=== PATIENT | female | born 1935 | race Hispanic/Latino ===

== ENCOUNTER 2016-06-17 15:19 | Inpatient (IN) | payer OTHER ==
[2016-06-17 18:38] VITALS: BMI 26.5
[2016-06-17] MEDS ORDERED: Pneumococcal 23-Valent Vaccine IM ONE (18:38)
[2016-06-17] MEDS ORDERED: Influenza Vaccine 45 MCG/0.5 ml IM ONE (18:38)
[2016-06-17] MEDS: Insulin Reg-LOW-Coverage SC SCH ×2 (18:56→21:42)
[2016-06-17] MEDS: Budesonide 0.5 mg/2 ml Inhal Susp UD IH SCH (19:58)
[2016-06-17] MEDS: Arformoterol 15 mcg/2 ml Inh Sol IH SCH (19:58)
[2016-06-17] MEDS ORDERED: Linezolid 600 mg in D5W 300 ml 300 ML IVPB SCH (22:00)
[2016-06-18] MEDS: Levothyroxine 50 MCG TAB PO SCH (05:24)
[2016-06-18] MEDS: Linezolid 600 mg in D5W 300 ml 300 ML IVPB SCH ×2 (05:25→17:44)
[2016-06-18] MEDS: Budesonide 0.5 mg/2 ml Inhal Susp UD IH SCH (07:16)
[2016-06-18] MEDS: Arformoterol 15 mcg/2 ml Inh Sol IH SCH ×2 (07:16→20:32)
[2016-06-18] MEDS: Insulin Reg-LOW-Coverage SC SCH ×4 (07:20→22:37)
[2016-06-18] MEDS ORDERED: Albuterol-Ipratrop 3 mg / 0.5 (3 ml) UD IH PRN (07:29)
[2016-06-18] MEDS: POLYETHYLENE GLYCOL 3350 17 GM/Dose PACKET PO SCH (10:27)
--- NOTE | 2016-06-18 10:57 | CP.PCM.CON ---
History of Present Illness - History of Present Illness History of Present Illness: 81 year old female with PMH of HTN, DM, CAD with chronic CHF, ESRD on HD initially came in to [facility] with cough and SOB and is being treated for probable healthcare-associated pneumonia. She has improved on antibiotics and is now transferred to [facility] for continued medical therapy and physical rehabilitation. Infectious diseases consult is requested to continue her antibiotic therapy. Currently she is feeling somewhat better with less cough and less shortness of breath. She has no fevers, no headache or dizziness , no blurring of vision, no chest pain, no dysuria, no hematuria, no diarrhea, no abdominal pain. Review of Systems - Review of Systems All systems: reviewed and no additional remarkable complaints except (as per HPI ) Past Patient History - Infectious Disease Hx of Infectious Diseases: None - Tetanus Immunizations Tetanus Immunization: Unknown - Past Social History Smoking Status: Never Smoked - CARDIAC Hx Cardiac Disorders: Yes Hx Congestive Heart Failure: Yes Hx Hypercholesterolemia: Yes Hx Hypertension: Yes - PULMONARY Hx Chronic Obstructive Pulmonary Disease (COPD): Yes - NEUROLOGICAL Hx Neurological Disorder: Yes Hx Dizziness: Yes Other/Comment: numbness tingling left leg and left foot - HEENT Hx HEENT Problems: Yes Hx Cataracts: Yes (b/l sx) - RENAL Hx Renal Failure: Yes - ENDOCRINE/METABOLIC Hx Diabetes Mellitus Type 2: Yes Hx Hypothyroidism: Yes - HEMATOLOGICAL/ONCOLOGICAL Hx Blood Disorders: Yes Hx Anemia: Yes - INTEGUMENTARY Hx Dermatological Problems: Yes Other/Comment: age spots to face chest arms legs - MUSCULOSKELETAL/RHEUMATOLOGICAL Hx Falls: Yes (past) - GASTROINTESTINAL Hx Gastrointestinal Disorders: Yes (DIVERTICULOSIS,DIVERTICULITIS,CONSTIPATION, RECTAL BLEED,HEMORRHOIDS) - GENITOURINARY/GYNECOLOGICAL Hx Genitourinary Disorders: Yes (ESRD ON HD,UTI,OLIGURIA) Hx Reproductive Disorders: No - PSYCHIATRIC Hx Substance Use: No - SURGICAL HISTORY Hx Cardiac Catheterization: Yes Hx Coronary Stent: Yes (left carotid) Hx Joint Replacement: Yes (left hip replacement) Other/Comment: left arm av shunt - ANESTHESIA Hx Anesthesia Reactions: No Hx Malignant Hyperthermia: No Meds Allergies/Adverse Reactions: Allergies Allergy/AdvReac Type Severity Reaction Status Date / Time ceftriaxone Allergy ITCHING Verified 06/17/16 16:59 - Medications Medications: Current Medications Acetaminophen (Tylenol 325mg Tab) 650 mg PO Q6H PRN PRN Reason: Pain, moderate (4-7) Amlodipine Besylate (Norvasc) 5 mg PO 0800 [facility] Arformoterol Tartrate (Brovana) 15 mcg IH [id number] [facility] Last Admin: 06/17/16 19:58 Dose: 15 mcg Aspirin (Aspirin Chewable) 81 mg PO 0800 [facility] Atorvastatin Calcium (Lipitor) 20 mg PO DIN [facility] Last Admin: 06/17/16 18:56 Dose: Not Given Budesonide (Pulmicort Respules) 0.5 mg IH [id number] [facility] Last Admin: 06/17/16 19:58 Dose: 0.5 mg Calcium Acetate (Phoslo) 1,334 mg PO TID [facility] Last Admin: 06/17/16 18:56 Dose: Not Given Carvedilol (Coreg) 25 mg PO 0800,1800 [facility] Last Admin: 06/17/16 18:55 Dose: Not Given Fenofibrate (Tricor) 145 mg PO DAILY [facility] Gabapentin (Neurontin) 100 mg PO HS [facility] PRN Reason: Protocol Last Admin: 06/17/16 21:43 Dose: 100 mg Aztreonam 500 mg/ Sodium (Chloride) 100 mls @ 100 mls/hr IVPB Q8 [facility] PRN Reason: Protocol Stop: 06/20/16 22:01 Last Admin: 06/18/16 05:23 Dose: 100 mls/hr Linezolid (Zyvox 600mg/300ml D5w) 300 mls @ 200 mls/hr IVPB 0600,1800 [facility] PRN Reason: Protocol Stop: 06/21/16 06:01 Last Admin: 06/18/16 05:25 Dose: 200 mls/hr Insulin Human Regular (Humulin R Low) 0 units SC ACHS [facility] PRN Reason: Protocol Last Admin: 06/17/16 21:42 Dose: Not Given Isosorbide Mononitrate (Imdur) 30 mg PO 0600 [facility] Last Admin: 06/18/16 05:24 Dose: 30 mg Levothyroxine Sodium (Synthroid) 50 mcg PO 0600 [facility] Last Admin: 06/18/16 05:24 Dose: 50 mcg Ondansetron HCl (Zofran Inj) 4 mg IVP Q6H PRN PRN Reason: Nausea/Vomiting Polyethylene Glycol (Miralax) 17 gm PO DAILY [facility] Prednisone (Prednisone Tab) 20 mg PO 0800 [facility] Physical Exam - Constitutional Appears: Non-toxic, No Acute Distress - Head Exam Head Exam: NORMAL INSPECTION - ENT Exam ENT Exam: Mucous Membranes Moist - Neck Exam Neck exam: Negative for: Lymphadenopathy, Meningismus - Respiratory Exam Respiratory Exam: Decreased Breath Sounds (with some crackles at the bases) - Cardiovascular Exam Cardiovascular Exam: +S1, +S2 - GI/Abdominal Exam GI & Abdominal Exam: Soft. absent: Tenderness Results - Vital Signs Recent Vital Signs: Last Vital Signs Temp 97.8 F 06/18/16 06:00 Pulse 52 L 06/18/16 06:00 Resp 18 06/18/16 06:00 BP 157/58 H 06/18/16 06:00 Pulse Ox 99 06/18/16 06:00 - Labs Labs: Laboratory Results - last 24 hr 06/18/16 05:14 POC Glucose (mg/dL) 103 Assessment & Plan - Assessment and Plan (Free Text) Plan: Assessment Consider healthcare-associated pneumonia (right upper lobe, bilateral lower lobes), improving clinically HTN DM CAD with chronic CHF ESRD on HD Plan continue Zyvox and Azactam (day 5); blood cx are negative - will target up to 7 days of therapy and will start considering d/c of antibiotics in the next 24-48 hours as long as she continues to be clinically stable and improve will continue to monitor platelet count which has not changed significantly Will continue to follow clinically
[2016-06-18] MEDS: Albuterol-Ipratrop 3 mg / 0.5 (3 ml) UD IH SCH ×3 (13:19→20:32)
[2016-06-18] MEDS: Oxycodone/Acetaminophen 2.5/325 mg Tab PO PRN (16:05)
--- NOTE | 2016-06-18 16:41 | HP ---
HISTORY OF PRESENT ILLNESS: This is an 81-year-old female admitted to [facility] with a history of shortness of breath and chest discomfort. She was treated for volume overload and bilater al pleural effusions and probable hospital community-acquired pneumonia. The patient has been transf erred to the transitional care unit where she will continue her antibiotic therapy and receive occupa tional and physical therapy. PAST MEDICAL HISTORY: Carotid disease, arteriosclerotic heart disease, ischemic heart disease, hyper lipidemia, peripheral neuropathy, diabetes mellitus insulin-dependent, constipation, diverticulosis, diverticulitis, hypothyroid disease, COPD. SOCIAL HISTORY: Nonsmoker, nondrinker, nondrug user. ALLERGIES: CEFTRIAXONE. CURRENT MEDICATIONS: Consist of Ecotrin 81 mg daily, Azactam q.8, Brovana 15 mcg q.12, Coreg 25 mg b .i.d., albuterol treatments q.6 hours and q.2 p.r.n., insulin sliding scale, Imdur 30 mg daily, Lipit or 20 mg at dinnertime, MiraLax 17 grams daily, Neurontin 100 mg at bedtime, Norvasc 5 mg daily, Phos Lo 1334 mg with meals, prednisone 20 mg daily, Protonix IV q.12, Synthroid 50 mcg daily, Tricor 145 m g daily, Tylenol 325 two tabs q.6 for moderate pain, Zofran p.r.n. q.6 and Zyvox b.i.d. PHYSICAL EXAMINATION: NEUROLOGIC: The patient is alert and oriented x 3. NECK: Supple. LUNGS: Show some diminished breath sounds at the right base. HEART: Has an S1, S2 rhythm. ABDOMEN: Soft, scaphoid with positive bowel sounds. EXTREMITIES: No evidence of edema. LABORATORY DATA: Her morning blood sugar was 103. Will initiate chest PT for the consolidation at the base of the patient's lungs with continuation of her respiratory therapy. She will continue to be followed by renal, GI, cardiology, pulmonary and in fectious disease. She is being dialyzed on a daily basis, as the patient finds at times that there i s a decrease in her blood pressure when she goes on to dialysis and they not able to fully dialyze th e patient. Continue current level of supportive care. Shavonne Ascencio MD cc: [id number] TT: 06/18/2016 16:41:06 dn
[2016-06-19] MEDS: Albuterol-Ipratrop 3 mg / 0.5 (3 ml) UD IH SCH ×2 (02:05→07:16)
[2016-06-19] MEDS: Linezolid 600 mg in D5W 300 ml 300 ML IVPB SCH ×2 (05:06→19:16)
[2016-06-19] MEDS: Levothyroxine 50 MCG TAB PO SCH (05:07)
[2016-06-19] MEDS: Pantoprazole 20 mg EC Tab PO SCH (05:39)
[2016-06-19] MEDS: Insulin Reg-LOW-Coverage SC SCH ×4 (06:44→22:17)
[2016-06-19] MEDS: Arformoterol 15 mcg/2 ml Inh Sol IH SCH ×2 (07:16→20:36)
[2016-06-19] MEDS ORDERED: Pantoprazole 20 mg EC Tab PO SCH (07:30)
--- NOTE | 2016-06-19 08:52 | CP.PCM.PN ---
Subjective - Date & Time of Evaluation Date of Evaluation: 06/19/16 Time of Evaluation: 08:00 - Subjective Subjective: Stable in TCU, eating breakfast. Still feels weak with int. SOB. V/S noted. PE: Lungs: rhonchi, decreased BS bases Cor.: S1S2 Abd.: soft Ext.: no edema Neuro.: alert Objective - Vital Signs/Intake and Output Vital Signs (last 24 hours): Temp Pulse Resp BP Pulse Ox 98 F 53 L 20 140/51 L 99 06/18/16 15:54 06/19/16 08:05 06/18/16 15:54 06/19/16 08:05 06/18/16 12:03 - Medications Medications: Current Medications Acetaminophen (Tylenol 325mg Tab) 650 mg PO Q6H PRN PRN Reason: Pain, moderate (4-7) Last Admin: 06/18/16 14:40 Dose: 650 mg Albuterol/Ipratropium (Duoneb 3 Mg/0.5 Mg (3 Ml) Ud) 3 ml IH [id number] [facility] Last Admin: 06/19/16 07:16 Dose: 3 ml Albuterol/Ipratropium (Duoneb 3 Mg/0.5 Mg (3 Ml) Ud) 3 ml IH Q2H PRN PRN Reason: Shortness of Breath Last Admin: 06/18/16 16:05 Dose: 3 ml Amlodipine Besylate (Norvasc) 5 mg PO 0800 [facility] Last Admin: 06/19/16 08:05 Dose: Not Given Arformoterol Tartrate (Brovana) 15 mcg IH [id number] [facility] Last Admin: 06/19/16 07:16 Dose: 15 mcg Aspirin (Aspirin Chewable) 81 mg PO 0800 [facility] Last Admin: 06/19/16 08:03 Dose: 81 mg Atorvastatin Calcium (Lipitor) 20 mg PO DIN [facility] Last Admin: 06/18/16 16:09 Dose: 20 mg Calcium Acetate (Phoslo) 1,334 mg PO WM [facility] Last Admin: 06/19/16 08:06 Dose: 1,334 mg Carvedilol (Coreg) 25 mg PO 0800,1800 [facility] Last Admin: 06/19/16 08:04 Dose: Not Given Fenofibrate (Tricor) 145 mg PO DAILY [facility] Last Admin: 06/18/16 10:25 Dose: 145 mg Gabapentin (Neurontin) 100 mg PO HS [facility] PRN Reason: Protocol Last Admin: 06/18/16 21:30 Dose: 100 mg Aztreonam 500 mg/ Sodium (Chloride) 100 mls @ 100 mls/hr IVPB Q8 [facility] PRN Reason: Protocol Stop: 06/20/16 22:01 Last Admin: 06/19/16 05:06 Dose: 100 mls/hr Linezolid (Zyvox 600mg/300ml D5w) 300 mls @ 200 mls/hr IVPB 0600,1800 [facility] PRN Reason: Protocol Stop: 06/21/16 06:01 Last Admin: 06/19/16 05:06 Dose: 200 mls/hr Insulin Human Regular (Humulin R Low) 0 units SC ACHS [facility] PRN Reason: Protocol Last Admin: 06/19/16 06:44 Dose: 2 units Isosorbide Mononitrate (Imdur) 30 mg PO 0600 [facility] Last Admin: 06/19/16 05:07 Dose: 30 mg Levothyroxine Sodium (Synthroid) 50 mcg PO 0600 [facility] Last Admin: 06/19/16 05:07 Dose: 50 mcg Oxycodone/Acetaminophen (Percocet 2.5/325 Mg Tab) 1 tab PO Q6H PRN PRN Reason: Pain, severe (8-10) Last Admin: 06/18/16 16:05 Dose: 1 tab Pantoprazole Sodium (Protonix Ec Tab) 20 mg PO 0630 [facility] Last Admin: 06/19/16 05:39 Dose: 20 mg Polyethylene Glycol (Miralax) 17 gm PO DAILY [facility] Last Admin: 06/18/16 10:27 Dose: Not Given Prednisone (Prednisone Tab) 20 mg PO 0800 [facility] Last Admin: 06/19/16 08:06 Dose: 20 mg Assessment and Plan - Assessment and Plan (Free Text) Plan: Assessment: Dyspnea Pleural Effusions CKD/HD: currently daily HD/UF CAD CP/+ trops Moderate MR HBP Diabetes H/O GIB/angiodysplasias/diverticulitis Anemia PN Hypothyroidism Plan: As per renal: daily HD/UF > neg. balance As per Dr. Ascencio, Pulm., ID, GI. Monitor: labs, BSs, I/O, CBC, etc. Will follow.
[2016-06-19] MEDS: POLYETHYLENE GLYCOL 3350 17 GM/Dose PACKET PO SCH (09:37)
--- NOTE | 2016-06-19 11:00 | PN ---
DATE: 06/19/2016 The patient is doing well on transitional care unit without any significant change. She does have intermittent shortness of breath and wheezing. She is taking her inhaled bronchodilators. She is presumed to have a community- acquired pneumonia and is being evaluated now by infectious disease specialist. PAST HISTORY: Has been reviewed. She has a history of ischemic heart disease, diabetes mellitus, diverticular disease, and COPD. PHYSICAL EXAMINATION: GENERAL: She is resting comfortably, in no acute respiratory distress. LUNGS: Show diminished breath sounds throughout, but no wheezing is appreciated. HEART: Regular rhythm. S1, S2 without murmur, gallop, or rub. ABDOMEN: Soft. Bowel sounds normoactive without mass, guarding, rebound, or organomegaly. : No urinary issues SKIN: No rashes. Dry, intact EXTREMITIES: Reveal no clubbing, cyanosis, or edema. There is negative Homans ' sign. CLINICAL IMPRESSION: 1. Chronic obstructive pulmonary disease. 2. Possible pneumonitis. 3. Intermittent bronchospasm. PLAN: Will await further recommendations by infectious disease and decide regarding antibiotics. Will continue bronchodilators as ordered. We will make appropriate adjustments as necessary. Thank you for allowing me to participate in the care of this patient. We will follow closely with you. Jamie Malone MD cc: [phone] TT: 06/19/2016 11:00:04 Confirmation # [id number] Dictation # [id number] jn MELANIE
--- NOTE | 2016-06-19 16:20 | CP.PCM.PN ---
Subjective - Date & Time of Evaluation Date of Evaluation: 06/19/16 Time of Evaluation: 07:50 - Subjective Subjective: Comfortable in bed, not in distress, much improved cough and not short of breath at rest. Objective - Vital Signs/Intake and Output Vital Signs (last 24 hours): Temp Pulse Resp BP Pulse Ox 98 F 53 L 20 140/51 L 99 06/18/16 15:54 06/19/16 08:05 06/18/16 15:54 06/19/16 08:05 06/18/16 12:03 - Medications Medications: Current Medications Acetaminophen (Tylenol 325mg Tab) 650 mg PO Q6H PRN PRN Reason: Pain, moderate (4-7) Last Admin: 06/18/16 14:40 Dose: 650 mg Albuterol/Ipratropium (Duoneb 3 Mg/0.5 Mg (3 Ml) Ud) 3 ml IH [id number] [facility] Last Admin: 06/19/16 07:16 Dose: 3 ml Albuterol/Ipratropium (Duoneb 3 Mg/0.5 Mg (3 Ml) Ud) 3 ml IH Q2H PRN PRN Reason: Shortness of Breath Last Admin: 06/18/16 16:05 Dose: 3 ml Amlodipine Besylate (Norvasc) 5 mg PO 0800 [facility] Last Admin: 06/19/16 08:05 Dose: Not Given Arformoterol Tartrate (Brovana) 15 mcg IH [id number] [facility] Last Admin: 06/19/16 07:16 Dose: 15 mcg Aspirin (Aspirin Chewable) 81 mg PO 0800 [facility] Last Admin: 06/19/16 08:03 Dose: 81 mg Atorvastatin Calcium (Lipitor) 20 mg PO DIN [facility] Last Admin: 06/18/16 16:09 Dose: 20 mg Calcium Acetate (Phoslo) 1,334 mg PO WM [facility] Last Admin: 06/19/16 08:06 Dose: 1,334 mg Carvedilol (Coreg) 25 mg PO 0800,1800 [facility] Last Admin: 06/19/16 08:04 Dose: Not Given Fenofibrate (Tricor) 145 mg PO DAILY [facility] Last Admin: 06/18/16 10:25 Dose: 145 mg Gabapentin (Neurontin) 100 mg PO HS [facility] PRN Reason: Protocol Last Admin: 06/18/16 21:30 Dose: 100 mg Aztreonam 500 mg/ Sodium (Chloride) 100 mls @ 100 mls/hr IVPB Q8 [facility] PRN Reason: Protocol Stop: 06/20/16 22:01 Last Admin: 06/19/16 05:06 Dose: 100 mls/hr Linezolid (Zyvox 600mg/300ml D5w) 300 mls @ 200 mls/hr IVPB 0600,1800 [facility] PRN Reason: Protocol Stop: 06/21/16 06:01 Last Admin: 06/19/16 05:06 Dose: 200 mls/hr Insulin Human Regular (Humulin R Low) 0 units SC ACHS [facility] PRN Reason: Protocol Last Admin: 06/19/16 06:44 Dose: 2 units Isosorbide Mononitrate (Imdur) 30 mg PO 0600 [facility] Last Admin: 06/19/16 05:07 Dose: 30 mg Levothyroxine Sodium (Synthroid) 50 mcg PO 0600 [facility] Last Admin: 06/19/16 05:07 Dose: 50 mcg Oxycodone/Acetaminophen (Percocet 2.5/325 Mg Tab) 1 tab PO Q6H PRN PRN Reason: Pain, severe (8-10) Last Admin: 06/18/16 16:05 Dose: 1 tab Pantoprazole Sodium (Protonix Ec Tab) 20 mg PO 0630 [facility] Last Admin: 06/19/16 05:39 Dose: 20 mg Polyethylene Glycol (Miralax) 17 gm PO DAILY [facility] Last Admin: 06/18/16 10:27 Dose: Not Given Prednisone (Prednisone Tab) 20 mg PO 0800 [facility] Last Admin: 06/19/16 08:06 Dose: 20 mg - Constitutional Appears: Non-toxic, No Acute Distress - Head Exam Head Exam: NORMAL INSPECTION - Neck Exam Neck Exam: absent: Meningismus - Respiratory Exam Respiratory Exam: Decreased Breath Sounds - Cardiovascular Exam Cardiovascular Exam: +S1, +S2 - GI/Abdominal Exam GI & Abdominal Exam: Soft. absent: Tenderness Assessment and Plan - Assessment and Plan (Free Text) Plan: Assessment Consider healthcare-associated pneumonia (right upper lobe, bilateral lower lobes), improving clinically HTN DM CAD with chronic CHF ESRD on HD Plan continue Zyvox and Azactam (day 6); blood cx are negative - will target up to 7 days of therapy and will start considering d/c of antibiotics in the next 24 hours as long as she continues to be clinically stable and improve Will continue to follow clinically
--- NOTE | 2016-06-19 17:42 | PN ---
DATE: 06/19/2016 Seen and examined at the bedside earlier today. The grandson was there. The patient denies nausea, vomiting. Mostly complaining about her breathing, but she is not in any respiratory distress. She i s eating lunch. Reported to have bowel movement yesterday. No complaints of rectal bleeding. VITAL SIGNS: Temperature 97.4, blood pressure 130/43, pulse 53, respirations 18, 98% on nasal cannul a. No new labs are noted for today except for POC glucose at 215. PHYSICAL EXAMINATION: HEENT: Sclera is anicteric. NECK: Supple. CARDIAC: S1, S2. LUNG SOUNDS: With decreased breath sounds. Positive rhonchi. ABDOMEN: Soft, not distended, minimal tenderness to left quadrant. No rebound or guarding. EXTREMITIES: No edema. ASSESSMENT: Pleural effusion, chronic kidney disease on hemodialysis, coronary artery disease, anemi a, history of gastrointestinal bleed, angiodysplasia, diverticulitis, chronic constipation. PLAN: Continue MiraLax daily. The patient is on IV antibiotics Azactam. She is on aspirin, on Prot nick 20 daily, linezolid IV antibiotics and prednisone. Continue renal diet as tolerated. As per ca rdiology, pulmonology, renal and ID. Seen and examined with Dr. Theodore. Starr STEPHENSON cc: [phone] TT: 06/19/2016 17:41:53 Confirmation # [id number] Dictation # [id number] en
--- NOTE | 2016-06-19 19:03 | CON ---
DATE: 06/19/2016 REASON FOR CONSULTATION: Bilateral pleural effusions. HISTORY OF PRESENTING ILLNESS: An 81-year-old lady who was initially seen on the medical side when s he came in with shortness of breath, dyspnea on exertion. She was thought to have pneumonia and CHF. She was being treated with IV antibiotics and increased ultrafiltration on dialysis. She had a CT scan of her chest done on 06/17/2016, which showed bilateral large pleural effusions. Also showing bi lateral lower lobe consolidations. At this time, patient is complaining of shortness of breath. She is complaining of orthopnea. She is complaining of dyspnea on exertion. She denies any fever, chills. She complains of cough. PAST MEDICAL AND SURGICAL HISTORY: NIDDM, hypertension, coronary artery disease, congestive heart fa ilure, ESRD, recurrent pneumonia, COPD, anemia. FAMILY HISTORY: Noncontributory. SOCIAL HISTORY: No smoking, no alcohol use, no IV drug abuse. ALLERGIES: CEFTRIAXONE. CURRENT MEDICATIONS: Aztreonam 500 q. 8, Brovana, Coreg 25 b.i.d., insulin, Imdur, Lipitor 20, Neuro ntin 100, amlodipine 5, PhosLo 2 tabs 3 times a day with meals, prednisone 20, Protonix 20, Pulmicort , Synthroid, Tricor, Tylenol, Zyvox. REVIEW OF SYSTEMS: All systems are reviewed, pertinent positives are mentioned in the history of pre senting illness, rest unremarkable. PHYSICAL EXAMINATION: GENERAL: Elderly lady, sitting in chair, in mild respiratory distress. VITAL SIGNS: Blood pressure 130/43, heart rate 53, respiratory rate 18, temperature 97.4. HEENT: Normocephalic, atraumatic, positive pallor. NECK: Supple, no JVD. LUNGS: Bilateral equal air entry, bilateral crackles at bases. CARDIAC: S1, S2, regular rate and rhythm, no murmur, no rub. ABDOMEN: Obese, distended, soft, nontender, bowel sounds present. EXTREMITIES: No lower extremity edema. LABORATORY DATA: No new labs available. CT scan of the chest showing bilateral large pleural effusions and bilateral lower lobe consolidation s. ASSESSMENT: 1. Bilateral large pleural effusions. 2. ? Bilateral lower lobe pneumonia. 3. Congestive heart failure/volume overload. 4. Non-insulin dependent diabetes mellitus. 5. Hypertension. 6. Coronary artery disease. 7. End-stage renal disease. PLAN: 1. Daily dialysis/ultrafiltration. 2. Antibiotics as per infectious disease recommendations. 3. Repeat CT chest in 1 week. 4. Continue current antihypertensives. 5. Physical therapy. Barbi Linares MD cc: [phone] TT: 06/19/2016 19:02:48 Confirmation # [id number] Dictation # [id number] en
[2016-06-19] MEDS: Budesonide 0.25 mg/2 ml Inhal Susp UD IH SCH (20:36)
--- NOTE | 2016-06-19 22:57 | PN ---
DATE: 06/19/2016 An 81-year-old female sitting in a chair this morning on transitional care unit. She seems to be a l ittle bit more comfortable. States that her breathing is a little bit better today. She has had osorio lysis and feels that dialysis has been helping her. PHYSICAL EXAMINATION: VITAL SIGNS: Her temp is 97.4, her pulse is 53, her blood pressure is 130/43, oxygen sat is 98% on 2 liters of nasal oxygen. NECK: Supple. LUNGS: Show rhonchi with diminished breath sounds at the bases. HEART: Has an S1, S2 rhythm. ABDOMEN: Soft with positive bowel sounds. EXTREMITIES: Show no evidence of edema. NEUROLOGIC: She is alert and oriented x 3. Her blood sugar was 215. She is being followed by infectious disease and being treated for probable community-acquired pneumonia, bronchitis. She is being followed by pulmonary as well. Renal is foll owing the patient and has recommended daily dialysis at this time while in the hospital, and she is a lso being followed by GI with a history of hemorrhoids, diverticulosis, reflux. CURRENT MEDICATIONS: Consist of Ecotrin 81 mg daily, Azactam q. 8 hours, Brovana 15 mcg p.o. q. 12, Coreg 25 mg b.i.d. She is on a sliding insulin scale, Imdur 30 mg daily, Lipitor 20 mg at dinnertim e, MiraLax 17 grams daily, Neurontin 100 mg at bedtime, Norvasc 5 mg daily, Percocet p.r.n. q. 6 remigio rs p.r.n. She is also on PhosLo with meals, prednisone 20 mg daily, Protonix 20 mg daily, budesonide twice a day, Synthroid 50 mcg daily, Tricor daily and Zyvox IV, Tylenol p.r.n. for moderate pain. ASSESSMENT AND PLAN: We will continue to monitor the patient closely. She is being followed by reynaldo castellanos, GI, cardiology and infectious disease. We will initiate the patient's insulin therapy and closely monitor her blood sugars. The CT of the chest report is noted. She has a past medical history of c hronic kidney disease, ischemic heart disease, carotid disease, peripheral neuropathy, hyperlipidemia , insulin-dependent diabetes, chronic obstructive pulmonary disease, pneumonia, congestive heart fail ure, chronic kidney disease. Shavonne Ascencio MD cc: [id number] TT: 06/19/2016 22:56:54 Confirmation # [id number] Dictation # [id number] hn
[2016-06-20] MEDS: Linezolid 600 mg in D5W 300 ml 300 ML IVPB SCH ×2 (05:19→19:17)
[2016-06-20] MEDS: Levothyroxine 50 MCG TAB PO SCH (05:20)
[2016-06-20] MEDS: Pantoprazole 20 mg EC Tab PO SCH (05:32)
[2016-06-20 06:57] LABS: ADD MANUAL DIFF? NO
[2016-06-20 07:11] LABS: CALCIUM 7.4 mg/dL (8.4-10.5); POTASSIUM 4.1 mmol/L (3.6-5.0)
[2016-06-20 07:18] LABS: EOS # 0.1 (0.0-0.7); EOS % 0.7 % (1.5-5.0); GRAN # 5.23 (1.4-6.5); GRAN % 73.4 % (50.0-68.0); HEMATOCRIT 29.6 % (36.0-48.0); LYMPH # 1.4 (1.2-3.4); LYMPH % 19.9 % (22.0-35.0); MEAN CELL VOLUME 102.1 fL (80.0-105.0); MEAN CORPUSCULAR HEMOGLOBIN 33.1 pg (25.0-35.0); MEAN CORPUSCULAR HGB CONC 32.4 g/dl (31.0-37.0); MEAN PLATELET VOLUME 9.8 fl (7.0-11.0); MONO # 0.4 (0.1-0.6); PLATELET COUNT 111 10^3/uL (120.0-450.0); WHITE BLOOD COUNT 7.1 10^3/ul (4.5-11.0)
[2016-06-20] MEDS: Arformoterol 15 mcg/2 ml Inh Sol IH SCH ×2 (07:24→20:39)
[2016-06-20] MEDS: Budesonide 0.25 mg/2 ml Inhal Susp UD IH SCH ×2 (07:24→20:39)
--- NOTE | 2016-06-20 07:27 | CP.PCM.PN ---
Subjective - Date & Time of Evaluation Date of Evaluation: 06/20/16 Time of Evaluation: 08:00 - Subjective Subjective: Stable in TCU. She feels better. No CP. Less SOB. HD yesterday. + ambulation/PT V/S noted. PE: Lungs: rhonchi, decreased BS bases Cor.: S1S2 Abd.: soft Ext.: no edema Neuro.: alert Labs noted: K+= 4.1, Cr.= 3.9 Objective - Vital Signs/Intake and Output Vital Signs (last 24 hours): Temp Pulse Resp BP Pulse Ox 97.9 F 54 L 18 125/32 L 100 06/20/16 06:00 06/20/16 06:00 06/20/16 06:00 06/20/16 06:00 06/20/16 06:00 - Medications Medications: Current Medications Acetaminophen (Tylenol 325mg Tab) 650 mg PO Q6H PRN PRN Reason: Pain, moderate (4-7) Last Admin: 06/18/16 14:40 Dose: 650 mg Amlodipine Besylate (Norvasc) 5 mg PO 0800 [facility] Last Admin: 06/19/16 08:05 Dose: Not Given Arformoterol Tartrate (Brovana) 15 mcg IH [id number] [facility] Last Admin: 06/19/16 20:36 Dose: 15 mcg Aspirin (Aspirin Chewable) 81 mg PO 0800 [facility] Last Admin: 06/19/16 08:03 Dose: 81 mg Atorvastatin Calcium (Lipitor) 20 mg PO DIN [facility] Last Admin: 06/19/16 18:16 Dose: Not Given Budesonide (Pulmicort Respules) 0.25 mg IH BIDRESP [facility] Last Admin: 06/19/16 20:36 Dose: 0.25 mg Calcium Acetate (Phoslo) 1,334 mg PO WM [facility] Last Admin: 06/19/16 18:16 Dose: Not Given Carvedilol (Coreg) 25 mg PO 0800,1800 [facility] Last Admin: 06/19/16 19:23 Dose: 25 mg Fenofibrate (Tricor) 145 mg PO DAILY [facility] Last Admin: 06/19/16 09:38 Dose: 145 mg Gabapentin (Neurontin) 100 mg PO HS [facility] PRN Reason: Protocol Last Admin: 06/19/16 21:09 Dose: 100 mg Aztreonam 500 mg/ Sodium (Chloride) 100 mls @ 100 mls/hr IVPB Q8 [facility] PRN Reason: Protocol Stop: 06/20/16 22:01 Last Admin: 06/20/16 05:18 Dose: 100 mls/hr Linezolid (Zyvox 600mg/300ml D5w) 300 mls @ 200 mls/hr IVPB 0600,1800 [facility] PRN Reason: Protocol Stop: 06/21/16 06:01 Last Admin: 06/20/16 05:19 Dose: 200 mls/hr Insulin Human Regular (Humulin R Low) 0 units SC ACHS [facility] PRN Reason: Protocol Last Admin: 06/19/16 22:17 Dose: 2 units Isosorbide Mononitrate (Imdur) 30 mg PO 0600 [facility] Last Admin: 06/20/16 05:19 Dose: Not Given Levothyroxine Sodium (Synthroid) 50 mcg PO 0600 [facility] Last Admin: 06/20/16 05:20 Dose: 50 mcg Oxycodone/Acetaminophen (Percocet 2.5/325 Mg Tab) 1 tab PO Q6H PRN PRN Reason: Pain, severe (8-10) Last Admin: 06/18/16 16:05 Dose: 1 tab Pantoprazole Sodium (Protonix Ec Tab) 20 mg PO 0630 [facility] Last Admin: 06/20/16 05:32 Dose: 20 mg Polyethylene Glycol (Miralax) 17 gm PO DAILY [facility] Last Admin: 06/19/16 09:37 Dose: Not Given Prednisone (Prednisone Tab) 20 mg PO 0800 [facility] Last Admin: 06/19/16 08:06 Dose: 20 mg - Labs Labs: 06/20/16 06:30 06/20/16 06:30 Assessment and Plan - Assessment and Plan (Free Text) Plan: Assessment: Dyspnea Pleural Effusions CKD/HD: currently daily HD/UF CAD CP/+ trops Moderate MR HBP Diabetes H/O GIB/angiodysplasias/diverticulitis Anemia PN Hypothyroidism Plan: As per renal: continue daily HD/UF > neg. balance As per Dr. Ascencio, Pulm., ID, GI. Monitor: labs, BSs, I/O, CBC, etc. Will follow.
[2016-06-20] MEDS: Insulin Reg-LOW-Coverage SC SCH ×4 (07:32→22:03)
[2016-06-20] MEDS: POLYETHYLENE GLYCOL 3350 17 GM/Dose PACKET PO SCH (09:54)
[2016-06-20] MEDS: Insulin Human NPH/Reg 70/30 Vial(3 ml) SC SCH ×2 (10:37→19:00)
--- NOTE | 2016-06-20 11:52 | PN ---
DATE: 06/20/2016 An 81-year-old female sitting comfortably in a chair this morning. She states that she is feeling a bit better, but still has some complaints of shortness of breath. PHYSICAL EXAMINATION: VITAL SIGNS: Temp is 97.9, her pulse is 56, her blood pressure is 154/50. She is wearing nasal geoffrey bharat at 2 liters with 100% saturation reported by the staff. NECK: Supple. LUNGS: Show diminished breath sounds at the bases, right more than left. HEART: Has an S1, S2 rhythm. ABDOMEN: Soft with positive bowel sounds. EXTREMITIES: No evidence of edema. NEUROLOGIC: She is alert and oriented x 3. LABORATORY DATA: Shows a WBC of 7.1, RBC 2.9, hemoglobin 9.6, hematocrit 29.6, platelet count 111. Chemistry shows a sodium of 131, potassium 4.1, chloride 93, BUN is 52, the creatinine is 3.9. Blood sugar is 75. ASSESSMENT AND PLAN: The patient is receiving daily dialysis ordered by nephrology while she is here because of the difficulty in removing enough volume during the dialysis 3 times a week because of va riations in her blood pressure. She is currently receiving IV antibiotics for community-acquired pne umonia and being followed by pulmonary and infectious disease. She is currently on Azactam and Zyvox . A CAT scan of the chest is noted as reported by pulmonary who ordered the test. Renal is recommen ding a followup of the CT of the chest. She will continue on her cardiac medications and her bowel r egimen. She is also on prednisone 20 mg daily and her Synthroid replacement therapy and she is being monitored for her diabetes. Shavonne Ascencio MD cc: [id number] TT: 06/20/2016 11:51:13 Confirmation # [id number] Dictation # [id number] shanta
--- NOTE | 2016-06-20 16:28 | PN ---
DATE: 06/20/2016 SUBJECTIVE: The patient is currently seen in the TCU sitting up in bed. She appears to be less shor t of breath with more frequent dialysis. The patient remains on antibiotic therapy. MEDICATIONS: Medication list reviewed. The patient is on aspirin, aztreonam, Brovana, Coreg, insuli n, Imdur, Lipitor, MiraLax, Neurontin, Norvasc, Percocet, PhosLo, prednisone, Protonix, Pulmicort Res pules, Synthroid, Tricor, Tylenol p.r.n. and Zyvox. OBJECTIVE: VITAL SIGNS: Blood pressure 151/46, temperature 98.2, respiratory rate 18 with a pulse of 54. HEENT: Shows her to be normocephalic, atraumatic. Conjunctivae are pale. Sclerae are nonicteric. NECK: Supple with no neck vein distention. CHEST: Scattered rhonchi and rales with decreased breath sounds at bases bilaterally. CARDIOVASCULAR: Shows a regular rate and rhythm with MR/TR. No rub. No S3, no S4. ABDOMEN: Soft. Bowel sounds normal. No rebound, no guarding, no masses. EXTREMITIES: Show a left upper extremity AV fistula, positive thrill, positive bruit. No lower extr emity cyanosis, clubbing or edema. LABORATORY DATA AND IMAGING: Chest CT scan done over the weekend shows bilateral large pleural effus ions with adjacent lower lobe consolidation. LABORATORY DATA: CBC: White blood cell count 7.1, hemoglobin 9.6, platelet count is 111,000. Chemi stries show sodium of 131, potassium 4.1, chloride 93. BUN of 52 with a creatinine of 3.9, glucose is 161, calcium is 7.4. Yesterday's phosphorus was 6.9 with a magnesium of 1.9. MICROBIOLOGY: The patient had yeast in her sputum culture back on 06/13/2016. All blood cultures wer e negative. ASSESSMENT: 1. Shortness of breath, in part secondary to pneumonitis, possible bilateral lower lobe pneumonia. Also secondary to bilateral large pleural effusions. The patient is presently receiving dialysis 3 d ays a week with ultrafiltration for 2 hours on the alternate days. One possibility is a pleural tap/ thoracentesis to help remove the pleural fluid. 2. End-stage renal disease. Labs are currently stable on dialysis. 3. Arteriosclerotic heart disease. Recent non-ST elevation myocardial infarction, history of mitral regurgitation/tricuspid regurgitation with an ejection fraction of 50%. History of congestive heart failure in the past, thought to be exacerbated by excessive fluid intake and minimal urine output. 4. Anemia. The patient will continue Aranesp per protocol. 5. Secondary hyperparathyroidism. Phosphorus level remains elevated. The patient will continue bin concha therapy and a renal diet. 6. Hypertension. The patient will continue present blood pressure medication. 7. Hypothyroidism. The patient will continue low dose thyroid replacement therapy. 8. History of diabetes mellitus. The patient is currently on insulin with close monitoring of her s ugars and use of sliding scale insulin. PLAN: 1. Discussed with dialysis staff. The patient will continue at least for the time being 6 days a we ek dialysis -- 3 days a week actual dialysis, 3 days a week ultrafiltration. 2. Can discuss with pulmonary the possibility of thoracentesis if the pleural effusions do not decre ase in size with dialysis and ultrafiltration. 3. Complete a course of antibiotic therapy under the guidance of pulmonary and infectious disease. 4. Continue rehabilitation in the TCU. Buck Yanes MD cc: [phone] TT: 06/20/2016 16:27:49 Confirmation # [id number] Dictation # [id number] sn
--- NOTE | 2016-06-20 16:57 | CP.PCM.PN ---
Subjective - Date & Time of Evaluation Date of Evaluation: 06/20/16 Time of Evaluation: 10:20 - Subjective Subjective: Comfortable on a chair, not in distress, no fevers, much improved cough. Objective - Vital Signs/Intake and Output Vital Signs (last 24 hours): Temp Pulse Resp BP Pulse Ox 97.9 F 56 L 18 154/50 H 100 06/20/16 06:00 06/20/16 07:54 06/20/16 06:00 06/20/16 07:54 06/20/16 06:00 - Medications Medications: Current Medications Acetaminophen (Tylenol 325mg Tab) 650 mg PO Q6H PRN PRN Reason: Pain, moderate (4-7) Last Admin: 06/18/16 14:40 Dose: 650 mg Amlodipine Besylate (Norvasc) 5 mg PO 0800 [facility] Last Admin: 06/20/16 07:54 Dose: Not Given Arformoterol Tartrate (Brovana) 15 mcg IH [id number] [facility] Last Admin: 06/20/16 07:24 Dose: 15 mcg Aspirin (Aspirin Chewable) 81 mg PO 0800 [facility] Last Admin: 06/20/16 07:54 Dose: 81 mg Atorvastatin Calcium (Lipitor) 20 mg PO DIN [facility] Last Admin: 06/19/16 18:16 Dose: Not Given Budesonide (Pulmicort Respules) 0.25 mg IH BIDRESP [facility] Last Admin: 06/20/16 07:24 Dose: 0.25 mg Calcium Acetate (Phoslo) 1,334 mg PO WM [facility] Last Admin: 06/20/16 07:55 Dose: 1,334 mg Carvedilol (Coreg) 25 mg PO 0800,1800 [facility] Last Admin: 06/20/16 07:54 Dose: Not Given Fenofibrate (Tricor) 145 mg PO DAILY [facility] Last Admin: 06/19/16 09:38 Dose: 145 mg Gabapentin (Neurontin) 100 mg PO HS [facility] PRN Reason: Protocol Last Admin: 06/19/16 21:09 Dose: 100 mg Aztreonam 500 mg/ Sodium (Chloride) 100 mls @ 100 mls/hr IVPB Q8 [facility] PRN Reason: Protocol Stop: 06/20/16 22:01 Last Admin: 06/20/16 05:18 Dose: 100 mls/hr Linezolid (Zyvox 600mg/300ml D5w) 300 mls @ 200 mls/hr IVPB 0600,1800 [facility] PRN Reason: Protocol Stop: 06/21/16 06:01 Last Admin: 06/20/16 05:19 Dose: 200 mls/hr Insulin Human Regular (Humulin R Low) 0 units SC ACHS [facility] PRN Reason: Protocol Last Admin: 06/20/16 07:32 Dose: Not Given Isosorbide Mononitrate (Imdur) 30 mg PO 0600 [facility] Last Admin: 06/20/16 05:19 Dose: Not Given Levothyroxine Sodium (Synthroid) 50 mcg PO 0600 [facility] Last Admin: 06/20/16 05:20 Dose: 50 mcg Oxycodone/Acetaminophen (Percocet 2.5/325 Mg Tab) 1 tab PO Q6H PRN PRN Reason: Pain, severe (8-10) Last Admin: 06/18/16 16:05 Dose: 1 tab Pantoprazole Sodium (Protonix Ec Tab) 20 mg PO 0630 [facility] Last Admin: 06/20/16 05:32 Dose: 20 mg Polyethylene Glycol (Miralax) 17 gm PO DAILY [facility] Last Admin: 06/19/16 09:37 Dose: Not Given Prednisone (Prednisone Tab) 20 mg PO 0800 [facility] Last Admin: 06/20/16 07:56 Dose: 20 mg - Labs Labs: 06/20/16 06:30 06/20/16 06:30 - Constitutional Appears: Non-toxic, No Acute Distress - Head Exam Head Exam: NORMAL INSPECTION - ENT Exam ENT Exam: Mucous Membranes Moist - Neck Exam Neck Exam: absent: Lymphadenopathy, Meningismus - Respiratory Exam Respiratory Exam: Decreased Breath Sounds - Cardiovascular Exam Cardiovascular Exam: +S1, +S2 - GI/Abdominal Exam GI & Abdominal Exam: Soft. absent: Tenderness Assessment and Plan - Assessment and Plan (Free Text) Plan: Assessment Consider healthcare-associated pneumonia (right upper lobe, bilateral lower lobes), improving clinically HTN DM CAD with chronic CHF ESRD on HD Plan continue Zyvox and Azactam (day 7); blood cx are negative - will d/c antibiotics after today Will continue to follow clinically
[2016-06-21] MEDS: Oxycodone/Acetaminophen 2.5/325 mg Tab PO PRN (05:59)
[2016-06-21] MEDS: Levothyroxine 50 MCG TAB PO SCH (05:59)
[2016-06-21] MEDS: Pantoprazole 20 mg EC Tab PO SCH (05:59)
[2016-06-21] MEDS: Linezolid 600 mg in D5W 300 ml 300 ML IVPB SCH (06:00)
[2016-06-21] MEDS: Insulin Reg-LOW-Coverage SC SCH ×3 (06:34→22:00)
[2016-06-21] MEDS: Budesonide 0.5 mg/2 ml Inhal Susp UD IH SCH ×2 (07:19→19:38)
[2016-06-21] MEDS: Arformoterol 15 mcg/2 ml Inh Sol IH SCH ×2 (07:19→19:38)
--- NOTE | 2016-06-21 09:35 | PN ---
DATE: 06/21/2016 SUBJECTIVE: The patient appears comfortable this morning. She is not short of breath at rest. PHYSICAL EXAMINATION: VITAL SIGNS: Temperature is 98.7, pulse 56, respirations 18, blood pressure 149 /47. Oxygen saturation on nasal cannula is 99%. HEENT: Normocephalic, atraumatic. No JVD. CARDIOVASCULAR: Positive S1, S2. No S3. LUNGS: Minimal crackles at the bases. Very minimal/less rhonchi. No wheezing. EXTREMITIES: Mild edema. No cyanosis, no clubbing. Calves are nontender to palpation. GASTROINTESTINAL: Abdomen is soft, nontender, nondistended. Bowel sounds are positive. SKIN: No acute rash. NEUROLOGIC: Limited at the present time. IMPRESSION: 1. Recurrent bronchitis. 2. Rule out pneumonia. 3. Chronic obstructive pulmonary disease. 4. Congestive heart failure. 5. Positive troponin, coronary artery disease. 6. End-stage renal disease. 7. Chronic anemia. PLAN: The patient appears comfortable this morning. She is not short of breath at rest. She is coughing much less. She states she is feeling much better overall. On physical exam, her bronchospasm continues to resolve. In addition, the alveolar arterial gradient also continues to resolve. Oxygen saturation on nasal cannula is now 99%-100%. I will continue with the current nebulizer treatments and decrease the oral steroids this morning. I would continue with the treatment for congestive heart failure and volume overload as per cardiology and renal. Inputs are noted. Clinical status of the patient is certainly improved -- compared to last week. However, again, the overall status/prognosis of this patient remains very guarded at best. I did discuss the above with Dr. Ascencio this morning. Joni Perkins MD cc: [phone] TT: 06/21/2016 09:35:05 Confirmation # [id number] Dictation # [id number] jn MTDD
--- NOTE | 2016-06-21 09:43 | PN ---
DATE: 06/21/2016 An 81-year-old female resting this morning on the transitional care unit. Nursing staff relates that there were no particular problems during the night. PHYSICAL EXAMINATION: VITAL SIGNS: Her temp is reported at 98.7, her pulse at 56, blood pressure is 149/47. GENERAL: She is alert and oriented x 3. NECK: This morning, supple. LUNGS: Show some rhonchi at the bases. There appears to be a little bit better air movement at the bases of the lungs compared to yesterday. HEART: Has an S1, S2 rhythm. ABDOMEN: Soft with positive bowel sounds. She is not short of breath at rest. The patient is receiving dialysis daily and it appears to be improving as a consequence of that. She is also finishing a course of IV antibiotics for a healthcare/community-acquired pneumonia. She has underlying congestive heart failure history with bilateral pleural effusions, right middle lobe infi ltrate. She is scheduled for dialysis today. She is being followed by infectious disease, pulmonary and neph rology. She is also being followed by cardiology. Currently, the patient is on Pulmicort 0.5 mg q. 12, Protonix 20 mg daily, prednisone 10 mg daily, Ph osLo 1334 mg with meals, Percocet 2.5/325 q. 6 p.r.n. for pain, Norvasc 5 mg daily, Neurontin 100 mg at bedtime, MiraLax 17 grams daily, Lipitor 20 mg daily, Imdur 30 mg daily. She is on insulin therap y and Coreg 25 mg b.i.d., Brovana and Ecotrin. We will continue to monitor the patient closely. Shavonne Ascencio MD cc: [id number] TT: 06/21/2016 09:43:08 Confirmation # [id number] Dictation # [id number] en
[2016-06-21] MEDS: Insulin Human NPH/Reg 70/30 Vial(3 ml) SC SCH (10:21)
[2016-06-21] MEDS: POLYETHYLENE GLYCOL 3350 17 GM/Dose PACKET PO SCH (10:22)
--- NOTE | 2016-06-21 12:30 | PN ---
DATE: 06/21/2016 Seen and examined in TCU earlier today. She was receiving therapy. She does report having bowel mov ement. No complaints of rectal bleeding, feeling fair. She is waiting to go for dialysis. No repor ts of any bleeding per rectum, nausea or vomiting. She is tolerating her food so far. VITAL SIGNS: Blood pressure is 137/60, pulse 62, 99 nasal cannula, afebrile. LABORATORY DATA: Labs noted are from yesterday. H and H is 9.6 and 29.6, platelets of 111. WBC 7.1 . Sodium is 131, K is 4.1, chloride 93. Her BUN is 52 and creatinine is 3.9. PHYSICAL EXAMINATION: HEENT: Sclerae are anicteric. NECK: Supple. CARDIAC: S1, S2. LUNGS: With some rhonchi, but no rales or wheeze. ABDOMEN: With bowel sounds, soft. It is not tender, no rebound or guarding. ASSESSMENT: The patient with history of congestive heart failure, bilateral pleural effusion and imp roving pneumonia. She is on IV antibiotics. She also has history of diverticulosis and diverticulit is, chronic constipation, history of angiodysplasia, anemia, end-stage renal disease on dialysis. PLAN: Continue MiraLax daily. She is getting prednisone. She is also on Protonix 20 mg daily. She is also on aspirin. She is also on antihypertensives. Currently off antibiotics. Continue diet as tolerated and she is going for dialysis today. The patient was seen and case discussed with Dr. Wiliam zafar. Starr STEPHENSON cc: [phone] TT: 06/21/2016 12:29:39 Confirmation # [id number] Dictation # [id number] tn
--- NOTE | 2016-06-21 15:15 | PN ---
DATE: 06/21/2016 SUBJECTIVE: The patient is seen lying in bed. She is awake, she is alert. She is complaining of sh ortness of breath. PHYSICAL EXAMINATION: GENERAL EXAMINATION: Elderly lady lying in bed. VITAL SIGNS: Blood pressure 152/60, heart rate 51, respiratory rate 20, temperature 97.8. HENT: Normocephalic, atraumatic. NECK: Supple, no JVD. LUNGS: Bilateral equal air entry, decreased breath sounds at bases, bilateral crackles. CARDIAC: S1, S2, regular rate and rhythm, no murmur, no rub. ABDOMEN: Obese, distended, soft, nontender, bowel sounds present. EXTREMITIES: No lower extremity edema. LABORATORY DATA: WBC 7, hemoglobin 9.6, hematocrit 29.6, platelets 111. Sodium 131, potassium 4.1, chloride 93, CO2 of 23, BUN 52, creatinine 3.9, glucose 161, calcium 7.4. CURRENT MEDICATIONS: Aspirin, Brovana, Coreg, insulin, Imdur, Lipitor, MiraLax, Neurontin, Norvasc, PhosLo, prednisone, Protonix, aztreonam, Zyvox. ASSESSMENT: 1. Bilateral large pleural effusions. 2. Bilateral lower lobe consolidations/pneumonia. 3. Congestive heart failure. 4. Non-insulin dependent diabetes mellitus. 5. Hypertension. 6. End-stage renal disease. PLAN: 1. The patient requires daily dialysis/ultrafiltration to enable removal of fluid because the patient developed severe hypotension during dialysis. 2. Continue antibiotics as per infectious disease recommendations. 3. Physical therapy. 4. Continue antihypertensives. 5. Continue to monitor finger sticks. Barbi Linares MD cc: [phone] TT: 06/21/2016 15:14:25 Confirmation # [id number] Dictation # [id number] tad
[2016-06-21 15:20] LABS: MEAN CELL VOLUME 99.3 fL (80.0-105.0); MEAN CORPUSCULAR HEMOGLOBIN 33.6 pg (25.0-35.0); MEAN CORPUSCULAR HGB CONC 33.8 g/dl (31.0-37.0); MEAN PLATELET VOLUME 9.4 fl (7.0-11.0); RED CELL DISTRIBUTION WIDTH 18.8 % (11.5-14.5)
[2016-06-21 15:24] LABS: ALB/GLOB RATIO 0.9 (1.1-1.8); BILIRUBIN,TOTAL 0.6 mg/dL (0.2-1.3); CALCIUM 7.1 mg/dL (8.4-10.5); MAGNESIUM 1.9 mg/dL (1.7-2.2); PHOSPHOROUS 6.2 mg/dL (2.5-4.5); POTASSIUM 5.3 mmol/L (3.6-5.0)
--- NOTE | 2016-06-21 16:34 | CP.PCM.PN ---
Subjective - Date & Time of Evaluation Date of Evaluation: 06/21/16 Time of Evaluation: 10:15 - Subjective Subjective: Comfortable in bed, afebrile, not in distress. Objective - Vital Signs/Intake and Output Vital Signs (last 24 hours): Temp Pulse Resp BP Pulse Ox 97.8 F 51 L 20 152/60 H 95 06/21/16 10:00 06/21/16 10:00 06/21/16 10:00 06/21/16 10:00 06/21/16 10:00 Intake and Output: 06/21/16 06/21/16 06:59 18:59 Intake Total 420 Balance 420 - Medications Medications: Current Medications Acetaminophen (Tylenol 325mg Tab) 650 mg PO Q6H PRN PRN Reason: Pain, moderate (4-7) Last Admin: 06/18/16 14:40 Dose: 650 mg Amlodipine Besylate (Norvasc) 5 mg PO 0800 [facility] Last Admin: 06/21/16 08:32 Dose: 5 mg Arformoterol Tartrate (Brovana) 15 mcg IH [id number] [facility] Last Admin: 06/21/16 07:19 Dose: 15 mcg Aspirin (Aspirin Chewable) 81 mg PO 0800 [facility] Last Admin: 06/21/16 08:28 Dose: 81 mg Atorvastatin Calcium (Lipitor) 20 mg PO DIN [facility] Last Admin: 06/20/16 19:19 Dose: Not Given Budesonide (Pulmicort Respules) 0.5 mg IH [id number] [facility] Last Admin: 06/21/16 07:19 Dose: 0.5 mg Calcium Acetate (Phoslo) 1,334 mg PO WM [facility] Last Admin: 06/21/16 11:53 Dose: 1,334 mg Carvedilol (Coreg) 25 mg PO 0800,1800 [facility] Last Admin: 06/21/16 08:30 Dose: 25 mg Fenofibrate (Tricor) 145 mg PO DAILY [facility] Last Admin: 06/21/16 10:25 Dose: 145 mg Gabapentin (Neurontin) 100 mg PO HS [facility] PRN Reason: Protocol Last Admin: 06/20/16 22:04 Dose: 100 mg Insulin Human Regular (Humulin R Low) 0 units SC ACHS [facility] PRN Reason: Protocol Last Admin: 06/21/16 11:51 Dose: 1 units Isosorbide Mononitrate (Imdur) 30 mg PO 0600 [facility] Last Admin: 06/21/16 05:56 Dose: Not Given Levothyroxine Sodium (Synthroid) 50 mcg PO 0600 [facility] Last Admin: 06/21/16 05:59 Dose: 50 mcg Oxycodone/Acetaminophen (Percocet 2.5/325 Mg Tab) 1 tab PO Q6H PRN PRN Reason: Pain, severe (8-10) Last Admin: 06/21/16 05:59 Dose: 1 tab Pantoprazole Sodium (Protonix Ec Tab) 20 mg PO 0630 [facility] Last Admin: 06/21/16 05:59 Dose: 20 mg Polyethylene Glycol (Miralax) 17 gm PO DAILY [facility] Last Admin: 06/21/16 10:22 Dose: Not Given Prednisone (Prednisone Tab) 10 mg PO DAILY [facility] Last Admin: 06/21/16 11:53 Dose: 10 mg - Labs Labs: 06/21/16 14:55 06/21/16 14:55 - Constitutional Appears: Non-toxic, No Acute Distress - Head Exam Head Exam: NORMAL INSPECTION - ENT Exam ENT Exam: Mucous Membranes Moist - Neck Exam Neck Exam: absent: Lymphadenopathy, Meningismus - Respiratory Exam Respiratory Exam: Decreased Breath Sounds - Cardiovascular Exam Cardiovascular Exam: +S1, +S2 - GI/Abdominal Exam GI & Abdominal Exam: Soft. absent: Tenderness Assessment and Plan - Assessment and Plan (Free Text) Plan: Assessment S/P healthcare-associated pneumonia (right upper lobe, bilateral lower lobes), improved clinically and S/P treatment HTN DM CAD with chronic CHF ESRD on HD Plan completed 7 days of Zyvox and Azactam - will continue to monitor off antibiotics since she is at risk for hospital-acquired infections
[2016-06-22] MEDS: Pantoprazole 20 mg EC Tab PO SCH (05:37)
[2016-06-22] MEDS: Levothyroxine 50 MCG TAB PO SCH (05:37)
[2016-06-22] MEDS: POLYETHYLENE GLYCOL 3350 17 GM/Dose PACKET PO SCH ×2 (05:37→09:19)
[2016-06-22] MEDS: Insulin Reg-LOW-Coverage SC SCH ×4 (06:33→22:04)
[2016-06-22] MEDS: Arformoterol 15 mcg/2 ml Inh Sol IH SCH ×2 (07:16→20:00)
[2016-06-22] MEDS: Budesonide 0.5 mg/2 ml Inhal Susp UD IH SCH ×2 (07:16→20:00)
--- NOTE | 2016-06-22 07:58 | PN ---
DATE: 06/22/2016 SUBJECTIVE: The patient appears comfortable at rest. She is not short of breath. PHYSICAL EXAMINATION: VITAL SIGNS: Temperature is 97.8, pulse 66, respirations 18, blood pressure 157 /49. Oxygen saturation on nasal cannula is 95%. HEENT: Normocephalic, atraumatic. No JVD. CARDIOVASCULAR: Positive S1, S2. No S3. LUNGS: Minimal crackles at the bases. Very minimal rhonchi. No wheezing. EXTREMITIES: Mild edema. No cyanosis. No clubbing. Calves are nontender to palpation. GASTROINTESTINAL: Abdomen is soft, nontender, nondistended. Bowel sounds are positive. SKIN: No acute rash. NEUROLOGIC: Limited at the present time. IMPRESSION: 1. Recurrent bronchitis. 2. Rule out pneumonia. 3. Chronic obstructive pulmonary disease. 4. Congestive heart failure. 5. Positive troponin, coronary artery disease. 6. End-stage renal disease. 7. Chronic anemia. PLAN: The patient appears comfortable this morning. She is not short of breath at rest. She states she is feeling much better overall. On physical exam, her bronchospasm is certainly less overall. In addition, there is no significant alveolar arterial gradient. I will continue with the current nebulizer treatments and low-dose oral steroids for now. I would continue with the renal evaluation as per Dr. Linares. Her input is noted. Clinical status of the patient is certainly improved - compared to last week. However, again, the overall status/prognosis of this patient remains very guarded at best. I will discuss the above with Dr. Ascencio. Joni Perkins MD cc: [phone] TT: 06/22/2016 07:57:14 Confirmation # [id number] Dictation # [id number] matthias NAVARRO
[2016-06-22] MEDS: Insulin Human NPH/Reg 70/30 Vial(3 ml) SC SCH ×2 (09:18→17:51)
[2016-06-22 14:25] LABS: CALCIUM 7.7 mg/dL (8.4-10.5)
--- NOTE | 2016-06-22 14:57 | CP.PCM.PN ---
Subjective - Date & Time of Evaluation Date of Evaluation: 06/22/16 Time of Evaluation: 10:10 - Subjective Subjective: Patient is breathing better, no fevers, much improved cough. Objective - Vital Signs/Intake and Output Vital Signs (last 24 hours): Temp Pulse Resp BP Pulse Ox 97.8 F 66 20 157/49 H 95 06/21/16 10:00 06/21/16 20:12 06/21/16 10:00 06/21/16 20:12 06/21/16 10:00 - Medications Medications: Current Medications Acetaminophen (Tylenol 325mg Tab) 650 mg PO Q6H PRN PRN Reason: Pain, moderate (4-7) Last Admin: 06/18/16 14:40 Dose: 650 mg Amlodipine Besylate (Norvasc) 5 mg PO 0800 [facility] Last Admin: 06/21/16 08:32 Dose: 5 mg Arformoterol Tartrate (Brovana) 15 mcg IH [id number] [facility] Last Admin: 06/22/16 07:16 Dose: 15 mcg Aspirin (Aspirin Chewable) 81 mg PO 0800 [facility] Last Admin: 06/21/16 08:28 Dose: 81 mg Atorvastatin Calcium (Lipitor) 20 mg PO DIN [facility] Last Admin: 06/21/16 20:08 Dose: 20 mg Budesonide (Pulmicort Respules) 0.5 mg IH [id number] [facility] Last Admin: 06/22/16 07:16 Dose: 0.5 mg Calcium Acetate (Phoslo) 1,334 mg PO WM [facility] Last Admin: 06/21/16 20:08 Dose: 1,334 mg Carvedilol (Coreg) 25 mg PO 0800,1800 [facility] Last Admin: 06/21/16 20:12 Dose: Not Given Fenofibrate (Tricor) 145 mg PO DAILY [facility] Last Admin: 06/21/16 10:25 Dose: 145 mg Gabapentin (Neurontin) 100 mg PO HS [facility] PRN Reason: Protocol Last Admin: 06/21/16 21:38 Dose: 100 mg Insulin Human Regular (Humulin R Low) 0 units SC ACHS [facility] PRN Reason: Protocol Last Admin: 06/22/16 06:33 Dose: Not Given Isosorbide Mononitrate (Imdur) 30 mg PO 0600 [facility] Last Admin: 06/22/16 05:37 Dose: 30 mg Levothyroxine Sodium (Synthroid) 50 mcg PO 0600 [facility] Last Admin: 06/22/16 05:37 Dose: 50 mcg Oxycodone/Acetaminophen (Percocet 2.5/325 Mg Tab) 1 tab PO Q6H PRN PRN Reason: Pain, severe (8-10) Last Admin: 06/21/16 05:59 Dose: 1 tab Pantoprazole Sodium (Protonix Ec Tab) 20 mg PO 0630 [facility] Last Admin: 06/22/16 05:37 Dose: 20 mg Polyethylene Glycol (Miralax) 17 gm PO DAILY [facility] Last Admin: 06/22/16 05:37 Dose: 17 gm Prednisone (Prednisone Tab) 10 mg PO DAILY [facility] Last Admin: 06/21/16 11:53 Dose: 10 mg - Labs Labs: 06/21/16 14:55 06/21/16 14:55 - Constitutional Appears: Non-toxic, No Acute Distress - Head Exam Head Exam: NORMAL INSPECTION - Neck Exam Neck Exam: absent: Lymphadenopathy, Meningismus - Respiratory Exam Respiratory Exam: Decreased Breath Sounds - Cardiovascular Exam Cardiovascular Exam: +S1, +S2 - GI/Abdominal Exam GI & Abdominal Exam: Soft. absent: Tenderness Assessment and Plan - Assessment and Plan (Free Text) Plan: Assessment S/P healthcare-associated pneumonia (right upper lobe, bilateral lower lobes), improved clinically and S/P treatment HTN DM CAD with chronic CHF ESRD on HD Plan completed 7 days of Zyvox and Azactam - will continue to monitor off antibiotics since she is at risk for healthcare-associated infections
--- NOTE | 2016-06-22 15:38 | PN ---
DATE: 06/22/2016 An 81-year-old female sitting on the edge of the bed in the transitional care unit states she is jacy thing a little bit better this morning. Nursing staff relates that there were no particular problems during the night. She is completing a course of antibiotics for healthcare community-acquired pneum onia. She is on dialysis 3-4 times a week. She has got a right pleural effusion. She is receiving respiratory treatments. She is alert and oriented x 3. PHYSICAL EXAMINATION: VITAL SIGNS: Show temperature of 98, blood pressure 144/43, oxygen saturation is 95% on 2 liters of nasal oxygen. LUNGS: Show diminished breath sounds at the bases, more right than left. HEART: Has S1, S2 rhythm. ABDOMEN: Soft, scaphoid with positive bowel sounds. EXTREMITIES: No evidence of edema. LABORATORY DATA: Shows electrolytes to be normal with a BUN of 57, creatinine of 4.5. Her random bl ood sugar is 170. The patient has a tendency to refuse the insulin when it is offered to her by the nurses. It has been expressed to the patient that it would be better to follow the recommendations. Will speak with the family. Her CBC shows a WBC of 7, hemoglobin 9.8, hematocrit 29, platelet count is 95,000. She continues on dialysis at this time, being followed by pulmonary, renal and infectious disease. W e will continue current level of care. Discussed with pulmonary, transitioning plans for home care a nd whether the patient will need oxygen support at home and not. Shavonne Ascencio MD cc: [id number] TT: 06/22/2016 15:38:24 Confirmation # [id number] Dictation # [id number] tad
[2016-06-22] MEDS ORDERED: POLYETHYLENE GLYCOL 3350 17 GM/Dose PACKET PO ONE (18:59)
[2016-06-23] MEDS: Levothyroxine 50 MCG TAB PO SCH (06:25)
[2016-06-23] MEDS: Pantoprazole 20 mg EC Tab PO SCH (06:25)
[2016-06-23] MEDS: Arformoterol 15 mcg/2 ml Inh Sol IH SCH ×2 (07:15→20:31)
[2016-06-23] MEDS: Budesonide 0.5 mg/2 ml Inhal Susp UD IH SCH ×2 (07:15→20:31)
--- NOTE | 2016-06-23 08:48 | PN ---
DATE: 06/23/2016 SUBJECTIVE: The patient appears comfortable this morning. She is not short of breath at rest. OBJECTIVE: VITAL SIGNS: Temperature is 98.8, pulse 58, respirations 18, blood pressure 154 /52. Oxygen saturation on nasal cannula is 99%. HEENT: Normocephalic, atraumatic. No JVD. CARDIOVASCULAR: Positive S1, S2. No S3. LUNGS: Minimal crackles at the bases. Very minimal/less rhonchi. No wheezing. EXTREMITIES: Mild edema. No cyanosis, no clubbing. Calves are nontender to palpation. GASTROINTESTINAL: Abdomen is soft, nontender, nondistended. Bowel sounds are positive. SKIN: No acute rash. NEUROLOGIC: Limited at the present time. IMPRESSION: 1. Recurrent bronchitis. 2. Rule out pneumonia. 3. Chronic obstructive pulmonary disease. 4. Congestive heart failure. 5. Positive troponin, coronary artery disease. 6. End-stage renal disease. 7. Chronic anemia. PLAN: The patient appears very comfortable this morning. She is not short of breath at rest. She is feeling much better overall. On physical exam, her bronchospasm is certainly less. In addition, the alveolar arterial gradient is also much less. I will continue with the current nebulizer treatments and low- dose oral steroids for now. Infectious disease, renal, GI evaluations are noted. Clinical status of the patient is certainly improved - compared to the initial presentation. However, again, the overall status/prognosis of this patient remains very guarded. I will discuss the above with Dr. Ascencio. Joni Perkins MD cc: [phone] TT: 06/23/2016 08:47:30 Confirmation # [id number] Dictation # [id number] matthias NAVARRO
[2016-06-23] MEDS: Insulin Human NPH/Reg 70/30 Vial(3 ml) SC SCH ×2 (11:11→18:16)
[2016-06-23] MEDS: Insulin Reg-LOW-Coverage SC SCH ×3 (11:12→18:16)
[2016-06-23] MEDS: POLYETHYLENE GLYCOL 3350 17 GM/Dose PACKET PO SCH (11:13)
[2016-06-23] MEDS ORDERED: Bisacodyl 5mg EC Tab PO ONE (12:30)
[2016-06-23 14:20] LABS: HEMATOCRIT 27.5 % (36.0-48.0); MEAN CELL VOLUME 100.7 fL (80.0-105.0); MEAN CORPUSCULAR HEMOGLOBIN 33.7 pg (25.0-35.0); MEAN CORPUSCULAR HGB CONC 33.5 g/dl (31.0-37.0); MEAN PLATELET VOLUME 9.1 fl (7.0-11.0); RED CELL DISTRIBUTION WIDTH 19.1 % (11.5-14.5); WHITE BLOOD COUNT 6.9 10^3/ul (4.5-11.0)
[2016-06-23 14:28] LABS: ALB/GLOB RATIO 0.9 (1.1-1.8); BILIRUBIN,TOTAL 0.6 mg/dL (0.2-1.3); CALCIUM 7.2 mg/dL (8.4-10.5); MAGNESIUM 1.9 mg/dL (1.7-2.2); PHOSPHOROUS 4.3 mg/dL (2.5-4.5); POTASSIUM 4.9 mmol/L (3.6-5.0); TOTAL PROTEIN 6.7 g/dL (5.8-8.3)
--- NOTE | 2016-06-23 15:40 | PN ---
DATE: 06/23/2016 An 81-year-old female on the transitional care unit, receiving physical therapy, on dialysis daily, a mbulating in the hallway with a walker. Nursing staff relates that she had no specific problems duri ng the night except complaints of constipation. PHYSICAL EXAMINATION: VITAL SIGNS: Temperature is 98, blood pressure is 146/54, oxygen sat is 99% on 2 liters of nasal oxy gen, heart rate is 61. GENERAL: She is alert and oriented x 3. LUNGS: Show diminished breath sounds at the bases, more on the right than the left. HEART: Has an S1, S2 rhythm, grade II/ systolic murmur. ABDOMEN: Soft with positive bowel sounds. EXTREMITIES: Show no evidence of edema. NEUROLOGIC: She is alert and oriented x 3. The patient has a predialysis chemistry, showed a sodium 127, potassium 4.9, chloride 92, BUN of 84, creatinine of 5.7, random blood sugar was 218. CBC showed a WBC of 6.9, RBC 2.73, hemoglobin 9.2, he matocrit 27.5, platelet count 92. The patient has completed a course of antibiotics for her community-acquired pneumonia. She has a ri ght pleural effusion with atelectasis and chronic changes in her lung with underlying chronic obstruc tive pulmonary disease. She has been receiving bronchodilator therapy and chest physiotherapy. She is a hypothyroid patient on thyroid replacement therapy and she has been receiving respiratory treatm ents, being followed by pulmonary. She is also being followed by nephrology. She has been being osorio lyzed more than 3 times a week because of the difficulty in being able to remove adequate amount of f luid during the times of dialysis because of fluctuations in her blood pressure. She has received so me laxatives with success in her bowel movement and she is on an insulin regimen with monitoring of h er blood sugar. We will continue current level of care. Review with renal long-term dialysis plans and follow up her CBC with a manual platelet count. Shavonne Ascencio MD cc: [id number] TT: 06/23/2016 15:39:37 Confirmation # [id number] Dictation # [id number] en
--- NOTE | 2016-06-23 15:41 | PN ---
DATE: 06/23/2016 SUBJECTIVE: The patient is seen lying in bed. She is awake. She is alert. She is comfortable. PHYSICAL EXAMINATION: VITAL SIGNS: Blood pressure 146/54, heart rate 61, respiratory rate 18, temperature 98.8. HEENT: Normocephalic, atraumatic. NECK: Supple, no JVD. LUNGS: Bilateral equal air entry, decreased breath sounds. EXTREMITIES: No lower extremity edema. LABORATORY DATA: Hemoglobin 9.2. Sodium 127, potassium 4.9, chloride 92, CO2 24, BUN 84, creatinine 5.7, glucose 222, calcium 7.2, albumin 3.3, corrected calcium is 7.8. ASSESSMENT: 1. Bilateral pleural effusions. 2. Bilateral lower lobe consolidations. 3. Congestive heart failure. 4. Non-insulin dependent diabetes mellitus. 5. Hypertension. 6. End-stage renal disease. 7. Coronary artery disease. PLAN: 1. Ultrafiltrate as tolerated. 2. Continue empiric antibiotics. 3. Discharge planning. Barbi Linares MD cc: [phone] TT: 06/23/2016 15:41:40 Confirmation # [id number] Dictation # [id number] en
--- NOTE | 2016-06-23 16:02 | PN ---
DATE: 06/23/2016 Seen and examined at the bedside earlier today. Complains of not having a bowel movement since . Denies nausea, vomiting, any overt GI bleed or abdominal pain. She has been eating. No nause a or vomiting. VITAL SIGNS: Temperature is 98.3, blood pressure is 156/70, pulse 64, respirations 18, 99% on room a ir. LABORATORIES: Today, WBC 6.9, H and H is 9.2 and 27.5, platelets is 92. Chem: Sodium 127, K is 4.9 , BUN 84, creatinine is 5.7. LFTs are within normal limits. PHYSICAL EXAMINATION: HEENT: Sclerae anicteric. NECK: Supple. CARDIAC: S1, S2. LUNG SOUNDS: With decreased breath sounds, but good air entry. ABDOMEN: With bowel sounds. It is softly distended, but nontender. EXTREMITIES: No edema. NEUROLOGIC: Awake, alert, and oriented. ASSESSMENT: This is an 81-year-old female with history of end-stage renal disease on dialysis. She has a history of congestive heart failure, bilateral pleural effusion and improving pneumonia. She a lso has history of chronic constipation. She has not had a bowel movement since Sunday she states . History of diverticulosis, diverticulitis, angiodysplasia, anemia. PLAN: She is already on MiraLax daily. We will give her a dose of Dulcolax today. Hopefully, this will aid in a bowel movement and then can continue MiraLax daily and consider increasing if patient c ontinues to have difficulty. Continue gastrointestinal prophylaxis. She is on Protonix. She gets P ercocet for pain, but her last dose was on 06/21. She is also on aspirin. The patient was seen and case discussed with Dr. Theodore, who is covering rounds. Starr STEPHENSON cc: [phone] TT: 06/23/2016 16:01:45 Confirmation # [id number] Dictation # [id number] en
[2016-06-23] MEDS: Oxycodone/Acetaminophen 2.5/325 mg Tab PO PRN (22:04)
--- NOTE | 2016-06-24 00:19 | CP.PCM.PN ---
Subjective - Date & Time of Evaluation Date of Evaluation: 06/23/16 Time of Evaluation: 19:50 - Subjective Subjective: Comfortable in bed, not in distress. Objective - Vital Signs/Intake and Output Vital Signs (last 24 hours): Temp Pulse Resp BP Pulse Ox 98.8 F 61 18 146/54 L 99 06/22/16 16:00 06/23/16 11:30 06/22/16 16:00 06/23/16 11:30 06/22/16 16:00 Intake and Output: 06/23/16 06/23/16 06:59 18:59 Intake Total 520 Balance 520 - Medications Medications: Current Medications Acetaminophen (Tylenol 325mg Tab) 650 mg PO Q6H PRN PRN Reason: Pain, moderate (4-7) Last Admin: 06/18/16 14:40 Dose: 650 mg Amlodipine Besylate (Norvasc) 5 mg PO 0800 [facility] Last Admin: 06/23/16 11:30 Dose: 5 mg Arformoterol Tartrate (Brovana) 15 mcg IH [id number] [facility] Last Admin: 06/23/16 07:15 Dose: 15 mcg Aspirin (Aspirin Chewable) 81 mg PO 0800 [facility] Last Admin: 06/23/16 11:10 Dose: 81 mg Atorvastatin Calcium (Lipitor) 20 mg PO DIN [facility] Last Admin: 06/22/16 17:52 Dose: 20 mg Budesonide (Pulmicort Respules) 0.5 mg IH [id number] [facility] Last Admin: 06/23/16 07:15 Dose: 0.5 mg Calcium Acetate (Phoslo) 1,334 mg PO WM [facility] Last Admin: 06/23/16 11:32 Dose: 1,334 mg Carvedilol (Coreg) 25 mg PO 0800,1800 [facility] Last Admin: 06/23/16 11:10 Dose: 25 mg Fenofibrate (Tricor) 145 mg PO DAILY [facility] Last Admin: 06/23/16 11:33 Dose: 145 mg Gabapentin (Neurontin) 100 mg PO HS [facility] PRN Reason: Protocol Last Admin: 06/22/16 22:05 Dose: 100 mg Insulin Human Regular (Humulin R Low) 0 units SC ACHS [facility] PRN Reason: Protocol Last Admin: 06/23/16 13:23 Dose: Not Given Isosorbide Mononitrate (Imdur) 30 mg PO 0600 [facility] Last Admin: 06/23/16 06:25 Dose: 30 mg Levothyroxine Sodium (Synthroid) 50 mcg PO 0600 [facility] Last Admin: 06/23/16 06:25 Dose: 50 mcg Oxycodone/Acetaminophen (Percocet 2.5/325 Mg Tab) 1 tab PO Q6H PRN PRN Reason: Pain, severe (8-10) Last Admin: 06/21/16 05:59 Dose: 1 tab Pantoprazole Sodium (Protonix Ec Tab) 20 mg PO 0630 [facility] Last Admin: 06/23/16 06:25 Dose: 20 mg Polyethylene Glycol (Miralax) 17 gm PO DAILY [facility] Last Admin: 06/23/16 11:13 Dose: 17 gm Prednisone (Prednisone Tab) 10 mg PO DAILY [facility] Last Admin: 06/23/16 11:33 Dose: 10 mg - Labs Labs: 06/23/16 13:55 06/23/16 13:55 - Constitutional Appears: Non-toxic, No Acute Distress - Head Exam Head Exam: NORMAL INSPECTION - ENT Exam ENT Exam: Mucous Membranes Moist - Neck Exam Neck Exam: absent: Lymphadenopathy, Meningismus - Respiratory Exam Respiratory Exam: Decreased Breath Sounds - Cardiovascular Exam Cardiovascular Exam: +S1, +S2 - GI/Abdominal Exam GI & Abdominal Exam: Soft. absent: Tenderness Assessment and Plan - Assessment and Plan (Free Text) Plan: Assessment S/P healthcare-associated pneumonia (right upper lobe, bilateral lower lobes), improved clinically and S/P treatment HTN DM CAD with chronic CHF ESRD on HD Plan completed 7 days of Zyvox and Azactam - will continue to monitor off antibiotics since she is at risk for nosocomial infections
[2016-06-24] MEDS: Insulin Reg-LOW-Coverage SC SCH ×5 (00:53→22:03)
[2016-06-24] MEDS: Pantoprazole 20 mg EC Tab PO SCH (05:54)
[2016-06-24] MEDS: Levothyroxine 50 MCG TAB PO SCH (05:54)
[2016-06-24] MEDS: Arformoterol 15 mcg/2 ml Inh Sol IH SCH ×2 (07:24→20:24)
[2016-06-24] MEDS: Budesonide 0.5 mg/2 ml Inhal Susp UD IH SCH ×2 (07:24→20:24)
[2016-06-24 09:17] LABS: ADD MANUAL DIFF? NO
[2016-06-24 09:21] LABS: BASO # 0.01 K/mm3 (0.0-2.0); BASO % 0.2 % (0.0-3.0); EOS % 0.2 % (1.5-5.0); GRAN # 4.51 (1.4-6.5); GRAN % 69.6 % (50.0-68.0); HEMATOCRIT 30.1 % (36.0-48.0); LYMPH # 1.5 (1.2-3.4); LYMPH % 23.8 % (22.0-35.0); MEAN CELL VOLUME 105.6 fL (80.0-105.0); MEAN CORPUSCULAR HGB CONC 31.2 g/dl (31.0-37.0); MEAN PLATELET VOLUME 9.1 fl (7.0-11.0); MONO # 0.4 (0.1-0.6); MONO % 6.2 % (1.0-6.0); PLATELET COUNT 95 10^3/uL (120.0-450.0); RED CELL DISTRIBUTION WIDTH 20.2 % (11.5-14.5); WHITE BLOOD COUNT 6.5 10^3/ul (4.5-11.0)
[2016-06-24] MEDS: POLYETHYLENE GLYCOL 3350 17 GM/Dose PACKET PO SCH (09:25)
[2016-06-24] MEDS: Insulin Human NPH/Reg 70/30 Vial(3 ml) SC SCH ×2 (09:28→18:30)
--- NOTE | 2016-06-24 10:19 | PN ---
DATE: 06/24/2016 The patient seen earlier in room 303. The patient is in bed, no acute distress, nontoxic. PHYSICAL EXAMINATION: VITAL SIGNS: Temperature is 98, blood pressure is 140/70, respiratory rate of 18. HEENT: Unremarkable. NECK: Supple. LUNGS: Decreased breath sounds. HEART: Normal S1, S2. ABDOMEN: Soft, nontender. LABORATORY DATA: Reveals a white count of 6.9, hemoglobin is 9, platelets of 95. Chemistries reveal a BUN of 84, creatinine of 5.7. Microbiology is noted. ASSESSMENT AND PLAN: This is an 81-year-old female status post healthcare-associated pneumonia, righ t upper, bilateral lower lobes, improved status post treatment with hypertension, diabetes, end-stage renal disease on hemodialysis, and coronary artery disease with chronic congestive heart failure. H ad completed 7 days of antibiotics, Zyvox and Azactam. Currently off of antibiotics and on prednison e. The patient is at risk for developing nosocomial infections. We will follow closely with you. Jeromy Castellanos MD cc: [phone] TT: 06/24/2016 10:18:51 Confirmation # [id number] Dictation # [id number] jn
--- NOTE | 2016-06-24 11:56 | PN ---
DATE: 06/24/2016 The patient was seen and examined at bedside. She states she feels a little better with less shortne ss of breath. PHYSICAL EXAMINATION: VITAL SIGNS: Pulse is 56, blood pressure 140/70, and she is on nasal cannula. There is no oxygen sa turation recorded. HEAD, EARS, NOSE, AND THROAT: Within normal limits. NECK: Supple with no jugular vein distention. CHEST: Symmetrical. HEART: S1, S2, no S3. Regular. LUNGS: Diminished breath sounds bilaterally with prolonged expiration and scattered end expiratory w heezes, severe airway obstruction. GASTROINTESTINAL: Abdomen soft, nontender, with no organomegaly. EXTREMITIES: No edema. SKIN: Clear with no skin rashes. No cyanosis. LABORATORY DATA: WBC 6.5, hemoglobin of 9.4. ASSESSMENT AND PLAN: 1. Advanced chronic obstructive pulmonary disease. 2. Recurrent bronchitis. 3. Rule out pneumonia. 4. Congestive heart failure. PLAN: The patient continues to improve. She has less bronchospasm. She is responding well to nebul izer treatments and low-dose oral steroids, which will be continued. Edgar Jeter MD cc: [id number] TT: 06/24/2016 11:56:17 Confirmation # [id number] Dictation # [id number] ln
--- NOTE | 2016-06-24 13:46 | PN ---
DATE: 06/24/2016 An 81-year-old female resting comfortably in the transitional care unit. Nursing staff relates that there were no problems during the night. The patient is scheduled for dialysis today. PHYSICAL EXAMINATION: VITAL SIGNS: Her temperature is 98, her blood pressure is 150/49, pulse is 59. Her oxygen 98% satur ation. She is using nasal oxygen 2 liters. NECK: Supple. LUNGS: Show diminished breath sounds at the bases, right more than left. HEART: Has an S1, S2 rhythm. ABDOMEN: Soft with positive bowel sounds. EXTREMITIES: No evidence of edema. LABORATORY DATA: Shows a WBC of 6.5, RBC is 2.85, hemoglobin 9.4, hematocrit 30.1, platelet count 95 ,000. Chemistry: Random blood sugar was reported 209. MEDICATIONS: Currently, the patient is on insulin coverage with Synthroid replacement therapy. She is on prednisone 10 mg daily with respiratory treatments. She has finished a course of antibiotics f or community-acquired pneumonia. She is on dialysis with chronic renal disease. She has a history of carotid disease and arterioscler otic heart disease, hyperlipidemia, non-insulin dependent diabetes, and hypothyroid disease. Continu e to monitor the patient. She is being followed by infectious disease, cardiology and nephrology. Shavonne Ascencio MD cc: [id number] TT: 06/24/2016 13:45:39 Confirmation # [id number] Dictation # [id number] tad
[2016-06-25] MEDS: Pantoprazole 20 mg EC Tab PO SCH (05:54)
[2016-06-25] MEDS: Levothyroxine 50 MCG TAB PO SCH (05:55)
[2016-06-25] MEDS: Insulin Reg-LOW-Coverage SC SCH ×4 (07:15→21:42)
[2016-06-25] MEDS: Arformoterol 15 mcg/2 ml Inh Sol IH SCH ×2 (07:19→20:47)
[2016-06-25] MEDS: Budesonide 0.5 mg/2 ml Inhal Susp UD IH SCH ×2 (07:19→20:47)
[2016-06-25] MEDS: Insulin Human NPH/Reg 70/30 Vial(3 ml) SC SCH ×2 (12:00→17:22)
[2016-06-25] MEDS: POLYETHYLENE GLYCOL 3350 17 GM/Dose PACKET PO SCH (12:02)
--- NOTE | 2016-06-25 12:08 | PN ---
DATE: 06/25/2016 This is an 81-year-old female resting comfortably in bed on transitional care unit this morning. She offers no specific complaints this morning, and the nursing staff relates that there were no specifi c problems during the night. PHYSICAL EXAMINATION: VITAL SIGNS: Show a temp of 98.3. Her pulse is 60. Her blood pressure is 155/59. Her oxygen satur ation on 2 liters of nasal oxygen is 96%. Respiratory rate is 18. GENERAL: She is alert and oriented x 3. LUNGS: Show diminished breath sounds at the bases, right more than left. HEART: Has an S1, S2 rhythm. ABDOMEN: Soft with positive bowel sounds. EXTREMITIES: Show no evidence of edema. ASSESSMENT AND PLAN: The patient is status post antibiotic therapy for probable community-acquired p neumonia. She is on dialysis daily with chronic renal disease. The regimen for dialysis, which is p rescribed by nephrology who is following the patient, is based upon the fact that the patient develop s low blood pressure during the dialysis cycle and is not able to get adequate volume removal during the 3 sessions during the week. The area of atelectasis at the base of the right lung - pulmonary is recommending to continue to monitor the patient at this time. She has a past medical history of isc hemic heart disease, carotid disease, insulin-dependent diabetes. The nursing staff relates that the re are times when the patient refuses her insulin for fear that she may get too low. I have discusse d this with the patient that it is being monitored. She will continue with occupational and physical therapy at this time. Continue the current regimen, and transition plans for home are being discuss ed. Shavonne Ascencio MD cc: [id number] TT: 06/25/2016 12:07:34 Confirmation # [id number] Dictation # [id number] tad
--- NOTE | 2016-06-25 19:50 | PN ---
DATE: 06/25/2016 The patient is in bed in no acute distress, nontoxic. PHYSICAL EXAMINATION: VITAL SIGNS: Temperature of 98, blood pressure is 120/60, respiratory rate of 18, heart rate of 54. HEENT: Unremarkable. NECK: Supple. LUNGS: Have decreased breath sounds. HEART: Normal S1, S2. ABDOMEN: Soft, nontender. LABORATORY DATA: Reveals a white count of 6.5, hemoglobin of 9, platelets of 95. BUN of 84 and crea tinine of 5.7. ASSESSMENT AND PLAN: This is an 81-year-old female status post healthcare-associated pneumonia of ri ght upper, bilateral lower lobe, improved status post treatment and also the patient with a history o f hypertension, diabetes, end-stage renal disease on hemodialysis, coronary artery disease and chroni c congestive heart failure. She completed the antibiotic therapy and is currently off of antibiotics . The patient was seen early this morning in room 303. Review of the medications confirms the kanwal jimenez to be off of antibiotics. The patient is at risk for developing nosocomial infections. The kanwal nt is still on 10 mg of prednisone a day. Will follow with you. Jeromy Castellanos MD cc: [phone] TT: 06/25/2016 19:49:49 Confirmation # [id number] Dictation # [id number] mar
[2016-06-26] MEDS: Levothyroxine 50 MCG TAB PO SCH (05:25)
[2016-06-26] MEDS: Pantoprazole 20 mg EC Tab PO SCH (05:30)
[2016-06-26] MEDS: Insulin Reg-LOW-Coverage SC SCH ×5 (06:42→22:40)
[2016-06-26] MEDS: Arformoterol 15 mcg/2 ml Inh Sol IH SCH ×2 (07:10→20:23)
[2016-06-26] MEDS: Budesonide 0.5 mg/2 ml Inhal Susp UD IH SCH ×2 (07:10→20:23)
--- NOTE | 2016-06-26 08:38 | PN ---
DATE: 06/26/2016 PULMONARY NOTE SUBJECTIVE: The patient appears comfortable this morning. She is not short of breath at rest. PHYSICAL EXAMINATION: VITAL SIGNS: Temperature is 98.4, pulse 54, respirations 16, blood pressure 157 /50. Oxygen saturation on nasal cannula is 98%. HEENT: Normocephalic, atraumatic. No JVD. CARDIOVASCULAR: Positive S1, S2. No S3. LUNGS: Minimal crackles at the bases. Very minimal/less rhonchi. No wheezing. EXTREMITIES: Mild edema. No cyanosis. No clubbing. Calves are nontender to palpation. GASTROINTESTINAL: Abdomen is soft, nontender, nondistended. Bowel sounds are positive. SKIN: No acute rash. NEUROLOGIC: Limited at the present time. IMPRESSION: 1. Recurrent bronchitis. 2. Rule out pneumonia. 3. Chronic obstructive pulmonary disease. 4. Congestive heart failure. 5. Positive troponin, coronary artery disease. 6. End-stage renal disease. 7. Chronic anemia. PLAN: The patient appears very comfortable this morning. She is not short of breath at rest. She states she is feeling much better overall. On physical exam, her bronchospasm continues to resolve. In addition, oxygen saturation on nasal cannula is now 98%. I will continue the current nebulizer treatments and low-dose oral steroids for now. GI and infectious disease evaluations are noted. Clinical status of the patient is certainly improved - compared to last week. However, again, the overall status/prognosis of this patient remains very guarded at best. I will discuss the above with Dr. Ascencio. Joni Perkins MD cc: [phone] TT: 06/26/2016 08:38:23 Confirmation # [id number] Dictation # [id number] jn MTDD
[2016-06-26] MEDS: POLYETHYLENE GLYCOL 3350 17 GM/Dose PACKET PO SCH (10:14)
[2016-06-26] MEDS: Insulin Human NPH/Reg 70/30 Vial(3 ml) SC SCH ×3 (12:26→18:24)
--- NOTE | 2016-06-26 13:19 | PN ---
DATE: 06/26/2016 Seen and examined at the bedside. The patient complains of mid upper abdominal pain. No nausea or v omiting. She reports having good bowel movement yesterday. No reports of melena or bright red blood . No nausea or vomiting. Awaiting to go to dialysis. VITAL SIGNS: Temperature is 98.1, blood pressure 124/45, pulse rate 51, respirations 18, 100 on nasa l cannula. LABORATORY DATA: No new labs are noted for today. PHYSICAL EXAMINATION: HEENT: Sclerae are anicteric. NECK: Supple. CARDIAC: S1, S2. LUNGS: Decreased breath sounds, but no rales or wheeze. Good air entry. ABDOMEN: With bowel sounds, softly distended, some positive tenderness to mid epigastric area. No r ebound or guarding. ASSESSMENT: This is an 81-year-old female with a history of end-stage renal disease on dialysis, chr onic constipation, improving pneumonia, now complaining of mid abdominal pain. She did have abdomina l ultrasound done. It showed sludge. No dilation in the common bile duct. She has history of insul in-dependent diabetes, carotid disease, anemia, diverticulosis, diverticulitis, ? gastroparesis. PLAN: We will request for abdominal flat plate. She is already on Protonix 20 mg. She is on Proton ix 20 mg daily. We can add an additional dose at night of Pepcid 20 and change her diet to renal ful l liquid diet until after abdominal x-ray. The patient's last endoscopy was back in 12/2014, found ga stritis. We will follow up the abdominal x-ray and further recommendation after review. The patient was seen and case discussed with Dr. Theodore. Starr STEPHENSON cc: [id number] TT: 06/26/2016 13:19:13 Confirmation # [id number] Dictation # [id number] shanta
--- NOTE | 2016-06-26 14:14 | PN ---
DATE: 06/26/2016 SUBJECTIVE: The patient is seen in the dialysis unit. She is awake. She is alert. She reports she had severe abdominal pain yesterday. She got prune juice. She had a large bowel movement yesterday . She denies any chest tightness at present. PHYSICAL EXAMINATION: GENERAL: Elderly lady lying in bed in the dialysis unit. VITAL SIGNS: Blood pressure 124/45, heart rate 51, respiratory rate 18, temperature 98.1. HEENT: Normocephalic, atraumatic. NECK: Supple, no JVD. LUNGS: Bilateral equal air entry, bilateral basal rales. CARDIAC: S1, S2, regular rate and rhythm, no murmur, no rub. ABDOMEN: Distended, soft, nontender, bowel sounds present. EXTREMITIES: No lower extremity edema. LABORATORY DATA: WBC 6.5, hemoglobin 9.4, hematocrit 30, platelets 95. Sodium 127 on 06/23. CURRENT MEDICATIONS: Aspirin, Brovana, Coreg 25 b.i.d., insulin, Imdur, Lipitor, MiraLax, gabapentin , amlodipine, PhosLo, prednisone, Protonix, Pulmicort, Synthroid, TriCor, Tylenol. ASSESSMENT: 1. Bilateral pleural effusions, bilateral basilar consolidations. 2. Congestive heart failure. 3. Xfm-uoxsfnr-qwqooksnh diabetes mellitus. 4. Hypertension. 5. Coronary artery disease. 6. Anemia of chronic disease. PLAN: 1. Stable dialysis. 2. The patient has been requiring daily ultrafiltration/dialysis last week. 3. The patient will benefit from 4 times a week dialysis. 4. Management of constipation. 5. Physical therapy. 6. Discharge planning. Barbi Linares MD cc: [phone] TT: 06/26/2016 14:14:11 Confirmation # [id number] Dictation # [id number] sn
--- NOTE | 2016-06-26 14:50 | CP.PCM.PN ---
Subjective - Date & Time of Evaluation Date of Evaluation: 06/26/16 Time of Evaluation: 11:35 - Subjective Subjective: Comfortable on a chair, not in distress, no fevers, much improved breathing, no cough currently. Objective - Vital Signs/Intake and Output Vital Signs (last 24 hours): Temp Pulse Resp BP Pulse Ox 98.4 F 51 L 16 120/45 L 98 06/25/16 14:00 06/26/16 08:13 06/25/16 14:00 06/26/16 08:13 06/25/16 14:00 - Medications Medications: Current Medications Acetaminophen (Tylenol 325mg Tab) 650 mg PO Q6H PRN PRN Reason: Pain, moderate (4-7) Last Admin: 06/18/16 14:40 Dose: 650 mg Amlodipine Besylate (Norvasc) 5 mg PO 0800 [facility] Last Admin: 06/26/16 08:13 Dose: Not Given Arformoterol Tartrate (Brovana) 15 mcg IH [id number] [facility] Last Admin: 06/26/16 07:10 Dose: 15 mcg Aspirin (Aspirin Chewable) 81 mg PO 0800 [facility] Last Admin: 06/26/16 08:13 Dose: 81 mg Atorvastatin Calcium (Lipitor) 20 mg PO DIN [facility] Last Admin: 06/25/16 17:26 Dose: 20 mg Budesonide (Pulmicort Respules) 0.5 mg IH [id number] [facility] Last Admin: 06/26/16 07:10 Dose: 0.5 mg Calcium Acetate (Phoslo) 1,334 mg PO WM [facility] Last Admin: 06/25/16 17:27 Dose: 1,334 mg Carvedilol (Coreg) 25 mg PO 0800,1800 [facility] Last Admin: 06/25/16 17:19 Dose: Not Given Fenofibrate (Tricor) 145 mg PO DAILY [facility] Last Admin: 06/25/16 12:03 Dose: 145 mg Gabapentin (Neurontin) 100 mg PO HS [facility] PRN Reason: Protocol Last Admin: 06/25/16 21:19 Dose: 100 mg Insulin Human Regular (Humulin R Low) 0 units SC ACHS [facility] PRN Reason: Protocol Last Admin: 06/26/16 06:42 Dose: Not Given Isosorbide Mononitrate (Imdur) 30 mg PO 0600 [facility] Last Admin: 06/26/16 05:25 Dose: 30 mg Levothyroxine Sodium (Synthroid) 50 mcg PO 0600 [facility] Last Admin: 06/26/16 05:25 Dose: 50 mcg Pantoprazole Sodium (Protonix Ec Tab) 20 mg PO 0630 [facility] Last Admin: 06/26/16 05:30 Dose: 20 mg Polyethylene Glycol (Miralax) 17 gm PO DAILY [facility] Last Admin: 06/25/16 12:02 Dose: 17 gm Prednisone (Prednisone Tab) 10 mg PO 0800 [facility] Last Admin: 06/26/16 08:14 Dose: 10 mg - Labs Labs: 06/24/16 09:11 06/23/16 13:55 - Constitutional Appears: Non-toxic, No Acute Distress - Head Exam Head Exam: NORMAL INSPECTION - ENT Exam ENT Exam: Mucous Membranes Moist - Neck Exam Neck Exam: absent: Lymphadenopathy, Meningismus - Respiratory Exam Respiratory Exam: Decreased Breath Sounds - Cardiovascular Exam Cardiovascular Exam: +S1, +S2 - GI/Abdominal Exam GI & Abdominal Exam: Soft. absent: Tenderness Assessment and Plan - Assessment and Plan (Free Text) Plan: Assessment S/P healthcare-associated pneumonia (right upper lobe, bilateral lower lobes), improved clinically and S/P treatment HTN DM CAD with chronic CHF ESRD on HD Plan completed 7 days of Zyvox and Azactam - will continue to monitor off antibiotics since she is at risk for hospital-acquired infections
--- NOTE | 2016-06-26 20:58 | PN ---
DATE: 06/26/2016 The patient is on transitional care unit, status post treatment for community hospital-acquired pneum onia, status post congestive heart failure, on dialysis 4 times a week, receiving occupational and ph ysical therapy. PHYSICAL EXAMINATION: VITAL SIGNS: Her temperature is 98, her pulse is 51, her blood pressure is 124/45. Her oxygen satur ation on 2 liters is reported at 100%. The patient is ambulating with physical therapy and it was re ported that her pulse ox was 93%. GENERAL: She is alert and oriented x 3. LUNGS: Show some rhonchi at the bases, more on the right than on the left. HEART: Regular S1, S2 rhythm. ABDOMEN: Soft with positive bowel sounds. EXTREMITIES: Show no evidence of edema. ASSESSMENT AND PLAN: She will continue on her current insulin regimen for her insulin-dependent diab etes. Her blood sugar this morning was 80. She will continue on her cholesterol medication, her res piratory treatments for underlying chronic obstructive pulmonary disease, her cardiac meds for underl rosette arteriosclerotic heart disease and left carotid disease, and on her Neurontin for her peripheral neuropathy. She is also on statins for her hyperlipidemia. She is on Synthroid replacement therapy for hypothyroid disease. We will continue current level of care. Plans are being made by her nephr ologist to allow the patient to transition to dialysis at [facility] so that she can rece perry treatment 4 times a week. Shavonne Ascencio MD cc: [id number] TT: 06/26/2016 20:57:15 Confirmation # [id number] Dictation # [id number] shanta
[2016-06-27] MEDS: Levothyroxine 50 MCG TAB PO SCH (06:04)
[2016-06-27] MEDS: Pantoprazole 20 mg EC Tab PO SCH (06:04)
[2016-06-27] MEDS: Insulin Reg-LOW-Coverage SC SCH ×4 (06:31→21:52)
[2016-06-27] MEDS: Arformoterol 15 mcg/2 ml Inh Sol IH SCH ×2 (06:59→19:51)
[2016-06-27] MEDS: Budesonide 0.5 mg/2 ml Inhal Susp UD IH SCH ×2 (06:59→19:51)
--- NOTE | 2016-06-27 08:53 | RAD ---
HISTORY: abdominal pain/constipation COMPARISON: 08/04/2014 FINDINGS: BOWEL: Normal. No obstruction. No free air. BONES: Normal. OTHER FINDINGS: None. IMPRESSION: No active disease.
[2016-06-27] MEDS: Insulin Human NPH/Reg 70/30 Vial(3 ml) SC SCH ×2 (10:51→17:33)
[2016-06-27] MEDS: POLYETHYLENE GLYCOL 3350 17 GM/Dose PACKET PO SCH (12:29)
--- NOTE | 2016-06-27 13:04 | PN ---
DATE: 06/27/2016 An 81-year-old female resting in bed this morning. Nursing staff relates that there were no problems during the night. The patient states that she was referred for an x-ray after dialysis yesterday by GI because of some vague abdominal discomfort which is now gone. PHYSICAL EXAMINATION: VITAL SIGNS: Her temp is 98, her blood pressure is 147/47, her pulse is 51: GENERAL: She is alert and oriented x 3. LUNGS: Show diminished breath sounds at the bases with rhonchi, right more than left. HEART: Regular S1, S2 rhythm. ABDOMEN: Soft with positive bowel sounds. EXTREMITIES: Show no evidence of edema. ASSESSMENT AND PLAN: The patient is on dialysis 4 times a week. She has just completed a course of antibiotics for community-acquired pneumonia. Nephrology is working with psychiatric social worker to transiti on the patient to dialysis unit that will accommodate her for 4 times a week. She continues occupati onal and physical therapy. We will continue to monitor the patient closely while arranging her next dialysis needs. I discussed with the patient her insulin regimen and we will await gastroenterology' s followup to their evaluation. The abdominal x-ray that was ordered was showing no evidence of acti ve disease. She does have a history of gallstone, follow up labs during dialysis. MEDICATIONS: Currently, she is on Ecotrin 81 mg daily, Brovana twice a day, Coreg 25 twice a day, Im dur 30 daily, Lipitor 20 daily, MiraLax 17 grams daily, Neurontin 100 at bedtime, Norvasc 5 mg daily, PhosLo with meals, prednisone 10 mg daily, Protonix 20 mg daily, Pulmicort twice a day, Synthroid 50 mcg daily, Tricor 145 mg daily and Tylenol p.r.n. Shavonne Ascencio MD cc: [id number] TT: 06/27/2016 13:03:40 Confirmation # [id number] Dictation # [id number] tn
--- NOTE | 2016-06-27 15:55 | CP.PCM.PN ---
Subjective - Date & Time of Evaluation Date of Evaluation: 06/27/16 Time of Evaluation: 11:40 - Subjective Subjective: Comfortable in bed, not in distress, much improved breathing and no coughing currently. Afebrile. Objective - Vital Signs/Intake and Output Vital Signs (last 24 hours): Temp Pulse Resp BP Pulse Ox 98.1 F 51 L 18 147/47 L 100 06/26/16 11:30 06/27/16 08:47 06/26/16 11:30 06/27/16 08:47 06/26/16 11:30 - Medications Medications: Current Medications Acetaminophen (Tylenol 325mg Tab) 650 mg PO Q6H PRN PRN Reason: Pain, moderate (4-7) Last Admin: 06/18/16 14:40 Dose: 650 mg Amlodipine Besylate (Norvasc) 5 mg PO 0800 [facility] Last Admin: 06/27/16 08:47 Dose: 5 mg Arformoterol Tartrate (Brovana) 15 mcg IH [id number] [facility] Last Admin: 06/27/16 06:59 Dose: 15 mcg Aspirin (Aspirin Chewable) 81 mg PO 0800 [facility] Last Admin: 06/27/16 08:44 Dose: 81 mg Atorvastatin Calcium (Lipitor) 20 mg PO DIN [facility] Last Admin: 06/26/16 18:21 Dose: 20 mg Budesonide (Pulmicort Respules) 0.5 mg IH [id number] [facility] Last Admin: 06/27/16 06:59 Dose: 0.5 mg Calcium Acetate (Phoslo) 1,334 mg PO WM [facility] Last Admin: 06/27/16 12:29 Dose: 1,334 mg Carvedilol (Coreg) 25 mg PO 0800,1800 [facility] Last Admin: 06/27/16 08:46 Dose: Not Given Fenofibrate (Tricor) 145 mg PO DAILY [facility] Last Admin: 06/27/16 15:46 Dose: 145 mg Gabapentin (Neurontin) 100 mg PO HS [facility] PRN Reason: Protocol Last Admin: 06/26/16 22:41 Dose: 100 mg Insulin Human Regular (Humulin R Low) 0 units SC ACHS [facility] PRN Reason: Protocol Last Admin: 06/27/16 12:28 Dose: Not Given Isosorbide Mononitrate (Imdur) 30 mg PO 0600 [facility] Last Admin: 06/27/16 06:03 Dose: Not Given Levothyroxine Sodium (Synthroid) 50 mcg PO 0600 [facility] Last Admin: 06/27/16 06:04 Dose: 50 mcg Pantoprazole Sodium (Protonix Ec Tab) 20 mg PO 0630 [facility] Last Admin: 06/27/16 06:04 Dose: 20 mg Polyethylene Glycol (Miralax) 17 gm PO DAILY [facility] Last Admin: 06/27/16 12:29 Dose: Not Given Prednisone (Prednisone Tab) 10 mg PO 0800 [facility] Last Admin: 06/27/16 08:48 Dose: 10 mg - Labs Labs: 06/24/16 09:11 06/23/16 13:55 - Constitutional Appears: Non-toxic, No Acute Distress - Head Exam Head Exam: NORMAL INSPECTION - ENT Exam ENT Exam: Mucous Membranes Moist - Neck Exam Neck Exam: absent: Lymphadenopathy, Meningismus - Respiratory Exam Respiratory Exam: Decreased Breath Sounds - Cardiovascular Exam Cardiovascular Exam: +S1, +S2 - GI/Abdominal Exam GI & Abdominal Exam: Soft. absent: Tenderness Assessment and Plan - Assessment and Plan (Free Text) Plan: Assessment S/P healthcare-associated pneumonia (right upper lobe, bilateral lower lobes), improved clinically and S/P treatment HTN DM CAD with chronic CHF ESRD on HD Plan completed 7 days of Zyvox and Azactam - will continue to monitor off antibiotics since she is at risk for healthcare-associated infections
[2016-06-27] MEDS ORDERED: Dextrose 50% SYRINGE Inj (50 ml) ONE (20:33)
[2016-06-28] MEDS: Levothyroxine 50 MCG TAB PO SCH (05:53)
[2016-06-28] MEDS: Pantoprazole 20 mg EC Tab PO SCH (05:53)
[2016-06-28] MEDS: Insulin Reg-LOW-Coverage SC SCH ×4 (06:46→21:30)
--- NOTE | 2016-06-28 08:11 | PN ---
DATE: 06/28/2016 SUBJECTIVE: The patient appears comfortable this morning. She is not short of breath at rest. PHYSICAL EXAMINATION: VITAL SIGNS: Temperature is 98.0, pulse 49, respirations 18, blood pressure 124 /76. Oxygen saturation on nasal cannula is 100%. HEENT: Normocephalic, atraumatic. No JVD. CARDIOVASCULAR: Positive S1, S2. No S3. LUNGS: Very minimal crackles at the bases. Very minimal/less rhonchi. No wheezing. EXTREMITIES: Less edema. No cyanosis, no clubbing. Calves are nontender to palpation. GASTROINTESTINAL: Abdomen is soft, nontender, nondistended. Bowel sounds are positive. SKIN: No acute rash. NEUROLOGIC: Limited at the present time. IMPRESSION: 1. Recurrent bronchitis. 2. Rule out pneumonia. 3. Chronic obstructive pulmonary disease. 4. Congestive heart failure. 5. Positive troponin, coronary artery disease. 6. End-stage renal disease. 7. Chronic anemia. PLAN: The patient appears very comfortable this morning. She is not short of breath at rest. She states she is feeling much better overall. On physical exam, there is no significant bronchospasm noted. In addition, there is no significant alveolar arterial gradient. Oxygen saturation on nasal cannula is now 100%. I did meet with the physical therapist a few days ago. The patient does not qualify for home oxygen. I will continue with the current nebulizer treatments and decrease the oral steroids this morning. Infectious disease and renal evaluations are noted. Clinical status of the patient is certainly improved - compared to the initial presentation. However, again, the overall status/prognosis of this patient is poor. The patient is for discharge in the near future. I will discuss the above with Dr. Ascencio. Joni Perkins MD cc: [phone] TT: 06/28/2016 08:11:10 Confirmation # [id number] Dictation # [id number] matthias NAVARRO
[2016-06-28] MEDS: Budesonide 0.5 mg/2 ml Inhal Susp UD IH SCH ×2 (08:42→20:08)
[2016-06-28] MEDS: Arformoterol 15 mcg/2 ml Inh Sol IH SCH ×2 (08:42→20:08)
[2016-06-28] MEDS: Insulin Human NPH/Reg 70/30 Vial(3 ml) SC SCH ×2 (10:00→18:05)
[2016-06-28] MEDS: POLYETHYLENE GLYCOL 3350 17 GM/Dose PACKET PO SCH (10:11)
--- NOTE | 2016-06-28 10:38 | PN ---
DATE: 06/28/2016 An 81-year-old female resting comfortably in the chair on transitional care unit. Nursing staff rela peg that there were no particular problems during the night. VITAL SIGNS: Her temperature is 98, her blood pressure is 137/49, her pulse is 51, her oxygen satura tion is 100% on room air. Currently, the patient is receiving dialysis 4 times a week; awaiting acceptance to the dialysis unit in [facility]. She has completed a course of antibiotics for community-acquired pneumonia and she is receiving occupational and physical therapy. PHYSICAL EXAMINATION: GENERAL: She is alert and oriented x 3. NECK: Supple. LUNGS: Rhonchitic at the bases, right more than left. HEART: Has a regular S1, S2 rhythm. ABDOMEN: Soft with positive bowel sounds. EXTREMITIES: Show no evidence of edema. The patient is scheduled for dialysis today. Will continue current medical management at this time. volunteer services supervisor are working, along with nephrology, for her acceptance to the nephrology dialysis un it at [facility]. Shavonne Ascencio MD cc: [id number] TT: 06/28/2016 10:37:32 Confirmation # [id number] Dictation # [id number] matthias
--- NOTE | 2016-06-28 11:59 | PN ---
DATE: 06/28/2016 SUBJECTIVE: The patient is seen sitting in chair. She is awake. She is alert. She is comfortable. She denies any pain. She denies any shortness of breath. She complains of mild abdominal pain. PHYSICAL EXAMINATION: GENERAL: Elderly lady sitting in chair. VITAL SIGNS: Blood pressure 132/48, heart rate 51, respiratory rate 18, temperature 98.2. HEENT: Normocephalic, atraumatic. NECK: Supple. No JVD. LUNGS: Bilateral equal air entry, good air entry. CARDIAC: S1, S2, regular rate and rhythm. No murmur, no rub. ABDOMEN: Obese, distended, soft, nontender. Bowel sounds present. EXTREMITIES: No lower extremity edema. INTAKE AND OUTPUT: Not charted. LABORATORY DATA: WBC 6.5, hemoglobin 9.4, hematocrit 30, platelets 110. MEDICATIONS: List reviewed. ASSESSMENT AND PLAN: 1. Non-insulin dependent diabetes mellitus. 2. Hypertension. 3. Coronary artery disease. 4. End-stage renal disease. 5. Anemia of chronic disease. 6. Volume overload. 7. Constipation. PLAN: 1. Dialysis today. 2. The patient will require chronically 4-nehot-e-week dialysis. 3. Continue MiraLax for constipation. 4. May require something stronger. Barbi Linares MD cc: [phone] TT: 06/28/2016 11:58:57 Confirmation # [id number] Dictation # [id number] jn
--- NOTE | 2016-06-28 16:30 | CP.PCM.PN ---
Subjective - Date & Time of Evaluation Date of Evaluation: 06/28/16 Time of Evaluation: 11:50 - Subjective Subjective: Comfortable on a chair, not in distress, no fevers. Objective - Vital Signs/Intake and Output Vital Signs (last 24 hours): Temp Pulse Resp BP Pulse Ox 98 F 51 L 18 137/49 L 100 06/28/16 06:00 06/28/16 08:41 06/28/16 06:00 06/28/16 08:41 06/28/16 06:00 - Medications Medications: Current Medications Acetaminophen (Tylenol 325mg Tab) 650 mg PO Q6H PRN PRN Reason: Pain, moderate (4-7) Last Admin: 06/18/16 14:40 Dose: 650 mg Amlodipine Besylate (Norvasc) 5 mg PO 0800 [facility] Last Admin: 06/28/16 08:41 Dose: Not Given Arformoterol Tartrate (Brovana) 15 mcg IH [id number] [facility] Last Admin: 06/28/16 08:42 Dose: 15 mcg Aspirin (Aspirin Chewable) 81 mg PO 0800 [facility] Last Admin: 06/28/16 08:37 Dose: 81 mg Atorvastatin Calcium (Lipitor) 20 mg PO DIN [facility] Last Admin: 06/27/16 17:37 Dose: 20 mg Budesonide (Pulmicort Respules) 0.5 mg IH [id number] [facility] Last Admin: 06/28/16 08:42 Dose: 0.5 mg Calcium Acetate (Phoslo) 1,334 mg PO WM [facility] Last Admin: 06/28/16 08:39 Dose: 1,334 mg Carvedilol (Coreg) 25 mg PO 0800,1800 [facility] Last Admin: 06/28/16 08:41 Dose: Not Given Fenofibrate (Tricor) 145 mg PO DAILY [facility] Last Admin: 06/27/16 15:46 Dose: 145 mg Gabapentin (Neurontin) 100 mg PO HS [facility] PRN Reason: Protocol Last Admin: 06/27/16 21:52 Dose: 100 mg Insulin Human Regular (Humulin R Low) 0 units SC ACHS [facility] PRN Reason: Protocol Last Admin: 06/28/16 06:46 Dose: 2 units Isosorbide Mononitrate (Imdur) 30 mg PO 0600 [facility] Last Admin: 06/28/16 06:49 Dose: Not Given Levothyroxine Sodium (Synthroid) 50 mcg PO 0600 [facility] Last Admin: 06/28/16 05:53 Dose: 50 mcg Pantoprazole Sodium (Protonix Ec Tab) 20 mg PO 0630 [facility] Last Admin: 06/28/16 05:53 Dose: 20 mg Polyethylene Glycol (Miralax) 17 gm PO DAILY [facility] Last Admin: 06/27/16 12:29 Dose: Not Given Prednisone (Prednisone Tab) 5 mg PO DAILY [facility] - Labs Labs: 06/24/16 09:11 06/23/16 13:55 - Constitutional Appears: Non-toxic, No Acute Distress - Head Exam Head Exam: NORMAL INSPECTION - ENT Exam ENT Exam: Mucous Membranes Moist - Neck Exam Neck Exam: absent: Lymphadenopathy, Meningismus - Respiratory Exam Respiratory Exam: Decreased Breath Sounds - Cardiovascular Exam Cardiovascular Exam: +S1, +S2 - GI/Abdominal Exam GI & Abdominal Exam: Soft. absent: Tenderness Assessment and Plan - Assessment and Plan (Free Text) Plan: Assessment S/P healthcare-associated pneumonia (right upper lobe, bilateral lower lobes), improved clinically and S/P treatment HTN DM CAD with chronic CHF ESRD on HD Plan completed 7 days of Zyvox and Azactam - will continue to monitor off antibiotics since she is at risk for nosocomial infections
--- NOTE | 2016-06-28 21:27 | PN ---
DATE: 06/28/2016 ADDENDUM This patient was seen and evaluated earlier. The patient is now tolerating the diet. The patient dalia cisneros was complaining of some abdominal discomfort. The patient has a history of chronic constipatio n, and also the patient has poor dentures, and part of the problem could be related not chewing the f ood, but presently the patient is tolerating food. No complaints. ON EXAMINATION: Temperature is 98.2, blood pressure is 132/48, pulse 51, O2 saturation 100%, respiration is 18. HENT: Atraumatic. Anicteric. NECK: Supple. HEART: S1, S2 heard. LUNGS: Bilateral air entry present. ABDOMEN: Soft. There is no tenderness. IMPRESSION: This 81-year-old patient with a history of end-stage renal disease on hemodialysis, chronometer tester lorena constipation, history of recurrent diverticulitis in the past, history of colonic poly. Also had ultrasound scan of the abdomen done; showed severe gallbladder sludge. Otherwise, unremarkable. CB C was normal before. The likely cause for abdominal pain in her case could be related to gastroparesis, and the patient luz s very poor dentition. Reasonable thing is to change the diet to soft diet (the patient was reluctan t about the pureed diet), and chew the food well. The patient is already on Protonix; will continue that. Also, the patient has a history of chronic constipation. The patient is also on MiraLax. Will kiran nue that. Thank you very much for allowing us to participate in the care of the patient. Ysabel Theodore MD cc: [id number] TT: 06/28/2016 21:26:33 Confirmation # [id number] Dictation # [id number] tad
[2016-06-29] MEDS: Pantoprazole 20 mg EC Tab PO SCH (06:20)
[2016-06-29] MEDS: Levothyroxine 50 MCG TAB PO SCH (06:20)
[2016-06-29] MEDS: Insulin Reg-LOW-Coverage SC SCH ×4 (06:40→22:09)
[2016-06-29] MEDS: Budesonide 0.5 mg/2 ml Inhal Susp UD IH SCH ×2 (07:14→20:51)
[2016-06-29] MEDS: Arformoterol 15 mcg/2 ml Inh Sol IH SCH ×2 (07:14→20:51)
--- NOTE | 2016-06-29 08:24 | PN ---
DATE: 06/29/2016 SUBJECTIVE: The patient appears comfortable this morning. She is not short of breath at rest. OBJECTIVE: VITAL SIGNS: Temperature is 98.2, pulse 67, respirations 18, blood pressure 167 /46. Oxygen saturation on room air is 100%. HEENT: Normocephalic, atraumatic. No JVD. CARDIOVASCULAR: Positive S1, S2. No S3. LUNGS: Very minimal crackles at the bases. Very minimal/less rhonchi. No wheezing. EXTREMITIES: Less edema. No cyanosis, no clubbing. Calves are nontender to palpation. GASTROINTESTINAL: Abdomen is soft, nontender, nondistended. Bowel sounds are positive. SKIN: No acute rash. NEUROLOGIC: Limited at the present time. IMPRESSION: 1. Recurrent bronchitis. 2. Rule out pneumonia. 3. Chronic obstructive pulmonary disease. 4. Congestive heart failure. 5. Positive troponin, coronary artery disease. 6. End-stage renal disease. 7. Chronic anemia. PLAN: The patient appears very comfortable this morning. She is not short of breath at rest. She states she is feeling much better overall. On physical exam, there is no significant bronchospasm noted. In addition, there is no significant alveolar arterial gradient. Oxygen saturation on room air is now 100%. I will continue with the current nebulizer treatments and low-dose oral steroids (decreased yesterday) for now. Renal and infectious disease evaluations are noted. Again, the clinical status of the patient has certainly improved during her hospital course. However, again, the overall status/ prognosis of this patient remains poor. I will discuss the above with Dr. Ascencio. Joni Perkins MD cc: [phone] TT: 06/29/2016 08:23:43 Confirmation # [id number] Dictation # [id number] matthias NAVARRO
--- NOTE | 2016-06-29 10:28 | PN ---
DATE: 06/29/2016 An 81-year-old female, a chronic dialysis patient receiving dialysis 4 times a week, on transitional care unit receiving occupational and physical therapy. PHYSICAL EXAMINATION: GENERAL: The patient is alert and oriented x 3. NECK: Supple. HEART: S1, S2 rhythm. ABDOMEN: Soft, positive bowel sounds. LUNGS: Rhonchitic. EXTREMITIES: Show no evidence of edema. ASSESSMENT AND PLAN: The patient is receiving dialysis 4 times a week and we are awaiting approval f or the patient to be accepted as a patient on the dialysis unit at [facility] because of the requirement for 4 times a week, given the fact that the patient requires us to obtain adequate vo lume removal during her treatments. She is recuperating from a community-acquired pneumonia. She luz s underlying arteriosclerotic heart disease, ischemic heart disease, carotid disease, peripheral neur opathy, insulin-dependent diabetes, hyperlipidemia, hypertension, diverticulosis, history of divertic ulitis, history of chronic obstructive pulmonary disease, history of congestive heart failure. Will continue to follow the patient closely and await disposition regarding dialysis. Shavonne Ascencio MD cc: [id number] TT: 06/29/2016 10:27:29 Confirmation # [id number] Dictation # [id number] mathtias
[2016-06-29] MEDS: Insulin Human NPH/Reg 70/30 Vial(3 ml) SC SCH ×2 (11:00→17:42)
[2016-06-29] MEDS: POLYETHYLENE GLYCOL 3350 17 GM/Dose PACKET PO SCH (11:01)
--- NOTE | 2016-06-29 12:00 | PN ---
DATE: 06/29/2016 Seen and examined at the bedside earlier today. She complains of back pain today. No abdominal pain . Had a bowel movement yesterday. No diarrhea or any overt GI bleed, tolerating her increased diet. She had eggs, toast. No acute overnight events. VITAL SIGNS: Temperature is 98.2, blood pressure 157/46, pulse 58, respirations 20, 94 room air. LABORATORY DATA: No new labs are noted for today, only POC glucose which is 144. PHYSICAL EXAMINATION: HEENT: Sclerae is anicteric. NECK: Supple. CARDIAC: S1, S2. LUNGS: Decreased breath sounds but good aeration. ABDOMEN: With bowel sounds, soft, nontender. EXTREMITIES: No edema. ASSESSMENT: Improved abdominal pain. She does have chronic constipation, but is now moving her darinel ls; abdominal pain may be secondary to gastroparesis. She does have a history of diverticulosis and diverticulitis in the past, history of colon polyps. We did abdominal x-ray to rule out obstruction that was negative on 06/26. She also has history of end-stage renal disease, is on dialysis and is c urrently awaiting approval to receive dialysis here at [facility] 4 times a week. We will continue her diet as tolerated. The patient does not want a pureed diet so she is on a soft diet. Continue Protonix 20 mg daily and her MiraLax daily. She was started on prednisone and is on aspirin. Seen and discus sed with Dr. Theodore, discussed with Dr. Ascencio. Starr STEPHENSON cc: [id number] TT: 06/29/2016 11:58:50 Confirmation # [id number] Dictation # [id number] an
--- NOTE | 2016-06-29 17:23 | CP.PCM.PN ---
Subjective - Date & Time of Evaluation Date of Evaluation: 06/29/16 Time of Evaluation: 10:45 - Subjective Subjective: Comfortable, no fevers, no cough currently, breathing better. Objective - Vital Signs/Intake and Output Vital Signs (last 24 hours): Temp Pulse Resp BP Pulse Ox 98.2 F 60 18 171/50 H 100 06/28/16 10:00 06/29/16 08:35 06/28/16 10:00 06/29/16 08:35 06/28/16 10:00 - Medications Medications: Current Medications Acetaminophen (Tylenol 325mg Tab) 650 mg PO Q6H PRN PRN Reason: Pain, moderate (4-7) Last Admin: 06/18/16 14:40 Dose: 650 mg Amlodipine Besylate (Norvasc) 5 mg PO 0800 [facility] Last Admin: 06/29/16 08:35 Dose: 5 mg Arformoterol Tartrate (Brovana) 15 mcg IH [id number] [facility] Last Admin: 06/29/16 07:14 Dose: 15 mcg Aspirin (Aspirin Chewable) 81 mg PO 0800 [facility] Last Admin: 06/29/16 08:34 Dose: 81 mg Atorvastatin Calcium (Lipitor) 20 mg PO DIN [facility] Last Admin: 06/28/16 17:30 Dose: 20 mg Budesonide (Pulmicort Respules) 0.5 mg IH [id number] [facility] Last Admin: 06/29/16 07:14 Dose: 0.5 mg Calcium Acetate (Phoslo) 1,334 mg PO WM [facility] Last Admin: 06/29/16 08:36 Dose: 1,334 mg Carvedilol (Coreg) 25 mg PO 0800,1800 [facility] Last Admin: 06/29/16 08:35 Dose: 25 mg Fenofibrate (Tricor) 145 mg PO DAILY [facility] Last Admin: 06/28/16 10:18 Dose: 145 mg Gabapentin (Neurontin) 100 mg PO HS [facility] PRN Reason: Protocol Last Admin: 06/28/16 21:32 Dose: 100 mg Insulin Human Regular (Humulin R Low) 0 units SC ACHS [facility] PRN Reason: Protocol Last Admin: 06/29/16 06:40 Dose: Not Given Isosorbide Mononitrate (Imdur) 30 mg PO 0600 [facility] Last Admin: 06/29/16 06:19 Dose: 30 mg Levothyroxine Sodium (Synthroid) 50 mcg PO 0600 [facility] Last Admin: 06/29/16 06:20 Dose: 50 mcg Pantoprazole Sodium (Protonix Ec Tab) 20 mg PO 0630 [facility] Last Admin: 06/29/16 06:20 Dose: 20 mg Polyethylene Glycol (Miralax) 17 gm PO DAILY [facility] Last Admin: 06/28/16 10:11 Dose: Not Given Prednisone (Prednisone Tab) 5 mg PO 0800 [facility] Last Admin: 06/29/16 08:36 Dose: 5 mg - Labs Labs: 06/24/16 09:11 06/23/16 13:55 - Constitutional Appears: Non-toxic, No Acute Distress - Head Exam Head Exam: NORMAL INSPECTION - ENT Exam ENT Exam: Mucous Membranes Moist - Neck Exam Neck Exam: absent: Lymphadenopathy, Meningismus - Respiratory Exam Respiratory Exam: Decreased Breath Sounds - Cardiovascular Exam Cardiovascular Exam: +S1, +S2 - GI/Abdominal Exam GI & Abdominal Exam: Soft. absent: Tenderness Assessment and Plan - Assessment and Plan (Free Text) Plan: Assessment S/P healthcare-associated pneumonia (right upper lobe, bilateral lower lobes), improved clinically and S/P treatment HTN DM CAD with chronic CHF ESRD on HD Plan completed 7 days of Zyvox and Azactam - will continue to monitor off antibiotics since she is at risk for hospital-acquired infections
--- NOTE | 2016-06-29 22:39 | PN ---
DATE: 06/29/2016 SUBJECTIVE: The patient is seen in the transitional care unit. PHYSICAL EXAMINATION: VITAL SIGNS: Blood pressure 155/55, heart rate 59, respiratory rate 20, temperature 98.1. HEENT: Normocephalic, atraumatic. NECK: Supple, no JVD. LUNGS: Bilateral equal air entry. EXTREMITIES: No lower extremity edema. LABORATORY DATA: No new labs. ASSESSMENT: 1. End-stage renal disease. 2. Status post bilateral pleural effusions/pneumonia. 3. Constipation. 4. Congestive heart failure. PLAN: 1. The patient will require 4 times a week dialysis. 2. Can be discharged to outpatient unit for Sunday, Sunday, Sunday dialysis, with Sunday ultrafi ltration in [facility]. 3. Discussed with Dr. Ascencio. Barbi Linares MD cc: [phone] TT: 06/29/2016 22:38:52 Confirmation # [id number] Dictation # [id number] ln
--- NOTE | 2016-06-30 01:50 | PN ---
DATE: 06/29/2016 ADDENDUM: This patient was seen and evaluated earlier. This is an addendum to the progress report dictated by Starr Bowers NP. The patient is now tolerating the diet, family was at bedside. PHYSICAL EXAMINATION: ABDOMENT: Mild tenderness on deep palpation of epigastric area. The likely cause of the patient's n ausea and epigastric discomfort at this time could be due to gastroparesis and gastric bezoar. The d iet has been changed to soft diet. Thank you very much for allowing us to participate in the care of the patient. Ysabel Theodore MD cc: [phone] TT: 06/30/2016 01:49:40 Confirmation # [id number] Dictation # [id number] mn
[2016-06-30] MEDS: Levothyroxine 50 MCG TAB PO SCH (06:18)
[2016-06-30] MEDS: Pantoprazole 20 mg EC Tab PO SCH (06:18)
[2016-06-30] MEDS: Insulin Reg-LOW-Coverage SC SCH ×4 (06:34→22:15)
[2016-06-30] MEDS: Budesonide 0.5 mg/2 ml Inhal Susp UD IH SCH ×2 (07:26→20:28)
[2016-06-30] MEDS: Arformoterol 15 mcg/2 ml Inh Sol IH SCH ×2 (07:26→20:28)
--- NOTE | 2016-06-30 09:11 | PN ---
DATE: 06/30/2016 SUBJECTIVE: The patient appears comfortable this morning. She is not short of breath at rest. PHYSICAL EXAMINATION: VITAL SIGNS: Temperature is 98.1, pulse 59, respirations 18/20, blood pressure 155/55. Oxygen saturation on nasal cannula is 94%. HEENT: Normocephalic, atraumatic. No JVD. CARDIOVASCULAR: Positive S1, S2. No S3. LUNGS: Minimal crackles at the bases. Minimal/less rhonchi. No wheezing. EXTREMITIES: Less edema. No cyanosis, no clubbing. Calves are nontender to palpation. GASTROINTESTINAL: Abdomen is soft, nontender, nondistended. Bowel sounds are positive. SKIN: No acute rash. NEUROLOGIC: Limited at the present time. IMPRESSION: 1. Recurrent bronchitis. 2. Rule out pneumonia. 3. Chronic obstructive pulmonary disease. 4. Congestive heart failure. 5. Positive troponin, coronary artery disease. 6. End-stage renal disease. 7. Chronic anemia. PLAN: The patient appears very comfortable this morning. She is not short of breath at rest. She states she is feeling better overall. On physical exam, her bronchospasm continues to resolve. In addition, the alveolar-arterial gradient also continues to resolve. I will continue with the current nebulizer treatments and low-dose oral steroids for now. Inputs by renal and infectious disease are noted. Clinical status of the patient is certainly improved -- compared to the initial presentation. However, again, the overall status/ prognosis of this patient remains poor. I will discuss the above with Dr. Ascencio. Joni Perkins MD cc: [phone] TT: 06/30/2016 09:10:26 Confirmation # [id number] Dictation # [id number] MTDD
--- NOTE | 2016-06-30 10:26 | PN ---
DATE: 06/30/2016 An 81-year-old female resting comfortably on transitional care unit. Nursing staff relates that ther e were no problems during the night. PHYSICAL EXAMINATION: GENERAL: She is alert and oriented x 3. VITAL SIGNS: Her temperature is 98, her blood pressure is 120/62, her pulse is 59 regular. NECK: Supple. LUNGS: Show rhonchi at the right base more than left. HEART: Has an S1, S2 rhythm. ABDOMEN: Soft, scaphoid with positive bowel sounds. EXTREMITIES: Show no evidence of edema. LABORATORY DATA: The patient had a blood sugar this morning of 130. She is pending dialysis today and continues occupational and physical therapy. She is awaiting haider tration for the dialysis unit at [facility], and she requires 9-nvd-q-week cycles and feng l continue to be followed by nephrology. She is also being followed by pulmonary for her underlying chronic obstructive pulmonary disease. Gastroenterology saw the patient for some mild abdominal disc omfort. The x-rays of the abdomen were negative. She has been placed on a soft diet. Will continue current level of care and beginning a process of transition for home/outpatient. Shavonne Ascencio MD cc: [phone] TT: 06/30/2016 10:25:42 Confirmation # [id number] Dictation # [id number] matthias
[2016-06-30] MEDS: Insulin Human NPH/Reg 70/30 Vial(3 ml) SC SCH ×2 (10:31→18:19)
[2016-06-30] MEDS: POLYETHYLENE GLYCOL 3350 17 GM/Dose PACKET PO SCH (10:33)
[2016-06-30 10:55] VITALS: RESP 18
--- NOTE | 2016-06-30 13:51 | PN ---
DATE: 06/30/2016 SUBJECTIVE: The patient is seen sitting in chair. She is awake. She is alert. She is comfortable. She reports feeling better. She denies any chest pain, shortness of breath. PHYSICAL EXAMINATION: GENERAL: Elderly lady, sitting in chair. VITAL SIGNS: Blood pressure 126/43, heart rate 53, respiratory rate 18, temperature 97.7. NECK: Supple, no JVD. LUNGS: Bilateral equal air entry, no rales. EXTREMITIES: No lower extremity edema. No new labs. ASSESSMENT: 1. Congestive heart failure. 2. Status post pneumonia. 3. Status post bilateral pleural effusions. 4. Non-insulin dependent diabetes mellitus. 5. End-stage renal disease. PLAN: 1. Dialysis today. 2. Ultrafiltration 1 to 2 kilograms. 3. Ultrafiltration on Sunday. 4. Discharge planning. Barbi Linares MD cc: [phone] TT: 06/30/2016 13:50:59 Confirmation # [id number] Dictation # [id number] en
--- NOTE | 2016-06-30 19:15 | CP.PCM.PN ---
Subjective - Date & Time of Evaluation Date of Evaluation: 06/30/16 Time of Evaluation: 10:50 - Subjective Subjective: Comfortable in bed, not in distress, no fevers, no SOB at rest. Objective - Vital Signs/Intake and Output Vital Signs (last 24 hours): Temp Pulse Resp BP Pulse Ox 98.1 F 52 L 20 120/62 94 L 06/29/16 16:00 06/30/16 08:46 06/29/16 16:00 06/30/16 08:46 06/29/16 16:00 - Medications Medications: Current Medications Acetaminophen (Tylenol 325mg Tab) 650 mg PO Q6H PRN PRN Reason: Pain, moderate (4-7) Last Admin: 06/18/16 14:40 Dose: 650 mg Amlodipine Besylate (Norvasc) 5 mg PO 0800 [facility] Last Admin: 06/30/16 08:46 Dose: 5 mg Arformoterol Tartrate (Brovana) 15 mcg IH [id number] [facility] Last Admin: 06/30/16 07:26 Dose: 15 mcg Aspirin (Aspirin Chewable) 81 mg PO 0800 [facility] Last Admin: 06/30/16 08:46 Dose: 81 mg Atorvastatin Calcium (Lipitor) 20 mg PO DIN [facility] Last Admin: 06/29/16 17:43 Dose: 20 mg Budesonide (Pulmicort Respules) 0.5 mg IH [id number] [facility] Last Admin: 06/30/16 07:26 Dose: 0.5 mg Calcium Acetate (Phoslo) 1,334 mg PO WM [facility] Last Admin: 06/30/16 08:49 Dose: 1,334 mg Carvedilol (Coreg) 25 mg PO 0800,1800 [facility] Last Admin: 06/30/16 08:54 Dose: Not Given Fenofibrate (Tricor) 145 mg PO DAILY [facility] Last Admin: 06/29/16 11:01 Dose: 145 mg Gabapentin (Neurontin) 100 mg PO HS [facility] PRN Reason: Protocol Last Admin: 06/29/16 22:08 Dose: 100 mg Insulin Human Regular (Humulin R Low) 0 units SC ACHS [facility] PRN Reason: Protocol Last Admin: 06/30/16 06:34 Dose: Not Given Isosorbide Mononitrate (Imdur) 30 mg PO 0600 [facility] Last Admin: 03/17/17 06:18 Dose: 30 mg Levothyroxine Sodium (Synthroid) 50 mcg PO 0600 [facility] Last Admin: 06/30/16 06:18 Dose: 50 mcg Pantoprazole Sodium (Protonix Ec Tab) 20 mg PO 0630 [facility] Last Admin: 06/30/16 06:18 Dose: 20 mg Polyethylene Glycol (Miralax) 17 gm PO DAILY [facility] Last Admin: 06/29/16 11:01 Dose: 17 gm Prednisone (Prednisone Tab) 5 mg PO 0800 [facility] Last Admin: 06/30/16 08:49 Dose: 5 mg - Labs Labs: 06/24/16 09:11 06/23/16 13:55 - Constitutional Appears: Non-toxic, No Acute Distress - Head Exam Head Exam: NORMAL INSPECTION - ENT Exam ENT Exam: Mucous Membranes Moist - Neck Exam Neck Exam: absent: Lymphadenopathy, Meningismus - Respiratory Exam Respiratory Exam: Decreased Breath Sounds - Cardiovascular Exam Cardiovascular Exam: +S1, +S2 - GI/Abdominal Exam GI & Abdominal Exam: Soft. absent: Tenderness Assessment and Plan - Assessment and Plan (Free Text) Plan: Assessment S/P healthcare-associated pneumonia (right upper lobe, bilateral lower lobes), improved clinically and S/P treatment HTN DM CAD with chronic CHF ESRD on HD Plan patient has previously completed 7 days of Zyvox and Azactam - will continue to monitor off antibiotics since she is at risk for healthcare-associated infections
[2016-07-01] MEDS: Levothyroxine 50 MCG TAB PO SCH (05:05)
[2016-07-01] MEDS: Pantoprazole 20 mg EC Tab PO SCH (07:03)
[2016-07-01] MEDS: Insulin Reg-LOW-Coverage SC SCH ×2 (07:03→12:37)
[2016-07-01] MEDS: Budesonide 0.5 mg/2 ml Inhal Susp UD IH SCH (07:14)
[2016-07-01] MEDS: Arformoterol 15 mcg/2 ml Inh Sol IH SCH (07:14)
--- NOTE | 2016-07-01 09:03 | PN ---
DATE: 07/01/2016 SUBJECTIVE: The patient is currently seen, she has just completed dialysis. The patient is now comi ng to dialysis 4 times a week and is doing significantly better. The patient is set for likely disch arge later today. She will likely returned to [facility] until the middle of this at which point in time she will transition over to [facility] because of the need 4 t imes a week dialysis, 2.5 liters of fluid removed with dialysis today. MEDICATIONS: Medication list reviewed. The patient is currently on aspirin, Brovana, Coreg, insulin , Imdur, Lipitor, MiraLax, Neurontin, Norvasc, PhosLo, prednisone, Protonix, Pulmicort, Synthroid, Tr icor, Tylenol p.r.n. OBJECTIVE: VITAL SIGNS: Blood pressure 126/43, pulse 53, temperature 97.7, respiratory rate 18. HEENT: Normocephalic, atraumatic. Conjunctivae are pale. Sclerae are nonicteric. NECK: Supple with no neck vein distention. CHEST: Clear to auscultation and percussion. No rales, no rhonchi, no wheezing. CARDIOVASCULAR: Shows a regular rate and rhythm with MR/TR. No rub. No S3, no S4. ABDOMEN: Soft. Bowel sounds normal. No rebound, no guarding, no masses. EXTREMITIES: Show a cannulated left upper extremity AV fistula. No lower extremity cyanosis, clubbi ng or edema. LABORATORY DATA AND IMAGING: CBC from yesterday shows a white blood cell count of 6.5, hemoglobin 9. 2, platelet count 107,000. Chemistries from yesterday show sodium of 128, potassium 5.5, chloride 92 with a CO2 of 25, BUN 77 with a creatinine of 5.6. Glucose is 265. Calcium is 7.5 with a phosphoru s of 3.2, magnesium level was 1.8. ASSESSMENT: Significant improvement in her subjective complaint of shortness of breath with 4 times a week dialysis. Because of the need 4 times a week dialysis, the patient will transition over to [facility]. As per my discussion with the staff in [facility], the patient feng l likely make the change later this week. She will return on Sunday to [facility] and perh aps by Sunday or Sunday she will start at [facility]. 1. Arteriosclerotic heart disease, status post recent non-ST myocardial infarction, history of mild valvular heart disease, ejection fraction 50%. History of congestive heart failure. 2. Anemia secondary to chronic kidney disease. The patient is on Aranesp per protocol. 3. History of secondary hyperparathyroidism. Phosphorus level remains controlled on binder therapy. 4. History of hypothyroidism. The patient will continue thyroid replacement therapy. 5. History of diabetes mellitus with fair control. The patient will continue present medication. PLAN: 1. Discussed with patient in detail, in all likelihood discharge later today. This is also confirme d with the TCU. 2. We will assist patient in the transition over from [facility] to [facility] for dialysis. 3. Continue present medication on discharge. Buck Yanes MD cc: [phone] TT: 07/01/2016 09:03:21 Confirmation # [id number] Dictation # [id number] jn
[2016-07-01 10:39] VITALS: BP 136/68; PULSE 88; TEMP 98.4; O2SAT 96
[2016-07-01] MEDS: POLYETHYLENE GLYCOL 3350 17 GM/Dose PACKET PO SCH (11:12)
[2016-07-01] MEDS: Insulin Human NPH/Reg 70/30 Vial(3 ml) SC SCH (12:37)
--- NOTE | 2016-07-02 10:22 | DS ---
The patient is an 81-year-old female who was on transitional care unit receiving dialysis 4 times a w [place], completing a course of antibiotics for bronchitis and community-acquired pneumonia and being fol lowed for volume overload with chronic renal failure. She also had a history of hemorrhoids, carotid disease, peripheral neuropathy, constipation, COPD and hypothyroid disease. The patient would be go ing home with family to continue dialysis as an outpatient 4 times a week on Ecotrin 81 mg daily. Sh e would be on Coreg 25 mg twice a day. She would be on Humulin 70/30 10 units twice a day, Imdur 30 mg daily, Lipitor 20 mg daily, MiraLax 17 grams daily, Neurontin 100 mg at bedtime, Norvasc 5 mg phan y, PhosLo with meals. She would be on Pulmicort and albuterol treatments at home, Protonix 20 mg [place], Synthroid 50 mcg daily, Tricor 145 mg daily and Tylenol p.r.n. Shavonne Ascencio MD cc: [phone] TT: 07/02/2016 10:21:47 matthias
--- NOTE | 2016-07-03 08:34 | PN ---
DATE: 07/01/2016 The patient is in bed, in no acute distress. The patient was seen earlier in dialysis, doing well, c omplaining of weakness. PHYSICAL EXAMINATION: VITAL SIGNS: Temperature is 97, blood pressure is 160/40, respiratory rate of ____. HEENT: Unremarkable. NECK: Supple. LUNGS: Have decreased breath sounds. HEART: Normal S1, S2. ABDOMEN: Soft, nontender. LABORATORY EXAMINATION: Reveals a white count of 6.5, hemoglobin of 9, platelets of 95 and creatinin e is 5.7. ASSESSMENT AND PLAN: An 81-year-old female with healthcare-associated pneumonia, right upper lobe an d bilateral lower lobes, status post treatment with hypertension, diabetes, coronary artery disease, chronic congestive heart failure, end-stage renal disease on hemodialysis. The patient completed 7 d ays of Zyvox and Azactam. Currently off of antibiotics. Review of the orders confirms the patient t o be off of antibiotics. The patient is on prednisone 5 mg a day. The patient is at risk for develo ping nosocomial infections. Jeromy Castellanos MD cc: [phone] TT: 07/01/2016 11:12:40 Confirmation # [id number] Dictation # [id number] tn
== END 2016-07-01 16:19 | disposition home health service (06) | DRG 193 ==
LOC: TRCU 15:19
PROVIDERS: ADMIT Internal Medicine; ATTEND Internal Medicine
PROC: F07Z9FZ Gait Training/Functional Ambulation Treatment using Assistive, Adaptive, Supportive or Protective Equipment (ICD-10-PCS; principal; 2016-06-17)
PROC: F07M6ZZ Therapeutic Exercise Treatment of Musculoskeletal System - Whole Body (ICD-10-PCS; 2016-06-17)
PROC: F08Z1ZZ Dressing Techniques Treatment (ICD-10-PCS; 2016-06-18)
PROC: F08Z2ZZ Grooming/Personal Hygiene Treatment (ICD-10-PCS; 2016-06-18)
PROC: F08Z0ZZ Bathing/Showering Techniques Treatment (ICD-10-PCS; 2016-06-18)
DX: J18.9 Pneumonia, unspecified organism (principal); N18.6 End stage renal disease; I12.0 Hypertensive chronic kidney disease with stage 5 chronic kidney disease or end stage renal disease; J44.0 Chronic obstructive pulmonary disease with (acute) lower respiratory infection; T18.2XXA Foreign body in stomach, initial encounter; I08.1 Rheumatic disorders of both mitral and tricuspid valves; K31.84 Gastroparesis; I95.3 Hypotension of hemodialysis; N25.81 Secondary hyperparathyroidism of renal origin; J98.11 Atelectasis; I50.9 Heart failure, unspecified; E11.22 Type 2 diabetes mellitus with diabetic chronic kidney disease; G62.9 Polyneuropathy, unspecified; E78.00 Pure hypercholesterolemia, unspecified; E78.5 Hyperlipidemia, unspecified; Z79.4 Long term (current) use of insulin; D63.1 Anemia in chronic kidney disease; E03.9 Hypothyroidism, unspecified; I25.10 Atherosclerotic heart disease of native coronary artery without angina pectoris; K59.09 Other constipation; Z99.2 Dependence on renal dialysis; K57.90 Diverticulosis of intestine, part unspecified, without perforation or abscess without bleeding; J98.01 Acute bronchospasm; Z79.82 Long term (current) use of aspirin; Z79.899 Other long term (current) drug therapy; Z86.010 Personal history of colon polyps; Z87.01 Personal history of pneumonia (recurrent); Z95.5 Presence of coronary angioplasty implant and graft; Z96.642 Presence of left artificial hip joint; K64.9 Unspecified hemorrhoids; K21.9 Gastro-esophageal reflux disease without esophagitis; I25.2 Old myocardial infarction

== ENCOUNTER 2016-07-29 14:15 | Observation (INO) | payer MEDICARE, OTHER ==
[2016-07-29 14:15] VITALS: BMI 265196.3
[2016-07-29 14:20] VITALS: TEMP 98.2
--- NOTE | 2016-07-29 15:15 | ED PDOC ---
Arrival/HPI - General Chief Complaint: Dizziness/Lightheaded Time Seen by Provider: 07/29/16 14:32 Historian: Patient - History of Present Illness Narrative History of Present Illness (Text): 07/29/16 14:54 Margo Uriarte is an 81 year old female, whose past emdical hitsory includes dialysis (M,W,Th,Sat) who presents to the emergency department complaining of sudden onset of dizziness during dialysis prior to arrival. Patient states that she was in dialysis for 2 hours when she felt the room spinning and "everything was yellow." Patient notes that she has had these symptoms before. At presents, patient is feeling better but has a slight headache. Patient denies any other complaint at this time. PMD: Dr. Ascencio Time/Duration: Prior to Arrival Symptom Onset: Sudden Symptom Course: Improving Severity Level: Mild Activities at Onset: Light Context: Home Past Medical History - Provider Review Nursing Documentation Reviewed: Yes - Infectious Disease Hx of Infectious Diseases: None - Tetanus Immunization Tetanus Immunization: Unknown - Reproductive Menopause: Yes - Cardiac Hx Cardiac Disorders: Yes Hx Congestive Heart Failure: Yes Hx Hypertension: Yes - Pulmonary Hx Chronic Obstructive Pulmonary Disease (COPD): Yes - Neurological Hx Neurological Disorder: Yes Hx Dizziness: Yes Other/Comment: numbness tingling left leg and left foot - HEENT Hx HEENT Disorder: Yes Hx Cataracts: Yes (b/l sx) - Renal Hx Renal Failure: Yes - Endocrine/Metabolic Hx Diabetes Mellitus Type 2: Yes Hx Hypothyroidism: Yes - Hematological/Oncological Hx Blood Disorders: Yes Hx Anemia: Yes - Integumentary Hx Dermatological Disorder: Yes Other/Comment: age spots to face chest arms legs - Musculoskeletal/Rheumatological Hx Falls: Yes (past) - Gastrointestinal Hx Gastrointestinal Disorders: Yes (H/O GI BLEED,DIVETICULOSIS,CONSTIPATION) - Genitourinary/Gynecological Hx Genitourinary Disorders: Yes (CRF ON HD) - Psychiatric Hx Psychophysiologic Disorder: No Hx Substance Use: No - Surgical History Hx Cardiac Catheterization: Yes Hx Coronary Stent: Yes (left carotid) Hx Joint Replacement: Yes (left hip replacement) Other/Comment: left arm av shunt - Anesthesia Hx Anesthesia: Yes Hx Anesthesia Reactions: No Hx Malignant Hyperthermia: No - Suicidal Assessment Feels Threatened In Home Enviroment: No Family/Social History - Physician Review Nursing Documentation Reviewed: Yes Family/Social History: No Known Family HX Smoking Status: Never Smoked Hx Alcohol Use: No Hx Substance Use: No Hx Substance Use Treatment: No Allergies/Home Meds Allergies/Adverse Reactions: Allergies ceftriaxone Allergy (Verified 07/29/16 14:20) ITCHING Home Medications: Home Meds Medication Instructions Recorded Confirmed Calcium Acetate [Phoslo] 1,334 mg PO TID 06/12/16 07/29/16 Review of Systems - Review of Systems Constitutional: absent: Fevers, Night Sweats Eyes: absent: Vision Changes ENT: absent: Hearing Changes Respiratory: absent: SOB, Cough Cardiovascular: absent: Chest Pain Gastrointestinal: absent: Abdominal Pain Genitourinary Female: absent: Urine Output Changes Musculoskeletal: absent: Back Pain, Neck Pain Skin: absent: Rash Neurological: Dizziness Endocrine: absent: Diaphoresis Hemo/Lymphatic: absent: Adenopathy Psychiatric: absent: Depression Physical Exam Vital Signs Reviewed: Yes Vital Signs Temp Pulse Resp BP Pulse Ox 07/29/16 21:01 83 19 167/57 H 99 07/29/16 19:36 77 20 175/58 H 97 07/29/16 16:13 69 18 122/67 98 07/29/16 14:26 98.2 F 74 18 124/60 98 07/29/16 14:16 98.2 F 74 19 124/60 98 Temperature: Afebrile Blood Pressure: Normal Pulse: Regular Respiratory Rate: Normal Appearance: Positive for: Well-Appearing, Non-Toxic, Comfortable Pain Distress: None Mental Status: Positive for: Alert and Oriented X 3 - Systems Exam Head: Present: Atraumatic, Normocephalic Pupils: Present: PERRL Extroacular Muscles: Present: EOMI Conjunctiva: Present: Normal Mouth: Present: Moist Mucous Membranes Neck: Present: Normal Range of Motion Respiratory/Chest: Present: Clear to Auscultation, Good Air Exchange. No: Respiratory Distress, Accessory Muscle Use Cardiovascular: Present: Regular Rate and Rhythm, Normal S1, S2. No: Murmurs Abdomen: Present: Normal Bowel Sounds. No: Tenderness, Distention, Peritoneal Signs Back: Present: Normal Inspection Upper Extremity: Present: Other (Dialysis fistula on left UE - audible bruit) Lower Extremity: Present: Normal Inspection. No: Edema Neurological: Present: GCS=15, CN II-XII Intact, Speech Normal, Motor Func Grossly Intact, Normal Sensory Function, Normal Cerebellar Funct, Norm Deep Tendon Reflexes, Gait Normal, Memory Normal, Normal 2Pt Descrimination Skin: Present: Warm, Dry, Normal Color. No: Rashes Psychiatric: Present: Alert, Oriented x 3, Normal Insight, Normal Concentration Medical Decision Making ED Course and Treatment: EKG: Ordered, reviewed, and independently interpreted the EKG. Rate : 73 BPM Rhythm : NSR Interpretation : 1st degree AV block, non specific T-wave abnormality Comparison : Simliar to prior on 06/15/16 07/29/16 16:19 Reviewed radiology, chest x-ray shows mild venous congestion. Significantly improved from prior study 06/15/16. Disc w pcp Dr Ascencio who eval the pt in the ED and agrees w plan for dc home after dialysis. 07/29/16 16:[address] w/o contrast: Creator : Luciano Gomez MD FINDINGS: HEMORRHAGE:The no acute parenchymal, subarachnoid or extra-axial hemorrhage. BRAIN: Mild moderate diffuse/confluent chronic periventricular white matter ischemic changes are again seen extending peripherally into the deep and subcortical white matter both cerebral hemispheres. There may also be some minor extension of these changes into white matter tracts of both basal nuclei. Additionally, there are scattered subcortical chronic white matter ischemic changes the most conspicuous of which is located in the left frontal region. Dense vascular calcifications of the carotid siphons VENTRICLES:Unremarkable. No hydrocephalus. Moderate generalized volume loss. No evidence of obstructive type hydrocephalus. CALVARIUM:Unremarkable. PARANASAL SINUSES: There is opacification of several bilateral posterior superior ethmoid air cells MASTOID AIR CELLS:Unremarkable as visualized. No inflammatory changes. OTHER FINDINGS:Changes of bilateral cataract surgery again noted IMPRESSION: No acute intracranial hemorrhage. Chronic white matter and suspected basal nuclei ischemic changes. Moderate generalized volume loss. Opacification of several bilateral posterior superior ethmoid air cells. 07/29/16 20:23 Patient returns from dialysis asymptomatic, patient has no complaints. Will discharge home. 07/30/16 19:05 - Medication Orders Current Medication Orders: Discontinued Medications Acetaminophen (Tylenol 325mg Tab) 650 mg PO STAT STA Stop: 07/29/16 15:04 Last Admin: 07/29/16 15:31 Dose: 650 MG MAR Pain/Vitals Document 07/29/16 15:31 [email or web address] (Rec: 07/29/16 15:31 [email or web address] [facility] [id number] Pain Reassessment Is This A Pain ReAssessment? No Sleep Is patient sleeping during reassessment? No Presence of Pain Presence of Pain Yes Pain Scale Used Pain Scale Used Numeric Location Pain Location Body Physical Geographer Description Constant Intensity 3 Scale Used Numeric Pain Behavior Facial Grimacing Aggravating Factors Changing Position Aggravating Factors Changing Position ED OBSERVATION Discharge: Yes Date of observation admission: 07/29/16 Time of observation admission: 15:00 - Observation admission statement Patient is being placed in observation because:: dialysis - Scribe Statement The provider has reviewed the documentation as recorded by the Kyle Marcus Provider Scribe Attestation: All medical record entries made by the Calvinibe were at my direction and personally dictated by me. I have reviewed the chart and agree that the record accurately reflects my personal performance of the history, physical exam, medical decision making, and the department course for this patient. I have also personally directed, reviewed, and agree with the discharge instructions and disposition. Disposition/Present on Arrival - Present on Arrival Any Indicators Present on Arrival: No History of DVT/PE: No History of Uncontrolled Diabetes: No Urinary Catheter: No History of Decub. Ulcer: No History Surgical Site Infection Following: None - Disposition Have Diagnosis and Disposition been Completed?: Yes Diagnosis: Dizziness Disposition: HOME/ ROUTINE Disposition Time: 20:24 Patient Plan: Discharge Patient Problems: Current Active Problems Problem Status Diagnosed Constipation Acute Dehydration Acute GI bleed Acute Hemorrhoids Acute Rectal bleeding Acute Syncope, near Acute Diverticulosis Chronic Condition: GOOD
[2016-07-29 15:32] LABS: ADD MANUAL DIFF? NO
[2016-07-29 15:40] LABS: EOS % 0.5 % (1.5-5.0); GRAN # 4.09 (1.4-6.5); GRAN % 65.4 % (50.0-68.0); HEMATOCRIT 31.7 % (36.0-48.0); LYMPH # 1.7 (1.2-3.4); LYMPH % 27.2 % (22.0-35.0); MEAN CELL VOLUME 101.9 fL (80.0-105.0); MEAN CORPUSCULAR HEMOGLOBIN 33.4 pg (25.0-35.0); MEAN CORPUSCULAR HGB CONC 32.8 g/dl (31.0-37.0); MEAN PLATELET VOLUME 9.8 fl (7.0-11.0); MONO # 0.4 (0.1-0.6); MONO % 6.9 % (1.0-6.0); PLATELET COUNT 252 10^3/uL (120.0-450.0); WHITE BLOOD COUNT 6.3 10^3/ul (4.5-11.0)
--- NOTE | 2016-07-29 16:01 | CT ---
PROCEDURE: CT HEAD WITHOUT CONTRAST. HISTORY: headache COMPARISON: Comparison made with CT scan brain dated 04/29/2015. TECHNIQUE: Axial computed tomography images were obtained through the head/brain without intravenous contrast. Radiation dose: Total exam DLP = 677.45 mGy-cm. This CT exam was performed using one or more of the following dose reduction techniques: Automated exposure control, adjustment of the mA and/or kV according to patient size, and/or use of iterative reconstruction technique. FINDINGS: HEMORRHAGE: The no acute parenchymal, subarachnoid or extra-axial hemorrhage. BRAIN: Mild moderate diffuse/confluent chronic periventricular white matter ischemic changes are again seen extending peripherally into the deep and subcortical white matter both cerebral hemispheres. There may also be some minor extension of these changes into white matter tracts of both basal nuclei. Additionally, there are scattered subcortical chronic white matter ischemic changes the most conspicuous of which is located in the left frontal region. Dense vascular calcifications of the carotid siphons VENTRICLES: Unremarkable. No hydrocephalus. Moderate generalized volume loss. No evidence of obstructive type hydrocephalus. CALVARIUM: Unremarkable. PARANASAL SINUSES: There is opacification of several bilateral posterior superior ethmoid air cells MASTOID AIR CELLS: Unremarkable as visualized. No inflammatory changes. OTHER FINDINGS: Changes of bilateral cataract surgery again noted IMPRESSION: No acute intracranial hemorrhage. Chronic white matter and suspected basal nuclei ischemic changes. Moderate generalized volume loss. Opacification of several bilateral posterior superior ethmoid air cells.
[2016-07-29 16:10] LABS: ALB/GLOB RATIO 0.8 (1.1-1.8); BILIRUBIN,TOTAL 0.9 mg/dL (0.2-1.3); CALCIUM 8.2 mg/dL (8.4-10.5); POTASSIUM 4.1 mmol/L (3.6-5.0)
[2016-07-29 16:21] LABS: TROPONIN I 0.06 ng/mL
--- NOTE | 2016-07-29 16:34 | RAD ---
HISTORY: dizzy COMPARISON: Comparison made with prior chest radiograph 06/15/2016 FINDINGS: LUNGS: There appears to be mild residual mild chronic compensated pulmonary vascular congestion/ CHF however markedly improved from prior exam. Improved effusions. PLEURA: No pneumothorax apparent. CARDIOVASCULAR: Heart size is borderline -mildly OSSEOUS STRUCTURES: No significant abnormalities. VISUALIZED UPPER ABDOMEN: Normal. OTHER FINDINGS: None. IMPRESSION: There appears to be mild residual mild chronic compensated pulmonary vascular congestion/ CHF however markedly improved from prior exam. Improved effusions.
[2016-07-29 21:01] VITALS: BP 167/57; O2SAT 99
[2016-07-29 21:20] VITALS: PULSE 82; RESP 16
--- NOTE | 2016-07-30 09:45 | CARD ---
APPROVED REPORT EKG Measurement Heart [id number] [id number] <Conclusion> Sinus rhythm with 1st degree AV block PRWP STTW changes c/w ischemia, new
== END 2016-07-29 20:25 | disposition home or self-care (01) ==
LOC: ED 14:15 → EROBSV 15:00
PROVIDERS: ADMIT Emergency Medicine; ATTEND Emergency Medicine
DX: R42 Dizziness and giddiness (principal); I10 Essential (primary) hypertension; Z99.2 Dependence on renal dialysis
CPT/HCPCS: 70450; 71010; 80053; 84484; 85025; 93005; 99285; G0378

== ENCOUNTER 2016-09-22 17:12 | Inpatient (IN) | payer MEDICARE, OTHER ==
[2016-09-22 17:17] VITALS: BMI 23.0
--- NOTE | 2016-09-22 17:32 | ED PDOC ---
Arrival/HPI - General Chief Complaint: Trauma Time Seen by Provider: 09/22/16 17:13 Historian: Patient - History of Present Illness Narrative History of Present Illness (Text): 09/22/16 17:36 An 81 year old female, whose past medical history includes end stage renal disease (on dialysis), presents to the emergency department complaining of right sided abdominal pain during dialysis. Patient notes felt weak and fell into bedpost yesterday. Patient only has pain to right side of abdomen and denies any other complaints at this time. Symptom Onset: Sudden Symptom Course: Unchanged Activities at Onset: Other (dialysis) Associated Symptoms (Text): weakness Past Medical History - Provider Review Nursing Documentation Reviewed: Yes - Infectious Disease Hx of Infectious Diseases: None - Tetanus Immunization Tetanus Immunization: Unknown - Reproductive Menopause: Yes - Cardiac Hx Cardiac Disorders: Yes Hx Congestive Heart Failure: Yes Hx Hypertension: Yes - Pulmonary Hx Chronic Obstructive Pulmonary Disease (COPD): Yes - Neurological Hx Neurological Disorder: Yes Hx Dizziness: Yes Other/Comment: numbness tingling left leg and left foot - HEENT Hx HEENT Disorder: Yes Hx Cataracts: Yes (b/l sx) - Renal Hx Dialysis: Yes (MWF) Type of Dialysis Access: left av fistula Date of Last Dialysis Treatment: 09/22/16 Hx Renal Failure: Yes - Endocrine/Metabolic Hx Diabetes Mellitus Type 2: Yes Hx Hypothyroidism: Yes - Hematological/Oncological Hx Blood Disorders: Yes Hx Anemia: Yes - Integumentary Hx Dermatological Disorder: Yes Other/Comment: age spots to face chest arms legs - Musculoskeletal/Rheumatological Hx Falls: Yes (past) - Gastrointestinal Hx Gastrointestinal Disorders: Yes (H/O GI BLEED,DIVETICULOSIS,CONSTIPATION) - Genitourinary/Gynecological Hx Genitourinary Disorders: Yes (CRF ON HD) - Psychiatric Hx Psychophysiologic Disorder: No Hx Substance Use: No - Surgical History Hx Cardiac Catheterization: Yes Hx Coronary Stent: Yes (left carotid) Hx Joint Replacement: Yes (left hip replacement) Other/Comment: left arm av shunt - Anesthesia Hx Anesthesia: Yes Hx Anesthesia Reactions: No Hx Malignant Hyperthermia: No - Suicidal Assessment Feels Threatened In Home Enviroment: No Family/Social History - Physician Review Nursing Documentation Reviewed: Yes Family/Social History: No Known Family HX Smoking Status: Never Smoked Hx Alcohol Use: No Hx Substance Use: No Hx Substance Use Treatment: No Allergies/Home Meds Allergies/Adverse Reactions: Allergies ceftriaxone Allergy (Verified 09/22/16 17:20) ITCHING Home Medications: Home Meds Medication Instructions Recorded Confirmed Calcium Acetate [Phoslo] 1,334 mg PO TID 06/12/16 09/22/16 Review of Systems - Review of Systems Constitutional: Other (weakness) Eyes: Normal ENT: Normal Respiratory: Normal Cardiovascular: Normal Gastrointestinal: Abdominal Pain (Right sided) Genitourinary Female: Normal Musculoskeletal: Normal Skin: Normal Neurological: Normal Endocrine: Normal Hemo/Lymphatic: Normal Psychiatric: Normal Physical Exam Vital Signs Reviewed: Yes Vital Signs Temp Pulse Resp BP Pulse Ox 09/22/16 20:20 98.3 F 73 25 H 162/54 H 95 09/22/16 17:22 99.0 F 74 24 180/78 H 100 Temperature: Afebrile Blood Pressure: Hypertensive Pulse: Regular Respiratory Rate: Normal Appearance: Positive for: Well-Appearing, Non-Toxic, Comfortable Pain Distress: None Mental Status: Positive for: Alert and Oriented X 3 - Systems Exam Head: Present: Atraumatic, Normocephalic Pupils: Present: PERRL Extroacular Muscles: Present: EOMI Conjunctiva: Present: Normal Mouth: Present: Moist Mucous Membranes Neck: Present: Normal Range of Motion Respiratory/Chest: Present: Clear to Auscultation, Good Air Exchange. No: Respiratory Distress, Accessory Muscle Use Cardiovascular: Present: Regular Rate and Rhythm, Normal S1, S2. No: Murmurs Abdomen: Present: Tenderness (RUQ), Normal Bowel Sounds, Other (RUQ ecchymosis) . No: Distention, Peritoneal Signs Back: Present: Normal Inspection Upper Extremity: Present: Normal Inspection. No: Cyanosis, Edema Lower Extremity: Present: Normal Inspection. No: Edema Neurological: Present: GCS=15, CN II-XII Intact, Speech Normal Skin: Present: Warm, Dry, Normal Color. No: Rashes Psychiatric: Present: Alert, Oriented x 3, Normal Insight, Normal Concentration Medical Decision Making ED Course and Treatment: 09/22/16 17:29 Impression: An 81 year old female with right sided abdominal pain. Differential Diagnosis included but are not limited to: weakness- r/o cardiac, metabolic infectious etilogy- abdominal trauma - r/o liver laceration. Plan: -- EKG -- CT chest, abd, pelvis -- CT head -- chest xray -- labs -- Urinalysis -- Reassess and disposition Prior Visits: Notes and results from previous visits were reviewed. Patient last reported to the emergency department on 07/29/16 for evaluation of dizziness. Progress Notes: EKG: Ordered, reviewed, and independently interpreted the EKG. Rate : 69 BPM Rhythm : NSR Interpretation : nonspecific ST/T changes, no interval changes CT Head Without Intravenous Contrast FINDINGS: LIMITATIONS: Asymmetric positioning of the patient's head in the CT gantry. BRAIN: Stable tiny calcification in the left temporal lobe. Areas of hypodensity seen in the white matter bilaterally, nonspecific in appearance, but most likely representing chronic small vessel ischemic changes, in a patient of this age. No significant acute abnormality identified. No acute hemorrhage seen within the brain. No acute extra-axial fluid collections visualized. No evidence of significant mass effect within the brain. VENTRICLES: No evidence of significant hydrocephalus. BONES/JOINTS: No acute fractures or other acute bony abnormality noted. SOFT TISSUES: Soft tissue swelling in the left scalp. SINUSES: Mild opacification of the bilateral posterior ethmoid sinuses. Remaining visualized paranasal sinuses appear clear. MASTOID AIR CELLS: Mastoid air cells appear clear. IMPRESSION: - No evidence of acute intracranial injury or fractures. Dictated and Authenticated by: Cyndy Rosas MD 09/22/2016 7:44 PM Eastern Time ([place] & [place]) CT Chest With Intravenous Contrast CT Abdomen and Pelvis With Intravenous Contrast IMPRESSION: - Bilateral pleural effusions, also seen on a prior CT of 06/17/2016. No evidence of hemothorax or pneumothorax. - Subtle, diffuse groundglass density in the lungs bilaterally. Appearance is nonspecific, but could represent mild pulmonary vascular congestion. Recommend clinical correlation. - Otherwise, no evidence of significant acute process. No evidence of acute fractures, acute traumatic organ injury, or hemoperitoneum. - Incidental 6 mm pumonary nodule and 11 mm thyroid nodule. See recommendations above. - See above for remaining findings. Dictated and Authenticated by: Cyndy Rosas MD 09/22/2016 8:08 PM Eastern Time ([place] & [place]) 09/22/16 20:22 pt with intial history concerning to r/o abdomianl bleeding. intial ekg shows ? elevatation v3. pt w/o history concerning for acs. also concern for intrabdominal trauma. discussed with dr gomez. not code heart candidate. noted mildly elevated trop. lovenox ordered after ct neg for bleed. case discussed with dr ascencio. agrees to admission. case discussed with dr anaya who agrees to iv contrast and will obtain hd in weekend. - Lab Interpretations Lab Results: 09/22/16 17:35 09/22/16 17:35 Lab Results 09/22/16 17:35: Blood Type O POSITIVE, Antibody Screen Negative, BBK History Checked Patient has bt 09/22/16 17:35: Sodium 137, Potassium 3.8, Chloride 97 L, Carbon Dioxide 30, Anion Gap 14, BUN 18, Creatinine 2.5 H, Est GFR ( Amer) 22, Est GFR (Non- Af Amer) 18, Random Glucose 71, Calcium 9.0, Total Bilirubin 1.0, AST 42 H, ALT 20, Alkaline Phosphatase 88, Lactate Dehydrogenase 438, Total Creatine Kinase 43 , Troponin I 0.28 H* D, Total Protein 8.5 H, Albumin 3.9, Globulin 4.6, Albumin/ Globulin Ratio 0.8 L, Amylase 69, Lipase 47 09/22/16 17:35: PT 11.5, INR 1.06, APTT 26.5 09/22/16 17:35: WBC 7.2, RBC 3.42 L, Hgb 11.2 L, Hct 35.2 L, MCV 102.9, MCH 32.7 , MCHC 31.8, RDW 15.5 H, Plt Count 165, MPV 8.5, Gran % 69.9 H, Lymph % (Auto) 24.9, [place] % (Auto) 4.7, Eos % (Auto) 0.4 L, Baso % (Auto) 0.1, Gran # 5.03, Lymph # 1.8, [place] # 0.3, Eos # 0.0, Baso # 0.01 I have reviewed the lab results: Yes - RAD Interpretation Radiology Orders: 09/22/16 17:23 CHEST,ABD,PEL W/IV CONT ONLY [CT] Stat CHEST PORTABLE [RAD] Stat 09/22/16 17:29 HEAD W/O CONTRAST [CT] Stat - EKG Interpretation Interpreted by ED Physician: Yes Type: 12 lead EKG - Medication Orders Current Medication Orders: Discontinued Medications Iohexol (Omnipaque 350 100 Ml) Confirm Administered Dose 350 mg .ROUTE .STK-MED ONE Stop: 09/22/16 18:04 - Scribe Statement The provider has reviewed the documentation as recorded by the Kyle Julien Provider Scribe Attestation: All medical record entries made by the Scribe were at my direction and personally dictated by me. I have reviewed the chart and agree that the record accurately reflects my personal performance of the history, physical exam, medical decision making, and the department course for this patient. I have also personally directed, reviewed, and agree with the discharge instructions and disposition. Disposition/Present on Arrival - Present on Arrival Any Indicators Present on Arrival: No History of DVT/PE: No History of Uncontrolled Diabetes: No Urinary Catheter: No History of Decub. Ulcer: No History Surgical Site Infection Following: None - Disposition Have Diagnosis and Disposition been Completed?: Yes Diagnosis: Abdominal trauma, NSTEMI (non-ST elevated myocardial infarction), Weakness Disposition: HOSPITALIZED Disposition Time: 20:25 Condition: FAIR Discharge Instructions (ExitCare): Weakness (ED) Referrals: Shavonne Ascencio MD [Primary Care Provider] - Follow up with primary
[2016-09-22 17:48] LABS: ADD MANUAL DIFF? NO
[2016-09-22 17:53] LABS: BASO # 0.01 K/mm3 (0.0-2.0); BASO % 0.1 % (0.0-3.0); EOS % 0.4 % (1.5-5.0); GRAN # 5.03 (1.4-6.5); GRAN % 69.9 % (50.0-68.0); HEMATOCRIT 35.2 % (36.0-48.0); LYMPH # 1.8 (1.2-3.4); LYMPH % 24.9 % (22.0-35.0); MEAN CELL VOLUME 102.9 fL (80.0-105.0); MEAN CORPUSCULAR HEMOGLOBIN 32.7 pg (25.0-35.0); MEAN CORPUSCULAR HGB CONC 31.8 g/dl (31.0-37.0); MEAN PLATELET VOLUME 8.5 fl (7.0-11.0); MONO # 0.3 (0.1-0.6); MONO % 4.7 % (1.0-6.0); PLATELET COUNT 165 10^3/uL (120.0-450.0); RED CELL DISTRIBUTION WIDTH 15.5 % (11.5-14.5); WHITE BLOOD COUNT 7.2 10^3/ul (4.5-11.0)
[2016-09-22] MEDS ORDERED: Iohexol 350 MG/100 ML VIAL ONE (18:03)
[2016-09-22 18:04] LABS: ALB/GLOB RATIO 0.8 (1.1-1.8); INR 1.06 (0.93-1.08); PARTIAL THROMBOPLASTIN TIME 26.5 Seconds (23.7-30.8); POTASSIUM 3.8 mmol/L (3.6-5.0); TOTAL PROTEIN 8.5 g/dL (5.8-8.3)
[2016-09-22 18:19] LABS: TROPONIN I 0.28 ng/mL
--- NOTE | 2016-09-22 19:44 | CT ---
EXAM: CT Head Without Intravenous Contrast CLINICAL HISTORY: 81 years old, female; Injury or trauma; Fall; Initial encounter; Abrasion; Head, generalized; Additional info: Trauma/luz TECHNIQUE: Axial computed tomography images of the head/brain without intravenous contrast. This CT exam was performed using one or more of the following dose reduction techniques: automated exposure control, adjustment of the mA and/or kV according to patient size, and/or use of iterative reconstruction technique. EXAM DATE/TIME: 09/22/2016 5:29 PM COMPARISON: Prior head CT of 07/29/2016 FINDINGS: LIMITATIONS: Asymmetric positioning of the patient's head in the CT gantry. BRAIN: Stable tiny calcification in the left temporal lobe. Areas of hypodensity seen in the white matter bilaterally, nonspecific in appearance, but most likely representing chronic small vessel ischemic changes, in a patient of this age. No significant acute abnormality identified. No acute hemorrhage seen within the brain. No acute extra-axial fluid collections visualized. No evidence of significant mass effect within the brain. VENTRICLES: No evidence of significant hydrocephalus. BONES/JOINTS: No acute fractures or other acute bony abnormality noted. SOFT TISSUES: Soft tissue swelling in the left scalp. SINUSES: Mild opacification of the bilateral posterior ethmoid sinuses. Remaining visualized paranasal sinuses appear clear. MASTOID AIR CELLS: Mastoid air cells appear clear. IMPRESSION: - No evidence of acute intracranial injury or fractures. - See above for remaining findings.
--- NOTE | 2016-09-22 20:08 | CT ---
EXAM: CT Chest With Intravenous Contrast CT Abdomen and Pelvis With Intravenous Contrast CLINICAL HISTORY: 81 years old, female; Injury or trauma; Fall; Initial encounter; Abrasion; Additional info: Trauma, right sided pain TECHNIQUE: Axial computed tomography images of the chest, abdomen and pelvis with intravenous contrast. This CT exam was performed using one or more of the following dose reduction techniques: automated exposure control, adjustment of the mA and/or kV according to patient size, and/or use of iterative reconstruction technique. This CT exam was performed using one or more of the following dose reduction techniques: automated exposure control, adjustment of the mA and/or kV according to patient size, and/or use of iterative reconstruction technique. Coronal and sagittal reformatted images were created and reviewed. CONTRAST: 100 mL of omni administered intravenously. EXAM DATE/TIME: 09/22/2016 5:23 PM COMPARISON: Prior CT chest of 06/17/2016 FINDINGS: LIMITATIONS: Streak artifact from an arthroplasty device in the left hip. CHEST: LUNGS: Heterogeneous/mosaic appearance of the lung parenchyma diffusely, suspicious for mild, diffuse bilateral ground glass consolidation Incidental 6 mm noncalcified pulmonary nodule in the right middle lobe, image 86 of series 2, stable in appearance. In low-risk patients (minimal or absent history of smoking or other known risk factors), recommend CT at 12 months. If stable, no further follow-up. For high-risk patients (history of smoking or other known risk factors), recommend initial CT at 6-12 months. If stable, repeat CT at 18-24 months. PLEURAL SPACE: Bilateral pleural effusions, small to moderate in size, and decreased in size compared to the prior CT. These do not appear hyperdense to suggest hemothoraces. No pneumothorax seen. HEART: Heart appears mildly enlarged. Coronary artery calcification. No evidence of significant pericardial effusion. MEDIASTINUM: No evidence of pneumomediastinum. THYROID: Incidental 11 mm left thyroid nodule. Recommend thyroid ultrasound or scintigraphy for further evaluation, given the size of this nodule, on a nonemergent basis, unless otherwise clinically indicated. ABDOMEN: LIVER: Fatty infiltration of the liver. No evidence of liver laceration. GALLBLADDER AND BILE DUCTS: Multiple small gallstones. No evidence of pericholecystic fluid. PANCREAS: No evidence of peripancreatic fluid. SPLEEN: No evidence of splenic laceration. ADRENALS: No evidence of adrenal hemorrhage/hematoma. KIDNEYS AND URETERS: Kidneys appear atrophic. 12 mm low density lesion in the left kidney, most likely a cyst. Bilateral renal vascular calcifications. No evidence of perinephric hemorrhage. STOMACH AND BOWEL: Extensive colonic diverticulosis, without evidence of acute diverticulitis. No acute abnormality of the bowel identified. No evidence of large mesenteric hematoma. No evidence of bowel obstruction. APPENDIX: Normal appendix is not seen, however, there are no significant inflammatory changes visualized in the expected location of the appendix to suggest appendicitis. Recommend clinical correlation. PELVIS: BLADDER: No acute abnormality of the bladder identified. REPRODUCTIVE:No acute abnormality of the reproductive organs is seen. No acute abnormality of the uterus identified. No evidence of large adnexal masses. CHEST, ABDOMEN and PELVIS: INTRAPERITONEAL SPACE: No evidence of free intraperitoneal air or fluid. RETROPERITONEAL SPACE: No evidence of retroperitoneal hemorrhage. BONES/JOINTS: Bony structures appear demineralized.No acute fractures are seen. SOFT TISSUES: No acute abnormality of the visualized soft tissues is seen. VASCULATURE: Extensive atherosclerotic calcification. No evidence of periaortic hemorrhage. No evidence of aortic dissection. LYMPH NODES: Stable appearance of multiple small mediastinal lymph nodes, the largest of which measures 19 x 11 mm. This is a nonspecific finding. No evidence of diffuse pathologic lymphadenopathy. IMPRESSION: - Bilateral pleural effusions, also seen on a prior CT of 06/17/2016. No evidence of hemothorax or pneumothorax. - Subtle, diffuse groundglass density in the lungs bilaterally. Appearance is nonspecific, but could represent mild pulmonary vascular congestion. Recommend clinical correlation. - Otherwise, no evidence of significant acute process. No evidence of acute fractures, acute traumatic organ injury, or hemoperitoneum. - Incidental 6 mm pumonary nodule and 11 mm thyroid nodule. See recommendations above. - See above for remaining findings.
[2016-09-22] MEDS ORDERED: Enoxaparin 60 mg Syringe SC STA (20:19)
--- NOTE | 2016-09-22 23:37 | HP ---
HISTORY OF PRESENT ILLNESS: An 81-year-old female while on dialysis today complained of abdominal di scomfort and chest discomfort and was referred to [facility]. The patient states that ye sterday she had a slight fall at home sustaining a bruise to the upper abdominal area on the right an d today while on dialysis, she was having pain and was referred from the dialysis unit to the Emergen cy Room. PAST MEDICAL HISTORY: The patient has a past medical history of CHF, coronary artery disease, caroti d disease, hyperlipidemia, insulin-dependent diabetes, COPD, pneumonia, paroxysmal atrial fibrillatio n, chronic renal disease on dialysis 4 days a week, arthritis, hypothyroid disease. SOCIAL HISTORY: She is a nonsmoker, nondrinker, nondrug user. ALLERGIES: CEFTRIAXONE. HOME MEDICATIONS: Consist of Norvasc 5 mg daily, Protonix 20 mg daily, Synthroid 50 mcg daily, Imdur 30 mg daily, insulin 70/30 ten units subQ b.i.d., Neurontin 100 mg at bedtime, Tricor 145 mg daily, Coreg 25 mg twice a day, PhosLo 1334 mg 3 times a day, Lipitor 20 mg daily and Ecotrin 81 mg daily. PHYSICAL EXAMINATION: VITAL SIGNS: Temp is orally 99, blood pressure was 180/78, oxygen sat was 95% on room air. GENERAL: The patient is alert and oriented x 3. NECK: Supple, no JVD. HEART: Has an S1, S2 rhythm. Grade III/ systolic murmur. ABDOMEN: Soft. There is an ecchymotic area just below the right rib cage with mild tenderness. Abd omen is otherwise soft. EXTREMITIES: Show no evidence of edema. LABORATORY DATA: Shows a WBC of 7.2, RBC 3.42, hemoglobin 11.2, hematocrit 35.2, platelet count 165. PT 11.5, INR 1.06, PTT is 26.5. Chemistry shows sodium 137, potassium 3.8, chloride 97, CO2 of 30. The BUN is 18, the creatinine is 2.5. AST is 42. Troponin is 0.28. Amylase is 69, lipase is 47. The patient had a CT of the head which was reported as showing no evidence of acute intracranial inj ury or fractures. The patient had a CT of the chest, abdomen and pelvis with contrast. Impression w as bilateral pleural effusions. No evidence of hemothorax or pneumothorax. Diffuse ground glass den sity in the lungs bilaterally. No evidence of acute process. No evidence of acute fractures or acut e traumatic organ injury or hemoperitoneum. There is a 6 mm pulmonary nodule and 11 mm thyroid nodul e. The EKG was reported as showing a sinus rhythm with first degree block. IMPRESSION: An 81-year-old female with history of: 1. Elevated troponin with a coronary artery disease history and aortic disease, aortic stenosis hist ory. To rule out ischemic cardiac disease versus myocardial infarction. 2. Abdominal wall tenderness post trauma from a fall at home. 3. Chronic renal disease, on dialysis. 4. Insulin-dependent diabetes. 5. Hyperlipidemia. PLAN: The patient will be admitted to telemetry with consults from nephrology and cardiology. Seria l cardiac enzymes will be requested. Clinical findings have been discussed with the patient, the [facility], [facility] and the Emergency Room staff. ____ minutes have been spent advising the patient of the clinical findings, reviewing all the studies and discussing treatment plan. Shavonne Ascencio MD cc: [id number] TT: 09/22/2016 23:36:17
[2016-09-23 00:39] LABS: TROPONIN I 0.3 ng/mL
[2016-09-23] MEDS: Levothyroxine 50 MCG TAB PO SCH (07:58)
[2016-09-23 08:21] LABS: ADD MANUAL DIFF? NO
[2016-09-23 08:24] LABS: EOS # 0.1 (0.0-0.7); EOS % 2.3 % (1.5-5.0); GRAN # 3.59 (1.4-6.5); HEMATOCRIT 31.6 % (36.0-48.0); LYMPH # 1.6 (1.2-3.4); LYMPH % 27.8 % (22.0-35.0); MEAN CELL VOLUME 103.9 fL (80.0-105.0); MEAN CORPUSCULAR HEMOGLOBIN 32.6 pg (25.0-35.0); MEAN CORPUSCULAR HGB CONC 31.3 g/dl (31.0-37.0); MEAN PLATELET VOLUME 8.5 fl (7.0-11.0); MONO # 0.4 (0.1-0.6); MONO % 6.9 % (1.0-6.0); PLATELET COUNT 150 10^3/uL (120.0-450.0); RED CELL DISTRIBUTION WIDTH 15.6 % (11.5-14.5); WHITE BLOOD COUNT 5.7 10^3/ul (4.5-11.0)
[2016-09-23 08:36] LABS: CALCIUM 8.7 mg/dL (8.4-10.5); POTASSIUM 4.8 mmol/L (3.6-5.0)
[2016-09-23 09:10] LABS: TROPONIN I 0.23 ng/mL
--- NOTE | 2016-09-23 09:57 | RAD ---
HISTORY: fall COMPARISON: 07/29/2016. FINDINGS: LUNGS: No active pulmonary disease. PLEURA: No significant pleural effusion identified, no pneumothorax apparent. CARDIOVASCULAR: No radiographic findings to suggest acute or significant cardiovascular disease. OSSEOUS STRUCTURES: No significant abnormalities. VISUALIZED UPPER ABDOMEN: Normal. OTHER FINDINGS: None. IMPRESSION: No active disease. No significant interval change compared to the prior examination(s).
[2016-09-23] MEDS ORDERED: Pantoprazole 20 mg EC Tab PO SCH (10:00)
--- NOTE | 2016-09-23 10:07 | PN ---
DATE: 09/23/2016 An 81-year-old female admitted to telemetry with complaints of abdominal pain with history of fall at home. She is on dialysis at [facility], at which point she complained she was referred to the Emergency Room for evaluation. Nursing staff relates that there were no particular problems during the night. PHYSICAL EXAMINATION: VITAL SIGNS: Her temperature is 97.9. Her pulse is 77, respiratory rate is 20, oxygen saturation is 97. Blood pressure this morning was reported at 169/56. GENERAL: She is alert and oriented x 3. NECK: Supple. There is no JVD. EXTREMITIES: No evidence of edema. She has an active fistula in her forearm. LABORATORY DATA: Shows a WBC of 5.7, RBC 3.04, hemoglobin 9.9 and hematocrit 31.6, platelet count 15 0. Chemistry shows normal electrolytes. BUN is 27, creatinine is 3.9. Troponin 0.28, 0.30 and 0.23 . An 81-year-old female with history of abdominal trauma secondary to fall at home on . CT sandie dy is reported as showing no evidence of retroperitoneal bleed or fracture. Head CT showed no acute findings. Her EKG shows a sinus rhythm with 1st degree AV block. ASSESSMENT AND PLAN: The patient has a known history of ischemic heart disease, carotid disease, ins ulin-dependent diabetes, hypertension, hyperlipidemia, chronic renal failure on dialysis 4 times a we ek, hypothyroid disease. Monitor the patient on telemetry. Cardiology and renal consults have been requested. The patient is scheduled for dialysis today, will follow. Shavonne Ascencio MD cc: [id number] TT: 09/23/2016 10:06:25 Confirmation # [id number] Dictation # [id number] jn
--- NOTE | 2016-09-23 10:20 | CARD ---
APPROVED REPORT EKG Measurement Heart [id number] ID [id number] <Conclusion> Sinus rhythm with 1st degree AV block LVH IVCD Septal infarct, age undetermined ST & T wave abnormality, consider lateral ischemia
[2016-09-23] MEDS: Insulin Human NPH/Reg 70/30 Vial(3 ml) SC SCH ×2 (10:35→17:26)
--- NOTE | 2016-09-23 11:50 | CON ---
DATE: 09/23/2016 The patient admitted for Dr. Shavonne Ascencio. REFERRING PHYSICIAN: Dr. Shavonne Ascencio. REASON FOR CONSULTATION: To provide dialysis services for a patient admitted with mild CHF after hav ing had a fall at home. The patient is well known to me from outpatient dialysis. HISTORY OF PRESENT ILLNESS: The patient is an 81-year-old white female with a history of end-stage r enal disease, currently receiving dialysis 4 times a week, history of diabetes mellitus on insulin, h istory of COPD, history of bronchitis and pneumonia, history of CHF, history of ASHD with mild valvul ar heart disease, mitral regurgitation/tricuspid regurgitation, ejection fraction 50%, history of ane jak, history of secondary hyperparathyroidism, history of hypothyroidism. [facility] She apparently had a fall 2 days ago, hitting her right side right lower chest wall and right upper quadrant. She presented to the Emergency Room complaining of right upper quadrant abdominal p ain. In the Emergency Room, the patient was noted to be in mild CHF, mild shortness of breath. Her chest x-ray and chest CT scan are suggestive of mild pulmonary vascular congestion. The patient is c urrently stable on telemetry. She was seen by me together with Dr. Ascnecio. The patient has transfer red over to the hospital to receive dialysis 4 times a week and her CHF has significantly improved. The patient's abdominal and chest CT scan showed no evidence for any trauma related to the fall. She did have bilateral pleural effusions and mild pulmonary vascular congestion. The patient will recei ve a dialysis treatment today and she will continue on her routine dialysis treatment course. PAST MEDICAL HISTORY: Significant for ESRD, IDDM, COPD, history of bronchitis, pneumonia, history o f CHF, history of ASHD, history of valvular heart disease, ejection fraction 50%, MR/TR, history of s econdary hyperparathyroidism, history of anemia, history of hypothyroidism. MEDICATIONS AT HOME: Include that of amlodipine, Protonix, Synthroid, Imdur, insulin, Neurontin, Tri cor, Coreg, PhosLo, Lipitor, and aspirin. ALLERGIES: THE PATIENT IS ALLERGIC TO ROCEPHIN. PRESENT MEDICATIONS: Include that of Coreg, Imdur, Norvasc, PhosLo, Protonix, and Synthroid. SOCIAL HISTORY: No history of cigarette smoking, but possible secondhand exposure. No history of al cohol use. No history of substance abuse. FAMILY HISTORY: Reviewed with patient, is noncontributory. REVIEW OF SYSTEMS: GENERAL: The patient on a whole has been doing relatively well over recent time. Weight has been st able. Appetite has been good. ENT: Denies any hearing or visual problems. PULMONARY: Positive for mild shortness of breath and shortness of breath with exertion. History of COPD, history of recent pneumonias. CARDIAC: History of ASHD, history of NSTMI. Presently no chest pain, no palpitations. GASTROINTESTINAL: Positive for constipation, no abdominal pain, no nausea, vomiting or diarrhea. GENITOURINARY: The patient makes no urine. History of end-stage renal disease. GYNECOLOGIC: Postmenopausal. ENDOCRINE: History of diabetes mellitus with complications. MUSCULOSKELETAL: No complaints at present. No discomfort over her right upper quadrant area. NEUROLOGIC: No history of CVA, TIA, seizures or syncope. PSYCHIATRIC: History is negative. HEMATOLOGIC AND ONCOLOGIC: Positive for anemia secondary to chronic kidney disease. PHYSICAL EXAMINATION: GENERAL: The patient is currently lying supine in bed on telemetry. She is awaiting transfer up to dialysis. VITAL SIGNS: Blood pressure presently 169/56, temperature is 97.9, pulse is 77 with a respiratory ra te of 20. Pulse ox 97%. HEENT: Shows her to be normocephalic, atraumatic. Conjunctivae are pale. Sclerae are nonicteric. Pupils equal, reactive to light and accommodation. Extraocular muscles are intact. Posterior pharyn x is normal. NECK: Supple, no neck vein distention. No thyromegaly, no lymphadenopathy, no bruits. CHEST: Scattered rhonchi. Decreased breath sounds at the bases. No rales or wheezing. CARDIOVASCULAR: Shows a regular rate and rhythm with a soft systolic murmur, MR/TR. No rub, no S3, no S4. ABDOMEN: Soft. Bowel sounds normal. No rebound, no guarding, no masses. BACK: No CVAT, no spinal tenderness. EXTREMITIES: Show a working left upper extremity AV fistula, positive thrill, positive bruit. No lo wer extremity cyanosis, clubbing or edema. NEUROLOGIC: Shows her to be alert, oriented x 3 with no gross focal motor or sensory deficits. LABORATORY DATA AND IMAGING: Admitting chest CT showed bilateral small pleural effusions with mild p ulmonary vascular congestion. Negative head CT. LABORATORY DATA: CBC: White blood cell count 5.7, hemoglobin 9.9 with a platelet count of 150,000. Coags are PT of 11.5 with a PTT of 26.5. Chemistries show normal electrolytes. BUN 27 with a creat inine of 3.9. Glucose 105. Of note, troponins are mildly elevated. Perhaps acute coronary syndrome . CPK, however, is low and normal. Amylase and lipase are normal. Liver enzymes are for the most p art normal. Calcium is 8.7, phosphorus is pending. ASSESSMENT: 1. Status post fall with possible minor injury to the right upper quadrant area. CT scan shows no f indings. This will likely improve with time and no intervention is necessary. 2. History of end-stage renal disease. The patient will continue receiving dialysis 4 times a week as per her routine. This has enabled her to remain free of shortness of breath during the long weeke nd when the patient misses 2 days of dialysis because she used to be on a Sunday, Sunday, Sunday s chedule. 3. History of mild congestive heart failure. The patient will again receive dialysis today with ult rafiltration. 4. History of arteriosclerotic heart disease, recent non-ST elevation myocardial infarction. Possib le acute coronary syndrome, but CPK levels are low. 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 . Cardiology evaluati on is pending. 5. History of anemia. The patient will discontinue received Aranesp and iron per protocol on dialys is. 6. History of secondary hyperparathyroidism. Phosphorus level to be checked with dialysis today. T he patient will continue binder therapy. She is on PhosLo. 7. History of mild chronic obstructive pulmonary disease. This appears to be stable. Presently, th e patient is receiving no inhalation therapy. 8. History of hypothyroidism. The patient will continue thyroid replacement therapy. 9. History of diabetes mellitus, currently on insulin. The patient may continue sliding scale with monitoring of her glucose levels. PLAN: 1. Discussed with staff on telemetry. Discussed with Dr. Ascencio. The patient will receive dialysis today. 2. The patient reassured that there are no abnormal findings related to her fall. 3. Continue medications on dialysis per protocol. 4. Continue to monitor patient on telemetry. Thank you for letting me partake and share in the care of our mutual patient. Buck Yanes MD cc: [id number] TT: 09/23/2016 11:49:31 Confirmation # [id number] Dictation # [id number] jn
[2016-09-23 17:40] VITALS: RESP 20
[2016-09-24 06:23] VITALS: TEMP 98.3; O2SAT 98
[2016-09-24] MEDS: Levothyroxine 50 MCG TAB PO SCH (08:13)
[2016-09-24 09:15] VITALS: BP 105/40; PULSE 60
--- NOTE | 2016-09-24 09:51 | PN ---
DATE: 09/24/2016 SUBJECTIVE: The patient is currently seen sitting up in bed in the TCU. She is in no acute distress . She has less right upper quadrant pain in the area where she had her fall. She had a stable dialy sis yesterday with removal of 1500 mL of fluid. She has no shortness of breath. She is likely being discharged later today. MEDICATIONS: Medication list reviewed. The patient is on Coreg, Imdur, Norvasc, PhosLo, Protonix, a nd Synthroid. OBJECTIVE: INTAKE AND OUTPUT: Intake 100+, output 1500 mL with dialysis. VITAL SIGNS: Blood pressure 108/48. Temperature is 98.3. Pulse is 107 with a respiratory rate of 2 0. Pulse ox is 98%. HEENT: Shows her to be normocephalic, atraumatic. Conjunctivae are pale. Sclerae are nonicteric. NECK: Supple. No neck vein distention. CHEST: Clear to auscultation and percussion. No rales, no rhonchi, no wheezing. CARDIOVASCULAR: Shows a regular rate and rhythm with MR/TR. No rub. No S3, no S4. ABDOMEN: Soft. Bowel sounds normal. No rebound, no guarding. EXTREMITIES: Show working fistula, left upper extremity. No lower extremity cyanosis, clubbing, or edema. LABORATORY DATA AND IMAGING: White blood cell count 5.7 with a hemoglobin of 9.9. Platelet count is 150,000. Chemistries from yesterday showed a BUN of 27 with a creatinine of 3.9. Electrolytes are normal. Troponins are flat. Calcium is 8.7. Phosphorus level was not done. ASSESSMENT: 1. Status post fall with only a minor musculoskeletal injury to the right upper quadrant area. CT s can was negative. 2. History of end-stage renal disease. The patient will continue 4 times a week dialysis. She will return for dialysis tomorrow at [facility]. 3. History of mild congestive heart failure. The patient will continue 4 times a week dialysis. Th is has improved. Her volume status and has decreased hospital admissions. 4. History of arteriosclerotic heart disease, recent non-ST elevation myocardial infarction. No marko dence at present for acute coronary syndrome despite mild elevation of her troponins. This is all li alexx secondary to chronic kidney disease, status the troponin elevation. Cardiology is seeing the khari bradshaw and has cleared the patient for discharge. 5. History of anemia. The patient will continue receiving Aranesp and iron per protocol on dialysis . 6. History of secondary hyperparathyroidism. Phosphorus level was not done yesterday predialysis. This will be checked in outpatient dialysis. The patient will continue binder therapy on an as neede d basis. 7. History of mild chronic obstructive pulmonary disease. The patient appears to be stable. The khari bradshaw presently is receiving no inhalation therapy. 8. History of hypothyroidism. Continue thyroid supplements. 9. History of diabetes mellitus, currently stable on insulin therapy. PLAN: 1. As per discussion with Dr. Ascencio, I discussed with cardiology. The patient will likely be disch arged home today. 2. The patient will return tomorrow for outpatient dialysis. 3. The patient will continue binder therapy, and phosphorus levels will be checked in dialysis. 4. Aranesp and iron on dialysis, as per protocol. Buck Yanes MD cc: [id number] TT: 09/24/2016 09:50:34 Confirmation # [id number] Dictation # [id number] jn
[2016-09-24] MEDS: Insulin Human NPH/Reg 70/30 Vial(3 ml) SC SCH (10:08)
--- NOTE | 2016-09-25 16:03 | DS ---
An 81-year-old female on chronic dialysis 4 times a week, admitted to [facility] from dialysis on Sunday. She complained of some abdominal pain secondary to a fall in the house the day prior. Oliver milton was seen in the hospital by Dr. Velez of the cardiology service for mild elevation of her cardiac enzymes. She was seen by her child development instructor, Dr. Yanes. She had a CT of the chest, abdomen and pelv is which showed no evidence of retroperitoneal bleed, no evidence of any fractures. Her head CT show ed no acute findings. Her chest x-ray was reported as showing no evidence of active disease. She di d not have any chest discomfort. She will be followed as an outpatient by renal. She was cleared by both them and cardiology. Her medications would consist of Coreg 25 mg twice a day, Imdur 30 mg shameka ly, Norvasc 5 mg daily, PhosLo 1334 mg t.i.d., Protonix 20 mg daily, Synthroid 50 mcg daily. She feng l resume her insulin 70/30 at 10 units b.i.d., on a diabetic diet, Lipitor 20 mg daily, Ecotrin 81 mg daily, Norvasc 5 mg daily, Protonix 20 mg daily, Neurontin 100 mg at bedtime and Tricor 145 mg daily . Shavonne Ascencio MD cc: [id number] TT: 09/25/2016 16:02:59 shanta
== END 2016-09-24 12:01 | disposition home or self-care (01) | DRG 604 ==
LOC: ED 17:12 → ERH 20:26 → 2RSO 09-23 03:37 → 2RNO 09-23 14:06
PROVIDERS: ADMIT Internal Medicine; ATTEND Internal Medicine
PROC: 5A1D00Z (ICD-10-PCS; principal; 2016-09-23)
DX: S30.1XXA Contusion of abdominal wall, initial encounter (principal); N18.6 End stage renal disease; I13.2 Hypertensive heart and chronic kidney disease with heart failure and with stage 5 chronic kidney disease, or end stage renal disease; E11.22 Type 2 diabetes mellitus with diabetic chronic kidney disease; N25.81 Secondary hyperparathyroidism of renal origin; I48.0 Paroxysmal atrial fibrillation; J44.9 Chronic obstructive pulmonary disease, unspecified; R10.11 Right upper quadrant pain; W19.XXXA Unspecified fall, initial encounter; I50.9 Heart failure, unspecified; Z99.2 Dependence on renal dialysis; I25.10 Atherosclerotic heart disease of native coronary artery without angina pectoris; E78.5 Hyperlipidemia, unspecified; E03.9 Hypothyroidism, unspecified; M19.90 Unspecified osteoarthritis, unspecified site; I35.0 Nonrheumatic aortic (valve) stenosis; D63.1 Anemia in chronic kidney disease; Z79.4 Long term (current) use of insulin; I25.2 Old myocardial infarction; Y93.9 Activity, unspecified; Y92.009 Unspecified place in unspecified non-institutional (private) residence as the place of occurrence of the external cause; Y99.8 Other external cause status; Z95.5 Presence of coronary angioplasty implant and graft; Z96.642 Presence of left artificial hip joint

== ENCOUNTER 2017-01-25 06:48 | Inpatient (IN) | payer MEDICARE, OTHER ==
[2017-01-25 07:14] LABS: VENOUS BLOOD GAS BASE EXCESS 6.8 mmol/L (0.0-2.0); VENOUS BLOOD PH 7.47 (7.32-7.43)
[2017-01-25 07:18] LABS: EOS % 0.1 % (1.5-5.0); GRAN # 6.56 (1.4-6.5); HEMATOCRIT 31.1 % (36.0-48.0); LYMPH # 1.3 (1.2-3.4); LYMPH % 15.4 % (22.0-35.0); MEAN CELL VOLUME 100.6 fl (80.0-105.0); MEAN CORPUSCULAR HEMOGLOBIN 31.4 pg (25.0-35.0); MEAN CORPUSCULAR HGB CONC 31.2 g/dl (31.0-37.0); MEAN PLATELET VOLUME 8.7 fl (7.0-11.0); MONO # 0.5 (0.1-0.6); MONO % 5.5 % (1.0-6.0); RED CELL DISTRIBUTION WIDTH 16.6 % (11.5-14.5); WHITE BLOOD COUNT 8.3 10^3/ul (4.5-11.0)
[2017-01-25 07:23] LABS: INR 1.12 (0.93-1.08); PARTIAL THROMBOPLASTIN TIME 28.4 Seconds (23.7-30.8)
[2017-01-25] MEDS ORDERED: Piperacillin/Tazobact 3.375 gm 100 ML IVPB STA (07:23)
[2017-01-25 07:35] LABS: BILIRUBIN,TOTAL 0.9 mg/dL (0.2-1.3); CALCIUM 8.9 mg/dL (8.4-10.5); TOTAL PROTEIN 8.2 g/dL (5.8-8.3)
--- NOTE | 2017-01-25 07:47 | ED PDOC ---
Arrival/HPI <Darwin Black - Last Filed: 01/25/17 11:03> <Rob Valles - Last Filed: 01/25/17 11:31> - General Chief Complaint: Shortness Of Breath Time Seen by Provider: 01/25/17 06:51 - History of Present Illness Narrative History of Present Illness (Text): 81 year old female with a past medical history significant for ESRD (HD on M/W/ F), CHF, CAD with previous infarctions, Insulin-dependent Diabetes Mellitus, and COPD who presents with one day duration of chest pain, dyspnea, and cough. The left sided chest pain started last night at 10:00 pm, scaled 8/10 in severity, with radiation to the contralateral breast, and associated shortness of breath. She denies having any fever, chills, body aches, or myalgias, and also denies any nausea, or concurrent diaphoresis with the chest pain. She states her sputum was clear. She states she could not sleep at night despite using her usual 2 pillows. 01/25/17 08:25 (Rob Valles) Past Medical History - Provider Review Nursing Documentation Reviewed: Yes - Infectious Disease Hx of Infectious Diseases: None - Tetanus Immunization Tetanus Immunization: Unknown - Cardiac Hx Cardiac Disorders: Yes Hx Hypertension: Yes - Pulmonary Hx Respiratory Disorders: Yes Hx Pneumonia: Yes - Neurological Hx Neurological Disorder: No - HEENT Hx HEENT Disorder: No - Renal Hx Renal Disorder: Yes Hx Dialysis: Yes - Endocrine/Metabolic Hx Endocrine Disorders: Yes Hx Diabetes Mellitus Type 2: Yes Hx Hypothyroidism: Yes - Hematological/Oncological Hx Blood Disorders: No - Integumentary Hx Dermatological Disorder: No - Musculoskeletal/Rheumatological Hx Musculoskeletal Disorders: Yes Hx Falls: Yes - Gastrointestinal Hx Gastrointestinal Disorders: No - Genitourinary/Gynecological Hx Genitourinary Disorders: Yes (CRF ON HD) - Psychiatric Hx Psychophysiologic Disorder: No Hx Substance Use: No - Surgical History Hx Hysterectomy: Yes - Anesthesia Hx Anesthesia: Yes Hx Anesthesia Reactions: No Hx Malignant Hyperthermia: No - Suicidal Assessment Feels Threatened In Home Enviroment: No <Rob Valles - Last Filed: 01/25/17 11:31> Family/Social History - Physician Review Nursing Documentation Reviewed: Yes Family/Social History: Unknown Family HX Smoking Status: Never Smoked Hx Alcohol Use: No Hx Substance Use: No Hx Substance Use Treatment: No <Rob Valles - Last Filed: 01/25/17 11:31> Allergies/Home Meds <Darwin Black - Last Filed: 01/25/17 11:03> <Rob Valles - Last Filed: 01/25/17 11:31> Allergies/Adverse Reactions: Allergies ceftriaxone Allergy (Verified 09/22/16 17:20) ITCHING Home Medications: Home Meds Medication Instructions Recorded Confirmed Calcium Acetate [Phoslo] 1,334 mg PO TID 06/12/16 01/25/17 Review of Systems - Review of Systems Constitutional: absent: Fatigue, Fevers, Night Sweats Eyes: absent: Vision Changes, Photophobia ENT: absent: Hearing Changes, Tinnitus Respiratory: SOB, Cough, Sputum Cardiovascular: Chest Pain, Orthopnea. absent: Palpitations Gastrointestinal: Abdominal Pain. absent: Stool Changes, Diarrhea, Nausea, Vomiting, Hematochezia, Hematemesis Genitourinary Female: Normal. absent: Dysuria, Frequency Musculoskeletal: absent: Arthralgias, Back Pain, Neck Pain Skin: Normal Neurological: Normal. absent: Headache, Dizziness, Focal Weakness Endocrine: Normal Hemo/Lymphatic: absent: Easy Bleeding, Easy Bruising Psychiatric: absent: Anxiety, Depression <Rob Valles - Last Filed: 01/25/17 11:31> Physical Exam Vital Signs Reviewed: Yes <Darwin Black - Last Filed: 01/25/17 11:03> Temperature: Afebrile Blood Pressure: Hypertensive Pulse: Tachycardic Respiratory Rate: Tachypneic Appearance: Positive for: Non-Toxic, Cachectic Pain Distress: Mild Mental Status: Positive for: Alert and Oriented X 3 - Systems Exam Head: Present: Atraumatic, Normocephalic Pupils: Present: PERRL Extroacular Muscles: Present: EOMI Conjunctiva: Present: Normal Mouth: Present: Moist Mucous Membranes Pharnyx: Present: Normal. No: ERYTHEMA, EXUDATE Neck: Present: Normal Range of Motion. No: JVD Respiratory/Chest: Present: Decreased Breath Sounds (bilaterally). No: Respiratory Distress, Accessory Muscle Use Cardiovascular: Present: Normal S1, S2, Tachycardic, Other (negative hepatojugular reflex) Abdomen: Present: Tenderness, Normal Bowel Sounds. No: Rebound, Guarding Back: Present: Normal Inspection. No: CVA Tenderness Lower Extremity: Present: Normal Inspection, NORMAL PULSES Neurological: Present: CN II-XII Intact, Speech Normal Skin: Present: Warm, Dry, Normal Color Lymphatic: No: Cervical Adenopathy Psychiatric: Present: Alert, Oriented x 3, Normal Insight, Normal Concentration <Rob Valles - Last Filed: 01/25/17 11:31> Vital Signs Temp Pulse Resp BP Pulse Ox 01/25/17 10:10 82 26 H 96 01/25/17 10:00 84 28 H 166/62 H 98 01/25/17 09:50 85 23 99 01/25/17 09:40 83 26 H 97 01/25/17 09:30 85 16 98 01/25/17 09:20 84 42 H 100 01/25/17 09:12 84 27 H 100 01/25/17 08:43 100 H 19 139/64 97 01/25/17 07:57 99.1 F 102 H 24 139/64 95 01/25/17 07:19 18 95 01/25/17 06:49 98.6 F 108 H 30 H 169/78 H 94 L Medical Decision Making <Darwin Black - Last Filed: 01/25/17 11:03> <Rob Valles - Last Filed: 01/25/17 11:31> ED Course and Treatment: A 81 year old female with chest pain. In agreement with resident note, which includes further HPI details. Patient was seen and evaluated with resident, came up with plan and treatment together. (Darwin Black) 81 year old female presenting with chest pain and dyspnea of one day duration who a Code Sepsis was called on due to Lactate of 2.8. Chest X-ray reveals pulmonary vascular congestion, BNP of 99,100; Tropinin I 2.06, Creatinine 3.3, and EKG showing sinus tachycardia and LVH with strain. Case discussed with Healthcare Financial Analyst, Dr. Hicks, who agreed to take the patient to the ICU for ACS and CHF exacerbation. 01/25/17 08:40 (Rob Valles) - Lab Interpretations Lab Results: 01/25/17 07:00 01/25/17 07:00 Lab Results 01/25/17 07:00: Sodium 140, Chloride 95 L, Potassium 4.0, Carbon Dioxide 30, Anion Gap 19, BUN 45 H, Creatinine 3.3 H, Est GFR ( Amer) 16, Est GFR ( Non-Af Amer) 13, Random Glucose 179 H, Calcium 8.9, Total Bilirubin 0.9, AST 73 H, ALT 16, Alkaline Phosphatase 100, Lactate Dehydrogenase 523, Total Creatine Kinase 97, Troponin I 2.06 H* D, NT-Pro-B Natriuret Pep 35712 H, Total Protein 8.2, Albumin 4.0, Globulin 4.2, Albumin/Globulin Ratio 1.0 L 01/25/17 07:00: pO2 44, VBG pH 7.47 H, VBG pCO2 43.0, VBG HCO3 31.3 H, VBG Total CO2 32.6 H, VBG O2 Sat (Calc) 83.4 H, VBG Base Excess 6.8 H, VBG Potassium 4.0, Sodium 136.0, Chloride 97.0 L, Glucose 183 H, Lactate 2.8 H, FiO2 21.0, Venous Blood Potassium 4.0 01/25/17 07:00: PT 12.1 H, INR 1.12 H, APTT 28.4 01/25/17 07:00: WBC 8.3 D, RBC 3.09 L, Hgb 9.7 L, Hct 31.1 L, MCV 100.6, MCH 31.4, MCHC 31.2, RDW 16.6 H, Plt Count 175, MPV 8.7, Gran % 79.0 H, Lymph % ( Auto) 15.4 L, Ellis % (Auto) 5.5, Eos % (Auto) 0.1 L, Baso % (Auto) 0.0, Gran # 6.56 H, Lymph # 1.3, Ellis # 0.5, Eos # 0.0, Baso # 0.00 - RAD Interpretation Radiology Orders: 01/25/17 06:52 CHEST PORTABLE [RAD] Stat - Medication Orders Current Medication Orders: Discontinued Medications Albuterol/Ipratropium (Duoneb 3 Mg/0.5 Mg (3 Ml) Ud) 3 ml IH STAT STA Stop: 01/25/17 08:38 Last Admin: 01/25/17 08:55 Dose: 3 ml Aspirin (Aspirin) 325 mg PO STAT STA Stop: 01/25/17 08:05 Last Admin: 01/25/17 08:18 Dose: 325 mg Enoxaparin Sodium (Lovenox) 60 mg SC Q12H RUTHANN PRN Reason: Protocol Enoxaparin Sodium (Lovenox) 60 mg SC STAT STA PRN Reason: Protocol Stop: 01/25/17 08:11 Last Admin: 01/25/17 08:18 Dose: 60 mg Piperacillin Sod/Tazobactam Sod (Zosyn 3.375 In Ns 100ml) 100 mls @ 200 mls/hr IVPB STAT STA PRN Reason: Protocol Stop: 01/25/17 07:52 Last Admin: 01/25/17 07:37 Dose: 200 mls/hr eMAR Start Stop Document 01/25/17 07:37 MARTÍN (Rec: 01/25/17 07:49 MARTÍN [id number]) Intravenous Solution Start Date 01/25/17 Start Time 07:38 End Date 01/25/17 End time 08:10 Total Infusion Time 32 - PA / DEPUTY SHERIFF BUILDING GUARD / Resident Statement / has reviewed & agrees with the documentation as recorded. / has examined the patient and agrees with the treatment plan. <Darwin Black - Last Filed: 01/25/17 11:03> Disposition/Present on Arrival <Darwin Black - Last Filed: 01/25/17 11:03> - Present on Arrival Any Indicators Present on Arrival: No History of DVT/PE: No History of Uncontrolled Diabetes: No Urinary Catheter: No History of Decub. Ulcer: No History Surgical Site Infection Following: None - Disposition Have Diagnosis and Disposition been Completed?: Yes Disposition Time: 08:41 <Rob Valles - Last Filed: 01/25/17 11:31> - Disposition Diagnosis: ACS (acute coronary syndrome), CHF (congestive heart failure) Disposition: HOSPITALIZED Patient Problems: Current Active Problems Problem Status Onset ACS (acute coronary syndrome) Acute Congestive heart failure Acute Condition: CRITICAL
--- NOTE | 2017-01-25 07:59 | RAD ---
HISTORY: sob COMPARISON: 09/22/2016 FINDINGS: LUNGS: No infiltrate. PLEURA: No significant pleural effusion identified, no pneumothorax apparent. CARDIOVASCULAR: Pulmonary vascular congestion. Normal heart size. OSSEOUS STRUCTURES: No significant abnormalities. VISUALIZED UPPER ABDOMEN: Normal. OTHER FINDINGS: None. IMPRESSION: Pulmonary vascular congestive change. No infiltrate/ effusion.
[2017-01-25 08:02] LABS: TROPONIN I 2.06 ng/mL
[2017-01-25] MEDS ORDERED: Enoxaparin 60 mg Syringe SC STA (08:10)
[2017-01-25] MEDS ORDERED: Enoxaparin 60 mg Syringe SC SCH (08:15)
[2017-01-25 08:16] VITALS: BMI 23.6
[2017-01-25] MEDS ORDERED: Albuterol-Ipratrop 3 mg / 0.5 (3 ml) UD IH STA (08:37)
--- NOTE | 2017-01-25 10:55 | CARD ---
APPROVED REPORT EKG Measurement Heart [id number] IN 148P [id number] <Conclusion> Sinus tachycardia. Prolonged IN. Left ventricular hypertrophy with ST_T Changes Cannot rule out Septal infarct, age undetermined
--- NOTE | 2017-01-25 11:22 | CP.PCM.CON ---
History of Present Illness - History of Present Illness History of Present Illness: CRITICAL CARE PROGRESS NOTE HPI: Patient is 81yo female PMHx ESRD (HD on //), CHF, CAD, Insulin-dependent Diabetes Mellitus, and COPD who presents with one day duration of chest pain, dyspnea, and cough. Pt reports she has not been feeling well for the last week or so. Denies fever, chills, palpitations, JONES, dizziness. No other constitutional symptoms. Pt reports cough is dry non productive, associated worsening SOB. PMHX: ESRD (HD on //), CHF, CAD, Insulin-dependent Diabetes Mellitus, and COPD PShx: as above Meds: as per EMR Allergies: NKDA Fhx: NC Review of Systems - Review of Systems Review of Systems: as per HPI Past Patient History - Infectious Disease Hx of Infectious Diseases: None - Tetanus Immunizations Tetanus Immunization: Unknown - Past Social History Smoking Status: Never Smoked - CARDIAC Hx Cardiac Disorders: Yes Hx Hypertension: Yes - PULMONARY Hx Respiratory Disorders: Yes Hx Pneumonia: Yes - NEUROLOGICAL Hx Neurological Disorder: No - HEENT Hx HEENT Problems: No - RENAL Hx Chronic Kidney Disease: Yes Hx Dialysis: Yes - ENDOCRINE/METABOLIC Hx Endocrine Disorders: Yes Hx Diabetes Mellitus Type 2: Yes Hx Hypothyroidism: Yes - HEMATOLOGICAL/ONCOLOGICAL Hx Blood Disorders: No - INTEGUMENTARY Hx Dermatological Problems: No - MUSCULOSKELETAL/RHEUMATOLOGICAL Hx Musculoskeletal Disorders: Yes Hx Falls: Yes - GASTROINTESTINAL Hx Gastrointestinal Disorders: No - GENITOURINARY/GYNECOLOGICAL Hx Genitourinary Disorders: Yes (CRF ON HD) - PSYCHIATRIC Hx Psychophysiologic Disorder: No Hx Substance Use: No - SURGICAL HISTORY Hx Hysterectomy: Yes - ANESTHESIA Hx Anesthesia: Yes Hx Anesthesia Reactions: No Hx Malignant Hyperthermia: No Meds Allergies/Adverse Reactions: Allergies Allergy/AdvReac Type Severity Reaction Status Date / Time ceftriaxone Allergy ITCHING Verified 09/22/16 17:20 Physical Exam - Constitutional Appears: Well, Non-toxic, No Acute Distress - Head Exam Head Exam: ATRAUMATIC - Eye Exam Eye Exam: EOMI, Normal appearance - ENT Exam ENT Exam: Mucous Membranes Moist - Respiratory Exam Respiratory Exam: Rales, NORMAL BREATHING PATTERN - Cardiovascular Exam Cardiovascular Exam: REGULAR RHYTHM, RRR, +S1, +S2 - GI/Abdominal Exam GI & Abdominal Exam: Normal Bowel Sounds, Soft - Extremities Exam Additional comments: 1+ edema b/l Results - Vital Signs Recent Vital Signs: Last Vital Signs Temp 99.1 F 01/25/17 07:57 Pulse 82 01/25/17 10:10 Resp 26 H 01/25/17 10:10 BP 166/62 H 01/25/17 10:00 Pulse Ox 96 01/25/17 10:10 - Labs Result Diagrams: 01/25/17 07:00 01/25/17 07:00 Assessment & Plan - Assessment and Plan (Free Text) Assessment: 81yo female a/w PNA, CHF, Volume overload CHF, acute Volume Overload PNA ESRD on HD Elevated Troponin Insulin-dependent DM Recommend: - supp O2 as needed, currently stable on 2LNC, sat 98% - abx as per ID, cover for HCAP - follow up Nephrology, may need HD today - Follow up cardiology, elevated troponin - obtain ECHO - repeat Cardiac enzymes - ASA, Plavix, Statin - may need Heparin drip - FS control - GI ppx - DVT ppx Stable Critical care time: 35 minutes
[2017-01-25 11:41] LABS: VENOUS BLOOD GAS BASE EXCESS 10.6 mmol/L (0.0-2.0); VENOUS BLOOD PH 7.48 (7.32-7.43)
--- NOTE | 2017-01-25 13:18 | HP ---
HISTORY OF PRESENT ILLNESS: The patient is in the coronary care unit, bed 5. She is an 81-year-old female who was brought to [facility] with history of shortness of breath and chest pain. PAST MEDICAL HISTORY: The patient has a past medical history of chronic renal failure, on dialysis 3 times a week, carotid disease, atherosclerotic heart disease, remote myocardial infarctions, pneumonia, urinary tract infections, insulin-dependent diabetes, hypothyroid disease, hyperlipidemia. SOCIAL HISTORY: She is a nonsmoker, nondrinker, nondrug user. ALLERGIES: TO CEFTRIAXONE. REVIEW OF SYSTEMS: Ten systems are reviewed. Persistent finding is that the patient is lying in bed. States that she is having less chest discomfort at this time. Upon admission into the emergency room, the patient was made code sepsis through lab results. An at home independent call center agent evaluation had been requested. PHYSICAL EXAMINATION GENERAL: She is alert, oriented x3. VITAL SIGNS: Her blood pressure was 139/64. Her rectal temp is 99.1. Her pulse was 102. Her oxygen saturation was 95% on nasal oxygen. NECK: Supple. LUNGS: There is bilateral rhonchi with diminished breath sounds at the bases. HEART: S1 and S2 with grade 3/6 systolic murmur. ABDOMEN: Soft with positive bowel sounds. EXTREMITIES: Show no evidence of edema. LABORATORY DATA: She has a WBC of 8.3, RBC 3.09, hemoglobin 9.7, hematocrit 31.1, platelet count is 175. Her PT is 12.1 with an INR of 1.12, PTT is 28.4. Lactic acid level was 2.8. Chemistry showed sodium 140, potassium 4, chloride 95, BUN of 45, creatinine of 3.3. Random blood sugar was 179. Her troponin is 2.06. The BNP is 99,100. . PROBLEMS: 1. Chest pain. 2. Elevated troponin. 3. History of ischemic heart disease with remote MRI in the past. 4. Volume overload. 5. Possible pneumonia. 6. Elevated lactic acid. 7. Hypothyroid disease. 8. Insulin-dependent diabetes. 9. Chronic kidney disease. 10. Atherosclerotic heart disease. PLAN: The patient was accepted to the intensive care unit after discussion with the at home independent call center agent. She had a dose of Zosyn in the emergency room and aspirin and was given some DuoNeb treatments. We will request consult with Infectious Disease, Cardiology and Renal. Follow the patient with essential laboratory data and cardiac enzymes. Cardiology consult has been requested. More than 45 minutes had been spent reviewing the data, reviewing the orders, discussing the case with at home independent call center agent and with the patient. Shavonne Ascencio MD
[2017-01-25 14:08] LABS: TROPONIN I 4.44 ng/mL
[2017-01-25] MEDS: Cefepime 1gm in NS 100ml 1 GM/100 ML BAG IVPB SCH (14:19)
[2017-01-25] MEDS: Insulin Reg-LOW-Coverage SC SCH ×2 (17:06→22:30)
[2017-01-26 00:06] LABS: TROPONIN I 5.7 ng/mL
--- NOTE | 2017-01-26 01:32 | CON ---
DATE: 01/25/2017 CHIEF COMPLAINT: Weakness times several days. HISTORY OF PRESENT ILLNESS: This is a 81-year-old female with past medical history of end-stage renal disease on hemodialysis, congestive heart failure, coronary artery disease, diabetes mellitus, and chronic obstructive lung disease, who was admitted with chest pain and epigastric pain that started last night associated with shortness of breath. There has been no fevers and no chills. No abdominal pain or diarrhea. Pain is epigastric in location. There is no headaches. No dysuria or frequency. PAST MEDICAL HISTORY: Significant for end-stage renal disease on hemodialysis, congestive heart failure, coronary artery disease, diabetes mellitus, hypertension, chronic obstructive lung disease, and healthcare-associated pneumonia. PAST SURGICAL HISTORY: Significant for left hip surgery and vascular access for dialysis. ALLERGIES: THE PATIENT IS ALLERGIC TO CEFTRIAXONE. MEDICATIONS AT HOME: Include the patient to be on Norvasc, pantoprazole, levothyroxine, isosorbide mononitrate, insulin, gabapentin, and fenofibrate. PHYSICAL EXAMINATION: GENERAL: The patient is in bed, appearing weak and much older than her stated age. VITAL SIGNS: Temperature of 99.1; pulse of 83, it was up to 108; respiratory rate of 26, it was up to 30; blood pressure of 166/62 and oxygen saturation at 98, it was down to 94. HEENT: Unremarkable. NECK: Supple. LUNGS: Decreased breath sounds. HEART: Normal S1, S2. ABDOMEN: Soft, nontender and organomegaly. No rebound, no guarding, no masses. LABORATORY EXAMINATION: Reveals a white count of 8.3, hemoglobin of 9, platelets of 175. Coagulation is noted and BUN of 45, creatinine of 3.3. Troponin is 2.06. No urinalysis available. AST is 73. Microbiology is pending and the patient had a chest x-ray, no infiltrate. Dr. Ascencio' history and physical examination is reviewed, and Dr. Joshua Hicks's history and consultation is reviewed. The patient's EKG shows QTC of 498. Creatinine of 3.3. The patient had elevated creatinine. ASSESSMENT AND PLAN: This is an 81-year-old female with end-stage renal disease on hemodialysis, congestive heart failure, coronary artery disease, diabetes, hypothyroidism, chronic obstructive lung disease, hypertension, cataracts, healthcare-associated pneumonia with systemic inflammatory response syndrome, admitted with chest pain. The patient's last admission was in 09/2016. We will start the patient on cefepime and doxycycline pending urinalysis, urine culture, and blood cultures. We will make further recommendations. Upon availability of cultures and initial workup results, we will adjust the cefepime 2 g q. 24 hours, adjusted for the renal disease. We will make further recommendation. Case discussed with Dr. Ascencio. May benefit from a CAT scan of the chest, and we will follow closely with you. Jeromy Castellanos MD
[2017-01-26 04:19] LABS: BASO # 0.01 K/mm3 (0.0-2.0); BASO % 0.1 % (0.0-3.0); EOS % 0.4 % (1.5-5.0); GRAN # 5.28 (1.4-6.5); GRAN % 76.8 % (50.0-68.0); HEMATOCRIT 29.1 % (36.0-48.0); LYMPH # 1.2 (1.2-3.4); LYMPH % 17.2 % (22.0-35.0); MEAN PLATELET VOLUME 8.4 fl (7.0-11.0); MONO # 0.4 (0.1-0.6); MONO % 5.5 % (1.0-6.0); RED CELL DISTRIBUTION WIDTH 16.2 % (11.5-14.5); WHITE BLOOD COUNT 6.9 10^3/ul (4.5-11.0)
[2017-01-26 04:59] LABS: ALB/GLOB RATIO 0.9 (1.1-1.8); BILIRUBIN,TOTAL 0.9 mg/dL (0.2-1.3); POTASSIUM 5.2 mmol/L (3.6-5.0); TOTAL PROTEIN 7.7 g/dL (5.8-8.3)
[2017-01-26 05:51] LABS: TROPONIN I 4.99 ng/mL
[2017-01-26] MEDS: Levothyroxine 50 MCG TAB PO SCH (07:53)
[2017-01-26] MEDS: Insulin Reg-LOW-Coverage SC SCH ×4 (07:53→22:04)
[2017-01-26] MEDS: Heparin 25,000units in D5W 25,000 UNITS/250 ML BAG IV SCH (07:59)
--- NOTE | 2017-01-26 08:43 | CON ---
DATE: 01/25/2017 REASON FOR CONSULTATION: Shortness of breath, chest tightness, decompensated congestive heart failure. HISTORY OF PRESENT ILLNESS: An 81-year-old lady known to me from outpatient followup, was brought to the emergency room yesterday by family members because of complaints of shortness of breath, chest tightness, difficulty breathing, pain on deep inspiration. The patient has complained of chronic cough. She was found to be hypertensive in the emergency room. Her blood pressure was 169/78. She was found to be afebrile. Her ABG revealed respiratory alkalosis and she was found to have elevated troponin of 2.0. Elevated BNP of 99,000. She is currently seen in the ICU. She still complains of some chest tightness. She complains of shortness of breath. She denies any fever, chills. She denies any abdominal pain. She denies any nausea, vomiting. PAST MEDICAL AND SURGICAL HISTORY: CAD, acute AR, carotid disease, NIDDM, hypertension, hyperlipidemia, hypothyroidism, multiple pneumonias, ESRD, secondary hyperparathyroidism, anemia of chronic kidney disease. FAMILY HISTORY: Noncontributory. SOCIAL HISTORY: No smoking, no alcohol use, no IV drug abuse. ALLERGIES: ROCEPHIN. MEDICATIONS AT HOME: Amlodipine 5 mg, Protonix 20, Synthroid 50 units, Imdur 30, gabapentin 100, fenofibrate 145, Coreg 25 b.i.d., calcium acetate 1334 t.i.d., Lipitor 20, and aspirin 81. REVIEW OF SYSTEM: All systems are reviewed, pertinent positives as mentioned in history of presenting illness, rest unremarkable. PHYSICAL EXAMINATION GENERAL: Elderly lady, lying in bed in the ICU, in mild respiratory distress. VITAL SIGNS: Blood pressure 170/60, heart rate 76, respiratory rate 20, temperature 98.6. HEENT: Normocephalic, atraumatic. NECK: Supple, no JVD. LUNGS: Bilateral equal air entry, bilateral rhonchi, basilar rales bilaterally. CARDIAC: S1 and S2, regular rate and rhythm, no murmur, no rub. ABDOMEN: Soft, nondistended, nontender, bowel sounds present. EXTREMITIES: No lower extremity edema. Intake and output not charted. LABORATORY DATA: WBC 8.3, hemoglobin 9.7, hematocrit 31, platelets 175. Sodium 140, potassium 4.0, chloride 95, CO2 of 30, BUN 45, creatinine 3.3, glucose 179, calcium 8.9, AST 73, ALT 16, troponin is 2.0. BNP 99,000, second set of troponin 4.4. Chest x-ray: Pulmonary vascular congestion with cardiomegaly. ASSESSMENT/PLAN: 1. Acute myocardial infarction. 2. Decompensated congestive heart failure. 3. Pulmonary edema. 4. Underlying coronary artery disease. 5. Hypertension. 6. [id number] diabetes mellitus. 7. End-stage renal disease. 8. Anemia of chronic kidney disease. 9. Paroxysmal atrial fibrillation. PLAN: 1. Continue aspirin, beta-leandro, antianginal as per cardiology recommendations. 2. Continue Lovenox. 3. Agree with empiric antibiotics to cover for community acquired pneumonia. 4. Monitor fingersticks and maintain euglycemia. 5. Dialysis today, dry ultrafiltration to 2 kg to remove 3 kg. 6. Case discussed with the patient at bedside at length, case discussed with ICU attending, case discussed with ICU resident. More than 35 minutes spent in the care of this critically ill patient. Barbi Linares MD
--- NOTE | 2017-01-26 10:18 | PN ---
DATE: 01/26/2017 LOCATION: The patient is in 129, bed 5. SUBJECTIVE: The patient was seen earlier in CCU 129, bed 5. The patient had uneventful night as per nurses. No fevers. No chills. OBJECTIVE: VITAL SIGNS: Temperature is 98, blood pressure is 129/40, respiratory rate of 18, and heart rate of 60. HEENT: Unremarkable. NECK: Supple. LUNGS: Decreased breath sounds. HEART: Normal S1 and S2. ABDOMEN: Soft and nontender. LABORATORY DATA: Reveals a white count of 6.9, hemoglobin of 9, and platelets of 132. Coagulation is noted. Chemistries reveal a BUN of 60 and creatinine of 4.7. Troponins are elevated at 5.7 and 4.9. Procalcitonin is 1.30. Microbiology reveals the blood cultures are negative. Review of orders reveals the patient to be on p.o. doxycycline and IV cefepime. Dr. Ascencio' history and physical examination is reviewed. Chest x-ray; no infiltrate. Dr. Hicks's consultation is reviewed. The patient's EKG read by Dr. Aguila, sinus tachycardia, prolonged NC, and left ventricular hypertrophy with ST changes. ASSESSMENT AND PLAN: This is an 81-year-old female who has past medical history of end-stage renal disease, on hemodialysis; congestive heart failure; coronary artery disease; diabetes; hypothyroidism; chronic obstructive lung disease; hypertension; and hypothyroidism with systemic inflammatory response syndrome with elevated troponins and with nonspecific ST changes consistent with non-ST elevated myocardial infarction, negative cultures, and negative chest x-ray. The patient is on aspirin, Lovenox, nitrates, and carvedilol and awaiting for Cardiology consultation, most likely we will discontinue the antibiotics in the next 24 hours. No urinalysis is available. No urine cultures available; however, the blood cultures are negative. We will follow with you. We will discuss with Dr. Ascencio. Jeromy Castellanos MD
[2017-01-26] MEDS: ANECREAM TOP SCH (10:54)
--- NOTE | 2017-01-26 14:11 | CP.CCUPN ---
<Micah Armenta - Last Filed: 01/26/17 14:07> CCU Subjective - Physician Review Subjective (Free Text): 01/26/17 14:07 Patient seen and examined this AM in ICU. No acute events overnight reported. Patient underwent HD yesterday with removal of 3L of fluid. Patient reports some difficulty breathing, denies chest pain, abdominal pain, nausea, vomiting, fever. Patient has been HDS. CCU Objective - Vital Signs / Intake & Output Intake and Output (Last 8hrs): Intake & Output 01/25/17 01/26/17 01/26/17 22:59 06:59 14:59 Intake Total 860 42 Output Total 2500 Balance -1640 42 Intake: IV 320 42 Right Wrist 320 Oral 540 Output: Other 2500 - Physical Exam Head: Positive for: Atraumatic, Normocephalic Pupils: Positive for: PERRL Extroacular Muscles: Positive for: EOMI Conjunctiva: Positive for: Normal Mouth: Positive for: Moist Mucous Membranes Pharnyx: Positive for: Normal. Negative for: ERYTHEMA, EXUDATE Neck: Positive for: Normal Range of Motion. Negative for: JVD Respiratory/Chest: Positive for: Decreased Breath Sounds (bilaterally), Rales ( mild bilateral ). Negative for: Respiratory Distress, Accessory Muscle Use Cardiovascular: Positive for: Normal S1, S2, Other (negative hepatojugular reflex) Abdomen: Positive for: Tenderness, Normal Bowel Sounds. Negative for: Rebound, Guarding Back: Positive for: Normal Inspection. Negative for: CVA Tenderness Lower Extremity: Positive for: Normal Inspection, NORMAL PULSES Neurological: Positive for: CN II-XII Intact, Speech Normal Skin: Positive for: Warm, Dry, Normal Color Lymphatic: Negative for: Cervical Adenopathy Psychiatric: Positive for: Alert, Oriented x 3, Normal Insight, Normal Concentration - Medications Active Medications: Active Medications Generic Name Dose Route Start Last Admin Trade Name Freq PRN Reason Stop Dose Admin Amlodipine Besylate 5 mg 01/25/17 13:15 01/26/17 09:56 Norvasc PO Not Given DAILY RUTHANN Aspirin 81 mg 01/25/17 13:15 01/26/17 10:52 Aspirin Chewable PO 81 mg DAILY RUTHANN Administration Atorvastatin Calcium 20 mg 01/25/17 17:00 01/25/17 17:40 Lipitor PO 20 mg DIN RUTHANN Administration Calcium Acetate 1,334 mg 10/12/17 14:00 01/26/17 10:52 Phoslo PO 1,334 mg TID RUTHANN Administration Carvedilol 25 mg 01/25/17 17:00 01/26/17 08:36 Coreg PO 25 mg 0800,1700 RUTHANN Administration Clopidogrel Bisulfate 75 mg 01/26/17 10:30 01/26/17 10:52 Plavix PO 75 mg DAILY RUTHANN Administration Doxycycline Hyclate 100 mg 01/25/17 13:26 01/26/17 10:52 Doryx PO 02/03/17 13:27 100 mg Q12 RUTHANN Administration Protocol Fenofibrate 145 mg 01/26/17 10:00 01/26/17 10:52 Tricor PO 145 mg DAILY RUTHANN Administration Gabapentin 100 mg 01/25/17 22:00 01/25/17 22:08 Neurontin PO 100 mg HS RUTHANN Administration Protocol Home Med 1 unit 01/26/17 10:00 01/26/17 10:54 Home Med TOP 1 unit MWF RUTHANN Administration Cefepime HCl 1 gm in 100 mls @ 100 mls/hr 01/25/17 13:30 01/25/17 14:19 Maxipime 1gm IVPB 02/03/17 13:31 100 mls/hr Q24H RUTHANN Administration Protocol Heparin Sodium/Dextrose 25,000 units in 250 mls @ 7.022 mls/hr 01/26/17 07:45 01/26/17 12:30 Heparin 25,000 Units/250ml In D5w IV 0 units/kg/hr .Q24H RUTHANN 0 mls/hr Protocol Titration 12 UNITS/KG/HR Insulin Human Regular 0 units 01/25/17 16:30 01/26/17 12:08 Humulin R Low SC Not Given ACHS [facility] Protocol Isosorbide Mononitrate 30 mg 01/26/17 06:00 01/26/17 05:26 Imdur Er PO 30 mg 0600 RUTHANN Administration Levothyroxine Sodium 50 mcg 01/26/17 07:30 01/26/17 07:53 Synthroid PO 50 mcg ACB RUTHANN Administration - Patient Studies Lab Studies: Microbiology Studies 01/25/17 09:26 MRSA Culture (Admit) - Final Nose MRSA NOT DETECTED Lab Studies 01/26/17 01/26/17 01/26/17 Range/Units 11:55 07:41 04:05 WBC (4.5-11.0) 10^3/ul RBC (3.5-6.1) 10^6/uL Hgb (12.0-16.0) g/dL Hct (36.0-48.0) % MCV (80.0-105.0) fl MCH (25.0-35.0) pg MCHC (31.0-37.0) g/dl RDW (11.5-14.5) % Plt Count (120.0-450.0) 10^3/uL MPV (7.0-11.0) fl Gran % (50.0-68.0) % Lymph % (Auto) (22.0-35.0) % Early % (Auto) (1.0-6.0) % Eos % (Auto) (1.5-5.0) % Baso % (Auto) (0.0-3.0) % Gran # (1.4-6.5) Lymph # (1.2-3.4) Early # (0.1-0.6) Eos # (0.0-0.7) Baso # (0.0-2.0) K/mm3 Sodium 135 (132-148) mmol/L Potassium 5.2 H (3.6-5.0) mmol/L Chloride 92 L (98-107) mmol/L Carbon Dioxide 31 (21-33) mmol/L Anion Gap 17 (10-20) BUN 60 H (7-21) mg/dL Creatinine 4.7 H (0.7-1.2) mg/dL Est GFR ( Amer) 11 Est GFR (Non-Af Amer) 9 POC Glucose (mg/dL) 124 H 122 H (65-110) mg/dL Random Glucose 141 H (70-110) mg/dL Calcium 9.0 (8.4-10.5) mg/dL Total Bilirubin 0.9 (0.2-1.3) mg/dL AST 75 H (14-36) U/L ALT 20 (7-56) U/L Alkaline Phosphatase 70 (38-126) U/L Lactate Dehydrogenase 454 (333-699) U/L Total Creatine Kinase 54 (35-230) U/L Troponin I 4.99 H* ng/mL Total Protein 7.7 (5.8-8.3) g/dL Albumin 3.6 (3.0-4.8) g/dL Globulin 4.0 gm/dL Albumin/Globulin Ratio 0.9 L (1.1-1.8) Procalcitonin (0.19-0.49) NG/ML 01/26/17 01/25/17 01/25/17 Range/Units 04:05 23:10 22:20 WBC 6.9 (4.5-11.0) 10^3/ul RBC 2.91 L (3.5-6.1) 10^6/uL Hgb 9.3 L (12.0-16.0) g/dL Hct 29.1 L (36.0-48.0) % MCV 100.0 (80.0-105.0) fl MCH 32.0 (25.0-35.0) pg MCHC 32.0 (31.0-37.0) g/dl RDW 16.2 H (11.5-14.5) % Plt Count 132 (120.0-450.0) 10^3/uL MPV 8.4 (7.0-11.0) fl Gran % 76.8 H (50.0-68.0) % Lymph % (Auto) 17.2 L (22.0-35.0) % Early % (Auto) 5.5 (1.0-6.0) % Eos % (Auto) 0.4 L (1.5-5.0) % Baso % (Auto) 0.1 (0.0-3.0) % Gran # 5.28 (1.4-6.5) Lymph # 1.2 (1.2-3.4) Early # 0.4 (0.1-0.6) Eos # 0.0 (0.0-0.7) Baso # 0.01 (0.0-2.0) K/mm3 Sodium (132-148) mmol/L Potassium (3.6-5.0) mmol/L Chloride (98-107) mmol/L Carbon Dioxide (21-33) mmol/L Anion Gap (10-20) BUN (7-21) mg/dL Creatinine (0.7-1.2) mg/dL Est GFR ( Amer) Est GFR (Non-Af Amer) POC Glucose (mg/dL) 177 H (65-110) mg/dL Random Glucose (70-110) mg/dL Calcium (8.4-10.5) mg/dL Total Bilirubin (0.2-1.3) mg/dL AST (14-36) U/L ALT (7-56) U/L Alkaline Phosphatase (38-126) U/L Lactate Dehydrogenase 492 (333-699) U/L Total Creatine Kinase 73 (35-230) U/L Troponin I 5.70 H* D ng/mL Total Protein (5.8-8.3) g/dL Albumin (3.0-4.8) g/dL Globulin gm/dL Albumin/Globulin Ratio (1.1-1.8) Procalcitonin (0.19-0.49) NG/ML 01/25/17 01/25/17 01/25/17 Range/Units 16:26 13:25 11:45 WBC (4.5-11.0) 10^3/ul RBC (3.5-6.1) 10^6/uL Hgb (12.0-16.0) g/dL Hct (36.0-48.0) % MCV (80.0-105.0) fl MCH (25.0-35.0) pg MCHC (31.0-37.0) g/dl RDW (11.5-14.5) % Plt Count (120.0-450.0) 10^3/uL MPV (7.0-11.0) fl Gran % (50.0-68.0) % Lymph % (Auto) (22.0-35.0) % Early % (Auto) (1.0-6.0) % Eos % (Auto) (1.5-5.0) % Baso % (Auto) (0.0-3.0) % Gran # (1.4-6.5) Lymph # (1.2-3.4) Early # (0.1-0.6) Eos # (0.0-0.7) Baso # (0.0-2.0) K/mm3 Sodium (132-148) mmol/L Potassium (3.6-5.0) mmol/L Chloride (98-107) mmol/L Carbon Dioxide (21-33) mmol/L Anion Gap (10-20) BUN (7-21) mg/dL Creatinine (0.7-1.2) mg/dL Est GFR ( Amer) Est GFR (Non-Af Amer) POC Glucose (mg/dL) 116 H (65-110) mg/dL Random Glucose (70-110) mg/dL Calcium (8.4-10.5) mg/dL Total Bilirubin (0.2-1.3) mg/dL AST (14-36) U/L ALT (7-56) U/L Alkaline Phosphatase (38-126) U/L Lactate Dehydrogenase (333-699) U/L Total Creatine Kinase (35-230) U/L Troponin I 4.44 H* D ng/mL Total Protein (5.8-8.3) g/dL Albumin (3.0-4.8) g/dL Globulin gm/dL Albumin/Globulin Ratio (1.1-1.8) Procalcitonin 1.30 H (0.19-0.49) NG/ML Laboratory Results - last 24 hr 01/25/17 01/25/17 01/25/17 11:45 13:25 16:26 WBC RBC Hgb Hct MCV MCH MCHC RDW Plt Count MPV Gran % Lymph % (Auto) Early % (Auto) Eos % (Auto) Baso % (Auto) Gran # Lymph # Early # Eos # Baso # Sodium Potassium Chloride Carbon Dioxide Anion Gap BUN Creatinine Est GFR ( Amer) Est GFR (Non-Af Amer) POC Glucose (mg/dL) 116 H Random Glucose Calcium Total Bilirubin AST ALT Alkaline Phosphatase Lactate Dehydrogenase Total Creatine Kinase Troponin I 4.44 H* D Total Protein Albumin Globulin Albumin/Globulin Ratio Procalcitonin 1.30 H 01/25/17 01/25/17 01/26/17 22:20 23:10 04:05 WBC 6.9 RBC 2.91 L Hgb 9.3 L Hct 29.1 L MCV 100.0 MCH 32.0 MCHC 32.0 RDW 16.2 H Plt Count 132 MPV 8.4 Gran % 76.8 H Lymph % (Auto) 17.2 L Early % (Auto) 5.5 Eos % (Auto) 0.4 L Baso % (Auto) 0.1 Gran # 5.28 Lymph # 1.2 Early # 0.4 Eos # 0.0 Baso # 0.01 Sodium Potassium Chloride Carbon Dioxide Anion Gap BUN Creatinine Est GFR ( Amer) Est GFR (Non-Af Amer) POC Glucose (mg/dL) 177 H Random Glucose Calcium Total Bilirubin AST ALT Alkaline Phosphatase Lactate Dehydrogenase 492 Total Creatine Kinase 73 Troponin I 5.70 H* D Total Protein Albumin Globulin Albumin/Globulin Ratio Procalcitonin 01/26/17 01/26/17 01/26/17 04:05 07:41 11:55 WBC RBC Hgb Hct MCV MCH MCHC RDW Plt Count MPV Gran % Lymph % (Auto) Early % (Auto) Eos % (Auto) Baso % (Auto) Gran # Lymph # Early # Eos # Baso # Sodium 135 Potassium 5.2 H Chloride 92 L Carbon Dioxide 31 Anion Gap 17 BUN 60 H Creatinine 4.7 H Est GFR ( Amer) 11 Est GFR (Non-Af Amer) 9 POC Glucose (mg/dL) 122 H 124 H Random Glucose 141 H Calcium 9.0 Total Bilirubin 0.9 AST 75 H ALT 20 Alkaline Phosphatase 70 Lactate Dehydrogenase 454 Total Creatine Kinase 54 Troponin I 4.99 H* Total Protein 7.7 Albumin 3.6 Globulin 4.0 Albumin/Globulin Ratio 0.9 L Procalcitonin Fingerstick Blood Sugar Results: 129 Review of Systems - Review of Systems All systems: reviewed and no additional remarkable complaints except (as mentioned in HPI) Critical Care Progress Note - Nutrition Nutrition: Nutrition Category Date Time Status Renal Diet [DIET] Diets 01/25/17 Lunch Ordered Assessment/Plan - Assessment and Plan (Free Text) Assessment: Patient is 81yo female PMHx ESRD (HD on //), CHF, CAD, Insulin-dependent Diabetes Mellitus, and COPD who is currently undergoing treatment for NSTEMI and CHF exacerbation. Plan: Neuro: AAOx3, stable Pulm: COPD - stable - duoneb tx - goal SaO2 88-92% CVS: NSTEMI - troponin trending down - ASA, plavix, statin, BB, tricor - Cardiology consulted and following Hx of CAD s/p CABG CHF - f/u echocardiogram - monitor fluid intake GI: Stable Protonix for ppx Renal: ESRD on HD MWF - HD yesterady taking 3 L off, holding HD today - Continue Phoslo - Nephrology following Endo: IDDM - Human regular Low SS - Gabapentin Hypothyroid - continue Synthroid ID: Sepsis on admission - blood culture negative, CXR negative - ID following - Continue Cefepime, doxycycline for possible HCAP GI and DVT ppx reviewed Case reviewed and discussed with attending - Date & Time Date: 01/26/17 Time: 14:10 <Joshua Hicks - Last Filed: 01/26/17 14:51> CCU Objective - Vital Signs / Intake & Output Intake and Output (Last 8hrs): Intake & Output 01/25/17 01/26/17 01/26/17 22:59 06:59 14:59 Intake Total 860 42 Output Total 2500 Balance -1640 42 Intake: IV 320 42 Right Wrist 320 Oral 540 Output: Other 2500 - Medications Active Medications: Active Medications Generic Name Dose Route Start Last Admin Trade Name Freq PRN Reason Stop Dose Admin Amlodipine Besylate 5 mg 01/25/17 13:15 01/26/17 09:56 Norvasc PO Not Given DAILY RUTHANN Aspirin 81 mg 01/25/17 13:15 01/26/17 10:52 Aspirin Chewable PO 81 mg DAILY RUTHANN Administration Atorvastatin Calcium 20 mg 01/25/17 17:00 01/25/17 17:40 Lipitor PO 20 mg DIN RUTHANN Administration Calcium Acetate 1,334 mg 01/25/17 14:00 01/26/17 10:52 Phoslo PO 1,334 mg TID RUTHANN Administration Carvedilol 25 mg 01/25/17 17:00 01/26/17 08:36 Coreg PO 25 mg 0800,1700 RUTHANN Administration Clopidogrel Bisulfate 75 mg 01/26/17 10:30 01/26/17 10:52 Plavix PO 75 mg DAILY RUTHANN Administration Doxycycline Hyclate 100 mg 01/25/17 13:26 01/26/17 10:52 Doryx PO 02/03/17 13:27 100 mg Q12 RUTHANN Administration Protocol Fenofibrate 145 mg 01/26/17 10:00 01/26/17 10:52 Tricor PO 145 mg DAILY RUTHANN Administration Gabapentin 100 mg 01/25/17 22:00 01/25/17 22:08 Neurontin PO 100 mg HS RUTHANN Administration Protocol Home Med 1 unit 01/26/17 10:00 01/26/17 10:54 Home Med TOP 1 unit MWF RUTHANN Administration Cefepime HCl 1 gm in 100 mls @ 100 mls/hr 01/25/17 13:30 01/25/17 14:19 Maxipime 1gm IVPB 02/03/17 13:31 100 mls/hr Q24H RUTHANN Administration Protocol Heparin Sodium/Dextrose 25,000 units in 250 mls @ 7.022 mls/hr 01/26/17 07:45 01/26/17 12:30 Heparin 25,000 Units/250ml In D5w IV 0 units/kg/hr .Q24H RUTHANN 0 mls/hr Protocol Titration 12 UNITS/KG/HR Insulin Human Regular 0 units 01/25/17 16:30 01/26/17 12:08 Humulin R Low SC Not Given ACHS [facility] Protocol Isosorbide Mononitrate 30 mg 01/26/17 06:00 01/26/17 05:26 Imdur Er PO 30 mg 0600 RUTHANN Administration Levothyroxine Sodium 50 mcg 01/26/17 07:30 01/26/17 07:53 Synthroid PO 50 mcg ACB RUTHANN Administration - Patient Studies Lab Studies: Microbiology Studies 01/25/17 09:26 MRSA Culture (Admit) - Final Nose MRSA NOT DETECTED Lab Studies 01/26/17 01/26/17 01/26/17 Range/Units 11:55 07:41 04:05 WBC (4.5-11.0) 10^3/ul RBC (3.5-6.1) 10^6/uL Hgb (12.0-16.0) g/dL Hct (36.0-48.0) % MCV (80.0-105.0) fl MCH (25.0-35.0) pg MCHC (31.0-37.0) g/dl RDW (11.5-14.5) % Plt Count (120.0-450.0) 10^3/uL MPV (7.0-11.0) fl Gran % (50.0-68.0) % Lymph % (Auto) (22.0-35.0) % Early % (Auto) (1.0-6.0) % Eos % (Auto) (1.5-5.0) % Baso % (Auto) (0.0-3.0) % Gran # (1.4-6.5) Lymph # (1.2-3.4) Early # (0.1-0.6) Eos # (0.0-0.7) Baso # (0.0-2.0) K/mm3 Sodium 135 (132-148) mmol/L Potassium 5.2 H (3.6-5.0) mmol/L Chloride 92 L (98-107) mmol/L Carbon Dioxide 31 (21-33) mmol/L Anion Gap 17 (10-20) BUN 60 H (7-21) mg/dL Creatinine 4.7 H (0.7-1.2) mg/dL Est GFR ( Amer) 11 Est GFR (Non-Af Amer) 9 POC Glucose (mg/dL) 124 H 122 H (65-110) mg/dL Random Glucose 141 H (70-110) mg/dL Calcium 9.0 (8.4-10.5) mg/dL Total Bilirubin 0.9 (0.2-1.3) mg/dL AST 75 H (14-36) U/L ALT 20 (7-56) U/L Alkaline Phosphatase 70 (38-126) U/L Lactate Dehydrogenase 454 (333-699) U/L Total Creatine Kinase 54 (35-230) U/L Troponin I 4.99 H* ng/mL Total Protein 7.7 (5.8-8.3) g/dL Albumin 3.6 (3.0-4.8) g/dL Globulin 4.0 gm/dL Albumin/Globulin Ratio 0.9 L (1.1-1.8) Procalcitonin (0.19-0.49) NG/ML 01/26/17 01/25/17 01/25/17 Range/Units 04:05 23:10 22:20 WBC 6.9 (4.5-11.0) 10^3/ul RBC 2.91 L (3.5-6.1) 10^6/uL Hgb 9.3 L (12.0-16.0) g/dL Hct 29.1 L (36.0-48.0) % MCV 100.0 (80.0-105.0) fl MCH 32.0 (25.0-35.0) pg MCHC 32.0 (31.0-37.0) g/dl RDW 16.2 H (11.5-14.5) % Plt Count 132 (120.0-450.0) 10^3/uL MPV 8.4 (7.0-11.0) fl Gran % 76.8 H (50.0-68.0) % Lymph % (Auto) 17.2 L (22.0-35.0) % Early % (Auto) 5.5 (1.0-6.0) % Eos % (Auto) 0.4 L (1.5-5.0) % Baso % (Auto) 0.1 (0.0-3.0) % Gran # 5.28 (1.4-6.5) Lymph # 1.2 (1.2-3.4) Early # 0.4 (0.1-0.6) Eos # 0.0 (0.0-0.7) Baso # 0.01 (0.0-2.0) K/mm3 Sodium (132-148) mmol/L Potassium (3.6-5.0) mmol/L Chloride (98-107) mmol/L Carbon Dioxide (21-33) mmol/L Anion Gap (10-20) BUN (7-21) mg/dL Creatinine (0.7-1.2) mg/dL Est GFR ( Amer) Est GFR (Non-Af Amer) POC Glucose (mg/dL) 177 H (65-110) mg/dL Random Glucose (70-110) mg/dL Calcium (8.4-10.5) mg/dL Total Bilirubin (0.2-1.3) mg/dL AST (14-36) U/L ALT (7-56) U/L Alkaline Phosphatase (38-126) U/L Lactate Dehydrogenase 492 (333-699) U/L Total Creatine Kinase 73 (35-230) U/L Troponin I 5.70 H* D ng/mL Total Protein (5.8-8.3) g/dL Albumin (3.0-4.8) g/dL Globulin gm/dL Albumin/Globulin Ratio (1.1-1.8) Procalcitonin (0.19-0.49) NG/ML 01/25/17 01/25/17 Range/Units 16:26 13:25 WBC (4.5-11.0) 10^3/ul RBC (3.5-6.1) 10^6/uL Hgb (12.0-16.0) g/dL Hct (36.0-48.0) % MCV (80.0-105.0) fl MCH (25.0-35.0) pg MCHC (31.0-37.0) g/dl RDW (11.5-14.5) % Plt Count (120.0-450.0) 10^3/uL MPV (7.0-11.0) fl Gran % (50.0-68.0) % Lymph % (Auto) (22.0-35.0) % Early % (Auto) (1.0-6.0) % Eos % (Auto) (1.5-5.0) % Baso % (Auto) (0.0-3.0) % Gran # (1.4-6.5) Lymph # (1.2-3.4) Early # (0.1-0.6) Eos # (0.0-0.7) Baso # (0.0-2.0) K/mm3 Sodium (132-148) mmol/L Potassium (3.6-5.0) mmol/L Chloride (98-107) mmol/L Carbon Dioxide (21-33) mmol/L Anion Gap (10-20) BUN (7-21) mg/dL Creatinine (0.7-1.2) mg/dL Est GFR ( Amer) Est GFR (Non-Af Amer) POC Glucose (mg/dL) 116 H (65-110) mg/dL Random Glucose (70-110) mg/dL Calcium (8.4-10.5) mg/dL Total Bilirubin (0.2-1.3) mg/dL AST (14-36) U/L ALT (7-56) U/L Alkaline Phosphatase (38-126) U/L Lactate Dehydrogenase (333-699) U/L Total Creatine Kinase (35-230) U/L Troponin I ng/mL Total Protein (5.8-8.3) g/dL Albumin (3.0-4.8) g/dL Globulin gm/dL Albumin/Globulin Ratio (1.1-1.8) Procalcitonin 1.30 H (0.19-0.49) NG/ML Laboratory Results - last 24 hr 01/25/17 01/25/17 01/25/17 13:25 16:26 22:20 WBC RBC Hgb Hct MCV MCH MCHC RDW Plt Count MPV Gran % Lymph % (Auto) Early % (Auto) Eos % (Auto) Baso % (Auto) Gran # Lymph # Early # Eos # Baso # Sodium Potassium Chloride Carbon Dioxide Anion Gap BUN Creatinine Est GFR ( Amer) Est GFR (Non-Af Amer) POC Glucose (mg/dL) 116 H 177 H Random Glucose Calcium Total Bilirubin AST ALT Alkaline Phosphatase Lactate Dehydrogenase Total Creatine Kinase Troponin I Total Protein Albumin Globulin Albumin/Globulin Ratio Procalcitonin 1.30 H 01/25/17 01/26/17 01/26/17 23:10 04:05 04:05 WBC 6.9 RBC 2.91 L Hgb 9.3 L Hct 29.1 L MCV 100.0 MCH 32.0 MCHC 32.0 RDW 16.2 H Plt Count 132 MPV 8.4 Gran % 76.8 H Lymph % (Auto) 17.2 L Early % (Auto) 5.5 Eos % (Auto) 0.4 L Baso % (Auto) 0.1 Gran # 5.28 Lymph # 1.2 Early # 0.4 Eos # 0.0 Baso # 0.01 Sodium 135 Potassium 5.2 H Chloride 92 L Carbon Dioxide 31 Anion Gap 17 BUN 60 H Creatinine 4.7 H Est GFR ( Amer) 11 Est GFR (Non-Af Amer) 9 POC Glucose (mg/dL) Random Glucose 141 H Calcium 9.0 Total Bilirubin 0.9 AST 75 H ALT 20 Alkaline Phosphatase 70 Lactate Dehydrogenase 492 454 Total Creatine Kinase 73 54 Troponin I 5.70 H* D 4.99 H* Total Protein 7.7 Albumin 3.6 Globulin 4.0 Albumin/Globulin Ratio 0.9 L Procalcitonin 01/26/17 01/26/17 07:41 11:55 WBC RBC Hgb Hct MCV MCH MCHC RDW Plt Count MPV Gran % Lymph % (Auto) Early % (Auto) Eos % (Auto) Baso % (Auto) Gran # Lymph # Early # Eos # Baso # Sodium Potassium Chloride Carbon Dioxide Anion Gap BUN Creatinine Est GFR ( Amer) Est GFR (Non-Af Amer) POC Glucose (mg/dL) 122 H 124 H Random Glucose Calcium Total Bilirubin AST ALT Alkaline Phosphatase Lactate Dehydrogenase Total Creatine Kinase Troponin I Total Protein Albumin Globulin Albumin/Globulin Ratio Procalcitonin Critical Care Progress Note - Nutrition Nutrition: Nutrition Category Date Time Status Renal Diet [DIET] Diets 01/25/17 Lunch Ordered Assessment/Plan - Assessment and Plan (Free Text) Plan: Patient seen and examined, with resident, agree with note, with following additions/exceptions: 81yo female a/w PNA, CHF, Volume overload, and NSTEMI CHF, acute on chronic, s/p HD Volume Overload PNA ESRD on HD Elevated Troponin/NSTEMI Insulin-dependent DM Recommend: - supp O2 as needed, currently stable on 2LNC, sat 99% - abx as per ID, cover for HCAP, Cefepime, Vanco - follow up Nephrology, patient s/p HD again today - Follow up cardiology, elevated troponin - obtain ECHO - ASA, Plavix, Statin - Heparin drip - FS control - GI ppx - DVT ppx - transfer to telemetry Stable
[2017-01-26] MEDS: Cefepime 1gm in NS 100ml 1 GM/100 ML BAG IVPB SCH (16:44)
--- NOTE | 2017-01-26 17:39 | PN ---
SUBJECTIVE: An 81-year-old female lying in the coronary care unit, bed #5. She is alert and oriented x 3. Nursing staff relates that there were no particular problems during the night. PHYSICAL EXAMINATION VITAL SIGNS: Her temp is 98, her blood pressure is 92/35, oxygen sat is 100% on room air, pulse is 73. NECK: Supple. HEART: S1 and S2 rhythm. LUNGS: Her lungs show rhonchi. ABDOMEN: Soft, scaphoid. Positive bowel sounds. EXTREMITIES: No evidence of edema. LABORATORY DATA: Shows a WBC of 6.9, RBC 2.91, hemoglobin 9.3, hematocrit 29.1, platelet count 132. Chemistry shows a sodium of 135, potassium 5.2, chloride 92, the BUN is 60, the creatinine is 4.7. Her random blood sugar is 122. Her troponin was 5.7 yesterday, it is now 4.99. She has a procalcitonin of 1.30. MEDICATIONS: Currently, the patient is on Ecotrin 81 mg daily, Coreg 25 mg b.i.d., mg p.o. b.i.d., IV heparin, she is on Humulin subcu with fingerstick blood sugar coverage, Imdur 30 mg daily, Lipitor 20 mg daily. She is on Maxipime 1 g q. 24, Neurontin 100 mg at bedtime, Norvasc 5 mg daily, she is on PhosLo 1334 mg t.i.d. and Plavix 75 mg daily, she is also on Synthroid 50 mcg daily, TriCor is 145 mg daily. ASSESSMENT AND PLAN: 1. The patient is status post code sepsis. 2. Volume overload; she is status post dialysis. 3. Pneumonia. 4. [id number] myocardial infarction. 5. Chronic renal failure. 6. Hypothyroid disease. 7. Insulin-dependent diabetes. 8. History of atherosclerotic heart disease. 9. History of carotid disease. The patient will continue on the current medical regimen. We are waiting a Cardiology evaluation on the patient. She is being followed by Infectious Disease and Renal. She is scheduled for dialysis again today. We will continue to monitor the patient closely and follow her labs. Shavonne Ascencio, MD
[2017-01-26 20:21] LABS: PH,URINE 8.5 (4.7-8.0); URINE BILIRUBIN MODERATE (NEGATIVE); URINE BLOOD TRACE-INTACT (NEGATIVE); URINE GLUCOSE (UA) NEGATIVE (NEGATIVE); URINE KETONE NEGATIVE (NEGATIVE); URINE LEUKOCYTE ESTERASE MODERATE Leu/uL (NEGATIVE); URINE PROTEIN >=300 mg/dL (<30 mg/dL); URINE UROBILINOGEN 0.2 E.U./dL (<1 E.U./dL)
[2017-01-26 20:23] LABS: URINE APPEARANCE SL CLOUDY (CLEAR); URINE COLOR YELLOW (YELLOW)
[2017-01-26 20:27] LABS: URINE BACTERIA FEW (NEG); URINE RBC 0 - 2 /hpf (0-2)
--- NOTE | 2017-01-26 22:16 | PN ---
DATE: 01/26/2017 SUBJECTIVE: The patient is seen lying in bed in the ICU. She is awake. She is alert. She complains of being very weak. She complains of dizziness. She denies any shortness of breath at present. She complains of some chest tightness. She denies any nausea, vomiting. She denies any abdominal pain. PHYSICAL EXAMINATION: GENERAL: Elderly lady lying in bed in the ICU, in moderate distress. VITAL SIGNS: Blood pressure 92/35, heart rate 56, respiratory rate 18-20, temperature 98. HEENT: Normocephalic, atraumatic. NECK: Supple, no JVD. LUNGS: Bilateral equal air entry, bilateral equal expansion, basilar rales bilaterally. CARDIAC: S1 and S2, regular rate and rhythm, no murmur, no rub. ABDOMEN: Soft, nondistended, nontender, bowel sounds present. EXTREMITIES: No lower extremity edema. INTAKE AND OUTPUT: 862/2500. LABORATORY DATA: WBC 6.9, hemoglobin 9.3, hematocrit 29, platelets 132. Sodium 135, potassium 5.2, chloride 92, CO2 of 31, BUN 60, creatinine 4.7, glucose 141, calcium 9.0, AST 75, ALT 20, troponin 4.99, albumin 3.6. Blood cultures negative. CURRENT MEDICATIONS: Aspirin, Coreg, doxycycline, heparin? 12 units per kg per minute, insulin, Imdur, Lipitor, cefepime 1 g, Neurontin, amlodipine 5, PhosLo, Plavix, Synthroid, TriCor. ASSESSMENT: 1. Acute coronary syndrome. 2. Possible pneumonia. 3. Pulmonary edema. 4. Xzg-egrgrjv-iijfcgzfc diabetes mellitus. 5. Hypertension. 6. Coronary artery disease. 7. End-stage renal disease. 8. Anemia of chronic kidney disease. 9. Hyperkalemia. PLAN: 1. Dialysis today, ultrafiltrate about 2 kg. 2. Continue aspirin, Plavix, statin, beta leandro. 3. Follow up echocardiogram report. 4. Follow up Cardiology recommendations. 5. Monitor fingersticks and continue insulin coverage. Case discussed with ICU resident, ICU attending at bedside at length. Case discussed with dialysis staff. More than 35 minutes was spent in the care of this critically ill patient. Barbi Linares MD [facility] # [id number]
[2017-01-27 06:19] LABS: ALB/GLOB RATIO 0.9 (1.1-1.8); BASO # 0.01 K/mm3 (0.0-2.0); BASO % 0.1 % (0.0-3.0); BILIRUBIN,TOTAL 0.8 mg/dL (0.2-1.3); CALCIUM 8.7 mg/dL (8.4-10.5); EOS # 0.1 (0.0-0.7); EOS % 0.6 % (1.5-5.0); GRAN # 6.76 (1.4-6.5); GRAN % 77.8 % (50.0-68.0); HEMATOCRIT 28.9 % (36.0-48.0); LYMPH # 1.4 (1.2-3.4); LYMPH % 16.3 % (22.0-35.0); MEAN CELL VOLUME 102.1 fl (80.0-105.0); MEAN CORPUSCULAR HEMOGLOBIN 31.1 pg (25.0-35.0); MEAN CORPUSCULAR HGB CONC 30.4 g/dl (31.0-37.0); MONO # 0.5 (0.1-0.6); MONO % 5.2 % (1.0-6.0); POTASSIUM 5.1 mmol/L (3.6-5.0); RED CELL DISTRIBUTION WIDTH 16.3 % (11.5-14.5); TOTAL PROTEIN 7.6 g/dL (5.8-8.3); WHITE BLOOD COUNT 8.7 10^3/ul (4.5-11.0)
[2017-01-27] MEDS: Heparin 25,000units in D5W 25,000 UNITS/250 ML BAG IV SCH (06:32)
[2017-01-27] MEDS: Levothyroxine 50 MCG TAB PO SCH (07:43)
[2017-01-27] MEDS: Insulin Reg-LOW-Coverage SC SCH ×4 (08:29→22:00)
[2017-01-27] MEDS: Pantoprazole 20 mg EC Tab PO SCH (09:11)
--- NOTE | 2017-01-27 12:41 | PN ---
DATE: 01/27/2017 SUBJECTIVE: The patient is in bed in no acute distress, nontoxic. No fevers. OBJECTIVE: VITAL SIGNS: The patient's temperature is 98, blood pressure is 140/40, respiratory rate of 18. HEENT: Unremarkable. NECK: Supple. LUNGS: Have decreased breath sounds. HEART: Normal S1, S2. ABDOMEN: Soft, nontender. LABORATORY EXAMINATION: Reveals a white count of 8.7, hemoglobin of 8, platelets of 156. Coagulation is noted. Chemistries reveals a BUN of 36, creatinine of 3.6. Procalcitonin is noted at 1.3. Urinalysis is noted. Review of orders reveals the patient is on p.o. doxycycline and IV cefepime. ASSESSMENT/PLAN: An 81-year-old female with past medical history of end-stage renal disease, on hemodialysis, congestive heart failure, coronary artery disease, diabetes mellitus, hypothyroidism, chronic obstructive lung disease, hypertension with systemic inflammatory response syndrome, elevated troponins consistent with a non-ST elevation myocardial infarction, negative cultures, negative chest x-ray, urinalysis is unremarkable, blood cultures are negative. Dr. Linares's note is reviewed and Dr. Hicks's note is reviewed. Dr. Ascencio' note is reviewed.. The patient does have an elevated procalcitonin; however, the patient does have creatinine of 4.7. We will follow closely with you. Empiric short course of antibiotics, on day #3 of doxycycline and cefepime. Will complete days. Jeromy Castellanos MD
[2017-01-27 12:58] LABS: TROPONIN I 2.17 ng/mL
[2017-01-27] MEDS: Cefepime 1gm in NS 100ml 1 GM/100 ML BAG IVPB SCH (15:00)
--- NOTE | 2017-01-28 01:31 | CON ---
DATE: 01/27/2017 REASON FOR CONSULTATION: Abdominal pain. HISTORY OF PRESENT ILLNESS: This 81-year-old patient with end-stage renal disease, on hemodialysis; coronary artery disease; diverticulitis, recurrent; chronic constipation; gallstones; diabetes mellitus; and hypothyroidism, was admitted to the hospital initially with shortness of breath and chest pain. The patient was found to have elevated lactate levels and also the patient being evaluated for systemic inflammatory response syndrome. The patient is on IV antibiotics as per ID for possible sepsis. The patient is on empiric antibiotic therapy as per ID. The patient is complaining of pain in the epigastric and right upper quadrant area. No vomiting. No diarrhea. OTHER PAST MEDICAL HISTORY: As above. SOCIAL HISTORY: Denies smoking or alcohol. ALLERGIES: ALLERGIC TO CEFTRIAXONE. REVIEW OF SYSTEMS: Positive as above, other systems reviewed and feels shortness of breath and is slightly better. PHYSICAL EXAMINATION: GENERAL: The patient is lying on the bed, not in acute distress. VITAL SIGNS: Temperature, she is afebrile, blood pressure 113/37, respirations 20, and O2 saturation 98%. HEENT: Atraumatic and anicteric. NECK: Supple. HEART: S1 and S2 heard. LUNGS: Bilateral air entry present. ABDOMEN: Soft. There is no mass palpable, mild tenderness present in the right upper quadrant and epigastric area. No rebound or guarding. EXTREMITIES: No cyanosis. No clubbing. NEUROLOGIC: Alert and oriented. Moves all the extremities. LABORATORY DATA: Hemoglobin 8.8, hematocrit 28.9, WBC is 8.7, and platelets 156. Chemistries; potassium 5.1, creatinine 3.6, and BUN 36. The last CT she had was in 09/2016, which was reviewed. The patient did have only chest x-ray was done, which was also reviewed. The patient had an ultrasound scan done in June was reviewed, showed no gallstones; however, the CAT scan done showed gallstones. The patient did have the colonoscopy done in September. IMPRESSION AND PLAN: This 81-year-old patient has been admitted with shortness of breath, found to have an elevated lactate levels, being evaluated for systemic inflammatory response syndrome, on empiric antibiotic therapy as per Infectious Disease. The patient has end-stage renal disease, on hemodialysis. Non-ST segment myocardial infarction. She has abdominal pain in the epigastric and right upper quadrant. The differential diagnoses should include peptic ulcer disease, cholelithiasis, rule out biliary colic,rule out cholecystitis, and congested liver also to be considered as a differential diagnosis. The patient had an upper GI endoscopy and colonoscopy done on 12/18/2014. Upper GI endoscopy was normal. Colonoscopy revealed diverticulosis and hemorrhoids. The patient has a history of polyps in the past. The patient also had a mesenteric lymphadenopathy. We would recommend: 1. Continue the PPI. 2. We will change the diet to pureed diet as the patient has a history of gastroparesis in the past. 3. We will consider ultrasound scan of the abdomen to further evaluate. We will continue to closely follow up her care and suggest further management based on the clinical course. Ysabel Theodore MD
[2017-01-28 04:54] LABS: ALB/GLOB RATIO 0.9 (1.1-1.8); BILIRUBIN,TOTAL 0.7 mg/dL (0.2-1.3); CALCIUM 8.4 mg/dL (8.4-10.5); POTASSIUM 4.9 mmol/L (3.6-5.0); TOTAL PROTEIN 7.5 g/dL (5.8-8.3)
[2017-01-28 05:01] LABS: EOS % 0.7 % (1.5-5.0); GRAN # 3.85 (1.4-6.5); GRAN % 70.4 % (50.0-68.0); HEMATOCRIT 26.9 % (36.0-48.0); LYMPH # 1.2 (1.2-3.4); LYMPH % 22.5 % (22.0-35.0); MEAN PLATELET VOLUME 9.1 fl (7.0-11.0); MONO # 0.4 (0.1-0.6); MONO % 6.4 % (1.0-6.0); WHITE BLOOD COUNT 5.5 10^3/ul (4.5-11.0)
[2017-01-28] MEDS: Heparin 25,000units in D5W 25,000 UNITS/250 ML BAG IV SCH ×2 (05:13→22:35)
[2017-01-28] MEDS: Insulin Reg-LOW-Coverage SC SCH ×3 (08:14→17:02)
[2017-01-28] MEDS: Levothyroxine 50 MCG TAB PO SCH (09:20)
--- NOTE | 2017-01-28 09:23 | CARD ---
APPROVED REPORT EXAM: Two-dimensional and M-mode echocardiogram with Doppler and color Doppler. Other Information Quality : FairRhythm : INDICATION Chest Pain , + trops 2D DIMENSIONS Left Atrium (2D)3.8 (1.6-4.0cm)IVSd1.3 (0.7-1.1cm) LVDd4.4 (3.9-5.9cm)PWd1.2 (0.7-1.1cm) LVDs3.2 (2.5-4.0cm)FS (%) 27.4 % LVEF (%)53.0 (>50%) M-Mode DIMENSIONS Aortic Root2.60 (2.2-3.7cm)Aortic Cusp Exc.0.90 (1.5-2.0cm) Aortic Valve AoV Peak Bfyclhvv708.0cm/s Mitral Valve MV E Lrundllx173.0cm/sMV A Wydvbwnd54.1cm/sE/A ratio1.3 TDI E/Lateral E'0.0E/Medial E'0.0 Tricuspid Valve TR Peak Birjcllo023xq/sRAP [id number] Peak Gr.11mmHg [id number] LEFT VENTRICLE The left ventricle is normal size. There is mild concentric left ventricular hypertrophy. The left ventricular function is normal. The left ventricular ejection fraction is within the normal range. There is normal LV segmental wall motion. RIGHT VENTRICLE The right ventricle is normal size. ATRIA The left atrium size is normal. The right atrium size is normal. The interatrial septum is intact with no evidence for an atrial septal defect. AORTIC VALVE The aortic valve is moderately calcified. MITRAL VALVE The mitral valve is moderately thickened but opens well. Mitral annular calcification is moderate. Mitral regurgitation is moderate. TRICUSPID VALVE The tricuspid valve is normal in structure. There is mild tricuspid regurgitation. PULMONIC VALVE The pulmonic valve is not well visualized. GREAT VESSELS The aortic root is normal in size. PERICARDIAL EFFUSION There is no pericardial effusion. <Conclusion> The left ventricle is normal size. The left ventricular function is normal. There is mild concentric left ventricular hypertrophy. The aortic valve is moderately calcified. Aortic sclerosis. Mitral regurgitation is moderate. There is mild tricuspid regurgitation.
--- NOTE | 2017-01-28 09:55 | CON ---
DATE: 01/28/2017 INDICATIONS: Chest pain, positive troponins. HISTORY OF PRESENT ILLNESS: This is an 81-year-old woman well known to me from prior admissions, admitted on 01/25/2017, with shortness of breath and chest discomfort. Chest pain was left sided. She was admitted to the Intensive Care Unit, subsequently troponins are elevated, chest pain has subsided. Today, she has abdominal pain. She is undergoing a GI evaluation as well. Shortness of breath has improved. She received hemodialysis yesterday and ultrafiltration initially. There is no orthopnea, PND, syncope, palpitation, fever, chills, cough, hemoptysis, nausea, vomiting, diarrhea, constipation,or melena. PAST MEDICAL HISTORY: Complex, she has chronic kidney disease and hemodialysis 3 times a week. She has coronary artery disease with remote myocardial infarction. She has been admitted with chest pain and positive troponins. Her echocardiogram shows normal LV function and moderate mitral regurgitation. She has history of hypertension, diabetes, hyperlipidemia,anemia, diverticulitis, cerebrovascular disease, carotid stent, GI bleeding, angiodysplasia, peripheral neuropathy, colonic polyps and hypothyroidism. MEDICATIONS: At the time of admission include aspirin, Coreg, Humulin, isosorbide, Lipitor, gabapentin, Norvasc, PhosLo, Protonix, Synthroid, and TriCor. ALLERGIES: SHE HAS AN ALLERGY TO CEFTRIAXONE. SOCIAL HISTORY: She lives at home. She does not smoke. She does not drink. FAMILY HISTORY: Noncontributory. REVIEW OF SYSTEMS: A 10-point review of systems is unremarkable except as noted above. PHYSICAL EXAMINATION: GENERAL: She is an elderly woman lying in bed in the CCU, in no acute distress, complaining of abdominal pain intermittently. VITAL SIGNS: She is in sinus rhythm at 57 to 97 beats per minute. She is afebrile. Blood pressure 146/40, respirations 14 to 32 and O2 saturation 96% to 100% on nasal cannula. HEENT: Reveals no neck vein distention, thyromegaly, or carotid bruits. Mucous membranes are moist. Conjunctivae pink. NECK: Supple. LUNGS: Lung riggs reveal bilateral rhonchi. HEART: Reveals normal first and second heart sounds. She has a systolic murmur along the left sternal border. ABDOMEN: Soft. Bowel sounds are present. No mass, organomegaly, tenderness, rebound, or guarding. No CVA tenderness. No palpable abdominal aortic aneurysm. EXTREMITIES: Reveals no cyanosis, clubbing, or edema. NEUROLOGIC: Awake, alert, and oriented. SKIN: Warm and dry. No rash or cellulitis. PSYCHIATRIC: Normal as to mood and affect. LABORATORY AND IMAGING: A portable chest x-ray on 01/25/2017 revealed pulmonary vascular congestion. EKG demonstrated sinus tachycardia, poor R wave progression, LVH, IVCD, ST-T wave changes consistent with ischemia. No change from the prior EKG. White count is normal. Platelet count is normal. Most recent hemoglobin is 8.6, hematocrit 26.9. PT 12.1, INR 1.12, PTT 28.4 and then consistent with heparin. Blood gases are noted. Electrolytes are unremarkable. BUN 54, creatinine 5.1 and blood sugars noted. LFTs mildly elevated. Troponins elevated, peak 4.44 and 5.70, most recent 2.17. Urinalysis noted. IMPRESSION: Margo Uriarte is an 81-year-old woman who presented with shortness of breath and chest pain and positive troponins in the setting of chronic renal disease. This may represent non-ST elevation myocardial infarction. Today, she has abdominal pain, which is being evaluated. Her shortness of breath has improved with hemodialysis. An echocardiogram has been done, I will review this. I have discussed the case with Dr. Ascencio. We will continue her current medications including aspirin, Coreg, heparin, isosorbide, Lipitor, amlodipine, Plavix, Protonix, Synthroid and TriCor. She is being seen by Dr. Theodore. Abdominal ultrasound is ordered. I will check amylase and lipase. She can be out of bed to chair. Check stool for occult blood. Monitor I's and O's. Review old records. A conservative course cardiac care is anticipated. We will follow. Rahul Velez MD MTDJose J
--- NOTE | 2017-01-28 10:10 | PN ---
DATE: 01/28/2017 SUBJECTIVE: The patient is in bed in CCU 129, bed 5. She still complains of epigastric pain on and off. She has no fevers. PHYSICAL EXAMINATION: VITAL SIGNS: On exam, temperature is 98.0, blood pressure is 146/40, respiratory rate of 32, heart rate of 57. HEENT: Unremarkable. NECK: Supple. LUNGS: Decreased breath sounds. HEART: Normal S1 and S2. ABDOMEN: Soft. No rebound or guarding. No masses. LABORATORY EXAMINATION: Reveals a white count of 5.5, hemoglobin of 8, platelets of 152. BUN of 54, creatinine of 5.1, troponin of 2.17. The patient has had consistently very high troponins of 2.0, 4.4, 5.7, 4.9, 2.1 and urinalysis is noted. Urine Legionella is negative. Blood cultures negative. MRSA nasal screen is negative. Sputum cultures are normal louise. REVIEW OF ORDERS: Reveals the patient to be on doxycycline and cefepime. Repeat chest x-ray is pending. Initial chest x-ray is no active disease. ASSESSMENT/PLAN: This is an 81-year-old female with past medical history of end-stage renal disease; on hemodialysis, congestive heart failure, coronary artery disease, diabetes mellitus, hypothyroidism, chronic obstructive lung disease, and hypertension. The patient with systemic inflammatory response syndrome and non-ST elevation myocardial infarction with high-risk LILI score and currently on cefepime and doxycycline, day #4. We will check on the repeat chest x-ray, if negative, we will discontinue the antibiotics. The patient did have an elevated procalcitonin of 1.3; however, in a face of creatinine of 5.1.. We will follow closely with you. The patient is also on aspirin, Coreg, and intravenous heparin and a statin and Protonix. Overall prognosis is poor. Case discussed with Dr. Ascencio yesterday at length. Jeromy Castellanos MD
--- NOTE | 2017-01-28 10:27 | PN ---
DATE: 01/27/2017 SUBJECTIVE: The patient is in the coronary care unit. She is complaining of some abdominal discomfort. PHYSICAL EXAMINATION: VITAL SIGNS: Showed a temp of 98.7, her pulse was 57, and her blood pressure was 109/60. GENERAL: She is alert and oriented x3. NECK: Supple. There is no JVD. LUNGS: Showed diminished breath sounds. HEART: S1 and S2 rhythm. ABDOMEN: Showed some mild discomfort in the right periumbilical area. No rebound was appreciated. EXTREMITIES: No evidence of edema. LABORATORY DATA: Showed a WBC of 8.7, RBC of 2.83, hemoglobin 8.8, hematocrit 28.9, platelet count 156. Chemistry showed a blood sugar of 176; her troponin is 2.17. Her sodium is 137, potassium 5.1, chloride 92, BUN is 36, creatinine is 3.6. AST is 61. PLAN: The patient had a non-STEMI. She is currently being followed by the intensive care unit. Cardiology consult is pending. She continues on Plavix and aspirin and IV heparin. She has an insulin-dependant diabetic, on fingerstick coverage. She is a chronic renal failure patient, on dialysis 4 times a week. She is currently on Maxipime by Infectious Disease. She had an elevated lactic acid level on admission with code sepsis in the emergency room. Today, cultures of the blood are negative. MRSA screen is negative. A urine culture has been requested. We will request a GI evaluation for her abdominal discomfort. She has a history of gallstones in the past and history of diverticulosis. Continue current monitoring and follow the guidelines of the individual consultants at this time and follow up of her labs. Shavonne Ascencio MD
[2017-01-28] MEDS: Cefepime 1gm in NS 100ml 1 GM/100 ML BAG IVPB SCH (13:11)
--- NOTE | 2017-01-28 14:55 | RAD ---
HISTORY: r/o pna COMPARISON: Comparison chest 01/25/2017 TECHNIQUE: Chest PA and lateral FINDINGS: LUNGS: Mild persistent pulmonary vascular congestive changes though improved from prior exam. . Suspect small bilateral effusions PLEURA: As above. No pneumothorax apparent. CARDIOVASCULAR: Borderline cardiomegaly. TheNormal. OSSEOUS STRUCTURES: No significant abnormalities. VISUALIZED UPPER ABDOMEN: Normal. OTHER FINDINGS: None. IMPRESSION: Mild persistent pulmonary vascular congestive changes though improved from prior exam. . Suspect small bilateral effusions
--- NOTE | 2017-01-28 15:08 | PN ---
SUBJECTIVE: An 81-year-old female resting in bed in the coronary care unit. The patient, as reported by the nurse, did state that she had some mild lightheadedness when attempting to sit up. She denies any chest pain or abdominal pain at this time, although nurse does state a complaint at time she complains about some discomfort under the breast, above the belly area. PHYSICAL EXAMINATION: VITAL SIGNS: Show a blood pressure of 129/48, pulse is 82, respirations are 18 and oxygen sat is 97% on room air. LABORATORY DATA: Shows a WBC of 5.5, RBC 2.69, hemoglobin 8.6, hemachrotic 26.9, platelet count 152. Chemistry showed normal electrolytes. The BUN is 54, the creatinine is 5.1, random blood sugar is 142. ASSESSMENT: The patient has sustained a non-ST myocardial infarction, currently on IV heparin, Plavix and aspirin and is being followed by cardiology. An echocardiogram has been ordered, and we are awaiting results of the echocardiogram. One must consider the possibility of the underlying discomfort that she complains about is either of cardiac or gastroenterology etiology. A request has been made for an ultrasound of the abdomen by the general repairer in evaluating this. She was volume overloaded on admission. She has chronic renal disease, has received dialysis and has clinically improved. We will continue her current medical management with a fingerstick coverage for her diabetes, blood sugars. Continue her IV heparin. She continues on p.o. Doryx and Maxipime IV as she was admitted through the emergency room with a code sepsis with an elevated lactic acid level. The patient has multiple risk factors with high troponin. She has systemic inflammatory response syndrome and a [id number] myocardial infarction. Followup chest x-ray has been requested and we will await input from cardiology. Shavonne Ascencio MD
--- NOTE | 2017-01-28 15:27 | PN ---
DATE: 01/27/2017 SUBJECTIVE: The patient is seen lying in bed. She is in the ICU. She is awake. She is alert. She is complaining of dizziness. She is complaining of epigastric pain. She is complaining of some chest discomfort. She denies any nausea, vomiting. She denies any lower abdominal pain. She denies any cough at present. PHYSICAL EXAMINATION: GENERAL: Elderly lady, lying in bed, in the ICU. VITAL SIGNS: Blood pressure 129/41, heart rate 55, respiratory rate 31, temperature 98. HEENT: Normocephalic, atraumatic. NECK: Supple, no JVD. LUNGS: Bilateral equal entry, bilateral equal expansion, minimal rales at the bases. CARDIAC: S1 and S2, regular rate rhythm, no murmur, no rub. ABDOMEN: Distended, soft, positive tenderness in the epigastrium, bowel sounds are present. EXTREMITIES: No lower extremity edema. INTAKE AND OUTPUT: 1307. LABORATORY DATA: WBC 8.7, hemoglobin 8.8, hematocrit 29, platelets 156. Sodium 137, potassium 5.1, chloride 92, CO2 of 34, BUN 36, creatinine 2.6, glucose 134, calcium 8.7, AST 60, ALT 25, albumin 3.7. Cultures: All negative. MEDICATIONS: Aspirin, Coreg 25 b.i.d., doxycycline 100 q.12, heparin at 12 units per kg per hour, insulin, Imdur 30, Lipitor 20, cefepime 1 g, Neurontin 100, amlodipine 5, PhosLo 1334 t.i.d., Plavix 75, Protonix, Synthroid, TriCor. ASSESSMENT: An 81-year-old lady with multiple medical problems including noninsulin-dependent diabetes mellitus, hypertension, coronary artery disease, paroxysmal atrial fibrillation, end-stage renal disease, congestive heart failure, anemia of chronic kidney disease, secondary hyperparathyroidism, admitted with complaints of chest tightness, shortness of breath, chest pressure. Found to have acute coronary syndrome, pulmonary edema, systemic inflammatory response syndrome, [id number] myocardial infarction. The patient is currently receiving empiric antibiotics for possible pneumonia. 1. Gdq-GE-iydlckrxs myocardial infarction/acute coronary syndrome. 2. Pulmonary edema. 3. Underlying coronary artery disease. 4. Hypertension. 5. Anemia of chronic kidney disease. 6. End-stage renal disease. 7. Secondary hyperparathyroidism. PLAN: 1. The patient received a ultrafiltration on , she received regular dialysis on Sunday. Currently her volume status is acceptable. No dialysis today. 2. Continue antibiotics as per ID recommendations. 3. Continue management of acute coronary syndrome as per cardiology recommendations. 4. Agree with plan to start IV heparin. 5. Continue beta-leandro, aspirin, lipid-lowering therapy, statin. 6. We will evaluate again for dialysis tomorrow. Case was discussed with ICU staff, ICU nurses, dialysis nurses. More than 35 minutes was spent in the care of this critically ill patient. Barbi Linares MD
--- NOTE | 2017-01-28 16:17 | US ---
HISTORY: Abdominal pain COMPARISON: Comparison made with abdominal ultrasound 06/15/[address] scan chest, abdomen pelvis 09/22/2016 TECHNIQUE: Sonographic evaluation of the abdomen. FINDINGS: LIVER: Measures approximately 14 cm. Smooth contour however increased echotexture consistent with fatty hepatic infiltration ; other infiltrative hepatocellular disease process not excluded. Echogenicity of the liver parenchyma. No mass. No intrahepatic bile duct dilatation. No ascites. Portal vein exhibits hepatopetal flow GALLBLADDER: Unremarkable. No gallstones. No pericholecystic fluid collections or sonographic Rendon sign COMMON BILE DUCT: Measures approximately 4.6 mm. No stones. No dilatation. PANCREAS: Unremarkable as visualized. No mass. No ductal dilatation. RIGHT KIDNEY: Measures approximately 9.4 x 4.2 x 4.6cm. Cortical thinning with increased cortical echotexture suggesting medical renal disease. No calculus, mass, or hydronephrosis. LEFT KIDNEY: Measures 9.1 x 3.5cm. Cortical thinning with increased cortical echotexture suggesting medical renal disease. . There is a small cystic focus upper pole left kidney measuring approximately 1 cm in greatest dimension. . No calculus, mass, or hydronephrosis. SPLEEN: Spleen is enlarged measuring approximately 13.2 cm in greatest dimension. No splenic mass collection or calcification. AORTA: No aneurysmal dilatation. IVC: Unremarkable. OTHER FINDINGS: None. IMPRESSION: Cholelithiasis and probable sludge balls. Fatty hepatic infiltration. Echogenic kidneys consistent with underlying medical renal disease. Small left renal cyst upper pole left kidney.
--- NOTE | 2017-01-29 03:33 | PN ---
SUBJECTIVE: This patient was seen and evaluated earlier. The patient is on a pureed diet. Her right upper quadrant abdominal discomfort has improved significantly, but still has some discomfort in the epigastric area. The patient's ultrasound scan was reviewed. It shows no gallstones. The CT done before showed multiple gallstones. PHYSICAL EXAMINATION VITAL SIGNS: Temperature is 98.6, pulse is 57, blood pressure 133/41, respirations 18 and O2 saturation 100%. HEENT: Atraumatic. Anicteric. NECK: Supple. HEART: S1 and S2 heard. LUNGS: Bilateral air entry present. ABDOMEN: Soft. There is a mild tenderness present in the epigastric and the right upper quadrant area. EXTREMITIES: No cyanosis. No clubbing. NEUROLOGIC: Alert and oriented. Moves all the extremities. LABORATORY DATA: Hemoglobin is 8.6, hematocrit 26.9, WBC 5.5, platelets 162. Chemistry showed AST 73, BUN 54, and creatinine 5.1. IMPRESSION: This 81-year-old patient with end-stage renal disease, on hemodialysis; coronary artery disease; congestive heart failure; diabetes mellitus; chronic obstructive lung disease; admitted with shortness of breath; found to have non-ST segment myocardial infarction. Also had serum lactate level high and on empiric antibiotic therapy for systemic inflammatory response syndrome. Presently, on cefepime and doxycycline. Antibiotics as per ID. Right upper quadrant pain, history of gastroparesis. The differential diagnoses include peptic ulcer disease, gastroesophageal reflux disease, hepatic congestion. Also should be considered the differential diagnosis in view of chronic obstructive pulmonary disease and congestive heart failure. The patient's CAT scan show some calcification in the gallbladder area. The patient will report multiple gallstones; however, the ultrasound did not reveal any gallstones. One possibility should be gallbladder wall calcification. We will review with the radiologist regarding this in the a.m. The patient is presently on Protonix. We will continue that, continue the pureed diet, continue the antibiotics as per ID. Cardiology and Renal followup. Thank you very much for allowing us to participate in the care of the patient. Ysabel Theodore MD
[2017-01-29 06:39] LABS: BASO # 0.01 K/mm3 (0.0-2.0); BASO % 0.1 % (0.0-3.0); EOS % 0.6 % (1.5-5.0); GRAN # 4.91 (1.4-6.5); GRAN % 68.8 % (50.0-68.0); HEMATOCRIT 27.3 % (36.0-48.0); LYMPH # 1.7 (1.2-3.4); LYMPH % 23.9 % (22.0-35.0); MEAN CELL VOLUME 97.5 fl (80.0-105.0); MEAN CORPUSCULAR HEMOGLOBIN 31.4 pg (25.0-35.0); MEAN CORPUSCULAR HGB CONC 32.2 g/dl (31.0-37.0); MEAN PLATELET VOLUME 8.6 fl (7.0-11.0); MONO # 0.5 (0.1-0.6); MONO % 6.6 % (1.0-6.0); RED CELL DISTRIBUTION WIDTH 15.8 % (11.5-14.5); WHITE BLOOD COUNT 7.1 10^3/ul (4.5-11.0)
[2017-01-29 06:59] LABS: ALB/GLOB RATIO 0.9 (1.1-1.8); BILIRUBIN,TOTAL 0.6 mg/dL (0.2-1.3); CALCIUM 8.4 mg/dL (8.4-10.5); TOTAL PROTEIN 7.4 g/dL (5.8-8.3)
[2017-01-29] MEDS: Levothyroxine 50 MCG TAB PO SCH (07:56)
[2017-01-29] MEDS: Pantoprazole 20 mg EC Tab PO SCH (07:56)
[2017-01-29] MEDS: Insulin Reg-LOW-Coverage SC SCH ×4 (07:57→22:28)
--- NOTE | 2017-01-29 08:13 | CP.PCM.PN ---
Subjective - Date & Time of Evaluation Date of Evaluation: 01/29/17 Time of Evaluation: 07:00 - Subjective Subjective: Stable in CCU. Still RUQ/LEON pain. No CP or SOB. V/S noted. RSR PE: Lungs: clear Cor.: S1S2, sys. murmur Abd.: soft Ext>: no edema Neuro.: alert I/O= 1592/220 recorded Labs noted: H/H 8.8/27.3, PTT= 74.5, K+= 6.0, Amylase/Lipase both Nl. BC x2 NG at 4 days CXR 01/28: improved vasc congestion, small pl. effusions Echo: Nl LV fx, LVH, mod. MR Objective - Vital Signs/Intake and Output Vital Signs (last 24 hours): Temp Pulse Resp BP Pulse Ox 98 F 57 L 18 133/41 L 100 01/29/17 00:01 01/29/17 06:00 01/28/17 19:20 01/28/17 18:00 01/28/17 19:20 Intake and Output: 01/29/17 01/29/17 06:59 18:59 Intake Total 680 Output Total 100 Balance 580 - Medications Medications: Current Medications Amlodipine Besylate (Norvasc) 5 mg PO DAILY [facility] Last Admin: 01/28/17 13:15 Dose: 5 mg Aspirin (Aspirin Chewable) 81 mg PO DAILY [facility] Last Admin: 01/28/17 09:19 Dose: 81 mg Atorvastatin Calcium (Lipitor) 20 mg PO DIN [facility] Last Admin: 01/28/17 17:36 Dose: 20 mg Calcium Acetate (Phoslo) 1,334 mg PO TID [facility] Last Admin: 01/28/17 17:36 Dose: 1,334 mg Carvedilol (Coreg) 25 mg PO 0800,1700 [facility] Last Admin: 01/28/17 17:36 Dose: 25 mg Clopidogrel Bisulfate (Plavix) 75 mg PO DAILY [facility] Last Admin: 01/28/17 09:19 Dose: 75 mg Doxycycline Hyclate (Doryx) 100 mg PO Q12 [facility] PRN Reason: Protocol Stop: 02/03/17 13:27 Last Admin: 01/28/17 22:00 Dose: 100 mg Fenofibrate (Tricor) 145 mg PO DAILY [facility] Last Admin: 01/28/17 09:19 Dose: 145 mg Gabapentin (Neurontin) 100 mg PO HS [facility] PRN Reason: Protocol Last Admin: 01/27/17 21:45 Dose: 100 mg Home Med ([facility] Med) [facility] Last Admin: 01/26/17 10:54 Dose: 1 unit Cefepime HCl (Maxipime 1gm) 1 gm in 100 mls @ 100 mls/hr IVPB Q24H [facility] PRN Reason: Protocol Stop: 02/03/17 13:31 Last Admin: 01/28/17 13:11 Dose: 100 mls/hr Heparin Sodium/Dextrose (Heparin 25,000 Units/250ml In D5w) 25,000 units in 250 mls @ 7.022 mls/hr IV .Q24H [facility]; 12 UNITS/KG/HR PRN Reason: Protocol Last Admin: 01/28/17 22:35 Dose: 27.34 units/kg/hr, 16 mls/hr Insulin Human Regular (Humulin R Low) 0 units SC ACHS [facility] PRN Reason: Protocol Last Admin: 01/29/17 07:57 Dose: Not Given Isosorbide Mononitrate (Imdur Er) 30 mg PO 0600 [facility] Last Admin: 01/29/17 07:56 Dose: 30 mg Levothyroxine Sodium (Synthroid) 50 mcg PO ACB [facility] Last Admin: 01/29/17 07:56 Dose: 50 mcg Pantoprazole Sodium (Protonix Ec Tab) 20 mg PO 0600 [facility] Last Admin: 01/29/17 07:56 Dose: 20 mg - Labs Labs: 01/29/17 05:30 01/29/17 05:30 PT 12.1 Seconds (9.9-11.8) H 01/25/17 07:00 INR 1.12 (0.93-1.08) H 01/25/17 07:00 APTT 74.5 Seconds (23.7-30.8) H* 01/29/17 05:30 Assessment and Plan - Assessment and Plan (Free Text) Assessment: CP/SOB initially + trop, possible NSTEMI but echo shows continue NL LV fx Abd. Pain CKD/HD/K+= 6.0 today HBP MR, moderate Diabetes HLD Diverticulitis Anemia CVD/Carotid Stent GIB/Angiodysplasias PN Colonic Polyps Hypothyroidism Plan: As per GI As per Renal: HD today As per Dr. Ascencio Continue cardiac meds. Continue heparin for now. Conservative cardiac care anticipated. Tel bed. Monitor: Stools for OB, labs, PTT's, I/O, sats., etc.
[2017-01-29] MEDS: ANECREAM TOP SCH (09:32)
--- NOTE | 2017-01-29 10:25 | PN ---
DATE: 01/28/2017 SUBJECTIVE: The patient is seen lying in bed in the ICU. She is awake and alert. She is comfortable. She complains of dizziness. She complains of headache. She complains of epigastric pain. She complains of some chest heaviness. PHYSICAL EXAMINATION GENERAL: An elderly lady sitting in chair. VITAL SIGNS: Blood pressure 131/46 ,heart rate 56, respiratory rate 18-20, temperature 98.6. HEENT: Normocephalic, atraumatic. NECK: Supple, no JVD. LUNGS: Bilateral equal air entry, no rales. CARDIAC: S1 and S2. Regular rate and rhythm, no murmur, no rub. ABDOMEN: Soft, nondistended, positive tenderness in the epigastrium, bowel sounds present. EXTREMITIES: No lower extremity edema. Intake and output 912/120. LABORATORY DATA: WBC 5.5, hemoglobin 8.6, hematocrit 27, platelets 152. Sodium 132, potassium 4.9, chloride 92, CO2 29, BUN 54, creatinine 5.5, glucose 153, calcium 8.4, AST 73, ALT 21, albumin 3.5. CURRENT MEDICATIONS: Aspirin, Coreg, doxycycline, heparin, insulin, Imdur, Lipitor, Maxipime, Neurontin, amlodipine, Plavix, Protonix, Synthroid, TriCor. ASSESSMENT: 1. Tip-[id number] myocardial infarction and/acute coronary syndrome. 2. Pulmonary edema. 3. ? Pneumonia. 4. Hypertension. 5. Oca-dpnrizy-svxhifpof diabetes mellitus. 6. End-stage renal disease. PLAN: 1. Continue heparin, beta-leandro, aspirin, Plavix, statin as per cardiology. 2. Continue empiric antibiotics as per ID. 3. No dialysis today. 4. Dialysis tomorrow. Barbi Linares MD
--- NOTE | 2017-01-29 11:12 | RAD ---
HISTORY: chest pain COMPARISON: 01/28/2017 FINDINGS: LUNGS: No active pulmonary disease. PLEURA: No significant pleural effusion identified, no pneumothorax apparent. CARDIOVASCULAR: Normal. There is mild vascular congestion OSSEOUS STRUCTURES: No significant abnormalities. VISUALIZED UPPER ABDOMEN: Normal. OTHER FINDINGS: None. IMPRESSION: No active disease.
--- NOTE | 2017-01-29 11:21 | PQF CHF ---
This form is a permanent part of the medical record Dr. Ascencio, Patient admitted with chest pain and SOB. Diagnosis of NSTEMI made. CXR shows pulmonary vascular congestion and documentation notes pulmonary edema and volume overload. BNP elevated. Please clarify if CHF was present, ruled out, undetermined. If present type and severity. Clarification of your documentation is requested to better reflect the severity of illness and intensity of treatment of your patient. Indicators present [] Diagnosis of CHF and/or history of CHF [] BNP > 200 [] Imaging Finding of Pulmonary Edema /Pleural Effusions [] Fluid/Volume Overload x [] Pitting edema [] Ejection Fraction < 40% (Indicative of Systolic Heart Failure) [] Ejection Fraction > 40% (Indicative of Diastolic Heart Failure) [] Dyspnea / Orthopenea / Paroxysmal Nocturnal Dyspnea [] Other: Location in the medical record that reflects the above clinical findings: [] Treatment Provided: [] PHYSICIAN'S RESPONSE Based on your medical judgment of the clinical indicators outlined above, are you treating this patient for a known or suspected: [] Acute CHF [] Systolic [] Diastolic [] Combined [] Chronic CHF [] Systolic [] Diastolic [] Combined [] Acute on Chronic CHF []Systolic [] Diastolic [] Combined [] CHF due hypertension [] Acute systolic []Chronic systolic [] Acute/ chronic systolic [] Other, please indicate: [] [] If Unable to Determine, please check the box, sign and date. Present On Admission (POA) Indicator: [] Present at the time of admission [] Not present at the time of admission [] Clinically Undetermined In responding to this query, please exercise your independent professional judgment. The fact that a question is asked does not imply that any particular answer is desired or expected. Thank you for your clarification on this documentation. If you have any questions please call:[ ] * Thank you, [ ]Nichelle [facility] #[id number] small craft operator MELANIE
--- NOTE | 2017-01-29 11:25 | CP.PCM.PN ---
Subjective - Date & Time of Evaluation Date of Evaluation: 01/29/17 Time of Evaluation: 11:10 - Subjective Subjective: Not in distress but still feels weak, no fevers overnight, still with occasional cough. Objective - Vital Signs/Intake and Output Vital Signs (last 24 hours): Temp Pulse Resp BP Pulse Ox 98 F 57 L 18 133/41 L 100 01/29/17 00:01 01/29/17 06:00 01/28/17 19:20 01/28/17 18:00 01/28/17 19:20 Intake and Output: 01/29/17 01/29/17 06:59 18:59 Intake Total 680 Output Total 100 Balance 580 - Medications Medications: Current Medications Amlodipine Besylate (Norvasc) 5 mg PO DAILY [facility] Last Admin: 01/28/17 13:15 Dose: 5 mg Aspirin (Aspirin Chewable) 81 mg PO DAILY [facility] Last Admin: 01/29/17 09:29 Dose: 81 mg Atorvastatin Calcium (Lipitor) 20 mg PO DIN [facility] Last Admin: 01/28/17 17:36 Dose: 20 mg Calcium Acetate (Phoslo) 1,334 mg PO TID [facility] Last Admin: 01/29/17 09:29 Dose: 1,334 mg Carvedilol (Coreg) 25 mg PO 0800,1700 [facility] Last Admin: 01/28/17 17:36 Dose: 25 mg Clopidogrel Bisulfate (Plavix) 75 mg PO DAILY [facility] Last Admin: 01/29/17 09:29 Dose: 75 mg Doxycycline Hyclate (Doryx) 100 mg PO Q12 [facility] PRN Reason: Protocol Stop: 02/03/17 13:27 Last Admin: 01/29/17 09:29 Dose: 100 mg Fenofibrate (Tricor) 145 mg PO DAILY [facility] Last Admin: 01/29/17 09:30 Dose: 145 mg Gabapentin (Neurontin) 100 mg PO HS [facility] PRN Reason: Protocol Last Admin: 01/27/17 21:45 Dose: 100 mg Home Med (Home Med) 1 unit TOP MWF [facility] Last Admin: 01/29/17 09:32 Dose: 1 unit Cefepime HCl (Maxipime 1gm) 1 gm in 100 mls @ 100 mls/hr IVPB Q24H [facility] PRN Reason: Protocol Stop: 02/03/17 13:31 Last Admin: 01/28/17 13:11 Dose: 100 mls/hr Heparin Sodium/Dextrose (Heparin 25,000 Units/250ml In D5w) 25,000 units in 250 mls @ 7.022 mls/hr IV .Q24H [facility]; 12 UNITS/KG/HR PRN Reason: Protocol Last Admin: 01/28/17 22:35 Dose: 27.34 units/kg/hr, 16 mls/hr Insulin Human Regular (Humulin R Low) 0 units SC ACHS [facility] PRN Reason: Protocol Last Admin: 01/29/17 07:57 Dose: Not Given Isosorbide Mononitrate (Imdur Er) 30 mg PO 0600 [facility] Last Admin: 01/29/17 07:56 Dose: 30 mg Levothyroxine Sodium (Synthroid) 50 mcg PO ACB [facility] Last Admin: 01/29/17 07:56 Dose: 50 mcg Pantoprazole Sodium (Protonix Ec Tab) 20 mg PO 0600 [facility] Last Admin: 01/29/17 07:56 Dose: 20 mg - Labs Labs: 01/29/17 05:30 01/29/17 05:30 PT 12.1 Seconds (9.9-11.8) H 01/25/17 07:00 INR 1.12 (0.93-1.08) H 01/25/17 07:00 APTT 74.5 Seconds (23.7-30.8) H* 01/29/17 05:30 - Constitutional Appears: Chronically Ill - Head Exam Head Exam: NORMAL INSPECTION - ENT Exam ENT Exam: Mucous Membranes Moist - Neck Exam Neck Exam: absent: Meningismus - Respiratory Exam Respiratory Exam: Decreased Breath Sounds, Rales (scattered) - Cardiovascular Exam Cardiovascular Exam: +S1, +S2 - GI/Abdominal Exam GI & Abdominal Exam: Soft. absent: Tenderness Assessment and Plan - Assessment and Plan (Free Text) Plan: Assessment Systemic Inflammatory Response Syndrome, consider due to acute NSTEMI, R/O bilateral lobe healthcare-associated pneumonia history of healthcare-associated pneumonia (right upper lobe, bilateral lower lobes) HTN DM CAD with chronic CHF ESRD on HD Plan Continue Cefepime and Doxycycline day 5, up to 7 days of therapy; PCT was elevated on admission at 1.3 but patient has chronic renal failure reviewed CXR today which shows pulmonary vascular congestion and bilateral pleural effusions - cannot rule out infiltrates cultures have been negative will monitor clinically
--- NOTE | 2017-01-29 11:48 | CP.PCM.PN ---
<Starr Bowers - Last Filed: 01/29/17 11:44> Subjective - Date & Time of Evaluation Date of Evaluation: 01/29/17 Time of Evaluation: 09:50 - Subjective Subjective: Seen and examined at the bedside earlier this morning, the chart was reviewed. Patient reported having bowel movement yesterday, no reports of any melena or bright red blood per rectum. Reports some abdominal pain but improved. Denies shortness of breath or chest pain. Objective - Vital Signs/Intake and Output Vital Signs (last 24 hours): Temp Pulse Resp BP Pulse Ox 98 F 57 L 18 133/41 L 100 01/29/17 00:01 01/29/17 06:00 01/28/17 19:20 01/28/17 18:00 01/28/17 19:20 Intake and Output: 01/29/17 01/29/17 06:59 18:59 Intake Total 680 Output Total 100 Balance 580 - Medications Medications: Current Medications Amlodipine Besylate (Norvasc) 5 mg PO DAILY [facility] Last Admin: 01/28/17 13:15 Dose: 5 mg Aspirin (Aspirin Chewable) 81 mg PO DAILY [facility] Last Admin: 01/29/17 09:29 Dose: 81 mg Atorvastatin Calcium (Lipitor) 20 mg PO DIN [facility] Last Admin: 01/28/17 17:36 Dose: 20 mg Calcium Acetate (Phoslo) 1,334 mg PO TID [facility] Last Admin: 01/29/17 09:29 Dose: 1,334 mg Carvedilol (Coreg) 25 mg PO 0800,1700 [facility] Last Admin: 01/28/17 17:36 Dose: 25 mg Clopidogrel Bisulfate (Plavix) 75 mg PO DAILY [facility] Last Admin: 01/29/17 09:29 Dose: 75 mg Doxycycline Hyclate (Doryx) 100 mg PO Q12 [facility] PRN Reason: Protocol Stop: 02/03/17 13:27 Last Admin: 01/29/17 09:29 Dose: 100 mg Fenofibrate (Tricor) 145 mg PO DAILY [facility] Last Admin: 01/29/17 09:30 Dose: 145 mg Gabapentin (Neurontin) 100 mg PO HS [facility] PRN Reason: Protocol Last Admin: 01/27/17 21:45 Dose: 100 mg Home Med (Home Med) 1 unit TOP MWF [facility] Last Admin: 01/29/17 09:32 Dose: 1 unit Cefepime HCl (Maxipime 1gm) 1 gm in 100 mls @ 100 mls/hr IVPB Q24H [facility] PRN Reason: Protocol Stop: 02/03/17 13:31 Last Admin: 01/28/17 13:11 Dose: 100 mls/hr Heparin Sodium/Dextrose (Heparin 25,000 Units/250ml In D5w) 25,000 units in 250 mls @ 7.022 mls/hr IV .Q24H [facility]; 12 UNITS/KG/HR PRN Reason: Protocol Last Admin: 01/28/17 22:35 Dose: 27.34 units/kg/hr, 16 mls/hr Insulin Human Regular (Humulin R Low) 0 units SC ACHS [facility] PRN Reason: Protocol Last Admin: 01/29/17 07:57 Dose: Not Given Isosorbide Mononitrate (Imdur Er) 30 mg PO 0600 [facility] Last Admin: 01/29/17 07:56 Dose: 30 mg Levothyroxine Sodium (Synthroid) 50 mcg PO ACB [facility] Last Admin: 01/29/17 07:56 Dose: 50 mcg Pantoprazole Sodium (Protonix Ec Tab) 20 mg PO 0600 [facility] Last Admin: 01/29/17 07:56 Dose: 20 mg - Labs Labs: 01/29/17 05:30 01/29/17 05:30 PT 12.1 Seconds (9.9-11.8) H 01/25/17 07:00 INR 1.12 (0.93-1.08) H 01/25/17 07:00 APTT 74.5 Seconds (23.7-30.8) H* 01/29/17 05:30 Assessment and Plan - Assessment and Plan (Free Text) Assessment: Assessment: Right upper quadrant pain, differentials considers peptic ulcer disease, GERD, hepatic congestion, patient status post CAT scan reporting calcified gallbladder , ultrasound was negative for gallstones. Non-ST segment IA History of gastroparesis COPD CHF End-stage renal disease on dialysis Coronary artery disease Plan: Continue PPI Continue pured diet Patient is on oral doxycycline, IV antibiotics of Maxipime On heparin drip On Plavix Monitor H&H On aspirin Seen and discussed with Dr. Theodore. <Ysabel Theodore V - Last Filed: 01/29/17 18:49> Objective - Vital Signs/Intake and Output Vital Signs (last 24 hours): Temp Pulse Resp BP Pulse Ox 97.8 F 58 L 22 182/56 H 100 01/29/17 18:00 01/29/17 18:10 01/29/17 18:10 01/29/17 18:41 01/29/17 18:10 Intake and Output: 01/29/17 01/29/17 06:59 18:59 Intake Total 680 Output Total 100 Balance 580 - Medications Medications: Current Medications Amlodipine Besylate (Norvasc) 5 mg PO DAILY [facility] Last Admin: 01/28/17 13:15 Dose: 5 mg Aspirin (Aspirin Chewable) 81 mg PO DAILY [facility] Last Admin: 01/29/17 09:29 Dose: 81 mg Atorvastatin Calcium (Lipitor) 20 mg PO DIN [facility] Last Admin: 01/29/17 18:41 Dose: 20 mg Calcium Acetate (Phoslo) 1,334 mg PO TID [facility] Last Admin: 01/29/17 18:41 Dose: 1,334 mg Carvedilol (Coreg) 25 mg PO 0800,1700 [facility] Last Admin: 01/29/17 18:41 Dose: 25 mg Clopidogrel Bisulfate (Plavix) 75 mg PO DAILY [facility] Last Admin: 01/29/17 09:29 Dose: 75 mg Doxycycline Hyclate (Doryx) 100 mg PO Q12 [facility] PRN Reason: Protocol Stop: 02/03/17 13:27 Last Admin: 01/29/17 09:29 Dose: 100 mg Fenofibrate (Tricor) 145 mg PO DAILY [facility] Last Admin: 01/29/17 09:30 Dose: 145 mg Gabapentin (Neurontin) 100 mg PO HS [facility] PRN Reason: Protocol Last Admin: 01/27/17 21:45 Dose: 100 mg Home Med (Home Med) 1 unit TOP MWF [facility] Last Admin: 01/29/17 09:32 Dose: 1 unit Cefepime HCl (Maxipime 1gm) 1 gm in 100 mls @ 100 mls/hr IVPB Q24H [facility] PRN Reason: Protocol Stop: 02/03/17 13:31 Last Admin: 01/29/17 13:39 Dose: 100 mls/hr Heparin Sodium/Dextrose (Heparin 25,000 Units/250ml In D5w) 25,000 units in 250 mls @ 7.022 mls/hr IV .Q24H [facility]; 12 UNITS/KG/HR PRN Reason: Protocol Last Admin: 01/28/17 22:35 Dose: 27.34 units/kg/hr, 16 mls/hr Metronidazole (Flagyl) 500 mg in 100 mls @ 100 mls/hr IVPB Q8H [facility] PRN Reason: Protocol Last Admin: 01/29/17 18:43 Dose: 100 mls/hr Insulin Human Regular (Humulin R Low) 0 units SC ACHS [facility] PRN Reason: Protocol Last Admin: 01/29/17 16:30 Dose: Not Given Isosorbide Mononitrate (Imdur Er) 30 mg PO 0600 [facility] Last Admin: 01/29/17 07:56 Dose: 30 mg Levothyroxine Sodium (Synthroid) 50 mcg PO ACB [facility] Last Admin: 01/29/17 07:56 Dose: 50 mcg Pantoprazole Sodium (Protonix Ec Tab) 20 mg PO 0600 [facility] Last Admin: 01/29/17 07:56 Dose: 20 mg - Labs Labs: 01/29/17 05:30 01/29/17 05:30 PT 12.1 Seconds (9.9-11.8) H 01/25/17 07:00 INR 1.12 (0.93-1.08) H 01/25/17 07:00 APTT 74.5 Seconds (23.7-30.8) H* 01/29/17 05:30 Attending/Attestation - Attestation I have personally seen and examined this patient.: Yes I have fully participated in the care of the patient.: Yes I have reviewed all pertinent clinical information, including history, physical exam and plan: Yes Notes (Text): This is an addendum to GI progress report dictated by Starr Bowers APN.The patient was seen and examined earlier. Medical records, lab studies, imagings were reviewed. Last 24 hours events reviewed. Agreed with the above treatment plan as outlined in Starr Bowers APN's notes the with the addition of the following We slightly better still has some discomfort in the epigastric and right upper quadrant area Patient is tolerating pured diet [place] sonogram revealed no stones, but the CT was reported multiple stones most likely could be calcifications History of gastroparesis History of diverticulosis and diverticulitis in the past Thank you very much for allowing us to participate in the care of the patient. We will continue to closely monitor her care and suggest further management based on the critical course 01/29/17 18:47
[2017-01-29 12:02] LABS: H INFLUENZAE B NOT REQUIRED (NEGATIVE); N MENINGITIS ACY/W135 NOT REQUIRED (NEGATIVE); N MENINGITIS B/ECOLI K1 NOT REQUIRED (NEGATIVE); STREP PNEUMONIAE NEGATIVE (NEGATIVE); STREPTOCOCCUS B NOT REQUIRED (NEGATIVE)
--- NOTE | 2017-01-29 12:05 | CP.CCUPN ---
<Micah Armenta - Last Filed: 01/29/17 14:17> CCU Subjective - Physician Review Subjective (Free Text): 01/29/17 11:45 Patient is an 81 year old female with PMH of ESRD (HD M/W/F), CHF, CAD, IDDM and COPD who was admitted to [facility] on 01/25 for chest pain and cough. Patient noted to have elevated troponin without evidence of ST segment changes on EKG. Cardiology was consulted for NSTEMI and medically managed with aspirin, plavix, beta leandro. ICU asked to re-evaluate patient due to complaints of abdominal and chest pain by primary physician. CCU Objective - Vital Signs / Intake & Output Intake and Output (Last 8hrs): Intake & Output 01/28/17 01/29/17 01/29/17 22:59 06:59 14:59 Intake Total 1162 430 Output Total 120 100 Balance 1042 330 Weight 128 lb Intake: IV 562 190 Right Forearm 312 190 Oral 600 240 Output: Urine 120 100 Urine, Voided 120 100 Other: # Bowel Movements 3 - Physical Exam Head: Positive for: Atraumatic, Normocephalic Pupils: Positive for: PERRL Extroacular Muscles: Positive for: EOMI Conjunctiva: Positive for: Normal Mouth: Positive for: Moist Mucous Membranes Pharnyx: Positive for: Normal. Negative for: ERYTHEMA, EXUDATE Neck: Positive for: Normal Range of Motion. Negative for: JVD Respiratory/Chest: Positive for: Clear to Auscultation, Decreased Breath Sounds (bilaterally). Negative for: Respiratory Distress, Accessory Muscle Use Cardiovascular: Positive for: Normal S1, S2, Other (negative hepatojugular reflex) Abdomen: Positive for: Tenderness, Normal Bowel Sounds. Negative for: Rebound, Guarding Back: Positive for: Normal Inspection. Negative for: CVA Tenderness Lower Extremity: Positive for: Normal Inspection, NORMAL PULSES Neurological: Positive for: CN II-XII Intact, Speech Normal Skin: Positive for: Warm, Dry, Normal Color Lymphatic: Negative for: Cervical Adenopathy Psychiatric: Positive for: Alert, Oriented x 3, Normal Insight, Normal Concentration - Medications Active Medications: Active Medications Generic Name Dose Route Start Last Admin Trade Name Freq PRN Reason Stop Dose Admin Amlodipine Besylate 5 mg 01/25/17 13:15 01/28/17 13:15 Norvasc PO 5 mg DAILY RUTHANN Administration Aspirin 81 mg 01/25/17 13:15 01/29/17 09:29 Aspirin Chewable PO 81 mg DAILY RUTHANN Administration Atorvastatin Calcium 20 mg 01/25/17 17:00 01/28/17 17:36 Lipitor PO 20 mg DIN RUTHANN Administration Calcium Acetate 1,334 mg 01/25/17 14:00 01/29/17 09:29 Phoslo PO 1,334 mg TID RUTHANN Administration Carvedilol 25 mg 01/25/17 17:00 01/28/17 17:36 Coreg PO 25 mg 0800,1700 RUTHANN Administration Clopidogrel Bisulfate 75 mg 01/26/17 10:30 01/29/17 09:29 Plavix PO 75 mg DAILY RUTHANN Administration Doxycycline Hyclate 100 mg 01/25/17 13:26 01/29/17 09:29 Doryx PO 02/03/17 13:27 100 mg Q12 RUTHANN Administration Protocol Fenofibrate 145 mg 01/26/17 10:00 01/29/17 09:30 Tricor PO 145 mg DAILY RUTHANN Administration Gabapentin 100 mg 01/25/17 22:00 01/27/17 21:45 Neurontin PO 100 mg HS RUTHANN Administration Protocol Home Med 1 unit 01/26/17 10:00 01/29/17 09:32 Home Med TOP 1 unit MWF RUTHANN Administration Cefepime HCl 1 gm in 100 mls @ 100 mls/hr 01/25/17 13:30 01/28/17 13:11 Maxipime 1gm IVPB 02/03/17 13:31 100 mls/hr Q24H RUTHANN Administration Protocol Heparin Sodium/Dextrose 25,000 units in 250 mls @ 7.022 mls/hr 01/26/17 07:45 01/28/17 22:35 Heparin 25,000 Units/250ml In D5w IV 27.34 units/kg/hr .Q24H RUTHANN 16 mls/hr Protocol Administration 12 UNITS/KG/HR Insulin Human Regular 0 units 01/25/17 16:30 01/29/17 07:57 Humulin R Low SC Not Given ACHS [facility] Protocol Isosorbide Mononitrate 30 mg 01/26/17 06:00 01/29/17 07:56 Imdur Er PO 30 mg 0600 RUTHANN Administration Levothyroxine Sodium 50 mcg 01/26/17 07:30 01/29/17 07:56 Synthroid PO 50 mcg ACB RUTHANN Administration Pantoprazole Sodium 20 mg 01/27/17 06:00 01/29/17 07:56 Protonix Ec Tab PO 20 mg 0600 RUTHANN Administration - Patient Studies Lab Studies: Lab Studies 01/29/17 01/29/17 01/29/17 Range/Units 11:15 05:30 05:30 WBC 7.1 D (4.5-11.0) 10^3/ul RBC 2.80 L (3.5-6.1) 10^6/uL Hgb 8.8 L (12.0-16.0) g/dL Hct 27.3 L (36.0-48.0) % MCV 97.5 (80.0-105.0) fl MCH 31.4 (25.0-35.0) pg MCHC 32.2 (31.0-37.0) g/dl RDW 15.8 H (11.5-14.5) % Plt Count 126 (120.0-450.0) 10^3/uL MPV 8.6 (7.0-11.0) fl Gran % 68.8 H (50.0-68.0) % Lymph % (Auto) 23.9 (22.0-35.0) % [place] % (Auto) 6.6 H (1.0-6.0) % Eos % (Auto) 0.6 L (1.5-5.0) % Baso % (Auto) 0.1 (0.0-3.0) % Gran # 4.91 (1.4-6.5) Lymph # 1.7 (1.2-3.4) [place] # 0.5 (0.1-0.6) Eos # 0.0 (0.0-0.7) Baso # 0.01 (0.0-2.0) K/mm3 APTT 74.5 H* (23.7-30.8) Seconds Sodium (132-148) mmol/L Potassium (3.6-5.0) mmol/L Chloride (98-107) mmol/L Carbon Dioxide (21-33) mmol/L Anion Gap (10-20) BUN (7-21) mg/dL Creatinine (0.7-1.2) mg/dL Est GFR ( Amer) Est GFR (Non-Af Amer) POC Glucose (mg/dL) (65-110) mg/dL Random Glucose (70-110) mg/dL Lactic Acid 1.1 (0.7-2.1) mmol/L Calcium (8.4-10.5) mg/dL Total Bilirubin (0.2-1.3) mg/dL AST (14-36) U/L ALT (7-56) U/L Alkaline Phosphatase (38-126) U/L Total Protein (5.8-8.3) g/dL Albumin (3.0-4.8) g/dL Globulin gm/dL Albumin/Globulin Ratio (1.1-1.8) Amylase (35-125) U/L Lipase (23-300) U/L 01/29/17 01/28/17 01/28/17 Range/Units 05:30 22:05 18:30 WBC (4.5-11.0) 10^3/ul RBC (3.5-6.1) 10^6/uL Hgb (12.0-16.0) g/dL Hct (36.0-48.0) % MCV (80.0-105.0) fl MCH (25.0-35.0) pg MCHC (31.0-37.0) g/dl RDW (11.5-14.5) % Plt Count (120.0-450.0) 10^3/uL MPV (7.0-11.0) fl Gran % (50.0-68.0) % Lymph % (Auto) (22.0-35.0) % [place] % (Auto) (1.0-6.0) % Eos % (Auto) (1.5-5.0) % Baso % (Auto) (0.0-3.0) % Gran # (1.4-6.5) Lymph # (1.2-3.4) [place] # (0.1-0.6) Eos # (0.0-0.7) Baso # (0.0-2.0) K/mm3 APTT 58.5 H (23.7-30.8) Seconds Sodium 128 L (132-148) mmol/L Potassium 6.0 H* D (3.6-5.0) mmol/L Chloride 89 L (98-107) mmol/L Carbon Dioxide 23 (21-33) mmol/L Anion Gap 22 H (10-20) BUN 77 H (7-21) mg/dL Creatinine 6.9 H (0.7-1.2) mg/dL Est GFR ( Amer) 7 Est GFR (Non-Af Amer) 6 POC Glucose (mg/dL) 168 H (65-110) mg/dL Random Glucose 128 H (70-110) mg/dL Lactic Acid (0.7-2.1) mmol/L Calcium 8.4 (8.4-10.5) mg/dL Total Bilirubin 0.6 (0.2-1.3) mg/dL AST 44 H D (14-36) U/L ALT 21 (7-56) U/L Alkaline Phosphatase 74 (38-126) U/L Total Protein 7.4 (5.8-8.3) g/dL Albumin 3.6 (3.0-4.8) g/dL Globulin 3.8 gm/dL Albumin/Globulin Ratio 0.9 L (1.1-1.8) Amylase 63 (35-125) U/L Lipase 107 (23-300) U/L 01/28/17 01/28/17 01/28/17 Range/Units 16:26 12:33 11:20 WBC (4.5-11.0) 10^3/ul RBC (3.5-6.1) 10^6/uL Hgb (12.0-16.0) g/dL Hct (36.0-48.0) % MCV (80.0-105.0) fl MCH (25.0-35.0) pg MCHC (31.0-37.0) g/dl RDW (11.5-14.5) % Plt Count (120.0-450.0) 10^3/uL MPV (7.0-11.0) fl Gran % (50.0-68.0) % Lymph % (Auto) (22.0-35.0) % [place] % (Auto) (1.0-6.0) % Eos % (Auto) (1.5-5.0) % Baso % (Auto) (0.0-3.0) % Gran # (1.4-6.5) Lymph # (1.2-3.4) [place] # (0.1-0.6) Eos # (0.0-0.7) Baso # (0.0-2.0) K/mm3 APTT 61.8 H 109.5 H* (23.7-30.8) Seconds Sodium (132-148) mmol/L Potassium (3.6-5.0) mmol/L Chloride (98-107) mmol/L Carbon Dioxide (21-33) mmol/L Anion Gap (10-20) BUN (7-21) mg/dL Creatinine (0.7-1.2) mg/dL Est GFR ( Amer) Est GFR (Non-Af Amer) POC Glucose (mg/dL) 131 H (65-110) mg/dL Random Glucose (70-110) mg/dL Lactic Acid (0.7-2.1) mmol/L Calcium (8.4-10.5) mg/dL Total Bilirubin (0.2-1.3) mg/dL AST (14-36) U/L ALT (7-56) U/L Alkaline Phosphatase (38-126) U/L Total Protein (5.8-8.3) g/dL Albumin (3.0-4.8) g/dL Globulin gm/dL Albumin/Globulin Ratio (1.1-1.8) Amylase (35-125) U/L Lipase (23-300) U/L Laboratory Results - last 24 hr 01/28/17 01/28/17 01/28/17 11:20 12:33 16:26 WBC RBC Hgb Hct MCV MCH MCHC RDW Plt Count MPV Gran % Lymph % (Auto) [place] % (Auto) Eos % (Auto) Baso % (Auto) Gran # Lymph # [place] # Eos # Baso # APTT 109.5 H* 61.8 H Sodium Potassium Chloride Carbon Dioxide Anion Gap BUN Creatinine Est GFR ( Amer) Est GFR (Non-Af Amer) POC Glucose (mg/dL) 131 H Random Glucose Lactic Acid Calcium Total Bilirubin AST ALT Alkaline Phosphatase Total Protein Albumin Globulin Albumin/Globulin Ratio Amylase Lipase 01/28/17 01/28/17 01/29/17 18:30 22:05 05:30 WBC RBC Hgb Hct MCV MCH MCHC RDW Plt Count MPV Gran % Lymph % (Auto) [place] % (Auto) Eos % (Auto) Baso % (Auto) Gran # Lymph # [place] # Eos # Baso # APTT 58.5 H Sodium 128 L Potassium 6.0 H* D Chloride 89 L Carbon Dioxide 23 Anion Gap 22 H BUN 77 H Creatinine 6.9 H Est GFR ( Amer) 7 Est GFR (Non-Af Amer) 6 POC Glucose (mg/dL) 168 H Random Glucose 128 H Lactic Acid Calcium 8.4 Total Bilirubin 0.6 AST 44 H D ALT 21 Alkaline Phosphatase 74 Total Protein 7.4 Albumin 3.6 Globulin 3.8 Albumin/Globulin Ratio 0.9 L Amylase 63 Lipase 107 01/29/17 01/29/17 01/29/17 05:30 05:30 11:15 WBC 7.1 D RBC 2.80 L Hgb 8.8 L Hct 27.3 L MCV 97.5 MCH 31.4 MCHC 32.2 RDW 15.8 H Plt Count 126 MPV 8.6 Gran % 68.8 H Lymph % (Auto) 23.9 [place] % (Auto) 6.6 H Eos % (Auto) 0.6 L Baso % (Auto) 0.1 Gran # 4.91 Lymph # 1.7 [place] # 0.5 Eos # 0.0 Baso # 0.01 APTT 74.5 H* Sodium Potassium Chloride Carbon Dioxide Anion Gap BUN Creatinine Est GFR ( Amer) Est GFR (Non-Af Amer) POC Glucose (mg/dL) Random Glucose Lactic Acid 1.1 Calcium Total Bilirubin AST ALT Alkaline Phosphatase Total Protein Albumin Globulin Albumin/Globulin Ratio Amylase Lipase EKG/Cardiology Studies: Cardiology / EKG Studies 01/29/17 10:35 EKG [ELECTROCARDIOGRAM] Stat Comment: Reason For Exam: chest pain Fingerstick Blood Sugar Results: 113 Critical Care Progress Note - Nutrition Nutrition: Nutrition Category Date Time Status Renal Diet [DIET] Diets 01/25/17 Lunch Ordered Assessment/Plan - Assessment and Plan (Free Text) Assessment: patient is an 81 year old female with PMH of ESRD (HD M/W/F), CHF, CAD, IDDM and COPD who was admitted for NSTEMI in the setting of possible CHF exacerbation who was initally medically managed in ICU and transferred to [facility]. Patient continues to express shob and abdominal discomfort and is being evaluated for potential cardiac origin vs. gastric. Plan: Neuro: AAO to self, place, not year maintain normothermia Pulm: Supportive O2 as needed, currently stable on 2LNC with SaO2> goal of 90% CXR- no signs of acute process, no evidence of pleural effusion or infiltrate CVS: NSTEMI - Troponin on admission were elevated and has since trended down, peak of 5.70 - EKG showing sinus tachycardia and poor R wave progression, LVH - ASA, Plavix, statin, BB, Tricor - ECHO shows EF 53%, normal LV size and function with moderate AV stenosis, mild MR and TR, no evidence of effusion - Cardiology consulted and following, recs as follows: continue current meds of asa, plavix, protonix, synthroid and tricor - Chest pain reported will order CXR, EKG, trend tropoins and continue medical management - Maintain MAP >65 GI: Abdominal discomfort - Ab US showing cholelithiasis and probable sludge balls, fatty hepatic infiltration, echogenic kidneys consistent with underlying renal disease, small left renal cyst upper pole left kidney - Order CT abdomen for further investigation - GI consulted and following Stable, Renal Diet, Zofran prn nausea GI ppx with protonix Renal: ESRD on HD M// - HD planned for today may aid in electrolyte balance Abd US showing small left renal cyst upper pole left kidney Monitor electrolytes, manage and replace as necessary Maintain euglycemia, conservative fluid management in setting of CHF Endo: IDDM - Human Regular ISS low - Gabapentin Hypothryoid - Continue hypothyroid medications Heme: Hemoglobin stable at 8.8 DVT ppx: currently covered by heparin gtt ID: Sepsis on admission possible HCAP - resolved Blood culture negative, CXR clear, No leukocytosis ID consulted and following with recs for continuing cefepime and doxycycline day 08/20 GI and DVT ppx reviewed Case reviewed and discussed with attending - Date & Time Date: 01/29/17 Time: 12:07 <Joe Seo - Last Filed: 01/29/17 18:52> CCU Objective - Vital Signs / Intake & Output Vital Signs (Last 4 hours): Vital Signs Temp Pulse Resp BP Pulse Ox 01/29/17 18:41 182/56 H 01/29/17 18:10 58 L 22 100 01/29/17 18:09 56 L 27 H 172/55 H 100 01/29/17 18:00 97.8 F 55 L 32 H 171/40 H 100 01/29/17 17:50 55 L 24 100 01/29/17 17:45 55 L 20 176/40 H 100 01/29/17 17:40 56 L 17 100 01/29/17 17:30 54 L 32 H 170/53 H 100 01/29/17 17:20 57 L 32 H 100 01/29/17 17:15 58 L 36 H 168/52 H 100 01/29/17 17:10 60 27 H 100 01/29/17 17:00 61 25 H 172/59 H 100 01/29/17 16:50 59 L 33 H 100 01/29/17 16:45 60 168/61 H 100 01/29/17 16:40 59 L 25 H 100 01/29/17 16:30 57 L 17 153/38 H 100 01/29/17 16:20 57 L 15 100 01/29/17 16:15 55 L 16 165/49 H 100 01/29/17 16:13 55 L 48 H 165/50 H 100 01/29/17 16:10 55 L 17 100 01/29/17 16:00 54 L 16 157/44 H 100 01/29/17 15:50 55 L 17 100 01/29/17 15:45 54 L 19 150/44 L 100 01/29/17 15:40 81 18 100 01/29/17 15:30 80 19 148/56 L 100 01/29/17 15:27 76 19 159/66 H 100 01/29/17 15:20 76 20 100 01/29/17 15:15 78 34 H 154/61 H 100 01/29/17 15:11 59 L 23 146/59 L 100 01/29/17 15:10 60 33 H 100 01/29/17 15:00 65 40 H 148/58 L 100 01/29/17 14:57 62 36 H 139/57 L 100 01/29/17 14:56 61 28 H Intake and Output (Last 8hrs): Intake & Output 01/29/17 01/29/17 01/29/17 06:59 14:59 22:59 Intake Total 430 Output Total 100 Balance 330 Weight 128 lb Intake: IV 190 Right Forearm 190 Oral 240 Output: Urine 100 Urine, Voided 100 Other: # Bowel Movements 3 - Medications Active Medications: Active Medications Generic Name Dose Route Start Last Admin Trade Name Freq PRN Reason Stop Dose Admin Amlodipine Besylate 5 mg 01/25/17 13:15 01/28/17 13:15 Norvasc PO 5 mg DAILY RUTHANN Administration Aspirin 81 mg 01/25/17 13:15 01/29/17 09:29 Aspirin Chewable PO 81 mg DAILY RUTHANN Administration Atorvastatin Calcium 20 mg 01/25/17 17:00 01/29/17 18:41 Lipitor PO 20 mg DIN RUTHANN Administration Calcium Acetate 1,334 mg 01/25/17 14:00 01/29/17 18:41 Phoslo PO 1,334 mg TID RUTHANN Administration Carvedilol 25 mg 01/25/17 17:00 01/29/17 18:41 Coreg PO 25 mg 0800,1700 RUTHANN Administration Clopidogrel Bisulfate 75 mg 01/26/17 10:30 01/29/17 09:29 Plavix PO 75 mg DAILY RUTHANN Administration Doxycycline Hyclate 100 mg 01/25/17 13:26 01/29/17 09:29 Doryx PO 02/03/17 13:27 100 mg Q12 RUTHANN Administration Protocol Fenofibrate 145 mg 01/26/17 10:00 01/29/17 09:30 Tricor PO 145 mg DAILY RUTHANN Administration Gabapentin 100 mg 01/25/17 22:00 01/27/17 21:45 Neurontin PO 100 mg HS RUTHANN Administration Protocol Home Med 1 unit 01/26/17 10:00 01/29/17 09:32 Home Med TOP 1 unit MWF RUTHANN Administration Cefepime HCl 1 gm in 100 mls @ 100 mls/hr 01/25/17 13:30 01/29/17 13:39 Maxipime 1gm IVPB 02/03/17 13:31 100 mls/hr Q24H RUTHANN Administration Protocol Heparin Sodium/Dextrose 25,000 units in 250 mls @ 7.022 mls/hr 01/26/17 07:45 01/28/17 22:35 Heparin 25,000 Units/250ml In D5w IV 27.34 units/kg/hr .Q24H RUTHANN 16 mls/hr Protocol Administration 12 UNITS/KG/HR Metronidazole 500 mg in 100 mls @ 100 mls/hr 01/29/17 18:15 01/29/17 18:43 Flagyl IVPB 100 mls/hr Q8H RUTHANN Administration Protocol Insulin Human Regular 0 units 01/25/17 16:30 01/29/17 16:30 Humulin R Low SC Not Given ACHS RUTHANN Protocol Isosorbide Mononitrate 30 mg 01/26/17 06:00 01/29/17 07:56 Imdur Er PO 30 mg 0600 RUTHANN Administration Levothyroxine Sodium 50 mcg 01/26/17 07:30 01/29/17 07:56 Synthroid PO 50 mcg ACB RUTHANN Administration Pantoprazole Sodium 20 mg 01/27/17 06:00 01/29/17 07:56 Protonix Ec Tab PO 20 mg 0600 RUTHANN Administration - Patient Studies Lab Studies: Lab Studies 01/29/17 01/29/17 01/29/17 Range/Units 11:15 11:15 05:30 WBC (4.5-11.0) 10^3/ul RBC (3.5-6.1) 10^6/uL Hgb (12.0-16.0) g/dL Hct (36.0-48.0) % MCV (80.0-105.0) fl MCH (25.0-35.0) pg MCHC (31.0-37.0) g/dl RDW (11.5-14.5) % Plt Count (120.0-450.0) 10^3/uL MPV (7.0-11.0) fl Gran % (50.0-68.0) % Lymph % (Auto) (22.0-35.0) % [place] % (Auto) (1.0-6.0) % Eos % (Auto) (1.5-5.0) % Baso % (Auto) (0.0-3.0) % Gran # (1.4-6.5) Lymph # (1.2-3.4) [place] # (0.1-0.6) Eos # (0.0-0.7) Baso # (0.0-2.0) K/mm3 APTT 74.5 H* (23.7-30.8) Seconds Sodium (132-148) mmol/L Potassium (3.6-5.0) mmol/L Chloride (98-107) mmol/L Carbon Dioxide (21-33) mmol/L Anion Gap (10-20) BUN (7-21) mg/dL Creatinine (0.7-1.2) mg/dL Est GFR ( Amer) Est GFR (Non-Af Amer) POC Glucose (mg/dL) (65-110) mg/dL Random Glucose (70-110) mg/dL Lactic Acid 1.1 (0.7-2.1) mmol/L Calcium (8.4-10.5) mg/dL Total Bilirubin (0.2-1.3) mg/dL AST (14-36) U/L ALT (7-56) U/L Alkaline Phosphatase (38-126) U/L Troponin I 1.19 H* D ng/mL Total Protein (5.8-8.3) g/dL Albumin (3.0-4.8) g/dL Globulin gm/dL Albumin/Globulin Ratio (1.1-1.8) Amylase (35-125) U/L Lipase (23-300) U/L H.influenzae Type B Ag (NEGATIVE) N.meningitidis ACY/W135 (NEGATIVE) N.meningi B/E.coli K1 Ag (NEGATIVE) Group B Strep Antigen (NEGATIVE) S. pneumoniae Antigen (NEGATIVE) 01/29/17 01/29/17 01/28/17 Range/Units 05:30 05:30 22:05 WBC 7.1 D (4.5-11.0) 10^3/ul RBC 2.80 L (3.5-6.1) 10^6/uL Hgb 8.8 L (12.0-16.0) g/dL Hct 27.3 L (36.0-48.0) % MCV 97.5 (80.0-105.0) fl MCH 31.4 (25.0-35.0) pg MCHC 32.2 (31.0-37.0) g/dl RDW 15.8 H (11.5-14.5) % Plt Count 126 (120.0-450.0) 10^3/uL MPV 8.6 (7.0-11.0) fl Gran % 68.8 H (50.0-68.0) % Lymph % (Auto) 23.9 (22.0-35.0) % [place] % (Auto) 6.6 H (1.0-6.0) % Eos % (Auto) 0.6 L (1.5-5.0) % Baso % (Auto) 0.1 (0.0-3.0) % Gran # 4.91 (1.4-6.5) Lymph # 1.7 (1.2-3.4) [place] # 0.5 (0.1-0.6) Eos # 0.0 (0.0-0.7) Baso # 0.01 (0.0-2.0) K/mm3 APTT (23.7-30.8) Seconds Sodium 128 L (132-148) mmol/L Potassium 6.0 H* D (3.6-5.0) mmol/L Chloride 89 L (98-107) mmol/L Carbon Dioxide 23 (21-33) mmol/L Anion Gap 22 H (10-20) BUN 77 H (7-21) mg/dL Creatinine 6.9 H (0.7-1.2) mg/dL Est GFR ( Amer) 7 Est GFR (Non-Af Amer) 6 POC Glucose (mg/dL) 168 H (65-110) mg/dL Random Glucose 128 H (70-110) mg/dL Lactic Acid (0.7-2.1) mmol/L Calcium 8.4 (8.4-10.5) mg/dL Total Bilirubin 0.6 (0.2-1.3) mg/dL AST 44 H D (14-36) U/L ALT 21 (7-56) U/L Alkaline Phosphatase 74 (38-126) U/L Troponin I ng/mL Total Protein 7.4 (5.8-8.3) g/dL Albumin 3.6 (3.0-4.8) g/dL Globulin 3.8 gm/dL Albumin/Globulin Ratio 0.9 L (1.1-1.8) Amylase 63 (35-125) U/L Lipase 107 (23-300) U/L H.influenzae Type B Ag (NEGATIVE) N.meningitidis ACY/W135 (NEGATIVE) N.meningi B/E.coli K1 Ag (NEGATIVE) Group B Strep Antigen (NEGATIVE) S. pneumoniae Antigen (NEGATIVE) 01/28/17 01/26/17 Range/Units 18:30 20:00 WBC (4.5-11.0) 10^3/ul RBC (3.5-6.1) 10^6/uL Hgb (12.0-16.0) g/dL Hct (36.0-48.0) % MCV (80.0-105.0) fl MCH (25.0-35.0) pg MCHC (31.0-37.0) g/dl RDW (11.5-14.5) % Plt Count (120.0-450.0) 10^3/uL MPV (7.0-11.0) fl Gran % (50.0-68.0) % Lymph % (Auto) (22.0-35.0) % [place] % (Auto) (1.0-6.0) % Eos % (Auto) (1.5-5.0) % Baso % (Auto) (0.0-3.0) % Gran # (1.4-6.5) Lymph # (1.2-3.4) [place] # (0.1-0.6) Eos # (0.0-0.7) Baso # (0.0-2.0) K/mm3 APTT 58.5 H (23.7-30.8) Seconds Sodium (132-148) mmol/L Potassium (3.6-5.0) mmol/L Chloride (98-107) mmol/L Carbon Dioxide (21-33) mmol/L Anion Gap (10-20) BUN (7-21) mg/dL Creatinine (0.7-1.2) mg/dL Est GFR ( Amer) Est GFR (Non-Af Amer) POC Glucose (mg/dL) (65-110) mg/dL Random Glucose (70-110) mg/dL Lactic Acid (0.7-2.1) mmol/L Calcium (8.4-10.5) mg/dL Total Bilirubin (0.2-1.3) mg/dL AST (14-36) U/L ALT (7-56) U/L Alkaline Phosphatase (38-126) U/L Troponin I ng/mL Total Protein (5.8-8.3) g/dL Albumin (3.0-4.8) g/dL Globulin gm/dL Albumin/Globulin Ratio (1.1-1.8) Amylase (35-125) U/L Lipase (23-300) U/L H.influenzae Type B Ag Not required (NEGATIVE) N.meningitidis ACY/W135 Not required (NEGATIVE) N.meningi B/E.coli K1 Ag Not required (NEGATIVE) Group B Strep Antigen Not required (NEGATIVE) S. pneumoniae Antigen Negative (NEGATIVE) Laboratory Results - last 24 hr 01/26/17 01/28/17 01/28/17 20:00 18:30 22:05 WBC RBC Hgb Hct MCV MCH MCHC RDW Plt Count MPV Gran % Lymph % (Auto) [place] % (Auto) Eos % (Auto) Baso % (Auto) Gran # Lymph # [place] # Eos # Baso # APTT 58.5 H Sodium Potassium Chloride Carbon Dioxide Anion Gap BUN Creatinine Est GFR ( Amer) Est GFR (Non-Af Amer) POC Glucose (mg/dL) 168 H Random Glucose Lactic Acid Calcium Total Bilirubin AST ALT Alkaline Phosphatase Troponin I Total Protein Albumin Globulin Albumin/Globulin Ratio Amylase Lipase H.influenzae Type B Ag Not required N.meningitidis [id number]/W135 Not required N.meningi B/E.coli K1 Ag Not required Group B Strep Antigen Not required S. pneumoniae Antigen Negative 01/29/17 01/29/17 01/29/17 05:30 05:30 05:30 WBC 7.1 D RBC 2.80 L Hgb 8.8 L Hct 27.3 L MCV 97.5 MCH 31.4 MCHC 32.2 RDW 15.8 H Plt Count 126 MPV 8.6 Gran % 68.8 H Lymph % (Auto) 23.9 [place] % (Auto) 6.6 H Eos % (Auto) 0.6 L Baso % (Auto) 0.1 Gran # 4.91 Lymph # 1.7 [place] # 0.5 Eos # 0.0 Baso # 0.01 APTT 74.5 H* Sodium 128 L Potassium 6.0 H* D Chloride 89 L Carbon Dioxide 23 Anion Gap 22 H BUN 77 H Creatinine 6.9 H Est GFR ( Amer) 7 Est GFR (Non-Af Amer) 6 POC Glucose (mg/dL) Random Glucose 128 H Lactic Acid Calcium 8.4 Total Bilirubin 0.6 AST 44 H D ALT 21 Alkaline Phosphatase 74 Troponin I Total Protein 7.4 Albumin 3.6 Globulin 3.8 Albumin/Globulin Ratio 0.9 L Amylase 63 Lipase 107 H.influenzae Type B Ag N.meningitidis [id number]/W135 N.meningi B/E.coli K1 Ag Group B Strep Antigen S. pneumoniae Antigen 01/29/17 01/29/17 11:15 11:15 WBC RBC Hgb Hct MCV MCH MCHC RDW Plt Count MPV Gran % Lymph % (Auto) [place] % (Auto) Eos % (Auto) Baso % (Auto) Gran # Lymph # [place] # Eos # Baso # APTT Sodium Potassium Chloride Carbon Dioxide Anion Gap BUN Creatinine Est GFR ( Amer) Est GFR (Non-Af Amer) POC Glucose (mg/dL) Random Glucose Lactic Acid 1.1 Calcium Total Bilirubin AST ALT Alkaline Phosphatase Troponin I 1.19 H* D Total Protein Albumin Globulin Albumin/Globulin Ratio Amylase Lipase H.influenzae Type B Ag N.meningitidis [id number]/W135 N.meningi B/E.coli K1 Ag Group B Strep Antigen S. pneumoniae Antigen EKG/Cardiology Studies: Cardiology / EKG Studies 01/29/17 10:35 EKG [ELECTROCARDIOGRAM] Stat Comment: Reason For Exam: chest pain 01/29/17 12:31 EKG [ELECTROCARDIOGRAM] Stat Comment: Reason For Exam: chest pain Critical Care Progress Note - Nutrition Nutrition: Nutrition Category Date Time Status Renal Diet [DIET] Diets 01/25/17 Lunch Ordered Attending/Attestation - Attestation I have personally seen and examined this patient.: Yes I have fully participated in the care of the patient.: Yes I have reviewed all pertinent clinical information: Yes Notes (Text): 01/29/17 18:49 81 yo with ESRD/HD, NSTEMI, now with mild abdominal pain. EKG--no overt specific ischemic changes,troponin is trending down, CT abdo/pelvis--acute diverticulitis, added flagyl, continued cefepime, ID on board. tolerated HD well , abdo pain resolved, eating dinner, chating doing ok. Continue tele monitoring ccm time 40 min
[2017-01-29] MEDS: Cefepime 1gm in NS 100ml 1 GM/100 ML BAG IVPB SCH (13:39)
--- NOTE | 2017-01-29 15:17 | CT ---
PROCEDURE: CT Abdomen and Pelvis without intravenous contrast HISTORY: abdominal pain COMPARISON: None. TECHNIQUE: Without contrast.. Contrast Dose: Radiation dose: Total exam DLP = 594 mGy-cm. This CT exam was performed using one or more of the following dose reduction techniques: Automated exposure control, adjustment of the mA and/or kV according to patient size, and/or use of iterative reconstruction technique. FINDINGS: LOWER THORAX: Small bilateral pleural effusions LIVER: Unremarkable. No gross lesion or ductal dilatation. GALLBLADDER AND BILE DUCTS: Small gallstones. Mural thickening in the gallbladder. Possible cholecystitis PANCREAS: Unremarkable. No gross lesion or ductal dilatation. SPLEEN: Unremarkable. ADRENALS: Unremarkable. No mass. KIDNEYS AND URETERS: There is atrophy of both kidneys VASCULATURE: Unremarkable. No aortic aneurysm. BOWEL: There is severe diverticulosis of the sigmoid colon with mural thickening and multiple diverticula. There is minimal mesenteric stranding adjacent to the descending colon is consistent with mild acute diverticulitis APPENDIX: Unremarkable. Normal appendix. PERITONEUM: Unremarkable. No free fluid. No free air. LYMPH NODES: Unremarkable. No enlarged lymph nodes. BLADDER: Unremarkable. REPRODUCTIVE: Unremarkable. BONES: No acute fracture. OTHER FINDINGS: None. IMPRESSION: There is severe diverticulosis of the sigmoid colon with mural thickening and multiple diverticula. There is minimal mesenteric stranding adjacent to the descending colon that is consistent with mild acute diverticulitis Small gallstones. Mild thickening of the gallbladder wall, possible cholecystitis
[2017-01-29] MEDS ORDERED: metroNIDAZOLE IV 500 mg/100 ml 500 MG/100 ML BAG IVPB SCH ×2 (18:15)
--- NOTE | 2017-01-29 19:51 | CARD ---
APPROVED REPORT EKG Measurement Heart [id number] <Conclusion> Sinus rhythm with First degree AV Block a run of junctional tachycardia Nonspecific ST and T wave abnormality, probably digitalis effect Abnormal ECG
[2017-01-29] MEDS: Heparin 25,000units in D5W 25,000 UNITS/250 ML BAG IV SCH (20:30)
--- NOTE | 2017-01-29 21:40 | PN ---
DATE: 01/29/2017 SUBJECTIVE: The patient is seen in the ICU. Events of last 24 hours are noted. The patient was transferred out of the ICU, she was . Subsequently, the patient started complaining of epigastric pain, dizziness, some chest pressure, and headache. The patient was reevaluated by the ICU. Concern is being that her epigastric pain was an angina equivalent. Currently, she is receiving dialysis. She is lying in bed. She appears in distress. She is complaining of dizziness. She is complaining of epigastric pain. She reports she is not feeling well. PHYSICAL EXAMINATION: GENERAL: Elderly, thinly built lady lying in bed. VITAL SIGNS: Blood pressure 133/41, heart rate 57, respiratory rate 18 to 20, temperature 97.2. HEENT: Normocephalic, atraumatic, positive pallor. NECK: Supple, no JVD. LUNGS: Bilateral equal air entry, bilateral rhonchi, basilar rales, left greater than right. CARDIAC: S1 and S2, regular rate and rhythm. No murmur, no rub. ABDOMEN: Soft, some tenderness in the epigastrium, bowel sounds present. EXTREMITIES: No lower extremity edema. INTAKE AND OUTPUT: 1592/220. LABORATORY DATA: WBC 7.1, hemoglobin 8.8, hematocrit 27 and platelets 126. Sodium 128, potassium 6.0, chloride 89, CO2 of 23, BUN 77, creatinine 6.9, glucose 128, calcium 8.4, AST 44, ALT 21, troponin 1.1, albumin 3.6. CURRENT MEDICATIONS: Aspirin, Coreg, doxycycline, heparin at 16 mL per hour, Imdur 30, insulin, Lipitor, cefepime 1 g daily, gabapentin, amlodipine 5, PhosLo, Protonix, Plavix, Synthroid, and TriCor. DIAGNOSTICS: CT of the abdomen: Severe diverticulosis of the sigmoid colon with mural thickening and multiple diverticula, minimal mesenteric stranding adjacent to the descending colon, small gallstones, mild thickening of the gallbladder wall, possible cholecystitis. ASSESSMENT: 1. Severe hyperkalemia. 2. Gsu-CI-akzcqvomn myocardial infarction/acute coronary syndrome. 3. Pulmonary edema. 4. Severe anemia. 5. Nex-aykhhbr-gquxhrgac diabetes mellitus. 6. Hypertension. 7. End-stage renal disease. 8. Underlying coronary artery disease. 9. Diverticulosis,?cholecystitis. PLAN: 1. Dialysis today, potassium 1 bath for 1 hour and 2 baths for rest of the time. 2. Continue aspirin, Plavix, heparin, beta-leandro, statin. 3. Continue empiric antibiotics. 4. Appreciate GI recommendations. 5. Case is discussed with ICU resident, ICU nurses, dialysis nurse at length. 6. Case is discussed with the patient at bedside. More than 35 minutes was spent in the care of this critically ill patient. Barbi Linares MD
[2017-01-30] MEDS: Pantoprazole 20 mg EC Tab PO SCH (05:15)
[2017-01-30] MEDS: metroNIDAZOLE IV 500 mg/100 ml 500 MG/100 ML BAG IVPB SCH ×3 (05:15→21:53)
[2017-01-30 06:26] LABS: EOS % 0.7 % (1.5-5.0); GRAN # 4.04 (1.4-6.5); GRAN % 71.4 % (50.0-68.0); HEMATOCRIT 26.7 % (36.0-48.0); LYMPH # 1.1 (1.2-3.4); LYMPH % 19.8 % (22.0-35.0); MEAN CELL VOLUME 98.9 fl (80.0-105.0); MEAN CORPUSCULAR HEMOGLOBIN 31.5 pg (25.0-35.0); MEAN CORPUSCULAR HGB CONC 31.8 g/dl (31.0-37.0); MEAN PLATELET VOLUME 9.1 fl (7.0-11.0); MONO # 0.5 (0.1-0.6); MONO % 8.1 % (1.0-6.0); RED CELL DISTRIBUTION WIDTH 16.3 % (11.5-14.5); WHITE BLOOD COUNT 5.7 10^3/ul (4.5-11.0)
[2017-01-30 06:45] LABS: ALB/GLOB RATIO 0.9 (1.1-1.8); BILIRUBIN,TOTAL 0.7 mg/dL (0.2-1.3); CALCIUM 8.4 mg/dL (8.4-10.5); POTASSIUM 4.4 mmol/L (3.6-5.0); TOTAL PROTEIN 7.4 g/dL (5.8-8.3)
[2017-01-30 07:26] LABS: INR 1.25 (0.93-1.08)
[2017-01-30 07:29] LABS: PARTIAL THROMBOPLASTIN TIME 109.8 Seconds (23.7-30.8)
--- NOTE | 2017-01-30 07:34 | CP.PCM.PN ---
Subjective - Date & Time of Evaluation Date of Evaluation: 01/30/17 Time of Evaluation: 07:00 - Subjective Subjective: Stable in CCU. Events of yesterday noted. I spoke with Dr. Ascencio and Dr. Seo. Still int abd pain. S/P HD yesterday. V/S noted. RSR/S. Brenton PE: Lungs: clear Cor.: S1S2, sys. murmur Abd.: soft Ext>: no edema Neuro.: alert Labs noted: H/H 8.5/27.3 today. Trop yesterday 1.19. BC x2 NG at 4 days CXR 01/29: clear lungs. NAD Echo: Nl LV fx, LVH, mod. MR ECG: S. brenton with 1st degree AVB. Improved repolarization changes CT A+P: extensive diverticular disease, possible diverticulitis, Gall stones, possible cholecystitis Objective - Vital Signs/Intake and Output Vital Signs (last 24 hours): Temp Pulse Resp BP Pulse Ox 98.2 F 58 L 20 182/56 H 96 01/30/17 05:37 01/30/17 05:37 01/30/17 05:37 01/29/17 18:41 01/30/17 05:37 Intake and Output: 01/30/17 01/30/17 06:59 18:59 Intake Total 420 Balance 420 - Medications Medications: Current Medications Amlodipine Besylate (Norvasc) 5 mg PO DAILY [facility] Last Admin: 01/29/17 10:43 Dose: Not Given Aspirin (Aspirin Chewable) 81 mg PO DAILY [facility] Last Admin: 01/29/17 09:29 Dose: 81 mg Atorvastatin Calcium (Lipitor) 20 mg PO DIN [facility] Last Admin: 01/29/17 18:41 Dose: 20 mg Calcium Acetate (Phoslo) 1,334 mg PO TID [facility] Last Admin: 01/29/17 18:41 Dose: 1,334 mg Carvedilol (Coreg) 25 mg PO 0800,1700 [facility] Last Admin: 01/29/17 18:41 Dose: 25 mg Clopidogrel Bisulfate (Plavix) 75 mg PO DAILY [facility] Last Admin: 01/29/17 09:29 Dose: 75 mg Doxycycline Hyclate (Doryx) 100 mg PO Q12 [facility] PRN Reason: Protocol Stop: 02/03/17 13:27 Last Admin: 01/29/17 21:35 Dose: 100 mg Fenofibrate (Tricor) 145 mg PO DAILY [facility] Last Admin: 01/29/17 09:30 Dose: 145 mg Gabapentin (Neurontin) 100 mg PO HS [facility] PRN Reason: Protocol Last Admin: 01/29/17 21:34 Dose: 100 mg Home Med (Home Med) 1 unit TOP MWF [facility] Last Admin: 01/29/17 09:32 Dose: 1 unit Cefepime HCl (Maxipime 1gm) 1 gm in 100 mls @ 100 mls/hr IVPB Q24H [facility] PRN Reason: Protocol Stop: 02/03/17 13:31 Last Admin: 01/29/17 13:39 Dose: 100 mls/hr Heparin Sodium/Dextrose (Heparin 25,000 Units/250ml In D5w) 25,000 units in 250 mls @ 7.022 mls/hr IV .Q24H [facility]; 12 UNITS/KG/HR PRN Reason: Protocol Last Admin: 01/29/17 20:30 Dose: 27.34 units/kg/hr, 16 mls/hr Metronidazole (Flagyl) 500 mg in 100 mls @ 100 mls/hr IVPB Q8 [facility] PRN Reason: Protocol Last Admin: 01/30/17 05:15 Dose: 100 mls/hr Insulin Human Regular (Humulin R Low) 0 units SC ACHS [facility] PRN Reason: Protocol Last Admin: 01/29/17 22:28 Dose: Not Given Isosorbide Mononitrate (Imdur Er) 30 mg PO 0600 [facility] Last Admin: 01/30/17 05:14 Dose: 30 mg Levothyroxine Sodium (Synthroid) 50 mcg PO ACB [facility] Last Admin: 01/29/17 07:56 Dose: 50 mcg Pantoprazole Sodium (Protonix Ec Tab) 20 mg PO 0600 [facility] Last Admin: 01/30/17 05:15 Dose: 20 mg - Labs Labs: 01/30/17 05:20 01/30/17 05:20 PT 12.1 Seconds (9.9-11.8) H 01/25/17 07:00 INR 1.12 (0.93-1.08) H 01/25/17 07:00 APTT 74.5 Seconds (23.7-30.8) H* 01/29/17 05:30 Assessment and Plan - Assessment and Plan (Free Text) Assessment: CP/SOB initially + trop, possible NSTEMI but echo shows continue NL LV fx Abd. Pain: R/O diverticulitis, Gall Stones R/O cholecystitis CKD/HD HBP MR, moderate Diabetes HLD H/O Diverticulitis Anemia CVD/Carotid Stent GIB/Angiodysplasias PN Colonic Polyps Hypothyroidism Plan: As per GI As per Renal As per Dr. Ascencio and Intensivists Continue cardiac meds. Increase isosorbide to 30 BID. Continue heparin for now. Conservative cardiac care anticipated. Tel bed. Monitor: Stools for OB, labs, PTT's, I/O, sats., etc.
[2017-01-30] MEDS: Insulin Reg-LOW-Coverage SC SCH ×4 (08:32→21:52)
[2017-01-30] MEDS: Levothyroxine 50 MCG TAB PO SCH (08:49)
--- NOTE | 2017-01-30 09:57 | PN ---
DATE: 01/29/2017 SUBJECTIVE: This is an 81-year-old female sitting in bed in the Coronary Care Unit. The patient is sitting and states that she is having some mild shortness of breath and chest discomfort. PHYSICAL EXAMINATION: VITAL SIGNS: Her blood pressure was 170/40, her pulse was 56, her temp was 98. She is alert and oriented x3. NECK: Supple. LUNGS: Show diminished breath sounds. HEART: Has regular S1 and S2 rhythm. ABDOMEN: Soft, scaphoid. Positive bowel sounds. EXTREMITIES: No evidence of edema. Discussion was held with the patient biller. The patient was made the unit patient and transfer to telemetry was discontinued. She is status post non-ST [place], being treated for status post systemic inflammatory response syndrome with "sepsis" in the emergency room on admission. LABORATORY DATA: WBC is 7.1, RBC is 2.8, hemoglobin 8.8, hematocrit 27.3 and platelet count is 126. Chemistry showed a troponin of 1.19. Her blood sugar was 164. Sodium was 128, potassium was 6, chloride 89, BUN 77, creatinine 6.9. The patient was scheduled for dialysis. An EKG was performed, which was reported by the patient biller show after discussion with the relocation services specialist sinus rhythm. Chest x-ray was performed, which showed mild vascular congestion. A CAT scan of the abdomen and pelvis was performed, which suggested changes consistent with acute diverticulitis of the sigmoid colon and possible cholecystitis. The patient will remain in the Coronary Care Unit at this time. Continue her antibiotics as per infectious disease. Continue to be monitored by Coronary Care Unit staff on IV heparin followed by cardiology. She has been placed on Imdur and Flagyl in addition to her prior medications. The patient will be required to monitor closely. Shavonne Ascencio MD
--- NOTE | 2017-01-30 10:43 | CP.PCM.PN ---
Subjective - Date & Time of Evaluation Date of Evaluation: 01/30/17 Time of Evaluation: 10:10 - Subjective Subjective: Comfortable, has some abdominal discomfort, no fevers overnight, breathing a little better, less cough today. Objective - Vital Signs/Intake and Output Vital Signs (last 24 hours): Temp Pulse Resp BP Pulse Ox 98.2 F 58 L 20 182/56 H 96 01/30/17 05:37 01/30/17 05:37 01/30/17 05:37 01/29/17 18:41 01/30/17 05:37 Intake and Output: 01/30/17 01/30/17 06:59 18:59 Intake Total 420 Balance 420 - Medications Medications: Current Medications Amlodipine Besylate (Norvasc) 5 mg PO DAILY [facility] Last Admin: 01/29/17 10:43 Dose: Not Given Aspirin (Aspirin Chewable) 81 mg PO DAILY [facility] Last Admin: 01/29/17 09:29 Dose: 81 mg Atorvastatin Calcium (Lipitor) 20 mg PO DIN [facility] Last Admin: 01/29/17 18:41 Dose: 20 mg Calcium Acetate (Phoslo) 1,334 mg PO TID [facility] Last Admin: 01/29/17 18:41 Dose: 1,334 mg Carvedilol (Coreg) 25 mg PO 0800,1700 [facility] Last Admin: 01/29/17 18:41 Dose: 25 mg Clopidogrel Bisulfate (Plavix) 75 mg PO DAILY [facility] Last Admin: 01/29/17 09:29 Dose: 75 mg Doxycycline Hyclate (Doryx) 100 mg PO Q12 [facility] PRN Reason: Protocol Stop: 02/03/17 13:27 Last Admin: 01/29/17 21:35 Dose: 100 mg Fenofibrate (Tricor) 145 mg PO DAILY [facility] Last Admin: 01/29/17 09:30 Dose: 145 mg Gabapentin (Neurontin) 100 mg PO HS [facility] PRN Reason: Protocol Last Admin: 01/29/17 21:34 Dose: 100 mg Home Med (Home Med) 1 unit TOP MWF [facility] Last Admin: 01/29/17 09:32 Dose: 1 unit Cefepime HCl (Maxipime 1gm) 1 gm in 100 mls @ 100 mls/hr IVPB Q24H [facility] PRN Reason: Protocol Stop: 02/03/17 13:31 Last Admin: 01/29/17 13:39 Dose: 100 mls/hr Heparin Sodium/Dextrose (Heparin 25,000 Units/250ml In D5w) 25,000 units in 250 mls @ 7.022 mls/hr IV .Q24H [facility]; 12 UNITS/KG/HR PRN Reason: Protocol Last Admin: 01/29/17 20:30 Dose: 27.34 units/kg/hr, 16 mls/hr Metronidazole (Flagyl) 500 mg in 100 mls @ 100 mls/hr IVPB Q8 [facility] PRN Reason: Protocol Last Admin: 01/30/17 05:15 Dose: 100 mls/hr Insulin Human Regular (Humulin R Low) 0 units SC ACHS [facility] PRN Reason: Protocol Last Admin: 01/29/17 22:28 Dose: Not Given Isosorbide Mononitrate (Imdur Er) 30 mg PO 0600 [facility] Last Admin: 01/30/17 05:14 Dose: 30 mg Levothyroxine Sodium (Synthroid) 50 mcg PO ACB [facility] Last Admin: 01/29/17 07:56 Dose: 50 mcg Pantoprazole Sodium (Protonix Ec Tab) 20 mg PO 0600 [facility] Last Admin: 01/30/17 05:15 Dose: 20 mg - Labs Labs: 01/30/17 05:20 01/30/17 05:20 PT 12.1 Seconds (9.9-11.8) H 01/25/17 07:00 INR 1.12 (0.93-1.08) H 01/25/17 07:00 APTT 74.5 Seconds (23.7-30.8) H* 01/29/17 05:30 - Constitutional Appears: Chronically Ill - Head Exam Head Exam: NORMAL INSPECTION - ENT Exam ENT Exam: Mucous Membranes Moist - Neck Exam Neck Exam: absent: Lymphadenopathy, Meningismus - Respiratory Exam Respiratory Exam: Decreased Breath Sounds - Cardiovascular Exam Cardiovascular Exam: +S1, +S2 - GI/Abdominal Exam GI & Abdominal Exam: Soft. absent: Tenderness Assessment and Plan - Assessment and Plan (Free Text) Plan: Assessment Systemic Inflammatory Response Syndrome, consider due to acute NSTEMI, and sepsis due to acute descending colon diverticulitis and bilateral lobe healthcare-associated pneumonia history of healthcare-associated pneumonia (right upper lobe, bilateral lower lobes) HTN DM CAD with chronic CHF ESRD on HD Plan Continue Cefepime and Doxycycline day 6, and added Flagyl; PCT was elevated on admission at 1.3 but patient has chronic renal failure reviewed CXR today which shows pulmonary vascular congestion and bilateral pleural effusions - cannot rule out infiltrates reviewed CT scan of the abdomen and pelvis which showed the diverticulitis cultures have been negative will continue to monitor clinically discussed with Dr. Ascencio
--- NOTE | 2017-01-30 10:59 | CP.PCM.PN ---
<Starr Bowers - Last Filed: 01/30/17 10:58> Subjective - Date & Time of Evaluation Date of Evaluation: 01/30/17 Time of Evaluation: 09:30 - Subjective Subjective: Seen and examined at bedside earlier this morning, the patient complains of abdominal discomfort mostly in the right upper quadrant and slow esophageal quadrant, occasional nausea and postprandial pain, no acute distress. Denies fever, chills, shortness of breath or chest pain.patient has CT scan yesterday, which reported mild acute diverticulitis, the patient was started on Flagyl yesterday. Objective - Vital Signs/Intake and Output Vital Signs (last 24 hours): Temp Pulse Resp BP Pulse Ox 98.2 F 56 L 20 109/26 L 96 01/30/17 05:37 01/30/17 09:13 01/30/17 05:37 01/30/17 09:13 01/30/17 05:37 Intake and Output: 01/30/17 01/30/17 06:59 18:59 Intake Total 420 209.0 Balance 420 209.0 - Medications Medications: Current Medications Amlodipine Besylate (Norvasc) 5 mg PO DAILY [facility] Last Admin: 01/30/17 09:13 Dose: 5 mg Aspirin (Aspirin Chewable) 81 mg PO DAILY [facility] Last Admin: 01/30/17 09:12 Dose: 81 mg Atorvastatin Calcium (Lipitor) 20 mg PO DIN [facility] Last Admin: 01/29/17 18:41 Dose: 20 mg Calcium Acetate (Phoslo) 1,334 mg PO TID [facility] Last Admin: 01/30/17 09:13 Dose: 1,334 mg Carvedilol (Coreg) 25 mg PO 0800,1700 [facility] Last Admin: 01/30/17 08:49 Dose: 25 mg Clopidogrel Bisulfate (Plavix) 75 mg PO DAILY [facility] Last Admin: 01/30/17 09:13 Dose: 75 mg Doxycycline Hyclate (Doryx) 100 mg PO Q12 [facility] PRN Reason: Protocol Stop: 02/03/17 13:27 Last Admin: 01/30/17 09:13 Dose: 100 mg Fenofibrate (Tricor) 145 mg PO DAILY [facility] Last Admin: 01/30/17 09:13 Dose: 145 mg Gabapentin (Neurontin) 100 mg PO HS [facility] PRN Reason: Protocol Last Admin: 01/29/17 21:34 Dose: 100 mg Home Med (Home Med) 1 unit TOP MWF [facility] Last Admin: 01/29/17 09:32 Dose: 1 unit Cefepime HCl (Maxipime 1gm) 1 gm in 100 mls @ 100 mls/hr IVPB Q24H [facility] PRN Reason: Protocol Stop: 02/03/17 13:31 Last Admin: 01/29/17 13:39 Dose: 100 mls/hr Heparin Sodium/Dextrose (Heparin 25,000 Units/250ml In D5w) 25,000 units in 250 mls @ 7.022 mls/hr IV .Q24H [facility]; 12 UNITS/KG/HR PRN Reason: Protocol Last Titration: 01/30/17 08:42 Dose: 25 units/kg/hr, 14.628 mls/hr Metronidazole (Flagyl) 500 mg in 100 mls @ 100 mls/hr IVPB Q8 [facility] PRN Reason: Protocol Last Admin: 01/30/17 05:15 Dose: 100 mls/hr Insulin Human Regular (Humulin R Low) 0 units SC ACHS [facility] PRN Reason: Protocol Last Admin: 01/30/17 08:32 Dose: Not Given Isosorbide Mononitrate (Imdur Er) 30 mg PO BID [facility] Last Admin: 01/30/17 09:13 Dose: 30 mg Levothyroxine Sodium (Synthroid) 50 mcg PO ACB [facility] Last Admin: 01/30/17 08:49 Dose: 50 mcg Pantoprazole Sodium (Protonix Ec Tab) 20 mg PO 0600 [facility] Last Admin: 01/30/17 05:15 Dose: 20 mg - Labs Labs: 01/30/17 05:20 01/30/17 05:20 PT 13.5 Seconds (9.9-11.8) H 01/30/17 06:10 INR 1.25 (0.93-1.08) H 01/30/17 06:10 APTT 109.8 Seconds (23.7-30.8) H* 01/30/17 06:10 - Constitutional Appears: No Acute Distress - Head Exam Head Exam: NORMOCEPHALIC - Eye Exam Eye Exam: Normal appearance. absent: Scleral icterus - ENT Exam ENT Exam: Mucous Membranes Moist - Neck Exam Neck Exam: Normal Inspection - Respiratory Exam Respiratory Exam: Decreased Breath Sounds, NORMAL BREATHING PATTERN. absent: Respiratory Distress - Cardiovascular Exam Cardiovascular Exam: +S1, +S2 - GI/Abdominal Exam GI & Abdominal Exam: Soft, Tenderness (right upper quadrant tenderness, no rebound guarding, and left lower quadrant tenderness.), Normal Bowel Sounds. absent: Guarding, Organomegaly, Rebound - Extremities Exam Extremities Exam: Normal Capillary Refill. absent: Calf Tenderness, Pedal Edema - Neurological Exam Neurological Exam: Alert, Awake, Oriented x3 Assessment and Plan - Assessment and Plan (Free Text) Assessment: Assessment: Right upper quadrant pain, differentials considers peptic ulcer disease, GERD, hepatic congestion, patient status post CAT scan reporting calcified gallbladder , ultrasound was negative for gallstones. Mild acute diverticulitis, patient had repeat CT yesterday Non-ST segment OR History of gastroparesis COPD CHF End-stage renal disease on dialysis Coronary artery disease Plan: On Flagyl IV Continue PPI change diet to clear liquids for at least 24 hours, can advance as tolerated. Patient is on oral doxycycline, IV antibiotics of Maxipime On heparin drip On Plavix Monitor H&H On aspirin as per ICU team Seen and discussed with Dr. Theodore. <Ysabel Theodore V - Last Filed: 01/30/17 20:09> Objective - Vital Signs/Intake and Output Vital Signs (last 24 hours): Temp Pulse Resp BP Pulse Ox 98.3 F 56 L 18 140/50 L 96 01/30/17 18:00 01/30/17 18:00 01/30/17 18:00 01/30/17 18:00 01/30/17 05:37 Intake and Output: 01/30/17 01/31/17 18:59 06:59 Intake Total 250.0 Balance 250.0 - Medications Medications: Current Medications Amlodipine Besylate (Norvasc) 5 mg PO DAILY [facility] Last Admin: 01/30/17 09:13 Dose: 5 mg Aspirin (Aspirin Chewable) 81 mg PO DAILY [facility] Last Admin: 01/30/17 09:12 Dose: 81 mg Atorvastatin Calcium (Lipitor) 20 mg PO DIN [facility] Last Admin: 01/30/17 17:34 Dose: 20 mg Calcium Acetate (Phoslo) 1,334 mg PO TID [facility] Last Admin: 01/30/17 17:34 Dose: 1,334 mg Carvedilol (Coreg) 25 mg PO 0800,1700 [facility] Last Admin: 01/30/17 17:35 Dose: 25 mg Clopidogrel Bisulfate (Plavix) 75 mg PO DAILY [facility] Last Admin: 01/30/17 09:13 Dose: 75 mg Doxycycline Hyclate (Doryx) 100 mg PO Q12 [facility] PRN Reason: Protocol Stop: 02/03/17 13:27 Last Admin: 01/30/17 09:13 Dose: 100 mg Fenofibrate (Tricor) 145 mg PO DAILY [facility] Last Admin: 01/30/17 09:13 Dose: 145 mg Gabapentin (Neurontin) 100 mg PO HS [facility] PRN Reason: Protocol Last Admin: 01/29/17 21:34 Dose: 100 mg Home Med (Home Med) 1 unit TOP MWF [facility] Last Admin: 01/29/17 09:32 Dose: 1 unit Cefepime HCl (Maxipime 1gm) 1 gm in 100 mls @ 100 mls/hr IVPB Q24H [facility] PRN Reason: Protocol Stop: 02/03/17 13:31 Last Admin: 01/30/17 13:10 Dose: 100 mls/hr Heparin Sodium/Dextrose (Heparin 25,000 Units/250ml In D5w) 25,000 units in 250 mls @ 7.022 mls/hr IV .Q24H [facility]; 12 UNITS/KG/HR PRN Reason: Protocol Last Admin: 01/30/17 16:11 Dose: 25 units/kg/hr, 14.628 mls/hr Metronidazole (Flagyl) 500 mg in 100 mls @ 100 mls/hr IVPB Q8 [facility] PRN Reason: Protocol Last Admin: 01/30/17 16:21 Dose: 100 mls/hr Insulin Human Regular (Humulin R Low) 0 units SC ACHS [facility] PRN Reason: Protocol Last Admin: 01/30/17 16:27 Dose: Not Given Isosorbide Mononitrate (Imdur Er) 30 mg PO BID [facility] Last Admin: 01/30/17 17:35 Dose: 30 mg Levothyroxine Sodium (Synthroid) 50 mcg PO ACB [facility] Last Admin: 01/30/17 08:49 Dose: 50 mcg Pantoprazole Sodium (Protonix Ec Tab) 20 mg PO 0600 [facility] Last Admin: 01/30/17 05:15 Dose: 20 mg - Labs Labs: 01/30/17 05:20 01/30/17 05:20 PT 13.5 Seconds (9.9-11.8) H 01/30/17 06:10 INR 1.25 (0.93-1.08) H 01/30/17 06:10 APTT 63.4 Seconds (23.7-30.8) H 01/30/17 14:30 Attending/Attestation - Attestation I have personally seen and examined this patient.: Yes I have fully participated in the care of the patient.: Yes I have reviewed all pertinent clinical information, including history, physical exam and plan: Yes Notes (Text): This is an addendum to GI progress report dictated by Starr Bowers APN.The patient was seen and examined earlier. Medical records, lab studies, imagings were reviewed. Last 24 hours events reviewed. Agreed with the above treatment plan as outlined in Starr Bowers APN's notes the with the addition of the following The CT scan was reviewed On examination today patient has only minimal tenderness in the left lower quadrant area. Patient does have a chronic thickening in sigmoid and diverticulosis. See upper recurrent colitis diverticulitis. Physical examination also revealed hepatomegaly which is tender. The liver is clearly palpable and tender.The most likely cause for her right upper quadrant pain now appears to be this congestive liver due to episode distention We will discuss with the cardiology and PCP 01/30/17 20:07
[2017-01-30] MEDS: Cefepime 1gm in NS 100ml 1 GM/100 ML BAG IVPB SCH (13:10)
--- NOTE | 2017-01-30 14:58 | PN ---
DATE: 01/30/2017 SUBJECTIVE: The patient has no complaints of any chest pain. She states she does have epigastric pain at times. She states that her breathing is okay. She has no headache. She states she gets dizziness at times. Creatinine is 4.3, hemoglobin 8.5. PHYSICAL EXAMINATION GENERAL: The patient is sitting in bed, comfortable, and in no acute distress. HEENT: Anicteric sclerae. Moist mucosa. NECK: No JVD, anterior and posterior adenopathy, thyromegaly, or bruits. CARDIOVASCULAR: S1 and S2 regular. No murmur, rubs, or gallop. LUNGS: Clear to auscultation bilaterally. No wheezes, bilateral rales, or rhonchi. ABDOMEN: Bowel sounds are positive. Soft, nontender and nondistended. No rebound and no guarding SKIN: No erythema or nodules SPINE: Shows normal curvature. EXTREMITIES. In lower extremities there is 1+ edema. ASSESSMENT: 1. Non-ST elevation myocardial infarction. 2. Diabetes type 2. 3. Mitral regurgitation. 4. Hyperlipidemia. 5. Hypothyroidism. 6. End-stage renal disease, on hemodialysis. 7. Sepsis. PLAN: The patient is currently comfortable, is on aspirin. She is going to continue both antibiotics of doxycycline and Flagyl. The patient is going to continue with cefepime for antibiotics. She is going to be on Lipitor for dyslipidemia. She is on calcium acetate for the secondary hyperparathyroidism. The patient is on Plavix daily. She is going to continue with Synthroid for hypothyroidism and TriCor for dyslipidemia. She is waiting to be transferred to telemetry. She will need physical therapy. This has been ordered as well. The patient did have dialysis. She has rales, but she is only mildly symptomatic with exertion. Gallo Grant MD MELANIE
[2017-01-30] MEDS: Heparin 25,000units in D5W 25,000 UNITS/250 ML BAG IV SCH (16:11)
[2017-01-30] MEDS ORDERED: Darbepoetin Alfa 60 mcg/ml Inj IVP ONE (17:00)
--- NOTE | 2017-01-30 22:20 | CARD ---
APPROVED REPORT EKG Measurement Heart [id number] <Conclusion> Sinus bradycardia with 1st degree AV block Incomplete left bundle branch block Abnormal QRS-T angle, consider primary T wave abnormality Abnormal ECG
[2017-01-31] MEDS: Pantoprazole 20 mg EC Tab PO SCH (05:59)
[2017-01-31] MEDS ORDERED: Darbepoetin Alfa 60 mcg/ml Inj IV ONE (06:00)
[2017-01-31] MEDS: metroNIDAZOLE IV 500 mg/100 ml 500 MG/100 ML BAG IVPB SCH ×3 (06:04→21:16)
[2017-01-31] MEDS: Insulin Reg-LOW-Coverage SC SCH ×4 (07:47→22:03)
--- NOTE | 2017-01-31 08:09 | PN ---
DATE: 01/30/2017 SUBJECTIVE: The patient is currently seen lying supine in bed on Telemetry. She was transferred out of the unit earlier today. She appears to be in no acute distress but she is complaining of some moderate discomfort of her right upper quadrant. The patient remains on IV antibiotic therapy for possible cholecystitis and possible diverticulitis. She is scheduled for dialysis again tomorrow. MEDICATIONS: Medication list reviewed. The patient is currently on aspirin, Coreg, Doryx, Flagyl, Cipro, IV heparin, AneCream. sliding scale insulin, Imdur, Lipitor, Maxipime, Neurontin, Norvasc, PhosLo, Plavix, Protonix, Synthroid, and Tricor. OBJECTIVE: INTAKE/OUTPUT: Intake 1482, output 0, urine plus hemodialysis. VITAL SIGNS: Blood pressure 109/26, pulse of 84, temperature 98.1, respiratory rate is 20. Pulse ox is 96%. HEENT: Exam shows to be normocephalic, atraumatic. Conjunctivae are pale. Sclerae are nonicteric. NECK: Supple. No neck vein distention. CHEST: Clear to auscultation and percussion. No rales, no rhonchi or wheezing. CARDIOVASCULAR: Shows an S1, S2 which are normal. MR/TR. Distal lower extremity pulses are 1-2+ bilaterally. The patient has a working AV fistula, left upper extremity. Positive thrill. Positive bruit. ABDOMEN: Soft. Bowel sounds normal. Mild discomfort on palpation of her right upper quadrant. No tenderness on palpation of her left lower quadrant. EXTREMITIES: Show no lower extremity edema. IMAGING: Abdominal CT scan showed possible diverticulitis and possible cholecystitis with small gallstones. Repeat chest x-ray shows no acute pulmonary disease. Initial chest x-ray showed pulmonary vascular congestion. LABORATORY DATA: CBC: White blood cell count 5.7, hemoglobin 8.5, slightly lower with a platelet count of 127,000. Coags: PTT is 63.4, on heparin. Chemistries: Normal electrolytes. BUN 37 with a creatinine of 4.3, potassium had fallen to 4.4 post dialysis. Glucose is 130. Calcium 8.4. No phosphorus levels checked. Liver enzymes, mild elevation of AST at 61, otherwise liver enzymes are normal. Albumin is 3.4. Urine: 5-10 white blood cells per high power field. 0-2 red blood cells. 4+ protein. Urine culture: Gram-positive cocci, preventative isolation and sensitivity are pending. Blood cultures are negative. ASSESSMENT: 1. Status post non-ST elevation myocardial infarction/acute benavides syndrome associated with mild congestive heart failure with pulmonary vascular congestion. The patient has appeared to have stabilized. Her volume status is back to baseline. Troponin levels have fallen. The patient is being treated medically. She remains on IV heparin and statins. The patient also remains on beta-leandro therapy. 2. Mild acute cholecystitis and diverticulitis. The patient continues on IV antibiotic therapy in light of her fragile state. The patient is not deemed to be a surgical candidate. 3. End-stage renal disease. The patient will continue four times a week dialysis. She receives the fourth dialysis because of volume related issues and history of congestive heart failure. 4. History of hypertension. Blood pressure control is acceptable on present medical therapy. 5. History of anemia. The patient will be dosed with maximum dose of Aranesp as per protocol. Try and keep her hemoglobin in the 9-10 range in light of her coronary issue. 6. Status post hyperkalemia. We will try and dialyze the patient on a 2.0 K bath. The patient's repeat potassium level was 4.4, down from a potassium level of 6.0. PLAN: 1. Discussed with the patient in detail. She understands that she will be treated medically for her diverticulitis, cholecystitis and acute myocardial infarction. 2. Hemodialysis tomorrow as scheduled with maximization and optimization of her Aranesp dose to try and correct her anemia. 3. Continue present medications of blood pressure and present cardiac medicines. 4. History of secondary hyperparathyroidism. The patient will continue on his recent binder therapy. She is on PhosLo two tablets three times a day. I will check her phosphorus level tomorrow with dialysis. Buck Yanes MD
[2017-01-31] MEDS: Levothyroxine 50 MCG TAB PO SCH (08:47)
[2017-01-31] MEDS: Heparin 25,000units in D5W 25,000 UNITS/250 ML BAG IV SCH (08:52)
[2017-01-31 09:52] LABS: EOS % 0.2 % (1.5-5.0); GRAN # 3.31 (1.4-6.5); GRAN % 70.1 % (50.0-68.0); LYMPH % 21.2 % (22.0-35.0); MEAN CELL VOLUME 96.7 fl (80.0-105.0); MEAN CORPUSCULAR HEMOGLOBIN 32.1 pg (25.0-35.0); MEAN CORPUSCULAR HGB CONC 33.2 g/dl (31.0-37.0); MEAN PLATELET VOLUME 9.4 fl (7.0-11.0); MONO # 0.4 (0.1-0.6); MONO % 8.5 % (1.0-6.0); RED CELL DISTRIBUTION WIDTH 15.9 % (11.5-14.5); WHITE BLOOD COUNT 4.7 10^3/ul (4.5-11.0)
[2017-01-31 09:54] LABS: HEMATOCRIT 23.8 % (36.0-48.0)
[2017-01-31 10:02] LABS: ALB/GLOB RATIO 0.9 (1.1-1.8); BILIRUBIN,TOTAL 0.6 mg/dL (0.2-1.3); MAGNESIUM 1.4 mg/dL (1.7-2.2); PHOSPHOROUS 6.7 mg/dL (2.5-4.5); POTASSIUM 5.2 mmol/L (3.6-5.0)
[2017-01-31] MEDS ORDERED: Darbepoetin Alfa 100 mcg/ml Inj IVP ONE (12:38)
[2017-01-31] MEDS: Cefepime 1gm in NS 100ml 1 GM/100 ML BAG IVPB SCH (14:00)
[2017-01-31] MEDS: ANECREAM TOP SCH (14:27)
--- NOTE | 2017-01-31 16:45 | PN ---
DATE: 01/31/2017 SUBJECTIVE: The patient is seen in the dialysis unit. She is awake, she is alert. She is receiving blood. She is complaining of pain in the epigastrium. She is complaining of pain in the right upper quadrant. She denies any chest tightness. PHYSICAL EXAMINATION: GENERAL: Elderly lady lying in bed in the dialysis unit. VITAL SIGNS: Blood pressure 166/67, heart rate 68, respiratory rate 18, temperature 97.5. HEENT: Normocephalic, atraumatic. NECK: Supple, no JVD. LUNGS: Bilateral equal air entry. Bilateral equal expansion. CARDIAC: S1 and S2, regular rate and rhythm, no murmur, no rub. ABDOMEN: Soft, nondistended, nontender, bowel sounds present. EXTREMITIES: No lower extremity edema. INTAKE AND OUTPUT: Not charted. LABORATORY DATA: WBC 4.7, hemoglobin 7.9, hematocrit 24, platelets 108. Sodium 126, potassium 5.2, chloride 90, CO2 of 22, BUN 53, creatinine 5.7, glucose 180, calcium 8.0, phosphorus 6.7, magnesium 1.4, AST 43, ALT 27, and albumin 3.3. CURRENT MEDICATIONS: Aspirin, Coreg, Flagyl, heparin, insulin, Imdur, Lipitor, Neurontin, Norvasc, PhosLo, Plavix, Protonix, Synthroid, Tricor, and Zofran. ASSESSMENT: 1. Acute coronary syndrome/[id number] myocardial infarction. 2. Pulmonary edema. 3. Epigastric pain. 4. Non-insulin dependent diabetes mellitus. 5. Hypertension. 6. End-stage renal disease. 7. Severe anemia. PLAN: 1. Agree with transfusion on dialysis. 2. Stable dialysis. 3. Continue beta-leandro, aspirin, and heparin. 4. Symptomatic management. Barbi Linares MD
[2017-01-31] MEDS: Vancomycin 25 MG/ML PO SCH ×2 (17:52→22:04)
--- NOTE | 2017-01-31 18:32 | CP.PCM.PN ---
Subjective - Date & Time of Evaluation Date of Evaluation: 01/31/17 Time of Evaluation: 17:00 - Subjective Subjective: feels slightly better tolerating diet still has some discomfort in the right upper quadrant area. Denies any left lower quadrant abdominal discomfort Objective - Vital Signs/Intake and Output Vital Signs (last 24 hours): Temp Pulse Resp BP Pulse Ox 98.6 F 62 18 167/47 H 100 01/31/17 17:50 01/31/17 17:50 01/31/17 17:50 01/31/17 17:50 01/31/17 06:00 Intake and Output: 01/31/17 01/31/17 06:59 18:59 Intake Total 240 1615 Output Total 0 Balance 240 1615 - Medications Medications: Current Medications Amlodipine Besylate (Norvasc) 5 mg PO DAILY [facility] Last Admin: 01/31/17 14:27 Dose: 5 mg Aspirin (Aspirin Chewable) 81 mg PO DAILY [facility] Last Admin: 01/31/17 14:23 Dose: 81 mg Atorvastatin Calcium (Lipitor) 20 mg PO DIN [facility] Last Admin: 01/31/17 17:51 Dose: 20 mg Calcium Acetate (Phoslo) 1,334 mg PO TID [facility] Last Admin: 01/31/17 17:52 Dose: 1,334 mg Carvedilol (Coreg) 25 mg PO 0800,1700 [facility] Last Admin: 01/31/17 17:49 Dose: 25 mg Clopidogrel Bisulfate (Plavix) 75 mg PO DAILY [facility] Last Admin: 01/31/17 14:28 Dose: 75 mg Fenofibrate (Tricor) 145 mg PO DAILY [facility] Last Admin: 01/31/17 14:30 Dose: 145 mg Gabapentin (Neurontin) 100 mg PO HS [facility] PRN Reason: Protocol Last Admin: 01/30/17 21:54 Dose: 100 mg Home Med (Home Med) 1 unit TOP MWF [facility] Last Admin: 01/31/17 14:27 Dose: 1 unit Heparin Sodium/Dextrose (Heparin 25,000 Units/250ml In D5w) 25,000 units in 250 mls @ 7.022 mls/hr IV .Q24H [facility]; 12 UNITS/KG/HR PRN Reason: Protocol Last Admin: 01/31/17 08:52 Dose: 25 units/kg/hr, 14.628 mls/hr Metronidazole (Flagyl) 500 mg in 100 mls @ 100 mls/hr IVPB Q8 [facility] PRN Reason: Protocol Last Admin: 01/31/17 14:24 Dose: 100 mls/hr Insulin Human Regular (Humulin R Low) 0 units SC ACHS [facility] PRN Reason: Protocol Last Admin: 01/31/17 17:23 Dose: Not Given Isosorbide Mononitrate (Imdur Er) 30 mg PO BID [facility] Last Admin: 01/31/17 17:51 Dose: 30 mg Levothyroxine Sodium (Synthroid) 50 mcg PO ACB [facility] Last Admin: 01/31/17 08:47 Dose: 50 mcg Ondansetron HCl (Zofran Inj) 4 mg IVP Q6H PRN PRN Reason: Nausea/Vomiting Last Admin: 01/31/17 09:11 Dose: 4 mg Pantoprazole Sodium (Protonix Ec Tab) 20 mg PO 0600 [facility] Last Admin: 01/31/17 05:59 Dose: 20 mg Vancomycin HCl (Vancocin 25 Mg/Ml (Oral Use)) 250 mg PO QID [facility] PRN Reason: Protocol Last Admin: 01/31/17 17:52 Dose: 250 mg - Labs Labs: 01/31/17 09:30 01/31/17 09:30 PT 13.5 Seconds (9.9-11.8) H 01/30/17 06:10 INR 1.25 (0.93-1.08) H 01/30/17 06:10 APTT 72.6 Seconds (25.1-36.5) H* 01/31/17 16:05 - Constitutional Appears: Non-toxic, No Acute Distress - Head Exam Head Exam: ATRAUMATIC, NORMOCEPHALIC - Eye Exam Eye Exam: EOMI, PERRL - Neck Exam Neck Exam: Full ROM. absent: Lymphadenopathy - Respiratory Exam Respiratory Exam: NORMAL BREATHING PATTERN. absent: Respiratory Distress - Cardiovascular Exam Cardiovascular Exam: +S1, +S2. absent: JVD - GI/Abdominal Exam GI & Abdominal Exam: Soft, Tenderness Additional comments: hepatomegaly liver edge palpable mildly tender on deep palpation probably secondary to congestion No tenderness in the left lower quadrant area - Neurological Exam Neurological Exam: Alert, Awake, Oriented x3 Assessment and Plan - Assessment and Plan (Free Text) Assessment: patient C. difficile toxin negative and antigen positive. CT scan done before showed some thickening questionable streaking suggestive possible diverticulitis. Patient does have chronic thickening in that area even before History of C. difficile colitis in the past presently antigen positive toxin negative. The patient is still on antibiotics reasonable to start the patient on by mouth vancomycin in addition Other comorbidities include CHF COPD congestive hepatomegaly end-stage renal disease on hemodialysis systemic inflammatory response syndrome
--- NOTE | 2017-01-31 20:38 | PN ---
SUBJECTIVE: An 81-year-old female, resting in bed this morning. Nurses related that there were no particular problems during the night, although she had some mild nausea. PHYSICAL EXAMINATION VITAL SIGNS: Temperature is 97.5, blood pressure is 164/46. NECK: Supple. HEART: S1 and S2 rhythm. LUNGS: Show diminished breath sounds at the bases. ABDOMEN: Soft with positive bowel sounds. EXTREMITIES: Show no evidence of edema. LABORATORY DATA: Shows WBC of 4.7, RBC 2.46, hemoglobin 7.9, hematocrit 23.8, platelet count is 108. Chemistry shows a sodium of 126, potassium 5.2, chloride 90, BUN of 53, creatinine of 5.7. Random blood sugar is 180. AST is 43. Total bilirubin is 0.6. ASSESSMENT AND PLAN: The patient is being followed by Infectious Disease and is currently on antibiotics for an Enterococcus faecium urinary tract infection with acute diverticulitis and possible cholecystitis. She is being followed by Cardiology status post non-ST myocardial infarction. She is being offered a conservative care at this time. She is being by GI and by Renal for a chronic renal disease, on dialysis 4 times a day. Current medications consist of Ecotrin 81 mg daily, Coreg 25 mg twice a day, Flagyl 500 q. 8, heparin IV. She is on insulin fingerstick coverage, Imdur 30 mg b.i.d., Lipitor 20 mg daily, Neurontin 100 mg at bedtime for peripheral neuropathy, Norvasc 5 mg daily, PhosLo 1334 mg t.i.d., Plavix 75 mg daily, Protonix 20 mg daily, Synthroid 50 mcg daily for hypothyroid disease and TriCor 145 daily for hyperlipidemia. She is on Zofran p.r.n. She received a dose of Aranesp yesterday. Continue current management, medical management. Request Physical Therapy to see the patient and follow up the patient's labs. She has chronic kidney disease, chronic anemia, acute diverticulitis, non-ST myocardial infarction, recently treated for volume overload, urinary tract infections, she is status post code sepsis in the Emergency Room for systemic inflammatory response syndrome related to a non-ST myocardial infarction. Shavonne Ascencio MD
[2017-02-01] MEDS: Pantoprazole 20 mg EC Tab PO SCH (05:12)
[2017-02-01] MEDS: metroNIDAZOLE IV 500 mg/100 ml 500 MG/100 ML BAG IVPB SCH ×2 (05:12→14:37)
[2017-02-01 05:52] LABS: EOS % 0.2 % (1.5-5.0); GRAN # 3.04 (1.4-6.5); GRAN % 62.3 % (50.0-68.0); HEMATOCRIT 28.3 % (36.0-48.0); LYMPH # 1.4 (1.2-3.4); LYMPH % 28.3 % (22.0-35.0); MEAN CELL VOLUME 97.6 fl (80.0-105.0); MEAN CORPUSCULAR HGB CONC 31.8 g/dl (31.0-37.0); MEAN PLATELET VOLUME 9.6 fl (7.0-11.0); MONO # 0.5 (0.1-0.6); MONO % 9.2 % (1.0-6.0); WHITE BLOOD COUNT 4.9 10^3/ul (4.5-11.0)
[2017-02-01 06:13] VITALS: O2SAT 97
[2017-02-01 06:16] LABS: ALB/GLOB RATIO 0.9 (1.1-1.8); BILIRUBIN,TOTAL 0.8 mg/dL (0.2-1.3); CALCIUM 8.4 mg/dL (8.4-10.5); POTASSIUM 4.6 mmol/L (3.6-5.0); TOTAL PROTEIN 6.9 g/dL (5.8-8.3)
[2017-02-01] MEDS: Heparin 25,000units in D5W 25,000 UNITS/250 ML BAG IV SCH ×2 (06:51→08:56)
[2017-02-01] MEDS: Insulin Reg-LOW-Coverage SC SCH ×2 (08:20→11:51)
[2017-02-01] MEDS: Levothyroxine 50 MCG TAB PO SCH (08:44)
[2017-02-01] MEDS: Vancomycin 25 MG/ML PO SCH ×2 (09:07→14:38)
[2017-02-01] MEDS ORDERED: Magnesium Sulfate 2 GM in Sodium Chloride 0.9% 100 ML IVPB ONE (09:18)
[2017-02-01 09:23] LABS: MAGNESIUM 1.7 mg/dL (1.7-2.2); PHOSPHOROUS 4.6 mg/dL (2.5-4.5)
--- NOTE | 2017-02-01 09:27 | CP.PCM.PN ---
Subjective - Date & Time of Evaluation Date of Evaluation: 02/01/17 Time of Evaluation: 07:00 - Subjective Subjective: Stable on 2R. No CP or SOB. V/S noted. RSR/S. Brenton PE: Lungs: clear Cor.: S1S2, sys. murmur Abd.: soft Ext>: no edema Neuro.: alert Labs noted: H/H 9/28.3, Cr.= 3.3, K+= 4.6 BC x2 NG at 5 days. Urine + Enterococcus faecium CXR 01/29: clear lungs. NAD Echo: Nl LV fx, LVH, mod. MR ECG: S. brenton with 1st degree AVB. Improved repolarization changes CT A+P: extensive diverticular disease, possible diverticulitis, Gall stones, possible cholecystitis Objective - Vital Signs/Intake and Output Vital Signs (last 24 hours): Temp Pulse Resp BP Pulse Ox 98.1 F 57 L 18 141/49 L 97 02/01/17 06:00 02/01/17 09:06 02/01/17 06:00 02/01/17 09:06 02/01/17 06:00 Intake and Output: 02/01/17 02/01/17 06:59 18:59 Intake Total 1904 250 Balance 1904 250 - Medications Medications: Current Medications Amlodipine Besylate (Norvasc) 5 mg PO DAILY [facility] Last Admin: 02/01/17 09:06 Dose: 5 mg Aspirin (Aspirin Chewable) 81 mg PO DAILY [facility] Last Admin: 02/01/17 09:05 Dose: 81 mg Atorvastatin Calcium (Lipitor) 20 mg PO DIN [facility] Last Admin: 01/31/17 17:51 Dose: 20 mg Calcium Acetate (Phoslo) 1,334 mg PO TID [facility] Last Admin: 02/01/17 09:05 Dose: 1,334 mg Carvedilol (Coreg) 25 mg PO 0800,1700 [facility] Last Admin: 02/01/17 08:53 Dose: Not Given Clopidogrel Bisulfate (Plavix) 75 mg PO DAILY [facility] Last Admin: 02/01/17 09:05 Dose: 75 mg Fenofibrate (Tricor) 145 mg PO DAILY [facility] Last Admin: 02/01/17 09:05 Dose: 145 mg Gabapentin (Neurontin) 100 mg PO HS [facility] PRN Reason: Protocol Last Admin: 01/31/17 21:16 Dose: 100 mg Home Med (Home Med) 1 unit TOP MWF [facility] Last Admin: 01/31/17 14:27 Dose: 1 unit Heparin Sodium/Dextrose (Heparin 25,000 Units/250ml In D5w) 25,000 units in 250 mls @ 7.022 mls/hr IV .Q24H [facility]; 12 UNITS/KG/HR PRN Reason: Protocol Last Admin: 02/01/17 08:56 Dose: 20.04 units/kg/hr, 11.726 mls/hr Metronidazole (Flagyl) 500 mg in 100 mls @ 100 mls/hr IVPB Q8 [facility] PRN Reason: Protocol Last Admin: 02/01/17 05:12 Dose: 100 mls/hr Magnesium Sulfate 2 gm/ Sodium (Chloride) 104 mls @ 102 mls/hr IVPB ONCE ONE Stop: 02/01/17 10:19 Insulin Human Regular (Humulin R Low) 0 units SC ACHS [facility] PRN Reason: Protocol Last Admin: 02/01/17 08:20 Dose: Not Given Isosorbide Mononitrate (Imdur Er) 30 mg PO BID [facility] Last Admin: 02/01/17 09:05 Dose: 30 mg Levothyroxine Sodium (Synthroid) 50 mcg PO ACB [facility] Last Admin: 02/01/17 08:44 Dose: 50 mcg Ondansetron HCl (Zofran Inj) 4 mg IVP Q6H PRN PRN Reason: Nausea/Vomiting Last Admin: 01/31/17 09:11 Dose: 4 mg Pantoprazole Sodium (Protonix Ec Tab) 20 mg PO 0600 [facility] Last Admin: 02/01/17 05:12 Dose: 20 mg Vancomycin HCl (Vancocin 25 Mg/Ml (Oral Use)) 250 mg PO QID [facility] PRN Reason: Protocol Last Admin: 02/01/17 09:07 Dose: 250 mg - Labs Labs: 02/01/17 05:20 02/01/17 05:20 PT 13.5 Seconds (9.9-11.8) H 01/30/17 06:10 INR 1.25 (0.93-1.08) H 01/30/17 06:10 APTT 89.4 Seconds (25.1-36.5) H* 02/01/17 07:30 Assessment and Plan - Assessment and Plan (Free Text) Assessment: CP/SOB initially + trop, possible NSTEMI but echo shows continue NL LV fx UTI Abd. Pain: R/O diverticulitis, Gall Stones R/O cholecystitis CKD/HD HBP MR, moderate Diabetes HLD H/O Diverticulitis Anemia CVD/Carotid Stent GIB/Angiodysplasias PN Colonic Polyps Hypothyroidism Plan: As per GI As per Renal As per ID As per Dr. Ascencio. Continue cardiac meds. Continue heparin for now. Conservative cardiac care anticipated. Tel bed. OOB to chair as erik. Monitor: Stools for OB, labs, PTT's, I/O, sats., etc.
--- NOTE | 2017-02-01 12:30 | CP.PCM.PN ---
<Starr Bowers - Last Filed: 02/01/17 12:29> Subjective - Date & Time of Evaluation Date of Evaluation: 02/01/17 Time of Evaluation: 09:45 - Subjective Subjective: Seen and examined at the bedside earlier today, the patient did report some loose bowel movements, no reports of melena or bright red blood per rectum. Tolerating the clear liquid diet denies any nausea, vomiting, does report some abdominal pain but no increase in intensity. No acute overnight events reported. Objective - Vital Signs/Intake and Output Vital Signs (last 24 hours): Temp Pulse Resp BP Pulse Ox 98.1 F 57 L 18 141/49 L 97 02/01/17 06:00 02/01/17 09:06 02/01/17 06:00 02/01/17 09:06 02/01/17 06:00 Intake and Output: 02/01/17 02/01/17 06:59 18:59 Intake Total 1904 250 Balance 1904 250 - Medications Medications: Current Medications Amlodipine Besylate (Norvasc) 5 mg PO DAILY [facility] Last Admin: 02/01/17 09:06 Dose: 5 mg Aspirin (Aspirin Chewable) 81 mg PO DAILY [facility] Last Admin: 02/01/17 09:05 Dose: 81 mg Atorvastatin Calcium (Lipitor) 20 mg PO DIN [facility] Last Admin: 01/31/17 17:51 Dose: 20 mg Calcium Acetate (Phoslo) 1,334 mg PO TID [facility] Last Admin: 02/01/17 09:05 Dose: 1,334 mg Carvedilol (Coreg) 25 mg PO 0800,1700 [facility] Last Admin: 02/01/17 08:53 Dose: Not Given Clopidogrel Bisulfate (Plavix) 75 mg PO DAILY [facility] Last Admin: 02/01/17 09:05 Dose: 75 mg Fenofibrate (Tricor) 145 mg PO DAILY [facility] Last Admin: 02/01/17 09:05 Dose: 145 mg Gabapentin (Neurontin) 100 mg PO HS [facility] PRN Reason: Protocol Last Admin: 01/31/17 21:16 Dose: 100 mg Home Med (Home Med) 1 unit TOP MWF [facility] Last Admin: 01/31/17 14:27 Dose: 1 unit Heparin Sodium/Dextrose (Heparin 25,000 Units/250ml In D5w) 25,000 units in 250 mls @ 7.022 mls/hr IV .Q24H [facility]; 12 UNITS/KG/HR PRN Reason: Protocol Last Admin: 02/01/17 08:56 Dose: 20.04 units/kg/hr, 11.726 mls/hr Metronidazole (Flagyl) 500 mg in 100 mls @ 100 mls/hr IVPB Q8 [facility] PRN Reason: Protocol Last Admin: 02/01/17 05:12 Dose: 100 mls/hr Insulin Human Regular (Humulin R Low) 0 units SC ACHS [facility] PRN Reason: Protocol Last Admin: 02/01/17 11:51 Dose: Not Given Isosorbide Mononitrate (Imdur Er) 30 mg PO BID [facility] Last Admin: 02/01/17 09:05 Dose: 30 mg Levothyroxine Sodium (Synthroid) 50 mcg PO ACB [facility] Last Admin: 02/01/17 08:44 Dose: 50 mcg Ondansetron HCl (Zofran Inj) 4 mg IVP Q6H PRN PRN Reason: Nausea/Vomiting Last Admin: 01/31/17 09:11 Dose: 4 mg Pantoprazole Sodium (Protonix Ec Tab) 20 mg PO 0600 [facility] Last Admin: 02/01/17 05:12 Dose: 20 mg Vancomycin HCl (Vancocin 25 Mg/Ml (Oral Use)) 250 mg PO QID [facility] PRN Reason: Protocol Last Admin: 02/01/17 09:07 Dose: 250 mg - Labs Labs: 02/01/17 05:20 02/01/17 05:20 PT 13.5 Seconds (9.9-11.8) H 01/30/17 06:10 INR 1.25 (0.93-1.08) H 01/30/17 06:10 APTT 89.4 Seconds (25.1-36.5) H* 02/01/17 07:30 - Constitutional Appears: No Acute Distress - Head Exam Head Exam: NORMOCEPHALIC - Eye Exam Eye Exam: Normal appearance. absent: Scleral icterus - ENT Exam ENT Exam: Mucous Membranes Moist - Neck Exam Neck Exam: Normal Inspection - Respiratory Exam Respiratory Exam: NORMAL BREATHING PATTERN. absent: Respiratory Distress - Cardiovascular Exam Cardiovascular Exam: +S1, +S2 - GI/Abdominal Exam GI & Abdominal Exam: Soft, Tenderness (RUQ, no LLQ tenderness), Normal Bowel Sounds, Organomegaly (hepatomegaly noted). absent: Guarding, Rebound - Extremities Exam Extremities Exam: Normal Capillary Refill. absent: Calf Tenderness, Pedal Edema - Neurological Exam Neurological Exam: Alert, Awake, Oriented x3 - Skin Skin Exam: Dry, Warm Assessment and Plan - Assessment and Plan (Free Text) Assessment: Assessment: Cdiff colitis, antigen positive Right upper quadrant pain, differentials considers peptic ulcer disease, GERD, hepatic congestion, patient status post CAT scan reporting calcified gallbladder , ultrasound was negative for gallstones. Ct scan report possible cholecystitis , abdominal US also done prior, no pericholecytic fluid or gallstones Mild acute diverticulitis, patient had repeat CT yesterday Non-ST segment [place] History of gastroparesis COPD CHF End-stage renal disease on dialysis Coronary artery disease Plan: On Flagyl IV continue oral Vancomycin Continue PPI continue clears liquids On heparin drip On Plavix & aspirin Monitor H&H plan for TCU Discuss w/ Dr. Ascencio Seen and discussed with Dr. Theodore. <Ysabel Theodore V - Last Filed: 02/01/17 20:33> Objective - Vital Signs/Intake and Output Vital Signs (last 24 hours): Temp Pulse Resp BP Pulse Ox 98.6 F 51 L 16 140/41 L 97 02/01/17 12:00 02/01/17 12:00 02/01/17 12:00 02/01/17 12:00 02/01/17 06:00 Intake and Output: 02/01/17 02/02/17 18:59 06:59 Intake Total 490 Output Total 600 Balance -110 - Labs Labs: 02/01/17 05:20 02/01/17 05:20 PT 13.5 Seconds (9.9-11.8) H 01/30/17 06:10 INR 1.25 (0.93-1.08) H 01/30/17 06:10 APTT 49.0 Seconds (25.1-36.5) H 02/01/17 15:20 Attending/Attestation - Attestation I have personally seen and examined this patient.: Yes I have fully participated in the care of the patient.: Yes I have reviewed all pertinent clinical information, including history, physical exam and plan: Yes Notes (Text): This is an addendum to GI progress report dictated by Starr Bowers APN.The patient was seen and examined earlier. Medical records, lab studies, imagings were reviewed. Last 24 hours events reviewed. Agreed with the above treatment plan as outlined in Starr Bowers APN's notes the with the addition of the following On examination abdomen is soft hepatomegaly mild tenderness in the right upper quadrant area. C. difficile antigen positive history of C. difficile colitis before. Patient did have a small amount of bleeding per rectum before on by mouth vancomycin will continue that CT scan reviewed showed chronic changes some chronic colonic thickening of the sigmoid Discussed with Dr. Ascencio 02/01/17 20:29 02/01/17 20:32
[2017-02-01 12:39] VITALS: BP 140/41; PULSE 51; RESP 16; TEMP 98.6
--- NOTE | 2017-02-01 13:54 | CP.PCM.PN ---
Subjective - Date & Time of Evaluation Date of Evaluation: 01/31/17 Time of Evaluation: 08:35 - Subjective Subjective: Less diarrhea today, no fevers overnight, less abdominal pain. Objective - Vital Signs/Intake and Output Vital Signs (last 24 hours): Temp Pulse Resp BP Pulse Ox 97.7 F 56 L 19 135/42 L 100 01/31/17 06:00 01/31/17 06:00 01/31/17 06:00 01/31/17 06:00 01/31/17 06:00 Intake and Output: 01/31/17 01/31/17 06:59 18:59 Intake Total 240 Balance 240 - Medications Medications: Current Medications Amlodipine Besylate (Norvasc) 5 mg PO DAILY [facility] Last Admin: 01/30/17 09:13 Dose: 5 mg Aspirin (Aspirin Chewable) 81 mg PO DAILY [facility] Last Admin: 01/30/17 09:12 Dose: 81 mg Atorvastatin Calcium (Lipitor) 20 mg PO DIN [facility] Last Admin: 01/30/17 17:34 Dose: 20 mg Calcium Acetate (Phoslo) 1,334 mg PO TID [facility] Last Admin: 01/30/17 17:34 Dose: 1,334 mg Carvedilol (Coreg) 25 mg PO 0800,1700 [facility] Last Admin: 01/30/17 17:35 Dose: 25 mg Clopidogrel Bisulfate (Plavix) 75 mg PO DAILY [facility] Last Admin: 01/30/17 09:13 Dose: 75 mg Doxycycline Hyclate (Doryx) 100 mg PO Q12 [facility] PRN Reason: Protocol Stop: 02/03/17 13:27 Last Admin: 01/30/17 21:54 Dose: 100 mg Fenofibrate (Tricor) 145 mg PO DAILY [facility] Last Admin: 01/30/17 09:13 Dose: 145 mg Gabapentin (Neurontin) 100 mg PO HS [facility] PRN Reason: Protocol Last Admin: 01/30/17 21:54 Dose: 100 mg Home Med (Home Med) 1 unit TOP MWF [facility] Last Admin: 01/29/17 09:32 Dose: 1 unit Cefepime HCl (Maxipime 1gm) 1 gm in 100 mls @ 100 mls/hr IVPB Q24H [facility] PRN Reason: Protocol Stop: 02/03/17 13:31 Last Admin: 01/30/17 13:10 Dose: 100 mls/hr Heparin Sodium/Dextrose (Heparin 25,000 Units/250ml In D5w) 25,000 units in 250 mls @ 7.022 mls/hr IV .Q24H [facility]; 12 UNITS/KG/HR PRN Reason: Protocol Last Admin: 01/30/17 16:11 Dose: 25 units/kg/hr, 14.628 mls/hr Metronidazole (Flagyl) 500 mg in 100 mls @ 100 mls/hr IVPB Q8 [facility] PRN Reason: Protocol Last Admin: 01/31/17 06:04 Dose: 100 mls/hr Insulin Human Regular (Humulin R Low) 0 units SC ACHS [facility] PRN Reason: Protocol Last Admin: 01/30/17 21:52 Dose: Not Given Isosorbide Mononitrate (Imdur Er) 30 mg PO BID [facility] Last Admin: 01/30/17 17:35 Dose: 30 mg Levothyroxine Sodium (Synthroid) 50 mcg PO ACB [facility] Last Admin: 01/30/17 08:49 Dose: 50 mcg Ondansetron HCl (Zofran Inj) 4 mg IVP Q6H PRN PRN Reason: Nausea/Vomiting Last Admin: 01/30/17 23:05 Dose: 4 mg Pantoprazole Sodium (Protonix Ec Tab) 20 mg PO 0600 [facility] Last Admin: 01/31/17 05:59 Dose: 20 mg - Labs Labs: 01/30/17 05:20 01/30/17 05:20 PT 13.5 Seconds (9.9-11.8) H 01/30/17 06:10 INR 1.25 (0.93-1.08) H 01/30/17 06:10 APTT 72.1 Seconds (23.7-30.8) H* 01/30/17 20:30 - Constitutional Appears: Non-toxic, No Acute Distress, Chronically Ill - Head Exam Head Exam: NORMAL INSPECTION - Neck Exam Neck Exam: absent: Meningismus - Respiratory Exam Respiratory Exam: Decreased Breath Sounds - Cardiovascular Exam Cardiovascular Exam: +S1, +S2 - GI/Abdominal Exam GI & Abdominal Exam: Soft. absent: Tenderness Assessment and Plan - Assessment and Plan (Free Text) Plan: Assessment Systemic Inflammatory Response Syndrome, consider due to acute NSTEMI, and sepsis due to acute descending colon diverticulitis and bilateral lobe healthcare-associated pneumonia R/O c. diff. colitis E. faecium in the urine, R/O UTI history of healthcare-associated pneumonia (right upper lobe, bilateral lower lobes) HTN DM CAD with chronic CHF ESRD on HD Plan Continue Cefepime and Flagyl (Day 3 - would recommend up to 7 days of therapy) - S/P 7 days of Doxycycline; PCT was elevated on admission at 1.3 but patient has chronic renal failure; continue PO Vancomycin (day 2) reviewed CXR today which shows pulmonary vascular congestion and bilateral pleural effusions - cannot rule out infiltrates reviewed CT scan of the abdomen and pelvis which showed the diverticulitis stool C. diff. antigen is positive with some loose stools will repeat urine cx and give a dose of IV Vancomycin will continue to monitor clinically discussed with Dr. Ascencio
--- NOTE | 2017-02-02 03:32 | PN ---
DATE: 02/01/2017 SUBJECTIVE: The patient is seen lying in bed. She is awake, she is alert. She is tolerating clear liquids. She is asking for pureed food. She denies any pain. PHYSICAL EXAMINATION GENERAL: Elderly lady sitting in bed. VITAL SIGNS: Blood pressure 140/41, heart rate 51, respiratory rate 16, temperature 98.6. HEENT: Normocephalic, atraumatic. NECK: Supple, no JVD. LUNGS: Bilateral equal entry, basal rales, no rhonchi. CARDIAC: Regular rate and rhythm, no murmur, no rub. ABDOMEN: Soft, nondistended, nontender. Bowel sounds present. EXTREMITIES: No lower extremity edema. INTAKE AND OUTPUT: 490/600. LABORATORY DATA: WBC 4.9, hemoglobin 9, hematocrit 28.3, platelets 116. Sodium 136, potassium 4.9, chloride 95, CO2 of 31, BUN 23, creatinine 3.3, glucose 109, calcium 8.4, phosphorus 4.6, magnesium 1.7, AST 48, ALT 31, albumin 3.3. Urine culture, Enterococcus MEDICATIONS: List reviewed. ASSESSMENT: 1. Acute coronary syndrome/non-ST elevation myocardial infarction. 2. Pulmonary edema. 3. Diverticulitis. 4. Wnu-iaptejz-hkehyysja diabetes mellitus. 5. Hypertension. 6. End-stage renal disease. 7. Anemia. PLAN: 1. Continue beta-leandro, Plavix, aspirin, heparin, statin. 2. Continue dialysis, increase ultrafiltration as tolerated. 3. Continue Flagyl. 4. Monitor fingersticks. 5. Next dialysis tomorrow. Barbi Linares MD
--- NOTE | 2017-02-02 06:38 | DS ---
HISTORY OF PRESENT ILLNESS: An 81-year-old female, admitted to [facility] with non-ST AR, volume overload, CHF, status post code sepsis in the Emergency Room with some diverticulitis of the sigmoid colon, congestive changes of the liver with history of insulin-dependent diabetes, atherosclerotic heart disease, carotid disease, peripheral neuropathy, hyperlipidemia, chronic renal disease, on dialysis 4 times a week. PHYSICAL EXAMINATION: VITAL SIGNS: Temperature of 98.6, pulse is 60, and blood pressure 140/41. GENERAL: The patient is alert and oriented x3. NECK: Supple. There is no JVD. LUNGS: With diminished breath sounds at the bases. HEART: S1 and S2 with grade 3/6 systolic murmur. LABORATORY DATA: WBC of 4.9, RBC 2.9, hemoglobin 9, hematocrit 28.3, and platelet count 116. Chemistry shows sodium 136, potassium 4.6, chloride 95, BUN 23, creatinine is 3.3, her phosphorous is 4.6, magnesium is 1.7, and AST is 48. The patient has been on Ecotrin 81 mg daily, Coreg 25 mg b.i.d., Flagyl 500 mg daily, heparin, Humulin for insulin coverage, Imdur 30 mg b.i.d., Lipitor 20 mg daily, Neurontin 100 mg at bedtime, Norvasc 5 mg daily, PhosLo 1334 mg t.i.d., Plavix 75 mg daily, Protonix 20 mg daily, Synthroid 50 mcg daily, Tricor 145 mg daily, vancomycin, and Zofran p.r.n. The patient is being followed by Infectious Disease, GI, Cardiology, and Renal. She will be discharged from the Telemetry Unit and will go into the Transitional Care Unit to continue her antibiotics and receive her occupational and physical therapy. She is placed on vancomycin for positive Clostridium difficile antigen titer. She is noted to have systemic inflammatory response syndrome due to an acute non-ST myocardial infarction and sepsis due to acute descending colon diverticulitis with bilateral lobe healthcare-associated pneumonia. Shavonne Ascencio MD
== END 2017-02-01 15:53 | DRG 280 ==
LOC: ED 06:48 → ERH 08:14 → CCU 09:03 → 2RNO 01-30 13:31
PROVIDERS: ADMIT Internal Medicine; ATTEND Internal Medicine
DX: I21.4 Non-ST elevation (NSTEMI) myocardial infarction (principal); A41.9 Sepsis, unspecified organism; J18.9 Pneumonia, unspecified organism; I13.2 Hypertensive heart and chronic kidney disease with heart failure and with stage 5 chronic kidney disease, or end stage renal disease; E87.3 Alkalosis; K80.00 Calculus of gallbladder with acute cholecystitis without obstruction; N18.6 End stage renal disease; J44.0 Chronic obstructive pulmonary disease with (acute) lower respiratory infection; K57.32 Diverticulitis of large intestine without perforation or abscess without bleeding; A04.72 Enterocolitis due to Clostridium difficile, not specified as recurrent; N25.81 Secondary hyperparathyroidism of renal origin; N39.0 Urinary tract infection, site not specified; I50.9 Heart failure, unspecified; E11.22 Type 2 diabetes mellitus with diabetic chronic kidney disease; E11.42 Type 2 diabetes mellitus with diabetic polyneuropathy; D63.1 Anemia in chronic kidney disease; B95.2 Enterococcus as the cause of diseases classified elsewhere; E03.9 Hypothyroidism, unspecified; E11.43 Type 2 diabetes mellitus with diabetic autonomic (poly)neuropathy; E78.5 Hyperlipidemia, unspecified; E87.5 Hyperkalemia; H26.9 Unspecified cataract; I25.118 Atherosclerotic heart disease of native coronary artery with other forms of angina pectoris; I25.2 Old myocardial infarction; I48.0 Paroxysmal atrial fibrillation; I67.9 Cerebrovascular disease, unspecified; K21.9 Gastro-esophageal reflux disease without esophagitis; K27.9 Peptic ulcer, site unspecified, unspecified as acute or chronic, without hemorrhage or perforation; K31.84 Gastroparesis; K59.09 Other constipation; K64.9 Unspecified hemorrhoids; K76.1 Chronic passive congestion of liver; Y95 Nosocomial condition; Z79.02 Long term (current) use of antithrombotics/antiplatelets; Z79.4 Long term (current) use of insulin; Z79.82 Long term (current) use of aspirin; Z79.899 Other long term (current) drug therapy; Z86.010 Personal history of colon polyps; Z86.19 Personal history of other infectious and parasitic diseases; Z87.01 Personal history of pneumonia (recurrent); Z90.710 Acquired absence of both cervix and uterus; Z99.2 Dependence on renal dialysis; I34.0 Nonrheumatic mitral (valve) insufficiency

== ENCOUNTER 2017-02-01 15:57 | Inpatient (IN) | payer OTHER ==
[2017-02-01] MEDS ORDERED: Heparin 25,000units in D5W 25,000 UNITS/250 ML BAG IV SCH ×2 (16:45→17:15)
[2017-02-01] MEDS ORDERED: Vancomycin 25 MG/ML PO SCH (18:00)
[2017-02-01] MEDS: Vancomycin 25 MG/ML PO SCH ×2 (18:06→21:39)
[2017-02-01 19:39] VITALS: BMI 25.6
[2017-02-01] MEDS ORDERED: metroNIDAZOLE IV 500 mg/100 ml 500 MG/100 ML BAG IVPB SCH (22:00)
[2017-02-01] MEDS: metroNIDAZOLE IV 500 mg/100 ml 500 MG/100 ML BAG IVPB SCH (22:03)
[2017-02-01] MEDS: Insulin Reg-LOW-Coverage SC SCH (22:04)
[2017-02-02] MEDS: metroNIDAZOLE IV 500 mg/100 ml 500 MG/100 ML BAG IVPB SCH ×3 (05:19→22:40)
[2017-02-02] MEDS: Pantoprazole 20 mg EC Tab PO SCH (05:19)
[2017-02-02] MEDS: Levothyroxine 50 MCG TAB PO SCH (05:19)
[2017-02-02] MEDS: Insulin Reg-LOW-Coverage SC SCH ×4 (06:30→22:39)
[2017-02-02] MEDS ORDERED: Levothyroxine 50 MCG TAB PO SCH (07:30)
[2017-02-02 08:09] LABS: HEMATOCRIT 28.4 % (36.0-48.0); MEAN CELL VOLUME 98.3 fl (80.0-105.0); MEAN CORPUSCULAR HEMOGLOBIN 31.8 pg (25.0-35.0); MEAN CORPUSCULAR HGB CONC 32.4 g/dl (31.0-37.0); MEAN PLATELET VOLUME 9.3 fl (7.0-11.0); RED CELL DISTRIBUTION WIDTH 17.5 % (11.5-14.5); WHITE BLOOD COUNT 5.9 10^3/ul (4.5-11.0)
[2017-02-02 08:34] LABS: ALB/GLOB RATIO 0.9 (1.1-1.8); BILIRUBIN,TOTAL 0.7 mg/dL (0.2-1.3); CALCIUM 8.3 mg/dL (8.4-10.5); TOTAL PROTEIN 6.7 g/dL (5.8-8.3)
[2017-02-02] MEDS: Vancomycin 25 MG/ML PO SCH ×4 (12:12→22:39)
--- NOTE | 2017-02-02 12:22 | PN ---
DATE: SUBJECTIVE: This is an 81-year-old female transferred to the Transitional Care Unit. She is status post non-ST elevation [place], "sepsis" in the emergency room with pneumonia, volume overload, chronic renal disease, dialysis, insulin-dependent diabetes, hyperlipidemia, hypothyroid disease, C. diff infection, acute diverticulitis, passive congestion of the liver, atherosclerotic heart disease, carotid disease, and peripheral neuropathy. She is admitted to the Transitional Care Unit to continue her antibiotic regimen and to receive occupational and physical therapy. CURRENT MEDICATIONS: Consist of Ecotrin 81 mg daily, Coreg 25 mg daily, Flagyl 500 mg q. 8 hour. She is on IV heparin, insulin, fingerstick coverage, Imdur 30 mg b.i.d., Lipitor 20 mg daily, Maxipime 1 g daily, Neurontin 100 mg at bedtime, Norvasc 5 mg daily, PhosLo 1334 mg with meals, Plavix 75 mg daily, Protonix 20 mg daily, Synthroid 50 mcg daily, TriCor 145 mg daily, vancomycin 125 mg p.o. q.i.d., and Zofran 4 mg IV q. 6 hours p.r.n. for nausea. PHYSICAL EXAMINATION VITAL SIGNS: Show a temp of 98, her blood pressure is 148/48, her oxygen sat is 98%. GENERAL: She was alert. LUNGS: Rhonchi, diminished breath sounds. HEART: S1 and S2, grade 2/6 systolic murmur. ABDOMEN: Soft, scaphoid. Positive bowel sounds. EXTREMITIES: No evidence of edema. LABORATORY DATA: The patient do not have follow up labs. She is scheduled for dialysis. ASSESSMENT AND PLAN: She will be followed by Gastroenterology, Cardiology, Infectious Disease, and Renal. She is currently on a renal diet, which is liquid in nature. She was having nausea and vomiting. We will review with Gastroenterology advancement of diet plan. Shavonne Ascencio MD
[2017-02-02] MEDS ORDERED: Cefepime 1gm in NS 100ml 1 GM/100 ML BAG IVPB SCH ×2 (14:00)
--- NOTE | 2017-02-02 15:29 | CP.PCM.PN ---
<Starr Bowers - Last Filed: 02/02/17 15:30> Subjective - Date & Time of Evaluation Date of Evaluation: 02/02/17 Time of Evaluation: 13:45 - Subjective Subjective: Seen and examined at the bedside this afternoon, patient denies nausea, vomiting , shortness of breath or chest pain. Abdominal discomfort is improved. The patient reports having loose bowel movement but not as watery, reports that it appeared dark, spoke to nursing staff and the stool was dark brown. No bright red blood. Patient expresses she is hungry. Awaiting to go to dialysis. Objective - Vital Signs/Intake and Output Vital Signs (last 24 hours): Temp Pulse Resp BP Pulse Ox 98 F 57 L 18 148/48 L 98 02/02/17 06:00 02/02/17 06:00 02/02/17 06:00 02/02/17 06:00 02/02/17 06:00 Intake and Output: 02/02/17 02/02/17 06:59 18:59 Intake Total 450 Balance 450 - Medications Medications: Current Medications Amlodipine Besylate (Norvasc) 5 mg PO DAILY [facility] PRN Reason: Protocol Last Admin: 02/02/17 14:32 Dose: Not Given Aspirin (Ecotrin) 81 mg PO 0800 [facility] PRN Reason: Protocol Atorvastatin Calcium (Lipitor) 20 mg PO DIN [facility] PRN Reason: Protocol Calcium Acetate (Phoslo) 1,334 mg PO WM [facility] PRN Reason: Protocol Last Admin: 02/02/17 12:09 Dose: 1,334 mg Carvedilol (Coreg) 25 mg PO 0800,1800 [facility] PRN Reason: Protocol Last Admin: 02/02/17 14:25 Dose: Not Given Clopidogrel Bisulfate (Plavix) 75 mg PO DAILY [facility] PRN Reason: Protocol Fenofibrate (Tricor) 145 mg PO DAILY [facility] PRN Reason: Protocol Last Admin: 02/02/17 14:32 Dose: Not Given Gabapentin (Neurontin) 100 mg PO HS [facility] PRN Reason: Protocol Last Admin: 02/01/17 21:39 Dose: 100 mg Metronidazole (Flagyl) 500 mg in 100 mls @ 100 mls/hr IVPB Q8 [facility] PRN Reason: Protocol Last Admin: 02/02/17 14:26 Dose: 100 mls/hr Cefepime HCl (Maxipime 1gm) 1 gm in 100 mls @ 100 mls/hr IVPB DAILY@0600 [facility] PRN Reason: Protocol Insulin Human Regular (Humulin R Low) 0 units SC ACHS [facility] PRN Reason: Protocol Last Admin: 02/02/17 14:31 Dose: Not Given Isosorbide Mononitrate (Imdur Er) 30 mg PO 0600,1600 [facility] PRN Reason: Protocol Levothyroxine Sodium (Synthroid) 50 mcg PO 0600 [facility] Last Admin: 02/02/17 05:19 Dose: 50 mcg Ondansetron HCl (Zofran Inj) 4 mg IVP Q6H PRN; Protocol PRN Reason: Nausea/Vomiting Pantoprazole Sodium (Protonix Ec Tab) 20 mg PO 0600 [facility] PRN Reason: Protocol Last Admin: 02/02/17 05:19 Dose: 20 mg Vancomycin HCl (Vancocin 25 Mg/Ml (Oral Use)) 125 mg PO QID [facility] PRN Reason: Protocol Last Admin: 02/02/17 14:37 Dose: 125 mg - Labs Labs: 02/02/17 05:00 02/02/17 08:03 APTT 37.1 Seconds (25.1-36.5) H 02/02/17 12:30 - Constitutional Appears: No Acute Distress - Head Exam Head Exam: NORMOCEPHALIC - Eye Exam Eye Exam: Normal appearance. absent: Scleral icterus - ENT Exam ENT Exam: Mucous Membranes Moist - Neck Exam Neck Exam: Normal Inspection - Respiratory Exam Respiratory Exam: NORMAL BREATHING PATTERN. absent: Respiratory Distress - Cardiovascular Exam Cardiovascular Exam: +S1, +S2 - GI/Abdominal Exam GI & Abdominal Exam: Soft, Tenderness (mild tenderness), Normal Bowel Sounds. absent: Guarding, Rebound - Neurological Exam Neurological Exam: Alert, Awake, Oriented x3 Assessment and Plan - Assessment and Plan (Free Text) Assessment: Assessment: Cdiff colitis, antigen positive Right upper quadrant pain, differentials considers peptic ulcer disease, GERD, hepatic congestion, patient status post CAT scan reporting calcified gallbladder , ultrasound was negative for gallstones. Ct scan report possible cholecystitis , abdominal US also done prior, no pericholecytic fluid or gallstones Mild acute diverticulitis, patient had repeat CT yesterday Non-ST segment [place] History of gastroparesis COPD CHF End-stage renal disease on dialysis Coronary artery disease Plan: On Flagyl IV continue oral Vancomycin Continue PPI advance diet to soft low residual heart healthy moderate carb renal diet. On Plavix & aspirin Monitor H&H Seen and discussed with Dr. Theodore. <Ysabel Theodore V - Last Filed: 02/02/17 21:38> Objective - Vital Signs/Intake and Output Vital Signs (last 24 hours): Temp Pulse Resp BP Pulse Ox 98.4 F 71 20 185/69 H 99 02/02/17 16:00 02/02/17 20:14 02/02/17 16:00 02/02/17 20:14 02/02/17 16:00 Intake and Output: 02/02/17 02/03/17 18:59 06:59 Intake Total 360 Balance 360 - Medications Medications: Current Medications Amlodipine Besylate (Norvasc) 5 mg PO DAILY [facility] PRN Reason: Protocol Last Admin: 02/02/17 14:32 Dose: Not Given Aspirin (Ecotrin) 81 mg PO 0800 [facility] PRN Reason: Protocol Atorvastatin Calcium (Lipitor) 20 mg PO DIN [facility] PRN Reason: Protocol Last Admin: 02/02/17 20:15 Dose: 20 mg Calcium Acetate (Phoslo) 1,334 mg PO WM [facility] PRN Reason: Protocol Last Admin: 02/02/17 20:15 Dose: 1,334 mg Carvedilol (Coreg) 25 mg PO 0800,1800 [facility] PRN Reason: Protocol Last Admin: 02/02/17 20:14 Dose: 25 mg Clopidogrel Bisulfate (Plavix) 75 mg PO DAILY [facility] PRN Reason: Protocol Last Admin: 02/02/17 20:16 Dose: 75 mg Fenofibrate (Tricor) 145 mg PO DAILY [facility] PRN Reason: Protocol Last Admin: 02/02/17 14:32 Dose: Not Given Gabapentin (Neurontin) 100 mg PO HS [facility] PRN Reason: Protocol Last Admin: 02/01/17 21:39 Dose: 100 mg Metronidazole (Flagyl) 500 mg in 100 mls @ 100 mls/hr IVPB Q8 [facility] PRN Reason: Protocol Last Admin: 02/02/17 14:26 Dose: 100 mls/hr Cefepime HCl (Maxipime 1gm) 1 gm in 100 mls @ 100 mls/hr IVPB DAILY@0600 [facility] PRN Reason: Protocol Insulin Human Regular (Humulin R Low) 0 units SC ACHS [facility] PRN Reason: Protocol Last Admin: 02/02/17 21:25 Dose: Not Given Isosorbide Mononitrate (Imdur Er) 30 mg PO 0600,1600 [facility] PRN Reason: Protocol Last Admin: 02/02/17 20:15 Dose: 30 mg Levothyroxine Sodium (Synthroid) 50 mcg PO 0600 [facility] Last Admin: 02/02/17 05:19 Dose: 50 mcg Ondansetron HCl (Zofran Inj) 4 mg IVP Q6H PRN; Protocol PRN Reason: Nausea/Vomiting Pantoprazole Sodium (Protonix Ec Tab) 20 mg PO 0600 [facility] PRN Reason: Protocol Last Admin: 02/02/17 05:19 Dose: 20 mg Vancomycin HCl (Vancocin 25 Mg/Ml (Oral Use)) 125 mg PO QID [facility] PRN Reason: Protocol Last Admin: 02/02/17 20:16 Dose: 125 mg - Labs Labs: 02/02/17 05:00 02/02/17 08:03 APTT 37.1 Seconds (25.1-36.5) H 02/02/17 12:30 Attending/Attestation - Attestation I have personally seen and examined this patient.: Yes I have fully participated in the care of the patient.: Yes I have reviewed all pertinent clinical information, including history, physical exam and plan: Yes Notes (Text): p 02/02/17 21:37
--- NOTE | 2017-02-02 16:46 | CON ---
DATE OF SERVICE: 02/02/2017 CHIEF COMPLAINT: Weakness. HISTORY OF PRESENT ILLNESS: The patient is in bed #302. The patient is in no acute distress. This is an 81-year-old female with end-stage renal disease, on hemodialysis, congestive heart failure, coronary artery disease, diabetes mellitus, and chronic obstructive lung disease, was admitted in the acute side with epigastric discomfort, was found to have an acute non-ST elevation myocardial infarction and sepsis with acute diverticulitis and bilateral healthcare-associated pneumonia, has been treated now with p.o. vancomycin for possible pseudomembranous colitis, on day #5 of cefepime and Flagyl, and now transferred to Transitional Care. REVIEW OF SYSTEMS: Reveals no fever and chills. No chest pain at this time. It is on and off. No abdominal pain, diarrhea, or constipation. PAST MEDICAL HISTORY: Significant for chronic obstructive lung disease, diabetes, coronary artery disease, congestive heart failure, end-stage renal disease, on hemodialysis. PAST SURGICAL HISTORY: Significant for left hip surgery, vascular access for dialysis. ALLERGIES: CEFTRIAXONE. MEDICATIONS: Reviewed. PHYSICAL EXAMINATION: VITAL SIGNS: Temperature is 98, blood pressure is 140/60, respiratory rate of 18. HEENT: Unremarkable. NECK: Supple. LUNGS: Decreased breath sounds. HEART: Normal S1 and S2. ABDOMEN: Soft, nontender. LABORATORY DATA: Examination reveals a white count of 5.9, hemoglobin of 9, and platelets of 102. Chemistries reveal a BUN of 58, creatinine of 5.0. ASSESSMENT AND PLAN: This is an 81-year-old female with end-stage renal disease, on hemodialysis, congestive heart failure, coronary artery disease, diabetes, chronic obstructive lung disease with acute non-ST elevation myocardial infarction and sepsis with acute diverticulitis and bilateral healthcare-associated pneumonia, day #5 of cefepime and Flagyl, and day #4 of oral vancomycin. The patient's stool for Clostridium difficile on the reveals to be positive antigen but negative toxin. We will follow closely with you. Jeromy Castellanos MD
--- NOTE | 2017-02-02 20:12 | CON ---
DATE: 02/02/2017 REASON FOR CONSULTATION: Anemia, hyponatremia, need for dialysis. HISTORY OF PRESENT ILLNESS: An 81-year-old lady known to me from multiple evaluations, outpatient hemodialysis. The patient was in the medical side. She was admitted with pulmonary edema. She was found to have non-ST elevation FL. She was initially empirically treated for pneumonia. Subsequently, she developed abdominal pain, epigastric pain. She was treated with antibiotics. She was also treated with IV heparin. She is now in the Transitional Care Unit for rehabilitation. Today, her sodium was found to be 133. Also, hemoglobin is 9. Hence consultation was requested. PAST MEDICAL AND SURGICAL HISTORY: NIDDM, hypertension, CAD, PTCA and stent, CHF, cardiomyopathy, paroxysmal AFib, ESRD, anemia, secondary hyperparathyroidism, pneumonia. FAMILY HISTORY: Noncontributory. SOCIAL HISTORY: No smoking, no alcohol use, no IV drug abuse. ALLERGIES: Ceftriaxone. CURRENT MEDICATIONS: Coreg 25 g b.i.d., aspirin 81, Flagyl 500 IV at bedtime, insulin, Imdur ER 30 mg b.i.d., Lipitor 20, cefepime 1 g, gabapentin, amlodipine 5, PhosLo 2 tablets three times a day, Plavix 75, Protonix, Synthroid, fenofibrate, vancomycin 125 q.i.d., Zofran. REVIEW OF SYSTEMS: All systems are reviewed, pertinent positives as mentioned in the history of presenting illness, rest unremarkable. PHYSICAL EXAMINATION: GENERAL: Elderly lady lying in bed. VITAL SIGNS: Blood pressure 148/48, heart rate 57, respiratory rate 18, temperature 98. HEENT: Normocephalic, atraumatic, positive pallor. NECK: Supple, no JVD. LUNGS: Bilateral equal entry, rales present. CARDIAC: S1, S2. Regular rate and rhythm, no murmur, no rub. ABDOMEN: Distended, soft, nontender, bowel sounds present. EXTREMITIES: No lower extremity edema. Intake and output not charted. LABORATORY DATA: WBC 5.9, hemoglobin 9, hematocrit 28, platelets 102. Sodium 133, potassium 5.0, chloride 93, CO2 29, BUN 28, creatinine 5.0, glucose 100, calcium 8.3, AST 35, ALT 25, albumin 3.2. ASSESSMENT/PLAN: 1. Gastritis, nausea, vomiting. 2. Anemia of chronic kidney disease. 3. Recent non-ST elevation myocardial infarction. 4. Non insulin dependent diabetes mellitus. 5. End stage renal disease. PLAN: 1. Dialysis today. 2. Continue PPI. 3. Continue beta-leandro, aspirin, Plavix, statin. 4. Physical therapy. Thank you for the courtesy of this consultation. We will follow this patient with you. Barbi Linares MD
[2017-02-03] MEDS: Levothyroxine 50 MCG TAB PO SCH (05:33)
[2017-02-03] MEDS: Pantoprazole 20 mg EC Tab PO SCH (05:33)
[2017-02-03] MEDS: Cefepime 1gm in NS 100ml 1 GM/100 ML BAG IVPB SCH (05:36)
[2017-02-03] MEDS: metroNIDAZOLE IV 500 mg/100 ml 500 MG/100 ML BAG IVPB SCH ×4 (05:37→21:41)
[2017-02-03] MEDS: Insulin Reg-LOW-Coverage SC SCH ×4 (06:45→21:42)
[2017-02-03] MEDS: Vancomycin 25 MG/ML PO SCH ×4 (09:15→21:42)
--- NOTE | 2017-02-03 09:45 | PN ---
DATE: SUBJECTIVE: The patient is currently seen in the TCU. She is sitting up in bed, having breakfast. She is scheduled for dialysis later today. Patient dialyzes 4 days a week because of volume related issues. She no longer has any abdominal pain. She is completing a course of IV antibiotic therapy for diverticulitis and possible cholecystitis. MEDICATIONS: Medication list reviewed. The patient is on Coreg, Ecotrin, Flagyl, insulin, Imdur, Lipitor, Maxipime, Neurontin, Norvasc, PhosLo, Plavix, Protonix, Synthroid, TriCor, oral vancomycin and Zofran p.r.n. OBJECTIVE: VITAL SIGNS: Blood pressure 152/56, pulse 98, temperature 98.6, respiratory rate 16. HEENT: Exam shows her to be normocephalic, atraumatic. Conjunctiva are pale. Sclerae are nonicteric. NECK: Supple. No neck vein distention. CHEST: Clear to auscultation and percussion. No rales or rhonchi. No wheezing. CARDIOVASCULAR: Regular rate and rhythm. MR/TR. Distal lower extremity pulses are 1-2+. ABDOMEN: Soft. Bowel sounds normal. No masses. No tenderness on palpation of her right upper quadrant or left lower quadrant. EXTREMITIES: No lower extremity edema. Positive working AV fistula, left upper extremity. Positive thrill. Positive bruit. LABORATORY DATA AND IMAGING: White blood cell count from yesterday 5.9, hemoglobin 9.2, platelet count is 102,000. Chemistry showed normal electrolytes. BUN 20 with a creatinine of 5.0. Last glucose was 83. Calcium is 8.3. Liver enzymes are normal. Albumin is 3.2. ASSESSMENT: Status post non-ST elevation myocardial infarction with acute coronary syndrome associated with mild congestive heart failure, pulmonary vascular congestion. Volume status is back to baseline with four times a week dialysis. Troponin levels have fallen. The patient is being treated medically. She remains on beta-leandro therapy. She is off IV heparin. Mild acute cholecystitis with diverticulitis. The patient is completing a course of antibiotic therapy. She is still not to be a surgical candidate. Status post pseudomembranous colitis, positive stools for C. diff. She is completing a course of oral vancomycin therapy. History of end-stage renal disease. The patient will continue 4 times a week dialysis because of what we mentioned above the patient's tendency to go into congestive heart failure related to volume. History of hypertension. Blood pressure control is acceptable. History of anemia. The patient will continue maximum dose of Aranesp as per protocol. We will try and maintain hemoglobin level in the 9-10 range in light of her coronary situation. Status post mild hyperkalemia. Her last potassium level was acceptable at 5.0. History of secondary hyperparathyroidism. The patient's last phosphorus level was 4.6. The patient is back on binder therapy along with a renal diet. PLAN: 1. Hemodialysis today as noted above. 2. Complete course of antibiotic therapy in light of her diverticulitis and possible mild cholecystitis. 3. Continue rehabilitation in the TCU. 4. Conservative management of her coronary artery disease as per cardiology. Buck Yanes MD
--- NOTE | 2017-02-03 10:26 | PN ---
DATE: 02/03/2017 SUBJECTIVE: The patient is in bed, in no acute distress, and nontoxic. PHYSICAL EXAMINATION: VITAL SIGNS: Temperature is 98, blood pressure is 150/60, and respiratory rate of 18. HEENT: Examination of HEENT is unremarkable. NECK: Supple LUNGS: Have decreased breath sounds. HEART: Normal S1 and S2. GASTROINTESTINAL: Abdominal examination is soft. LABORATORY DATA: Examination reveals a white count is 5.9, hemoglobin of 9, and platelets of 102. BUN of 28 and creatinine of 5.0. MEDICATIONS: Review of medications reveals the patient to be on Flagyl IV and cefepime and p.o. vancomycin. ASSESSMENT AND PLAN: This is an 81-year-old female with end-stage renal disease on hemodialysis, congestive heart failure, coronary artery disease, diabetes, chronic obstructive lung disease, acute non-ST elevation myocardial infarction and sepsis with acute diverticulitis and bilateral healthcare-associated pneumonia. On day number 6 of cefepime and Flagyl and day number 5 of p.o. vancomycin. We will continue present course. Jeromy Castellanos MD
[2017-02-03 15:04] LABS: ALB/GLOB RATIO 0.8 (1.1-1.8); BILIRUBIN,TOTAL 0.7 mg/dL (0.2-1.3); CALCIUM 8.6 mg/dL (8.4-10.5); MAGNESIUM 1.7 mg/dL (1.7-2.2); PHOSPHOROUS 2.8 mg/dL (2.5-4.5); TOTAL PROTEIN 6.7 g/dL (5.8-8.3)
[2017-02-03 15:16] LABS: EOS % 0.5 % (1.5-5.0); GRAN # 2.81 (1.4-6.5); GRAN % 65.4 % (50.0-68.0); HEMATOCRIT 29.6 % (36.0-48.0); LYMPH % 23.8 % (22.0-35.0); MEAN CELL VOLUME 101.4 fl (80.0-105.0); MEAN CORPUSCULAR HEMOGLOBIN 31.5 pg (25.0-35.0); MEAN CORPUSCULAR HGB CONC 31.1 g/dl (31.0-37.0); MEAN PLATELET VOLUME 9.4 fl (7.0-11.0); MONO # 0.4 (0.1-0.6); MONO % 10.3 % (1.0-6.0); WHITE BLOOD COUNT 4.3 10^3/ul (4.5-11.0)
--- NOTE | 2017-02-04 04:12 | CON ---
DATE: HISTORY OF PRESENT ILLNESS: This patient was seen and evaluated earlier today. PHYSICAL EXAMINATION: VITAL SIGNS: The patient is afebrile, blood pressure is 154/63 and pulse is 60. HEENT: Atraumatic and anicteric. NECK: Supple. HEART: S1 and S2 heard. LUNGS: Bilateral air entry present. ABDOMEN: Soft. There is mild tenderness present in the right upper quadrant area with hepatomegaly. EXTREMITIES: No cyanosis. No clubbing. LABORATORY DATA: Hemoglobin 9.2, hematocrit 29.6, WBC 4.1 to 4.3, and platelets 104. BUN 17 and creatinine 4.0. IMPRESSION: This is an 81-year-old patient admitted with end-stage renal disease, on hemodialysis, coronary artery disease, congestive heart failure, chronic obstructive pulmonary disease, asthma, admitted with [id number] elevation myocardial infarction, sepsis, possible pneumonia, on antibiotics. The patient has right upper quadrant pain. Sonogram shows some calcification in the gallbladder area, but no definitive stone. The appeared to be there is mild hepatomegaly. The patient also had some rectal bleeding and loose bowel movements. C. diff was positive. Antigen negative. The patient is also on p.o. vancomycin in addition to the p.o. Flagyl and cefepime, we will continue that. The patient is complaining of some perianal itching, perianal discomfort. Advised anal hygiene and sitz bath. Would avoid using steroid cream in view of the patient being on C. diff and also on antibiotics. Thank you very much for allowing me to participate in the care of this patient. Ysabel Theodore MD
[2017-02-04] MEDS: Cefepime 1gm in NS 100ml 1 GM/100 ML BAG IVPB SCH (05:42)
[2017-02-04] MEDS: metroNIDAZOLE IV 500 mg/100 ml 500 MG/100 ML BAG IVPB SCH ×3 (05:42→21:34)
[2017-02-04] MEDS: Levothyroxine 50 MCG TAB PO SCH (05:43)
[2017-02-04] MEDS: Pantoprazole 20 mg EC Tab PO SCH (05:43)
[2017-02-04] MEDS: Insulin Reg-LOW-Coverage SC SCH ×4 (06:29→21:46)
[2017-02-04] MEDS: Vancomycin 25 MG/ML PO SCH ×4 (10:27→21:34)
--- NOTE | 2017-02-04 11:44 | PN ---
DATE: 02/04/2017 The patient is in room #302. OBJECTIVE: VITAL SIGNS: On exam, temperature is 97, blood pressure is 160/40 and respiratory rate of 18. LABORATORY DATA: White count of 4.3, hemoglobin of 9 and platelets of 104. Chemistries reveal a BUN of 17 and creatinine of 4.0. CEA antigen is positive, the toxin is negative. ASSESSMENT AND PLAN: An 81-year-old female with end-stage renal disease, on hemodialysis; congestive heart failure; coronary artery disease; chronic obstructive lung disease; acute [id number] myocardial infarction and sepsis with acute diverticulitis and bilateral healthcare-associated pneumonia, on day #7 of cefepime and Flagyl, day #6 of p.o. vancomycin for pseudomembranous colitis. Continue the present course. We will follow with you. Jeromy Castellanos MD
--- NOTE | 2017-02-04 13:51 | PN ---
DATE: SUBJECTIVE: An 81-year-old female on Transitional Care Unit. Nursing staff relate that there were no problems during the night. PHYSICAL EXAMINATION: VITAL SIGNS: Her blood pressure is 158/93, her pulse is 61, her temp is 97.3. NECK: Supple. LUNGS: Clear with diminished breath sounds at the bases. HEART: S1 and S2, grade 3/6 systolic murmur. ABDOMEN: Soft with positive bowel sounds. EXTREMITIES: No evidence of edema. MEDICATIONS: Her current medications consists of Coreg 25 mg b.i.d., Ecotrin 81 mg daily, Humulin fingerstick coverage, Imdur 30 mg b.i.d., Lipitor 20 mg daily, Maxipime, Neurontin 100 mg at bedtime, Norvasc 5 mg daily, PhosLo 1334 mg with meals, Plavix 75 mg daily, Protonix 20 mg daily, Synthroid 50 mcg daily, TriCor 145 mg daily, vancomycin. ASSESSMENT AND PLAN: Currently, the patient is receiving Maxipime IV and Flagyl IV, being followed by Infectious Disease with inflammatory changes in the right sigmoid colon. She is on p.o. vancomycin, being followed by GI. She had a positive C. diff antigen. She is on dialysis 4 times a week with chronic renal failure, being followed by Nephrology. She is status post myocardial infarction, receiving medical conservative management, being followed by Cardiology. She is receiving physical therapy on the unit. We will continue current medical care. Shavonne Ascencio MD
--- NOTE | 2017-02-04 22:15 | PN ---
DATE: 02/04/2017 SUBJECTIVE: This patient was seen and evaluated earlier. She has improved. Even the perianal itching has decreased. PHYSICAL EXAMINATION: VITAL SIGNS: On examination, temperature is 97.7, pulse is 61 and blood pressure is 164/58. HEENT: Atraumatic. Anicteric. NECK: Supple. HEART: S1 and S2 heard. LUNGS: Bilateral air entry present. ABDOMEN: Soft. There is no significant tenderness in the left lower quadrant area, but the patient does have mild tenderness in the right upper quadrant area and the liver edge was palpable; this appears to have mild tenderness present. EXTREMITIES: No cyanosis. No clubbing. NEUROLOGICAL: Alert and oriented. Moves all the extremities. LABORATORY DATA: There are no recent labs today. IMPRESSION: This is an 81-year-old patient with end-stage renal disease, on hemodialysis; heart failure; chronic obstructive pulmonary disease, admitted with systemic inflammatory response syndrome, suspect bilateral pneumonia. The patient did have a complaint of right upper quadrant discomfort. The patient did have CT and sonogram done. Clinically, it appears to be congestive hepatomegaly. The patient does have some calcification in the gallbladder area; however, ultrasound did not reveal any obvious stones. It could be calcification of the wall. The patient has some thickening in the left sigmoid colon area; clinically, there appears to be chronic changes. The patient has Clostridium difficile antigen positive and toxin negative; in above background, it is reasonable to treat the patient. to treat the patient as Clostridium difficile in view of the underlying health condition. The present plan is the patient will continue the p.o. Flagyl and vancomycin. The patient is also on cefepime, will continue that as per the infectious disease. The patient is tolerating the diet. We will continue to closely follow up her care and suggest further management based on the clinical course. Ysabel Theodore MD
[2017-02-05] MEDS: Levothyroxine 50 MCG TAB PO SCH (05:03)
[2017-02-05] MEDS: Pantoprazole 20 mg EC Tab PO SCH (05:03)
[2017-02-05] MEDS: metroNIDAZOLE IV 500 mg/100 ml 500 MG/100 ML BAG IVPB SCH ×3 (05:04→22:00)
[2017-02-05] MEDS: Insulin Reg-LOW-Coverage SC SCH ×4 (06:35→21:57)
[2017-02-05] MEDS: Cefepime 1gm in NS 100ml 1 GM/100 ML BAG IVPB SCH (06:35)
--- NOTE | 2017-02-05 08:28 | PN ---
DATE: 02/04/2017 SUBJECTIVE: The patient is currently seen sitting up in bed. She had an uneventful fourth dialysis treatment yesterday with ultrafiltration. She has no shortness of breath. The patient is completing a course of IV antibiotic therapy for diverticulitis and possible cholecystitis. She has no chest pain and no shortness of breath. OBJECTIVE: VITAL SIGNS: Blood pressure 158/93, temperature 97.3, respiratory rate 18 with a pulse of 61. HEENT: Normocephalic, atraumatic. Conjunctivae are pale. Sclerae are nonicteric. NECK: Supple. No neck vein distention. CHEST: Clear to auscultation and percussion. No rales, no rhonchi, no wheezing. CARDIOVASCULAR: Shows regular rate and rhythm with MR/TR. Distal lower extremity pulses are intact at 1 to 2+. ABDOMEN: Soft, bowel sounds are normal. No masses. No rebound. No guarding. No right upper quadrant tenderness. No left lower quadrant tenderness. EXTREMITIES: No lower extremity edema. Positive AV fistula, left upper extremity. Positive thrill, positive bruit. LABORATORY DATA AND IMAGING: No labs done today. Yesterday his labs, CBC, hemoglobin of 9.2 with white blood cell count of 4.3 and a platelet count of 104,000. Chemistry showed normal electrolytes. BUN 17 with a creatinine of 4.0. Glucose 169. Calcium 8.6, phosphorus 2.8, magnesium 1.7, all within normal limits. Albumin is low at 3.1. MEDICATIONS: Medication list reviewed. The patient is on Coreg, Ecotrin, Flagyl, insulin, Imdur, Lipitor, Maxipime, Neurontin, Norvasc, PhosLo, Plavix, Protonix, Synthroid, TriCor, oral vancomycin and Zofran. ASSESSMENT: 1. Status post Non-ST elevation myocardial infarction with acute coronary syndrome associated with mild congestive heart failure, pulmonary vascular congestion. The patient's volume status is back to normal with four a week dialysis. Troponin have fallen. She remains on beta-leandro therapy. She is off IV heparin. She is being treated medically as per Cardiology. 2. Mild acute cholecystitis with diverticulitis. The patient is completing a course of IV antibiotic therapy. She was felt not to be a surgical candidate. 3. History of pseudomembranous colitis. Stools are positive for C. diff. She continues on a course of oral vancomycin therapy. No further diarrhea. 4. History of end-stage renal disease. The patient will continue four times a week dialysis because of her volume related issues, shortness of breath and congestive heart failure. 5. History of hypertension. Blood pressure control is acceptable. 6. History of anemia. The patient will continue maximum dose of Aranesp, try and maintain hemoglobin in the 9-10 range in light of the coronary situation. 7. History of mild hyperkalemia. Potassium level from yesterday was excellent at 4.0. 8. History of secondary hyperparathyroidism, back on binder therapy. Her phosphorus level is back to normal at 2.8. The patient will continue a renal diet. PLAN: 1. Hemodialysis tomorrow and she will continue four times a week dialysis. 2. Continue IV antibiotic therapy in light of her cholecystitis and diverticulitis. 3. Continue rehabilitation in the TCU. 4. Conservative management of coronary artery disease as per Cardiology. 5. Case discussed with Dr. Ascencio. Buck Yanes MD
[2017-02-05] MEDS: Vancomycin 25 MG/ML PO SCH ×4 (09:30→21:58)
--- NOTE | 2017-02-05 10:01 | PN ---
SUBJECTIVE: An 81-year-old female on transitional care unit receiving IV antibiotic therapy for diverticulitis of the sigmoid colon, status post treatment for pneumonia, code sepsis in the emergency room with non-ST MA. She is on dialysis 4 times a week, being followed by GI and nephrology. Cardiology has recommended purely conservative management. PHYSICAL EXAMINATION: VITAL SIGNS: Show a temp of 99.1, her blood pressure is 169/52, oxygen sat is 99% on 2 liters and respiratory rate is 20. The patient is scheduled for dialysis today during which time lab work will be done. MEDICATIONS: She is currently on Coreg 25 mg b.i.d., Ecotrin 81 mg daily, Flagyl 500 mg q. 8, fingerstick blood sugar with insulin coverage, Imdur 30 mg daily, Lipitor 20 mg daily, Maxipime 1 g q. daily, Neurontin 100 mg at bedtime, Norvasc 5 mg daily, PhosLo 1334 mg once with meals, Plavix 75 mg daily, Protonix 20 mg daily, Synthroid 50 mcg daily, TriCor 145 mg daily and vancomycin p.o. She has got positive C. diff antigen, placed on vancomycin by GI. Continue current medical care. Follow the patient's lab and continue her occupational and physical therapy. Shavonne Ascencio MD
[2017-02-05] MEDS: Hemorrohoidal Ointment (2 oz) TOP SCH (18:00)
[2017-02-05] MEDS ORDERED: guaiFENesin 200 mg/10 ml Syrup UD PO PRN (18:10)
--- NOTE | 2017-02-05 18:23 | CP.PCM.PN ---
Subjective - Date & Time of Evaluation Date of Evaluation: 02/05/17 Time of Evaluation: 18:00 - Subjective Subjective: Comfortable, no fevers. Objective - Vital Signs/Intake and Output Vital Signs (last 24 hours): Temp Pulse Resp BP Pulse Ox 98.8 F 56 L 18 145/41 L 99 02/05/17 10:00 02/05/17 10:00 02/05/17 10:00 02/05/17 10:00 02/05/17 10:00 - Medications Medications: Current Medications Amlodipine Besylate (Norvasc) 5 mg PO DAILY RUTHANN PRN Reason: Protocol Last Admin: 02/05/17 09:30 Dose: 5 mg Aspirin (Ecotrin) 81 mg PO 0800 RUTHANN PRN Reason: Protocol Last Admin: 02/05/17 07:58 Dose: 81 mg Atorvastatin Calcium (Lipitor) 20 mg PO DIN RUTHANN PRN Reason: Protocol Last Admin: 02/04/17 19:01 Dose: 20 mg Calcium Acetate (Phoslo) 1,334 mg PO WM RUTHANN PRN Reason: Protocol Last Admin: 02/05/17 12:53 Dose: 1,334 mg Carvedilol (Coreg) 25 mg PO 0800,1800 RUTHANN PRN Reason: Protocol Last Admin: 02/05/17 07:58 Dose: 25 mg Clopidogrel Bisulfate (Plavix) 75 mg PO DAILY RUTHANN PRN Reason: Protocol Last Admin: 02/05/17 09:30 Dose: 75 mg Fenofibrate (Tricor) 145 mg PO DAILY RUTHANN PRN Reason: Protocol Last Admin: 02/05/17 09:30 Dose: 145 mg Gabapentin (Neurontin) 100 mg PO HS RUTHANN PRN Reason: Protocol Last Admin: 02/04/17 21:34 Dose: 100 mg Metronidazole (Flagyl) 500 mg in 100 mls @ 100 mls/hr IVPB Q8 RUTHANN PRN Reason: Protocol Last Admin: 02/05/17 13:00 Dose: 100 mls/hr Cefepime HCl (Maxipime 1gm) 1 gm in 100 mls @ 100 mls/hr IVPB DAILY@0600 RUTHANN PRN Reason: Protocol Last Admin: 02/05/17 06:35 Dose: 100 mls/hr Insulin Human Regular (Humulin R Low) 0 units SC ACHS RUTHANN PRN Reason: Protocol Last Admin: 02/05/17 11:30 Dose: Not Given Isosorbide Mononitrate (Imdur Er) 30 mg PO 0600,1600 COUNT INCLUDES THE [facility] PRN Reason: Protocol Last Admin: 02/05/17 05:03 Dose: 30 mg Levothyroxine Sodium (Synthroid) 50 mcg PO 0600 COUNT INCLUDES THE [facility] Last Admin: 02/05/17 05:03 Dose: 50 mcg Multi-Ingredient Ointment (Prep-Hem) 0 ea TOP Q12H RUTHANN Ondansetron HCl (Zofran Inj) 4 mg IVP Q6H PRN; Protocol PRN Reason: Nausea/Vomiting Pantoprazole Sodium (Protonix Ec Tab) 20 mg PO 0600 RUTHANN PRN Reason: Protocol Last Admin: 02/05/17 05:03 Dose: 20 mg Vancomycin HCl (Vancocin 25 Mg/Ml (Oral Use)) 125 mg PO QID COUNT INCLUDES THE [facility] PRN Reason: Protocol Last Admin: 02/05/17 13:00 Dose: 125 mg - Labs Labs: 02/03/17 14:50 02/03/17 14:00 APTT 37.1 Seconds (25.1-36.5) H 02/02/17 12:30 - Constitutional Appears: Non-toxic, No Acute Distress - Head Exam Head Exam: NORMAL INSPECTION - ENT Exam ENT Exam: Mucous Membranes Moist - Neck Exam Neck Exam: absent: Meningismus - Respiratory Exam Respiratory Exam: Decreased Breath Sounds - Cardiovascular Exam Cardiovascular Exam: +S1, +S2 - GI/Abdominal Exam GI & Abdominal Exam: Soft. absent: Tenderness Assessment and Plan - Assessment and Plan (Free Text) Plan: Assessment Systemic Inflammatory Response Syndrome, consider due to acute NSTEMI, and sepsis due to acute descending colon diverticulitis and bilateral lobe healthcare-associated pneumonia R/O c. diff. colitis E. faecium in the urine, R/O UTI history of healthcare-associated pneumonia (right upper lobe, bilateral lower lobes) HTN DM CAD with chronic CHF ESRD on HD Plan Continue Cefepime and Flagyl (Day 8 - would recommend up to 7-10 days of therapy ) - S/P 7 days of Doxycycline; PCT was elevated on admission at 1.3 but patient has chronic renal failure; continue PO Vancomycin (day 6, for 10-14 days) will continue to monitor clinically
--- NOTE | 2017-02-05 23:44 | PN ---
DATE OF SERVICE: 02/05/2017 SUBJECTIVE: The patient is seen sitting in chair in the Dialysis Unit. She is complaining of not feeling well. She is complaining of cough. She is complaining of phlegm. OBJECTIVE: GENERAL: An elderly lady, lying in bed in the Dialysis Unit. VITAL SIGNS: Blood pressure 145/41, heart rate 56, respiratory rate 18, temperature 98.8. HEENT: Normocephalic, atraumatic. NECK: Supple. No JVD. LUNGS: Bilateral equal air entry, basilar rales. CARDIAC: S1 and S2, regular rate and rhythm, no murmur, no rub. ABDOMEN: Soft, nondistended, nontender, bowel sounds present. EXTREMITIES: No lower extremity edema. INTAKE AND OUTPUT: Not available. LABORATORY DATA: No new labs. MEDICATIONS: Coreg, aspirin, Flagyl, Imdur, Lipitor, Maxipime, Neurontin, Norvasc, PhosLo, Plavix, Protonix, Synthroid, TriCor, p.o. vancomycin, Zofran. ASSESSMENT: 1. Status post non-ST elevation myocardial infarction. 2. Congestive heart failure. 3. Non-insulin dependent diabetes mellitus. 4. Hypertension. 5. End-stage renal disease. PLAN: 1. Stable dialysis. 2. Increase ultrafiltration as tolerated. 3. *------*potassium 2 teaspoons q.8 h. 4. Physical therapy. 5. Fingerstick monitoring. Barbi Linares MD
[2017-02-06] MEDS: Cefepime 1gm in NS 100ml 1 GM/100 ML BAG IVPB SCH (06:28)
[2017-02-06] MEDS: metroNIDAZOLE IV 500 mg/100 ml 500 MG/100 ML BAG IVPB SCH ×3 (06:28→21:41)
[2017-02-06] MEDS: Pantoprazole 20 mg EC Tab PO SCH (06:29)
[2017-02-06] MEDS: Hemorrohoidal Ointment (2 oz) TOP SCH ×2 (06:29→17:54)
[2017-02-06] MEDS: Levothyroxine 50 MCG TAB PO SCH (06:30)
[2017-02-06] MEDS: Insulin Reg-LOW-Coverage SC SCH ×4 (08:46→22:52)
[2017-02-06] MEDS: Vancomycin 25 MG/ML PO SCH ×4 (11:28→21:42)
--- NOTE | 2017-02-06 12:35 | CP.PCM.PN ---
Subjective - Date & Time of Evaluation Date of Evaluation: 02/06/17 Time of Evaluation: 11:35 - Subjective Subjective: Comfortable on a chair, not in distress, afebrile, no diarrhea, no abdominal pain. Objective - Vital Signs/Intake and Output Vital Signs (last 24 hours): Temp Pulse Resp BP Pulse Ox 98.8 F 54 L 18 168/52 H 99 02/05/17 10:00 02/06/17 08:43 02/05/17 10:00 02/06/17 08:43 02/05/17 10:00 Intake and Output: 02/06/17 02/06/17 06:59 18:59 Intake Total 460 Balance 460 - Medications Medications: Current Medications Amlodipine Besylate (Norvasc) 5 mg PO DAILY [facility] PRN Reason: Protocol Last Admin: 02/05/17 09:30 Dose: 5 mg Aspirin (Ecotrin) 81 mg PO 0800 [facility] PRN Reason: Protocol Last Admin: 02/06/17 08:45 Dose: 81 mg Atorvastatin Calcium (Lipitor) 20 mg PO DIN [facility] PRN Reason: Protocol Last Admin: 02/05/17 16:50 Dose: Not Given Calcium Acetate (Phoslo) 1,334 mg PO WM [facility] PRN Reason: Protocol Last Admin: 02/06/17 08:47 Dose: 1,334 mg Carvedilol (Coreg) 25 mg PO 0800,1800 [facility] PRN Reason: Protocol Last Admin: 02/06/17 08:43 Dose: Not Given Clopidogrel Bisulfate (Plavix) 75 mg PO DAILY [facility] PRN Reason: Protocol Last Admin: 02/05/17 09:30 Dose: 75 mg Fenofibrate (Tricor) 145 mg PO DAILY [facility] PRN Reason: Protocol Last Admin: 02/05/17 09:30 Dose: 145 mg Gabapentin (Neurontin) 100 mg PO HS [facility] PRN Reason: Protocol Last Admin: 02/05/17 21:57 Dose: 100 mg Guaifenesin (Robitussin) 200 mg PO Q4H PRN PRN Reason: Cough and congestion Metronidazole (Flagyl) 500 mg in 100 mls @ 100 mls/hr IVPB Q8 [facility] PRN Reason: Protocol Last Admin: 02/06/17 06:28 Dose: 100 mls/hr Cefepime HCl (Maxipime 1gm) 1 gm in 100 mls @ 100 mls/hr IVPB DAILY@0600 [facility] PRN Reason: Protocol Last Admin: 02/06/17 06:28 Dose: 100 mls/hr Insulin Human Regular (Humulin R Low) 0 units SC ACHS [facility] PRN Reason: Protocol Last Admin: 02/06/17 08:46 Dose: Not Given Isosorbide Mononitrate (Imdur Er) 30 mg PO 0600,1600 [facility] PRN Reason: Protocol Last Admin: 02/06/17 06:28 Dose: 30 mg Levothyroxine Sodium (Synthroid) 50 mcg PO 0600 [facility] Last Admin: 02/06/17 06:30 Dose: 50 mcg Multi-Ingredient Ointment (Prep-Hem) 0 ea TOP Q12H [facility] Last Admin: 02/06/17 06:29 Dose: 1 applic Ondansetron HCl (Zofran Inj) 4 mg IVP Q6H PRN; Protocol PRN Reason: Nausea/Vomiting Pantoprazole Sodium (Protonix Ec Tab) 20 mg PO 0600 [facility] PRN Reason: Protocol Last Admin: 02/06/17 06:29 Dose: 20 mg Vancomycin HCl (Vancocin 25 Mg/Ml (Oral Use)) 125 mg PO QID [facility] PRN Reason: Protocol Last Admin: 02/05/17 21:58 Dose: 125 mg - Labs Labs: 02/03/17 14:50 02/03/17 14:00 APTT 37.1 Seconds (25.1-36.5) H 02/02/17 12:30 - Constitutional Appears: Non-toxic, No Acute Distress, Chronically Ill - Head Exam Head Exam: NORMAL INSPECTION - Neck Exam Neck Exam: absent: Meningismus - Respiratory Exam Respiratory Exam: Decreased Breath Sounds - Cardiovascular Exam Cardiovascular Exam: +S1, +S2 - GI/Abdominal Exam GI & Abdominal Exam: Soft. absent: Tenderness Assessment and Plan - Assessment and Plan (Free Text) Plan: Assessment Systemic Inflammatory Response Syndrome, consider due to acute NSTEMI, and sepsis due to acute descending colon diverticulitis and bilateral lobe healthcare-associated pneumonia, clinically improving R/O c. diff. colitis E. faecium in the urine, R/O UTI history of healthcare-associated pneumonia (right upper lobe, bilateral lower lobes) HTN DM CAD with chronic CHF ESRD on HD Plan Continue Cefepime and Flagyl (Day 9 - would recommend up to 7-10 days of therapy ) - S/P 7 days of Doxycycline; PCT was elevated on admission at 1.3 but patient has chronic renal failure; continue PO Vancomycin (day 7, for 10-14 days) will continue to follow clinically
--- NOTE | 2017-02-06 13:47 | PN ---
DATE: 02/06/2017 SUBJECTIVE: The patient is currently seen sitting up in chair. She had just completed rehabilitation and physical therapy in the TCU this morning. She no longer has any abdominal pain. She is completing the course of antibiotics for diverticulitis and possible cholecystitis. She appears to be stable on four times a week dialysis. MEDICATIONS: Medication list reviewed. The patient is currently on Coreg, Ecotrin, Flagyl, insulin, Imdur, Lipitor, Maxipime, Neurontin, Norvasc, PhosLo, Plavix, Protonix, Robitussin, Synthroid, TriCor, oral vancomycin, and Zofran p.r.n. OBJECTIVE: VITAL SIGNS: Blood pressure ranging from 145-171 systolic, diastolic is ranging from 41-62. Pulse 66, respiratory rate is 20 with a temperature of 97.6. HEENT: Normocephalic, atraumatic. Conjunctivae are pale. Sclerae are nonicteric. NECK: Supple. No neck vein distention. CHEST: Clear to auscultation and percussion. No rales, rhonchi, or wheezing. CARDIOVASCULAR: Shows irregular rate and rhythm with MR/TR. No rub. ABDOMEN: Soft. Bowel sounds are normal. No tenderness on her right upper quadrant or left lower quadrant. No masses appreciated. EXTREMITIES: There is no lower extremity edema. Positive AV fistula, left upper extremity. Positive thrill, positive bruit. LABORATORY DATA AND IMAGING: Her last white blood cell count was 4.3 with hemoglobin of 9.2 and a platelet count of 104,000. Last chemistry showed normal electrolytes. Chemistry showed a BUN of 17 with a creatinine of 4.0 with normal electrolytes. Glucose is 169. ASSESSMENT: 1. Status post non-ST elevation myocardial infarction with acute coronary syndrome. Status post mild congestive heart failure, pulmonary vascular congestion. The patient's volume status is back to normal with four times a week dialysis. She remains on beta-leandro therapy. She is being treated medically as per Cardiology. 2. Mild acute cholecystitis with diverticulitis. The patient is completing a course of intravenous antibiotic therapy. She is felt not to be a surgical candidate and is responding nicely to conservative therapy. 3. History of pseudomembranous colitis. Stools for Clostridium difficile were positive initially. She continues a prolonged course of oral vancomycin therapy. No further diarrhea. 4. History of end-stage renal disease. The patient will continue four times a week dialysis to make sure that she remains euvolemic. Presently, she has no shortness of breath or congestive heart failure. 5. History of hypertension. Mild systolic blood pressure elevation is acceptable. 6. History of anemia. The patient will continue maximum dose of Aranesp. We will try and keep her hemoglobin in the 10 range given her history of coronary artery disease. 7. History of mild hyperkalemia. Last potassium levels were normal. 8. History of secondary hyperparathyroidism. The patient is back on binder therapy. We will need to monitor her phosphorus level. This should be done predialysis tomorrow. PLAN: 1. Hemodialysis on Sunday, Sunday, Sunday, and Sunday. 2. Continue rehabilitation in the TCU. The patient has approximately three days left of her stay. 3. Conservative management as per Cardiology and GI. 4. Complete course of IV antibiotic therapy. Buck Yanes MD
--- NOTE | 2017-02-06 15:41 | PN ---
SUBJECTIVE: An 81-year-old female walking on transitional care unit with physical therapy. PHYSICAL EXAMINATION: VITAL SIGNS: Her temp is 98.8, her pulse is 54, blood pressure is 168/52 and oxygen saturation was reported at 99%. GENERAL: She is alert and oriented x3. LUNGS: Diminished breath sounds at the bases. HEART: S1 and S2 with grade II/ systolic murmur. ABDOMEN: Soft with positive bowel sounds. EXTREMITIES: Show no evidence of edema. CURRENT MEDICATIONS: Consist of Coreg 25 mg b.i.d., Ecotrin 81 mg daily, Flagyl 500 mg q. 8, fingerstick insulin coverage, Imdur 30 mg b.i.d., Lipitor 20 mg daily, Maxipime 1 g daily, Neurontin 100 mg at bedtime, Norvasc 5 mg daily, PhosLo 1334 mg with meals, Plavix 75 mg daily, Protonix 20 mg daily, Robitussin p.r.n., Synthroid 50 mcg daily, Tricor 145 mg daily, vancomycin IV and Zofran p.r.n. Currently, the patient is on IV antibiotics for acute diverticulitis, positive C. diff antigen. Recommendations at this time by infectious disease is to complete 7 to 10 days of cefepime and Flagyl; this is day #9 and complete 10 to 14 days of vancomycin, this is day #7. She is status post systemic inflammatory response syndrome secondary to a non-ST elevation myocardial infarction. Conservative medical management recommended. She is on dialysis dialysis 4 times a week with chronic renal disease. She is on fingerstick coverage for her diabetes, and she is on Synthroid replacement therapy for hypothyroid disease. We will continue current level of care. Shavonne Ascencio MD
--- NOTE | 2017-02-06 18:50 | CP.PCM.PN ---
<Starr Bowers - Last Filed: 02/06/17 18:50> Subjective - Date & Time of Evaluation Date of Evaluation: 02/06/17 Time of Evaluation: 11:00 - Subjective Subjective: Seen and examined in TCU earlier today, the chart was reviewed. Patient denies abdominal pain, nausea, vomiting. She still reports some mild loose stools, had one BM so far today, no reports of bleeding. Tolerating oral intake. Objective - Vital Signs/Intake and Output Vital Signs (last 24 hours): Temp Pulse Resp BP Pulse Ox 98.9 F 66 20 178/61 H 95 02/06/17 16:24 02/06/17 17:49 02/06/17 16:24 02/06/17 17:49 02/06/17 16:24 Intake and Output: 02/06/17 02/06/17 06:59 18:59 Intake Total 460 Balance 460 - Medications Medications: Current Medications Amlodipine Besylate (Norvasc) 5 mg PO DAILY [facility] PRN Reason: Protocol Last Admin: 02/06/17 11:27 Dose: 5 mg Aspirin (Ecotrin) 81 mg PO 0800 [facility] PRN Reason: Protocol Last Admin: 02/06/17 08:45 Dose: 81 mg Atorvastatin Calcium (Lipitor) 20 mg PO DIN [facility] PRN Reason: Protocol Last Admin: 02/06/17 17:51 Dose: 20 mg Calcium Acetate (Phoslo) 1,334 mg PO WM [facility] PRN Reason: Protocol Last Admin: 02/06/17 17:52 Dose: 1,334 mg Carvedilol (Coreg) 25 mg PO 0800,1800 [facility] PRN Reason: Protocol Last Admin: 02/06/17 17:49 Dose: 25 mg Clopidogrel Bisulfate (Plavix) 75 mg PO DAILY [facility] PRN Reason: Protocol Last Admin: 02/06/17 11:28 Dose: 75 mg Fenofibrate (Tricor) 145 mg PO DAILY [facility] PRN Reason: Protocol Last Admin: 02/06/17 11:28 Dose: 145 mg Gabapentin (Neurontin) 100 mg PO HS [facility] PRN Reason: Protocol Last Admin: 02/05/17 21:57 Dose: 100 mg Guaifenesin (Robitussin) 200 mg PO Q4H PRN PRN Reason: Cough and congestion Metronidazole (Flagyl) 500 mg in 100 mls @ 100 mls/hr IVPB Q8 [facility] PRN Reason: Protocol Last Admin: 02/06/17 14:56 Dose: 100 mls/hr Cefepime HCl (Maxipime 1gm) 1 gm in 100 mls @ 100 mls/hr IVPB DAILY@0600 [facility] PRN Reason: Protocol Last Admin: 02/06/17 06:28 Dose: 100 mls/hr Insulin Human Regular (Humulin R Low) 0 units SC ACHS [facility] PRN Reason: Protocol Last Admin: 02/06/17 17:50 Dose: 1 units Isosorbide Mononitrate (Imdur Er) 30 mg PO 0600,1600 [facility] PRN Reason: Protocol Last Admin: 02/06/17 17:51 Dose: 30 mg Levothyroxine Sodium (Synthroid) 50 mcg PO 0600 [facility] Last Admin: 02/06/17 06:30 Dose: 50 mcg Multi-Ingredient Ointment (Prep-Hem) 0 ea TOP Q12H [facility] Last Admin: 02/06/17 17:54 Dose: 1 applic Ondansetron HCl (Zofran Inj) 4 mg IVP Q6H PRN; Protocol PRN Reason: Nausea/Vomiting Pantoprazole Sodium (Protonix Ec Tab) 20 mg PO 0600 [facility] PRN Reason: Protocol Last Admin: 02/06/17 06:29 Dose: 20 mg Vancomycin HCl (Vancocin 25 Mg/Ml (Oral Use)) 125 mg PO QID [facility] PRN Reason: Protocol Last Admin: 02/06/17 17:53 Dose: 125 mg - Labs Labs: 02/03/17 14:50 02/03/17 14:00 APTT 37.1 Seconds (25.1-36.5) H 02/02/17 12:30 - Constitutional Appears: No Acute Distress - Eye Exam Eye Exam: Normal appearance. absent: Scleral icterus - ENT Exam ENT Exam: Mucous Membranes Moist - Neck Exam Neck Exam: Normal Inspection - Respiratory Exam Respiratory Exam: NORMAL BREATHING PATTERN. absent: Respiratory Distress - Cardiovascular Exam Cardiovascular Exam: +S1, +S2 - GI/Abdominal Exam GI & Abdominal Exam: Soft, Normal Bowel Sounds. absent: Guarding, Tenderness, Rebound - Extremities Exam Extremities Exam: Normal Capillary Refill. absent: Calf Tenderness, Pedal Edema - Neurological Exam Neurological Exam: Alert, Awake, Oriented x3 - Skin Skin Exam: Dry, Warm Assessment and Plan - Assessment and Plan (Free Text) Assessment: Assessment: Cdiff colitis, antigen positive Improved Abdominal pain, status post CAT scan reporting calcified gallbladder, ultrasound was negative for gallstones. Ct scan report possible cholecystitis, abdominal US also done prior, no pericholecytic fluid or gallstones Mild acute diverticulitis on repeat CT scan Non-ST segment LA History of gastroparesis COPD CHF End-stage renal disease on dialysis Coronary artery disease Plan: On IV antibiotics as per ID continue oral Vancomycin Continue PPI continue soft low residual heart healthy moderate carb renal diet. On Plavix & aspirin Monitor H&H Seen and discussed with Dr. Theodore. <Ysabel Theodore V - Last Filed: 02/06/17 22:52> Objective - Vital Signs/Intake and Output Vital Signs (last 24 hours): Temp Pulse Resp BP Pulse Ox 98.9 F 66 20 178/61 H 95 02/06/17 16:24 02/06/17 17:49 02/06/17 16:24 02/06/17 17:49 02/06/17 16:24 Intake and Output: 02/06/17 02/07/17 18:59 06:59 Intake Total 420 Balance 420 - Medications Medications: Current Medications Amlodipine Besylate (Norvasc) 5 mg PO DAILY [facility] PRN Reason: Protocol Last Admin: 02/06/17 11:27 Dose: 5 mg Aspirin (Ecotrin) 81 mg PO 0800 [facility] PRN Reason: Protocol Last Admin: 02/06/17 08:45 Dose: 81 mg Atorvastatin Calcium (Lipitor) 20 mg PO DIN [facility] PRN Reason: Protocol Last Admin: 02/06/17 17:51 Dose: 20 mg Calcium Acetate (Phoslo) 1,334 mg PO WM [facility] PRN Reason: Protocol Last Admin: 02/06/17 17:52 Dose: 1,334 mg Carvedilol (Coreg) 25 mg PO 0800,1800 [facility] PRN Reason: Protocol Last Admin: 02/06/17 17:49 Dose: 25 mg Clopidogrel Bisulfate (Plavix) 75 mg PO DAILY [facility] PRN Reason: Protocol Last Admin: 02/06/17 11:28 Dose: 75 mg Fenofibrate (Tricor) 145 mg PO DAILY [facility] PRN Reason: Protocol Last Admin: 02/06/17 11:28 Dose: 145 mg Gabapentin (Neurontin) 100 mg PO HS [facility] PRN Reason: Protocol Last Admin: 02/06/17 21:42 Dose: 100 mg Guaifenesin (Robitussin) 200 mg PO Q4H PRN PRN Reason: Cough and congestion Metronidazole (Flagyl) 500 mg in 100 mls @ 100 mls/hr IVPB Q8 [facility] PRN Reason: Protocol Last Admin: 02/06/17 21:41 Dose: 100 mls/hr Cefepime HCl (Maxipime 1gm) 1 gm in 100 mls @ 100 mls/hr IVPB DAILY@0600 [facility] PRN Reason: Protocol Last Admin: 02/06/17 06:28 Dose: 100 mls/hr Insulin Human Regular (Humulin R Low) 0 units SC ACHS [facility] PRN Reason: Protocol Last Admin: 02/06/17 17:50 Dose: 1 units Isosorbide Mononitrate (Imdur Er) 30 mg PO 0600,1600 [facility] PRN Reason: Protocol Last Admin: 02/06/17 17:51 Dose: 30 mg Levothyroxine Sodium (Synthroid) 50 mcg PO 0600 [facility] Last Admin: 02/06/17 06:30 Dose: 50 mcg Multi-Ingredient Ointment (Prep-Hem) 0 ea TOP Q12H [facility] Last Admin: 02/06/17 17:54 Dose: 1 applic Ondansetron HCl (Zofran Inj) 4 mg IVP Q6H PRN; Protocol PRN Reason: Nausea/Vomiting Pantoprazole Sodium (Protonix Ec Tab) 20 mg PO 0600 [facility] PRN Reason: Protocol Last Admin: 02/06/17 06:29 Dose: 20 mg Vancomycin HCl (Vancocin 25 Mg/Ml (Oral Use)) 125 mg PO QID [facility] PRN Reason: Protocol Last Admin: 02/06/17 21:42 Dose: 125 mg - Labs Labs: 02/03/17 14:50 02/03/17 14:00 APTT 37.1 Seconds (25.1-36.5) H 02/02/17 12:30 Attending/Attestation - Attestation I have personally seen and examined this patient.: Yes I have fully participated in the care of the patient.: Yes I have reviewed all pertinent clinical information, including history, physical exam and plan: Yes Notes (Text): This is an addendum to GI progress report dictated by Starr Bowers APN.The patient was seen and examined earlier. Medical records, lab studies, imagings were reviewed. Last 24 hours events reviewed. Agreed with the above treatment plan as outlined in Starr Bowers APN's notes the with the addition of the following she has a small semisolids bowel movements. On the vancomycin and IV Flagyl antibiotics as per ID Stool for C. difficile positive Patient is still on IV antibiotics reasonable thing is to repeat the C. difficile after antibiotic regimen is over 02/06/17 22:42
[2017-02-07] MEDS: metroNIDAZOLE IV 500 mg/100 ml 500 MG/100 ML BAG IVPB SCH (05:02)
[2017-02-07] MEDS: Cefepime 1gm in NS 100ml 1 GM/100 ML BAG IVPB SCH (05:03)
[2017-02-07] MEDS: Hemorrohoidal Ointment (2 oz) TOP SCH ×2 (05:08→18:52)
[2017-02-07] MEDS: Levothyroxine 50 MCG TAB PO SCH (05:09)
[2017-02-07] MEDS: Pantoprazole 20 mg EC Tab PO SCH (05:09)
[2017-02-07] MEDS: Insulin Reg-LOW-Coverage SC SCH ×4 (06:46→22:44)
[2017-02-07] MEDS: Vancomycin 25 MG/ML PO SCH ×4 (10:59→22:11)
--- NOTE | 2017-02-07 11:17 | PN ---
SUBJECTIVE: An 81-year-old female on transitional care unit, offers no specific complaint this morning, states she is not having any abdominal pain today. Nursing staff relates that there were no problems. PHYSICAL EXAMINATION: VITAL SIGNS: Her blood pressure is 173/59, her temp is 98.9, her pulse is 60, and oxygen saturation 95% on room air. Her fingerstick blood sugar this morning was 129. GENERAL: She is alert and oriented x3. NECK: Supple. LUNGS: Showed diminished breath sounds at the bases. HEART: S1 and S2 with grade 2/6 systolic murmur. ABDOMEN: Soft with positive bowel sounds. EXTREMITIES: No evidence of edema. The patient is receiving occupational and physical therapy on transitional care unit. She is status post code sepsis in the emergency room with a non-ST-AL; diverticulitis of the sigmoid colon; C. diff infection; underlying COPD; valvular heart disease; hypertension; hyperlipidemia; carotid disease; chronic renal disease, on dialysis 4 times a week. CURRENT MEDICATIONS: Consist of Coreg 25 mg b.i.d., Ecotrin 81 mg daily, Flagyl IV, fingerstick blood sugar with coverage, Imdur 30 mg b.i.d., Lipitor 20 mg daily, Maxipime 1 g daily, Neurontin 100 mg at bedtime, Norvasc 5 mg daily, calcium acetate 1334 mg once with meals, Plavix 75 mg daily, ointment for rectal area, Protonix 20 mg daily, Robitussin p.r.n., Synthroid 50 mcg daily, TriCor 145 mg daily, vancomycin 125 mg p.o. q.i.d. PLAN: The patient is scheduled for dialysis today. She is being followed by infectious disease, renal and GI. Antibiotics will be continued according to recommendations of infectious disease. We will continue occupational and physical therapy. Her labs are being monitored by renal. Shavonne Ascencio MD
--- NOTE | 2017-02-07 12:59 | CP.PCM.PN ---
Subjective - Date & Time of Evaluation Date of Evaluation: 02/07/17 Time of Evaluation: 11:25 - Subjective Subjective: Comfortable, no fevers, not in distress. Objective - Vital Signs/Intake and Output Vital Signs (last 24 hours): Temp Pulse Resp BP Pulse Ox 98.9 F 60 20 173/59 H 95 02/06/17 16:24 02/07/17 08:14 02/06/17 16:24 02/07/17 08:14 02/06/17 16:24 Intake and Output: 02/07/17 02/07/17 06:59 18:59 Intake Total 420 Balance 420 - Medications Medications: Current Medications Amlodipine Besylate (Norvasc) 5 mg PO DAILY [facility] PRN Reason: Protocol Last Admin: 02/06/17 11:27 Dose: 5 mg Aspirin (Ecotrin) 81 mg PO 0800 [facility] PRN Reason: Protocol Last Admin: 02/07/17 08:13 Dose: 81 mg Atorvastatin Calcium (Lipitor) 20 mg PO DIN [facility] PRN Reason: Protocol Last Admin: 02/06/17 17:51 Dose: 20 mg Calcium Acetate (Phoslo) 1,334 mg PO WM [facility] PRN Reason: Protocol Last Admin: 02/07/17 08:13 Dose: 1,334 mg Carvedilol (Coreg) 25 mg PO 0800,1800 [facility] PRN Reason: Protocol Last Admin: 02/07/17 08:14 Dose: 25 mg Clopidogrel Bisulfate (Plavix) 75 mg PO DAILY [facility] PRN Reason: Protocol Last Admin: 02/06/17 11:28 Dose: 75 mg Fenofibrate (Tricor) 145 mg PO DAILY [facility] PRN Reason: Protocol Last Admin: 02/06/17 11:28 Dose: 145 mg Gabapentin (Neurontin) 100 mg PO HS [facility] PRN Reason: Protocol Last Admin: 02/06/17 21:42 Dose: 100 mg Guaifenesin (Robitussin) 200 mg PO Q4H PRN PRN Reason: Cough and congestion Metronidazole (Flagyl) 500 mg in 100 mls @ 100 mls/hr IVPB Q8 [facility] PRN Reason: Protocol Last Admin: 02/07/17 05:02 Dose: 100 mls/hr Cefepime HCl (Maxipime 1gm) 1 gm in 100 mls @ 100 mls/hr IVPB DAILY@0600 [facility] PRN Reason: Protocol Last Admin: 02/07/17 05:03 Dose: 100 mls/hr Insulin Human Regular (Humulin R Low) 0 units SC ACHS [facility] PRN Reason: Protocol Last Admin: 02/07/17 06:46 Dose: Not Given Isosorbide Mononitrate (Imdur Er) 30 mg PO 0600,1600 [facility] PRN Reason: Protocol Last Admin: 02/07/17 05:08 Dose: 30 mg Levothyroxine Sodium (Synthroid) 50 mcg PO 0600 [facility] Last Admin: 02/07/17 05:09 Dose: 50 mcg Multi-Ingredient Ointment (Prep-Hem) 0 ea TOP Q12H [facility] Last Admin: 02/07/17 05:08 Dose: 1 applic Ondansetron HCl (Zofran Inj) 4 mg IVP Q6H PRN; Protocol PRN Reason: Nausea/Vomiting Pantoprazole Sodium (Protonix Ec Tab) 20 mg PO 0600 [facility] PRN Reason: Protocol Last Admin: 02/07/17 05:09 Dose: 20 mg Vancomycin HCl (Vancocin 25 Mg/Ml (Oral Use)) 125 mg PO QID [facility] PRN Reason: Protocol Last Admin: 02/06/17 21:42 Dose: 125 mg - Labs Labs: 02/03/17 14:50 02/03/17 14:00 APTT 37.1 Seconds (25.1-36.5) H 02/02/17 12:30 - Constitutional Appears: Non-toxic, No Acute Distress - Head Exam Head Exam: NORMAL INSPECTION - ENT Exam ENT Exam: Mucous Membranes Moist - Neck Exam Neck Exam: absent: Lymphadenopathy, Meningismus - Respiratory Exam Respiratory Exam: Decreased Breath Sounds - Cardiovascular Exam Cardiovascular Exam: +S1, +S2 - GI/Abdominal Exam GI & Abdominal Exam: Soft. absent: Tenderness Assessment and Plan - Assessment and Plan (Free Text) Plan: Assessment Systemic Inflammatory Response Syndrome, consider due to acute NSTEMI, and sepsis due to acute descending colon diverticulitis and bilateral lobe healthcare-associated pneumonia, clinically improving R/O c. diff. colitis E. faecium in the urine, R/O UTI history of healthcare-associated pneumonia (right upper lobe, bilateral lower lobes) HTN DM CAD with chronic CHF ESRD on HD Plan Continue Cefepime and Flagyl (Day 10 - would recommend up to 7-10 days of therapy - will d/c today) - S/P 7 days of Doxycycline; PCT was elevated on admission at 1.3 but patient has chronic renal failure; continue PO Vancomycin ( day 8, for 10-14 days) will continue to follow clinically
[2017-02-07 14:59] LABS: EOS % 0.9 % (1.5-5.0); GRAN # 2.2 (1.4-6.5); GRAN % 63.6 % (50.0-68.0); HEMATOCRIT 27.9 % (36.0-48.0); LYMPH # 0.9 (1.2-3.4); LYMPH % 25.7 % (22.0-35.0); MEAN CELL VOLUME 101.1 fl (80.0-105.0); MEAN CORPUSCULAR HEMOGLOBIN 32.2 pg (25.0-35.0); MEAN CORPUSCULAR HGB CONC 31.9 g/dl (31.0-37.0); MEAN PLATELET VOLUME 8.9 fl (7.0-11.0); MONO # 0.3 (0.1-0.6); MONO % 9.8 % (1.0-6.0); RED CELL DISTRIBUTION WIDTH 18.2 % (11.5-14.5); WHITE BLOOD COUNT 3.5 10^3/ul (4.5-11.0)
[2017-02-07 15:04] LABS: ALB/GLOB RATIO 0.8 (1.1-1.8); BILIRUBIN,TOTAL 0.8 mg/dL (0.2-1.3); CALCIUM 8.5 mg/dL (8.4-10.5); MAGNESIUM 1.8 mg/dL (1.7-2.2); POTASSIUM 4.6 mmol/L (3.6-5.0); TOTAL PROTEIN 6.5 g/dL (5.8-8.3)
[2017-02-07] MEDS ORDERED: Darbepoetin Alfa 100 mcg/ml Inj IVP ONE (15:22)
--- NOTE | 2017-02-07 16:29 | PN ---
DATE: 02/07/2017 SUBJECTIVE: The patient is sitting in chair. She looks comfortable. She reports she is not feeling well. She has no specific complaints but she is not feeling well. PHYSICAL EXAMINATION: GENERAL: Elderly lady sitting in chair. VITAL SIGNS: Blood pressure 173/53, heart rate 61, respiratory rate 20, temperature 98.9. HEENT: Normocephalic, atraumatic, positive pallor. NECK: Supple, no JVD. LUNGS: Bilateral equal air entry, scattered rhonchi. CARDIAC: S1-S2, regular rate and rhythm, no murmur, no rub. ABDOMEN: Soft, nondistended, nontender, bowel sounds present. EXTREMITIES: No lower extremity edema. INTAKE AND OUTPUT: Not charted. LABORATORY DATA: No new labs available. MEDICATIONS: List reviewed. ASSESSMENT: 1. End-stage renal disease, dialysis today. 2. Status post non-ST elevation myocardial infarction. 3. Diverticulitis. 4. History of pseudomembranous colitis. 5. Hypertension. 6. Auj-jlrtxle-rsalygxcd diabetes mellitus. 7. Anemia. 8. Secondary hyperparathyroidism. 9. ?Mild depression. PLAN: 1. Dialysis today. 2. Continue antihypertensives. 3. Continue fingerstick monitoring. 4. Complete antibiotics as per ID recommendations. 5. Psychiatric evaluation Barbi Linares MD
[2017-02-08] MEDS: Pantoprazole 20 mg EC Tab PO SCH (05:30)
[2017-02-08] MEDS: Levothyroxine 50 MCG TAB PO SCH (05:30)
[2017-02-08] MEDS: Hemorrohoidal Ointment (2 oz) TOP SCH ×2 (05:31→18:02)
[2017-02-08] MEDS: Insulin Reg-LOW-Coverage SC SCH ×4 (06:53→22:21)
[2017-02-08 07:48] LABS: BASO # 0.01 K/mm3 (0.0-2.0); BASO % 0.3 % (0.0-3.0); EOS % 1.1 % (1.5-5.0); GRAN # 2.22 (1.4-6.5); GRAN % 60.3 % (50.0-68.0); HEMATOCRIT 29.9 % (36.0-48.0); MEAN CELL VOLUME 102.7 fl (80.0-105.0); MEAN CORPUSCULAR HEMOGLOBIN 31.6 pg (25.0-35.0); MEAN CORPUSCULAR HGB CONC 30.8 g/dl (31.0-37.0); MEAN PLATELET VOLUME 8.8 fl (7.0-11.0); MONO # 0.4 (0.1-0.6); MONO % 10.3 % (1.0-6.0); RED CELL DISTRIBUTION WIDTH 18.3 % (11.5-14.5); WHITE BLOOD COUNT 3.7 10^3/ul (4.5-11.0)
[2017-02-08 07:59] LABS: ALB/GLOB RATIO 0.8 (1.1-1.8); BILIRUBIN,TOTAL 0.7 mg/dL (0.2-1.3); CALCIUM 8.3 mg/dL (8.4-10.5); POTASSIUM 3.5 mmol/L (3.6-5.0); TOTAL PROTEIN 6.8 g/dL (5.8-8.3)
[2017-02-08] MEDS: Vancomycin 25 MG/ML PO SCH ×4 (10:29→21:20)
--- NOTE | 2017-02-08 12:33 | PN ---
SUBJECTIVE: An 81-year-old female working with physical therapy on the Transitional Care Unit. The patient states that she is ambulating okay. She offers no specific complaints this morning. PHYSICAL EXAMINATION: VITAL SIGNS: Show a temp of 98.5, her blood pressure is 176/70, her oxygen saturation is 97%, respiratory rate is 20, pulse is 86. NECK: Supple. LUNGS: Diminished breath sounds at the bases. HEART: S1 and S2 with grade II/ systolic murmur. ABDOMEN: Soft. Positive bowel sounds. EXTREMITIES: No evidence of edema. LABORATORY DATA: Shows WBC of 3.7, RBC 2.91, hemoglobin 9.2, hematocrit 29.9 and platelet count is 97,000. Chemistry shows sodium of 140, potassium 3.5, chloride 100, CO2 of 29, BUN is 23, creatinine is 3.8, random blood sugar is 177, calcium is 8.3. MEDICATIONS: The patient is currently on Coreg 25 mg b.i.d., Ecotrin 81 mg daily, fingerstick blood sugar coverage with insulin, Imdur 30 mg daily, atorvastatin 20 mg daily, Neurontin 100 mg at bedtime, Norvasc 5 mg daily, PhosLo 1334 mg with meals, Plavix 75 mg daily, Protonix 20 mg daily, Synthroid 50 mcg daily, Tricor 145 mg daily, vancomycin 125 mg p.o. q.i.d. The patient is received dose of Aranesp on 02/07 of 100 mcg during dialysis. She is currently on dialysis four times a week for chronic renal disease. She has status post non-ST elevated NC. She has been treated for acute diverticulitis of the sigmoid colon with history of passive congestion of the liver, urinary tract infection, pneumonia, status post code sepsis presumably related to her NC. Recommendations by Renal, continue current care and medications. Recommendations by Cardiology, conservative management. We will continue to monitor the patient closely and home care plans are in progress. Shavonne Ascencio MD
--- NOTE | 2017-02-08 13:32 | CP.PCM.PN ---
Subjective - Date & Time of Evaluation Date of Evaluation: 02/08/17 Time of Evaluation: 12:00 - Subjective Subjective: Comfortable, not in distress, afebrile. Objective - Vital Signs/Intake and Output Vital Signs (last 24 hours): Temp Pulse Resp BP Pulse Ox 98.5 F 86 20 176/70 H 97 02/08/17 06:00 02/08/17 06:00 02/08/17 06:00 02/08/17 06:00 02/08/17 06:00 Intake and Output: 02/08/17 02/08/17 06:59 18:59 Intake Total 420 Balance 420 - Medications Medications: Current Medications Amlodipine Besylate (Norvasc) 5 mg PO DAILY [facility] PRN Reason: Protocol Last Admin: 02/07/17 10:01 Dose: 5 mg Aspirin (Ecotrin) 81 mg PO 0800 [facility] PRN Reason: Protocol Last Admin: 02/07/17 08:13 Dose: 81 mg Atorvastatin Calcium (Lipitor) 20 mg PO DIN [facility] PRN Reason: Protocol Last Admin: 02/07/17 18:43 Dose: 20 mg Calcium Acetate (Phoslo) 1,334 mg PO WM [facility] PRN Reason: Protocol Last Admin: 02/07/17 18:43 Dose: 1,334 mg Carvedilol (Coreg) 25 mg PO 0800,1800 [facility] PRN Reason: Protocol Last Admin: 02/07/17 18:51 Dose: Not Given Clopidogrel Bisulfate (Plavix) 75 mg PO DAILY [facility] PRN Reason: Protocol Last Admin: 02/07/17 10:02 Dose: 75 mg Fenofibrate (Tricor) 145 mg PO DAILY [facility] PRN Reason: Protocol Last Admin: 02/07/17 10:02 Dose: 145 mg Gabapentin (Neurontin) 100 mg PO HS [facility] PRN Reason: Protocol Last Admin: 02/07/17 22:11 Dose: 100 mg Guaifenesin (Robitussin) 200 mg PO Q4H PRN PRN Reason: Cough and congestion Insulin Human Regular (Humulin R Low) 0 units SC ACHS [facility] PRN Reason: Protocol Last Admin: 02/08/17 06:53 Dose: Not Given Isosorbide Mononitrate (Imdur Er) 30 mg PO 0600,1600 [facility] PRN Reason: Protocol Last Admin: 02/08/17 05:30 Dose: 30 mg Levothyroxine Sodium (Synthroid) 50 mcg PO 0600 [facility] Last Admin: 02/08/17 05:30 Dose: 50 mcg Multi-Ingredient Ointment (Prep-Hem) 0 ea TOP Q12H [facility] Last Admin: 02/08/17 05:31 Dose: 1 applic Ondansetron HCl (Zofran Inj) 4 mg IVP Q6H PRN; Protocol PRN Reason: Nausea/Vomiting Pantoprazole Sodium (Protonix Ec Tab) 20 mg PO 0600 [facility] PRN Reason: Protocol Last Admin: 02/08/17 05:30 Dose: 20 mg Vancomycin HCl (Vancocin 25 Mg/Ml (Oral Use)) 125 mg PO QID [facility] PRN Reason: Protocol Last Admin: 02/07/17 22:11 Dose: 125 mg - Labs Labs: 02/07/17 14:50 02/07/17 14:50 APTT 37.1 Seconds (25.1-36.5) H 02/02/17 12:30 - Constitutional Appears: Non-toxic - Head Exam Head Exam: NORMAL INSPECTION - ENT Exam ENT Exam: Mucous Membranes Moist - Neck Exam Neck Exam: absent: Meningismus - Respiratory Exam Respiratory Exam: Decreased Breath Sounds - Cardiovascular Exam Cardiovascular Exam: +S1, +S2 - GI/Abdominal Exam GI & Abdominal Exam: Soft. absent: Tenderness Assessment and Plan - Assessment and Plan (Free Text) Plan: Assessment Systemic Inflammatory Response Syndrome, consider due to acute NSTEMI, and sepsis due to acute descending colon diverticulitis and bilateral lobe healthcare-associated pneumonia, clinically improving R/O c. diff. colitis E. faecium in the urine, R/O UTI history of healthcare-associated pneumonia (right upper lobe, bilateral lower lobes) HTN DM CAD with chronic CHF ESRD on HD Plan completed 10 days of Cefepime and Flagyl - S/P 7 days of Doxycycline; PCT was elevated on admission at 1.3 but patient has chronic renal failure; continue PO Vancomycin (day 9, for 10-14 days) will continue to follow clinically
--- NOTE | 2017-02-08 15:30 | CP.PCM.PN ---
Subjective - Date & Time of Evaluation Date of Evaluation: 02/08/17 Time of Evaluation: 10:35 - Subjective Subjective: S&E at bedside earlier this am, no diarrhea, abdominal pain, n/V. Tolerating oral intake, no new complaints. Objective - Vital Signs/Intake and Output Vital Signs (last 24 hours): Temp Pulse Resp BP Pulse Ox 97.8 F 60 20 160/44 H 98 02/08/17 12:06 02/08/17 12:06 02/08/17 12:06 02/08/17 12:06 02/08/17 12:06 Intake and Output: 02/08/17 02/08/17 06:59 18:59 Intake Total 420 Balance 420 - Medications Medications: Current Medications Amlodipine Besylate (Norvasc) 5 mg PO DAILY [facility] PRN Reason: Protocol Last Admin: 02/08/17 10:28 Dose: Not Given Aspirin (Ecotrin) 81 mg PO 0800 [facility] PRN Reason: Protocol Last Admin: 02/08/17 08:39 Dose: 81 mg Atorvastatin Calcium (Lipitor) 20 mg PO DIN [facility] PRN Reason: Protocol Last Admin: 02/07/17 18:43 Dose: 20 mg Calcium Acetate (Phoslo) 1,334 mg PO WM [facility] PRN Reason: Protocol Last Admin: 02/08/17 12:32 Dose: 1,334 mg Carvedilol (Coreg) 25 mg PO 0800,1800 [facility] PRN Reason: Protocol Last Admin: 02/08/17 08:39 Dose: 25 mg Clopidogrel Bisulfate (Plavix) 75 mg PO DAILY [facility] PRN Reason: Protocol Last Admin: 02/08/17 10:29 Dose: 75 mg Fenofibrate (Tricor) 145 mg PO DAILY [facility] PRN Reason: Protocol Last Admin: 02/08/17 10:29 Dose: 145 mg Gabapentin (Neurontin) 100 mg PO HS [facility] PRN Reason: Protocol Last Admin: 02/07/17 22:11 Dose: 100 mg Guaifenesin (Robitussin) 200 mg PO Q4H PRN PRN Reason: Cough and congestion Insulin Human Regular (Humulin R Low) 0 units SC ACHS [facility] PRN Reason: Protocol Last Admin: 02/08/17 12:30 Dose: Not Given Isosorbide Mononitrate (Imdur Er) 30 mg PO 0600,1600 [facility] PRN Reason: Protocol Last Admin: 02/08/17 05:30 Dose: 30 mg Levothyroxine Sodium (Synthroid) 50 mcg PO 0600 [facility] Last Admin: 02/08/17 05:30 Dose: 50 mcg Multi-Ingredient Ointment (Prep-Hem) 0 ea TOP Q12H [facility] Last Admin: 02/08/17 05:31 Dose: 1 applic Ondansetron HCl (Zofran Inj) 4 mg IVP Q6H PRN; Protocol PRN Reason: Nausea/Vomiting Pantoprazole Sodium (Protonix Ec Tab) 20 mg PO 0600 [facility] PRN Reason: Protocol Last Admin: 02/08/17 05:30 Dose: 20 mg Vancomycin HCl (Vancocin 25 Mg/Ml (Oral Use)) 125 mg PO QID [facility] PRN Reason: Protocol Last Admin: 02/08/17 13:37 Dose: 125 mg - Labs Labs: 02/08/17 07:00 02/08/17 07:00 APTT 37.1 Seconds (25.1-36.5) H 02/02/17 12:30 - Constitutional Appears: No Acute Distress - Eye Exam Eye Exam: Normal appearance - ENT Exam ENT Exam: Mucous Membranes Moist - Neck Exam Neck Exam: Normal Inspection - Respiratory Exam Respiratory Exam: NORMAL BREATHING PATTERN (no resp distress) - Cardiovascular Exam Cardiovascular Exam: +S1, +S2 - GI/Abdominal Exam GI & Abdominal Exam: Soft, Normal Bowel Sounds (nontender, no oraganomgely) - Extremities Exam Extremities Exam: Normal Capillary Refill (no calf tenderness) Assessment and Plan - Assessment and Plan (Free Text) Assessment: Assessment: Cdiff colitis, antigen positive Improved Abdominal pain, status post CAT scan reporting calcified gallbladder, ultrasound was negative for gallstones. Ct scan report possible cholecystitis, abdominal US also done prior, no pericholecytic fluid or gallstones Mild acute diverticulitis on repeat CT scan Non-ST segment TX History of gastroparesis COPD CHF End-stage renal disease on dialysis Coronary artery disease Plan: Off IV antibiotics continue oral Vancomycin total of 14 days therapy, as of today will be day # 8 Continue PPI continue soft low residual heart healthy moderate carb renal diet. On Plavix & aspirin Monitor H&H Seen and discussed with Dr. Theodore.
--- NOTE | 2017-02-08 16:59 | CP.PCM.PCO ---
Physician Communication Note - Physician Communication Note Physician Communication Note: due to high volume of pts, pt will be seen tomorrow, tessie GOLDBERG
[2017-02-09] MEDS: Pantoprazole 20 mg EC Tab PO SCH (05:42)
[2017-02-09] MEDS: Hemorrohoidal Ointment (2 oz) TOP SCH (05:42)
[2017-02-09] MEDS: Levothyroxine 50 MCG TAB PO SCH (05:42)
[2017-02-09] MEDS: Insulin Reg-LOW-Coverage SC SCH ×2 (06:31→12:27)
[2017-02-09 10:07] VITALS: PULSE 64
[2017-02-09] MEDS: Vancomycin 25 MG/ML PO SCH ×2 (10:13→14:48)
[2017-02-09 11:33] LABS: BASO # 0.01 K/mm3 (0.0-2.0); BASO % 0.2 % (0.0-3.0); EOS % 0.5 % (1.5-5.0); GRAN # 2.69 (1.4-6.5); GRAN % 62.3 % (50.0-68.0); HEMATOCRIT 30.8 % (36.0-48.0); LYMPH # 1.3 (1.2-3.4); LYMPH % 29.4 % (22.0-35.0); MEAN CORPUSCULAR HEMOGLOBIN 32.1 pg (25.0-35.0); MEAN CORPUSCULAR HGB CONC 31.8 g/dl (31.0-37.0); MEAN PLATELET VOLUME 9.6 fl (7.0-11.0); MONO # 0.3 (0.1-0.6); MONO % 7.6 % (1.0-6.0); RED CELL DISTRIBUTION WIDTH 17.7 % (11.5-14.5); WHITE BLOOD COUNT 4.3 10^3/ul (4.5-11.0)
[2017-02-09 11:41] LABS: ALB/GLOB RATIO 0.8 (1.1-1.8); BILIRUBIN,TOTAL 0.8 mg/dL (0.2-1.3); CALCIUM 8.7 mg/dL (8.4-10.5); MAGNESIUM 1.9 mg/dL (1.7-2.2); PHOSPHOROUS 1.7 mg/dL (2.5-4.5); POTASSIUM 4.6 mmol/L (3.6-5.0); TOTAL PROTEIN 7.3 g/dL (5.8-8.3)
--- NOTE | 2017-02-09 13:07 | CP.PCM.PN ---
Subjective - Date & Time of Evaluation Date of Evaluation: 02/09/17 Time of Evaluation: 11:10 - Subjective Subjective: Comfortable, no fevers, no diarrhea. Objective - Vital Signs/Intake and Output Vital Signs (last 24 hours): Temp Pulse Resp BP Pulse Ox 98.3 F 71 20 176/60 H 92 L 02/09/17 06:00 02/09/17 06:00 02/09/17 06:00 02/09/17 06:00 02/09/17 06:00 Intake and Output: 02/09/17 02/09/17 06:59 18:59 Intake Total 420 Balance 420 - Medications Medications: Current Medications Amlodipine Besylate (Norvasc) 5 mg PO DAILY [facility] PRN Reason: Protocol Last Admin: 02/08/17 10:28 Dose: Not Given Aspirin (Ecotrin) 81 mg PO 0800 [facility] PRN Reason: Protocol Last Admin: 02/09/17 08:32 Dose: 81 mg Atorvastatin Calcium (Lipitor) 20 mg PO DIN [facility] PRN Reason: Protocol Last Admin: 02/08/17 18:00 Dose: 20 mg Calcium Acetate (Phoslo) 1,334 mg PO WM [facility] PRN Reason: Protocol Last Admin: 02/09/17 08:34 Dose: 1,334 mg Carvedilol (Coreg) 25 mg PO 0800,1800 [facility] PRN Reason: Protocol Last Admin: 02/09/17 08:40 Dose: Not Given Clopidogrel Bisulfate (Plavix) 75 mg PO DAILY [facility] PRN Reason: Protocol Last Admin: 02/08/17 10:29 Dose: 75 mg Fenofibrate (Tricor) 145 mg PO DAILY [facility] PRN Reason: Protocol Last Admin: 02/08/17 10:29 Dose: 145 mg Gabapentin (Neurontin) 100 mg PO HS [facility] PRN Reason: Protocol Last Admin: 02/08/17 21:20 Dose: 100 mg Guaifenesin (Robitussin) 200 mg PO Q4H PRN PRN Reason: Cough and congestion Insulin Human Regular (Humulin R Low) 0 units SC ACHS [facility] PRN Reason: Protocol Last Admin: 02/09/17 06:31 Dose: Not Given Isosorbide Mononitrate (Imdur Er) 30 mg PO 0600,1600 [facility] PRN Reason: Protocol Last Admin: 02/09/17 05:42 Dose: 30 mg Levothyroxine Sodium (Synthroid) 50 mcg PO 0600 [facility] Last Admin: 02/09/17 05:42 Dose: 50 mcg Multi-Ingredient Ointment (Prep-Hem) 0 ea TOP Q12H [facility] Last Admin: 02/09/17 05:42 Dose: 1 applic Ondansetron HCl (Zofran Inj) 4 mg IVP Q6H PRN; Protocol PRN Reason: Nausea/Vomiting Pantoprazole Sodium (Protonix Ec Tab) 20 mg PO 0600 [facility] PRN Reason: Protocol Last Admin: 02/09/17 05:42 Dose: 20 mg Vancomycin HCl (Vancocin 25 Mg/Ml (Oral Use)) 125 mg PO QID [facility] PRN Reason: Protocol Last Admin: 02/08/17 21:20 Dose: 125 mg - Labs Labs: 02/08/17 07:00 02/08/17 07:00 APTT 37.1 Seconds (25.1-36.5) H 02/02/17 12:30 - Constitutional Appears: Non-toxic - Head Exam Head Exam: NORMAL INSPECTION - ENT Exam ENT Exam: Mucous Membranes Moist - Neck Exam Neck Exam: absent: Meningismus - Respiratory Exam Respiratory Exam: Decreased Breath Sounds - Cardiovascular Exam Cardiovascular Exam: +S1, +S2 - GI/Abdominal Exam GI & Abdominal Exam: Soft. absent: Tenderness Assessment and Plan - Assessment and Plan (Free Text) Plan: Assessment Systemic Inflammatory Response Syndrome, consider due to acute NSTEMI, and sepsis due to acute descending colon diverticulitis and bilateral lobe healthcare-associated pneumonia, clinically improving R/O c. diff. colitis E. faecium in the urine, R/O UTI history of healthcare-associated pneumonia (right upper lobe, bilateral lower lobes) HTN DM CAD with chronic CHF ESRD on HD Plan completed 10 days of Cefepime and Flagyl - S/P 7 days of Doxycycline; PCT was elevated on admission at 1.3 but patient has chronic renal failure; continue PO Vancomycin (day 10, can d/c today)
[2017-02-09 16:27] VITALS: BP 195/64; RESP 18; TEMP 98; O2SAT 97
--- NOTE | 2017-02-09 17:47 | CP.PCM.PCO ---
Physician Communication Note - Physician Communication Note Physician Communication Note: pt was on HD today, this write came back to talk to the pt, but pt was d/c
--- NOTE | 2017-02-10 01:43 | DS ---
HISTORY OF PRESENT ILLNESS: This is an 82-year-old female with history of non-STEMI, diverticulitis of the sigmoid colon, positive C. diff antigen, chronic kidney disease on dialysis 4 times a week, hyperlipidemia, non-insulin dependent diabetes, hypertension, atherosclerotic heart disease, carotid disease and arthritis. The patient was on the transitional care unit, receiving occupational and physical therapy. She was being followed by GI, Infectious Disease, Renal. Conservative management was recommended by Cardiology. She will be followed as an outpatient by Nephrology, Internal Medicine and Renal. She will be on Coreg 25 mg b.i.d, Ecotrin 81 mg daily, fingerstick insulin at home, Imdur 30 mg b.i.d., Lipitor 20 mg daily, Neurontin 100 mg at bedtime, Norvasc 5 mg daily, PhosLo 1334 mg with meals, Plavix 75 mg daily, Imidil cream p.r.n., Protonix 20 mg daily, Synthroid 50 mcg daily, TriCor 145 mg daily, vancomycin to complete a course of 10 days. Her labs on discharge showed a WBC of 4.3, RBC 3.05, hemoglobin 9.8, hematocrit 30.8, platelet count 105,000. Chemistry showed pre-dialysis; sodium 137, potassium 4.6, chloride 99, CO2 of 28, BUN is 43, creatinine is 5.6, random blood sugar was 143. Her calcium was 8.7, her phosphorus was 1.7. She will be followed as an outpatient. This has been discussed with the family. She had a living will. Shavonne Ascencio MD
--- NOTE | 2017-02-10 11:48 | PN ---
DATE: 02/09/2017 SUBJECTIVE: The patient is seen in the dialysis unit. She is awake, she is alert, she is comfortable. PHYSICAL EXAMINATION: GENERAL EXAMINATION: Elderly lady, lying in chair in the dialysis unit. VITAL SIGNS: Blood pressure 163/54, heart rate 64, respiratory rate 18 and temperature 98. HEENT: Normocephalic, atraumatic, positive pallor. NECK: Supple. No JVD. LUNGS: Bilateral equal air entry, basal rales. No rhonchi. CARDIAC: S1 and S2, regular rate and rhythm. No murmur. No rub. ABDOMEN: Soft, nondistended, nontender, bowel sounds present. EXTREMITIES: No lower extremity edema. INTAKE AND OUTPUT: Not charted. LABORATORY DATA: WBC 4.3, hemoglobin 9.8, hematocrit 30.8 and platelets 105. Sodium 137, potassium 4.6, chloride 99, CO2 of 28, BUN 43, creatinine 5.6, glucose 143. Calcium 8.7, phosphorus 1.7 magnesium 1.9. MEDICATIONS: List reviewed. ASSESSMENT: 1. End-stage renal disease. 2. Net-[id number] diabetes mellitus. 3. Hypertension. 4. Anemia of chronic kidney disease. 5.?Depression. PLAN: 1. Stable dialysis. 2. Continue to monitor fingersticks. 3. Psychiatric evaluation recommended. 4. No objection to discharge. Barbi Linares MD
== END 2017-02-09 17:25 | disposition home health service (06) | DRG 871 ==
LOC: TRCU 15:57
PROVIDERS: ADMIT Internal Medicine; ATTEND Internal Medicine
PROC: F07Z9FZ Gait Training/Functional Ambulation Treatment using Assistive, Adaptive, Supportive or Protective Equipment (ICD-10-PCS; principal; 2017-02-02)
PROC: F08Z4FZ Home Management Treatment using Assistive, Adaptive, Supportive or Protective Equipment (ICD-10-PCS; 2017-02-02)
PROC: 5A1D70Z Performance of Urinary Filtration, Intermittent, Less than 6 Hours Per Day (ICD-10-PCS; 2017-02-03)
DX: A41.9 Sepsis, unspecified organism (principal); J18.9 Pneumonia, unspecified organism; K57.32 Diverticulitis of large intestine without perforation or abscess without bleeding; I21.4 Non-ST elevation (NSTEMI) myocardial infarction; A04.72 Enterocolitis due to Clostridium difficile, not specified as recurrent; Z79.2 Long term (current) use of antibiotics; I13.2 Hypertensive heart and chronic kidney disease with heart failure and with stage 5 chronic kidney disease, or end stage renal disease; K81.0 Acute cholecystitis; J44.0 Chronic obstructive pulmonary disease with (acute) lower respiratory infection; N18.6 End stage renal disease; I42.9 Cardiomyopathy, unspecified; N25.81 Secondary hyperparathyroidism of renal origin; E11.22 Type 2 diabetes mellitus with diabetic chronic kidney disease; E11.42 Type 2 diabetes mellitus with diabetic polyneuropathy; K31.84 Gastroparesis; I25.10 Atherosclerotic heart disease of native coronary artery without angina pectoris; E11.43 Type 2 diabetes mellitus with diabetic autonomic (poly)neuropathy; Z99.2 Dependence on renal dialysis; I50.9 Heart failure, unspecified; K21.9 Gastro-esophageal reflux disease without esophagitis; E03.9 Hypothyroidism, unspecified; E78.5 Hyperlipidemia, unspecified; I48.0 Paroxysmal atrial fibrillation; D63.1 Anemia in chronic kidney disease; K76.1 Chronic passive congestion of liver; Y95 Nosocomial condition; K29.70 Gastritis, unspecified, without bleeding; Z95.5 Presence of coronary angioplasty implant and graft

== ENCOUNTER 2017-02-19 16:43 | Inpatient (IN) | payer OTHER ==
[2017-02-13 14:48] VITALS: BMI 25.6
[2017-02-19] MEDS: Vancomycin 25 MG/ML PO SCH ×2 (18:12→22:09)
[2017-02-20] MEDS: Pantoprazole 20 mg EC Tab PO SCH (05:40)
[2017-02-20] MEDS: Levothyroxine 50 MCG TAB PO SCH (05:40)
[2017-02-20] MEDS: Vancomycin 25 MG/ML PO SCH ×4 (10:18→21:58)
--- NOTE | 2017-02-20 12:29 | CP.PCM.PN ---
Subjective - Date & Time of Evaluation Date of Evaluation: 02/20/17 Time of Evaluation: 09:50 - Subjective Subjective: Seen and examined at the bedside earlier today, patient denies nausea, vomiting , or abdominal pain. Reportedly soft stools, no reports of overt GI bleed. No acute overnight events reported. Objective - Vital Signs/Intake and Output Vital Signs (last 24 hours): Temp Pulse Resp BP Pulse Ox 98.8 F 93 H 18 112/51 L 98 02/20/17 10:50 02/20/17 10:50 02/20/17 10:50 02/20/17 10:50 02/20/17 06:00 Intake and Output: 02/20/17 02/20/17 06:59 18:59 Intake Total 120 Balance 120 - Medications Medications: Current Medications Amlodipine Besylate (Norvasc) 5 mg PO DAILY [facility] PRN Reason: Protocol Last Admin: 02/20/17 10:15 Dose: Not Given Aspirin (Aspirin Chewable) 81 mg PO DAILY [facility] PRN Reason: Protocol Last Admin: 02/20/17 10:15 Dose: 81 mg Atorvastatin Calcium (Lipitor) 20 mg PO DIN [facility] PRN Reason: Protocol Carvedilol (Coreg) 25 mg PO 0800,1800 [facility] PRN Reason: Protocol Last Admin: 02/20/17 07:58 Dose: 25 mg Clopidogrel Bisulfate (Plavix) 75 mg PO DAILY [facility] PRN Reason: Protocol Last Admin: 02/20/17 10:16 Dose: 75 mg Darbepoetin Zack (Aranesp) 100 mcg IVP TH [facility] PRN Reason: Protocol Fenofibrate (Tricor) 145 mg PO DAILY [facility] PRN Reason: Protocol Last Admin: 02/20/17 10:17 Dose: 145 mg Gabapentin (Neurontin) 100 mg PO HS [facility] PRN Reason: Protocol Last Admin: 02/19/17 22:08 Dose: 100 mg Isosorbide Mononitrate (Imdur Er) 30 mg PO 0600 [facility] PRN Reason: Protocol Last Admin: 02/20/17 05:40 Dose: 30 mg Levothyroxine Sodium (Synthroid) 50 mcg PO 0600 [facility] PRN Reason: Protocol Last Admin: 02/20/17 05:40 Dose: 50 mcg Pantoprazole Sodium (Protonix Ec Tab) 20 mg PO 0600 [facility] PRN Reason: Protocol Last Admin: 02/20/17 05:40 Dose: 20 mg Vancomycin HCl (Vancocin 25 Mg/Ml (Oral Use)) 250 mg PO QID [facility] PRN Reason: Protocol Last Admin: 02/20/17 10:18 Dose: 250 mg - Constitutional Appears: No Acute Distress - Eye Exam Eye Exam: Normal appearance. absent: Scleral icterus - ENT Exam ENT Exam: Mucous Membranes Moist - Neck Exam Neck Exam: Normal Inspection - Cardiovascular Exam Cardiovascular Exam: +S1, +S2 - GI/Abdominal Exam GI & Abdominal Exam: Soft, Normal Bowel Sounds. absent: Guarding, Tenderness, Rebound - Extremities Exam Extremities Exam: absent: Calf Tenderness, Pedal Edema - Neurological Exam Neurological Exam: Alert, Awake, Oriented x3 - Skin Skin Exam: Dry, Warm Assessment and Plan - Assessment and Plan (Free Text) Assessment: Assessment: Recurrent CDiff, (+) antigen and toxin, resolving Diarrhea Congestive heart failure End-stage renal disease on dialysis Coronary artery disease status post stent Gallstones Diabetes mellitus History of hypothyroidism Plan: Diet as tolerated continue PPI on Plavix on oral vancomycin Seen and discussed with Dr. Theodore.
--- NOTE | 2017-02-21 04:27 | HP ---
HISTORY OF PRESENT ILLNESS: An 82-year-old female with chronic renal failure, recent non-ST MA, recent decompensated CHF with an underlying history of hypothyroid disease, carotid disease, atherosclerotic heart disease, hyperlipidemia, and non-insulin dependent diabetes, currently on the Transitional Care Unit for occupational and physical therapy, and she continues on vancomycin for positive C. diff. infection. PHYSICAL EXAMINATION: VITAL SIGNS: Her temp is 98.8, her pulse is 93. Her blood pressure is 112/51 at this time. GENERAL: She is alert and oriented x3. NECK: Supple. LUNGS: Clear. HEART: S1 and S2 rhythm. ABDOMEN: Soft, scaphoid with positive bowel sounds. EXTREMITIES: No evidence of edema. SOCIAL HISTORY: She is a nonsmoker, nondrinker, nondrug user. ALLERGIES: SHE HAS AN ALLERGY TO CEFTRIAXONE. CURRENT MEDICATIONS: Consists of Ecotrin 81 mg daily, Coreg 25 mg twice a day, Imdur 30 mg daily, Lipitor 20 mg daily, Neurontin 100 mg at bedtime, Norvasc 5 mg daily, PhosLo 667 mg with meals, Plavix 75 mg daily, ProAmatine 5 mg daily, Protonix 20 mg daily, Synthroid 50 mcg daily, TriCor 145 mg daily, and vancomycin 250 q.i.d. She will continue to be followed by GI and Nephrology. Will continue on dialysis with occupational and physical therapy. The clinical status has been discussed with the staff as well as with the family. Shavonne Ascencio MD
[2017-02-21] MEDS: Pantoprazole 20 mg EC Tab PO SCH (05:48)
[2017-02-21] MEDS: Levothyroxine 50 MCG TAB PO SCH (05:48)
--- NOTE | 2017-02-21 08:18 | PN ---
DATE: 02/20/2017 SUBJECTIVE: The patient is currently seen in the TCU, lying supine in bed. The patient apparently had difficulty with physical therapy today secondary to dizziness and orthostatic hypotension. Her systolic blood pressure dropped to 40 mmHg, her diastolic blood pressure dropped 4 mm. The patient's physical therapy session was shortened. MEDICATIONS: Medication list reviewed. The patient is currently on Aranesp, aspirin, Coreg, Isordil, Lipitor, Neurontin, amlodipine, Plavix, Protonix, Levoxyl, TriCor, and oral vancomycin. OBJECTIVE VITAL SIGNS: Blood pressure supine 144/46 sitting, 140/44 standing. The patient was dizzy 105/42. Pulse as noted above, 93. Temperature 98.8, respiratory rate 18. Pulse ox 98%. HEENT: Normocephalic, atraumatic. Conjunctivae are pale. Sclerae nonicteric. NECK: Supple. No neck vein distention. CHEST: Clear to auscultation and percussion with no rales or rhonchi or wheezing. CARDIOVASCULAR: Shows an irregular rate and rhythm with MR/TR. No rub. No S3. No S4. ABDOMEN: Soft. Bowel sounds normal. No rebound or guarding. EXTREMITIES: No lower extremity edema with the patient lying supine in bed. AV fistula, left upper extremity. Positive thrill. Positive bruit. LABORATORY DATA AND IMAGING: No labs today. Predialysis labs yesterday white cell count 5.4, hemoglobin 9.9 with a platelet count 149,000. Potassium was 5.1. BUN was 81 with a creatinine of 7.7. Calcium was 7.6, corrects to normal for a low albumin level. Phosphorus is now back to 6.0. Microbiology from acute care, stools are positive for C. Diff. ASSESSMENT: 1. Status post congestive heart failure with hypervolemia. The patient will continue four times a week dialysis. We will try and ultrafiltrate her as much as possible blood pressure permitting. 2. Dizziness today with orthostatic hypotension. The patient needs to be able to participate in physical therapy. I will start her on Proamatine 5 mg, 30 minutes prior to physical therapy to see if she could maintain higher standing systolic blood pressures. She did have a 40 mm systolic blood pressure drop. 3. Status post cholecystitis and diverticulitis from past admission. 4. Positive pseudomembranous colitis. Stools are positive for Clostridium difficile. The patient will complete a course of oral vancomycin therapy. No further diarrhea. 4. End-stage renal disease. The patient will continue four times a week dialysis. 5. History of secondary hyperparathyroidism. I will restart the patient back on PhosLo 667 mg three times a day with meals. This will help lower her phosphorus level 6.6 back into a normal range. When she received the double dose, she went low on her phosphorus too low down to 2.0. 6. History of mild anemia. Continue Aranesp per protocol. 7. History of hypertension. Blood pressure is apparently well controlled with the patient being on dialysis four times a week. She will continue on calcium channel leandro therapy and will hold blood pressure medication on dialysis days. 8. Hypothyroidism. Continue thyroid replacement therapy. PLAN: 1. Discussed with Dr. Ascencio discussed with staff in the TCU. We will try Proamatine 5 mg prior to physical therapy to see whether or not she is less dizzy and less orthostatic. If she tolerates this well, perhaps she could receive Proamatine on a regular basis when she will be up right. 2. Complete course of oral vancomycin for C. diff colitis. 3. Okay to continue low-dose calcium channel leandro therapy for hypertension. 4. Restart the patient back on PhosLo 667 mg three times a day with meals and continue renal diet. 5. Hemodialysis scheduled for tomorrow morning. Buck Yanes MD MELANIE
[2017-02-21] MEDS: Vancomycin 25 MG/ML PO SCH ×4 (11:00→21:30)
--- NOTE | 2017-02-21 11:35 | PN ---
DATE: SUBJECTIVE: An 82-year-old female in transitional care unit, receiving occupational, physical therapy. She is on dialysis 4 times a week and she is currently taking vancomycin for C. diff infection. PHYSICAL EXAMINATION: VITAL SIGNS: She has temperature of 98.3, her blood pressure is 142/63, her respiratory rate is 18, her oxygen sat is 99% on nasal cannula 2 L. GENERAL: She is alert, oriented x3. NECK: Supple. There is no JVD. LUNGS: Have diminished breath sounds at the bases. HEART: S1 and S2 rhythm. ABDOMEN: Soft, positive bowel sounds. EXTREMITIES: Show no evidence of edema. LABORATORY DATA: Her laboratory data is pending. She is going for dialysis during which time blood workup will be done. MEDICATIONS: Currently, she is on Ecotrin 81 mg daily, Coreg 25 mg b.i.d., Imdur 30 mg daily, atorvastatin 20 mg daily, Neurontin 100 mg at bedtime, amlodipine 5 mg daily, PhosLo 667 mg with meals, ProAmatine 5 mg daily, Protonix 20 mg daily, Synthroid 50 mcg daily, TriCor 145 mg daily, and vancomycin 250 mg p.o. q.i.d. PLAN: Continue current level of supportive care. Shavonne Ascencio MD
[2017-02-22] MEDS: Levothyroxine 50 MCG TAB PO SCH (05:52)
[2017-02-22] MEDS: Pantoprazole 20 mg EC Tab PO SCH (05:52)
[2017-02-22] MEDS: Vancomycin 25 MG/ML PO SCH ×4 (10:37→21:41)
--- NOTE | 2017-02-22 12:51 | PN ---
DATE: 02/21/2017 SUBJECTIVE: The patient is seen in the dialysis unit. She is awake. She is alert. She complains of not feeling well. PHYSICAL EXAMINATION: GENERAL: Elderly lady sitting in chair in the dialysis unit. VITAL SIGNS: Blood pressure 139/50, heart rate 70, respiratory rate 18, temperature 98.3. HEENT: Normocephalic, atraumatic. NECK: Supple, no JVD. LUNGS: Bilateral equal air entry, bilateral equal expansion. CARDIAC: S1 and S2, rhythm rate and rhythm. No murmur, no rub. ABDOMEN: Soft, nondistended, nontender, bowel sounds present. EXTREMITIES: No lower extremity edema. INTAKE AND OUTPUT: Not charted. LABORATORY DATA: No new labs. MEDICATIONS: List reviewed. ASSESSMENT/PLAN: 1. End-stage renal disease. 2. Hypertension. 3. Ggw-bjnkoey-zwehibqax diabetes mellitus. 4. Coronary artery disease, congestive heart failure. 5. Anemia of chronic kidney disease. PLAN: 1. Stable dialysis. 2. Continue current antihypertensives. 3. Continue fingerstick monitoring. 4. Physical therapy. Barbi Linares MD
[2017-02-22] MEDS ORDERED: Darbepoetin Alfa 100 mcg/ml Inj IVP SCH (17:01)
--- NOTE | 2017-02-22 17:49 | PN ---
SUBJECTIVE: An 82-year-old female on transitional care unit, receiving occupational and physical therapy and also receiving vancomycin treatment for C. diff infection and receiving dialysis 4 times a week. She has chronic renal disease, hypothyroid disease, hyperlipidemia, coronary artery disease, recent non-ST myocardial infarction, orthostatic hypotension, history of left hip surgery, and chronic anemia of renal disease. LABORATORY DATA: Showed a blood sugar of 189 this morning. PHYSICAL EXAMINATION: LUNG: Show rhonchi. HEART: S1 and S2 rhythm. ABDOMEN: soft with positive bowel sounds. EXTREMITIES: Show no evidence of edema. NEUROLOGIC: She is alert and oriented x3. We will continue current level of care. Shavonne Ascencio MD
--- NOTE | 2017-02-23 00:54 | PN ---
DATE: 02/22/2017 SUBJECTIVE: This patient was seen and evaluated earlier today, but doing much better now, ambulating well. PHYSICAL EXAMINATION: VITAL SIGNS: Afebrile, blood pressure is 149/46, pulse 66, and respirations 20. HEENT: Atraumatic, anicteric. NECK: Supple. HEART: S1 and S2 heard. LUNGS: Bilateral air entry present. ABDOMEN: Soft. There is minimal tenderness on deep palpation at the left lower quadrant area, otherwise unremarkable. IMPRESSION: This is an 82-year-old patient with end-stage renal disease, has Clostridium difficile on p.o. vancomycin, history of chronic congestive heart failure and the patient has congestive hepatomegaly. The patient to complete the vancomycin course. Follow up in 2 weeks. Thank you very much for allowing me to participate in the care of the patient. Ysabel Theodore MD
[2017-02-23] MEDS: Pantoprazole 20 mg EC Tab PO SCH (05:31)
[2017-02-23] MEDS: Levothyroxine 50 MCG TAB PO SCH (05:31)
[2017-02-23] MEDS: Vancomycin 25 MG/ML PO SCH ×4 (10:10→21:55)
--- NOTE | 2017-02-23 20:05 | PN ---
SUBJECTIVE: The patient is seen lying in bed. She is complaining of feeling dizzy. She is complaining of being lightheaded. She does not feel well. She denies any chest tightness, palpitations. PHYSICAL EXAMINATION GENERAL: Elderly lady lying in bed. VITAL SIGNS: Blood pressure 103/60, heart rate 82, respiratory rate 18, temperature 97.7. HEENT: Normocephalic, atraumatic. NECK: Supple, no JVD. LUNGS: Bilateral equal entry, no rales. EXTREMITIES: No lower extremity edema. LABORATORY DATA: No new labs available. CURRENT MEDICATIONS: List reviewed. ASSESSMENT: 1. Hypotension, dizziness. 2. Noninsulin-dependent diabetes mellitus. 3. Hypertension. 4. End-stage renal disease. PLAN: 1. Hold dialysis today. 2. Hold antihypertensives. 3. Dialysis tomorrow. Barbi Linares MD
--- NOTE | 2017-02-23 20:31 | PN ---
DATE: SUBJECTIVE: This is an 82-year-old female, who is on the Transitional Care Unit. She is on dialysis four times a day. She is being followed by Nephrology for her chronic renal disease. She is being followed by GI for positive C. diff. infection. CURRENT MEDICATION: Consist of Ecotrin 81 mg daily, Coreg 25 mg twice a day, Imdur 30 mg daily, Lipitor 20 mg daily, Neurontin 100 mg at bedtime, Norvasc 5 mg daily, PhosLo 667 mg with meals, Plavix 75 mg daily, ProAmatine 5 mg daily. LABORATORY DATA: Her blood sugar this morning was 139. ASSESSMENT AND PLAN: She has bmh-xoawvvr-ngqwmrdbj diabetes, chronic kidney disease, atherosclerotic heart disease, aortic stenosis, carotid disease, remote left hip fracture surgery, chronic obstructive pulmonary disease, hyperlipidemia, hypothyroid disease. She will continue her current medications at this time and will be followed while she continues her vancomycin 250 p.o. q.i.d. Shavonne Ascencio MD
--- NOTE | 2017-02-23 23:49 | PN ---
DATE: 02/23/2017 SUBJECTIVE: This patient was seen and evaluated earlier today. The patient was feeling weak today. The patient did not have any dialysis, as the pressure was found to be slightly on the low side 98/43. PHYSICAL EXAMINATION: VITAL SIGNS: Temperature is 97.7, pulse 87, respirations 18. HEENT: Atraumatic, anicteric. NECK: Supple. HEART: S1 and S2 heard. LUNGS: Bilateral air entry present. ABDOMEN: Soft. There is no mass palpable. No tenderness. There is mild tenderness on deep palpation in the left upper quadrant area and left lower quadrant area. Otherwise, the patient feels much improved. IMPRESSION: This is an 82-year-old patient with a history of end-stage renal disease, on hemodialysis, coronary artery disease, congestive heart failure, most likely left upper quadrant area. The patient has diarrhea, Clostridium difficile positive, on p.o. vancomycin and we will continue that. Continue to . Thank you very much for allowing us to participate in the care of the patient. Ysabel Theodore MD
[2017-02-24] MEDS: Levothyroxine 50 MCG TAB PO SCH (06:32)
[2017-02-24] MEDS: Pantoprazole 20 mg EC Tab PO SCH (06:32)
[2017-02-24] MEDS: Vancomycin 25 MG/ML PO SCH ×4 (11:10→21:32)
[2017-02-24 15:01] LABS: BASO # 0.01 K/mm3 (0.0-2.0); BASO % 0.1 % (0.0-3.0); EOS % 0.4 % (1.5-5.0); GRAN # 4.88 (1.4-6.5); GRAN % 66.2 % (50.0-68.0); HEMATOCRIT 31.3 % (36.0-48.0); LYMPH % 26.8 % (22.0-35.0); MEAN CELL VOLUME 98.4 fl (80.0-105.0); MEAN CORPUSCULAR HEMOGLOBIN 32.1 pg (25.0-35.0); MEAN CORPUSCULAR HGB CONC 32.6 g/dl (31.0-37.0); MEAN PLATELET VOLUME 9.6 fl (7.0-11.0); MONO # 0.5 (0.1-0.6); MONO % 6.5 % (1.0-6.0); RED CELL DISTRIBUTION WIDTH 15.6 % (11.5-14.5); WHITE BLOOD COUNT 7.4 10^3/ul (4.5-11.0)
--- NOTE | 2017-02-24 15:06 | PN ---
DATE: SUBJECTIVE: The patient is sitting comfortably in her room this morning. She states that she is feeling a bit better. Nursing staff relates that there are no problems during the night. PHYSICAL EXAMINATION: GENERAL: She is alert and oriented x3. VITAL SIGNS: Temperature is 97.2, her pulse is 66, the blood pressure is 148/42, the respiratory rate is 20, the oxygen saturation is 97%. NECK: Supple. HEART: Has an S1 and S2 rhythm. ABDOMEN: Soft, scaphoid with positive bowel sounds. EXTREMITIES: No evidence of edema. LABORATORY DATA: Fingerstick blood sugar was 125 . ASSESSMENT AND PLAN: The patient is receiving vancomycin p.o. which was started on 02/19/2017 for positive Clostridium difficile infection. She is receiving occupational physical therapy and dialysis. We will continue to monitor the patient closely while she receives the therapy. She is being followed by Nephrology. Shavonne Ascencio MD
[2017-02-24 15:12] LABS: ALB/GLOB RATIO 0.8 (1.1-1.8); BILIRUBIN,TOTAL 0.7 mg/dL (0.2-1.3); MAGNESIUM 1.9 mg/dL (1.7-2.2); PHOSPHOROUS 4.8 mg/dL (2.5-4.5); POTASSIUM 5.5 mmol/L (3.6-5.0); TOTAL PROTEIN 8.2 g/dL (5.8-8.3)
--- NOTE | 2017-02-24 21:07 | PN ---
DATE: 02/24/2017 SUBJECTIVE: This patient was seen and evaluated earlier on exam. PHYSICAL EXAMINATION VITAL SIGNS: Temperature 97.8, blood pressure 148/42, pulse 66, and respirations 18. HEENT: Atraumatic and anicteric. NECK: Supple. HEART: S1 and S2 heard. LUNGS: Bilateral air entry present. ABDOMEN: Soft. Minimal tenderness on the left lower quadrant area. ASSESSMENT AND PLAN: Overall, she is improved. End-stage renal disease, on hemodialysis; congestive heart failure; history of chronic right upper quadrant pain, probably secondary to hepatic congestion; diarrhea; Clostridium difficile positive, on p.o. vancomycin. The patient is on pantoprazole, history of peptic ulcer disease, Plavix and aspirin, on p.o. vancomycin. We will recommend to complete two weeks therapy of p.o. vancomycin. Thank you very much for allowing us to participate in the care of the patient. Ysabel Theodore MD
[2017-02-25] MEDS: Pantoprazole 20 mg EC Tab PO SCH (05:33)
[2017-02-25] MEDS: Levothyroxine 50 MCG TAB PO SCH (05:33)
[2017-02-25] MEDS: Vancomycin 25 MG/ML PO SCH ×3 (10:49→17:44)
--- NOTE | 2017-02-25 12:20 | PN ---
DATE: SUBJECTIVE: An 82-year-old female on Transitional Care Unit. Nursing staff relates that there are no problems during the night or day. PHYSICAL EXAMINATION: GENERAL: She is alert and oriented x3. VITAL SIGNS: Show temperature of 97.9, pulse is 65, blood pressure is 168/54, respiratory rate 17, oxygen saturation is 97%. NECK: Supple. No JVD. HEART: S1 and S2. LUNGS: Clear. Diminished breath sounds at the bases. ABDOMEN: Soft, scaphoid. Positive bowel sounds. EXTREMITIES: No evidence of edema. CURRENT MEDICATIONS: Consist of Ecotrin 81 mg daily, Coreg 25 mg b.i.d., Imdur 30 mg daily, Lipitor 20 mg daily, Neurontin 100 mg at bedtime, Norvasc 5 mg daily, PhosLo 667 mg with meals, Plavix 75 mg daily, midodrine 5 mg daily, Protonix 20 mg daily, Synthroid 50 mcg daily, TriCor 145 mg daily, vancomycin 250 mg p.o. q.i.d. The patient is receiving vancomycin for positive C. diff infection. She is on dialysis 4 times a week for chronic renal disease. ASSESSMENT AND PLAN: She has hyperlipidemia, hypothyroid disease. mbd-bbcllqp-bvztogdqi diabetes, aortic stenosis, arteriosclerotic heart disease, carotid disease. She is currently receiving occupational and physical therapy and will be followed by Nephrology. Shavonne Ascencio MD
[2017-02-25 16:15] VITALS: RESP 18
--- NOTE | 2017-02-25 18:17 | PN ---
DATE: 02/24/2017 SUBJECTIVE: The patient is seen sitting in chair. She is awake, she is alert. She is coming back from dialysis. She does not appear to be in any kind of distress. PHYSICAL EXAMINATION: VITAL SIGNS: Blood pressure 136/54, heart rate 94, respiratory rate 18, temperature 97.2. HEENT: Normocephalic, atraumatic. NECK: Supple, no JVD. LUNGS: Bilateral equal air entry. EXTREMITIES: No lower extremity edema. LABORATORY DATA: WBC 7, hemoglobin 10, hematocrit 31, and platelets 199. Sodium 134, potassium 5.5, chloride 92, CO2 of 24, BUN 114, creatinine 8.5, glucose 108, calcium 9.0, phosphorus 4.8, magnesium 1.9, and albumin 3.8. MEDICATIONS: List reviewed. ASSESSMENT: 1. End-stage renal disease. 2. Odx-pfarfnq-tgwdsplym diabetes mellitus. 3. Hypertension. 4. Coronary artery disease/congestive heart failure. 5. Anemia. PLAN: 1. Stable dialysis. 2. Continue physical therapy. 3. Hold antihypertensives for the time being. 4. Change Coreg to 6.25 b.i.d. Barbi Linares MD
[2017-02-26] MEDS: Pantoprazole 20 mg EC Tab PO SCH (05:18)
[2017-02-26] MEDS: Levothyroxine 50 MCG TAB PO SCH (05:18)
[2017-02-26 12:22] VITALS: O2SAT 97
--- NOTE | 2017-02-26 18:10 | PN ---
DATE: 02/26/2017 SUBJECTIVE: The patient is seen sitting in chair. She is awake. She is alert. She is comfortable. She denies any pain. PHYSICAL EXAMINATION: GENERAL: Elderly lady sitting in chair. VITAL SIGNS: Blood pressure 135/68, heart rate 88, respiratory rate 18, temperature 98.6. HEENT: Normocephalic, atraumatic. NECK: Supple, no JVD. LUNGS: Bilateral equal air entry, no rales. EXTREMITIES: No lower extremity edema. LABORATORY DATA: No new labs. MEDICATIONS: Aranesp, aspirin, Coreg 6.25 b.i.d., Imdur 30, Lipitor, gabapentin, PhosLo, Plavix, ProAmatine 5 mg daily, Protonix, Synthroid, and TriCor. ASSESSMENT/PLAN: 1. Discontinue amlodipine. 2. Continue Coreg at lower dose. 3. Continue ProAmatine for now. 4. Dialysis today. 5. Monitor fingerstick and continue insulin coverage. 6. Physical therapy. Barbi Linares MD
[2017-02-26] MEDS: Vancomycin 25 MG/ML PO SCH ×2 (18:40→21:40)
--- NOTE | 2017-02-26 18:55 | PN ---
DATE: 02/26/2017 SUBJECTIVE: This patient was seen and evaluated earlier today. The patient is comfortable. No abdominal pain, no diarrhea now. Tolerating the diet. PHYSICAL EXAMINATION: VITAL SIGNS: Temperature is 98.7, blood pressure is 140/46 and pulse 88. HEENT: Atraumatic and anicteric. NECK: Supple. HEART: S1 and S2 regular. LUNGS: Bilateral air entry present. ABDOMEN: Soft. There is no tenderness in the left lower quadrant area, significant improvement. IMPRESSION: The patient is on p.o. vancomycin. PLAN: Complete the 14 days' treatment with the p.o. vancomycin. Thank you very much for allowing me to participate in the care of the patient. Ysabel Theodore MD
--- NOTE | 2017-02-26 19:47 | PN ---
DATE: SUBJECTIVE: An 82-year-old female on Transitional Care Unit, receiving Occupational and Physical Therapy. She is on dialysis 4 times a week. She has a past medical history of hypothyroid disease, non-ST CO, volume overload, CHF, decompensated, chronic kidney disease, hypothyroid disease, hyperlipidemia, jmp-axefdxi-wsudzalbs diabetes. PHYSICAL EXAMINATION GENERAL: She is alert, oriented x3. VITAL SIGNS: Blood pressure 135/68, pulse 88, oxygen saturation 97% on room air, temperature 98.6. NECK: Supple. LUNGS: Show diminished breath sound at the bases. HEART: S1 and S2. ABDOMEN: Soft, scaphoid. Positive bowel sounds. EXTREMITIES: No evidence of edema. ASSESSMENT AND PLAN: The patient is scheduled for dialysis today. She continues to be followed by Nephrology. We will continue current level of care at this time and follow the patient closely. Shavonne Ascencio MD
[2017-02-27] MEDS: Pantoprazole 20 mg EC Tab PO SCH (06:04)
[2017-02-27] MEDS: Levothyroxine 50 MCG TAB PO SCH (06:04)
[2017-02-27 06:41] VITALS: TEMP 98
[2017-02-27 08:55] VITALS: BP 113/50; PULSE 99
[2017-02-27] MEDS: Vancomycin 25 MG/ML PO SCH ×2 (10:48→13:21)
--- NOTE | 2017-02-27 11:07 | CP.PCM.PN ---
Subjective - Date & Time of Evaluation Date of Evaluation: 02/27/17 Time of Evaluation: 10:45 - Subjective Subjective: Seen and examined at Bedside this morning, chart reviewed. Patient reports having to BM yesterday, no reports of overt GI bleed. Denies nausea, vomiting or abdominal pain. No acute overnight events. Tolerating oral intake . Objective - Vital Signs/Intake and Output Vital Signs (last 24 hours): Temp Pulse Resp BP Pulse Ox 98.0 F 99 H 18 113/50 L 97 02/27/17 06:00 02/27/17 08:52 02/27/17 06:00 02/27/17 08:52 02/27/17 06:00 Intake and Output: 02/27/17 02/27/17 06:59 18:59 Intake Total 600 Balance 600 - Medications Medications: Current Medications Aspirin (Aspirin Chewable) 81 mg PO 0800 [facility] PRN Reason: Protocol Last Admin: 02/27/17 08:27 Dose: 81 mg Atorvastatin Calcium (Lipitor) 20 mg PO DIN [facility] PRN Reason: Protocol Last Admin: 02/26/17 18:41 Dose: 20 mg Calcium Acetate (Phoslo) 667 mg PO WM [facility] Last Admin: 02/27/17 08:27 Dose: 667 mg Carvedilol (Coreg) 6.25 mg PO 0800,1800 [facility] PRN Reason: Protocol Last Admin: 02/27/17 08:52 Dose: Not Given Clopidogrel Bisulfate (Plavix) 75 mg PO DAILY [facility] PRN Reason: Protocol Last Admin: 02/27/17 10:48 Dose: 75 mg Darbepoetin Zack (Aranesp) 100 mcg IVP TH [facility] PRN Reason: Protocol Last Admin: 02/22/17 17:17 Dose: 100 mcg Fenofibrate (Tricor) 145 mg PO DAILY [facility] PRN Reason: Protocol Last Admin: 02/27/17 10:48 Dose: 145 mg Gabapentin (Neurontin) 100 mg PO HS [facility] PRN Reason: Protocol Last Admin: 02/26/17 21:40 Dose: 100 mg Isosorbide Mononitrate (Imdur Er) 30 mg PO 0600 [facility] PRN Reason: Protocol Last Admin: 02/27/17 06:04 Dose: 30 mg Levothyroxine Sodium (Synthroid) 50 mcg PO 0600 [facility] PRN Reason: Protocol Last Admin: 02/27/17 06:04 Dose: 50 mcg Midodrine (Proamatine) 5 mg PO DAILY [facility] Last Admin: 02/27/17 10:48 Dose: 5 mg Pantoprazole Sodium (Protonix Ec Tab) 20 mg PO 0600 [facility] PRN Reason: Protocol Last Admin: 02/27/17 06:04 Dose: 20 mg Vancomycin HCl (Vancocin 25 Mg/Ml (Oral Use)) 250 mg PO QID [facility] Last Admin: 02/27/17 10:48 Dose: 250 mg - Labs Labs: 02/24/17 13:40 02/24/17 13:40 - Constitutional Appears: No Acute Distress - Head Exam Head Exam: NORMOCEPHALIC - Eye Exam Eye Exam: Normal appearance. absent: Scleral icterus - ENT Exam ENT Exam: Mucous Membranes Moist - Neck Exam Neck Exam: Normal Inspection - Respiratory Exam Respiratory Exam: NORMAL BREATHING PATTERN. absent: Respiratory Distress - Cardiovascular Exam Cardiovascular Exam: +S1, +S2 - GI/Abdominal Exam GI & Abdominal Exam: Soft, Normal Bowel Sounds. absent: Guarding, Tenderness, Rebound - Extremities Exam Extremities Exam: absent: Calf Tenderness, Pedal Edema - Neurological Exam Neurological Exam: Alert, Awake, Oriented x3 - Skin Skin Exam: Dry, Warm Assessment and Plan - Assessment and Plan (Free Text) Assessment: Assessment: Recurrent CDiff, (+) antigen and toxin, resolving Diarrhea Congestive heart failure End-stage renal disease on dialysis Coronary artery disease status post stent Gallstones Diabetes mellitus History of hypothyroidism Plan: Diet as tolerated continue PPI on Plavix on oral vancomycin, recommend to complete 14 days therapy. Seen and discussed with Dr. Theodore.
--- NOTE | 2017-02-27 16:51 | PN ---
DATE: SUBJECTIVE: The patient is currently seen sitting in her room in the TCU. She is anticipating discharge later today. She has been participating with physical therapy and from my discussion with the physical therapist receiving ProAmatine prior to physical therapy and being upright allows her to participate fully, not become dizzy and apparently, she has no hypotensive episodes. MEDICATIONS: Medication list reviewed. The patient is currently on Aranesp, aspirin, Coreg, Imdur, Lipitor, Neurontin, PhosLo, Plavix, ProAmatine 5 mg a day, Protonix, Synthroid, TriCor, and oral vancomycin. OBJECTIVE: VITAL SIGNS: Blood pressure 113/50 this morning lying supine in bed, pulse 99, temperature 98 with respiratory rate of 18, and oxygen saturation is 97%. HEENT: Shows her be normocephalic, atraumatic. Conjunctivae are pale. Sclerae nonicteric. NECK: Supple. No neck vein distention. CHEST: Clear to auscultation and percussion. No rales or rhonchi or wheezing. CARDIOVASCULAR: Shows irregular rate and rhythm with MR/TR. No rub. No S3. No S4. ABDOMEN: Soft. Bowel sounds normal. No rebound or guarding. EXTREMITIES: Show no lower extremity edema. AV fistula left upper extremity. Positive thrill. Positive bruit. LABORATORY DATA AND IMAGING: No recent blood work done. Labs from 02/24/2017 showed white blood cell count of 7.4, hemoglobin of 10.2, and platelet count is 199,000. Chemistry showed potassium of 5.5, BUN of 114, creatinine of 8.5 also from 02/24/2017. Calcium is 9 with phosphorus of 4.8 and magnesium level of 1.9. Microbiology stools when she was on acute care were positive for C. diff. The patient remains on oral vancomycin therapy. ASSESSMENT: 1. Status post congestive heart failure with hypervolemia. The patient will continue four times a week dialysis. This will enable her to avoid hospitalizations for congestive heart failure and hypervolemia. 2. Orthostatic hypotension: Unfortunately, no documentation of hospital blood pressures over the last several days. The patient apparently is clinically improved when she stands and participates in therapy according to the therapist. The patient should be discharged home on ProAmatine 5 mg a day, which she can take once a day in the morning when she is upright. She should also take ProAmatine 5 mg prior to coming to dialysis, which should coincide with the morning dose. 3. Status post cholecystitis, diverticulitis from previous admission. 4. Positive pseudomembranous colitis: Stools are positive for C. diff. The patient was completing a full course of oral vancomycin therapy. Apparently, no further diarrhea. 5. End-stage renal disease: The patient will continue four times a week dialysis. She would like to have three times a week, but I told her this would not be possible as she is strictly adherent to a fluid restriction. 6. History of secondary hyperparathyroidism: Calcium and phosphorus are within normal range. The patient will continue binder therapy and a renal diet. 7. History of mild anemia: The patient will continue Aranesp per protocol at the dialysis unit. 8. History of hypertension, amlodipine has been placed on hold. The patient can be discharged home without this medication. 9. Hypothyroidism: Continue thyroid replacement therapy. PLAN 1. Discussed with staff on telemetry. Okay from my standpoint for discharge home. 2. At this point in time, the patient will need to continue four times a week dialysis and that she shows that she has significant improvement in her ability to maintain a fluid restriction. 3. I would send the patient home on ProAmatine 5 mg a day. She can take this in the morning and on dialysis day. She may take this prior to dialysis to help maintain her blood pressure to the dialysis treatment. 4. From my standpoint, amlodipine can be discontinued. 5. We will follow the patient in the outpatient unit along with you. Buck Yanes MD
== END 2017-02-27 15:46 | disposition home or self-care (01) | DRG 371 ==
LOC: TRCU 16:43
PROVIDERS: ADMIT Internal Medicine; ATTEND Internal Medicine
PROC: F07Z9FZ Gait Training/Functional Ambulation Treatment using Assistive, Adaptive, Supportive or Protective Equipment (ICD-10-PCS; principal; 2017-02-20)
PROC: F07M6ZZ Therapeutic Exercise Treatment of Musculoskeletal System - Whole Body (ICD-10-PCS; 2017-02-20)
PROC: F08Z4ZZ Home Management Treatment (ICD-10-PCS; 2017-02-20)
DX: A04.72 Enterocolitis due to Clostridium difficile, not specified as recurrent (principal); N18.6 End stage renal disease; I13.2 Hypertensive heart and chronic kidney disease with heart failure and with stage 5 chronic kidney disease, or end stage renal disease; E11.22 Type 2 diabetes mellitus with diabetic chronic kidney disease; J44.9 Chronic obstructive pulmonary disease, unspecified; K76.1 Chronic passive congestion of liver; N25.81 Secondary hyperparathyroidism of renal origin; Z99.2 Dependence on renal dialysis; D63.1 Anemia in chronic kidney disease; E03.9 Hypothyroidism, unspecified; E78.5 Hyperlipidemia, unspecified; I25.10 Atherosclerotic heart disease of native coronary artery without angina pectoris; I25.2 Old myocardial infarction; I35.0 Nonrheumatic aortic (valve) stenosis; I50.9 Heart failure, unspecified; I95.1 Orthostatic hypotension; K80.20 Calculus of gallbladder without cholecystitis without obstruction; Z79.02 Long term (current) use of antithrombotics/antiplatelets; Z79.84 Long term (current) use of oral hypoglycemic drugs; Z79.899 Other long term (current) drug therapy; Z87.11 Personal history of peptic ulcer disease; Z95.5 Presence of coronary angioplasty implant and graft; Z88.1 Allergy status to other antibiotic agents

== ENCOUNTER 2017-04-30 17:34 | Inpatient (IN) | payer MEDICARE, OTHER ==
[2017-04-30 17:35] VITALS: BMI 25.6
--- NOTE | 2017-04-30 17:56 | ED PDOC ---
Arrival/HPI - General Chief Complaint: Abdominal Pain Time Seen by Provider: 04/30/17 17:47 Historian: Patient - History of Present Illness Narrative History of Present Illness (Text): 04/30/17 17:54 An 82 year old female, whose past medical history includes ESRD (M/W/F), CHF, CAD, Diabetes and COPD, presents to the emergency department complaining of abdominal pain. She states that she fell out of her bed onto the ground. The patient also states that she feels dizzy. The patient denies fevers, chills, headache, chest pain, shortness of breath, dyspnea on exertion, cough, nausea, vomiting, diarrhea, back pain, neck pain, urinary/bowel changes, or any other complaint. PMD: Dr. Ascencio Time/Duration: Other (Today) Symptom Onset: Sudden Symptom Course: Unchanged Activities at Onset: Rest, Light Context: Home Past Medical History - Provider Review Nursing Documentation Reviewed: Yes - Infectious Disease Hx of Infectious Diseases: None - Tetanus Immunization Tetanus Immunization: Unknown - Reproductive Menopause: Yes - Cardiac Hx Cardiac Disorders: Yes (with Cath.) - Pulmonary Hx Chronic Obstructive Pulmonary Disease (COPD): Yes - Neurological Hx Neurological Disorder: Yes (numbnes/tingling left leg and ft) Hx Dizziness: Yes - HEENT Hx HEENT Disorder: Yes Hx Cataracts: Yes (b/l sx) - Renal Date of Last Dialysis Treatment: 02/12/17 - Endocrine/Metabolic Hx Diabetes Mellitus Type 2: Yes - Hematological/Oncological Hx Anemia: Yes - Integumentary Other/Comment: 2cm x 0.2cm vertical slit to coccyx clean and dry slight redness , slight redness to buttocks/sacrum/ age spots ble/small dry red scabs over desi shunt, skin discolorations ble and arms, age spots face scalp neck chest back, eccymotic arreas to lower abd - Musculoskeletal/Rheumatological Hx Falls: Yes - Gastrointestinal Hx Gastrointestinal Disorders: Yes (hx rectal bleeding) Hx Diverticulitis: Yes Hx Gastroesophageal Reflux: Yes - Genitourinary/Gynecological Hx Genitourinary Disorders: Yes - Psychiatric Hx Psychophysiologic Disorder: No Hx Substance Use: No - Surgical History Hx Cardiac Catheterization: Yes Hx Hysterectomy: Yes Hx Orthopedic Surgery: Yes (left hip replacement) Other/Comment: desi av shunt - Anesthesia Hx Anesthesia: Yes Hx Anesthesia Reactions: No Hx Malignant Hyperthermia: No - Suicidal Assessment Feels Threatened In Home Enviroment: No Family/Social History - Physician Review Nursing Documentation Reviewed: Yes Family/Social History: No Known Family HX Smoking Status: Never Smoked Hx Alcohol Use: No Hx Substance Use: No Hx Substance Use Treatment: No Allergies/Home Meds Allergies/Adverse Reactions: Allergies ceftriaxone Allergy (Verified 02/04/17 20:41) ITCHING Home Medications: Home Meds Medication Instructions Recorded Confirmed Calcium Acetate [Phoslo] 667 mg PO TID 06/12/16 04/30/17 Fenofibrate [Tricor] 135 mg PO DAILY 04/30/17 04/30/17 Insulin NPH Hum/Reg Insulin Hm 10 unit SC BID 04/30/17 04/30/17 [Humulin 70/30 70 U/ml-30 U/ml 10 ml] Meloxicam [Mobic] 15 mg PO DAILY 04/30/17 04/30/17 Pyridoxine [Vitamin B6] 100 mg PO DAILY 04/30/17 04/30/17 Review of Systems - Physician Review All systems were reviewed & negative as marked: Yes - Review of Systems Constitutional: absent: Fevers, Night Sweats Respiratory: absent: SOB Cardiovascular: absent: Chest Pain, PAUL Gastrointestinal: Abdominal Pain. absent: Stool Changes, Diarrhea, Nausea, Vomiting Genitourinary Female: absent: Urine Output Changes Musculoskeletal: absent: Back Pain, Neck Pain Neurological: Dizziness. absent: Headache Physical Exam Vital Signs Reviewed: Yes Vital Signs Temp Pulse Resp BP Pulse Ox 04/30/17 21:35 67 18 133/55 L 96 04/30/17 21:27 103.4 F H 04/30/17 17:41 98.6 F 73 18 135/51 L 98 Temperature: Afebrile Blood Pressure: Hypotensive Pulse: Regular Respiratory Rate: Normal Appearance: Positive for: Well-Appearing, Non-Toxic, Other (No signs of injury. ) Pain Distress: None Mental Status: Positive for: Confused. No: Alert and Oriented X 3 (Alert and Oriented X 1 (to person).) - Systems Exam Head: Present: Atraumatic, Normocephalic Pupils: Present: PERRL Extroacular Muscles: Present: EOMI Conjunctiva: Present: Normal Mouth: Present: Dry Neck: Present: Normal Range of Motion Respiratory/Chest: Present: Clear to Auscultation, Good Air Exchange. No: Respiratory Distress, Accessory Muscle Use Cardiovascular: Present: Regular Rate and Rhythm, Murmurs (Systolic murmur. ) Abdomen: Present: Tenderness (Diffuse abdominal tenderness. ). No: Distention, Rebound, Guarding, Hernias, Mass/Organomegaly Back: Present: Normal Inspection Upper Extremity: Present: Normal Inspection. No: Cyanosis, Edema Lower Extremity: Present: Normal Inspection. No: Edema Neurological: Present: GCS=15, CN II-XII Intact, Speech Normal Skin: Present: Pale Psychiatric: Present: Alert, Oriented x 3, Normal Insight, Normal Concentration Medical Decision Making ED Course and Treatment: 04/30/17 17:59 Impression: An 82 year old female presents to the emergency department complaining of abdominal pain and dizziness. Plan: -- Head CT -- Labs -- Reassess and disposition Prior Visits: Notes and results from previous visits were reviewed. Patient was last seen in the emergency department on 02/14/17. The patient was seen in the emergency department for a complaint of shortness of breath and dyspnea on exertion. The patient was hospitalized. Progress Notes: - Lab Interpretations Lab Results: 04/30/17 18:20 04/30/17 18:20 Lab Results 04/30/17 21:10: Urine Color Yellow, Urine Appearance Sl cloudy, Urine pH 8.0, Ur Specific Purdin 1.020, Urine Protein >=300 H, Urine Glucose (UA) 100 H, Urine Ketones Negative, Urine Blood Negative, Urine Nitrate Negative, Urine Bilirubin Negative, Urine Urobilinogen 0.2, Ur Leukocyte Esterase Negative, Urine RBC Negative, Urine WBC Negative 04/30/17 20:50: Phosphorus 4.5, Magnesium 1.8 04/30/17 20:50: pO2 49, VBG pH 7.51 H, VBG pCO2 38.0 L, VBG HCO3 30.3 H, VBG Total CO2 31.5 H, VBG O2 Sat (Calc) 86.7 H, VBG Base Excess 6.9 H, VBG Potassium 4.2, Glucose 142 H, Lactate 1.9, FiO2 21.0, Sodium 135.0, Chloride 96.0 L, Venous Blood Potassium 4.2 04/30/17 20:50: PT 13.9 H, INR 1.21 H, APTT 31.9 04/30/17 18:20: Sodium 138, Potassium 3.0 L, Chloride 94 L, Carbon Dioxide 30, Anion Gap 17, BUN 25 H, Creatinine 2.1 H, Est GFR ( Amer) 27, Est GFR ( Non-Af Amer) 22, Random Glucose 86, Calcium 9.1, Total Bilirubin 1.0, AST 97 H D , ALT 28, Alkaline Phosphatase 62, Total Protein 8.8 H, Albumin 3.8, Globulin 5.0, Albumin/Globulin Ratio 0.8 L 04/30/17 18:20: WBC 5.0 D, RBC 3.34 L, Hgb 10.2 L, Hct 30.5 L, MCV 91.3 D, MCH 30.5, MCHC 33.4, RDW 15.6 H, Plt Count 135, MPV 9.3, Gran % 82.4 H, Lymph % (Auto) 12.8 L, [place] % (Auto) 4.6, Eos % (Auto) 0.0 L, Baso % (Auto) 0.2, Gran # 4.11, Lymph # 0.6 L, [place] # 0.2, Eos # 0.0, Baso # 0.01 I have reviewed the lab results: Yes - RAD Interpretation Radiology Orders: 04/30/17 17:59 HEAD W/O CONTRAST [CT] Stat 04/30/17 20:58 CHEST PORTABLE [RAD] Stat 04/30/17 21:42 ABD & PELVIS W/O PO OR IV CONT [CT] Stat - Medication Orders Current Medication Orders: Discontinued Medications Acetaminophen (Tylenol 650 Mg Supp) 650 mg RC STAT STA Stop: 04/30/17 21:05 Last Admin: 04/30/17 21:27 Dose: 650 mg MAR Pain/Vitals Document 04/30/17 21:27 [place] (Rec: 04/30/17 21:27 [id number]) Pain Reassessment Is This A Pain ReAssessment? No Sleep Is patient sleeping during reassessment? No Vitals Temperature (97.6 F-99.6 F) 103.4 F Temperature Source Rectal Meropenem (Merrem Iv 1 Gm Premix) 50 mls @ 100 mls/hr IVPB STAT STA PRN Reason: Protocol Stop: 04/30/17 21:23 Last Admin: 04/30/17 21:27 Dose: 100 mls/hr eMAR Start Stop Document 04/30/17 21:27 HI (Rec: 04/30/17 21:27 [id number]) Intravenous Solution Start Date 04/30/17 Start Time 21:27 Sodium Chloride (Sodium Chloride 0.9%) 2,000 mls @ 999 mls/hr IV .Q2H1M STA Stop: 04/30/17 23:03 Last Admin: 04/30/17 21:27 Dose: 999 mls/hr eMAR Start Stop Document 04/30/17 21:27 HI (Rec: 04/30/17 21:27 [id number]) Intravenous Solution Start Date 04/30/17 Start Time 21:27 Potassium Chloride (K-Dur 20 Meq Er Tab) 20 meq PO STAT STA Stop: 04/30/17 19:48 Last Admin: 04/30/17 21:27 Dose: Not Given Non-Admin Reason: NPO - Scribe Statement The provider has reviewed the documentation as recorded by the Scribe Hortencia Flores Provider Scribe Attestation: All medical record entries made by the Scribe were at my direction and personally dictated by me. I have reviewed the chart and agree that the record accurately reflects my personal performance of the history, physical exam, medical decision making, and the department course for this patient. I have also personally directed, reviewed, and agree with the discharge instructions and disposition. Disposition/Present on Arrival - Present on Arrival Any Indicators Present on Arrival: No History of DVT/PE: No History of Uncontrolled Diabetes: No Urinary Catheter: No History of Decub. Ulcer: No History Surgical Site Infection Following: None - Disposition Have Diagnosis and Disposition been Completed?: Yes Diagnosis: Diverticulitis Disposition: HOSPITALIZED Disposition Time: 23:05 Patient Plan: Admission Condition: FAIR Forms: [employer] (Spanish)
[2017-04-30 18:56] LABS: BASO # 0.01 K/mm3 (0.0-2.0); BASO % 0.2 % (0.0-3.0); GRAN # 4.11 (1.4-6.5); GRAN % 82.4 % (50.0-68.0); HEMOGLOBIN 10.2 g/dL (12.0-16.0); LYMPH # 0.6 (1.2-3.4); LYMPH % 12.8 % (22.0-35.0); MEAN CELL VOLUME 91.3 fl (80.0-105.0); MEAN CORPUSCULAR HEMOGLOBIN 30.5 pg (25.0-35.0); MEAN CORPUSCULAR HGB CONC 33.4 g/dl (31.0-37.0); MEAN PLATELET VOLUME 9.3 fl (7.0-11.0); MONO # 0.2 (0.1-0.6); MONO % 4.6 % (1.0-6.0); RBC 3.34 10^6/uL (3.5-6.1); RED CELL DISTRIBUTION WIDTH 15.6 % (11.5-14.5)
[2017-04-30 19:13] LABS: ALB/GLOB RATIO 0.8 (1.1-1.8); ALBUMIN 3.8 g/dL (3.0-4.8); CALCIUM 9.1 mg/dL (8.4-10.5)
[2017-04-30] MEDS ORDERED: Potassium Chloride 20 mEq ER Tab PO STA (19:47)
--- NOTE | 2017-04-30 20:08 | CT ---
EXAM: CT Head Without Intravenous Contrast CLINICAL HISTORY: 82 years old, female; Injury or trauma; Fall; Initial encounter; Abrasion; Head, generalized TECHNIQUE: Axial computed tomography images of the head/brain without intravenous contrast. All CT scans at this facility use one or more dose reduction techniques, viz.: automated exposure control; ma/kV adjustment per patient size (including targeted exams where dose is matched to indication; i.e. head); or iterative reconstruction technique. Coronal and sagittal reformatted images were created and reviewed. COMPARISON: CT - HEAD W/O CONTRAST 2016-09-22 18:57 FINDINGS: Brain: Sade-et-ljacybgu atrophy. No intracranial hemorrhage. No mass. Few scattered foci of decreased attenuation within periventricular/subcortical white matter. No edema. Ventricles: No hydrocephalus. Bones/joints: No acute fracture. Soft tissues: Unremarkable. Vasculature: Atherosclerotic disease of intracranial arteries. Sinuses: Partial opacification of ethmoid sinuses. Mastoid air cells: No mastoid effusion. Orbits: Unremarkable as visualized. IMPRESSION: 1. No intracranial hemorrhage. 2. Nonspecific white matter changes. 3. Incidental/non-acute findings are described above.
[2017-04-30] MEDS ORDERED: Meropenem IV 1 gm in NS 50 ML IVPB STA (20:54)
[2017-04-30] MEDS ORDERED: Sodium Chloride 0.9% 2,000 ML IV STA (21:03)
[2017-04-30 21:23] LABS: INR 1.21 (0.93-1.08); PARTIAL THROMBOPLASTIN TIME 31.9 Seconds (25.1-36.5); PROTHROMBIN TIME 13.9 SECONDS (9.4-12.5)
[2017-04-30 21:27] LABS: VENOUS BLOOD GAS BASE EXCESS 6.9 mmol/L (0.0-2.0); VENOUS BLOOD GAS PO2 49 mm/Hg (30-55); VENOUS BLOOD PH 7.51 (7.32-7.43)
[2017-04-30 21:32] LABS: URINE BILIRUBIN NEGATIVE (NEGATIVE); URINE BLOOD NEGATIVE (NEGATIVE); URINE GLUCOSE (UA) 100 mg/dL (NEGATIVE); URINE LEUKOCYTE ESTERASE NEGATIVE Leu/uL (NEGATIVE); URINE NITRATE NEGATIVE (NEGATIVE); URINE PROTEIN >=300 mg/dL (<30 mg/dL); URINE UROBILINOGEN 0.2 E.U./dL (<1 E.U./dL)
[2017-04-30 21:33] LABS: URINE APPEARANCE SL CLOUDY (CLEAR); URINE COLOR YELLOW (YELLOW)
[2017-04-30 21:36] LABS: URINE RBC NEGATIVE /hpf (0-2); URINE WBC NEGATIVE /hpf (0-6)
[2017-04-30 21:42] LABS: MAGNESIUM 1.8 mg/dL (1.7-2.2)
--- NOTE | 2017-04-30 23:04 | CT ---
EXAM: CT Abdomen and Pelvis Without Intravenous Contrast CLINICAL HISTORY: 82 years old, female; Pain; Abdominal pain; Acute TECHNIQUE: Axial computed tomography images of the abdomen and pelvis without intravenous contrast. All CT scans at this facility use one or more dose reduction techniques, viz.: automated exposure control; ma/kV adjustment per patient size (including targeted exams where dose is matched to indication; i.e. head); or iterative reconstruction technique. Coronal and sagittal reformatted images were created and reviewed. COMPARISON: CT - ABD PELVIS W/O PO OR IV CONT 2017-01-29 14:44 FINDINGS: Limitations: Lack of intravenous contrast. Motion artifact - mild. Lower thorax: Mild cardiomegaly. Coronary artery calcifications. Small RIGHT pleural effusion. Trace LEFT pleural effusion. Interlobular septal thickening with mosaic pattern of lung parenchyma. LEFT lower lobe calcified granuloma. Probable small hiatal hernia. ABDOMEN: Liver: Unremarkable. Gallbladder and bile ducts: Mild gallbladder distention. Calcified gallstones. No significant ductal dilation. Pancreas: Unremarkable. No ductal dilation. Spleen: No splenomegaly. Adrenals: No mass. Kidneys and ureters: Atrophic kidneys. No hydronephrosis. Stomach and bowel: Multiple scattered diverticula within colon. Mild mural thickening short segment of distal descending colon. Minimal stranding within adjacent fat/fascial thickening. No obstruction. Appendix: No findings to suggest acute appendicitis. PELVIS: Bladder: Edge catheter. Air within lumen. No stones. Reproductive: Unremarkable as visualized. ABDOMEN and PELVIS: Intraperitoneal space: No significant fluid collection. No free air. Bones/joints: Degenerative changes of spine. LEFT hip arthroplasty. No acute fracture. Soft tissues: Unremarkable. Vasculature: Extensive atherosclerotic disease. No aneurysm. Lymph nodes: No pathologically enlarged lymph nodes. IMPRESSION: 1. Findings compatible with acute diverticulitis of descending colon. Recommend endoscopy following resolution. 2. Probable interstitial edema. 3. Air within bladder lumen. DDX: Recent instrumentation or cystitis. 4. Incidental/non-acute findings are described above.
[2017-05-01 06:57] LABS: BASO # 0.01 K/mm3 (0.0-2.0); BASO % 0.3 % (0.0-3.0); GRAN # 2.92 (1.4-6.5); HEMOGLOBIN 8.7 g/dL (12.0-16.0); LYMPH # 0.6 (1.2-3.4); LYMPH % 15.9 % (22.0-35.0); MEAN CORPUSCULAR HEMOGLOBIN 29.8 pg (25.0-35.0); MEAN CORPUSCULAR HGB CONC 31.3 g/dl (31.0-37.0); MEAN PLATELET VOLUME 9.6 fl (7.0-11.0); MONO # 0.3 (0.1-0.6); MONO % 7.8 % (1.0-6.0); RBC 2.92 10^6/uL (3.5-6.1); WHITE BLOOD COUNT 3.8 10^3/ul (4.5-11.0)
[2017-05-01 06:58] LABS: MEAN CELL VOLUME 95.2 fl (80.0-105.0)
[2017-05-01 07:02] LABS: ALB/GLOB RATIO 0.8 (1.1-1.8); ALBUMIN 3.1 g/dL (3.0-4.8); CALCIUM 7.7 mg/dL (8.4-10.5)
[2017-05-01] MEDS: Insulin Reg-LOW-Coverage SC SCH ×4 (07:15→22:17)
--- NOTE | 2017-05-01 08:13 | RAD ---
HISTORY: Sepsis Patient COMPARISON: 02/13/2017 FINDINGS: LUNGS: Mild vascular congestion. PLEURA: No significant pleural effusion identified, no pneumothorax apparent. CARDIOVASCULAR: Mild cardiomegaly OSSEOUS STRUCTURES: No significant abnormalities. VISUALIZED UPPER ABDOMEN: Normal. OTHER FINDINGS: None. IMPRESSION: Mild vascular congestion
--- NOTE | 2017-05-01 10:49 | CARD ---
APPROVED REPORT EKG Measurement Heart [id number] <Conclusion> Atrial fibrillation with moderate ventricular response Baseline artifact Anteroseptal infarct, age undetermined ST & T wave abnormality, consider inferior ischemia Abnormal ECG
[2017-05-01 11:25] LABS: IRON 73 ug/dL (45-180)
[2017-05-01 11:34] LABS: % IRON SATURATION 36 % (20-55); TOTAL IRON BINDING CAPACITY 200 ug/dL (265-497)
[2017-05-01] MEDS ORDERED: POLYETHYLENE GLYCOL 3350 17 GM/Dose PACKET PO ONE (11:34)
[2017-05-01] MEDS: Levothyroxine 50 MCG TAB PO SCH (11:37)
--- NOTE | 2017-05-01 15:02 | US ---
HISTORY: abdominal pain COMPARISON: None. TECHNIQUE: Sonographic evaluation of the right upper quadrant of the abdomen. FINDINGS: LIVER: Measures 21.3 cm in length. Diffusely increased echogenicity consistent with fatty infiltration. No mass. No biliary dilatation. Smooth contour. GALLBLADDER: Sludge and tiny calculi. No mural thickening. Trace pericholecystic fluid. Positive sonographic Rendon's sign. Findings are concerning for acute cholecystitis. COMMON BILE DUCT: Measures 5 mm. No stones. No dilatation. PANCREAS: Unremarkable as visualized. No mass. No ductal dilatation. RIGHT KIDNEY: Measures 6.9 cm in length. Diffusely increased cortical echogenicity consistent with diffuse medical renal disease. No hydronephrosis. No mass or calculus. AORTA: No aneurysmal dilatation. IVC: Unremarkable. OTHER FINDINGS: None . IMPRESSION: Cholelithiasis with trace pericholecystic fluid and positive sonographic Rendon's sign. Findings concerning for acute cholecystitis. Hepatomegaly with diffuse fatty infiltration. Atrophic right kidney.
--- NOTE | 2017-05-01 15:50 | HP ---
HISTORY OF PRESENT ILLNESS: An 82-year-old female brought to [facility] with a history of having fallen and complains of abdominal pain. She also states that she has been feeling dizzy. PAST MEDICAL HISTORY: The patient has a past medical history of chronic renal failure on dialysis 4 times a week, chronic anemia, carotid disease, arteriosclerotic heart disease, myocardial infarction, C. difficile infection, diverticulitis, and left hip fracture surgery. SOCIAL HISTORY: She is a nonsmoker, nondrinker, nondrug user. ALLERGIES: CEFTRIAXONE. HOME MEDICATIONS: Consists of Norvasc 5 mg daily, Lipitor 20 mg daily, TriCor mg daily, Imdur 30 mg daily, Ecotrin 81 mg daily, Synthroid 50 mcg daily, Neurontin 100 mg daily, Mobic 15 mg daily, Protonix 20 mg daily, PhosLo 667 mg t.i.d., vitamin B6 supplement 100 mg daily, and she is on insulin NPH 70/30 10 units subcutaneous b.i.d. REVIEW OF SYSTEMS: Ten systems were reviewed and pertinent findings that the patient is complaining of some abdominal discomfort. PHYSICAL EXAMINATION: VITAL SIGNS: Her temperature was reported rectally as 103.4, her pulse was 67, blood pressure was 133/55, oxygen sat was 96% on room air, and respiratory rate was 18. GENERAL: She is alert and oriented x3. NECK: Supple. LUNGS: Diminished breath sounds at the bases. HEART: S1 and S2 rhythm, grade II/ systolic murmur. ABDOMEN: Shows diffuse tenderness. No evidence of rebound at this time. GENITOURINARY: Has a Edge catheter, which was placed in the Emergency Room, which is giving the patient great deal of discomfort. EXTREMITIES: No evidence of edema. LABORATORY DATA: Shows WBC of 5, RBC of 3.34, hemoglobin of 10.2, hematocrit of 30.5, and platelet count of 135,000. PT is 13.9 with an INR of 1.2, and PTT of 31.9. Lactate level was 1.9. Chemistry shows sodium of 138, potassium of 3, chloride of 94, BUN of 25, creatinine of 2.1, AST is 97, ALT is 28, and alkaline phosphatase is 62. Her total albumin level is 3.8. Phosphorus is 4.5 and magnesium is 1.8. The patient gets dialyzed 4 days a week. She had CAT scan of the head, which was reported as showing no intracranial hemorrhage, nonspecific white matter changes. She had a chest x-ray, which showed mild vascular congestion. CAT scan of the abdomen and pelvis showed findings compatible with acute diverticulitis of the descending colon, probable interstitial edema, gallbladder distention with cholelithiasis, air within the bladder lumen. IMPRESSION AND PLAN: 1. An 82-year-old female with diffuse abdominal pain and acute diverticulitis, found on CAT scan. Blood cultures and urine cultures will be performed and the patient will be initiated on antibiotic therapy. Infectious Disease consult will be requested. 2. Removal of the Edge catheter after discussion with Renal. 3. Chronic anemia. 4. Arteriosclerotic heart disease. 5. Insulin-dependent diabetes. 6. Hypothyroid disease. 7. Degenerative arthritis. 8. Carotid disease. 9. Hyperlipidemia. 10.EKG with ischemia atrial fibrillation ID/RENAL/Cardiology /GI evals Shavonne Ascencio MD MTDJose J
--- NOTE | 2017-05-01 16:35 | CP.PCM.CON ---
History of Present Illness - History of Present Illness History of Present Illness: Seen and examined at the bedside earlier today, chart review. Request for GI consult is for acute diverticulitis. HPI: This is an 82-year-old female with a past medical history of known to our service from previous admissions. Complains of abdominal pain for the past few days and constipation, no bowel movement 4 days. Patient denies nausea or vomiting. Patient came to the emergency room status post fall, fell out of bed, with complaints of feeling dizzy and abdominal pain. The patient had a CAT scan of abdomen and pelvis on admission which reported acute diverticulitis in the descending colon,probable interstitial edema gallbladder distention with cholelithiasis.the patient complains of mostly pain to the right upper quadrantdenies any pain on left lower quadrant. No reports of fever or chills, nausea, vomiting. Past medical history: End-stage renal disease on dialysis 3 days a week, coronary artery disease, diverticulitis, chronic constipation,diabetes mellitus , hypothyroidism, CHF, [place], COPD, C. difficile colitis, [place] Surgical history: Cardiac catheterization, hysterectomy, left hip replacement, left AV shunt, colonoscopy done in 05/2015 found to have diverticulosis, internal hemorrhoids and colonic angiectasia with BiCAP Social history: Denies smoking, EtOH or drug use Family history: Noncontributory to this time Allergies: Ceftriaxone Medications: Reviewed as per CASSIDY BARTLETT: Assistance of Willie positive finding see HPI. Past Patient History - Infectious Disease Hx of Infectious Diseases: None - Tetanus Immunizations Tetanus Immunization: Unknown - Past Social History Smoking Status: Never Smoked - CARDIAC Hx Cardiac Disorders: Yes (with Cath.) - PULMONARY Hx Chronic Obstructive Pulmonary Disease (COPD): Yes - NEUROLOGICAL Hx Neurological Disorder: Yes (numbnes/tingling left leg and ft) Hx Dizziness: Yes - HEENT Hx HEENT Problems: Yes Hx Cataracts: Yes (b/l sx) - RENAL Hx Chronic Kidney Disease: Yes Hx Dialysis: Yes ([facility]) Date of Last Dialysis Treatment: 04/30/17 - ENDOCRINE/METABOLIC Hx Diabetes Mellitus Type 2: Yes - HEMATOLOGICAL/ONCOLOGICAL Hx Anemia: Yes - INTEGUMENTARY Other/Comment: 2cm x 0.2cm vertical slit to coccyx clean and dry slight redness , slight redness to buttocks/sacrum/ age spots ble/small dry red scabs over desi shunt, skin discolorations ble and arms, age spots face scalp neck chest back, eccymotic arreas to lower abd - MUSCULOSKELETAL/RHEUMATOLOGICAL Hx Falls: Yes - GASTROINTESTINAL Hx Gastrointestinal Disorders: Yes (hx rectal bleeding) Hx Diverticulitis: Yes Hx Gastroesophageal Reflux: Yes - GENITOURINARY/GYNECOLOGICAL Hx Genitourinary Disorders: Yes - PSYCHIATRIC Hx Psychophysiologic Disorder: No Hx Substance Use: No - SURGICAL HISTORY Hx Cardiac Catheterization: Yes Hx Hysterectomy: Yes Hx Orthopedic Surgery: Yes (left hip replacement) Other/Comment: desi av shunt - ANESTHESIA Hx Anesthesia: Yes Hx Anesthesia Reactions: No Hx Malignant Hyperthermia: No Meds Allergies/Adverse Reactions: Allergies Allergy/AdvReac Type Severity Reaction Status Date / Time ceftriaxone Allergy ITCHING Verified 02/04/17 20:41 - Medications Medications: Current Medications Amlodipine Besylate (Norvasc) 5 mg PO DAILY [facility] Last Admin: 05/01/17 11:37 Dose: 5 mg Darbepoetin Zack (Aranesp) 100 mcg IVP ONCE ONE Stop: 05/02/17 10:01 Meropenem 500 mg/ Sodium (Chloride) 50 mls @ 100 mls/hr IVPB Q12 [facility] PRN Reason: Protocol Stop: 05/10/17 22:01 Insulin Human Regular (Humulin R Low) 0 units SC ACHS [facility] PRN Reason: Protocol Isosorbide Mononitrate (Imdur Er) 30 mg PO 0600 [facility] Levothyroxine Sodium (Synthroid) 50 mcg PO ACB [facility] Last Admin: 05/01/17 11:37 Dose: 50 mcg Physical Exam - Constitutional Appears: No Acute Distress - Head Exam Head Exam: NORMOCEPHALIC - Eye Exam Eye Exam: Normal appearance. absent: Scleral icterus - ENT Exam ENT Exam: Mucous Membranes Moist - Neck Exam Neck exam: Positive for: Normal Inspection - Respiratory Exam Respiratory Exam: NORMAL BREATHING PATTERN. absent: Respiratory Distress - Cardiovascular Exam Cardiovascular Exam: +S1, +S2 - GI/Abdominal Exam GI & Abdominal Exam: Normal Bowel Sounds, Soft, Tenderness (right upper quadrant ). absent: Distended, Guarding, Rebound - Extremities Exam Extremities exam: Positive for: pedal pulses present. Negative for: calf tenderness, pedal edema - Neurological Exam Neurological exam: Alert, Oriented x3 - Skin Skin Exam: Dry, Warm Results - Vital Signs Recent Vital Signs: Last Vital Signs Temp 98.1 F 05/01/17 06:00 Pulse 74 05/01/17 06:00 Resp 20 05/01/17 06:00 BP 120/57 L 05/01/17 06:00 Pulse Ox 96 05/01/17 06:00 - Labs Result Diagrams: 05/01/17 05:30 05/01/17 05:30 Labs: Laboratory Results - last 24 hr 05/01/17 05/01/17 05/01/17 05:30 05:30 06:30 WBC 3.8 L D RBC 2.92 L Hgb 8.7 L Hct 27.8 L MCV 95.2 D MCH 29.8 MCHC 31.3 RDW 16.0 H Plt Count 108 L MPV 9.6 Gran % 76.0 H Lymph % (Auto) 15.9 L Crowley % (Auto) 7.8 H Eos % (Auto) 0.0 L Baso % (Auto) 0.3 Gran # 2.92 Lymph # 0.6 L Crowley # 0.3 Eos # 0.0 Baso # 0.01 Sodium 139 Potassium 3.5 L Chloride 99 Carbon Dioxide 26 Anion Gap 18 BUN 46 H Creatinine 4.6 H Est GFR ( Amer) 11 Est GFR (Non-Af Amer) 9 POC Glucose (mg/dL) Random Glucose 142 H Calcium 7.7 L Iron 73 TIBC 200 L % Saturation 36 Total Bilirubin 0.9 AST 93 H ALT 29 Alkaline Phosphatase 49 Total Protein 7.3 Albumin 3.1 Globulin 4.2 Albumin/Globulin Ratio 0.8 L 05/01/17 05/01/17 08:37 11:37 WBC RBC Hgb Hct MCV MCH MCHC RDW Plt Count MPV Gran % Lymph % (Auto) Crowley % (Auto) Eos % (Auto) Baso % (Auto) Gran # Lymph # Crowley # Eos # Baso # Sodium Potassium Chloride Carbon Dioxide Anion Gap BUN Creatinine Est GFR ( Amer) Est GFR (Non-Af Amer) POC Glucose (mg/dL) 115 H 217 H Random Glucose Calcium Iron TIBC % Saturation Total Bilirubin AST ALT Alkaline Phosphatase Total Protein Albumin Globulin Albumin/Globulin Ratio Assessment & Plan - Assessment and Plan (Free Text) Assessment: Assessment: Abdominal pain Acute diverticulitis Status post fall, CAT scan of the head negative for intracranial hemorrhage End-stage renal disease on dialysis Chronic anemia Diabetes mellitus Chronic constipation Plan: On IV antibiotics as per ID, on Meropenum For constipation will give patient MiraLAX twice a day at this time don't recommend any suppositories or enema FU abdominal US continue clear liquid Thank you for this consult and for allowing us to participate in patient's care , further recommendations based on clinical course. Seen and discussed with Dr. Hodges who is covering Dr. Theodore.
[2017-05-01] MEDS: POLYETHYLENE GLYCOL 3350 17 GM/Dose PACKET PO SCH (17:32)
[2017-05-01] MEDS: Meropenem 500 MG in Sodium Chloride 0.9% 50 ML IVPB SCH (22:18)
--- NOTE | 2017-05-01 23:33 | CON ---
DATE: 05/01/2017 LOCATION: The patient is seen in room 367, bed 2. CHIEF COMPLAINT: Abdominal pain times several days. HISTORY OF PRESENT ILLNESS: This is a 82-year-old female with past medical history significant for end-stage renal disease, on hemodialysis; congestive heart failure; coronary artery disease; diabetes mellitus; chronic destructive lung disease who is admitted now with abdominal pain last night in the emergency room. The patient had a CT scan which showed diverticulitis and Infectious Disease consultation requested. REVIEW OF SYSTEMS: Reveals the patient to have weakness, nausea, low-grade fevers, but in the emergency room, the patient's temperature was up to 103.4 and no diarrhea or constipation. No bright red blood per rectum. No headaches or blurred vision. No dysuria. PAST MEDICAL HISTORY: Significant for end-stage renal disease, on hemodialysis; congestive heart failure; coronary artery disease; diabetes mellitus; chronic obstructive lung disease. PAST SURGICAL HISTORY: Significant for left hip surgery and vascular access for dialysis. MEDICATIONS: The patient's at medications at home reveals insulin, vitamin B6, Protonix, Mobic, Neurontin, levothyroxine, aspirin, isosorbide, Lipitor, amlodipine. ALLERGIES: PATIENT IS ALLERGIC TO CEFTRIAXONE, although in the last admission, the patient had received cefepime and tolerated well. PHYSICAL EXAMINATION: VITAL SIGNS: Temperature is 103.4, heart rate of 96, blood pressure is 130/50, respiratory rate of 18. HEENT: Unremarkable. NECK: Supple. LUNGS: Decreased breath sounds. HEART: Normal S1, S2. ABDOMEN: Soft, nontender. No rebound or guarding. No masses. LABORATORY DATA: Reveals a white count of 3.8, hemoglobin of 8, platelets of 108. Coagulation is noted and chemistries reveals a BUN of 46, creatinine of 4.6 and urinalysis is noted with greater than 300 proteins, no WBCs. The patient's alk phos is normal, ALT is normal with a mild elevation of AST of 93, and the patient had a CT scan of the abdomen and pelvis which reveals with acute diverticulitis, there is gallbladder distention, cholelithiasis. The patient had a chest x-ray which reveals mild vascular congestion and atrial fibrillation. An EKG with QTC of , ST and T abnormality, inferior ischemia, abnormal EKG. ASSESSMENT AND PLAN: An 82-year-old female with end-stage renal disease on hemodialysis, congestive heart failure, coronary artery disease, diabetes, chronic obstructive lung disease with epigastric pain with: 1. Fever of 103.4, tachycardia and thrombocytopenia. CT scan findings noted with: 1. Severe sepsis with acute diverticulitis, must also rule out gallbladder disease, and the patient is ALLERGIC TO CEFTRIAXONE. We will treat the patient with meropenem, adjusted for renal disease. We will check on the blood cultures and urine cultures and ultrasound of gallbladder, may consider a HIDA scan. We will also order troponins because of a possibility inferior wall myocardial infarction in a patient with epigastric pain. We will follow closely with you. Discussed with Dr. Ascencio. Jeromy Castellanos MD
[2017-05-02 01:55] LABS: TROPONIN I 3.33 ng/mL
--- NOTE | 2017-05-02 02:09 | CON ---
DATE: 05/01/2017 Dr. Hodges dictating a addendum to consultation dictated by Starr Bowers, on 05/01/2017. I have personally examined this patient. The patient is admitted to the with right-sided abdominal pain. CT scan of the abdomen and pelvis revealed mural thickening and mild stranding adjacent to the descending colon with dilated gallbladder. Gallbladder ultrasound shows some pericholecystic fluid with sludge and small calculi in her gallbladder. The patient has renal insufficiency and elevated troponin level. Concern is for cholecystitis. She is high risk for surgical intervention at this time. RECOMMENDATIONS: 1. Continue IV antibiotics. 2. Consider Cardiology evaluation. 3. We will request a hepatobiliary scan. Gaurav Hodges MD
[2017-05-02 02:21] LABS: CK-MB 1.2 ng/mL (0.0-3.6)
--- NOTE | 2017-05-02 02:37 | CON ---
DATE: 05/01/[address] Dr[address] Shavonne Ascencio. REFERRING MD: Shavonne Ascencio MD REASON FOR CONSULTATION: To provide dialysis to a patient known to me who presents with a fall and abdominal pain. The patient was found to have acute cholecystitis and possible acute diverticulitis. HISTORY OF PRESENT ILLNESS: The patient is a pleasant 82-year-old white female with end-stage renal disease, on chronic maintenance hemodialysis now at [facility]. Patient dialyzes four times a week because of volume related issues and hypotension on dialysis. History of NIDDM, currently on insulin. History of diverticulitis and cholecystitis in the past. History of pseudomembranous colitis, secondary hyperparathyroidism, anemia, hypertension, and hypothyroidism. The patient states that she apparently fell at home, was lying on the floor for a period of time. She was brought to the emergency room for evaluation of her fall. Her head CT scan showed no acute findings. She was complaining of abdominal pain. CT scans were done which showed possible acute cholecystitis and diverticulitis. The patient was admitted for evaluation of her abnormal findings. Her last dialysis was on 04/30/2017. She is scheduled for dialysis tomorrow. PAST MEDICAL HISTORY: Significant for end-stage renal disease, on four times a week dialysis; history of IDDM; history of diverticulitis and cholecystitis; history of pseudomembranous colitis; secondary hyperparathyroidism; anemia secondary to chronic kidney disease; hypertension; hypothyroidism. History of mitral regurgitation and tricuspid regurgitation. History of a left upper extremity AV fistula. MEDICATIONS AT HOME: Include that of insulin, both long and short-acting; vitamin B6; PhosLo; Protonix; Mobic; Neurontin; Synthroid; aspirin; Imdur; TriCor; Lipitor; and Norvasc. ALLERGIES: THE PATIENT IS ALLERGIC TO CEFTRIAXONE. CURRENT MEDICATIONS IN HOSPITAL: Include that of meropenem, Norvasc, Synthroid, Imdur, and insulin sliding scale. SOCIAL HISTORY: No history of cigarette smoking. No history of alcohol use. FAMILY HISTORY: Noncontributory. No history of end-stage renal disease. REVIEW OF SYSTEMS: GENERAL: The patient states appetite has been stable with no significant weight loss. ENT: Denies any hearing or visual problems. PULMONARY: Occasional shortness of breath with exertion. CARDIAC: History of mild valvular heart disease. History of CHF. History of coronary artery disease with past [facility]. GI: Past history of GI bleeding with angiodysplasia. Past history of cholecystitis and history of diverticulitis. : History of end-stage renal disease with minimal urine output. [employer]ST: Postmenopausal. ENDOCRINE: History of diabetes with complications. History of secondary hyperparathyroidism. MUSCULOSKELETAL: No complaints presently. NEURO: Head CT scan shows multiple lacunar and white matter infarcts. No history of syncope. History of frequent falls. HEME/ONC: History of anemia secondary to chronic kidney disease. PSYCHIATRIC: History is negative. PHYSICAL EXAMINATION: GENERAL: The patient is currently seen on 3R. She is lying supine in bed. She is complaining of right upper quadrant abdominal pain, but otherwise in no acute distress. VITAL SIGNS: Blood pressure is 120/57 with a pulse of 96 and irregular. Temperature 98.1 with a T-max of 99. Respiratory rate is 20. Pulse ox is 96%. HEENT: Exam shows her to be normocephalic, atraumatic. Conjunctivae are pale. Sclerae are nonicteric. Pupils are equally reactive to light and accommodation. Extraocular muscles are intact. Posterior pharynx is normal. NECK: Supple. No neck vein distention. No audible bruits. No lymphadenopathy. No thyromegaly. CHEST: Clear to auscultation and percussion with slight decreased breath sounds at the bases. No rales, no rhonchi or wheezing. CARDIOVASCULAR: Shows an irregular S1 and S2. MR/TR. No S3. No S4. No rub. ABDOMEN: Soft. Positive tenderness on palpation of her right upper quadrant with only mild tenderness on palpation of her left lower quadrant. No rebound or guarding or masses. Bowel sounds are normal. BACK: No CVAT. No spinal tenderness. EXTREMITIES: Show a left upper extremity AV fistula. Positive thrill. Positive bruit. No lower extremity cyanosis, clubbing, or edema. Distal lower extremity pulses are 1 to 2+ bilaterally. Positive left upper extremity AV fistula. NEURO: Shows her to be alert, oriented x3 with no gross focal motor or sensory deficits noted. LABORATORY DATA AND IMAGING: Abdominal CT scan shows gallstones with possible acute cholecystitis. Possible diverticulitis. Increased liver size with fatty infiltration. Abdominal ultrasound shows a positive Rendon's sign consistent with possible acute cholecystitis. Admitting chest x-ray shows mild pulmonary vascular congestion. Admitting head CT scan shows no acute findings. Admitting EKG shows atrial fibrillation with a heart rate of [address]-segment depressions. CBC: White blood cell count 3.8, down from 5.0; hemoglobin down 10.2 to 8.7; platelet count is 108,000. Coags: PT of 13.0 with a PTT of 31.9. Blood gas showed a pH of 7.51, pCO2 of 38, pO2 of 49. Lactic acid level was 1.9. Chemistries showed normal electrolytes. BUN 46, creatinine 4.6. Calcium 7.7 with an albumin level of 3.1. Liver enzymes: Mild elevation of AST. Normal bilirubin. Iron saturations were 36%. Glucose is 142. Calcium was 7.7, phosphorus 4.5, magnesium 1.8. Urinalysis showed glucose and protein. No white blood cells. Microbiology: No results available as of yet. ASSESSMENT: 1. End-stage renal disease. The patient will continue four times a week dialysis as per schedule. 2. Status post fall. Head CT scan was negative for any acute findings. 3. Abdominal pain. Workup positive for acute cholecystitis and acute diverticulitis. The patient is presently on antibiotic therapy, these will likely need to be adjusted. 4. Atrial fibrillation. Past EKG showed normal sinus rhythm. Troponins are pending. The patient is being placed on remote telemetry. She will be evaluated by Cardiology. 5. Recent history of pseudomembranous colitis. 6. History of anemia secondary to chronic kidney disease. 7. History of hypertension. Blood pressure controlled on present medical and cardiac therapy. 8. Hypothyroidism. The patient will continue thyroid replacement therapy. 9. History of secondary hyperparathyroidism. The patient will continue binder therapy and a renal diet. PLAN: 1. Cardiology and GI evaluations are pending. 2. Infectious disease evaluation is pending. Antibiotics will likely need to be adjusted for treatment of empiric cholecystitis and diverticulitis. 3. Routine hemodialysis tomorrow as per the patient's schedule. 4. Continue renal diet and binder therapy. 5. Agree with Dr. Ascencio' decision to place the patient on remote telemetry. Cardiology evaluation in progress. 6. Continue Aranesp on dialysis with iron supplementation per protocol. 7. Continue thyroid replacement therapy. 8. Continue to follow labs predialysis. Thank you for letting me partake and share in the care of your patient. Buck Yanes MD
[2017-05-02 06:45] LABS: BASO # 0.01 K/mm3 (0.0-2.0); BASO % 0.2 % (0.0-3.0); GRAN # 2.86 (1.4-6.5); HEMOGLOBIN 8.7 g/dL (12.0-16.0); LYMPH # 0.8 (1.2-3.4); MEAN CELL VOLUME 93.5 fl (80.0-105.0); MEAN CORPUSCULAR HEMOGLOBIN 29.8 pg (25.0-35.0); MEAN CORPUSCULAR HGB CONC 31.9 g/dl (31.0-37.0); MEAN PLATELET VOLUME 9.7 fl (7.0-11.0); MONO # 0.5 (0.1-0.6); MONO % 11.8 % (1.0-6.0); RBC 2.92 10^6/uL (3.5-6.1); RED CELL DISTRIBUTION WIDTH 15.7 % (11.5-14.5); WHITE BLOOD COUNT 4.2 10^3/ul (4.5-11.0)
[2017-05-02 07:13] LABS: ALB/GLOB RATIO 0.8 (1.1-1.8); ALBUMIN 3.3 g/dL (3.0-4.8); CALCIUM 7.8 mg/dL (8.4-10.5); TROPONIN I 2.95 ng/mL
[2017-05-02] MEDS: Insulin Reg-LOW-Coverage SC SCH ×4 (08:18→22:02)
[2017-05-02] MEDS: Levothyroxine 50 MCG TAB PO SCH (08:19)
--- NOTE | 2017-05-02 08:31 | CARD ---
APPROVED REPORT EKG Measurement Heart [id number] <Conclusion> Sinus rhythm with 1st degree AV block Nonspecific ST and T wave abnormality Prolonged QT Abnormal ECG
[2017-05-02] MEDS ORDERED: Lidocaine/Prilocaine 2.5%-2.5% Cream(30 gm) TOP ONE (08:51)
[2017-05-02 09:09] LABS: MAGNESIUM 1.8 mg/dL (1.7-2.2)
[2017-05-02 09:13] LABS: CK-MB 1.2 ng/mL (0.0-3.6)
[2017-05-02] MEDS ORDERED: Darbepoetin Alfa 100 mcg/ml Inj IVP ONE (10:00)
[2017-05-02] MEDS: Meropenem 500 MG in Sodium Chloride 0.9% 50 ML IVPB SCH ×2 (10:28→13:30)
[2017-05-02] MEDS: POLYETHYLENE GLYCOL 3350 17 GM/Dose PACKET PO SCH ×2 (10:29→19:17)
[2017-05-02] MEDS: Prostat 15 g packet PO ONE ×2 (11:55→12:06)
--- NOTE | 2017-05-02 13:02 | CP.PCM.PN ---
Subjective - Date & Time of Evaluation Date of Evaluation: 05/02/17 Time of Evaluation: 11:00 - Subjective Subjective: Seen and examined in dialysis earlier today, chart reviewed. No acute overnight events reported. Patient reported to have bowel movements. No report of diarrhea or blood per rectum. Noted the patient is guaiac positive. Patient still has pain on right upper quadrant but with some improvement. No episodes of nausea, vomiting, shortness of breath or chest pain. No reports of fever or chills. abdominal ultrasound reviewed,reveals small gallstones and sludge,positive pericholecystic fluid and Rendon sign, CBD measures 5 mm. Objective - Vital Signs/Intake and Output Vital Signs (last 24 hours): Temp Pulse Resp BP Pulse Ox 98.3 F 69 20 128/63 99 05/02/17 05:33 05/02/17 05:33 05/02/17 05:33 05/02/17 05:33 05/02/17 05:33 Intake and Output: 05/02/17 05/02/17 06:59 18:59 Intake Total 340 Balance 340 - Medications Medications: Current Medications Acetaminophen (Tylenol 325mg Tab) 650 mg PO Q6H PRN PRN Reason: Pain, moderate (4-7) Aspirin (Aspirin Chewable) 81 mg PO DAILY [facility] Last Admin: 05/02/17 10:27 Dose: Not Given Meropenem 500 mg/ Sodium (Chloride) 50 mls @ 100 mls/hr IVPB Q12 [facility] PRN Reason: Protocol Stop: 05/10/17 22:01 Last Admin: 05/02/17 10:28 Dose: Not Given Insulin Human Regular (Humulin R Low) 0 units SC ACHS [facility] PRN Reason: Protocol Last Admin: 05/02/17 11:35 Dose: Not Given Isosorbide Mononitrate (Imdur Er) 30 mg PO 0600 [facility] Last Admin: 05/02/17 06:47 Dose: Not Given Levothyroxine Sodium (Synthroid) 50 mcg PO ACB [facility] Last Admin: 05/02/17 08:19 Dose: Not Given Metoprolol Tartrate (Lopressor) 25 mg PO BRKDIN [facility] Polyethylene Glycol (Miralax) 17 gm PO BID [facility] Last Admin: 05/02/17 10:29 Dose: Not Given - Labs Labs: 05/02/17 06:00 05/02/17 06:00 PT 13.9 SECONDS (9.4-12.5) H 04/30/17 20:50 INR 1.21 (0.93-1.08) H 04/30/17 20:50 APTT 31.9 Seconds (25.1-36.5) 04/30/17 20:50 - Constitutional Appears: No Acute Distress - Eye Exam Eye Exam: Normal appearance. absent: Scleral icterus - ENT Exam ENT Exam: Mucous Membranes Moist - Neck Exam Neck Exam: Normal Inspection - Respiratory Exam Respiratory Exam: NORMAL BREATHING PATTERN. absent: Respiratory Distress - Cardiovascular Exam Cardiovascular Exam: +S1, +S2 - GI/Abdominal Exam GI & Abdominal Exam: Soft, Tenderness (right upper quadrant), Normal Bowel Sounds. absent: Guarding, Rebound - Extremities Exam Extremities Exam: absent: Calf Tenderness, Pedal Edema - Neurological Exam Neurological Exam: Alert, Awake, Oriented x3 - Skin Skin Exam: Dry, Warm Assessment and Plan - Assessment and Plan (Free Text) Assessment: Assessment: Abdominal pain, rule out cholecystitis Acute diverticulitis Status post fall, CAT scan of the head negative for intracranial hemorrhage End-stage renal disease on dialysis Chronic anemia Diabetes mellitus Chronic constipation Plan: On IV antibiotics as per ID, on Meropenum continue MiraLAX pending HIDA scan continue clear liquid Seen and discussed with Dr. Hodges who is covering Dr. Theodore.
--- NOTE | 2017-05-02 16:54 | PN ---
DATE: ADDENDUM I personally examined this patient and reviewed her laboratory data and I agree with Starr Bowers's assessment and recommendations. The patient was seen in hemodialysis. Her right-sided abdominal pain is less. Hepatobiliary scan is pending. Would continue IV antibiotics. Gaurav Hodges MD
--- NOTE | 2017-05-02 17:02 | NM ---
PROCEDURE: Nuclear Medicine Hepatobiliary Scan HISTORY: cholecystitis COMPARISON: None available. TECHNIQUE: 5.2 mCi of technetium 99m Mebrofenin was administered intravenously. Planar images of the abdomen were obtained at 5 min intervals to 60 mins. Delayed images were also obtained. FINDINGS: LIVER: Timely and homogenous uptake. COMMON BILE DUCT: identified at 15 mins. GALLBLADDER: Not visualized even on 80 minutes delayed images SMALL BOWEL: Identified at 30 mins. IMPRESSION: Nonvisualization of the gallbladder consistent with cystic duct obstruction and acute cholecystitis.
[2017-05-02 18:33] LABS: TROPONIN I 2.27 ng/mL
--- NOTE | 2017-05-02 19:09 | PN ---
DATE: 05/02/2017 SUBJECTIVE: The patient is seen lying in bed. She is resting comfortably. PHYSICAL EXAMINATION: GENERAL: Elderly lady, lying in bed. VITAL SIGNS: Blood pressure 128/63, heart rate 69, respiratory rate 20, temperature 98.3. HEENT: Normocephalic, atraumatic, positive pallor. NECK: Supple, no JVD. LUNGS: Bilateral equal air entry, bilateral equal expansion, no rales. CARDIAC: S1 and S2, regular rate and rhythm. No murmur. No rub. ABDOMEN: Soft, distended, positive tenderness, bowel sounds present. EXTREMITIES: No lower extremity edema. INTAKE AND OUTPUT: Not charted. LABORATORY DATA: WBC 4, hemoglobin 8.7, hematocrit 27, and platelets 86. Sodium 137, potassium 4.1, chloride 98, CO2 of 21, BUN 67, creatinine 6.5, glucose 153, calcium 7.8, phosphorus 6.1, magnesium 1.8, albumin 3.3, corrected calcium is 8.2. Troponin 2.95. Urinalysis, leukocyte esterase negative, nitrite negative. Stool occult positive. Blood cultures have no growth so far. CURRENT MEDICATIONS: Aspirin, insulin, Imdur 30, Lopressor 25 b.i.d., meropenem 500 q.12, MiraLax, Synthroid, Tylenol, Aranesp 100 mcg given this morning. ASSESSMENT AND PLAN: 1. End-stage renal disease, status post dialysis early this morning. 2. Status post fall at home. 3. Abdominal pain, acute diverticulitis, acute cholecystitis. 4. Atrial fibrillation, new onset. 5. Elevated troponins, acute coronary syndrome ?. 6. Pseudomembranous colitis history. 7. Anemia, multifactorial. 8. Hypertension. 9. Hypothyroidism. 10. Secondary hyperparathyroidism. PLAN: 1. IV antibiotics for acute cholecystitis and diverticulitis as per ID recommendations. 2. Stable dialysis today without heparin. 3. Await Cardiology evaluation for elevated troponins. 4. HIDA scan recommended by ID. 5. No anticoagulation since the patient is occult positive. Barbi Linares MD
[2017-05-02] MEDS ORDERED: Meropenem 500 MG in Sodium Chloride 0.9% 100 ML IVPB SCH (19:29)
--- NOTE | 2017-05-02 20:07 | PN ---
DATE: SUBJECTIVE: An 82-year-old female on dialysis at this time. The patient states that she is more comfortable this morning and during the night she did have some abdominal discomfort. PHYSICAL EXAMINATION GENERAL: She is alert and oriented x3. VITAL SIGNS: Temperature is 98.3, her pulse is 70, blood pressure is 128/63, oxygen saturation is 99% on 2 L of nasal oxygen with a respiratory rate of 20. NECK: Supple. There is no JVD. HEART: S1 and S2 rhythm, grade 2/6 systolic murmur. ABDOMEN: Soft. Positive bowel sounds. EXTREMITIES: Shows no evidence of edema. LABORATORY DATA: Shows WBC of 4.2, RBC 2.92, hemoglobin 8.7, hematocrit 27.3 and platelet count is 86,000. Chemistry pre-dialysis showed a sodium 137, potassium 4.1, chloride 98, BUN is 67, creatinine is 6.5 and random blood sugar is 142. Her AST is 92. The patient's troponin initially was 3.63 and 3.33 and this morning it is 2.95. She has a positive stool guaiac. Blood cultures are negative today. ASSESSMENT AND PLAN: 1. The patient had a non-ST myocardial infarction. Being followed by Cardiology. 2. She had diverticulitis with an abnormal ultrasound of the gallbladder. HIDA scan is planned to rule out cholecystitis. 3. She is being followed by Infectious Disease, on IV antibiotics for diverticulitis and probable cholecystitis. Currently her medications consists of Ecotrin 81 mg daily, which has been held. She is on sliding insulin scale for coverage. She is on Imdur 30 mg daily, Lopressor 25 mg b.i.d. She is on IV meropenem 500 mg q.12, MiraLax 17 g b.i.d., which has been held. She is on Synthroid 50 mcg daily. She is on Tylenol p.r.n. She continues on clear liquid diet at this time. She has received 100 mcg of Aranesp IV by Nephrology. We will continue current level of care at this time. Await the HIDA scan. Follow the patient's labs. Shavonne Ascencio MD [facility] # [id number]
--- NOTE | 2017-05-02 20:52 | PN ---
DATE: 05/02/2017 SUBJECTIVE: The patient seen earlier today in 277, bed 2. No fever or chills. No nausea. No vomiting. Pain is improved. PHYSICAL EXAMINATION: VITAL SIGNS: Temperature is 98, blood pressure is 128/60, respiratory rate 20, heart rate of 60. HEENT: Unremarkable. NECK: Supple. LUNGS: Decreased breath sounds. HEART: Normal S1, S2. ABDOMEN: Soft, nontender. LABORATORY EXAMINATION: Reveals a white count of 4.2, hemoglobin of 8, and platelets of 86. Chemistry reveals a BUN of 67, creatinine of 6.5, troponin from yesterday is 3.63 and again repeat one today is 3.33 and 3.95. Influenza is negative. Blood cultures are negative. Repeat EKG, sinus rhythm with first degree AV block, nonspecific ST and T wave abnormalities. Prolonged QTC, abnormal EKG. ASSESSMENT AND PLAN: This is an 82-year-old female with past medical history significant for end-stage renal disease on hemodialysis, congestive heart failure, coronary artery disease, diabetes mellitus, chronic obstructive lung disease who was admitted with epigastric pain. 1. Severe sepsis with acute sigmoid diverticulitis along with non-ST elevation myocardial infarction, must rule out acute cholecystitis. The patient is ALLERGIC TO CEFTRIAXONE. Currently on meropenem. We will follow with you. Jeromy Castellanos MD
--- NOTE | 2017-05-02 22:23 | CON ---
DATE: 05/02/2017 REQUESTING PHYSICIAN: Dr. Ascencio REASON FOR CONSULTATION: Elevated troponin and abdominal pain. HISTORY OF PRESENT ILLNESS: This is an 82-year-old woman well known to us with a history of chronic renal insufficiency, maintained on hemodialysis three times a week. The patient has a coronary artery disease and suffered prior myocardial infarction. She has a history of moderate mitral regurgitation. In the emergency room, she was felt to have evidence of diverticulitis and possible cholecystitis. She is currently seen this morning on dialysis. She continuously complained of some right upper quadrant pain. On admission, her troponin is 3.63 with repeat of 3.33 and followup is 2.95. Total CK was 309 with a negative MB fraction. Her initial electrocardiogram showed atrial fibrillation with mild ventricular response, repeat shows sinus rhythm. PAST MEDICAL HISTORY: Notable for the problems mentioned above. She has had diverticulitis in the past. She also has a history of hypertension, diabetes, cerebrovascular disease, status post prior carotid stenting, history of diabetes and hypertension, as well as prior gastrointestinal bleeding, angiodysplasia, peripheral neuropathy and colonic polyps and hypothyroidism. MEDICATIONS: Her current medications include aspirin, Imdur 30 mg daily, insulin, Lipitor 20 mg daily, Neurontin 100 mg at bedtime, Norvasc 5 mg daily, PhosLo, Protonix 20 mg daily, Synthroid 50 mcg daily, Tricor and vitamin supplements. ALLERGIES: SHE HAS ALLERGIES TO ROCEPHIN IN THE PAST. FAMILY HISTORY: Both parents from age-related illnesses. SOCIAL HISTORY: She lives in home and she does not smoke or drink. She maintains on dialysis. REVIEW OF SYSTEMS: A 10-point review of systems is notable mainly for problems mentioned above. PHYSICAL EXAMINATION: GENERAL: She is chronically ill appearing. VITAL SIGNS: Her blood pressure is 128/62 with a pulse of 70, in sinus rhythm. Respirations are 14. She is afebrile. HEENT: Normocephalic and atraumatic. NECK: Supple. No JVD. CHEST: Reveals bibasilar rales with scattered rhonchi. HEART: Revealed PMI to be displaced laterally. Systolic murmur is noted at the left sternal boarder as well as at the apex. ABDOMEN: Soft, however, moderate right upper quadrant tenderness is noted. Bowel sounds are present. EXTREMITIES: Reveal no clubbing, cyanosis or edema. SKIN: Warm and dry. NEUROLOGIC: Alert and oriented x3. PSYCHIATRIC: Normal mood and affect. DIAGNOSTIC DATA: Potassium 4.1, BUN and creatinine 67 and 6.5, glucose 142, total CK was 309 with negative MB fraction. Followup CK is 282, again with a negative MB fraction. Initial troponin was 3.63 with repeat at 3.33 and followup at 2.95. Electrocardiogram initially showed atrial fibrillation with a moderate ventricular response and prior anteroseptal myocardial infarction pattern could not be excluded. Inferior T-wave changes noted, possibly suggestive of ischemia. Repeat cardiogram last evening reveals conversion to sinus rhythm with first degree AV block and nonspecific ST-T abnormalities with mildly prolonged QT interval. Chest x-ray reveals a borderline cardiac silhouette enlargement with increased vascular markings at the perihilar region. CT of the abdomen reportedly showed evidence of diverticulitis of descending colon, interstitial edema is also noted. Abdominal ultrasound shows some pericholecystic fluid and findings most consistent with acute cholecystitis. IMPRESSION: 1. Paroxysmal atrial fibrillation, currently in sinus rhythm. 2. Apparent cholecystitis and diverticulitis still with abdominal pain. 3. Moderate mitral regurgitation. 4. Chronic renal failure, maintained on hemodialysis. 5. Elevated troponin, possibly suggestive of small non-ST segment elevation myocardial infarction, currently with no chest pain. RECOMMENDATIONS: IV antibiotics should be continued for now. Anticoagulant therapy will be withheld given the prior history of gastrointestinal bleeding. Beta leandro therapy would be preferable to amlodipine for her blood pressure control as it would provide additional anti-ischemic benefit and rate control should she has recurrence of her atrial fibrillation. If antibiotic therapy is not effective in controlling her cholecystitis and diverticulitis, then surgery is contemplated. She would be at least moderately increased risk given her complex medical issues and cardiac disease. Thank you for this consultation. We will be happy to follow along her hospital course. Linus So MD
[2017-05-02] MEDS: Meropenem 500 MG in Sodium Chloride 0.9% 100 ML IVPB SCH (23:14)
[2017-05-03 06:39] LABS: BASO # 0.03 K/mm3 (0.0-2.0); BASO % 0.5 % (0.0-3.0); EOS % 0.3 % (1.5-5.0); GRAN # 3.76 (1.4-6.5); HEMOGLOBIN 9.2 g/dL (12.0-16.0); LYMPH # 1.2 (1.2-3.4); MEAN CELL VOLUME 94.3 fl (80.0-105.0); MEAN CORPUSCULAR HEMOGLOBIN 29.1 pg (25.0-35.0); MEAN CORPUSCULAR HGB CONC 30.9 g/dl (31.0-37.0); MEAN PLATELET VOLUME 9.9 fl (7.0-11.0); MONO # 0.8 (0.1-0.6); MONO % 14.2 % (1.0-6.0); RBC 3.16 10^6/uL (3.5-6.1); RED CELL DISTRIBUTION WIDTH 15.8 % (11.5-14.5); WHITE BLOOD COUNT 5.8 10^3/ul (4.5-11.0)
[2017-05-03 08:00] LABS: ALB/GLOB RATIO 0.8 (1.1-1.8); ALBUMIN 3.3 g/dL (3.0-4.8); CALCIUM 8.3 mg/dL (8.4-10.5)
[2017-05-03] MEDS: Levothyroxine 50 MCG TAB PO SCH (08:18)
[2017-05-03] MEDS: Insulin Reg-LOW-Coverage SC SCH ×4 (08:20→21:38)
--- NOTE | 2017-05-03 09:33 | CP.PCM.PN ---
Subjective - Date & Time of Evaluation Date of Evaluation: 05/03/17 Time of Evaluation: 07:00 - Subjective Subjective: Stable on 2R. No CP or SOB. Abd. pain is better. V/S noted. RSR. PE: Lungs: clera Cor.: S1S2 Abd: tender RUQ Ext.: no edema Neuro.: alert I/O= 700/3 recorded Labs noted: Pl Ct= 88,000, K+= 3.4, Trop= 2.27 Stool for OB: + BC x 2 NG at 48 hrs. Objective - Vital Signs/Intake and Output Vital Signs (last 24 hours): Temp Pulse Resp BP Pulse Ox 98 F 100 H 19 147/71 95 05/03/17 06:00 05/03/17 08:18 05/03/17 06:00 05/03/17 08:18 05/03/17 06:00 Intake and Output: 05/03/17 05/03/17 06:59 18:59 Intake Total 220 Output Total 3 Balance 217 - Medications Medications: Current Medications Acetaminophen (Tylenol 325mg Tab) 650 mg PO Q6H PRN PRN Reason: Pain, moderate (4-7) Aspirin (Aspirin Chewable) 81 mg PO DAILY [facility] Last Admin: 05/02/17 10:27 Dose: Not Given Meropenem 500 mg/ Sodium (Chloride) 100 mls @ 100 mls/hr IVPB Q12 [facility] PRN Reason: Protocol Last Admin: 05/02/17 23:14 Dose: 100 mls/hr Insulin Human Regular (Humulin R Low) 0 units SC ACHS [facility] PRN Reason: Protocol Last Admin: 05/03/17 08:20 Dose: Not Given Isosorbide Mononitrate (Imdur Er) 30 mg PO 0600 [facility] Last Admin: 05/03/17 05:56 Dose: Not Given Levothyroxine Sodium (Synthroid) 50 mcg PO ACB [facility] Last Admin: 05/03/17 08:18 Dose: 50 mcg Metoprolol Tartrate (Lopressor) 25 mg PO BRKDIN [facility] Last Admin: 05/03/17 08:18 Dose: 25 mg Polyethylene Glycol (Miralax) 17 gm PO BID [facility] Last Admin: 05/02/17 19:17 Dose: 17 gm - Labs Labs: 05/03/17 06:20 05/03/17 06:00 PT 13.9 SECONDS (9.4-12.5) H 04/30/17 20:50 INR 1.21 (0.93-1.08) H 04/30/17 20:50 APTT 31.9 Seconds (25.1-36.5) 04/30/17 20:50 Assessment and Plan - Assessment and Plan (Free Text) Assessment: Abd. Pain, Acute Cholecystitis, +/- acute diverticulitis + trop, possible NSTEMI PAF Stool + OB CAD/old UT CKD/HD Moderate MR Diabetes HBP GIB/Angiodysplasias PN Colonic Polyps Hypothyroidism Plan: Continue current cardiac meds. AB As per ID, GI, Renal, Dr. Ascencio Check cultures If surgery becomes necessary: she will be at moderate to severely increased cardiac risk. Monitor: I/O, labs, H/H, cultures, sats., etc.
[2017-05-03] MEDS: POLYETHYLENE GLYCOL 3350 17 GM/Dose PACKET PO SCH ×2 (09:58→18:46)
[2017-05-03] MEDS: Meropenem 500 MG in Sodium Chloride 0.9% 100 ML IVPB SCH ×2 (10:07→21:38)
--- NOTE | 2017-05-03 11:49 | CP.PCM.PN ---
Subjective - Date & Time of Evaluation Date of Evaluation: 05/03/17 Time of Evaluation: 10:10 - Subjective Subjective: Seen and examined at the bedside earlier today, patient had a HIDA scan yesterday that was positive for cystic duct obstruction and acute cholecystitis , patient right upper quadrant abdominal pain is better, denies fever chills, nausea, vomiting. She reported having a loose bowel movement last night and noted some blood in the toilet denies rectal pain. No complaints of shortness of breath or chest pain, patient states that she is hungry. Objective - Vital Signs/Intake and Output Vital Signs (last 24 hours): Temp Pulse Resp BP Pulse Ox 98 F 100 H 19 147/71 95 05/03/17 06:00 05/03/17 08:18 05/03/17 06:00 05/03/17 08:18 05/03/17 06:00 Intake and Output: 05/03/17 05/03/17 06:59 18:59 Intake Total 220 Output Total 3 Balance 217 - Medications Medications: Current Medications Acetaminophen (Tylenol 325mg Tab) 650 mg PO Q6H PRN PRN Reason: Pain, moderate (4-7) Last Admin: 05/03/17 10:07 Dose: 650 mg Aspirin (Aspirin Chewable) 81 mg PO DAILY [facility] Last Admin: 05/03/17 09:58 Dose: 81 mg Meropenem 500 mg/ Sodium (Chloride) 100 mls @ 100 mls/hr IVPB Q12 [facility] PRN Reason: Protocol Last Admin: 05/03/17 10:07 Dose: 100 mls/hr Insulin Human Regular (Humulin R Low) 0 units SC ACHS [facility] PRN Reason: Protocol Last Admin: 05/03/17 08:20 Dose: Not Given Isosorbide Mononitrate (Imdur Er) 30 mg PO 0600 [facility] Last Admin: 05/03/17 05:56 Dose: Not Given Levothyroxine Sodium (Synthroid) 50 mcg PO ACB [facility] Last Admin: 05/03/17 08:18 Dose: 50 mcg Metoprolol Tartrate (Lopressor) 25 mg PO BRKDIN [facility] Last Admin: 05/03/17 08:18 Dose: 25 mg Polyethylene Glycol (Miralax) 17 gm PO BID [facility] Last Admin: 05/03/17 09:58 Dose: 17 gm - Labs Labs: 05/03/17 06:20 05/03/17 06:00 PT 13.9 SECONDS (9.4-12.5) H 04/30/17 20:50 INR 1.21 (0.93-1.08) H 04/30/17 20:50 APTT 31.9 Seconds (25.1-36.5) 04/30/17 20:50 - Constitutional Appears: No Acute Distress - Head Exam Head Exam: absent: NORMOCEPHALIC - Eye Exam Eye Exam: Normal appearance. absent: Scleral icterus - ENT Exam ENT Exam: Mucous Membranes Moist - Respiratory Exam Respiratory Exam: NORMAL BREATHING PATTERN. absent: Respiratory Distress - Cardiovascular Exam Cardiovascular Exam: +S1, +S2 - GI/Abdominal Exam GI & Abdominal Exam: Soft, Tenderness (some RUQ tenderness with some improvement.), Normal Bowel Sounds. absent: Guarding, Rebound - Rectal Exam Rectal Exam: Hemorrhoids. absent: Black Stool, Bloody Stool Additional comments: large external - Extremities Exam Extremities Exam: absent: Calf Tenderness, Pedal Edema - Neurological Exam Neurological Exam: Alert, Awake, Oriented x3 Assessment and Plan - Assessment and Plan (Free Text) Assessment: Assessment: Acute cholecystitis Acute diverticulitis NSTEMI Status post fall, CAT scan of the head negative for intracranial hemorrhage End-stage renal disease on dialysis Chronic anemia Diabetes mellitus Chronic constipation Plan: On IV antibiotics as per ID, on Meropenum continue MiraLAX, hold for loose stool discuss with patient and nursing, if have episodes of loose stool collect stool cdiff, witnessed [place] nursing staff no loose stool. on aspirin continue clear liquid for now, if continue improve consider to slowly advance to lowfat full liquid surgical evaluation Seen and discussed with Dr. Hodges who is covering Dr. Theodore.
--- NOTE | 2017-05-03 13:45 | CP.PCM.CON ---
History of Present Illness - History of Present Illness History of Present Illness: 82 year old female with a past medical history of diverticulitis, ESRD on HD MWF , DM II, and hypertension who presented to [facility] for abdominal pain and fall. Ct head of the head was negative for an acute intracranial bleed and the patient was found to have heme-occult positive stool and a CT scan of the abdomen and pelvis that showed findings consistent with acute diverticulitis of the descending colon and cholelthiasis. The patient continued to have abdominal pain , that was especially worst after meals and subsequently an ultrasound of the abdomen showed findings concerning for the acute cholecystitis and a HIDA scan confirmed obstruction of the cystic duct and acute cholcystitis. Currently, the patient is on Merrem, renally-dosed and is on a telemetry for cardiac monitoring. Past medical history: End-stage renal disease on dialysis 3 days a week, coronary artery disease, diverticulitis, chronic constipation,diabetes mellitus , hypothyroidism, CHF, [place], COPD, C. difficile colitis, [place] Surgical history: Cardiac catheterization, hysterectomy, left hip replacement, left AV shunt, colonoscopy done in 05/2015 found to have diverticulosis, internal hemorrhoids and colonic angiectasia with BiCAP Social history: Denies smoking, EtOH or drug use Family history: Noncontributory to this time Allergies: Ceftriaxone Medications: Reviewed as per MAR Review of Systems - Review of Systems All systems: reviewed and no additional remarkable complaints except Review of Systems: as per hpi Past Patient History - Infectious Disease Hx of Infectious Diseases: None - Tetanus Immunizations Tetanus Immunization: Unknown - Past Social History Smoking Status: Never Smoked - CARDIAC Hx Cardiac Disorders: Yes (with Cath.) - PULMONARY Hx Chronic Obstructive Pulmonary Disease (COPD): Yes - NEUROLOGICAL Hx Neurological Disorder: Yes (numbnes/tingling left leg and ft) Hx Dizziness: Yes - HEENT Hx HEENT Problems: Yes Hx Cataracts: Yes (b/l sx) - RENAL Hx Chronic Kidney Disease: Yes Hx Dialysis: Yes [place] Date of Last Dialysis Treatment: 04/30/17 - ENDOCRINE/METABOLIC Hx Diabetes Mellitus Type 2: Yes - HEMATOLOGICAL/ONCOLOGICAL Hx Anemia: Yes - INTEGUMENTARY Other/Comment: 2cm x 0.2cm vertical slit to coccyx clean and dry slight redness , slight redness to buttocks/sacrum/ age spots ble/small dry red scabs over desi shunt, skin discolorations ble and arms, age spots face scalp neck chest back, eccymotic arreas to lower abd - MUSCULOSKELETAL/RHEUMATOLOGICAL Hx Falls: Yes - GASTROINTESTINAL Hx Gastrointestinal Disorders: Yes (hx rectal bleeding) Hx Diverticulitis: Yes Hx Gastroesophageal Reflux: Yes - GENITOURINARY/GYNECOLOGICAL Hx Genitourinary Disorders: Yes - PSYCHIATRIC Hx Psychophysiologic Disorder: No Hx Substance Use: No - SURGICAL HISTORY Hx Cardiac Catheterization: Yes Hx Hysterectomy: Yes Hx Orthopedic Surgery: Yes (left hip replacement) Other/Comment: desi av shunt - ANESTHESIA Hx Anesthesia: Yes Hx Anesthesia Reactions: No Hx Malignant Hyperthermia: No Meds Allergies/Adverse Reactions: Allergies Allergy/AdvReac Type Severity Reaction Status Date / Time ceftriaxone Allergy ITCHING Verified 02/04/17 20:41 - Medications Medications: Current Medications Acetaminophen (Tylenol 325mg Tab) 650 mg PO Q6H PRN PRN Reason: Pain, moderate (4-7) Last Admin: 05/03/17 10:07 Dose: 650 mg Aspirin (Aspirin Chewable) 81 mg PO DAILY [facility] Last Admin: 05/03/17 09:58 Dose: 81 mg Meropenem 500 mg/ Sodium (Chloride) 100 mls @ 100 mls/hr IVPB Q12 [facility] PRN Reason: Protocol Last Admin: 05/03/17 10:07 Dose: 100 mls/hr Insulin Human Regular (Humulin R Low) 0 units SC ACHS [facility]S [facility] PRN Reason: Protocol Last Admin: 05/03/17 11:41 Dose: Not Given Isosorbide Mononitrate (Imdur Er) 30 mg PO 0600 [facility] Last Admin: 05/03/17 05:56 Dose: Not Given Levothyroxine Sodium (Synthroid) 50 mcg PO ACB [facility] Last Admin: 05/03/17 08:18 Dose: 50 mcg Metoprolol Tartrate (Lopressor) 25 mg PO BRKDIN [facility]S [facility] Last Admin: 05/03/17 08:18 Dose: 25 mg Polyethylene Glycol (Miralax) 17 gm PO BID [facility] Last Admin: 05/03/17 09:58 Dose: 17 gm Physical Exam - Constitutional Appears: Chronically Ill - Head Exam Head Exam: ATRAUMATIC, NORMOCEPHALIC - Eye Exam Eye Exam: EOMI, Normal appearance, PERRL - ENT Exam ENT Exam: Mucous Membranes Moist - Respiratory Exam Respiratory Exam: NORMAL BREATHING PATTERN. absent: Accessory Muscle Use - GI/Abdominal Exam Additional comments: inspiratory arrest with RUQ palpation - Extremities Exam Extremities exam: Positive for: normal inspection. Negative for: calf tenderness - Back Exam Back exam: NORMAL INSPECTION. absent: CVA tenderness (L), CVA tenderness (R) - Neurological Exam Neurological exam: Alert, CN II-XII Intact, Oriented x3 - Psychiatric Exam Psychiatric exam: Normal Affect, Normal Mood - Skin Skin Exam: Dry, Intact, Normal Color, Warm Results - Vital Signs Recent Vital Signs: Last Vital Signs Temp 97.9 F 05/03/17 12:00 Pulse 78 05/03/17 12:00 Resp 18 05/03/17 12:00 BP 110/69 05/03/17 12:00 Pulse Ox 95 05/03/17 06:00 - Labs Result Diagrams: 05/03/17 06:20 05/03/17 06:00 Labs: Laboratory Results - last 24 hr 05/02/17 05/02/17 05/03/17 16:20 17:46 06:00 WBC RBC Hgb Hct MCV MCH MCHC RDW Plt Count MPV Gran % Lymph % (Auto) [place] % (Auto) Eos % (Auto) Baso % (Auto) Gran # Lymph # [place] # Eos # Baso # Sodium 136 Potassium 3.4 L Chloride 95 L Carbon Dioxide 27 Anion Gap 18 BUN 37 H Creatinine 4.8 H Est GFR ( Amer) 10 Est GFR (Non-Af Amer) 9 POC Glucose (mg/dL) 150 H Random Glucose 155 H Calcium 8.3 L Total Bilirubin 1.1 AST 78 H ALT 35 Alkaline Phosphatase 57 Lactate Dehydrogenase 761 H Total Creatine Kinase 162 Troponin I 2.27 H* D Total Protein 7.5 Albumin 3.3 Globulin 4.2 Albumin/Globulin Ratio 0.8 L 05/03/17 05/03/17 05/03/17 06:20 07:46 11:12 WBC 5.8 D RBC 3.16 L Hgb 9.2 L Hct 29.8 L MCV 94.3 MCH 29.1 MCHC 30.9 L RDW 15.8 H Plt Count 88 L MPV 9.9 Gran % 65.0 Lymph % (Auto) 20.0 L [place] % (Auto) 14.2 H Eos % (Auto) 0.3 L Baso % (Auto) 0.5 Gran # 3.76 Lymph # 1.2 [place] # 0.8 H Eos # 0.0 Baso # 0.03 Sodium Potassium Chloride Carbon Dioxide Anion Gap BUN Creatinine Est GFR ( Amer) Est GFR (Non-Af Amer) POC Glucose (mg/dL) 149 H 146 H Random Glucose Calcium Total Bilirubin AST ALT Alkaline Phosphatase Lactate Dehydrogenase Total Creatine Kinase Troponin I Total Protein Albumin Globulin Albumin/Globulin Ratio Assessment & Plan - Assessment and Plan (Free Text) Assessment: 82 year old female with a past medical history notable for diverticulitis, hypertension, DM II, and ESRD who presented to [facility] for a fall and abdominal pain who was found to have diverticulitis of the left, descending colon and cholecystitis. Plan: Tentatively Pre-operative management - Date & Time Date: 05/03/17 Time: 15:19
[2017-05-03] MEDS: Potassium Chloride 20 mEq ER Tab PO SCH (16:36)
[2017-05-03 16:54] LABS: BASO # 0.04 K/mm3 (0.0-2.0); BASO % 0.6 % (0.0-3.0); EOS % 0.1 % (1.5-5.0); GRAN # 4.18 (1.4-6.5); GRAN % 62.5 % (50.0-68.0); HEMOGLOBIN 9.8 g/dL (12.0-16.0); LYMPH # 1.6 (1.2-3.4); LYMPH % 23.7 % (22.0-35.0); MEAN CELL VOLUME 94.6 fl (80.0-105.0); MEAN CORPUSCULAR HEMOGLOBIN 29.6 pg (25.0-35.0); MEAN CORPUSCULAR HGB CONC 31.3 g/dl (31.0-37.0); MEAN PLATELET VOLUME 10.1 fl (7.0-11.0); MONO # 0.9 (0.1-0.6); MONO % 13.1 % (1.0-6.0); RBC 3.31 10^6/uL (3.5-6.1); RED CELL DISTRIBUTION WIDTH 15.8 % (11.5-14.5); WHITE BLOOD COUNT 6.7 10^3/ul (4.5-11.0)
--- NOTE | 2017-05-03 17:02 | PN ---
DATE: 05/03/2017 SUBJECTIVE: The patient is seen lying in bed. She is awake. She is alert. She is comfortable. She reports watery diarrhea. She denies any nausea, vomiting. She denies any abdominal pain today. No fever. PHYSICAL EXAMINATION: GENERAL: Elderly lady lying in bed. VITAL SIGNS: Blood pressure 110/69, heart rate 78, respiratory rate 18, temperature 97.9. HEENT: Normocephalic, atraumatic. Positive pallor. NECK: Supple, no JVD. LUNGS: Bilateral equal air entry, bilateral equal expansion, no rales. CARDIAC: S1 and S2, regular rate and rhythm, no murmur, no rub. ABDOMEN: Soft, nondistended, nontender, bowel sounds present. EXTREMITIES: No lower extremity edema. INTAKE AND OUTPUT: Not charted. LABORATORY DATA: WBC 5.8, hemoglobin 9.2, hematocrit 29.8, platelets 88. Sodium 136, potassium 3.4, chloride 95, CO2 of 27, BUN 37, creatinine 4.8, glucose 155, calcium 8.3, albumin 3.3, corrected calcium is 8.7. AST 78, ALT 35, LDH 761, troponin 2.2. Cultures, no growth. CURRENT MEDICATIONS: Aspirin, insulin, Imdur 60, Lopressor 25 b.i.d., meropenem 1 g q.12, MiraLax 17 g, Synthroid, and Tylenol. ASSESSMENT: 1. Acute cholecystitis, plus acute diverticulitis. 2. [id number]-[id number] myocardial infarction, elevated troponins. 3. Paroxysmal atrial fibrillation. 4. Coronary artery disease, history of myocardial infarction, congestive heart failure. 5. End-stage renal disease. 6. Anemia of chronic kidney disease. 7. Uss-oxlnaxz-qelwocdix diabetes mellitus. 8. Chronic pain. PLAN: 1. Continue antibiotics as per ID recommendations. 2. Continue beta-leandro, aspirin. 3. No intervention for atrial fibrillation except for rate control. 4. Replace potassium, potassium is 3.4. 5. Next dialysis tomorrow. Barbi Linares MD
--- NOTE | 2017-05-04 00:26 | PN ---
DATE: SUBJECTIVE: An 82-year-old female on telemetry. The patient has chronic renal disease, on dialysis 4 times a week. Recent admission with acute diverticulitis, acute cholecystitis, non-ST NH with elevated troponins, paroxysmal atrial fibrillation, type 2 insulin-dependent diabetes, and hypothyroid disease. PHYSICAL EXAMINATION: VITAL SIGNS: This morning, the temperature is 98.4, her pulse is 59, blood pressure is 136/53, respiratory rate is 18, and oxygen saturation is 95% on nasal cannula at 2 liters. GENERAL: She is alert and oriented x3. NECK: Supple. LUNGS: Show diminished breath sounds at the bases with rhonchi. HEART: Regular S1 and S2 rhythm. ABDOMEN: Soft, scaphoid. Positive bowel sounds. EXTREMITIES: No evidence of edema. LABORATORY DATA: Chemistry shows a sodium of 136, potassium of 3.4, chloride 95, BUN 37, creatinine is 4.8. Random blood sugar is 149. Her AST is 78. CBC shows WBC of 6.7, RBC of 3.31, hemoglobin of 9.8, hematocrit of 31.3, and platelet count 90,000. MEDICATIONS: Currently, the patient is on meropenem IV. She is on Synthroid 50 mcg daily, MiraLax b.i.d., Lopressor 25 mg b.i.d., K-Dur 20 mEq daily, Imdur 30 mg daily. She is on a sliding insulin scale and Ecotrin 81 mg daily. ASSESSMENT AND PLAN: She has a positive stool guaiac. A surgical consult has been requested. At the same time, there is a discussion ongoing with the Renal and Infectious Disease, and we will get family preservation caseworker's input regarding risks of surgery. She will continue on her dialysis which is four times a week. Continue monitoring the patient on telemetry at this time. Shavonne Ascencio MD
--- NOTE | 2017-05-04 00:45 | PN ---
DATE: ADDENDUM This is a addendum to a progress note performed by Starr Bowers APN. SUBJECTIVE: The patient is slowly improving. Her hepatobiliary scan was positive for cystic duct obstruction. Her abdominal pain on the right side is less. She is at high risk for cholecystectomy including end-stage renal disease, her advanced age, diabetes mellitus, coronary artery disease and mitral regurgitation. PLAN: As long as the patient is improving clinically with antibiotics, would hold off on surgical intervention at this time. The patient is also noted to have elevated troponins. Gaurav Hodges MD
--- NOTE | 2017-05-04 02:08 | PN ---
DATE: SUBJECTIVE: Patient is in bed, in no acute distress, nontoxic. No fevers. No chills. PHYSICAL EXAMINATION: VITAL SIGNS: Temperature is 98, blood pressure is 130/70, respiratory rate of 16. HEENT: Unremarkable. NECK: Supple. LUNGS: Decreased breath sounds. HEART: Normal S1, S2. ABDOMEN: Soft, nontender. LABORATORY EXAMINATION: Reveals a white count of 6.7, hemoglobin of 9. BUN of 37, creatinine of 4.8. Blood cultures are negative. Urine cultures are negative. ASSESSMENT AND PLAN: This is an 82-year-old female with past medical history significant for end-stage renal disease on hemodialysis, congestive heart failure, coronary artery disease, diabetes mellitus, chronic obstructive lung disease, admitted with epigastric pain. 1. Severe sepsis with acute sigmoid diverticulitis. 2. Non-ST elevation myocardial infarction. 3. Acute cholecystitis, currently on meropenem. Patient's HIDA scan was consistent with nonvisualization of gallbladder consistent with cystic duct obstruction and acute cholecystitis. We will follow with you. Jeromy Castellanos MD
[2017-05-04 06:36] LABS: BASO # 0.03 K/mm3 (0.0-2.0); BASO % 0.5 % (0.0-3.0); EOS % 0.2 % (1.5-5.0); GRAN # 4.03 (1.4-6.5); GRAN % 65.9 % (50.0-68.0); HEMOGLOBIN 9.8 g/dL (12.0-16.0); LYMPH # 1.3 (1.2-3.4); LYMPH % 21.6 % (22.0-35.0); MEAN CELL VOLUME 94.9 fl (80.0-105.0); MEAN CORPUSCULAR HEMOGLOBIN 29.2 pg (25.0-35.0); MEAN CORPUSCULAR HGB CONC 30.7 g/dl (31.0-37.0); MEAN PLATELET VOLUME 10.3 fl (7.0-11.0); MONO # 0.7 (0.1-0.6); MONO % 11.8 % (1.0-6.0); RBC 3.36 10^6/uL (3.5-6.1); WHITE BLOOD COUNT 6.1 10^3/ul (4.5-11.0)
[2017-05-04 07:26] LABS: ALB/GLOB RATIO 0.8 (1.1-1.8); ALBUMIN 3.4 g/dL (3.0-4.8); CALCIUM 8.3 mg/dL (8.4-10.5)
[2017-05-04] MEDS: Potassium Chloride 20 mEq ER Tab PO SCH (08:00)
[2017-05-04] MEDS: Levothyroxine 50 MCG TAB PO SCH (08:00)
[2017-05-04] MEDS: Insulin Reg-LOW-Coverage SC SCH ×3 (08:01→16:53)
[2017-05-04 08:33] LABS: MAGNESIUM 1.9 mg/dL (1.7-2.2)
--- NOTE | 2017-05-04 08:45 | CP.PCM.PN ---
Subjective - Date & Time of Evaluation Date of Evaluation: 05/04/17 Time of Evaluation: 07:00 - Subjective Subjective: Stable on 2R. No CP or SOB. V/S noted. RSR. PE: Lungs: clera Cor.: S1S2 Abd: tender RUQ Ext.: no edema Neuro.: alert I/O= 760/300 Labs noted: Stool for OB: + BC x 2 NG at 3 days. Objective - Vital Signs/Intake and Output Vital Signs (last 24 hours): Temp Pulse Resp BP Pulse Ox 98.4 F 61 18 136/53 L 95 05/03/17 18:00 05/04/17 06:00 05/03/17 18:00 05/03/17 18:00 05/03/17 06:00 Intake and Output: 05/04/17 05/04/17 06:59 18:59 Intake Total 220 Balance 220 - Medications Medications: Current Medications Acetaminophen (Tylenol 325mg Tab) 650 mg PO Q6H PRN PRN Reason: Pain, moderate (4-7) Last Admin: 05/03/17 10:07 Dose: 650 mg Aspirin (Aspirin Chewable) 81 mg PO DAILY [facility] Last Admin: 05/03/17 09:58 Dose: 81 mg Meropenem 500 mg/ Sodium (Chloride) 100 mls @ 100 mls/hr IVPB Q12 [facility] PRN Reason: Protocol Last Admin: 05/03/17 21:38 Dose: 100 mls/hr Insulin Human Regular (Humulin R Low) 0 units SC ACHS [facility] PRN Reason: Protocol Last Admin: 05/04/17 08:01 Dose: Not Given Isosorbide Mononitrate (Imdur Er) 30 mg PO 0600 [facility] Last Admin: 05/04/17 05:57 Dose: Not Given Levothyroxine Sodium (Synthroid) 50 mcg PO ACB [facility] Last Admin: 05/04/17 08:00 Dose: 50 mcg Metoprolol Tartrate (Lopressor) 25 mg PO BRKDIN [facility] Last Admin: 05/04/17 08:00 Dose: 25 mg Polyethylene Glycol (Miralax) 17 gm PO BID [facility] Last Admin: 05/03/17 18:46 Dose: Not Given Potassium Chloride (K-Dur 20 Meq Er Tab) 20 meq PO BRK [facility] Last Admin: 05/04/17 08:00 Dose: 20 meq - Labs Labs: 05/04/17 06:00 05/04/17 06:00 PT 13.9 SECONDS (9.4-12.5) H 04/30/17 20:50 INR 1.21 (0.93-1.08) H 04/30/17 20:50 APTT 31.9 Seconds (25.1-36.5) 04/30/17 20:50 Assessment and Plan - Assessment and Plan (Free Text) Assessment: Abd. Pain, Acute Cholecystitis, +/- acute diverticulitis + trop, possible NSTEMI PAF Stool + OB CAD/old CA CKD/HD Moderate MR Diabetes HBP GIB/Angiodysplasias PN Colonic Polyps Hypothyroidism Plan: Continue current cardiac meds. AB As per ID, GI, Renal, Surgery, Dr. Ascencio Check cultures If surgery becomes necessary: she will be at moderate to severely increased cardiac risk. Monitor: I/O, labs, H/H, cultures, sats., etc.
--- NOTE | 2017-05-04 09:33 | CP.PCM.PN ---
Subjective - Date & Time of Evaluation Date of Evaluation: 05/04/17 Time of Evaluation: 08:25 - Subjective Subjective: S&E at bedside, chart reviewed, RUQ abdominal pain still present with slight improvement. No pain if untouched as per patient. Reports semiloose stool, no further bleeding. No fever or chills, SOB or CP. Objective - Vital Signs/Intake and Output Vital Signs (last 24 hours): Temp Pulse Resp BP Pulse Ox 98.4 F 61 18 136/53 L 95 05/03/17 18:00 05/04/17 06:00 05/03/17 18:00 05/03/17 18:00 05/03/17 06:00 Intake and Output: 05/04/17 05/04/17 06:59 18:59 Intake Total 220 Balance 220 - Medications Medications: Current Medications Acetaminophen (Tylenol 325mg Tab) 650 mg PO Q6H PRN PRN Reason: Pain, moderate (4-7) Last Admin: 05/03/17 10:07 Dose: 650 mg Aspirin (Aspirin Chewable) 81 mg PO DAILY [facility] Last Admin: 05/03/17 09:58 Dose: 81 mg Meropenem 500 mg/ Sodium (Chloride) 100 mls @ 100 mls/hr IVPB Q12 [facility] PRN Reason: Protocol Last Admin: 05/03/17 21:38 Dose: 100 mls/hr Insulin Human Regular (Humulin R Low) 0 units SC ACHS [facility] PRN Reason: Protocol Last Admin: 05/04/17 08:01 Dose: Not Given Isosorbide Mononitrate (Imdur Er) 30 mg PO 0600 [facility] Last Admin: 05/04/17 05:57 Dose: Not Given Levothyroxine Sodium (Synthroid) 50 mcg PO ACB [facility] Last Admin: 05/04/17 08:00 Dose: 50 mcg Metoprolol Tartrate (Lopressor) 25 mg PO BRKDIN [facility] Last Admin: 05/04/17 08:00 Dose: 25 mg Polyethylene Glycol (Miralax) 17 gm PO BID [facility] Last Admin: 05/03/17 18:46 Dose: Not Given Potassium Chloride (K-Dur 20 Meq Er Tab) 20 meq PO BRK [facility] Last Admin: 05/04/17 08:00 Dose: 20 meq - Labs Labs: 05/04/17 06:00 05/04/17 06:00 PT 13.9 SECONDS (9.4-12.5) H 04/30/17 20:50 INR 1.21 (0.93-1.08) H 04/30/17 20:50 APTT 31.9 Seconds (25.1-36.5) 04/30/17 20:50 - Constitutional Appears: No Acute Distress - Eye Exam Eye Exam: Normal appearance. absent: Scleral icterus - ENT Exam ENT Exam: Mucous Membranes Moist - Neck Exam Neck Exam: Normal Inspection - Respiratory Exam Respiratory Exam: NORMAL BREATHING PATTERN. absent: Respiratory Distress - Cardiovascular Exam Cardiovascular Exam: +S1, +S2 - GI/Abdominal Exam GI & Abdominal Exam: Soft, Tenderness (RUQ on palpation), Normal Bowel Sounds. absent: Guarding, Rebound - Extremities Exam Extremities Exam: absent: Calf Tenderness, Pedal Edema - Neurological Exam Neurological Exam: Alert, Awake, Oriented x3 Assessment and Plan - Assessment and Plan (Free Text) Assessment: Assessment: Acute cholecystitis Acute diverticulitis? NSTEMI Status post fall, CAT scan of the head negative for intracranial hemorrhage End-stage renal disease on dialysis Chronic anemia Diabetes mellitus Chronic constipation, now semiloose stool, H/O cdiff Plan: On IV antibiotics as per ID, on Meropenum hold MiraLAX stool cdiff on aspirin IV antibiotics PPI was NPO for possible sx intervention VS biliary drain, pt" mod/severe" cardiac risk as per cardiology surgery on board Seen and discussed with Dr. Hodges who is covering Dr. Theodore.
--- NOTE | 2017-05-04 10:35 | CP.PCM.PN ---
Subjective - Date & Time of Evaluation Date of Evaluation: 05/04/17 Time of Evaluation: 07:50 - Subjective Subjective: General Surgery Progress Note for Dr. Kelley Patient seen and examined at bedside. Patient endorses no complaints. Nurse reports no events overnight. Objective - Vital Signs/Intake and Output Vital Signs (last 24 hours): Temp Pulse Resp BP Pulse Ox 98.4 F 61 18 136/53 L 95 05/03/17 18:00 05/04/17 06:00 05/03/17 18:00 05/03/17 18:00 05/03/17 06:00 Intake and Output: 05/04/17 05/04/17 06:59 18:59 Intake Total 220 Balance 220 - Medications Medications: Current Medications Acetaminophen (Tylenol 325mg Tab) 650 mg PO Q6H PRN PRN Reason: Pain, moderate (4-7) Last Admin: 05/03/17 10:07 Dose: 650 mg Meropenem 500 mg/ Sodium (Chloride) 100 mls @ 100 mls/hr IVPB Q12 [facility] PRN Reason: Protocol Last Admin: 05/03/17 21:38 Dose: 100 mls/hr Insulin Human Regular (Humulin R Low) 0 units SC ACHS [facility] PRN Reason: Protocol Last Admin: 05/04/17 08:01 Dose: Not Given Isosorbide Mononitrate (Imdur Er) 30 mg PO 0600 [facility] Last Admin: 05/04/17 05:57 Dose: Not Given Levothyroxine Sodium (Synthroid) 50 mcg PO ACB [facility] Last Admin: 05/04/17 08:00 Dose: 50 mcg Metoprolol Tartrate (Lopressor) 25 mg PO BRKDIN [facility] Last Admin: 05/04/17 08:00 Dose: 25 mg Polyethylene Glycol (Miralax) 17 gm PO BID [facility] Last Admin: 05/03/17 18:46 Dose: Not Given Potassium Chloride (K-Dur 20 Meq Er Tab) 20 meq PO BRK [facility] Last Admin: 05/04/17 08:00 Dose: 20 meq - Labs Labs: 05/04/17 06:00 05/04/17 06:00 PT 13.9 SECONDS (9.4-12.5) H 04/30/17 20:50 INR 1.21 (0.93-1.08) H 04/30/17 20:50 APTT 31.9 Seconds (25.1-36.5) 04/30/17 20:50 - Constitutional Appears: Well, Non-toxic - Head Exam Head Exam: ATRAUMATIC, NORMOCEPHALIC - Eye Exam Eye Exam: EOMI, Normal appearance - ENT Exam ENT Exam: Mucous Membranes Dry - Neck Exam Neck Exam: Normal Inspection - Respiratory Exam Respiratory Exam: NORMAL BREATHING PATTERN. absent: Accessory Muscle Use - GI/Abdominal Exam Additional comments: inspiratory arrest with deep palpation in the RUQ - Rectal Exam Rectal Exam: Deferred - Extremities Exam Extremities Exam: Normal Capillary Refill, Normal Inspection - Back Exam Back Exam: NORMAL INSPECTION. absent: CVA tenderness (L), CVA tenderness (R) - Neurological Exam Neurological Exam: Alert, Awake, Oriented x3 - Psychiatric Exam Psychiatric exam: Normal Affect, Normal Mood - Skin Skin Exam: Dry, Intact, Normal Color, Warm Assessment and Plan - Assessment and Plan (Free Text) Assessment: 82 year old female with a past medical history notable for diverticulitis, hypertension, DM II, and ESRD who presented to [facility] for a fall and abdominal pain who was found to have diverticulitis of the left, descending colon and cholecystitis on imaging. The patient continued to have RUQ abdominal pain, especially after meals, and thus Abdominal US and HIDA scan were ordered. HIDA scan demonstrated obstruction of the cystic duct and acute cholecystits. Surgery has been consulted. Plan: Benefit, risk, and alternatives of surgery discussed with patient, primary medical doctor, and consultants. We will continue to monitor the patient and intervene, if indicated. Case discussed at length with attending, Dr. Kelley. Rob Valles DO, PGY-1
[2017-05-04] MEDS: Meropenem 500 MG in Sodium Chloride 0.9% 100 ML IVPB SCH ×2 (13:25→21:19)
--- NOTE | 2017-05-04 15:29 | PN ---
DATE: SUBJECTIVE: This is an 82-year-old female resting comfortably in bed on telemetry. Nursing staff relates that there were no particular problems during the night. PHYSICAL EXAMINATION: VITAL SIGNS: Showed a temperature of 98, her pulse is 61 and regular, and her oxygen saturation is 95%. HEART: S1 and S2 rhythm. LUNGS: Showed rhonchi at the basis. ABDOMEN: Soft and scaphoid. Positive bowel sounds. EXTREMITIES: Showed no evidence of edema. NEUROLOGIC: She is alert and oriented x3. LABORATORY DATA: Shows WBC of 6.1, RBC 3.36, hemoglobin 9.8, hematocrit 31.9, and platelet count 101. Chemistry shows a sodium of 139, potassium 3.8, chloride 98, BUN , creatinine is 6.2, and random blood sugar is 152. Phosphorus 4.8. Magnesium is 1.9. Her AST is 61. The patient is scheduled for dialysis later today. She is being treated for acute diverticulitis of the descending colon, acute cholecystitis. She had a non-STEMI. She has a history of chronic renal disease, on dialysis 4 times a week. She has a history of hypothyroid disease, insulin-dependent diabetes, atherosclerotic heart disease, left hip fracture repair in the past, and carotid disease. Current medications consist of insulin on the sliding scale, Imdur 30 mg daily, K-Dur 20 mEq daily, Lopressor 25 mg twice a day. She is on meropenem IV. She is on MiraLax, which is currently being held. Synthroid 50 mcg daily and Tylenol 2 tablets q. 6 hours p.r.n. for moderate pain. We will continue current level of care. She is being followed by Surgery and Gastroenterology. She has been felt to be at too higher risk. This has been discussed for Surgery and has been discussed with Cardiology as well as GI and Surgery and we will continue her clinical course at this time as she is improving clinically. This was also discussed with the family. Shavonne Ascencio MD
--- NOTE | 2017-05-04 15:35 | CP.PCM.PN ---
Subjective - Date & Time of Evaluation Date of Evaluation: 05/04/17 Time of Evaluation: 10:15 - Subjective Subjective: Still with some right upper quadrant pain, no fevers overnight, not in distress , still with loose stools. Objective - Vital Signs/Intake and Output Vital Signs (last 24 hours): Temp Pulse Resp BP Pulse Ox 98.4 F 61 18 136/53 L 95 05/03/17 18:00 05/04/17 06:00 05/03/17 18:00 05/03/17 18:00 05/03/17 06:00 Intake and Output: 05/04/17 05/04/17 06:59 18:59 Intake Total 220 Balance 220 - Medications Medications: Current Medications Acetaminophen (Tylenol 325mg Tab) 650 mg PO Q6H PRN PRN Reason: Pain, moderate (4-7) Last Admin: 05/03/17 10:07 Dose: 650 mg Aspirin (Aspirin Chewable) 81 mg PO DAILY [facility] Last Admin: 05/03/17 09:58 Dose: 81 mg Meropenem 500 mg/ Sodium (Chloride) 100 mls @ 100 mls/hr IVPB Q12 [facility] PRN Reason: Protocol Last Admin: 05/03/17 21:38 Dose: 100 mls/hr Insulin Human Regular (Humulin R Low) 0 units SC ACHS [facility] PRN Reason: Protocol Last Admin: 05/04/17 08:01 Dose: Not Given Isosorbide Mononitrate (Imdur Er) 30 mg PO 0600 [facility] Last Admin: 05/04/17 05:57 Dose: Not Given Levothyroxine Sodium (Synthroid) 50 mcg PO ACB [facility] Last Admin: 05/04/17 08:00 Dose: 50 mcg Metoprolol Tartrate (Lopressor) 25 mg PO BRKDIN [facility] Last Admin: 05/04/17 08:00 Dose: 25 mg Polyethylene Glycol (Miralax) 17 gm PO BID [facility] Last Admin: 05/03/17 18:46 Dose: Not Given Potassium Chloride (K-Dur 20 Meq Er Tab) 20 meq PO BRK [facility] Last Admin: 05/04/17 08:00 Dose: 20 meq - Labs Labs: 05/04/17 06:00 05/04/17 06:00 PT 13.9 SECONDS (9.4-12.5) H 04/30/17 20:50 INR 1.21 (0.93-1.08) H 04/30/17 20:50 APTT 31.9 Seconds (25.1-36.5) 04/30/17 20:50 - Constitutional Appears: Chronically Ill - Head Exam Head Exam: NORMAL INSPECTION - Neck Exam Neck Exam: absent: Meningismus - Respiratory Exam Respiratory Exam: Decreased Breath Sounds - Cardiovascular Exam Cardiovascular Exam: +S1, +S2 - GI/Abdominal Exam GI & Abdominal Exam: Soft, Tenderness (mild RUQ). absent: Distended, Guarding, Rigid, Rebound Assessment and Plan - Assessment and Plan (Free Text) Plan: Assessment severe sepsis with acute sigmoid diverticulitis and acute cholecystitis history of acute NSTEMI history of sepsis due to acute descending colon diverticulitis and bilateral lobe healthcare-associated pneumonia history of healthcare-associated pneumonia (right upper lobe, bilateral lower lobes) HTN DM CAD with chronic CHF ESRD on HD Plan continue Merrem pending further plans by Surgery and GI for intervention for the gallbladder will continue to monitor clinically
--- NOTE | 2017-05-04 16:10 | PN ---
DATE: 05/04/2017 ADDENDUM This is a addendum to a progress note performed by Starr Bowers APN. I have personally examined this patient and reviewed her laboratory data. I have discussed this case with Dr. Ascencio and Dr. Kelley. I agree with Starr Bowers' assessment and recommendations. The patient has acute cholecystitis, but is at high risk for surgery given all her other medical problems. She also had positive troponins on admission to the hospital. I do not believe that the patient needs a percutaneous cholecystostomy. Her cholecystitis is clinically improving. She is in much less abdominal pain. We will continue IV antibiotics and conservative treatment. Andre Cat MD
--- NOTE | 2017-05-04 17:24 | PN ---
DATE: 05/04/2017 SUBJECTIVE: The patient is seen, lying in bed. She is awake. She is alert. She is comfortable. She is complaining of diarrhea. She has no abdominal pain. She has no fever. PHYSICAL EXAMINATION: GENERAL: Elderly lady, lying in bed. VITAL SIGNS: Blood pressure 136/53, heart rate 66, respiratory rate 18, temperature 98.4. HEENT: Normocephalic, atraumatic, positive pallor. NECK: Supple, no JVD. LUNGS: Bilateral equal entry, equal expansion, no rales. CARDIAC: S1, S2, regular rate and rhythm, no murmur, no rub. ABDOMEN: Soft, nondistended, nontender, bowel sounds present. EXTREMITIES: No lower extremity edema. INTAKE AND OUTPUT: Not charted. LABORATORY DATA: WBC 6, hemoglobin 9.8, hematocrit 32, platelets 101. Sodium 139, potassium 3.8, chloride 98, CO2 of 25, BUN 54, creatinine 6.2, glucose 152, calcium 8.3, phosphorus 4.8 magnesium 1.9, albumin 3.4. CURRENT MEDICATIONS: Insulin, Imdur, potassium given yesterday. Lopressor 25 b.i.d., meropenem 500 q.12, MiraLax, Synthroid, aspirin. ASSESSMENT AND PLAN: 1. Acute cholecystitis. 2. Acute diverticulitis. 3. Hypokalemia. 4. Hypertension. 5. Noninsulin-dependent diabetes mellitus. 6. End-stage renal disease. 7. Coronary artery disease/paroxysmal atrial fibrillation. PLAN: 1. Stable dialysis today, ultrafiltration 1.5 kilos. 2. Continue antibiotics for acute abdomen. 3. Continue antihypertensives. 4. Monitor fingersticks and continue insulin coverage. Barbi Linares MD
[2017-05-05] MEDS: Insulin Reg-LOW-Coverage SC SCH ×5 (00:14→23:18)
[2017-05-05 07:18] LABS: BASO # 0.03 K/mm3 (0.0-2.0); BASO % 0.5 % (0.0-3.0); EOS % 0.2 % (1.5-5.0); GRAN # 2.86 (1.4-6.5); GRAN % 47.8 % (50.0-68.0); HEMOGLOBIN 9.5 g/dL (12.0-16.0); LYMPH # 2.2 (1.2-3.4); LYMPH % 37.5 % (22.0-35.0); MEAN CELL VOLUME 94.1 fl (80.0-105.0); MEAN CORPUSCULAR HEMOGLOBIN 29.5 pg (25.0-35.0); MEAN CORPUSCULAR HGB CONC 31.4 g/dl (31.0-37.0); MEAN PLATELET VOLUME 9.6 fl (7.0-11.0); MONO # 0.8 (0.1-0.6); RBC 3.22 10^6/uL (3.5-6.1); RED CELL DISTRIBUTION WIDTH 15.8 % (11.5-14.5)
[2017-05-05 07:33] LABS: MAGNESIUM 1.7 mg/dL (1.7-2.2)
[2017-05-05 07:47] LABS: CALCIUM 8.4 mg/dL (8.4-10.5)
--- NOTE | 2017-05-05 08:23 | CP.PCM.PN ---
Subjective - Date & Time of Evaluation Date of Evaluation: 05/05/17 Time of Evaluation: 08:00 - Subjective Subjective: General Surgery- Dr. Kelley Patient seen and examined during HD this AM. No acute events overnight. Nursing notes reviewed. Denies acute complaints; RUQ pain continues w/ loose stool. Objective - Vital Signs/Intake and Output Vital Signs (last 24 hours): Temp Pulse Resp BP Pulse Ox 97.5 F L 62 20 150/75 96 05/05/17 06:00 05/05/17 06:00 05/05/17 06:00 05/05/17 06:00 05/05/17 06:00 - Medications Medications: Current Medications Acetaminophen (Tylenol 325mg Tab) 650 mg PO Q6H PRN PRN Reason: Pain, moderate (4-7) Last Admin: 05/03/17 10:07 Dose: 650 mg Meropenem 500 mg/ Sodium (Chloride) 100 mls @ 100 mls/hr IVPB Q12 [facility] PRN Reason: Protocol Last Admin: 05/04/17 21:19 Dose: 100 mls/hr Insulin Human Regular (Humulin R Low) 0 units SC ACHS [facility] PRN Reason: Protocol Last Admin: 05/05/17 00:14 Dose: Not Given Isosorbide Mononitrate (Imdur Er) 30 mg PO 0600 [facility] Last Admin: 05/05/17 05:38 Dose: Not Given Levothyroxine Sodium (Synthroid) 50 mcg PO ACB [facility] Last Admin: 05/04/17 08:00 Dose: 50 mcg Metoprolol Tartrate (Lopressor) 25 mg PO BRKDIN [facility] Last Admin: 05/04/17 16:53 Dose: Not Given Polyethylene Glycol (Miralax) 17 gm PO BID [facility] Last Admin: 05/03/17 18:46 Dose: Not Given Potassium Chloride (K-Dur 20 Meq Er Tab) 20 meq PO BRK [facility] Last Admin: 05/04/17 08:00 Dose: 20 meq - Labs Labs: 05/05/17 07:00 05/05/17 07:00 PT 13.9 SECONDS (9.4-12.5) H 04/30/17 20:50 INR 1.21 (0.93-1.08) H 04/30/17 20:50 APTT 31.9 Seconds (25.1-36.5) 04/30/17 20:50 - Constitutional Appears: Non-toxic, No Acute Distress - Eye Exam Eye Exam: EOMI. absent: Scleral icterus - ENT Exam ENT Exam: Mucous Membranes Moist - Respiratory Exam Respiratory Exam: NORMAL BREATHING PATTERN. absent: Accessory Muscle Use, Respiratory Distress - Cardiovascular Exam Cardiovascular Exam: +S1, +S2. absent: Bradycardia, Tachycardia - GI/Abdominal Exam GI & Abdominal Exam: Guarding, Soft, Tenderness. absent: Distended, Firm, Rigid Additional comments: voluntary guarding tender to deep palpation in RUQ - Neurological Exam Neurological Exam: Alert, Awake - Psychiatric Exam Psychiatric exam: Normal Affect - Skin Skin Exam: Dry, Warm Assessment and Plan - Assessment and Plan (Free Text) Assessment: 82F pmhx significant for diverticulitis; RUQ pain, acute cholecystitis confirmed by HIDA scan. Plan: - discussed the risks and benefits of surgery with patient and health care team - will continue course of conservative management - IVF and Abx - HD as needed - will continue to follow - further recs per Dr. Kelley surgical attending Julio Salinas PGY1
[2017-05-05] MEDS: Potassium Chloride 20 mEq ER Tab PO SCH (09:59)
[2017-05-05] MEDS: Levothyroxine 50 MCG TAB PO SCH (09:59)
[2017-05-05] MEDS: Meropenem 500 MG in Sodium Chloride 0.9% 100 ML IVPB SCH ×2 (10:06→21:35)
--- NOTE | 2017-05-05 17:35 | PN ---
DATE: 05/05/2017 SUBJECTIVE: The patient is seen sitting in bed. She is eating a full liquid lunch. She reports diarrhea. She denies any abdominal pain. She denies any nausea. She complains of being weak. PHYSICAL EXAMINATION: GENERAL: Elderly lady, sitting in bed. VITAL SIGNS: Blood pressure 150/75, heart rate 62, respiratory rate 18, temperature 97.5. HEENT: Normocephalic, atraumatic, positive pallor. NECK: Supple, no JVD. LUNGS: Bilateral equal air entry, rales. CARDIAC: S1, S2, regular rate and rhythm, no murmur, no rub. ABDOMEN: Soft, nondistended, nontender, bowel sounds present. EXTREMITIES: No lower extremity edema. INTAKE AND OUTPUT: Not charted. LABORATORY DATA: WBC 6, hemoglobin 9.5, hematocrit 30, platelets 96. Sodium 138, potassium 3.7, chloride 96, CO2 29, BUN 26, creatinine 4.2, glucose 147. MEDICATIONS: List reviewed. ASSESSMENT AND PLAN: 1. Acute diverticulitis/acute cholecystitis, improving. 2. Coronary artery disease, congestive heart failure, cardiomyopathy, paroxysmal atrial fibrillation. 3. End-stage renal disease. 4. Anemia of chronic kidney disease. 5. Mild hypokalemia. 6. Noninsulin-dependent diabetes mellitus. PLAN: 1. Continue antibiotics as per ID recommendations. 2. ? advance diet. 3. Continue potassium replacement. 4. Physical therapy. 5. Next dialysis Sunday. Barbi Linares MD
--- NOTE | 2017-05-06 00:50 | PN ---
DATE: 05/05/2017 SUBJECTIVE: The patient is seen early this morning in 277, bed 2. No fevers or chills. No nausea. Doing well. PHYSICAL EXAMINATION: VITAL SIGNS: Temperature is 97, blood pressure is 130/60, respiratory rate is 18, and heart rate is 104. HEENT: Unremarkable. NECK: Supple. LUNGS: Decreased breath sounds. HEART: Normal S1 and S2. ABDOMEN: Soft and nontender. LABORATORY DATA: Reveals a white count of 6, hemoglobin of 9, and platelets of 96. BUN of 26 and creatinine of 4.2. Urinalysis is noted and stool occult positive. Influenza is negative. Microbiology reveals blood cultures are negative. Urine cultures are negative. Review of orders reveals the patient to be on meropenem. ASSESSMENT AND PLAN: This is an 82-year-old female with severe sepsis with acute sigmoid diverticulitis, acute cholecystitis and with an acute non-ST elevation myocardial infarction with history of hypertension, diabetes, coronary artery disease, and chronic congestive heart failure, end-stage renal disease, on hemodialysis; currently on meropenem; and we will follow with you. Dr. So's note is reviewed. Jeromy Castellanos MD
[2017-05-06 06:56] LABS: BASO # 0.03 K/mm3 (0.0-2.0); BASO % 0.6 % (0.0-3.0); EOS % 0.4 % (1.5-5.0); GRAN # 2.39 (1.4-6.5); GRAN % 46.7 % (50.0-68.0); HEMOGLOBIN 9.4 g/dL (12.0-16.0); LYMPH # 2.1 (1.2-3.4); MEAN CORPUSCULAR HEMOGLOBIN 29.1 pg (25.0-35.0); MEAN CORPUSCULAR HGB CONC 30.3 g/dl (31.0-37.0); MEAN PLATELET VOLUME 9.9 fl (7.0-11.0); MONO # 0.6 (0.1-0.6); MONO % 11.3 % (1.0-6.0); RBC 3.23 10^6/uL (3.5-6.1); RED CELL DISTRIBUTION WIDTH 16.1 % (11.5-14.5); WHITE BLOOD COUNT 5.1 10^3/ul (4.5-11.0)
[2017-05-06] MEDS: Insulin Reg-LOW-Coverage SC SCH ×4 (08:03→22:21)
[2017-05-06] MEDS: Levothyroxine 50 MCG TAB PO SCH (08:06)
[2017-05-06] MEDS: Potassium Chloride 20 mEq ER Tab PO SCH (08:06)
[2017-05-06] MEDS: Meropenem 500 MG in Sodium Chloride 0.9% 100 ML IVPB SCH ×2 (09:53→21:41)
--- NOTE | 2017-05-06 10:28 | CP.PCM.PN ---
Subjective - Date & Time of Evaluation Date of Evaluation: 05/06/17 Time of Evaluation: 07:20 - Subjective Subjective: Surgery Progress note. Dr. Kelley Pt seen and examined at bedside. No acute events overnight. No F/C. No CP/SOB. No new complaints. Reports that abdominal pain is improving. Objective - Vital Signs/Intake and Output Vital Signs (last 24 hours): Temp Pulse Resp BP Pulse Ox 97.7 F 98 H 18 154/66 H 100 05/06/17 06:00 05/06/17 08:06 05/06/17 06:00 05/06/17 08:06 05/06/17 06:00 Intake and Output: 05/06/17 05/06/17 06:59 18:59 Intake Total 420 Output Total 1 Balance 419 - Medications Medications: Current Medications Acetaminophen (Tylenol 325mg Tab) 650 mg PO Q6H PRN PRN Reason: Pain, moderate (4-7) Last Admin: 05/05/17 17:53 Dose: 650 mg Meropenem 500 mg/ Sodium (Chloride) 100 mls @ 100 mls/hr IVPB Q12 [facility] PRN Reason: Protocol Last Admin: 05/06/17 09:53 Dose: 100 mls/hr Insulin Human Regular (Humulin R Low) 0 units SC ACHS [facility] PRN Reason: Protocol Last Admin: 05/06/17 08:03 Dose: Not Given Isosorbide Mononitrate (Imdur Er) 30 mg PO 0600 [facility] Last Admin: 05/06/17 05:46 Dose: 30 mg Levothyroxine Sodium (Synthroid) 50 mcg PO ACB [facility] Last Admin: 05/06/17 08:06 Dose: 50 mcg Metoprolol Tartrate (Lopressor) 25 mg PO BRKDIN [facility] Last Admin: 05/06/17 08:06 Dose: 25 mg Polyethylene Glycol (Miralax) 17 gm PO BID [facility] Last Admin: 05/03/17 18:46 Dose: Not Given Potassium Chloride (K-Dur 20 Meq Er Tab) 20 meq PO BRK [facility] Last Admin: 05/06/17 08:06 Dose: 20 meq - Labs Labs: 05/06/17 06:30 05/05/17 07:00 PT 13.9 SECONDS (9.4-12.5) H 04/30/17 20:50 INR 1.21 (0.93-1.08) H 04/30/17 20:50 APTT 31.9 Seconds (25.1-36.5) 04/30/17 20:50 - Constitutional Appears: Non-toxic, No Acute Distress - Head Exam Head Exam: ATRAUMATIC, NORMAL INSPECTION, NORMOCEPHALIC - Eye Exam Eye Exam: EOMI - ENT Exam ENT Exam: Mucous Membranes Moist - Respiratory Exam Respiratory Exam: NORMAL BREATHING PATTERN. absent: Accessory Muscle Use, Respiratory Distress - Cardiovascular Exam Cardiovascular Exam: absent: JVD - GI/Abdominal Exam GI & Abdominal Exam: Soft. absent: Distended, Firm, Guarding, Rigid, Rebound Additional comments: Mild RUQ abd tenderness on palpation - Extremities Exam Extremities Exam: Normal Inspection. absent: Calf Tenderness - Neurological Exam Neurological Exam: Alert, Awake, Oriented x3 - Skin Skin Exam: Dry, Intact, Normal Color, Warm Assessment and Plan - Assessment and Plan (Free Text) Assessment: 82yo F with hx of diverticulitis; Here with RUQ pain, acute cholecystitis Plan: - Continue conservative management; As per discussions with patient and primary attending - IVF and Abx - f/u stool studies - Advance diet as tolerated - will continue to follow Further recs as per Dr. Warren Pink PGY1 surgery pager: [phone]
--- NOTE | 2017-05-06 15:11 | PN ---
DATE: SUBJECTIVE: This is a 89-year-old female resting comfortably on telemetry. The patient is a chronic renal dialysis patient, presented with abdominal pain, was found to have acute cholecystitis and diverticulitis with an elevation of cardiac troponins. PHYSICAL EXAMINATION: GENERAL: He is alert and oriented x3. VITAL SIGNS: Temperature of 97, her pulse is 70, blood pressure is 154/66, respiratory rate is 18, and oxygen saturation is reported at 99% on room air. LUNGS: Clear. HEART: S1 and S2 rhythm. ABDOMEN: Soft, positive bowel sounds. EXTREMITIES: No evidence of edema. LABORATORY DATA: Shows random blood sugar was 137. MEDICATIONS: She is currently on sliding insulin scale for her diabetes, Imdur 30 mg daily, K-Dur 20 mEq daily, Lopressor 25 mg twice a day, Meropenem IV q.12, MiraLax 17 g b.i.d., Synthroid 50 mcg daily, and Tylenol 2 tabs q.6 hours p.r.n. for moderate pain. ASSESSMENT AND PLAN: She continued to be followed by Infectious Disease, Renal and GI. Surgery was asked to see the patient. However, she was felt to be too high risk for surgery and clinically she was improving. So, the recommendation was to continue current medical management. She is also being followed by Cardiology. Shavonne Ascencio MD cc:
--- NOTE | 2017-05-06 18:07 | PN ---
DATE: Covering for Ysabel Theodore MD SUBJECTIVE: The patient is lying in bed, comfortable. The patient states that her abdominal pain is improving. She denies any nausea and vomiting. MEDICATIONS: Currently include Isordil 30 mg once a day, K-Dur 20 mg once a day, Lopressor 25 mg twice a day, meropenem 500 mg IV q. 12 hours, polyethylene glycol 17 g p.o. b.i.d., and Levoxyl 50 mcg once a day. PHYSICAL EXAMINATION VITAL SIGNS: Reveal temperature of 98, blood pressure 143/79, heart rate of 100. HEENT: Reveal sclerae to be white. Conjunctivae pink. NECK: Supple. CHEST: Reveal lungs to be clear. HEART: Exam reveals a regular rate and rhythm. ABDOMEN: Soft, mild right upper quadrant tenderness to deep palpation. No rebound or guarding. EXTREMITIES: Show no edema. She has a AV shunt in her left arm. LABORATORY DATA: Reveal white blood cell count 5.1, hemoglobin 9.4, platelet count of 98,000. Chemistries reveal blood sugar of 129. IMPRESSION: 1. Acute cholecystitis. 2. Diverticulitis of the descending colon. 3. End-stage renal disease. 4. Anemia. RECOMMENDATIONS: 1. Continue conservative medical management as the patient is high risk for surgery given her comorbidities. Note, she did have an elevated troponin on admission to the hospital. Continue IV meropenem. 2. Advance the patient to a low-fat, low residue diet. 3. Continue close observation for clinical deterioration. Gaurav Hodges MD
--- NOTE | 2017-05-06 20:47 | PN ---
DATE: SUBJECTIVE: The patient is in bed, in no acute distress, but seen early this morning in room 277, bed 2. She is complaining of weakness; however no fevers or chills. No nausea. OBJECTIVE: VITAL SIGNS: Temperature is 98, blood pressure is 160/60, respiratory rate of 22, and heart rate of 101. HEENT: Unremarkable. NECK: Supple. LUNGS: Have decreased breath sounds. HEART: Normal S1 and S2. ABDOMEN: Soft and nontender. LABORATORY DATA: Reveals a white count of 5.1, hemoglobin of 9, and platelets of 98. Chemistries reveals the patient's BUN of 26 and creatinine of 4.2. Urinalysis is noted and influenza is negative. Review of orders reveals the patient to be on meropenem. ASSESSMENT AND PLAN: An 82-year-old female with severe sepsis with acute sigmoid diverticulitis and acute cholecystitis. She has a non-ST elevation myocardial infarction, history of hypertension, diabetes, coronary artery disease, chronic congestive heart failure, end-stage renal disease, hemodialysis and currently on meropenem.. Dr. Gaurav Hodges's note is reviewed.. We will follow closely with you. Dr. Hodges recommends conservative management, the patient is high risk for surgery and recent ND. Case was discussed with Dr. Ascencio this morning. Jeromy Castellanos MD
--- NOTE | 2017-05-07 02:44 | PN ---
DATE: 05/06/2017 SUBJECTIVE: The patient is seen lying in bed. She is awake. She is alert. Complains of being very weak. She denies any abdominal pain. She is still has some diarrhea. PHYSICAL EXAMINATION: GENERAL: Elderly lady lying in bed. VITAL SIGNS: Blood pressure 162/67, heart rate 101, respiratory rate 22, temperature 98. HEENT: Normocephalic, atraumatic. NECK: Supple, no JVD. LUNGS: Bilateral equal entry, rales. EXTREMITIES: No lower extremity edema. LABORATORY DATA: WBC 5, hemoglobin 9.4, hematocrit 31, platelets 98. Sodium. No chemistry. CURRENT MEDICATIONS: Insulin, Imdur, K-Dur, Lopressor, meropenem 500 q. 12 h., Synthroid, and Tylenol. ASSESSMENT: 1. She acute cholecystitis/acute diverticulitis. 2. Hypertension. 3. Non-insulin dependent diabetes mellitus. 4. End-stage renal disease. PLAN: 1. Continue antibiotics as per ID. 2. Continue current antihypertensives. 3. Next dialysis tomorrow. Barbi Linares MD
[2017-05-07 06:32] LABS: HEMOGLOBIN 8.7 g/dL (12.0-16.0); MEAN CELL VOLUME 95.9 fl (80.0-105.0); MEAN CORPUSCULAR HEMOGLOBIN 29.5 pg (25.0-35.0); MEAN CORPUSCULAR HGB CONC 30.7 g/dl (31.0-37.0); MEAN PLATELET VOLUME 9.8 fl (7.0-11.0); RBC 2.95 10^6/uL (3.5-6.1); RED CELL DISTRIBUTION WIDTH 16.4 % (11.5-14.5); WHITE BLOOD COUNT 5.1 10^3/ul (4.5-11.0)
[2017-05-07 06:59] LABS: CALCIUM 8.3 mg/dL (8.4-10.5)
[2017-05-07] MEDS: Insulin Reg-LOW-Coverage SC SCH ×3 (07:53→17:17)
[2017-05-07] MEDS: Levothyroxine 50 MCG TAB PO SCH (08:05)
[2017-05-07] MEDS: Potassium Chloride 20 mEq ER Tab PO SCH (08:05)
--- NOTE | 2017-05-07 09:14 | PN ---
DATE: 05/05/2017 SUBJECTIVE: The patient is resting in bed this morning. She states that she is more comfortable. Nursing staff relates that there were no problems during the night. PHYSICAL EXAMINATION: VITAL SIGNS: Temperature is 97.7, her pulse is 104, blood pressure is 135/61, respiratory rate is 18, and oxygen saturation is 95% on room air. NECK: Supple. LUNGS: Show diminished breath sounds at the bases. HEART: S1 and S2 rhythm. ABDOMEN: Soft, scaphoid. Positive bowel sounds. EXTREMITIES: Shows no evidence of edema. Microbiological studies to date are negative of urine and blood. LABORATORY DATA: Shows WBC of 6, hemoglobin of 9.5, hematocrit of 30.3, and platelet count of 96,000. Chemistry shows normal chemistries with BUN of 26, creatinine of 4.2, and random blood sugar is 124. ASSESSMENT AND PLAN: The patient is currently receiving IV antibiotics for acute cholecystitis and diverticulitis. She is being followed by GI and Infectious Disease. She has been seen by Cardiology for non-ST myocardial infarction with elevated troponins. She is being followed by Renal for her chronic renal disease. She will continue the current medical management at this time as per the individual consultants and continue dialysis 4 times a week. She is on a sliding insulin scale with Synthroid replacement for hypothyroid disease. She is on Imdur 30 mg daily, potassium chloride 20 mEq daily, Lopressor 25 mg b.i.d., meropenem IV daily, MiraLax 17 g b.i.d., Tylenol 2 tablets q.6 hours p.r.n. for moderate pain, and Synthroid 50 mcg daily. The patient and her family understand her clinical status at this time and studies that have been done. She is also being monitored by Surgery. Shavonne Ascencio MD
--- NOTE | 2017-05-07 09:21 | CP.PCM.PN ---
Subjective - Date & Time of Evaluation Date of Evaluation: 05/07/17 Time of Evaluation: 07:40 - Subjective Subjective: General Surgery Progress Note for Dr. Kelley Patient seen and examined at bedside. Patient reports having an appetite and has less abdominal pain. She denies nausea, vomiting, or post-prandial pain. Nurse report no events overnight. Objective - Vital Signs/Intake and Output Vital Signs (last 24 hours): Temp Pulse Resp BP Pulse Ox 98.1 F 76 18 150/55 L 100 05/07/17 06:00 05/07/17 06:00 05/07/17 06:00 05/07/17 08:05 05/07/17 06:00 Intake and Output: 05/07/17 05/07/17 06:59 18:59 Intake Total 340 Balance 340 - Medications Medications: Current Medications Acetaminophen (Tylenol 325mg Tab) 650 mg PO Q6H PRN PRN Reason: Pain, moderate (4-7) Last Admin: 05/05/17 17:53 Dose: 650 mg Meropenem 500 mg/ Sodium (Chloride) 100 mls @ 100 mls/hr IVPB Q12 [facility] PRN Reason: Protocol Last Admin: 05/06/17 21:41 Dose: 100 mls/hr Insulin Human Regular (Humulin R Low) 0 units SC ACHS [facility] PRN Reason: Protocol Last Admin: 05/07/17 07:53 Dose: Not Given Isosorbide Mononitrate (Imdur Er) 30 mg PO 0600 [facility] Last Admin: 05/07/17 05:07 Dose: 30 mg Levothyroxine Sodium (Synthroid) 50 mcg PO ACB [facility] Last Admin: 05/07/17 08:05 Dose: 50 mcg Metoprolol Tartrate (Lopressor) 25 mg PO BRKDIN [facility] Last Admin: 05/07/17 08:05 Dose: 25 mg Polyethylene Glycol (Miralax) 17 gm PO BID [facility] Last Admin: 05/03/17 18:46 Dose: Not Given Potassium Chloride (K-Dur 20 Meq Er Tab) 20 meq PO BRK [facility] Last Admin: 05/07/17 08:05 Dose: 20 meq - Labs Labs: 05/07/17 05:30 05/07/17 05:30 PT 13.9 SECONDS (9.4-12.5) H 04/30/17 20:50 INR 1.21 (0.93-1.08) H 04/30/17 20:50 APTT 31.9 Seconds (25.1-36.5) 04/30/17 20:50 - Constitutional Appears: No Acute Distress, Older Than Stated Age - Head Exam Head Exam: ATRAUMATIC, NORMOCEPHALIC - Eye Exam Eye Exam: EOMI, Normal appearance, PERRL - ENT Exam ENT Exam: Mucous Membranes Moist, Normal Oropharynx - Neck Exam Neck Exam: Normal Inspection - Respiratory Exam Respiratory Exam: NORMAL BREATHING PATTERN. absent: Accessory Muscle Use - Cardiovascular Exam Cardiovascular Exam: RRR, +S1, +S2 - GI/Abdominal Exam GI & Abdominal Exam: Soft, Normal Bowel Sounds. absent: Guarding, Rebound - Neurological Exam Neurological Exam: Alert, Awake, Oriented x3 - Psychiatric Exam Psychiatric exam: Normal Affect, Normal Mood - Skin Skin Exam: Dry, Intact, Normal Color, Warm Assessment and Plan - Assessment and Plan (Free Text) Assessment: 82 year old female with a past medical history of diverticulitis, ESRD on HD MWF , DM II, and hypertension who presented to [facility] for abdominal pain and fall who was found to have left sided diverticulitis, cholecystitis, and a NSTEMI. Throughout the patient's hospital course she had fairly consistent RUQ pain, namely after meals; hence, a RUQ US and HIDA scan were performed that showed findings consistent with cholecystitis. Since admission, the patient's abdominal complaints have diminished and she is reportedly tolerating her regular diet. From a surgical; standpoint, the patient is a poor surgical candidate. Plan: -Continue with medical management. -No surgical intervention planned at this time. -Thank you for allowing us to participate in the care of this patient. Please recall as needed. - Case seen and discussed with attending physician, Dr. Kelley. Rob Valles DO, PGY-1
[2017-05-07] MEDS: Meropenem 500 MG in Sodium Chloride 0.9% 100 ML IVPB SCH ×2 (10:00→17:23)
[2017-05-07 12:14] LABS: MAGNESIUM 1.8 mg/dL (1.7-2.2)
--- NOTE | 2017-05-07 16:39 | PN ---
DATE: 05/07/2017 SUBJECTIVE: The patient was seen in the dialysis unit. She is awake, she is alert. She is comfortable. She reports feeling somewhat better. She denies any further diarrhea. PHYSICAL EXAMINATION: GENERAL: Thinly built elderly lady sitting in chair. VITAL SIGNS: Blood pressure 150/55, heart rate 76, respiratory rate 18, temperature 98. HEENT: Normocephalic, atraumatic, positive pallor. NECK: Supple, no JVD. LUNGS: Bilateral equal entry, no rales. CARDIAC: S1, S2, regular rate and rhythm, positive murmur. ABDOMEN: Soft, nondistended, nontender, bowel sounds present. EXTREMITIES: No lower extremity edema. LABORATORY DATA: WBC 5, hemoglobin 8.7, hematocrit 28, platelets 104. Sodium 139, potassium 5.0, chloride 100, CO2 25, BUN 51, creatinine 7.5, glucose 117, calcium 8.3. CURRENT MEDICATIONS: Insulin, Imdur, potassium 20 mEq daily, Lopressor 25 b.i.d., meropenem 500 q. 12, MiraLAX on hold, Synthroid 50, Tylenol. ASSESSMENT: 1. Acute diverticulitis/acute cholecystitis. 2. Hypertension. 3. Coronary artery disease/paroxysmal atrial fibrillation. 4. End-stage renal disease. 5. Anemia. PLAN: 1. Stable dialysis. 2. Continue antibiotics as per ID recommendations. 3. Continue current antihypertensives. 4. Monitor H and H. Barbi Linares MD
--- NOTE | 2017-05-07 18:46 | CP.PCM.PN ---
Subjective - Date & Time of Evaluation Date of Evaluation: 05/07/17 Time of Evaluation: 10:35 - Subjective Subjective: Abdominal pain is better, no fevers overnight, no nausea or vomiting. Objective - Vital Signs/Intake and Output Vital Signs (last 24 hours): Temp Pulse Resp BP Pulse Ox 98.1 F 76 18 156/55 H 100 05/07/17 06:00 05/07/17 06:00 05/07/17 06:00 05/07/17 06:00 05/07/17 06:00 Intake and Output: 05/07/17 05/07/17 06:59 18:59 Intake Total 340 Balance 340 - Medications Medications: Current Medications Acetaminophen (Tylenol 325mg Tab) 650 mg PO Q6H PRN PRN Reason: Pain, moderate (4-7) Last Admin: 05/05/17 17:53 Dose: 650 mg Meropenem 500 mg/ Sodium (Chloride) 100 mls @ 100 mls/hr IVPB Q12 [facility] PRN Reason: Protocol Last Admin: 05/06/17 21:41 Dose: 100 mls/hr Insulin Human Regular (Humulin R Low) 0 units SC ACHS [facility] PRN Reason: Protocol Last Admin: 05/06/17 22:21 Dose: Not Given Isosorbide Mononitrate (Imdur Er) 30 mg PO 0600 [facility] Last Admin: 05/07/17 05:07 Dose: 30 mg Levothyroxine Sodium (Synthroid) 50 mcg PO ACB [facility] Last Admin: 05/06/17 08:06 Dose: 50 mcg Metoprolol Tartrate (Lopressor) 25 mg PO BRKDIN [facility] Last Admin: 05/06/17 17:17 Dose: 25 mg Polyethylene Glycol (Miralax) 17 gm PO BID [facility] Last Admin: 05/03/17 18:46 Dose: Not Given Potassium Chloride (K-Dur 20 Meq Er Tab) 20 meq PO BRK [facility] Last Admin: 05/06/17 08:06 Dose: 20 meq - Labs Labs: 05/07/17 05:30 05/07/17 05:30 PT 13.9 SECONDS (9.4-12.5) H 04/30/17 20:50 INR 1.21 (0.93-1.08) H 04/30/17 20:50 APTT 31.9 Seconds (25.1-36.5) 04/30/17 20:50 - Constitutional Appears: Chronically Ill - Head Exam Head Exam: NORMAL INSPECTION - ENT Exam ENT Exam: Mucous Membranes Moist - Neck Exam Neck Exam: absent: Meningismus - Respiratory Exam Respiratory Exam: Decreased Breath Sounds - Cardiovascular Exam Cardiovascular Exam: +S1, +S2 - GI/Abdominal Exam GI & Abdominal Exam: Soft. absent: Tenderness Assessment and Plan - Assessment and Plan (Free Text) Plan: Assessment severe sepsis with acute sigmoid diverticulitis and acute cholecystitis history of acute NSTEMI history of sepsis due to acute descending colon diverticulitis and bilateral lobe healthcare-associated pneumonia history of healthcare-associated pneumonia (right upper lobe, bilateral lower lobes) HTN DM CAD with chronic CHF ESRD on HD Plan continue Merrem pending further plans by Surgery and GI for intervention for the gallbladder - discussed with Dr. Theodore will continue to monitor clinically
--- NOTE | 2017-05-07 23:06 | PN ---
DATE: SUBJECTIVE: An 82-year-old female on telemetry, status post non-STEMI, being treated with IV for acute cholecystitis and diverticulitis, on chronic dialysis 4 times a week. PHYSICAL EXAMINATION: GENERAL: She is alert and oriented x3. VITAL SIGNS: Show a temperature of 97.9, pulse is 76, blood pressure is 139/64, respiratory rate is 19, oxygen saturation on 2L is 100%. LUNGS: Clear. HEART: S1, S2 rhythm. ABDOMEN: Soft with positive bowel sounds. EXTREMITIES: Show no evidence of edema. LABORATORY DATA: Shows a WBC of 5.1, RBC of 2.95, hemoglobin 8.7, hematocrit 28.3, and platelet count of 104,000. Chemistries, pre-dialysis shows sodium 139, potassium 5, chloride 100, CO2 of 25, BUN is 51, creatinine is 7.5. Blood sugar is 117. Calcium is 8.3, phosphorous 4.2, magnesium 1.8. MEDICATIONS: Currently, the patient is continuing the course of her meropenem and is on MiraLax p.o. b.i.d., K-Dur 20 mEq daily, Imdur 30 mg daily, low-dose regular insulin sliding scale, metoprolol 25 mg p.o. b.i.d., MiraLax 17 gm b.i.d., Synthroid 50 mcg daily, and Tylenol two tabs q.6 hours p.r.n. for pain. ASSESSMENT AND PLAN: We will continue current level of care. Physical therapy has seen the patient at [facility], request has been placed. We will continue to monitor the patient closely, while she completes the course of antibiotics for the above-mentioned infections. Shavonne Ascencio MD
--- NOTE | 2017-05-08 00:09 | PN ---
DATE: 05/07/2017 SUBJECTIVE: This patient was seen and evaluated earlier today. The patient is feeling slightly better. PHYSICAL EXAMINATION: VITAL SIGNS: Temperature is 97.9, pulse is 100, blood pressure is 139/64, and respirations are 19. HEENT: Atraumatic. Anicteric. NECK: Supple. HEART: S1 and S2 heard. LUNGS: Bilateral air entry present. ABDOMEN: Soft. There is mild tenderness present in the epigastric and right upper quadrant area. There is also mild tenderness in the left lower quadrant area. No rebound or guarding. EXTREMITIES: No cyanosis. No clubbing. NEUROLOGIC: Alert and oriented. Moves all the extremities. LABORATORY DATA: Hemoglobin of 8.7, hematocrit of 28.3, WBC of 5.1, and platelet count of 104. Chemistry is essentially unremarkable. BUN is 51 and creatinine is 7.5. IMPRESSION: This is an 82-year-old patient with a history of end-stage renal disease on hemodialysis; abdominal pain and the patient had distended gallbladder with small stones. HIDA scan showed non-visualized gallbladder as well as history of possible cystitis. Continue on empiric antibiotic coverage. History of coronary artery disease, paroxysmal atrial fibrillation, end-stage renal disease on hemodialysis, and hypertension. RECOMMENDATIONS: 1. Continue the antibiotics as per ID. 2. Chronic anemia. We will follow up her hemoglobin and hematocrit and complete the dose of antibiotics as per ID. if pt develops worsening of symptoms, the patient may benefit from cholecystotomy and at the moment appeared to be clinically improving. We will continue the present conservative management and the patient has been also followed by the surgical team. Thank you very much for allowing us to participate in the care of the patient. Ysabel Theodore MD MELANIE
[2017-05-08 01:33] VITALS: O2SAT 99
--- NOTE | 2017-05-08 07:55 | PQF SEPSIS ---
This form is a permanent part of the medical record Dr. Ascencio, Patient was admitted with acute diverticulitis and acute cholecystitis. ID consult and subsequent documentation noted patient had severe sepsis. Please specify if you concur with this diagnosis, was it ruled out? Clarification of your documentation is requested to better reflect the severity of illness and intensity of treatment of your patient. Indicators present [x] Temp < 96.8 or > 100.4 Temp 103.4 [] WBC count > 12,000/mm3 or <000/mm3 or 10% immature neutrophils [x] Heart Rate > 90 [] Respiratory Rate > 20 [x] Fever or hypothermia [] Chills [] Positive blood cultures [x] Hypotension [] Metabolic acidosis (Elevated lactate level, anion gap or reduced blood pH) [] Acute confusion /Altered Mental Status [] Shock [] Other: [] Diagnosed with acute diverticulitis and acute cholecystitis Location in the medical record that reflects the above clinical findings: [] Treatment Provided: [] PHYSICIAN'S RESPONSE Based on your medical judgment of the clinical indicators outlined above, are you treating this patient for a known or suspected: [x] Sepsis / Septicemia Please specify organism if known [] [] SIRS (Systemic Inflammatory Response Syndrome) [] Severe Sepsis (Sepsis with Associated Organ Dysfunction) [] Fever of Unknown Origin [] Other, please indicate: [] [] If Unable to Determine, please check the box, sign and date. Present On Admission (POA) Indicator: [] Present at the time of admission [] Not present at the time of admission [] Clinically Undetermined In responding to this query, please exercise your independent professional judgment. The fact that a question is asked does not imply that any particular answer is desired or expected. Thank you for your clarification on this documentation. If you have any questions please call:[ ] * Thank you, [ ]Troy Bean [facility] #[id number] grinding room supervisor MELANIE
[2017-05-08] MEDS: Potassium Chloride 20 mEq ER Tab PO SCH (08:35)
[2017-05-08] MEDS: Levothyroxine 50 MCG TAB PO SCH (08:37)
[2017-05-08] MEDS: Insulin Reg-LOW-Coverage SC SCH ×3 (08:39→17:44)
[2017-05-08 10:22] VITALS: RESP 18; TEMP 97.7
--- NOTE | 2017-05-08 14:17 | CP.PCM.PN ---
<Starr Bowers - Last Filed: 05/08/17 14:15> Subjective - Date & Time of Evaluation Date of Evaluation: 05/08/17 Time of Evaluation: 10:55 - Subjective Subjective: Seen and examined at the bedside earlier today, patient denies nausea, vomiting , abdominal pain has improved. Denies shortness of breath or chest pain. Having BMs, no diarrhea or bleeding. Feel little better. No new complaints. Objective - Vital Signs/Intake and Output Vital Signs (last 24 hours): Temp Pulse Resp BP Pulse Ox 97.7 F 70 18 160/60 H 99 05/08/17 07:00 05/08/17 08:35 05/08/17 07:00 05/08/17 08:35 05/08/17 07:00 Intake and Output: 05/08/17 05/08/17 06:59 18:59 Intake Total 0 Output Total 0 Balance 0 - Medications Medications: Current Medications Acetaminophen (Tylenol 325mg Tab) 650 mg PO Q6H PRN PRN Reason: Pain, moderate (4-7) Last Admin: 05/05/17 17:53 Dose: 650 mg Meropenem 500 mg/ Sodium (Chloride) 100 mls @ 100 mls/hr IVPB 1800 [facility] PRN Reason: Protocol Last Admin: 05/07/17 17:23 Dose: 100 mls/hr Insulin Human Regular (Humulin R Low) 0 units SC ACHS [facility] PRN Reason: Protocol Last Admin: 05/08/17 12:09 Dose: Not Given Isosorbide Mononitrate (Imdur Er) 30 mg PO 0600 [facility] Last Admin: 05/08/17 06:35 Dose: 30 mg Levothyroxine Sodium (Synthroid) 50 mcg PO ACB [facility] Last Admin: 05/08/17 08:37 Dose: 50 mcg Metoprolol Tartrate (Lopressor) 25 mg PO BRKDIN [facility] Last Admin: 05/08/17 08:35 Dose: 25 mg Polyethylene Glycol (Miralax) 17 gm PO BID [facility] Last Admin: 05/03/17 18:46 Dose: Not Given Potassium Chloride (K-Dur 20 Meq Er Tab) 20 meq PO BRK [facility] Last Admin: 05/08/17 08:35 Dose: 20 meq - Labs Labs: 05/07/17 05:30 05/07/17 05:30 PT 13.9 SECONDS (9.4-12.5) H 04/30/17 20:50 INR 1.21 (0.93-1.08) H 04/30/17 20:50 APTT 31.9 Seconds (25.1-36.5) 04/30/17 20:50 - Constitutional Appears: No Acute Distress - Eye Exam Eye Exam: Normal appearance. absent: Scleral icterus - ENT Exam ENT Exam: Mucous Membranes Moist - Respiratory Exam Respiratory Exam: NORMAL BREATHING PATTERN. absent: Respiratory Distress - Cardiovascular Exam Cardiovascular Exam: +S1, +S2 - GI/Abdominal Exam GI & Abdominal Exam: Soft, Normal Bowel Sounds. absent: Guarding, Tenderness, Rebound - Extremities Exam Extremities Exam: absent: Calf Tenderness, Pedal Edema - Neurological Exam Neurological Exam: Alert, Awake, Oriented x3 - Skin Skin Exam: Dry, Warm Assessment and Plan - Assessment and Plan (Free Text) Assessment: Assessment: Improving cholecystitis Acute diverticulitis? NSTEMI Status post fall, CAT scan of the head negative for intracranial hemorrhage End-stage renal disease on dialysis Chronic anemia Diabetes mellitus Chronic constipation Plan: On IV antibiotics as per ID, on Meropenum Miralax was placed on hold, pt was having loose stool, can resume if getting consitpated. on aspirin PPI on low residual soft diet plan for TCU Seen and discussed with Dr. Theodore. <Ysabel Theodore V - Last Filed: 05/09/17 23:17> Objective - Vital Signs/Intake and Output Vital Signs (last 24 hours): Temp Pulse Resp BP Pulse Ox 97.7 F 101 H 18 136/50 L 99 05/08/17 07:00 05/08/17 17:45 05/08/17 07:00 05/08/17 17:45 05/08/17 07:00 - Labs Labs: 05/07/17 05:30 05/07/17 05:30 PT 13.9 SECONDS (9.4-12.5) H 04/30/17 20:50 INR 1.21 (0.93-1.08) H 04/30/17 20:50 APTT 31.9 Seconds (25.1-36.5) 04/30/17 20:50 Attending/Attestation - Attestation I have personally seen and examined this patient.: Yes I have fully participated in the care of the patient.: Yes I have reviewed all pertinent clinical information, including history, physical exam and plan: Yes Notes (Text): This is an addendum to GI progress report dictated by Starr Bowers APN.The patient was seen and examined earlier. Medical records, lab studies, imagings were reviewed. Last 24 hours events reviewed. Agreed with the above treatment plan as outlined in Starr Bowers APN's notes the with the addition of the following On examination the significant improvement of the tenderness in the right upper quadrant area and epigastric area. A slightly clinically appears to be responding to antibiotics patient has mild persistent discomfort in the left lower quadrant Tolerating the diet scheduled for renal dialysis. Patient is scheduled to be transferred to TCU for completion of antibiotic course Discussed with the Dr. Ascencio earlier 05/09/17 01:03
--- NOTE | 2017-05-08 15:36 | PN ---
DATE: 05/08/2017 SUBJECTIVE: An 82-year-old female lying in bed, this morning. Nursing staff relates that there are no particular problems during the night. PHYSICAL EXAMINATION: GENERAL: She is alert. VITAL SIGNS: Her temperature 97.6, pulse 70, blood pressure 153/56, respiratory rate is 20, and oxygen saturation is reported at 99%. LUNGS: Clear. HEART: S1 and S2. ABDOMEN: Soft. Scaphoid. Positive bowel sounds. EXTREMITIES: Show no evidence of edema. LABORATORY DATA: Random blood sugar this morning was 160. ASSESSMENT AND PLAN: The patient is being followed by Renal. She is on chronic dialysis 3 to 4 times a week. She is being followed by GI with history of acute diverticulitis, acute cholecystitis, and positive stool guaiac history with anemia. She is being followed by GI. She has also been seen by Surgery, felt to be at high risk of surgery and clinically she was improving on current medical management. Recommendation was to continue. She has a history of hypothyroid disease on Synthroid replacement therapy and she continues on meropenem IV antibiotics. We will continue the current level of care and completing a course is recommended by Infectious Disease and as per the individual consultants. Shavonne Ascencio MD
[2017-05-08] MEDS: Meropenem 500 MG in Sodium Chloride 0.9% 100 ML IVPB SCH (17:59)
[2017-05-08 18:06] VITALS: BP 136/50; PULSE 101
--- NOTE | 2017-05-08 18:11 | PN ---
DATE: 05/08/2017 SUBJECTIVE: The patient is seen sitting in bed. She is awake. She is alert. She is comfortable. PHYSICAL EXAMINATION GENERAL: Elderly lady sitting in bed. VITAL SIGNS: Blood pressure 160/60, heart rate 70, respiratory rate 18, temperature 97.7. HEENT: Normocephalic, atraumatic, positive pallor. NECK: Supple, no JVD. LUNGS: Bilateral equal air entry, no rales. CARDIAC: S1 and S2, regular rate and rhythm, no murmur, no rub. ABDOMEN: Soft, nondistended, nontender, bowel sounds present. EXTREMITIES: No lower extremity edema. LABORATORY DATA: No new labs. CURRENT MEDICATIONS: List reviewed. ASSESSMENT/PLAN: 1. Acute cholecystitis. 2. Acute diverticulitis. 3. Non-ST elevation myocardial infarction. 4. Coronary artery disease, history of paroxysmal atrial fibrillation. 5. Tls-rclslzk-lcroupblo diabetes mellitus. 6. Hypertension. 7. End-stage renal disease. PLAN: 1. Continue antibiotics as per ID. 2. Stable dialysis yesterday. 3. Continue fingerstick monitoring and insulin coverage. 4. Discharge planning? Barbi Linares MD
--- NOTE | 2017-05-08 23:13 | PN ---
DATE: 05/08/2017 SUBJECTIVE: The patient is in bed, in no acute distress. PHYSICAL EXAMINATION: VITAL SIGNS: Temperature is 98, blood pressure is 160/60, respiratory rate of 18. HEENT: Unremarkable. NECK: Supple. LUNGS: Have decreased breath sounds. HEART: Normal S1 and S2. ABDOMEN: Soft. LABORATORY DATA: Reveals a white count of 5.1, hemoglobin of 8.7, platelets of 104. Chemistries reveal the patient has a BUN of 51, creatinine of 7.5. Influenza is negative. Review of orders are noted. ASSESSMENT AND PLAN: This is an 82-year-old female with severe sepsis with acute sigmoid diverticulitis, acute cholecystitis with a history of acute non-ST elevation myocardial infarction, history of sepsis for acute descending colon diverticulitis and in anticipation with the acute non-ST elevation myocardial infarction. We will continue the present treatment. The patient for possible discharge. The patient was seen earlier this morning in room 571, bed 2. Jeromy Castellanos MD
== END 2017-05-08 20:33 | DRG 871 ==
LOC: ED 17:34 → ERH 23:10 → 3RNO 05-01 00:11 → 2RSO 05-01 18:04 → 5RSO 05-07 23:49
PROVIDERS: ADMIT Internal Medicine; ATTEND Internal Medicine
PROC: 5A1D70Z Performance of Urinary Filtration, Intermittent, Less than 6 Hours Per Day (ICD-10-PCS; principal; 2017-05-02)
PROC: 5A1D70Z Performance of Urinary Filtration, Intermittent, Less than 6 Hours Per Day (ICD-10-PCS; 2017-05-04)
PROC: 5A1D70Z Performance of Urinary Filtration, Intermittent, Less than 6 Hours Per Day (ICD-10-PCS; 2017-05-07)
DX: A41.9 Sepsis, unspecified organism (principal); K80.00 Calculus of gallbladder with acute cholecystitis without obstruction; K57.32 Diverticulitis of large intestine without perforation or abscess without bleeding; N18.6 End stage renal disease; I21.4 Non-ST elevation (NSTEMI) myocardial infarction; I13.2 Hypertensive heart and chronic kidney disease with heart failure and with stage 5 chronic kidney disease, or end stage renal disease; E11.22 Type 2 diabetes mellitus with diabetic chronic kidney disease; I08.1 Rheumatic disorders of both mitral and tricuspid valves; E11.42 Type 2 diabetes mellitus with diabetic polyneuropathy; N25.81 Secondary hyperparathyroidism of renal origin; I42.9 Cardiomyopathy, unspecified; R65.20 Severe sepsis without septic shock; J44.9 Chronic obstructive pulmonary disease, unspecified; I25.10 Atherosclerotic heart disease of native coronary artery without angina pectoris; Z99.2 Dependence on renal dialysis; E03.9 Hypothyroidism, unspecified; E78.5 Hyperlipidemia, unspecified; K59.09 Other constipation; I50.9 Heart failure, unspecified; K21.9 Gastro-esophageal reflux disease without esophagitis; D63.1 Anemia in chronic kidney disease; I48.0 Paroxysmal atrial fibrillation; G89.29 Other chronic pain; E87.6 Hypokalemia; Z79.4 Long term (current) use of insulin; I25.2 Old myocardial infarction; Z91.81 History of falling; Z96.642 Presence of left artificial hip joint; Z87.01 Personal history of pneumonia (recurrent); Z86.010 Personal history of colon polyps

== ENCOUNTER 2017-05-08 20:33 | Inpatient (IN) | payer OTHER ==
[2017-05-08 21:44] VITALS: BMI 22.6
[2017-05-08] MEDS: Insulin Reg-LOW-Coverage SC SCH (22:23)
[2017-05-09] MEDS: Levothyroxine 50 MCG TAB PO SCH (05:14)
[2017-05-09] MEDS: Insulin Reg-LOW-Coverage SC SCH ×4 (07:00→21:35)
[2017-05-09] MEDS: Potassium Chloride 20 mEq ER Tab PO SCH (08:06)
[2017-05-09] MEDS ORDERED: POLYETHYLENE GLYCOL 3350 17 GM/Dose PACKET PO SCH (10:00)
--- NOTE | 2017-05-09 14:25 | CP.PCM.PN ---
Subjective - Date & Time of Evaluation Date of Evaluation: 05/09/17 Time of Evaluation: 10:45 - Subjective Subjective: Seen and examined late this morning, chart review. Patient now seen in TCU. Patient states she is tired from physical therapy but no reports of nausea, vomiting, right upper quadrant abdominal pain continues to improve. Tolerating oral intake and denies any episodes of diarrhea. Her BM is soft and no blood noted. Objective - Vital Signs/Intake and Output Vital Signs (last 24 hours): Temp Pulse Resp BP Pulse Ox 76 147/56 L 05/09/17 08:07 05/09/17 08:07 Intake and Output: 05/09/17 05/09/17 06:59 18:59 Intake Total 420 Balance 420 - Medications Medications: Current Medications Acetaminophen (Tylenol 325mg Tab) 650 mg PO Q6H PRN; Protocol PRN Reason: Pain, moderate (4-7) Meropenem 500 mg/ Sodium (Chloride) 100 mls @ 100 mls/hr IVPB 1800 [facility] PRN Reason: Protocol Insulin Human Regular (Humulin R Low) 0 units SC ACHS [facility] PRN Reason: Protocol Last Admin: 05/09/17 12:20 Dose: Not Given Isosorbide Mononitrate (Imdur Er) 30 mg PO 0600 [facility] PRN Reason: Protocol Last Admin: 05/09/17 05:14 Dose: 30 mg Levothyroxine Sodium (Synthroid) 50 mcg PO 0600 [facility] PRN Reason: Protocol Last Admin: 05/09/17 05:14 Dose: 50 mcg Metoprolol Tartrate (Lopressor) 25 mg PO 0800,1800 [facility] PRN Reason: Protocol Last Admin: 05/09/17 08:07 Dose: Not Given Polyethylene Glycol (Miralax) 17 gm PO BID [facility] PRN Reason: Protocol Potassium Chloride (K-Dur 20 Meq Er Tab) 20 meq PO 0800 [facility] PRN Reason: Protocol Last Admin: 05/09/17 08:06 Dose: 20 meq - Constitutional Appears: No Acute Distress - Eye Exam Eye Exam: Normal appearance. absent: Scleral icterus - ENT Exam ENT Exam: Mucous Membranes Moist - Neck Exam Neck Exam: Normal Inspection - Respiratory Exam Respiratory Exam: Decreased Breath Sounds, NORMAL BREATHING PATTERN. absent: Respiratory Distress - Cardiovascular Exam Cardiovascular Exam: +S1, +S2 - GI/Abdominal Exam GI & Abdominal Exam: Soft, Normal Bowel Sounds. absent: Guarding, Tenderness, Organomegaly, Rebound - Extremities Exam Extremities Exam: absent: Calf Tenderness, Pedal Edema - Neurological Exam Neurological Exam: Alert, Awake, Oriented x3 Assessment and Plan - Assessment and Plan (Free Text) Assessment: Assessment: Improving cholecystitis Acute diverticulitis? NSTEMI End-stage renal disease on dialysis Chronic anemia Diabetes mellitus Chronic constipation Plan: On IV antibiotics as per ID, on Meropenum on aspirin PPI on low residual soft diet off MiraLAX for now, patient having soft BMs, discussed with patient if she becomes constipated will restart MiraLAX. Seen and discussed with Dr. Theodore.
--- NOTE | 2017-05-09 14:53 | HP ---
HISTORY OF PRESENT ILLNESS: This is an 82-year-old female being admitted to the Transitional Care Unit. She is currently receiving antibiotic therapy for acute diverticulitis of the descending colon and acute cholecystitis. PAST MEDICAL HISTORY: She has a past medical history of non-ST NE, chronic renal disease, chronic anemia, carotid disease, arteriosclerotic heart disease, insulin-dependent diabetes, and hypothyroid disease. REVIEW OF SYSTEMS: Ten systems are reviewed. Pertinent findings are that the patient expresses subjectively that she is feeling tired. MEDICATIONS: Active medication is sliding insulin scale for coverage, Imdur 30 mg daily, K-Dur 20 mEq daily, Lopressor 25 mg twice a day, Miralax 17 g p.o. b.i.d. currently on hold, Synthroid 50 mcg daily, and Tylenol two tabs q.6 hours p.r.n. for moderate pain. She is on meropenem by Infectious Disease mg daily. ALLERGIES: KNOWN TO CEFTRIAXONE. SOCIAL HISTORY: She is a nonsmoker, nondrinker and nondrug user. PHYSICAL EXAMINATION: VITAL SIGNS: Reported it showing temperature of 98.7, her pulse is 76, her blood pressure is 147/56, and respiratory rate is 18. NECK: Supple. LUNGS: Clear. HEART: S1 and S2. ABDOMEN: Soft, scaphoid. Positive bowel sounds. EXTREMITIES: Show no evidence of edema. NEUROLOGIC: She is alert and oriented x3. LABORATORY DATA: Her blood sugar this morning was 96. 1. Completing the course of antibiotics with meropenem for acute diverticulitis and acute cholecystitis, we will continue current plan of treatment pending input from Infectious Disease. 2. She is being followed by Renal for her chronic renal failure. She is on dialysis 4 times a week. She is being seen by GI as well for the above-mentioned problems. I have discussed the clinical setting with her family and with the patient and the staff. We will continue current level of care in this 82-year-old female with multiple medical problems. Shavonne Ascencio MD
[2017-05-09 15:38] LABS: HEMOGLOBIN 8.9 g/dL (12.0-16.0); MEAN CELL VOLUME 94.4 fl (80.0-105.0); MEAN CORPUSCULAR HEMOGLOBIN 29.5 pg (25.0-35.0); MEAN CORPUSCULAR HGB CONC 31.2 g/dl (31.0-37.0); MEAN PLATELET VOLUME 9.3 fl (7.0-11.0); RBC 3.02 10^6/uL (3.5-6.1); RED CELL DISTRIBUTION WIDTH 17.2 % (11.5-14.5); WHITE BLOOD COUNT 5.7 10^3/ul (4.5-11.0)
[2017-05-09] MEDS: Meropenem 500 MG in Sodium Chloride 0.9% 100 ML IVPB SCH (18:41)
[2017-05-09 18:43] LABS: ALB/GLOB RATIO 0.8 (1.1-1.8); ALBUMIN 3.4 g/dL (3.0-4.8); CALCIUM 7.8 mg/dL (8.4-10.5); MAGNESIUM 1.6 mg/dL (1.7-2.2)
--- NOTE | 2017-05-09 19:59 | CON ---
DATE: 05/09/2017 LOCATION: The patient is in room 322, bed 2. CHIEF COMPLAINT: Weakness times several days. HISTORY OF PRESENT ILLNESS: This is an 82-year-old female seen earlier this morning in room 322 with end-stage renal disease on hemodialysis, coronary artery disease, congestive heart failure, COPD, diabetes, hypertension, and who was admitted to the acute care with diagnoses of severe sepsis with acute cholecystitis, acute sigmoid diverticulitis, acute non-ST elevation myocardial infarction. The patient was scheduled treatment; however, currently on meropenem. Transferred from acute care to transitional care. REVIEW OF SYSTEMS: There is no fevers. No chills. No nausea. No vomiting. PAST MEDICAL HISTORY: Significant for end-stage renal disease on hemodialysis, coronary artery disease, congestive heart failure, chronic obstructive lung disease, diabetes mellitus, hypertension. PAST SURGICAL HISTORY: Significant for appendectomy and coronary cath with PCI. ALLERGIES: THE PATIENT IS ALLERGIC TO CEFTRIAXONE. MEDICATIONS: Reviewed. PHYSICAL EXAMINATION: VITAL SIGNS: Temperature is 98, blood pressure is 120/70, respiratory rate of 16. HEENT: Unremarkable. NECK: Supple. LUNGS: Decreased breath sounds. HEART: Normal S1 and S2. ABDOMEN: Soft. LABORATORY DATA: Reveal the patient's chemistries are reviewed. The patient's white count is 5.1 20 seconds. Microbiology reveals a blood cultures have been negative. Urine cultures was negative. ASSESSMENT AND PLAN: This is an 82-year-old female with end-stage hemodialysis, coronary artery disease, congestive heart failure, chronic obstructive pulmonary disease, diabetes, hypertension, admitted with severe sepsis with acute cholecystitis, acute sigmoid diverticulitis, acute non-ST elevation myocardial infarction. Currently on meropenem. We will follow closely with you. The patient's last creatinine was 7.5. The meropenem has been adjusted for renal failure. We will follow with you. Jeromy Castellanos MD
--- NOTE | 2017-05-10 01:39 | CON ---
DATE: 05/09/2017 REASON FOR CONSULTATION: Fatigue, cachexia, ESRD. HISTORY OF PRESENTING ILLNESS: An 82-year-old lady known to me from multiple prior evaluations, recent evaluation on the medical side. Patient was admitted to the medical side with abdominal pain, nausea, diarrhea. She was found to have acute cholecystitis, acute diverticulitis. She was treated with IV antibiotics. She is currently in the Transitional Care Unit to regain her strength, for conditioning exercises, for rehabilitation. She complains of being very weak. She complains of being tired. She complains of dyspnea on exertion. PAST MEDICAL AND SURGICAL HISTORY: NIDDM, hypertension, ESRD, CAD, paroxysmal AFib, anemia of chronic kidney disease, recent acute cholecystitis, acute diverticulitis, depression. FAMILY HISTORY: Noncontributory. SOCIAL HISTORY: No smoking, no alcohol use, no IV drug abuse. ALLERGIES: CEFTRIAXONE. CURRENT MEDICATIONS: Imdur 30, Lopressor 25 b.i.d., meropenem 500 q. 24 hours, MiraLax on hold, Synthroid 50 mcg, Tylenol. REVIEW OF SYSTEMS: All systems are reviewed, pertinent positives as mentioned in history of presenting illness, rest unremarkable. PHYSICAL EXAMINATION: GENERAL: Elderly lady, sitting in bed. VITAL SIGNS: Blood pressure 147/56, heart rate 76, respiratory rate 18, temperature 98. HEENT: Normocephalic, atraumatic. NECK: Supple, no JVD. LUNGS: Bilateral equal air entry, bilateral equal expansion, no rales. CARDIAC: S1, S2. Regular rate and rhythm. Positive murmur. No rub. ABDOMEN: Soft, nondistended, nontender, bowel sounds present. EXTREMITIES: No lower extremity edema. LABORATORY DATA: No new labs. ASSESSMENT: 1. End-stage renal disease, on dialysis Sunday, Sunday and Sunday, for dialysis today. 2. Acute cholecystitis/acute diverticulitis. 3. Anemia of chronic kidney disease. 4. Coronary artery disease, paroxysmal atrial fibrillation. 5. Non-insulin dependent diabetes mellitus. 6. Chronic fatigue. 7. Depression. PLAN: 1. Continue/complete antibiotics as per ID recommendations. 2. Dialysis today. 3. Consider low-dose antidepressant. 4. Physical therapy. Barbi Linares MD [facility] # [id number]
[2017-05-10] MEDS: Levothyroxine 50 MCG TAB PO SCH (05:46)
[2017-05-10] MEDS: Insulin Reg-LOW-Coverage SC SCH ×4 (06:59→21:35)
[2017-05-10] MEDS: Potassium Chloride 20 mEq ER Tab PO SCH (08:50)
[2017-05-10] MEDS: Meropenem 500 MG in Sodium Chloride 0.9% 100 ML IVPB SCH (17:53)
--- NOTE | 2017-05-10 19:14 | PN ---
DATE: 05/10/2017 SUBJECTIVE: The patient is seen sitting in chair. She is awake, she is alert. She is reporting feeling better. She walked with the therapist. PHYSICAL EXAMINATION: GENERAL: Elderly lady sitting in chair. VITAL SIGNS: Blood pressure 141/58, heart rate 79, respiratory rate 18, temperature 98.2. HEENT: Normocephalic, atraumatic. NECK: Supple, no JVD. LUNGS: Bilateral equal entry, no rales. CARDIAC: S1 and S2, regular rate and rhythm, no murmur, no rub. ABDOMEN: Soft, nondistended, nontender, bowel sounds present. EXTREMITIES: No lower extremity edema. LABORATORY DATA: No new labs. CURRENT MEDICATIONS: Insulin, Imdur, K-Dur, Lopressor, meropenem, MiraLax, Synthroid, Tylenol. ASSESSMENT AND PLAN: 1. Hyperkalemia. We will discontinue potassium supplementation. 2. Acute diverticulitis, continue antibiotics as per ID recommendations. 3. End-stage renal disease for dialysis tomorrow. 4. Continue physical therapy. Barbi Linares MD
--- NOTE | 2017-05-10 22:45 | PN ---
DATE: SUBJECTIVE: The patient is an 82-year-old female on Transitional Care Unit, receiving antibiotic therapy for acute cholecystitis and diverticulitis. PHYSICAL EXAMINATION: VITAL SIGNS: Temp 98.3, pulse is 63, blood pressure is 120/63, respiratory rate is 18, and oxygen sat is 98%. NECK: Supple. No JVD. LUNGS: Clear. HEART: S1 and S2 rhythm. ABDOMEN: Soft. Positive bowel sounds. EXTREMITIES: Show no evidence of edema. ASSESSMENT AND PLAN: Currently, the patient is completing a course of meropenem for the above mentioned infections. She is on dialysis four times a week, receiving occupational and physical therapy. We will continue to monitor the patient closely. She is being followed by Infectious Disease, Gastrointestinal, and Renal. Shavonne Ascencio MD
--- NOTE | 2017-05-10 23:52 | PN ---
DATE: 05/10/2017 SUBJECTIVE: The patient is in bed, in no acute distress, nontoxic. PHYSICAL EXAMINATION: VITAL SIGNS: Temperature is 98, blood pressure is 140/50, respiratory rate of 16. HEENT: Examination of HEENT is unremarkable. NECK: Supple. LUNGS: Decreased breath sounds. HEART: Normal S1, S2. ABDOMEN: Soft, nontender. LABORATORY EXAMINATION: White count of 5.7, hemoglobin of 8.9, and creatinine of 7.1. Review of orders reveal the patient to be on meropenem. ASSESSMENT AND PLAN: This is an 82-year-old with end-stage renal disease, on hemodialysis; coronary artery disease; congestive heart failure; chronic obstructive pulmonary disease; diabetes; hypertension, admitted to the acute care with diagnosis of severe sepsis with acute cholecystitis, sigmoid diverticulitis, acute nonspecific ST-elevation myocardial infarction, today is day #10 of antibiotics, currently on meropenem, may be we will switch to antibiotics in the next 24 to 48 hours. We will follow with you. Case discussed with Dr. Ascencio. Jeromy Castellanos MD
[2017-05-11] MEDS: Levothyroxine 50 MCG TAB PO SCH (05:28)
[2017-05-11] MEDS: Insulin Reg-LOW-Coverage SC SCH ×4 (06:35→22:22)
--- NOTE | 2017-05-11 10:56 | CP.PCM.PN ---
Subjective - Date & Time of Evaluation Date of Evaluation: 05/11/17 Time of Evaluation: 10:00 - Subjective Subjective: S&E at bedside, chart reviewed, having multiple soft BM, count 9 times, no blood , abdominal pain continue to improve. No SOB or chest pain. Objective - Vital Signs/Intake and Output Vital Signs (last 24 hours): Temp Pulse Resp BP Pulse Ox 97.9 F 75 16 148/84 98 05/11/17 06:00 05/11/17 08:40 05/11/17 06:00 05/11/17 08:40 05/11/17 06:00 - Medications Medications: Current Medications Acetaminophen (Tylenol 325mg Tab) 650 mg PO Q6H PRN; Protocol PRN Reason: Pain, moderate (4-7) Meropenem 500 mg/ Sodium (Chloride) 100 mls @ 100 mls/hr IVPB 1800 [facility] PRN Reason: Protocol Last Admin: 05/10/17 17:53 Dose: 100 mls/hr Insulin Human Regular (Humulin R Low) 0 units SC ACHS [facility] PRN Reason: Protocol Last Admin: 05/11/17 06:35 Dose: Not Given Isosorbide Mononitrate (Imdur Er) 30 mg PO 0600 [facility] PRN Reason: Protocol Last Admin: 05/11/17 05:28 Dose: 30 mg Levothyroxine Sodium (Synthroid) 50 mcg PO 0600 [facility] PRN Reason: Protocol Last Admin: 05/11/17 05:28 Dose: 50 mcg Metoprolol Tartrate (Lopressor) 25 mg PO 0800,1800 [facility] PRN Reason: Protocol Last Admin: 05/11/17 08:40 Dose: 25 mg Polyethylene Glycol (Miralax) 17 gm PO BID [facility] PRN Reason: Protocol - Labs Labs: 05/09/17 15:00 05/09/17 15:00 - Constitutional Appears: No Acute Distress - Head Exam Head Exam: NORMOCEPHALIC - Eye Exam Eye Exam: Normal appearance. absent: Scleral icterus - ENT Exam ENT Exam: Mucous Membranes Moist - Respiratory Exam Respiratory Exam: NORMAL BREATHING PATTERN. absent: Respiratory Distress - Cardiovascular Exam Cardiovascular Exam: +S1, +S2 - GI/Abdominal Exam GI & Abdominal Exam: Soft, Normal Bowel Sounds. absent: Guarding, Tenderness, Organomegaly, Rebound - Extremities Exam Extremities Exam: absent: Calf Tenderness, Pedal Edema - Neurological Exam Neurological Exam: Alert, Awake, Oriented x3 Assessment and Plan - Assessment and Plan (Free Text) Assessment: Assessment: Improving cholecystitis Acute diverticulitis? NSTEMI End-stage renal disease on dialysis Chronic anemia Diabetes mellitus Chronic constipation Plan: On IV antibiotics as per ID, on Meropenum on aspirin PPI on low residual soft diet check stool cdiff Miralax on hold Seen and discussed with Dr. Theodore.
--- NOTE | 2017-05-11 12:46 | PN ---
DATE: SUBJECTIVE: This is an 82-year-old female receiving physical and occupational therapy on Transitional Care Unit. She is currently on IV antibiotics for acute cholecystitis and acute diverticulitis, being followed by Infectious Disease, Renal and GI. PHYSICAL EXAMINATION: VITAL SIGNS: She has temp of 97.9, blood pressure is 148/84, pulse is 75, respiratory rate is 16, and oxygen sat is 98% on room air. NECK: Supple. LUNGS: Clear. HEART: S1 and S2 rhythm. ABDOMEN: Soft. Scaphoid. Positive bowel sounds. EXTREMITIES: No evidence of edema. LABORATORY DATA: Her blood sugar this morning is reported at 99. ASSESSMENT AND PLAN: She will continue her IV antibiotics as per Infectious Disease. She is continuing her dialysis 4 times a day for her chronic renal disease. She is receiving occupational and physical therapy for her deconditioned state. She has recently had a non-ST myocardial infarction in the setting of these acute infections. She is having Synthroid replacement for hypothyroid disease, and she is on a insulin schedule for her non insulin dependent diabetes. Her medications have been reviewed with the staff and continue current level of supportive care. Shavonne Ascencio MD
[2017-05-11 14:53] LABS: EOS % 0.5 % (1.5-5.0); GRAN # 2.64 (1.4-6.5); GRAN % 44.1 % (50.0-68.0); HEMOGLOBIN 9.1 g/dL (12.0-16.0); LYMPH # 2.8 (1.2-3.4); MEAN CELL VOLUME 95.7 fl (80.0-105.0); MEAN CORPUSCULAR HEMOGLOBIN 29.9 pg (25.0-35.0); MEAN CORPUSCULAR HGB CONC 31.3 g/dl (31.0-37.0); MEAN PLATELET VOLUME 9.5 fl (7.0-11.0); MONO # 0.5 (0.1-0.6); MONO % 8.4 % (1.0-6.0); RBC 3.04 10^6/uL (3.5-6.1); RED CELL DISTRIBUTION WIDTH 16.8 % (11.5-14.5)
[2017-05-11 15:24] LABS: ALB/GLOB RATIO 0.8 (1.1-1.8); ALBUMIN 3.5 g/dL (3.0-4.8); MAGNESIUM 1.8 mg/dL (1.7-2.2)
--- NOTE | 2017-05-11 19:17 | CP.PCM.PN ---
Subjective - Date & Time of Evaluation Date of Evaluation: 05/11/17 Time of Evaluation: 11:25 - Subjective Subjective: Comfortable in bed, no fevers, still feels weak especially after dialysis. No abdominal pain. Objective - Vital Signs/Intake and Output Vital Signs (last 24 hours): Temp Pulse Resp BP Pulse Ox 97.9 F 75 16 148/84 98 05/11/17 06:00 05/11/17 08:40 05/11/17 06:00 05/11/17 08:40 05/11/17 06:00 - Medications Medications: Current Medications Acetaminophen (Tylenol 325mg Tab) 650 mg PO Q6H PRN; Protocol PRN Reason: Pain, moderate (4-7) Meropenem 500 mg/ Sodium (Chloride) 100 mls @ 100 mls/hr IVPB 1800 RUTHANN PRN Reason: Protocol Last Admin: 05/10/17 17:53 Dose: 100 mls/hr Insulin Human Regular (Humulin R Low) 0 units SC ACHS RUTHANN PRN Reason: Protocol Last Admin: 05/11/17 06:35 Dose: Not Given Isosorbide Mononitrate (Imdur Er) 30 mg PO 0600 RUTHANN PRN Reason: Protocol Last Admin: 05/11/17 05:28 Dose: 30 mg Levothyroxine Sodium (Synthroid) 50 mcg PO 0600 RUTHANN PRN Reason: Protocol Last Admin: 05/11/17 05:28 Dose: 50 mcg Metoprolol Tartrate (Lopressor) 25 mg PO 0800,1800 RUTHANN PRN Reason: Protocol Last Admin: 05/11/17 08:40 Dose: 25 mg Polyethylene Glycol (Miralax) 17 gm PO BID RUTHANN PRN Reason: Protocol - Labs Labs: 05/09/17 15:00 05/09/17 15:00 - Constitutional Appears: Chronically Ill - Head Exam Head Exam: NORMAL INSPECTION - ENT Exam ENT Exam: Mucous Membranes Moist - Neck Exam Neck Exam: absent: Meningismus - Respiratory Exam Respiratory Exam: Decreased Breath Sounds - Cardiovascular Exam Cardiovascular Exam: +S1, +S2 - GI/Abdominal Exam GI & Abdominal Exam: Soft. absent: Tenderness Assessment and Plan - Assessment and Plan (Free Text) Plan: Assessment severe sepsis with acute sigmoid diverticulitis and acute cholecystitis history of acute NSTEMI history of sepsis due to acute descending colon diverticulitis and bilateral lobe healthcare-associated pneumonia history of healthcare-associated pneumonia (right upper lobe, bilateral lower lobes) HTN DM CAD with chronic CHF ESRD on HD Plan continue Merrem day 11 to complete 10-14 days of therapy discussed with Dr. Ascencio
[2017-05-11] MEDS: Meropenem 500 MG in Sodium Chloride 0.9% 100 ML IVPB SCH (19:44)
--- NOTE | 2017-05-11 20:36 | PN ---
DATE: 05/11/2017 SUBJECTIVE: The patient is seen sitting in chair. She is awake. She is alert. She is comfortable. She denies any pain. She denies any shortness of breath. She complains of being very weak. PHYSICAL EXAMINATION: GENERAL: Elderly lady sitting in chair. VITAL SIGNS: Blood pressure 120/59, heart rate 95, respiratory rate 18, and temperature 97.9. HEENT: Normocephalic and atraumatic. NECK: Supple. No JVD. LUNGS: Bilateral equal air entry. No rales. CARDIAC: S1 and S2. Regular rate and rhythm. No murmur. No rub. ABDOMEN: Soft, nondistended, and nontender. Bowel sounds present. EXTREMITIES: No lower extremity edema. LABORATORY DATA: WBC 6, hemoglobin 9, hematocrit 29, and platelets 122. Sodium 134, potassium 5.6, chloride 95, CO2 of 23, BUN 63, creatinine 7.5, and glucose 123. MEDICATIONS LIST: Reviewed. ASSESSMENT: 1. Acute diverticulitis, resolving. 2. [id number] diabetes mellitus. 3. Hypertension. 4. End-stage renal disease. 5. Coronary artery disease, paroxysmal atrial fibrillation, and congestive heart failure. PLAN: 1. Dialysis today. 2. Continue physical therapy. 3. Monitor fingersticks. 4. Continue current management. Barbi Linares MD
[2017-05-12] MEDS: Levothyroxine 50 MCG TAB PO SCH (05:33)
[2017-05-12] MEDS: Insulin Reg-LOW-Coverage SC SCH ×5 (06:58→21:33)
[2017-05-12] MEDS: Meropenem 500 MG in Sodium Chloride 0.9% 100 ML IVPB SCH (18:24)
--- NOTE | 2017-05-12 19:03 | PN ---
DATE: SUBJECTIVE: An 82-year-old female on Transitional Care Unit, receiving IV antibiotic therapy for acute cholecystitis, acute diverticulitis. PHYSICAL EXAMINATION: GENERAL: She is alert. VITAL SIGNS: She has a temp of 97.9, blood pressure 116/46, heart rate is 70, respiratory rate is 18, oxygen sat is 98% on room air. NECK: Supple. LUNGS: Clear. HEART: S1 and S2 rhythm. ABDOMEN: Soft, scaphoid. Positive bowel sounds. EXTREMITIES: No evidence of edema. The patient is scheduled for dialysis later today. Her random blood sugar is 115. She has a recent non ST myocardial infarction in the setting of this severe sepsis. She is currently completing a course of meropenem and is being followed by Infectious Disease, Renal, and Gastroenterology. Continue current level of care. She appears to have history of hypothyroid disease, insulin dependent diabetes, atherosclerotic heart disease, hyperlipoidemia. Shavonne Ascencio MD
--- NOTE | 2017-05-13 00:55 | PN ---
DATE: 05/12/2017 SUBJECTIVE: This patient was seen and evaluated earlier in the TCU. Her abdominal pain has significantly improved. The patient is still on antibiotics. PHYSICAL EXAMINATION: VITAL SIGNS: Temperature is 97.6, blood pressure 124/53, pulse 100, respirations 18, O2 saturation 100%.. HEENT: Atraumatic. Anicteric. NECK: Supple. HEART: S1 and S2 heard. LUNGS: Bilateral air entry present. ABDOMEN: Soft. There is minimal tenderness on the right upper quadrant with deep palpation. EXTREMITIES: No edema. NEUROLOGICAL: Alert and oriented. Moves all the extremities. LABORATORY DATA: There is no recent labs today. IMPRESSION: An 82-year-old patient with multiple comorbidities presented with; 1. Abdominal pain, with gallstones, clinical suspicion of acute cholecystitis. The patient also has chronic left lower quadrant abdominal pain with diverticulosis, history of diverticulitis. 2. Non-ST segment myocardial infarction. 3. The patient already has a bilateral lung infiltrate, possible pneumonia. 4. Other comorbidities include hypertension, diabetes mellitus, coronary artery disease, history of congestive heart failure, and end-stage renal disease, on hemodialysis. RECOMMENDATIONS: 1. Continue antibiotics as per ID. 2. Followup of the LFTs. The patient is high risk for any cholecystectomy. The patient was evaluated by Surgery in the past. We will continue to closely follow up on her care and suggest further management based on the clinical course. Ysabel Theodore MD
--- NOTE | 2017-05-13 01:01 | PN ---
DATE: 05/12/2017 SUBJECTIVE: The patient is in bed, in no acute distress, nontoxic. PHYSICAL EXAMINATION: VITAL SIGNS: Temperature is 97, blood pressure is 116/40, respiratory rate of 18, and heart rate of 100. HEENT: Unremarkable. NECK: Supple. LUNGS: Decreased breath sounds. HEART: Normal S1, S2. ABDOMEN: Soft. LABORATORY EXAMINATION: Reveals a white count of 6, hemoglobin of 9, and platelets of 122. BUN of 63, creatinine of 7.1. ASSESSMENT AND PLAN: This is an 82-year-old female seen earlier today in room 322 with severe sepsis, acute sigmoid diverticulitis, acute cholecystitis, history of hypertension, also admitted with acute nonspecific ST-elevation myocardial infarction, today is day #11 of meropenem. We will discontinue the meropenem within the next 24 to 48 hours. We will discontinue the meropenem tonight, the patient day #12. Jeromy Castellanos MD
[2017-05-13] MEDS: Levothyroxine 50 MCG TAB PO SCH (05:12)
[2017-05-13] MEDS: Insulin Reg-LOW-Coverage SC SCH ×4 (06:54→22:09)
--- NOTE | 2017-05-13 10:50 | PN ---
DATE: 05/12/2017 SUBJECTIVE: The patient is seen, sitting in chair. She is awake and alert. She is comfortable. OBJECTIVE: GENERAL: An elderly lady sitting in chair. VITAL SIGNS: Blood pressure 124/53, heart rate 100, respiratory rate 18, and temperature 97.9. LUNGS: Bilateral equal air entry. EXTREMITIES: No lower extremity edema. LABORATORY DATA: No new labs. MEDICATIONS: Medications list reviewed. ASSESSMENT AND PLAN: 1. Acute diverticulitis, resolved. 2. . 3. Hypertension. 4. End-stage renal disease. 5. Anemia of chronic kidney disease. PLAN: 1. Continue antibiotics. 2. Physical therapy. 3. Monitor fingersticks. Barbi Linares MD
--- NOTE | 2017-05-13 15:25 | PN ---
DATE: SUBJECTIVE: An 82-year-old female, resting comfortably in bed this morning Transitional Care Unit. Nurses relate no particular problems. PHYSICAL EXAMINATION: VITAL SIGNS: Show a temp of 97, pulse is 96, blood pressure is 124/64. LUNGS: Clear. HEART: S1 and S2 rhythm. ABDOMEN: Soft. EXTREMITIES: No evidence of edema. LABORATORY DATA: Her blood sugar this morning was 100. ASSESSMENT AND PLAN: The patient has completed a course of antibiotics for acute diverticulitis and acute cholecystitis. She has had a non-ST myocardial infarction with conservative management as per Cardiology. She has chronic renal disease, on dialysis 4 times a week. She has hypothyroid disease, atherosclerotic heart disease, carotid disease, hyperlipidemia, insulin-dependent diabetes. She is being followed by Nephrology for chronic kidney disease, GI for acute cholecystitis diverticulitis, Infectious Disease for the same. She is receiving occupational and physical therapy on the Transitional Care Unit. Continue current level of supportive care. Current active medications are Synthroid 50 mcg daily, MiraLax 17 g b.i.d., Lopressor 25 mg twice a day, Imdur 300 mg daily and she is on a sliding insulin scale. Shavonne Ascencio MD
--- NOTE | 2017-05-13 17:49 | PN ---
DATE: 05/13/2017 SUBJECTIVE: Patient is in bed, in no acute distress, nontoxic. PHYSICAL EXAMINATION: VITAL SIGNS: Temperature is 97, blood pressure is 109/50, respiratory rate of 18, heart rate of 100. HEENT: Unremarkable. NECK: Supple. LUNGS: Have decreased breath sounds. HEART: Normal S1, S2. ABDOMEN: Soft. LABORATORY EXAMINATION: Reveals a white count of 6000, hemoglobin of 9. Chemistries are noted and microbiology is reviewed and review of orders reveals the patient to be now off of antibiotics. ASSESSMENT AND PLAN: An 82-year-old female who was admitted to the acute care with severe sepsis with sigmoid diverticulitis, acute cholecystitis, and an acute non-ST elevation myocardial infarction and was treated with 11 days of meropenem, currently now off of antibiotics. Patient is not a candidate for gallbladder surgery due to her recent non-ST elevation myocardial infarction. We will follow closely with you. Currently off of antibiotics, at risk for developing nosocomial infections. Jeromy Castellanos MD
[2017-05-14] MEDS: Levothyroxine 50 MCG TAB PO SCH (05:42)
[2017-05-14] MEDS: Insulin Reg-LOW-Coverage SC SCH ×4 (07:49→22:41)
[2017-05-14] MEDS: Pantoprazole 20 mg EC Tab PO SCH (10:43)
--- NOTE | 2017-05-14 14:05 | PN ---
DATE: SUBJECTIVE: An 82-year-old female on the Transitional Care Unit receiving occupational and physical therapy. She has recently completed a course of antibiotics for acute diverticulitis and acute cholecystitis and she had a non-ST WI during the hospitalization. PHYSICAL EXAMINATION: VITAL SIGNS: Show temperature of 97, her pulse is 81, her blood pressure is 151/53, respiratory rate is 19, oxygen saturation is 100% on room air. NECK: Supple. LUNGS: Clear. HEART: S1, S2 rhythm. ABDOMEN: Soft with positive bowel sounds. EXTREMITIES: No evidence of edema. LABORATORY DATA: Her blood sugar this morning was 85. ASSESSMENT AND PLAN: Patient is receiving dialysis, being followed by Nephrology. She also is on Synthroid replacement for hypothyroid disease and sliding insulin scale for her diabetes. She will continue her occupational and physical therapy. She has completed a course of antibiotics and we will continue to follow the patient closely. She is scheduled for dialysis, during which time lab work will be done. Shavonne Ascencio MD
[2017-05-14 15:24] LABS: BASO # 0.01 K/mm3 (0.0-2.0); BASO % 0.1 % (0.0-3.0); EOS % 0.4 % (1.5-5.0); GRAN # 4.82 (1.4-6.5); GRAN % 59.7 % (50.0-68.0); HEMOGLOBIN 8.9 g/dL (12.0-16.0); LYMPH # 2.7 (1.2-3.4); LYMPH % 33.9 % (22.0-35.0); MEAN CORPUSCULAR HEMOGLOBIN 29.6 pg (25.0-35.0); MEAN CORPUSCULAR HGB CONC 31.4 g/dl (31.0-37.0); MONO # 0.5 (0.1-0.6); MONO % 5.9 % (1.0-6.0); RBC 3.01 10^6/uL (3.5-6.1); WHITE BLOOD COUNT 8.1 10^3/ul (4.5-11.0)
[2017-05-14 15:46] LABS: ALB/GLOB RATIO 0.9 (1.1-1.8); ALBUMIN 3.5 g/dL (3.0-4.8); CALCIUM 7.3 mg/dL (8.4-10.5); MAGNESIUM 1.7 mg/dL (1.7-2.2)
--- NOTE | 2017-05-14 18:49 | PN ---
DATE: 05/14/2017 SUBJECTIVE: The patient is seen lying in bed. She is sleeping comfortably. She does not appear to be in any kind of distress. PHYSICAL EXAMINATION: VITAL SIGNS: Blood pressure 150/50, heart rate 102, respiratory rate 16, temperature 97.4. HEENT: Normocephalic, atraumatic. NECK: Supple, no JVD. LUNGS: Bilateral equal air entry, no rales. CARDIAC: S1, S2, regular rate and rhythm, no murmur, no rub. ABDOMEN: Soft, nondistended, nontender, bowel sounds present. EXTREMITIES: No lower extremity edema. INTAKE AND OUTPUT: Not charted. LABORATORY DATA: WBC 6, hemoglobin 9, hematocrit 29, platelets 122. No new labs. CURRENT MEDICATIONS: List reviewed. ASSESSMENT: 1. Acute diverticulitis. 2. Aad-gfggtsg-rkbotqfnn diabetes mellitus. 3. Hypertension. 4. Endstage renal disease. 5. Coronary artery disease/paroxysmal atrial fibrillation. PLAN: 1. Dialysis today. 2. Continue physical therapy. 3. Complete antibiotics. 4. Discharge planning. Barbi Linares MD
--- NOTE | 2017-05-14 18:52 | CP.PCM.PN ---
Subjective - Date & Time of Evaluation Date of Evaluation: 05/14/17 Time of Evaluation: 11:25 - Subjective Subjective: Comfortable in bed, no abdominal pain currently, no fevers. Objective - Vital Signs/Intake and Output Vital Signs (last 24 hours): Temp Pulse Resp BP Pulse Ox 97.7 F 78 19 151/53 H 100 05/13/17 16:00 05/13/17 17:18 05/13/17 16:00 05/13/17 17:18 05/13/17 16:00 - Medications Medications: Current Medications Acetaminophen (Tylenol 325mg Tab) 650 mg PO Q6H PRN; Protocol PRN Reason: Pain, moderate (4-7) Insulin Human Regular (Humulin R Low) 0 units SC ACHS RUTHANN PRN Reason: Protocol Last Admin: 05/14/17 07:49 Dose: Not Given Isosorbide Mononitrate (Imdur Er) 30 mg PO 0600 URTHANN PRN Reason: Protocol Last Admin: 05/14/17 05:42 Dose: 30 mg Levothyroxine Sodium (Synthroid) 50 mcg PO 0600 RUTHANN PRN Reason: Protocol Last Admin: 05/14/17 05:42 Dose: 50 mcg Metoprolol Tartrate (Lopressor) 25 mg PO 0800,1800 RUTHANN PRN Reason: Protocol Last Admin: 05/14/17 08:41 Dose: Not Given Polyethylene Glycol (Miralax) 17 gm PO BID RUTHANN PRN Reason: Protocol - Labs Labs: 05/11/17 14:25 05/11/17 14:25 - Constitutional Appears: Non-toxic, Chronically Ill - Head Exam Head Exam: NORMAL INSPECTION - Neck Exam Neck Exam: absent: Meningismus - Respiratory Exam Respiratory Exam: Decreased Breath Sounds - Cardiovascular Exam Cardiovascular Exam: +S1, +S2 - GI/Abdominal Exam GI & Abdominal Exam: Soft. absent: Tenderness Assessment and Plan - Assessment and Plan (Free Text) Plan: Assessment S/P severe sepsis with acute sigmoid diverticulitis and acute cholecystitis history of acute NSTEMI history of sepsis due to acute descending colon diverticulitis and bilateral lobe healthcare-associated pneumonia history of healthcare-associated pneumonia (right upper lobe, bilateral lower lobes) HTN DM CAD with chronic CHF ESRD on HD Plan continue to monitor off antibiotics since she is at risk for nosocomial infections
[2017-05-15] MEDS: Levothyroxine 50 MCG TAB PO SCH (05:56)
[2017-05-15] MEDS: Insulin Reg-LOW-Coverage SC SCH ×4 (06:35→22:01)
[2017-05-15] MEDS: Pantoprazole 20 mg EC Tab PO SCH (10:24)
--- NOTE | 2017-05-15 11:23 | PN ---
DATE: SUBJECTIVE: An 82-year-old female, resting comfortably this morning. She is on the Transitional Care Unit, receiving occupational and physical therapy. PHYSICAL EXAMINATION: VITAL SIGNS: Temp is 97.4, pulse is 72, blood pressure is 154/54, oxygen saturation is 100% on room air. LUNGS: Clear. HEART: S1, S2 rhythm. ABDOMEN: Soft, scaphoid. Positive bowel sounds. EXTREMITIES: No evidence of edema. LABORATORY DATA: Fasting blood sugar was 103. ASSESSMENT AND PLAN: The patient is on dialysis 4 times a week for chronic kidney disease. She has completed a course of antibiotics for acute cholecystitis and diverticulitis. She has been receiving occupational and physical therapy on the unit. She is on Imdur at 30 mg daily, Lopressor 25 mg b.i.d., MiraLax 17 g b.i.d., Neurontin 100 mg at bedtime, PhosLo 667 mg t.i.d., Protonix 20 mg daily, Synthroid 50 mcg daily, Tylenol 2 tabs q. 6 hours. She is on a sliding insulin schedule for her diabetes. She is scheduled for dialysis today. We will continue current level of care. The guidance consultant's notes of Infectious Disease and Renal have been noted. Shavonne Ascencio MD
--- NOTE | 2017-05-15 12:12 | CP.PCM.PN ---
Subjective - Date & Time of Evaluation Date of Evaluation: 05/15/17 Time of Evaluation: 10:30 - Subjective Subjective: S&E at bedside, no new complaints, having formed, BM, no reports of diarrhea or bleeding. Abdominal pain RUQ has resolved. Tolerating oral intake. Endorses she is feeling better. Objective - Vital Signs/Intake and Output Vital Signs (last 24 hours): Temp Pulse Resp BP Pulse Ox 98.1 F 101 H 16 132/60 100 05/15/17 11:20 05/15/17 11:20 05/15/17 11:20 05/15/17 11:20 05/15/17 11:20 - Medications Medications: Current Medications Acetaminophen (Tylenol 325mg Tab) 650 mg PO Q6H PRN; Protocol PRN Reason: Pain, moderate (4-7) Calcium Acetate (Phoslo) 667 mg PO TID [facility] Last Admin: 05/15/17 10:23 Dose: 667 mg Gabapentin (Neurontin) 100 mg PO HS RUTHANN PRN Reason: Protocol Last Admin: 05/14/17 22:42 Dose: 100 mg Insulin Human Regular (Humulin R Low) 0 units SC ACHS RUTHANN PRN Reason: Protocol Last Admin: 05/15/17 06:35 Dose: Not Given Isosorbide Mononitrate (Imdur Er) 30 mg PO 0600 RUTHANN PRN Reason: Protocol Last Admin: 05/15/17 05:56 Dose: 30 mg Levothyroxine Sodium (Synthroid) 50 mcg PO 0600 RUTHANN PRN Reason: Protocol Last Admin: 05/15/17 05:56 Dose: 50 mcg Metoprolol Tartrate (Lopressor) 25 mg PO 0800,1800 RUTHANN PRN Reason: Protocol Last Admin: 05/15/17 08:50 Dose: Not Given Pantoprazole Sodium (Protonix Ec Tab) 20 mg PO DAILY [facility] Last Admin: 05/15/17 10:24 Dose: 20 mg Polyethylene Glycol (Miralax) 17 gm PO BID RUTHANN PRN Reason: Protocol - Labs Labs: 05/14/17 14:45 05/14/17 14:45 - Constitutional Appears: No Acute Distress - Eye Exam Eye Exam: Normal appearance. absent: Scleral icterus - ENT Exam ENT Exam: Mucous Membranes Moist - Neck Exam Neck Exam: Normal Inspection - Respiratory Exam Respiratory Exam: Decreased Breath Sounds, NORMAL BREATHING PATTERN. absent: Respiratory Distress - Cardiovascular Exam Cardiovascular Exam: +S1, +S2 - GI/Abdominal Exam GI & Abdominal Exam: Soft, Normal Bowel Sounds. absent: Guarding, Tenderness, Organomegaly, Rebound - Extremities Exam Extremities Exam: absent: Calf Tenderness, Pedal Edema - Neurological Exam Neurological Exam: Alert, Awake, Oriented x3 - Skin Skin Exam: Dry, Warm Assessment and Plan - Assessment and Plan (Free Text) Assessment: Assessment: Resolved Abdominal Pain s/p cholecystitis NSTEMI End-stage renal disease on dialysis Chronic anemia Diabetes mellitus Chronic constipation Plan: completed antibiotics on aspirin PPI on low residual soft diet Miralax on hold stool cdiff obtained, results pending Seen and discussed with Dr. Theodore.
--- NOTE | 2017-05-15 15:54 | PN ---
DATE: SUBJECTIVE: The patient is currently seen lying supine in bed. She appears to be in no acute distress. She no longer has any abdominal pain. She has completed a course of antibiotics for acute diverticulitis. She had an uneventful dialysis yesterday and will likely be discharged home post dialysis tomorrow. MEDICATIONS: Medication list reviewed. The patient is on sliding scale insulin, Imdur, Lopressor, Neurontin, PhosLo, Protonix, Synthroid and Tylenol p.r.n. OBJECTIVE: VITAL SIGNS: Blood pressure 132/60, temperature 98.1, respiratory rate is 16 with a pulse of 101. HEENT: Shows her to be normocephalic, atraumatic. Conjunctivae are pale. Sclerae are nonicteric. NECK: Supple. No neck vein distention. CHEST: Clear to auscultation and percussion. No rales. No rhonchi or wheezing. CARDIOVASCULAR: Shows an irregular S1 and S2. MR/TR. No S3. No S4. No rub. ABDOMEN: Soft. Bowel sounds normal. No rebound. No guarding or masses. EXTREMITIES: Show left upper extremity AV fistula. Positive thrill. Positive bruit. No lower extremity cyanosis, clubbing or edema. LABORATORY DATA AND IMAGING: CBC: White blood cell count 8.1 predialysis yesterday, hemoglobin stable at 8.9, platelet count is 150,000. Chemistries show sodium of 131, potassium was 5.8 yesterday. BUN 98 with a creatinine of 10.0. CO2 level was 17. Calcium was 7.3 with an albumin level of 3.5. Phosphorus level was elevated at 8.8, up from 7.3. The patient is now back on binder therapy. Albumin level was 3.5. ASSESSMENT: 1. Acute diverticulitis, status post completion of a course of antibiotic therapy. 2. End-stage renal disease. The patient will continue her routine dialysis schedule. The next dialysis is scheduled for tomorrow. 3. History of insulin-dependent diabetes mellitus. The patient will continue sliding scale insulin. 4. History of hypertension. Blood pressure controlled on present medical therapy. 5. History of coronary artery disease, atrial fibrillation. This appears to be stable. 6. Hypothyroidism. The patient will continue thyroid replacement therapy. 7. History of secondary hyperparathyroidism. The patient will continue renal diet along with binder therapy. I expect to see a fall in her phosphorus level with continued monitoring of her labs on dialysis. PLAN: 1. Hemodialysis scheduled for tomorrow with likely discharge post dialysis tomorrow. 2. Continue rehabilitation in the TCU for one more day prior to discharge. 3. Stressed to the patient the importance of a renal diet together with binder therapy. 4. Emphasized to the patient the need to be on a low potassium diet as her K was 5.8. Buck Yanes MD
[2017-05-15] MEDS: Vancomycin 25 MG/ML PO SCH (22:02)
--- NOTE | 2017-05-15 23:21 | PN ---
DATE: 05/15/2017 SUBJECTIVE: The patient is seen in bed early this morning, she is chronically ill and weak. PHYSICAL EXAMINATION VITAL SIGNS: Temperature is 98, blood pressure is 112/60, respiratory rate of 18, heart rate of 101. HEENT: Unremarkable. NECK: Supple. LUNGS: Have decreased breath sounds. HEART: Normal S1, S2. ABDOMEN: Soft, nontender. LABORATORY EXAMINATION: Reveals a white count of 8, hemoglobin of 9 and platelets of 150. Chemistries reveals the BUN of 98, creatinine of 10. Microbiology revels a C. diff is positive, antigen toxin is negative. MEDICATIONS: Reveals the patient to be off of antibiotics. ASSESSMENT AND PLAN: This is an 82-year-old female with severe sepsis, acute sigmoid diverticulitis, acute cholecystitis and also an acute non-ST elevation myocardial infarction. The patient is currently off of antibiotics; diabetic; hypertension; coronary artery disease; congestive heart failure; end-stage renal disease, on hemodialysis and risk for developing nosocomial infection. Not a good candidate for cholecystectomy due to recent acute myocardial infarction. Jeromy Castellanos MD
[2017-05-16] MEDS: Pantoprazole 20 mg EC Tab PO SCH (05:14)
[2017-05-16] MEDS: Levothyroxine 50 MCG TAB PO SCH (05:14)
[2017-05-16] MEDS: Insulin Reg-LOW-Coverage SC SCH ×4 (06:51→22:46)
--- NOTE | 2017-05-16 11:23 | CP.PCM.PN ---
Subjective - Date & Time of Evaluation Date of Evaluation: 05/16/17 Time of Evaluation: 10:30 - Subjective Subjective: S&E at bedside, chart reviewed, found to be CDIFF (+) antigen, started on oral Vancomycin by ID, patient reports "pasty " stool, had 3 soft BM, no blood noted. No new complaints. Denies abdominal pain. No acute overnight events. Objective - Vital Signs/Intake and Output Vital Signs (last 24 hours): Temp Pulse Resp BP Pulse Ox 98.7 F 67 16 112/68 100 05/15/17 16:35 05/15/17 18:15 05/15/17 16:35 05/15/17 18:15 05/15/17 11:20 - Medications Medications: Current Medications Acetaminophen (Tylenol 325mg Tab) 650 mg PO Q6H PRN; Protocol PRN Reason: Pain, moderate (4-7) Calcium Acetate (Phoslo) 667 mg PO TID [facility] Last Admin: 05/16/17 09:51 Dose: 667 mg Gabapentin (Neurontin) 100 mg PO HS RUTHANN PRN Reason: Protocol Last Admin: 05/15/17 22:01 Dose: 100 mg Insulin Human Regular (Humulin R Low) 0 units SC ACHS RUTHANN PRN Reason: Protocol Last Admin: 05/16/17 06:51 Dose: Not Given Isosorbide Mononitrate (Imdur Er) 30 mg PO 0600 RUTHANN PRN Reason: Protocol Last Admin: 05/16/17 05:14 Dose: Not Given Levothyroxine Sodium (Synthroid) 50 mcg PO 0600 RUTHANN PRN Reason: Protocol Last Admin: 05/16/17 05:14 Dose: 50 mcg Metoprolol Tartrate (Lopressor) 25 mg PO 0800,1800 RUTHANN PRN Reason: Protocol Last Admin: 05/16/17 08:22 Dose: Not Given Pantoprazole Sodium (Protonix Ec Tab) 20 mg PO 0600 [facility] Last Admin: 05/16/17 05:14 Dose: 20 mg Polyethylene Glycol (Miralax) 17 gm PO BID RUTHANN PRN Reason: Protocol Vancomycin HCl (Vancocin 25 Mg/Ml (Oral Use)) 250 mg PO QID RUTHANN PRN Reason: Protocol Stop: 05/25/17 22:01 Last Admin: 05/15/17 22:02 Dose: 250 mg - Labs Labs: 05/14/17 14:45 05/14/17 14:45 - Constitutional Appears: No Acute Distress - Eye Exam Eye Exam: Normal appearance. absent: Scleral icterus - ENT Exam ENT Exam: Mucous Membranes Moist - Respiratory Exam Respiratory Exam: NORMAL BREATHING PATTERN. absent: Respiratory Distress - Cardiovascular Exam Cardiovascular Exam: +S1, +S2 - GI/Abdominal Exam GI & Abdominal Exam: Soft, Normal Bowel Sounds. absent: Guarding, Tenderness, Rebound - Extremities Exam Extremities Exam: absent: Calf Tenderness, Pedal Edema - Neurological Exam Neurological Exam: Alert, Awake, Oriented x3 - Skin Skin Exam: Dry, Warm Assessment and Plan - Assessment and Plan (Free Text) Assessment: Assessment: CDIff colitis Resolved Abdominal Pain s/p cholecystitis NSTEMI End-stage renal disease on dialysis Chronic anemia Diabetes mellitus Chronic constipation Plan: on Vancomycin on aspirin PPI on low residual soft diet Miralax on hold Seen and discussed with Dr. Theodore.
[2017-05-16] MEDS: Vancomycin 25 MG/ML PO SCH ×3 (11:49→22:47)
[2017-05-16 14:54] LABS: BASO # 0.01 K/mm3 (0.0-2.0); BASO % 0.2 % (0.0-3.0); EOS # 0.1 (0.0-0.7); EOS % 1.7 % (1.5-5.0); GRAN # 3.25 (1.4-6.5); GRAN % 54.8 % (50.0-68.0); HEMOGLOBIN 8.8 g/dL (12.0-16.0); LYMPH # 2.2 (1.2-3.4); LYMPH % 36.4 % (22.0-35.0); MEAN CELL VOLUME 94.5 fl (80.0-105.0); MEAN CORPUSCULAR HGB CONC 31.8 g/dl (31.0-37.0); MEAN PLATELET VOLUME 9.3 fl (7.0-11.0); MONO # 0.4 (0.1-0.6); MONO % 6.9 % (1.0-6.0); RBC 2.93 10^6/uL (3.5-6.1); RED CELL DISTRIBUTION WIDTH 17.3 % (11.5-14.5); WHITE BLOOD COUNT 5.9 10^3/ul (4.5-11.0)
[2017-05-16 15:25] LABS: ALB/GLOB RATIO 0.9 (1.1-1.8); ALBUMIN 3.5 g/dL (3.0-4.8); CALCIUM 7.9 mg/dL (8.4-10.5); MAGNESIUM 1.8 mg/dL (1.7-2.2)
[2017-05-16] MEDS: Insulin Human NPH/Reg 70/30 Vial(3 ml) SC SCH (17:50)
--- NOTE | 2017-05-16 18:44 | PN ---
SUBJECTIVE: An 82-year-old female on the transitional care unit. She has recently completed a course of antibiotics for acute diverticulitis and acute cholecystitis. She also had a non-ST myocardial infarction. She is on dialysis 4 times a week for chronic kidney disease, thyroid replacement therapy for hypothyroid disease, a bowel regimen, on Imdur, metoprolol for her arteriosclerotic heart disease, Neurontin for peripheral neuropathy, insulin sliding scale along with her insulin medication. PHYSICAL EXAMINATION: VITAL SIGNS: Temp of 98.7, blood pressure is 120/70. GENERAL: She is awake. LUNGS: Clear. HEART: S1 and S2. ABDOMEN: Soft and scaphoid with positive bowel sounds. EXTREMITIES: Show no evidence of edema. LABORATORY DATA: Random blood sugar was 100. ASSESSMENT AND PLAN: She will continue occupational and physical therapy. She had a positive Clostridium difficile study and was placed on vancomycin 250 q.i.d. by Infectious Disease. She is being followed by Infectious Disease and Renal. We will continue current level of care. She is scheduled for dialysis today. Shavonne Ascencio MD
--- NOTE | 2017-05-16 19:20 | PN ---
DATE: 05/16/2017 SUBJECTIVE: The patient is seen lying in bed. She is awake. She is alert. She complains of diarrhea. PHYSICAL EXAMINATION GENERAL: Elderly lady lying in bed. VITAL SIGNS: Blood pressure 112/68, heart rate 67, respiratory rate 18 and temperature 98.7. HEENT: Normocephalic, atraumatic, positive pallor. NECK: Supple, no JVD. LUNGS: Bilateral equal entry, no rales. CARDIAC: S1 and S2, regular rate and rhythm, no murmur, no rub. ABDOMEN: Soft, nondistended, nontender, bowel sounds present. EXTREMITIES: No lower extremity edema. INTAKE AND OUTPUT: Not charted. LABORATORY DATA: No new labs. C. diff antigen positive and toxin negative from 05/14/2017. CURRENT MEDICATIONS: Insulin, Imdur, Lopressor, MiraLax, Neurontin, PhosLo, Protonix, Synthroid, Tylenol and vancomycin p.o. 250 q.i.d. ASSESSMENT: 1. Status post acute diverticulitis. 2. Clostridium difficile antigen positive. 3. Noninsulin-dependent diabetes mellitus. 4. Hypertension. 5. Coronary artery disease. 6. End-stage renal disease. PLAN 1. Dialysis today. 2. Continue p.o. vancomycin. 3. Continue phosphate binders. 4. Monitor fingersticks. 5. Continue current antihypertensives Barbi Linares MD
[2017-05-17] MEDS: Pantoprazole 20 mg EC Tab PO SCH (05:59)
[2017-05-17] MEDS: Levothyroxine 50 MCG TAB PO SCH (05:59)
[2017-05-17] MEDS: Insulin Reg-LOW-Coverage SC SCH ×2 (07:04→12:16)
[2017-05-17 09:51] VITALS: O2SAT 97
[2017-05-17] MEDS: Vancomycin 25 MG/ML PO SCH ×2 (10:41→14:23)
[2017-05-17] MEDS: Insulin Human NPH/Reg 70/30 Vial(3 ml) SC SCH (11:00)
[2017-05-17 12:15] VITALS: BP 128/38; PULSE 67; RESP 16; TEMP 98
--- NOTE | 2017-05-17 14:14 | PN ---
DATE: 05/17/2017 SUBJECTIVE: The patient is seen sitting in bed. She is eating lunch. She is awake. She is alert. She feels better. PHYSICAL EXAMINATION: GENERAL: Elderly lady, sitting in chair. VITAL SIGNS: Blood pressure 128/38, heart rate 67, respiratory rate 16, temperature 98. HEENT: Normocephalic, atraumatic, positive pallor. NECK: Supple, no JVD. LUNGS: Bilateral equal entry, no rales. CARDIAC: S1 and S2, regular rate and rhythm, no murmur, no rub. ABDOMEN: Obese, distended, soft, nontender, bowel sounds present. EXTREMITIES: No lower extremity edema. INTAKE AND OUTPUT: Not charted. LABORATORY DATA: No new labs. MEDICATIONS: List reviewed. ASSESSMENT: 1. Acute diverticulitis. 2. Pseudomembranous colitis. 3. Kqa-foifiuw-syugxmxfs diabetes mellitus. 4. Hypertension. 5. Coronary artery disease/paroxysmal atrial fibrillation. PLAN: 1. Continue Lopressor 25 b.i.d. 2. Continue insulin. 3. Continue phosphate binders. 4. No objection to discharge. Barbi Linares MD
--- NOTE | 2017-05-17 16:42 | CP.PCM.PN ---
Subjective - Date & Time of Evaluation Date of Evaluation: 05/17/17 Time of Evaluation: 12:00 - Subjective Subjective: Comfortable, no fevers, no abdominal pain. Objective - Vital Signs/Intake and Output Vital Signs (last 24 hours): Temp Pulse Resp BP Pulse Ox 98 F 67 16 128/38 L 97 05/17/17 10:00 05/17/17 10:00 05/17/17 10:00 05/17/17 10:00 05/17/17 10:00 Intake and Output: 05/17/17 05/17/17 06:59 18:59 Intake Total 420 Balance 420 - Labs Labs: 05/16/17 14:20 05/16/17 14:20 - Constitutional Appears: Chronically Ill - Head Exam Head Exam: NORMAL INSPECTION - Respiratory Exam Respiratory Exam: Decreased Breath Sounds - Cardiovascular Exam Cardiovascular Exam: +S1, +S2 - GI/Abdominal Exam GI & Abdominal Exam: Soft. absent: Tenderness Assessment and Plan - Assessment and Plan (Free Text) Plan: Assessment S/P severe sepsis with acute sigmoid diverticulitis and acute cholecystitis C. diff. associated diarrhea history of acute NSTEMI history of sepsis due to acute descending colon diverticulitis and bilateral lobe healthcare-associated pneumonia history of healthcare-associated pneumonia (right upper lobe, bilateral lower lobes) HTN DM CAD with chronic CHF ESRD on HD Plan continue PO Vancomycin (day 2) to complete 10 days of therapy discussed with Dr. Ascencio
== END 2017-05-17 15:24 | disposition home or self-care (01) | DRG 871 ==
LOC: TRCU 20:33
PROVIDERS: ADMIT Internal Medicine; ATTEND Internal Medicine
PROC: F07Z9FZ Gait Training/Functional Ambulation Treatment using Assistive, Adaptive, Supportive or Protective Equipment (ICD-10-PCS; principal; 2017-05-09)
PROC: F08Z4FZ Home Management Treatment using Assistive, Adaptive, Supportive or Protective Equipment (ICD-10-PCS; 2017-05-09)
PROC: 5A1D70Z Performance of Urinary Filtration, Intermittent, Less than 6 Hours Per Day (ICD-10-PCS; 2017-05-09)
PROC: 5A1D70Z Performance of Urinary Filtration, Intermittent, Less than 6 Hours Per Day (ICD-10-PCS; 2017-05-11)
PROC: 5A1D70Z Performance of Urinary Filtration, Intermittent, Less than 6 Hours Per Day (ICD-10-PCS; 2017-05-12)
PROC: 5A1D70Z Performance of Urinary Filtration, Intermittent, Less than 6 Hours Per Day (ICD-10-PCS; 2017-05-14)
PROC: 5A1D70Z Performance of Urinary Filtration, Intermittent, Less than 6 Hours Per Day (ICD-10-PCS; 2017-05-16)
DX: A41.9 Sepsis, unspecified organism (principal); K57.32 Diverticulitis of large intestine without perforation or abscess without bleeding; K81.0 Acute cholecystitis; Z79.2 Long term (current) use of antibiotics; N18.6 End stage renal disease; I21.4 Non-ST elevation (NSTEMI) myocardial infarction; I13.2 Hypertensive heart and chronic kidney disease with heart failure and with stage 5 chronic kidney disease, or end stage renal disease; A04.72 Enterocolitis due to Clostridium difficile, not specified as recurrent; R64 Cachexia; E11.22 Type 2 diabetes mellitus with diabetic chronic kidney disease; E87.5 Hyperkalemia; G62.9 Polyneuropathy, unspecified; I48.0 Paroxysmal atrial fibrillation; N25.81 Secondary hyperparathyroidism of renal origin; R65.20 Severe sepsis without septic shock; Z79.4 Long term (current) use of insulin; E03.9 Hypothyroidism, unspecified; Z99.2 Dependence on renal dialysis; J44.9 Chronic obstructive pulmonary disease, unspecified; I50.9 Heart failure, unspecified; I25.10 Atherosclerotic heart disease of native coronary artery without angina pectoris; D63.1 Anemia in chronic kidney disease; F32.9 Major depressive disorder, single episode, unspecified; K59.09 Other constipation; E78.5 Hyperlipidemia, unspecified; Z87.01 Personal history of pneumonia (recurrent)

== ENCOUNTER 2017-05-23 17:30 | Inpatient (IN) | payer MEDICARE, OTHER ==
[2017-05-23] MEDS ORDERED: Oxycodone/Acetaminophen 5/325 mg Tab PO STA (18:29)
--- NOTE | 2017-05-23 18:41 | ED PDOC ---
Arrival/HPI - General Chief Complaint: Trauma Time Seen by Provider: 05/23/17 17:49 Historian: Patient - History of Present Illness Narrative History of Present Illness (Text): 05/23/17 18:37 82 year old female, whose history includes hypertension, high cholesterol, diabetes, anemia, ESRD, and hypothyroidism, presents to the Emergency department status post a fall yesterday. Patient had her foot stuck in the door , twisted her left ankle, and fell. Patient caught herself as she was falling and did not hit her head or lose consciousness. Patient was able to get up with assistance from her son, but still has pain today. Patient complains of pain to left foot, left ankle, and left knee. Patient denies any fever, chills, chest pain, shortness of breath, nausea, vomiting, diarrhea, urinary symptoms, back pain, neck pain, headache, dizziness, or any other complaints. Professional Housing Consultant service used: Geneva Tang Time/Duration: 24 hours Symptom Onset: Sudden Symptom Course: Worsening Activities at Onset: Light Context: Walking, Home Past Medical History - Provider Review Nursing Documentation Reviewed: Yes - Infectious Disease Hx of Infectious Diseases: None - Tetanus Immunization Tetanus Immunization: Unknown - Cardiac Hx Cardiac Disorders: Yes Hx Congestive Heart Failure: Yes - Pulmonary Hx Chronic Obstructive Pulmonary Disease (COPD): Yes - Neurological Hx Neurological Disorder: Yes (numbnes/tingling left leg and ft) Hx Dizziness: Yes - HEENT Hx HEENT Disorder: Yes Hx Cataracts: Yes (b/l sx) - Renal Hx Renal Disorder: Yes Hx Dialysis: Yes ([facility] – [place] [facility]) Date of Last Dialysis Treatment: 04/30/17 - Endocrine/Metabolic Hx Diabetes Mellitus Type 2: Yes - Hematological/Oncological Hx Anemia: Yes - Integumentary Other/Comment: 2cm x 0.2cm vertical slit to coccyx clean and dry slight redness , slight redness to buttocks/sacrum/ age spots ble/small dry red scabs over desi shunt, skin discolorations ble and arms, age spots face scalp neck chest back, eccymotic arreas to lower abd - Musculoskeletal/Rheumatological Hx Falls: No - Gastrointestinal Hx Gastrointestinal Disorders: Yes (hx rectal bleeding) Hx Diverticulitis: Yes Hx Gastroesophageal Reflux: Yes - Genitourinary/Gynecological Hx Reproductive Disorders: No - Psychiatric Hx Psychophysiologic Disorder: No Hx Substance Use: No - Surgical History Hx Cardiac Catheterization: Yes Hx Hysterectomy: Yes Hx Orthopedic Surgery: Yes (left hip replacement) Other/Comment: desi av shunt - Anesthesia Hx Anesthesia: Yes Hx Anesthesia Reactions: No Hx Malignant Hyperthermia: No - Suicidal Assessment Feels Threatened In Home Enviroment: No Family/Social History - Physician Review Nursing Documentation Reviewed: Yes Family/Social History: Unknown Family HX Smoking Status: Never Smoked Hx Alcohol Use: No Hx Substance Use: No Hx Substance Use Treatment: No Allergies/Home Meds Allergies/Adverse Reactions: Allergies ceftriaxone Allergy (Verified 02/04/17 20:41) ITCHING Home Medications: Home Meds Medication Instructions Recorded Confirmed Calcium Acetate [Phoslo] 667 mg PO TID 06/12/16 05/13/17 Fenofibrate [Tricor] 135 mg PO DAILY 04/30/17 05/13/17 Insulin NPH Hum/Reg Insulin Hm 10 unit SC BID 04/30/17 05/13/17 [Humulin 70-30 Vial] Pyridoxine [Vitamin B6] 100 mg PO DAILY 04/30/17 05/13/17 Review of Systems - Physician Review All systems were reviewed & negative as marked: Yes - Review of Systems Constitutional: absent: Fevers Respiratory: absent: SOB Cardiovascular: absent: Chest Pain Gastrointestinal: absent: Abdominal Pain Genitourinary Female: absent: Dysuria Musculoskeletal: Other (pain to left foot, ankle, and knee). absent: Back Pain , Neck Pain Neurological: absent: Headache, Dizziness Physical Exam Vital Signs Reviewed: Yes Vital Signs Temp Pulse Resp BP Pulse Ox 05/23/17 17:59 98.0 F 75 18 128/76 97 Temperature: Afebrile Blood Pressure: Normal Pulse: Regular Respiratory Rate: Normal Appearance: Positive for: Well-Appearing, Non-Toxic, Comfortable Pain Distress: None Mental Status: Positive for: Alert and Oriented X 3 - Systems Exam Head: Present: Atraumatic, Normocephalic Pupils: Present: PERRL Extroacular Muscles: Present: EOMI Conjunctiva: Present: Normal Mouth: Present: Moist Mucous Membranes Neck: Present: Normal Range of Motion Respiratory/Chest: Present: Clear to Auscultation, Good Air Exchange. No: Respiratory Distress, Accessory Muscle Use Cardiovascular: Present: Regular Rate and Rhythm, Normal S1, S2. No: Murmurs Abdomen: Present: Normal Bowel Sounds. No: Tenderness, Distention, Peritoneal Signs Back: Present: Normal Inspection Upper Extremity: Present: Normal Inspection. No: Cyanosis, Edema Lower Extremity: Present: Edema (left ankle and left foot), Other (ecchymosis to left ankle. Full ROM to left knee and left hip. Sensation intact. +1 pedal pulses). No: Normal ROM (decreased ROM to left ankle and left foot), Tenderness (no tenderness to left hip) Neurological: Present: GCS=15, CN II-XII Intact, Speech Normal Skin: Present: Warm, Dry, Normal Color. No: Rashes Psychiatric: Present: Alert, Oriented x 3, Normal Insight, Normal Concentration Medical Decision Making ED Course and Treatment: 05/23/17 18:46 Impression: 82 year ole female presents to the Emergency department status post a fall complaining of pain to left foot, ankle, and knee. Differential Diagnosis included but are not limited to: mechanical fall, rule out fracture of left lower leg Plan: -- Left ankle xray, left foot xray, left knee xray, pelvis xray, left tibia fibula xray -- Percocet -- Labs -- Reassess and disposition Prior Visits: Notes and results from previous visits were reviewed. Patient was last seen in the emergency department on 04/30/17 for abdominal pain. Patient was diagnosed with diverticulitis and was hospitalized. Progress Notes: 05/23/17 19:[address] Ignacio to f/u labs, Xrays, reevaluate and disposition. - RAD Interpretation Radiology Orders: 05/23/17 18:31 ANKLE LEFT 3 VIEWS ROUTINE [RAD] Stat FOOT LEFT 3 VIEWS ROUTINE [RAD] Stat KNEE LEFT 2 VIEWS (AP & LAT) [RAD] Stat PELVIS ONE VIEW [RAD] Stat TIBIA FIBULA LEFT [RAD] Stat - Medication Orders Current Medication Orders: Discontinued Medications Oxycodone/Acetaminophen (Percocet 5/325 Mg Tab) 1 tab PO STAT STA Stop: 05/23/17 18:30 - Scribe Statement The provider has reviewed the documentation as recorded by the Kyle Evangelista Provider Scribe Attestation: All medical record entries made by the Scribe were at my direction and personally dictated by me. I have reviewed the chart and agree that the record accurately reflects my personal performance of the history, physical exam, medical decision making, and the department course for this patient. I have also personally directed, reviewed, and agree with the discharge instructions and disposition. Disposition/Present on Arrival - Present on Arrival Any Indicators Present on Arrival: No History of DVT/PE: No History of Uncontrolled Diabetes: No Urinary Catheter: No History Surgical Site Infection Following: None - Disposition Have Diagnosis and Disposition been Completed?: No Diagnosis: Leg injury Disposition Time: 19:27 Condition: FAIR Forms: [email or web address] (Polish)
[2017-05-23 19:32] LABS: BASO # 0.01 K/mm3 (0.0-2.0); BASO % 0.2 % (0.0-3.0); EOS # 0.1 (0.0-0.7); EOS % 0.9 % (1.5-5.0); GRAN # 4.15 (1.4-6.5); LYMPH # 1.9 (1.2-3.4); LYMPH % 29.5 % (22.0-35.0); MEAN CELL VOLUME 98.5 fl (80.0-105.0); MEAN CORPUSCULAR HGB CONC 30.5 g/dl (31.0-37.0); MEAN PLATELET VOLUME 8.5 fl (7.0-11.0); MONO # 0.3 (0.1-0.6); MONO % 4.4 % (1.0-6.0); RBC 2.63 10^6/uL (3.5-6.1); RED CELL DISTRIBUTION WIDTH 17.6 % (11.5-14.5); WHITE BLOOD COUNT 6.4 10^3/ul (4.5-11.0)
[2017-05-23 19:38] LABS: CALCIUM 9.2 mg/dL (8.4-10.5); HEMOGLOBIN 7.9 g/dL (12.0-16.0)
[2017-05-23 19:39] LABS: INR 1.07 (0.93-1.08); PROTHROMBIN TIME 12.2 SECONDS (9.4-12.5)
--- NOTE | 2017-05-23 21:34 | ED PDOC ---
Physical Exam Vital Signs Reviewed: Yes Vital Signs Temp Pulse Resp BP Pulse Ox 05/23/17 20:30 72 17 127/80 98 05/23/17 17:59 98.0 F 75 18 128/76 97 Temperature: Afebrile Blood Pressure: Normal Pulse: Regular Respiratory Rate: Normal Appearance: Positive for: Well-Appearing, Non-Toxic, Comfortable Pain Distress: None Mental Status: Positive for: Alert and Oriented X 3 Medical Decision Making ED Course and Treatment: 05/23/17 21:33 Case signed out to me by Dr. Figueroa. Patient is an 82 year old female with left ankle and leg swelling, bruising, tenderness, purple and blue. Patient is not able to ambulate. Patient is unable to bear weight, can't stand on left leg. Spoke with Dr. Ascencio, who asked for patient to be admitted to hospital, Dr. Linares on consult for renal and Dr. Hardy for ortho. Not safe to send patient home, cant take care of herself. No formal reading of xray, may need MRI or CT. - Lab Interpretations Lab Results: 05/23/17 19:20 05/23/17 19:20 Lab Results 05/23/17 19:20: PT 12.2, INR 1.07, APTT 29.0 05/23/17 19:20: Sodium 139, Potassium 3.2 L, Chloride 95 L, Carbon Dioxide 30, Anion Gap 17, BUN 14, Creatinine 1.5 H, Est GFR ( Amer) 40, Est GFR (Non- Af Amer) 33, Random Glucose 93, Calcium 9.2 05/23/17 19:20: WBC 6.4, RBC 2.63 L, Hgb 7.9 L, Hct 25.9 L, MCV 98.5 D, MCH 30.0, MCHC 30.5 L, RDW 17.6 H, Plt Count 134, MPV 8.5, Gran % 65.0, Lymph % ( Auto) 29.5, Nye % (Auto) 4.4, Eos % (Auto) 0.9 L, Baso % (Auto) 0.2, Gran # 4.15, Lymph # (Auto) 1.9, Nye # (Auto) 0.3, Eos # (Auto) 0.1, Baso # (Auto) 0.01 I have reviewed the lab results: Yes - RAD Interpretation Radiology Orders: 05/23/17 18:31 FOOT LEFT 3 VIEWS ROUTINE [RAD] Stat KNEE LEFT 2 VIEWS (AP & LAT) [RAD] Stat 05/23/17 20:19 ANKLE LEFT 3 VIEWS ROUTINE [RAD] Stat 05/23/17 20:20 PELVIS ONE VIEW [RAD] Stat TIBIA FIBULA LEFT [RAD] Stat - Medication Orders Current Medication Orders: Discontinued Medications Oxycodone/Acetaminophen (Percocet 5/325 Mg Tab) 1 tab PO STAT STA Stop: 05/23/17 18:30 Last Admin: 05/23/17 19:31 Dose: 1 tab MAR Pain Assessment Document 05/23/17 19:31 SE (Rec: 05/23/17 19:31 SE [id number]) Pain Reassessment Is this a pain reassessment? No Sleep Is patient sleeping during reassessment? No Presence of Pain Presence of Pain Yes Pain Scale Used Pain Scale Used Numeric - PA / [employer] / Resident Statement MD/DO has reviewed & agrees with the documentation as recorded. - Scribe Statement The provider has reviewed the documentation as recorded by the Kyle Julien Provider Scribe Attestation: All medical record entries made by the Kyle were at my direction and personally dictated by me. I have reviewed the chart and agree that the record accurately reflects my personal performance of the history, physical exam, medical decision making, and the department course for this patient. I have also personally directed, reviewed, and agree with the discharge instructions and disposition. Disposition/Present on Arrival - Present on Arrival Any Indicators Present on Arrival: No History of DVT/PE: No History of Uncontrolled Diabetes: No Urinary Catheter: No History of Decub. Ulcer: No History Surgical Site Infection Following: None - Disposition Have Diagnosis and Disposition been Completed?: Yes Diagnosis: Leg injury, Inability to ambulate due to ankle or foot, ESRD (end stage renal disease) on dialysis, Renal failure (ARF), acute on chronic Disposition: HOSPITALIZED Disposition Time: 21:47 Patient Plan: Admission Patient Problems: Current Active Problems Problem Status Onset ESRD (end stage renal disease) on dialysis Acute Inability to ambulate due to ankle or foot Acute Leg injury Acute Renal failure (ARF), acute on chronic Acute Condition: FAIR
[2017-05-24] MEDS ORDERED: Oxycodone/Acetaminophen 5/325 mg Tab PO ONE (01:59)
[2017-05-24 02:22] VITALS: BMI 24.8
[2017-05-24] MEDS ORDERED: Pneumococcal 23-Valent Vaccine IM ONE (02:22)
[2017-05-24] MEDS ORDERED: Influenza Vaccine 60 mcg/0.5 mL SYR (4YR UP) IM ONE (02:22)
[2017-05-24 06:44] LABS: BASO # 0.01 K/mm3 (0.0-2.0); BASO % 0.2 % (0.0-3.0); EOS # 0.1 (0.0-0.7); EOS % 1.8 % (1.5-5.0); GRAN # 3.79 (1.4-6.5); GRAN % 62.4 % (50.0-68.0); LYMPH # 1.8 (1.2-3.4); LYMPH % 29.5 % (22.0-35.0); MEAN CORPUSCULAR HEMOGLOBIN 30.1 pg (25.0-35.0); MEAN CORPUSCULAR HGB CONC 30.7 g/dl (31.0-37.0); MEAN PLATELET VOLUME 9.1 fl (7.0-11.0); MONO # 0.4 (0.1-0.6); MONO % 6.1 % (1.0-6.0); RBC 2.49 10^6/uL (3.5-6.1); RED CELL DISTRIBUTION WIDTH 17.6 % (11.5-14.5); WHITE BLOOD COUNT 6.1 10^3/ul (4.5-11.0)
[2017-05-24 06:59] LABS: HEMOGLOBIN 7.5 g/dL (12.0-16.0)
[2017-05-24 07:09] LABS: ALB/GLOB RATIO 0.8 (1.1-1.8); ALBUMIN 3.1 g/dL (3.0-4.8); CALCIUM 8.7 mg/dL (8.4-10.5)
--- NOTE | 2017-05-24 09:18 | CT ---
PROCEDURE: CT of the left ankle without contrast HISTORY: Possible Fracture. Left foot and ankle. COMPARISON: TECHNIQUE: Radiation dose: Total exam DLP = 385 mGy-cm. This CT exam was performed using one or more of the following dose reduction techniques: Automated exposure control, adjustment of the mA and/or kV according to patient size, and/or use of iterative reconstruction technique. FINDINGS: There is an obliquely oriented minimally displaced fracture of the lateral malleolus at the level of the ankle joint. Best visualized on image 111 series 602 There is a displaced fracture of the anterior corner of the distal tibia extending into the articular surface. This is best seen on sagittal image 86 series 602. The talar dome is intact. IMPRESSION: Fracture of the lateral malleolus in the anterior aspect of the distal tibia
[2017-05-24] MEDS: Levothyroxine 50 MCG TAB PO SCH (10:59)
[2017-05-24] MEDS: Vancomycin 25 MG/ML PO SCH ×3 (13:14→21:54)
--- NOTE | 2017-05-24 14:13 | RAD ---
PROCEDURE: Radiographs of the pelvis. HISTORY: fall r/o fx COMPARISON: None. FINDINGS: BONES: Pelvic Bones: Examination limited due to body habitus. No evidence of fracture. Hips: Left hip arthroplasty. Grossly intact. JOINTS: Sacroiliac Joints: Unremarkable. Pubic Symphysis: Unremarkable. OTHER FINDINGS: None. IMPRESSION: No acute fracture identified. Limited examination due to patient body habitus. Left hip arthroplasty.
--- NOTE | 2017-05-24 14:13 | RAD ---
PROCEDURE: Radiographs of the left tibia and fibula. HISTORY: fall r/o fx COMPARISON: None available. TECHNIQUE: Frontal and lateral views obtained. FINDINGS: BONES: No fracture or destructive lesion. JOINT SPACES: Unremarkable. OTHER FINDINGS: None. IMPRESSION: Unremarkable radiographs of the left tibia and fibula.
--- NOTE | 2017-05-24 14:14 | RAD ---
PROCEDURE: Left Ankle Radiographs. HISTORY: fall r/o fx COMPARISON: None FINDINGS: BONES: Normal. No fracture. JOINTS: Normal. No osteoarthritis. Ankle mortise maintained. Talar dome intact SOFT TISSUES: Normal. OTHER FINDINGS: None. IMPRESSION: Normal left ankle radiographs.
--- NOTE | 2017-05-24 14:15 | RAD ---
PROCEDURE: Left Knee Radiographs. HISTORY: Pain. COMPARISON: None. FINDINGS: BONES: Normal. No fracture. JOINTS: Normal. No osteoarthritis. JOINT EFFUSION: None. OTHER FINDINGS: None. IMPRESSION: Normal radiographs of the left knee.
--- NOTE | 2017-05-24 14:25 | RAD ---
PROCEDURE: Left Foot Radiographs. HISTORY: fall r/o fx COMPARISON: None. FINDINGS: BONES: Suspect nondisplaced medial malleolar fracture. No adjacent soft tissue swelling. Possibly subacute lesion. Please correlate clinically. . No other fracture identified. JOINTS: Normal. SOFT TISSUES: Normal. OTHER FINDINGS: None. IMPRESSION: Nondisplaced medial malleolar fracture. No other fracture identified.
[2017-05-24] MEDS: Oxycodone/Acetaminophen 5/325 mg Tab PO PRN (15:57)
[2017-05-24] MEDS: Insulin Human NPH/Reg 70/30 Vial(3 ml) SC SCH (17:58)
--- NOTE | 2017-05-24 19:31 | CON ---
DATE: 05/24/2017 ORTHOPEDIC CONSULTATION An 82-year-old female admitted to Dr. Ascencio' service on 05/23/2017. HISTORY OF PRESENT ILLNESS: The patient fell at home as she was frail and sustained injuries mainly to her left foot and ankle, which she has extensive ecchymosis and swelling, but with a stable ankle mortise. X-ray shows suspicion of a nondisplaced fracture of the medial malleolus below the plafond and possible to the lateral malleolus, so I am going to order a CAT scan to investigate the osseous lesions of the left ankle and foot, there may be more than one fracture, that is the best way, but she has good ankle mortise with good range of motion when carefully examined and I better not put her on a cast because of her age and she will get more osteopenic, so I am going to fit her with fractured ankle boot and once the CAT scan is found, we could get her up out of bed and ambulate. The rest of her injuries appeared to be nonosseous including her back, which has aching in this, but no evidence of a fracture. There is no fracture of the hip, so she moves quite well. The left knee does have a little osteoarthritis, but no effusion, so we will go from there and start her on early mobilization once the CAT scan is done of the left foot and ankle, and get her moving, so she does not get more osteopenic. She may have to go to subacute rehab or to TCU floor with the ankle boot. FINAL DIAGNOSES: Traumatic injury to her left foot and ankle with swelling, ecchymosis, and suspicious of a fracture, so we will wait for that CAT scan. She has multiple bruising of the knee and the back and the pelvis, but no fracture. Dion Hardy DO
--- NOTE | 2017-05-24 20:48 | PN ---
DATE: SUBJECTIVE: An 82-year-old female. Nursing staff relates that there were no particular problems during the night. The patient is resting in bed this morning. She is relating that she is having some discomfort over the left lower extremity. She is status post fall with fracture of the left ankle. PHYSICAL EXAMINATION: VITAL SIGNS: Show a temperature of 97.8, pulse is 67, blood pressure is 149/49, respiratory rate is 20. LUNGS: Clear. HEART: S1 and S2 rhythm. ABDOMEN: Soft with positive bowel sounds. EXTREMITIES: Show mild ecchymosis of the left lower extremity with tenderness over the ankle. The patient is being seen by Dr. Hardy of the Orthopedics service and had ordered a CAT scan, which showed a fracture of the ankle, distal fibula. LABORATORY DATA: Her lab work showed a WBC of 6.1, RBC of 2.49, hemoglobin 7.5, hematocrit 24.4, platelet count 131. Chemistries showed a sodium of 138, potassium 4.2, chloride 95, BUN of 25, creatinine of 3.4, blood sugar was . AST is 39, albumin is 3.1. The patient will be seen by Orthopedics and followed. Also, he will be followed by Nephrology. The patient has chronic renal disease, on dialysis four times a week. She will resume her medications with Percocet on a p.r.n. basis for pain. Physical therapy consult will be requested. She will resume her vancomycin for history of C. diff. Family has been made aware of the clinical setting of the patient and the proposed treatment planned. Shavonne Ascencio MD
--- NOTE | 2017-05-24 21:38 | HP ---
HISTORY OF PRESENT ILLNESS: An 82-year-old female referred by Dr. Linares to the [facility] from dialysis. The patient was noted to have pain and swelling and bruising of the left lower extremity. Reportedly, according to the family, the patient had fallen day prior, injuring the area. She was referred to the emergency room for evaluation. PAST MEDICAL HISTORY: C. difficile infection, arteriosclerotic heart disease, carotid disease, hip surgery, iji-gpxsxfi-oflazfvtb diabetes, hypothyroid disease, diverticulosis, diverticulitis, non-ST myocardial infarction. SOCIAL HISTORY: She is a nonsmoker, nondrinker, and nondrug user. ALLERGIES: TO CEFTRIAXONE. HOME MEDICATIONS: Consist of vitamin B6, Protonix, Lopressor, Synthroid, Imdur, Humulin 70/30, Neurontin, TriCor, PhosLo, Lipitor, and Ecotrin. REVIEW OF SYSTEMS: Ten systems are reviewed. Pertinent findings are that there is mild edema of the left lower extremity with some areas of ecchymosis and some tenderness around the left ankle. The patient was seen in the emergency room by the emergency room physician who verbally reported that he did not see any evidence of fractures on the x-rays; however, the patient was reported having difficulty ambulating and pain and it was recommended that the patient be admitted. PHYSICAL EXAMINATION: VITAL SIGNS: Her temperature is 97.8, her pulse is 67, her blood pressure is 149/49, the respiratory rate is 20, the oxygen saturation is 98% on room air. HEENT: The patient is alert and oriented x3. States that the pain is bothersome. LUNGS: Clear with diminished breath sounds at the bases. HEART: S1 and S2 rhythm. ABDOMEN: Soft, scaphoid, positive bowel sounds. EXTREMITIES: As noted in the review of systems, there is some areas of ecchymosis on the left lower extremity with some tenderness around the ankle. The lower extremity CAT scan has reviewed and reported by the radiologist to show evidence of a fracture of the lateral malleolus in the anterior aspect of the distal tibia. It is a displaced fracture with minimally displaced on the lateral malleolus at the level of the ankle joint. There is a displaced fracture of the anterior corner of the distal tibia, extending into the articular surface. LABORATORY DATA: Showed a WBC of 6.1, RBC 2.59, hemoglobin 7.5, hematocrit 24.4, platelet count 131. PT of 12.2, INR 1.07, and PTT of 29. Chemistries showed sodium 138, potassium 4.2, chloride 95, the BUN is 25, the creatinine is 3.4, and the sugar is 117. LFTs: AST is 39, albumin is 3.1. The patient will be admitted because of intractable pain of the foot, ankle area on the left with difficulty walking. Orthopedic consult has been requested. Evidence of a fracture is noted on the report. Renal consult will be placed because of her underlying chronic kidney disease and dialysis requirement and further care and treatment plan as per clinical setting and input from the consultants. Shavonne Ascencio MD
[2017-05-25 07:07] LABS: MEAN CELL VOLUME 97.7 fl (80.0-105.0); MEAN CORPUSCULAR HEMOGLOBIN 30.4 pg (25.0-35.0); MEAN CORPUSCULAR HGB CONC 31.1 g/dl (31.0-37.0); MEAN PLATELET VOLUME 8.9 fl (7.0-11.0); RBC 2.63 10^6/uL (3.5-6.1); RED CELL DISTRIBUTION WIDTH 17.7 % (11.5-14.5); WHITE BLOOD COUNT 6.1 10^3/ul (4.5-11.0)
[2017-05-25] MEDS: Insulin Human NPH/Reg 70/30 Vial(3 ml) SC SCH ×2 (10:03→17:19)
[2017-05-25] MEDS: Pantoprazole 20 mg EC Tab PO SCH (10:06)
[2017-05-25] MEDS: Levothyroxine 50 MCG TAB PO SCH (10:07)
[2017-05-25] MEDS: Vancomycin 25 MG/ML PO SCH ×4 (10:09→21:47)
--- NOTE | 2017-05-25 11:22 | PN ---
DATE: SUBJECTIVE: An 82-year-old female, resting comfortably. Nursing staff relates that she had had discomfort over the left ankle yesterday. PHYSICAL EXAMINATION: VITAL SIGNS: Her temp is 98.2, her pulse is 70, her blood pressure is 143/58, her oxygen saturation is 98% on room air, the respiratory rate is 20. GENERAL: She is alert. LUNGS: Clear. HEART: An S1, S2 rhythm. ABDOMEN: Soft with positive bowel sounds. EXTREMITIES: Show some ecchymosis over the left ankle. She is noted to have had a fracture of the left ankle. We are awaiting Orthopedics' recommendation for a support boot which has been ordered. LABORATORY DATA: WBC is 6.1, RBC 2.63, hemoglobin 8, hematocrit 25.7, platelet count is 136. Random blood sugar is 101. ASSESSMENT AND PLAN: The patient has chronic renal disease, on dialysis 4 times a week, being followed by Nephrology. She has a history of Clostridium difficile, complaining of course of vancomycin. She has underlying insulin-dependent diabetes, hypothyroid disease, arteriosclerotic heart disease, non-ST myocardial infarction in the past, diverticulosis, diverticulitis, cholelithiasis, cholecystitis, peripheral neuropathy, hyperlipidemia. We will continue to monitor the patient. She has got a physical therapy evaluation and as per Orthopedics and Renal. Shavonne Ascencio MD
[2017-05-25 11:52] LABS: ALBUMIN 3.2 g/dL (3.0-4.8); CALCIUM 8.5 mg/dL (8.4-10.5); MAGNESIUM 1.9 mg/dL (1.7-2.2)
[2017-05-25 11:53] LABS: ALB/GLOB RATIO 0.8 (1.1-1.8)
--- NOTE | 2017-05-25 18:04 | CON ---
DATE: 05/25/2017 REASON FOR CONSULTATION: Fracture, left ankle; end-stage renal disease. HISTORY OF PRESENTING ILLNESS: An 82-year-old lady known to me from multiple prior evaluations, outpatient hemodialysis. The patient fell at home. She has severe pain in her left ankle. Unable to bear weight. She was brought to the emergency room. In the emergency room, she is found to have fracture of the lateral malleolus of the distal left tibia. The patient is admitted for pain management, PAST MEDICAL AND SURGICAL HISTORY: NIDDM, hypertension, ESRD, CAD, paroxysmal AFib, anemia of chronic kidney disease, CHF, diverticulitis, secondary hyperparathyroidism. FAMILY HISTORY: Noncontributory. SOCIAL HISTORY: No smoking, no alcohol use, no IV drug abuse. ALLERGIES: CEFTRIAXONE. CURRENT MEDICATIONS: Imdur 30, Lipitor 20, Lopressor 25 b.i.d., gabapentin 100, oxycodone q. 6 p.r.n., PhosLo, Protonix, Synthroid, fenofibrate, Tylenol, p.o. vancomycin, pyridoxine REVIEW OF SYSTEMS: The patient complains of severe pain in her left foot, unable to stand. She did not complain of any chest tightness, palpitations. She denies any abdominal pain. She denies any nausea or vomiting. All other systems are reviewed and unremarkable. PHYSICAL EXAMINATION: GENERAL: Elderly lady, sitting in chair. VITAL SIGNS: Blood pressure 143/58, heart rate 70, respiratory rate 20, temperature 98.2. HEENT: Normocephalic, atraumatic. NECK: Supple, no JVD. LUNGS: Bilateral equal air entry, no rales. CARDIAC: S1 and S2, regular rate and rhythm, no murmur, no rub. ABDOMEN: Soft, nondistended, nontender, bowel sounds present. EXTREMITIES: Positive bruise of the left ankle, swelling of the left ankle. INTAKE AND OUTPUT: Not charted. LABORATORY DATA: WBC 6, hemoglobin 8, hematocrit 25.7, platelets 136. Sodium 135, potassium 4.8, chloride 98, CO2 of 27, BUN 44, creatinine 5.5, glucose 148, calcium 8.5, phosphorus 5.4, magnesium 1.9, AST 44, ALT 22, albumin 3.2. ASSESSMENT 1. Fractured left lateral malleolus of the tibia. 2. Anemia, acute on chronic. 3. Kpx-uuhaaqr-jhnlnzahe diabetes mellitus.. 4. Hypertension. 5. End-stage renal disease.. PLAN: 1. Pain management. 2. Cast/boot as per orthopedics. 3. Transfuse 1 unit of PRBC. 4. Physical therapy. Barbi Linares MD
[2017-05-25] MEDS: Oxycodone/Acetaminophen 5/325 mg Tab PO PRN (21:46)
[2017-05-26 08:04] LABS: HEMOGLOBIN 9.3 g/dL (12.0-16.0); MEAN CELL VOLUME 96.2 fl (80.0-105.0); MEAN CORPUSCULAR HEMOGLOBIN 29.4 pg (25.0-35.0); MEAN CORPUSCULAR HGB CONC 30.6 g/dl (31.0-37.0); MEAN PLATELET VOLUME 8.8 fl (7.0-11.0); RBC 3.16 10^6/uL (3.5-6.1); RED CELL DISTRIBUTION WIDTH 17.2 % (11.5-14.5); WHITE BLOOD COUNT 6.1 10^3/ul (4.5-11.0)
[2017-05-26] MEDS: Levothyroxine 50 MCG TAB PO SCH (08:06)
[2017-05-26] MEDS: Oxycodone/Acetaminophen 5/325 mg Tab PO PRN ×2 (08:06→16:44)
[2017-05-26 08:39] LABS: ALB/GLOB RATIO 0.8 (1.1-1.8); ALBUMIN 3.4 g/dL (3.0-4.8); CALCIUM 8.7 mg/dL (8.4-10.5)
[2017-05-26] MEDS: Insulin Human NPH/Reg 70/30 Vial(3 ml) SC SCH ×2 (09:44→17:26)
[2017-05-26] MEDS: Pantoprazole 20 mg EC Tab PO SCH (09:45)
[2017-05-26] MEDS: Vancomycin 25 MG/ML PO SCH ×4 (09:46→21:43)
--- NOTE | 2017-05-26 09:49 | PN ---
DATE: SUBJECTIVE: The patient is currently seen sitting at the side of bed. She is complaining of having to wear an immobilizer over her left lower extremity secondary to her left ankle fracture. The patient is not going to have any surgery. She will be treated conservatively. The patient is scheduled for dialysis later this morning. The patient dialyzes four times a week. MEDICATIONS: Medication list reviewed. The patient is currently on Isordil, Lipitor, Lopressor, Neurontin, Percocet, PhosLo, Protonix, Synthroid, TriCor, Tylenol, vancomycin orally and vitamin B6. OBJECTIVE: VITAL SIGNS: Blood pressure 144/73, temperature 98.9. Respiratory rate 18 with a pulse of 89. Pulse ox is 97%. HEENT: Shows her to be normocephalic, atraumatic. Conjunctivae are pale. Sclerae are nonicteric. NECK: Supple. CHEST: Clear to auscultation and percussion. No rales or rhonchi or wheezing. CARDIOVASCULAR: Shows a normal S1, S2. No rubs. No gallops. Positive MR/TR. ABDOMEN: Soft. Nondistended, nontender. Bowel sounds are present. No rebound or guarding. EXTREMITIES: Show an immobilizer over her left lower extremity. Positive left upper extremity AV fistula. Right leg shows no edema. NEURO: Shows her be alert and oriented. LABORATORY DATA: CBC today white blood cell count 6.1, hemoglobin 9.2 with a platelet count of 131,000. Chemistry showed normal electrolytes. BUN 44 with a creatinine of 5.5 predialysis. Glucose is 148. Calcium 8.5 with a phosphorus of 5.4. Albumin was 3.2. X-rays, lower extremity CT scan showed a fracture of the left malleolus in the anterior aspect of the distal tibia. ASSESSMENT: 1. Fractured left lateral malleolus of the tibia. Discussed with orthopedics. No surgery planned. The patient will be treated conservatively. She will remain in an immobilizer. A cast will not be placed because of the weight of the cast and it will make it more difficult for her to get around. 2. History of end-stage renal disease. The patient will continue routine dialysis. The patient dialyzes four times a week. She is scheduled for dialysis later today. 3. History of anemia. This is secondary to chronic kidney disease. The patient will continue to receive Aranesp on dialysis together with IV iron per protocol. 4. History of coronary artery disease with paroxysmal atrial fibrillation, currently stable. 5. History of secondary hyperparathyroidism. The patient will continue a renal diet along with binder therapy. 6. History of hypothyroidism. The patient will continue thyroid replacement therapy. 7. History of Clostridium difficile colitis. The patient continues on oral vancomycin therapy. 8. History of hypertension. The patient will continue present blood pressure medication. Blood pressure is controlled. 9. Past history of diverticulitis. 10. History of jad-cwnwlut-yuuuofjxj diabetes mellitus. The patient will continue present dietary restrictions. In the outpatient setting, the patient had been on insulin therapy. PLAN: 1. Hemodialysis as per her routine. She dialyzes four times a week. 2. Continued orthopedic followup for her ankle fracture. 3. Continue present cardiac and blood pressure medications. 4. Continue renal diet and binder therapy. 5. The patient will likely need physical therapy and rehabilitation in light of her left ankle fracture. Buck Yanes MD
--- NOTE | 2017-05-26 15:48 | PN ---
DATE: SUBJECTIVE: This is an 82-year-old female resting in bed this morning. She states that she has some discomfort over the left ankle where she has a fracture and is now in a support boot. Nursing staff relates that there were no particular problems, although the patient did refuse her Lopressor this morning. PHYSICAL EXAMINATION: VITAL SIGNS: Her temperature is 98.9, pulse is 66, blood pressure is 155/54, respiratory rate is 18, oxygen saturation is 97% on room air. GENERAL: She is alert and oriented x3. LUNGS: Clear. HEART: S1 and S2 rhythm. ABDOMEN: Soft with positive bowel sounds. EXTREMITIES: There is a support boot on the left lower extremity. LABORATORY DATA: Shows WBC of 6.1, RBC of 3.16, hemoglobin 9.3, hematocrit 30.4, platelet count is 131. Chemistry shows sodium 138, potassium 4.1, chloride 95, the BUN is 25, the creatinine is 4. The random blood sugar was 111. Calcium is 8.7. LFTs are normal. Her albumin is 3.4. ASSESSMENT AND PLAN: 1. Currently, the patient is status post fall with fracture of the left ankle, being followed by Orthopedics. 2. She has chronic renal disease, on dialysis 4 times a week. 3. She has hypothyroid disease, on supplement therapy; insulin-dependent diabetes; history of non-ST myocardial infarction; history of arteriosclerotic heart disease; history of carotid disease; history of diverticulosis; history of diverticulitis; history of cholecystitis. Currently, she is completing her course of vancomycin for a history of Clostridium difficile. She is being followed by Renal and Orthopedics and continue current level of care. Monitor her labs and continue as per Nephrology. Shavonne Ascencio MD
[2017-05-27] MEDS: Levothyroxine 50 MCG TAB PO SCH (07:48)
[2017-05-27 08:43] LABS: HEPATITIS B SURFACE AG Negative (NEGATIVE)
[2017-05-27 08:48] LABS: HEPATITIS A IGM NEGATIVE (NEGATIVE); HEPATITIS B CORE AB NEGATIVE (NEGATIVE)
[2017-05-27 09:00] LABS: HEPATITIS C ANTIBODY NEGATIVE (NEGATIVE)
[2017-05-27] MEDS: Insulin Human NPH/Reg 70/30 Vial(3 ml) SC SCH ×2 (09:15→17:17)
[2017-05-27] MEDS: Oxycodone/Acetaminophen 5/325 mg Tab PO PRN (09:15)
[2017-05-27] MEDS: Pantoprazole 20 mg EC Tab PO SCH (09:16)
[2017-05-27] MEDS ORDERED: Magnesium Hydroxide Susp 30 ml UD PO ONE (09:56)
[2017-05-27] MEDS: Vancomycin 25 MG/ML PO SCH ×4 (10:04→21:18)
--- NOTE | 2017-05-27 10:39 | PN ---
DATE: SUBJECTIVE: The patient states that she is currently comfortable, lying supine in bed. She is receiving pain medications for her left ankle fracture. She continues to wear an immobilizer. She does complain that it is heavy to move around with the immobilizer. She will not be receiving a cast and she is not going to have surgery. The patient had an uneventful fourth dialysis yesterday with removal of 2.5 liters of fluid. MEDICATIONS: Medication list reviewed. The patient is currently on Colace, Imdur, Lipitor, Lopressor, Neurontin, Percocet p.r.n., PhosLo, Protonix, Synthroid, TriCor, Tylenol, oral vancomycin, and vitamin B6. OBJECTIVE VITAL SIGNS: Blood pressure 145/54, temperature 98, respiratory rate is 18 with a pulse of 69. HEENT: Exam shows her to be normocephalic, atraumatic. Conjunctivae remain pale. Sclerae are nonicteric. NECK: Supple. No neck vein distention. CHEST: Clear to auscultation and percussion. No rales, rhonchi or wheezing. CARDIOVASCULAR: Shows a normal S1, S2. No rubs or gallops. Positive MR/TR. ABDOMEN: Soft. Bowel sounds normal. Nontender, nondistended. No rebound or guarding. EXTREMITIES: Showed an immobilizer over her left lower extremity. She has a left upper extremity AV fistula. Positive thrill. Positive bruit. Right lower extremity shows no edema. LABORATORY DATA AND IMAGING: CBC from yesterday: White blood cell count 6.1, hemoglobin pre-dialysis 9.3 with a platelet count of 172,000. The patient is status post transfusion of one unit of packed red blood cells during the hospitalization. Chemistries: Sodium 138, potassium 4.1, chloride 95 with a CO2 of 31, BUN 25 with a creatinine of 4.0. Glucose is 111. Albumin level is stable at 3.4. Calcium was 8.7. Last phosphorus level was 4.3. ASSESSMENT 1. Status post fracture of the lateral malleolus of the anterior aspect of the distal tibia. Discussed with Orthopedics yesterday. No plans for surgical intervention. Because of the heaviness of a cast, no cast will be placed. The patient will be kept in an immobilizer. As per my discussion with Dr. Hardy, this fracture should heal without any issues. The patient remains on pain medicine and currently is in no pain. 2. History of end-stage renal disease. The patient will continue receiving dialysis 4 days a week, yesterday's dialysis removed 2.5 liters of fluid. She is scheduled for dialysis tomorrow. 3. History of anemia. The patient will continue receiving Aranesp and iron on dialysis. If necessary, she may be transfused. 4. History of coronary artery disease with paroxysmal atrial fibrillation, this is stable. 5. History of secondary hyperparathyroidism. The patient's calcium and phosphorus levels remain acceptable, on binder therapy and a renal diet. 6. History of hypothyroidism. The patient will continue thyroid replacement therapy. 7. History of Clostridium difficile colitis. The patient will continue oral vancomycin, dose discussed with Dr. Ascencio. 8. History of hypertension. Blood pressure is controlled on present blood pressure medications and cardiac medications. 9. Past history of diverticulitis. 10. History of wgi-ztfapls-hfmasrnys diabetes mellitus. The patient will continue to have blood sugars monitored on a regular basis. She had been using low-dose insulin in the outpatient setting. PLAN 1. Hemodialysis tomorrow as per routine. 2. Continue to be followed by Orthopedics. 3. Continue present cardiac and blood pressure medications. 4. Continue renal diet and binder therapy. 5. The patient will likely need physical therapy and perhaps, a short stay in a subacute rehab unit for her ankle fracture. Buck Yanes MD
--- NOTE | 2017-05-27 10:59 | PN ---
DATE: LOCATION: Room 361, bed 1. SUBJECTIVE: An 82-year-old female with an undisplaced fracture of left ankle - bimalleolar-type. She was fitted with a walking boot. She feels more comfortable with the walking boot on. I told her she does not have to wear it while in bed at night. But she still feels more comfortable with it on and more secure. So we will start getting her up out of bed and ambulate with a walker, partial bearing left leg. This is impossible to do non-weightbearing. We decided to manage to keep the boot off this to 6-8 weeks, but can remove it for skin hygiene and for sleeping. FINAL DIAGNOSIS: Stable bimalleolar fracture, left ankle, treatable with a removable walking boot for 6-8 weeks. Dion Hardy DO
--- NOTE | 2017-05-27 12:06 | PN ---
DATE: SUBJECTIVE: The patient had a comfortable night according to the nursing staff. OBJECTIVE: PHYSICAL EXAMINATION: VITAL SIGNS: Show a temperature of 98, blood pressure is 145/54, respiratory rate is 18, pulse rate is 69. NECK: Supple. LUNGS: Clear. HEART: In S1 S2 rhythm. ABDOMEN: Soft with positive bowel sounds. EXTREMITIES: Showed no evidence of edema. There is a fistula in her left upper arm. LABORATORY DATA: Shows her blood sugar this morning was fingerstick 140. ASSESSMENT AND PLAN: Currently the patient is on dialysis 4 times a week for chronic renal disease. She also has a history of chronic anemia; Clostridium difficile infection, on vancomycin; remote non-ST myocardial infarction; hyperlipidemia; poy-rxoydql-lxeohxcks diabetes; hypothyroid disease; arteriosclerotic heart disease; peripheral neuropathy; fracture of the left ankle and hypertension. Current medications consist of vitamin B6, vancomycin, Tylenol, TriCor, Synthroid, Protonix, PhosLo, Percocet p.r.n., Neurontin, Lopressor, Lipitor, Imdur, and Colace. The patient states that she is feeling constipated and I have discussed giving her laxative. She is on a stool softener at this time. She will continue current level of care receiving physical and occupational therapy and will require staying in a subacute rehab. She will be followed by Orthopedics as well as by Renal. Shavonne Ascencio MD
--- NOTE | 2017-05-27 21:52 | CON ---
DATE: CHIEF COMPLAINT: Weakness times several days. HISTORY OF PRESENT ILLNESS: This is an 82-year-old female, who has end-stage renal disease, on hemodialysis, coronary artery disease, congestive heart failure, chronic obstructive lung disease, diabetes mellitus, hypertension, who recently was hospitalized, found to have acute diverticulitis and also cholecystitis, complicated with non-ST elevation myocardial infarction. The patient also was discharged with diagnosis of pseudomembranous colitis, was on p.o. vancomycin, and has now returned to hospital with weakness and left leg injury, and Infectious Disease consultation requested regarding continuation of the p.o. vancomycin. The patient says no fevers and chills. She states she has no diarrhea at this point, and is complaining of discomfort over the left ankle. PAST MEDICAL HISTORY: Significant for end-stage renal disease, on hemodialysis; coronary artery disease, congestive heart failure, chronic obstructive lung disease, diabetes mellitus, hypertension, pseudomembranous colitis, acute cholecystitis and diverticulitis, and a recent non-ST elevation myocardial infarction. PAST SURGICAL HISTORY: Appendectomy and cardiac catheterization with a PCI. ALLERGIES: CEFTRIAXONE. MEDICATIONS AT HOME: The patient's medications are reviewed, include p.o. vancomycin. PHYSICAL EXAMINATION: GENERAL: The patient is in bed, in no acute distress. VITAL SIGNS: Temperature of 98; pulse was 89, it was up to 103 and 109; respiratory rate of 18, was up to 22; and the blood pressure is 150/50. HEENT: Unremarkable. NECK: Supple. LUNGS: Have decreased breath sounds. HEART: Normal S1 and S2. ABDOMEN: Soft, nontender. No rebound or guarding. EXTREMITIES: Examination of the leg; left ankle and left foot with ecchymosis, and no evidence of an active infection. Dr. Hardy's consultation is reviewed. The emergency room charts are reviewed. The patient also had a CT scan of the lower extremities, which revealed fracture of the lateral malleolus and the anterior aspect of the distal tibia. LABORATORY DATA: Reveals the patient's white count is 6.1, hemoglobin of 9. Coagulation is noted, and chemistries reveals the creatinine is 4.0. Serology is reviewed. ASSESSMENT AND PLAN: This is an 82-year-old female with end-stage renal disease, on hemodialysis, coronary artery disease, congestive heart failure, diabetes mellitus, hypertension, had acute cholecystitis on last admission and acute diverticulitis, grk-UV-[id number] myocardial infarction, now admitted with a leg injury with systemic inflammatory response syndrome, with a left leg trauma with ecchymosis, with a fracture of the lateral malleolus and distal tibia, also the patient has pseudomembranous colitis. We will treat the patient with p.o. vancomycin. The leg does not need antibiotics at this point, it is just ecchymotic, and we will complete 14 to 21 days of p.o. vancomycin and follow closely with you. The patient is at risk for developing nosocomial infections. Jeromy Castellanos MD
[2017-05-28] MEDS: Levothyroxine 50 MCG TAB PO SCH (08:39)
[2017-05-28 08:40] VITALS: PULSE 89
[2017-05-28 08:45] VITALS: BP 122/50; RESP 18; TEMP 98.4; O2SAT 100
[2017-05-28] MEDS ORDERED: Insulin Human NPH/Reg 70/30 Vial(3 ml) SC SCH (10:00)
[2017-05-28] MEDS: Pantoprazole 20 mg EC Tab PO SCH (10:00)
[2017-05-28 10:53] LABS: BASO # 0.01 K/mm3 (0.0-2.0); BASO % 0.1 % (0.0-3.0); EOS # 0.1 (0.0-0.7); EOS % 0.9 % (1.5-5.0); GRAN # 5.64 (1.4-6.5); GRAN % 71.6 % (50.0-68.0); HEMOGLOBIN 9.5 g/dL (12.0-16.0); LYMPH # 1.8 (1.2-3.4); LYMPH % 22.8 % (22.0-35.0); MEAN CELL VOLUME 94.3 fl (80.0-105.0); MEAN CORPUSCULAR HEMOGLOBIN 30.1 pg (25.0-35.0); MEAN CORPUSCULAR HGB CONC 31.9 g/dl (31.0-37.0); MEAN PLATELET VOLUME 9.2 fl (7.0-11.0); MONO # 0.4 (0.1-0.6); MONO % 4.6 % (1.0-6.0); RBC 3.16 10^6/uL (3.5-6.1); RED CELL DISTRIBUTION WIDTH 16.7 % (11.5-14.5); WHITE BLOOD COUNT 7.9 10^3/ul (4.5-11.0)
[2017-05-28 11:13] LABS: ALB/GLOB RATIO 0.8 (1.1-1.8); ALBUMIN 3.6 g/dL (3.0-4.8); CALCIUM 8.3 mg/dL (8.4-10.5); MAGNESIUM 2.2 mg/dL (1.7-2.2)
--- NOTE | 2017-05-28 12:38 | PN ---
DATE: 05/28/2017 LOCATION: This is an 82-year-old female in room 361, bed 1. The patient was today with the walking boot for her left ankle fracture. She feels slightly better and told me she needs to do more walking to get better she can walk and put weight on it so that the fracture does not go out of place and she needed it for six weeks. She does appear to feel comfortable with the boot on as much as possible. As the fracture heals, she will use here musclles more and will take up to 6 weeks. Dion Hardy DO MTDD
[2017-05-28] MEDS: Vancomycin 25 MG/ML PO SCH (13:52)
--- NOTE | 2017-05-28 15:19 | PN ---
DATE: SUBJECTIVE: An 82-year-old female resting in bed this morning. Nursing staff relates that there were no particular problems during the night. Patient states that she did move her bowels. PHYSICAL EXAMINATION: VITAL SIGNS: Currently show a temp of 98.4, pulse of 89, blood pressure is 122/50, oxygen sat is % on room air with nasal oxygen at 2 L, respiratory rate is 18. NECK: Supple. LUNGS: Clear. HEART: S1, S2 rhythm. ABDOMEN: Soft, scaphoid. Positive bowel sounds. EXTREMITIES: Patient has a support boot on her left foot for a bimalleolar fracture of the left ankle, being followed by Orthopedics. LABORATORY DATA: WBC is 7.9, RBC is 3.16, hemoglobin is 9.5, hematocrit 29.8 and platelet count is 165. Chemistry shows sodium 134, potassium 5.2, chloride 93, BUN is 67, creatinine is 7.9, random blood sugar is 169, calcium is 8.3, phosphorus is 5.9, magnesium is 3.2 and AST is 54. ASSESSMENT AND PLAN: Patient is currently receiving antibiotic therapy for C. difficile infection, being followed by Infectious Disease. She is also receiving dialysis 4 times a week for chronic renal disease, Synthroid supplementation for hypothyroid disease and insulin therapy for her insulin-dependent diabetes. She has a peripheral neuropathy, on Neurontin, arteriosclerotic heart disease, hyperlipidemia, non-ST myocardial infarction in the past, carotid disease. We will continue current level of care,monitor the patient closely. coordinator of genetic services have been asked to interact with the patient and the family regarding the patient's transition to subacute rehab and should be able to support her need for dialysis 4 times a week. Shavonne Ascencio MD
--- NOTE | 2017-05-28 16:39 | CP.PCM.PN ---
Subjective - Date & Time of Evaluation Date of Evaluation: 05/28/17 Time of Evaluation: 09:35 - Subjective Subjective: Has some weakness, no fevers, not in distress. No diarrhea overnight. Objective - Vital Signs/Intake and Output Vital Signs (last 24 hours): Temp Pulse Resp BP Pulse Ox 98.4 F 89 18 122/50 L 100 05/28/17 08:44 05/28/17 08:44 05/28/17 08:44 05/28/17 08:44 05/28/17 08:44 Intake and Output: 05/28/17 05/28/17 06:59 18:59 Intake Total 240 Balance 240 - Medications Medications: Current Medications Acetaminophen (Tylenol 325mg Tab) 650 mg PO Q4H PRN PRN Reason: Pain, moderate (4-7) Last Admin: 05/24/17 21:55 Dose: 650 mg Atorvastatin Calcium (Lipitor) 20 mg PO DIN [facility] Last Admin: 05/27/17 17:17 Dose: 20 mg Calcium Acetate (Phoslo) 667 mg PO TID [facility] Last Admin: 05/27/17 17:17 Dose: 667 mg Docusate Sodium (Colace) 100 mg PO DAILY [facility] Last Admin: 05/27/17 09:15 Dose: 100 mg Fenofibrate (Tricor) 145 mg PO DAILY [facility] Last Admin: 05/27/17 09:16 Dose: 145 mg Gabapentin (Neurontin) 100 mg PO HS [facility] PRN Reason: Protocol Last Admin: 05/27/17 21:17 Dose: 100 mg Isosorbide Mononitrate (Imdur Er) 30 mg PO 0600 [facility] Last Admin: 05/28/17 05:26 Dose: Not Given Levothyroxine Sodium (Synthroid) 50 mcg PO ACB [facility] Last Admin: 05/28/17 08:39 Dose: 50 mcg Metoprolol Tartrate (Lopressor) 25 mg PO 0800,1800 [facility] Last Admin: 05/28/17 08:39 Dose: 25 mg Pantoprazole Sodium (Protonix Ec Tab) 20 mg PO DAILY [facility] Last Admin: 05/27/17 09:16 Dose: 20 mg Pyridoxine HCl (Vitamin B6 50 Mg Tab) 100 mg PO DAILY [facility] Last Admin: 05/27/17 09:16 Dose: 100 mg Vancomycin HCl (Vancocin 25 Mg/Ml (Oral Use)) 125 mg PO QID [facility] PRN Reason: Protocol Last Admin: 05/27/17 21:18 Dose: 125 mg - Labs Labs: 05/26/17 06:45 05/26/17 06:45 PT 12.2 SECONDS (9.4-12.5) 05/23/17 19:20 INR 1.07 (0.93-1.08) 05/23/17 19:20 APTT 29.0 Seconds (25.1-36.5) 05/23/17 19:20 - Constitutional Appears: Chronically Ill - Head Exam Head Exam: NORMAL INSPECTION - ENT Exam ENT Exam: Mucous Membranes Moist - Neck Exam Neck Exam: absent: Meningismus - Respiratory Exam Respiratory Exam: Decreased Breath Sounds - Cardiovascular Exam Cardiovascular Exam: +S1, +S2 - GI/Abdominal Exam GI & Abdominal Exam: Soft. absent: Tenderness Assessment and Plan - Assessment and Plan (Free Text) Plan: Assessment C. diff. associated diarrhea S/P severe sepsis with acute sigmoid diverticulitis and acute cholecystitis history of acute NSTEMI history of sepsis due to acute descending colon diverticulitis and bilateral lobe healthcare-associated pneumonia history of healthcare-associated pneumonia (right upper lobe, bilateral lower lobes) HTN DM CAD with chronic CHF ESRD on HD Plan continue PO Vancomycin (day 13) to complete 14 days of therapy (started from last admission)
--- NOTE | 2017-05-28 17:53 | PN ---
DATE: 05/28/2017 SUBJECTIVE: Patient is seen, sitting in bed. She is awake. She is alert. She complains of severe pain in her left foot. PHYSICAL EXAMINATION: GENERAL: An elderly lady, sitting in bed. VITAL SIGNS: Blood pressure 122/50, heart rate 89, respiratory rate 18, temperature 98.4. HEENT: Normocephalic, atraumatic, positive pallor. NECK: Supple, no JVD. LUNGS: Bilateral equal air entry, no rales. CARDIAC: S1 and S2, regular rate and rhythm, no murmur, no rub. ABDOMEN: Soft, nondistended, nontender, bowel sounds present. EXTREMITIES: Positive boot on the left foot. Right lower extremity, no edema. LABORATORY DATA: WBC 7.9, hemoglobin 9.5, hematocrit 29.8, platelets 165. Sodium 134, potassium 5.2, chloride 93, CO2 of 23, BUN 67, creatinine 7.9, glucose 169, calcium 8.3, phosphorus 5.9, magnesium 2.2. MEDICATIONS: List reviewed. ASSESSMENT: 1. Fracture, left ankle. 2. [id number] diabetes mellitus. 3. Hypertension. 4. End-stage renal disease. 5. Anemia. PLAN: 1. Stable dialysis. 2. Pain management. 3. Monitor fingersticks. 4. No objection till transfer to rehab. Barbi Linares MD
== END 2017-05-28 17:00 | DRG 562 ==
LOC: ED 17:30 → ERH 21:47 → 3RNO 05-24 01:23
PROVIDERS: ADMIT Internal Medicine; ATTEND Internal Medicine
PROC: 30233N1 Transfusion of Nonautologous Red Blood Cells into Peripheral Vein, Percutaneous Approach (ICD-10-PCS; principal; 2017-05-25)
PROC: 5A1D70Z Performance of Urinary Filtration, Intermittent, Less than 6 Hours Per Day (ICD-10-PCS; 2017-05-25)
PROC: 5A1D70Z Performance of Urinary Filtration, Intermittent, Less than 6 Hours Per Day (ICD-10-PCS; 2017-05-28)
DX: S82.62XA Displaced fracture of lateral malleolus of left fibula, initial encounter for closed fracture (principal); N18.6 End stage renal disease; I13.2 Hypertensive heart and chronic kidney disease with heart failure and with stage 5 chronic kidney disease, or end stage renal disease; A04.72 Enterocolitis due to Clostridium difficile, not specified as recurrent; E11.22 Type 2 diabetes mellitus with diabetic chronic kidney disease; E11.42 Type 2 diabetes mellitus with diabetic polyneuropathy; I48.0 Paroxysmal atrial fibrillation; K80.10 Calculus of gallbladder with chronic cholecystitis without obstruction; N25.81 Secondary hyperparathyroidism of renal origin; W18.39XA Other fall on same level, initial encounter; I50.9 Heart failure, unspecified; E03.9 Hypothyroidism, unspecified; E78.00 Pure hypercholesterolemia, unspecified; Z99.2 Dependence on renal dialysis; I25.10 Atherosclerotic heart disease of native coronary artery without angina pectoris; D63.1 Anemia in chronic kidney disease; J44.9 Chronic obstructive pulmonary disease, unspecified; E78.5 Hyperlipidemia, unspecified; K21.9 Gastro-esophageal reflux disease without esophagitis; K59.00 Constipation, unspecified; S80.12XA Contusion of left lower leg, initial encounter; Z79.4 Long term (current) use of insulin; I25.2 Old myocardial infarction; Y92.008 Other place in unspecified non-institutional (private) residence as the place of occurrence of the external cause; Z96.642 Presence of left artificial hip joint; Z87.01 Personal history of pneumonia (recurrent)

== ENCOUNTER 2017-06-24 12:44 | Inpatient (IN) | payer MEDICARE, OTHER ==
[2017-06-24 12:59] VITALS: BMI 21.0
[2017-06-24 13:37] LABS: BASO # 0.01 K/mm3 (0.0-2.0); BASO % 0.1 % (0.0-3.0); EOS % 0.1 % (1.5-5.0); GRAN # 18.34 (1.4-6.5); GRAN % 91.8 % (50.0-68.0); HEMOGLOBIN 10.9 g/dL (12.0-16.0); LYMPH # 0.7 (1.2-3.4); LYMPH % 3.4 % (22.0-35.0); MEAN CELL VOLUME 99.4 fl (80.0-105.0); MEAN CORPUSCULAR HEMOGLOBIN 31.1 pg (25.0-35.0); MEAN CORPUSCULAR HGB CONC 31.2 g/dl (31.0-37.0); MEAN PLATELET VOLUME 9.1 fl (7.0-11.0); MONO # 0.9 (0.1-0.6); MONO % 4.6 % (1.0-6.0); PLATELET COUNT 172 10^3/uL (120.0-450.0); RBC 3.51 10^6/uL (3.5-6.1); RED CELL DISTRIBUTION WIDTH 17.5 % (11.5-14.5); WHITE BLOOD COUNT 19.9 10^3/ul (4.5-11.0)
[2017-06-24 13:42] LABS: VENOUS BLOOD GAS PO2 45 mm/Hg (30-55)
[2017-06-24 13:50] LABS: INR 1.22 (0.93-1.08); PARTIAL THROMBOPLASTIN TIME 28.9 Seconds (25.1-36.5)
[2017-06-24] MEDS ORDERED: Meropenem 500 MG in Sodium Chloride 0.9% 50 ML IVPB STA (13:51)
[2017-06-24 13:54] LABS: LYMPHOCYTE 2 % (22.0-35.0); MONOCYTE 4 % (1.0-6.0); NEUTROPHIL 94 % (50.0-70.0); PLATELET ESTIMATE NORMAL (NORMAL)
[2017-06-24 13:56] LABS: ALB/GLOB RATIO 0.8 (1.1-1.8); ALBUMIN 3.8 g/dL (3.0-4.8)
[2017-06-24 14:27] LABS: TROPONIN I 0.59 ng/mL
--- NOTE | 2017-06-24 14:54 | RAD ---
HISTORY: Shortness of breath COMPARISON: 04/30/2017 FINDINGS: LUNGS: New left upper lobe infiltrate PLEURA: No significant pleural effusion identified, no pneumothorax apparent. CARDIOVASCULAR: No radiographic findings to suggest acute or significant cardiovascular disease. OSSEOUS STRUCTURES: No significant abnormalities. VISUALIZED UPPER ABDOMEN: Normal. OTHER FINDINGS: None. IMPRESSION: New left upper lobe infiltrate likely acute pneumonia.
--- NOTE | 2017-06-24 15:06 | ED PDOC ---
Arrival/HPI - General Chief Complaint: Fever Time Seen by Provider: 06/24/17 12:56 Historian: Patient - History of Present Illness Narrative History of Present Illness (Text): 06/24/17 14:57 Patient is an 82 yo female presents from long-term reportedly with increased cough and episodes of blood tinged sputum noted over past 2-3 days. Patient reportedly recently started on Zithromax. Patient states over the past day she has developed generalized abdominal pain with nausea and vomiting and "spitting up". She denies chest pain or shortness of breath. Denies diarrhea. History supplemented by DR. Mohit Huston, who provides further history regarding recent long-term care. History supplemented by long-term notes. Past Medical History - Infectious Disease Hx of Infectious Diseases: C.diff - Tetanus Immunization Tetanus Immunization: Unknown - Reproductive Menopause: Yes - Cardiac Hx Cardiac Disorders: Yes Hx Congestive Heart Failure: Yes - Pulmonary Hx Respiratory Disorders: Yes Hx Chronic Obstructive Pulmonary Disease (COPD): Yes Hx Pneumonia: Yes - Neurological Hx Neurological Disorder: Yes (numbnes/tingling left leg and ft) Hx Dizziness: Yes - HEENT Hx HEENT Disorder: Yes Hx Cataracts: Yes (b/l sx) - Renal Hx Renal Disorder: Yes Hx Dialysis: Yes ([facility] m w f sat) Date of Last Dialysis Treatment: 06/23/17 Hx Renal Failure: Yes Other/Comment: hemodialysis 4 x a wk M,W,F,S - Endocrine/Metabolic Hx Endocrine Disorders: Yes Hx Diabetes Mellitus Type 2: Yes - Hematological/Oncological Hx Blood Disorders: Yes Hx Anemia: Yes - Integumentary Hx Dermatological Disorder: No Other/Comment: L arm shunt fas dsg over iy, excellent bruit at site - Musculoskeletal/Rheumatological Hx Falls: Yes (fell & hurt L ankle) Other/Comment: left leg fracture in splint - Gastrointestinal Hx Gastrointestinal Disorders: Yes (hx rectal bleeding) Hx Diverticulitis: Yes Hx Gastroesophageal Reflux: Yes - Genitourinary/Gynecological Hx Genitourinary Disorders: Yes - Psychiatric Hx Psychophysiologic Disorder: Yes Hx Anxiety: Yes Hx Depression: Yes Hx Substance Use: No - Surgical History Hx Cardiac Catheterization: Yes Hx Hysterectomy: Yes Hx Orthopedic Surgery: Yes (left hip replacement) Other/Comment: desi av shunt - Anesthesia Hx Anesthesia: Yes Hx Anesthesia Reactions: No Hx Malignant Hyperthermia: No - Suicidal Assessment Feels Threatened In Home Enviroment: No Family/Social History Family/Social History: Unknown Family HX Smoking Status: Never Smoked Hx Alcohol Use: No Hx Substance Use: No Hx Substance Use Treatment: No Allergies/Home Meds Allergies/Adverse Reactions: Allergies ceftriaxone Allergy (Verified 02/04/17 20:41) ITCHING Home Medications: Home Meds Medication Instructions Recorded Confirmed Fenofibrate [Tricor] 145 mg PO DAILY 04/30/17 06/24/17 Pyridoxine [Vitamin B6] 100 mg PO DAILY 04/30/17 06/24/17 Acetaminophen [Tylenol (Renal)] 650 mg PO PRN PRN 06/24/17 06/24/17 Amino Acids/Protein Hydrolys 30 ml PO DAILY 06/24/17 06/24/17 [Prosource No Carb Liquid Pkt] Azithromycin [Zithromax] 250 mg PO DAILY 06/24/17 06/24/17 Bacitracin OINT 0 applic TOP DAILY 06/24/17 06/24/17 Calcium Acetate [Phoslo] 667 mg PO TID 06/24/17 06/24/17 Docusate [Colace] 100 mg PO DAILY 06/24/17 06/24/17 Enoxaparin [Lovenox] 40 mg SQ DAILY 06/24/17 06/24/17 Epoetin Zack [Procrit] 10,000 unit SQ QWK 06/24/17 06/24/17 Insulin Human Regular [HumuLIN R] 0 units SC 06/24/17 Isosorbide Mononitrate [Imdur] 30 mg PO DAILY 06/24/17 06/24/17 Promethazine DM [Phenergan DM 5 ml PO PRN PRN 06/24/17 06/24/17 Syrup] traMADol [Ultram] 50 mg PO PRN PRN 06/24/17 06/24/17 Review of Systems - Review of Systems Constitutional: Fevers Respiratory: SOB, Cough, Sputum Cardiovascular: PAUL. absent: Chest Pain, Palpitations Gastrointestinal: Abdominal Pain, Nausea, Vomiting Genitourinary Female: Urine Output Changes Musculoskeletal: Other (leg pain). absent: Back Pain Skin: absent: Rash Neurological: Dizziness. absent: Headache, Focal Weakness Hemo/Lymphatic: absent: Easy Bleeding Physical Exam Vital Signs Reviewed: Yes Vital Signs Temp Pulse Resp BP Pulse Ox 06/24/17 16:20 101 F H 79 18 102/44 L 100 06/24/17 15:58 82 19 101/43 L 96 06/24/17 14:25 102 H 20 103/72 96 06/24/17 13:45 102.2 F H 06/24/17 12:58 98.0 F 93 H 19 129/55 L 99 Temperature: Febrile Respiratory Rate: Tachypneic Appearance: Positive for: Ill-Appearing Pain Distress: Mild Mental Status: Positive for: Alert and Oriented X 3 - Systems Exam Head: Present: Atraumatic Mouth: Present: Dry Pharnyx: No: ERYTHEMA, EXUDATE, Strider Respiratory/Chest: Present: Rhonchi, Tachypneic Cardiovascular: Present: Murmurs, Irregular Rhythm, Tachycardic Abdomen: Present: Tenderness, Distention. No: Peritoneal Signs, Rebound, Guarding Rectal: No: Gross Blood Back: Present: Paraspinal Tenderness Upper Extremity: No: Edema Lower Extremity: Present: Other (orthopedic boot to lower extremity, sensation grossly intact, motor grossly intact) Neurological: Present: Motor Func Grossly Intact Psychiatric: Present: Alert, Normal Insight Medical Decision Making ED Course and Treatment: 06/24/17 17:24 Patient is an 82 yo female presents with fever, increased cough and congestion as well as abdominal pain and vomiting. On exam, she is on nasal cannula, with exertion she appears tachypneic, although at rest oxygen saturations 96% with some rhonchi noted, but no accessory muscle usage. CXR suggestive of infiltrate. Lactate is elevated and rectal temp is elevated. Tylenol administered and patient initiated on iv antibiotics, respecting her allergy to Ceftriaxone. Given recent admission consultation obtained with LISA Alarcon who has evaluated patient. On re-examination, patient appears comfortable with improvement in nausea and abdominal pain. CT suggestive of diverticulitis although patient with no free air or obstruction. Patient's history reviewed with PMD she has significant history of cardiac disease as well as pulmonary edema reportedly in past, thus hydration to be determined with close monitoring in setting of likely sepsis. Troponin is elevated. At this time she has no chest pain or pressure. Elevation may represent nonstemi, ischemia, although may represent underlying renal disease. Head [employer] consult requested given multiple comorbities. Grandson and patient updated with treatment plan. Patient accepted to ICU. - Critical Care Critical Care Minutes: 30 minutes - Lab Interpretations Lab Results: 06/24/17 13:30 06/24/17 13:30 Lab Results 06/24/17 13:50: Phosphorus 2.3 L, Magnesium 1.9 06/24/17 13:30: pO2 45, VBG pH 7.40, VBG pCO2 48.0, VBG HCO3 29.7 H, VBG Total CO2 31.2 H, VBG O2 Sat (Calc) 84.2 H, VBG Base Excess 4.0 H, VBG Potassium 3.7, Sodium 136.0, Chloride 98.0, Glucose 187 H, Lactate 3.6 H, FiO2 21.0, Venous Blood Potassium 3.7 06/24/17 13:30: Sodium 140, Chloride 96 L, Potassium 3.7, Carbon Dioxide 26, Anion Gap 22 H, BUN 32 H, Creatinine 4.0 H, Est GFR ( Amer) 13, Est GFR ( Non-Af Amer) 11, Random Glucose 183 H, Calcium 9.0, Total Bilirubin 1.1, AST 52 H, ALT 21, Alkaline Phosphatase 81, Lactate Dehydrogenase 412, Total Creatine Kinase 49, Troponin I 0.59 H* D, NT-Pro-B Natriuret Pep 623010 H, Total Protein 8.6 H, Albumin 3.8, Globulin 4.9, Albumin/Globulin Ratio 0.8 L 06/24/17 13:30: PT 14.0 H, INR 1.22 H, APTT 28.9 06/24/17 13:30: WBC 19.9 H D, RBC 3.51, Hgb 10.9 L, Hct 34.9 L, MCV 99.4 D, MCH 31.1, MCHC 31.2, RDW 17.5 H, Plt Count 172, MPV 9.1, Gran % 91.8 H, Lymph % (Auto) 3.4 L, Pope % (Auto) 4.6, Eos % (Auto) 0.1 L, Baso % (Auto) 0.1, Gran # 18.34 H, Lymph # (Auto) 0.7 L, Pope # (Auto) 0.9 H, Eos # (Auto) 0.0, Baso # ( Auto) 0.01, Neutrophils % (Manual) 94 H, Lymphocytes % (Manual) 2 L, Monocytes % (Manual) 4, Platelet Evaluation Normal - RAD Interpretation Radiology Orders: 06/24/17 13:06 ABD & PELVIS W/O PO OR IV CONT [CT] Stat 06/24/17 13:25 CHEST PORTABLE [RAD] Stat - EKG Interpretation EKG Interpretation (Text): EKG at 11:56 normal sinus rhythm rate of 96 with marked sinus arrhythmi, marked st abnormality inferior and lateral leads Interpreted by ED Physician: Yes Type: 12 lead EKG - Medication Orders Current Medication Orders: Acetaminophen (Tylenol 325 Mg Supp) 975 mg DC ONCE PRN PRN Reason: Fever >100.4 F Last Admin: 06/24/17 14:07 Dose: 975 mg MAR Pain/Vitals Document 06/24/17 14:07 EQ (Rec: 06/24/17 14:06 EQ [id number]) Pain Reassessment Is This A Pain ReAssessment? No Sleep Is patient sleeping during reassessment? No Presence of Pain Presence of Pain Yes Pain Scale Used Pain Scale Used Numeric Discontinued Medications Aspirin (Aspirin Supp) 300 mg RC STAT STA Stop: 06/24/17 14:48 Last Admin: 06/24/17 15:59 Dose: 300 mg Famotidine (Pepcid) 20 mg IVP STAT STA Stop: 06/24/17 13:14 Last Admin: 06/24/17 13:39 Dose: 20 mg IVP Administration Document 06/24/17 13:39 EQ (Rec: 06/24/17 13:39 EQ [id number]) Charges for Administration # of IVP Administrations 1 Meropenem 500 mg/ Sodium (Chloride) 50 mls @ 100 mls/hr IVPB STAT STA PRN Reason: Protocol Stop: 06/24/17 14:20 Last Admin: 06/24/17 14:08 Dose: 100 mls/hr eMAR Start Stop Document 06/24/17 14:08 EQ (Rec: 06/24/17 14:08 EQ [id number]) Intravenous Solution Start Date 06/24/17 Start Time 14:08 Metronidazole (Flagyl) 500 mg in 100 mls @ 100 mls/hr IVPB STAT STA PRN Reason: Protocol Stop: 06/24/17 16:51 Last Admin: 06/24/17 16:52 Dose: 100 mls/hr eMAR Start Stop Document 06/24/17 16:52 EQ (Rec: 06/24/17 16:52 EQ [id number]) Intravenous Solution Start Date 06/24/17 Start Time 16:52 Ondansetron HCl (Zofran Inj) 4 mg IVP ONCE ONE Stop: 06/24/17 13:14 Last Admin: 06/24/17 13:38 Dose: 4 mg IVP Administration Document 06/24/17 13:38 EQ (Rec: 06/24/17 13:39 EQ [id number]) Charges for Administration # of IVP Administrations 1 Disposition/Present on Arrival - Present on Arrival Any Indicators Present on Arrival: No History of DVT/PE: No History of Uncontrolled Diabetes: No Urinary Catheter: No History of Decub. Ulcer: No History Surgical Site Infection Following: Orthopedic Procedures - Disposition Have Diagnosis and Disposition been Completed?: Yes Diagnosis: Diverticulitis, Pneumonia, ESRD (end stage renal disease) on dialysis, Elevated troponin, Sepsis Disposition: HOSPITALIZED Disposition Time: 14:30 Patient Plan: Admission, ICU Condition: CRITICAL
--- NOTE | 2017-06-24 15:39 | CT ---
PROCEDURE: CT Abdomen and Pelvis without intravenous contrast HISTORY: hx of diverticulitis, increased pain COMPARISON: 04/30/2017 CT abdomen and pelvis. 05/01/2017 abdominal ultrasound TECHNIQUE: Unenhanced study. Neither oral nor intravenous contrast administered. Radiation dose: Total exam DLP = 758.82 mGy-cm. This CT exam was performed using one or more of the following dose reduction techniques: Automated exposure control, adjustment of the mA and/or kV according to patient size, and/or use of iterative reconstruction technique. FINDINGS: LOWER THORAX: Trace bilateral pleural effusions. LIVER: Unremarkable. No gross lesion or ductal dilatation. GALLBLADDER AND BILE DUCTS: Distended gallbladder, gallstones. PANCREAS: Unremarkable. No gross lesion or ductal dilatation. SPLEEN: Unremarkable. ADRENALS: Unremarkable. No mass. KIDNEYS AND URETERS: Atrophic kidneys bilaterally, similar findings identified on prior CT and confirmed on ultrasound. VASCULATURE: Unremarkable. No aortic aneurysm. BOWEL: Segmental, acute diverticulitis limited to the distal descending colon and adjacent sigmoid Extensive diverticulitis including right-sided diverticular disease again identified. Fecal impaction, constipation. APPENDIX: Unremarkable. Normal appendix. PERITONEUM: Unremarkable. No free fluid. No free air. LYMPH NODES: Unremarkable. No enlarged lymph nodes. BLADDER: Unremarkable. REPRODUCTIVE: Unremarkable. BONES: No acute fracture. OTHER FINDINGS: None. IMPRESSION: Focal diverticulitis limited to the distal descending colon and adjacent sigmoid. No evidence of loculated air, free air or drainable collection. Cholelithiasis without CT evidence of acute cholecystitis.
[2017-06-24] MEDS ORDERED: metroNIDAZOLE IV 500 mg/100 ml 500 MG/100 ML BAG IVPB STA (15:52)
[2017-06-24 17:33] LABS: VENOUS BLOOD GAS BASE EXCESS 3.2 mmol/L (0.0-2.0); VENOUS BLOOD GAS PO2 39 mm/Hg (30-55); VENOUS BLOOD PH 7.41 (7.32-7.43)
[2017-06-24] MEDS ORDERED: Dextrose 5%/0.45% NS 1,000 ML IV SCH (18:15)
[2017-06-24] MEDS: Albuterol-Ipratrop 3 mg / 0.5 (3 ml) UD IH SCH (19:24)
--- NOTE | 2017-06-24 21:20 | PCM.SEPTIC ---
Sepsis Progress Note - Reassessment Type Date of Evaluation: 06/24/17 Time of Evaluation: 08:05 Reassessment Type: Non-invasive reassessment - Non Invasive Reassessment Were the most recent vital sign reviewed: Yes Vital Sign (Latest): Temp Pulse Resp BP Pulse Ox 98.9 F 95 H 18 100/34 L 96 06/24/17 20:54 06/24/17 18:00 06/24/17 20:54 06/24/17 18:00 06/24/17 18:00 Cardiovascular: Yes: Regular Rate, Rhythm. No: Edema, Gallop, JVD, Murmur, Bradycardia, Tachycardia, Friction Rub Respiratory: Yes: Normal Breath Sounds. No: Crackles, Rales, Rhonchi, Stridor, Wheezing, Respiratory Distress Capillary Refill: Normal (Less than 2 sec) Pulses: Normal Radial, Normal Dorsalis Pedis, Normal Posterior Tibialis Skin: Warm, Dry - Invasive Reassessment (complete 2 of 4) Was a Central Venous Pressure Measurement obtained within 6 Hours after the presentation of septic shock: No Was a central venous oxygen measurement obtained within 6 hours after the presentation of septic shock: No Was a bedside cardiovascular ultrasound performed within 6 hours after the presentation of septic shock: No Was a passive leg raise performed or was a fluid challenge performed within 6 hrs of the initial fluid bolus: No Fluid Challenge performed: No
[2017-06-24] MEDS: Insulin Reg-LOW-Coverage SC SCH (21:57)
[2017-06-24] MEDS ORDERED: Meropenem 500 MG in Sodium Chloride 0.9% 50 ML IVPB SCH (22:00)
--- NOTE | 2017-06-24 22:53 | CARD ---
APPROVED REPORT EKG Measurement Heart [id number] <Conclusion> Sinus rhythm with marked sinus arrhythmia, possible Mobitz I second degree AV Block Septal infarct, age undetermined Marked ST abnormality, possible inferior subendocardial injury Abnormal ECG
--- NOTE | 2017-06-24 23:36 | CON ---
DATE: 06/24/2017 RADAR SYSTEMS ENGINEER CONSULTATION REQUESTING PHYSICIAN: Shavonne Ascencio MD. CHIEF COMPLAINT: The patient presented with fever and abdominal pain with some cough and blood-tinged sputum. HISTORY OF PRESENT ILLNESS: Ms. Uriarte is an 82-year-old female that lives at a residential that reportedly had increased cough and episodes of some blood-tinged sputum over the last 2 to 3 days. The patient has been on antibiotics as per the PMD. She also developed some abdominal pain and some nauseousness and vomiting. The patient presented to the emergency room, noted to have fever and cough with congestion, abdominal pain and chest x-ray revealed that there is a left upper lobe pneumonia. The patient also had increased white count, increased lactate and is noted to be a hemodialysis patient with end-stage renal disease. Also, it was noted that she had increased troponins and an abnormal EKG. At this time, she is admitted to the Intensive Care Unit, comfortable, hemodynamically stable and oxygen saturation 99%, but does have a fever and will be given Tylenol. PAST MEDICAL HISTORY: As above, but note that she does have a history of COPD, diabetes, anemia and she has a left leg fracture, which is in a boot. She has a history of cholelithiasis as well as diverticulitis. SOCIAL HISTORY: Patient has no significant history of smoking, no EtOH abuse, no drug abuse. ALLERGIES: SHE HAS ALLERGIES FOR CEFTRIAXONE. MEDICATIONS: Her medications could be evaluated as per the nurse's intake form. FAMILY HISTORY: Noncontributory. REVIEW OF SYSTEMS: CONSTITUTIONAL: Patient presented with fever. HEENT: Within normal limits. CARDIOVASCULAR: Does have some shortness of breath with exertion. RESPIRATORY: Has shortness of breath; cough and sputum, blood-tinged at times. GASTROINTESTINAL: Has abdominal pain. She has some nauseousness and vomiting. : All negative. MUSCULOSKELETAL: All negative. NEURO AND PSYCHIATRIC: All negative. FRETTED INSTRUMENT MAKER HAND: All negative. IMMUNOLOGIC: All negative. ENDOCRINE: All negative. INTEGRITY: All negative. PHYSICAL EXAMINATION: VITAL SIGNS: Note that her temperature is 101, pulse is 79, respirations are18 and BP is 102/44. SKIN: Warm and dry. HEENT: Head, atraumatic and normocephalic. Eyes, reactive to light. Ear, nose and throat seemed to be within normal limits. NECK: Supple. No JVD. No thyroid enlargement, no lymph nodes. HEART: Has regular rate and rhythm. Normal S1, S2. LUNGS: Reveal bilateral rhonchi, more on the left than the right. ABDOMEN: Soft. Decreased bowel sounds. Tender to palpation just below the epigastric area. GENITALIA AND RECTAL: Deferred. MUSCULOSKELETAL: No joint deformities. EXTREMITIES: Reveal trace lower extremity edema. NEUROLOGIC: The patient seems to be grossly intact. LABORATORY DATA: As far as her laboratories, her white count is 19.9, hemoglobin is 10.9, hematocrit 34.9 with platelets of 172,000. Her sodium is 140, potassium is 3.7, chloride 96, CO2 of 26, BUN of 32, creatinine of 4.0 and a glucose of 183. As far as the patient's chest x-ray, it reveals new left upper lobe infiltrate likely acute pneumonia. CT scan of the abdomen reveals that there is diverticulitis, no free air and cholelithiasis. IMPRESSION: As far as my impression, patient has consults with ID, Ortho, GI, Cardiology and Renal. We will continue with IV fluids very gently and give her bronchodilators of DuoNeb. Patient has gotten doses of Tylenol for fever and she is on cough medications as well as Pepcid. Patient is being given meropenem as well as metronidazole. We will continue to follow closely and treat aggressively along with the other consultants and the primary care doctor. Oliver Turpin MD
--- NOTE | 2017-06-25 02:04 | CON ---
DATE: 06/24/2017 LOCATION: Patient is seen in the emergency room. CHIEF COMPLAINT: Weakness since several days. HISTORY OF PRESENT ILLNESS: This is an 82-year-old female with past medical history of end-stage renal disease on hemodialysis, coronary artery disease, congestive heart failure, chronic obstructive lung disease, diabetes mellitus, hypertension, recent hospitalization, did have acute diverticulitis and cholecystitis, complicated by [id number] SC and now presented with weakness and nausea. Patient was given azithromycin in the group home for pneumonia and patient did not improve and did have a chest x-ray as outpatient, which showed an infiltrate and had a chest x-ray here, which also showed a pneumonia, was found to have a white count of 19,000. Infectious Disease consultation requested. PAST MEDICAL HISTORY: Significant for end-stage renal disease on hemodialysis, coronary artery disease, congestive heart failure, chronic obstructive lung disease, diabetes, hypertension, recent hospitalization, diverticulitis and cholecystitis, and non-ST elevation myocardial infarction. PAST SURGICAL HISTORY: Significant for appendectomy and orthopedic surgery with left hip. Cardiac catheterization with stent placement. ALLERGIC: THE PATIENT IS ALLERGIC TO CEFTRIAXONE. MEDICATIONS: At the group home are reviewed and include tramadol and Lovenox and Synthroid and Lipitor. PHYSICAL EXAMINATION: GENERAL: Patient is in bed, appearing older than her stated age, chronically ill, debilitated. VITAL SIGNS: Temperature of 98, heart rate of 93, blood pressure is 129/50, respiratory rate of 19. HEENT: Unremarkable. NECK: Supple. LUNGS: Have decreased breath sounds. HEART: Normal S1, S2. ABDOMEN: Soft, nontender. No rebound or guarding. LABORATORY EXAMINATION: Reveals a white count of 19,000, hemoglobin of 10, platelets of 172. Chemistries are BUN of 32, creatinine of 4, troponin is elevated, and BNP is also high at 171,000. chest x-ray appears to have a positive infiltrate. ASSESSMENT AND PLAN: An 82-year-old female with end-stage renal disease, on hemodialysis; coronary artery disease; congestive heart failure; chronic obstructive pulmonary disease; diabetes; hypertension; recent hospitalization; history of cholecystitis and diverticulitis; [id number]; admitted with tachycardia and white count of 19,000, positive infiltrates, was allergic to ceftriaxone. 1. Sepsis with healthcare-associated pneumonia, gram-positive cocci versus gram-negative rods. We will give a dose of vancomycin, start the patient on meropenem. CAT scan of the abdomen has been ordered by Dr. Frazier and we will make further recommendations upon availability of initial results. Case discussed with Dr. Ascencio. Jeromy Castellanos MD
[2017-06-25] MEDS: Albuterol-Ipratrop 3 mg / 0.5 (3 ml) UD IH SCH ×4 (02:06→19:34)
--- NOTE | 2017-06-25 04:52 | HP ---
HISTORY OF PRESENT ILLNESS: This is an 82-year-old female, who has been at [facility] status post bimalleolar fracture of the left ankle. She is reported to have developed cough, initiated on antibiotic several days ago, and this morning, is reported to have had abdominal pain associated with hemoptysis. The patient was referred to [facility]. PAST MEDICAL HISTORY: Diverticulitis, cholecystitis, pneumonia, CHF, atherosclerotic heart disease, carotid disease, hyperlipidemia, noninsulin-dependent diabetes, hypothyroid disease, ischemic heart disease, chronic kidney disease on dialysis 4 times a week, remote hip fracture, myocardial infarction. HOME MEDICATIONS: According to the EMR in the Emergency Room, her home medications are Phenergan, amino acid protein ProSource, Tylenol, TriCor, Tramadol, vitamin B6, Protonix, Procrit weekly, PhosLo t.i.d., Lopressor b.i.d., Neurontin daily, Lovenox daily, Synthroid, Lipitor, Imdur, Colace, bacitracin ointment. She was on Zithromax and Humulin, regular insulin. SOCIAL HISTORY: She is a nonsmoker, nondrinker, nondrug user. ALLERGIES: SHE HAS AN ALLERGY TO CEFTRIAXONE. She has had C. diff in the past as well. REVIEW OF SYSTEMS: Findings as noted are in the physical exam. There is an orthopedic boot on the left foot. She has evidence of her fistula for dialysis on her arm. PHYSICAL EXAMINATION: VITAL SIGNS: Temperature of 102.2 rectally. Her pulse is 102, blood pressure is 101/43, her respiratory rate is 20, oxygen sat is reported at 96% on nasal cannula. LUNGS: Show bilateral rhonchi. HEART: S1 and S2. Grade 2/6 systolic murmur. ABDOMEN: Soft, tender, positive bowel sounds. EXTREMITIES: No edema in the right. Has an orthopedic boot on the left foot ankle area. NEUROLOGICAL: She is alert. LABORATORY DATA: She has a WBC of 19.9, RBC of 3.51, hemoglobin 10.9, hematocrit 34.9, platelet count is 172. PT is 14, with an INR 1.22, PTT 28.9. Lactic acid is 3.6. Chemistry shows a sodium 140, potassium 3.7, chloride 96, BUN is 32, the creatinine is 4. Her random blood sugar is 183. Her phosphorus is 2.3. Her magnesium is 1.9. AST is 52, ALT is 21, total bilirubin is 1.1, alkaline phosphatase is 81. Her troponin is 0.59, and her BNP is 171,000. A chest x-ray done here through the Emergency Room is reported as showing a left upper lobe infiltrate. Her abdominal CAT scan is reported as showing trace bilateral pleural effusions, distended gallbladder with gallstones, atrophic kidneys bilaterally, segmental acute diverticulitis in the distal descending colon and adjacent sigmoid, extensive diverticulitis including the right-sided diverticular disease is again identified. Fecal impaction with constipation. IMPRESSION: An 82-year-old female with; 1. Leukocytosis. 2. Fever. 3. Elevated lactate. 4. Tachycardia. 5. Low blood pressure. 6. Sepsis. 7. Acute diverticulitis. 8. Cholelithiasis. 9. Pneumonia. 10. Chronic renal disease. 11. Hypothyroid disease. 12. Insulin-dependent diabetes. 13. Ischemic heart disease. 14. Elevated troponin. 15. Elevated brain natriuretic peptide. 16. History of hyperlipidemia. 17. History of carotid disease. 18. History of myocardial ischemia and infarct. 19. Remote history of diverticulitis. 20. Clostridium difficile. 21. Congestive heart failure. 22. Chronic obstructive pulmonary disease. 23. Gastritis. More than 50 minutes have been spent reviewing the data, discussing the case with the classification officer from the ICU, the Emergency Room staff, and the family and consultants. The patient will be admitted into the Intensive Care Unit, initiated on antibiotic therapy, pozo cultures of blood and urine to be done. Consults to be requested with Nephrology, Cardiology, GI and Infectious Disease. Family is aware of the patient's clinical status. Shavonne Ascencio MD
[2017-06-25 06:16] LABS: BASO # 0.01 K/mm3 (0.0-2.0); BASO % 0.1 % (0.0-3.0); GRAN # 15.14 (1.4-6.5); GRAN % 86.4 % (50.0-68.0); HEMOGLOBIN 9.5 g/dL (12.0-16.0); LYMPH # 1.7 (1.2-3.4); LYMPH % 9.9 % (22.0-35.0); MEAN CELL VOLUME 98.7 fl (80.0-105.0); MEAN CORPUSCULAR HEMOGLOBIN 30.3 pg (25.0-35.0); MEAN CORPUSCULAR HGB CONC 30.6 g/dl (31.0-37.0); MEAN PLATELET VOLUME 9.3 fl (7.0-11.0); MONO # 0.6 (0.1-0.6); MONO % 3.6 % (1.0-6.0); RBC 3.14 10^6/uL (3.5-6.1); WHITE BLOOD COUNT 17.5 10^3/ul (4.5-11.0)
[2017-06-25 07:08] LABS: ALB/GLOB RATIO 0.7 (1.1-1.8); ALBUMIN 3.4 g/dL (3.0-4.8)
[2017-06-25] MEDS: Insulin Reg-LOW-Coverage SC SCH ×4 (07:20→22:45)
[2017-06-25 09:28] LABS: TROPONIN I 2.7 ng/mL
--- NOTE | 2017-06-25 10:32 | CP.CCUPN ---
<Jose A Daniels - Last Filed: 06/25/17 10:41> CCU Subjective - Physician Review Subjective (Free Text): Patient seen and examined at bedside. Patient states breathing is improved from previous day, but cough remains constant. No acute events overnight. Denies chest pain, shortness of breath, nausea, vomiting, diarrhea, fever, chills. CCU Objective - Vital Signs / Intake & Output Vital Signs (Last 4 hours): Vital Signs Temp Pulse Resp BP Pulse Ox 06/25/17 08:00 97.7 F 100 H 26 H 113/50 L 98 Intake and Output (Last 8hrs): Intake & Output 06/24/17 06/25/17 06/25/17 22:59 06:59 14:59 Weight 119 lb - Physical Exam Head: Positive for: Atraumatic Mouth: Positive for: Dry Pharnyx: Negative for: ERYTHEMA, EXUDATE, Strider Respiratory/Chest: Positive for: Good Air Exchange, Decreased Breath Sounds Cardiovascular: Positive for: Murmurs, Irregular Rhythm, Tachycardic Abdomen: Positive for: Tenderness (LLQ). Negative for: Peritoneal Signs, Rebound, Guarding Rectal: Negative for: Gross Blood Back: Positive for: Paraspinal Tenderness Upper Extremity: Negative for: Edema Lower Extremity: Negative for: Edema Neurological: Positive for: Motor Func Grossly Intact Skin: Positive for: Warm, Dry Psychiatric: Positive for: Alert, Oriented x 3, Normal Insight - Medications Active Medications: Active Medications Generic Name Dose Route Start Last Admin Trade Name Freq PRN Reason Stop Dose Admin Acetaminophen 650 mg 06/24/17 18:04 Tylenol 325mg Tab PO Q6H PRN Fever >100.4 F Albuterol/Ipratropium 3 ml 06/24/17 20:00 06/25/17 08:09 Duoneb 3 Mg/0.5 Mg (3 Ml) Ud IH 3 ml [id number] RUTHANN Administration Aspirin 81 mg 06/25/17 10:00 06/25/17 10:09 Aspirin Chewable PO 81 mg DAILY RUTHANN Administration Atorvastatin Calcium 20 mg 06/25/17 17:00 Lipitor PO DIN RUTHANN Doxycycline Hyclate 100 mg 06/25/17 10:00 06/25/17 10:09 Doryx PO 100 mg Q12 RUTHANN Administration Protocol Guaifenesin/Dextromethorphan 5 ml 06/24/17 18:09 Robitussin Dm PO Q4H PRN Cough Meropenem 500 mg/ Sodium 50 mls @ 100 mls/hr 06/25/17 08:18 Chloride IVPB 1800 [facility] Protocol Insulin Human Regular 0 units 06/24/17 22:00 06/25/17 07:20 Humulin R Low SC Not Given ACHS [facility] Protocol Isosorbide Mononitrate 30 mg 06/25/17 10:00 06/25/17 10:10 Imdur Er PO 30 mg DAILY [facility] Administration Metoprolol Tartrate 25 mg 06/25/17 10:00 Lopressor PO BID [facility] - Patient Studies Lab Studies: Lab Studies 06/25/17 06/25/17 06/25/17 Range/Units 07:14 06:00 05:16 WBC (4.5-11.0) 10^3/ul RBC (3.5-6.1) 10^6/uL Hgb (12.0-16.0) g/dL Hct (36.0-48.0) % MCV (80.0-105.0) fl MCH (25.0-35.0) pg MCHC (31.0-37.0) g/dl RDW (11.5-14.5) % Plt Count (120.0-450.0) 10^3/uL MPV (7.0-11.0) fl Gran % (50.0-68.0) % Lymph % (Auto) (22.0-35.0) % Edgar % (Auto) (1.0-6.0) % Eos % (Auto) (1.5-5.0) % Baso % (Auto) (0.0-3.0) % Gran # (1.4-6.5) Lymph # (Auto) (1.2-3.4) Edgar # (Auto) (0.1-0.6) Eos # (Auto) (0.0-0.7) Baso # (Auto) (0.0-2.0) K/mm3 pO2 (30-55) mm/Hg VBG pH (7.32-7.43) VBG pCO2 (40-60) VBG HCO3 (21-28) mmol/l VBG Total CO2 (22-28) mmol.L VBG O2 Sat (Calc) (40-65) % VBG Base Excess (0.0-2.0) mmol/L VBG Potassium (3.6-5.2) mmol/L Sodium 140 (132-148) mmol/L Chloride 96 L (98-107) mmol/L Glucose (65-105) mg/dl Lactate (0.7-2.1) mmol/L FiO2 % Potassium 4.5 (3.6-5.0) mmol/L Carbon Dioxide 32 (21-33) mmol/L Anion Gap 17 (10-20) BUN 44 H (7-21) mg/dL Creatinine 5.4 H (0.7-1.2) mg/dl Est GFR ( Amer) 9 Est GFR (Non-Af Amer) 8 POC Glucose (mg/dL) 132 H (65-110) mg/dL Random Glucose 180 H (70-110) mg/dL Calcium 9.0 (8.4-10.5) mg/dL Total Bilirubin 1.0 (0.2-1.3) mg/dL AST 58 H (14-36) U/L ALT 11 (7-56) U/L Alkaline Phosphatase 56 (38-126) U/L Lactate Dehydrogenase 394 (333-699) U/L Total Creatine Kinase 36 (35-230) U/L Troponin I 2.70 H* D ng/mL Total Protein 7.9 (5.8-8.3) g/dL Albumin 3.4 (3.0-4.8) g/dL Globulin 4.5 gm/dL Albumin/Globulin Ratio 0.7 L (1.1-1.8) Venous Blood Potassium (3.6-5.2) mmol/L Influenza Typ A,B (EIA) (NEGATIVE) 06/25/17 06/24/17 06/24/17 Range/Units 05:16 21:51 17:15 WBC 17.5 H (4.5-11.0) 10^3/ul RBC 3.14 L (3.5-6.1) 10^6/uL Hgb 9.5 L (12.0-16.0) g/dL Hct 31.0 L (36.0-48.0) % MCV 98.7 (80.0-105.0) fl MCH 30.3 (25.0-35.0) pg MCHC 30.6 L (31.0-37.0) g/dl RDW 18.0 H (11.5-14.5) % Plt Count 152 (120.0-450.0) 10^3/uL MPV 9.3 (7.0-11.0) fl Gran % 86.4 H (50.0-68.0) % Lymph % (Auto) 9.9 L (22.0-35.0) % Edgar % (Auto) 3.6 (1.0-6.0) % Eos % (Auto) 0.0 L (1.5-5.0) % Baso % (Auto) 0.1 (0.0-3.0) % Gran # 15.14 H (1.4-6.5) Lymph # (Auto) 1.7 (1.2-3.4) Edgar # (Auto) 0.6 (0.1-0.6) Eos # (Auto) 0.0 (0.0-0.7) Baso # (Auto) 0.01 (0.0-2.0) K/mm3 pO2 39 (30-55) mm/Hg VBG pH 7.41 (7.32-7.43) VBG pCO2 45.0 (40-60) VBG HCO3 28.5 H (21-28) mmol/l VBG Total CO2 29.9 H (22-28) mmol.L VBG O2 Sat (Calc) 69.1 H (40-65) % VBG Base Excess 3.2 H (0.0-2.0) mmol/L VBG Potassium 3.4 L (3.6-5.2) mmol/L Sodium 136.0 (132-148) mmol/L Chloride 101.0 (98-107) mmol/L Glucose 154 H (65-105) mg/dl Lactate 2.0 (0.7-2.1) mmol/L FiO2 21.0 % Potassium (3.6-5.0) mmol/L Carbon Dioxide (21-33) mmol/L Anion Gap (10-20) BUN (7-21) mg/dL Creatinine (0.7-1.2) mg/dl Est GFR ( Amer) Est GFR (Non-Af Amer) POC Glucose (mg/dL) 151 H (65-110) mg/dL Random Glucose (70-110) mg/dL Calcium (8.4-10.5) mg/dL Total Bilirubin (0.2-1.3) mg/dL AST (14-36) U/L ALT (7-56) U/L Alkaline Phosphatase (38-126) U/L Lactate Dehydrogenase (333-699) U/L Total Creatine Kinase (35-230) U/L Troponin I ng/mL Total Protein (5.8-8.3) g/dL Albumin (3.0-4.8) g/dL Globulin gm/dL Albumin/Globulin Ratio (1.1-1.8) Venous Blood Potassium 3.4 L (3.6-5.2) mmol/L Influenza Typ A,B (EIA) (NEGATIVE) 06/24/17 Range/Units 17:08 WBC (4.5-11.0) 10^3/ul RBC (3.5-6.1) 10^6/uL Hgb (12.0-16.0) g/dL Hct (36.0-48.0) % MCV (80.0-105.0) fl MCH (25.0-35.0) pg MCHC (31.0-37.0) g/dl RDW (11.5-14.5) % Plt Count (120.0-450.0) 10^3/uL MPV (7.0-11.0) fl Gran % (50.0-68.0) % Lymph % (Auto) (22.0-35.0) % Edgar % (Auto) (1.0-6.0) % Eos % (Auto) (1.5-5.0) % Baso % (Auto) (0.0-3.0) % Gran # (1.4-6.5) Lymph # (Auto) (1.2-3.4) Edgar # (Auto) (0.1-0.6) Eos # (Auto) (0.0-0.7) Baso # (Auto) (0.0-2.0) K/mm3 pO2 (30-55) mm/Hg VBG pH (7.32-7.43) VBG pCO2 (40-60) VBG HCO3 (21-28) mmol/l VBG Total CO2 (22-28) mmol.L VBG O2 Sat (Calc) (40-65) % VBG Base Excess (0.0-2.0) mmol/L VBG Potassium (3.6-5.2) mmol/L Sodium (132-148) mmol/L Chloride (98-107) mmol/L Glucose (65-105) mg/dl Lactate (0.7-2.1) mmol/L FiO2 % Potassium (3.6-5.0) mmol/L Carbon Dioxide (21-33) mmol/L Anion Gap (10-20) BUN (7-21) mg/dL Creatinine (0.7-1.2) mg/dl Est GFR ( Amer) Est GFR (Non-Af Amer) POC Glucose (mg/dL) (65-110) mg/dL Random Glucose (70-110) mg/dL Calcium (8.4-10.5) mg/dL Total Bilirubin (0.2-1.3) mg/dL AST (14-36) U/L ALT (7-56) U/L Alkaline Phosphatase (38-126) U/L Lactate Dehydrogenase (333-699) U/L Total Creatine Kinase (35-230) U/L Troponin I ng/mL Total Protein (5.8-8.3) g/dL Albumin (3.0-4.8) g/dL Globulin gm/dL Albumin/Globulin Ratio (1.1-1.8) Venous Blood Potassium (3.6-5.2) mmol/L Influenza Typ A,B (EIA) Negative for flu a/b (NEGATIVE) Laboratory Results - last 24 hr 06/24/17 06/24/17 06/24/17 17:08 17:15 21:51 WBC RBC Hgb Hct MCV MCH MCHC RDW Plt Count MPV Gran % Lymph % (Auto) Edgar % (Auto) Eos % (Auto) Baso % (Auto) Gran # Lymph # (Auto) Edgar # (Auto) Eos # (Auto) Baso # (Auto) pO2 39 VBG pH 7.41 VBG pCO2 45.0 VBG HCO3 28.5 H VBG Total CO2 29.9 H VBG O2 Sat (Calc) 69.1 H VBG Base Excess 3.2 H VBG Potassium 3.4 L Sodium 136.0 Chloride 101.0 Glucose 154 H Lactate 2.0 FiO2 21.0 Potassium Carbon Dioxide Anion Gap BUN Creatinine Est GFR ( Amer) Est GFR (Non-Af Amer) POC Glucose (mg/dL) 151 H Random Glucose Calcium Total Bilirubin AST ALT Alkaline Phosphatase Lactate Dehydrogenase Total Creatine Kinase Troponin I Total Protein Albumin Globulin Albumin/Globulin Ratio Venous Blood Potassium 3.4 L Influenza Typ A,B (EIA) Negative for flu a/b 06/25/17 06/25/17 06/25/17 05:16 05:16 06:00 WBC 17.5 H RBC 3.14 L Hgb 9.5 L Hct 31.0 L MCV 98.7 MCH 30.3 MCHC 30.6 L RDW 18.0 H Plt Count 152 MPV 9.3 Gran % 86.4 H Lymph % (Auto) 9.9 L Edgar % (Auto) 3.6 Eos % (Auto) 0.0 L Baso % (Auto) 0.1 Gran # 15.14 H Lymph # (Auto) 1.7 Edgar # (Auto) 0.6 Eos # (Auto) 0.0 Baso # (Auto) 0.01 pO2 VBG pH VBG pCO2 VBG HCO3 VBG Total CO2 VBG O2 Sat (Calc) VBG Base Excess VBG Potassium Sodium 140 Chloride 96 L Glucose Lactate FiO2 Potassium 4.5 Carbon Dioxide 32 Anion Gap 17 BUN 44 H Creatinine 5.4 H Est GFR ( Amer) 9 Est GFR (Non-Af Amer) 8 POC Glucose (mg/dL) Random Glucose 180 H Calcium 9.0 Total Bilirubin 1.0 AST 58 H ALT 11 Alkaline Phosphatase 56 Lactate Dehydrogenase 394 Total Creatine Kinase 36 Troponin I 2.70 H* D Total Protein 7.9 Albumin 3.4 Globulin 4.5 Albumin/Globulin Ratio 0.7 L Venous Blood Potassium Influenza Typ A,B (EIA) 06/25/17 07:14 WBC RBC Hgb Hct MCV MCH MCHC RDW Plt Count MPV Gran % Lymph % (Auto) Edgar % (Auto) Eos % (Auto) Baso % (Auto) Gran # Lymph # (Auto) Edgar # (Auto) Eos # (Auto) Baso # (Auto) pO2 VBG pH VBG pCO2 VBG HCO3 VBG Total CO2 VBG O2 Sat (Calc) VBG Base Excess VBG Potassium Sodium Chloride Glucose Lactate FiO2 Potassium Carbon Dioxide Anion Gap BUN Creatinine Est GFR ( Amer) Est GFR (Non-Af Amer) POC Glucose (mg/dL) 132 H Random Glucose Calcium Total Bilirubin AST ALT Alkaline Phosphatase Lactate Dehydrogenase Total Creatine Kinase Troponin I Total Protein Albumin Globulin Albumin/Globulin Ratio Venous Blood Potassium Influenza Typ A,B (EIA) EKG/Cardiology Studies: Cardiology / EKG Studies 06/25/17 EKG [ELECTROCARDIOGRAM] Urgent Comment: Reason For Exam: elevated troponin Fingerstick Blood Sugar Results: 132 Critical Care Progress Note - Nutrition Nutrition: Nutrition Category Date Time Status Heart Healthy Diet [DIET] Diets 06/24/17 Dinner Ordered Assessment/Plan - Assessment and Plan (Free Text) Plan: 82 year old female with past medical history of ESRD, CHF, CAD, DM, diverticulitis, and HTN presents with diverticulitis and HCAP. Patient also noted to have elevation from previous troponin yesterday. Will continue to follow cardiology recommendations. Patient also noted to have fecal impaction on CT scan, will order enema. Neuro: AAO x3 No deficits Cardio: Elevated troponin, will follow cardio recs Echo ordered Repeat EKG Hemodynamically stable Maintain MAP >65 Cardiology consulted, Dr. Velez Pulm: HCAP Merrem and Doxy Duonebs prn Maintain O2 sat >90% GI: Protonix Tap water enema ordered Heart healthy diet Nephro: Dialysis M/W/F/Sat Maintain euvolemia ID: Merrem and Doxy Gram negative rods in blood culture Afebrile, leukocytosis improving Jeremiah, PGY-2 <Joshua Hicks - Last Filed: 06/25/17 11:29> CCU Objective - Vital Signs / Intake & Output Vital Signs (Last 4 hours): Vital Signs Temp Pulse Resp BP Pulse Ox 06/25/17 08:00 97.7 F 100 H 26 H 113/50 L 98 Intake and Output (Last 8hrs): Intake & Output 06/24/17 06/25/17 06/25/17 22:59 06:59 14:59 Weight 119 lb - Medications Active Medications: Active Medications Generic Name Dose Route Start Last Admin Trade Name Freq PRN Reason Stop Dose Admin Acetaminophen 650 mg 06/24/17 18:04 Tylenol 325mg Tab PO Q6H PRN Fever >100.4 F Albuterol/Ipratropium 3 ml 06/24/17 20:00 06/25/17 08:09 Duoneb 3 Mg/0.5 Mg (3 Ml) Ud IH 3 ml [id number] RUTHANN Administration Aspirin 81 mg 06/25/17 10:00 06/25/17 10:09 Aspirin Chewable PO 81 mg DAILY RUTHANN Administration Atorvastatin Calcium 20 mg 06/25/17 17:00 Lipitor PO DIN RUTHANN Doxycycline Hyclate 100 mg 06/25/17 10:00 06/25/17 10:09 Doryx PO 100 mg Q12 RUTHANN Administration Protocol Guaifenesin/Dextromethorphan 5 ml 06/24/17 18:09 Robitussin Dm PO Q4H PRN Cough Meropenem 500 mg/ Sodium 50 mls @ 100 mls/hr 06/25/17 08:18 Chloride IVPB 1800 [facility] Protocol Insulin Human Regular 0 units 06/24/17 22:00 06/25/17 07:20 Humulin R Low SC Not Given ACHS [facility] Protocol Isosorbide Mononitrate 30 mg 06/25/17 10:00 06/25/17 10:10 Imdur Er PO 30 mg DAILY RUTHANN Administration Metoprolol Tartrate 25 mg 06/25/17 10:00 Lopressor PO BID RUTHANN - Patient Studies Lab Studies: Lab Studies 06/25/17 06/25/17 06/25/17 Range/Units 07:14 06:00 05:16 WBC (4.5-11.0) 10^3/ul RBC (3.5-6.1) 10^6/uL Hgb (12.0-16.0) g/dL Hct (36.0-48.0) % MCV (80.0-105.0) fl MCH (25.0-35.0) pg MCHC (31.0-37.0) g/dl RDW (11.5-14.5) % Plt Count (120.0-450.0) 10^3/uL MPV (7.0-11.0) fl Gran % (50.0-68.0) % Lymph % (Auto) (22.0-35.0) % Edgar % (Auto) (1.0-6.0) % Eos % (Auto) (1.5-5.0) % Baso % (Auto) (0.0-3.0) % Gran # (1.4-6.5) Lymph # (Auto) (1.2-3.4) Edgar # (Auto) (0.1-0.6) Eos # (Auto) (0.0-0.7) Baso # (Auto) (0.0-2.0) K/mm3 pO2 (30-55) mm/Hg VBG pH (7.32-7.43) VBG pCO2 (40-60) VBG HCO3 (21-28) mmol/l VBG Total CO2 (22-28) mmol.L VBG O2 Sat (Calc) (40-65) % VBG Base Excess (0.0-2.0) mmol/L VBG Potassium (3.6-5.2) mmol/L Sodium 140 (132-148) mmol/L Chloride 96 L (98-107) mmol/L Glucose (65-105) mg/dl Lactate (0.7-2.1) mmol/L FiO2 % Potassium 4.5 (3.6-5.0) mmol/L Carbon Dioxide 32 (21-33) mmol/L Anion Gap 17 (10-20) BUN 44 H (7-21) mg/dL Creatinine 5.4 H (0.7-1.2) mg/dl Est GFR ( Amer) 9 Est GFR (Non-Af Amer) 8 POC Glucose (mg/dL) 132 H (65-110) mg/dL Random Glucose 180 H (70-110) mg/dL Calcium 9.0 (8.4-10.5) mg/dL Total Bilirubin 1.0 (0.2-1.3) mg/dL AST 58 H (14-36) U/L ALT 11 (7-56) U/L Alkaline Phosphatase 56 (38-126) U/L Lactate Dehydrogenase 394 (333-699) U/L Total Creatine Kinase 36 (35-230) U/L Troponin I 2.70 H* D ng/mL Total Protein 7.9 (5.8-8.3) g/dL Albumin 3.4 (3.0-4.8) g/dL Globulin 4.5 gm/dL Albumin/Globulin Ratio 0.7 L (1.1-1.8) Venous Blood Potassium (3.6-5.2) mmol/L Influenza Typ A,B (EIA) (NEGATIVE) 06/25/17 06/24/17 06/24/17 Range/Units 05:16 21:51 17:15 WBC 17.5 H (4.5-11.0) 10^3/ul RBC 3.14 L (3.5-6.1) 10^6/uL Hgb 9.5 L (12.0-16.0) g/dL Hct 31.0 L (36.0-48.0) % MCV 98.7 (80.0-105.0) fl MCH 30.3 (25.0-35.0) pg MCHC 30.6 L (31.0-37.0) g/dl RDW 18.0 H (11.5-14.5) % Plt Count 152 (120.0-450.0) 10^3/uL MPV 9.3 (7.0-11.0) fl Gran % 86.4 H (50.0-68.0) % Lymph % (Auto) 9.9 L (22.0-35.0) % Edgar % (Auto) 3.6 (1.0-6.0) % Eos % (Auto) 0.0 L (1.5-5.0) % Baso % (Auto) 0.1 (0.0-3.0) % Gran # 15.14 H (1.4-6.5) Lymph # (Auto) 1.7 (1.2-3.4) Edgar # (Auto) 0.6 (0.1-0.6) Eos # (Auto) 0.0 (0.0-0.7) Baso # (Auto) 0.01 (0.0-2.0) K/mm3 pO2 39 (30-55) mm/Hg VBG pH 7.41 (7.32-7.43) VBG pCO2 45.0 (40-60) VBG HCO3 28.5 H (21-28) mmol/l VBG Total CO2 29.9 H (22-28) mmol.L VBG O2 Sat (Calc) 69.1 H (40-65) % VBG Base Excess 3.2 H (0.0-2.0) mmol/L VBG Potassium 3.4 L (3.6-5.2) mmol/L Sodium 136.0 (132-148) mmol/L Chloride 101.0 (98-107) mmol/L Glucose 154 H (65-105) mg/dl Lactate 2.0 (0.7-2.1) mmol/L FiO2 21.0 % Potassium (3.6-5.0) mmol/L Carbon Dioxide (21-33) mmol/L Anion Gap (10-20) BUN (7-21) mg/dL Creatinine (0.7-1.2) mg/dl Est GFR ( Amer) Est GFR (Non-Af Amer) POC Glucose (mg/dL) 151 H (65-110) mg/dL Random Glucose (70-110) mg/dL Calcium (8.4-10.5) mg/dL Total Bilirubin (0.2-1.3) mg/dL AST (14-36) U/L ALT (7-56) U/L Alkaline Phosphatase (38-126) U/L Lactate Dehydrogenase (333-699) U/L Total Creatine Kinase (35-230) U/L Troponin I ng/mL Total Protein (5.8-8.3) g/dL Albumin (3.0-4.8) g/dL Globulin gm/dL Albumin/Globulin Ratio (1.1-1.8) Venous Blood Potassium 3.4 L (3.6-5.2) mmol/L Influenza Typ A,B (EIA) (NEGATIVE) 06/24/17 Range/Units 17:08 WBC (4.5-11.0) 10^3/ul RBC (3.5-6.1) 10^6/uL Hgb (12.0-16.0) g/dL Hct (36.0-48.0) % MCV (80.0-105.0) fl MCH (25.0-35.0) pg MCHC (31.0-37.0) g/dl RDW (11.5-14.5) % Plt Count (120.0-450.0) 10^3/uL MPV (7.0-11.0) fl Gran % (50.0-68.0) % Lymph % (Auto) (22.0-35.0) % Edgar % (Auto) (1.0-6.0) % Eos % (Auto) (1.5-5.0) % Baso % (Auto) (0.0-3.0) % Gran # (1.4-6.5) Lymph # (Auto) (1.2-3.4) Edgar # (Auto) (0.1-0.6) Eos # (Auto) (0.0-0.7) Baso # (Auto) (0.0-2.0) K/mm3 pO2 (30-55) mm/Hg VBG pH (7.32-7.43) VBG pCO2 (40-60) VBG HCO3 (21-28) mmol/l VBG Total CO2 (22-28) mmol.L VBG O2 Sat (Calc) (40-65) % VBG Base Excess (0.0-2.0) mmol/L VBG Potassium (3.6-5.2) mmol/L Sodium (132-148) mmol/L Chloride (98-107) mmol/L Glucose (65-105) mg/dl Lactate (0.7-2.1) mmol/L FiO2 % Potassium (3.6-5.0) mmol/L Carbon Dioxide (21-33) mmol/L Anion Gap (10-20) BUN (7-21) mg/dL Creatinine (0.7-1.2) mg/dl Est GFR ( Amer) Est GFR (Non-Af Amer) POC Glucose (mg/dL) (65-110) mg/dL Random Glucose (70-110) mg/dL Calcium (8.4-10.5) mg/dL Total Bilirubin (0.2-1.3) mg/dL AST (14-36) U/L ALT (7-56) U/L Alkaline Phosphatase (38-126) U/L Lactate Dehydrogenase (333-699) U/L Total Creatine Kinase (35-230) U/L Troponin I ng/mL Total Protein (5.8-8.3) g/dL Albumin (3.0-4.8) g/dL Globulin gm/dL Albumin/Globulin Ratio (1.1-1.8) Venous Blood Potassium (3.6-5.2) mmol/L Influenza Typ A,B (EIA) Negative for flu a/b (NEGATIVE) Laboratory Results - last 24 hr 06/24/17 06/24/1718 17:08 17:15 21:51 WBC RBC Hgb Hct MCV MCH MCHC RDW Plt Count MPV Gran % Lymph % (Auto) Edgar % (Auto) Eos % (Auto) Baso % (Auto) Gran # Lymph # (Auto) Edgar # (Auto) Eos # (Auto) Baso # (Auto) pO2 39 VBG pH 7.41 VBG pCO2 45.0 VBG HCO3 28.5 H VBG Total CO2 29.9 H VBG O2 Sat (Calc) 69.1 H VBG Base Excess 3.2 H VBG Potassium 3.4 L Sodium 136.0 Chloride 101.0 Glucose 154 H Lactate 2.0 FiO2 21.0 Potassium Carbon Dioxide Anion Gap BUN Creatinine Est GFR ( Amer) Est GFR (Non-Af Amer) POC Glucose (mg/dL) 151 H Random Glucose Calcium Total Bilirubin AST ALT Alkaline Phosphatase Lactate Dehydrogenase Total Creatine Kinase Troponin I Total Protein Albumin Globulin Albumin/Globulin Ratio Venous Blood Potassium 3.4 L Influenza Typ A,B (EIA) Negative for flu a/b 06/25/17 06/25/17 06/25/17 05:16 05:16 06:00 WBC 17.5 H RBC 3.14 L Hgb 9.5 L Hct 31.0 L MCV 98.7 MCH 30.3 MCHC 30.6 L RDW 18.0 H Plt Count 152 MPV 9.3 Gran % 86.4 H Lymph % (Auto) 9.9 L Edgar % (Auto) 3.6 Eos % (Auto) 0.0 L Baso % (Auto) 0.1 Gran # 15.14 H Lymph # (Auto) 1.7 Edgar # (Auto) 0.6 Eos # (Auto) 0.0 Baso # (Auto) 0.01 pO2 VBG pH VBG pCO2 VBG HCO3 VBG Total CO2 VBG O2 Sat (Calc) VBG Base Excess VBG Potassium Sodium 140 Chloride 96 L Glucose Lactate FiO2 Potassium 4.5 Carbon Dioxide 32 Anion Gap 17 BUN 44 H Creatinine 5.4 H Est GFR ( Amer) 9 Est GFR (Non-Af Amer) 8 POC Glucose (mg/dL) Random Glucose 180 H Calcium 9.0 Total Bilirubin 1.0 AST 58 H ALT 11 Alkaline Phosphatase 56 Lactate Dehydrogenase 394 Total Creatine Kinase 36 Troponin I 2.70 H* D Total Protein 7.9 Albumin 3.4 Globulin 4.5 Albumin/Globulin Ratio 0.7 L Venous Blood Potassium Influenza Typ A,B (EIA) 06/25/17 07:14 WBC RBC Hgb Hct MCV MCH MCHC RDW Plt Count MPV Gran % Lymph % (Auto) Edgar % (Auto) Eos % (Auto) Baso % (Auto) Gran # Lymph # (Auto) Edgar # (Auto) Eos # (Auto) Baso # (Auto) pO2 VBG pH VBG pCO2 VBG HCO3 VBG Total CO2 VBG O2 Sat (Calc) VBG Base Excess VBG Potassium Sodium Chloride Glucose Lactate FiO2 Potassium Carbon Dioxide Anion Gap BUN Creatinine Est GFR ( Amer) Est GFR (Non-Af Amer) POC Glucose (mg/dL) 132 H Random Glucose Calcium Total Bilirubin AST ALT Alkaline Phosphatase Lactate Dehydrogenase Total Creatine Kinase Troponin I Total Protein Albumin Globulin Albumin/Globulin Ratio Venous Blood Potassium Influenza Typ A,B (EIA) EKG/Cardiology Studies: Cardiology / EKG Studies 06/25/17 EKG [ELECTROCARDIOGRAM] Urgent Comment: Reason For Exam: elevated troponin Critical Care Progress Note - Nutrition Nutrition: Nutrition Category Date Time Status Heart Healthy Diet [DIET] Diets 06/24/17 Dinner Ordered Assessment/Plan - Assessment and Plan (Free Text) Plan: Patient seen and examined on rounds with resident, agree with note with following additions/exceptions: Patient is 82yo female with PMHx of ESRD on HD, CAD, CHF, DM, HTN, presented with diverticulitis, and HCAP, on broad spectrum antibiotics. Currently afebrile , HD stable, good O2 saturation on 2LNC, comfortable in NAD. Troponin uptrending todya, denies cp, sob, palpitations, JONES, dizziness. Elevated Troponin/NSTEMI HCAP Diverticulitis ESRD on HD HTN Recommend: - sup o2 as needed - cont with broad spectrum antibiotics, as per ID - follow up cultures, Procal - BP control - HD as per renal - Follow up cardiology, defer A/C to cardiology - ECHO - would start ASA, Plavix, BB, Statin - Enema - FS control - GI ppx - DVT ppx - Monitor in MICU
--- NOTE | 2017-06-25 10:35 | RAD ---
HISTORY: [place] COMPARISON: Earlier same day FINDINGS: LUNGS: There is consolidation in the left upper lobe adjacent to the aortic arch. Continued follow-up is recommended to rule out a mass. PLEURA: No significant pleural effusion identified, no pneumothorax apparent. CARDIOVASCULAR: Normal. OSSEOUS STRUCTURES: No significant abnormalities. VISUALIZED UPPER ABDOMEN: Normal. OTHER FINDINGS: None. IMPRESSION: There is consolidation in the left upper lobe adjacent to the aortic arch. Continued follow-up is recommended to rule out a mass.
--- NOTE | 2017-06-25 10:37 | RAD ---
PROCEDURE: Left Ankle Radiographs. HISTORY: hx of ankle fracture COMPARISON: None FINDINGS: BONES: There is a nondisplaced fracture through the lateral malleolus seen best on the AP view. There is no disruption of the ankle joint JOINTS: Normal. No osteoarthritis. Ankle mortise maintained. Talar dome intact SOFT TISSUES: Normal. OTHER FINDINGS: None. IMPRESSION: Nondisplaced fracture of the lateral malleolus
--- NOTE | 2017-06-25 11:17 | CP.PCM.PN ---
Subjective - Date & Time of Evaluation Date of Evaluation: 06/25/17 Time of Evaluation: 10:20 - Subjective Subjective: Patient was constipated and is receiving enema. Abdominal pain is less today, no fevers, still with cough but no SOB at rest. Objective - Vital Signs/Intake and Output Vital Signs (last 24 hours): Temp Pulse Resp BP Pulse Ox 97.7 F 100 H 26 H 113/50 L 98 06/25/17 08:00 06/25/17 08:00 06/25/17 08:00 06/25/17 08:00 06/25/17 08:00 - Medications Medications: Current Medications Acetaminophen (Tylenol 325mg Tab) 650 mg PO Q6H PRN PRN Reason: Fever >100.4 F Albuterol/Ipratropium (Duoneb 3 Mg/0.5 Mg (3 Ml) Ud) 3 ml IH [id number] RUTHANN Last Admin: 06/25/17 08:09 Dose: 3 ml Guaifenesin/Dextromethorphan (Robitussin Dm) 5 ml PO Q4H PRN PRN Reason: Cough Dextrose/Sodium Chloride (Dextrose 5%/0.45% Ns 1000 Ml) 1,000 mls @ 25 mls/hr IV .Q24H RUTHANN Last Admin: 06/24/17 18:22 Dose: 25 mls/hr Meropenem 500 mg/ Sodium (Chloride) 50 mls @ 100 mls/hr IVPB 1800 RUTHANN PRN Reason: Protocol Insulin Human Regular (Humulin R Low) 0 units SC ACHS RUTAHNN PRN Reason: Protocol Last Admin: 06/25/17 07:20 Dose: Not Given - Labs Labs: 06/25/17 05:16 06/25/17 05:16 PT 14.0 SECONDS (9.4-12.5) H 06/24/17 13:30 INR 1.22 (0.93-1.08) H 06/24/17 13:30 APTT 28.9 Seconds (25.1-36.5) 06/24/17 13:30 - Constitutional Appears: Chronically Ill - Head Exam Head Exam: NORMAL INSPECTION - ENT Exam ENT Exam: Mucous Membranes Moist - Neck Exam Neck Exam: absent: Meningismus - Respiratory Exam Respiratory Exam: Decreased Breath Sounds - Cardiovascular Exam Cardiovascular Exam: +S1, +S2 - GI/Abdominal Exam GI & Abdominal Exam: Soft. absent: Tenderness Assessment and Plan - Assessment and Plan (Free Text) Plan: Assessment sepsis due to gram negative bacilli bacteremia probably from acute left sided diverticulitis, consider left upper lobe HCAP history of C. diff. associated diarrhea S/P severe sepsis with acute sigmoid diverticulitis and acute cholecystitis history of acute NSTEMI history of sepsis due to acute descending colon diverticulitis and bilateral lobe healthcare-associated pneumonia history of healthcare-associated pneumonia (right upper lobe, bilateral lower lobes) HTN DM CAD with chronic CHF ESRD on HD Plan continue Merrem and added doxycycline (day 2) and has been given a dose of IV vancomycin pending identification and sensitivities of the gram negative bacilli in the blood will monitor clinically
[2017-06-25] MEDS ORDERED: Lidocaine/Prilocaine 2.5%-2.5% Cream(30 gm) TOP PRN ×2 (12:41→12:49)
--- NOTE | 2017-06-25 12:53 | CARD ---
APPROVED REPORT EKG Measurement Heart [id number] <Conclusion> Normal sinus rhythm Incomplete left bundle branch block ST & T wave abnormality c/w ischemia
[2017-06-25] MEDS: Meropenem 500 MG in Sodium Chloride 0.9% 50 ML IVPB SCH (17:24)
[2017-06-25 17:35] LABS: TROPONIN I 1.55 ng/mL
--- NOTE | 2017-06-25 19:51 | CON ---
DATE: 06/25/2017 ORTHOPEDIC CONSULTATION HISTORY OF PRESENT ILLNESS: The patient is an 82-year-old female with a 1-month-old fracture of left ankle from 05/23/2017, was in a walking boot because the fracture was minimally displaced and new x-ray shows healing well. We will take the walking boot off and replace it with an Aircast, which will need a walking shoe on her left foot so she can ambulate with a walker and the progress of the fracture is good in that I see early callus and no pain when I touch her. She has good dorsalis pedis pulse and no ankle swelling. So, I feel as though she has a recovered ankle fracture, healing well, 5 weeks old, until now can ambulate with an Aircast and a shoe wear from home, I told her family to get a shoefrom.. DO Hayley MELANIE
--- NOTE | 2017-06-25 21:44 | CON ---
DATE: 06/25/2017 INDICATIONS: Positive troponins. HISTORY OF PRESENT ILLNESS: This is an 82-year-old woman known to our practice, readmitted from the correction when she became short of breath with cough over the course of several days, treated with antibiotics. On the day of admission, she developed abdominal pain and possibly hemoptysis or coughing up blood tinged sputum. She was subsequently evaluated in the emergency room. Possible pneumonia was detected on her chest x-ray. Troponins are elevated. She was admitted to the Intensive Care Unit. There was no chest pain or shortness of breath this morning. There was no orthopnea, PND, syncope, vertigo, dizziness, fever, chills, rigor, sweats, or melena. PAST MEDICAL HISTORY: Extremely complex, she has had multiple [facility] admissions. She has chronic kidney disease and chronic hemodialysis. There is a history of coronary artery disease, myocardial infarctions, hypertension, diabetes,congestive heart failure, pulmonary edema, moderate mitral regurgitation on echocardiography. Additional diagnoses include diverticulitis, GI bleeding with angiodysplasia, cerebrovascular disease with carotid stenting, peripheral neuropathy, colonic polyps. hypothyroidism, cholecystitis, pneumonia, hip fracture, and recent fall with a left ankle fracture. She has been rehabilitating in [facility] at the time of this acute illness. MEDICATIONS: At the time of admission include Colace, insulin, isosorbide, Lipitor, metoprolol, Lovenox, Neurontin, Phenergan, PhosLo, Procrit, ProSource, Protonix, Synthroid, fenofibrate,Tylenol, Ultram, vitamin B6, and Zithromax. ALLERGIES: SHE NOTES AN ALLERGY TO CEFTRIAXONE. SOCIAL HISTORY: Noncontributory. She does not smoke cigarettes or drink alcohol. FAMILY HISTORY: Noncontributory. REVIEW OF SYSTEMS: Ten-point review of systems is otherwise unremarkable, except as noted above. PHYSICAL EXAMINATION: GENERAL: She is an elderly woman lying in bed, in the CCU, in no acute distress. VITAL SIGNS: Sinus rhythm at 69 beats per minute. She is afebrile. Blood pressure 106/36, respirations 19 to 27, O2 sat 97% to 100% on nasal cannula. HEENT: Reveals no neck vein distention, thyromegaly, carotid bruit. Mucous membranes moist. Conjunctivae pink. NECK: Supple. CHEST: Lungs riggs, scattered rhonchi, worse on the left. HEART: Reveals normal first and second heart sounds. There is a systolic murmur along the left sternal border. ABDOMEN: Soft and benign. No mass, organomegaly, tenderness, rebound, guarding, CVA tenderness, or palpable abdominal aortic aneurysm. EXTREMITIES: Reveal an orthopedic boot. No definite edema. NEUROLOGIC: Awake and alert. PSYCHIATRIC: Normal mood and affect. SKIN: Warm and dry. No rash or cellulitis. LABORATORY AND IMAGING: Chest x-ray reveals new left upper lobe infiltrate, likely acute pneumonia. EKG demonstrates sinus rhythm with Mobitz type 1 second-degree AV block. There is poor R-wave progression, anteroseptal myocardial infarction, intraventricular conduction delay, LVH, ST-T wave changes consistent with ischemia. CT scan of the abdomen and pelvis reveals focal diverticulitis and cholelithiasis, etc., see full report. White count 17,500, hemoglobin 9.5, hematocrit 31, platelet count normal. PT 14, INR 1.22, PTT 28.9. Blood gases are noted. Sodium 140, potassium 3.7, BUN 32, creatinine 4.0. LFTs mildly abnormal. CK 49, troponin 0.59. Repeat troponin is 2.7. Repeat CK is 36. Influenza is negative. ASSESSMENT: Margo Uriarte is an 82-year-old woman with complex medical problems admitted from the correction with complex medical problems including cough, congestion, probable left upper lobe pneumonia. Positive troponins, which is a chronic feature of her admissions, possible non-ST elevation myocardial infarction, as well as diabetes, hypertension, mitral regurgitation, cerebrovascular disease, history of gastrointestinal bleeding, and chronic hemodialysis. PLAN: At this time, she is in the Intensive Care Unit. We will get serial EKGs and enzymes. She is on aspirin. I will continue her cardiac medications including isosorbide, Lipitor, and metoprolol. She will have Renal and GI evaluations. She is being followed by Infectious Disease and Dr. Ascencio. I will review her old records. I will follow along with you and make additional recommendations based on her clinical course. Rahul Velez MD [facility] # [id number] MELANIE
--- NOTE | 2017-06-25 22:19 | CON ---
DATE: 06/25/[address] Shavonne Ascencio. REFERRING MD: Shavonne Ascencio MD. REASON FOR CONSULTATION: To provide dialysis services for a patient admitted with mild acute diverticulitis, a new left upper lobe pneumonia with hemoptysis. HISTORY OF PRESENT ILLNESS: Patient is a pleasant 82-year-old white female who was transferred from [facility] because of increased shortness of breath, hemoptysis, and abdominal pain. Patient was noted to have an elevated white cell count, a new left upper lobe infiltrate. Patient was felt to be septic. Patient was admitted to the ICU. Patient has been on dialysis for end-stage renal disease, currently dialyzing four times a week because of volume-related issues and hypotension, hypertension, ASHD with a history of atrial fibrillation, history of hypothyroidism, history of secondary hyperparathyroidism, history of NIDDM, and recent history of a left ankle fracture status post a fall. Patient is due for her routine dialysis treatment today. Her last dialysis was 2 days ago at [facility]. PAST MEDICAL HISTORY: Significant for end-stage renal disease, history of hypertension, history of ASHD, status post episodes of atrial fibrillation, history of hypothyroidism, history of secondary hyperparathyroidism, history of hyperlipidemia, history of NIDDM, history of a recent left ankle fracture. MEDICATIONS AT HOME: Include that of Phenergan, ProSource protein supplement, Tylenol p.r.n., TriCor, Ultram, vitamin B6, Protonix, Procrit, PhosLo, Lopressor, Neurontin, Lovenox, Synthroid, Lipitor, Imdur, Colace, Zithromax, and insulin. ALLERGIES: PATIENT IS ALLERGIC TO CEFTRIAXONE. CURRENT MEDICATIONS IN HOSPITAL: Include that of aspirin, Doryx, DuoNeb, insulin, Imdur, Lipitor, Lopressor, meropenem, Robitussin, and Tylenol. SOCIAL HISTORY: No history of cigarette smoking. No history of alcohol use. No history of drug abuse. FAMILY HISTORY: Noncontributory and as per old charts. REVIEW OF SYSTEMS: GENERAL: Patient states appetite has been fair. No weight loss at [facility]. ENT: Denies any hearing or visual problems. PULMONARY: Mild shortness of breath. Positive hemoptysis as noted above. CARDIAC: History of ASHD, history of atrial fibrillation, history of mild valvular heart disease. GASTROINTESTINAL: Mild abdominal pain relief with a bowel movement. Positive constipation of 4 days. No nausea or vomiting. No diarrhea. GENITOURINARY: No significant urine output. History of end-stage renal disease. GYNECOLOGICAL: Postmenopausal. ENDOCRINE: Positive NIDDM, positive hypothyroidism, positive secondary hyperparathyroidism. MUSCULOSKELETAL: Pain in her left ankle with a recent left ankle fracture. NEUROLOGICAL: No history of CVA, TIA, seizures, or syncope. HEMATOLOGY AND ONCOLOGY: History of anemia secondary to chronic kidney disease. No history of malignancy. PSYCHIATRIC: History is negative. PHYSICAL EXAMINATION: GENERAL: Patient is currently seen in CCU, bed 2. She is getting ready to start dialysis. She appears to be in no acute distress. No shortness of breath at present. VITAL SIGNS: Blood pressure is 119/51. Temperature is 97.4, T-max yesterday was 102.2. Respiratory rate is 30 with a pulse of 83. HEENT: Exam shows her be normocephalic, atraumatic. Conjunctivae are pale. Sclerae are nonicteric. Pupils equal, round, and reactive to light and accommodation. Extraocular muscles are intact. Posterior pharynx is normal. NECK: Supple. No neck vein distention or lymphadenopathy. No bruits. CHEST: Positive scattered rhonchi. No rales, no wheezing. No decreased breath sounds at the bases. CARDIOVASCULAR: Shows a regular rate and rhythm with MR/TR. No S3, no S4, no rub. ABDOMEN: Soft. Bowel sounds normal. No tenderness on palpation of her left lower quadrant. No masses. No rebound or guarding. BACK: No CVAT. No spinal tenderness. EXTREMITIES: Show a working AV fistula, left upper extremity. No lower extremity edema. The immobilizer on her left lower extremity had been removed. Diminished lower extremity pulses bilaterally. NEUROLOGICAL: Shows her be alert, oriented x3. No focal deficits are noted. IMAGING STUDIES: Admitting chest x-ray showed a left upper lobe infiltrate. Admitting lower chest, abdominal, and pelvic CT showed mild diverticulitis with bilateral trace pleural effusions. Admitting EKG showed a sinus rhythm with a second-degree AV block, Mobitz type I. LABORATORY DATA: CBC: White blood cell count 19.9 on admission, 17.5 today. Hemoglobin is down to 9.5. Platelet count is 152,000. Coags: PT of 14.0 with an INR of 1.22. A blood gas yesterday showed a pH of 7.41 with a pCO2 of 45 and a pO2 of 39, likely a venous blood gas. Chemistries: This morning, sodium 140, potassium 4.5, chloride 96, BUN 44 with a creatinine of 5.4. Glucose is 180. Calcium 9.0. Yesterday's phosphorus 2.3 with a magnesium of 1.9. Mild elevation of her AST. Elevated troponin at 2.70. Albumin is 3.4. BUN 44 with a creatinine of 5.4. Influenza titers were negative. Microbiology: Preliminary blood cultures are positive for gram-negative larisa. ASSESSMENT: 1. Sepsis with likely gram-negative larisa septicemia in the setting of a new left upper lobe pneumonia with hemoptysis and possible acute diverticulitis. Patient is currently stable in the CCU, bed 2. Hemodynamics appeared to be stable. She is preparing for her first inpatient dialysis. Her last dialysis was at [facility] days ago. Patient will dialyze heparin free in light of the fact that she had hemoptysis. Patient does not appear to be volume overloaded. 2. Left upper lobe infiltrate with hemoptysis. Patient is on broad-spectrum antibiotic therapy. Influenza titers are negative. 3. Possible recurrent acute diverticulitis with gram-negative larisa in her blood. Await isolation and sensitivity. Continue present antibiotic therapy. 4. Elevated troponin level. Perhaps cardiac ischemia in the setting of sepsis and septicemia. Cardiology evaluation in progress. 5. End-stage renal disease. Patient will continue four times a week dialysis as per our outpatient protocol. 6. History of hypertension. Blood pressure control is currently acceptable on present medications. 7. History of atherosclerotic heart disease, mild valvular heart disease, mitral regurgitation/tricuspid regurgitation with history of paroxysmal atrial fibrillation and now possible elevated troponin levels with perhaps cardiac ischemia. 8. Hypothyroidism: Patient will continue thyroid replacement therapy. 9. History of secondary hyperparathyroidism. Phosphorus level is low. Binders can be placed on hold, but patient should remain on a renal diet. 10. Noninsulin-dependent diabetes mellitus, sliding scale insulin. 11. Status post recent left ankle fracture. Presently, the immobilizer is off and patient has no complaints. PLAN: 1. Empiric antibiotic therapy, pending cultures. 2. Continue Pulmonary, Cardiac, and ID followup. 3. Hemodialysis today as per routine. Patient will dialyze on a 3.0 K bath and will try to ultrafiltrate 2 kg. 4. Continue present cardiac medications. Patient should continue on beta-leandro therapy. 5. Case discussed with CCU staff. 6. Case discussed with Dr. Ascencio on 06/24/2017. Greater than 35 minutes spent in the care of this patient. Thank you for letting me partake and share in the care of our mutual patient. Buck Yanes MD
[2017-06-26] MEDS: Albuterol-Ipratrop 3 mg / 0.5 (3 ml) UD IH SCH ×4 (01:32→21:44)
[2017-06-26 07:03] LABS: EOS % 0.2 % (1.5-5.0); GRAN # 8.64 (1.4-6.5); GRAN % 85.1 % (50.0-68.0); HEMOGLOBIN 8.8 g/dL (12.0-16.0); LYMPH % 9.5 % (22.0-35.0); MEAN CELL VOLUME 97.6 fl (80.0-105.0); MEAN CORPUSCULAR HEMOGLOBIN 30.2 pg (25.0-35.0); MEAN PLATELET VOLUME 8.9 fl (7.0-11.0); MONO # 0.5 (0.1-0.6); MONO % 5.2 % (1.0-6.0); RBC 2.91 10^6/uL (3.5-6.1); RED CELL DISTRIBUTION WIDTH 17.8 % (11.5-14.5); WHITE BLOOD COUNT 10.2 10^3/ul (4.5-11.0)
[2017-06-26 07:25] LABS: ALB/GLOB RATIO 0.7 (1.1-1.8); ALBUMIN 3.4 g/dL (3.0-4.8); CALCIUM 9.2 mg/dL (8.4-10.5)
[2017-06-26] MEDS: Insulin Reg-LOW-Coverage SC SCH ×4 (08:01→22:00)
[2017-06-26] MEDS: Levothyroxine 50 MCG TAB PO SCH (08:06)
--- NOTE | 2017-06-26 08:26 | PN ---
DATE: 06/25/2017 SUBJECTIVE: An 82-year-old female in the Intensive Care Unit. PHYSICAL EXAMINATION: VITAL SIGNS: Patient has a temperature of 97.5 with pulse is 110, her blood pressure is 109/35, her respiratory rate is 23, oxygen sat is 98% on 2 liters nasal oxygen. GENERAL: She is alert, somewhat lethargic, but communicative. LUNGS: Show bibasilar rhonchi, left more than right. HEART: S1, S2 rhythm. Grade 2/6 systolic murmur. ABDOMEN: Soft, there is some mild abdominal discomfort with positive bowel sounds. EXTREMITIES: Show no evidence of edema. LABORATORY DATA: One blood culture is showing gram-negative rods. She has a WBC of 17.5, RBC of 3.14, hemoglobin 9.5, hematocrit 31, and platelets count 152. The chemistry shows a sodium of 140, potassium 4.5, chloride 96, BUN is 44, and the creatinine is 5.4. Troponin is 2.7. Random blood sugar is 132. The patient is being treated for sepsis with acute diverticulitis, pneumonia, chronic renal failure, elevated troponins with ischemic heart disease, non-insulin dependent diabetes, hypothyroid disease, and chronic obstructive pulmonary disease. She has been placed on Doryx and meropenem by Infectious Disease. She is being followed by Cardiology, the primary care nurse in the ICU and by Cardiology. She will get follow up labs. Nephrology consult is pending. Patient is on dialysis 4 times a week for chronic renal disease. She will continue on her insulin coverage with monitoring of her blood sugar and a consult with GI has been requested as well because of the acute diverticulitis. Shavonne Ascencio MD
--- NOTE | 2017-06-26 08:45 | CON ---
DATE: 06/25/2017 REASON FOR CONSULTATION: History of sepsis, history of recurrent diverticulitis and cholecystitis. HISTORY OF PRESENT ILLNESS: This is an 82-year-old patient with end-stage renal disease, on hemodialysis, was in the [facility] for left ankle fracture, was status post surgery of the left ankle fracture, was transferred because of abdominal pain, cough. PAST MEDICAL HISTORY: The patient has history of diverticulitis and cholecystitis in the past, history of nonsegment WI and pneumonia in the past. At this time, the patient has some cough, shortness of breath and also, has some abdominal discomfort. She has been having this cough, blood tinged sputum, for the last two to three days and had a chest x-ray that showed left upper lobe pneumonia. She has a history of chronic constipation, history of C. diff in the past. The patient had some chronic thickening. The CT scan of the abdomen and pelvis was reported as having mild focal diverticulitis, but the patient does have chronic changes in the colon. Other past medical history significant as above. History of ankle fracture, managed conservatively. Diabetes mellitus, hypothyroidism. SOCIAL HISTORY: Denies smoking, alcohol. ALLERGIES: SHE IS ALLERGIC TO CEFTRIAXONE. FAMILY HISTORY: Noncontributory. REVIEW OF SYSTEMS: Positive as above, other systems reviewed. PHYSICAL EXAMINATION GENERAL: The patient is lying on the bed, not in acute distress. VITAL SIGNS: T-max 101, blood pressure 126/40, respirations 42, O2 saturation 94. HEENT: Atraumatic, anicteric. NECK: Supple. HEART: S1 and S2 heard. LUNGS: Bilateral air entry present, a few scattered rhonchi present. ABDOMEN: Soft. Mild tenderness in the left lower quadrant in the epigastric area. There is no rebound or guarding. EXTREMITIES: No cyanosis, no clubbing. NEUROLOGICAL: Alert, oriented. Moves all the extremities. LABORATORY DATA: Hemoglobin 9.5, hematocrit 31, WBC 17.5, platelets 192,000. Chemistry showed troponin elevated to 2.70. BNP over 171,000. The CT scan of the abdomen and pelvis was reviewed. Has focal diverticulitis reported, but there appears to be some chronic changes, large amount of stool present in the rectum and rectosigmoid area, gallstone present. Blood culture preliminarily showed gram-negative rods. IMPRESSION: This is an 82-year-old patient with history of recurrent diverticulitis, cholecystitis, admitted with cough and small amount of hemoptysis, blood tinged sputum for the past two to three days' time. Lung x-ray showed some consolidation in the left upper lobe. Blood culture, Gram-negative rods. Impression is sepsis. Likely cause to be considered is: 1. Urinary tract infection. 2. Pneumonia. 3. Diverticulitis. 4. cholecystitis Other comorbidities include end-stage renal disease, on hemodialysis; non-ST segment myocardial infarction. The CAT scan findings of the colon appears to be more chronic. The patient does have lung consolidation. RECOMMENDATIONS: Would recommend, 1. Clear liquid diet. 2. Continue the antibiotics as per ID. 3. Stool softeners. We will continue to closely follow up her care and suggest further management based on the clinical course. Ysabel Theodore MD MTDJose J
--- NOTE | 2017-06-26 10:11 | CP.PCM.PN ---
Subjective - Date & Time of Evaluation Date of Evaluation: 06/26/17 Time of Evaluation: 09:30 - Subjective Subjective: Comfortable in bed, less abdominal pain, no fevers, no diarrhea, no vomiting. Objective - Vital Signs/Intake and Output Vital Signs (last 24 hours): Temp Pulse Resp BP Pulse Ox 98.2 F 113 H 20 129/45 L 100 06/26/17 07:50 06/26/17 07:50 06/26/17 07:50 06/26/17 07:50 06/26/17 07:50 - Medications Medications: Current Medications Acetaminophen (Tylenol 325mg Tab) 650 mg PO Q6H PRN PRN Reason: Fever >100.4 F Last Admin: 06/25/17 19:56 Dose: 650 mg Albuterol/Ipratropium (Duoneb 3 Mg/0.5 Mg (3 Ml) Ud) 3 ml IH [id number] [facility] Last Admin: 06/26/17 07:05 Dose: 3 ml Aspirin (Aspirin Chewable) 81 mg PO DAILY [facility] Last Admin: 06/25/17 10:09 Dose: 81 mg Atorvastatin Calcium (Lipitor) 20 mg PO DIN [facility] Last Admin: 06/25/17 17:23 Dose: 20 mg Doxycycline Hyclate (Doryx) 100 mg PO Q12 [facility]ANN PRN Reason: Protocol Last Admin: 06/25/17 21:48 Dose: 100 mg Guaifenesin/Dextromethorphan (Robitussin Dm) 5 ml PO Q4H PRN PRN Reason: Cough Meropenem 500 mg/ Sodium (Chloride) 50 mls @ 100 mls/hr IVPB 1800 [facility] PRN Reason: Protocol Last Admin: 06/25/17 17:24 Dose: 100 mls/hr Insulin Human Regular (Humulin R Low) 0 units SC ACHS [facility] PRN Reason: Protocol Last Admin: 06/26/17 08:01 Dose: Not Given Isosorbide Mononitrate (Imdur Er) 30 mg PO DAILY [facility] Last Admin: 06/25/17 10:10 Dose: 30 mg Levothyroxine Sodium (Synthroid) 50 mcg PO ACB [facility] Last Admin: 06/26/17 08:06 Dose: 50 mcg Lidocaine/Prilocaine (Emla) 1 gm TOP MWF PRN PRN Reason: FOR AV SHUNT NEEDLE INSERTION Metoprolol Tartrate (Lopressor) 25 mg PO BID RUTHANN Last Admin: 06/25/17 17:23 Dose: 25 mg - Labs Labs: 06/26/17 05:45 06/26/17 05:45 PT 14.0 SECONDS (9.4-12.5) H 06/24/17 13:30 INR 1.22 (0.93-1.08) H 06/24/17 13:30 APTT 28.9 Seconds (25.1-36.5) 06/24/17 13:30 - Constitutional Appears: Chronically Ill - Head Exam Head Exam: NORMAL INSPECTION - ENT Exam ENT Exam: Mucous Membranes Moist - Neck Exam Neck Exam: absent: Meningismus - Respiratory Exam Respiratory Exam: Decreased Breath Sounds - Cardiovascular Exam Cardiovascular Exam: +S1, +S2 - GI/Abdominal Exam GI & Abdominal Exam: Soft. absent: Tenderness Assessment and Plan - Assessment and Plan (Free Text) Plan: Assessment sepsis due to gram negative bacilli bacteremia probably from acute left sided diverticulitis, consider left upper lobe HCAP history of C. diff. associated diarrhea S/P severe sepsis with acute sigmoid diverticulitis and acute cholecystitis history of acute NSTEMI history of sepsis due to acute descending colon diverticulitis and bilateral lobe healthcare-associated pneumonia history of healthcare-associated pneumonia (right upper lobe, bilateral lower lobes) HTN DM CAD with chronic CHF ESRD on HD Plan continue Merrem and added doxycycline (day 3) and has been given a dose of IV vancomycin pending identification and sensitivities of the gram negative bacilli in the blood will continue to monitor clinically
[2017-06-26 10:50] LABS: VENOUS BLOOD GAS BASE EXCESS 4.4 mmol/L (0.0-2.0); VENOUS BLOOD GAS PO2 88 mm/Hg (30-55); VENOUS BLOOD PH 7.53 (7.32-7.43)
--- NOTE | 2017-06-26 11:27 | CARD ---
APPROVED REPORT EXAM: Two-dimensional and M-mode echocardiogram with Doppler and color Doppler. Other Information Quality : AverageRhythm : INDICATION LV Function:SystolicDiastolic , NSTEMI 2D DIMENSIONS Left Atrium (2D)4.2 (1.6-4.0cm)IVSd1.0 (0.7-1.1cm) LVDd4.7 (3.9-5.9cm)LVOT Diameter2.1 (1.8-2.4cm) PWd1.1 (0.7-1.1cm)LVDs4.2 (2.5-4.0cm) FS (%) 11.9 %LVEF (%)25.0 (>50%) M-Mode DIMENSIONS Aortic Root2.60 (2.2-3.7cm)Aortic Cusp Exc.0.90 (1.5-2.0cm) Aortic Valve AoV Peak Uebtwgzm790.0cm/sAoV VTI44.7cmAO Peak GR.25mmHg LVOT Peak Kjgloafk45.9cm/sLVOT VTI12.70cmAO Mean GR.12mmHg SHYLA (VMAX)1.33gi2TGI (VTI)0.98cm2 Mitral Valve E/A ratio0.0 TDI E/Lateral E'0.0E/Medial E'0.0 Tricuspid Valve TR Peak [id number]/sRAP [id number] Peak Gr.38mmHg [id number] LEFT VENTRICLE The left ventricle is normal size. There is normal left ventricular wall thickness. Left ventricle systolic function is moderately to severely impaired. The Ejection Fraction is 20-25%. There is severe global hypokinesis. RIGHT VENTRICLE The right ventricle is normal size. ATRIA The left atrium is mildly dilated. The right atrium size is normal. The interatrial septum is intact with no evidence for an atrial septal defect. AORTIC VALVE The aortic valve is moderately calcified. MITRAL VALVE The mitral valve is moderately thickened but opens well. Mitral annular calcification is moderate. Mitral regurgitation is moderate to severe. TRICUSPID VALVE The tricuspid valve is normal in structure. There is moderate tricuspid regurgitation. There is moderate pulmonary hypertension. PULMONIC VALVE The pulmonic valve is not well visualized. GREAT VESSELS The aortic root is normal in size. PERICARDIAL EFFUSION There is no pericardial effusion. <Conclusion> The left ventricle is normal size. There is normal left ventricular wall thickness. Left ventricle systolic function is moderately to severely impaired. The Ejection Fraction is 20-25%. There is severe global hypokinesis. The aortic valve is moderately calcified. Aortic sclerosis vs. mild . Mitral regurgitation is moderate to severe. There is moderate tricuspid regurgitation. There is moderate pulmonary hypertension.
--- NOTE | 2017-06-26 11:47 | CP.CCUPN ---
<Jose A Daniels - Last Filed: 06/26/17 11:42> CCU Subjective - Physician Review Subjective (Free Text): Patient seen and examined at bedside. Patient states no trouble breathing this morning, but admits to worsening of abdominal pain. Denies chest pain, shortness of breath, nausea, vomiting, diarrhea, fever, chills. CCU Objective - Vital Signs / Intake & Output Vital Signs (Last 4 hours): Vital Signs Temp Pulse Resp BP Pulse Ox 06/26/17 11:28 98.2 F 79 20 100 06/26/17 10:00 118 H 23 122/47 L 86 L 06/26/17 09:31 115 H 142/61 06/26/17 09:30 115 H 19 100 06/26/17 09:00 113 H 24 142/61 100 06/26/17 08:30 112 H 32 H 96 06/26/17 08:00 119/45 L 06/26/17 07:59 112 H 14 100 06/26/17 07:50 98.2 F 113 H 20 129/45 L 100 Intake and Output (Last 8hrs): Intake & Output 06/25/17 06/26/17 06/26/17 22:59 06:59 14:59 Intake Total 830 Output Total 2000 Balance -1170 Weight 120 lb 116 lb 11.2 oz Intake: IV 70 Right Forearm 70 Oral 760 Output: Urine 0 Urine, Voided 0 Other 2000 Other: # Bowel Movements 2 - Physical Exam Head: Positive for: Atraumatic, Normocephalic Mouth: Positive for: Dry Pharnyx: Negative for: ERYTHEMA, EXUDATE, Strider Respiratory/Chest: Positive for: Good Air Exchange, Decreased Breath Sounds Cardiovascular: Positive for: Murmurs, Irregular Rhythm, Tachycardic Abdomen: Positive for: Tenderness (Periumbilical ). Negative for: Peritoneal Signs, Rebound, Guarding Rectal: Negative for: Gross Blood Back: Positive for: Paraspinal Tenderness Upper Extremity: Negative for: Edema Lower Extremity: Negative for: Edema Neurological: Positive for: Motor Func Grossly Intact Skin: Positive for: Warm, Dry Psychiatric: Positive for: Alert, Oriented x 3, Normal Insight - Medications Active Medications: Active Medications Generic Name Dose Route Start Last Admin Trade Name Freq PRN Reason Stop Dose Admin Acetaminophen 650 mg 06/24/17 18:04 06/26/17 11:17 Tylenol 325mg Tab PO 650 mg Q6H PRN Administration Fever >100.4 F Albuterol/Ipratropium 3 ml 06/24/17 20:00 06/26/17 07:05 Duoneb 3 Mg/0.5 Mg (3 Ml) Ud IH 3 ml [id number] RUTHANN Administration Aspirin 81 mg 06/25/17 10:00 06/26/17 09:31 Aspirin Chewable PO 81 mg DAILY RUTHANN Administration Atorvastatin Calcium 20 mg 06/25/17 17:00 06/25/17 17:23 Lipitor PO 20 mg DIN RUTHANN Administration Doxycycline Hyclate 100 mg 06/25/17 10:00 06/26/17 09:31 Doryx PO 100 mg Q12 RUTHANN Administration Protocol Guaifenesin/Dextromethorphan 5 ml 06/24/17 18:09 Robitussin Dm PO Q4H PRN Cough Meropenem 500 mg/ Sodium 50 mls @ 100 mls/hr 06/25/17 08:18 06/25/17 17:24 Chloride IVPB 100 mls/hr 1800 RUTHANN Administration Protocol Insulin Human Regular 0 units 06/24/17 22:00 06/26/17 11:29 Humulin R Low SC Not Given ACHS [facility] Protocol Isosorbide Mononitrate 30 mg 06/25/17 10:00 06/26/17 09:31 Imdur Er PO 30 mg DAILY RUTHANN Administration Levothyroxine Sodium 50 mcg 06/26/17 07:30 06/26/17 08:06 Synthroid PO 50 mcg ACB RUTHANN Administration Lidocaine/Prilocaine 1 gm 06/25/17 12:49 Emla TOP MWF PRN FOR AV SHUNT NEEDLE INSERTION Metoprolol Tartrate 25 mg 06/25/17 10:00 06/26/17 09:31 Lopressor PO 25 mg BID RUTHANN Administration - Patient Studies Lab Studies: Lab Studies 06/26/17 06/26/17 06/26/17 Range/Units 11:27 10:30 07:31 WBC (4.5-11.0) 10^3/ul RBC (3.5-6.1) 10^6/uL Hgb (12.0-16.0) g/dL Hct (36.0-48.0) % MCV (80.0-105.0) fl MCH (25.0-35.0) pg MCHC (31.0-37.0) g/dl RDW (11.5-14.5) % Plt Count (120.0-450.0) 10^3/uL MPV (7.0-11.0) fl Gran % (50.0-68.0) % Lymph % (Auto) (22.0-35.0) % Webster % (Auto) (1.0-6.0) % Eos % (Auto) (1.5-5.0) % Baso % (Auto) (0.0-3.0) % Gran # (1.4-6.5) Lymph # (Auto) (1.2-3.4) Webster # (Auto) (0.1-0.6) Eos # (Auto) (0.0-0.7) Baso # (Auto) (0.0-2.0) K/mm3 pO2 88 H (30-55) mm/Hg VBG pH 7.53 H (7.32-7.43) VBG pCO2 32.0 L (40-60) VBG HCO3 26.7 (21-28) mmol/l VBG Total CO2 27.7 (22-28) mmol.L VBG O2 Sat (Calc) 98.2 H (40-65) % VBG Base Excess 4.4 H (0.0-2.0) mmol/L VBG Potassium 4.2 (3.6-5.2) mmol/L Glucose 196 H (65-105) mg/dl Lactate 2.0 (0.7-2.1) mmol/L FiO2 21.0 % Sodium 131.0 L (132-148) mmol/L Potassium (3.6-5.0) mmol/L Chloride 98.0 (98-107) mmol/L Carbon Dioxide (21-33) mmol/L Anion Gap (10-20) BUN (7-21) mg/dL Creatinine (0.7-1.2) mg/dl Est GFR ( Amer) Est GFR (Non-Af Amer) POC Glucose (mg/dL) 148 H 142 H (65-110) mg/dL Random Glucose (70-110) mg/dL Calcium (8.4-10.5) mg/dL Phosphorus (2.5-4.5) mg/dL Magnesium (1.7-2.2) mg/dL Total Bilirubin (0.2-1.3) mg/dL AST (14-36) U/L ALT (7-56) U/L Alkaline Phosphatase (38-126) U/L Lactate Dehydrogenase (333-699) U/L Total Creatine Kinase (35-230) U/L Troponin I ng/mL Total Protein (5.8-8.3) g/dL Albumin (3.0-4.8) g/dL Globulin gm/dL Albumin/Globulin Ratio (1.1-1.8) Venous Blood Potassium 4.2 (3.6-5.2) mmol/L 06/26/17 06/26/17 06/25/17 Range/Units 05:45 05:45 21:57 WBC 10.2 D (4.5-11.0) 10^3/ul RBC 2.91 L (3.5-6.1) 10^6/uL Hgb 8.8 L (12.0-16.0) g/dL Hct 28.4 L (36.0-48.0) % MCV 97.6 (80.0-105.0) fl MCH 30.2 (25.0-35.0) pg MCHC 31.0 (31.0-37.0) g/dl RDW 17.8 H (11.5-14.5) % Plt Count 131 (120.0-450.0) 10^3/uL MPV 8.9 (7.0-11.0) fl Gran % 85.1 H (50.0-68.0) % Lymph % (Auto) 9.5 L (22.0-35.0) % Webster % (Auto) 5.2 (1.0-6.0) % Eos % (Auto) 0.2 L (1.5-5.0) % Baso % (Auto) 0.0 (0.0-3.0) % Gran # 8.64 H (1.4-6.5) Lymph # (Auto) 1.0 L (1.2-3.4) Webster # (Auto) 0.5 (0.1-0.6) Eos # (Auto) 0.0 (0.0-0.7) Baso # (Auto) 0.00 (0.0-2.0) K/mm3 pO2 (30-55) mm/Hg VBG pH (7.32-7.43) VBG pCO2 (40-60) VBG HCO3 (21-28) mmol/l VBG Total CO2 (22-28) mmol.L VBG O2 Sat (Calc) (40-65) % VBG Base Excess (0.0-2.0) mmol/L VBG Potassium (3.6-5.2) mmol/L Glucose (65-105) mg/dl Lactate (0.7-2.1) mmol/L FiO2 % Sodium 136 (132-148) mmol/L Potassium 4.1 (3.6-5.0) mmol/L Chloride 95 L (98-107) mmol/L Carbon Dioxide 28 (21-33) mmol/L Anion Gap 16 (10-20) BUN 26 H (7-21) mg/dL Creatinine 3.6 H (0.7-1.2) mg/dl Est GFR ( Amer) 15 Est GFR (Non-Af Amer) 12 POC Glucose (mg/dL) 232 H (65-110) mg/dL Random Glucose 159 H (70-110) mg/dL Calcium 9.2 (8.4-10.5) mg/dL Phosphorus (2.5-4.5) mg/dL Magnesium (1.7-2.2) mg/dL Total Bilirubin 0.9 (0.2-1.3) mg/dL AST 42 H D (14-36) U/L ALT 13 (7-56) U/L Alkaline Phosphatase 65 (38-126) U/L Lactate Dehydrogenase (333-699) U/L Total Creatine Kinase (35-230) U/L Troponin I ng/mL Total Protein 8.0 (5.8-8.3) g/dL Albumin 3.4 (3.0-4.8) g/dL Globulin 4.6 gm/dL Albumin/Globulin Ratio 0.7 L (1.1-1.8) Venous Blood Potassium (3.6-5.2) mmol/L 06/25/17 06/25/17 06/25/17 Range/Units 16:51 16:24 11:50 WBC (4.5-11.0) 10^3/ul RBC (3.5-6.1) 10^6/uL Hgb (12.0-16.0) g/dL Hct (36.0-48.0) % MCV (80.0-105.0) fl MCH (25.0-35.0) pg MCHC (31.0-37.0) g/dl RDW (11.5-14.5) % Plt Count (120.0-450.0) 10^3/uL MPV (7.0-11.0) fl Gran % (50.0-68.0) % Lymph % (Auto) (22.0-35.0) % Webster % (Auto) (1.0-6.0) % Eos % (Auto) (1.5-5.0) % Baso % (Auto) (0.0-3.0) % Gran # (1.4-6.5) Lymph # (Auto) (1.2-3.4) Webster # (Auto) (0.1-0.6) Eos # (Auto) (0.0-0.7) Baso # (Auto) (0.0-2.0) K/mm3 pO2 (30-55) mm/Hg VBG pH (7.32-7.43) VBG pCO2 (40-60) VBG HCO3 (21-28) mmol/l VBG Total CO2 (22-28) mmol.L VBG O2 Sat (Calc) (40-65) % VBG Base Excess (0.0-2.0) mmol/L VBG Potassium (3.6-5.2) mmol/L Glucose (65-105) mg/dl Lactate (0.7-2.1) mmol/L FiO2 % Sodium (132-148) mmol/L Potassium (3.6-5.0) mmol/L Chloride (98-107) mmol/L Carbon Dioxide (21-33) mmol/L Anion Gap (10-20) BUN (7-21) mg/dL Creatinine (0.7-1.2) mg/dl Est GFR ( Amer) Est GFR (Non-Af Amer) POC Glucose (mg/dL) 114 H (65-110) mg/dL Random Glucose (70-110) mg/dL Calcium (8.4-10.5) mg/dL Phosphorus 3.8 (2.5-4.5) mg/dL Magnesium 2.0 (1.7-2.2) mg/dL Total Bilirubin (0.2-1.3) mg/dL AST (14-36) U/L ALT (7-56) U/L Alkaline Phosphatase (38-126) U/L Lactate Dehydrogenase 425 (333-699) U/L Total Creatine Kinase 34 L (35-230) U/L Troponin I 1.55 H* D ng/mL Total Protein (5.8-8.3) g/dL Albumin (3.0-4.8) g/dL Globulin gm/dL Albumin/Globulin Ratio (1.1-1.8) Venous Blood Potassium (3.6-5.2) mmol/L 06/25/17 Range/Units 11:01 WBC (4.5-11.0) 10^3/ul RBC (3.5-6.1) 10^6/uL Hgb (12.0-16.0) g/dL Hct (36.0-48.0) % MCV (80.0-105.0) fl MCH (25.0-35.0) pg MCHC (31.0-37.0) g/dl RDW (11.5-14.5) % Plt Count (120.0-450.0) 10^3/uL MPV (7.0-11.0) fl Gran % (50.0-68.0) % Lymph % (Auto) (22.0-35.0) % Webster % (Auto) (1.0-6.0) % Eos % (Auto) (1.5-5.0) % Baso % (Auto) (0.0-3.0) % Gran # (1.4-6.5) Lymph # (Auto) (1.2-3.4) Webster # (Auto) (0.1-0.6) Eos # (Auto) (0.0-0.7) Baso # (Auto) (0.0-2.0) K/mm3 pO2 (30-55) mm/Hg VBG pH (7.32-7.43) VBG pCO2 (40-60) VBG HCO3 (21-28) mmol/l VBG Total CO2 (22-28) mmol.L VBG O2 Sat (Calc) (40-65) % VBG Base Excess (0.0-2.0) mmol/L VBG Potassium (3.6-5.2) mmol/L Glucose (65-105) mg/dl Lactate (0.7-2.1) mmol/L FiO2 % Sodium (132-148) mmol/L Potassium (3.6-5.0) mmol/L Chloride (98-107) mmol/L Carbon Dioxide (21-33) mmol/L Anion Gap (10-20) BUN (7-21) mg/dL Creatinine (0.7-1.2) mg/dl Est GFR ( Amer) Est GFR (Non-Af Amer) POC Glucose (mg/dL) 189 H (65-110) mg/dL Random Glucose (70-110) mg/dL Calcium (8.4-10.5) mg/dL Phosphorus (2.5-4.5) mg/dL Magnesium (1.7-2.2) mg/dL Total Bilirubin (0.2-1.3) mg/dL AST (14-36) U/L ALT (7-56) U/L Alkaline Phosphatase (38-126) U/L Lactate Dehydrogenase (333-699) U/L Total Creatine Kinase (35-230) U/L Troponin I ng/mL Total Protein (5.8-8.3) g/dL Albumin (3.0-4.8) g/dL Globulin gm/dL Albumin/Globulin Ratio (1.1-1.8) Venous Blood Potassium (3.6-5.2) mmol/L Laboratory Results - last 24 hr 06/25/17 06/25/17 06/25/17 11:01 11:50 16:24 WBC RBC Hgb Hct MCV MCH MCHC RDW Plt Count MPV Gran % Lymph % (Auto) Webster % (Auto) Eos % (Auto) Baso % (Auto) Gran # Lymph # (Auto) Webster # (Auto) Eos # (Auto) Baso # (Auto) pO2 VBG pH VBG pCO2 VBG HCO3 VBG Total CO2 VBG O2 Sat (Calc) VBG Base Excess VBG Potassium Glucose Lactate FiO2 Sodium Potassium Chloride Carbon Dioxide Anion Gap BUN Creatinine Est GFR ( Amer) Est GFR (Non-Af Amer) POC Glucose (mg/dL) 189 H 114 H Random Glucose Calcium Phosphorus 3.8 Magnesium 2.0 Total Bilirubin AST ALT Alkaline Phosphatase Lactate Dehydrogenase Total Creatine Kinase Troponin I Total Protein Albumin Globulin Albumin/Globulin Ratio Venous Blood Potassium 06/25/17 06/25/17 06/26/17 16:51 21:57 05:45 WBC 10.2 D RBC 2.91 L Hgb 8.8 L Hct 28.4 L MCV 97.6 MCH 30.2 MCHC 31.0 RDW 17.8 H Plt Count 131 MPV 8.9 Gran % 85.1 H Lymph % (Auto) 9.5 L Webster % (Auto) 5.2 Eos % (Auto) 0.2 L Baso % (Auto) 0.0 Gran # 8.64 H Lymph # (Auto) 1.0 L Webster # (Auto) 0.5 Eos # (Auto) 0.0 Baso # (Auto) 0.00 pO2 VBG pH VBG pCO2 VBG HCO3 VBG Total CO2 VBG O2 Sat (Calc) VBG Base Excess VBG Potassium Glucose Lactate FiO2 Sodium Potassium Chloride Carbon Dioxide Anion Gap BUN Creatinine Est GFR ( Amer) Est GFR (Non-Af Amer) POC Glucose (mg/dL) 232 H Random Glucose Calcium Phosphorus Magnesium Total Bilirubin AST ALT Alkaline Phosphatase Lactate Dehydrogenase 425 Total Creatine Kinase 34 L Troponin I 1.55 H* D Total Protein Albumin Globulin Albumin/Globulin Ratio Venous Blood Potassium 06/26/17 06/26/17 06/26/17 05:45 07:31 10:30 WBC RBC Hgb Hct MCV MCH MCHC RDW Plt Count MPV Gran % Lymph % (Auto) Webster % (Auto) Eos % (Auto) Baso % (Auto) Gran # Lymph # (Auto) Webster # (Auto) Eos # (Auto) Baso # (Auto) pO2 88 H VBG pH 7.53 H VBG pCO2 32.0 L VBG HCO3 26.7 VBG Total CO2 27.7 VBG O2 Sat (Calc) 98.2 H VBG Base Excess 4.4 H VBG Potassium 4.2 Glucose 196 H Lactate 2.0 FiO2 21.0 Sodium 136 131.0 L Potassium 4.1 Chloride 95 L 98.0 Carbon Dioxide 28 Anion Gap 16 BUN 26 H Creatinine 3.6 H Est GFR ( Amer) 15 Est GFR (Non-Af Amer) 12 POC Glucose (mg/dL) 142 H Random Glucose 159 H Calcium 9.2 Phosphorus Magnesium Total Bilirubin 0.9 AST 42 H D ALT 13 Alkaline Phosphatase 65 Lactate Dehydrogenase Total Creatine Kinase Troponin I Total Protein 8.0 Albumin 3.4 Globulin 4.6 Albumin/Globulin Ratio 0.7 L Venous Blood Potassium 4.2 06/26/17 11:27 WBC RBC Hgb Hct MCV MCH MCHC RDW Plt Count MPV Gran % Lymph % (Auto) Webster % (Auto) Eos % (Auto) Baso % (Auto) Gran # Lymph # (Auto) Webster # (Auto) Eos # (Auto) Baso # (Auto) pO2 VBG pH VBG pCO2 VBG HCO3 VBG Total CO2 VBG O2 Sat (Calc) VBG Base Excess VBG Potassium Glucose Lactate FiO2 Sodium Potassium Chloride Carbon Dioxide Anion Gap BUN Creatinine Est GFR ( Amer) Est GFR (Non-Af Amer) POC Glucose (mg/dL) 148 H Random Glucose Calcium Phosphorus Magnesium Total Bilirubin AST ALT Alkaline Phosphatase Lactate Dehydrogenase Total Creatine Kinase Troponin I Total Protein Albumin Globulin Albumin/Globulin Ratio Venous Blood Potassium Fingerstick Blood Sugar Results: 148 Critical Care Progress Note - Nutrition Nutrition: Nutrition Category Date Time Status Liquid Diet [DIET] Diets 06/26/17 Lunch Ordered Assessment/Plan - Assessment and Plan (Free Text) Plan: 82 year old female with past medical history of ESRD, CHF, CAD, DM, diverticulitis, and HTN presents with severe sepsis with gram negative larisa bactermia in the setting of multi-organ dysfunction syndrome complicated by HCAP , NSTEMI, and diverticulitis. Will obtain new CT to evaluate chest and abdomen secondary to worsening abdominal pain. No treatment needed for NSTEMI at this time as per cardiology. Will continue antibiotics. Dialysis scheduled for tomorrow. Will order follow up VBG shock panel. Neuro: AAO x3 No deficits Cardio: NSTEMI, no further treatment Troponins downtrending Echo shows EF of 25%, with severe systolic dysfunction. See full report. Hemodynamically stable Maintain MAP >65 Cardiology consulted, Dr. Agustin Coffman: HCAP Merrem and Doxy Duonebs prn Maintain O2 sat >90% GI: Protonix CT scan ordered Heart healthy diet Nephro: Dialysis M/W/F/Sat Maintain euvolemia ID: Merrem and Doxy VBG shock panel ordered Gram negative rods in blood culture Afebrile, leukocytosis improving Bhagvíctor, PGY-2 <Joe Seo - Last Filed: 06/26/17 14:31> CCU Objective - Vital Signs / Intake & Output Vital Signs (Last 4 hours): Vital Signs Temp Pulse Resp BP Pulse Ox 06/26/17 11:58 98 H 06/26/17 11:30 88 26 H 100 06/26/17 11:28 98.2 F 79 20 100 06/26/17 11:13 103 H 15 06/26/17 11:12 104 H 06/26/17 11:11 92/30 L 06/26/17 11:10 104 H 32 H 06/26/17 10:30 107 H 29 H 100 Intake and Output (Last 8hrs): Intake & Output 06/25/17 06/26/17 06/26/17 22:59 06:59 14:59 Intake Total 830 Output Total 2000 Balance -1170 Weight 120 lb 116 lb 11.2 oz Intake: IV 70 Right Forearm 70 Oral 760 Output: Urine 0 Urine, Voided 0 Other 1999 Other: # Bowel Movements 2 - Medications Active Medications: Active Medications Generic Name Dose Route Start Last Admin Trade Name Freq PRN Reason Stop Dose Admin Acetaminophen 650 mg 06/24/17 18:04 06/26/17 11:17 Tylenol 325mg Tab PO 650 mg Q6H PRN Administration Fever >100.4 F Albuterol/Ipratropium 3 ml 06/24/17 20:00 06/26/17 13:13 Duoneb 3 Mg/0.5 Mg (3 Ml) Ud IH 3 ml [id number] RUTHANN Administration Aspirin 81 mg 06/25/17 10:00 06/26/17 09:31 Aspirin Chewable PO 81 mg DAILY RUTHANN Administration Atorvastatin Calcium 20 mg 06/25/17 17:00 06/25/17 17:23 Lipitor PO 20 mg DIN RUTHANN Administration Doxycycline Hyclate 100 mg 06/25/17 10:00 06/26/17 09:31 Doryx PO 100 mg Q12 RUTHANN Administration Protocol Guaifenesin/Dextromethorphan 5 ml 06/24/17 18:09 Robitussin Dm PO Q4H PRN Cough Meropenem 500 mg/ Sodium 50 mls @ 100 mls/hr 06/25/17 08:18 06/25/17 17:24 Chloride IVPB 100 mls/hr 1800 RUTHANN Administration Protocol Sodium Chloride 1,000 mls @ 999 mls/hr 06/26/17 14:23 Sodium Chloride 0.9% IV 06/26/17 15:23 .[id number] STA Insulin Human Regular 0 units 06/24/17 22:00 06/26/17 11:29 Humulin R Low SC Not Given ACHS RUTHANN Protocol Isosorbide Mononitrate 30 mg 06/25/17 10:00 06/26/17 09:31 Imdur Er PO 30 mg DAILY RUTHANN Administration Levothyroxine Sodium 50 mcg 06/26/17 07:30 06/26/17 08:06 Synthroid PO 50 mcg ACB RUTHANN Administration Lidocaine/Prilocaine 1 gm 06/25/17 12:49 Emla TOP MWF PRN FOR AV SHUNT NEEDLE INSERTION Metoprolol Tartrate 25 mg 06/25/17 10:00 06/26/17 09:31 Lopressor PO 25 mg BID RUTHANN Administration Pantoprazole Sodium 40 mg 06/27/17 06:00 Protonix Ec Tab PO 0600 RUTHANN - Patient Studies Lab Studies: Lab Studies 06/26/17 06/26/17 06/26/17 Range/Units 11:27 10:30 07:31 WBC (4.5-11.0) 10^3/ul RBC (3.5-6.1) 10^6/uL Hgb (12.0-16.0) g/dL Hct (36.0-48.0) % MCV (80.0-105.0) fl MCH (25.0-35.0) pg MCHC (31.0-37.0) g/dl RDW (11.5-14.5) % Plt Count (120.0-450.0) 10^3/uL MPV (7.0-11.0) fl Gran % (50.0-68.0) % Lymph % (Auto) (22.0-35.0) % Webster % (Auto) (1.0-6.0) % Eos % (Auto) (1.5-5.0) % Baso % (Auto) (0.0-3.0) % Gran # (1.4-6.5) Lymph # (Auto) (1.2-3.4) Webster # (Auto) (0.1-0.6) Eos # (Auto) (0.0-0.7) Baso # (Auto) (0.0-2.0) K/mm3 pO2 88 H (30-55) mm/Hg VBG pH 7.53 H (7.32-7.43) VBG pCO2 32.0 L (40-60) VBG HCO3 26.7 (21-28) mmol/l VBG Total CO2 27.7 (22-28) mmol.L VBG O2 Sat (Calc) 98.2 H (40-65) % VBG Base Excess 4.4 H (0.0-2.0) mmol/L VBG Potassium 4.2 (3.6-5.2) mmol/L Glucose 196 H (65-105) mg/dl Lactate 2.0 (0.7-2.1) mmol/L FiO2 21.0 % Sodium 131.0 L (132-148) mmol/L Potassium (3.6-5.0) mmol/L Chloride 98.0 (98-107) mmol/L Carbon Dioxide (21-33) mmol/L Anion Gap (10-20) BUN (7-21) mg/dL Creatinine (0.7-1.2) mg/dl Est GFR ( Amer) Est GFR (Non-Af Amer) POC Glucose (mg/dL) 148 H 142 H (65-110) mg/dL Random Glucose (70-110) mg/dL Calcium (8.4-10.5) mg/dL Total Bilirubin (0.2-1.3) mg/dL AST (14-36) U/L ALT (7-56) U/L Alkaline Phosphatase (38-126) U/L Lactate Dehydrogenase (333-699) U/L Total Creatine Kinase (35-230) U/L Troponin I ng/mL Total Protein (5.8-8.3) g/dL Albumin (3.0-4.8) g/dL Globulin gm/dL Albumin/Globulin Ratio (1.1-1.8) Venous Blood Potassium 4.2 (3.6-5.2) mmol/L 06/26/17 06/26/1706/25/18 Range/Units 05:45 05:45 21:57 WBC 10.2 D (4.5-11.0) 10^3/ul RBC 2.91 L (3.5-6.1) 10^6/uL Hgb 8.8 L (12.0-16.0) g/dL Hct 28.4 L (36.0-48.0) % MCV 97.6 (80.0-105.0) fl MCH 30.2 (25.0-35.0) pg MCHC 31.0 (31.0-37.0) g/dl RDW 17.8 H (11.5-14.5) % Plt Count 131 (120.0-450.0) 10^3/uL MPV 8.9 (7.0-11.0) fl Gran % 85.1 H (50.0-68.0) % Lymph % (Auto) 9.5 L (22.0-35.0) % Webster % (Auto) 5.2 (1.0-6.0) % Eos % (Auto) 0.2 L (1.5-5.0) % Baso % (Auto) 0.0 (0.0-3.0) % Gran # 8.64 H (1.4-6.5) Lymph # (Auto) 1.0 L (1.2-3.4) Webster # (Auto) 0.5 (0.1-0.6) Eos # (Auto) 0.0 (0.0-0.7) Baso # (Auto) 0.00 (0.0-2.0) K/mm3 pO2 (30-55) mm/Hg VBG pH (7.32-7.43) VBG pCO2 (40-60) VBG HCO3 (21-28) mmol/l VBG Total CO2 (22-28) mmol.L VBG O2 Sat (Calc) (40-65) % VBG Base Excess (0.0-2.0) mmol/L VBG Potassium (3.6-5.2) mmol/L Glucose (65-105) mg/dl Lactate (0.7-2.1) mmol/L FiO2 % Sodium 136 (132-148) mmol/L Potassium 4.1 (3.6-5.0) mmol/L Chloride 95 L (98-107) mmol/L Carbon Dioxide 28 (21-33) mmol/L Anion Gap 16 (10-20) BUN 26 H (7-21) mg/dL Creatinine 3.6 H (0.7-1.2) mg/dl Est GFR ( Amer) 15 Est GFR (Non-Af Amer) 12 POC Glucose (mg/dL) 232 H (65-110) mg/dL Random Glucose 159 H (70-110) mg/dL Calcium 9.2 (8.4-10.5) mg/dL Total Bilirubin 0.9 (0.2-1.3) mg/dL AST 42 H D (14-36) U/L ALT 13 (7-56) U/L Alkaline Phosphatase 65 (38-126) U/L Lactate Dehydrogenase (333-699) U/L Total Creatine Kinase (35-230) U/L Troponin I ng/mL Total Protein 8.0 (5.8-8.3) g/dL Albumin 3.4 (3.0-4.8) g/dL Globulin 4.6 gm/dL Albumin/Globulin Ratio 0.7 L (1.1-1.8) Venous Blood Potassium (3.6-5.2) mmol/L 06/25/17 06/25/17 06/25/17 Range/Units 16:51 16:24 11:01 WBC (4.5-11.0) 10^3/ul RBC (3.5-6.1) 10^6/uL Hgb (12.0-16.0) g/dL Hct (36.0-48.0) % MCV (80.0-105.0) fl MCH (25.0-35.0) pg MCHC (31.0-37.0) g/dl RDW (11.5-14.5) % Plt Count (120.0-450.0) 10^3/uL MPV (7.0-11.0) fl Gran % (50.0-68.0) % Lymph % (Auto) (22.0-35.0) % Webster % (Auto) (1.0-6.0) % Eos % (Auto) (1.5-5.0) % Baso % (Auto) (0.0-3.0) % Gran # (1.4-6.5) Lymph # (Auto) (1.2-3.4) Webster # (Auto) (0.1-0.6) Eos # (Auto) (0.0-0.7) Baso # (Auto) (0.0-2.0) K/mm3 pO2 (30-55) mm/Hg VBG pH (7.32-7.43) VBG pCO2 (40-60) VBG HCO3 (21-28) mmol/l VBG Total CO2 (22-28) mmol.L VBG O2 Sat (Calc) (40-65) % VBG Base Excess (0.0-2.0) mmol/L VBG Potassium (3.6-5.2) mmol/L Glucose (65-105) mg/dl Lactate (0.7-2.1) mmol/L FiO2 % Sodium (132-148) mmol/L Potassium (3.6-5.0) mmol/L Chloride (98-107) mmol/L Carbon Dioxide (21-33) mmol/L Anion Gap (10-20) BUN (7-21) mg/dL Creatinine (0.7-1.2) mg/dl Est GFR ( Amer) Est GFR (Non-Af Amer) POC Glucose (mg/dL) 114 H 189 H (65-110) mg/dL Random Glucose (70-110) mg/dL Calcium (8.4-10.5) mg/dL Total Bilirubin (0.2-1.3) mg/dL AST (14-36) U/L ALT (7-56) U/L Alkaline Phosphatase (38-126) U/L Lactate Dehydrogenase 425 (333-699) U/L Total Creatine Kinase 34 L (35-230) U/L Troponin I 1.55 H* D ng/mL Total Protein (5.8-8.3) g/dL Albumin (3.0-4.8) g/dL Globulin gm/dL Albumin/Globulin Ratio (1.1-1.8) Venous Blood Potassium (3.6-5.2) mmol/L Laboratory Results - last 24 hr 06/25/17 06/25/17 06/25/17 11:01 16:24 16:51 WBC RBC Hgb Hct MCV MCH MCHC RDW Plt Count MPV Gran % Lymph % (Auto) Webster % (Auto) Eos % (Auto) Baso % (Auto) Gran # Lymph # (Auto) Webster # (Auto) Eos # (Auto) Baso # (Auto) pO2 VBG pH VBG pCO2 VBG HCO3 VBG Total CO2 VBG O2 Sat (Calc) VBG Base Excess VBG Potassium Glucose Lactate FiO2 Sodium Potassium Chloride Carbon Dioxide Anion Gap BUN Creatinine Est GFR ( Amer) Est GFR (Non-Af Amer) POC Glucose (mg/dL) 189 H 114 H Random Glucose Calcium Total Bilirubin AST ALT Alkaline Phosphatase Lactate Dehydrogenase 425 Total Creatine Kinase 34 L Troponin I 1.55 H* D Total Protein Albumin Globulin Albumin/Globulin Ratio Venous Blood Potassium 06/25/17 06/26/17 06/26/17 21:57 05:45 05:45 WBC 10.2 D RBC 2.91 L Hgb 8.8 L Hct 28.4 L MCV 97.6 MCH 30.2 MCHC 31.0 RDW 17.8 H Plt Count 131 MPV 8.9 Gran % 85.1 H Lymph % (Auto) 9.5 L Webster % (Auto) 5.2 Eos % (Auto) 0.2 L Baso % (Auto) 0.0 Gran # 8.64 H Lymph # (Auto) 1.0 L Webster # (Auto) 0.5 Eos # (Auto) 0.0 Baso # (Auto) 0.00 pO2 VBG pH VBG pCO2 VBG HCO3 VBG Total CO2 VBG O2 Sat (Calc) VBG Base Excess VBG Potassium Glucose Lactate FiO2 Sodium 136 Potassium 4.1 Chloride 95 L Carbon Dioxide 28 Anion Gap 16 BUN 26 H Creatinine 3.6 H Est GFR ( Amer) 15 Est GFR (Non-Af Amer) 12 POC Glucose (mg/dL) 232 H Random Glucose 159 H Calcium 9.2 Total Bilirubin 0.9 AST 42 H D ALT 13 Alkaline Phosphatase 65 Lactate Dehydrogenase Total Creatine Kinase Troponin I Total Protein 8.0 Albumin 3.4 Globulin 4.6 Albumin/Globulin Ratio 0.7 L Venous Blood Potassium 06/26/17 06/26/17 06/26/17 07:31 10:30 11:27 WBC RBC Hgb Hct MCV MCH MCHC RDW Plt Count MPV Gran % Lymph % (Auto) Webster % (Auto) Eos % (Auto) Baso % (Auto) Gran # Lymph # (Auto) Webster # (Auto) Eos # (Auto) Baso # (Auto) pO2 88 H VBG pH 7.53 H VBG pCO2 32.0 L VBG HCO3 26.7 VBG Total CO2 27.7 VBG O2 Sat (Calc) 98.2 H VBG Base Excess 4.4 H VBG Potassium 4.2 Glucose 196 H Lactate 2.0 FiO2 21.0 Sodium 131.0 L Potassium Chloride 98.0 Carbon Dioxide Anion Gap BUN Creatinine Est GFR ( Amer) Est GFR (Non-Af Amer) POC Glucose (mg/dL) 142 H 148 H Random Glucose Calcium Total Bilirubin AST ALT Alkaline Phosphatase Lactate Dehydrogenase Total Creatine Kinase Troponin I Total Protein Albumin Globulin Albumin/Globulin Ratio Venous Blood Potassium 4.2 Critical Care Progress Note - Nutrition Nutrition: Nutrition Category Date Time Status Liquid Diet [DIET] Diets 06/26/17 Lunch Ordered Attending/Attestation - Attestation I have personally seen and examined this patient.: Yes I have fully participated in the care of the patient.: Yes I have reviewed all pertinent clinical information: Yes Notes (Text): 06/26/17 14:28 82 yo fmale who initially presented with acute diverticulitis, treated with abx and IVF, now improved. Had some spike of abdominal pain in am, however it shortly resolved and abdo exam remained benign: soft, no guarding, no rebound tenderness. no leukocytosis, no fever, CT abdomen/pelvis-->no free air, no mural thickening, no abscess; no changes. will advance diet as per GI service. will maintain euvolemia. ok to downgrade to [facility]. No chest pain, troponin is trending down. elevation likely due to ESRD/HD. DVT/GI prophylaxis ccm time 40 min
--- NOTE | 2017-06-26 12:02 | CT ---
PROCEDURE: CT Abdomen and Pelvis with Oral contrast. HISTORY: rule out chest mass, abdominal pain COMPARISON: CT 06/24/2017 TECHNIQUE: Contiguous axial images of the abdomen and pelvis. . No IV contrast given. Coronal and Sagittal reformats generated. Radiation dose: Total exam DLP = This CT exam was performed using one or more of the following dose reduction techniques: Automated exposure control, adjustment of the mA and/or kV according to patient size, and/or use of iterative reconstruction technique. FINDINGS: LOWER THORAX: There is a small right-sided pleural effusion. Interstitial changes are seen in both lung bases LIVER: Unremarkable GALLBLADDER AND BILE DUCTS: Small gallstones. No inflammation PANCREAS: Unremarkable. No mass. No ductal dilatation. SPLEEN: Unremarkable. No splenomegaly. ADRENALS: Unremarkable. KIDNEYS AND URETERS: Atrophy of the kidneys and vascular calcifications BLADDER: Grossly unremarkable. REPRODUCTIVE: Unremarkable. APPENDIX: Unremarkable. BOWEL: Unremarkable. No obstruction. No gross mural thickening. There is diverticulosis of the descending and sigmoid colon. Minimal fatty infiltration is seen at the junction of the descending and sigmoid colon unchanged from the previous study. PERITONEUM: Unremarkable. No fluid collection. No free air. LYMPH NODES: Unremarkable. No enlarged lymph nodes. VASCULATURE: Unremarkable. No aortic aneurysm. BONES: No fracture or destructive lesion. OTHER FINDINGS: None. IMPRESSION: There is diverticulosis of the descending and sigmoid colon. Minimal fatty infiltration is seen at the junction of the descending and sigmoid colon unchanged from the previous study.
[2017-06-26] MEDS ORDERED: Sodium Chloride 0.9% 1,000 ML IV STA (14:23)
--- NOTE | 2017-06-26 15:10 | CT ---
PROCEDURE: CT Chest without contrast HISTORY: COUGH COMPARISON: None. TECHNIQUE: Contiguous axial images were obtained through the chest without intravenous contrast enhancement. Sagittal and coronal reconstructions were performed. Radiation dose (DLP): mGy-cm. This CT exam was performed using one or more of the following dose reduction techniques: Automated exposure control, adjustment of the mA and/or kV according to patient size, and/or use of iterative reconstruction technique. FINDINGS: LUNGS: There is dense consolidation in the left upper lobe adjacent to the mediastinum. The appearance is most consistent with pneumonia. This measures 59 mm AP x 34 mm wide by 63 mm height. Air bronchograms can be seen. This makes a solid mass unlikely. MEDIASTINUM: Unremarkable thoracic aorta. No aneurysm. Normal sized heart. Main pulmonary artery unremarkable. No vascular congestion. No lymphadenopathy. PLEURA: Small right pleural effusion BONES: No fracture. No destructive lesion. UPPER ABDOMEN: Grossly unremarkable. OTHER FINDINGS: None. IMPRESSION: Focal area of consolidation in the left upper lobe with air bronchograms. The findings are most consistent with pneumonia
[2017-06-26 16:08] LABS: VENOUS BLOOD GAS BASE EXCESS -10.5 mmol/L (0.0-2.0); VENOUS BLOOD GAS PO2 41 mm/Hg (30-55); VENOUS BLOOD PH 7.37 (7.32-7.43)
--- NOTE | 2017-06-26 16:31 | PN ---
DATE: SUBJECTIVE: The patient is currently seen lying comfortable in CCU, bed 2. She is complaining of some mild right upper quadrant discomfort. She is noted to have gallstones but no cholangitis or cholecystitis. She does not have any left lower quadrant pain at all. One blood culture is growing out a gram-negative larisa. Isolation and sensitivity are pending. She no longer has any hemoptysis, no shortness of breath. She had an uneventful dialysis yesterday with removal of 2000 mL of fluid. PHYSICAL EXAMINATION: INTAKE AND OUTPUT. Intake is 830, output is 2000 with dialysis. GENERAL: Weight is 116 pounds 11 ounces. VITAL SIGNS: Blood pressure is 95/38, temperature is 98.2, respiratory rate is 17 with a pulse of 100. HEENT: Shows her to be normocephalic, atraumatic. Conjunctivae are pale. Sclerae are nonicteric. NECK: Supple. No neck vein distention. CHEST: Clear to auscultation and percussion. No rales, wheezing, or rhonchi noted today. CARDIOVASCULAR: Shows a regular rate and rhythm with MR/TR. No S3. No S4. No rub. ABDOMEN: Soft. Bowel sounds normal. She has only minimal discomfort on palpation of the right upper quadrant. No left lower quadrant tenderness. No masses. No rebound or guarding. EXTREMITIES: Show a working AV fistula left upper extremity. No lower extremity edema. MEDICATIONS: List reviewed. The patient is currently on aspirin, doxycycline, DuoNeb, EMLA cream prior to dialysis, insulin, Imdur, Lipitor, Lopressor, meropenem, Protonix, Robitussin p.r.n., normal saline was discontinued, Synthroid, and Tylenol p.r.n. LABORATORY DATA AND IMAGING STUDIES: CBC: White blood cell count 10.2, hemoglobin 8.8 with a platelet count of 131,000. Coags: PT of 14 with a PTT of 28.9. Blood gas today, 7.53 with a pO2 of 88 and a pCO2 of 32. Chemistries today showed normal electrolytes. BUN 26 with creatinine of 3.6. Glucose is 159. Mild elevation of her AST of 42. No further troponins were checked. Microbiology, blood cultures are positive for gram-negative rods, final isolation and sensitivity are pending. ASSESSMENT: 1. Sepsis with gram-negative larisa septicemia, perhaps secondary to diverticulitis. No evidence for cholecystitis or cholangitis. The patient also has an apparently new left upper lobe pneumonia. This was likely the cause of her hemoptysis. The patient remains on broad-spectrum antibiotic therapy pending cultures. 2. Left upper lobe infiltrate with hemoptysis. Influenza titers were negative. Continue antibiotics as per Infectious Disease. 3. Possible acute diverticulitis. The patient has had several admissions for this in the past. She has absolutely no discomfort or pain in the left lower quadrant. If she has any discomfort at all, it is in the right upper quadrant. She does have gallstones but no evidence for cholangitis or cholecystitis. 4. Elevated troponin level, perhaps cardiac ischemia in the setting of sepsis. The patient was seen by her coiled coil inspector. 5. End-stage renal disease. The patient will continue dialysis 4 times a week as per her routine. She is scheduled for dialysis tomorrow. 6. History of hypertension. Blood pressure is currently in the low to low normal range. The patient remains on low-dose beta-leandro therapy alone. 7. History of atherosclerotic heart disease, history of mild valvular heart disease, mitral regurgitation/tricuspid regurgitation with history of paroxysmal atrial fibrillation. 8. History of hypothyroidism. The patient will continue thyroid replacement therapy. 9. History of secondary hyperparathyroidism. Last phosphorus level was 3.8. Calcium level was 9.2. At present, the patient's binder therapy is on hold. 10. History of [id number] diabetes mellitus. The patient will continue sliding scale insulin. 11. Status post recent left ankle fracture. Her immobilizer has been discontinued. The patient had an x-ray of her ankle on admission, which showed nondisplaced fracture of the left lateral malleolus. PLAN: 1. Discussed with house staff in the CCU and nursing staff. From a renal standpoint, the patient appears to be hemodynamically stable. It would be okay with me if she was downgraded to telemetry, which would allow her to have dialysis in the dialysis unit tomorrow. 2. Continue pulmonary, cardiac, and ID followup. 3. GI followup for her abdominal pain and possible acute diverticulitis. 4. Continue present cardiac medications, especially beta-leandro therapy. 5. Continue present empiric antibiotic therapy pending final culture determination, isolation and sensitivities are pending. Case discussed with Dr. Ascencio earlier. Greater than 35 minutes spent in the care of this patient. Buck Yanes MD
[2017-06-26] MEDS: Meropenem 500 MG in Sodium Chloride 0.9% 50 ML IVPB SCH (17:19)
[2017-06-26] MEDS: guaiFENesin DM 100 mg-10 mg/5 ml UD PO PRN ×2 (19:34→23:04)
--- NOTE | 2017-06-26 23:43 | PN ---
DATE: SUBJECTIVE: An 82-year-old female in the Coronary Care Unit. Patient states this morning that she was having some mild abdominal discomfort. OBJECTIVE: VITAL SIGNS: Her temp was 98, pulse was 109, blood pressure 119/50, respiratory rate was 23, oxygen sat 100%. GENERAL: Patient is alert. LUNGS: Show bilateral rhonchi, left more than right. HEART: S1 and S2. ABDOMEN: Soft. There is mild epigastric tenderness. EXTREMITIES: Show no evidence of edema. Her dialysis fistula site is dry. Microbiological study show blood culture to be positive with gram-negative larisa. LABORATORY DATA: Showed a blood sugar of 142, WBC 10.2, RBC 2.91, hemoglobin 8.8, hematocrit 28.4, platelet count 131. Chemistry showed sodium 136, potassium 4.1, chloride 95, BUN is 26, creatinine 2.6. AST is 42. Patient had a CT of the chest. Interpretation by Radiology suggests findings consistent with consolidation in the left lung with pneumonia. CAT scan of the abdomen shows mild fatty infiltration in the sigmoid colon area, presence of gallstones. Patient continues at this time on Doryx p.o. 100 mg b.i.d., meropenem IV. She has sepsis with gram-negative rods. She is felt to have acute diverticulitis and presence of gallstones and pneumonia. She has a non-ST myocardial infarction with elevation of her troponin level, being followed by Cariology. GI is following the patient as well and she has been placed on a liquid diet and discussed with GI further evaluation. Repeat labs have been requested any antibiotics at this time. She is on dialysis 4 times a week, being followed by Nephrology. Shavonne Ascencio MD
[2017-06-27] MEDS ORDERED: Albuterol-Ipratrop 3 mg / 0.5 (3 ml) UD IH STA (00:17)
[2017-06-27] MEDS: Albuterol-Ipratrop 3 mg / 0.5 (3 ml) UD IH SCH ×4 (04:14→22:08)
[2017-06-27] MEDS: Pantoprazole 40 mg EC Tab PO SCH (05:34)
[2017-06-27 07:17] LABS: GRAN # 4.33 (1.4-6.5); GRAN % 81.7 % (50.0-68.0); HEMOGLOBIN 8.1 g/dL (12.0-16.0); LYMPH # 0.6 (1.2-3.4); LYMPH % 10.8 % (22.0-35.0); MEAN CORPUSCULAR HEMOGLOBIN 30.3 pg (25.0-35.0); MEAN CORPUSCULAR HGB CONC 31.3 g/dl (31.0-37.0); MEAN PLATELET VOLUME 9.4 fl (7.0-11.0); MONO # 0.4 (0.1-0.6); MONO % 7.5 % (1.0-6.0); RBC 2.67 10^6/uL (3.5-6.1); RED CELL DISTRIBUTION WIDTH 17.3 % (11.5-14.5); WHITE BLOOD COUNT 5.3 10^3/ul (4.5-11.0)
[2017-06-27 07:37] LABS: ALB/GLOB RATIO 0.8 (1.1-1.8); ALBUMIN 3.2 g/dL (3.0-4.8); CALCIUM 8.5 mg/dL (8.4-10.5)
[2017-06-27] MEDS: Levothyroxine 50 MCG TAB PO SCH (08:22)
[2017-06-27] MEDS: Insulin Reg-LOW-Coverage SC SCH ×4 (08:22→22:24)
--- NOTE | 2017-06-27 08:47 | RAD ---
HISTORY: pna COMPARISON: 06/24/2017 FINDINGS: LUNGS: There is a focal area of consolidation in the left upper lobe adjacent to the mediastinum. This is unchanged. PLEURA: No significant pleural effusion identified, no pneumothorax apparent. CARDIOVASCULAR: Mild vascular congestion OSSEOUS STRUCTURES: No significant abnormalities. VISUALIZED UPPER ABDOMEN: Normal. OTHER FINDINGS: None. IMPRESSION: Left upper lobe pneumonia unchanged
[2017-06-27] MEDS: Meropenem 500 MG in Sodium Chloride 0.9% 50 ML IVPB SCH ×2 (10:06→22:24)
[2017-06-27 10:26] LABS: URINE BILIRUBIN SMALL (NEGATIVE); URINE BLOOD LARGE (NEGATIVE); URINE GLUCOSE (UA) NEGATIVE (NEGATIVE); URINE LEUKOCYTE ESTERASE MODERATE Leu/uL (NEGATIVE); URINE PROTEIN >=300 mg/dL (<30 mg/dL); URINE UROBILINOGEN 0.2 E.U./dL (<1 E.U./dL)
[2017-06-27 10:35] LABS: URINE APPEARANCE CLOUDY (CLEAR); URINE COLOR LIGHT BROWN (YELLOW)
--- NOTE | 2017-06-27 10:36 | RAD ---
HISTORY: rule out pneumonia COMPARISON: Earlier same day FINDINGS: LUNGS: No change in left upper lobe infiltrate. Increasing infiltrate at the right lung base. Moderate vascular congestion PLEURA: No significant pleural effusion identified, no pneumothorax apparent. CARDIOVASCULAR: Normal. OSSEOUS STRUCTURES: No significant abnormalities. VISUALIZED UPPER ABDOMEN: Normal. OTHER FINDINGS: None. IMPRESSION: No change in left upper lobe infiltrate. Increasing infiltrate at the right lung base. Moderate vascular congestion
[2017-06-27 10:53] LABS: URINE RBC TNTC /hpf (0-2); URINE WBC TNTC /hpf (0-6)
[2017-06-27 10:54] LABS: URINE BACTERIA MANY (NEG)
--- NOTE | 2017-06-27 13:28 | CP.PCM.PN ---
Subjective - Date & Time of Evaluation Date of Evaluation: 06/27/17 Time of Evaluation: 10:30 - Subjective Subjective: Developed high grade fevers overnight, has some mild abdominal pain, no vomiting , no diarrhea, no SOB at rest. Objective - Vital Signs/Intake and Output Vital Signs (last 24 hours): Temp Pulse Resp BP Pulse Ox 99.8 F H 97 H 19 127/91 H 100 06/27/17 04:00 06/27/17 09:16 06/27/17 06:43 06/27/17 09:16 06/27/17 06:00 Intake and Output: 06/27/17 06/27/17 06:59 18:59 Intake Total 250 Balance 250 - Medications Medications: Current Medications Acetaminophen (Tylenol 325mg Tab) 650 mg PO Q6H PRN PRN Reason: Fever >100.4 F Last Admin: 06/27/17 00:52 Dose: 650 mg Albuterol/Ipratropium (Duoneb 3 Mg/0.5 Mg (3 Ml) Ud) 3 ml IH [id number] [facility] Last Admin: 06/27/17 07:06 Dose: 3 ml Aspirin (Aspirin Chewable) 81 mg PO DAILY [facility] Last Admin: 06/27/17 09:15 Dose: 81 mg Atorvastatin Calcium (Lipitor) 20 mg PO DIN [facility] Last Admin: 06/26/17 16:35 Dose: 20 mg Benzonatate (Tessalon Perles) 100 mg PO TID PRN PRN Reason: cough uncontrolled w robitusin Last Admin: 06/27/17 09:16 Dose: 100 mg Doxycycline Hyclate (Doryx) 100 mg PO Q12 R[facility]ANN PRN Reason: Protocol Last Admin: 06/27/17 09:15 Dose: 100 mg Meropenem 500 mg/ Sodium (Chloride) 50 mls @ 100 mls/hr IVPB Q12 RUTHANN PRN Reason: Protocol Vancomycin HCl 1.5 gm/ Sodium (Chloride) 250 mls @ 167 mls/hr IVPB ONCE ONE PRN Reason: Protocol Stop: 06/27/17 10:46 Insulin Human Regular (Humulin R Low) 0 units SC ACHS RUTHANN PRN Reason: Protocol Last Admin: 06/27/17 08:22 Dose: 1 units Isosorbide Mononitrate (Imdur Er) 30 mg PO DAILY [facility] Last Admin: 06/27/17 09:16 Dose: 30 mg Levothyroxine Sodium (Synthroid) 50 mcg PO ACB [facility] Last Admin: 06/27/17 08:22 Dose: 50 mcg Lidocaine/Prilocaine (Emla) 1 gm TOP MWF PRN PRN Reason: FOR AV SHUNT NEEDLE INSERTION Metoprolol Tartrate (Lopressor) 25 mg PO BID [facility] Last Admin: 06/27/17 09:16 Dose: Not Given Pantoprazole Sodium (Protonix Ec Tab) 40 mg PO 0600 [facility] Last Admin: 06/27/17 05:34 Dose: 40 mg - Labs Labs: 06/27/17 06:00 06/27/17 06:00 PT 14.0 SECONDS (9.4-12.5) H 06/24/17 13:30 INR 1.22 (0.93-1.08) H 06/24/17 13:30 APTT 28.9 Seconds (25.1-36.5) 06/24/17 13:30 - Constitutional Appears: Chronically Ill - Head Exam Head Exam: NORMAL INSPECTION - ENT Exam ENT Exam: Mucous Membranes Moist - Neck Exam Neck Exam: absent: Meningismus - Respiratory Exam Respiratory Exam: Decreased Breath Sounds - Cardiovascular Exam Cardiovascular Exam: +S1, +S2 - GI/Abdominal Exam GI & Abdominal Exam: Soft. absent: Tenderness Assessment and Plan - Assessment and Plan (Free Text) Plan: Assessment sepsis due to gram negative bacilli bacteremia probably from acute left sided diverticulitis, as well as left upper lobe HCAP history of C. diff. associated diarrhea S/P severe sepsis with acute sigmoid diverticulitis and acute cholecystitis history of acute NSTEMI history of sepsis due to acute descending colon diverticulitis and bilateral lobe healthcare-associated pneumonia history of healthcare-associated pneumonia (right upper lobe, bilateral lower lobes) HTN DM CAD with chronic CHF ESRD on HD Plan continue Merrem and doxycycline (day 4) and has been given a dose of IV vancomycin, and added Zyvox as well pending identification and sensitivities of the gram negative bacilli in the blood; we have also repeated blood cx and CXR still showing the left upper lobe pneumonia will continue to monitor clinically overall prognosis is poor
--- NOTE | 2017-06-27 13:55 | PN ---
DATE: SUBJECTIVE: The patient is currently seen in dialysis. Hemoglobin is low at 8.1 and the patient will be transfused 1 unit of packed red blood cells. She has no shortness of breath. No coughing. She does complain of some mild abdominal discomfort mostly in the area of the right upper quadrant. The patient is complaining of weakness. MEDICATIONS: Medication list reviewed. The patient is currently on aspirin, doxycycline, DuoNeb, EMLA cream, insulin, Imdur, Lipitor, Lopressor, meropenem, Protonix, Synthroid, Tessalon Perles and Tylenol. OBJECTIVE: INTAKE/OUTPUT: Intake is 1989. Output is 0. VITAL SIGNS: Blood pressure 127/91, temperature 97.8, respiratory rate is 20 with a pulse of 97. HEENT: Shows her to be normocephalic, atraumatic. Conjunctivae are pale. Sclerae nonicteric. NECK: Supple. No neck vein distention. CHEST: Clear to auscultation and percussion with scattered rhonchi. No rales or wheezing. CARDIOVASCULAR: Shows a regular rate and rhythm with MR/TR. No S3. No S4. No rub. ABDOMEN: Soft. Bowel sounds normal. Mild discomfort on palpation in right upper quadrant. No left lower quadrant tenderness. No rebound, guarding or masses. EXTREMITIES: Show a cannulated AV fistula, left upper extremity. No lower extremity edema. LABORATORY DATA AND IMAGING: CBC today: White blood cell count is 5.3, hemoglobin down to 8.1 from a high of 10.9. Platelet count is 104,000. Chemistry showed normal electrolytes. BUN 46 with creatinine of 5.5. Glucose 200. Calcium is 8.5. Phosphorus is pending. Albumin level is 3.2. Microbiology: Blood cultures were positive initially for gram-negative rods. No final isolation and sensitivities yet. Repeat blood cultures have been negative. ASSESSMENT: 1. Sepsis with gram-negative larisa septicemia, perhaps secondary to diverticulitis as seen on the admitting CT scan. No evidence for cholecystitis or cholangitis despite her having mild discomfort in the right upper quadrant. Positive left upper lobe pneumonia with hemoptysis. The patient has a mild nonproductive cough with no shortness of breath. 2. Left upper lobe infiltrate with hemoptysis, likely a healthcare-acquired pneumonia. Continue antibiotics as per infectious disease. 3. Possible acute diverticulitis on admission. No symptoms. Perhaps gram-negative larisa is coming from the colon. Await final sensitivities. 4. Elevated troponin level. Perhaps cardiac ischemia in the setting of pneumonia, diverticulitis and septicemia. The patient was seen by Cardiology and conservative management is recommended. 5. History of end-stage renal disease. The patient will continue dialysis 4 times a week. This is being done because of volume overload and the inability to ultrafiltrate her adequately without dropping her blood pressure. 6. History of hypertension. Blood pressure is in the low normal range and acceptable. She remains on beta-leandro therapy alone. 7. History of atherosclerotic heart disease with mild valvular heart disease and paroxysmal atrial fibrillation, currently stable. 8. Hypothyroidism. The patient will continue thyroid replacement therapy. 9. History of secondary hyperparathyroidism. Repeat phosphorus level is pending. At present, binder therapy is on hold. 10. History of urb-[id number]-tplutpcet diabetes mellitus. The patient has been on sliding scale insulin. 11. History of anemia. This is worsening, likely secondary to bone marrow suppression from infection, pneumonia, septicemia and diverticulitis. The patient will receive 1 unit of packed red blood cells with dialysis today. 12. Status post recent ankle fracture. Her immobilizer has been discontinued. The patient appears to have reasonable range of motion of her left lower extremity and left ankle. PLAN: 1. Transfuse 1 unit of packed red blood cells today on dialysis. This was discussed with the hemodialysis staff. 2. Continue ID followup. Continue intravenous and oral antibiotic therapy. 3. Continue all cardiac medicines including beta leandro therapy. 4. Await final culture and sensitivities. 5. Agree with the patient being transferred out of the ICU to either a medical floor or telemetry. Buck Yanes MD
--- NOTE | 2017-06-27 13:56 | CP.PCM.PN ---
<Starr Bowers - Last Filed: 06/27/17 13:55> Subjective - Date & Time of Evaluation Date of Evaluation: 06/27/17 Time of Evaluation: 12:00 - Subjective Subjective: S&E at dialysis, c/o nausea and no appetite, abdominal pain mainly right sided.No vomiting. No BM since Sunday. No acute overnight events. No fever or chills, c/o coughing. No reports of bleeding. Objective - Vital Signs/Intake and Output Vital Signs (last 24 hours): Temp Pulse Resp BP Pulse Ox 97.6 F 97 H 20 127/91 H 98 06/27/17 11:20 06/27/17 09:16 06/27/17 08:00 06/27/17 09:16 06/27/17 08:00 Intake and Output: 06/27/17 06/27/17 06:59 18:59 Intake Total 250 150 Output Total 10 Balance 250 140 - Medications Medications: Current Medications Acetaminophen (Tylenol 325mg Tab) 650 mg PO Q6H PRN PRN Reason: Fever >100.4 F Last Admin: 06/27/17 00:52 Dose: 650 mg Albuterol/Ipratropium (Duoneb 3 Mg/0.5 Mg (3 Ml) Ud) 3 ml IH [id number] [facility] Last Admin: 06/27/17 07:06 Dose: 3 ml Aspirin (Aspirin Chewable) 81 mg PO DAILY [facility] Last Admin: 06/27/17 09:15 Dose: 81 mg Atorvastatin Calcium (Lipitor) 20 mg PO DIN [facility] Last Admin: 06/26/17 16:35 Dose: 20 mg Benzonatate (Tessalon Perles) 100 mg PO TID PRN PRN Reason: cough uncontrolled w robitusin Last Admin: 06/27/17 09:16 Dose: 100 mg Doxycycline Hyclate (Doryx) 100 mg PO Q12 [facility] PRN Reason: Protocol Last Admin: 06/27/17 09:15 Dose: 100 mg Meropenem 500 mg/ Sodium (Chloride) 50 mls @ 100 mls/hr IVPB Q12 [facility] PRN Reason: Protocol Last Admin: 06/27/17 10:06 Dose: 100 mls/hr Linezolid (Zyvox 600mg/300ml D5w) 600 mg in 300 mls @ 200 mls/hr IVPB Q12 [facility] PRN Reason: Protocol Stop: 07/04/17 13:31 Insulin Human Regular (Humulin R Low) 0 units SC ACHS [facility] PRN Reason: Protocol Last Admin: 06/27/17 11:40 Dose: Not Given Isosorbide Mononitrate (Imdur Er) 30 mg PO DAILY [facility] Last Admin: 06/27/17 09:16 Dose: 30 mg Levothyroxine Sodium (Synthroid) 50 mcg PO ACB [facility] Last Admin: 06/27/17 08:22 Dose: 50 mcg Lidocaine/Prilocaine (Emla) 1 gm TOP MWF PRN PRN Reason: FOR AV SHUNT NEEDLE INSERTION Metoprolol Tartrate (Lopressor) 25 mg PO BID [facility] Last Admin: 06/27/17 09:16 Dose: Not Given Pantoprazole Sodium (Protonix Ec Tab) 40 mg PO 0600 [facility] Last Admin: 06/27/17 05:34 Dose: 40 mg - Labs Labs: 06/27/17 06:00 06/27/17 06:00 PT 14.0 SECONDS (9.4-12.5) H 06/24/17 13:30 INR 1.22 (0.93-1.08) H 06/24/17 13:30 APTT 28.9 Seconds (25.1-36.5) 06/24/17 13:30 - Constitutional Appears: No Acute Distress - Head Exam Head Exam: NORMOCEPHALIC - Eye Exam Eye Exam: Normal appearance. absent: Scleral icterus - ENT Exam ENT Exam: Mucous Membranes Moist - Neck Exam Neck Exam: Normal Inspection - Respiratory Exam Respiratory Exam: NORMAL BREATHING PATTERN. absent: Respiratory Distress - Cardiovascular Exam Cardiovascular Exam: +S1, +S2 - GI/Abdominal Exam GI & Abdominal Exam: Soft, Tenderness (diffuse right sided), Normal Bowel Sounds. absent: Guarding, Rebound - Extremities Exam Extremities Exam: absent: Calf Tenderness, Pedal Edema - Neurological Exam Neurological Exam: Alert, Awake, Oriented x3 Assessment and Plan - Assessment and Plan (Free Text) Assessment: Assessment: Sepsis/UTI Pneumonia Abdominal pain Anemia End stage renal disease on dialysis Diverticulitis Cholelithiasis Elevated troponin Plan: Continue clear liquids will add Ensure clear Continue IV antibiotics Continued GI prophylaxis on oral antibiotics doxycycline Pending blood transfusion, dialysis today Seen and discussed with Dr. Theodore. <Ysabel Theodore V - Last Filed: 06/27/17 21:43> Objective - Vital Signs/Intake and Output Vital Signs (last 24 hours): Temp Pulse Resp BP Pulse Ox 102.1 F H 108 H 22 152/58 H 97 06/27/17 17:32 18 17:31 06/27/17 17:25 06/27/17 17:31 06/27/17 17:25 Intake and Output: 06/27/17 06/28/17 18:59 06:59 Intake Total 805 Output Total 10 Balance 795 - Medications Medications: Current Medications Acetaminophen (Tylenol 325mg Tab) 650 mg PO Q6H PRN PRN Reason: Fever >100.4 F Last Admin: 06/27/17 17:32 Dose: 650 mg Albuterol/Ipratropium (Duoneb 3 Mg/0.5 Mg (3 Ml) Ud) 3 ml IH [id number] [facility] Last Admin: 06/27/17 13:32 Dose: Not Given Aspirin (Aspirin Chewable) 81 mg PO DAILY [facility] Last Admin: 06/27/17 09:15 Dose: 81 mg Atorvastatin Calcium (Lipitor) 20 mg PO DIN [facility] Last Admin: 06/27/17 17:32 Dose: 20 mg Benzonatate (Tessalon Perles) 100 mg PO TID PRN PRN Reason: cough uncontrolled w robitusin Last Admin: 06/27/17 09:16 Dose: 100 mg Doxycycline Hyclate (Doryx) 100 mg PO Q12 [facility] PRN Reason: Protocol Last Admin: 06/27/17 09:15 Dose: 100 mg Meropenem 500 mg/ Sodium (Chloride) 50 mls @ 100 mls/hr IVPB Q12 [facility] PRN Reason: Protocol Last Admin: 06/27/17 10:06 Dose: 100 mls/hr Linezolid (Zyvox 600mg/300ml D5w) 600 mg in 300 mls @ 200 mls/hr IVPB Q12 [facility] PRN Reason: Protocol Stop: 07/04/17 13:31 Last Admin: 06/27/17 18:15 Dose: 200 mls/hr Insulin Human Regular (Humulin R Low) 0 units SC ACHS [facility] PRN Reason: Protocol Last Admin: 06/27/17 18:07 Dose: Not Given Isosorbide Mononitrate (Imdur Er) 30 mg PO DAILY [facility] Last Admin: 06/27/17 09:16 Dose: 30 mg Levothyroxine Sodium (Synthroid) 50 mcg PO ACB [facility] Last Admin: 06/27/17 08:22 Dose: 50 mcg Lidocaine/Prilocaine (Emla) 1 gm TOP MWF PRN PRN Reason: FOR AV SHUNT NEEDLE INSERTION Metoprolol Tartrate (Lopressor) 25 mg PO BID [facility] Last Admin: 06/27/17 17:31 Dose: 25 mg Pantoprazole Sodium (Protonix Ec Tab) 40 mg PO 0600 [facility] Last Admin: 06/27/17 05:34 Dose: 40 mg - Labs Labs: 06/27/17 06:00 06/27/17 06:00 PT 14.0 SECONDS (9.4-12.5) H 06/24/17 13:30 INR 1.22 (0.93-1.08) H 06/24/17 13:30 APTT 28.9 Seconds (25.1-36.5) 06/24/17 13:30 Attending/Attestation - Attestation I have personally seen and examined this patient.: Yes I have fully participated in the care of the patient.: Yes I have reviewed all pertinent clinical information, including history, physical exam and plan: Yes Notes (Text): This is an addendum to GI progress report dictated by Starr Bowers APN.The patient was seen and examined earlier. Medical records, lab studies, imagings were reviewed. Last 24 hours events reviewed. Agreed with the above treatment plan as outlined in Starr Bowers APN's notes the with the addition of the following Patient complaining of more discomfort in the right upper quadrant area No significant discomfort in the lower abdomen. On examination tenderness present in the right upper quadrant area no rebound or guarding. Left lower quadrant left-sided abdominal tenderness now Spiked temperature before Patient does have pneumonia in addition in view of the gram-negative rods etiology to consider rule out cholecystitis .She had is significant tenderness RUQ less likely diverticulitis Patient has gram-negative blood culture Continue antibiotics as per ID Would recommend to continue clear liquid diet as of this to the patient has significant tenderness and more pain Would request for HIDA scan 06/27/17 20:45
--- NOTE | 2017-06-27 14:47 | PN ---
DATE: SUBJECTIVE: An 82-year-old female in the intensive care unit. PHYSICAL EXAMINATION: VITAL SIGNS: Temperature is 97.8, T-max was 102, her pulse is 97, her blood pressure is 127/91. LUNGS: Show rhonchi with diminished breath sounds. HEART: S1 and S2, grade 2/6 systolic murmur. ABDOMEN: Soft, scaphoid, positive bowel sounds. EXTREMITIES: No evidence of edema. LABORATORY DATA: Shows WBC of 5.3, RBC 2.67, hemoglobin 8.1, hematocrit 25.9, and platelet count is 104,000. Chemistry shows sodium 137, potassium 4.9, chloride 98. BUN is 46, creatinine is 5.5. Random blood sugar was 200. Her AST is 47. Microbiological studies: Blood culture from 06/24, shows Gram-negative rods. MRSA screen was not detected. Blood cultures from 06/26, at 24 hours have been reported as negative. The patient is currently being followed by Infectious Disease on Doryx 100 mg p.o. q.12 and Merrem IV q.12 for pneumonia, sepsis, diverticulitis. She has a history of gallstones. She is on dialysis 4 times a week for chronic renal disease, being followed by Nephrology. She is on insulin coverage for her insulin dependent diabetes and she is on thyroid replacement therapy for hyperthyroid disease. Her chest x-ray shows persistent left infiltrate. Repeat blood cultures have been requested as well as a procalcitonin level. She will continue on the current regimen at this time. She had a non-ST myocardial infarction, being followed by Cardiology. Family is aware of the patient's clinical status and medical condition. Shavonne Ascencio MD
[2017-06-27] MEDS: Linezolid 600 mg in D5W 300 ml 600 MG/300 ML BAG IVPB SCH ×2 (18:15→22:24)
[2017-06-28 00:08] VITALS: O2SAT 100
--- NOTE | 2017-06-28 01:51 | PN ---
DATE: 06/27/2017 SUBJECTIVE: The patient was seen lying in bed in the CCU. She feels weak and tired. She denies any chest pain or significant dyspnea. CURRENT MEDICATIONS: Aspirin, doxycycline, DuoNeb inhaler, insulin coverage, Imdur 30 mg daily, Lipitor, meropenem, Protonix, Synthroid, and Zyvox. OBJECTIVE: GENERAL: She is an elderly woman who appears chronically ill. VITAL SIGNS: Blood pressure is 140/60 with a pulse of 98, in sinus rhythm, respirations 16. She is currently afebrile. She did have a fever of 103.6 last evening. HEENT: No JVD. CHEST: Bilateral scattered rhonchi heard. HEART: PMI is displaced laterally with a soft systolic murmur at the lower left sternal boarder and the apex. ABDOMEN: Soft, nontender, normoactive bowel sounds. EXTREMITIES: No edema. LABORATORY DATA: Potassium 4.9, BUN and creatinine 56 and 5.5. White count 5.3, hemoglobin and hematocrit 8.1 and 25.9 with a platelet count of 104,000. IMPRESSION: 1. Sepsis, likely secondary to left upper lobe pneumonia. 2. Elevated troponin, possibly due to reduced renal clearance. No clear evidence of myocardial infarction at present. 3. Chronic renal failure, maintained on hemodialysis. 3. Mitral regurgitation. 4. History of hypertension and diabetes. 5. Rest of problems as noted. RECOMMENDATIONS: Her current medications should continue for now. Conservative cardiac management at this time appears most appropriate. Broad-spectrum antibiotics will continue. Her overall prognosis remains somewhat guarded. We will be happy to follow along and make further recommendations as appropriate. Linus So MD [facility]
[2017-06-28] MEDS: Albuterol-Ipratrop 3 mg / 0.5 (3 ml) UD IH SCH ×4 (04:32→19:40)
[2017-06-28] MEDS: Pantoprazole 40 mg EC Tab PO SCH (05:19)
[2017-06-28 05:51] LABS: GRAN # 3.53 (1.4-6.5); GRAN % 67.3 % (50.0-68.0); LYMPH # 1.2 (1.2-3.4); LYMPH % 23.4 % (22.0-35.0); MEAN CORPUSCULAR HEMOGLOBIN 29.8 pg (25.0-35.0); MEAN PLATELET VOLUME 9.7 fl (7.0-11.0); MONO # 0.5 (0.1-0.6); MONO % 9.3 % (1.0-6.0); RBC 3.39 10^6/uL (3.5-6.1); WHITE BLOOD COUNT 5.3 10^3/ul (4.5-11.0)
[2017-06-28 06:10] LABS: MEAN CELL VOLUME 93.2 fl (80.0-105.0)
[2017-06-28 06:11] LABS: HEMOGLOBIN 10.1 g/dL (12.0-16.0)
[2017-06-28 07:18] LABS: ALB/GLOB RATIO 0.7 (1.1-1.8); ALBUMIN 3.2 g/dL (3.0-4.8); CALCIUM 8.9 mg/dL (8.4-10.5)
[2017-06-28] MEDS: Insulin Reg-LOW-Coverage SC SCH ×4 (08:01→22:20)
--- NOTE | 2017-06-28 09:11 | CP.PCM.PN ---
Subjective - Date & Time of Evaluation Date of Evaluation: 06/28/17 Time of Evaluation: 07:00 - Subjective Subjective: Stable on 2R. No CP or SOB. V/S noted. RSR. Some 2:1 conduction episodes noted. T = 102.1 during the night PE: Lungs: clear Cor: S1S2 Abd.: soft Ext.: no edema Neuro: alert I/O= 805/10 recorded Labs noted: H/H 02/13, K+= 3.7, Cr. = 2.9 BC's noted: one BC + E. coli CXR 06/27 noted Objective - Vital Signs/Intake and Output Vital Signs (last 24 hours): Temp Pulse Resp BP Pulse Ox 98.7 F 74 18 127/75 100 06/28/17 06:00 06/28/17 06:00 06/28/17 06:00 06/28/17 06:00 06/28/17 06:00 - Medications Medications: Current Medications Acetaminophen (Tylenol 325mg Tab) 650 mg PO Q6H PRN PRN Reason: Fever >100.4 F Last Admin: 06/27/17 17:32 Dose: 650 mg Albuterol/Ipratropium (Duoneb 3 Mg/0.5 Mg (3 Ml) Ud) 3 ml IH [id number] [facility] Last Admin: 06/28/17 08:27 Dose: 3 ml Aspirin (Aspirin Chewable) 81 mg PO DAILY [facility] Last Admin: 06/27/17 09:15 Dose: 81 mg Atorvastatin Calcium (Lipitor) 20 mg PO DIN [facility] Last Admin: 06/27/17 17:32 Dose: 20 mg Benzonatate (Tessalon Perles) 100 mg PO TID PRN PRN Reason: cough uncontrolled w robitusin Last Admin: 06/27/17 09:16 Dose: 100 mg Doxycycline Hyclate (Doryx) 100 mg PO Q12 [facility] PRN Reason: Protocol Last Admin: 06/27/17 22:23 Dose: 100 mg Meropenem 500 mg/ Sodium (Chloride) 50 mls @ 100 mls/hr IVPB Q12 [facility] PRN Reason: Protocol Last Admin: 06/27/17 22:24 Dose: 100 mls/hr Linezolid (Zyvox 600mg/300ml D5w) 600 mg in 300 mls @ 200 mls/hr IVPB Q12 [facility] PRN Reason: Protocol Stop: 07/04/17 13:31 Last Admin: 06/27/17 22:24 Dose: 200 mls/hr Insulin Human Regular (Humulin R Low) 0 units SC ACHS [facility] PRN Reason: Protocol Last Admin: 06/28/17 08:01 Dose: Not Given Isosorbide Mononitrate (Imdur Er) 30 mg PO DAILY [facility] Last Admin: 06/27/17 09:16 Dose: 30 mg Levothyroxine Sodium (Synthroid) 50 mcg PO ACB [facility] Last Admin: 06/27/17 08:22 Dose: 50 mcg Lidocaine/Prilocaine (Emla) 1 gm TOP MWF PRN PRN Reason: FOR AV SHUNT NEEDLE INSERTION Pantoprazole Sodium (Protonix Ec Tab) 40 mg PO 0600 [facility] Last Admin: 06/28/17 05:19 Dose: 40 mg - Labs Labs: 06/28/17 05:20 06/28/17 05:20 PT 14.0 SECONDS (9.4-12.5) H 06/24/17 13:30 INR 1.22 (0.93-1.08) H 06/24/17 13:30 APTT 28.9 Seconds (25.1-36.5) 06/24/17 13:30 Assessment and Plan - Assessment and Plan (Free Text) Assessment: Pneumonia/Sepsis + trops: R/O NSTEMI CKD/HD CAD/AL/CHF HBP Diabetes HLD MR, moderate CVD/C.A. Stent GIB/Angiodysplasias PN Colonic Polyps Hypothyroidism Cholecystectomy PAD Hip fx. Plan: Continue tel. As per ID, Renal, GI, Dr. Ascencio AB HD ASA No beta leandro b/o second degree AVB Monitor: labs, I/O, tel., sats., etc.
--- NOTE | 2017-06-28 11:06 | PQF CHF ---
This form is a permanent part of the medical record Clarification of your documentation is requested to better reflect the severity of illness and intensity of treatment of your patient. Indicators present Hx CHF,- requires further clarification . 06/26 ECHO- mod - severely impaired Left ventricular systolic function, EF- 20-25%. Please document Acuity & Type CHF POA [] Diagnosis of CHF and/or history of CHF [] BNP > 200 [id number] [] Imaging Finding of Pulmonary Edema /Pleural Effusions [] Fluid/Volume Overload [] Pitting edema [x] Ejection Fraction < 40% (Indicative of Systolic Heart Failure) [] Ejection Fraction > 40% (Indicative of Diastolic Heart Failure) [x] Dyspnea / Orthopenea / Paroxysmal Nocturnal Dyspnea [] Other: Location in the medical record that reflects the above clinical findings: [x] Card consult 06/25 Treatment Provided: [] PHYSICIAN'S RESPONSE Based on your medical judgment of the clinical indicators outlined above, are you treating this patient for a known or suspected: [] Acute CHF [] Systolic [] Diastolic [] Combined [] Chronic CHF [] Systolic [] Diastolic [] Combined [] Acute on Chronic CHF []Systolic [] Diastolic [] Combined [] CHF due hypertension [] Acute systolic []Chronic systolic [] Acute/ chronic systolic [] Other, please indicate: [] [] If Unable to Determine, please check the box, sign and date. Present On Admission (POA) Indicator: [] Present at the time of admission [] Not present at the time of admission [] Clinically Undetermined In responding to this query, please exercise your independent professional judgment. The fact that a question is asked does not imply that any particular answer is desired or expected. Thank you for your clarification on this documentation. If you have any questions please call:[ ] [phone] * Thank you, [ ] Milagros Miller RN CDS community liaison [facility]
[2017-06-28] MEDS: Levothyroxine 50 MCG TAB PO SCH (11:43)
[2017-06-28] MEDS: Meropenem 500 MG in Sodium Chloride 0.9% 50 ML IVPB SCH ×2 (11:43→21:32)
[2017-06-28] MEDS: Linezolid 600 mg in D5W 300 ml 600 MG/300 ML BAG IVPB SCH ×2 (12:19→22:20)
--- NOTE | 2017-06-28 15:12 | PN ---
DATE: SUBJECTIVE: The patient is currently seen in 2R. She appears comfortable. She did have a fever spike last night to 102.1. She still continues to complain of some mild discomfort in her right upper quadrant. No shortness of breath. No cough today. No further hemoptysis and no left lower quadrant abdominal pain. MEDICATIONS: Medication list reviewed. The patient is currently on aspirin, doxycycline, DuoNeb, EMLA cream, insulin, Lipitor, meropenem, Protonix, Synthroid, Tessalon Perles, Tylenol, and Zyvox. OBJECTIVE: INTAKE/OUTPUT: Intake 805 post dialysis. Weight today is 113 pounds, 6.4 ounces. VITAL SIGNS: Blood pressure presently 132/59, temperature currently 98.2, respiratory rate 18 with a pulse of 70. HEENT: Normocephalic, atraumatic. Conjunctivae pale. Sclerae nonicteric. NECK: Supple. No neck vein distention. CHEST: Clear to auscultation and percussion with no rales, no rhonchi, no wheezing. CARDIOVASCULAR: Shows a regular rate and rhythm with MR/TR. No S3. No S4. No rub. ABDOMEN: Soft. Bowel sounds normal. Minimal discomfort on palpation of her right upper quadrant. No left lower quadrant tenderness. No rebound or guarding. EXTREMITIES: Show AV fistula left upper extremity. No evidence for infection. No erythema. No lower extremity cyanosis, clubbing or edema. LABORATORY DATA AND IMAGING: CBC today; white blood cell count down to 5.3, hemoglobin 10.1 with a platelet count of 101,000. Chemistries today showed normal electrolytes. BUN 24 with a creatinine of 2.9. Glucose 138. Liver enzymes; AST mildly elevated at 57. Bilirubin is normal. Albumin is 3.2. Microbiology; blood cultures are positive for E. coli. Followup blood cultures about 24 and 48 hours are negative. ASSESSMENT: 1. Sepsis with gram-negative larisa septicemia secondary to Escherichia coli. The patient clinically sounds like she might have inflammation around her gallbladder based on her abdominal pain. Imaging studies did not support this. The patient is being followed by ID and GI. Positive left upper lobe pneumonia with hemoptysis. No longer to she have any coughing up of blood. She continues to have a left upper lobe infiltrates on imaging studies. This is likely a healthcare-acquired pneumonia. Continue antibiotics as per Infectious Disease. 2. The patient thought to have possible acute diverticulitis on admission; however, no pain. Perhaps Escherichia coli is coming from the bowel. 3. Elevated troponin level. Perhaps cardiac ischemia in the setting of pneumonia, diverticulitis and septicemia. The patient was seen by Cardiology and conservative management is recommended. 4. History of end-stage renal disease. The patient will continue routine dialysis. She is Sunday, Sunday, Sunday plus Sunday. The extra dialysis is to make certain that she does not develop congestive heart failure or hypervolemia, going into Sunday morning's treatment. 5. History of hypertension. Blood pressure is in the low normal range and acceptable. She remains on beta-leandro therapy alone. Presently, this medication has been put on hold. 6. Hypothyroidism. The patient will continue thyroid replacement therapy. 7. History of secondary hyperparathyroidism. Phosphorus level done with dialysis yesterday was 5.3. The patient may resume binder therapy. I will place her back on PhosLo 667 mg with meals. 8. History of [id number] diabetes mellitus. The patient is on sliding scale insulin. 9. History of anemia. Hemoglobin is currently stable in the 10-11 range. The patient did receive 1 unit of packed cells yesterday with dialysis. 10. Status post recent left ankle fracture. The patient currently has her immobilizer on as she is preparing to walk with a therapist. PLAN: 1. Continue dialysis four times a week as per protocol. 2. Continue ID followup. 3. Continue GI followup. 4. Continue to monitor the patient on telemetry. 5. Continue to monitor her temperature curve. 6. Discussed with staff on 2R and Dr. Ascencio. 7. I will place the patient back on binder therapy because her phosphorus level was starting to elevate. Buck Yanes MD
--- NOTE | 2017-06-28 15:40 | CP.PCM.PN ---
Subjective - Date & Time of Evaluation Date of Evaluation: 06/28/17 Time of Evaluation: 10:20 - Subjective Subjective: Still had fevers yesterday afternoon but none after that, less abdominal pain, no diarrhea. Objective - Vital Signs/Intake and Output Vital Signs (last 24 hours): Temp Pulse Resp BP Pulse Ox 98.7 F 74 18 127/75 100 06/28/17 06:00 06/28/17 06:00 06/28/17 06:00 06/28/17 06:00 06/28/17 06:00 - Medications Medications: Current Medications Acetaminophen (Tylenol 325mg Tab) 650 mg PO Q6H PRN PRN Reason: Fever >100.4 F Last Admin: 06/27/17 17:32 Dose: 650 mg Albuterol/Ipratropium (Duoneb 3 Mg/0.5 Mg (3 Ml) Ud) 3 ml IH [id number] [facility] Last Admin: 06/28/17 08:27 Dose: 3 ml Aspirin (Aspirin Chewable) 81 mg PO DAILY [facility] Last Admin: 06/27/17 09:15 Dose: 81 mg Atorvastatin Calcium (Lipitor) 20 mg PO DIN [facility] Last Admin: 06/27/17 17:32 Dose: 20 mg Benzonatate (Tessalon Perles) 100 mg PO TID PRN PRN Reason: cough uncontrolled w robitusin Last Admin: 06/27/17 09:16 Dose: 100 mg Doxycycline Hyclate (Doryx) 100 mg PO Q12 [facility] PRN Reason: Protocol Last Admin: 06/27/17 22:23 Dose: 100 mg Meropenem 500 mg/ Sodium (Chloride) 50 mls @ 100 mls/hr IVPB Q12 [facility] PRN Reason: Protocol Last Admin: 06/27/17 22:24 Dose: 100 mls/hr Linezolid (Zyvox 600mg/300ml D5w) 600 mg in 300 mls @ 200 mls/hr IVPB Q12 [facility] PRN Reason: Protocol Stop: 07/04/17 13:31 Last Admin: 06/27/17 22:24 Dose: 200 mls/hr Insulin Human Regular (Humulin R Low) 0 units SC ACHS [facility] PRN Reason: Protocol Last Admin: 06/28/17 08:01 Dose: Not Given Isosorbide Mononitrate (Imdur Er) 30 mg PO DAILY [facility] Last Admin: 06/27/17 09:16 Dose: 30 mg Levothyroxine Sodium (Synthroid) 50 mcg PO ACB [facility] Last Admin: 06/27/17 08:22 Dose: 50 mcg Lidocaine/Prilocaine (Emla) 1 gm TOP MWF PRN PRN Reason: FOR AV SHUNT NEEDLE INSERTION Pantoprazole Sodium (Protonix Ec Tab) 40 mg PO 0600 [facility] Last Admin: 06/28/17 05:19 Dose: 40 mg - Labs Labs: 06/28/17 05:20 06/28/17 05:20 PT 14.0 SECONDS (9.4-12.5) H 06/24/17 13:30 INR 1.22 (0.93-1.08) H 06/24/17 13:30 APTT 28.9 Seconds (25.1-36.5) 06/24/17 13:30 - Constitutional Appears: Chronically Ill - Head Exam Head Exam: NORMAL INSPECTION - ENT Exam ENT Exam: Mucous Membranes Moist - Neck Exam Neck Exam: absent: Meningismus - Respiratory Exam Respiratory Exam: Decreased Breath Sounds - Cardiovascular Exam Cardiovascular Exam: +S1, +S2 - GI/Abdominal Exam GI & Abdominal Exam: Soft. absent: Tenderness Assessment and Plan - Assessment and Plan (Free Text) Plan: Assessment sepsis due to E. coli bacteremia probably from acute left sided diverticulitis, as well as left upper lobe HCAP history of C. diff. associated diarrhea S/P severe sepsis with acute sigmoid diverticulitis and acute cholecystitis history of acute NSTEMI history of sepsis due to acute descending colon diverticulitis and bilateral lobe healthcare-associated pneumonia history of healthcare-associated pneumonia (right upper lobe, bilateral lower lobes) HTN DM CAD with chronic CHF ESRD on HD Plan continue Merrem and doxycycline (day 5)and Zyvox (day 2) repeat blood cx are negative so far; repeat CXR still showing the left upper lobe pneumonia will continue to monitor clinically overall prognosis is poor
--- NOTE | 2017-06-28 16:39 | NM ---
PROCEDURE: Nuclear Medicine Hepatobiliary Scan HISTORY: eval Gall Bladder COMPARISON: None available. TECHNIQUE: 6.3 mCi of technetium 99m Mebrofenin was administered intravenously. Planar images of the abdomen were obtained at 5 min intervals to 60 mins. Delayed images were also obtained. FINDINGS: LIVER: Timely and homogenous uptake. COMMON BILE DUCT: identified at 30 mins. GALLBLADDER: identified at 45 mins. SMALL BOWEL: Identified at 4 hour delay IMPRESSION: Normal Hepatobiliary Scan. The cystic duct is patent.
--- NOTE | 2017-06-28 18:56 | CP.PCM.PN ---
Subjective - Date & Time of Evaluation Date of Evaluation: 06/28/17 Time of Evaluation: 11:00 - Subjective Subjective: Seen and examined at the bedside earlier this morning, chart review. Patient abdominal pain is better today no nausea or vomiting patient went for HIDA scan. No c/o diarrhea. Objective - Vital Signs/Intake and Output Vital Signs (last 24 hours): Temp Pulse Resp BP Pulse Ox 98.8 F 72 18 116/41 L 100 06/28/17 18:00 06/28/17 18:00 06/28/17 18:00 06/28/17 18:00 06/28/17 06:00 Intake and Output: 06/28/17 06/28/17 06:59 18:59 Intake Total 300 Output Total 0 Balance 300 - Medications Medications: Current Medications Acetaminophen (Tylenol 325mg Tab) 650 mg PO Q6H PRN PRN Reason: Fever >100.4 F Last Admin: 06/27/17 17:32 Dose: 650 mg Albuterol/Ipratropium (Duoneb 3 Mg/0.5 Mg (3 Ml) Ud) 3 ml IH [id number] [facility] Last Admin: 06/28/17 13:46 Dose: 3 ml Aspirin (Aspirin Chewable) 81 mg PO DAILY [facility] Last Admin: 06/28/17 11:43 Dose: 81 mg Atorvastatin Calcium (Lipitor) 20 mg PO DIN [facility] Last Admin: 06/28/17 17:24 Dose: 20 mg Benzonatate (Tessalon Perles) 100 mg PO TID PRN PRN Reason: cough uncontrolled w robitusin Last Admin: 06/27/17 09:16 Dose: 100 mg Calcium Acetate (Phoslo) 667 mg PO WM [facility] Last Admin: 06/28/17 17:24 Dose: 667 mg Doxycycline Hyclate (Doryx) 100 mg PO Q12 [facility] PRN Reason: Protocol Last Admin: 06/28/17 11:43 Dose: 100 mg Meropenem 500 mg/ Sodium (Chloride) 50 mls @ 100 mls/hr IVPB Q12 [facility]ANN PRN Reason: Protocol Last Admin: 06/28/17 11:43 Dose: 100 mls/hr Linezolid (Zyvox 600mg/300ml D5w) 600 mg in 300 mls @ 200 mls/hr IVPB Q12 [facility] PRN Reason: Protocol Stop: 07/04/17 13:31 Last Admin: 06/28/17 12:19 Dose: 200 mls/hr Insulin Human Regular (Humulin R Low) 0 units SC ACHS [facility] PRN Reason: Protocol Last Admin: 06/28/17 17:25 Dose: Not Given Isosorbide Mononitrate (Imdur Er) 30 mg PO DAILY [facility] Last Admin: 06/28/17 11:43 Dose: 30 mg Levothyroxine Sodium (Synthroid) 50 mcg PO ACB [facility] Last Admin: 06/28/17 11:43 Dose: 50 mcg Lidocaine/Prilocaine (Emla) 1 gm TOP MWF PRN PRN Reason: FOR AV SHUNT NEEDLE INSERTION Pantoprazole Sodium (Protonix Ec Tab) 40 mg PO 0600 [facility] Last Admin: 06/28/17 05:19 Dose: 40 mg - Labs Labs: 06/28/17 05:20 06/28/17 05:20 PT 14.0 SECONDS (9.4-12.5) H 06/24/17 13:30 INR 1.22 (0.93-1.08) H 06/24/17 13:30 APTT 28.9 Seconds (25.1-36.5) 06/24/17 13:30 - Constitutional Appears: No Acute Distress - Head Exam Head Exam: NORMOCEPHALIC - Eye Exam Eye Exam: Normal appearance. absent: Scleral icterus - ENT Exam ENT Exam: Mucous Membranes Moist - Neck Exam Neck Exam: Normal Inspection - Respiratory Exam Respiratory Exam: NORMAL BREATHING PATTERN. absent: Respiratory Distress - Cardiovascular Exam Cardiovascular Exam: +S1, +S2 - GI/Abdominal Exam GI & Abdominal Exam: Soft, Normal Bowel Sounds. absent: Guarding, Tenderness, Rebound - Extremities Exam Extremities Exam: absent: Calf Tenderness, Pedal Edema - Neurological Exam Neurological Exam: Alert, Awake, Oriented x3 Assessment and Plan - Assessment and Plan (Free Text) Assessment: Assessment: Sepsis/UTI Pneumonia Abdominal pain, improved maybe multifactoral, Gallstones/hepatic congestion, elevated BNP Anemia, s/p transfusion End stage renal disease on dialysis Diverticulitis Cholelithiasis Elevated troponin Plan: on clear liquids will add Ensure clear, , advance diet in am, HIDA negative and patient abdominal pain improved Continued GI prophylaxis on oral and IV antibiotics Seen and discussed with Dr. Theodore.
[2017-06-29] MEDS: Albuterol-Ipratrop 3 mg / 0.5 (3 ml) UD IH SCH ×4 (01:18→19:19)
--- NOTE | 2017-06-29 03:36 | PN ---
DATE: SUBJECTIVE: An 82-year-old female on 2R, resting comfortably this morning. PHYSICAL EXAMINATION: VITAL SIGNS: Show temp of 98.8, pulse is 73, blood pressure is 116/41, respiratory rate is 18. NECK: Supple. LUNGS: Clear with diminished breath sounds at the bases. HEART: In S1 and S2 rhythm. ABDOMEN: Soft with positive bowel sounds. EXTREMITIES: Show no evidence of edema. LABORATORY DATA: Shows WBC of 5.3, RBC 3.39, hemoglobin 10.1, hematocrit 31.6, and platelet count is 101. Chemistry shows sodium 136, potassium 3.7, chloride 94. BUN 24, creatinine 2.9. Random blood sugar is 138. AST is 57. ASSESSMENT AND PLAN: 1. Patient is receiving antibiotic therapy for acute diverticulitis, pneumonia and sepsis with gram negative organism Escherichia coli. Urine culture is pending. Currently, she is on Doryx, meropenem, and Zyvox by Infectious Disease. 2. She has chronic renal disease, on dialysis 4 times a week, being followed by Nephrology. She has insulin dependent diabetes, on coverage. She has had a non-ST myocardial infarction with conservative care, being followed by Cardiology, on Imdur, Lipitor. She is hypothyroid with Synthroid replacement therapy. She is getting phosphorus supplementation for her renal failure disease, Lipitor for her hyperlipidemia and Ecotrin 81 mg daily for her coronary artery disease. She is scheduled for a HIDA scan ordered by Gastroenterology to rule out gallstone disease. She will continue to be followed by Infectious Disease, Cardiology, Renal and GI. Shavonne Ascencio MD
[2017-06-29] MEDS: Pantoprazole 40 mg EC Tab PO SCH (05:18)
[2017-06-29 07:32] LABS: EOS % 0.2 % (1.5-5.0); GRAN # 2.73 (1.4-6.5); GRAN % 66.5 % (50.0-68.0); HEMOGLOBIN 9.3 g/dL (12.0-16.0); LYMPH # 0.9 (1.2-3.4); LYMPH % 22.6 % (22.0-35.0); MEAN CELL VOLUME 90.4 fl (80.0-105.0); MEAN CORPUSCULAR HEMOGLOBIN 29.7 pg (25.0-35.0); MEAN CORPUSCULAR HGB CONC 32.9 g/dl (31.0-37.0); MEAN PLATELET VOLUME 8.4 fl (7.0-11.0); MONO # 0.4 (0.1-0.6); MONO % 10.7 % (1.0-6.0); RBC 3.13 10^6/uL (3.5-6.1); WHITE BLOOD COUNT 4.1 10^3/ul (4.5-11.0)
[2017-06-29 07:52] LABS: ALB/GLOB RATIO 0.7 (1.1-1.8); CALCIUM 8.4 mg/dL (8.4-10.5)
[2017-06-29] MEDS ORDERED: Darbepoetin Alfa 100 mcg/ml Inj IVP ONE (09:03)
[2017-06-29] MEDS ORDERED: Vancomycin 1gm in NS 250ml 1 GM/250 ML BAG IVPB STA (09:46)
[2017-06-29] MEDS: Levothyroxine 50 MCG TAB PO SCH (11:33)
[2017-06-29] MEDS: Insulin Reg-LOW-Coverage SC SCH ×3 (11:34→21:39)
[2017-06-29] MEDS: Meropenem 500 MG in Sodium Chloride 0.9% 50 ML IVPB SCH ×2 (11:37→21:38)
--- NOTE | 2017-06-29 11:54 | CP.PCM.PN ---
Subjective - Date & Time of Evaluation Date of Evaluation: 06/29/17 Time of Evaluation: 07:00 - Subjective Subjective: GI Progress Note Dr Theodore Pt was seen and examined at bedside. Pt is for HD today. Pt has no complaints at this time. No acute or adverse events overnight as per nursing staff. Pt denied fever, chills, sob, chest pains, abdominal pain, nausea, vomiting, diarrhea or urinary symptoms. Objective - Vital Signs/Intake and Output Vital Signs (last 24 hours): Temp Pulse Resp BP Pulse Ox 98 F 103 H 18 132/56 L 100 06/29/17 05:21 06/29/17 05:21 06/29/17 05:21 06/29/17 05:21 06/29/17 05:21 Intake and Output: 06/29/17 06/29/17 06:59 18:59 Intake Total 240 Balance 240 - Medications Medications: Current Medications Acetaminophen (Tylenol 325mg Tab) 650 mg PO Q6H PRN PRN Reason: Fever >100.4 F Last Admin: 06/27/17 17:32 Dose: 650 mg Albuterol/Ipratropium (Duoneb 3 Mg/0.5 Mg (3 Ml) Ud) 3 ml IH [id number] [facility] Last Admin: 06/29/17 07:26 Dose: Not Given Aspirin (Aspirin Chewable) 81 mg PO DAILY [facility] Last Admin: 06/29/17 11:34 Dose: 81 mg Atorvastatin Calcium (Lipitor) 20 mg PO DIN [facility] Last Admin: 06/28/17 17:24 Dose: 20 mg Benzonatate (Tessalon Perles) 100 mg PO TID PRN PRN Reason: cough uncontrolled w robitusin Last Admin: 06/27/17 09:16 Dose: 100 mg Calcium Acetate (Phoslo) 667 mg PO WM [facility] Last Admin: 06/29/17 11:44 Dose: Not Given Doxycycline Hyclate (Doryx) 100 mg PO Q12 [facility] PRN Reason: Protocol Last Admin: 06/29/17 11:44 Dose: Not Given Famotidine (Pepcid) 40 mg PO HS [facility] Meropenem 500 mg/ Sodium (Chloride) 50 mls @ 100 mls/hr IVPB Q12 [facility] PRN Reason: Protocol Last Admin: 06/29/17 11:37 Dose: 100 mls/hr Insulin Human Regular (Humulin R Low) 0 units SC ACHS [facility] PRN Reason: Protocol Last Admin: 06/29/17 11:34 Dose: Not Given Isosorbide Mononitrate (Imdur Er) 30 mg PO DAILY [facility] Last Admin: 06/29/17 11:43 Dose: Not Given Levothyroxine Sodium (Synthroid) 50 mcg PO ACB [facility] Last Admin: 06/29/17 11:33 Dose: 50 mcg Lidocaine/Prilocaine (Emla) 1 gm TOP MWF PRN PRN Reason: FOR AV SHUNT NEEDLE INSERTION - Labs Labs: 06/29/17 07:05 06/29/17 07:05 PT 14.0 SECONDS (9.4-12.5) H 06/24/17 13:30 INR 1.22 (0.93-1.08) H 06/24/17 13:30 APTT 28.9 Seconds (25.1-36.5) 06/24/17 13:30 Assessment and Plan - Assessment and Plan (Free Text) Assessment: Sepsis/UTI Pneumonia Abdominal pain, improved maybe multifactoral, Gallstone Anemia, s/p transfusion End stage renal disease on dialysis Diverticulitis Cholelithiasis Elevated troponin Plan: on clear liquids will add Ensure clear, advance diet in am HIDA negative and patient abdominal pain improved Continued GI prophylaxis on oral and IV antibiotics Seen and discussed with Dr. Theodore.
--- NOTE | 2017-06-29 13:40 | PN ---
DATE: SUBJECTIVE: This is an 82-year-old female currently on dialysis this morning. Nursing staff relates that there were no problems during the night. PHYSICAL EXAMINATION: VITAL SIGNS: Temperature of 98 orally, her pulse is recorded at 103, blood pressure is 132/56, respiratory rate is 18, oxygen saturation is 100% on nasal cannula 3 L. GENERAL: The patient is alert. LUNGS: Show rhonchi with diminished breath sounds on the left. HEART: S1 and S2 with a grade 2/6 systolic murmur. ABDOMEN: Soft with positive bowel sounds. EXTREMITIES: Show no evidence of edema. LABORATORY DATA: Shows a WBC of 4.1, RBC of 3.13, hemoglobin 9.3, hematocrit 28.3, platelet count is 78,000. Chemistry shows sodium of 130, potassium 3.8, chloride 93, CO2 of 26. BUN is 43, creatinine is 4.6. Random blood sugar was 118. Her AST is 51, her albumin is 3. ASSESSMENT AND PLAN: 1. The patient is currently receiving antibiotics for left lobe pneumonia, diverticulitis, urinary tract infection, sepsis, positive procalcitonin. 2. She has a non-ST myocardial infarction. 3. She has gallstones. 4. Insulin-dependent diabetes. 5. Hypothyroid disease. 6. Hyperlipidemia. 7. Carotid disease. 8. Arteriosclerotic ischemic heart disease. 9. Chronic anemia. She is being followed by Infectious Disease, on Zyvox, meropenem, and Doryx. She is being followed by Renal and on PhosLo, Protonix. Dialysis four times a week. She is being followed by GI. She is on Synthroid replacement therapy for hypothyroid disease. I have discussed with Infectious Disease the recent blood count results. We will monitor her platelets, hemoglobin, and hematocrit. She has received Aranesp by Nephrology. We will follow up her labs. Cardiology is recommending conservative management at this time. 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 She has a history of paroxysmal atrial fibrillation and valvular heart disease. GI, she had a negative HIDA scan. Her diet is being advanced to full liquids as tolerated, renal diet. She is on GI prophylaxis. She continues to receive treatment for her pneumonia. We will follow up her labs and follow the recommendations of the individual consultants. Shavonne Ascencio MD [facility] # [id number]
--- NOTE | 2017-06-29 16:45 | CP.PCM.PN ---
Subjective - Date & Time of Evaluation Date of Evaluation: 06/29/17 Time of Evaluation: 10:50 - Subjective Subjective: Less abdominal pain, no fevers, still with cough but less. No diarrhea. Objective - Vital Signs/Intake and Output Vital Signs (last 24 hours): Temp Pulse Resp BP Pulse Ox 98 F 103 H 18 132/56 L 100 06/29/17 05:21 06/29/17 05:21 06/29/17 05:21 06/29/17 05:21 06/29/17 05:21 Intake and Output: 06/29/17 06/29/17 06:59 18:59 Intake Total 240 Balance 240 - Medications Medications: Current Medications Acetaminophen (Tylenol 325mg Tab) 650 mg PO Q6H PRN PRN Reason: Fever >100.4 F Last Admin: 06/27/17 17:32 Dose: 650 mg Albuterol/Ipratropium (Duoneb 3 Mg/0.5 Mg (3 Ml) Ud) 3 ml IH [id number] [facility] Last Admin: 06/29/17 07:26 Dose: Not Given Aspirin (Aspirin Chewable) 81 mg PO DAILY [facility] Last Admin: 06/28/17 11:43 Dose: 81 mg Atorvastatin Calcium (Lipitor) 20 mg PO DIN [facility] Last Admin: 06/28/17 17:24 Dose: 20 mg Benzonatate (Tessalon Perles) 100 mg PO TID PRN PRN Reason: cough uncontrolled w robitusin Last Admin: 06/27/17 09:16 Dose: 100 mg Calcium Acetate (Phoslo) 667 mg PO WM [facility] Last Admin: 06/28/17 17:24 Dose: 667 mg Doxycycline Hyclate (Doryx) 100 mg PO Q12 [facility] PRN Reason: Protocol Last Admin: 06/28/17 22:20 Dose: 100 mg Meropenem 500 mg/ Sodium (Chloride) 50 mls @ 100 mls/hr IVPB Q12 [facility] PRN Reason: Protocol Last Admin: 06/28/17 21:32 Dose: 100 mls/hr Vancomycin HCl (Vancomycin 1gm) 1 gm in 250 mls @ 167 mls/hr IVPB STAT STA PRN Reason: Protocol Stop: 06/29/17 11:15 Insulin Human Regular (Humulin R Low) 0 units SC ACHS [facility] PRN Reason: Protocol Last Admin: 06/28/17 22:20 Dose: Not Given Isosorbide Mononitrate (Imdur Er) 30 mg PO DAILY [facility] Last Admin: 06/28/17 11:43 Dose: 30 mg Levothyroxine Sodium (Synthroid) 50 mcg PO ACB [facility] Last Admin: 06/28/17 11:43 Dose: 50 mcg Lidocaine/Prilocaine (Emla) 1 gm TOP MWF PRN PRN Reason: FOR AV SHUNT NEEDLE INSERTION Pantoprazole Sodium (Protonix Ec Tab) 40 mg PO 0600 [facility] Last Admin: 06/29/17 05:18 Dose: Not Given - Labs Labs: 06/29/17 07:05 06/29/17 07:05 PT 14.0 SECONDS (9.4-12.5) H 06/24/17 13:30 INR 1.22 (0.93-1.08) H 06/24/17 13:30 APTT 28.9 Seconds (25.1-36.5) 06/24/17 13:30 - Constitutional Appears: Chronically Ill - Head Exam Head Exam: NORMAL INSPECTION - ENT Exam ENT Exam: Mucous Membranes Moist - Neck Exam Neck Exam: absent: Meningismus - Respiratory Exam Respiratory Exam: Decreased Breath Sounds - Cardiovascular Exam Cardiovascular Exam: +S1, +S2 - GI/Abdominal Exam GI & Abdominal Exam: Soft. absent: Tenderness Assessment and Plan - Assessment and Plan (Free Text) Plan: Assessment sepsis due to E. coli bacteremia probably from acute left sided diverticulitis, as well as left upper lobe HCAP VRE in the urine, R/O contamination (with Edge catheter) history of C. diff. associated diarrhea S/P severe sepsis with acute sigmoid diverticulitis and acute cholecystitis history of acute NSTEMI history of sepsis due to acute descending colon diverticulitis and bilateral lobe healthcare-associated pneumonia history of healthcare-associated pneumonia (right upper lobe, bilateral lower lobes) HTN DM CAD with chronic CHF ESRD on HD Plan continue Merrem and doxycycline (day 6) and will d/c Zyvox since platelets are decreasing; repeat CXR still showing the left upper lobe pneumonia will repeat urine cx overall prognosis is poor
[2017-06-30] MEDS: Albuterol-Ipratrop 3 mg / 0.5 (3 ml) UD IH SCH ×3 (01:33→14:03)
[2017-06-30 07:16] LABS: BASO # 0.01 K/mm3 (0.0-2.0); BASO % 0.2 % (0.0-3.0); EOS % 0.2 % (1.5-5.0); GRAN # 2.65 (1.4-6.5); GRAN % 60.4 % (50.0-68.0); HEMOGLOBIN 9.8 g/dL (12.0-16.0); LYMPH # 1.2 (1.2-3.4); LYMPH % 27.8 % (22.0-35.0); MEAN CELL VOLUME 93.7 fl (80.0-105.0); MEAN CORPUSCULAR HEMOGLOBIN 29.5 pg (25.0-35.0); MEAN CORPUSCULAR HGB CONC 31.5 g/dl (31.0-37.0); MEAN PLATELET VOLUME 9.9 fl (7.0-11.0); MONO # 0.5 (0.1-0.6); MONO % 11.4 % (1.0-6.0); RBC 3.32 10^6/uL (3.5-6.1); RED CELL DISTRIBUTION WIDTH 17.3 % (11.5-14.5); WHITE BLOOD COUNT 4.4 10^3/ul (4.5-11.0)
[2017-06-30 07:28] LABS: ALB/GLOB RATIO 0.7 (1.1-1.8); ALBUMIN 3.1 g/dL (3.0-4.8); CALCIUM 8.9 mg/dL (8.4-10.5)
[2017-06-30] MEDS: Insulin Reg-LOW-Coverage SC SCH ×3 (08:18→18:09)
[2017-06-30] MEDS: Levothyroxine 50 MCG TAB PO SCH (08:37)
[2017-06-30] MEDS: Meropenem 500 MG in Sodium Chloride 0.9% 50 ML IVPB SCH (10:08)
--- NOTE | 2017-06-30 15:51 | PN ---
DATE: 06/30/2017 SUBJECTIVE: The patient is in bed, in no acute distress, nontoxic. No fevers and chills. The patient is seen early this morning in 261, bed 2. OBJECTIVE VITAL SIGNS: Temperature is 98, blood pressure is 120/70, respiratory rate of 18, heart rate of 100. HEENT: Examination is unremarkable. NECK: Supple. LUNGS: Have decreased breath sounds. HEART: Normal S1, S2. ABDOMEN: Soft. LABORATORY: Examination reveals a white count of 4.4, hemoglobin of 9 and platelets of 100,000. Chemistries reveals the patient has a BUN of 25, creatinine of 3.4. Urinalysis is noted and influenza is negative. Microbiology reveals in the blood cultures, there are no growth. ASSESSMENT AND PLAN: This is an 82-year-old female with sepsis due to Escherichia coli bacteremia acute left-sided diverticulitis as well as left upper lobe healthcare-associated pneumonia in a patient with a history of hypertension; diabetes; coronary artery disease; chronic congestive heart failure; end-stage renal disease, on hemodialysis, currently on meropenem and doxycycline day #7 and the patient's initial blood culture, one bottle, grew E-coli whereas the urine culture three days later grew Enterococcus and concerned about the line being infected at dialysis catheterizations. The patient had a negative HIDA scan. CAT scan of the abdomen does show diverticulosis and we will follow closely with you. Jeromy Castellanos MD
[2017-06-30 17:18] VITALS: BP 119/49; PULSE 104; RESP 20; TEMP 97.4
--- NOTE | 2017-07-01 04:02 | PN ---
DATE:06/30/2017 SUBJECTIVE: This patient was seen and evaluated earlier today. The patient feels much better. Her abdominal pain has significantly decreased. PHYSICAL EXAMINATION: VITAL SIGNS: The patient is afebrile, blood pressure is 120/70, respirations 18, heart rate 100. HEENT: Atraumatic, anicteric. NECK: Supple. HEART: S1 and S2 heard. LUNGS: Bilateral air entry present. ABDOMEN: Soft. There is no tenderness at this time to the right upper quadrant area. There is no rebound or guarding. LABORATORY DATA: Hemoglobin 9.8, hematocrit 31.1, WBC 4.4, platelets 100. Chemistry: LFTs normal. IMPRESSION: An 82-year-old patient admitted with sepsis, endstage renal disease, on hemodialysis, history of recurrent diverticulitis. The patient has pneumonia. The patient does have some right-sided abdominal discomfort. HIDA scan showed a visualized gallbladder that had gallstone. The patient has diverticulitis. He has been on antibiotics clinically improving. Follow up the liver function tests. The patient is on meropenem and doxycycline. We will continue the patient on Pepcid. Continue the antibiotics as per Infectious Disease. Other comorbidities include diabetes mellitus; endstage renal disease, on hemodialysis; hypertension. Thank you very much for allowing us to participate in the care of the patient. Ysabel Theodore MD [facility]
--- NOTE | 2017-07-01 13:17 | DS ---
HISTORY OF PRESENT ILLNESS: An 82-year-old female on dialysis four times a week, receiving antibiotic therapy for left lung pneumonia, acute diverticulitis. Patient is currently in dialysis. PHYSICAL EXAMINATION VITAL SIGNS: Her temperature is 98.6, her pulse is 62, her blood pressure is 126/60, her oxygen saturation reported on 2 liters is said to be 100%. LUNGS: Rhonchi with diminished breath sounds at the bases. HEART: S1 and S2 with a grade 2/6 systolic murmur. ABDOMEN: Soft with positive bowel sounds. EXTREMITIES: No evidence of edema. MEDICATIONS: Currently, the patient is on Ecotrin 81 mg daily; Doryx 100 mg q.12h.; EMLA Sunday, Sunday and Sunday to her AV shunt. Fingerstick blood sugar coverage with meals, Imdur 30 mg daily, albuterol treatments q. 6h., Lipitor 20 mg daily, meropenem q. 12h, Pepcid 40 mg at bedtime, PhosLo 667 mg with meals, Synthroid 50 mcg daily, Tessalon Perles and Tylenol p.r.n. LABORATORY DATA: Shows WBC of 4.4, RBC 3.32, hemoglobin 9.8, hematocrit 31.1, platelet count 100,000. Chemistry shows sodium 137, potassium 3.6, chloride 100, BUN is 25, creatinine is 3.4. Random blood sugar is 128. AST is 49. ASSESSMENT AND PLAN: The patient will be transferred to the Transitional Care Unit to continue her medical management and antibiotic therapy and receive physical therapy. She will be monitored by Infectious Disease, GI and Renal. Cardiology has been following the patient at this time. She had a non-ST myocardial infarction, for which they recommended conservative management. She had a HIDA scan to rule out acute cholecystitis, which was negative. Patient will continue current level of care. Shavonne Ascencio MD
--- NOTE | 2017-07-02 08:37 | PN ---
DATE: 06/30/2017 SUBJECTIVE: Stable on IVAB for Enterococcal UTI and E. coli bacteremia and for pneumonia with hemoptysis. MEDICATIONS: Medication list includes that of aspirin, doxycycline, DuoNeb, EMLA cream, insulin, Imdur, Lipitor, meropenem, Pepcid, PhosLo, Synthroid, Tessalon Perles p.r.n. and Tylenol p.r.n. OBJECTIVE INTAKE/OUTPUT: Intake is 390, output is not charted. VITAL SIGNS: Blood pressure is 126/70, temperature 98.6. No fever spikes in the last 24 hours. Pulse is 88, pulse ox is 100%, respiratory rate is 18. HEENT: Normal. NECK: supple , No NVD Resp: clear to Aand P CV: RRR, No S3, no S4. No rub. ABDOMEN: Soft. Bowel sounds normal. Mild discomfort on palpation of her right upper quadrant persists. No left lower quadrant tenderness. No rebound or guarding. EXTREMITIES: Show an AV fistula, left upper extremity. Positive thrill. Positive bruit. No lower extremity cyanosis, clubbing or edema. LABORATORY DATA AND IMAGING: CBC: White blood cell count today at 4.4, hemoglobin 9.8 with a platelet count of 100,000. Chemistry showed normal electrolytes. BUN 25 with a creatinine of 3.4. Glucose is 128. Liver enzymes are normal. Albumin remains low at 3.1. Nuclear scan done on 06/28 to evaluate the biliary tract shows a normal hepatobiliary scan with a patent cystic duct. Microbiology: Repeat blood cultures are negative at 48 hours. Initial blood cultures are positive for E-coli, urine cultures are positive for Enterococcus. ASSESSMENT 1. Escherichia coli bacteremia with Enterococcus urinary tract infection and a left upper lobe and right lower lobe pneumonia with hemoptysis. The patient continues on antibiotic therapy. She has no productive cough. She no longer has any hemoptysis, but her x-ray findings, which are abnormal persist. The patient is following under the guidance of Infectious Disease. 2. The patient initially felt to have acute diverticulitis on admission based on her initial CT scan. She presently is asymptomatic. The source of the E. coli and her blood is not entirely clear. Her biliary tract appears to be okay despite having mild right upper quadrant abdominal pain. Her hepatobiliary scans are negative. 3. Elevated troponin levels, likely cardiac ischemia in the setting of septicemia, diverticulitis and pneumonia. The patient was seen by Cardiology and conservative management is recommended. 4. History of end-stage renal disease. The patient will continue four times a week dialysis. She goes the extra day to prevent congestive heart failure when she returns on Sunday mornings. 4. Hypothyroidism. The patient will continue thyroid replacement therapy. 5. History of secondary hyperparathyroidism. Last phosphorus level was 4.5. The patient will continue binder therapy. 6. History of qnt-[id number] diabetes mellitus. The patient is on sliding scale insulin. 7. History of anemia. Last hemoglobin was 9.8. The patient continues Aranesp, on dialysis per protocol. 8. Status post left ankle fracture. The patient currently does not have the immobilizer in place. PLAN 1. Receive antibiotic therapy. 2. Continue to be monitored on telemetry. 3. Follow up chest x-rays. 4. Follow up all cultures. 5. Cont ID followup. Buck Yanes MD MTDJose J
== END 2017-06-30 19:33 | DRG 871 ==
LOC: ED 12:44 → ERH 16:10 → CCU 17:37 → 2RNO 06-27 19:08
PROVIDERS: ADMIT Internal Medicine; ATTEND Internal Medicine
PROC: 5A1D70Z Performance of Urinary Filtration, Intermittent, Less than 6 Hours Per Day (ICD-10-PCS; principal; 2017-06-25)
PROC: 5A1D70Z Performance of Urinary Filtration, Intermittent, Less than 6 Hours Per Day (ICD-10-PCS; 2017-06-27)
PROC: 5A1D70Z Performance of Urinary Filtration, Intermittent, Less than 6 Hours Per Day (ICD-10-PCS; 2017-06-29)
PROC: 5A1D70Z Performance of Urinary Filtration, Intermittent, Less than 6 Hours Per Day (ICD-10-PCS; 2017-06-30)
DX: A41.51 Sepsis due to Escherichia coli [E. coli] (principal); N18.6 End stage renal disease; I13.2 Hypertensive heart and chronic kidney disease with heart failure and with stage 5 chronic kidney disease, or end stage renal disease; J18.9 Pneumonia, unspecified organism; E11.22 Type 2 diabetes mellitus with diabetic chronic kidney disease; E11.59 Type 2 diabetes mellitus with other circulatory complications; I44.1 Atrioventricular block, second degree; I48.0 Paroxysmal atrial fibrillation; I50.43 Acute on chronic combined systolic (congestive) and diastolic (congestive) heart failure; N39.0 Urinary tract infection, site not specified; J44.0 Chronic obstructive pulmonary disease with (acute) lower respiratory infection; K57.92 Diverticulitis of intestine, part unspecified, without perforation or abscess without bleeding; K80.10 Calculus of gallbladder with chronic cholecystitis without obstruction; N25.81 Secondary hyperparathyroidism of renal origin; I08.1 Rheumatic disorders of both mitral and tricuspid valves; D64.9 Anemia, unspecified; B95.2 Enterococcus as the cause of diseases classified elsewhere; E03.9 Hypothyroidism, unspecified; E78.5 Hyperlipidemia, unspecified; I25.2 Old myocardial infarction; I25.10 Atherosclerotic heart disease of native coronary artery without angina pectoris; I67.9 Cerebrovascular disease, unspecified; K21.9 Gastro-esophageal reflux disease without esophagitis; K29.70 Gastritis, unspecified, without bleeding; K59.00 Constipation, unspecified; S82.65XD Nondisplaced fracture of lateral malleolus of left fibula, subsequent encounter for closed fracture with routine healing; Y95 Nosocomial condition; Z79.4 Long term (current) use of insulin; Z86.010 Personal history of colon polyps; Z87.01 Personal history of pneumonia (recurrent); Z90.710 Acquired absence of both cervix and uterus; Z96.642 Presence of left artificial hip joint; Z99.2 Dependence on renal dialysis

== ENCOUNTER 2017-06-30 19:19 | Inpatient (IN) | payer OTHER ==
[2017-06-30] MEDS ORDERED: Pneumococcal 23-Valent Vaccine IM ONE (20:16)
[2017-06-30] MEDS ORDERED: Influenza Vaccine 60 mcg/0.5 mL SYR (4YR UP) IM ONE (20:16)
[2017-06-30] MEDS: Albuterol-Ipratrop 3 mg / 0.5 (3 ml) UD IH SCH (22:00)
[2017-06-30] MEDS: Insulin Reg-LOW-Coverage SC SCH (22:08)
[2017-07-01] MEDS: Albuterol-Ipratrop 3 mg / 0.5 (3 ml) UD IH SCH ×4 (03:05→21:40)
[2017-07-01] MEDS ORDERED: Meropenem 500 MG in Sodium Chloride 0.9% 50 ML IVPB SCH ×2 (06:00→10:15)
[2017-07-01] MEDS: Levothyroxine 50 MCG TAB PO SCH (06:16)
[2017-07-01] MEDS: Insulin Reg-LOW-Coverage SC SCH ×4 (06:43→21:54)
[2017-07-01 06:59] LABS: EOS % 0.9 % (1.5-5.0); GRAN # 2.19 (1.4-6.5); GRAN % 50.6 % (50.0-68.0); LYMPH # 1.7 (1.2-3.4); LYMPH % 38.3 % (22.0-35.0); MEAN CELL VOLUME 92.3 fl (80.0-105.0); MEAN CORPUSCULAR HEMOGLOBIN 29.5 pg (25.0-35.0); MEAN CORPUSCULAR HGB CONC 31.9 g/dl (31.0-37.0); MEAN PLATELET VOLUME 9.5 fl (7.0-11.0); MONO # 0.4 (0.1-0.6); MONO % 10.2 % (1.0-6.0); RBC 3.39 10^6/uL (3.5-6.1); RED CELL DISTRIBUTION WIDTH 16.9 % (11.5-14.5); WHITE BLOOD COUNT 4.3 10^3/ul (4.5-11.0)
[2017-07-01 07:38] LABS: CALCIUM 8.9 mg/dL (8.4-10.5)
--- NOTE | 2017-07-01 10:48 | PN ---
DATE: SUBJECTIVE: The patient has been transferred to the TCU to complete a course of antibiotic therapy. She is also continuing rehabilitation in the TCU. MEDICATIONS: Medication list reviewed. The patient is on aspirin, doxycycline, DuoNeb, EMLA cream, insulin, Lipitor, Pepcid, PhosLo, Synthroid, Tessalon Perles and Tylenol p.r.n. OBJECTIVE: VITAL SIGNS: Blood pressure is 123/55, temperature 99.7, her respiratory rate is 16 with a pulse of 68. HEENT: Normocephalic, atraumatic. Conjunctivae are pale. Sclerae nonicteric. NECK: Supple. No neck vein distention. CHEST: Clear to auscultation and percussion. No rales, rhonchi or wheezing. CARDIOVASCULAR: Shows a regular rate and rhythm with MR/TR. No S3. No S4. No rub. ABDOMEN: Soft. Bowel sounds normal. No tenderness over her right upper quadrant or right or left lower quadrant areas. No rebound or guarding. EXTREMITIES: Show an AV fistula of left upper extremity. LABORATORY DATA AND IMAGING: Blood work today, CBC, white blood cell count 4.3, hemoglobin stable at 10.0, platelet count is 98,000. Chemistries today showed normal electrolytes. BUN 41 with a creatinine of 5.2. Glucose is 129. Microbiology: Her blood cultures are positive for E. coli and her urine was positive for Enterococcus. This is from her acute care stay. Followup cultures have all been negative. ASSESSMENT: 1. Sepsis with Escherichia coli bacteremia and enterococcus in her urine. The patient had negative gallbladder scans for cholecystitis. Her followup CT scans did not show any evidence of diverticulitis different than her first scan. The patient does have a left upper lobe infiltrate with a healthcare required pneumonia. The patient did come into the hospital with hemoptysis. The patient will complete a course of antibiotic therapy. She has already completed a course of meropenem. 2. End-stage renal disease. The patient will continue receiving dialysis 4 times a week. She tolerated yesterday's dialysis without difficulty. 3. Elevated troponin level, likely coronary ischemia in light of her sepsis and septicemia. The patient was seen by Cardiology. Conservative management was recommended. 4. History of hypertension. Blood pressure is acceptable at present levels. The patient remains on Isordil alone. Her beta leandro therapy was placed on hold. 5. Hypothyroidism. The patient will continue thyroid replacement therapy. 6. History of secondary hyperparathyroidism. The patient will continue renal diet and PhosLo therapy. 7. History of anemia, in part secondary to chronic kidney disease, in part secondary to sepsis and septicemia. The patient will receive Aranesp on dialysis per protocol. She also received transfusions on an as-needed basis. 8. Status post a recent left ankle fracture. The patient is continuing physical therapy in the Transitional Care Unit. PLAN: 1. Hemodialysis scheduled for tomorrow and 4 times a week. 2. Continued followup with ID and GI. 3. Continue rehabilitation in the TCU. 4. Check her phosphorus level with dialysis tomorrow. The patient will continue binder therapy. Buck Yanes MD
--- NOTE | 2017-07-01 20:22 | HP ---
HISTORY OF PRESENT ILLNESS: An 82-year-old female admitted to the transitional care unit. The patient is receiving IV antibiotic therapy for pneumonia, acute diverticulitis. PAST MEDICAL HISTORY: Bimalleolar fracture of the left foot, chronic renal disease, hyperlipidemia, diabetes mellitus, hypothyroid disease, arteriosclerotic heart disease, non-ST myocardial infarction, carotid disease, cholecystitis, cholelithiasis, diverticulosis, congestive heart failure. ALLERGIES: THE PATIENT HAS AN ALLERGY TO CEFTRIAXONE. SOCIAL HISTORY: She is a nonsmoker, nondrinker, nondrug user. ACTIVE MEDICATIONS: Consists of Ecotrin 81 mg daily, albuterol treatments q. 6, EMLA to the dialysis shunt area three times a week p.r.n., sliding insulin scale for her diabetes, Imdur 30 mg daily, Lipitor 20 mg, meropenem q. 24 hours, Pepcid 40 mg daily, PhosLo 667 mg with meals, Synthroid 50 mcg daily, Tessalon Perles 100 mg t.i.d. p.r.n. and Tylenol 2 tabs q. 6 hours p.r.n. for moderate pain. REVIEW OF SYSTEMS: Multiple systems have been reviewed. Pertinent findings are documented on the physical exam. PHYSICAL EXAMINATION: VITAL SIGNS: Show temp of 99.7, pulse 68, respiratory rate 16, oxygen sat is 98% on room air, blood pressure is 123/55. NECK: Supple. LUNGS: Show diminished breath sounds at the bases and rhonchi in the left. HEART: S1 and S2 with grade 2/6 systolic murmur. ABDOMEN: Soft with positive bowel sounds. EXTREMITIES: Show no evidence of edema. She is wearing an ankle support on the left ankle. LABORATORY DATA: Shows a WBC of 4.3, RBC 3.39, hemoglobin 10, hematocrit 31.3, platelet count is 98,000. Chemistry shows sodium 137, potassium 3.6, chloride 100, BUN of 41, creatinine of 5.2. IMPRESSION AND PLAN: The patient is being followed by Renal. She is on dialysis 4 times a week. She is being followed by Cardiology. She has had a non-ST myocardial infarction. She is being followed by GI for history of diverticulosis, diverticulitis and gallstone disease. She is being followed by Orthopedics for a bimalleolar fracture in the left foot. She is being followed by Infectious Disease for her pneumonia and acute diverticulitis. Continue her current medical management as per the individual consultants. Monitor the patient's lab work and continue occupational and physical therapy. Family is aware of the patient's clinical status, medical history and medical problems. Shavonne Ascencio MD
--- NOTE | 2017-07-01 21:10 | CON ---
DATE: ORTHOPEDIC CONSULT HISTORY OF PRESENT ILLNESS: The patient is being followed by me since she came in the hospital first time with a fracture of the left ankle approximately on 05/23/2017, and there was found to have a left ankle pain. The x-rays are very difficult to read on the plain x-ray, but the CAT scan showed a fractured lateral malleolus on 05/24/2017. So I have been treating her with a fracture boot for protection and she could take off it at night, and since the fracture is doing so well, a month later we switched her to an Aircast and instructed how to use this with a well fitting laced shoe to hold the Aircast together around the foot and ankle, and this should go on to uneventful healing, it is a low energy fracture. She has no swelling. She does have some discomfort, but she could take the Aircast off at night and she should eventually heal in another month to the point where she does not need any protection, but for now, she needs the Aircast when she ambulates, because she was getting too weak with the fracture boot and now she will get strength in her muscles safely with the Aircast. We will follow her closely until she heals and get rid of the Aircast in about a month. FINAL DIAGNOSES: Fracture, left lateral malleolus in good position, with osteopenia also. Plan is to wear the Aircast another month, but could remove at night, and I will follow her periodic x-rays. Thank you. Dion Hardy DO
--- NOTE | 2017-07-01 22:09 | CON ---
DATE: LOCATION: The patient is in bed in 314, seen earlier this morning. CHIEF COMPLAINT: Weakness. HISTORY OF PRESENT ILLNESS: A 82-year-old female with past medical history of end-stage renal disease on hemodialysis, coronary artery disease, congestive heart failure, chronic obstructive lung disease, hypertension, diabetes, recent hospitalization, had an acute non-ST elevation IL, and now transferred to transitional care for further care. Infectious Disease consultation was requested. REVIEW OF SYSTEMS: Reveals the patient has no fevers, no chills. She is just complaining of being weak. No nausea or vomiting or chest pain, and no diarrhea or constipation. PAST MEDICAL HISTORY: Significant for end-stage renal disease, on hemodialysis; coronary artery disease, congestive heart failure, COPD, hypertension, diabetes, and [id number] IL. PAST SURGICAL HISTORY: Significant for appendectomy and orthopedic surgery of left hip, and cardiac cath with stent placement. ALLERGIES: THE PATIENT IS ALLERGIC TO CEFTRIAXONE. MEDICATIONS: At home are noted and include tramadol, propranolol, isosorbide, insulin, gabapentin and enoxaparin. PHYSICAL EXAMINATION: GENERAL: The patient is in bed. VITAL SIGNS: Temperature of 99.7, blood pressure is 120/50, respiratory rate 20, heart rate of 68. HEENT: Unremarkable. NECK: Supple. LUNGS: Decreased breath sounds. HEART: Normal S1 and S2. ABDOMEN: Soft, nontender. No organomegaly, no rebound, no guarding, no masses. LABORATORY DATA: Reveal white count of 4.3, hemoglobin of 10, platelets of 98. Chemistries reveal BUN of 41, creatinine of 5.2. AST of 49. Procalcitonin . Urinalysis is noted and too numerous to count wbc's and bacteria. Hepatitis profile is negative. Influenza is negative. Microbiology reveals the blood cultures have been negative. The patient did have positive blood culture on 06/24/2017 which was E. coli, with an Enterococcus . Dr. Theodore's note from yesterday is reviewed and states that patient has recurrent diverticulitis. ASSESSMENT AND PLAN: An 82-year-old female seen earlier today in room 314, with sepsis with Escherichia coli bacteremia with acute left-sided diverticulitis as well as left upper lobe healthcare-associated pneumonia in a patient with hypertension, diabetes, coronary artery disease, chronic congestive heart failure; end-stage renal disease, on hemodialysis; on day #8 of meropenem and doxycycline, and negative HIDA scan, and CAT scan of the abdomen which showed diverticulosis. Not sure if the Escherichia coli in her blood is from diverticulitis. Must consider catheter-related bacteremia. We will discontinue the doxycycline, and we will continue on meropenem, and we will follow with you. Jeromy Castellanos MD
--- NOTE | 2017-07-02 04:44 | DS ---
HISTORY OF PRESENT ILLNESS: An 82-year-old female receiving antibiotic therapy for acute diverticulitis, pneumonia of the left lung, with chronic renal disease, on dialysis 4 times a week, non-ST myocardial infarction, carotid disease, atherosclerotic heart disease, hyperlipidemia, hypothyroid disease, diabetes, bimalleolar fracture of the left foot, to be transferred to the transitional care unit to continue her antibiotic therapy and dialysis therapy. She had a HIDA scan, which was negative. She does have cholelithiasis. MEDICATIONS: Consist of Ecotrin 81 mg daily, doxycycline 100 mg q. 12, albuterol treatments q. 6, EMLA to her AV shunt 3 times a week, sliding insulin scale for coverage, Imdur 30 mg daily, Lipitor 20 mg daily, meropenem mg q. 12, Pepcid 40 mg at bedtime, PhosLo 667 mg with meals, Synthroid 50 mcg daily, Tessalon Perles 100 mg t.i.d. and Tylenol. LABORATORY DATA: WBC is 4.4, RBC is 3.32, hemoglobin 9.8, hematocrit 31, platelet count 100,000. Chemistry showed sodium 137, potassium 3.6, chloride 100, CO2 of 26, BUN is 25, creatinine is 3.4. Her blood sugar was 128. ALT was 49, albumin is 3.1. ASSESSMENT AND PLAN: Patient will continue to be followed by Gastroenterology, Infectious Diseases, Renal and Cardiology. She will receive occupational and physical therapy. Shavonne Ascencio MD
[2017-07-02] MEDS: Meropenem 500 MG in Sodium Chloride 0.9% 50 ML IVPB SCH (05:07)
[2017-07-02] MEDS: Levothyroxine 50 MCG TAB PO SCH (05:38)
[2017-07-02] MEDS: Insulin Reg-LOW-Coverage SC SCH ×4 (06:41→21:50)
[2017-07-02] MEDS: Albuterol-Ipratrop 3 mg / 0.5 (3 ml) UD IH SCH ×4 (07:05→20:35)
--- NOTE | 2017-07-02 10:51 | CP.PCM.PN ---
<Rex Richmond - Last Filed: 07/02/17 10:47> Subjective - Date & Time of Evaluation Date of Evaluation: 07/02/17 Time of Evaluation: 10:00 - Subjective Subjective: GI Progress Note Dr. Theodore Pt was seen and examined at bedside. Pt is for HD today. Pt has no complaints at this time. No acute or adverse events overnight as per nursing staff. Pt denied fever, chills, sob, chest pains, abdominal pain, nausea, vomiting, diarrhea or urinary symptoms. Objective - Vital Signs/Intake and Output Vital Signs (last 24 hours): Temp Pulse Resp BP Pulse Ox 98.4 F 102 H 16 147/60 100 07/02/17 06:00 07/02/17 06:00 07/02/17 06:00 07/02/17 06:00 07/02/17 06:00 - Medications Medications: Current Medications Acetaminophen (Tylenol 325mg Tab) 650 mg PO Q6H PRN PRN Reason: fever above 100.4 Albuterol/Ipratropium (Duoneb 3 Mg/0.5 Mg (3 Ml) Ud) 3 ml IH [id number] [facility] Last Admin: 07/02/17 10:24 Dose: 3 ml Aspirin (Aspirin Chewable) 81 mg PO 0800 [facility] Last Admin: 07/02/17 08:55 Dose: 81 mg Atorvastatin Calcium (Lipitor) 20 mg PO DIN [facility] Last Admin: 07/01/17 17:25 Dose: 20 mg Benzonatate (Tessalon Perles) 100 mg PO TID PRN PRN Reason: cough uncontrolled Last Admin: 07/02/17 08:55 Dose: 100 mg Calcium Acetate (Phoslo) 667 mg PO WM [facility] Last Admin: 07/02/17 08:55 Dose: 667 mg Famotidine (Pepcid) 40 mg PO HS [facility] Last Admin: 07/01/17 21:09 Dose: 40 mg Meropenem 500 mg/ Sodium (Chloride) 50 mls @ 100 mls/hr IVPB 0600 [facility] PRN Reason: Protocol Stop: 07/11/17 06:01 Last Admin: 07/02/17 05:07 Dose: 100 mls/hr Insulin Human Regular (Humulin R Low) 0 units SC ACHS [facility] PRN Reason: Protocol Last Admin: 07/02/17 06:41 Dose: Not Given Isosorbide Mononitrate (Imdur Er) 30 mg PO DAILY [facility] Last Admin: 07/02/17 09:43 Dose: 30 mg Levothyroxine Sodium (Synthroid) 50 mcg PO 0630 [facility] Last Admin: 07/02/17 05:38 Dose: 50 mcg Lidocaine/Prilocaine (Emla) 1 gm TOP MWF PRN PRN Reason: for av shunt - Labs Labs: 07/01/17 06:00 07/01/17 06:00 - Constitutional Appears: No Acute Distress - Head Exam Head Exam: ATRAUMATIC, NORMAL INSPECTION, NORMOCEPHALIC - Eye Exam Eye Exam: EOMI, Normal appearance, PERRL Pupil Exam: NORMAL ACCOMODATION, PERRL - ENT Exam ENT Exam: Mucous Membranes Moist, Normal Exam - Neck Exam Neck Exam: Full ROM, Normal Inspection. absent: Lymphadenopathy - Respiratory Exam Respiratory Exam: Clear to Ausculation Bilateral, NORMAL BREATHING PATTERN - Cardiovascular Exam Cardiovascular Exam: REGULAR RHYTHM, +S1, +S2. absent: Murmur - GI/Abdominal Exam GI & Abdominal Exam: Soft, Normal Bowel Sounds. absent: Tenderness - Back Exam Back Exam: NORMAL INSPECTION - Neurological Exam Neurological Exam: Alert, Awake, CN II-XII Intact, Oriented x3 - Psychiatric Exam Psychiatric exam: Normal Affect, Normal Mood - Skin Skin Exam: Dry, Intact, Normal Color, Warm Assessment and Plan - Assessment and Plan (Free Text) Assessment: Sepsis/UTI HCAP hx multiple polyps E.Coli bacteremia Abdominal pain, improved maybe multifactoral, Gallstone Anemia, s/p transfusion End stage renal disease on dialysis Diverticulitis Cholelithiasis Elevated troponin Plan: on clear liquids will add Ensure clear, advanced as tolerated HIDA negative and patient abdominal pain improved. CT demonstrated diverticulosis Continued GI prophylaxis on oral and IV antibiotics Seen and discussed with Dr. Theodore. <Ysabel Theodore V - Last Filed: 07/02/17 23:39> Objective - Vital Signs/Intake and Output Vital Signs (last 24 hours): Temp Pulse Resp BP Pulse Ox 98.4 F 102 H 18 143/59 L 99 07/02/17 10:00 07/02/17 10:00 07/02/17 10:00 07/02/17 10:00 07/02/17 10:00 - Medications Medications: Current Medications Acetaminophen (Tylenol 325mg Tab) 650 mg PO Q6H PRN PRN Reason: fever above 100.4 Albuterol/Ipratropium (Duoneb 3 Mg/0.5 Mg (3 Ml) Ud) 3 ml IH [id number] [facility] Last Admin: 07/02/17 20:35 Dose: 3 ml Aspirin (Aspirin Chewable) 81 mg PO 0800 [facility] Last Admin: 07/02/17 08:55 Dose: 81 mg Atorvastatin Calcium (Lipitor) 20 mg PO DIN [facility] Last Admin: 07/02/17 17:45 Dose: 20 mg Benzonatate (Tessalon Perles) 100 mg PO TID PRN PRN Reason: cough uncontrolled Last Admin: 07/02/17 08:55 Dose: 100 mg Calcium Acetate (Phoslo) 667 mg PO WM [facility] Last Admin: 07/02/17 17:44 Dose: 667 mg Famotidine (Pepcid) 40 mg PO HS [facility] Last Admin: 07/02/17 21:19 Dose: 40 mg Meropenem 500 mg/ Sodium (Chloride) 50 mls @ 100 mls/hr IVPB 0600 [facility] PRN Reason: Protocol Stop: 07/11/17 06:01 Last Admin: 07/02/17 05:07 Dose: 100 mls/hr Insulin Human Regular (Humulin R Low) 0 units SC ACHS [facility] PRN Reason: Protocol Last Admin: 07/02/17 21:50 Dose: Not Given Isosorbide Mononitrate (Imdur Er) 30 mg PO DAILY [facility] Last Admin: 07/02/17 09:43 Dose: 30 mg Levothyroxine Sodium (Synthroid) 50 mcg PO 0630 [facility] Last Admin: 07/02/17 05:38 Dose: 50 mcg Lidocaine/Prilocaine (Emla) 1 gm TOP MWF PRN PRN Reason: for av shunt - Labs Labs: 07/02/17 13:50 07/02/17 13:50 Attending/Attestation - Attestation I have personally seen and examined this patient.: Yes I have fully participated in the care of the patient.: Yes I have reviewed all pertinent clinical information, including history, physical exam and plan: Yes Notes (Text): This is an addendum to GI consult report dictated by the Java Web Developer.The patient was seen and examined earlier. Medical records, lab studies, imagings were reviewed. Last 24 hours events reviewed. Agreed with the above treatment plan as outlined in Java Web Developer 's notes the with the addition of the following 07/02/17 23:39
--- NOTE | 2017-07-02 13:14 | PN ---
DATE: SUBJECTIVE: The patient is 82 years old on the Transitional Care Unit. Nursing staff relates that there were no problems during the night. PHYSICAL EXAMINATION: VITAL SIGNS: Her temp is 98.4, her pulse is 79 and blood pressure is 147/60. GENERAL: She is alert. LUNGS: Show rhonchi with diminished breath sounds at the bases. ABDOMEN: Soft with positive bowel sounds. EXTREMITIES: Show no evidence of edema. LABORATORY DATA: Fasting blood sugar was 109. MEDICATIONS: She is currently on Ecotrin, albuterol, fingerstick blood sugar coverage, Imdur, Lipitor, meropenem, Pepcid, PhosLo, Synthroid, Tessalon Perles and Tylenol. ASSESSMENT AND PLAN: She is being followed by Infectious Disease, Nephrology, Cardiology and Orthopedics. She has recently had pneumonia with acute diverticulitis with non-ST myocardial infarction. She is on dialysis 4 times a week. Her labs are being done during dialysis today. We will continue current level of care and continue antibiotics as per Infectious Disease. Shavonne Ascencio MD
--- NOTE | 2017-07-02 14:01 | CP.PCM.PN ---
Subjective - Date & Time of Evaluation Date of Evaluation: 07/02/17 Time of Evaluation: 12:55 - Subjective Subjective: Less abdominal pain, still on liquid diet, no vomiting, no diarrhea, no fevers. Objective - Vital Signs/Intake and Output Vital Signs (last 24 hours): Temp Pulse Resp BP Pulse Ox 98.4 F 102 H 16 147/60 100 07/02/17 06:00 07/02/17 06:00 07/02/17 06:00 07/02/17 06:00 07/02/17 06:00 - Medications Medications: Current Medications Acetaminophen (Tylenol 325mg Tab) 650 mg PO Q6H PRN PRN Reason: fever above 100.4 Albuterol/Ipratropium (Duoneb 3 Mg/0.5 Mg (3 Ml) Ud) 3 ml IH [id number] [facility] Last Admin: 07/02/17 10:24 Dose: 3 ml Aspirin (Aspirin Chewable) 81 mg PO 0800 [facility] Last Admin: 07/02/17 08:55 Dose: 81 mg Atorvastatin Calcium (Lipitor) 20 mg PO DIN [facility] Last Admin: 07/01/17 17:25 Dose: 20 mg Benzonatate (Tessalon Perles) 100 mg PO TID PRN PRN Reason: cough uncontrolled Last Admin: 07/02/17 08:55 Dose: 100 mg Calcium Acetate (Phoslo) 667 mg PO WM [facility] Last Admin: 07/02/17 08:55 Dose: 667 mg Famotidine (Pepcid) 40 mg PO HS [facility] Last Admin: 07/01/17 21:09 Dose: 40 mg Meropenem 500 mg/ Sodium (Chloride) 50 mls @ 100 mls/hr IVPB 0600 [facility] PRN Reason: Protocol Stop: 07/11/17 06:01 Last Admin: 07/02/17 05:07 Dose: 100 mls/hr Insulin Human Regular (Humulin R Low) 0 units SC ACHS [facility] PRN Reason: Protocol Last Admin: 07/02/17 06:41 Dose: Not Given Isosorbide Mononitrate (Imdur Er) 30 mg PO DAILY [facility] Last Admin: 07/02/17 09:43 Dose: 30 mg Levothyroxine Sodium (Synthroid) 50 mcg PO 0630 [facility] Last Admin: 07/02/17 05:38 Dose: 50 mcg Lidocaine/Prilocaine (Emla) 1 gm TOP MWF PRN PRN Reason: for av shunt - Labs Labs: 07/01/17 06:00 07/01/17 06:00 - Constitutional Appears: Chronically Ill - Head Exam Head Exam: NORMAL INSPECTION - ENT Exam ENT Exam: Mucous Membranes Moist - Neck Exam Neck Exam: absent: Meningismus - Respiratory Exam Respiratory Exam: Decreased Breath Sounds - Cardiovascular Exam Cardiovascular Exam: +S1, +S2 - GI/Abdominal Exam GI & Abdominal Exam: Soft. absent: Tenderness Assessment and Plan - Assessment and Plan (Free Text) Plan: Assessment sepsis due to E. coli bacteremia probably from acute left sided diverticulitis, as well as left upper lobe HCAP VRE in the urine, R/O contamination (with Edge catheter) history of C. diff. associated diarrhea S/P severe sepsis with acute sigmoid diverticulitis and acute cholecystitis history of acute NSTEMI history of sepsis due to acute descending colon diverticulitis and bilateral lobe healthcare-associated pneumonia history of healthcare-associated pneumonia (right upper lobe, bilateral lower lobes) HTN DM CAD with chronic CHF ESRD on HD Plan continue Merrem (day 9) - complete 10-14 days of antibiotics patient has no indwelling hardware or catheters overall prognosis is poor
[2017-07-02 14:48] LABS: EOS % 0.2 % (1.5-5.0); GRAN # 2.86 (1.4-6.5); GRAN % 63.4 % (50.0-68.0); HEMOGLOBIN 9.7 g/dL (12.0-16.0); LYMPH # 1.3 (1.2-3.4); LYMPH % 28.6 % (22.0-35.0); MEAN CELL VOLUME 91.2 fl (80.0-105.0); MEAN CORPUSCULAR HEMOGLOBIN 29.5 pg (25.0-35.0); MEAN CORPUSCULAR HGB CONC 32.3 g/dl (31.0-37.0); MEAN PLATELET VOLUME 9.4 fl (7.0-11.0); MONO # 0.4 (0.1-0.6); MONO % 7.8 % (1.0-6.0); RBC 3.29 10^6/uL (3.5-6.1); RED CELL DISTRIBUTION WIDTH 16.6 % (11.5-14.5); WHITE BLOOD COUNT 4.5 10^3/ul (4.5-11.0)
[2017-07-02 14:57] LABS: ALB/GLOB RATIO 0.7 (1.1-1.8); CALCIUM 8.8 mg/dL (8.4-10.5)
--- NOTE | 2017-07-02 15:26 | PN ---
DATE: SUBJECTIVE: The patient is currently seen sitting on the commode. She is leaving for dialysis. She is in no acute distress. She is not coughing up any blood. She is continuing physical therapy and rehabilitation in the TCU. She remains on IV antibiotic therapy for her positive blood culture and positive urine cultures along with her pneumonia. MEDICATIONS: Medication list reviewed. The patient is currently on aspirin, DuoNeb, EMLA cream, insulin, Lipitor, meropenem, Pepcid, PhosLo, Synthroid, Tessalon Perles and Tylenol p.r.n. OBJECTIVE: VITAL SIGNS: Blood pressure is 147/60, temperature 98.4, respiratory rate 16 with a pulse of 102. HEENT: Normocephalic, atraumatic. Conjunctivae are pale. Sclerae nonicteric. NECK: Supple. No neck vein distention. CHEST: Clear to auscultation and percussion. No rales, rhonchi or wheezing noted. CARDIOVASCULAR: Regular rate and rhythm with MR/TR. No ST. No S4. No rub. ABDOMEN: Soft. Bowel sounds normal. No tenderness over her right lower quadrant or left lower quadrant areas. No rebound or guarding. EXTREMITIES: AV fistula of left upper extremity. No lower extremity cyanosis, clubbing or edema. LABORATORY DATA AND IMAGING: CBC from yesterday: White blood cell count OF 4.3 with a hemoglobin of 10.0, platelet count is 98,000. Chemistry showed normal electrolytes. BUN 41, creatinine of 5.2. Glucose is 129. The patient will have repeat chemistries done predialysis today. Microbiology: Blood cultures are positive for E. coli and her urine cultures are positive for Enterococcus from acute care. ASSESSMENT: 1. Sepsis with Escherichia coli bacteremia and enterococcus in her urine. Negative gallbladder scans. Her followup abdominal CT scan did not support acute diverticulitis. Nevertheless, the patient is being treated for the above bacteria in her urine and her blood. She did have a left upper lobe infiltrate with a healthcare-required pneumonia. The patient presented with hemoptysis. She will complete her full course of antibiotic therapy. 2. End-stage renal disease. The patient will continue receiving dialysis four times a week. 3. Elevated troponin level. The patient is seen by Cardiology, suggest conservative management. 4. History of hypertension. Blood pressure control is acceptable. 5. Hypothyroidism. The patient will continue thyroid replacement therapy. 6. History of secondary hyperparathyroidism. The patient will continue renal diet and PhosLo therapy. 7. History of anemia, in part secondary to chronic kidney disease, in part secondary to bone marrow suppression from sepsis and septicemia. The patient will continue to receive Aranesp per protocol on dialysis. Transfusions on a p.r.n. basis only. 8. Status post recent left ankle fracture. The patient is continuing physical therapy in the TCU. PLAN: 1. Hemodialysis. The patient is leaving for dialysis presently. 2. Continue followup with ID and GI. 3. Continue rehabilitation in the TCU. Buck Yanes MD
[2017-07-03] MEDS: Albuterol-Ipratrop 3 mg / 0.5 (3 ml) UD IH SCH ×4 (02:40→19:59)
[2017-07-03] MEDS: Meropenem 500 MG in Sodium Chloride 0.9% 50 ML IVPB SCH (05:27)
[2017-07-03] MEDS: Levothyroxine 50 MCG TAB PO SCH (05:30)
[2017-07-03] MEDS: Insulin Reg-LOW-Coverage SC SCH ×4 (06:31→21:54)
--- NOTE | 2017-07-03 11:52 | CP.PCM.PN ---
Subjective - Date & Time of Evaluation Date of Evaluation: 07/03/17 Time of Evaluation: 10:35 - Subjective Subjective: Seen and examined at the bedside earlier today, chart reviewed. Patient denies nausea, vomiting, or abdominal pain. Having formed BM no reports of any overt GI bleed. Patient requesting to eat solid food. No acute overnight events reported. Objective - Vital Signs/Intake and Output Vital Signs (last 24 hours): Temp Pulse Resp BP Pulse Ox 98.4 F 102 H 18 143/59 L 99 07/02/17 10:00 07/02/17 10:00 07/02/17 10:00 07/02/17 10:00 07/02/17 10:00 - Medications Medications: Current Medications Acetaminophen (Tylenol 325mg Tab) 650 mg PO Q6H PRN PRN Reason: fever above 100.4 Albuterol/Ipratropium (Duoneb 3 Mg/0.5 Mg (3 Ml) Ud) 3 ml IH [id number] [facility] Last Admin: 07/03/17 07:17 Dose: 3 ml Aspirin (Aspirin Chewable) 81 mg PO 0800 [facility] Last Admin: 07/03/17 07:38 Dose: 81 mg Atorvastatin Calcium (Lipitor) 20 mg PO DIN [facility] Last Admin: 07/02/17 17:45 Dose: 20 mg Benzonatate (Tessalon Perles) 100 mg PO TID PRN PRN Reason: cough uncontrolled Last Admin: 07/02/17 08:55 Dose: 100 mg Calcium Acetate (Phoslo) 667 mg PO WM [facility] Last Admin: 07/03/17 07:38 Dose: 667 mg Famotidine (Pepcid) 40 mg PO HS [facility] Last Admin: 07/02/17 21:19 Dose: 40 mg Meropenem 500 mg/ Sodium (Chloride) 50 mls @ 100 mls/hr IVPB 0600 [facility] PRN Reason: Protocol Stop: 07/11/17 06:01 Last Admin: 07/03/17 05:27 Dose: 100 mls/hr Insulin Human Regular (Humulin R Low) 0 units SC ACHS [facility] PRN Reason: Protocol Last Admin: 07/03/17 06:31 Dose: Not Given Isosorbide Mononitrate (Imdur Er) 30 mg PO DAILY [facility] Last Admin: 07/03/17 09:54 Dose: 30 mg Levothyroxine Sodium (Synthroid) 50 mcg PO 0630 [facility] Last Admin: 07/03/17 05:30 Dose: 50 mcg Lidocaine/Prilocaine (Emla) 1 gm TOP MWF PRN PRN Reason: for av shunt - Labs Labs: 07/02/17 13:50 07/02/17 13:50 - Constitutional Appears: No Acute Distress - Head Exam Head Exam: NORMOCEPHALIC - Eye Exam Eye Exam: Normal appearance. absent: Scleral icterus - ENT Exam ENT Exam: Mucous Membranes Moist - Neck Exam Neck Exam: Normal Inspection - Respiratory Exam Respiratory Exam: NORMAL BREATHING PATTERN. absent: Respiratory Distress - Cardiovascular Exam Cardiovascular Exam: +S1, +S2 - GI/Abdominal Exam GI & Abdominal Exam: Soft, Normal Bowel Sounds. absent: Guarding, Tenderness, Rebound - Extremities Exam Extremities Exam: absent: Calf Tenderness, Pedal Edema - Neurological Exam Neurological Exam: Alert, Awake, Oriented x3 - Skin Skin Exam: Dry, Warm Assessment and Plan - Assessment and Plan (Free Text) Assessment: ASSESSMENT: Sepsis/UTI HCAP hx multiple polyps E.Coli bacteremia Abdominal pain, improved maybe multifactoral, Gallstone, hepatic congestion, HIDA negative Anemia, s/p transfusion End stage renal disease on dialysis Diverticulitis Cholelithiasis Elevated troponin Plan: advance diet to soft renal diet Continued GI prophylaxis, on Pepcid on Meropenum monitor LFT, CBC discuss diet w/dietitian Seen and discussed with Dr. Theodore.
--- NOTE | 2017-07-03 12:40 | PN ---
DATE: SUBJECTIVE: An 82-year-old female sitting up in bed this morning, feeling better than yesterday was fatigued, however. PHYSICAL EXAMINATION: VITAL SIGNS: Her temp is 98, pulse is 100, blood pressure is 142/60, respiratory rate is 16. GENERAL: She is alert and oriented x3. LUNGS: Show bilateral rhonchi with diminished breath sounds at the bases. HEART: Shows a grade 2/6 systolic murmur with regular rhythm. ABDOMEN: Soft with positive bowel sounds. EXTREMITIES: Show evidence of edema. The patient is receiving dialysis 4 times a week for chronic renal disease. She is completing a course of antibiotics for community-acquired pneumonia with acute diverticulitis. She is receiving Synthroid replacement therapy for hypothyroid disease. She is also status post non-ST myocardial infarction. She is being followed by Renal and Infectious Disease. She is also status post bimalleolar fracture of the left ankle. She is receiving occupational and physical therapy. LABORATORY DATA: Will be done during dialysis. Her last BUN was 59 and creatinine is 6.8. Continue current level of care and continue the course of antibiotics. Shavonne Ascencio MD
--- NOTE | 2017-07-03 17:04 | CP.PCM.PN ---
Subjective - Date & Time of Evaluation Date of Evaluation: 07/03/17 Time of Evaluation: 12:00 - Subjective Subjective: Tolerating liquid diet, no fevers, not in distress. No abdominal pain currently , no diarrhea. Objective - Vital Signs/Intake and Output Vital Signs (last 24 hours): Temp Pulse Resp BP Pulse Ox 98.4 F 102 H 18 143/59 L 99 07/02/17 10:00 07/02/17 10:00 07/02/17 10:00 07/02/17 10:00 07/02/17 10:00 - Medications Medications: Current Medications Acetaminophen (Tylenol 325mg Tab) 650 mg PO Q6H PRN PRN Reason: fever above 100.4 Albuterol/Ipratropium (Duoneb 3 Mg/0.5 Mg (3 Ml) Ud) 3 ml IH [id number] [facility] Last Admin: 07/03/17 07:17 Dose: 3 ml Aspirin (Aspirin Chewable) 81 mg PO 0800 [facility] Last Admin: 07/03/17 07:38 Dose: 81 mg Atorvastatin Calcium (Lipitor) 20 mg PO DIN [facility] Last Admin: 07/02/17 17:45 Dose: 20 mg Benzonatate (Tessalon Perles) 100 mg PO TID PRN PRN Reason: cough uncontrolled Last Admin: 07/02/17 08:55 Dose: 100 mg Calcium Acetate (Phoslo) 667 mg PO WM [facility] Last Admin: 07/03/17 07:38 Dose: 667 mg Famotidine (Pepcid) 40 mg PO HS [facility] Last Admin: 07/02/17 21:19 Dose: 40 mg Meropenem 500 mg/ Sodium (Chloride) 50 mls @ 100 mls/hr IVPB 0600 [facility] PRN Reason: Protocol Stop: 07/11/17 06:01 Last Admin: 07/03/17 05:27 Dose: 100 mls/hr Insulin Human Regular (Humulin R Low) 0 units SC ACHS [facility] PRN Reason: Protocol Last Admin: 07/03/17 06:31 Dose: Not Given Isosorbide Mononitrate (Imdur Er) 30 mg PO DAILY [facility] Last Admin: 07/02/17 09:43 Dose: 30 mg Levothyroxine Sodium (Synthroid) 50 mcg PO 0630 [facility] Last Admin: 07/03/17 05:30 Dose: 50 mcg Lidocaine/Prilocaine (Emla) 1 gm TOP MWF PRN PRN Reason: for av shunt - Labs Labs: 07/02/17 13:50 07/02/17 13:50 - Constitutional Appears: Chronically Ill - Head Exam Head Exam: NORMAL INSPECTION - ENT Exam ENT Exam: Mucous Membranes Moist - Neck Exam Neck Exam: absent: Meningismus - Respiratory Exam Respiratory Exam: Decreased Breath Sounds - Cardiovascular Exam Cardiovascular Exam: +S1, +S2 - GI/Abdominal Exam GI & Abdominal Exam: Soft. absent: Tenderness Assessment and Plan - Assessment and Plan (Free Text) Plan: Assessment sepsis due to E. coli bacteremia probably from acute left sided diverticulitis, as well as left upper lobe HCAP VRE in the urine, R/O contamination (with Edge catheter) history of C. diff. associated diarrhea S/P severe sepsis with acute sigmoid diverticulitis and acute cholecystitis history of acute NSTEMI history of sepsis due to acute descending colon diverticulitis and bilateral lobe healthcare-associated pneumonia history of healthcare-associated pneumonia (right upper lobe, bilateral lower lobes) HTN DM CAD with chronic CHF ESRD on HD Plan continue Merrem (day 10) - complete 10-14 days of antibiotics patient has no indwelling hardware or catheters overall prognosis is poor
--- NOTE | 2017-07-03 20:29 | PN ---
DATE: SUBJECTIVE: The patient is currently seen in TCU. She states she is a little bit more tired today than in past days. She had an uneventful dialysis yesterday. She remains on IV antibiotic therapy for her sepsis, septicemia and healthcare acquired pneumonia. MEDICATIONS: Medication list reviewed. The patient is on aspirin, DuoNeb, Emla cream, insulin, Imdur, Lipitor, meropenem, Pepcid, PhosLo, Synthroid, Tessalon Perles, and Tylenol p.r.n. OBJECTIVE: VITAL SIGNS: Blood pressure is 126/68, temperature is 98.7, pulse is 106 with a respiratory rate of 17, pulse ox is 96%. HEENT: Normocephalic, atraumatic. Conjunctiva pale. Sclerae nonicteric. NECK: Supple. No neck vein distention. CHEST: Clear to auscultation and percussion with no audible rales, rhonchi or wheezing. CARDIOVASCULAR: Regular rate and rhythm with MR/TR. No S3. No S4. No rub. ABDOMEN: Soft. Bowel sounds normal, no tenderness over her right upper quadrant or left lower quadrant areas. No rebound or guarding. EXTREMITIES: AV fistula left upper extremity. No lower extremity cyanosis, clubbing or edema. LABORATORY DATA AND IMAGING: Predialysis lab work from yesterday showed a CBC of 4.5, hemoglobin stable at 9.7, platelet count is 107,000. Chemistry showed normal electrolytes. BUN 59 with a creatinine of 6.8. Calcium 8.8, phosphorus 4, magnesium level 1.7. Microbiology: Blood cultures from acute care were positive for E. coli and her urine cultures are positive for enterococcus. ASSESSMENT: 1. Sepsis with Escherichia coli bacteremia and enterococcus in her urine. Negative gallbladder scans. Followup abdominal CT showed resolution of possible acute diverticulitis. The patient was also noted to have a left upper lobe infiltrate with healthcare acquired pneumonia associated with hemoptysis. She will complete a full course of antibiotic therapy. 2. End-stage renal disease. The patient will continue receiving dialysis 4 times a week. 3. Elevated troponin level. The patient was seen by Cardiology, felt to have acute coronary syndrome and treated conservatively. 4. History of hypertension. Blood pressure control is acceptable. 5. Hypothyroidism. The patient will continue thyroid replacement therapy. 6. History of secondary hyperparathyroidism. The patient will continue renal diet and binder therapy. Phosphorus level is excellent at 4.0. 7. History of anemia in part secondary to chronic kidney disease in part secondary to bone marrow suppression from sepsis and septicemia. The patient will continue receiving maximum dose of Aranesp on dialysis. We will transfuse her only on a p.r.n. basis. 8. Status post left ankle fracture. The patient is continuing rehabilitation and physical therapy in the TCU. PLAN: 1. Hemodialysis for tomorrow and again the patient dialyzes 4 times a week. 2. Continue followup with ID. 3. Continue rehabilitation in the TCU. Buck Yanes MD
[2017-07-04] MEDS: Albuterol-Ipratrop 3 mg / 0.5 (3 ml) UD IH SCH ×4 (01:29→19:11)
[2017-07-04] MEDS: Levothyroxine 50 MCG TAB PO SCH ×2 (05:16→06:58)
[2017-07-04] MEDS: Meropenem 500 MG in Sodium Chloride 0.9% 50 ML IVPB SCH (05:17)
[2017-07-04] MEDS: Lidocaine/Prilocaine 2.5%-2.5% Cream(30 gm) TOP PRN (05:20)
[2017-07-04] MEDS: Insulin Reg-LOW-Coverage SC SCH ×4 (06:55→22:00)
--- NOTE | 2017-07-04 13:18 | PN ---
DATE: SUBJECTIVE: This is an 82-year-old female in dialysis this morning. Nursing relates that she was feeling better this morning. PHYSICAL EXAMINATION: VITAL SIGNS: Her vital signs reported as a temp of 97.7, the pulse was 84, the blood pressure was 128/52, oxygen saturation was reported at 96% on 2 L of nasal oxygen, pulse is 84. LUNGS: Rhonchitic with diminished breath sounds at the bases. HEART: An S1, S2 rhythm. Grade II/ systolic murmur. ABDOMEN: Soft with positive bowel sounds. EXTREMITIES: No evidence of edema. LABORATORY DATA: Pending during dialysis. ASSESSMENT AND PLAN: She currently is receiving the antibiotic therapy, being followed by Infectious Disease for pneumonia and acute diverticulitis. She is on dialysis 4 times a week with chronic renal disease. Synthroid replacement therapy for hypothyroid disease. Respiratory therapy for her chronic obstructive pulmonary disease. Statin therapy for her hyperlipidemia. She is on fingerstick blood sugar coverages for [id number] diabetes and she is on gastrointestinal prophylaxis with Pepcid. I will continue current level of care. Follow the recommendations of the individual consultants. She is being followed by Gastroenterology, Renal and Infectious Disease. Shavonne Ascencio MD
--- NOTE | 2017-07-04 16:50 | PN ---
DATE: SUBJECTIVE: The patient is currently seen having returned to the TCU post dialysis. She had 1.5 L of fluid removed. She had an uneventful dialysis. The patient continues on an IV antibiotic therapy for her sepsis, septicemia and pneumonia. MEDICATIONS: Medication list reviewed. The patient is currently on aspirin, DuoNeb, EMLA, insulin, Imdur, Lipitor, meropenem, Pepcid, PhosLo, Synthroid, Tessalon Perles and Tylenol p.r.n. LABORATORY DATA AND IMAGING: CBC predialysis today: White blood cell count is 4.5 with a hemoglobin of 9.8. Platelet count is 116,000. Chemistries today showed a BUN of 40 with a creatinine of 5.7. Calcium 9.1 with a phosphorus of 3.9. OBJECTIVE: VITAL SIGNS: Blood pressure 128/52, temperature 97.7, respiratory rate 18 with a pulse of 84. HEENT: Normocephalic, atraumatic. Conjunctivae remain pale. Sclerae nonicteric. NECK: Supple. No neck vein distention. CHEST: Clear to auscultation and percussion with no audible rales, rhonchi or wheezing. CARDIOVASCULAR: Shows a regular rate and rhythm with MR/TR. No S3. No S4. No rub. ABDOMEN: Soft. Bowel sounds normal. No tenderness on palpation of her right upper quadrant or left lower quadrant areas. No rebound or guarding. EXTREMITIES: Show AV fistula, left upper extremity. No lower extremity cyanosis, clubbing or edema. ASSESSMENT: 1. Sepsis with Escherichia coli bacteremia and enterococcus in her urine. Negative gallbladder scans. Followup abdominal CT scan showed resolution of possible acute diverticulitis. The patient was also noted to have a left upper lobe infiltrate with a healthcare acquired pneumonia associated with hemoptysis. She will be completing a full course of antibiotics in the Transitional Care Unit. She remains on meropenem. 2. History of end-stage renal disease. The patient will continue receiving dialysis four times a week. 3. History of elevated troponin in the setting of acute coronary syndrome and likely some anterior wall myocardial infarction. The patient is being treated conservatively by Cardiology. 4. History of hypertension. Blood pressure control is acceptable on current medication. 5. Hypothyroidism. Continue thyroid replacement therapy. 6. History of secondary hyperparathyroidism. Calcium and phosphorus remain in an acceptable range. The patient will continue binder therapy and a renal diet. 7. History of anemia, in part secondary to chronic kidney disease and in part secondary to bone marrow suppression from her sepsis, septicemia and pneumonia. The patient will receive Aranesp on dialysis per protocol. She no longer requires any transfusions. 8. Status post left ankle fracture. The patient will continue rehabilitation and exercise in the Transitional Care Unit. PLAN: 1. Continue hemodialysis Sunday, Sunday, Sunday with the extra treatment on Sunday. 2. Complete a course of IV antibiotic therapy. 3. Continue rehabilitation and exercise in the TCU. 4. It is anticipated that the patient will be discharged home post her TCU stay and not return to [facility]. Buck Yanes MD
--- NOTE | 2017-07-04 17:01 | CP.PCM.PN ---
Subjective - Date & Time of Evaluation Date of Evaluation: 07/04/17 Time of Evaluation: 11:05 - Subjective Subjective: Comfortable, no abdominal pain, no fevers. Objective - Vital Signs/Intake and Output Vital Signs (last 24 hours): Temp Pulse Resp BP Pulse Ox 97.7 F 84 18 128/52 L 100 07/03/17 17:45 07/03/17 17:45 07/03/17 17:45 07/03/17 17:45 07/03/17 17:45 - Medications Medications: Current Medications Acetaminophen (Tylenol 325mg Tab) 650 mg PO Q6H PRN PRN Reason: fever above 100.4 Albuterol/Ipratropium (Duoneb 3 Mg/0.5 Mg (3 Ml) Ud) 3 ml IH [id number] [facility] Last Admin: 07/04/17 13:06 Dose: 3 ml Aspirin (Aspirin Chewable) 81 mg PO 0800 [facility] Last Admin: 07/04/17 08:40 Dose: Not Given Atorvastatin Calcium (Lipitor) 20 mg PO DIN [facility] Last Admin: 07/03/17 17:48 Dose: 20 mg Benzonatate (Tessalon Perles) 100 mg PO TID PRN PRN Reason: cough uncontrolled Last Admin: 07/02/17 08:55 Dose: 100 mg Calcium Acetate (Phoslo) 667 mg PO WM [facility] Last Admin: 07/04/17 12:23 Dose: 667 mg Famotidine (Pepcid) 40 mg PO HS [facility] Last Admin: 07/03/17 21:54 Dose: 40 mg Meropenem 500 mg/ Sodium (Chloride) 50 mls @ 100 mls/hr IVPB 0600 [facility] PRN Reason: Protocol Stop: 07/11/17 06:01 Last Admin: 07/04/17 05:17 Dose: Not Given Insulin Human Regular (Humulin R Low) 0 units SC ACHS [facility] PRN Reason: Protocol Last Admin: 07/04/17 12:23 Dose: 1 units Isosorbide Mononitrate (Imdur Er) 30 mg PO DAILY [facility] Last Admin: 07/04/17 10:35 Dose: 30 mg Levothyroxine Sodium (Synthroid) 50 mcg PO 0630 [facility] Last Admin: 07/04/17 06:58 Dose: Not Given Lidocaine/Prilocaine (Emla) 1 gm TOP MWF PRN PRN Reason: for av shunt Last Admin: 07/04/17 05:20 Dose: 1 gm - Labs Labs: 07/02/17 13:50 07/02/17 13:50 - Constitutional Appears: Chronically Ill - Head Exam Head Exam: NORMAL INSPECTION - Neck Exam Neck Exam: absent: Meningismus - Respiratory Exam Respiratory Exam: Decreased Breath Sounds - Cardiovascular Exam Cardiovascular Exam: +S1, +S2 - GI/Abdominal Exam GI & Abdominal Exam: Soft. absent: Tenderness Assessment and Plan - Assessment and Plan (Free Text) Plan: Assessment sepsis due to E. coli bacteremia probably from acute left sided diverticulitis, as well as left upper lobe HCAP VRE in the urine, R/O contamination (with Edge catheter) history of C. diff. associated diarrhea S/P severe sepsis with acute sigmoid diverticulitis and acute cholecystitis history of acute NSTEMI history of sepsis due to acute descending colon diverticulitis and bilateral lobe healthcare-associated pneumonia history of healthcare-associated pneumonia (right upper lobe, bilateral lower lobes) HTN DM CAD with chronic CHF ESRD on HD Plan continue Merrem (day 11) - complete 10-14 days of antibiotics patient has no indwelling hardware or catheters overall prognosis is poor
[2017-07-05] MEDS: Albuterol-Ipratrop 3 mg / 0.5 (3 ml) UD IH SCH ×4 (01:23→21:01)
[2017-07-05] MEDS: Meropenem 500 MG in Sodium Chloride 0.9% 50 ML IVPB SCH (05:53)
[2017-07-05] MEDS: Levothyroxine 50 MCG TAB PO SCH (05:55)
[2017-07-05] MEDS: Insulin Reg-LOW-Coverage SC SCH ×4 (08:15→22:01)
--- NOTE | 2017-07-05 12:38 | PN ---
DATE: SUBJECTIVE: The patient is currently seen getting ready to walk with the physical therapist. She had an uneventful dialysis yesterday. She remains on IV antibiotic therapy for her bacteremia, urinary tract infection and pneumonia. MEDICATIONS: Medication list reviewed. The patient is currently on aspirin, DuoNeb, EMLA cream, insulin, Imdur, Lipitor, meropenem, Pepcid, PhosLo, Synthroid, Tessalon Perles and Tylenol p.r.n. OBJECTIVE: VITAL SIGNS: Blood pressure 102/84, temperature 98.9, respiratory rate is 20 with a pulse of 81. HEENT: Normocephalic, atraumatic. Conjunctivae are pale. Sclerae nonicteric. NECK: Supple. No neck vein distention. CHEST: Clear to auscultation and percussion with no audible rales, rhonchi or wheezing. CARDIOVASCULAR: Shows a regular rate and rhythm with MR/TR. No S3. No S4. No rub. ABDOMEN: Soft. Bowel sounds are normal. No tenderness on palpation of any of the 4 quadrants. No rebound or guarding. EXTREMITIES: Show a left upper extremity AV fistula. No lower extremity cyanosis, clubbing or edema. ASSESSMENT: 1. Sepsis with Escherichia coli bacteremia and Enterococcus in her urine. Negative gallbladder scans. Initial abdominal CT was positive for possible acute diverticulitis. The patient also noted to have a left upper lobe infiltrate with a healthcare-acquired pneumonia. The patient did present with hemoptysis. She is completing a full course of antibiotics in the TCU. She remains on meropenem. 2. End-stage renal disease. The patient will continue 4 times a week dialysis as per her routine. 3. History of elevated troponin with acute coronary syndrome, likely subendocardial wall myocardial infarction. The patient is being treated conservatively by Cardiology. 4. History of hypertension. Blood pressure control acceptable on current medication. 5. Hypothyroidism. Continue thyroid replacement therapy. 6. History of secondary hyperparathyroidism. Calcium and phosphorus levels remain in the normal range. Phosphorus is 3.9 with a calcium of 9.1. The patient will continue binder therapy and a renal diet. 7. History of anemia, in part secondary to chronic kidney disease, in part secondary to bone marrow suppression from her sepsis, septicemia and pneumonia. The patient will receive Aranesp per protocol on dialysis. 8. Status post left ankle fracture. The patient currently has an immobilizer in place. She will get up and walk today with a therapist. PLAN: 1. Continue Sunday, Sunday, Sunday and Sunday dialysis as per her routine. 2. Complete a course of IV antibiotic therapy. 3. It is anticipated that the patient will be discharged home post her stay in the TCU and not go back to subacute rehab. Buck Yanes MD cc:
--- NOTE | 2017-07-05 17:00 | CP.PCM.PN ---
Subjective - Date & Time of Evaluation Date of Evaluation: 07/05/17 Time of Evaluation: 11:55 - Subjective Subjective: No abdominal pain, no fevers, not in distress. Objective - Vital Signs/Intake and Output Vital Signs (last 24 hours): Temp Pulse Resp BP Pulse Ox 97.6 F 116 H 20 107/47 L 100 07/05/17 10:00 07/05/17 10:00 07/05/17 10:00 07/05/17 10:00 07/05/17 10:00 - Medications Medications: Current Medications Acetaminophen (Tylenol 325mg Tab) 650 mg PO Q6H PRN PRN Reason: fever above 100.4 Albuterol/Ipratropium (Duoneb 3 Mg/0.5 Mg (3 Ml) Ud) 3 ml IH [id number] [facility] Last Admin: 07/05/17 13:38 Dose: 3 ml Aspirin (Aspirin Chewable) 81 mg PO 0800 [facility] Last Admin: 07/05/17 08:32 Dose: 81 mg Atorvastatin Calcium (Lipitor) 20 mg PO DIN [facility] Last Admin: 07/04/17 17:38 Dose: 20 mg Benzonatate (Tessalon Perles) 100 mg PO TID PRN PRN Reason: cough uncontrolled Last Admin: 07/02/17 08:55 Dose: 100 mg Calcium Acetate (Phoslo) 667 mg PO WM [facility] Last Admin: 07/05/17 12:33 Dose: 667 mg Famotidine (Pepcid) 40 mg PO HS [facility] Last Admin: 07/04/17 21:29 Dose: 40 mg Meropenem 500 mg/ Sodium (Chloride) 50 mls @ 100 mls/hr IVPB 0600 [facility] PRN Reason: Protocol Stop: 07/11/17 06:01 Last Admin: 07/05/17 05:53 Dose: 100 mls/hr Insulin Human Regular (Humulin R Low) 0 units SC ACHS [facility] PRN Reason: Protocol Last Admin: 07/05/17 12:33 Dose: Not Given Isosorbide Mononitrate (Imdur Er) 30 mg PO DAILY [facility] Last Admin: 07/05/17 10:31 Dose: Not Given Levothyroxine Sodium (Synthroid) 50 mcg PO 0630 [facility] Last Admin: 07/05/17 05:55 Dose: 50 mcg Lidocaine/Prilocaine (Emla) 1 gm TOP MWF PRN PRN Reason: for av shunt Last Admin: 07/04/17 05:20 Dose: 1 gm - Labs Labs: 07/02/17 13:50 07/02/17 13:50 - Constitutional Appears: Chronically Ill - Head Exam Head Exam: NORMAL INSPECTION - ENT Exam ENT Exam: Mucous Membranes Moist - Neck Exam Neck Exam: absent: Meningismus - Respiratory Exam Respiratory Exam: Decreased Breath Sounds - Cardiovascular Exam Cardiovascular Exam: +S1, +S2 - GI/Abdominal Exam GI & Abdominal Exam: Soft. absent: Tenderness Assessment and Plan - Assessment and Plan (Free Text) Plan: Assessment sepsis due to E. coli bacteremia probably from acute left sided diverticulitis, as well as left upper lobe HCAP VRE in the urine, R/O contamination (with Edge catheter) history of C. diff. associated diarrhea S/P severe sepsis with acute sigmoid diverticulitis and acute cholecystitis history of acute NSTEMI history of sepsis due to acute descending colon diverticulitis and bilateral lobe healthcare-associated pneumonia history of healthcare-associated pneumonia (right upper lobe, bilateral lower lobes) HTN DM CAD with chronic CHF ESRD on HD Plan continue Merrem (day 12) - complete 10-14 days of antibiotics patient has no indwelling hardware or catheters overall prognosis is poor
[2017-07-06] MEDS: Albuterol-Ipratrop 3 mg / 0.5 (3 ml) UD IH SCH ×4 (02:00→21:49)
[2017-07-06] MEDS: Meropenem 500 MG in Sodium Chloride 0.9% 50 ML IVPB SCH (05:36)
[2017-07-06] MEDS: Levothyroxine 50 MCG TAB PO SCH (05:37)
[2017-07-06] MEDS: Insulin Reg-LOW-Coverage SC SCH ×4 (06:31→22:06)
--- NOTE | 2017-07-06 08:16 | PN ---
DATE: 07/05/2017 SUBJECTIVE: This patient was seen and evaluated earlier today. The patient is tolerating the diet. No complaints of abdominal pain. PHYSICAL EXAMINATION: VITAL SIGNS: Temperature is 98.8, pulse 83, blood pressure is 131/51. HEENT: Atraumatic, anicteric. NECK: Supple. HEART: S1 and S2 heard. LUNGS: Bilateral air entry present. ABDOMEN: Soft. No tenderness now. LABORATORY DATA: No recent labs. IMPRESSION: 1. This 82-year-old patient admitted with gram-negative sepsis, Enterococcus in the urine, has a gallstone. The patient also has lung infiltrate, possible pneumonia, community acquired, on antibiotics as per Infectious Diseases, meropenem. 2. End-stage renal disease, on hemodialysis. The patient did have elevated troponin level. The patient is tolerating the diet. Continue present management. Continue the antibiotics as per Infectious Diseases. Thank you very much for allowing us to participate in the care of the patient. Ysabel Theodore MD MTDJose J
--- NOTE | 2017-07-06 08:43 | PN ---
DATE: 07/05/2017 SUBJECTIVE: The patient is an 82-year-old female on the Transitional Care Unit receiving occupational and physical therapy. She is receiving antibiotic therapy for pneumonia, community-acquired pneumonia and acute diverticulitis, being followed by Infectious Disease. She is on dialysis four times a week, being followed by Nephrology. The patient being followed by GI for underlying history of diverticulitis. OBJECTIVE VITAL SIGNS: She has a temperature of 98, blood pressure 102/48, respiratory rate is 20, pulse is 81. NECK: Supple. LUNGS: Show bibasilar rhonchi with diminished breath sounds. HEART: Is in S1, S2 rhythm. ABDOMEN: Soft with positive bowel sounds. EXTREMITIES: Show no evidence of edema. Labs to be done during dialysis. She will continue her current course of medication and physical and occupational therapy. Shavonne Ascencio MD
--- NOTE | 2017-07-06 12:16 | CP.PCM.PN ---
Subjective - Date & Time of Evaluation Date of Evaluation: 07/06/17 Time of Evaluation: 11:40 - Subjective Subjective: No abdominal pain, no fevers, still feels weak. Objective - Vital Signs/Intake and Output Vital Signs (last 24 hours): Temp Pulse Resp BP Pulse Ox 98.8 F 83 18 131/51 L 100 07/05/17 17:58 07/05/17 17:58 07/05/17 17:58 07/05/17 17:58 07/05/17 17:58 - Medications Medications: Current Medications Acetaminophen (Tylenol 325mg Tab) 650 mg PO Q6H PRN PRN Reason: fever above 100.4 Albuterol/Ipratropium (Duoneb 3 Mg/0.5 Mg (3 Ml) Ud) 3 ml IH [id number] [facility] Last Admin: 07/06/17 07:24 Dose: 3 ml Aspirin (Aspirin Chewable) 81 mg PO 0800 [facility] Last Admin: 07/05/17 08:32 Dose: 81 mg Atorvastatin Calcium (Lipitor) 20 mg PO DIN [facility] Last Admin: 07/05/17 17:33 Dose: 20 mg Benzonatate (Tessalon Perles) 100 mg PO TID PRN PRN Reason: cough uncontrolled Last Admin: 07/02/17 08:55 Dose: 100 mg Calcium Acetate (Phoslo) 667 mg PO WM [facility] Last Admin: 07/05/17 17:33 Dose: 667 mg Famotidine (Pepcid) 40 mg PO HS [facility] Last Admin: 07/05/17 21:35 Dose: 40 mg Meropenem 500 mg/ Sodium (Chloride) 50 mls @ 100 mls/hr IVPB 0600 [facility] PRN Reason: Protocol Stop: 07/11/17 06:01 Last Admin: 07/06/17 05:36 Dose: 100 mls/hr Insulin Human Regular (Humulin R Low) 0 units SC ACHS [facility] PRN Reason: Protocol Last Admin: 07/06/17 06:31 Dose: Not Given Isosorbide Mononitrate (Imdur Er) 30 mg PO DAILY [facility] Last Admin: 07/05/17 10:31 Dose: Not Given Levothyroxine Sodium (Synthroid) 50 mcg PO 0630 [facility] Last Admin: 07/06/17 05:37 Dose: 50 mcg Lidocaine/Prilocaine (Emla) 1 gm TOP MWF PRN PRN Reason: for av shunt Last Admin: 07/04/17 05:20 Dose: 1 gm - Labs Labs: 07/02/17 13:50 07/02/17 13:50 - Constitutional Appears: Chronically Ill - Head Exam Head Exam: NORMAL INSPECTION - ENT Exam ENT Exam: Mucous Membranes Moist - Neck Exam Neck Exam: absent: Meningismus - Respiratory Exam Respiratory Exam: Decreased Breath Sounds - Cardiovascular Exam Cardiovascular Exam: +S1, +S2 - GI/Abdominal Exam GI & Abdominal Exam: Soft. absent: Tenderness Assessment and Plan - Assessment and Plan (Free Text) Plan: Assessment sepsis due to E. coli bacteremia probably from acute left sided diverticulitis, as well as left upper lobe HCAP VRE in the urine, R/O contamination (with Edge catheter) history of C. diff. associated diarrhea S/P severe sepsis with acute sigmoid diverticulitis and acute cholecystitis history of acute NSTEMI history of sepsis due to acute descending colon diverticulitis and bilateral lobe healthcare-associated pneumonia history of healthcare-associated pneumonia (right upper lobe, bilateral lower lobes) HTN DM CAD with chronic CHF ESRD on HD Plan on Merrem (day 13) - complete 10-14 days of antibiotics patient has no indwelling hardware or catheters currently overall prognosis is poor
[2017-07-06] MEDS: Lidocaine/Prilocaine 2.5%-2.5% Cream(30 gm) TOP PRN (12:47)
--- NOTE | 2017-07-06 14:12 | PN ---
DATE: SUBJECTIVE: An 82-year-old female sitting comfortably in the Transitional Care Unit where she is receiving antibiotic therapy for recent pneumonia; diverticulitis with a history of cholelithiasis; history of bimalleolar fracture of the left ankle; history of chronic renal disease, on dialysis; hyperlipidemia; non-insulin dependent diabetes; hypothyroid disease; non-ST myocardial infarction; carotid artery disease and valvular heart disease. PHYSICAL EXAMINATION VITAL SIGNS: Shows a temperature of 98.8, the pulse is 83, blood pressure is 131/51, respiratory rate is 18, oxygen saturation is reported at 100% on room air. LABORATORY DATA: Random blood sugar was 125 this morning. The patient will receive laboratory data during dialysis. She is being followed by Orthopedics, wearing a special boot for the bimalleolar fracture of the left ankle. She is being followed by Nephrology for her chronic renal disease. She is being followed by Infectious Disease for the pneumonia and she is being followed by GI for the diverticulosis and cholelithiasis history. CURRENT MEDICATIONS: Consists of Ecotrin, albuterol, sliding insulin scale, Imdur, Lipitor, meropenem, Pepcid, PhosLo, Synthroid, Tessalon and Tylenol. dialysis site and continue current level of care and follow the patient's vitals closely. Shavonne Ascencio MD u
--- NOTE | 2017-07-06 14:31 | CP.PCM.PN ---
Subjective - Date & Time of Evaluation Date of Evaluation: 07/06/17 Time of Evaluation: 14:29 - Subjective Subjective: renal follow up note coverage for Dr Yanes no events overnight vitals reviewed s1s2 present no resp distress abd soft ao times 3 no fnd skin normal; psy cooperative heent normal no jvd A&P: ESRD/urosepsis/htn/anemia/sec hyperpth hd mwf, today per schedule lytes reviewed continue binders, monitor phos levels bp ok abx per primary team Objective - Vital Signs/Intake and Output Vital Signs (last 24 hours): Temp Pulse Resp BP Pulse Ox 97.4 F L 78 18 146/56 L 99 07/06/17 10:01 07/06/17 10:01 07/06/17 10:01 07/06/17 10:01 07/06/17 10:01 - Medications Medications: Current Medications Acetaminophen (Tylenol 325mg Tab) 650 mg PO Q6H PRN PRN Reason: fever above 100.4 Albuterol/Ipratropium (Duoneb 3 Mg/0.5 Mg (3 Ml) Ud) 3 ml IH [id number] [facility] Last Admin: 07/06/17 13:09 Dose: 3 ml Aspirin (Aspirin Chewable) 81 mg PO 0800 [facility] Last Admin: 07/06/17 11:06 Dose: 81 mg Atorvastatin Calcium (Lipitor) 20 mg PO DIN [facility] Last Admin: 07/05/17 17:33 Dose: 20 mg Benzonatate (Tessalon Perles) 100 mg PO TID PRN PRN Reason: cough uncontrolled Last Admin: 07/02/17 08:55 Dose: 100 mg Calcium Acetate (Phoslo) 667 mg PO WM [facility] Last Admin: 07/06/17 11:03 Dose: 667 mg Famotidine (Pepcid) 40 mg PO HS [facility] Last Admin: 07/05/17 21:35 Dose: 40 mg Meropenem 500 mg/ Sodium (Chloride) 50 mls @ 100 mls/hr IVPB 0600 [facility] PRN Reason: Protocol Stop: 07/11/17 06:01 Last Admin: 07/06/17 05:36 Dose: 100 mls/hr Insulin Human Regular (Humulin R Low) 0 units SC ACHS [facility] PRN Reason: Protocol Last Admin: 07/06/17 11:06 Dose: Not Given Isosorbide Mononitrate (Imdur Er) 30 mg PO DAILY [facility] Last Admin: 07/06/17 11:10 Dose: Not Given Levothyroxine Sodium (Synthroid) 50 mcg PO 0630 [facility] Last Admin: 07/06/17 05:37 Dose: 50 mcg Lidocaine/Prilocaine (Emla) 1 gm TOP MWF PRN PRN Reason: for av shunt Last Admin: 07/06/17 12:47 Dose: 1 gm - Labs Labs: 07/02/17 13:50 07/02/17 13:50
[2017-07-07] MEDS: Albuterol-Ipratrop 3 mg / 0.5 (3 ml) UD IH SCH ×4 (02:40→19:30)
[2017-07-07] MEDS: Meropenem 500 MG in Sodium Chloride 0.9% 50 ML IVPB SCH (05:45)
[2017-07-07] MEDS: Levothyroxine 50 MCG TAB PO SCH (05:45)
[2017-07-07] MEDS: Insulin Reg-LOW-Coverage SC SCH ×4 (07:00→21:49)
--- NOTE | 2017-07-07 13:18 | CP.PCM.PN ---
Subjective - Date & Time of Evaluation Date of Evaluation: 07/07/17 Time of Evaluation: 13:16 - Subjective Subjective: Nephrology Consultation Note Assessment: Stable Sepsis Diabetic chronic Kidney Disease (E11.22) Hypertensive Chronic Kidney Disease (I12.0) End stage renal disease (N18.6) dependence on hemodialysis (Z99.2) (MWF) via AVF Anemia (D64.9), Hyperphosphatemia (E83.39), Secondary Hyperparathyroidism (E21.1 ), HTN (I12.0) Plan: Will plan for dialysis Sunday as per MW schedule. Continue with Nephrovite 1 tab/day. PRBC as needed for anemia. Last hemoglobin 9.7. Continue with weekly HARRISON Continue with phos binders phoslo last phos level 4 BP control with meds as ordered. Patient not on RAAS leandro as BP control for now. May add if blood pressure high Glycemic control, Dialysis consistent diet Further work up/management as per primary team Dose meds/antibiotics (if needed) for ESRD status. Avoid fleets enema/magnesium based laxatives. Thanks for allowing me to participate in care of your patient. Will follow patient with you. Please call if any Qs Dr Mihir Elizondo Office: [phone] Subjective: Noted events overnight. Patients feels okay. Denies chest pain, palpitation, shortness of breath, leg swelling. All other negative Physical Examination: General Appearance: Comfortable, in no acute respiratory distress, co-operative . Vitals reviewed and noted as below Head; Atraumatic, normocephalic ENT: no ulcers no thrush. Tongue is midline. Oropharynx: no rash or ulcers. EYES: Pupils are equal, round and reactive to light accommodation. Eye muscles and extraocular movement intact. Sclera is anicteric. Neck; supple no lymphadenopathy, no thyromegaly or bruit Lungs: Normal respiratory rate/effort. Breath sounds bilateral equal and clear Heart: Normal rate. s1s2 normal. No rub or gallop. Extremities: no edema. No varicose veins Neurological: Patient is alert, awake and oriented to person, place and time. No focal deficit. Strength bilateral appropriate and equal Skin: Warm and dry. Normal turgor. No rash. Palpitation: Normal elasticity for age Abdomen: Abdomen is soft. Bowel sounds +. There is no abdominal tenderness, no guarding/rigidity or organomegaly Psych: normal insight and normal affect/mood MSK: no joint tenderness or swelling. Digits and nails normal, no deformity : kidney or bladder not palpable Access: AVF Labs/imaging reviewed. Past medical history, past surgical history, family history, social history, allergy reviewed and noted as below Family Hx: no hx of CKD. Non contributory Objective - Vital Signs/Intake and Output Vital Signs (last 24 hours): Temp Pulse Resp BP Pulse Ox 97.3 F L 85 18 136/46 L 100 07/07/17 10:00 07/07/17 10:00 07/07/17 10:00 07/07/17 10:00 07/07/17 10:00 - Medications Medications: Current Medications Acetaminophen (Tylenol 325mg Tab) 650 mg PO Q6H PRN PRN Reason: fever above 100.4 Albuterol/Ipratropium (Duoneb 3 Mg/0.5 Mg (3 Ml) Ud) 3 ml IH [id number] [facility] Last Admin: 07/07/17 07:18 Dose: 3 ml Aspirin (Aspirin Chewable) 81 mg PO 0800 [facility] Last Admin: 07/07/17 11:10 Dose: 81 mg Atorvastatin Calcium (Lipitor) 20 mg PO DIN [facility] Last Admin: 07/06/17 17:41 Dose: Not Given Benzonatate (Tessalon Perles) 100 mg PO TID PRN PRN Reason: cough uncontrolled Last Admin: 07/02/17 08:55 Dose: 100 mg Calcium Acetate (Phoslo) 667 mg PO WM [facility] Last Admin: 07/07/17 11:10 Dose: 667 mg Famotidine (Pepcid) 40 mg PO HS [facility] Last Admin: 07/06/17 22:07 Dose: 40 mg Meropenem 500 mg/ Sodium (Chloride) 50 mls @ 100 mls/hr IVPB 0600 [facility] PRN Reason: Protocol Stop: 07/11/17 06:01 Last Admin: 07/07/17 05:45 Dose: 100 mls/hr Insulin Human Regular (Humulin R Low) 0 units SC ACHS [facility] PRN Reason: Protocol Last Admin: 07/07/17 07:00 Dose: Not Given Isosorbide Mononitrate (Imdur Er) 30 mg PO DAILY [facility] Last Admin: 07/07/17 11:10 Dose: Not Given Levothyroxine Sodium (Synthroid) 50 mcg PO 0630 [facility] Last Admin: 07/07/17 05:45 Dose: 50 mcg Lidocaine/Prilocaine (Emla) 1 gm TOP MWF PRN PRN Reason: for av shunt Last Admin: 07/06/17 12:47 Dose: 1 gm Vitamin B Complex/Vit C/Folic Acid (Nephro-Emiliano) 1 tab PO 0800 [facility] - Labs Labs: 07/02/17 13:50 07/02/17 13:50
--- NOTE | 2017-07-07 16:30 | PN ---
DATE: 07/07/2017 SUBJECTIVE: The patient was seen early this morning in room 312. PHYSICAL EXAMINATION: VITAL SIGNS: Temperature is 97, blood pressure is 130/40, respiratory rate 18. HEENT: Unremarkable. NECK: Supple. LUNGS: Have decreased breath sounds. HEART: Normal S1, S2. ABDOMEN: Soft, nontender. LABORATORY DATA: Reveals a white count of 4.5, hemoglobin of 9, platelets of 107. BUN of 59, creatinine of 6.8. IMPRESSION AND PLAN: This is an 82-year-old female with sepsis with Escherichia coli bacteremia with acute left-sided diverticulitis as well as left upper lobe healthcare-associated pneumonia, vancomycin-resistant Enterococcus in the urine, pneumonia, hypertension, diabetes, day #14 of meropenem. We will discontinue the meropenem after today's last dose. Jeromy Castellanos MD
--- NOTE | 2017-07-07 17:07 | PN ---
DATE: SUBJECTIVE: This is an 82-year-old female on the Transitional Care Unit, comfortable this morning. The patient is on dialysis four times a week with chronic renal disease. She is on sliding insulin scale for her diabetes. She is on statins for her hyperlipidemia. She is on respiratory treatment for her pneumonia as well as meropenem by Infectious Disease. She is on GI prophylaxis. She has a history of diverticulosis with acute diverticulitis. She has hypothyroid disease, on Synthroid replacement therapy. She is on binders as well and being followed by Nephrology. Labs are to be done during dialysis. PHYSICAL EXAMINATION: VITAL SIGNS: Temperature is 97, pulse is 85, blood pressure is 136/46, respiratory rate is 18. HEART: S1, S2 rhythm. ABDOMEN: Soft with positive bowel sounds. LUNGS: Have rhonchi with diminished breath sounds at the bases. EXTREMITIES: Show no evidence of edema. ASSESSMENT AND PLAN: Continue current level of care. Complete antibiotics as per Infectious Disease. She will continue to be followed by individual consultants. She also had a recent a non-ST myocardial infarction. Going to Cardiology's recommendation to conservative care. Shavonne Ascencio MD
[2017-07-08] MEDS: Albuterol-Ipratrop 3 mg / 0.5 (3 ml) UD IH SCH ×3 (01:17→13:22)
--- NOTE | 2017-07-08 02:45 | PN ---
DATE:07/07/2017 SUBJECTIVE: This patient was seen and evaluated earlier today. The patient is feeling much better. She is planning to be discharged tomorrow. The patient denies any abdominal pain. PHYSICAL EXAMINATION: VITAL SIGNS: Temperature is 97.3, pulse 85, blood pressure is 136/46. HEENT: Atraumatic, anicteric. NECK: Supple. HEART: S1 and S2 heard. LUNGS: Bilateral air entry present. ABDOMEN: Soft. There is no tenderness present. IMPRESSION: This is an 82-year-old patient with end-stage renal disease on hemodialysis, Gram-negative sepsis, enterococcus in the urine, has gall stones, history of diverticulitis in the past, admitted with abdominal pain - mainly right-sided abdominal pain. The patient is treated with antibiotics with good clinical improvement. The patient has Escherichia coli bacteremia. The patient has a diverticulosis with left colon thickening, questionable diverticulitis. Possibility to be considered - cholecystitis could be considered. h/o cdiff in the past. Patient also had lung infiltrate. Follow up of the hemoglobin and hematocrit. The patient is on antibiotics as per Infectious Disease. Thank you very much for allowing us to participate in the care of the patient. Ysabel Theodore MD MTDD
[2017-07-08] MEDS: Meropenem 500 MG in Sodium Chloride 0.9% 50 ML IVPB SCH (06:01)
[2017-07-08] MEDS: Levothyroxine 50 MCG TAB PO SCH (06:02)
[2017-07-08] MEDS: Insulin Reg-LOW-Coverage SC SCH ×2 (07:36→12:30)
[2017-07-08] MEDS ORDERED: Multivitamin Vitamin B Complex (Nephro-Vite) Tab PO SCH (08:00)
--- NOTE | 2017-07-08 10:16 | PN ---
DATE: 07/08/2017 SUBJECTIVE: The patient is in bed, in no acute distress. Nontoxic. Was seen earlier today in 314. PHYSICAL EXAMINATION: VITAL SIGNS: Temperature is 98, blood pressure is 130/50, and respiratory rate is 16. HEENT: Unremarkable. NECK: Supple. LUNGS: Have decreased breath sounds. HEART: Normal S1 and S2. ABDOMEN: Soft, nontender. LABORATORY DATA: Reveals a white count of 4.5, hemoglobin of 9, and platelets of 107. Chemistry reveals BUN is 41 and creatinine is 5.2. ASSESSMENT AND PLAN: This is an 82-year-old female who was seen earlier this morning in 314 with sepsis with Escherichia coli bacteremia, left-sided diverticulitis as well as left upper lobe healthcare-associated pneumonia, vancomycin-resistant Enterococci in the urine, hypertension. Yesterday, she completed 14 days of meropenem. Discontinue meropenem. No further antibiotics at this point. The patient for possible discharge today. Jeromy Castellanos MD
--- NOTE | 2017-07-08 10:51 | CP.PCM.PN ---
Subjective - Date & Time of Evaluation Date of Evaluation: 07/08/17 Time of Evaluation: 10:51 - Subjective Subjective: Nephrology Consultation Note for Dr Yanes Assessment: Stable Sepsis Diabetic chronic Kidney Disease (E11.22) Hypertensive Chronic Kidney Disease (I12.0) End stage renal disease (N18.6) dependence on hemodialysis (Z99.2) (MWF) via AVF Anemia (D64.9), Hyperphosphatemia (E83.39), Secondary Hyperparathyroidism (E21.1 ), HTN (I12.0) Plan: Will plan for dialysis Sunday as per MW F schedule. had HD yesterday as extra session. Continue with Nephrovite 1 tab/day. PRBC as needed for anemia. Last hemoglobin 9.7. Continue with weekly HARRISON Continue with phos binders phoslo last phos level 4 BP control with meds as ordered. Patient not on RAAS leandro as BP control for now. May add if blood pressure high Glycemic control, Dialysis consistent diet Further work up/management as per primary team Dose meds/antibiotics (if needed) for ESRD status. Avoid fleets enema/magnesium based laxatives. Thanks for allowing me to participate in care of your patient. Please call if any Qs Dr Mihir Elizondo Office: [phone] Subjective: Noted events overnight. Patients feels okay. Denies chest pain, palpitation, shortness of breath, leg swelling. All other negative Physical Examination: General Appearance: Comfortable, in no acute respiratory distress, co-operative . Vitals reviewed and noted as below Head; Atraumatic, normocephalic ENT: no ulcers no thrush. Tongue is midline. Oropharynx: no rash or ulcers. EYES: Pupils are equal, round and reactive to light accommodation. Eye muscles and extraocular movement intact. Sclera is anicteric. Neck; supple no lymphadenopathy, no thyromegaly or bruit Lungs: Normal respiratory rate/effort. Breath sounds bilateral equal and clear Heart: Normal rate. s1s2 normal. No rub or gallop. Extremities: no edema. No varicose veins Neurological: Patient is alert, awake and oriented to person, place and time. No focal deficit. Strength bilateral appropriate and equal Skin: Warm and dry. Normal turgor. No rash. Palpitation: Normal elasticity for age Abdomen: Abdomen is soft. Bowel sounds +. There is no abdominal tenderness, no guarding/rigidity or organomegaly Psych: normal insight and normal affect/mood MSK: no joint tenderness or swelling. Digits and nails normal, no deformity : kidney or bladder not palpable Access: AVF Labs/imaging reviewed. Past medical history, past surgical history, family history, social history, allergy reviewed and noted as below Family Hx: no hx of CKD. Non contributory Objective - Vital Signs/Intake and Output Vital Signs (last 24 hours): Temp Pulse Resp BP Pulse Ox 97.8 F 103 H 20 135/65 99 07/08/17 06:00 07/08/17 06:00 07/08/17 06:00 07/08/17 06:00 07/08/17 06:00 - Medications Medications: Current Medications Acetaminophen (Tylenol 325mg Tab) 650 mg PO Q6H PRN PRN Reason: fever above 100.4 Albuterol/Ipratropium (Duoneb 3 Mg/0.5 Mg (3 Ml) Ud) 3 ml IH [id number] [facility] Last Admin: 07/08/17 07:08 Dose: 3 ml Aspirin (Aspirin Chewable) 81 mg PO 0800 [facility] Last Admin: 07/08/17 07:55 Dose: 81 mg Atorvastatin Calcium (Lipitor) 20 mg PO DIN [facility] Last Admin: 07/07/17 17:33 Dose: 20 mg Benzonatate (Tessalon Perles) 100 mg PO TID PRN PRN Reason: cough uncontrolled Last Admin: 07/08/17 09:23 Dose: 100 mg Calcium Acetate (Phoslo) 667 mg PO WM [facility] Last Admin: 07/08/17 07:55 Dose: 667 mg Famotidine (Pepcid) 40 mg PO HS [facility] Last Admin: 07/07/17 21:50 Dose: 40 mg Insulin Human Regular (Humulin R Low) 0 units SC ACHS [facility] PRN Reason: Protocol Last Admin: 07/08/17 07:36 Dose: Not Given Isosorbide Mononitrate (Imdur Er) 30 mg PO DAILY [facility] Last Admin: 07/08/17 09:21 Dose: 30 mg Levothyroxine Sodium (Synthroid) 50 mcg PO 0630 [facility] Last Admin: 07/08/17 06:02 Dose: 50 mcg Lidocaine/Prilocaine (Emla) 1 gm TOP MWF PRN PRN Reason: for av shunt Last Admin: 07/06/17 12:47 Dose: 1 gm Vitamin B Complex/Vit C/Folic Acid (Nephro-Emiliano) 1 tab PO 0800 [facility] Last Admin: 07/08/17 07:55 Dose: 1 tab - Labs Labs: 07/02/17 13:50 07/02/17 13:50
[2017-07-08 13:51] VITALS: BP 126/79; PULSE 86; RESP 18; TEMP 97.3; O2SAT 98
--- NOTE | 2017-07-09 | PN ---
DATE: 07/08/2017 SUBJECTIVE: This patient was seen and evaluated earlier today. The patient feels much better. Tolerating the diet. Denies any abdominal pain. PHYSICAL EXAMINATION: VITAL SIGNS: Temperature 97.3, blood pressure is 126/79, pulse 86, respirations 18, O2 saturation . HEENT: Atraumatic, anicteric. NECK: Supple. HEART: S1 and S2 heard. LUNGS: Bilateral air entry present. ABDOMEN: Soft. There is no tenderness. LABORATORY DATA: No recent labs. IMPRESSION: This 82-year-old patient with end-stage renal disease admitted with sepsis. The patient has a lung infiltrate, has cholelithiasis right-sided and epigastric discomfort. The patient had a cholelithiasis and lung infiltrate. The patient also has recurrent diverticulitis in the past, gram-negative sepsis, enterococcus in the urine. The patient was treated with antibiotics with clinical improvement. History of clostridium difficile in the past, presently asymptomatic. PLAN: To be discharged to home. The patient has history of constipation and the patient is clearly told to take the stool softeners on a regular basis. Advised follow up with Dr. Ascencio. Thank you very much for allowing us to participate in the care of the patient. Ysabel Theodore MD
== END 2017-07-08 16:20 | disposition home or self-care (01) | DRG 871 ==
LOC: TRCU 19:19
PROVIDERS: ADMIT Internal Medicine; ATTEND Internal Medicine
PROC: F07Z9FZ Gait Training/Functional Ambulation Treatment using Assistive, Adaptive, Supportive or Protective Equipment (ICD-10-PCS; principal; 2017-07-01)
PROC: 3E0F7GC Introduction of Other Therapeutic Substance into Respiratory Tract, Via Natural or Artificial Opening (ICD-10-PCS; 2017-07-01)
PROC: F08Z4FZ Home Management Treatment using Assistive, Adaptive, Supportive or Protective Equipment (ICD-10-PCS; 2017-07-02)
PROC: 5A1D70Z Performance of Urinary Filtration, Intermittent, Less than 6 Hours Per Day (ICD-10-PCS; 2017-07-02)
PROC: 5A1D70Z Performance of Urinary Filtration, Intermittent, Less than 6 Hours Per Day (ICD-10-PCS; 2017-07-04)
PROC: 5A1D70Z Performance of Urinary Filtration, Intermittent, Less than 6 Hours Per Day (ICD-10-PCS; 2017-07-06)
PROC: 5A1D70Z Performance of Urinary Filtration, Intermittent, Less than 6 Hours Per Day (ICD-10-PCS; 2017-07-07)
DX: A41.51 Sepsis due to Escherichia coli [E. coli] (principal); J18.9 Pneumonia, unspecified organism; I21.4 Non-ST elevation (NSTEMI) myocardial infarction; I13.2 Hypertensive heart and chronic kidney disease with heart failure and with stage 5 chronic kidney disease, or end stage renal disease; K57.92 Diverticulitis of intestine, part unspecified, without perforation or abscess without bleeding; E11.22 Type 2 diabetes mellitus with diabetic chronic kidney disease; N18.6 End stage renal disease; I50.9 Heart failure, unspecified; D63.1 Anemia in chronic kidney disease; E83.39 Other disorders of phosphorus metabolism; N39.0 Urinary tract infection, site not specified; N25.81 Secondary hyperparathyroidism of renal origin; Z79.2 Long term (current) use of antibiotics; I25.10 Atherosclerotic heart disease of native coronary artery without angina pectoris; E78.5 Hyperlipidemia, unspecified; E03.9 Hypothyroidism, unspecified; K80.20 Calculus of gallbladder without cholecystitis without obstruction; K59.00 Constipation, unspecified; Y95 Nosocomial condition; Z99.2 Dependence on renal dialysis; S82.62XD Displaced fracture of lateral malleolus of left fibula, subsequent encounter for closed fracture with routine healing

== ENCOUNTER 2017-07-30 18:16 | Emergency (ER) | payer MEDICARE, OTHER ==
[2017-07-30 18:26] VITALS: RESP 18
[2017-07-30 18:37] VITALS: BMI 21.6
[2017-07-30 20:36] LABS: BASO # 0.01 K/mm3 (0.0-2.0); BASO % 0.2 % (0.0-3.0); EOS % 0.8 % (1.5-5.0); GRAN # 3.6 (1.4-6.5); HEMOGLOBIN 10.7 g/dL (12.0-16.0); LYMPH # 1.1 (1.2-3.4); LYMPH % 21.2 % (22.0-35.0); MEAN CELL VOLUME 97.7 fl (80.0-105.0); MEAN CORPUSCULAR HEMOGLOBIN 31.2 pg (25.0-35.0); MEAN CORPUSCULAR HGB CONC 31.9 g/dl (31.0-37.0); MEAN PLATELET VOLUME 8.8 fl (7.0-11.0); MONO # 0.4 (0.1-0.6); MONO % 7.8 % (1.0-6.0); RBC 3.43 10^6/uL (3.5-6.1); RED CELL DISTRIBUTION WIDTH 21.3 % (11.5-14.5); WHITE BLOOD COUNT 5.1 10^3/ul (4.5-11.0)
[2017-07-30 20:39] LABS: VENOUS BLOOD GAS BASE EXCESS 9.7 mmol/L (0.0-2.0); VENOUS BLOOD GAS PO2 25 mm/Hg (30-55); VENOUS BLOOD PH 7.45 (7.32-7.43)
--- NOTE | 2017-07-30 20:44 | ED PDOC ---
Arrival/HPI - General Chief Complaint: Cough, Cold, Congestion Time Seen by Provider: 07/30/17 18:20 Historian: Patient - History of Present Illness Narrative History of Present Illness (Text): 07/30/17 20:41 Margo Uriarte is an 82 year old female sent in from dialysis, who presents to the emergency department complaining of chronic cough for several days. In emergency department, patient has a dry cough. Patient denies any fever, chills , or any other complaints at this time. Time/Duration: < week Symptom Onset: Gradual Symptom Course: Unchanged Activities at Onset: Light Context: Home Past Medical History - Provider Review Nursing Documentation Reviewed: Yes - Infectious Disease Hx of Infectious Diseases: C.diff - Tetanus Immunization Tetanus Immunization: Unknown - Reproductive Menopause: Yes - Cardiac Hx Cardiac Disorders: Yes Hx Congestive Heart Failure: Yes - Pulmonary Hx Respiratory Disorders: Yes Hx Chronic Obstructive Pulmonary Disease (COPD): Yes Hx Pneumonia: Yes - Neurological Hx Neurological Disorder: Yes (numbnes/tingling left leg and ft) Hx Dizziness: Yes - HEENT Hx HEENT Disorder: Yes Hx Cataracts: Yes (b/l sx) - Renal Hx Renal Failure: Yes - Endocrine/Metabolic Hx Diabetes Mellitus Type 2: Yes - Hematological/Oncological Hx Blood Disorders: Yes Hx Anemia: Yes - Integumentary Hx Dermatological Disorder: No Other/Comment: L arm shunt fas dsg over iy, excellent bruit at site - Musculoskeletal/Rheumatological Hx Falls: Yes (fell & hurt L ankle) - Gastrointestinal Hx Gastrointestinal Disorders: Yes (POOR APPETITE,GERD,DIVERTICULITIS,RECTAL BLEED. H/O C DIFF.) - Genitourinary/Gynecological Hx Genitourinary Disorders: Yes (VRE IN THE URINE.OLIGURIA.ESRD ON HD) Hx Reproductive Disorders: No - Psychiatric Hx Psychophysiologic Disorder: Yes Hx Anxiety: Yes Hx Depression: Yes Hx Substance Use: No - Surgical History Hx Cardiac Catheterization: Yes Hx Hysterectomy: Yes Hx Orthopedic Surgery: Yes (left hip replacement) Other/Comment: desi av shunt - Anesthesia Hx Anesthesia: Yes Hx Anesthesia Reactions: No Hx Malignant Hyperthermia: No - Suicidal Assessment Feels Threatened In Home Enviroment: No Family/Social History Family/Social History: No Known Family HX Smoking Status: Never Smoked Hx Alcohol Use: No Hx Substance Use: No Hx Substance Use Treatment: No Allergies/Home Meds Allergies/Adverse Reactions: Allergies ceftriaxone Allergy (Verified 07/30/17 18:40) ITCHING Home Medications: Home Meds Medication Instructions Recorded Confirmed Fenofibrate [Tricor] 145 mg PO DAILY 04/30/17 06/30/17 Pyridoxine [Vitamin B6] 100 mg PO DAILY 04/30/17 06/30/17 Amino Acids/Protein Hydrolys 30 ml PO DAILY 06/24/17 06/30/17 [Prosource No Carb Liquid Pkt] Calcium Acetate [Phoslo] 667 mg PO TID 06/24/17 06/30/17 Docusate [Colace] 100 mg PO DAILY 06/24/17 06/30/17 Insulin Human Regular [HumuLIN R] 0 units SC PRN PRN 06/24/17 06/30/17 Isosorbide Mononitrate [Imdur] 30 mg PO DAILY 06/24/17 06/30/17 Promethazine DM [Phenergan DM 5 ml PO PRN PRN 06/24/17 06/30/17 Syrup] Review of Systems - Physician Review All systems were reviewed & negative as marked: Yes - Review of Systems Constitutional: absent: Fevers, Night Sweats Eyes: absent: Vision Changes ENT: absent: Hearing Changes Respiratory: Cough Cardiovascular: absent: Chest Pain Gastrointestinal: absent: Abdominal Pain Genitourinary Female: absent: Dysuria Musculoskeletal: absent: Arthralgias Skin: absent: Rash, Pruritis Neurological: absent: Headache Endocrine: absent: Diaphoresis Hemo/Lymphatic: absent: Adenopathy Psychiatric: absent: Anxiety, Depression Physical Exam Vital Signs Reviewed: Yes Vital Signs Temp Pulse Resp BP Pulse Ox 07/31/17 06:00 98.5 F 85 18 115/44 L 98 07/31/17 02:00 97.9 F 86 18 76/32 L 07/31/17 01:00 98.0 F 80 18 110/45 L 07/30/17 23:19 99.9 F H 92 H 18 131/54 L 99 07/30/17 18:25 97.3 F L 78 18 137/55 L 100 Temperature: Afebrile Blood Pressure: Hypotensive Pulse: Regular Respiratory Rate: Normal Appearance: Positive for: Well-Appearing, Non-Toxic, Comfortable Pain Distress: None Mental Status: Positive for: Alert and Oriented X 3 - Systems Exam Head: Present: Atraumatic, Normocephalic Pupils: Present: PERRL Extroacular Muscles: Present: EOMI Conjunctiva: Present: Normal Mouth: Present: Moist Mucous Membranes Pharnyx: Present: Other (Dry Cough) Neck: Present: Normal Range of Motion Respiratory/Chest: Present: Clear to Auscultation, Good Air Exchange. No: Respiratory Distress, Accessory Muscle Use Cardiovascular: Present: Regular Rate and Rhythm, Normal S1, S2. No: Murmurs Abdomen: No: Tenderness, Distention, Peritoneal Signs Back: Present: Normal Inspection Upper Extremity: Present: Normal Inspection. No: Cyanosis, Edema Lower Extremity: Present: Normal Inspection. No: Edema Neurological: Present: GCS=15, CN II-XII Intact, Speech Normal Skin: Present: Warm, Dry, Normal Color. No: Rashes Psychiatric: Present: Alert, Oriented x 3, Normal Insight, Normal Concentration Medical Decision Making ED Course and Treatment: 07/30/17 20:43 Impression: 82 year old female sent in from dialysis complaining of chronic cough for several days. Plan: -- Chest X-ray -- VBG and Blood Culture -- Labs -- Reassess and disposition Prior Visits: Notes and results from previous visits were reviewed. Patient was last seen in the emergency department on 06/24/17 for increased cough and episodes of blood tinged sputum for a few days. Patient was admitted to ICU for further evaluation. Progress Notes: 07/30/17 22:20 CXR Impression: As read by me, Volume overload. 07/30/17 22:[address] Ascencio. 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 07/30/17 22:[address] Ascencio reports Dr. Yanes wants patient to receive dialysis treatment in the ER and will be discharged and follow up. 07/31/17 03:00 On reevaluation the patient received her dialysis and feels better and is in no acute distress. I have discussed the results and plan with the patient, who expresses understanding. Patient given the opportunity to ask question, all questions were answered and there is agreement with the plan to discharge the patient home. Patient is stable for discharge. Patient was instructed to follow up with physician/clinic in 1-2 days or return if symptoms persist/ worsen or new concerning symptoms arise.. - Lab Interpretations Microbiology Results: Microbiology Results 07/30/17 20:50 Blood-Venous Blood Culture - Preliminary NO GROWTH AFTER 3 DAYS 07/30/17 20:20 Blood-Venous Blood Culture - Preliminary NO GROWTH AFTER 3 DAYS Lab Results: 07/30/17 20:20 07/30/17 20:20 Lab Results 07/30/17 20:20: Sodium 140, Chloride 94 L, Potassium 3.1 L, Carbon Dioxide 31, Anion Gap 18, BUN 22 H, Creatinine 2.7 H, Est GFR ( Amer) 20, Est GFR ( Non-Af Amer) 17, Random Glucose 117 H, Calcium 8.8, Total Bilirubin 1.0, AST 49 H, ALT 18, Alkaline Phosphatase 102, Total Protein 9.0 H, Albumin 4.0, Globulin 4.9, Albumin/Globulin Ratio 0.8 L 07/30/17 20:20: pO2 25 L, VBG pH 7.45 H, VBG pCO2 51.0, VBG HCO3 35.4 H, VBG Total CO2 37.0 H, VBG O2 Sat (Calc) 45.3, VBG Base Excess 9.7 H, VBG Potassium 3.1 L, Sodium 137.0, Chloride 97.0 L, Glucose 119 H, Lactate 1.1, FiO2 21.0, Venous Blood Potassium 3.1 L 07/30/17 20:20: PT 12.5, INR 1.09 H 07/30/17 20:20: WBC 5.1, RBC 3.43 L, Hgb 10.7 L, Hct 33.5 L, MCV 97.7 D, MCH 31.2, MCHC 31.9, RDW 21.3 H, Plt Count 150, MPV 8.8, Gran % 70.0 H, Lymph % ( Auto) 21.2 L, Levy % (Auto) 7.8 H, Eos % (Auto) 0.8 L, Baso % (Auto) 0.2, Gran # 3.60, Lymph # (Auto) 1.1 L, Levy # (Auto) 0.4, Eos # (Auto) 0.0, Baso # (Auto ) 0.01 I have reviewed the lab results: Yes - RAD Interpretation Radiology Orders: 07/30/17 19:02 CXR [CHEST PORTABLE] [RAD] Stat - Medication Orders Current Medication Orders: Discontinued Medications Albuterol Sulfate (Albuterol 0.083% Inhal Myra (2.5 Mg/3 Ml) Ud) 5 mg INH STAT STA Stop: 07/30/17 22:20 Last Admin: 07/30/17 22:48 Dose: 5 mg Albuterol/Ipratropium (Duoneb 3 Mg/0.5 Mg (3 Ml) Ud) 3 ml IH STAT STA Stop: 07/30/17 22:20 Last Admin: 07/30/17 22:48 Dose: 3 ml Promethazine HCl/Codeine (Phenergan/Codeine Oral Syrup) 5 ml PO STAT STA Stop: 07/30/17 22:20 Last Admin: 07/30/17 22:48 Dose: 5 ml - Scribe Statement The provider has reviewed the documentation as recorded by the Kyle Marcus Provider Scribe Attestation: All medical record entries made by the Scribe were at my direction and personally dictated by me. I have reviewed the chart and agree that the record accurately reflects my personal performance of the history, physical exam, medical decision making, and the department course for this patient. I have also personally directed, reviewed, and agree with the discharge instructions and disposition. Disposition/Present on Arrival - Present on Arrival Any Indicators Present on Arrival: No History of DVT/PE: No History of Uncontrolled Diabetes: No Urinary Catheter: No History of Decub. Ulcer: No History Surgical Site Infection Following: None - Disposition Have Diagnosis and Disposition been Completed?: Yes Diagnosis: ESRD (end stage renal disease) on dialysis, Volume overload Disposition: HOME/ ROUTINE Disposition Time: 02:58 Patient Plan: Discharge Condition: GOOD Discharge Instructions (ExitCare): Kidney Failure (DC), Chronic Kidney Disease (DC) Additional Instructions: Return to us if any problems Referrals: Shavonne Ascencio MD [Primary Care Provider] - Follow up with primary Forms: [facility] (Hebrew)
[2017-07-30 20:56] LABS: ALB/GLOB RATIO 0.8 (1.1-1.8); CALCIUM 8.8 mg/dL (8.4-10.5)
[2017-07-30 20:59] LABS: INR 1.09 (0.93-1.08); PROTHROMBIN TIME 12.5 SECONDS (9.4-12.5)
[2017-07-30] MEDS ORDERED: Albuterol-Ipratrop 3 mg / 0.5 (3 ml) UD IH STA (22:19)
[2017-07-30] MEDS ORDERED: Albuterol 0.083% Inhal Sol (2.5 mg/3 mL) UD INH STA (22:19)
[2017-07-30] MEDS ORDERED: Promethazine/Cod 6.25mg-10mg/5ml Syr UD PO STA (22:19)
[2017-07-31 07:06] VITALS: BP 115/44; PULSE 85; TEMP 98.5; O2SAT 98
--- NOTE | 2017-07-31 08:30 | RAD ---
HISTORY: Chronic Cough COMPARISON: 06/27/2017 FINDINGS: LUNGS: The lungs are well inflated. There is bibasilar atelectasis. There is severe pulmonary venous congestion. PLEURA: No significant pleural effusion identified, no pneumothorax apparent. CARDIOVASCULAR: There is persistent moderate cardiomegaly. OSSEOUS STRUCTURES: Within normal limits for the patient's age. VISUALIZED UPPER ABDOMEN: Normal. OTHER FINDINGS: None. IMPRESSION: Persistent moderate cardiomegaly and severe pulmonary venous congestion.
== END 2017-07-31 07:00 | disposition home or self-care (01) ==
LOC: ED 18:16
DX: N18.6 End stage renal disease (principal); Z99.2 Dependence on renal dialysis; E87.70 Fluid overload, unspecified; E11.9 Type 2 diabetes mellitus without complications
CPT/HCPCS: 71045; 80053; 82803; 85025; 85610; 87040; 99285; G0257

== ENCOUNTER 2017-08-25 11:56 | Inpatient (IN) | payer MEDICARE, OTHER ==
[2017-08-25] MEDS ORDERED: Pantoprazole 40 MG in Sodium Chloride 0.9% 100 ML IV STA (12:35)
--- NOTE | 2017-08-25 12:40 | ED PDOC ---
Arrival/HPI - General Chief Complaint: Abdominal Pain Time Seen by Provider: 08/25/17 12:28 Historian: Patient - History of Present Illness Time/Duration: Other (Several days) Symptom Onset: Gradual Symptom Course: Worsening Quality: Aching Severity Level: Moderate Activities at Onset: Rest Associated Symptoms (Text): 08/25/17 12:37 Sent to the emergency department from dialysis. Patient did not have dialysis. Complains of several days of right upper quadrant pain along with nausea vomiting and no by mouth intake. No diarrhea. No fever. No radiation. Past Medical History - Provider Review Nursing Documentation Reviewed: Yes - Infectious Disease Hx of Infectious Diseases: C.diff - Tetanus Immunization Tetanus Immunization: Unknown - Cardiac Hx Cardiac Disorders: Yes Hx Congestive Heart Failure: Yes - Pulmonary Hx Respiratory Disorders: Yes Hx Chronic Obstructive Pulmonary Disease (COPD): Yes Hx Pneumonia: Yes - Neurological Hx Neurological Disorder: Yes (numbnes/tingling left leg and ft) Hx Dizziness: Yes - HEENT Hx HEENT Disorder: Yes Hx Cataracts: Yes (b/l sx) - Renal Hx Renal Failure: Yes - Endocrine/Metabolic Hx Diabetes Mellitus Type 2: Yes - Hematological/Oncological Hx Blood Disorders: Yes Hx Anemia: Yes - Integumentary Hx Dermatological Disorder: No Other/Comment: L arm shunt fas dsg over iy, excellent bruit at site - Musculoskeletal/Rheumatological Hx Falls: Yes (fell & hurt L ankle) - Gastrointestinal Hx Gastrointestinal Disorders: Yes (POOR APPETITE,GERD,DIVERTICULITIS,RECTAL BLEED. H/O C DIFF.) - Genitourinary/Gynecological Hx Genitourinary Disorders: Yes (VRE IN THE URINE.OLIGURIA.ESRD ON HD) Hx Reproductive Disorders: No - Psychiatric Hx Psychophysiologic Disorder: Yes Hx Anxiety: Yes Hx Depression: Yes Hx Substance Use: No - Surgical History Hx Cardiac Catheterization: Yes Hx Hysterectomy: Yes Hx Orthopedic Surgery: Yes (left hip replacement) Other/Comment: desi av shunt - Anesthesia Hx Anesthesia: Yes Hx Anesthesia Reactions: No Hx Malignant Hyperthermia: No - Suicidal Assessment Feels Threatened In Home Enviroment: No Family/Social History - Physician Review Nursing Documentation Reviewed: Yes Family/Social History: Unknown Family HX Smoking Status: Never Smoked Hx Alcohol Use: No Hx Substance Use: No Hx Substance Use Treatment: No Allergies/Home Meds Allergies/Adverse Reactions: Allergies ceftriaxone Allergy (Verified 08/25/17 12:11) ITCHING Home Medications: Home Meds Medication Instructions Recorded Confirmed Fenofibrate [Tricor] 145 mg PO DAILY 04/30/17 08/25/17 Pyridoxine [Vitamin B6] 100 mg PO DAILY 04/30/17 08/25/17 Amino Acids/Protein Hydrolys 30 ml PO DAILY 06/24/17 08/25/17 [Prosource No Carb Liquid Pkt] Calcium Acetate [Phoslo] 667 mg PO TID 06/24/17 08/25/17 Docusate [Colace] 100 mg PO DAILY 06/24/17 08/25/17 Insulin Human Regular [HumuLIN R] 0 units SC PRN PRN 06/24/17 08/25/17 Isosorbide Mononitrate [Imdur] 30 mg PO DAILY 06/24/17 08/25/17 Review of Systems - Physician Review All systems were reviewed & negative as marked: Yes - Review of Systems Constitutional: Fatigue. absent: Fevers Respiratory: Cough. absent: SOB, Sputum, Wheezing Cardiovascular: absent: Chest Pain, Palpitations, Syncope Gastrointestinal: Abdominal Pain, Nausea, Vomiting, Anorexia. absent: Diarrhea Neurological: absent: Headache, Dizziness Physical Exam Vital Signs Reviewed: Yes Vital Signs Temp Pulse Resp BP Pulse Ox 08/25/17 12:19 113/39 L 08/25/17 12:16 98.1 F 58 L 16 113/37 L 96 Temperature: Afebrile Blood Pressure: Normal Pulse: Regular Respiratory Rate: Normal Appearance: Positive for: Well-Appearing, Non-Toxic, Uncomfortable Pain Distress: Moderate Mental Status: Positive for: Alert and Oriented X 3 - Systems Exam Head: Present: Atraumatic, Normocephalic Pupils: Present: PERRL Extroacular Muscles: Present: EOMI Conjunctiva: Present: Normal Mouth: Present: Moist Mucous Membranes Pharnyx: No: ERYTHEMA, EXUDATE, TONSILS ENLARGED Neck: Present: Normal Range of Motion Respiratory/Chest: Present: Clear to Auscultation, Good Air Exchange. No: Respiratory Distress, Accessory Muscle Use Cardiovascular: Present: Regular Rate and Rhythm, Normal S1, S2. No: Murmurs Abdomen: Present: Tenderness, Normal Bowel Sounds, Guarding, Other (Moderate right upper quadrant tenderness with voluntary guarding.). No: Distention, Peritoneal Signs, Rebound Back: Present: Normal Inspection Upper Extremity: Present: Normal Inspection. No: Cyanosis, Edema Lower Extremity: Present: Normal Inspection. No: Edema Neurological: Present: GCS=15, CN II-XII Intact, Speech Normal, Motor Func Grossly Intact Skin: Present: Warm, Dry, Normal Color. No: Rashes Psychiatric: Present: Alert, Oriented x 3, Normal Insight, Normal Concentration Medical Decision Making ED Course and Treatment: 08/25/17 12:39 EKG shows normal sinus rhythm rate approximately 75 with a primary AV block and nonspecific intraventricular conduction delay with poor R-wave progression and nonspecific ST and T wave changes similar to EKG from 06/25/2017. 08/25/17 13:30 Chest X-ray: Creator : Luciano Rain MD COMPARISON: Comparison chest 07/30/2017 FINDINGS: LUNGS: Interval progression pulmonary venous congestion PLEURA: No significant pleural effusion identified, no pneumothorax apparent. CARDIOVASCULAR: Normal. OSSEOUS STRUCTURES: No significant abnormalities. VISUALIZED UPPER ABDOMEN: Normal. OTHER FINDINGS: None. IMPRESSION: Interval progression pulmonary venous congestion. 08/25/17 14:58 Discussed in detail with . Patient frequently has elevated troponin with no chest pain. Cholelithiasis on ultrasound. No fluid. Lipase and liver function tests are normal. Normal bilirubin. Patient did have pain in the right upper quadrant and tenderness in the right upper quadrant consistent with cholecystitis. She will be placed on telemetry. Dr. Ascencio requested consults with nephrology cardiology and gastroenterology which have been placed for him. - Lab Interpretations Lab Results: 08/25/17 13:17 08/25/17 13:17 Lab Results 08/25/17 13:17: Sodium 141, Potassium 3.6, Chloride 98, Carbon Dioxide 30, Anion Gap 17, BUN 21, Creatinine 3.4 H, Est GFR ( Amer) 16, Est GFR (Non- Af Amer) 13, Random Glucose 160 H, Calcium 8.0 L, Total Bilirubin 1.3, AST 51 H , ALT 12, Alkaline Phosphatase 65, Lactate Dehydrogenase 398, Total Creatine Kinase 26 L, Troponin I 0.67 H* D, Total Protein 7.5, Albumin 3.0, Globulin 4.4 , Albumin/Globulin Ratio 0.7 L, Amylase 38, Lipase 17 L 08/25/17 13:17: PT 15.7 H, INR 1.36 H, APTT 29.4 08/25/17 13:17: WBC 7.7 D, RBC 3.17 L, Hgb 9.7 L, Hct 30.4 L, MCV 95.9, MCH 30.6, MCHC 31.9, RDW 19.2 H, Plt Count 139, MPV 9.0, Gran % 81.5 H, Lymph % ( Auto) 11.5 L, Chaves % (Auto) 6.3 H, Eos % (Auto) 0.7 L, Baso % (Auto) 0.0, Gran # 6.24, Lymph # (Auto) 0.9 L, Chaves # (Auto) 0.5, Eos # (Auto) 0.1, Baso # (Auto ) 0.00 - RAD Interpretation Radiology Orders: 08/25/17 12:35 ABDOMEN COMPLETE [US] Stat 08/25/17 12:36 CHEST PORTABLE [RAD] Stat Behavioral Analyst: Radiologist - Medication Orders Current Medication Orders: Discontinued Medications Pantoprazole Sodium 40 mg/ (Sodium Chloride) 100 mls @ 400 mls/hr IV STAT STA Stop: 08/25/17 12:49 Last Admin: 08/25/17 13:15 Dose: 400 mls/hr eMAR Start Stop Document 08/25/17 13:15 OCS (Rec: 08/25/17 13:16 OCS [id number]) Intravenous Solution Start Date 08/25/17 Start Time 13:15 End Date 08/25/17 End time 13:30 Total Infusion Time 15 Ondansetron HCl (Zofran Inj) 4 mg IVP STAT STA Stop: 08/25/17 12:36 Last Admin: 08/25/17 13:10 Dose: 4 mg IVP Administration Document 08/25/17 13:10 OCS (Rec: 08/25/17 13:10 OCS [id number]) Charges for Administration # of IVP Administrations 1 - Scribe Statement The provider has reviewed the documentation as recorded by the Kyle Aragon Provider Scribe Attestation: All medical record entries made by the Scribe were at my direction and personally dictated by me. I have reviewed the chart and agree that the record accurately reflects my personal performance of the history, physical exam, medical decision making, and the department course for this patient. I have also personally directed, reviewed, and agree with the discharge instructions and disposition. Disposition/Present on Arrival - Present on Arrival Any Indicators Present on Arrival: No History of DVT/PE: No History of Uncontrolled Diabetes: No Urinary Catheter: No History of Decub. Ulcer: No History Surgical Site Infection Following: None - Disposition Have Diagnosis and Disposition been Completed?: Yes Diagnosis: ESRD (end stage renal disease) on dialysis, Elevated troponin, Abdominal pain in female patient Disposition: HOSPITALIZED Disposition Time: 15:00 Patient Plan: Observation, Telemetry Condition: FAIR Referrals: Shavonne Ascencio MD [Primary Care Provider] - Follow up with primary Forms: [facility] (Thai)
--- NOTE | 2017-08-25 13:27 | RAD ---
HISTORY: AP. COMPARISON: Comparison chest 07/30/2017 FINDINGS: LUNGS: Interval progression pulmonary venous congestion PLEURA: No significant pleural effusion identified, no pneumothorax apparent. CARDIOVASCULAR: Normal. OSSEOUS STRUCTURES: No significant abnormalities. VISUALIZED UPPER ABDOMEN: Normal. OTHER FINDINGS: None. IMPRESSION: Interval progression pulmonary venous congestion.
[2017-08-25 13:36] LABS: EOS # 0.1 (0.0-0.7); EOS % 0.7 % (1.5-5.0); GRAN # 6.24 (1.4-6.5); GRAN % 81.5 % (50.0-68.0); HEMOGLOBIN 9.7 g/dL (12.0-16.0); LYMPH # 0.9 (1.2-3.4); LYMPH % 11.5 % (22.0-35.0); MEAN CELL VOLUME 95.9 fl (80.0-105.0); MEAN CORPUSCULAR HEMOGLOBIN 30.6 pg (25.0-35.0); MEAN CORPUSCULAR HGB CONC 31.9 g/dl (31.0-37.0); MONO # 0.5 (0.1-0.6); MONO % 6.3 % (1.0-6.0); RBC 3.17 10^6/uL (3.5-6.1); RED CELL DISTRIBUTION WIDTH 19.2 % (11.5-14.5); WHITE BLOOD COUNT 7.7 10^3/ul (4.5-11.0)
[2017-08-25 13:45] LABS: INR 1.36 (0.93-1.08); PARTIAL THROMBOPLASTIN TIME 29.4 Seconds (25.1-36.5); PROTHROMBIN TIME 15.7 SECONDS (9.4-12.5)
[2017-08-25 13:49] LABS: ALB/GLOB RATIO 0.7 (1.1-1.8)
[2017-08-25 14:02] LABS: TROPONIN I 0.67 ng/mL
--- NOTE | 2017-08-25 14:50 | US ---
HISTORY: RUQ pain COMPARISON: Comparison made with prior study 05/01/[address] scan of the chest abdomen pelvis dated 06/26/2017 TECHNIQUE: Sonographic evaluation of the abdomen. FINDINGS: LIVER: Measures 14.1 cm. Normal echogenicity of the liver parenchyma. No mass. No intrahepatic bile duct dilatation. GALLBLADDER: Layering intraluminal gallbladder calculi and sludge No pericholecystic fluid collections. No sonographic Rendon sign reported by technologist COMMON BILE DUCT: Measures 6.3 mm. No stones. No dilatation. PANCREAS: Unremarkable as visualized. No mass. No ductal dilatation. RIGHT KIDNEY: Measures 8.1 x 3.4 x 4.7 cm. Increased the echogenicity. No calculus, mass, or hydronephrosis. LEFT KIDNEY: Measures 8.0 x 3.7 x 3.5cm. Increased echogenicity. No calculus, mass, or hydronephrosis. Small cyst measuring approximately 1.2 cm in greatest dimension SPLEEN: Spleen is upper limits of normal measuring approximately 12 cm. No splenic mass collection AORTA: No aneurysmal dilatation. IVC: Unremarkable. OTHER FINDINGS: None. IMPRESSION: Cholelithiasis with layering gallbladder sludge
[2017-08-25 17:44] LABS: TROPONIN I 0.67 ng/mL
[2017-08-25 18:47] VITALS: BMI 21.2
[2017-08-25] MEDS ORDERED: Pneumococcal 23-Valent Vaccine IM ONE (18:47)
[2017-08-25] MEDS: Insulin Reg-LOW-Coverage SC SCH (22:30)
[2017-08-26 01:47] LABS: TROPONIN I 0.68 ng/mL
[2017-08-26 07:24] LABS: BASO # 0.01 K/mm3 (0.0-2.0); BASO % 0.1 % (0.0-3.0); EOS # 0.2 (0.0-0.7); EOS % 2.7 % (1.5-5.0); GRAN # 5.91 (1.4-6.5); GRAN % 76.3 % (50.0-68.0); HEMOGLOBIN 9.7 g/dL (12.0-16.0); LYMPH # 1.2 (1.2-3.4); LYMPH % 15.1 % (22.0-35.0); MEAN CELL VOLUME 96.8 fl (80.0-105.0); MEAN CORPUSCULAR HEMOGLOBIN 30.9 pg (25.0-35.0); MEAN CORPUSCULAR HGB CONC 31.9 g/dl (31.0-37.0); MEAN PLATELET VOLUME 9.9 fl (7.0-11.0); MONO # 0.5 (0.1-0.6); MONO % 5.8 % (1.0-6.0); RBC 3.14 10^6/uL (3.5-6.1); RED CELL DISTRIBUTION WIDTH 19.6 % (11.5-14.5); WHITE BLOOD COUNT 7.8 10^3/ul (4.5-11.0)
[2017-08-26 07:47] LABS: ALB/GLOB RATIO 0.6 (1.1-1.8); ALBUMIN 2.9 g/dL (3.0-4.8); CALCIUM 7.9 mg/dL (8.4-10.5)
[2017-08-26] MEDS: Insulin Reg-LOW-Coverage SC SCH ×4 (08:05→21:41)
--- NOTE | 2017-08-26 09:35 | CARD ---
APPROVED REPORT EKG Measurement Heart [id number] <Conclusion> Sinus rhythm with 1st degree AV block IVCD Septal infarct, age undetermined ST & T wave abnormality, consider lateral ischemia LVH No change
--- NOTE | 2017-08-26 09:41 | CARD ---
APPROVED REPORT EKG Measurement Heart [id number] <Conclusion> Sinus rhythm with 1st degree AV block IVCD Anteroseptal infarct, age undetermined ST & T wave abnormality, consider lateral ischemia LVH No change
[2017-08-26] MEDS ORDERED: POLYETHYLENE GLYCOL 3350 17 GM/Dose PACKET PO ONE (10:25)
--- NOTE | 2017-08-26 14:53 | HP ---
HISTORY OF PRESENT ILLNESS: An 82-year-old female was sent by Dialysis Unit to the [facility] prior to receiving any dialysis because she was complaining of several days of abdominal pain. The patient states that she has been having several bouts of nausea and vomiting associated with the abdominal pain. PAST MEDICAL HISTORY: Gallstone, diverticulosis, acute cholecystitis, diverticulitis, pneumonia, congestive heart failure, carotid artery disease, arteriosclerotic heart disease, myocardial infarction, hyperlipidemia, hypothyroid disease, chronic kidney disease, pur-ceeihfz-vruawlwag diabetes, peripheral neuropathy, C. difficile infection. SOCIAL HISTORY: Nonsmoker, nondrinker, nondrug user. ALLERGIES: CEFTRIAXONE. HOME MEDICATIONS: Neurontin, vitamin B6, Protonix, Lopressor, Synthroid, Imdur, TriCor, Colace, PhosLo, Lipitor, Ecotrin, ProSource, vitamin D, and insulin. REVIEW OF SYSTEMS: Ten systems are reviewed, pertinent findings as stated in the physical exam. PHYSICAL EXAMINATION: VITAL SIGNS: The patient has a temperature of 98.8, pulse is 70, blood pressure is 146/69, respiratory rate is 19, oxygen saturation on 2 liters of nasal oxygen is 96%. GENERAL: The patient is alert and oriented x3. NECK: Supple. LUNGS: Showed diminished breath sounds at the bases. HEART: In S1 and S2 rhythm with a grade 3/6 systolic murmur. ABDOMEN: Nondistended. There is a mild right upper quadrant tenderness. No rebound is appreciated. The patient states that she has not moved her bowels for 3 days. EXTREMITIES: Show no evidence of edema. LABORATORY DATA: WBC is 7.7, RBC is 3.17, hemiglobin 9.7, hematocrit 30.4, platelet count 139. PT 15.7 with INR 1.36, PTT of 29.4. Chemistry: Sodium is 141, potassium 3.6, chloride 98, BUN is 21, creatinine is 3.4. Random blood sugar is 160, calcium is 8, albumin is 3. AST is 51, ALT is 12, troponin is 0.67. Amylase is 38, lipase is 17. Chest x-ray as per the radiologist showed pulmonary venous congestion. Abdominal ultrasound as per the radiologist showed cholelithiasis with layering of the gallbladder sludge. Electrocardiogram as per Cardiology review showed sinus rhythm with first-degree block, IVCD, septal infarct, age indeterminate, ST and T-wave abnormalities, consider lateral ischemia, LVH, no change. IMPRESSION: 1. Abdominal pain. a. History of gallstone disease, history of acute cholecystitis in the past, rule out cholecystitis. 2. Constipation for several days. 3. Elevated troponin, rule out myocardial infarction. 4. Insulin-dependent diabetes. 5. Chronic kidney disease. 6. Hypothyroid disease. PLAN: 1. GI evaluation, clear liquid diet. 2. MiraLax. 3. Continue Protonix. 4. Diabetes, regular insulin sliding scale with monitoring, clear liquid diet. 5. Elevated troponin, rule out possibility of myocardial infarction. We will get: 1. Cardiology consult. 2. GI consult. 3. Renal consult. 4. All clinical findings have been reviewed with the Emergency Room staff. Consultants have been notified and discussion has been held with the family and the patient. Shavonne Ascencio MD
[2017-08-26] MEDS: POLYETHYLENE GLYCOL 3350 17 GM/Dose PACKET PO SCH (17:36)
[2017-08-27 06:11] LABS: EOS # 0.2 (0.0-0.7); EOS % 2.7 % (1.5-5.0); GRAN # 5.49 (1.4-6.5); GRAN % 75.1 % (50.0-68.0); HEMOGLOBIN 9.6 g/dL (12.0-16.0); LYMPH # 1.2 (1.2-3.4); LYMPH % 16.5 % (22.0-35.0); MEAN CELL VOLUME 96.2 fl (80.0-105.0); MEAN CORPUSCULAR HEMOGLOBIN 30.5 pg (25.0-35.0); MEAN CORPUSCULAR HGB CONC 31.7 g/dl (31.0-37.0); MEAN PLATELET VOLUME 8.8 fl (7.0-11.0); MONO # 0.4 (0.1-0.6); MONO % 5.7 % (1.0-6.0); RBC 3.15 10^6/uL (3.5-6.1); RED CELL DISTRIBUTION WIDTH 19.7 % (11.5-14.5); WHITE BLOOD COUNT 7.3 10^3/ul (4.5-11.0)
[2017-08-27 06:31] LABS: ALB/GLOB RATIO 0.7 (1.1-1.8); ALBUMIN 2.9 g/dL (3.0-4.8); CALCIUM 7.7 mg/dL (8.4-10.5)
[2017-08-27] MEDS: Insulin Reg-LOW-Coverage SC SCH ×3 (07:30→22:00)
--- NOTE | 2017-08-27 08:11 | CON ---
DATE: 08/26/2017 REASON FOR CONSULTATION: upper quadrant abdominal pain. HISTORY OF PRESENT ILLNESS: This is an 82-year-old patient with end-stage renal disease, on hemodialysis. She was complaining of right upper quadrant abdominal pain started about over the last few days and was complaining of worsening of the abdominal pain when she came for renal dialysis and patient was subsequently sent to the emergency room for further evaluation. She describes her pain is mainly in the right upper quadrant area, constant dull ache with episodes of exacerbation. No vomiting. No fever. No diarrhea. PAST MEDICAL HISTORY: Other past medical history significant for cholelithiasis, pneumonia, diabetes mellitus, hypothyroidism, recurrent episodes of diverticulitis. SOCIAL HISTORY: Denies smoking or alcohol. REVIEW OF SYSTEMS: Positive as above. Other systems reviewed, negative. ALLERGIES: SHE IS ALLERGIC TO CEFTRIAXONE. PHYSICAL EXAMINATION: GENERAL: Patient is lying on the bed, not in acute distress. VITAL SIGNS: Temperature 97.3, pulse 75, blood pressure 108/49, respirations 18. HEENT: Atraumatic, anicteric. NECK: Supple. HEART: S1 and S2 heard. LUNGS: Bilateral air entry present. ABDOMEN: Soft. There is mild tenderness on deep palpation of right upper quadrant area. EXTREMITIES: No cyanosis, no clubbing. NEUROLOGICAL: Alert, oriented, moves all the extremities. LABORATORY DATA: Hemoglobin 9.7, hematocrit 30.4, WBC 7.8, platelet 154. Chemistry showed patient does have troponin level elevated at 0.68. Total bilirubin 1.6, AST 57, ALT 15. IMPRESSION: This is an 82-year-old patient with history of recurrent diverticulitis, history of recurrent urinary tract infection, gallstones, presently admitted with intermittent episodes of right upper quadrant pain, started to worsening recently. Differential diagnoses should include biliary colic, cholelithiasis, rule out cholecystitis. Other comorbidities include diabetes mellitus, hypertension, end-stage renal disease on hemodialysis. RECOMMENDATIONS: 1. Slowly advance the diet. 2. Patient is also constipated last few days. We will start the patient on MiraLax twice daily. 3. Slowly advance the diet as tolerated. If there is further worsening of symptoms, we will consider CT of the abdomen and pelvis with p.o. contrast. The patient was seen and evaluated along with staff nurse. Thank you very much for allowing us to participate in the care of the patient. Ysabel Theodore MD
[2017-08-27] MEDS: POLYETHYLENE GLYCOL 3350 17 GM/Dose PACKET PO SCH ×2 (11:17→18:09)
[2017-08-27] MEDS: Levothyroxine 50 MCG TAB PO SCH (11:29)
--- NOTE | 2017-08-27 16:27 | CON ---
DATE: 08/27/2017 REASON FOR CONSULTATION: Shortness of breath, cough, need for dialysis. HISTORY OF PRESENTING ILLNESS: An 82-year-old lady known to me from outpatient followup. The patient was admitted on 08/26/2017, she presented to the emergency room on 08/25/2017, with complaints of cough, shortness of breath, nausea, and vomiting. The patient had received full dialysis on Sunday. The patient denied any fever or chills. The patient was admitted. She was seen by GI. Conservative management was advised. PAST MEDICAL AND SURGICAL HISTORY: Diverticulitis, diverticulosis, gallstones, acute cholecystitis, CHF, CAD, hyperlipidemia, end-stage renal disease, NIDDM, C. diff colitis. FAMILY HISTORY: Noncontributory. SOCIAL HISTORY: No smoking, alcohol use, no IV drug abuse. ALLERGIES: CEFTRIAXONE. MEDICATIONS AT HOME: Neurontin, B6, Protonix, Lopressor, Synthroid, Imdur, TriCor, Colace, PhosLo, Lipitor, Ecotrin, Prosource, vitamin D, and insulin. REVIEW OF SYSTEMS: All systems are reviewed, pertinent positives as mentioned in the history of presenting illness, rest unremarkable. PHYSICAL EXAMINATION: GENERAL: Elderly lady lying in bed. VITAL SIGNS: Blood pressure 115/76, heart rate 77, respiratory rate 18, temperature 97.1. HEENT: Normocephalic, atraumatic, positive pallor. NECK: Supple, no JVD. LUNGS: Bilateral equal air entry, bilateral rhonchi, no rales. CARDIAC: S1 and S2, regular rate and rhythm, no murmur, no rub. ABDOMEN: Soft, nondistended, nontender, bowel sounds present. EXTREMITIES: No lower extremity edema. INTAKE AND OUTPUT: Not charted. LABORATORY DATA: WBC 7.3, hemoglobin 9.6, hematocrit 30, and platelets 113. Sodium 139, potassium 4.5, chloride 97, CO2 of 28. BUN 37, creatinine 5.7. Glucose 135. Calcium 7.7. Total bili 1.3. Albumin 2.9, corrected calcium is 8.4. CURRENT MEDICATIONS: Insulin, Imdur, Lopressor 25 b.i.d., MiraLax, Protonix, Synthroid. ASSESSMENT: 1. Abdominal pain, nausea, vomiting? diverticulitis. 2. Elevated troponin's, likely secondary to renal failure, no evidence of acute coronary syndrome. 3. End-stage renal disease. 4. Nonkinsulin-dependent diabetes mellitus. 5. Hypertension. 6. Coronary artery disease. 7. Hypocalcemia. PLAN: 1. Dialysis today. 2. Continue current medications. 3. Continue phosphate binders. 4. Monitor fingersticks. Barbi Linares MD
--- NOTE | 2017-08-27 20:13 | PN ---
DATE: 08/27/2017 SUBJECTIVE: The patient is resting in bed quietly this morning. Nursing staff states that there were no particular problems during the night. PHYSICAL EXAMINATION: VITAL SIGNS: Her temp is 98, her pulse is 71, her blood pressure is 132/68, respiratory rate is 19, oxygen saturation is 96% on nasal cannula 2 L. The patient states that she has a little bit less abdominal pain this morning. LUNGS: Show clear with diminished breath sounds at the bases. HEART: S1, S2 rhythm. ABDOMEN: Soft. Positive bowel sounds. EXTREMITIES: No evidence of edema. LABORATORY DATA: Shows a sodium of 139, potassium 4.5, chloride 97, BUN is 37, creatinine is 5.7, random blood sugar is 122, calcium is 7.7, albumin is 2.9, AST is 52. The patient has a CBC, WBC is 7.3, RBC is 3.15, hemoglobin is 9.6, hematocrit is 30.3, platelet count is 113. ASSESSMENT AND PLAN: The patient is currently being followed by GI and has been placed on a laxative. She reports on admission several days of no bowel movements as documented now in the chart and the patient has had a bowel movement. She is awaiting evaluation by Renal and Cardiology and she is scheduled for a dialysis today. We will continue current medical management at this time. Await input from the individual consultants. Shavonne Ascencio MD
--- NOTE | 2017-08-28 06:52 | CP.PCM.PN ---
Subjective - Date & Time of Evaluation Date of Evaluation: 08/28/17 Time of Evaluation: 06:46 - Subjective Subjective: Patient was seen for her complaint of nausea. She had refuse Zofran earlier,now requests medication for nausea. Seen at bedside. Complains of nausea and RUQ abdominal pain. Has no other complaints. After giving Zofran 4 mg IV and protonix 40 mg IV she felt better. Medical record was reviewed. This 82 year old woman was admitted from dialysis unit for complaint of several days of abdominal pain, nausea and vomiting. Has PMH of diverticulosis, gall stones, acute cholecystitis, diverticulitis, PNA , CAD,CHF,ASHD, HLD, NM , hypothyroidism , cKD, NIDDM, C.Diff infection, peripheral neuropathy. Objective - Vital Signs/Intake and Output Vital Signs (last 24 hours): Temp Pulse Resp BP Pulse Ox 97.6 F 72 19 134/49 L 100 08/28/17 05:54 08/28/17 05:54 08/28/17 05:54 08/28/17 05:54 08/28/17 05:54 Intake and Output: 08/27/17 08/28/17 18:59 06:59 Intake Total 120 Balance 120 - Medications Medications: Current Medications Insulin Human Regular (Humulin R Low) 0 units SC ACHS COUNTS INCLUDE 234 BEDS AT THE [facility] PRN Reason: Protocol Last Admin: 08/27/17 22:00 Dose: Not Given Isosorbide Mononitrate (Imdur Er) 30 mg PO DAILY COUNTS INCLUDE 234 BEDS AT THE [facility] Last Admin: 08/27/17 11:28 Dose: Not Given Levothyroxine Sodium (Synthroid) 50 mcg PO ACB COUNTS INCLUDE 234 BEDS AT THE [facility] Last Admin: 08/27/17 11:29 Dose: Not Given Metoprolol Tartrate (Lopressor) 25 mg PO 0800,1800 COUNTS INCLUDE 234 BEDS AT THE [facility] Last Admin: 08/27/17 18:09 Dose: Not Given Pantoprazole Sodium (Protonix Ec Tab) 40 mg PO ACB COUNTS INCLUDE 234 BEDS AT THE [facility] Polyethylene Glycol (Miralax) 17 gm PO BID COUNTS INCLUDE 234 BEDS AT THE [facility] Last Admin: 08/27/17 18:09 Dose: Not Given - Labs Labs: 08/27/17 05:30 08/27/17 05:30 PT 15.7 SECONDS (9.4-12.5) H 08/25/17 13:17 INR 1.36 (0.93-1.08) H 08/25/17 13:17 APTT 29.4 Seconds (25.1-36.5) 08/25/17 13:17 Most Recent Lab Values WBC 7.3 10^3/ul (4.5-11.0) 08/27/17 05:30 RBC 3.15 10^6/uL (3.5-6.1) L 08/27/17 05:30 Hgb 9.6 g/dL (12.0-16.0) L 08/27/17 05:30 Hct 30.3 % (36.0-48.0) L 08/27/17 05:30 MCV 96.2 fl (80.0-105.0) 08/27/17 05:30 MCH 30.5 pg (25.0-35.0) 08/27/17 05:30 MCHC 31.7 g/dl (31.0-37.0) 08/27/17 05:30 RDW 19.7 % (11.5-14.5) H 08/27/17 05:30 Plt Count 113 10^3/uL (120.0-450.0) L 08/27/17 05:30 MPV 8.8 fl (7.0-11.0) 08/27/17 05:30 Gran % 75.1 % (50.0-68.0) H 08/27/17 05:30 Lymph % (Auto) 16.5 % (22.0-35.0) L 08/27/17 05:30 [place] % (Auto) 5.7 % (1.0-6.0) 08/27/17 05:30 Eos % (Auto) 2.7 % (1.5-5.0) 08/27/17 05:30 Baso % (Auto) 0.0 % (0.0-3.0) 08/27/17 05:30 Gran # 5.49 (1.4-6.5) 08/27/17 05:30 Lymph # (Auto) 1.2 (1.2-3.4) 08/27/17 05:30 [place] # (Auto) 0.4 (0.1-0.6) 08/27/17 05:30 Eos # (Auto) 0.2 (0.0-0.7) 08/27/17 05:30 Baso # (Auto) 0.00 K/mm3 (0.0-2.0) 08/27/17 05:30 PT 15.7 SECONDS (9.4-12.5) H 08/25/17 13:17 INR 1.36 (0.93-1.08) H 08/25/17 13:17 APTT 29.4 Seconds (25.1-36.5) 08/25/17 13:17 Sodium 139 mmol/L (132-148) 08/27/17 05:30 Potassium 4.5 mmol/L (3.6-5.0) 08/27/17 05:30 Chloride 97 mmol/L (98-107) L 08/27/17 05:30 Carbon Dioxide 28 mmol/L (21-33) 08/27/17 05:30 Anion Gap 19 (10-20) 08/27/17 05:30 BUN 37 mg/dL (7-21) H 08/27/17 05:30 Creatinine 5.7 mg/dl (0.7-1.2) H 08/27/17 05:30 Est GFR ( Amer) 9 08/27/17 05:30 Est GFR (Non-Af Amer) 7 08/27/17 05:30 POC Glucose (mg/dL) 158 mg/dL (65-110) H 08/27/17 21:34 Random Glucose 135 mg/dL (70-110) H 08/27/17 05:30 Calcium 7.7 mg/dL (8.4-10.5) L 08/27/17 05:30 Total Bilirubin 1.3 mg/dL (0.2-1.3) 08/27/17 05:30 AST 52 U/L (14-36) H 08/27/17 05:30 ALT 14 U/L (7-56) 08/27/17 05:30 Alkaline Phosphatase 60 U/L (38-126) 08/27/17 05:30 Lactate Dehydrogenase 336 U/L (333-699) 08/26/17 00:45 Total Creatine Kinase < 20 U/L (35-230) L 08/26/17 00:45 Troponin I 0.68 ng/mL H* 08/26/17 00:45 Total Protein 7.3 g/dL (5.8-8.3) 08/27/17 05:30 Albumin 2.9 g/dL (3.0-4.8) L 08/27/17 05:30 Globulin 4.4 gm/dL 08/27/17 05:30 Albumin/Globulin Ratio 0.7 (1.1-1.8) L 08/27/17 05:30 Amylase 38 U/L (35-125) 08/25/17 13:17 Lipase 17 U/L (23-300) L 08/25/17 13:17 - Constitutional Appears: Well, No Acute Distress - Head Exam Head Exam: ATRAUMATIC, NORMAL INSPECTION, NORMOCEPHALIC - Eye Exam Eye Exam: Normal appearance - ENT Exam ENT Exam: Normal External Ear Exam - Neck Exam Neck Exam: Normal Inspection - Respiratory Exam Respiratory Exam: NORMAL BREATHING PATTERN - Cardiovascular Exam Cardiovascular Exam: absent: JVD - GI/Abdominal Exam GI & Abdominal Exam: absent: Distended - Rectal Exam Rectal Exam: Deferred - Exam Additional comments: Deferred. - Extremities Exam Extremities Exam: Normal Inspection - Back Exam Back Exam: NORMAL INSPECTION - Neurological Exam Neurological Exam: Alert, Oriented x3 - Psychiatric Exam Psychiatric exam: Normal Affect, Normal Mood - Skin Skin Exam: Normal Color Assessment and Plan - Assessment and Plan (Free Text) Assessment: Nausea. RUQ abdominal pain. CAD. CHF. NIDDM. CKD. Plan: Zofran 4 mg IV x 1. Protonix 4 mg IV x 1. EKG----> NSR, no acute changes noted . Continue present management as per PMD.
[2017-08-28 07:33] LABS: CALCIUM 7.7 mg/dL (8.4-10.5)
[2017-08-28] MEDS: Insulin Reg-LOW-Coverage SC SCH ×4 (07:59→22:48)
[2017-08-28] MEDS: Pantoprazole 40 mg EC Tab PO SCH (09:34)
[2017-08-28] MEDS: Levothyroxine 50 MCG TAB PO SCH (09:34)
[2017-08-28] MEDS: POLYETHYLENE GLYCOL 3350 17 GM/Dose PACKET PO SCH ×2 (09:34→18:30)
--- NOTE | 2017-08-28 11:05 | CP.PCM.PN ---
Subjective - Date & Time of Evaluation Date of Evaluation: 08/28/17 Time of Evaluation: 09:40 - Subjective Subjective: S&E at bedside, chart reviewed, no acute overnight events. Abdominal pain last night given pain medication, this am pain better but still present. Tolerating clear liquid, no N/V fever or chills. No SOB or chest pain. Objective - Vital Signs/Intake and Output Vital Signs (last 24 hours): Temp Pulse Resp BP Pulse Ox 97.6 F 94 H 19 140/67 100 08/28/17 05:54 08/28/17 09:34 08/28/17 05:54 08/28/17 09:34 08/28/17 05:54 Intake and Output: 08/28/17 08/28/17 06:59 18:59 Intake Total 120 Balance 120 - Medications Medications: Current Medications Aspirin (Aspirin Chewable) 81 mg PO DAILY [facility] Last Admin: 08/28/17 09:33 Dose: 81 mg Insulin Human Regular (Humulin R Low) 0 units SC ACHS [facility] PRN Reason: Protocol Last Admin: 08/28/17 07:59 Dose: Not Given Isosorbide Mononitrate (Imdur Er) 30 mg PO DAILY [facility] Last Admin: 08/28/17 09:35 Dose: Not Given Levothyroxine Sodium (Synthroid) 50 mcg PO ACB [facility] Last Admin: 08/28/17 09:34 Dose: 50 mcg Metoprolol Tartrate (Lopressor) 25 mg PO 0800,1800 [facility] Last Admin: 08/28/17 09:34 Dose: Not Given Pantoprazole Sodium (Protonix Ec Tab) 40 mg PO ACB [facility] Last Admin: 08/28/17 09:34 Dose: 40 mg Polyethylene Glycol (Miralax) 17 gm PO BID [facility] Last Admin: 08/28/17 09:34 Dose: 17 gm - Labs Labs: 08/27/17 05:30 08/28/17 06:30 PT 15.7 SECONDS (9.4-12.5) H 08/25/17 13:17 INR 1.36 (0.93-1.08) H 08/25/17 13:17 APTT 29.4 Seconds (25.1-36.5) 08/25/17 13:17 - Constitutional Appears: No Acute Distress - Head Exam Head Exam: NORMOCEPHALIC - Eye Exam Eye Exam: Normal appearance. absent: Scleral icterus - ENT Exam ENT Exam: Mucous Membranes Moist - Neck Exam Neck Exam: Normal Inspection - Respiratory Exam Respiratory Exam: Decreased Breath Sounds, NORMAL BREATHING PATTERN. absent: Wheezes, Respiratory Distress - Cardiovascular Exam Cardiovascular Exam: +S1, +S2 - GI/Abdominal Exam GI & Abdominal Exam: Soft, Tenderness Additional comments: epigastric/RUQ, no rebound or guarding - Extremities Exam Extremities Exam: absent: Calf Tenderness, Pedal Edema - Neurological Exam Neurological Exam: Alert, Awake, Oriented x3 Assessment and Plan - Assessment and Plan (Free Text) Assessment: ASSESSMENT: RUQ abdominal pain, differential Biliary colic Cholelithiasis w/ sludge, CBD 6.3 mm on abdominal US ESRD on hemodialysis DM H/O of recurrent diverticulitis H/O constipation PLAN clear liquid, advance as tolerated continue PPI on Miralax FU stool C diff pain slightly better, if continue or increase consider ct scan A&P with oral contrast Seen and discussed w/ Dr. Theodore.
--- NOTE | 2017-08-28 15:02 | CARD ---
APPROVED REPORT EKG Measurement Heart [id number] <Conclusion> Sinus rhythm with sinus arrhythmia with 1st degree AV block Septal infarct, age undetermined ST & T wave abnormality, consider lateral ischemia Abnormal ECG
--- NOTE | 2017-08-28 16:29 | CON ---
DATE: 08/28/2017 HISTORY OF PRESENT ILLNESS: This is an 82-year-old woman known to me from prior admissions, admitted to the hospital on the with abdominal pain due to constipation for several days prior to admission. She has nausea. She is a dialysis patient. She missed a dialysis session because of the abdominal symptoms. Her x-ray shows vascular congestion, which is increased. There is no chest pain. Troponins are elevated in a pattern suggesting a non-cardiac cause, but Cardiology consultation was requested. There is no chest pain. There is no shortness of breath at rest. There is no orthopnea, PND, or syncope. There is no palpitations or edema. There is no fever, chills, sputum production, hemoptysis. PAST MEDICAL HISTORY: Her past medical history is complex. She has chronic kidney disease on hemodialysis 3 times a week. She has known coronary artery disease with remote myocardial infarctions, congestive heart failure and pulmonary edema. During several admissions, she has had elevated troponins of uncertain significance. There is a history of hypertension, diabetes, moderate mitral regurgitation, diverticulosis, diverticulitis, C. diff colitis, GI bleeding, cerebral vascular disease with a carotid stent, peripheral neuropathy, colonic polyps, hypothyroidism, cholecystitis, gallstones, pneumonia, hip fracture, left ankle fracture. MEDICATIONS AT THE TIME OF ADMISSION: Include aspirin, Colace, insulin, Imdur, Lipitor, metoprolol, multivitamin, Neurontin, PhosLo, ProSource, Protonix, Synthroid, vitamin B6 and TriCor. ALLERGIES: SHE NOTES AN ALLERGY TO CEFTRIAXONE. SOCIAL HISTORY: She lives at home. She does not smoke or drink alcohol. FAMILY HISTORY: Noncontributory. REVIEW OF SYSTEMS: A 10-point review of systems is otherwise unremarkable except as noted above. PHYSICAL EXAMINATION: GENERAL: She is a well-developed elderly woman on telemetry, in no acute distress. VITAL SIGNS: Sinus rhythm at 72 beats per minute. Afebrile. Blood pressure 134/49, respirations 19, O2 sat 100% on nasal cannula. HEENT: Reveals no neck vein distention, thyromegaly or carotid bruits. Mucous membranes are moist. Conjunctivae are pink. NECK: Supple. LUNGS: Lung riggs scattered rhonchi. HEART: Reveals normal first and second heart sounds. ABDOMEN: Soft. Normal bowel sounds. No mass, organomegaly, tenderness, rebound, or guarding. EXTREMITIES: No cyanosis, clubbing or edema. NEUROLOGIC: Awake, alert, and oriented. PSYCHIATRIC: Normal as to mood and affect. SKIN: Warm and dry. No rash or cellulitis. LABORATORY DATA AND IMAGING: A portable chest x-ray shows interval progression of pulmonary venous congestion. An abdominal ultrasound shows cholelithiasis with layering gallbladder sludge. EKG demonstrates sinus rhythm, anteroseptal myocardial infarction, LVH, intraventricular conduction delay, ST-T wave changes consistent with ischemia. No significant change from a prior EKG. White count is normal, hemoglobin 9.6, hematocrit 30.3, platelet counts are low at 113,000. PT 15.7, INR 1.36, PTT 29.4. Initial electrolytes unremarkable. BUN 21, creatinine 3.4. LFTs mildly elevated. CK is negative x3. Troponins 0.67, 0.67 and 0.68. Amylase 38, lipase 17. IMPRESSION: Margo Uriarte is an 82-year-old woman admitted with constipation, right upper quadrant pain which seems to have improved. She still has nausea. She has multiple gastrointestinal issues, being sorted out. Her troponin was mildly elevated in a pattern consistent with renal failure and hemodialysis rather than acute myocardial infarction. She is being evaluated by Dr. Linares and by Dr. Theodore. Hemodialysis is being arranged. After hemodialysis, a followup chest x-ray might be useful to gauge her volume status and to demonstrate improvement in the congested picture. I will continue aspirin, metoprolol, isosorbide. She is on telemetry. I will follow along with you. I will make additional recommendations based on her clinical course. Overall, a conservative course of cardiac care is anticipated. Rahul Velez MD [facility]
--- NOTE | 2017-08-28 17:18 | PN ---
DATE: 08/28/2017 SUBJECTIVE: Mrs. Uriarte is currently lying in bed this morning. Nursing staff relates that there were no specific events during the night, although she did complain of some abdominal discomfort, which was treated with some Zofran and reportedly improved. She is status post dialysis yesterday. PHYSICAL EXAMINATION: VITAL SIGNS: Her temperature is 97.7, her pulse is 72, blood pressure is 117/55, oxygen sat is 94% on nasal cannula 2 L. LUNGS: Show diminished breath sounds at the bases. HEART: S1, S2 rhythm. ABDOMEN: Soft with positive bowel sounds. EXTREMITIES: Show no evidence of edema. LABORATORY DATA: Chemistries: Sodium is 140, potassium is 3.6, chloride is 97, the BUN is 20, and the creatinine is 3.9. Random blood sugar is 119. The patient has a C. diff specimen which is reported as negative. MEDICATIONS: Currently, she is on Ecotrin, Imdur, metoprolol, MiraLax, Protonix, and Synthroid. IMPRESSION AND PLAN: 1. She has chronic renal disease, on dialysis four times a week, being followed by Nephrology. 2. Her abdominal pain is slightly better; however, we will discuss with GI, indication for doing further evaluation if the patient's symptoms persist. She does have gallstones with sludge. 3. She is hypothyroid, on Synthroid replacement. 4. She is a diabetic, on insulin with coverage. 5. Her troponins are now trending down, felt to be secondary to her renal disease. Continue current level of care and follow the patient closely. She is scheduled for dialysis tomorrow. Shavonne Ascencio MD
[2017-08-28] MEDS ORDERED: Darbepoetin Alfa 100 mcg/ml Inj IVP ONE (17:45)
--- NOTE | 2017-08-28 19:45 | PN ---
DATE: 08/28/2017 SUBJECTIVE: The patient is currently seen lying comfortable in bed on telemetry. She appears to be in no acute distress. I cannot locate the flow sheet for her dialysis at [facility], but I am told that 1.5 liters of fluid were removed during dialysis. She appears to be less short of breath and she presently is not complaining of any abdominal pain. No nausea, vomiting or diarrhea. MEDICATIONS: Medication list reviewed. The patient is on aspirin, insulin, Imdur, Lopressor, MiraLax, Protonix, Synthroid. PHYSICAL EXAMINATION: INTAKE/OUTPUT: Intake 720, output 1500 with dialysis. VITAL SIGNS: Blood pressure 117/55, pulse of 72, temperature of 97.7, respiratory rate of 16. HEENT: Shows her to be normocephalic, atraumatic. Conjunctivae are pale. Sclerae are nonicteric. NECK: Supple. No neck vein distention. CHEST: Clear to auscultation and percussion. No rales, no rhonchi, no wheezing. CARDIOVASCULAR: Shows a regular rate and rhythm with MR/TR. No S3. No S4. No rub. ABDOMEN: Soft. Bowel sounds normal. No tenderness on palpation. No rebound or guarding. EXTREMITIES: Show a working left upper extremity AV fistula. No lower extremity cyanosis, clubbing or edema. LABORATORY DATA AND IMAGING STUDIES: CBC from yesterday; white blood cell count 7.4, hemoglobin stable at 9.6, platelet count is 113,000. Chemistry showed normal electrolytes. BUN 22 with a creatinine of 3.9. Glucose 126. Calcium 7.7 with an albumin of 2.9, calcium corrects to 8.6. Phosphorus level is pending. Microbiology: Stool for C. Diff is negative. Abdominal ultrasound done on admission shows gallstones with gallbladder sludge. Common bile duct is not dilated. ASSESSMENT: 1. Status post episode of abdominal pain, nausea and vomiting. This appears to have resolved. The patient appears to be back to baseline. 2. Mild elevation of troponins with normal CPK-MB. This is likely secondary to chronic kidney disease rather than acute coronary syndrome. 3. History of end-stage renal disease. The patient will continue hemodialysis. She dialyzes four times a week. 4. History of hypothyroidism. The patient will continue thyroid replacement therapy. 5. History of non-insulin dependent diabetes mellitus. The patient will continue sliding scale insulin. 6. History of secondary hyperparathyroidism. Check phosphorus levels with dialysis tomorrow. P.r.n. binder therapy. 7. Anemia secondary to chronic kidney disease. Continue Aranesp per protocol on dialysis. PLAN: 1. Hemodialysis. The patient will continue four times a week dialysis. She is scheduled for dialysis tomorrow. The patient more likely should be transferred to [facility] for dialysis as there is no available staff to do the dialysis at [facility]. 2. Check phosphorus level with dialysis. 3. Continue Aranesp dose. 4. Continue to monitor sugars. 5. Continue to monitor the patient on telemetry. Buck Yanes MD
[2017-08-29] MEDS: Insulin Reg-LOW-Coverage SC SCH ×3 (07:59→22:37)
[2017-08-29] MEDS: Levothyroxine 50 MCG TAB PO SCH (08:05)
[2017-08-29] MEDS: Pantoprazole 40 mg EC Tab PO SCH (08:05)
[2017-08-29] MEDS ORDERED: Darbepoetin Alfa 60 mcg/ml Inj IV ONE (10:00)
[2017-08-29] MEDS ORDERED: Darbepoetin Alfa 100 mcg/ml Inj IVP ONE (10:00)
--- NOTE | 2017-08-29 10:12 | PN ---
DATE: 08/29/2017 SUBJECTIVE: The patient is seen lying in bed on 3R. She continues to complain of abdominal discomfort. She denies any chest pain. CURRENT MEDICATIONS: Include Aranesp, aspirin, Imdur 30 mg daily, metoprolol 25 mg b.i.d., MiraLax, Protonix and Synthroid. OBJECTIVE: GENERAL: She is an elderly woman, who appears mildly uncomfortable due to her abdominal discomfort. VITAL SIGNS: Her blood pressure 132/70 with pulse of 70, respirations are 14. She is afebrile. HEENT: No JVD. CHEST: A few scattered rhonchi heard. HEART: PMI displaced laterally with systolic murmur at the base and left sternal border. ABDOMEN: Soft with mild diffuse tenderness. Bowel sounds are present. EXTREMITIES: No edema. DIAGNOSTIC DATA: Morning blood work is pending. IMPRESSION: 1. Abdominal discomfort. Does not appear to be related to any cardiac cause. Mildly elevated troponins in the setting of chronic renal failure, likely of no clinical significance. 2. Known coronary artery disease, status post prior myocardial infarction with left ventricular dysfunction. 3. Mitral regurgitation. 4. Hypertension and diabetes. RECOMMENDATIONS: Her current cardiac management should continue. No further cardiac testing appears necessary at the present time. GI evaluation remains ongoing. We will continue to follow and make further recommendations as needed. Linus So MD
[2017-08-29] MEDS: POLYETHYLENE GLYCOL 3350 17 GM/Dose PACKET PO SCH (10:56)
[2017-08-29] MEDS ORDERED: Barium Sulfate Susp 2.1% w/v, 2.0% w/w 450 mL Bottle PO ONE (10:57)
--- NOTE | 2017-08-29 12:53 | CP.PCM.PN ---
Subjective - Date & Time of Evaluation Date of Evaluation: 08/29/17 Time of Evaluation: 10:45 - Subjective Subjective: Seen and examined at the bedside earlier today, chart reviewed. Patient reporting abdominal pain mainly in the evening, same as yesterday night. Abdominal pain at this time slightly better, tolerating clear liquid diet. No acute overnight events reported. Patient had B and reported as being "mushy", no bleeding reported. Denies fever chills, shortness of breath or chest pain. Objective - Vital Signs/Intake and Output Vital Signs (last 24 hours): Temp Pulse Resp BP Pulse Ox 97.4 F L 70 20 133/67 99 08/29/17 08:28 08/29/17 08:28 08/29/17 08:28 08/29/17 08:28 08/29/17 08:28 Intake and Output: 08/29/17 08/29/17 06:59 18:59 Intake Total 540 120 Output Total 1 Balance 539 120 - Medications Medications: Current Medications Aspirin (Aspirin Chewable) 81 mg PO DAILY [facility] Last Admin: 08/28/17 09:33 Dose: 81 mg Insulin Human Regular (Humulin R Low) 0 units SC ACHS [facility] PRN Reason: Protocol Last Admin: 08/28/17 22:48 Dose: Not Given Isosorbide Mononitrate (Imdur Er) 30 mg PO DAILY [facility] Last Admin: 08/28/17 09:35 Dose: Not Given Levothyroxine Sodium (Synthroid) 50 mcg PO ACB [facility] Last Admin: 08/29/17 08:05 Dose: 50 mcg Metoprolol Tartrate (Lopressor) 25 mg PO 0800,1800 [facility] Last Admin: 08/29/17 08:05 Dose: Not Given Pantoprazole Sodium (Protonix Ec Tab) 40 mg PO ACB [facility] Last Admin: 08/29/17 08:05 Dose: 40 mg Polyethylene Glycol (Miralax) 17 gm PO BID [facility] Last Admin: 08/28/17 18:30 Dose: 17 gm - Labs Labs: 08/27/17 05:30 08/28/17 06:30 PT 15.7 SECONDS (9.4-12.5) H 08/25/17 13:17 INR 1.36 (0.93-1.08) H 08/25/17 13:17 APTT 29.4 Seconds (25.1-36.5) 08/25/17 13:17 - Constitutional Appears: No Acute Distress - Head Exam Head Exam: NORMOCEPHALIC - Eye Exam Eye Exam: Normal appearance. absent: Scleral icterus - ENT Exam ENT Exam: Mucous Membranes Moist - Neck Exam Neck Exam: Normal Inspection - Respiratory Exam Respiratory Exam: NORMAL BREATHING PATTERN. absent: Respiratory Distress - Cardiovascular Exam Cardiovascular Exam: +S1, +S2 - GI/Abdominal Exam GI & Abdominal Exam: Soft, Tenderness (mid abdomen-right upper quadrant), Normal Bowel Sounds. absent: Guarding, Organomegaly, Rebound - Extremities Exam Extremities Exam: absent: Calf Tenderness, Pedal Edema - Neurological Exam Neurological Exam: Alert, Awake, Oriented x3 - Skin Skin Exam: Dry, Warm Assessment and Plan - Assessment and Plan (Free Text) Assessment: ASSESSMENT: RUQ abdominal pain, differential Biliary colic Cholelithiasis w/ sludge, CBD 6.3 mm on abdominal US ESRD on hemodialysis DM H/O of recurrent diverticulitis H/O constipation PLAN clear liquid, advance as tolerated if abdominal paiin improved and ct scan negative. continue PPI on Aspirin on Miralax BID, hold for stool >2/day FU stool C diff negative will request for ct scan A&P with oral contrast Case discussed with Dr. Ascencio Seen and discussed w/ Dr. Theodore.
--- NOTE | 2017-08-29 16:32 | PN ---
DATE: 08/29/2017 SUBJECTIVE: Ms. Uriarte is lying in bed this morning. Nursing staff reports no particular problems during the night; however, this morning the patient says that she is still having some intermittent abdominal discomfort. She does state that she has moved her bowels. PHYSICAL EXAMINATION: VITAL SIGNS: Her temperature is 97.4, pulse is 70, blood pressure is 133/67, respiratory rate is 20. GENERAL: She is alert and oriented x3. LUNGS: Showed diminished breath sounds at the bases. HEART: Is in S1 and S2 rhythm. ABDOMEN: Soft. There is some mild right upper quadrant and right lower quadrant tenderness. No rebound. EXTREMITIES: Show no evidence of edema. ASSESSMENT AND PLAN: The patient is scheduled for dialysis today. After discussion with Gastroenterology given the persistent abdominal discomfort, a CT of the abdomen and pelvis with oral contrast will be requested. She is being followed by Nephrology with history of chronic renal disease, on dialysis. Cardiology is also seeing the patient. She has a history of arteriosclerotic heart disease. They are recommending conservative medical management at this time. Shavonne Ascencio MD
--- NOTE | 2017-08-29 22:48 | CT ---
EXAM: CT Abdomen and Pelvis Without Intravenous Contrast EXAM DATE/TIME: 08/29/2017 10:54 AM CLINICAL HISTORY: The patient age is 82 years old and is female; Signs and symptoms; Nausea and vomiting; Additional info: Abominal pain Facility exam id and description: Ct abdpels abd pelvis po contrast only TECHNIQUE: Axial computed tomography images of the abdomen and pelvis without intravenous contrast. All CT scans at this facility use one or more dose reduction techniques, viz.: automated exposure control; ma/kV adjustment per patient size (including targeted exams where dose is matched to indication; i.e. head); or iterative reconstruction technique. Coronal and sagittal reformatted images were created and reviewed. COMPARISON: CT - ABD PELVIS W/O PO OR IV CONT 2017-06-24 14:59 FINDINGS: Lung bases: A small calcified nodules again visualized at the right lung base. Large right and mild to moderate left pleural effusions are identified, which has significantly progressed compared to the prior study. There are small adjacent consolidations, suggestive of atelectasis, although infiltrates are within the differential. Increased interstitial markings are visualized within the lungs bilaterally. Heart: There is coronary calcification. ABDOMEN: Liver: Calcifications are identified within the liver, suggestive of granulomatous disease. The liver measures 18.8 cm in the craniocaudad dimension, consistent with hepatomegaly versus a Anastasiya's lobe. Gallbladder and bile ducts: The gallbladder is distended, with a few calcified gallstones. This is similar to the prior study. Pancreas: There is atrophy of the pancreas. Spleen: No splenomegaly. Adrenals: No mass. Kidneys and ureters: There is atrophy of the bilateral kidneys, with atherosclerotic calcification of the renal arteries. There is no hydronephrosis bilaterally. Stomach and bowel: Diverticula are identified of the distal descending colon and sigmoid colon. Mild pericolonic stranding is identified adjacent to the distal descending colon, stable compared to the prior study. There is mild wall thickening of the sigmoid colon, suggestive of incomplete distention or colitis. There is gaseous and fecal distention of the rectum. PELVIS: Appendix: Not visualized. Bladder: No stones. Reproductive: Unremarkable as visualized. ABDOMEN and PELVIS: Intraperitoneal space: No free air. Bones/joints: Posterior disc herniations are visualized at L3-4 and L4-5, with severe narrowing of the thecal sac. Postoperative changes are identified, with a left hip prosthesis. Hypertrophic degenerative changes are noted within the spine. Sclerotic changes identified involving the right femoral head, likely secondary to arthropathy or osteonecrosis. This is stable. There is grade I anterolisthesis of L4 on L5. Old fractures are identified of the left 10th through 12th ribs. Vasculature: Marked atherosclerosis identified of the abdominal aorta and iliac arteries. There is hemodynamically significant stenosis of the infrarenal abdominal aorta, which is stable. No abdominal aortic aneurysm. Lymph nodes: No enlarged lymph nodes. IMPRESSION: 1. The gallbladder is distended, with a few calcified gallstones. This is similar to the prior study. 2. Marked atherosclerosis identified of the abdominal aorta and iliac arteries. There is hemodynamically significant stenosis of the infrarenal abdominal aorta, which is stable. 3. Diverticula are identified of the distal descending colon and sigmoid colon. Mild pericolonic stranding is identified adjacent to the distal descending colon, stable compared to the prior study. There is mild wall thickening of the sigmoid colon, suggestive of incomplete distention or colitis. 4. There is gaseous and fecal distention of the rectum. 5. Posterior disc herniations are visualized at L3-4 and L4-5, with severe narrowing of the thecal sac. 6. Large right and mild to moderate left pleural effusions are identified, which has significantly progressed compared to the prior study. There are small adjacent consolidations, suggestive of atelectasis, although infiltrates are within the differential. Increased interstitial markings are visualized within the lungs bilaterally. 7. Additional CT findings described above.
[2017-08-30] MEDS: Insulin Reg-LOW-Coverage SC SCH ×4 (07:30→23:24)
[2017-08-30] MEDS: POLYETHYLENE GLYCOL 3350 17 GM/Dose PACKET PO SCH ×3 (09:09→17:13)
[2017-08-30] MEDS: Pantoprazole 40 mg EC Tab PO SCH (09:11)
[2017-08-30] MEDS: Levothyroxine 50 MCG TAB PO SCH (09:11)
--- NOTE | 2017-08-30 11:23 | PN ---
DATE: 08/30/2017 SUBJECTIVE: The patient has no complaints of any chest pain. No shortness of breath. No headaches. She says she continues to have abdominal pain. PHYSICAL EXAMINATION: VITAL SIGNS: Temperature is 98.3, pulse is 77, blood pressure is 144/94, respirations 20. GENERAL: The patient is lying in bed, flat, comfortable. HEENT: No oral lesion. Anicteric sclerae. Moist mucosa. NECK: No JVD, adenopathy, or thyromegaly. CARDIOVASCULAR: S1 and S2, regular. No murmurs, rubs, or gallops. LUNGS: Clear to auscultation bilaterally. No wheeze, rales, or rhonchi. ABDOMEN: Bowel sounds are positive, soft, nontender and nondistended. EXTREMITIES: No cyanosis, clubbing or edema. LABORATORY DATA: White count of 7.3, hemoglobin 9.6, creatinine is 3.9. CT of the abdomen and pelvis has been reviewed. ASSESSMENT: 1. Abdominal pain. 2. Pleural effusion, right greater than left. 3. L3-L4 and L4-L5 disk herniation. 4. End-stage renal disease, on hemodialysis 4 times per week. 5. Hypothyroidism. 6. Diabetes type 2. 7. Secondary hyperparathyroidism. 8. Anemia, chronic secondary to end-stage renal disease. PLAN: The patient had a CT scan. I did review this. The patient is being followed by GI. She continues to have abdominal pain. We will await further input from GI. The patient is also receiving Aranesp for her anemia. She is on isosorbide. She is going to continue with metoprolol. She is on MiraLax for her constipation. She is on Synthroid for hypothyroidism. She is on a liquid diet. She continues with dialysis. I did review the notes from Nephrology and from GI. I appreciate their input. Gallo Grant MD
[2017-08-30] MEDS ORDERED: Bisacodyl 5mg EC Tab PO ONE (14:00)
--- NOTE | 2017-08-30 15:53 | CP.PCM.PN ---
Subjective - Date & Time of Evaluation Date of Evaluation: 08/30/17 Time of Evaluation: 10:45 - Subjective Subjective: Seen and examined at the bedside earlier today, chart review. Patient had CT scan of abdomen and pelvis yesterday, report reviewed. Shows calcified gallstones, , gallbladder appears distended this finding is similar to prior study, diverticula are identified in distal descending colon and sigmoid with mild pericolonic stranding, stable compared to prior study. There is mild wall thickening in the sigmoid colon suggestive of incomplete distention or colitis. Also found to have gaseous and fecal distention of the rectum. Patient reports bowel movement. No reports of bleeding, nausea, vomiting fever or chills. Objective - Vital Signs/Intake and Output Vital Signs (last 24 hours): Temp Pulse Resp BP Pulse Ox 98.3 F 77 20 144/94 H 100 08/30/17 07:54 08/30/17 07:54 08/30/17 07:54 08/30/17 07:54 08/30/17 07:54 Intake and Output: 08/30/17 08/30/17 06:59 18:59 Intake Total 480 720 Output Total 0 Balance 480 720 - Medications Medications: Current Medications Aspirin (Aspirin Chewable) 81 mg PO DAILY [facility] Last Admin: 08/30/17 09:09 Dose: 81 mg Insulin Human Regular (Humulin R Low) 0 units SC ACHS [facility] PRN Reason: Protocol Last Admin: 08/30/17 12:00 Dose: 1 units Isosorbide Mononitrate (Imdur Er) 30 mg PO DAILY [facility] Last Admin: 08/30/17 09:09 Dose: 30 mg Levothyroxine Sodium (Synthroid) 50 mcg PO ACB [facility] Last Admin: 08/30/17 09:11 Dose: 50 mcg Metoprolol Tartrate (Lopressor) 25 mg PO 0800,1800 [facility] Last Admin: 08/30/17 09:08 Dose: Not Given Pantoprazole Sodium (Protonix Ec Tab) 40 mg PO ACB [facility] Last Admin: 08/30/17 09:11 Dose: 40 mg Polyethylene Glycol (Miralax) 17 gm PO BID [facility] Last Admin: 08/30/17 09:22 Dose: Not Given - Labs Labs: 08/27/17 05:30 08/28/17 06:30 PT 15.7 SECONDS (9.4-12.5) H 08/25/17 13:17 INR 1.36 (0.93-1.08) H 08/25/17 13:17 APTT 29.4 Seconds (25.1-36.5) 08/25/17 13:17 - Constitutional Appears: No Acute Distress - Eye Exam Eye Exam: Normal appearance. absent: Scleral icterus - ENT Exam ENT Exam: Mucous Membranes Moist - Respiratory Exam Respiratory Exam: NORMAL BREATHING PATTERN. absent: Respiratory Distress - Cardiovascular Exam Cardiovascular Exam: +S1, +S2 - GI/Abdominal Exam GI & Abdominal Exam: Soft, Tenderness, Normal Bowel Sounds. absent: Guarding, Organomegaly, Rebound - Extremities Exam Extremities Exam: absent: Calf Tenderness, Pedal Edema - Neurological Exam Neurological Exam: Alert, Awake, Oriented x3 Assessment and Plan - Assessment and Plan (Free Text) Assessment: ASSESSMENT: RUQ abdominal pain, differential Biliary colic Cholelithiasis w/ sludge, CBD 6.3 mm on abdominal US ESRD on hemodialysis DM H/O of recurrent diverticulitis H/O constipation PLAN advance diet to soft low-fat diet give Dulcolax 2 tablets now as well as Dulcolax suppository Continue MiraLAX twice a day continue PPI on Aspirin Case discussed with Dr. Ascencio Seen and discussed w/ Dr. Theodore.
--- NOTE | 2017-08-30 19:41 | PN ---
DATE: 08/30/2017 SUBJECTIVE: The patient is seen lying in bed. She is complaining of abdominal pain. She complains of diffuse abdominal pain all over. She ate a good lunch. She denies any nausea or vomiting. PHYSICAL EXAMINATION: GENERAL: Elderly lady, lying in bed. VITAL SIGNS: Blood pressure 144/94, heart rate 77, respiratory rate 20, temperature 98.3. HEENT: Normocephalic, atraumatic, positive pallor. NECK: Supple, no JVD. LUNGS: Bilateral equal air entry, no rales. CARDIAC: S1 and S2, regular rate and rhythm, no murmur, no rub. ABDOMEN: Distended, soft, diffuse tenderness. Bowel sounds present. EXTREMITIES: No lower extremity edema. LABORATORY DATA: No new labs. MEDICATIONS: Aspirin, insulin, Imdur, Lopressor, MiraLax, Protonix, Synthroid, Dulcolax. ASSESSMENT AND PLAN: 1. Severe abdominal pain, ? Secondary to constipation, 2. Hypertension. 3. End-stage renal disease. 4. Coronary artery disease. 5. [id number] diabetes mellitus. 6. Chronic anemia. PLAN: 1. enema. 2. Stable dialysis yesterday. 3. Dialysis again tomorrow. 4. Treatment of constipation. Barbi Linares MD
[2017-08-31] MEDS: Insulin Reg-LOW-Coverage SC SCH ×3 (08:44→18:27)
[2017-08-31] MEDS: Pantoprazole 40 mg EC Tab PO SCH (08:48)
[2017-08-31] MEDS: Levothyroxine 50 MCG TAB PO SCH (08:48)
[2017-08-31] MEDS: POLYETHYLENE GLYCOL 3350 17 GM/Dose PACKET PO SCH ×2 (11:12→18:36)
--- NOTE | 2017-08-31 12:19 | CP.PCM.PN ---
Subjective - Date & Time of Evaluation Date of Evaluation: 08/31/17 Time of Evaluation: 10:00 - Subjective Subjective: Seen and examined at the bedside earlier today, chart review. Patient did not experience much abdominal discomfort last night as the past 2 days. No nausea, vomiting, still gets some abdominal discomfort but no acute distress. Patient was given multiple laxatives yesterday , pt reports no BM, but as per nursing pt had small BM last night. No reports of overt GI bleeding. Patient tolerated for melena and coffee this morning. No acute overnight events reported. Objective - Vital Signs/Intake and Output Vital Signs (last 24 hours): Temp Pulse Resp BP Pulse Ox 98.1 F 77 20 95/41 L 100 08/31/17 06:00 08/31/17 08:45 08/31/17 06:00 08/31/17 08:45 08/31/17 06:00 Intake and Output: 08/31/17 08/31/17 06:59 18:59 Intake Total 400 Balance 400 - Medications Medications: Current Medications Aspirin (Aspirin Chewable) 81 mg PO DAILY [facility] Last Admin: 08/31/17 11:17 Dose: 81 mg Insulin Human Regular (Humulin R Low) 0 units SC ACHS [facility] PRN Reason: Protocol Last Admin: 08/31/17 08:44 Dose: Not Given Isosorbide Mononitrate (Imdur Er) 30 mg PO DAILY [facility] Last Admin: 08/31/17 11:17 Dose: 30 mg Levothyroxine Sodium (Synthroid) 50 mcg PO ACB [facility] Last Admin: 08/31/17 08:48 Dose: 50 mcg Metoprolol Tartrate (Lopressor) 25 mg PO 0800,1800 [facility] Last Admin: 08/31/17 08:45 Dose: Not Given Pantoprazole Sodium (Protonix Ec Tab) 40 mg PO ACB [facility] Last Admin: 08/31/17 08:48 Dose: 40 mg Polyethylene Glycol (Miralax) 17 gm PO BID [facility] Last Admin: 08/31/17 11:12 Dose: Not Given - Labs Labs: 08/27/17 05:30 08/28/17 06:30 PT 15.7 SECONDS (9.4-12.5) H 08/25/17 13:17 INR 1.36 (0.93-1.08) H 08/25/17 13:17 APTT 29.4 Seconds (25.1-36.5) 08/25/17 13:17 - Constitutional Appears: No Acute Distress - Head Exam Head Exam: NORMOCEPHALIC - Eye Exam Eye Exam: Normal appearance. absent: Scleral icterus - ENT Exam ENT Exam: Mucous Membranes Moist - Respiratory Exam Respiratory Exam: NORMAL BREATHING PATTERN. absent: Respiratory Distress - Cardiovascular Exam Cardiovascular Exam: +S1, +S2 - GI/Abdominal Exam GI & Abdominal Exam: Soft, Tenderness (epigastric), Normal Bowel Sounds. absent : Guarding, Rebound - Extremities Exam Extremities Exam: absent: Calf Tenderness - Neurological Exam Neurological Exam: Alert, Awake, Oriented x3 - Skin Skin Exam: Dry, Warm Assessment and Plan - Assessment and Plan (Free Text) Assessment: ASSESSMENT: RUQ abdominal pain, differential Biliary colic Cholelithiasis w/ sludge, CBD 6.3 mm on abdominal US Constipation ESRD on hemodialysis DM H/O of recurrent diverticulitis PLAN continue diet as tolerated Continue MiraLAX twice a day, hold for stools >2/day continue PPI on Aspirin dialysis at [facility] today. Case discussed with Dr. Ascencio Seen and discussed w/ Dr. Theodore.
--- NOTE | 2017-08-31 17:55 | PN ---
DATE: 08/31/2017 SUBJECTIVE: The patient is seen in the dialysis unit. She is awake. She is alert. She reports she is not feeling well. She complains of abdominal pain. Reports poor appetite. PHYSICAL EXAMINATION: GENERAL: Elderly lady lying in bed. VITAL SIGNS: Blood pressure 95/41, heart rate 77, respiratory rate 20, temperature 98.1. HEENT: Normocephalic, atraumatic, positive pallor. NECK: Supple, no JVD. LUNGS: Bilateral equal air entry, bilateral rhonchi. CARDIAC: S1 and S2, regular rate and rhythm, no murmur, no rub. ABDOMEN: Soft, nondistended, nontender, bowel sounds present. EXTREMITIES: No lower extremity edema. INTAKE AND OUTPUT: Not charted. LABORATORY DATA: No new labs. CURRENT MEDICATIONS: Aspirin, insulin, Imdur, Lopressor, MiraLax, Protonix, Synthroid. ASSESSMENT AND PLAN: 1. Abdominal pain, nausea, vomiting, severe constipation. 2. Hypertension. 3. Noninsulin-dependent diabetes mellitus. 4. End-stage renal disease. 5. Coronary artery disease. 6. Intermittent atrial fibrillation. PLAN: 1. Continue bowel regimen. 2. Stable dialysis. 3. Continue antihypertensives. 4. Monitor fingersticks. Barbi Linares MD
--- NOTE | 2017-08-31 22:05 | PN ---
DATE: 08/31/2017 SUBJECTIVE: Patient is resting in bed this morning. Nursing staff relates that there were no particular problems during the night. PHYSICAL EXAMINATION: VITAL SIGNS: Her temperature is reported to be 98.1, her pulse is 77, blood pressure is 142/53. LUNGS: Show diminished breath sounds at the bases. HEART: S1 and S2 rhythm. ABDOMEN: Soft, with positive bowel sounds. No evidence of rebound. EXTREMITIES: No evidence of edema. LABORATORY DATA: Her blood sugar was 136. ASSESSMENT AND PLAN: She is a patient with chronic renal disease and abdominal pain. She is scheduled for dialysis today. Her abdominal pain is slightly better than the prior day, and she has moved her bowels. The patient is being followed by GI and is receiving laxative support for constipation. She is being followed by Renal for her chronic renal disease and is scheduled for dialysis today. I will continue current level of care. Monitor patient on current diet and continue supportive care. Shavonne Ascencio MD
[2017-09-01] MEDS: Insulin Reg-LOW-Coverage SC SCH ×5 (00:06→22:09)
[2017-09-01] MEDS: Levothyroxine 50 MCG TAB PO SCH (09:00)
[2017-09-01] MEDS: Pantoprazole 40 mg EC Tab PO SCH (09:13)
[2017-09-01] MEDS: POLYETHYLENE GLYCOL 3350 17 GM/Dose PACKET PO SCH ×2 (09:14→19:41)
[2017-09-01] MEDS: Bacitracin 500 Units/gm Oint Foilpak UD TOP SCH ×2 (11:00→19:40)
--- NOTE | 2017-09-01 11:58 | PN ---
DATE: 09/01/2017 SUBJECTIVE: The patient has no complaints of any chest pain. No shortness of breath. No headaches. PHYSICAL EXAMINATION: VITAL SIGNS: Temperature is 98.1, pulse listed 99, blood pressure 122/64, respirations 20. GENERAL: The patient is lying in bed, flat, comfortable. HEENT: No oral lesion. Anicteric sclerae. Moist mucosa. NECK: No JVD, adenopathy, or thyromegaly. CARDIOVASCULAR: S1 and S2, regular. No murmurs, rubs, or gallops. LUNGS: Clear to auscultation bilaterally. No wheeze, rales, or rhonchi. ABDOMEN: Bowel sounds are positive, soft, nontender and nondistended. EXTREMITIES: No cyanosis, clubbing or edema. LABORATORY DATA: White count is 7.3, hemoglobin 9.6, creatinine is 3.9. ASSESSMENT: 1. Abdominal pain. 2. Pleural effusion, right greater than left. 3. L3-4 and L4-L5 disk herniation. 4. End-stage renal disease, on hemodialysis. 5. Hypothyroidism. 6. Diabetes type 2. 7. Secondary hyperparathyroidism. 8. Anemia, chronic, secondary to end-stage renal disease. PLAN: The patient is currently comfortable. She is on MiraLax for constipation. She is going to continue with Protonix. The patient is on Synthroid for hypothyroidism. She is on metoprolol. She is being followed by Nephrology. Gallo Grant MD
[2017-09-02 06:41] LABS: BASO # 0.01 K/mm3 (0.0-2.0); BASO % 0.1 % (0.0-3.0); EOS # 0.1 (0.0-0.7); EOS % 0.7 % (1.5-5.0); GRAN # 5.76 (1.4-6.5); GRAN % 75.3 % (50.0-68.0); HEMOGLOBIN 9.6 g/dL (12.0-16.0); LYMPH # 1.4 (1.2-3.4); LYMPH % 18.1 % (22.0-35.0); MEAN CELL VOLUME 97.2 fl (80.0-105.0); MEAN CORPUSCULAR HEMOGLOBIN 30.3 pg (25.0-35.0); MEAN CORPUSCULAR HGB CONC 31.2 g/dl (31.0-37.0); MEAN PLATELET VOLUME 10.1 fl (7.0-11.0); MONO # 0.4 (0.1-0.6); MONO % 5.8 % (1.0-6.0); RBC 3.17 10^6/uL (3.5-6.1); RED CELL DISTRIBUTION WIDTH 19.9 % (11.5-14.5); WHITE BLOOD COUNT 7.6 10^3/ul (4.5-11.0)
[2017-09-02 06:51] LABS: ALB/GLOB RATIO 0.6 (1.1-1.8); CALCIUM 7.9 mg/dL (8.4-10.5)
[2017-09-02] MEDS: Insulin Reg-LOW-Coverage SC SCH ×4 (08:29→17:37)
[2017-09-02] MEDS: Bacitracin 500 Units/gm Oint Foilpak UD TOP SCH ×2 (10:18→17:25)
[2017-09-02] MEDS: Pantoprazole 40 mg EC Tab PO SCH (10:19)
[2017-09-02] MEDS: POLYETHYLENE GLYCOL 3350 17 GM/Dose PACKET PO SCH ×2 (10:19→17:36)
[2017-09-02] MEDS: Levothyroxine 50 MCG TAB PO SCH (12:15)
[2017-09-02] MEDS ORDERED: Lidocaine 1%/Epinephrine 1:100000 30 ml vial IJ ONE (12:25)
--- NOTE | 2017-09-02 13:27 | CP.PCM.CON ---
History of Present Illness - History of Present Illness History of Present Illness: General surgery consult note for Dr. Vijay Soto, PGY-1 Pt S & E at bedside at 1310 82F w/significant co-morbidities consulted for left perineal lesion. Pt reports lesion noted a few weeks ago, growing in size, tender to palpation. Originally admitted for abdominal pain. Denies N & V, F & C, chest pain, SOB, other complaints. PMH: hx C diff, ESRD on HD, COPD, CHF, hx PNA, dizziness, anemia, GERD, diverticulitis, hx falls, anxiety, depression, cholelithiasis, [place], hypothyroidism PSH; PCI, hysterectomy, LUE AVF, left hip sx All: Ceftriaxone SH: Denies ETOH, tobacco, illicit drug use PMD: Dr. Ascencio Review of Systems - Review of Systems All systems: reviewed and no additional remarkable complaints except - Constitutional Constitutional: absent: Chills, Fever - EENT Nose/Mouth/Throat: absent: Sore Throat - Cardiovascular Cardiovascular: absent: Chest Pain - Gastrointestinal Gastrointestinal: Abdominal Pain. absent: Constipation, Diarrhea, Nausea, Vomiting - Integumentary Integumentary: New Lesions - Psychiatric Psychiatric: absent: Change in Appetite Past Patient History - Infectious Disease Hx of Infectious Diseases: C.diff - Tetanus Immunizations Tetanus Immunization: Unknown - Past Social History Smoking Status: Never Smoked - CARDIAC Hx Cardiac Disorders: Yes (M.I.) Hx Congestive Heart Failure: Yes Hx Hypercholesterolemia: Yes Hx Hypertension: Yes - PULMONARY Hx Chronic Obstructive Pulmonary Disease (COPD): Yes - NEUROLOGICAL Hx Neurological Disorder: Yes (numbnes/tingling left leg and ft) Hx Dizziness: Yes - HEENT Hx HEENT Problems: Yes Hx Cataracts: Yes (b/l sx) - RENAL Hx Renal Failure: Yes (ESRD on HD MWFSat) - ENDOCRINE/METABOLIC Hx Diabetes Mellitus Type 2: Yes Hx Hypothyroidism: Yes - HEMATOLOGICAL/ONCOLOGICAL Hx Blood Disorders: Yes Hx Anemia: Yes - INTEGUMENTARY Hx Dermatological Problems: No Other/Comment: L arm shunt fas dsg over iy, excellent bruit at site - MUSCULOSKELETAL/RHEUMATOLOGICAL Hx Musculoskeletal Disorders: Yes Hx Falls: Yes (fell & hurt L ankle) Hx Unsteady Gait: Yes (CANE) - GASTROINTESTINAL Hx Gastrointestinal Disorders: Yes (POOR APPETITE,GERD,DIVERTICULITIS,RECTAL BLEED. H/O C DIFF.) Other/Comment: CHOLELITHIASIS - GENITOURINARY/GYNECOLOGICAL Hx Genitourinary Disorders: Yes (VRE IN THE URINE.OLIGURIA.ESRD ON HD) - PSYCHIATRIC Hx Psychophysiologic Disorder: Yes Hx Anxiety: Yes Hx Depression: Yes Hx Substance Use: No - SURGICAL HISTORY Hx Surgeries: Yes Hx Cardiac Catheterization: Yes Hx Hysterectomy: Yes Hx Orthopedic Surgery: Yes (left hip replacement) Other/Comment: desi av shunt - ANESTHESIA Hx Anesthesia: Yes Hx Anesthesia Reactions: No Hx Malignant Hyperthermia: No Meds Allergies/Adverse Reactions: Allergies Allergy/AdvReac Type Severity Reaction Status Date / Time ceftriaxone Allergy ITCHING Verified 08/25/17 16:26 - Medications Medications: Current Medications Aspirin (Aspirin Chewable) 81 mg PO DAILY [facility] Last Admin: 09/02/17 12:16 Dose: 81 mg Bacitracin (Bacitracin) 2 ea TOP BID [facility] Last Admin: 09/02/17 10:18 Dose: 2 ea Insulin Human Regular (Humulin R Low) 0 units SC ACHS [facility] PRN Reason: Protocol Last Admin: 09/02/17 11:31 Dose: Not Given Isosorbide Mononitrate (Imdur Er) 30 mg PO DAILY [facility] Last Admin: 09/02/17 10:18 Dose: 30 mg Levothyroxine Sodium (Synthroid) 50 mcg PO ACB [facility] Last Admin: 09/02/17 12:15 Dose: 50 mcg Metoprolol Tartrate (Lopressor) 25 mg PO 0800,1800 [facility] Last Admin: 09/02/17 10:18 Dose: 25 mg Pantoprazole Sodium (Protonix Ec Tab) 40 mg PO ACB [facility] Last Admin: 09/02/17 10:19 Dose: 40 mg Polyethylene Glycol (Miralax) 17 gm PO BID [facility] Last Admin: 09/02/17 10:19 Dose: Not Given Physical Exam - Constitutional Appears: Non-toxic, No Acute Distress, Cachectic - Head Exam Head Exam: ATRAUMATIC, NORMAL INSPECTION, NORMOCEPHALIC - Eye Exam Eye Exam: EOMI, Normal appearance - ENT Exam ENT Exam: Mucous Membranes Moist, Normal Exam - Neck Exam Neck exam: Positive for: Full Rom, Normal Inspection - Respiratory Exam Respiratory Exam: NORMAL BREATHING PATTERN - Cardiovascular Exam Cardiovascular Exam: REGULAR RHYTHM, +S1, +S2 - GI/Abdominal Exam GI & Abdominal Exam: Soft, Tenderness (diffuse). absent: Distended - Extremities Exam Extremities exam: Negative for: normal inspection (left perineal area with erythematous area, approximately 5 x 6 cm, induration, fluctuance, some drainage ) - Neurological Exam Neurological exam: Alert, CN II-XII Intact, Oriented x3 - Psychiatric Exam Psychiatric exam: Normal Affect, Normal Mood - Skin Skin Exam: Dry, Intact, Normal Color, Warm Additional comments: please see extremity exam for skin findings of left perineal area Results - Vital Signs Recent Vital Signs: Last Vital Signs Temp 97.5 F L 09/02/17 07:37 Pulse 68 09/02/17 10:18 Resp 20 09/02/17 07:37 BP 115/72 09/02/17 10:18 Pulse Ox 98 09/02/17 07:37 - Labs Result Diagrams: 09/02/17 05:30 09/02/17 05:30 Labs: Laboratory Results - last 24 hr 09/01/17 09/01/17 09/02/17 16:51 21:45 05:30 WBC 7.6 RBC 3.17 L Hgb 9.6 L Hct 30.8 L MCV 97.2 MCH 30.3 MCHC 31.2 RDW 19.9 H Plt Count 105 L MPV 10.1 Gran % 75.3 H Lymph % (Auto) 18.1 L [place] % (Auto) 5.8 Eos % (Auto) 0.7 L Baso % (Auto) 0.1 Gran # 5.76 Lymph # (Auto) 1.4 [place] # (Auto) 0.4 Eos # (Auto) 0.1 Baso # (Auto) 0.01 Sodium Potassium Chloride Carbon Dioxide Anion Gap BUN Creatinine Est GFR ( Amer) Est GFR (Non-Af Amer) POC Glucose (mg/dL) 174 H 128 H Random Glucose Calcium Total Bilirubin AST ALT Alkaline Phosphatase Total Protein Albumin Globulin Albumin/Globulin Ratio 09/02/17 09/02/17 09/02/17 05:30 07:20 11:22 WBC RBC Hgb Hct MCV MCH MCHC RDW Plt Count MPV Gran % Lymph % (Auto) [place] % (Auto) Eos % (Auto) Baso % (Auto) Gran # Lymph # (Auto) [place] # (Auto) Eos # (Auto) Baso # (Auto) Sodium 136 Potassium 5.0 Chloride 93 L Carbon Dioxide 29 Anion Gap 18 BUN 30 H Creatinine 4.1 H Est GFR ( Amer) 13 Est GFR (Non-Af Amer) 10 POC Glucose (mg/dL) 115 H 138 H Random Glucose 138 H Calcium 7.9 L Total Bilirubin 1.5 H AST 43 H D ALT 18 Alkaline Phosphatase 69 Total Protein 7.6 Albumin 3.0 Globulin 4.7 Albumin/Globulin Ratio 0.6 L Assessment & Plan - Assessment and Plan (Free Text) Assessment: 82F w/left perineal superficial abscess Plan: Plan for bedside I & D Lidocaine Consent in chart DW attending Brittany, PGY-1 - Date & Time Date: 09/02/17 Time: 13:27 - Incision & Drainage Of Abscess Anesthesia: Lidocaine 1%, With Epi Prep Used: Betadine Procedure: Incised W/Scalpel Blade#: (10), Drained Pus, Probed To Break Up Loculations, Packed W/Gauze
--- NOTE | 2017-09-02 14:19 | PN ---
DATE: 09/02/2017 SUBJECTIVE: This 82-year-old female resting in bed this morning. The patient states that she is having intermittent abdominal discomfort. She states that it is better since admission. She is moving her bowels according to the nursing staff. PHYSICAL EXAMINATION: VITAL SIGNS: Her temperature is 97.5, her pulse is 68, her blood pressure is 115/72, oxygen sat is 98% on 2 L of nasal oxygen. GENERAL: She is alert and oriented x3. LUNGS: Diminished breath sounds at the bases. HEART: S1 and S2 rhythm with a 2/6 systolic murmur. ABDOMEN: Soft with positive bowel sounds. No rebound is appreciated. There is a left inguinal cyst like/abscess like process noted which was reviewed with the nurse, in the left groin. No evidence of drainage at this time. LABORATORY DATA: Shows WBC is 7.6, hemoglobin 9.6, hematocrit 30.8, platelet count is 105. Chemistry shows normal electrolytes, the BUN is 30, and the creatinine is 4.1. Random blood sugar is 115. Total bilirubin is 1.5, AST is 43. Albumin is 3. MEDICATIONS: Currently, the patient is on Ecotrin 81 mg daily, bacitracin topical to the wound site, sliding insulin scale for her diabetes, Imdur 30 mg daily, Lopressor 25 mg b.i.d., MiraLax 17 g b.i.d., Protonix 40 mg daily, and Synthroid 50 mcg daily. PROBLEMS: 1. Abdominal pain, history of gallstones. The patient has been given a laxative regimen, she is on the laxative regimen at this time and has moved her bowels. CAT scan has been performed and we will review with GI. 2. Chronic renal disease, on dialysis. 3. Ishemic heart disease. 4. History of paroxysmal atrial fibrillation. 5. History of carotid disease. 6. Remote history of left hip surgery. 7. Hypothyroid disease. 8. History of diverticulitis. 9. History of Clostridium difficile. 10. History of diabetes. PLAN: We will get a surgical evaluation for the finding in the left groin. Bacitracin topically has been ordered. We will continue current medications at this time and plan of care as per the individual consultants. Shavonne Ascencio MD
[2017-09-02] MEDS ORDERED: Oxycodone/Acetaminophen 5/325 mg Tab PO STA (17:09)
--- NOTE | 2017-09-02 19:39 | PN ---
DATE: 09/02/2017 SUBJECTIVE: The patient is seen lying in bed. Son is at bedside. She reports abdominal pain. She complains of diffuse abdominal pain. She complains of constipation. PHYSICAL EXAMINATION: GENERAL: Elderly lady lying in bed. VITAL SIGNS: Blood pressure 115/72, heart rate 68, respiratory rate 18, temperature 97.5. HEENT: Normocephalic, atraumatic, positive pallor. NECK: Supple, no JVD. LUNGS: Bilateral equal air entry, bilateral equal expansion. CARDIAC: S1 and S2, regular rate and rhythm, no murmur, no rub. ABDOMEN: Soft, nondistended, nontender, bowel sounds present. EXTREMITIES: No lower extremity edema. LABORATORY DATA: WBC 7.6, hemoglobin 9.6, hematocrit 30.8, platelets 105. Sodium 136, potassium 5, chloride 93, CO2 29, BUN 30, creatinine 4.1, glucose 138. MEDICATIONS: Medications list is reviewed. ASSESSMENT: 1. Diffuse abdominal pain/constipation. 2. Coronary artery disease. 3. End-stage renal disease. 4. Anemia of chronic kidney disease. 5. Noninsulin-dependent diabetes mellitus. 6. Paroxysmal atrial fibrillation. 7. Diverticulitis. PLAN: 1. Continue bowel regimen as per GI. 2. Next hemodialysis tomorrow. 3. Monitor fingersticks. 4. Continue current antihypertensives. Barbi Linares MD
--- NOTE | 2017-09-03 08:50 | CP.PCM.PN ---
Subjective - Date & Time of Evaluation Date of Evaluation: 09/03/17 Time of Evaluation: 07:30 - Subjective Subjective: Surgery progress note for Dr. Kelley Patient seen and examined at bedside. Per nursing staff, no acute events overnight. Patient still complaining of pain. Denies fever, chills, nausea, vomiting, diarrhea. Objective - Vital Signs/Intake and Output Vital Signs (last 24 hours): Temp Pulse Resp BP Pulse Ox 98.3 F 65 18 145/58 L 100 09/03/17 07:57 09/03/17 07:57 09/03/17 07:57 09/03/17 07:57 09/03/17 07:57 - Medications Medications: Current Medications Aspirin (Aspirin Chewable) 81 mg PO DAILY [facility] Last Admin: 09/02/17 12:16 Dose: 81 mg Bacitracin (Bacitracin) 2 ea TOP BID [facility] Last Admin: 09/02/17 17:25 Dose: 2 ea Insulin Human Regular (Humulin R Low) 0 units SC ACHS [facility] PRN Reason: Protocol Last Admin: 09/02/17 17:37 Dose: 2 units Isosorbide Mononitrate (Imdur Er) 30 mg PO DAILY [facility] Last Admin: 09/02/17 10:18 Dose: 30 mg Levothyroxine Sodium (Synthroid) 50 mcg PO ACB [facility] Last Admin: 09/02/17 12:15 Dose: 50 mcg Metoprolol Tartrate (Lopressor) 25 mg PO 0800,1800 [facility] Last Admin: 09/02/17 17:25 Dose: 25 mg Pantoprazole Sodium (Protonix Ec Tab) 40 mg PO ACB [facility] Last Admin: 09/02/17 10:19 Dose: 40 mg Polyethylene Glycol (Miralax) 17 gm PO BID [facility] Last Admin: 09/02/17 17:36 Dose: Not Given - Labs Labs: 09/02/17 05:30 09/02/17 05:30 PT 15.7 SECONDS (9.4-12.5) H 08/25/17 13:17 INR 1.36 (0.93-1.08) H 08/25/17 13:17 APTT 29.4 Seconds (25.1-36.5) 08/25/17 13:17 - Constitutional Appears: Non-toxic, No Acute Distress, Chronically Ill - Head Exam Head Exam: NORMAL INSPECTION - Eye Exam Eye Exam: Normal appearance - ENT Exam ENT Exam: Mucous Membranes Moist - Respiratory Exam Respiratory Exam: NORMAL BREATHING PATTERN - Cardiovascular Exam Cardiovascular Exam: +S1, +S2 - GI/Abdominal Exam GI & Abdominal Exam: Soft. absent: Tenderness - Extremities Exam Extremities Exam: Normal Inspection - Neurological Exam Neurological Exam: Alert, Awake - Skin Additional comments: Left groin with abscess s/p I&D; dressing changed; no bleeding; mild erythema and scant drainage Assessment and Plan - Assessment and Plan (Free Text) Assessment: 82 yo F with left perineal abscess s/p bedside I&D on 09/02/17 Plan: -- Iodoform packing removed and replaced; dry gauze dressing changed at bedside -- Wound culture obtained -- Okay to discharge on PO antibiotics, and follow up as outpatient in one week for packing change/removal -- f/u ID recs -- Will continue to follow while in house Further recs per Dr. Warren Yang PGY1
[2017-09-03] MEDS: POLYETHYLENE GLYCOL 3350 17 GM/Dose PACKET PO SCH ×2 (08:59→17:20)
[2017-09-03] MEDS: Bacitracin 500 Units/gm Oint Foilpak UD TOP SCH ×2 (08:59→17:19)
[2017-09-03] MEDS: Levothyroxine 50 MCG TAB PO SCH (09:00)
[2017-09-03] MEDS: Insulin Reg-LOW-Coverage SC SCH ×3 (09:00→21:39)
[2017-09-03] MEDS: Pantoprazole 40 mg EC Tab PO SCH (09:00)
[2017-09-03 10:41] LABS: BASO # 0.01 K/mm3 (0.0-2.0); BASO % 0.1 % (0.0-3.0); EOS % 0.1 % (1.5-5.0); GRAN # 13.56 (1.4-6.5); GRAN % 89.2 % (50.0-68.0); LYMPH # 1.1 (1.2-3.4); MEAN CELL VOLUME 95.4 fl (80.0-105.0); MEAN CORPUSCULAR HEMOGLOBIN 30.9 pg (25.0-35.0); MEAN CORPUSCULAR HGB CONC 32.4 g/dl (31.0-37.0); MEAN PLATELET VOLUME 10.2 fl (7.0-11.0); MONO # 0.6 (0.1-0.6); MONO % 3.6 % (1.0-6.0); RBC 3.24 10^6/uL (3.5-6.1); RED CELL DISTRIBUTION WIDTH 19.5 % (11.5-14.5); WHITE BLOOD COUNT 15.2 10^3/ul (4.5-11.0)
[2017-09-03] MEDS ORDERED: Vancomycin 1gm in NS 250ml 1 GM/250 ML BAG IVPB STA (10:42)
[2017-09-03 10:59] LABS: ALB/GLOB RATIO 0.6 (1.1-1.8); CALCIUM 7.8 mg/dL (8.4-10.5)
--- NOTE | 2017-09-03 16:07 | PN ---
DATE: 09/03/2017 SUBJECTIVE: Margo Hopperna was seen with the resident for the abscess on the left inner thigh, it was examined, I and D was done by . It is packed from my point of view, attending the cultures. The patient to be discharged and followed on oral antibiotic. Either Bactrim DS or some anti-staph medication. In any case, I will see the patient in my office to remove the packing in about a week. Edwin Kelley MD
--- NOTE | 2017-09-03 17:36 | CP.PCM.CON ---
History of Present Illness - History of Present Illness History of Present Illness: 81 year old female with PMH of HTN, DM, CAD with chronic CHF, ESRD on HD [place] [facility] [place] pain. On further questioning, the patient is having pain in the perineal area, and the patient is found to have an indurated / fluctuant area in the left perineal area. Surgery has seen the patient and I and D was done yesterday. Infectious diseases consult is requested for antibiotic management. Currently the patient denies fever or chills, no nausea or vomiting, no chest pain, no SOB, no cough or rhinorrhea, no abdominal pain, no diarrhea, no dysuria, no headache or dizziness, no dysphagia, no sore throat. 81 year old female with PMH of HTN, DM, CAD with chronic CHF, ESRD on HD initially came in to [facility] with cough and SOB and is being treated for probable healthcare-associated pneumonia. She has improved on antibiotics and is now transferred to [facility] for continued medical therapy and physical rehabilitation. Infectious diseases consult is requested to continue her antibiotic therapy. Currently she is feeling somewhat better with less cough and less shortness of breath. She has no fevers, no headache or dizziness , no blurring of vision, no chest pain, no dysuria, no hematuria, no diarrhea, no abdominal pain. General surgery consult note for Dr. Vijay Soto, PGY-1 Pt S & E at bedside at 1310 82F w/significant co-morbidities consulted for left perineal lesion. Pt reports lesion noted a few weeks ago, growing in size, tender to palpation. Originally admitted for abdominal pain. Denies N & V, F & C, chest pain, SOB, other complaints. PMH: hx C diff, ESRD on HD, COPD, CHF, hx PNA, dizziness, anemia, GERD, diverticulitis, hx falls, anxiety, depression, cholelithiasis, NE, hypothyroidism PSH; PCI, hysterectomy, LUE AVF, left hip sx All: Ceftriaxone SH: Denies ETOH, tobacco, illicit drug use PMD: Dr. Ascencio Assessment sepsis due to E. coli bacteremia probably from acute left sided diverticulitis, as well as left upper lobe HCAP VRE in the urine, R/O contamination (with Edge catheter) history of C. diff. associated diarrhea S/P severe sepsis with acute sigmoid diverticulitis and acute cholecystitis history of acute NSTEMI history of sepsis due to acute descending colon diverticulitis and bilateral lobe healthcare-associated pneumonia history of healthcare-associated pneumonia (right upper lobe, bilateral lower lobes) HTN DM CAD with chronic CHF ESRD on HD Plan on Merrem (day 13) - complete 10-14 days of antibiotics patient has no indwelling hardware or catheters currently overall prognosis is poor Review of Systems - Review of Systems All systems: reviewed and no additional remarkable complaints except (as per HPI ) Past Patient History - Infectious Disease Hx of Infectious Diseases: C.diff - Tetanus Immunizations Tetanus Immunization: Unknown - Past Social History Smoking Status: Never Smoked - CARDIAC Hx Cardiac Disorders: Yes (M.I.) Hx Congestive Heart Failure: Yes Hx Hypercholesterolemia: Yes Hx Hypertension: Yes - PULMONARY Hx Chronic Obstructive Pulmonary Disease (COPD): Yes - NEUROLOGICAL Hx Neurological Disorder: Yes (numbnes/tingling left leg and ft) Hx Dizziness: Yes - HEENT Hx HEENT Problems: Yes Hx Cataracts: Yes (b/l sx) - RENAL Hx Renal Failure: Yes (ESRD on HD MWFSat) - ENDOCRINE/METABOLIC Hx Diabetes Mellitus Type 2: Yes Hx Hypothyroidism: Yes - HEMATOLOGICAL/ONCOLOGICAL Hx Blood Disorders: Yes Hx Anemia: Yes - INTEGUMENTARY Hx Dermatological Problems: No Other/Comment: L arm shunt fas dsg over iy, excellent bruit at site - MUSCULOSKELETAL/RHEUMATOLOGICAL Hx Musculoskeletal Disorders: Yes Hx Falls: Yes (fell & hurt L ankle) Hx Unsteady Gait: Yes (CANE) - GASTROINTESTINAL Hx Gastrointestinal Disorders: Yes (POOR APPETITE,GERD,DIVERTICULITIS,RECTAL BLEED. H/O C DIFF.) Other/Comment: CHOLELITHIASIS - GENITOURINARY/GYNECOLOGICAL Hx Genitourinary Disorders: Yes (VRE IN THE URINE.OLIGURIA.ESRD ON HD) - PSYCHIATRIC Hx Psychophysiologic Disorder: Yes Hx Anxiety: Yes Hx Depression: Yes Hx Substance Use: No - SURGICAL HISTORY Hx Surgeries: Yes Hx Cardiac Catheterization: Yes Hx Hysterectomy: Yes Hx Orthopedic Surgery: Yes (left hip replacement) Other/Comment: desi av shunt - ANESTHESIA Hx Anesthesia: Yes Hx Anesthesia Reactions: No Hx Malignant Hyperthermia: No Meds Allergies/Adverse Reactions: Allergies Allergy/AdvReac Type Severity Reaction Status Date / Time ceftriaxone Allergy ITCHING Verified 08/25/17 16:26 - Medications Medications: Current Medications Aspirin (Aspirin Chewable) 81 mg PO DAILY [facility] Last Admin: 09/03/17 09:00 Dose: 81 mg Bacitracin (Bacitracin) 2 ea TOP BID [facility] Last Admin: 09/03/17 08:59 Dose: 2 ea Insulin Human Regular (Humulin R Low) 0 units SC ACHS [facility] PRN Reason: Protocol Last Admin: 09/03/17 09:00 Dose: Not Given Isosorbide Mononitrate (Imdur Er) 30 mg PO DAILY [facility] Last Admin: 09/03/17 09:03 Dose: Not Given Levothyroxine Sodium (Synthroid) 50 mcg PO ACB [facility] Last Admin: 09/03/17 09:00 Dose: 50 mcg Metoprolol Tartrate (Lopressor) 25 mg PO 0800,1800 [facility] Last Admin: 09/03/17 09:05 Dose: Not Given Pantoprazole Sodium (Protonix Ec Tab) 40 mg PO ACB [facility] Last Admin: 09/03/17 09:00 Dose: 40 mg Polyethylene Glycol (Miralax) 17 gm PO BID [facility] Last Admin: 09/03/17 08:59 Dose: 17 gm Physical Exam - Constitutional Appears: Chronically Ill - Head Exam Head Exam: NORMAL INSPECTION - Neck Exam Neck exam: Negative for: Meningismus - Respiratory Exam Respiratory Exam: Decreased Breath Sounds - Cardiovascular Exam Cardiovascular Exam: +S1, +S2 - GI/Abdominal Exam GI & Abdominal Exam: Soft. absent: Tenderness Results - Vital Signs Recent Vital Signs: Last Vital Signs Temp 98.3 F 09/03/17 07:57 Pulse 65 09/03/17 07:57 Resp 18 09/03/17 07:57 BP 145/58 L 09/03/17 07:57 Pulse Ox 100 09/03/17 07:57 - Labs Result Diagrams: 09/03/17 10:37 09/03/17 10:37 Labs: Laboratory Results - last 24 hr 09/02/17 09/02/17 09/02/17 11:22 16:27 22:08 POC Glucose (mg/dL) 138 H 221 H 128 H 09/03/17 07:21 POC Glucose (mg/dL) 118 H Assessment & Plan - Assessment and Plan (Free Text) Plan: Assessment left perineal abscess S/P I and D POD #1 history of sepsis due to E. 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 diff. associated diarrhea S/P severe sepsis with acute sigmoid diverticulitis and acute cholecystitis history of acute NSTEMI history of sepsis due to acute descending colon diverticulitis and bilateral lobe healthcare-associated pneumonia history of healthcare-associated pneumonia (right upper lobe, bilateral lower lobes) HTN DM CAD with chronic CHF ESRD on HD Plan gave a dose of IV Vancomycin and started Merrem pending cultures from the abscess will monitor clinically
--- NOTE | 2017-09-03 18:25 | PN ---
DATE: 09/03/2017 SUBJECTIVE: The patient is seen lying in bed. She is seen to be sleeping comfortably. PHYSICAL EXAMINATION: GENERAL: Elderly lady lying in bed. VITAL SIGNS: Blood pressure 140/62, heart rate 70, respiratory rate 18, temperature 98.2. HEENT: Normocephalic, atraumatic, positive pallor. NECK: Supple, no JVD. LUNGS: Bilateral equal air entry, bilateral equal expansion. CARDIAC: S1 and S2, regular rate and rhythm, no murmur, no rub. ABDOMEN: Soft, nondistended, nontender, bowel sounds present. EXTREMITIES: No lower extremity edema. LABORATORY DATA: WBC 15, hemoglobin 10, hematocrit 30.9, platelets 107. Sodium 133, potassium 5.4, chloride 93, CO2 of 25. BUN 41, creatinine 5.9. Glucose 201. Calcium 7.8, phosphorus 4.9, magnesium 1.7. Total bili 1.4. CURRENT MEDICATIONS: Aspirin, bacitracin, insulin, Imdur, Lopressor, meropenem 250 every 12 hours started today, MiraLax, Protonix, Synthroid. ASSESSMENT: 1. Abdominal pain, nausea and vomiting secondary to constipation. 2. Found to have left renal abscess, status post incision and drainage. 3. Qud-rbwxqst-pkdciyjvx diabetes mellitus. 4. Hypertension. 5. End-stage renal disease. 6. Anemia. PLAN: 1. Continue antibiotics as per ID recommendations. 2. Follow up cultures. 3. Stable dialysis today. 4. Continue fingerstick monitoring. 5. Continue current antihypertensives. Barbi Linares MD
[2017-09-04 06:51] LABS: BASO # 0.01 K/mm3 (0.0-2.0); BASO % 0.1 % (0.0-3.0); EOS # 0.1 (0.0-0.7); EOS % 0.7 % (1.5-5.0); GRAN # 7.17 (1.4-6.5); GRAN % 82.4 % (50.0-68.0); HEMOGLOBIN 10.1 g/dL (12.0-16.0); LYMPH # 0.9 (1.2-3.4); MEAN CELL VOLUME 97.3 fl (80.0-105.0); MEAN CORPUSCULAR HEMOGLOBIN 30.4 pg (25.0-35.0); MEAN CORPUSCULAR HGB CONC 31.3 g/dl (31.0-37.0); MEAN PLATELET VOLUME 9.5 fl (7.0-11.0); MONO # 0.6 (0.1-0.6); MONO % 6.8 % (1.0-6.0); RBC 3.32 10^6/uL (3.5-6.1); RED CELL DISTRIBUTION WIDTH 20.4 % (11.5-14.5); WHITE BLOOD COUNT 8.7 10^3/ul (4.5-11.0)
--- NOTE | 2017-09-04 07:38 | CP.PCM.PN ---
Subjective - Date & Time of Evaluation Date of Evaluation: 09/04/17 Time of Evaluation: 07:30 - Subjective Subjective: Surgery progress note for Dr. Kelley Patient seen and examined at bedside. Per nursing staff, no acute events overnight. Patient resting comfortably. Denies fever, chills, nausea, vomiting, diarrhea. Still has some pain over left groin. Objective - Vital Signs/Intake and Output Vital Signs (last 24 hours): Temp Pulse Resp BP Pulse Ox 98.2 F 70 18 140/62 98 09/03/17 17:44 09/03/17 17:44 09/03/17 17:44 09/03/17 17:44 09/03/17 17:44 Intake and Output: 09/04/17 09/04/17 06:59 18:59 Intake Total 360 Balance 360 - Medications Medications: Current Medications Aspirin (Aspirin Chewable) 81 mg PO DAILY [facility] Last Admin: 09/03/17 09:00 Dose: 81 mg Bacitracin (Bacitracin) 2 ea TOP BID [facility] Last Admin: 09/03/17 17:19 Dose: 2 ea Meropenem 250 mg/ Sodium (Chloride) 100 mls @ 100 mls/hr IVPB Q12H [facility] PRN Reason: Protocol Stop: 09/10/17 10:46 Last Admin: 09/03/17 21:45 Dose: 100 mls/hr Insulin Human Regular (Humulin R Low) 0 units SC ACHS [facility] PRN Reason: Protocol Last Admin: 09/03/17 21:39 Dose: Not Given Isosorbide Mononitrate (Imdur Er) 30 mg PO DAILY [facility] Last Admin: 09/03/17 09:03 Dose: Not Given Levothyroxine Sodium (Synthroid) 50 mcg PO ACB [facility] Last Admin: 09/03/17 09:00 Dose: 50 mcg Metoprolol Tartrate (Lopressor) 25 mg PO 0800,1800 [facility] Last Admin: 09/03/17 17:20 Dose: 25 mg Pantoprazole Sodium (Protonix Ec Tab) 40 mg PO ACB [facility] Last Admin: 09/03/17 09:00 Dose: 40 mg Polyethylene Glycol (Miralax) 17 gm PO BID [facility] Last Admin: 09/03/17 17:20 Dose: 17 gm - Labs Labs: 09/04/17 06:00 09/03/17 10:37 PT 15.7 SECONDS (9.4-12.5) H 08/25/17 13:17 INR 1.36 (0.93-1.08) H 18 13:17 APTT 29.4 Seconds (25.1-36.5) 08/25/17 13:17 - Additional Findings Additional findings: - Constitutional Appears: Non-toxic, No Acute Distress, Chronically Ill - Head Exam Head Exam: NORMAL INSPECTION - Eye Exam Eye Exam: Normal appearance - ENT Exam ENT Exam: Mucous Membranes Moist - Respiratory Exam Respiratory Exam: NORMAL BREATHING PATTERN - Cardiovascular Exam Cardiovascular Exam: +S1, +S2 - GI/Abdominal Exam GI & Abdominal Exam: Soft. absent: Tenderness - Extremities Exam Extremities Exam: Normal Inspection - Neurological Exam Neurological Exam: Alert, Awake - Skin Additional comments: Left groin with abscess s/p I&D; dressing changed; no bleeding; mild erythema and scant drainage Assessment and Plan - Assessment and Plan (Free Text) Assessment: 82 yo F with left perineal abscess s/p bedside I&D on 09/02/17 Plan: -- Packing trimmed; Dressing changed; scant purulent drainage -- Wound culture pending -- No further surgical intervention indicated at this time; wound is draining appropriately; no signs of systemic infection; may be discharged from surgical standpoint if PO antibiotics are appropriate -- f/u ID recs -- Will continue to follow while in house Further recs per Dr. Warren Yang PGY1
[2017-09-04 07:42] LABS: ALB/GLOB RATIO 0.7 (1.1-1.8); ALBUMIN 2.9 g/dL (3.0-4.8); CALCIUM 7.9 mg/dL (8.4-10.5)
[2017-09-04] MEDS: Pantoprazole 40 mg EC Tab PO SCH (08:26)
[2017-09-04] MEDS: Levothyroxine 50 MCG TAB PO SCH (08:26)
[2017-09-04] MEDS: Insulin Reg-LOW-Coverage SC SCH ×4 (08:34→21:41)
--- NOTE | 2017-09-04 08:59 | PN ---
DATE: 09/03/2017 SUBJECTIVE: The patient is resting in bed this morning. She is on dialysis. She states that she is having some discomfort in the groin area where she recently had a wound I&D. PHYSICAL EXAMINATION: VITAL SIGNS: Her temp is 98.3, her blood pressure is 145/58, oxygen saturation is 98% on room air, respiratory rate is 18, pulse is 65. GENERAL: She is alert and oriented x3. LUNGS: Show diminished breath sounds. HEART: An S1 and S2 rhythm. ABDOMEN: Soft with positive bowel sounds. EXTREMITIES: Show no evidence of edema. ASSESSMENT AND PLAN: 1. Currently, the patient is on a sliding insulin scale for a diabetes, Imdur 30 mg daily, Lopressor 25 mg b.i.d., MiraLax 17 b.i.d., Protonix 40 mg daily and Synthroid 50 mcg daily. A request has been made for Infectious Disease regarding the perineal wound. Surgery has incised and drained the wound site. States that they are waiting for culture results. 2. We will check the patient's lab work. 3. Continue dialysis. 4. She continues to be evaluated by Nephrology for her chronic renal disease, on dialysis 4 times a week. She has [id number]-[id number] diabetes, hypothyroid disease, gallstones, chronic anemia, atherosclerotic heart disease, carotid disease, hyperlipidemia. Shavonne Ascencio MD
[2017-09-04] MEDS ORDERED: Oxycodone/Acetaminophen 5/325 mg Tab PO PRN (09:59)
[2017-09-04] MEDS: POLYETHYLENE GLYCOL 3350 17 GM/Dose PACKET PO SCH ×3 (10:28→18:07)
[2017-09-04] MEDS: Bacitracin 500 Units/gm Oint Foilpak UD TOP SCH ×2 (10:28→17:46)
--- NOTE | 2017-09-04 12:47 | CP.PCM.PN ---
Subjective - Date & Time of Evaluation Date of Evaluation: 09/04/17 Time of Evaluation: 10:25 - Subjective Subjective: Seen and examined at the bedside earlier today, chart was reviewed. Patient denies nausea, vomiting, or abdominal pain she is having bowel movements no reports of diarrhea or bleeding. Complains of ongoing pain from I&D. No acute overnight events reported. Objective - Vital Signs/Intake and Output Vital Signs (last 24 hours): Temp Pulse Resp BP Pulse Ox 99.4 F 71 20 140/53 L 100 09/04/17 07:58 09/04/17 10:28 09/04/17 07:58 09/04/17 10:28 09/04/17 07:58 Intake and Output: 09/04/17 09/04/17 06:59 18:59 Intake Total 360 Balance 360 - Medications Medications: Current Medications Acetaminophen (Tylenol 325mg Tab) 650 mg PO Q6H PRN PRN Reason: Pain, moderate (4-7) Aspirin (Aspirin Chewable) 81 mg PO DAILY [facility] Last Admin: 09/04/17 10:28 Dose: 81 mg Bacitracin (Bacitracin) 2 ea TOP BID [facility] Last Admin: 09/04/17 10:28 Dose: 2 ea Meropenem 250 mg/ Sodium (Chloride) 100 mls @ 100 mls/hr IVPB Q12H [facility] PRN Reason: Protocol Stop: 09/10/17 10:46 Last Admin: 09/04/17 10:28 Dose: 100 mls/hr Insulin Human Regular (Humulin R Low) 0 units SC ACHS [facility] PRN Reason: Protocol Last Admin: 09/04/17 12:29 Dose: 1 units Isosorbide Mononitrate (Imdur Er) 30 mg PO DAILY [facility] Last Admin: 09/04/17 10:28 Dose: 30 mg Levothyroxine Sodium (Synthroid) 50 mcg PO ACB [facility] Last Admin: 09/04/17 08:26 Dose: 50 mcg Metoprolol Tartrate (Lopressor) 25 mg PO 0800,1800 [facility] Last Admin: 09/04/17 10:28 Dose: Not Given Oxycodone/Acetaminophen (Percocet 5/325 Mg Tab) 1 tab PO Q8H PRN PRN Reason: Pain, severe (8-10) Stop: 09/07/17 10:00 Last Admin: 09/04/17 12:33 Dose: 1 tab Pantoprazole Sodium (Protonix Ec Tab) 40 mg PO ACB [facility] Last Admin: 09/04/17 08:26 Dose: 40 mg Polyethylene Glycol (Miralax) 17 gm PO BID [facility] Last Admin: 09/04/17 10:28 Dose: 17 gm - Labs Labs: 09/04/17 06:00 09/04/17 07:10 PT 15.7 SECONDS (9.4-12.5) H 08/25/17 13:17 INR 1.36 (0.93-1.08) H 08/25/17 13:17 APTT 29.4 Seconds (25.1-36.5) 08/25/17 13:17 - Constitutional Appears: No Acute Distress - Head Exam Head Exam: NORMOCEPHALIC - Eye Exam Eye Exam: Normal appearance. absent: Scleral icterus - ENT Exam ENT Exam: Mucous Membranes Moist - Respiratory Exam Respiratory Exam: NORMAL BREATHING PATTERN. absent: Respiratory Distress - Cardiovascular Exam Cardiovascular Exam: +S1, +S2 - GI/Abdominal Exam GI & Abdominal Exam: Soft, Normal Bowel Sounds. absent: Guarding, Tenderness, Rebound - Extremities Exam Extremities Exam: absent: Calf Tenderness, Pedal Edema - Neurological Exam Neurological Exam: Alert, Awake, Oriented x3 - Skin Skin Exam: Dry, Warm Assessment and Plan - Assessment and Plan (Free Text) Assessment: ASSESSMENT: RUQ abdominal pain, differential Biliary colic Cholelithiasis w/ sludge, CBD 6.3 mm on abdominal US s/p I&D of groin abcess Constipation ESRD on hemodialysis DM H/O of recurrent diverticulitis PLAN continue diet as tolerated Continue MiraLAX twice a day, hold for stools >2/day continue PPI on Aspirin on IV antibiotics culture of abscess: (+) gram (+) cocci/(+) gram negative larisa Seen and discussed w/ Dr. Theodore.
--- NOTE | 2017-09-04 14:39 | PN ---
DATE: 09/04/2017 SUBJECTIVE: The patient is currently seen on 3R. She appears to be comfortable, lying supine in bed. She continues to receive IV antibiotic therapy for gram-negative rods and gram-positive cocci, which are currently growing out of the left medial thigh groin area abscess, which was incised and drained. MEDICATIONS: Medication list reviewed. The patient is currently on aspirin, bacitracin, insulin, Imdur, Lopressor, meropenem, MiraLax, Percocet p.r.n., Protonix, Synthroid and Tylenol p.r.n. OBJECTIVE: INTAKE/OUTPUT: Intake 840, output hemodialysis. VITAL SIGNS: Blood pressure 140/53, temperature 99.4, respiratory rate is 20 with a pulse of 71. HEENT: Shows her to be normocephalic, atraumatic. Conjunctivae are pale. Sclerae are nonicteric. NECK: Supple. No neck vein distention. CHEST: Clear to auscultation and percussion. No rales, rhonchi or wheezing. CARDIOVASCULAR: Regular rate and rhythm with MR/TR. Distal lower extremity pulses are 1 to 2+ bilaterally. Left upper extremity AV fistula. ABDOMEN: Soft. Bowel sounds normal. No rebound, guarding or masses. EXTREMITIES: No lower extremity edema. Positive dressing over the incision and drainage site in the left groin area. LABORATORY DATA AND IMAGING: White blood cell count 8.7, hemoglobin 10.1, platelet count is 98,000. Chemistries: Electrolytes are normal. BUN 23 with a creatinine of 3.7. This was post dialysis. Glucose is 120. Calcium 7.9. Yesterday's phosphorus 4.9 with a magnesium level of 1.7. Bilirubin today is 0.9. Normal liver enzymes. Albumin is 2.9. Microbiology: Abscess cultures empiric report positive for gram-negative rods and gram-positive cocci. ASSESSMENT: 1. Left groin medial upper thigh abscess, status post incision and drainage. Cultures are positive for gram-negative rods and gram-positive cocci. The patient remains on empiric IV antibiotic therapy pending cultures. The patient is being followed by Dr. Kelley, her surgeon. 2. History of end-stage renal disease. The patient will continue routine dialysis. She dialyzes four times a week. Sunday, Sunday, Sunday plus Sunday. 3. History of owz-fqtuxmk-dffniutts diabetes mellitus. Continue present medications. 4. Hypertension. Blood pressure controlled on present medical therapy. The patient is on beta-leandro therapy alone. 5. History of anemia secondary to chronic kidney disease. The patient will continue Aranesp and iron per protocol. 6. History of secondary hyperparathyroidism. The patient's last phosphorus level was mildly elevated at 4.9. The patient will be started back on binder therapy. She had been taking PhosLo 667 mg three times a day with meals. 7. Hypothyroidism. The patient will continue thyroid replacement therapy. PLAN: 1. Continue dialysis as per her outpatient protocol. 2. Continue to monitor laboratory work with dialysis. 3. Agree with ID evaluation. Perhaps switch over to oral antibiotic therapy once we know what the exact sensitivities and isolation of bacteria are. 4. Continue renal diet. 5. Continue Aranesp and iron per protocol on dialysis. Buck Yanes MD
[2017-09-04] MEDS ORDERED: Vancomycin 1gm in NS 250ml 1 GM/250 ML BAG IVPB STA (15:02)
--- NOTE | 2017-09-04 15:28 | PN ---
DATE: 09/04/2017 SUBJECTIVE: The patient is in bed, in no acute distress, nontoxic. PHYSICAL EXAMINATION: VITAL SIGNS: Temperature is 99, blood pressure is 140/53, respiratory rate of 20, heart rate of 71. HEENT: Examination of HEENT is unremarkable. NECK: Supple. LUNGS: Have decreased breath sounds. HEART: Normal S1, S2. ABDOMEN: Soft. LABORATORY DATA: Laboratory examination reveals a white count of 8.7, hemoglobin of 10 and platelets of 98. Coagulation is noted. Chemistries reveals a BUN of 23, creatinine of 3.7. Microbiology reveals the patient has gram-positive cocci and a gram-negative larisa from the abscess. C. diff antigen is negative antigen, negative toxin. MEDICATIONS: Review of medications reveals the patient is on intermittent vancomycin and meropenem. ASSESSMENT AND PLAN: An 82-year-old female with left perineal, actually inner thigh abscess, has as a packing with mild erythema around it, status post incision and drainage, postprocedure day #2 with a gram-positive cocci and gram-negative larisa with a history of sepsis with Escherichia coli bacteremia as well as a left upper lobe healthcare-associated pneumonia and history of vancomycin-resistant Enterococcus in the urine and severe sepsis and hypertension, diabetes, coronary artery disease, end-stage renal disease, on hemodialysis. We will give another dose of vancomycin. Continue meropenem pending identification and sensitivity of the gram-negative larisa and the gram-positive cocci and we will make further recommendations. Long-term prognosis is quite poor for this patient with so many comorbidities. Jeromy Castellanos MD
--- NOTE | 2017-09-04 15:50 | PN ---
DATE: 09/04/2017 SUBJECTIVE: The patient is lying in bed this morning. She states that she is having some discomfort over the left groin where she had an abscess I&D'ed. PHYSICAL EXAMINATION VITAL SIGNS: This morning, she has a temperature of 99.4, her pulse is 71, blood pressure is 140/53, her respiratory rate is 20, oxygen saturation is 98% reported on room air. GENERAL: The patient is alert and oriented x3. LUNGS: Have diminished breath sounds at the bases. HEART: S1 and S2 with a grade II/ systolic murmur. ABDOMEN: Soft with positive bowel sounds. EXTREMITIES: No evidence of edema. The surgical site appears to be dry. LABORATORY DATA: Shows a sodium of 138, potassium 4.7, chloride 94, BUN is 23, creatinine is 3.7, the random blood sugar is 120. LFTs are normal. CBC: WBC is now 8.7, it was 15.2; hemoglobin is 10.1; hematocrit is 32.3; platelet count is 98,000. Microbiological studies, C. diff studies have been negative. Culture from the wound site is growing gram-negative rods and gram-positive cocci. Identification and sensitivity are pending. IMPRESSION AND PLAN: 1. Status post left perineal abscess drainage, currently on meropenem. She received one dose of vancomycin. We will await identification and sensitivity of the culture. She is being followed by Infectious Disease and Surgery. 2. Chronic renal failure. 3. Chronic anemia. 4. Low platelet count. 5. Hyperlipidemia. 6. Non-insulin dependent diabetes. 7. Atherosclerotic heart disease. 8. History of ischemic heart disease and myocardial infarctions. Currently, the patient is on Ecotrin, bacitracin, Humulin sliding scale, Imdur, Lopressor, meropenem, MiraLax, Protonix and Synthroid. She is being followed by GI for her history of abdominal pain and gallstone disease. She is on Synthroid replacement therapy and GI prophylaxis with Protonix. Physical therapy has been requested. Continue current level of care at this time. She continues to be followed by Nephrology for her chronic renal disease as well. Shavonne Ascencio MD [facility] # [id number]
[2017-09-05 07:40] VITALS: O2SAT 100
[2017-09-05] MEDS: Insulin Reg-LOW-Coverage SC SCH ×4 (08:25→21:41)
[2017-09-05] MEDS: Pantoprazole 40 mg EC Tab PO SCH (08:26)
[2017-09-05] MEDS: Levothyroxine 50 MCG TAB PO SCH (08:26)
[2017-09-05] MEDS: POLYETHYLENE GLYCOL 3350 17 GM/Dose PACKET PO SCH ×2 (09:59→17:35)
[2017-09-05] MEDS: Bacitracin 500 Units/gm Oint Foilpak UD TOP SCH ×2 (11:00→17:35)
--- NOTE | 2017-09-05 13:08 | PN ---
DATE: 09/05/2017 SUBJECTIVE: The patient is in bed, in no acute distress, nontoxic. PHYSICAL EXAMINATION: VITAL SIGNS: Temperature is 98, blood pressure is 138/60, respiratory rate of 18, heart rate of 72. HEENT: Examination of HEENT is unremarkable. NECK: Supple. LUNGS: Have decreased breath sounds. HEART: Normal S1 and S2. ABDOMEN: Soft, nontender. LABORATORY DATA: Laboratory examination reveals white count is 8.7, hemoglobin of 10 and platelets of 98, BUN of 23, creatinine of 3.7. Microbiology reveals a gram-negative larisa and a gram positive cocci. Further identification and sensitivity are pending. The blood culture has been negative. Review of orders revealed the patient to be on meropenem and a dose of vancomycin was given. ASSESSMENT AND PLAN: An 82-year-old female with left perineal inner thigh abscess, now with a packing and status post incision and drainage, postprocedure day #3. Waiting for identification of the organism. The patient with a history of sepsis, Escherichia coli bacteremia, left upper lobe healthcare-associated pneumonia, history of vancomycin-resistant Enterococcus in the urine, history of severe sepsis, hypertension, diabetes, coronary artery disease, end-stage renal disease, on hemodialysis. Currently on intermittent vancomycin, on meropenem. Waiting further identification. Maybe we have to switch to p.o. antibiotics pending identification and sensitivity. Jeromy Castellanos MD
--- NOTE | 2017-09-05 13:50 | CP.PCM.PN ---
<Dona Stanton - Last Filed: 09/05/17 15:37> Subjective - Date & Time of Evaluation Date of Evaluation: 09/05/17 Time of Evaluation: 13:00 - Subjective Subjective: PGY-[address] Theodore's service Patient seen and examined at the bedside. chart review, no acute distress. Patient denies abdominal discomfort. She is eating lunch comfortably. No nausea , vomiting. No reports of overt GI bleeding. Objective - Vital Signs/Intake and Output Vital Signs (last 24 hours): Temp Pulse Resp BP Pulse Ox 98.1 F 72 18 138/64 100 09/05/17 06:00 09/05/17 06:00 09/05/17 06:00 09/05/17 06:00 09/05/17 06:00 Intake and Output: 09/05/17 09/05/17 06:59 18:59 Intake Total 440 Output Total 0 Balance 440 - Medications Medications: Current Medications Acetaminophen (Tylenol 325mg Tab) 650 mg PO Q6H PRN PRN Reason: Pain, moderate (4-7) Aspirin (Aspirin Chewable) 81 mg PO DAILY [facility] Last Admin: 09/05/17 11:00 Dose: 81 mg Bacitracin (Bacitracin) 2 ea TOP BID [facility] Last Admin: 09/05/17 11:00 Dose: 2 ea Calcium Acetate (Phoslo) 667 mg PO WM [facility] Last Admin: 09/05/17 11:00 Dose: 667 mg Meropenem 250 mg/ Sodium (Chloride) 100 mls @ 100 mls/hr IVPB Q12H [facility] PRN Reason: Protocol Stop: 09/10/17 10:46 Last Admin: 09/05/17 11:00 Dose: 100 mls/hr Insulin Human Regular (Humulin R Low) 0 units SC ACHS [facility] PRN Reason: Protocol Last Admin: 09/05/17 08:25 Dose: Not Given Isosorbide Mononitrate (Imdur Er) 30 mg PO DAILY [facility] Last Admin: 09/05/17 11:00 Dose: 30 mg Levothyroxine Sodium (Synthroid) 50 mcg PO ACB [facility] Last Admin: 09/05/17 08:26 Dose: 50 mcg Metoprolol Tartrate (Lopressor) 25 mg PO 0800,1800 [facility] Last Admin: 09/05/17 08:49 Dose: Not Given Oxycodone/Acetaminophen (Percocet 5/325 Mg Tab) 1 tab PO Q8H PRN PRN Reason: Pain, severe (8-10) Stop: 09/07/17 10:00 Last Admin: 09/04/17 12:33 Dose: 1 tab Pantoprazole Sodium (Protonix Ec Tab) 40 mg PO ACB [facility] Last Admin: 09/05/17 08:26 Dose: 40 mg Polyethylene Glycol (Miralax) 17 gm PO BID [facility] Last Admin: 09/05/17 09:59 Dose: Not Given - Labs Labs: 09/04/17 06:00 09/04/17 07:10 PT 15.7 SECONDS (9.4-12.5) H 08/25/17 13:17 INR 1.36 (0.93-1.08) H 08/25/17 13:17 APTT 29.4 Seconds (25.1-36.5) 08/25/17 13:17 - Constitutional Appears: Well, No Acute Distress - Head Exam Head Exam: ATRAUMATIC, NORMOCEPHALIC - Eye Exam Eye Exam: EOMI, Normal appearance - ENT Exam ENT Exam: Mucous Membranes Moist - Respiratory Exam Respiratory Exam: Clear to Ausculation Bilateral, NORMAL BREATHING PATTERN. absent: Rhonchi, Wheezes, Respiratory Distress - Cardiovascular Exam Cardiovascular Exam: REGULAR RHYTHM. absent: Bradycardia, Tachycardia, Murmur - GI/Abdominal Exam GI & Abdominal Exam: Soft, Normal Bowel Sounds. absent: Distended, Firm, Guarding, Tenderness - Extremities Exam Extremities Exam: Normal Inspection. absent: Pedal Edema, Tenderness - Neurological Exam Neurological Exam: Alert, Awake - Skin Skin Exam: Dry, Intact, Normal Color, Warm Assessment and Plan - Assessment and Plan (Free Text) Assessment: RUQ abdominal pain, differential Biliary colic Cholelithiasis w/ sludge, CBD 6.3 mm on abdominal US s/p I&D of groin abscess Constipation ESRD on hemodialysis DM H/O of recurrent diverticulitis Plan: continue diet as tolerated Continue MiraLAX twice a day, hold for stools >2/day continue PPI on Aspirin on IV antibiotics culture of abscess: klebsiella pneumoniae and MRSA on contact precaution case discussed w/ Dr. Theodore. <Ysabel Theodore V - Last Filed: 09/05/17 23:33> Objective - Vital Signs/Intake and Output Vital Signs (last 24 hours): Temp Pulse Resp BP Pulse Ox 98.1 F 72 18 138/64 100 09/05/17 06:00 09/05/17 06:00 09/05/17 06:00 09/05/17 06:00 09/05/17 06:00 Intake and Output: 09/05/17 09/06/17 18:59 06:59 Intake Total 480 240 Output Total 100 0 Balance 380 240 - Medications Medications: Current Medications Acetaminophen (Tylenol 325mg Tab) 650 mg PO Q6H PRN PRN Reason: Pain, moderate (4-7) Aspirin (Aspirin Chewable) 81 mg PO DAILY [facility] Last Admin: 09/05/17 11:00 Dose: 81 mg Bacitracin (Bacitracin) 2 ea TOP BID [facility] Last Admin: 09/05/17 17:35 Dose: Not Given Calcium Acetate (Phoslo) 667 mg PO WM [facility] Last Admin: 09/05/17 16:48 Dose: Not Given Meropenem 250 mg/ Sodium (Chloride) 100 mls @ 100 mls/hr IVPB Q12H [facility] PRN Reason: Protocol Stop: 09/10/17 10:46 Last Admin: 09/05/17 21:45 Dose: 100 mls/hr Insulin Human Regular (Humulin R Low) 0 units SC ACHS [facility] PRN Reason: Protocol Last Admin: 09/05/17 21:41 Dose: Not Given Isosorbide Mononitrate (Imdur Er) 30 mg PO DAILY [facility] Last Admin: 09/05/17 11:00 Dose: 30 mg Levothyroxine Sodium (Synthroid) 50 mcg PO ACB [facility] Last Admin: 09/05/17 08:26 Dose: 50 mcg Metoprolol Tartrate (Lopressor) 25 mg PO 0800,1800 [facility] Last Admin: 09/05/17 17:35 Dose: Not Given Oxycodone/Acetaminophen (Percocet 5/325 Mg Tab) 1 tab PO Q8H PRN PRN Reason: Pain, severe (8-10) Stop: 09/07/17 10:00 Last Admin: 09/04/17 12:33 Dose: 1 tab Pantoprazole Sodium (Protonix Ec Tab) 40 mg PO ACB [facility] Last Admin: 09/05/17 08:26 Dose: 40 mg Polyethylene Glycol (Miralax) 17 gm PO BID [facility] Last Admin: 09/05/17 17:35 Dose: Not Given - Labs Labs: 09/05/17 14:20 09/05/17 15:00 PT 15.7 SECONDS (9.4-12.5) H 08/25/17 13:17 INR 1.36 (0.93-1.08) H 08/25/17 13:17 APTT 29.4 Seconds (25.1-36.5) 08/25/17 13:17 Attending/Attestation - Attestation I have personally seen and examined this patient.: Yes I have fully participated in the care of the patient.: Yes I have reviewed all pertinent clinical information, including history, physical exam and plan: Yes Notes (Text): This is an addendum to GI progress report dictated by the Risk Compliance Manager.The patient was seen and examined earlier. Medical records, lab studies, imagings were reviewed. Last 24 hours events reviewed. Agreed with the above treatment plan as outlined in Risk Compliance Manager 's notes the with the addition of the following 09/05/17 23:32
[2017-09-05 15:30] LABS: EOS % 0.4 % (1.5-5.0); GRAN # 4.32 (1.4-6.5); GRAN % 79.3 % (50.0-68.0); HEMOGLOBIN 8.7 g/dL (12.0-16.0); LYMPH # 0.8 (1.2-3.4); LYMPH % 15.3 % (22.0-35.0); MEAN CELL VOLUME 95.2 fl (80.0-105.0); MEAN CORPUSCULAR HGB CONC 31.5 g/dl (31.0-37.0); MEAN PLATELET VOLUME 9.5 fl (7.0-11.0); MONO # 0.3 (0.1-0.6); RBC 2.9 10^6/uL (3.5-6.1); RED CELL DISTRIBUTION WIDTH 19.9 % (11.5-14.5); WHITE BLOOD COUNT 5.4 10^3/ul (4.5-11.0)
[2017-09-05] MEDS ORDERED: Darbepoetin Alfa 100 mcg/ml Inj IVP ONE (15:49)
[2017-09-05 16:00] LABS: ALB/GLOB RATIO 0.7 (1.1-1.8); ALBUMIN 2.8 g/dL (3.0-4.8); CALCIUM 7.7 mg/dL (8.4-10.5)
--- NOTE | 2017-09-05 19:11 | PN ---
DATE: 09/05/2017 SUBJECTIVE: Patient is seen sitting in bed. She is awake, she is alert. She reports, she is not feeling well. She has no appetite. She ate breakfast, but did not want to eat lunch. PHYSICAL EXAMINATION: GENERAL: Elderly lady sitting in bed. VITAL SIGNS: Blood pressure 138/64, heart rate 72, respiratory rate 18, temperature 98.1. HEENT: Normocephalic, atraumatic, positive pallor. NECK: Supple, no JVD. LUNGS: Bilateral equal air entry, no rales. EXTREMITIES: No lower extremity edema. LABORATORY DATA: WBC 5.4, hemoglobin 8.7, hematocrit 27.6, platelets 87. Sodium 131, potassium 4.4, chloride 93, CO2 of 27, BUN 29, creatinine 3.8, glucose 151, calcium 7.7, phosphorus 2.8, magnesium 1.8. Albumin 2.8. Corrected calcium is 8.6. ASSESSMENT: 1. Chronically ill. 2. Abdominal pain. 3. Perineal abscess status post drainage. 4. Noninsulin-dependent diabetes mellitus. 5. Hypertension. 6. Paroxysmal atrial fibrillation. 7. Coronary artery disease. 8. End-stage renal disease. 9. Anemia, hemoglobin has dropped from 10 to 8.7 in one day. PLAN: 1. Monitor H&H. 2. Treat constipation. 3. Push p.o. intake. 4. Stable dialysis today. Barbi Linares MD
--- NOTE | 2017-09-05 21:53 | PN ---
DATE: 09/05/2017 SUBJECTIVE: This is an 82-year-old female resting in bed this morning. Patient is status post day 3 of I and D of left perineal wound. Currently being followed by Surgery. PHYSICAL EXAMINATION: VITAL SIGNS: Temperature is 98.1, pulse is 72, blood pressure is 138/64, oxygen saturation is 97% on room air and respiratory rate is 18. LUNGS: Have diminished breath sounds at the bases. HEART: Is in S1 and S2 rhythm. ABDOMEN: Soft with positive bowel sounds. EXTREMITIES: No evidence of edema. LABORATORY DATA: Shows a WBC of 5.4, RBC 2.9, hemoglobin 8.7, hematocrit 27.6, platelet count is now 87,000. Chemistry shows the sodium 131, potassium 4.4, chloride 93, BUN is 29, creatinine is 3.8. ASSESSMENT AND PLAN: 1. Today cultures of the abscess in the left perineal area are growing Klebsiella and methicillin-resistant Staphylococcus aureus. Patient is receiving meropenem and intermittent vancomycin and followed by Infectious Disease. 2. Patient has a low platelet count. We will review medication/antibiotics and follow up the CBC and platelet count. 3. On chronic dialysis. 4. History of diverticulosis, diverticulitis, gallstones, cholecystitis. 5. History of ischemic heart disease, myocardial infarction. We will continue current medical management. Follow up the patient's labs and review treatment plan with the consultants. Shavonne Ascencio MD
[2017-09-06 06:28] LABS: EOS # 0.1 (0.0-0.7); EOS % 0.7 % (1.5-5.0); GRAN # 5.47 (1.4-6.5); GRAN % 78.3 % (50.0-68.0); HEMOGLOBIN 9.7 g/dL (12.0-16.0); MEAN CORPUSCULAR HEMOGLOBIN 30.9 pg (25.0-35.0); MEAN CORPUSCULAR HGB CONC 31.4 g/dl (31.0-37.0); MEAN PLATELET VOLUME 9.5 fl (7.0-11.0); MONO # 0.5 (0.1-0.6); RBC 3.14 10^6/uL (3.5-6.1); RED CELL DISTRIBUTION WIDTH 20.3 % (11.5-14.5)
[2017-09-06] MEDS: Pantoprazole 40 mg EC Tab PO SCH (06:30)
[2017-09-06] MEDS: Levothyroxine 50 MCG TAB PO SCH (06:30)
[2017-09-06 07:10] LABS: MEAN CELL VOLUME 98.4 fl (80.0-105.0)
[2017-09-06] MEDS: Insulin Reg-LOW-Coverage SC SCH ×2 (07:27→11:59)
[2017-09-06 07:37] VITALS: BP 144/60; PULSE 89; RESP 21; TEMP 98
[2017-09-06] MEDS: POLYETHYLENE GLYCOL 3350 17 GM/Dose PACKET PO SCH (09:58)
[2017-09-06] MEDS: Bacitracin 500 Units/gm Oint Foilpak UD TOP SCH (10:49)
--- NOTE | 2017-09-06 11:21 | CP.PCM.PN ---
<Dona Stanton - Last Filed: 09/06/17 11:20> Subjective - Date & Time of Evaluation Date of Evaluation: 09/06/17 Time of Evaluation: 10:00 - Subjective Subjective: PGY-[address] Theodore's service Patient seen and examined at the bedside. chart review, no acute distress. Patient denies abdominal discomfort. She is eating well, no complaint. No nausea , vomiting. No reports of overt GI bleeding. Objective - Vital Signs/Intake and Output Vital Signs (last 24 hours): Temp Pulse Resp BP Pulse Ox 98 F 89 21 144/60 100 09/06/17 07:36 09/06/17 07:36 09/06/17 07:36 09/06/17 07:36 09/06/17 07:36 Intake and Output: 09/06/17 09/06/17 06:59 18:59 Intake Total 480 Output Total 0 Balance 480 - Medications Medications: Current Medications Acetaminophen (Tylenol 325mg Tab) 650 mg PO Q6H PRN PRN Reason: Pain, moderate (4-7) Aspirin (Aspirin Chewable) 81 mg PO DAILY [facility] Last Admin: 09/06/17 10:49 Dose: 81 mg Bacitracin (Bacitracin) 2 ea TOP BID [facility] Last Admin: 09/06/17 10:49 Dose: 2 ea Calcium Acetate (Phoslo) 667 mg PO WM [facility] Last Admin: 09/06/17 09:00 Dose: 667 mg Meropenem 250 mg/ Sodium (Chloride) 100 mls @ 100 mls/hr IVPB Q12H [facility] PRN Reason: Protocol Stop: 09/10/17 10:46 Last Admin: 09/06/17 10:50 Dose: 100 mls/hr Insulin Human Regular (Humulin R Low) 0 units SC ACHS [facility] PRN Reason: Protocol Last Admin: 09/06/17 07:27 Dose: Not Given Isosorbide Mononitrate (Imdur Er) 30 mg PO DAILY [facility] Last Admin: 09/06/17 10:49 Dose: 30 mg Levothyroxine Sodium (Synthroid) 50 mcg PO ACB [facility] Last Admin: 09/06/17 06:30 Dose: 50 mcg Metoprolol Tartrate (Lopressor) 25 mg PO 0800,1800 [facility] Last Admin: 05/24/18 07:28 Dose: Not Given Oxycodone/Acetaminophen (Percocet 5/325 Mg Tab) 1 tab PO Q8H PRN PRN Reason: Pain, severe (8-10) Stop: 09/07/17 10:00 Last Admin: 09/04/17 12:33 Dose: 1 tab Pantoprazole Sodium (Protonix Ec Tab) 40 mg PO ACB [facility] Last Admin: 09/06/17 06:30 Dose: 40 mg Polyethylene Glycol (Miralax) 17 gm PO BID [facility] Last Admin: 09/06/17 09:58 Dose: Not Given - Labs Labs: 09/06/17 05:30 09/06/17 05:30 PT 15.7 SECONDS (9.4-12.5) H 08/25/17 13:17 INR 1.36 (0.93-1.08) H 08/25/17 13:17 APTT 29.4 Seconds (25.1-36.5) 08/25/17 13:17 - Constitutional Appears: No Acute Distress - Head Exam Head Exam: ATRAUMATIC, NORMAL INSPECTION, NORMOCEPHALIC - Eye Exam Eye Exam: EOMI, Normal appearance - ENT Exam ENT Exam: Mucous Membranes Moist - Respiratory Exam Respiratory Exam: Clear to Ausculation Bilateral, NORMAL BREATHING PATTERN. absent: Rhonchi, Wheezes, Respiratory Distress - Cardiovascular Exam Cardiovascular Exam: REGULAR RHYTHM. absent: Bradycardia, Tachycardia, Murmur - GI/Abdominal Exam GI & Abdominal Exam: Soft, Normal Bowel Sounds. absent: Distended, Firm, Guarding, Tenderness - Extremities Exam Extremities Exam: Normal Inspection. absent: Pedal Edema, Tenderness - Neurological Exam Neurological Exam: Alert, Awake - Skin Skin Exam: Dry, Intact, Normal Color, Warm Assessment and Plan - Assessment and Plan (Free Text) Assessment: 82 female with PMH of hx C diff, ESRD on HD, COPD, CHF, dizziness, anemia, GERD , diverticulitis, h/o falls, anxiety, depression, cholelithiasis, PR, hypothyroidism consulted for abd pain. RUQ abdominal pain, differential Biliary colic Cholelithiasis w/ sludge, CBD 6.3 mm on abdominal US s/p I&D of groin abscess Constipation ESRD on hemodialysis DM H/O of recurrent diverticulitis Plan: continue diet, patient is tolerated Continue MiraLAX twice a day, hold for stools >2/day continue PPI on Aspirin cont antibiotics per ID culture of abscess: klebsiella pneumoniae and MRSA Seen and discussed with Dr. Theodore. <Ysabel Theodore V - Last Filed: 09/06/17 22:58> Objective - Vital Signs/Intake and Output Vital Signs (last 24 hours): Temp Pulse Resp BP Pulse Ox 98 F 89 21 144/60 100 09/06/17 07:36 09/06/17 07:36 09/06/17 07:36 09/06/17 07:36 09/06/17 07:36 Intake and Output: 09/06/17 09/07/17 18:59 06:59 Intake Total 600 Output Total 0 Balance 600 - Labs Labs: 09/06/17 05:30 09/06/17 05:30 PT 15.7 SECONDS (9.4-12.5) H 08/25/17 13:17 INR 1.36 (0.93-1.08) H 08/25/17 13:17 APTT 29.4 Seconds (25.1-36.5) 08/25/17 13:17 Attending/Attestation - Attestation I have personally seen and examined this patient.: Yes I have fully participated in the care of the patient.: Yes I have reviewed all pertinent clinical information, including history, physical exam and plan: Yes Notes (Text): This is an addendum to GI progress report dictated by the [employer] Supervisor.The patient was seen and examined earlier. Medical records, lab studies, imagings were reviewed. Last 24 hours events reviewed. Agreed with the above treatment plan as outlined in [employer] Supervisor 's notes the with the addition of the following 09/06/17 22:58
--- NOTE | 2017-09-06 17:34 | PN ---
DATE: 09/06/2017 SUBJECTIVE: The patient is seen, sitting in bed. She is eating lunch. She has family members at her bedside. PHYSICAL EXAMINATION: GENERAL: Elderly lady, sitting in bed. VITAL SIGNS: Blood pressure 144/60, heart rate 89, respiratory rate 21, temperature 98. NECK: Supple, no JVD. EXTREMITIES: No lower extremity edema. LABORATORY DATA: WBC 7, hemoglobin 9.7, hematocrit 30.9, and platelets 95. Sodium 136, potassium 4.2, chloride 93, CO2 of 33. BUN 20, creatinine 2.9. Glucose 125. Calcium 8. The culture from the abscess showing Klebsiella and MRSA. CURRENT MEDICATIONS: Aspirin, bacitracin, insulin, Imdur, Lopressor 25 b.i.d., meropenem 250 every 12 hours, MiraLax, Percocet, PhosLo, Protonix, Synthroid, Tylenol. ASSESSMENT: 1. Abdominal pain secondary to constipation. 2. History of recurrent diverticulitis. 3. Perineal abscess. 4. Rjb-dijtskt-cpiuuypsg diabetes mellitus. 5. Hypertension. 6. Coronary artery disease/paroxysmal atrial fibrillation. 7. End-stage renal disease. 8. Anemia of chronic kidney disease. PLAN: 1. Stable dialysis yesterday. 2. Continue antibiotics for perineal abscess. 3. Continue bowel regimen for constipation. 4. Continue antihypertensives. Barbi Linares MD
--- NOTE | 2017-09-06 23:26 | PN ---
DATE: 09/06/2017 SUBJECTIVE: Patient is seen earlier this morning in room 364, bed 1. Overall, patient is weak. No fevers, no chills. PHYSICAL EXAMINATION: VITAL SIGNS: Temperature is 98, blood pressure 140/60, respiratory rate of 21, heart rate of 89. HEENT: Unremarkable. NECK: Supple. LUNGS: Have decreased breath sounds. HEART: Normal S1 and S2. ABDOMEN: Soft. LABORATORY EXAMINATION: Reveals a white count of 7000, hemoglobin of 9. Chemistry reveals a BUN of 20, creatinine is 2.9. Microbiology reveals Klebsiella species and MRSA from the abscess cultured. ASSESSMENT AND PLAN: An 82-year-old female who has a left perineal inner thigh abscess with Klebsiella and methicillin-resistant Staphylococcus aureus, status post incision and drainage, postprocedure day #4, sensitivity as noted and will be discharged on p.o. doxycycline and p.o. Vantin and cefpodoxime, and long-term prognosis is poor for this patient. Jeromy Castellanos MD
--- NOTE | 2017-09-07 08:40 | DS ---
An 82-year-old female resting in bed this morning. Nursing staff relates that there were no particular problems during the night. Patient had dialysis yesterday. PHYSICAL EXAMINATION: GENERAL: She is alert and oriented x3. VITAL SIGNS: Temp is 98, pulse is 72, blood pressure Is 138/64, respiratory rate is 18. LUNGS: Show diminished breath sounds at the bases. HEART: S1 and S2 rhythm. ABDOMEN: Soft with positive bowel sounds. EXTREMITIES: Show no evidence of edema. MEDICATIONS: Consists of Ecotrin 81 mg daily, bacitracin topical b.i.d. to the recently I&D'd abscess in the left perineal area, sliding insulin scale for diabetes, Imdur 30 mg daily, Lopressor 25 mg b.i.d., meropenem every 12 hours, MiraLax 17 g p.o. b.i.d., Percocet 5/325 every 8 hours p.r.n. for severe pain, PhosLo 667 mg with meals, Protonix 40 mg daily, Synthroid 50 mcg daily, Tylenol 2 tablets every 6 hours p.r.n. for moderate pain. PLAN: Patient will continue to receive dialysis on a schedule. She will be transferred to the Transitional Care Unit to complete her antibiotics as recommended by Infectious Disease. Continue her wound care as per Surgery and receive dialysis as per Nephrology. We will continue to monitor the patient closely and follow her labs as well. As recommended by the rehab team, she should continue her physical therapy and that was the reason for going to [facility]. Shavonne Ascencio MD
== END 2017-09-06 16:40 | DRG 444 ==
LOC: ED 11:56 → ERH 14:55 → 2RSO 16:27 → OBSVTOIN 08-26 12:25 → 3RNO 08-28 17:02
PROVIDERS: ADMIT Internal Medicine; ATTEND Internal Medicine
PROC: 5A1D70Z Performance of Urinary Filtration, Intermittent, Less than 6 Hours Per Day (ICD-10-PCS; 2017-08-31)
PROC: 0H99XZX Drainage of Perineum Skin, External Approach, Diagnostic (ICD-10-PCS; principal; 2017-09-02)
PROC: 5A1D70Z Performance of Urinary Filtration, Intermittent, Less than 6 Hours Per Day (ICD-10-PCS; 2017-09-05)
DX: K80.20 Calculus of gallbladder without cholecystitis without obstruction (principal); N18.6 End stage renal disease; I13.2 Hypertensive heart and chronic kidney disease with heart failure and with stage 5 chronic kidney disease, or end stage renal disease; N25.81 Secondary hyperparathyroidism of renal origin; L02.215 Cutaneous abscess of perineum; K57.32 Diverticulitis of large intestine without perforation or abscess without bleeding; I50.9 Heart failure, unspecified; E11.22 Type 2 diabetes mellitus with diabetic chronic kidney disease; E11.42 Type 2 diabetes mellitus with diabetic polyneuropathy; D63.1 Anemia in chronic kidney disease; E03.9 Hypothyroidism, unspecified; I34.0 Nonrheumatic mitral (valve) insufficiency; I48.0 Paroxysmal atrial fibrillation; M51.26 Other intervertebral disc displacement, lumbar region; I25.10 Atherosclerotic heart disease of native coronary artery without angina pectoris; K59.00 Constipation, unspecified; E78.00 Pure hypercholesterolemia, unspecified; E78.5 Hyperlipidemia, unspecified; E83.51 Hypocalcemia; I67.9 Cerebrovascular disease, unspecified; B95.62 Methicillin resistant Staphylococcus aureus infection as the cause of diseases classified elsewhere; B96.1 Klebsiella pneumoniae [K. pneumoniae] as the cause of diseases classified elsewhere; K21.9 Gastro-esophageal reflux disease without esophagitis; F41.9 Anxiety disorder, unspecified; J44.9 Chronic obstructive pulmonary disease, unspecified; F32.9 Major depressive disorder, single episode, unspecified; Z96.642 Presence of left artificial hip joint; Z79.4 Long term (current) use of insulin; Z99.2 Dependence on renal dialysis; Z87.01 Personal history of pneumonia (recurrent); Z88.3 Allergy status to other anti-infective agents; Z86.010 Personal history of colon polyps; I25.2 Old myocardial infarction

== ENCOUNTER 2017-09-06 16:47 | Inpatient (IN) | payer OTHER ==
[2017-09-06 17:14] VITALS: BMI 21.0
[2017-09-06] MEDS ORDERED: Bacitracin Ointment 30 GM TUBE TOP SCH (18:00)
[2017-09-06] MEDS: Bacitracin Ointment 30 GM TUBE TOP SCH (18:23)
[2017-09-06] MEDS: POLYETHYLENE GLYCOL 3350 17 GM/Dose PACKET PO SCH (18:24)
[2017-09-06] MEDS: Insulin Reg-LOW-Coverage SC SCH (21:24)
--- NOTE | 2017-09-06 21:29 | CP.PCM.PCO ---
Physician Communication Note - Physician Communication Note Physician Communication Note: Pt S&E. dressing c/d/i. Packing will be removed in 7 days as outpatient.
[2017-09-07] MEDS: Oxycodone/Acetaminophen 5/325 mg Tab PO PRN (01:40)
[2017-09-07] MEDS: Pantoprazole 40 mg EC Tab PO SCH (05:38)
[2017-09-07] MEDS: Levothyroxine 50 MCG TAB PO SCH (05:38)
[2017-09-07] MEDS: Insulin Reg-LOW-Coverage SC SCH ×4 (06:35→21:30)
--- NOTE | 2017-09-07 08:07 | CP.PCM.PN ---
Subjective - Date & Time of Evaluation Date of Evaluation: 09/07/17 Time of Evaluation: 08:02 - Subjective Subjective: Surgery: Dr. Kelley Pt seen and examined. No acute overnight events. States she feels well & pain is well controlled. Denies other complaints at this time. Objective - Vital Signs/Intake and Output Vital Signs (last 24 hours): Temp Pulse Resp BP Pulse Ox 86 20 128/52 L 09/06/17 19:30 09/06/17 19:30 09/07/17 07:57 - Medications Medications: Current Medications Acetaminophen (Tylenol 325mg Tab) 650 mg PO Q6H PRN; Protocol PRN Reason: Pain, moderate (4-7) Aspirin (Aspirin Chewable) 81 mg PO 0800 [facility] PRN Reason: Protocol Last Admin: 09/07/17 07:58 Dose: 81 mg Bacitracin (Bacitracin) 0 gm TOP BID [facility] PRN Reason: Protocol Last Admin: 09/06/17 18:23 Dose: Not Given Calcium Acetate (Phoslo) 667 mg PO WM [facility] PRN Reason: Protocol Last Admin: 09/07/17 07:58 Dose: 667 mg Doxycycline Hyclate (Doryx) 100 mg PO Q12 [facility] PRN Reason: Protocol Stop: 09/14/17 10:01 Meropenem 250 mg/ Sodium (Chloride) 100 mls @ 100 mls/hr IVPB 0600,1800 [facility] PRN Reason: Protocol Stop: 09/10/17 18:01 Last Admin: 09/07/17 05:38 Dose: 100 mls/hr Insulin Human Regular (Humulin R Low) 0 units SC ACHS [facility] PRN Reason: Protocol Last Admin: 09/07/17 06:35 Dose: Not Given Isosorbide Mononitrate (Imdur) 30 mg PO 0600 [facility] PRN Reason: Protocol Last Admin: 09/07/17 05:39 Dose: 30 mg Levothyroxine Sodium (Synthroid) 50 mcg PO 0600 [facility] PRN Reason: Protocol Last Admin: 09/07/17 05:38 Dose: 50 mcg Metoprolol Tartrate (Lopressor) 25 mg PO 0800,1800 [facility] PRN Reason: Protocol Last Admin: 09/07/17 07:57 Dose: Not Given Oxycodone/Acetaminophen (Percocet 5/325 Mg Tab) 1 tab PO Q8H PRN; Protocol PRN Reason: Pain, severe (8-10) Stop: 09/09/17 20:31 Last Admin: 09/07/17 01:40 Dose: 1 tab Pantoprazole Sodium (Protonix Ec Tab) 40 mg PO 0600 [facility] PRN Reason: Protocol Last Admin: 09/07/17 05:38 Dose: 40 mg Polyethylene Glycol (Miralax) 17 gm PO BID [facility] PRN Reason: Protocol Last Admin: 09/06/17 18:24 Dose: 17 gm - Constitutional Appears: Well, No Acute Distress - Respiratory Exam Respiratory Exam: NORMAL BREATHING PATTERN - Cardiovascular Exam Cardiovascular Exam: RRR - GI/Abdominal Exam GI & Abdominal Exam: Soft. absent: Tenderness - Extremities Exam Additional comments: Left groin incision with exudate noted in wound bed, erythema around the wound improved - Neurological Exam Neurological Exam: Alert, Awake - Skin Skin Exam: Dry, Warm Assessment and Plan - Assessment and Plan (Free Text) Assessment: 82F with left groin abscess, s/p I&D Plan: - Wet to dry dressing applied - Pt can f/u with Dr. Kelley upon leaving the hospital for wound care - cont PT - d/w Dr. Warren Llanos, PGY-3
[2017-09-07] MEDS: POLYETHYLENE GLYCOL 3350 17 GM/Dose PACKET PO SCH ×2 (09:07→18:15)
--- NOTE | 2017-09-07 11:01 | CP.PCM.PN ---
<Starr Bowers - Last Filed: 09/07/17 11:01> Subjective - Date & Time of Evaluation Date of Evaluation: 09/07/17 Time of Evaluation: 10:05 - Subjective Subjective: S&E at bedside, abdominal pain is better, having formed stool, no melena or BRBPR. Groin pain better. No new complaints. Feel better today. Tolerating oral intake. Objective - Vital Signs/Intake and Output Vital Signs (last 24 hours): Temp Pulse Resp BP Pulse Ox 86 20 128/52 L 09/06/17 19:30 09/06/17 19:30 09/07/17 07:57 Intake and Output: 09/07/17 09/07/17 06:59 18:59 Intake Total 420 Balance 420 - Medications Medications: Current Medications Acetaminophen (Tylenol 325mg Tab) 650 mg PO Q6H PRN; Protocol PRN Reason: Pain, moderate (4-7) Aspirin (Aspirin Chewable) 81 mg PO 0800 [facility] PRN Reason: Protocol Last Admin: 09/07/17 07:58 Dose: 81 mg Bacitracin (Bacitracin) 0 gm TOP BID [facility] PRN Reason: Protocol Last Admin: 09/06/17 18:23 Dose: Not Given Calcium Acetate (Phoslo) 667 mg PO WM [facility] PRN Reason: Protocol Last Admin: 09/07/17 07:58 Dose: 667 mg Doxycycline Hyclate (Doryx) 100 mg PO Q12 [facility] PRN Reason: Protocol Stop: 09/14/17 10:01 Last Admin: 09/07/17 09:07 Dose: 100 mg Meropenem 250 mg/ Sodium (Chloride) 100 mls @ 100 mls/hr IVPB 0600,1800 [facility] PRN Reason: Protocol Stop: 09/10/17 18:01 Last Admin: 09/07/17 05:38 Dose: 100 mls/hr Insulin Human Regular (Humulin R Low) 0 units SC ACHS [facility] PRN Reason: Protocol Last Admin: 09/07/17 06:35 Dose: Not Given Isosorbide Mononitrate (Imdur) 30 mg PO 0600 [facility] PRN Reason: Protocol Last Admin: 09/07/17 05:39 Dose: 30 mg Levothyroxine Sodium (Synthroid) 50 mcg PO 0600 [facility] PRN Reason: Protocol Last Admin: 09/07/17 05:38 Dose: 50 mcg Metoprolol Tartrate (Lopressor) 25 mg PO 0800,1800 [facility] PRN Reason: Protocol Last Admin: 09/07/17 07:57 Dose: Not Given Oxycodone/Acetaminophen (Percocet 5/325 Mg Tab) 1 tab PO Q8H PRN; Protocol PRN Reason: Pain, severe (8-10) Stop: 09/09/17 20:31 Last Admin: 09/07/17 01:40 Dose: 1 tab Pantoprazole Sodium (Protonix Ec Tab) 40 mg PO 0600 [facility] PRN Reason: Protocol Last Admin: 09/07/17 05:38 Dose: 40 mg Polyethylene Glycol (Miralax) 17 gm PO BID [facility] PRN Reason: Protocol Last Admin: 09/07/17 09:07 Dose: Not Given - Constitutional Appears: No Acute Distress - Head Exam Head Exam: NORMOCEPHALIC - Eye Exam Eye Exam: Normal appearance. absent: Scleral icterus - ENT Exam ENT Exam: Mucous Membranes Moist - Neck Exam Neck Exam: Normal Inspection - Cardiovascular Exam Cardiovascular Exam: +S1, +S2 - GI/Abdominal Exam GI & Abdominal Exam: Soft, Normal Bowel Sounds. absent: Guarding, Tenderness, Rebound - Extremities Exam Extremities Exam: absent: Calf Tenderness, Pedal Edema - Neurological Exam Neurological Exam: Alert, Awake, Oriented x3 - Skin Skin Exam: Dry, Warm Assessment and Plan - Assessment and Plan (Free Text) Assessment: Assessment: Improved RUQ abdominal pain Cholelithiasis w/ sludge, CBD 6.3 mm on abdominal US s/p I&D of groin abscess Improved Constipation ESRD on hemodialysis DM H/O of recurrent diverticulitis Plan: continue diet, patient is tolerated Continue MiraLAX twice a day, hold for stools >2/day continue PPI on Aspirin cont antibiotics per ID culture of abscess: klebsiella pneumoniae and MRSA Seen and discussed with Dr. Theodore. <Ysabel Theodore V - Last Filed: 09/08/17 00:53> Objective - Vital Signs/Intake and Output Vital Signs (last 24 hours): Temp Pulse Resp BP Pulse Ox 97.6 F 72 16 142/53 L 94 L 09/07/17 10:00 09/07/17 10:00 09/07/17 10:00 09/07/17 18:15 09/07/17 10:00 Intake and Output: 09/07/17 09/08/17 18:59 06:59 Intake Total 420 Balance 420 - Medications Medications: Current Medications Acetaminophen (Tylenol 325mg Tab) 650 mg PO Q6H PRN; Protocol PRN Reason: Pain, moderate (4-7) Aspirin (Aspirin Chewable) 81 mg PO 0800 [facility] PRN Reason: Protocol Last Admin: 09/07/17 07:58 Dose: 81 mg Bacitracin (Bacitracin) 0 gm TOP BID [facility] PRN Reason: Protocol Last Admin: 09/07/17 18:14 Dose: 1 applic Calcium Acetate (Phoslo) 667 mg PO WM [facility] PRN Reason: Protocol Last Admin: 09/07/17 18:16 Dose: 667 mg Doxycycline Hyclate (Doryx) 100 mg PO Q12 [facility] PRN Reason: Protocol Stop: 09/14/17 10:01 Last Admin: 09/07/17 21:26 Dose: 100 mg Meropenem 250 mg/ Sodium (Chloride) 100 mls @ 100 mls/hr IVPB 0600,1800 [facility] PRN Reason: Protocol Stop: 09/10/17 18:01 Last Admin: 09/07/17 18:29 Dose: 100 mls/hr Insulin Human Regular (Humulin R Low) 0 units SC ACHS [facility] PRN Reason: Protocol Last Admin: 09/07/17 21:30 Dose: Not Given Isosorbide Mononitrate (Imdur Er) 30 mg PO 0600 [facility] PRN Reason: Protocol Levothyroxine Sodium (Synthroid) 50 mcg PO 0600 [facility] PRN Reason: Protocol Last Admin: 09/07/17 05:38 Dose: 50 mcg Metoprolol Tartrate (Lopressor) 25 mg PO 0800,1800 [facility] PRN Reason: Protocol Last Admin: 09/07/17 18:15 Dose: 25 mg Oxycodone/Acetaminophen (Percocet 5/325 Mg Tab) 1 tab PO Q8H PRN; Protocol PRN Reason: Pain, severe (8-10) Stop: 09/09/17 20:31 Last Admin: 09/07/17 01:40 Dose: 1 tab Pantoprazole Sodium (Protonix Ec Tab) 40 mg PO 0600 [facility] PRN Reason: Protocol Last Admin: 09/07/17 05:38 Dose: 40 mg Polyethylene Glycol (Miralax) 17 gm PO BID [facility] PRN Reason: Protocol Last Admin: 09/07/17 18:15 Dose: Not Given
[2017-09-07] MEDS: Bacitracin Ointment 30 GM TUBE TOP SCH ×2 (12:17→18:14)
--- NOTE | 2017-09-07 12:22 | PN ---
DATE: 09/07/2017 SUBJECTIVE: Margo Uriarte has MRSA growing in the wound. This is consistent with what I saw on the patient. We will continue oral antibiotics and we will switch from bacitracin to Bactroban. Edwin Kelley MD
--- NOTE | 2017-09-07 14:49 | CP.PCM.CON ---
History of Present Illness - History of Present Illness History of Present Illness: 81 year old female with PMH of HTN, DM, CAD with chronic CHF, ESRD on HD [place] [facility] of abdominal and left groin pain and she was found to have a left sided perineal abscess. It was incised and drained and it grew Klebsiella and MRSA. She is now transferred to [facility] for continued medical therapy and physical therapy. Infectious Diseases consult is requested to continue her antibiotics. She is currently comfortable in bed, less pain in the left groin area, no fever or chills, although still feels weak, appetite is slowly improving, no nausea or vomiting, no abdominal pain, no diarrhea, no headache or dizziness, no cough or colds. Review of Systems - Review of Systems All systems: reviewed and no additional remarkable complaints except (as per HPI ) Past Patient History - Infectious Disease Hx of Infectious Diseases: C.diff - Tetanus Immunizations Tetanus Immunization: Unknown - Past Medical History & Family History Past Medical History?: Yes - Past Social History Smoking Status: Never Smoked - CARDIAC Hx Cardiac Disorders: Yes Hx Congestive Heart Failure: Yes Hx Hypertension: Yes - PULMONARY Hx Chronic Obstructive Pulmonary Disease (COPD): Yes - NEUROLOGICAL Hx Neurological Disorder: Yes (numbnes/tingling left leg and ft) Hx Dizziness: Yes - HEENT Hx HEENT Problems: Yes Hx Cataracts: Yes (b/l sx) - RENAL Hx Dialysis: Yes Hx Renal Failure: Yes - ENDOCRINE/METABOLIC Hx Diabetes Mellitus Type 2: Yes Hx Hypothyroidism: Yes - HEMATOLOGICAL/ONCOLOGICAL Hx Blood Disorders: Yes Hx Anemia: Yes - INTEGUMENTARY Hx Dermatological Problems: No Other/Comment: 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 H/O C DIFF.) Other/Comment: CHOLELITHIASIS - GENITOURINARY/GYNECOLOGICAL Hx Genitourinary Disorders: Yes (VRE IN THE URINE.OLIGURIA.ESRD ON HD) - PSYCHIATRIC Hx Psychophysiologic Disorder: Yes Hx Anxiety: Yes Hx Depression: Yes - SURGICAL HISTORY Hx Surgeries: Yes Hx Coronary Stent: Yes Hx Hysterectomy: Yes Hx Orthopedic Surgery: Yes (left hip replacement) Other/Comment: desi av shunt - ANESTHESIA Hx Anesthesia: Yes Hx Anesthesia Reactions: No Hx Malignant Hyperthermia: No Meds Allergies/Adverse Reactions: Allergies Allergy/AdvReac Type Severity Reaction Status Date / Time ceftriaxone Allergy ITCHING Verified 08/25/17 16:26 - Medications Medications: Current Medications Acetaminophen (Tylenol 325mg Tab) 650 mg PO Q6H PRN; Protocol PRN Reason: Pain, moderate (4-7) Aspirin (Aspirin Chewable) 81 mg PO 0800 RUTHANN PRN Reason: Protocol Bacitracin (Bacitracin) 0 gm TOP BID RUTHANN PRN Reason: Protocol Last Admin: 09/06/17 18:23 Dose: Not Given Calcium Acetate (Phoslo) 667 mg PO WM RUTHANN PRN Reason: Protocol Meropenem 250 mg/ Sodium (Chloride) 100 mls @ 100 mls/hr IVPB 0600,1800 RUTHANN PRN Reason: Protocol Stop: 09/09/17 18:59 Last Admin: 09/07/17 05:38 Dose: 100 mls/hr Insulin Human Regular (Humulin R Low) 0 units SC ACHS RUTHANN PRN Reason: Protocol Last Admin: 09/06/17 21:24 Dose: Not Given Isosorbide Mononitrate (Imdur) 30 mg PO 0600 RUTHANN PRN Reason: Protocol Last Admin: 09/07/17 05:39 Dose: 30 mg Levothyroxine Sodium (Synthroid) 50 mcg PO 0600 RUTHANN PRN Reason: Protocol Last Admin: 09/07/17 05:38 Dose: 50 mcg Metoprolol Tartrate (Lopressor) 25 mg PO 0800,1800 RUTHANN PRN Reason: Protocol Last Admin: 09/06/17 18:24 Dose: 25 mg Oxycodone/Acetaminophen (Percocet 5/325 Mg Tab) 1 tab PO Q8H PRN; Protocol PRN Reason: Pain, severe (8-10) Stop: 09/09/17 20:31 Last Admin: 09/07/17 01:40 Dose: 1 tab Pantoprazole Sodium (Protonix Ec Tab) 40 mg PO 0600 RUTHANN PRN Reason: Protocol Last Admin: 09/07/17 05:38 Dose: 40 mg Polyethylene Glycol (Miralax) 17 gm PO BID RUTHANN PRN Reason: Protocol Last Admin: 09/06/17 18:24 Dose: 17 gm Physical Exam - Constitutional Appears: Non-toxic, Chronically Ill - Head Exam Head Exam: NORMAL INSPECTION - ENT Exam ENT Exam: Mucous Membranes Moist - Neck Exam Neck exam: Negative for: Meningismus - Respiratory Exam Respiratory Exam: Decreased Breath Sounds - Cardiovascular Exam Cardiovascular Exam: +S1, +S2 - GI/Abdominal Exam GI & Abdominal Exam: Soft. absent: Tenderness Results - Vital Signs Recent Vital Signs: Last Vital Signs Temp Pulse 86 09/06/17 19:30 Resp 20 09/06/17 19:30 BP 142/53 L 09/06/17 18:24 Pulse Ox - Labs Labs: Laboratory Results - last 24 hr 09/07/17 06:10 POC Glucose (mg/dL) 120 H Assessment & Plan - Assessment and Plan (Free Text) Plan: Assessment left perineal abscess S/P I and D POD #5, grew MRSA and Klebsiella history of sepsis due to E. 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 diff. associated diarrhea S/P severe sepsis with acute sigmoid diverticulitis and acute cholecystitis history of acute NSTEMI history of sepsis due to acute descending colon diverticulitis and bilateral lobe healthcare-associated pneumonia history of healthcare-associated pneumonia (right upper lobe, bilateral lower lobes) HTN DM CAD with chronic CHF ESRD on HD Plan continue Doxycycline and Merrem to complete 7-10 days from time of I and D (day 5 today) will monitor clinically discussed with Dr. Ascencio
--- NOTE | 2017-09-07 19:25 | PN ---
DATE: 09/07/2017 SUBJECTIVE: The patient is seen lying in bed in the Transitional Care Unit. She is comfortable. PHYSICAL EXAMINATION GENERAL: Elderly lady lying in bed. VITAL SIGNS: Blood pressure 132/47, heart rate 72, respiratory rate , temperature 97.6. HEENT: Normocephalic, atraumatic. NECK: Supple, no JVD. LUNGS: Bilateral equal air entry, bilateral equal expansion. CARDIAC: S1 and S2, regular rate and rhythm, no murmur, no rub. ABDOMEN: Soft, nondistended, nontender, bowel sounds present. EXTREMITIES: No lower extremity edema. INTAKE AND OUTPUT: Not charted. LABORATORY DATA: No new labs available. MEDICATIONS: Aspirin, bacitracin, doxycycline, insulin, Imdur, Lopressor, meropenem, MiraLax, PhosLo, Protonix, Synthroid, Tylenol. ASSESSMENT: 1. Left-sided perineal abscess, status post incision and drainage. 2. Nausea and vomiting, resolved. 3. Non-insulin dependant diabetes mellitus. 4. Hypertension. 5. Coronary artery disease. 6. Cachexia. 7. End-stage renal disease. PLAN: 1. Continue antibiotics as per ID recommendations. 2. Dialysis today. 3. Push p.o. intake. 4. Physical therapy. Barbi Linares MD
--- NOTE | 2017-09-08 01:56 | HP ---
DATE: 09/07/2017 HISTORY OF PRESENT ILLNESS: An 82-year-old female being admitted to the Transitional Care Unit for physical and occupational therapy. She is status post I and D of a left perineal abscess by Surgery. She has a history of chronic renal disease, on dialysis 4 times a week, history of diverticulosis, diverticulitis, pneumonia, failure, ischemic heart disease, myocardial infarction, insulin-dependent diabetes, hyperlipidemia, carotid disease, hip surgery, hypothyroid disease. REVIEW OF SYSTEMS: As stated above. SOCIAL HISTORY: She is a nonsmoker, nondrinker. ALLERGIES: ALLERGY HISTORY TO CEFTRIAXONE. ACTIVE MEDICATIONS: Consist of Tylenol, Synthroid, Protonix, PhosLo, Percocet, MiraLax, meropenem, Lopressor, Imdur, sliding insulin Humulin scale, , bacitracin and Ecotrin. PHYSICAL EXAMINATION: VITAL SIGNS: Temperature of 97.6, blood pressure is 132/47, pulse is 72 and regular, respiratory rate is 16. GENERAL: She is alert and oriented x3. NECK: Supple. LUNGS: Show diminished breath sounds at the bases. HEART: S1 and S2 rhythm. Grade 2/6 systolic murmur. ABDOMEN: Soft, scaphoid, positive bowel sounds. EXTREMITIES: Show no evidence of edema. IMPRESSION AND PLAN: The patient will be followed by Gastroenterology, Renal, Surgery and Infectious Disease. She will receive occupational and physical therapy. Will be on dialysis and we will monitor the patient's labs. Shavonne Ascencio MD
[2017-09-08] MEDS: Pantoprazole 40 mg EC Tab PO SCH (05:54)
[2017-09-08] MEDS: Levothyroxine 50 MCG TAB PO SCH (05:54)
[2017-09-08] MEDS: Insulin Reg-LOW-Coverage SC SCH ×4 (06:29→21:55)
--- NOTE | 2017-09-08 09:23 | PN ---
DATE: 09/08/2017 SUBJECTIVE: The patient is in bed, in no acute distress, nontoxic. PHYSICAL EXAMINATION: VITAL SIGNS: Temperature is 97, blood pressure is 140/50, respiratory rate of 18. HEENT: Examination of HEENT is unremarkable. NECK: Supple. LUNGS: Have decreased breath sounds. HEART: Normal S1, S2. ABDOMEN: Soft, nontender. LABORATORY DATA: Laboratory examination is noted. ASSESSMENT AND PLAN: An 82-year-old female who has a left perineal abscess, status post incision and drainage, postprocedure day #6 with methicillin-resistant Staphylococcus aureus and Klebsiella with a history of bacteremia and a left-sided diverticulitis and healthcare-associated pneumonia, vancomycin-resistant Enterococcus in the urine, history of Clostridium difficile, history of sepsis, diverticulitis and acute cholecystitis, history of acute [id number]-[id number] myocardial infarction and hypertension, diabetes, coronary artery disease, congestive heart failure, end-stage renal disease, on hemodialysis, on doxycycline and meropenem. Today is day #6, would complete 7 days. We will discontinue the antibiotics tomorrow. Tomorrow is the last dose. Jeromy Castellanos MD
[2017-09-08] MEDS: POLYETHYLENE GLYCOL 3350 17 GM/Dose PACKET PO SCH ×2 (09:52→17:18)
[2017-09-08] MEDS: Bacitracin Ointment 30 GM TUBE TOP SCH ×2 (09:52→17:17)
--- NOTE | 2017-09-08 12:22 | PN ---
DATE: 09/08/2017 SUBJECTIVE: Patient is currently seen in the TCU. She is lying in bed. She is scheduled for her extra dialysis treatment today. Patient is continuing on IV antibiotic therapy for her left medial thigh groin abscess. She is status post incision and drainage. The abscess was positive for Klebsiella pneumoniae and MRSA. Blood cultures were negative. MEDICATIONS: Medication list reviewed. Patient is currently on aspirin, bacitracin, doxycycline, insulin, Imdur, Lopressor, meropenem, MiraLax, Percocet, PhosLo, Protonix, Synthroid, and Tylenol p.r.n. OBJECTIVE: VITAL SIGNS: Blood pressure 140/54, temperature 97.6, pulse of 72 with a respiratory rate of 16, pulse ox is 94%. HEENT: Shows her to be normocephalic, atraumatic. Conjunctivae are pale. Sclerae nonicteric. NECK: Supple. No neck vein distention. CHEST: Clear to auscultation and percussion. No rales, rhonchi or wheezing. CARDIOVASCULAR: Shows a regular rate and rhythm with MR/TR. Diminished lower extremity pulses. Left upper extremity AV fistula. ABDOMEN: Soft. Bowel sounds normal. No rebound, guarding or masses. EXTREMITIES: Show no lower extremity cyanosis, clubbing or edema. She has a dry and intact dressing over the area of the incision and drainage of her left groin abscess. LABORATORY DATA AND IMAGING: No recent labs. Laboratory work from 09/06/2017, white blood cell count 7, hemoglobin 9.7 with a platelet count of 95,000. Chemistries from 09/06/2017, showed a BUN of 20 with a creatinine of 2.9, glucose was 125, calcium was 8.0. Her last phosphorus level was 2.8. Microbiology, cultures were positive as noted above. ASSESSMENT: 1. Left groin medial upper thigh abscess status post incision and drainage. Patient will complete a full course of antibiotic therapy in the TCU. She will receive local wound care from the operating surgeon Dr. Edwin Kelley. 2. History of end-stage renal disease. Patient will continue three times a week dialysis with the next treatment on Saturdays. She will be going down for dialysis soon. 3. History of noninsulin-dependent diabetes mellitus. Continue present medications. Patient is on sliding scale insulin. 4. History of hypertension. Blood pressure controlled on present medical therapy. 5. History of anemia secondary to chronic kidney disease with suppression from her abscess. Patient will continue Aranesp and IV iron per protocol. 6. History of secondary hyperparathyroidism. Phosphorus level is now down to 2.8. P.o. intake is likely not good. I will hold PhosLo at this point in time. 7. Hypothyroidism. Patient will continue thyroid replacement therapy. PLAN: 1. Continue present dialysis four times a week as ordered. 2. Followup with ID. Continue IV antibiotic therapy. 3. Continue local wound care. 4. Continue physical therapy and rehabilitation in the TCU. 5. Continue Aranesp, iron per protocol on dialysis. 6. Continue renal diet. Buck Yanes MD
--- NOTE | 2017-09-08 13:15 | PN ---
DATE: 09/08/2017 SUBJECTIVE: The patient is 82 years old on transitional care unit, receiving occupational, physical therapy and IV antibiotics. PHYSICAL EXAMINATION: VITAL SIGNS: Temperature is 97.6, blood pressure is 132/40, oxygen saturation is 97% on nasal cannula, respiratory rate is 16, pulse is 72. GENERAL: She is alert and oriented x3. LUNGS: Show diminished breath sounds at the bases. HEART: S1 and S2 rhythm. ABDOMEN: Soft with positive bowel sounds. EXTREMITIES: Show no evidence of edema.. LABORATORY DATA: Blood sugar this morning fasting was 131. MEDICATIONS: The patient is currently on Ecotrin, bacitracin, Doryx, sliding insulin scale, Imdur, Lopressor, meropenem, MiraLax, Percocet, Protonix, Synthroid and Tylenol. ASSESSMENT AND PLAN: She is going to be completing her course of antibiotics for recent abscess of the perineal area, which has been drained as per Infectious Disease note. She is being followed by Nephrology with a history of chronic dialysis, chronic renal failure, chronic anemia. She also has a history of hypothyroid disease, history of hyperlipidemia, insulin-dependent diabetes, hypertension, carotid disease. In the past, the patient is having history of Clostridium difficile and vancomycin-resistant Enterococcus urinary tract infection, diverticulosis, diverticulitis, acute cholecystitis, history of acute non-ST elevation myocardial infarction, coronary artery disease. Continue current level of care and monitor the patient closely. Follow up labs from dialysis. Shavonne Ascencio MD
[2017-09-08 14:33] LABS: ALB/GLOB RATIO 0.6 (1.1-1.8); ALBUMIN 2.8 g/dL (3.0-4.8); CALCIUM 7.8 mg/dL (8.4-10.5)
[2017-09-08 14:36] LABS: EOS % 0.8 % (1.5-5.0); GRAN # 3.89 (1.4-6.5); GRAN % 76.5 % (50.0-68.0); LYMPH # 0.8 (1.2-3.4); MEAN CELL VOLUME 96.9 fl (80.0-105.0); MEAN PLATELET VOLUME 9.2 fl (7.0-11.0); MONO # 0.4 (0.1-0.6); MONO % 7.7 % (1.0-6.0); RBC 2.9 10^6/uL (3.5-6.1); RED CELL DISTRIBUTION WIDTH 19.8 % (11.5-14.5); WHITE BLOOD COUNT 5.1 10^3/ul (4.5-11.0)
[2017-09-09] MEDS: Levothyroxine 50 MCG TAB PO SCH (05:46)
[2017-09-09] MEDS: Oxycodone/Acetaminophen 5/325 mg Tab PO PRN ×2 (05:46→23:31)
[2017-09-09] MEDS: Pantoprazole 40 mg EC Tab PO SCH (05:46)
[2017-09-09] MEDS: Insulin Reg-LOW-Coverage SC SCH ×4 (06:42→22:24)
[2017-09-09] MEDS: Bacitracin Ointment 30 GM TUBE TOP SCH ×2 (09:18→17:16)
[2017-09-09] MEDS: POLYETHYLENE GLYCOL 3350 17 GM/Dose PACKET PO SCH ×2 (09:57→17:58)
--- NOTE | 2017-09-09 10:41 | PN ---
DATE: 09/09/2017 SUBJECTIVE: The patient is an 82-year-old female on Transitional Care Unit, receiving IV antibiotic therapy and occupational and physical therapy. PHYSICAL EXAMINATION: VITAL SIGNS: Her temp this morning is 97.7, her pulse is 76, her blood pressure is 134/76, oxygen saturation is reported at 99% on 2 L of nasal oxygen with a respiratory rate of 20. GENERAL: She is alert and oriented x3. NECK: Supple. LUNGS: Show diminished breath sounds at the bases. HEART: An S1 and S2. ABDOMEN: Soft with positive bowel sounds. EXTREMITIES: Show no evidence of edema. ASSESSMENT AND PLAN: There is a wound in the left perineal area, which has been incised and drained by Surgery. She is currently completing a course of antibiotics. She is on dialysis 4 times a week for chronic renal failure. She has chronic anemia with intermittent Aranesp as per Nephrology. She has hypothyroid disease, on Synthroid replacement therapy. She has ischemic heart disease, remote myocardial infarction. She has insulin-dependent diabetes. She has a history of diverticulosis, diverticulitis. We will continue current medical management at this time. Her blood sugar this morning was 127 fasting. She is on a sliding insulin scale. We will continue with physical and occupational therapy. Shavonne Ascencio MD
--- NOTE | 2017-09-09 13:37 | PN ---
DATE: 09/09/2017 SUBJECTIVE: The patient seen early this morning in room 320. No fevers and chills. OBJECTIVE: VITAL SIGNS: On exam, temperature is 97, blood pressure 130/70. HEENT: Examination is unremarkable. NECK: Supple. LUNGS: Have decreased breath sounds. HEART: Normal S1, S2. ABDOMEN: Soft, nontender. DATA: Laboratory examination reveals a white count of 5.1, hemoglobin of 9, platelets 94. Chemistry reveals a BUN of 23, creatinine of 3.3. ASSESSMENT AND PLAN: This is an 82-year-old female with a left perineal abscess, status post incision and drainage, status post procedure day #7 with methicillin resistant Staphylococcus aureus and Klebsiella with history of bacteremia, history of diverticulitis, history of healthcare-associated pneumonia and vancomycin-resistant enterococcus in the urine, history of clostridium difficile and acute diverticulitis and cholecystitis and history of non-ST elevation myocardial infarction, hypertension, diabetes, coronary artery disease, congestive heart failure. Today is day #7 of the meropenem and doxycycline. We will discontinue the antibiotics after today's last dose. Case discussed with PMD. Jeromy Castellanos MD
--- NOTE | 2017-09-09 15:08 | PN ---
DATE: 09/09/2017 SUBJECTIVE: The patient is currently seen lying comfortable in bed in the TCU. She had an uneventful extra dialysis yesterday. She remains clinically euvolemic. She states there is no drainage coming from the I&D of her abscess of the inner left medial thigh area. She continues on antibiotic therapy. MEDICATIONS: Medication list reviewed. The patient is on aspirin, bacitracin, doxycycline, insulin, Imdur, Lopressor, meropenem, MiraLax, Percocet p.r.n., Protonix, Synthroid and Tylenol. OBJECTIVE: VITAL SIGNS: Blood pressure is 134/76, temperature is 97.7, respiratory rate is 20 with a pulse of 76. HEENT: Exam shows her to be normocephalic, atraumatic. Conjunctivae are pale. Sclerae are nonicteric. NECK: Supple. No neck vein distention. CHEST: Clear to auscultation and percussion. No rales, rhonchi or wheezing. CARDIOVASCULAR: Shows a regular rate and rhythm with MR/TR. Diminished lower extremity pulses. Left upper extremity AV fistula. Positive thrill. Positive bruit. ABDOMEN: Soft. Bowel sounds normal. No rebound, guarding or masses. EXTREMITIES: Show no lower extremity cyanosis, clubbing or edema. She has a dry and intact dressing over the upper medial aspect of her left thigh area in the area of the groin abscess that was I&D'ed. LABORATORY DATA AND IMAGING DATA: Labs from yesterday white blood cell count 5.1, hemoglobin 9 with a platelet count of 94,000. Chemistries from yesterday showed a sodium of 131, BUN 23 with a creatinine of 3.3. Glucose 173. Calcium 7.8 with an albumin of 2.8, corrects to normal. Phosphorus 2.8, magnesium is 1.7. Microbiology from acute care, abscess was positive for Klebsiella and MRSA. Her blood cultures were negative. ASSESSMENT: 1. Left groin medial upper thigh abscess status post incision and drainage. The patient will complete a course of antibiotic therapy in the TCU. Local wound care is being done by Dr. Marshall Kelley and his team. 2. History of end-stage renal disease. The patient will continue Sunday, Sunday and Sunday dialysis with an extra dialysis on Saturdays to prevent fluid overload. 3. History of sog-jeilfab-jmcrovtwz diabetes mellitus. The patient is currently on insulin. Sugar control is variable. 4. History of hypertension. Blood pressure controlled on present medication. 5. History of anemia secondary to chronic kidney disease and likely suppression from her groin abscess. The patient will continue Aranesp and IV iron per protocol. 6. History of secondary hyperparathyroidism. Phosphorus level remains low at 2.8 and binders are currently on hold. 7. Hypothyroidism. Continue thyroid replacement therapy. PLAN: 1. Continue four times a week dialysis. 2. Complete course of antibiotic therapy. 3. Local wound care for followup of the incision and drainage of her groin abscess. 4. Maximize dose of Aranesp. We will continue IV iron per protocol. 5. Continue renal diet. Buck Yanes MD
[2017-09-10] MEDS: Pantoprazole 40 mg EC Tab PO SCH (05:07)
[2017-09-10] MEDS: Levothyroxine 50 MCG TAB PO SCH (05:08)
[2017-09-10] MEDS: Insulin Reg-LOW-Coverage SC SCH ×4 (06:31→22:05)
[2017-09-10] MEDS: POLYETHYLENE GLYCOL 3350 17 GM/Dose PACKET PO SCH ×2 (09:55→18:45)
[2017-09-10] MEDS: Bacitracin Ointment 30 GM TUBE TOP SCH ×2 (09:56→18:44)
--- NOTE | 2017-09-10 12:29 | PN ---
DATE: 09/10/2017 SUBJECTIVE: The patient is currently seen lying comfortable in bed. She continues to complain of excessive tiredness and fatigue. She has just completed therapy in the TCU. She is scheduled for her routine dialysis later today. Apparently, she has no drainage coming out of the area where she had the I&D of her inner left upper medial thigh abscess. MEDICATIONS: Medication list reviewed. The patient is on aspirin, bacitracin, insulin, metoprolol, oxycodone with Tylenol, Protonix, Synthroid and acetaminophen. Apparently, antibiotics have been discontinued. OBJECTIVE: VITAL SIGNS: Blood pressure 122/66, pulse 75, temperature 97.7, respiratory rate is 20. HEENT: Shows her to be normocephalic, atraumatic. Conjunctivae are pale. Sclerae are nonicteric. NECK: Supple. No neck vein distention. CHEST: Clear to auscultation and percussion. No rales, rhonchi or wheezing. CARDIOVASCULAR: Shows a regular rate and rhythm with MR/TR. Diminished lower extremity pulses. Left upper extremity AV fistula. ABDOMEN: Soft. Bowel sounds are normal. No rebound, guarding or masses. EXTREMITIES: Show no drainage of her dressing of the left upper medial inner thigh area. Diminished lower extremity pulses bilaterally. LABORATORY DATA AND IMAGING: Repeat chemistries to be done today with dialysis. Microbiology from acute care: Abscess was positive for Klebsiella and MRSA. Her blood cultures were negative. ASSESSMENT: 1. Left groin medial upper thigh abscess, status post incision and drainage. The patient apparently has completed a course of antibiotic therapy. She is being followed by Dr. Edwin Kelley, her surgeon. 2. History of end-stage renal disease. The patient will continue four times a week dialysis. 3. History of ove-jxwtlgb-ukhuwfjyb diabetes mellitus. The patient is currently on insulin. Sugar control has been good the last 24 hours. 4. History of hypertension. Blood pressure controlled on present medical therapy. 5. History of anemia. Repeat hemoglobin today. IV iron and Aranesp per protocol. 6. History of secondary hyperparathyroidism. Binders are on hold. Her last phosphorus level was less than 3. 7. Hypothyroidism. Continue thyroid replacement therapy. PLAN: 1. Hemodialysis today, likely in the early afternoon. 2. The patient had completed a course of antibiotic therapy. 3. Continue local wound care. 4. Continue rehabilitation in the TCU. Buck Yanes MD
--- NOTE | 2017-09-10 13:38 | PN ---
DATE: 09/10/2017 SUBJECTIVE: The patient is in bed, in no acute distress, nontoxic. PHYSICAL EXAMINATION VITAL SIGNS: Reveals the patient has a temperature of 98, blood pressure is 129/50, respiratory rate of 16. HEENT: Unremarkable. NECK: Supple. LUNGS: Have decreased breath sounds. HEART: Normal S1 and S2. ABDOMEN: Soft, nontender. LABORATORY DATA: Reveals a white count of 5.1, hemoglobin of 9, platelets of 94. ASSESSMENT AND PLAN: An 82-year-old female with left perineal abscess status post incision and drainage, status post day #8 with methicillin-resistant staphylococcus aureus, Klebsiella cultures in a patient with a history of bacteremia, history of diverticulosis, history of healthcare-associated pneumonia, history of vancomycin-resistant enterococcus in the urine, history of pseudomembranous colitis, diverticulitis, cholecystitis and history of non-ST elevation myocardial infarction, hypertension, diabetes, coronary artery disease, congestive heart failure, has completed 7 days of doxycycline and meropenem and now off of antibiotics. We will follow with you. The patient is at risk for developing nosocomial infections. Jeromy Castellanos MD
--- NOTE | 2017-09-10 14:45 | PN ---
DATE: 09/10/2017 SUBJECTIVE: The patient is on the Transitional Care Unit, receiving occupational and physical therapy. She has completed a course of antibiotics as per Infectious Disease for a wound infection in the left perineal area, which was surgically managed with I&D. She continues on dialysis for her chronic renal disease. She is on Synthroid replacement therapy for hypothyroid disease. PPI prophylaxis for her GERD and history of gastritis. Pain management. She is on laxatives for constipation and she is on Lopressor, Imdur and Ecotrin for her atherosclerotic heart disease and a sliding insulin scale for her insulin-dependent diabetes. She is scheduled for dialysis today. Continue her current level of care at this time. Shavonne Ascencio MD
[2017-09-10 15:18] LABS: EOS % 0.5 % (1.5-5.0); GRAN # 3.04 (1.4-6.5); GRAN % 69.5 % (50.0-68.0); LYMPH # 0.8 (1.2-3.4); LYMPH % 18.1 % (22.0-35.0); MEAN CELL VOLUME 94.6 fl (80.0-105.0); MEAN CORPUSCULAR HEMOGLOBIN 30.5 pg (25.0-35.0); MEAN CORPUSCULAR HGB CONC 32.3 g/dl (31.0-37.0); MEAN PLATELET VOLUME 8.8 fl (7.0-11.0); MONO # 0.5 (0.1-0.6); MONO % 11.9 % (1.0-6.0); RBC 2.95 10^6/uL (3.5-6.1); RED CELL DISTRIBUTION WIDTH 19.1 % (11.5-14.5); WHITE BLOOD COUNT 4.4 10^3/ul (4.5-11.0)
[2017-09-10 15:43] LABS: ALB/GLOB RATIO 0.7 (1.1-1.8); ALBUMIN 3.1 g/dL (3.0-4.8); CALCIUM 7.8 mg/dL (8.4-10.5)
[2017-09-11] MEDS: Oxycodone/Acetaminophen 5/325 mg Tab PO PRN ×2 (02:36→22:13)
[2017-09-11] MEDS: Levothyroxine 50 MCG TAB PO SCH (06:06)
[2017-09-11] MEDS: Pantoprazole 40 mg EC Tab PO SCH (06:06)
[2017-09-11] MEDS: Insulin Reg-LOW-Coverage SC SCH ×4 (06:29→21:59)
[2017-09-11] MEDS: POLYETHYLENE GLYCOL 3350 17 GM/Dose PACKET PO SCH ×2 (09:38→17:38)
[2017-09-11] MEDS: Bacitracin Ointment 30 GM TUBE TOP SCH ×2 (09:38→17:30)
--- NOTE | 2017-09-11 12:00 | PN ---
DATE: 09/11/2017 SUBJECTIVE: The patient is in the Transitional Care Unit, receiving physical and occupational therapy. She has completed a course of antibiotics for a wound infection. She is on dialysis 4 times a week. PHYSICAL EXAMINATION VITAL SIGNS: Her temp is 97.5, her blood pressure is 126/57. She is reported by the Physical Therapy to have a sat of 96% on room air. I have asked the staff to please check this. GENERAL: This morning, she offers no specific complaint. She is feeling a bit tired, but a little bit better. LUNGS: Show rhonchi with diminished breath sounds. HEART: An S1 and S2 rhythm. ABDOMEN: Soft with positive bowel sounds. EXTREMITIES: Show no evidence of edema. LABORATORY DATA: For today is pending. ASSESSMENT AND PLAN: She is status post dialysis yesterday. Her random blood sugar this morning was 110. She will continue on her dialysis schedule. She will be on her cardiac medications, laxative b.i.d. She was constipated and now has moved her bowels. She is being followed by Nephrology for her chronic renal disease. Shavonne Ascencio MD
[2017-09-11] MEDS: Magnesium Oxide 400 mg Tab UD PO SCH (14:01)
--- NOTE | 2017-09-11 14:44 | PN ---
DATE: 09/11/2017 SUBJECTIVE: The patient is currently seen in the TCU sitting up in a chair. She is complaining of tiredness and fatigue. She has been following through with the therapy recommendations in the TCU. She apparently has no drainage coming out of the area where she had an I&D in her left upper thigh abscess region. MEDICATIONS: Medication list reviewed. The patient is on aspirin, bacitracin, insulin, Imdur, Lopressor, MiraLax, Percocet, Protonix, Synthroid and Tylenol. OBJECTIVE: VITAL SIGNS: Blood pressure 145/66, pulse of 87, temperature 97.5, respiratory rate of 16, pulse ox 100%. HEENT: Shows her to be normocephalic, atraumatic. Conjunctivae are pale. Sclerae are nonicteric. NECK: Supple. No neck vein distention. CHEST: Clear to auscultation and percussion with no rales, rhonchi or wheezing. CARDIOVASCULAR: Shows a regular rate and rhythm with MR/TR. Diminished lower extremity pulses. Left upper extremity AV fistula. ABDOMEN: Soft. Bowel sounds normal. No rebound, guarding or masses. EXTREMITIES: Show a dressing over her left upper medial thigh area with no drainage. LABORATORY DATA AND IMAGING: Predialysis blood work from yesterday, white blood cell count 4.4, hemoglobin 9 and platelet count is 107,000. Chemistries yesterday showed a sodium which was low at 125. Potassium was 6, non-hemolyzed. BUN 50 with a creatinine of 5.1. Glucose 102. Calcium 7.8, phosphorus 5.8 with a magnesium level of 1.5. Albumin level is 3.1, hence calcium corrects to normal. Microbiology from acute care: Abscess was positive for Klebsiella and MRSA. Her blood cultures were negative. ASSESSMENT: 1. Status post incision and drainage of a left groin medial upper thigh abscess. The patient has completed a course of antibiotic therapy. 2. History of end-stage renal disease. Mild hyponatremia, mild hyperkalemia. This is all secondary to end-stage renal disease. The patient will continue dialysis four times a week. 3. History of non-insulin dependent diabetes mellitus. The patient currently on insulin with good sugar control. 4. Hypertension. Blood pressure controlled on present medical therapy. 5. History of anemia. Hemoglobin remains stable at 9. The patient will continue receiving Aranesp and iron per protocol on dialysis. 6. History of secondary hyperparathyroidism. Binders were placed on hold, but her phosphorus level is now back up to 5.8. Binders will be restarted. Magnesium level is borderline low at 1.5. The patient may receive magnesium supplement as well. 7. Hypothyroidism. She is clinically and biochemically euthyroid. She will continue thyroid replacement therapy. PLAN: 1. Hemodialysis tomorrow as per protocol. The patient dialyzes Sunday, Sunday and Sunday with an extra dialysis on Sunday. 2. The patient had completed a course of antibiotic therapy for her groin abscess. 3. Continue local wound care. 4. Continue rehabilitation in the TCU. 5. Restart binders. 6. Stressed the patient the importance of a low potassium diet. 7. No treatment for hyponatremia as this will likely resolve with continued dialysis. Buck Yanes MD
--- NOTE | 2017-09-12 00:43 | PN ---
DATE: 09/11/2017 SUBJECTIVE: The patient is in bed, in no acute distress, nontoxic. PHYSICAL EXAMINATION: VITAL SIGNS: Temperature is 98, blood pressure is 129/50, respiratory rate of 18. HEENT: Examination of HEENT is unremarkable. NECK: Supple. LUNGS: Have decreased breath sounds. HEART: Normal S1, S2. ABDOMEN: Soft. LABORATORY EXAMINATION: Reveals a white count is 4.4, hemoglobin of 9, platelets of 107. Chemistries reveals BUN of 50, creatinine of 5.1. ASSESSMENT AND PLAN: This is an 82-year-old with a left radial abscess status post incision and drainage and has completed antibiotic therapy for methicillin-resistant Staphylococcus aureus and Klebsiella and currently now has completed doxycycline, meropenem, currently off of antibiotics, afebrile. Wound is clean, improving. Review of orders confirms the patient to be off of antibiotics and the patient is at risk for developing nosocomial infections. We will follow closely with you. Jeromy Castellanos MD
[2017-09-12] MEDS: Pantoprazole 40 mg EC Tab PO SCH (05:57)
[2017-09-12] MEDS: Levothyroxine 50 MCG TAB PO SCH (05:57)
[2017-09-12] MEDS: Insulin Reg-LOW-Coverage SC SCH ×4 (06:29→21:46)
[2017-09-12] MEDS: Oxycodone/Acetaminophen 5/325 mg Tab PO PRN (07:45)
[2017-09-12] MEDS: Bacitracin Ointment 30 GM TUBE TOP SCH ×2 (09:25→17:11)
[2017-09-12] MEDS: Magnesium Oxide 400 mg Tab UD PO SCH (09:26)
[2017-09-12] MEDS: POLYETHYLENE GLYCOL 3350 17 GM/Dose PACKET PO SCH ×2 (09:26→18:14)
--- NOTE | 2017-09-12 12:40 | CP.PCM.PN ---
Subjective - Date & Time of Evaluation Date of Evaluation: 09/12/17 Time of Evaluation: 10:40 - Subjective Subjective: Seen and examined at the bedside earlier today, chart review. Patient denies nausea, vomiting, or abdominal pain. Tolerating oral intake. Had a formed bowel movement this morning no reports of any bleeding or diarrhea. Awaiting to go to dialysis. Objective - Vital Signs/Intake and Output Vital Signs (last 24 hours): Temp Pulse Resp BP Pulse Ox 97.7 F 87 20 130/63 97 09/12/17 06:31 09/12/17 06:31 09/12/17 06:31 09/12/17 06:31 09/12/17 06:31 - Medications Medications: Current Medications Acetaminophen (Tylenol 325mg Tab) 650 mg PO Q6H PRN; Protocol PRN Reason: Pain, moderate (4-7) Last Admin: 09/10/17 03:15 Dose: 650 mg Aspirin (Aspirin Chewable) 81 mg PO 0800 [facility] PRN Reason: Protocol Last Admin: 09/12/17 07:38 Dose: 81 mg Bacitracin (Bacitracin) 0 gm TOP BID [facility] PRN Reason: Protocol Last Admin: 09/12/17 09:25 Dose: Not Given Calcium Acetate (Phoslo) 667 mg PO WM [facility] Last Admin: 09/12/17 11:54 Dose: 667 mg Insulin Human Regular (Humulin R Low) 0 units SC ACHS [facility] PRN Reason: Protocol Last Admin: 09/12/17 11:54 Dose: Not Given Isosorbide Mononitrate (Imdur Er) 30 mg PO 0600 [facility] PRN Reason: Protocol Last Admin: 09/12/17 06:01 Dose: Not Given Levothyroxine Sodium (Synthroid) 50 mcg PO 0600 [facility] PRN Reason: Protocol Last Admin: 09/12/17 05:57 Dose: 50 mcg Magnesium Oxide (Mag-Ox) 400 mg PO DAILY [facility] Last Admin: 09/12/17 09:26 Dose: 400 mg Metoprolol Tartrate (Lopressor) 25 mg PO 0800,1800 [facility] PRN Reason: Protocol Last Admin: 09/12/17 07:38 Dose: Not Given Oxycodone/Acetaminophen (Percocet 5/325 Mg Tab) 1 tab PO Q8H PRN; Protocol PRN Reason: Pain, severe (8-10) Stop: 09/12/17 20:03 Last Admin: 09/12/17 07:45 Dose: 1 tab Pantoprazole Sodium (Protonix Ec Tab) 40 mg PO 0600 [facility] PRN Reason: Protocol Last Admin: 09/12/17 05:57 Dose: 40 mg Polyethylene Glycol (Miralax) 17 gm PO BID [facility] PRN Reason: Protocol Last Admin: 09/12/17 09:26 Dose: Not Given - Labs Labs: 09/10/17 15:10 09/10/17 15:10 - Constitutional Appears: No Acute Distress - Eye Exam Eye Exam: Normal appearance. absent: Scleral icterus - ENT Exam ENT Exam: Mucous Membranes Moist - Neck Exam Neck Exam: Normal Inspection - Respiratory Exam Respiratory Exam: NORMAL BREATHING PATTERN. absent: Respiratory Distress - Cardiovascular Exam Cardiovascular Exam: +S1, +S2 - GI/Abdominal Exam GI & Abdominal Exam: Soft, Normal Bowel Sounds. absent: Guarding, Tenderness, Rebound - Extremities Exam Extremities Exam: absent: Calf Tenderness, Pedal Edema - Neurological Exam Neurological Exam: Alert, Awake, Oriented x3 - Skin Skin Exam: Dry, Warm Assessment and Plan - Assessment and Plan (Free Text) Assessment: Assessment: Improved RUQ abdominal pain Cholelithiasis w/ sludge, CBD 6.3 mm on abdominal US s/p I&D of groin abscess Improved Constipation ESRD on hemodialysis DM H/O of recurrent diverticulitis Plan: continue diet, patient is tolerated Continue MiraLAX twice a day, hold for stools >2/day continue PPI on Aspirin culture of abscess: klebsiella pneumoniae and MRSA Seen and discussed with Dr. Theodore.
[2017-09-12 14:28] LABS: EOS % 0.5 % (1.5-5.0); GRAN # 3.14 (1.4-6.5); GRAN % 71.5 % (50.0-68.0); HEMOGLOBIN 8.5 g/dL (12.0-16.0); LYMPH # 0.9 (1.2-3.4); LYMPH % 21.4 % (22.0-35.0); MEAN CELL VOLUME 95.3 fl (80.0-105.0); MEAN CORPUSCULAR HEMOGLOBIN 30.7 pg (25.0-35.0); MEAN CORPUSCULAR HGB CONC 32.2 g/dl (31.0-37.0); MEAN PLATELET VOLUME 8.7 fl (7.0-11.0); MONO # 0.3 (0.1-0.6); MONO % 6.6 % (1.0-6.0); RBC 2.77 10^6/uL (3.5-6.1); RED CELL DISTRIBUTION WIDTH 18.8 % (11.5-14.5); WHITE BLOOD COUNT 4.4 10^3/ul (4.5-11.0)
--- NOTE | 2017-09-12 14:30 | PN ---
DATE: 09/12/2017 SUBJECTIVE: The patient is seen sitting in chair. She is awake, she is alert. She reports she is not feeling well. She reports she is very weak. She is unable to walk. She reports that she does not want to go home. She thinks that family will not be able to take care of her. PHYSICAL EXAMINATION: GENERAL: Elderly lady sitting in chair. VITAL SIGNS: Blood pressure 130/63, heart rate 87, respiratory rate 18, temperature 97.7. HEENT: Normocephalic, atraumatic. NECK: Supple. No JVD. LUNGS: Bilateral equal entry, minimal rales. CARDIAC: S1, S2. Regular rhythm and rate. No rub, no murmur. EXTREMITIES: No lower extremity edema. LABORATORY DATA: No new labs. MEDICATIONS: List reviewed. ASSESSMENT AND PLAN: 1. End-stage renal disease. 2. [id number] diabetes mellitus. 3. Hypertension. 4. Secondary hyperparathyroidism. 5. Anemia. 6. Hypothyroidism. PLAN: 1. Dialysis later today. 2. Continue physical therapy. 3. Continue phosphate binders. 4. Consider long-term placement. Barbi Linares MD
[2017-09-12 14:42] LABS: ALB/GLOB RATIO 0.7 (1.1-1.8); ALBUMIN 3.1 g/dL (3.0-4.8); CALCIUM 7.8 mg/dL (8.4-10.5)
--- NOTE | 2017-09-12 21:11 | CP.PCM.PN ---
Subjective - Date & Time of Evaluation Date of Evaluation: 09/12/17 Time of Evaluation: 10:55 - Subjective Subjective: No fevers, not in distress, afebrile. Objective - Vital Signs/Intake and Output Vital Signs (last 24 hours): Temp Pulse Resp BP Pulse Ox 97.7 F 87 20 130/63 97 09/12/17 06:31 09/12/17 06:31 09/12/17 06:31 09/12/17 06:31 09/12/17 06:31 - Medications Medications: Current Medications Acetaminophen (Tylenol 325mg Tab) 650 mg PO Q6H PRN; Protocol PRN Reason: Pain, moderate (4-7) Last Admin: 09/10/17 03:15 Dose: 650 mg Aspirin (Aspirin Chewable) 81 mg PO 0800 [facility] PRN Reason: Protocol Last Admin: 09/12/17 07:38 Dose: 81 mg Bacitracin (Bacitracin) 0 gm TOP BID [facility] PRN Reason: Protocol Last Admin: 09/11/17 17:30 Dose: Not Given Calcium Acetate (Phoslo) 667 mg PO WM [facility] Last Admin: 09/12/17 07:41 Dose: 667 mg Insulin Human Regular (Humulin R Low) 0 units SC ACHS [facility] PRN Reason: Protocol Last Admin: 09/12/17 06:29 Dose: Not Given Isosorbide Mononitrate (Imdur Er) 30 mg PO 0600 [facility] PRN Reason: Protocol Last Admin: 09/12/17 06:01 Dose: Not Given Levothyroxine Sodium (Synthroid) 50 mcg PO 0600 [facility] PRN Reason: Protocol Last Admin: 09/12/17 05:57 Dose: 50 mcg Magnesium Oxide (Mag-Ox) 400 mg PO DAILY [facility] Last Admin: 09/11/17 14:01 Dose: 400 mg Metoprolol Tartrate (Lopressor) 25 mg PO 0800,1800 [facility] PRN Reason: Protocol Last Admin: 09/12/17 07:38 Dose: Not Given Oxycodone/Acetaminophen (Percocet 5/325 Mg Tab) 1 tab PO Q8H PRN; Protocol PRN Reason: Pain, severe (8-10) Stop: 09/12/17 20:03 Last Admin: 09/12/17 07:45 Dose: 1 tab Pantoprazole Sodium (Protonix Ec Tab) 40 mg PO 0600 [facility] PRN Reason: Protocol Last Admin: 09/12/17 05:57 Dose: 40 mg Polyethylene Glycol (Miralax) 17 gm PO BID [facility] PRN Reason: Protocol Last Admin: 09/11/17 17:38 Dose: Not Given - Labs Labs: 09/10/17 15:10 09/10/17 15:10 - Constitutional Appears: Chronically Ill - Head Exam Head Exam: NORMAL INSPECTION - ENT Exam ENT Exam: Mucous Membranes Moist - Neck Exam Neck Exam: absent: Meningismus - Respiratory Exam Respiratory Exam: Decreased Breath Sounds - Cardiovascular Exam Cardiovascular Exam: +S1, +S2 - GI/Abdominal Exam GI & Abdominal Exam: Soft. absent: Tenderness Assessment and Plan - Assessment and Plan (Free Text) Plan: Assessment S/P left perineal abscess S/P I and D, grew MRSA and Klebsiella history of sepsis due to E. 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 diff. associated diarrhea S/P severe sepsis with acute sigmoid diverticulitis and acute cholecystitis history of acute NSTEMI history of sepsis due to acute descending colon diverticulitis and bilateral lobe healthcare-associated pneumonia history of healthcare-associated pneumonia (right upper lobe, bilateral lower lobes) HTN DM CAD with chronic CHF ESRD on HD Plan completed course of Doxycycline and Merrem - will continue to monitor clinically off antibiotics since she is at risk for infections
[2017-09-13] MEDS: Levothyroxine 50 MCG TAB PO SCH (05:21)
[2017-09-13] MEDS: Pantoprazole 40 mg EC Tab PO SCH (05:21)
[2017-09-13] MEDS: Insulin Reg-LOW-Coverage SC SCH ×4 (07:28→21:37)
[2017-09-13] MEDS: Bacitracin Ointment 30 GM TUBE TOP SCH ×2 (09:11→17:45)
[2017-09-13] MEDS: Magnesium Oxide 400 mg Tab UD PO SCH (09:12)
[2017-09-13] MEDS: POLYETHYLENE GLYCOL 3350 17 GM/Dose PACKET PO SCH ×2 (09:12→17:47)
--- NOTE | 2017-09-13 11:58 | CP.PCM.PN ---
Subjective - Date & Time of Evaluation Date of Evaluation: 09/13/17 Time of Evaluation: 10:50 - Subjective Subjective: Comfortable on a chair, no fevers, no diarrhea. Objective - Vital Signs/Intake and Output Vital Signs (last 24 hours): Temp Pulse Resp BP Pulse Ox 98.1 F 83 18 151/67 H 97 09/13/17 05:42 09/13/17 05:42 09/13/17 05:42 09/13/17 05:42 09/13/17 05:42 - Medications Medications: Current Medications Acetaminophen (Tylenol 325mg Tab) 650 mg PO Q6H PRN; Protocol PRN Reason: Pain, moderate (4-7) Last Admin: 09/12/17 22:47 Dose: 650 mg Aspirin (Aspirin Chewable) 81 mg PO 0800 [facility] PRN Reason: Protocol Last Admin: 09/12/17 07:38 Dose: 81 mg Bacitracin (Bacitracin) 0 gm TOP BID [facility] PRN Reason: Protocol Last Admin: 09/12/17 17:11 Dose: Not Given Calcium Acetate (Phoslo) 667 mg PO WM [facility] Last Admin: 09/12/17 18:15 Dose: 667 mg Insulin Human Regular (Humulin R Low) 0 units SC ACHS [facility] PRN Reason: Protocol Last Admin: 09/12/17 21:46 Dose: Not Given Isosorbide Mononitrate (Imdur Er) 30 mg PO 0600 [facility] PRN Reason: Protocol Last Admin: 09/13/17 05:21 Dose: 30 mg Levothyroxine Sodium (Synthroid) 50 mcg PO 0600 [facility] PRN Reason: Protocol Last Admin: 09/13/17 05:21 Dose: 50 mcg Magnesium Oxide (Mag-Ox) 400 mg PO DAILY [facility] Last Admin: 09/12/17 09:26 Dose: 400 mg Metoprolol Tartrate (Lopressor) 25 mg PO 0800,1800 [facility] PRN Reason: Protocol Last Admin: 09/12/17 18:16 Dose: Not Given Pantoprazole Sodium (Protonix Ec Tab) 40 mg PO 0600 [facility] PRN Reason: Protocol Last Admin: 09/13/17 05:21 Dose: 40 mg Polyethylene Glycol (Miralax) 17 gm PO BID [facility] PRN Reason: Protocol Last Admin: 09/12/17 18:14 Dose: Not Given - Labs Labs: 09/12/17 14:00 09/12/17 14:00 - Constitutional Appears: Chronically Ill - Head Exam Head Exam: NORMAL INSPECTION - Neck Exam Neck Exam: absent: Meningismus - Respiratory Exam Respiratory Exam: Decreased Breath Sounds - Cardiovascular Exam Cardiovascular Exam: +S1, +S2 - GI/Abdominal Exam GI & Abdominal Exam: Soft. absent: Tenderness Assessment and Plan - Assessment and Plan (Free Text) Plan: Assessment S/P left perineal abscess S/P I and D, grew MRSA and Klebsiella history of sepsis due to E. 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 diff. associated diarrhea S/P severe sepsis with acute sigmoid diverticulitis and acute cholecystitis history of acute NSTEMI history of sepsis due to acute descending colon diverticulitis and bilateral lobe healthcare-associated pneumonia history of healthcare-associated pneumonia (right upper lobe, bilateral lower lobes) HTN DM CAD with chronic CHF ESRD on HD Plan completed course of Doxycycline and Merrem - will continue to monitor clinically off antibiotics since she is at risk for nosocomial infections
--- NOTE | 2017-09-13 15:56 | PN ---
DATE: 09/13/2017 SUBJECTIVE: The patient is seen sitting in chair. She is awake. She is alert. She reports feeling a little bit better today. She walked with the therapist. PHYSICAL EXAMINATION GENERAL: Elderly lady sitting in chair. VITAL SIGNS: Blood pressure 138/61, heart rate 85, respiratory rate 18, temperature 98.4. HEENT: Normocephalic, atraumatic. NECK: Supple, no JVD. LUNGS: Bilateral equal air entry, bilateral rhonchi. CARDIAC: S1 and S2, regular rate and rhythm, no murmur, no rub. ABDOMEN: Obese, distended, soft, nontender, bowel sounds present. EXTREMITIES: No lower extremity edema. LABORATORY DATA: No new labs today. MEDICATIONS: List reviewed. ASSESSMENT AND PLAN: 1. Stable dialysis yesterday. 2. Continue physical therapy. 3. Push p.o. intake. 4. Discharge planning. Barbi Linares MD
[2017-09-13 16:29] VITALS: O2SAT 100
--- NOTE | 2017-09-13 20:59 | PN ---
DATE: 09/13/2017 SUBJECTIVE: Margo Uriarte is being transferred out of the unit, being treated for heparin-induced thrombocytopenia. The platelet count being 96 at this time. The amount coming out of the drain is not reported, but the nurse said it is 15 mL. We will get a 24-hour count. If it is still low, we will remove it, states she is to follow. Edwin Kelley MD
--- NOTE | 2017-09-13 22:34 | PN ---
DATE: 09/13/2017 SUBJECTIVE: The patient is resting comfortably this morning in the chair. States that she is feeling better today. PHYSICAL EXAMINATION: VITAL SIGNS: Show a temp of 98.4, pulse is 85, blood pressure is 138/61, respiratory rate is 18. NECK: Supple. LUNGS: Show diminished breath sounds at the bases. HEART: Has an S1 and S2 rhythm. ABDOMEN: Soft, scaphoid, positive bowel sounds. EXTREMITIES: No evidence of edema. LABORATORY DATA: She had a fasting blood sugar of 122 this morning. Nursing relates that there were no particular problems. MEDICATIONS: She is on aspirin, bacitracin, sliding insulin scale, Imdur, Lopressor, magnesium oxide, MiraLax, PhosLo, Protonix, Synthroid and Tylenol. ASSESSMENT AND PLAN: She has completed the course of antibiotics for a wound infection in the left perineal area. She is receiving dialysis four times a week. She has chronic renal disease. She has a history of diverticulosis, diverticulitis, gallstones, cholecystitis, congestive heart failure, atherosclerotic heart disease, carotid disease, remote hip surgery. She is receiving occupational and physical therapy on the unit. We will continue current care at this time. Shavonne Ascencio MD
[2017-09-14] MEDS: Levothyroxine 50 MCG TAB PO SCH (05:07)
[2017-09-14] MEDS: Pantoprazole 40 mg EC Tab PO SCH (05:07)
[2017-09-14] MEDS: Insulin Reg-LOW-Coverage SC SCH ×3 (06:55→17:26)
[2017-09-14] MEDS: Bacitracin Ointment 30 GM TUBE TOP SCH ×2 (09:53→17:26)
[2017-09-14] MEDS: Magnesium Oxide 400 mg Tab UD PO SCH (09:54)
[2017-09-14] MEDS: POLYETHYLENE GLYCOL 3350 17 GM/Dose PACKET PO SCH ×2 (09:55→17:28)
[2017-09-14 11:37] LABS: EOS % 0.4 % (1.5-5.0); GRAN # 3.56 (1.4-6.5); GRAN % 74.1 % (50.0-68.0); HEMOGLOBIN 8.3 g/dL (12.0-16.0); LYMPH # 0.9 (1.2-3.4); LYMPH % 19.2 % (22.0-35.0); MEAN CELL VOLUME 95.9 fl (80.0-105.0); MEAN CORPUSCULAR HEMOGLOBIN 31.2 pg (25.0-35.0); MEAN CORPUSCULAR HGB CONC 32.5 g/dl (31.0-37.0); MEAN PLATELET VOLUME 8.8 fl (7.0-11.0); MONO # 0.3 (0.1-0.6); MONO % 6.3 % (1.0-6.0); RBC 2.66 10^6/uL (3.5-6.1); RED CELL DISTRIBUTION WIDTH 18.3 % (11.5-14.5); WHITE BLOOD COUNT 4.8 10^3/ul (4.5-11.0)
--- NOTE | 2017-09-14 11:38 | CP.PCM.PN ---
Subjective - Date & Time of Evaluation Date of Evaluation: 09/14/17 Time of Evaluation: 09:55 - Subjective Subjective: Seen and examined at the bedside earlier today, chart reviewed. No acute overnight events reported. Patient denies nausea, vomiting, or abdominal pain. Had formed soft stool this morning no reports of any bleeding. Awaiting to go to dialysis this morning. Objective - Vital Signs/Intake and Output Vital Signs (last 24 hours): Temp Pulse Resp BP Pulse Ox 97 F L 95 H 16 127/50 L 100 09/13/17 16:28 09/14/17 07:43 09/13/17 16:28 09/14/17 07:43 09/13/17 16:28 - Medications Medications: Current Medications Acetaminophen (Tylenol 325mg Tab) 650 mg PO Q6H PRN; Protocol PRN Reason: Pain, moderate (4-7) Last Admin: 09/12/17 22:47 Dose: 650 mg Aspirin (Aspirin Chewable) 81 mg PO 0800 [facility] PRN Reason: Protocol Last Admin: 09/14/17 07:59 Dose: 81 mg Bacitracin (Bacitracin) 0 gm TOP BID [facility] PRN Reason: Protocol Last Admin: 09/14/17 09:53 Dose: Not Given Calcium Acetate (Phoslo) 667 mg PO WM [facility] Last Admin: 09/14/17 08:00 Dose: 667 mg Insulin Human Regular (Humulin R Low) 0 units SC ACHS [facility] PRN Reason: Protocol Last Admin: 09/14/17 06:55 Dose: 1 units Isosorbide Mononitrate (Imdur Er) 30 mg PO 0600 [facility] PRN Reason: Protocol Last Admin: 09/14/17 05:07 Dose: 30 mg Levothyroxine Sodium (Synthroid) 50 mcg PO 0600 [facility] PRN Reason: Protocol Last Admin: 09/14/17 05:07 Dose: 50 mcg Magnesium Oxide (Mag-Ox) 400 mg PO DAILY [facility] Last Admin: 09/14/17 09:54 Dose: 400 mg Metoprolol Tartrate (Lopressor) 25 mg PO 0800,1800 [facility] PRN Reason: Protocol Last Admin: 09/14/17 07:43 Dose: Not Given Pantoprazole Sodium (Protonix Ec Tab) 40 mg PO 0600 [facility] PRN Reason: Protocol Last Admin: 09/14/17 05:07 Dose: 40 mg Polyethylene Glycol (Miralax) 17 gm PO BID [facility] PRN Reason: Protocol Last Admin: 09/14/17 09:55 Dose: Not Given - Labs Labs: 09/12/17 14:00 09/12/17 14:00 - Constitutional Appears: No Acute Distress - Head Exam Head Exam: NORMOCEPHALIC - Eye Exam Eye Exam: Normal appearance. absent: Scleral icterus - ENT Exam ENT Exam: Mucous Membranes Moist - Neck Exam Neck Exam: Normal Inspection - Respiratory Exam Respiratory Exam: NORMAL BREATHING PATTERN. absent: Respiratory Distress - Cardiovascular Exam Cardiovascular Exam: +S1, +S2 - GI/Abdominal Exam GI & Abdominal Exam: Soft, Normal Bowel Sounds. absent: Guarding, Tenderness, Rebound - Extremities Exam Extremities Exam: absent: Calf Tenderness, Pedal Edema - Neurological Exam Neurological Exam: Alert, Awake, Oriented x3 - Skin Skin Exam: Dry, Warm Assessment and Plan - Assessment and Plan (Free Text) Assessment: Assessment: Improved RUQ abdominal pain Cholelithiasis w/ sludge, CBD 6.3 mm on abdominal US s/p I&D of groin abscess Improved Constipation ESRD on hemodialysis DM H/O of recurrent diverticulitis Plan: continue diet, patient is tolerated Continue MiraLAX twice a day, hold for stools >2/day continue PPI on Aspirin culture of abscess: klebsiella pneumoniae and MRSA possible discharge home today to FU w/ PCP outpatient. Seen and discussed with Dr. Theodore.
[2017-09-14 11:49] LABS: ALB/GLOB RATIO 0.7 (1.1-1.8); ALBUMIN 3.1 g/dL (3.0-4.8)
--- NOTE | 2017-09-14 12:10 | CP.PCM.PN ---
Subjective - Date & Time of Evaluation Date of Evaluation: 09/14/17 Time of Evaluation: 11:10 - Subjective Subjective: No fevers, not in distress, for dialysis. Objective - Vital Signs/Intake and Output Vital Signs (last 24 hours): Temp Pulse Resp BP Pulse Ox 97 F L 95 H 16 127/50 L 100 09/13/17 16:28 09/14/17 07:43 09/13/17 16:28 09/14/17 07:43 09/13/17 16:28 - Medications Medications: Current Medications Acetaminophen (Tylenol 325mg Tab) 650 mg PO Q6H PRN; Protocol PRN Reason: Pain, moderate (4-7) Last Admin: 09/12/17 22:47 Dose: 650 mg Aspirin (Aspirin Chewable) 81 mg PO 0800 [facility] PRN Reason: Protocol Last Admin: 09/14/17 07:59 Dose: 81 mg Bacitracin (Bacitracin) 0 gm TOP BID [facility] PRN Reason: Protocol Last Admin: 09/14/17 09:53 Dose: Not Given Calcium Acetate (Phoslo) 667 mg PO WM [facility] Last Admin: 09/14/17 08:00 Dose: 667 mg Insulin Human Regular (Humulin R Low) 0 units SC ACHS [facility] PRN Reason: Protocol Last Admin: 09/14/17 06:55 Dose: 1 units Isosorbide Mononitrate (Imdur Er) 30 mg PO 0600 [facility] PRN Reason: Protocol Last Admin: 09/14/17 05:07 Dose: 30 mg Levothyroxine Sodium (Synthroid) 50 mcg PO 0600 [facility] PRN Reason: Protocol Last Admin: 09/14/17 05:07 Dose: 50 mcg Magnesium Oxide (Mag-Ox) 400 mg PO DAILY [facility] Last Admin: 09/14/17 09:54 Dose: 400 mg Metoprolol Tartrate (Lopressor) 25 mg PO 0800,1800 [facility] PRN Reason: Protocol Last Admin: 09/14/17 07:43 Dose: Not Given Pantoprazole Sodium (Protonix Ec Tab) 40 mg PO 0600 [facility] PRN Reason: Protocol Last Admin: 09/14/17 05:07 Dose: 40 mg Polyethylene Glycol (Miralax) 17 gm PO BID [facility] PRN Reason: Protocol Last Admin: 09/14/17 09:55 Dose: Not Given - Labs Labs: 09/12/17 14:00 09/12/17 14:00 - Constitutional Appears: Chronically Ill - Head Exam Head Exam: NORMAL INSPECTION - Respiratory Exam Respiratory Exam: Decreased Breath Sounds - Cardiovascular Exam Cardiovascular Exam: +S1, +S2 - GI/Abdominal Exam GI & Abdominal Exam: Soft. absent: Tenderness Assessment and Plan - Assessment and Plan (Free Text) Plan: Assessment S/P left perineal abscess S/P I and D, grew MRSA and Klebsiella history of sepsis due to E. 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 diff. associated diarrhea S/P severe sepsis with acute sigmoid diverticulitis and acute cholecystitis history of acute NSTEMI history of sepsis due to acute descending colon diverticulitis and bilateral lobe healthcare-associated pneumonia history of healthcare-associated pneumonia (right upper lobe, bilateral lower lobes) HTN DM CAD with chronic CHF ESRD on HD Plan completed course of Doxycycline and Merrem - will continue to monitor clinically off antibiotics since she is at risk for hospital-acquired infections
[2017-09-14 16:47] VITALS: BP 141/56; PULSE 86; RESP 20; TEMP 98.6
--- NOTE | 2017-09-14 23:15 | PN ---
DATE: 09/14/2017 SUBJECTIVE: The patient is seen in the dialysis unit. She is awake, she is alert. PHYSICAL EXAMINATION: GENERAL: Elderly lady sitting in chair. VITAL SIGNS: Blood pressure 141/ , heart rate 86, respiratory rate 20, temperature 98.6. HEENT: Normocephalic, atraumatic. NECK: Supple, no JVD. LUNGS: Bilateral equal air entry, no rales. EXTREMITIES: No lower extremity edema. LABORATORY DATA: Hemoglobin 8.3. Sodium 129, potassium 5.3, chloride 91, CO2 of 27, BUN 36, creatinine 3.7, glucose 143, calcium 8, phosphorus 4, albumin 3.1, corrected calcium is 8.5. CURRENT MEDICATIONS: List reviewed. ASSESSMENT: 1. End-stage renal disease. 2. Rxe-kfgqphy-jjazdcdvs diabetes mellitus. 3. Hypertension. 4. Coronary artery disease, congestive heart failure, paroxysmal atrial fibrillation. 5. Anemia of chronic kidney disease. 6. Hyponatremia. PLAN: 1. Continue increased Aranesp on dialysis. 2. Push p.o. protein intake. 3. Continue current antihypertensives and cardiac meds. 4. No objection to discharge. Barbi Linares MD
== END 2017-09-14 19:46 | disposition home health service (06) | DRG 602 ==
LOC: TRCU 16:47
PROVIDERS: ADMIT Internal Medicine; ATTEND Internal Medicine
PROC: F07Z9FZ Gait Training/Functional Ambulation Treatment using Assistive, Adaptive, Supportive or Protective Equipment (ICD-10-PCS; principal; 2017-09-07)
PROC: F08Z4FZ Home Management Treatment using Assistive, Adaptive, Supportive or Protective Equipment (ICD-10-PCS; 2017-09-07)
PROC: 5A1D70Z Performance of Urinary Filtration, Intermittent, Less than 6 Hours Per Day (ICD-10-PCS; 2017-09-07)
PROC: 5A1D70Z Performance of Urinary Filtration, Intermittent, Less than 6 Hours Per Day (ICD-10-PCS; 2017-09-08)
PROC: 5A1D70Z Performance of Urinary Filtration, Intermittent, Less than 6 Hours Per Day (ICD-10-PCS; 2017-09-10)
PROC: 5A1D70Z Performance of Urinary Filtration, Intermittent, Less than 6 Hours Per Day (ICD-10-PCS; 2017-09-12)
PROC: 5A1D70Z Performance of Urinary Filtration, Intermittent, Less than 6 Hours Per Day (ICD-10-PCS; 2017-09-14)
DX: L02.215 Cutaneous abscess of perineum (principal); B95.62 Methicillin resistant Staphylococcus aureus infection as the cause of diseases classified elsewhere; Z79.2 Long term (current) use of antibiotics; N18.6 End stage renal disease; I13.2 Hypertensive heart and chronic kidney disease with heart failure and with stage 5 chronic kidney disease, or end stage renal disease; R64 Cachexia; N25.81 Secondary hyperparathyroidism of renal origin; E87.1 Hypo-osmolality and hyponatremia; E11.22 Type 2 diabetes mellitus with diabetic chronic kidney disease; I50.9 Heart failure, unspecified; I25.10 Atherosclerotic heart disease of native coronary artery without angina pectoris; K80.20 Calculus of gallbladder without cholecystitis without obstruction; K59.00 Constipation, unspecified; D63.1 Anemia in chronic kidney disease; E03.9 Hypothyroidism, unspecified; R26.2 Difficulty in walking, not elsewhere classified; I48.0 Paroxysmal atrial fibrillation; E87.5 Hyperkalemia; E78.5 Hyperlipidemia, unspecified; Z99.2 Dependence on renal dialysis; I25.2 Old myocardial infarction

== ENCOUNTER 2017-09-15 16:22 | Inpatient (IN) | payer MEDICARE, OTHER ==
[2017-09-15] MEDS ORDERED: Albuterol-Ipratrop 3 mg / 0.5 (3 ml) UD IH STA (16:59)
[2017-09-15 17:13] LABS: VENOUS BLOOD GAS BASE EXCESS 7.5 mmol/L (0.0-2.0); VENOUS BLOOD GAS PO2 29 mm/Hg (30-55)
[2017-09-15 17:14] LABS: BASO # 0.01 K/mm3 (0.0-2.0); BASO % 0.2 % (0.0-3.0); EOS % 0.5 % (1.5-5.0); GRAN # 2.9 (1.4-6.5); GRAN % 72.2 % (50.0-68.0); HEMOGLOBIN 9.7 g/dL (12.0-16.0); LYMPH # 0.7 (1.2-3.4); LYMPH % 18.4 % (22.0-35.0); MEAN CELL VOLUME 98.4 fl (80.0-105.0); MEAN CORPUSCULAR HEMOGLOBIN 31.2 pg (25.0-35.0); MEAN CORPUSCULAR HGB CONC 31.7 g/dl (31.0-37.0); MEAN PLATELET VOLUME 9.7 fl (7.0-11.0); MONO # 0.4 (0.1-0.6); MONO % 8.7 % (1.0-6.0); RBC 3.11 10^6/uL (3.5-6.1); RED CELL DISTRIBUTION WIDTH 18.7 % (11.5-14.5)
--- NOTE | 2017-09-15 17:14 | ED PDOC ---
Arrival/HPI - General Chief Complaint: Shortness Of Breath Time Seen by Provider: 09/15/17 16:51 Historian: Patient - History of Present Illness Narrative History of Present Illness (Text): 09/15/17 17:11 pt p/w + persistent sob/chest pain (left sided); pt states + intermittent left sided chest pain; pt was just discharged home from the hospital yesterday; pt states she did not felt improved; pt had received her dialysis this morning and mentioned to the nursing staff that she continues to have sob and was subsequently directed to come to the Emergency department for further eval; pt states + fatigue/weakness, no fever/chills/sweats, no palpitations, no abd pain , no n/v, no numbness/tingling, intact appetite, + noted b/l lower ext swelling ; pt states no fall/trauma/sick contact, no travel; pt is here for further eval ; pt's without other complaints. PCP: Dr Ascencio Time/Duration: < week Symptom Onset: Sudden Symptom Course: Unchanged Activities at Onset: Rest Context: Home Past Medical History - Provider Review Nursing Documentation Reviewed: Yes - Travel History Have you recently traveled outside [place] w/in the past 3 mons?: No - Past History Past History: No Previous - Infectious Disease Hx of Infectious Diseases: C.diff - Tetanus Immunization Tetanus Immunization: Unknown - Reproductive Menopause: Yes Currently : No - Cardiac Hx Cardiac Disorders: Yes Hx Congestive Heart Failure: Yes Hx Hypertension: Yes - Pulmonary Hx Chronic Obstructive Pulmonary Disease (COPD): Yes - Neurological Hx Neurological Disorder: Yes (numbnes/tingling left leg and ft) Hx Dizziness: Yes - HEENT Hx HEENT Disorder: Yes Hx Cataracts: Yes (b/l sx) - Renal Hx Dialysis: Yes Hx Renal Failure: Yes - Endocrine/Metabolic Hx Diabetes Mellitus Type 2: Yes Hx Hypothyroidism: Yes - Hematological/Oncological Hx Blood Disorders: Yes Hx Anemia: Yes - Integumentary Hx Dermatological Disorder: No Other/Comment: L arm shunt has dsg, excellent bruit at site - Musculoskeletal/Rheumatological Hx Musculoskeletal Disorders: Yes Hx Falls: Yes (fell & hurt L ankle) Hx Unsteady Gait: Yes (CANE) - Gastrointestinal Hx Gastrointestinal Disorders: Yes (POOR APPETITE,GERD,DIVERTICULITIS,RECTAL BLEED. H/O C DIFF.) Other/Comment: CHOLELITHIASIS - Genitourinary/Gynecological Hx Genitourinary Disorders: Yes (VRE IN THE URINE.OLIGURIA.ESRD ON HD) - Psychiatric Hx Psychophysiologic Disorder: Yes Hx Anxiety: Yes Hx Depression: Yes Hx Substance Use: No - Surgical History Hx Coronary Stent: Yes Hx Hysterectomy: Yes Hx Orthopedic Surgery: Yes (left hip replacement) Other/Comment: desi av shunt - Anesthesia Hx Anesthesia: Yes Hx Anesthesia Reactions: No Hx Malignant Hyperthermia: No - Suicidal Assessment Feels Threatened In Home Enviroment: No Family/Social History - Physician Review Nursing Documentation Reviewed: Yes Family/Social History: No Known Family HX Smoking Status: Never Smoked Hx Alcohol Use: No Hx Substance Use: No Hx Substance Use Treatment: No Allergies/Home Meds Allergies/Adverse Reactions: Allergies ceftriaxone Allergy (Verified 09/15/17 16:28) ITCHING Home Medications: Home Meds Medication Instructions Recorded Confirmed Fenofibrate [Tricor] 145 mg PO DAILY 04/30/17 09/15/17 Calcium Acetate [Phoslo] 667 mg PO TID 06/24/17 09/15/17 Docusate [Colace] 100 mg PO DAILY 06/24/17 09/15/17 Isosorbide Mononitrate [Imdur] 30 mg PO DAILY 06/24/17 09/15/17 Insulin NPH Hum/Reg Insulin Hm 10 unit SC BID 09/15/17 09/15/17 [Humulin 70/30 Kwikpen] Meloxicam [Mobic] 15 mg PO DAILY 09/15/17 09/15/17 amLODIPine [Norvasc] 5 mg PO DAILY 09/15/17 09/15/17 Review of Systems - Review of Systems Constitutional: Fatigue Eyes: Normal ENT: Normal Respiratory: SOB Cardiovascular: Chest Pain Gastrointestinal: Nausea. absent: Abdominal Pain, Vomiting Genitourinary Female: Normal Musculoskeletal: Other (b/l leg swelling). absent: Arthralgias, Back Pain, Neck Pain, Joint Swelling Skin: Normal Neurological: Dizziness Endocrine: Normal Hemo/Lymphatic: Normal Psychiatric: Normal Physical Exam - Physical Exam Narrative Physical Exam (Text): 09/15/17 17:24 General: alert/awake, GCS = 15, oriented x 2 (not to date/time), resting in bed , uncomfortable, cooperative, interactive; NAD Head: NC/AT; bi-temporal wasting noted EYE: PERRLA, EOMI, sclera anicteric, no nystagmus, no photophobia; visual field intact b/l Facial: WNL Oral: uvula/tongue are midline, no exudate/lesions, no drooling/stridor, no dysphonia; intact dentitions; mild dry oral mucosa NECK: intact ROM, no midline tenderness, no nuchal rigidity, no meningeal signs ; no step off Chest: CTA b/l however decr BS b/l; no w/r/r; no tachypenia, no accessory muscle use noted; coarse breath sounds noted bibasiliar Cardiac: +S1, +S2, no m/r/r, no tachycardia Abdominal: +BS, soft/nd/nt, well nourished patient; no masses/rebound/guarding/ rigidity; no bosch's sign, no mcburney's point tenderness; no pulsatile lesions /masses noted/palpable Extremities: intact ROM, strength 5-/5 grossly intact in all limbs, neurovasc intact b/l; reflex +2/2; + 2-3/5 lower extremity pitting edema up to mid tib/ fib region, NO kamala's sign noted BACK: no step off, no midline tenderness, NO crepitus, no gross deformities noted; Intact ROM SKIN: cap refill ~ 1 sec, no ulcerations, no petechiae, no rashes; + pallor NEURO: CNII-XII WNL, no facial asymmetries, no slurr speech, oriented x 2 (not to date/time) Psych: normal insight, normal affect; follows command with ease Vital Signs Reviewed: Yes Vital Signs Temp Pulse Resp BP Pulse Ox 09/15/17 17:05 96 09/15/17 16:50 20 09/15/17 16:29 97.6 F 82 20 134/86 100 Temperature: Afebrile Blood Pressure: Normal Pulse: Regular Respiratory Rate: Normal Appearance: Positive for: Well-Appearing, Non-Toxic, Uncomfortable Pain Distress: None Mental Status: Positive for: other (alert/awake, cooperative) - Systems Exam Head: Present: Atraumatic, Normocephalic Medical Decision Making ED Course and Treatment: 09/15/17 17:14 Impression: sob/chest pain i have consider all the differential diagnosis regarding pt's chief medical complaints/clinical findings, including but are not limited to: sob/chest pain; r/o anemia, r/o acute CHF, r/o acs A/P: sob/chest pain, r/o acs - labs - iv - acs eval - xray - supportive care - observe/reevaluation 09/15/17 17:[address] ascencio, made aware, will continue to monitor, agrees with Emergency department mgt/dx/txt currently 1800 pt is doing well currently pt is resting in bed, NOT in acute distress pt is awaiting diagnostic results 1830 due to pt's abnl cxr with stable lab results, pt likely need more dialysis as well as cardiac/pulm/renal monitoring; will recommend patient for admission 09/15/17 18:49 Dr. Ascencio is at bedside, wants to admit pt to his service. pt to be placed on telemetry floor; Would like Dr. Urrutia and Dr. So on consult. Dr Ascencio agrees with Emergency department mgt/txt pt is made aware of her medical results agrees with admission Re-evaluation Time: 19:30 Reassessment Condition: Improving,but remains with symptoms - Critical Care Critical Care Minutes: 30 minutes Critical Care Time: Excluding Proc Time Narrative Critical Care (Text): 09/15/17 19:50 critical care time: 30min, excluding procedure time, excluding time teaching residents/students/mid-level providers; including initial eval/diagnosis, diagnostic interpretation, re-eval, consultations, final disposition - Lab Interpretations Lab Results: 09/15/17 16:50 09/15/17 16:50 Lab Results 09/15/17 16:50: Sodium 137, Chloride 92 L, Potassium 4.2, Carbon Dioxide 31, Anion Gap 17, BUN 26 H, Creatinine 2.7 H, Est GFR ( Amer) 20, Est GFR ( Non-Af Amer) 17, Random Glucose 135 H, Calcium 8.4, Magnesium 1.9, Total Bilirubin 0.7, AST 49 H D, ALT 11, Alkaline Phosphatase 119, Lactate Dehydrogenase 539, Total Creatine Kinase 34 L, Troponin I 0.06 D, NT-Pro-B Natriuret Pep > 14669 H, Total Protein 8.7 H, Albumin 3.7, Globulin 5.0, Albumin /Globulin Ratio 0.7 L 09/15/17 16:50: pO2 29 L, VBG pH 7.40, VBG pCO2 55.0, VBG HCO3 34.1 H, VBG Total CO2 35.8 H, VBG O2 Sat (Calc) 52.7, VBG Base Excess 7.5 H, VBG Potassium 4.8, Sodium 133.0, Chloride 97.0 L, Glucose 142 H, Lactate 1.8, FiO2 21.0, Venous Blood Potassium 4.8 09/15/17 16:50: PT 13.2 H, INR 1.15 H, APTT 32.4 09/15/17 16:50: WBC 4.0 L, RBC 3.11 L, Hgb 9.7 L, Hct 30.6 L, MCV 98.4, MCH 31.2 , MCHC 31.7, RDW 18.7 H, Plt Count 102 L, MPV 9.7, Gran % 72.2 H, Lymph % (Auto ) 18.4 L, [place] % (Auto) 8.7 H, Eos % (Auto) 0.5 L, Baso % (Auto) 0.2, Gran # 2.90, Lymph # (Auto) 0.7 L, [place] # (Auto) 0.4, Eos # (Auto) 0.0, Baso # (Auto) 0.01 I have reviewed the lab results: Yes Interpretation: Abnormal lab values (anemia (chronic); ESRD) - RAD Interpretation Narrative RAD Interpretations (Text): 09/15/17 17:38 Preliminary radiology reading by Dr. Rea: CXR reviewed, shows bilateral pleural fusion with pulmonary vascular congestion. Concerned for edema /heart failure. Worsening appearance compared to previous CXR. 09/15/17 19:56 prelim results U/S lower ext: NO DVT b/l Radiology Orders: 09/15/17 16:59 DUPLEX LOWER EXTRM VEIN BILAT [US] Stat 09/15/17 17:00 CHEST PORTABLE [RAD] Stat Data Management Manager: ED Physician, Radiologist - EKG Interpretation EKG Interpretation (Text): 09/15/17 17:28 Sinus rhythm at 80 bpm, 1st degree av block, normal axis, + ectopy, qs in lead III, with st depressions noted to V4-6, ABNL EKG; unchanged compare with old ekg 08/2017 Interpreted by ED Physician: Yes Type: 12 lead EKG Comparison: Similar to previous EKG - Medication Orders Current Medication Orders: Discontinued Medications Albuterol/Ipratropium (Duoneb 3 Mg/0.5 Mg (3 Ml) Ud) 3 ml IH STAT STA Stop: 09/15/17 17:00 Last Admin: 09/15/17 17:24 Dose: 3 ml Aspirin (Ecotrin) 81 mg PO STAT STA Stop: 09/15/17 17:00 Last Admin: 09/15/17 17:24 Dose: 81 mg Disposition/Present on Arrival - Present on Arrival Any Indicators Present on Arrival: No History of DVT/PE: No History of Uncontrolled Diabetes: No Urinary Catheter: No History of Decub. Ulcer: No History Surgical Site Infection Following: None - Disposition Have Diagnosis and Disposition been Completed?: Yes Diagnosis: Acute on chronic diastolic CHF (congestive heart failure), ESRD on dialysis, Ischemic heart disease, Chest pain with moderate risk for cardiac etiology, Shortness of breath, Bilateral pleural effusion, Leg edema Disposition: HOSPITALIZED Disposition Time: 17:33 Patient Plan: Admission, Telemetry Patient Problems: Current Active Problems Problem Status Onset Acute on chronic diastolic CHF (congestive heart failure) Acute ESRD (end stage renal disease) on dialysis Chronic Condition: STABLE
[2017-09-15 17:32] LABS: TROPONIN I 0.06 ng/mL
[2017-09-15 17:35] LABS: ALB/GLOB RATIO 0.7 (1.1-1.8); ALBUMIN 3.7 g/dL (3.0-4.8); ALT/SGPT 11 U/L (7-56); AST/SGOT 49 U/L (14-36); B-TYPE NATRIURETIC PEPTIDE > 35000 pg/mL (0-450); BLOOD UREA NITROGEN 26 mg/dL (7-21); CALCIUM 8.4 mg/dL (8.4-10.5); GFR AFRICAN-AMERICAN 20; GFR NON-AFRICAN AMERICAN 17
[2017-09-15 17:48] LABS: INR 1.15 (0.93-1.08); PARTIAL THROMBOPLASTIN TIME 32.4 Seconds (25.1-36.5); PROTHROMBIN TIME 13.2 SECONDS (9.4-12.5)
--- NOTE | 2017-09-15 19:50 | RAD ---
EXAM: XR Chest, 1 View EXAM DATE/TIME: 09/15/2017 5:00 PM CLINICAL HISTORY: 82 years old, female; Signs and symptoms; Shortness of breath and other: Sob/chest pain TECHNIQUE: Frontal view of the chest. COMPARISON: DX - CHEST PORTABLE 2017-08-25 12:42 FINDINGS: Heart, mediastinum and anthony: The heart remains enlarged. There is calcifications in the aortic knob. Hilar contours are unchanged. Vascularity: There is pulmonary vascular congestion. Lungs: There is continued diffuse increase in interstitial markings. There are no focal opacities in the lung bases. Pleural spaces: There has been interval development of bilateral pleural effusions right greater than left Bony structures: Bony structures are osteopenic. There are degenerative changes. IMPRESSION: Worsening congestive heart failure
[2017-09-15] MEDS: Insulin Reg-LOW-Coverage SC SCH (22:15)
[2017-09-16 00:15] VITALS: BMI 20.3
[2017-09-16 01:33] LABS: TROPONIN I 0.07 ng/mL
[2017-09-16 07:40] LABS: BASO # 0.01 K/mm3 (0.0-2.0); BASO % 0.3 % (0.0-3.0); EOS # 0.1 (0.0-0.7); EOS % 1.4 % (1.5-5.0); GRAN # 2.35 (1.4-6.5); GRAN % 63.8 % (50.0-68.0); HEMOGLOBIN 8.4 g/dL (12.0-16.0); LYMPH # 1.1 (1.2-3.4); LYMPH % 29.1 % (22.0-35.0); MEAN CELL VOLUME 97.8 fl (80.0-105.0); MEAN CORPUSCULAR HEMOGLOBIN 30.7 pg (25.0-35.0); MEAN CORPUSCULAR HGB CONC 31.3 g/dl (31.0-37.0); MEAN PLATELET VOLUME 9.2 fl (7.0-11.0); MONO # 0.2 (0.1-0.6); MONO % 5.4 % (1.0-6.0); RBC 2.74 10^6/uL (3.5-6.1); RED CELL DISTRIBUTION WIDTH 18.6 % (11.5-14.5); WHITE BLOOD COUNT 3.7 10^3/ul (4.5-11.0)
[2017-09-16] MEDS: Insulin Reg-LOW-Coverage SC SCH ×4 (07:54→21:58)
[2017-09-16] MEDS: Levothyroxine 50 MCG TAB PO SCH (08:00)
[2017-09-16] MEDS: Multivitamin Vitamin B Complex (Nephro-Vite) Tab PO SCH (08:00)
[2017-09-16 08:01] LABS: ALB/GLOB RATIO 0.6 (1.1-1.8); ALBUMIN 2.9 g/dL (3.0-4.8); CALCIUM 8.1 mg/dL (8.4-10.5)
[2017-09-16 09:24] LABS: TROPONIN I 0.08 ng/mL
[2017-09-16] MEDS ORDERED: Non Formulary Medication (Calcium Acetate [Phoslo] 667 MG) PO SCH (10:00)
[2017-09-16] MEDS: POLYETHYLENE GLYCOL 3350 17 GM/Dose PACKET PO SCH ×2 (10:16→17:28)
[2017-09-16] MEDS: Pantoprazole 20 mg EC Tab PO SCH (10:16)
--- NOTE | 2017-09-16 12:53 | CP.PCM.CON ---
History of Present Illness - History of Present Illness History of Present Illness: General surgery consult note for Dr. Vijay Soto, PGY-1 Pt S & E at bedside at 1155 82F w/PMH sig for HTN, DM, CAD with chronic CHF, ESRD on HD consulted for L perineal wound care. Pt recently admitted to hospital for ab & L groin pain with I & D of L perineal abscess, cultures positive for MRSA & Klebsiella, discharged from TCU. Pt admitted for SOB, CP while at home. Denies pain in left perineal area, ab pain, F & C, N & V, current SOB or current CP, other complaints. PMH: HTN, DM, CAD with chronic CHF, ESRD on HD, Carotid artery disease, s/p OR, hypothyroidism PSH: L perineal abscess I & D, L carotid stent placement, PCTA, hysterectomy, Left hip replacement, LUE AVF All: Ceftriaxone SH: Denies tobacco, ETOH or illicit drug use FH: Non contributory PMD: Dr. Ascencio Review of Systems - Review of Systems All systems: reviewed and no additional remarkable complaints except - Constitutional Constitutional: absent: Chills, Fever - EENT Ears: absent: Dizziness - Cardiovascular Cardiovascular: absent: Chest Pain - Respiratory Respiratory: absent: Cough - Gastrointestinal Gastrointestinal: absent: Abdominal Pain, Nausea, Vomiting - Genitourinary Genitourinary: absent: Change in Urinary Stream - Musculoskeletal Musculoskeletal: absent: Back Pain - Integumentary Integumentary: absent: [place] Past Patient History - Infectious Disease Hx of Infectious Diseases: C.diff - Tetanus Immunizations Tetanus Immunization: Unknown - Past Medical History & Family History Past Medical History?: Yes - Past Social History Smoking Status: Never Smoked - CARDIAC Hx Congestive Heart Failure: Yes Hx Hypertension: Yes - PULMONARY Hx Chronic Obstructive Pulmonary Disease (COPD): Yes - NEUROLOGICAL Hx Neurological Disorder: Yes (numbnes/tingling left leg and ft) Hx Dizziness: Yes - HEENT Hx HEENT Problems: Yes Hx Cataracts: Yes (b/l sx) - RENAL Hx Chronic Kidney Disease: Yes Hx Dialysis: Yes (mwfs, left arm av shunt) Hx Renal Failure: Yes - ENDOCRINE/METABOLIC Hx Hypothyroidism: Yes - HEMATOLOGICAL/ONCOLOGICAL Hx Blood Disorders: Yes Hx Anemia: Yes - INTEGUMENTARY Hx Dermatological Problems: No Other/Comment: L arm shunt has dsg, excellent bruit at site - MUSCULOSKELETAL/RHEUMATOLOGICAL Hx Rheumatoid Arthritis: Yes (On HD) - GASTROINTESTINAL Hx Gastrointestinal Disorders: Yes (POOR APPETITE,GERD,DIVERTICULITIS,RECTAL BLEED. H/O C DIFF.) Other/Comment: CHOLELITHIASIS - GENITOURINARY/GYNECOLOGICAL Hx Genitourinary Disorders: Yes (VRE IN THE URINE.OLIGURIA.ESRD ON HD) - PSYCHIATRIC Hx Psychophysiologic Disorder: Yes Hx Anxiety: Yes Hx Depression: Yes Hx Substance Use: No - SURGICAL HISTORY Hx Coronary Stent: Yes Hx Hysterectomy: Yes Hx Orthopedic Surgery: Yes (left hip replacement) Other/Comment: desi av shunt - ANESTHESIA Hx Anesthesia: Yes Hx Anesthesia Reactions: No Hx Malignant Hyperthermia: No Meds Allergies/Adverse Reactions: Allergies Allergy/AdvReac Type Severity Reaction Status Date / Time ceftriaxone Allergy ITCHING Verified 09/15/17 16:28 - Medications Medications: Current Medications Amlodipine Besylate (Norvasc) 5 mg PO DAILY [facility] Last Admin: 09/16/17 10:16 Dose: 5 mg Aspirin (Aspirin Chewable) 81 mg PO 0800 [facility] Last Admin: 09/16/17 07:59 Dose: 81 mg Calcium Acetate (Phoslo) 667 mg PO WM [facility] Last Admin: 09/16/17 12:15 Dose: 667 mg Docusate Sodium (Colace) 100 mg PO DAILY [facility] Last Admin: 09/16/17 10:16 Dose: 100 mg Fenofibrate (Tricor) 145 mg PO DAILY [facility] Last Admin: 09/16/17 10:16 Dose: 145 mg Gabapentin (Neurontin) 100 mg PO HS [facility] PRN Reason: Protocol Last Admin: 09/15/17 22:16 Dose: 100 mg Insulin Human Regular (Humulin R Low) 0 units SC [facility] PRN Reason: Protocol Last Admin: 09/16/17 12:02 Dose: Not Given Isosorbide Mononitrate (Imdur Er) 30 mg PO DAILY [facility] Last Admin: 09/16/17 10:17 Dose: 30 mg Levothyroxine Sodium (Synthroid) 50 mcg PO ACB [facility] Last Admin: 09/16/17 08:00 Dose: 50 mcg Metoprolol Tartrate (Lopressor) 25 mg PO BRKDIN [facility] Pantoprazole Sodium (Protonix Ec Tab) 20 mg PO DAILY [facility] Last Admin: 09/16/17 10:16 Dose: 20 mg Polyethylene Glycol (Miralax) 17 gm PO BID [facility] Last Admin: 09/16/17 10:16 Dose: 17 gm Vitamin B Complex/Vit C/Folic Acid (Nephro-Emiliano) 1 tab PO 0800 [facility] Last Admin: 09/16/17 08:00 Dose: 1 tab Physical Exam - Constitutional Appears: Non-toxic, No Acute Distress, Cachectic - Head Exam Head Exam: ATRAUMATIC, NORMAL INSPECTION, NORMOCEPHALIC - Eye Exam Eye Exam: EOMI, Normal appearance - ENT Exam ENT Exam: Mucous Membranes Moist, Normal Exam - Neck Exam Neck exam: Positive for: Full Rom, Normal Inspection - Respiratory Exam Respiratory Exam: Clear to Auscultation Bilateral, NORMAL BREATHING PATTERN. absent: Respiratory Distress - Cardiovascular Exam Cardiovascular Exam: REGULAR RHYTHM, +S1, +S2 - GI/Abdominal Exam GI & Abdominal Exam: Normal Bowel Sounds, Soft. absent: Distended, Firm, Guarding, Tenderness - Extremities Exam Extremities exam: Negative for: tenderness Additional comments: Left perineal wound with granulation tissue, non tender, slightly erythematous at margins, no fluctuance, no drainage - Neurological Exam Neurological exam: Alert, CN II-XII Intact, Oriented x3 - Psychiatric Exam Psychiatric exam: Normal Affect, Normal Mood - Skin Skin Exam: Dry, Intact (excluding I & D incision in left perineal area), Normal Color, Warm Results - Vital Signs Recent Vital Signs: Last Vital Signs Temp 98.8 F 09/16/17 06:00 Pulse 85 09/16/17 10:16 Resp 20 09/16/17 06:00 BP 129/51 L 09/16/17 10:16 Pulse Ox 100 09/16/17 06:00 - Labs Result Diagrams: 09/16/17 07:00 09/16/17 07:00 Labs: Laboratory Results - last 24 hr 09/15/17 09/16/17 09/16/17 21:58 01:00 07:00 WBC 3.7 L RBC 2.74 L Hgb 8.4 L Hct 26.8 L MCV 97.8 MCH 30.7 MCHC 31.3 RDW 18.6 H Plt Count 82 L MPV 9.2 Gran % 63.8 Lymph % (Auto) 29.1 [place] % (Auto) 5.4 Eos % (Auto) 1.4 L Baso % (Auto) 0.3 Gran # 2.35 Lymph # (Auto) 1.1 L [place] # (Auto) 0.2 Eos # (Auto) 0.1 Baso # (Auto) 0.01 Sodium Potassium Chloride Carbon Dioxide Anion Gap BUN Creatinine Est GFR ( Amer) Est GFR (Non-Af Amer) POC Glucose (mg/dL) 158 H Random Glucose Calcium Phosphorus Magnesium Total Bilirubin AST ALT Alkaline Phosphatase Lactate Dehydrogenase 377 Total Creatine Kinase 24 L Troponin I 0.07 Total Protein Albumin Globulin Albumin/Globulin Ratio 09/16/17 09/16/17 09/16/17 07:00 07:31 09:00 WBC RBC Hgb Hct MCV MCH MCHC RDW Plt Count MPV Gran % Lymph % (Auto) [place] % (Auto) Eos % (Auto) Baso % (Auto) Gran # Lymph # (Auto) [place] # (Auto) Eos # (Auto) Baso # (Auto) Sodium 136 Potassium 4.2 Chloride 95 L Carbon Dioxide 30 Anion Gap 15 BUN 30 H Creatinine 3.5 H Est GFR ( Amer) 15 Est GFR (Non-Af Amer) 12 POC Glucose (mg/dL) 110 Random Glucose 113 H Calcium 8.1 L Phosphorus 3.5 Magnesium 1.9 Total Bilirubin 0.6 AST 32 ALT 12 Alkaline Phosphatase 83 Lactate Dehydrogenase 378 Total Creatine Kinase 22 L Troponin I 0.08 Total Protein 7.4 Albumin 2.9 L Globulin 4.5 Albumin/Globulin Ratio 0.6 L 09/16/17 11:48 WBC RBC Hgb Hct MCV MCH MCHC RDW Plt Count MPV Gran % Lymph % (Auto) [place] % (Auto) Eos % (Auto) Baso % (Auto) Gran # Lymph # (Auto) [place] # (Auto) Eos # (Auto) Baso # (Auto) Sodium Potassium Chloride Carbon Dioxide Anion Gap BUN Creatinine Est GFR ( Amer) Est GFR (Non-Af Amer) POC Glucose (mg/dL) 118 H Random Glucose Calcium Phosphorus Magnesium Total Bilirubin AST ALT Alkaline Phosphatase Lactate Dehydrogenase Total Creatine Kinase Troponin I Total Protein Albumin Globulin Albumin/Globulin Ratio Assessment & Plan - Assessment and Plan (Free Text) Assessment: 82F w/L perineal wound s/p I & D- well healing Plan: Continue local wound care as per nursing Will peripherally monitor Further mgmt as per primary team ZOHRA attending Brittany, PGY-1 - Date & Time Date: 09/16/17 Time: 12:51
--- NOTE | 2017-09-16 13:15 | CON ---
DATE: 09/16/2017 REASON FOR CONSULTATION: Shortness of breath, lower extremity edema. HISTORY OF PRESENT ILLNESS: An 84-year-old lady was recently discharged after dialysis on Sunday. The patient came for an extra treatment on Sunday. At that time, she complained of shortness of breath all night. She also complained of lower extremity edema. She complained of some left-sided chest pain. After the ultrafiltration, she was sent to the emergency room. Chest x-ray showed some increased pulmonary interstitial markings. The patient admitted for decompensated congestive heart failure. Currently, she is sitting in bed. She complains of shortness of breath. She is on oxygen. She appears comfortable sitting in bed. She does have 1+ pitting edema. She denies any chest tightness at present. She denies any cough. She complains of weakness. Her WBC count is 3.7. Her potassium is 4.2, BUN is 30 and creatinine 3.5. PAST MEDICAL AND SURGICAL HISTORY: NIDDM, hypertension, CAD, paroxysmal AFib, CHF, cardiomyopathy, end-stage renal disease, anemia of chronic kidney disease, secondary hyperparathyroidism, diverticulitis, chronic complaints of fatigue. FAMILY HISTORY: Noncontributory. SOCIAL HISTORY: No smoking. No alcohol use. No IV drug abuse. ALLERGIES: NO KNOWN DRUG ALLERGIES. MEDICATIONS: Aspirin, Colace, insulin, Imdur 30, MiraLax, vitamin, gabapentin 100 at bedtime, amlodipine 5, PhosLo, Protonix, Synthroid, TriCor. REVIEW OF SYSTEMS: All systems are reviewed, pertinent positives as mentioned in the history presenting illness, rest unremarkable. PHYSICAL EXAMINATION: GENERAL: Elderly lady, sitting in bed. VITAL SIGNS: Blood pressure 129/51, heart rate 85, respiratory rate 20, temperature 98.8. HEENT: Normocephalic, atraumatic, positive pallor. NECK: Supple, no JVD. LUNGS: Bilateral equal air entry, bilaterally equal expansion, some rhonchi, minimal rales. CARDIAC: S1 and S2, regular rate and rhythm, no murmur, no rub. ABDOMEN: Soft, nondistended, nontender, bowel sounds present. EXTREMITIES: 1+ pitting edema of the lower extremities. INTAKE AND OUTPUT: Not charted. LABORATORY DATA: WBC 3.7, hemoglobin 8.4, hematocrit 27, platelets 82. Sodium 136, potassium 4.2, chloride 95, CO2 of 30, BUN 30, creatinine 3.5, glucose 113, calcium 8.1, phosphorus 3.5, magnesium 1.9, troponin 0.08, magnesium 1.9, albumin 2.9. Chest x-ray showing increased interstitial markings. ASSESSMENT: 1. Decompensated congestive heart failure, volume overload. 2. Anemia of chronic kidney disease. 3. Severe cardiomyopathy. 4. End-stage renal disease. 5. Chronic complaints. PLAN: 1. No indication for acute dialysis right now. We will do early dialysis tomorrow. 2. Type and cross. 3. Transfuse 1 unit of PRBC on dialysis tomorrow. 4. Continue oxygen. 5. Continue current medications. Thank you for the courtesy of this consultation. We will follow this patient closely with you. Barbi Linares MD
--- NOTE | 2017-09-16 15:45 | CARD ---
APPROVED REPORT EKG Measurement Heart [id number] <Conclusion> Sinus rhythm with 1st degree AV block with occasional premature ventricular complexes and premature atrial complexes ST & T wave abnormality, consider inferolateral ischemia Abnormal ECG
--- NOTE | 2017-09-16 20:54 | HP ---
HISTORY OF PRESENT ILLNESS: The patient was referred from dialysis after reportedly having dialysis where they reportedly removing 1.5 liters of fluid. They stated that the patient complained about some chest discomfort and some swelling in her feet. PHYSICAL EXAMINATION: VITAL SIGNS: She was found in the emergency room to have a temperature of 97.6, pulse was 82, blood pressure was 134/86, oxygen saturation on room air was reported at 100%, respiratory rate of 20. GENERAL: She is alert and oriented x3. NECK: Supple. LUNGS: Show diminished breath sounds at the bases with rhonchi. HEART: S1 and S2 with a grade 2/6 systolic murmur. ABDOMEN: Soft with positive bowel sounds. EXTREMITIES: Showed trace edema in her ankles, 1+. LABORATORY DATA: Reported showing a WBC of 4, RBC of 3.11, hemoglobin 9.7, hematocrit 30.6, platelet count 102. PT was 13.2 with an INR of 1.15, PTT of 32.4. Venous blood gas showed a pH of 7.4, pCO2 of 55, pO2 of 29 with a lactate of 1.8. Chemistry shows sodium 137, potassium 4.2, chloride 92, BUN of 26, creatinine of 2.7, blood sugar was 135, AST was 49, ALT was 11, alkaline phosphatase was 119. BNP was greater than 35,000. Troponin was 0.06, album 3.7. Chest x-ray reported by Radiology did show pleural effusions, which were new with vascular congestion. Verbally, it is reported that Dopplers of the lower extremities were negative and electrocardiogram shows sinus rhythm with PVCs. After discussion with the emergency room staff, family, the patient, and renal, the patient was to be admitted to telemetry for monitoring with serial cardiac enzymes and followup of labs. At the same time, a discussion will be held regarding her courses during dialysis. She has a past medical history of diverticulosis, diverticulitis, recent perineal wound infection with MRSA treated with IV antibiotics, carotid disease, hyperlipidemia, diabetes mellitus, hypertension, degenerative arthritis. She has had CHF, paroxysmal AFib. She has had non-STEMI in the past. We will get renal and cardiology evaluations. Review the patient's last echocardiogram, which is reported to have an ejection fraction of less than 25% with mild pulmonary hypertension and valvular disease. Shavonne Ascencio MD
--- NOTE | 2017-09-16 23:46 | CON ---
DATE: 09/16/2017 REQUESTING PHYSICIAN: Shavonne Ascencio MD REASON FOR CONSULTATION: Chest pain and dyspnea. HISTORY OF PRESENT ILLNESS: This is an 82-year-old woman well known to us from multiple admissions in the past, who was discharged from the hospital only the day before admission after a stay for similar complaints. Upon arriving home, she noticed worsening dyspnea and chest discomfort. She was admitted. Initial cardiac enzymes were unremarkable. Electrocardiogram showed no acute changes. She has had multiple admissions for chest pain, volume overloaded, and pneumonia. She does have chronic renal failure and maintained on hemodialysis. She has known coronary artery disease and has suffered myocardial infarction in the past. She has moderate mitral regurgitation as well. PAST MEDICAL HISTORY: Notable for the problems mentioned above. She has history of diverticulitis, angiodysplasia with prior gastrointestinal bleeding, carotid disease status post stenting, peripheral neuropathy, prior hip fracture, cholecystitis, left ankle fracture, hypothyroidism, and colonic polyps. MEDICATIONS: Her current medications include aspirin, Colace, insulin coverage, Imdur 30 mg daily, MiraLax, Neurontin 100 mg daily, Norvasc 5 mg daily, PhosLo, Protonix, Synthroid, and TriCor. ALLERGIES: SHE HAS HAD REACTION TO ROCEPHIN IN THE PAST. SOCIAL HISTORY: She does not smoke or drink. FAMILY HISTORY: Both parents are from age-related illness. No family history of premature heart disease. REVIEW OF SYSTEMS: Ten-point review of systems is notable mainly for problems listed above. PHYSICAL EXAMINATION: GENERAL: She is a very elderly woman who appears comfortable, lying in bed. VITAL SIGNS: Her blood pressure is 130/50 with a pulse of 76 in sinus, respirations are 16. She is currently afebrile. HEENT: Head is normocephalic, atraumatic. NECK: Supple. No JVD noted. CHEST: Bilateral scattered rhonchi heard. HEART: PMI displaced laterally with a systolic murmur present at the apex. ABDOMEN: Soft and nontender with normoactive bowel sounds. EXTREMITIES: Functional fistula is present in her left upper arm and no edema is noted. PSYCHIATRIC: Normal mood and affect. NEUROLOGIC: Alert and oriented x3. No gross motor or sensory is appreciable. DIAGNOSTIC DATA: Potassium is 4.2, BUN and creatinine are 30 and 3.5, glucose is 113. White count 3.7, hemoglobin and hematocrit are 8.4 and 26.8 which had been 9.7 on admission, platelet count of 82,000. PT is 13.2, PTT is 32.4. Venous blood gas shows pH 7.4, pCO2 of 55, pO2 of 29. Three sets of cardiac enzymes were negative. BNP is 35,000. Chest x-ray reveals an enlarged cardiac silhouette with mildly increased interstitial markings. Electrocardiogram reveals sinus rhythm with first degree AV block and PVCs and anterolateral ST-T changes suggestive of ischemia unchanged from prior tracings is present. IMPRESSION: 1. Recurrent chest pain and dyspnea, etiology to be determined. No clear evidence of acute cardiac injury at the present time. 2. Known coronary artery disease, status post prior myocardial infarction stable at present. 3. Moderate mitral regurgitation. 4. Chronic renal failure, maintained on hemodialysis, not appear particularly volume overloaded at the present time. 5. Rest of the problems as noted. RECOMMENDATIONS: Admission to telemetry is reasonable. Follow up enzymes will be checked. Electrocardiogram will be repeated in the morning. Old records to be reviewed. Continued intensified dialysis as tolerated is recommended. Intensification of medical therapy is advised. She does not appear to be on a beta leandro at the present time; this will be resumed and she will be observed for any potential side effects. Overall, continued conservative measures appears most reasonable at this time. Thank you for this consultation. We will be happy to follow along the rest of her hospital course. Linus So MD MTDJose J
[2017-09-17 08:09] LABS: EOS % 0.7 % (1.5-5.0); GRAN # 2.98 (1.4-6.5); GRAN % 67.4 % (50.0-68.0); HEMOGLOBIN 8.1 g/dL (12.0-16.0); LYMPH % 22.6 % (22.0-35.0); MEAN CELL VOLUME 96.9 fl (80.0-105.0); MEAN CORPUSCULAR HEMOGLOBIN 31.3 pg (25.0-35.0); MEAN CORPUSCULAR HGB CONC 32.3 g/dl (31.0-37.0); MEAN PLATELET VOLUME 9.2 fl (7.0-11.0); MONO # 0.4 (0.1-0.6); MONO % 9.3 % (1.0-6.0); RBC 2.59 10^6/uL (3.5-6.1); RED CELL DISTRIBUTION WIDTH 18.3 % (11.5-14.5); WHITE BLOOD COUNT 4.4 10^3/ul (4.5-11.0)
[2017-09-17] MEDS: Insulin Reg-LOW-Coverage SC SCH ×4 (08:10→22:19)
[2017-09-17 08:22] LABS: ALB/GLOB RATIO 0.7 (1.1-1.8)
--- NOTE | 2017-09-17 09:55 | US ---
HISTORY: Leg pain and swelling. Evaluate for DVT PHYSICIAN(S): Mukul Naqvi MD. TECHNIQUE: Duplex sonography and color-flow Doppler with graded compression were used to evaluate the deep venous systems of both lower extremities. The exam is somewhat limited by swelling. FINDINGS: The visualized deep venous systems of both lower extremities are sonographically normal and compressible. Normal wave forms and augmentation are seen. There is no sonographic evidence for deep venous thrombosis in the visualized segments of both lower extremities. IMPRESSION: No sonographic evidence for deep venous thrombosis in the visualized segments of both lower extremities.
[2017-09-17] MEDS: Levothyroxine 50 MCG TAB PO SCH (12:07)
[2017-09-17] MEDS: Multivitamin Vitamin B Complex (Nephro-Vite) Tab PO SCH (12:07)
[2017-09-17] MEDS: Pantoprazole 20 mg EC Tab PO SCH (12:07)
[2017-09-17] MEDS: POLYETHYLENE GLYCOL 3350 17 GM/Dose PACKET PO SCH ×3 (12:07→17:48)
--- NOTE | 2017-09-17 13:48 | PN ---
DATE: 09/17/2017 SUBJECTIVE: The patient is seen in the dialysis unit. She is awake. She is alert. She complains of not feeling well. She complains of difficulty breathing. She is completing dialysis, 2500 mL of fluid was removed. PHYSICAL EXAMINATION: GENERAL: Elderly lady lying in bed. VITAL SIGNS: Blood pressure 121/43, heart rate 85, respiratory rate 18, temperature 98. HEENT: Normocephalic, atraumatic, positive pallor. NECK: Supple, no JVD. LUNGS: Bilateral equal air entry, bilaterally equal expansion. CARDIAC: S1 and S2, regular rate and rhythm, no murmur, no rub. ABDOMEN: Soft, nondistended, nontender, bowel sounds present. EXTREMITIES: No lower extremity edema. INTAKE AND OUTPUT: Not charted. LABORATORY DATA: WBC 4.4, hemoglobin 8.1, hematocrit 25, platelets 89. Sodium 133, potassium 5.3, chloride 94, CO2 27, BUN 42, creatinine 4.7, glucose 138, calcium 8, phosphorus 3.5, magnesium 1.9, albumin 3. MEDICATIONS: List reviewed. ASSESSMENT: 1. Decompensated congestive heart failure, edema. 2. Shortness of breath. 3. Coronary artery disease, paroxysmal atrial fibrillation, congestive heart failure. 4. End-stage renal disease. 5. Severe anemia, thrombocytopenia. 5. Secondary hyperparathyroidism. PLAN: 1. Transfuse 1 unit of PRBC tomorrow, blood not ready today. 2. We will do ultrafiltration tomorrow. 3. Physical therapy. 4. Continue current meds. Barbi Linares MD
--- NOTE | 2017-09-17 17:30 | PN ---
DATE: 09/17/2017 SUBJECTIVE: Margo Uriarte was seen. The wound is stable. MRSA grew last admission several days ago. We will repeat the culture. Presently is not on antibiotics, would prefer to have her on oral anti-strep drug. The MRSA from the is sensitive also to Cipro, but resistant to Bactrim, so my feeling would be to start her on Cipro. Edwin Kelley MD
--- NOTE | 2017-09-18 00:32 | PN ---
DATE: 09/17/2017 SUBJECTIVE: Patient is in dialysis this morning, feeling more comfortable after having dialysis. Staff relates there were no particular problems. She states that they took 2.5 L of volume off. PHYSICAL EXAMINATION: VITAL SIGNS: The temp is 97.1, her pulse is 75, blood pressure is 119/47. GENERAL: She is alert and oriented x3. LUNGS: Show diminished breath sounds at the bases. HEART: S1 and S2 rhythm. ABDOMEN: Soft with positive bowel sounds. EXTREMITIES: Show edema. LABORATORY DATA: Shows a WBC of 4.4; RBC 8.59; hemoglobin 8.1; hematocrit 25; platelet count 89,000. Chemistry shows sodium of 133; potassium 5.3; chloride 94; the BUN is 42; the creatinine is 4.7; blood sugar was 138, this is pre-dialysis. PLAN: The patient is currently being followed by Surgery status post I&D of a MRSA infected left perineal wound. She is also being followed by Nephrology for her chronic renal disease and by Cardiology for decompensated CHF. She will be scheduled for blood transfusion when the blood is available. She will continue on her thyroid supplementation medication and we will follow up the patient's labs. Shavonne Ascencio MD
[2017-09-18 07:51] LABS: HEMOGLOBIN 7.9 g/dL (12.0-16.0)
[2017-09-18] MEDS: Insulin Reg-LOW-Coverage SC SCH ×4 (08:11→22:04)
[2017-09-18] MEDS: POLYETHYLENE GLYCOL 3350 17 GM/Dose PACKET PO SCH ×2 (08:40→17:49)
[2017-09-18] MEDS: Multivitamin Vitamin B Complex (Nephro-Vite) Tab PO SCH (08:42)
[2017-09-18] MEDS: Pantoprazole 20 mg EC Tab PO SCH (12:40)
[2017-09-18] MEDS: Levothyroxine 50 MCG TAB PO SCH (12:42)
--- NOTE | 2017-09-18 14:01 | PN ---
DATE: 09/18/2017 SUBJECTIVE: The patient is currently in dialysis, receiving dialysis and she is also receiving a blood transfusion. PHYSICAL EXAMINATION: VITAL SIGNS: Show a temp of 98, her blood pressure is 125/56, respiratory rate is 18, pulse is 61. LUNGS: Show diminished breath sounds at the bases. HEART: An S1 and S2 rhythm. ABDOMEN: Soft, scaphoid, positive bowel sounds. EXTREMITIES: Show decreased edema. LABORATORY DATA: Microbiological studies show a culture from the groin showing gram-positive cocci and gram-negative rods. Laboratory data showed a hemoglobin of 7.9, hematocrit 24.8. Random blood sugar was 185. ASSESSMENT AND PLAN: 1. The patient will receive a blood transfusion as per Nephrology, probably. 2. She will receive dialysis as well. The patient has been seen by Surgery for her wound. We will get Infectious Disease's input. 3. She is being followed by Cardiology for her decompensated congestive heart failure. Shavonne Ascencio MD
--- NOTE | 2017-09-18 15:45 | PN ---
DATE: 09/18/2017 SUBJECTIVE: The patient is currently seen on 2-R. She appears to be comfortable. She is status post an extra dialysis treatment today receiving 2 units of packed red blood cells. Of note, the patient's groin wound is positive for Gram-positive cocci and Gram-negative rods. The patient had been on antibiotic therapy, status post incision and drainage of a left groin medial upper thigh abscess. MEDICATIONS: Medication list reviewed. The patient is currently on aspirin, Colace, insulin, Imdur, Lopressor, MiraLax, Nephro-Emiliano, Neurontin, Norvasc, PhosLo, Protonix, Synthroid, and TriCor. OBJECTIVE: INTAKE/OUTPUT: Intake 1360. Output hemodialysis. VITAL SIGNS: Blood pressure 109/42, temperature 98.7, respiratory rate 16 with a pulse of 78. HEENT: Normocephalic, atraumatic. Conjunctivae pale. Sclerae nonicteric. NECK: Supple. No neck vein distention. CHEST: Clear to auscultation and percussion. No rales, rhonchi, or wheezing. CARDIOVASCULAR: Shows a regular rate and rhythm with MR/TR. Diminished lower extremity pulses. Positive left upper extremity AV fistula. ABDOMEN: Soft. Bowel sounds normal. No rebound, guarding, or masses. EXTREMITIES: Show a Band-Aid which is dry and intact over the left upper medial thigh groin area with no drainage. LABORATORY DATA AND IMAGING: CBC from yesterday; hemoglobin 7.9, she is status post 2 units of packed red blood cells given today with an extra dialysis treatment, white blood cell count 4.4, and platelet count is 89,000. Chemistries: No chemistries from today. Yesterday's potassium was 5.3. BUN 42 with a creatinine of 4.7. Calcium was 8. Phosphorus controlled at 3.5. Magnesium is 1.9. Microbiology: Gram stains, wound cultures of the left groin abscess drainage area positive for Gram-positive cocci, Gram-negative rods. ASSESSMENT: 1. Status post congestive heart failure with severe anemia. The patient presently appears to be euvolemic. She had been transfused 2 units of packed red blood cells earlier today. Her symptoms have resolved. 2. Status post recent incision and drainage of the left groin medial upper thigh abscess. The patient had completed a course of antibiotics during the last hospitalization. 3. History of end-stage renal disease. The patient has intermittent mild hyponatremia and hyperkalemia. She will continue four times a week dialysis. 4. History of [id number] diabetes mellitus. The patient will continue insulin with reasonably good sugar control. 5. History of hypertension. Blood pressure is controlled on present medical therapy. 6. History of anemia. Status post transfusion 2 units of packed red blood cells. Hemoglobin should be in the 9 to 10 range. She will continue receiving maximum dose of Aranesp and IV iron per protocol. 7. History of secondary hyperparathyroidism, corrected calcium level was normal. Phosphorus level is controlled to 3.5. The patient will continue binder therapy and a renal diet. 8. History of hypothyroidism. The patient will continue thyroid replacement therapy. PLAN: 1. Continue Sunday, Sunday, and Sunday dialysis with extra dialysis on Sunday. Today's dialysis was only done because it was difficult to find a crossmatch that allow the patient to be transfused with yesterday's dialysis. 2. Continue to follow final cultures from the left groin abscess. 3. Continue to impress upon the patient the need to restrict p.o. fluids. 4. Continue to achieve appropriate ultrafiltration with dialysis treatments. 5. Continue thyroid replacement therapy. 6. Continue present blood pressure medication. 7. Continue cardiac meds. Buck Yanes MD
[2017-09-19 07:46] LABS: BASO # 0.01 K/mm3 (0.0-2.0); BASO % 0.2 % (0.0-3.0); EOS # 0.1 (0.0-0.7); EOS % 1.1 % (1.5-5.0); GRAN # 3.11 (1.4-6.5); LYMPH # 1.3 (1.2-3.4); LYMPH % 26.8 % (22.0-35.0); MEAN CELL VOLUME 94.2 fl (80.0-105.0); MEAN CORPUSCULAR HEMOGLOBIN 30.9 pg (25.0-35.0); MEAN CORPUSCULAR HGB CONC 32.8 g/dl (31.0-37.0); MEAN PLATELET VOLUME 9.1 fl (7.0-11.0); MONO # 0.3 (0.1-0.6); MONO % 5.9 % (1.0-6.0); RBC 3.43 10^6/uL (3.5-6.1); RED CELL DISTRIBUTION WIDTH 18.8 % (11.5-14.5); WHITE BLOOD COUNT 4.7 10^3/ul (4.5-11.0)
[2017-09-19 07:47] LABS: HEMOGLOBIN 10.6 g/dL (12.0-16.0)
[2017-09-19 07:56] LABS: ALB/GLOB RATIO 0.7 (1.1-1.8); ALBUMIN 3.2 g/dL (3.0-4.8); CALCIUM 8.1 mg/dL (8.4-10.5)
[2017-09-19] MEDS: Insulin Reg-LOW-Coverage SC SCH ×4 (08:05→21:38)
[2017-09-19] MEDS ORDERED: Darbepoetin Alfa 100 mcg/ml Inj IVP ONE (08:57)
[2017-09-19] MEDS: POLYETHYLENE GLYCOL 3350 17 GM/Dose PACKET PO SCH ×2 (11:48→17:35)
[2017-09-19] MEDS: Levothyroxine 50 MCG TAB PO SCH (11:50)
[2017-09-19] MEDS: Multivitamin Vitamin B Complex (Nephro-Vite) Tab PO SCH (11:50)
[2017-09-19] MEDS: Pantoprazole 20 mg EC Tab PO SCH (11:50)
[2017-09-19] MEDS: Meropenem 500 MG in Sodium Chloride 0.9% 50 ML IVPB SCH (12:18)
--- NOTE | 2017-09-19 14:42 | CP.PCM.CON ---
History of Present Illness - History of Present Illness History of Present Illness: 82 year old female with PMH of HTN, DM, CAD with chronic CHF, ESRD on HD was recently admitted in [facility] for left groin abscess which was drained. She had completed course of antibiotics and was doing well but came back this time complaining of SOB while she was having dialysis. She denies cough, no headache or dizziness, no fever or chills, no nausea or vomiting, no chest pain, no sore throat, no rhinorrhea, no abdominal pain, no diarrhea, no dysuria. She is still in need of wound care to the left groin and Infectious Diseases consult is requested to further evaluate and manage. Review of Systems - Review of Systems All systems: reviewed and no additional remarkable complaints except (as per HPI ) Past Patient History - Infectious Disease Hx of Infectious Diseases: C.diff - Tetanus Immunizations Tetanus Immunization: Unknown - Past Medical History & Family History Past Medical History?: Yes - Past Social History Smoking Status: Never Smoked - CARDIAC Hx Congestive Heart Failure: Yes Hx Hypertension: Yes - PULMONARY Hx Chronic Obstructive Pulmonary Disease (COPD): Yes - NEUROLOGICAL Hx Neurological Disorder: Yes (numbnes/tingling left leg and ft) Hx Dizziness: Yes - HEENT Hx HEENT Problems: Yes Hx Cataracts: Yes (b/l sx) - RENAL Hx Chronic Kidney Disease: Yes Hx Dialysis: Yes (mwfs, left arm av shunt) Hx Renal Failure: Yes - ENDOCRINE/METABOLIC Hx Hypothyroidism: Yes - HEMATOLOGICAL/ONCOLOGICAL Hx Blood Disorders: Yes Hx Anemia: Yes - INTEGUMENTARY Hx Dermatological Problems: No Other/Comment: L arm shunt has dsg, excellent bruit at site - MUSCULOSKELETAL/RHEUMATOLOGICAL Hx Rheumatoid Arthritis: Yes (On HD) - GASTROINTESTINAL Hx Gastrointestinal Disorders: Yes (POOR APPETITE,GERD,DIVERTICULITIS,RECTAL BLEED. H/O C DIFF.) Other/Comment: CHOLELITHIASIS - GENITOURINARY/GYNECOLOGICAL Hx Genitourinary Disorders: Yes (VRE IN THE URINE.OLIGURIA.ESRD ON HD) - PSYCHIATRIC Hx Psychophysiologic Disorder: Yes Hx Anxiety: Yes Hx Depression: Yes Hx Substance Use: No - SURGICAL HISTORY Hx Coronary Stent: Yes Hx Hysterectomy: Yes Hx Orthopedic Surgery: Yes (left hip replacement) Other/Comment: desi av shunt - ANESTHESIA Hx Anesthesia: Yes Hx Anesthesia Reactions: No Hx Malignant Hyperthermia: No Meds Allergies/Adverse Reactions: Allergies Allergy/AdvReac Type Severity Reaction Status Date / Time ceftriaxone Allergy ITCHING Verified 09/15/17 16:28 - Medications Medications: Current Medications Amlodipine Besylate (Norvasc) 5 mg PO DAILY [facility] Last Admin: 09/18/17 10:41 Dose: Not Given Aspirin (Aspirin Chewable) 81 mg PO 0800 [facility] Last Admin: 09/18/17 12:39 Dose: 81 mg Calcium Acetate (Phoslo) 667 mg PO WM [facility] Last Admin: 09/18/17 17:48 Dose: 667 mg Docusate Sodium (Colace) 100 mg PO DAILY [facility] Last Admin: 09/18/17 12:39 Dose: 100 mg Fenofibrate (Tricor) 145 mg PO DAILY [facility] Last Admin: 09/18/17 12:39 Dose: 145 mg Gabapentin (Neurontin) 100 mg PO [facility] PRN Reason: Protocol Last Admin: 09/18/17 22:04 Dose: 100 mg Insulin Human Regular (Humulin R Low) 0 units SC [facility] PRN Reason: Protocol Last Admin: 09/19/17 08:05 Dose: Not Given Isosorbide Mononitrate (Imdur Er) 30 mg PO DAILY [facility] Last Admin: 09/18/17 12:39 Dose: 30 mg Levothyroxine Sodium (Synthroid) 50 mcg PO ACB [facility] Last Admin: 09/18/17 12:42 Dose: 50 mcg Metoprolol Tartrate (Lopressor) 25 mg PO BRKDIN [facility] Last Admin: 09/18/17 17:48 Dose: 25 mg Pantoprazole Sodium (Protonix Ec Tab) 20 mg PO DAILY [facility] Last Admin: 09/18/17 12:40 Dose: 20 mg Polyethylene Glycol (Miralax) 17 gm PO BID [facility] Last Admin: 09/18/17 17:49 Dose: 17 gm Vitamin B Complex/Vit C/Folic Acid (Nephro-Emiliano) 1 tab PO 0800 [facility] Last Admin: 09/18/17 08:42 Dose: Not Given Physical Exam - Constitutional Appears: Chronically Ill - Head Exam Head Exam: NORMAL INSPECTION - ENT Exam ENT Exam: Mucous Membranes Moist - Neck Exam Neck exam: Negative for: Meningismus - Respiratory Exam Respiratory Exam: Decreased Breath Sounds - Cardiovascular Exam Cardiovascular Exam: +S1, +S2 - GI/Abdominal Exam GI & Abdominal Exam: Soft. absent: Tenderness - Extremities Exam Additional comments: left groin with dressings in place Results - Vital Signs Recent Vital Signs: Last Vital Signs Temp 98.5 F 09/19/17 06:00 Pulse 65 09/19/17 06:00 Resp 18 09/19/17 06:00 BP 127/45 L 09/19/17 06:00 Pulse Ox 100 09/19/17 06:00 - Labs Result Diagrams: 09/19/17 07:30 09/19/17 07:30 Labs: Laboratory Results - last 24 hr 09/18/17 09/18/17 09/18/17 11:38 17:13 22:01 WBC RBC Hgb Hct MCV MCH MCHC RDW Plt Count MPV Gran % Lymph % (Auto) [place] % (Auto) Eos % (Auto) Baso % (Auto) Gran # Lymph # (Auto) [place] # (Auto) Eos # (Auto) Baso # (Auto) Sodium Potassium Chloride Carbon Dioxide Anion Gap BUN Creatinine Est GFR ( Amer) Est GFR (Non-Af Amer) POC Glucose (mg/dL) 185 H 73 168 H Random Glucose Calcium Phosphorus Magnesium Total Bilirubin AST ALT Alkaline Phosphatase Total Protein Albumin Globulin Albumin/Globulin Ratio 09/19/17 09/19/17 07:30 07:30 WBC 4.7 RBC 3.43 L Hgb 10.6 L D Hct 32.3 L MCV 94.2 MCH 30.9 MCHC 32.8 RDW 18.8 H Plt Count 76 L MPV 9.1 Gran % 66.0 Lymph % (Auto) 26.8 [place] % (Auto) 5.9 Eos % (Auto) 1.1 L Baso % (Auto) 0.2 Gran # 3.11 Lymph # (Auto) 1.3 [place] # (Auto) 0.3 Eos # (Auto) 0.1 Baso # (Auto) 0.01 Sodium 134 Potassium 4.5 Chloride 95 L Carbon Dioxide 28 Anion Gap 15 BUN 22 H Creatinine 2.8 H Est GFR ( Amer) 20 Est GFR (Non-Af Amer) 16 POC Glucose (mg/dL) Random Glucose 126 H Calcium 8.1 L Phosphorus 3.1 Magnesium 1.8 Total Bilirubin 0.7 AST 32 ALT 14 Alkaline Phosphatase 86 Total Protein 7.6 Albumin 3.2 Globulin 4.4 Albumin/Globulin Ratio 0.7 L Assessment & Plan - Assessment and Plan (Free Text) Plan: Assessment history of left perineal abscess S/P I and D, grew MRSA and Klebsiella - now still with residual skin and skin structure infection, growing MSSA and E. coli history of sepsis due to E. 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 diff. associated diarrhea S/P severe sepsis with acute sigmoid diverticulitis and acute cholecystitis history of acute NSTEMI history of sepsis due to acute descending colon diverticulitis and bilateral lobe healthcare-associated pneumonia history of healthcare-associated pneumonia (right upper lobe, bilateral lower lobes) HTN DM CAD with chronic CHF ESRD on HD Plan started Merrem and will follow up Surgery recommendations - target a short course of antibiotics (5-7 days)
--- NOTE | 2017-09-19 16:12 | PN ---
DATE: 09/19/2017 SUBJECTIVE: The patient is seen lying in bed. She is awake. She is alert. She complains of being very weak. She complains of being tired. She is just coming back from dialysis. PHYSICAL EXAMINATION: GENERAL: Elderly lady, lying in bed. VITAL SIGNS: Blood pressure , heart rate 75, respiratory rate 18, temperature 98.2. HEENT: Normocephalic, atraumatic, positive pallor. NECK: Supple, no JVD. LUNGS: Bilateral equal air entry, bilateral equal expansion, no rales. CARDIAC: S1 and S2, regular rate and rhythm, no murmur, no rub. ABDOMEN: Soft, nondistended, nontender, bowel sounds present. EXTREMITIES: Trace lower extremity edema. INTAKE AND OUTPUT: Not charted. LABORATORY DATA: WBC 4.7, hemoglobin 10.6, hematocrit 32, platelets 76. Sodium 134, potassium 4.5, chloride 95, CO2 of 28, BUN 22, creatinine 2.8, glucose 126. Wound culture, Staph aureus. CURRENT MEDICATIONS: Aspirin, Colace, insulin, Imdur, Lopressor, meropenem 500 daily started today, MiraLax, gabapentin, PhosLo, Norvasc, Protonix, Synthroid, TriCor. ASSESSMENT: 1. Status post decompensated congestive heart failure. 2. Gram-positive cocci from left groin abscess culture. 3. End-stage renal disease. 4. Anemia of chronic kidney disease, status post blood transfusion. 5. [id number] diabetes mellitus. 6. Coronary artery disease. 7. Chronic fatigue. PLAN: 1. Antibiotics as per ID recommendations. 2. Stable dialysis today. 3. Physical therapy. 4. Anemia, now corrected. Barbi Linares MD
--- NOTE | 2017-09-19 18:20 | PN ---
DATE: 09/19/2017 SUBJECTIVE: This is an 82-year-old female on dialysis four times a week. Nursing staff relates that there were no particular problems during the night. PHYSICAL EXAMINATION VITAL SIGNS: Her temperature is 98.2, her blood pressure is 114/35, respiratory rate is 18 and pulse is 75. GENERAL: She is alert and oriented x3. LUNGS: Have diminished breath sounds at the bases. HEART: S1 and S2 rhythm. ABDOMEN: Soft with positive bowel sounds. EXTREMITIES: Show no evidence of edema. LABORATORY DATA: Shows WBC of 4.7, RBC of 3.43, hemoglobin 10.6, hematocrit 32.3, platelet count is 76,000. Chemistry shows sodium of 134, potassium 4.5, chloride 95, BUN 22, the creatinine is 2.8. The random blood sugar is 126. ASSESSMENT AND PLAN: The patient is being followed by Infectious Disease as a culture of a wound in the left perineal area has been positive for Staphylococcus aureus and Escherichia coli. She is being followed by Renal for her chronic renal failure, chronic anemia. She is status post transfusion of blood. She will be followed by Surgery for wound care management. She is also being followed by Cardiology for her decompensated congestive heart failure. We will continue current level of supportive care. We will request Psychiatry evaluation. The patient has expressed an interest in speaking to someone regarding her current medical and social situation. Shavonne Ascencio MD
[2017-09-20] MEDS: Insulin Reg-LOW-Coverage SC SCH ×4 (07:30→22:17)
[2017-09-20] MEDS: Multivitamin Vitamin B Complex (Nephro-Vite) Tab PO SCH (08:23)
[2017-09-20] MEDS: Levothyroxine 50 MCG TAB PO SCH (08:23)
[2017-09-20] MEDS: Meropenem 500 MG in Sodium Chloride 0.9% 50 ML IVPB SCH ×2 (09:57→12:20)
[2017-09-20] MEDS: POLYETHYLENE GLYCOL 3350 17 GM/Dose PACKET PO SCH ×2 (09:57→17:28)
[2017-09-20] MEDS: Pantoprazole 20 mg EC Tab PO SCH (10:35)
--- NOTE | 2017-09-20 11:30 | PN ---
DATE: 09/20/2017 SUBJECTIVE: An 82-year-old female on telemetry. This morning, the patient states that she feels a little bit better, but she is fatigued. She is reported by the nurses as having no particular problems during the night. PHYSICAL EXAMINATION: VITAL SIGNS: Her blood pressure is 129/46, her temp is 98, her pulse is 67, her oxygen sat is 100% reported on her nasal oxygen 2 L. GENERAL: The patient is alert and oriented x3. LUNGS: Show diminished breath sounds at the bases. HEART: An S1 and S2 rhythm. Grade II/ systolic murmur. ABDOMEN: Soft, but positive bowel sounds. EXTREMITIES: Show no evidence of edema. There is a dialysis access catheter in the left arm. LABORATORY DATA: Her blood sugar this morning was 173. ASSESSMENT AND PLAN: 1. The patient is on chronic dialysis 4 times a week, she is being followed by Nephrology. She came in with decompensated congestive heart failure and is being followed by Cardiology as well. 2. She has been found to have an infection in the left perineal area growing Escherichia coli and has been placed on meropenem by Infectious Disease. 3. The wound care will be provided by the surgical team, Dr. Kelley, the attending. 4. She has been advised to work with physical therapy as best as she can. 5. Psychiatry consult has been requested to discuss the patient's current medical status, her emotional state regarding the clinical aspects of her medical problems and her quality of life issues. We will continue to monitor the patient closely. Family is aware of her clinical status. Shavonne Ascencio MD
--- NOTE | 2017-09-20 13:33 | CP.PCM.PN ---
Subjective - Date & Time of Evaluation Date of Evaluation: 09/20/17 Time of Evaluation: 09:40 - Subjective Subjective: No fevers, less pain in the right groin, no SOB currently. Objective - Vital Signs/Intake and Output Vital Signs (last 24 hours): Temp Pulse Resp BP Pulse Ox 98.2 F 67 18 119/48 L 100 09/20/17 05:56 09/20/17 10:00 09/20/17 05:56 09/20/17 12:00 09/20/17 05:56 Intake and Output: 09/20/17 09/20/17 06:59 18:59 Intake Total 240 Output Total 375 Balance -135 - Medications Medications: Current Medications Amlodipine Besylate (Norvasc) 5 mg PO DAILY [facility] Last Admin: 09/20/17 09:56 Dose: 5 mg Aspirin (Aspirin Chewable) 81 mg PO 0800 [facility] Last Admin: 09/20/17 08:23 Dose: 81 mg Calcium Acetate (Phoslo) 667 mg PO WM [facility] Last Admin: 09/20/17 12:20 Dose: 667 mg Collagenase (Santyl) 0 gm TOP DAILY [facility] Docusate Sodium (Colace) 100 mg PO DAILY [facility] Last Admin: 09/20/17 09:56 Dose: 100 mg Fenofibrate (Tricor) 145 mg PO DAILY [facility] Last Admin: 09/20/17 09:56 Dose: 145 mg Gabapentin (Neurontin) 100 mg PO HS [facility] PRN Reason: Protocol Last Admin: 09/19/17 21:35 Dose: 100 mg Meropenem 500 mg/ Sodium (Chloride) 50 mls @ 100 mls/hr IVPB Q24H [facility] PRN Reason: Protocol Stop: 09/26/17 11:16 Last Admin: 09/20/17 12:20 Dose: Not Given Insulin Human Regular (Humulin R Low) 0 units SC ACHS [facility] PRN Reason: Protocol Last Admin: 09/20/17 12:20 Dose: Not Given Isosorbide Mononitrate (Imdur Er) 30 mg PO DAILY [facility] Last Admin: 09/20/17 09:56 Dose: 30 mg Levothyroxine Sodium (Synthroid) 50 mcg PO ACB [facility] Last Admin: 09/20/17 08:23 Dose: 50 mcg Metoprolol Tartrate (Lopressor) 25 mg PO BRKDIN [facility] Last Admin: 09/20/17 08:24 Dose: 25 mg Pantoprazole Sodium (Protonix Ec Tab) 20 mg PO DAILY [facility] Last Admin: 09/20/17 10:35 Dose: 20 mg Polyethylene Glycol (Miralax) 17 gm PO BID [facility] Last Admin: 09/20/17 09:57 Dose: 17 gm Vitamin B Complex/Vit C/Folic Acid (Nephro-Emiliano) 1 tab PO 0800 [facility] Last Admin: 09/20/17 08:23 Dose: 1 tab - Labs Labs: 09/19/17 07:30 09/19/17 07:30 PT 13.2 SECONDS (9.4-12.5) H 09/15/17 16:50 INR 1.15 (0.93-1.08) H 09/15/17 16:50 APTT 32.4 Seconds (25.1-36.5) 09/15/17 16:50 - Constitutional Appears: Chronically Ill - Head Exam Head Exam: NORMAL INSPECTION - Respiratory Exam Respiratory Exam: Decreased Breath Sounds - Cardiovascular Exam Cardiovascular Exam: +S1, +S2 - GI/Abdominal Exam GI & Abdominal Exam: Soft. absent: Tenderness Assessment and Plan - Assessment and Plan (Free Text) Plan: Assessment history of left perineal abscess S/P I and D, grew MRSA and Klebsiella - now still with residual skin and skin structure infection, growing MSSA and E. coli history of sepsis due to E. 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 diff. associated diarrhea S/P severe sepsis with acute sigmoid diverticulitis and acute cholecystitis history of acute NSTEMI history of sepsis due to acute descending colon diverticulitis and bilateral lobe healthcare-associated pneumonia history of healthcare-associated pneumonia (right upper lobe, bilateral lower lobes) HTN DM CAD with chronic CHF ESRD on HD Plan continue Merrem day 2 and will follow up further Surgery recommendations - target a short course of antibiotics (5-7 days)
[2017-09-20] MEDS: Collagenase 250 Units/gm Ointment(30 gm) TOP SCH (16:23)
--- NOTE | 2017-09-20 17:47 | PN ---
DATE: 09/20/2017 SUBJECTIVE: The wound was examined in the left inner thigh. It is healing remarkably. There is a little bit of slough inside and safety will be ordered. The induration around this is mostly resolved. The culture now E. coli. It was in the past MRSA, which is currently not growing. Plan will be conservative management with Santyl once a day. This seems like it is healing nicely and we except to be able to stop that soon. Edwin Kelley MD
--- NOTE | 2017-09-21 01:39 | PN ---
DATE: 09/20/2017 SUBJECTIVE: The patient is seen sitting in bed. She is awake, she is alert. She is eating lunch. She complains of difficulty getting up. She complains of difficulty standing on her feet, although she walked earlier with the therapist. She denies any chest pain. She denies any shortness of breath. PHYSICAL EXAMINATION: GENERAL: Elderly lady sitting in bed. VITAL SIGNS: Blood pressure 110/48, heart rate 87, respiratory rate 18, temperature 98.2. HEENT: Normocephalic, atraumatic, positive pallor. NECK: Supple, no JVD. LUNGS: Bilateral equal air entry, equal expansion. CARDIAC: S1 and S2, regular rate and rhythm, no murmur, no rub. ABDOMEN: Soft, nondistended, nontender, bowel sounds present. EXTREMITIES: No lower extremity edema. INTAKE AND OUTPUT: Not charted. LABORATORY DATA: WBC 4.7, hemoglobin 10.6, hematocrit 32, platelet 76. Sodium 134, potassium 4.5, chloride 95, CO2 of 28, BUN 22, creatinine 2.8, glucose 126. MEDICATIONS: List reviewed. ASSESSMENT: 1. Status post decompensated congestive heart failure. 2. Status post edema. 3. Coronary artery disease, congestive heart failure, paroxysmal atrial fibrillation. 4. Non-insulin dependent diabetes mellitus. 5. Hypertension. 6. End-stage renal disease. 7. Anemia of chronic kidney disease. 8. Groin abscess. PLAN: 1. Stable dialysis yesterday. 2. Anemia much improved after 2 units of blood transfusion. 3. Walking with physical therapy. 4. Continue antibiotics as per Infectious Disease recommendations. 5. Discharge planning. Barbi Linares MD
[2017-09-21] MEDS: Multivitamin Vitamin B Complex (Nephro-Vite) Tab PO SCH (08:00)
[2017-09-21] MEDS: Levothyroxine 50 MCG TAB PO SCH (08:00)
[2017-09-21] MEDS: Insulin Reg-LOW-Coverage SC SCH ×4 (08:00→21:33)
[2017-09-21] MEDS: Collagenase 250 Units/gm Ointment(30 gm) TOP SCH (08:42)
[2017-09-21 10:50] LABS: EOS % 0.7 % (1.5-5.0); GRAN # 3.2 (1.4-6.5); GRAN % 75.3 % (50.0-68.0); HEMOGLOBIN 10.3 g/dL (12.0-16.0); LYMPH # 0.7 (1.2-3.4); LYMPH % 17.4 % (22.0-35.0); MEAN CELL VOLUME 95.5 fl (80.0-105.0); MEAN CORPUSCULAR HEMOGLOBIN 30.7 pg (25.0-35.0); MEAN CORPUSCULAR HGB CONC 32.2 g/dl (31.0-37.0); MEAN PLATELET VOLUME 9.4 fl (7.0-11.0); MONO # 0.3 (0.1-0.6); MONO % 6.6 % (1.0-6.0); RBC 3.35 10^6/uL (3.5-6.1); RED CELL DISTRIBUTION WIDTH 18.8 % (11.5-14.5); WHITE BLOOD COUNT 4.3 10^3/ul (4.5-11.0)
--- NOTE | 2017-09-21 10:53 | CON ---
DATE: IDENTIFICATION: The patient is an 82-year-old white female presently admitted in pulmonary distress and too appears depressed. I had seen this patient several years ago (2013). At the time of this dictation, the computer for whatever reason is not allowing me to get in or is doing so with unexplained difficulty. The patient had been referred from dialysis after reportedly complaining about chest discomfort and swelling in her feet. She has a past medical history of diverticulosis, diverticulitis, recent perineal wound infection with MRSA treated with IV antibiotics, carotid disease, hyperlipidemia, diabetes mellitus, hypertension, degenerative arthritis, congestive heart failure, paroxysmal atrial fibrillation, and a non-STEMI in the past. She indicates that she has one son who lives above her and who helps her care for her who appears demented and another son who lives in the area. When I had seen her in 05/2014, she had a C. difficile infection and had been on antibiotics. At that time, she was also grappling with the increasingly demented form of disorder than her had been experiencing along with aberrant behavior with outbursts. difficulty to caring for her and trouble sleeping, although she denied feelings of depression. At that time, she had expressed some concern about her younger son who was and remarried and was living in their [place], [place], with the patient having limited contact with him. At that time, she was diagnosed with having an adjustment disorder with features of depression and anxiety. At this time, the patient appears to be alert, mildly disoriented, sometimes hard to understand because of her accent, which to this examiner appears to be Arabic, but was presumably [place]guillan. The patient's history appear to be somewhat vague. She is being maintained on no psychotropic medication at this time. Her medications include Neurontin 100 mg at bedtime, Norvasc 5 mg daily, PhosLo, Protonix 20 mg daily, Santyl applied daily, Synthroid 50 mcg daily, TriCor 145 mg daily. A CBC and differential yesterday showed low hemoglobin 10.6, hematocrit 32.3, RBC 3.3. Blood glucose earlier today was 138. Blood pressure 110/48, pulse 67, temperature 98.1, respiratory rate 19. I will continue to monitor this patient to assess for possible depressive features and a possible efficacy to her of an antidepressant or mood stabilizer. Thank you for this consultation. CHARLIE Rivera PhD [facility] # [id number]
[2017-09-21] MEDS: POLYETHYLENE GLYCOL 3350 17 GM/Dose PACKET PO SCH ×2 (11:09→17:16)
[2017-09-21] MEDS: Meropenem 500 MG in Sodium Chloride 0.9% 50 ML IVPB SCH ×2 (11:09→14:29)
[2017-09-21 11:10] LABS: ALB/GLOB RATIO 0.7 (1.1-1.8); ALBUMIN 3.1 g/dL (3.0-4.8)
[2017-09-21] MEDS: Pantoprazole 20 mg EC Tab PO SCH ×2 (11:10→17:16)
--- NOTE | 2017-09-21 15:01 | CP.PCM.PN ---
Subjective - Date & Time of Evaluation Date of Evaluation: 09/21/17 Time of Evaluation: 09:30 - Subjective Subjective: No fevers, no SOB at rest. Objective - Vital Signs/Intake and Output Vital Signs (last 24 hours): Temp Pulse Resp BP Pulse Ox 97.8 F 83 18 125/84 97 09/21/17 06:00 09/21/17 08:00 09/21/17 08:00 09/21/17 08:00 09/21/17 08:00 Intake and Output: 09/21/17 09/21/17 06:59 18:59 Intake Total 120 Balance 120 - Medications Medications: Current Medications Amlodipine Besylate (Norvasc) 5 mg PO DAILY [facility] Last Admin: 09/20/17 09:56 Dose: 5 mg Aspirin (Aspirin Chewable) 81 mg PO 0800 [facility] Last Admin: 09/21/17 08:00 Dose: 81 mg Calcium Acetate (Phoslo) 667 mg PO WM [facility] Last Admin: 09/21/17 08:00 Dose: 667 mg Collagenase (Santyl) 0 gm TOP DAILY [facility] Last Admin: 09/21/17 08:42 Dose: 1 tcp Docusate Sodium (Colace) 100 mg PO DAILY [facility] Last Admin: 09/20/17 09:56 Dose: 100 mg Fenofibrate (Tricor) 145 mg PO DAILY [facility] Last Admin: 09/20/17 09:56 Dose: 145 mg Gabapentin (Neurontin) 100 mg PO HS [facility] PRN Reason: Protocol Last Admin: 09/20/17 21:30 Dose: 100 mg Meropenem 500 mg/ Sodium (Chloride) 50 mls @ 100 mls/hr IVPB Q24H [facility] PRN Reason: Protocol Stop: 09/26/17 11:16 Last Admin: 09/20/17 12:20 Dose: Not Given Insulin Human Regular (Humulin R Low) 0 units SC ACHS [facility] PRN Reason: Protocol Last Admin: 09/21/17 08:00 Dose: Not Given Isosorbide Mononitrate (Imdur Er) 30 mg PO DAILY [facility] Last Admin: 09/20/17 09:56 Dose: 30 mg Levothyroxine Sodium (Synthroid) 50 mcg PO ACB [facility] Last Admin: 09/21/17 08:00 Dose: 50 mcg Metoprolol Tartrate (Lopressor) 25 mg PO BRKDIN [facility] Last Admin: 09/21/17 08:03 Dose: Not Given Pantoprazole Sodium (Protonix Ec Tab) 20 mg PO DAILY [facility] Last Admin: 09/20/17 10:35 Dose: 20 mg Polyethylene Glycol (Miralax) 17 gm PO BID [facility] Last Admin: 09/20/17 17:28 Dose: Not Given Vitamin B Complex/Vit C/Folic Acid (Nephro-Emiliano) 1 tab PO 0800 [facility] Last Admin: 09/21/17 08:00 Dose: 1 tab - Labs Labs: 09/19/17 07:30 09/19/17 07:30 PT 13.2 SECONDS (9.4-12.5) H 09/15/17 16:50 INR 1.15 (0.93-1.08) H 09/15/17 16:50 APTT 32.4 Seconds (25.1-36.5) 09/15/17 16:50 - Constitutional Appears: Chronically Ill - Head Exam Head Exam: NORMAL INSPECTION - Respiratory Exam Respiratory Exam: Decreased Breath Sounds - Cardiovascular Exam Cardiovascular Exam: +S1, +S2 - GI/Abdominal Exam GI & Abdominal Exam: Soft. absent: Tenderness Assessment and Plan - Assessment and Plan (Free Text) Plan: Assessment history of left perineal abscess S/P I and D, grew MRSA and Klebsiella - now still with residual skin and skin structure infection, growing MSSA and E. coli history of sepsis due to E. 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 diff. associated diarrhea S/P severe sepsis with acute sigmoid diverticulitis and acute cholecystitis history of acute NSTEMI history of sepsis due to acute descending colon diverticulitis and bilateral lobe healthcare-associated pneumonia history of healthcare-associated pneumonia (right upper lobe, bilateral lower lobes) HTN DM CAD with chronic CHF ESRD on HD Plan continue Merrem day 3 and will follow up further Surgery recommendations - target a short course of antibiotics (5-7 days) discussed with Dr. Ascencio
--- NOTE | 2017-09-21 15:18 | CP.PCM.PN ---
Subjective - Date & Time of Evaluation Date of Evaluation: 09/21/17 Time of Evaluation: 11:30 - Subjective Subjective: Case discussed with nursing. Chart reviewed. Patient and dialysis. Somewhat fretful. Not a very clear historian. Reportedly has some periods of confusion. Objective - Vital Signs/Intake and Output Vital Signs (last 24 hours): Temp Pulse Resp BP Pulse Ox 97.9 F 77 18 135/43 L 97 09/21/17 13:00 09/21/17 14:00 09/21/17 13:00 09/21/17 13:00 09/21/17 08:00 Intake and Output: 09/21/17 09/21/17 06:59 18:59 Intake Total 120 Balance 120 - Medications Medications: Current Medications Amlodipine Besylate (Norvasc) 5 mg PO DAILY [facility] Last Admin: 09/21/17 11:10 Dose: Not Given Aspirin (Aspirin Chewable) 81 mg PO 0800 [facility] Last Admin: 09/21/17 08:00 Dose: 81 mg Calcium Acetate (Phoslo) 667 mg PO WM [facility] Last Admin: 09/21/17 11:10 Dose: Not Given Collagenase (Santyl) 0 gm TOP DAILY [facility] Last Admin: 09/21/17 08:42 Dose: 1 tcp Docusate Sodium (Colace) 100 mg PO DAILY [facility] Last Admin: 09/21/17 11:09 Dose: Not Given Fenofibrate (Tricor) 145 mg PO DAILY [facility] Last Admin: 09/21/17 11:10 Dose: Not Given Gabapentin (Neurontin) 100 mg PO HS [facility] PRN Reason: Protocol Last Admin: 09/20/17 21:30 Dose: 100 mg Meropenem 500 mg/ Sodium (Chloride) 50 mls @ 100 mls/hr IVPB Q24H [facility] PRN Reason: Protocol Stop: 09/26/17 11:16 Last Admin: 09/21/17 14:29 Dose: 100 mls/hr Insulin Human Regular (Humulin R Low) 0 units SC ACHS [facility] PRN Reason: Protocol Last Admin: 09/21/17 11:09 Dose: Not Given Isosorbide Mononitrate (Imdur Er) 30 mg PO DAILY [facility] Last Admin: 09/21/17 11:09 Dose: Not Given Levothyroxine Sodium (Synthroid) 50 mcg PO ACB [facility] Last Admin: 09/21/17 08:00 Dose: 50 mcg Metoprolol Tartrate (Lopressor) 25 mg PO BRKDIN [facility] Last Admin: 09/21/17 08:03 Dose: Not Given Pantoprazole Sodium (Protonix Ec Tab) 20 mg PO DAILY [facility] Last Admin: 09/21/17 11:10 Dose: Not Given Polyethylene Glycol (Miralax) 17 gm PO BID [facility] Last Admin: 09/21/17 11:09 Dose: Not Given Vitamin B Complex/Vit C/Folic Acid (Nephro-Emiliano) 1 tab PO 0800 [facility] Last Admin: 09/21/17 08:00 Dose: 1 tab - Labs Labs: 09/21/17 10:30 09/21/17 10:30 PT 13.2 SECONDS (9.4-12.5) H 09/15/17 16:50 INR 1.15 (0.93-1.08) H 09/15/17 16:50 APTT 32.4 Seconds (25.1-36.5) 09/15/17 16:50 - Psychiatric Exam Psychiatric exam: Anxious Assessment and Plan - Assessment and Plan (Free Text) Assessment: Cassie somewhat fretful. Not outstandingly insightful. Not overtly psychotic or anxious or depressed. We'll continue to monitor with you
--- NOTE | 2017-09-21 19:53 | PN ---
DATE: 09/21/2017 SUBJECTIVE: An 82-year-old female currently in dialysis. Nursing staff related there were no particular problems. OBJECTIVE: VITAL SIGNS: Temperature is 97.9, pulse is 75, blood pressure is 135/43, oxygen sat is 97% on 2 L of nasal oxygen. GENERAL: Patient is alert and oriented x3. LUNGS: Show diminished breath sounds at the bases. HEART: Is in S1 and S2 rhythm with 2/6 systolic murmur. ABDOMEN: Soft with positive bowel sounds. EXTREMITIES: Show no evidence of edema. Has a left forearm dialysis access. LABORATORY DATA: WBC is 4.3, RBC is 3.35, hemoglobin 10.3, hematocrit 32, platelet count 74,000. Chemistries show a sodium of 136, potassium 3.4, chloride 95. BUN is 23, creatinine is 2.4. Random blood sugar is 111. Patient is currently receiving dialysis. She is being followed by Nephrology for her chronic renal disease, Cardiology for her decompensated CHF, and Infectious Disease and Surgery for left perineal wound infection. She is currently receiving meropenem and local wound care. RECOMMENDATIONS: By Infectious Disease is 7 days of IV antibiotics for an E. coli organism which is grown from the surgical wound site. So, continue on her dialysis four times a week and continue to be followed by Nephrology. Shavonne Ascencio MD
[2017-09-22] MEDS: Insulin Reg-LOW-Coverage SC SCH ×4 (07:30→22:00)
--- NOTE | 2017-09-22 09:30 | PN ---
DATE: 09/22/2017 SUBJECTIVE: The patient is currently seen on 5R. She is complaining of mild shortness of breath. She is scheduled for her fourth dialysis treatment today. The patient is status post transfusion of total of 2 units of packed red blood cells, her last hemoglobin was up to 10.3. Her groin abscess cultures were positive for E. coli. MEDICATIONS: Medication list reviewed. The patient is currently on aspirin, Colace, insulin, Imdur, Lopressor, meropenem, MiraLax, Nephro-Emiliano, Neurontin, Norvasc, PhosLo is on hold because of a low phosphorus level. Protonix, Santyl, Synthroid and TriCor. PHYSICAL EXAMINATION INTAKE/OUTPUT: Intake is 240, output not charted. VITAL SIGNS: Blood pressure 119/50, temperature 98.8, respiratory rate 18 with a pulse of 82. HEENT: Normocephalic, atraumatic. Conjunctivae pale. Sclerae nonicteric. NECK: Supple. No neck vein distention. CHEST: Clear to auscultation and percussion with no rales, rhonchi or wheezing. CARDIOVASCULAR: Shows a regular rate and rhythm with MR/TR. Positive left upper extremity AV fistula. Diminished lower extremity pulses bilaterally. ABDOMEN: Soft. Bowel sounds normal. No rebound, guarding or masses. EXTREMITIES: Show no drainage in the area of her left upper medial thigh groin area in an area of an I&D of an abscess. LABORATORY DATA AND IMAGING: CBC from yesterday, white blood cell count 4.3, hemoglobin 10.3, platelet count is 74,000. Chemistries from yesterday, potassium 3.4, BUN 23 with a creatinine of 2.4. Calcium 8 with an albumin of 3.1, corrects to normal. Phosphorus low at 1.8, hence phosphorus binders were put on hold. Glucose levels are acceptable. Microbiology positive for E. coli growing out of the groin abscess. ASSESSMENT: 1. Status post congestive heart failure with anemia. The patient received a total of 2 units of packed red blood cells. Hemoglobin is up to 10.3. She has subjective complaint of shortness of breath. There is no edema and there is no evidence for congestive heart failure clinically. 2. Status post incision and drainage of the left groin medial upper thigh abscess. The patient is currently on meropenem for E. coli growing out of the wound. 3. End-stage renal disease. The patient will continue four times a week dialysis. Potassium levels have been in the low normal range. 4. History of non-insulin dependant diabetes mellitus. The patient will continue insulin in the hospital. Sugar control has been acceptable. 5. History of hypertension. Blood pressure controlled. 6. Anemia. Status post 2 units of packed red blood cells. Hemoglobin is now in the 10-11 range. The patient will continue maximum dose of Aranesp and IV iron per protocol. 7. History of secondary hyperparathyroidism with decreased p.o. intake in the hospital. Phosphorus level is low. Binders were held. The patient nevertheless remains on a renal diet. 8. History of hypothyroidism. The patient will continue thyroid supplements. PLAN: 1. Continue four times a week dialysis. 2. Complete a course of antibiotics for E. coli growing out of her groin abscess. 3. Maximize Aranesp and transfuse on a p.r.n. basis. 4. Continue present thyroid medication, blood pressure medication and cardiac meds. Buck Yanes MD
[2017-09-22] MEDS: Pantoprazole 20 mg EC Tab PO SCH (11:50)
[2017-09-22] MEDS: Levothyroxine 50 MCG TAB PO SCH (11:50)
[2017-09-22] MEDS: Multivitamin Vitamin B Complex (Nephro-Vite) Tab PO SCH (11:50)
[2017-09-22] MEDS: POLYETHYLENE GLYCOL 3350 17 GM/Dose PACKET PO SCH ×2 (11:51→17:05)
[2017-09-22] MEDS: Meropenem 500 MG in Sodium Chloride 0.9% 50 ML IVPB SCH (11:51)
--- NOTE | 2017-09-22 15:05 | PN ---
DATE: 09/22/2017 SUBJECTIVE: Patient is resting comfortably in bed this morning. The nursing staff relates that there were no particular problems during the night. PHYSICAL EXAMINATION: VITAL SIGNS: Show temperature of 97.7, blood pressure is 111/59, pulse is 70, respiratory rate is 18. GENERAL: The patient is alert and oriented x3. LUNGS: Diminished breath sounds at the bases. HEART: S1, S2 rhythm. ABDOMEN: Soft with positive bowel sounds. EXTREMITIES: Showed no evidence of edema. She is on AV fistula for dialysis in her left forearm. ASSESSMENT AND PLAN: She is currently on IV antibiotics for a left perineal groin abscess, being followed by Infectious Disease. She is on dialysis four times a week. Being followed by Nephrology. She is receiving physical and occupational therapy. We will continue the current course of antibiotics at this time as per Infectious Disease. She is status post treatment of anemia with 2 units of packed red blood cells. Hemoglobin is up to 10.3. She was admitted with decompensated congestive heart failure, which is clinically improving. She has a history of hypothyroid, on thyroid supplementation. She has a history of non-insulin dependent diabetes, history of hypertension, blood pressure is controlled, history of secondary hyperparathyroidism. History of hypothyroid disease, end-stage renal disease. Continue current dialysis. Complete course of antibiotics. Transfuse on a p.r.n. basis with the use of Aranesp for anemia intermittently. Continue Synthroid supplementation and blood pressure medicines. Shavonne Ascencio MD
--- NOTE | 2017-09-22 15:19 | CP.PCM.PN ---
Subjective - Date & Time of Evaluation Date of Evaluation: 09/22/17 Time of Evaluation: 09:55 - Subjective Subjective: No fevers, not in distress. Objective - Vital Signs/Intake and Output Vital Signs (last 24 hours): Temp Pulse Resp BP Pulse Ox 97.7 F 70 18 111/59 L 100 09/22/17 06:00 09/22/17 06:00 09/22/17 06:00 09/22/17 06:00 09/22/17 06:00 Intake and Output: 09/22/17 09/22/17 06:59 18:59 Intake Total 240 Balance 240 - Medications Medications: Current Medications Amlodipine Besylate (Norvasc) 5 mg PO DAILY [facility] Last Admin: 09/22/17 11:59 Dose: Not Given Aspirin (Aspirin Chewable) 81 mg PO 0800 [facility] Last Admin: 09/22/17 11:53 Dose: 81 mg Calcium Acetate (Phoslo) 667 mg PO WM [facility] Last Admin: 09/21/17 11:10 Dose: Not Given Collagenase (Santyl) 0 gm TOP DAILY [facility] Last Admin: 09/21/17 08:42 Dose: 1 tcp Docusate Sodium (Colace) 100 mg PO DAILY [facility] Last Admin: 09/22/17 11:50 Dose: 100 mg Fenofibrate (Tricor) 145 mg PO DAILY [facility] Last Admin: 09/22/17 11:50 Dose: 145 mg Gabapentin (Neurontin) 100 mg PO HS [facility] PRN Reason: Protocol Last Admin: 09/21/17 21:34 Dose: 100 mg Meropenem 500 mg/ Sodium (Chloride) 50 mls @ 100 mls/hr IVPB Q24H [facility] PRN Reason: Protocol Stop: 09/26/17 11:16 Last Admin: 09/22/17 11:51 Dose: 100 mls/hr Insulin Human Regular (Humulin R Low) 0 units SC ACHS [facility] PRN Reason: Protocol Last Admin: 09/22/17 11:53 Dose: Not Given Isosorbide Mononitrate (Imdur Er) 30 mg PO DAILY [facility] Last Admin: 09/22/17 11:50 Dose: 30 mg Levothyroxine Sodium (Synthroid) 50 mcg PO ACB [facility] Last Admin: 09/22/17 11:50 Dose: 50 mcg Metoprolol Tartrate (Lopressor) 25 mg PO BRKDIN [facility] Last Admin: 09/22/17 11:58 Dose: Not Given Pantoprazole Sodium (Protonix Ec Tab) 20 mg PO DAILY [facility] Last Admin: 09/22/17 11:50 Dose: 20 mg Polyethylene Glycol (Miralax) 17 gm PO BID [facility] Last Admin: 09/22/17 11:51 Dose: 17 gm Vitamin B Complex/Vit C/Folic Acid (Nephro-Emiliano) 1 tab PO 0800 [facility] Last Admin: 09/22/17 11:50 Dose: 1 tab - Labs Labs: 09/21/17 10:30 09/21/17 10:30 PT 13.2 SECONDS (9.4-12.5) H 09/15/17 16:50 INR 1.15 (0.93-1.08) H 09/15/17 16:50 APTT 32.4 Seconds (25.1-36.5) 09/15/17 16:50 - Constitutional Appears: Chronically Ill - Head Exam Head Exam: NORMAL INSPECTION - Respiratory Exam Respiratory Exam: Decreased Breath Sounds - Cardiovascular Exam Cardiovascular Exam: +S1, +S2 - GI/Abdominal Exam GI & Abdominal Exam: Soft. absent: Tenderness Assessment and Plan - Assessment and Plan (Free Text) Plan: Assessment history of left perineal abscess S/P I and D, grew MRSA and Klebsiella - now still with residual skin and skin structure infection, growing MSSA and E. coli history of sepsis due to E. 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 diff. associated diarrhea S/P severe sepsis with acute sigmoid diverticulitis and acute cholecystitis history of acute NSTEMI history of sepsis due to acute descending colon diverticulitis and bilateral lobe healthcare-associated pneumonia history of healthcare-associated pneumonia (right upper lobe, bilateral lower lobes) HTN DM CAD with chronic CHF ESRD on HD Plan continue Merrem day 4 and will follow up further Surgery recommendations - target a short course of antibiotics (5-7 days) discussed with Dr. Ascencio previously
[2017-09-22] MEDS ORDERED: Lidocaine/Prilocaine 2.5%-2.5% Cream(30 gm) TOP SCH (16:15)
[2017-09-22] MEDS: Collagenase 250 Units/gm Ointment(30 gm) TOP SCH (21:26)
[2017-09-23] MEDS: Insulin Reg-LOW-Coverage SC SCH ×4 (08:56→23:18)
--- NOTE | 2017-09-23 09:22 | PN ---
DATE: 09/23/2017 SUBJECTIVE: The patient is currently seen sitting up in bed. She has just completed breakfast. She appears to be in no acute distress. She had her extra dialysis treatment yesterday with no related issues. The patient continues on IV antibiotic therapy for her left groin abscess. Her groin cultures were positive for E. coli. MEDICATIONS: Medication list reviewed. The patient is on aspirin, Colace, EMLA cream, insulin, Lopressor, meropenem, MiraLax, Nephro-Emiliano, Neurontin, Norvasc, PhosLo was on hold, Protonix, Santyl, Synthroid and TriCor. OBJECTIVE: INTAKE/OUTPUT: Intake 720, output dialysis. VITAL SIGNS: Blood pressure is 97/55, temperature 98.6, respiratory rate 20 with a pulse of 85. HEENT: Exam, normocephalic and atraumatic. Conjunctivae remain pale. Sclerae nonicteric. NECK: Supple. No neck vein distention. CHEST: Clear to auscultation and percussion with no rales, rhonchi or wheezing. CARDIOVASCULAR: Shows a regular rate and rhythm with MR/TR. Diminished lower extremity pulses bilaterally. ABDOMEN: Soft. Bowel sounds normal. No rebound, guarding or masses. EXTREMITIES: Show no drainage, redness or swelling around the I&D site for her left upper medial thigh groin abscess. Positive left upper extremity AV fistula. Positive thrill. Positive bruit. No lower extremity cyanosis, clubbing or edema. LABORATORY DATA AND IMAGING: No labs were done predialysis yesterday. Her last CBC from 09/21 showed a hemoglobin of 10.3 with a white blood cell count of 4.3 and a platelet count of 74,000. Her chemistries were also done on 09/21/2017. Potassium was 3.4, BUN 23 with a creatinine of 2.4. Glucose is 118. Calcium level was 8. Phosphorus level was low, hence binders were put on hold. Microbiology from 09/17: Wound culture from the abscess was positive for E. coli. ASSESSMENT: 1. Status post congestive heart failure. The patient appears to be euvolemic. She remains on four times a week dialysis. She received a total of two units of packed red blood cells. Hemoglobin is stable in the 10 to 11 range. Presently, no evidence for edema. No evidence for congestive heart failure. 2. Status post incision and drainage of the left groin abscess upper thigh abscess. The patient is completing a course of meropenem for Escherichia Coli growing out of the wound. 3. History of end-stage renal disease. Continue four times a week dialysis in light of her tendency to develop congestive heart failure and hypervolemia. 4. History of tmx-ydvynim-cotwnqyao diabetes mellitus. The patient will continue insulin in the hospital. Sugar control is acceptable. 5. History of hypertension. Blood pressure is in the low normal range. 6. History of anemia. Status post units of packed red blood cells. The patient will continue Aranesp and IV iron, on dialysis per protocol. 7. History of secondary hyperparathyroidism in light of her low phosphorus level. Binders are on hold. 8. History of hypothyroidism. The patient will continue thyroid supplements. PLAN: 1. Hemodialysis scheduled for tomorrow and four times a week. 2. As per infectious Disease, complete a full course of antibiotics for E. Coli growing out of her groin abscess. 3. Maximize Aranesp and continue IV Venofer per protocol. 4. Continue thyroid replacement therapy. 5. We will hold blood pressure medication for low blood pressure readings. Buck Yanes MD MTDD
[2017-09-23] MEDS: Multivitamin Vitamin B Complex (Nephro-Vite) Tab PO SCH (11:25)
[2017-09-23] MEDS: Levothyroxine 50 MCG TAB PO SCH (11:25)
[2017-09-23] MEDS: Pantoprazole 20 mg EC Tab PO SCH (11:25)
[2017-09-23] MEDS: Collagenase 250 Units/gm Ointment(30 gm) TOP SCH (11:26)
[2017-09-23] MEDS: POLYETHYLENE GLYCOL 3350 17 GM/Dose PACKET PO SCH ×2 (11:26→19:28)
[2017-09-23] MEDS: Meropenem 500 MG in Sodium Chloride 0.9% 50 ML IVPB SCH (11:27)
--- NOTE | 2017-09-23 13:34 | CP.PCM.PN ---
Subjective - Date & Time of Evaluation Date of Evaluation: 09/23/17 Time of Evaluation: 11:55 - Subjective Subjective: Comfortable in bed, no fevers. Objective - Vital Signs/Intake and Output Vital Signs (last 24 hours): Temp Pulse Resp BP Pulse Ox 98.6 F 85 20 97/55 L 100 09/23/17 06:00 09/23/17 06:00 09/23/17 06:00 09/23/17 06:00 09/23/17 06:00 Intake and Output: 09/23/17 09/23/17 06:59 18:59 Intake Total 720 Balance 720 - Medications Medications: Current Medications Amlodipine Besylate (Norvasc) 5 mg PO DAILY [facility] Last Admin: 09/22/17 11:59 Dose: Not Given Aspirin (Aspirin Chewable) 81 mg PO 0800 [facility] Last Admin: 09/22/17 11:53 Dose: 81 mg Calcium Acetate (Phoslo) 667 mg PO WM [facility] Last Admin: 09/21/17 11:10 Dose: Not Given Collagenase (Santyl) 0 gm TOP DAILY [facility] Last Admin: 09/22/17 21:26 Dose: 1 tcp Docusate Sodium (Colace) 100 mg PO DAILY [facility] Last Admin: 09/22/17 11:50 Dose: 100 mg Fenofibrate (Tricor) 145 mg PO DAILY [facility] Last Admin: 09/22/17 11:50 Dose: 145 mg Gabapentin (Neurontin) 100 mg PO HS [facility] PRN Reason: Protocol Last Admin: 09/22/17 21:19 Dose: 100 mg Meropenem 500 mg/ Sodium (Chloride) 50 mls @ 100 mls/hr IVPB Q24H [facility] PRN Reason: Protocol Stop: 09/26/17 11:16 Last Admin: 09/22/17 11:51 Dose: 100 mls/hr Insulin Human Regular (Humulin R Low) 0 units SC ACHS [facility] PRN Reason: Protocol Last Admin: 09/22/17 17:06 Dose: 1 units Isosorbide Mononitrate (Imdur Er) 30 mg PO DAILY [facility] Last Admin: 09/22/17 11:50 Dose: 30 mg Levothyroxine Sodium (Synthroid) 50 mcg PO ACB [facility] Last Admin: 09/22/17 11:50 Dose: 50 mcg Lidocaine/Prilocaine (Emla) 0 gm TOP MOWEFRSA [facility] Metoprolol Tartrate (Lopressor) 25 mg PO BRKDIN [facility] Last Admin: 09/22/17 17:06 Dose: 25 mg Pantoprazole Sodium (Protonix Ec Tab) 20 mg PO DAILY [facility] Last Admin: 09/22/17 11:50 Dose: 20 mg Polyethylene Glycol (Miralax) 17 gm PO BID [facility] Last Admin: 09/22/17 17:05 Dose: 17 gm Vitamin B Complex/Vit C/Folic Acid (Nephro-Emiliano) 1 tab PO 0800 [facility] Last Admin: 09/22/17 11:50 Dose: 1 tab - Labs Labs: 09/21/17 10:30 09/21/17 10:30 PT 13.2 SECONDS (9.4-12.5) H 09/15/17 16:50 INR 1.15 (0.93-1.08) H 09/15/17 16:50 APTT 32.4 Seconds (25.1-36.5) 09/15/17 16:50 - Constitutional Appears: Chronically Ill - Head Exam Head Exam: NORMAL INSPECTION - Respiratory Exam Respiratory Exam: Decreased Breath Sounds - Cardiovascular Exam Cardiovascular Exam: +S1, +S2 - GI/Abdominal Exam GI & Abdominal Exam: Soft. absent: Tenderness Assessment and Plan - Assessment and Plan (Free Text) Plan: Assessment history of left perineal abscess S/P I and D, grew MRSA and Klebsiella - now still with residual skin and skin structure infection, growing MSSA and E. coli history of sepsis due to E. 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 diff. associated diarrhea S/P severe sepsis with acute sigmoid diverticulitis and acute cholecystitis history of acute NSTEMI history of sepsis due to acute descending colon diverticulitis and bilateral lobe healthcare-associated pneumonia history of healthcare-associated pneumonia (right upper lobe, bilateral lower lobes) HTN DM CAD with chronic CHF ESRD on HD Plan continue Merrem day 5 and will follow up further Surgery recommendations - target a short course of antibiotics (5-7 days) discussed with Dr. Ascencio previously
[2017-09-23] MEDS: Levalbuterol 1.25 MG/3 ML Inhal Soln UD IH SCH (19:45)
[2017-09-24] MEDS: Levalbuterol 1.25 MG/3 ML Inhal Soln UD IH SCH ×3 (02:28→13:10)
[2017-09-24 07:46] VITALS: RESP 20; TEMP 97.5
[2017-09-24] MEDS: Insulin Reg-LOW-Coverage SC SCH ×3 (07:59→17:39)
[2017-09-24] MEDS: Levothyroxine 50 MCG TAB PO SCH (08:05)
--- NOTE | 2017-09-24 08:12 | PN ---
DATE: 09/21/2017 SUBJECTIVE: The patient is seen in the dialysis unit. She is awake. She is alert. She complains of being weak. She complains of inability to walk. PHYSICAL EXAMINATION GENERAL: Elderly lady seen in the dialysis unit. VITAL SIGNS: Blood pressure 125/84, heart rate 83, respiratory rate 18, temperature 97.8. HEENT: Normocephalic, atraumatic, positive pallor. NECK: Supple, no JVD. LUNGS: Bilateral equal air entry, bilateral equal expansion, no rales. CARDIAC: S1 and S2, regular rate and rhythm, no murmur, no rub. ABDOMEN: Soft, nondistended, nontender, bowel sounds present. EXTREMITIES: No lower extremity edema. INTAKE AND OUTPUT: 2000 ultrafiltration on dialysis. LABORATORY DATA: WBC 4.4, hemoglobin 10.3, hematocrit 32, platelets 74. Sodium 136, potassium 3.4, chloride 95, CO2 of 29, BUN 23, creatinine , glucose of 118, calcium 8, phosphorus 1.8, magnesium 1.7, albumin 3.1, corrected calcium is 8.6. Wound culture, E-coli. CURRENT MEDICATIONS: Aspirin, Colace, insulin, Imdur, Lopressor, meropenem 500 every 24 hours, MiraLax, Nephro-Emiliano, amlodipine, Neurontin, PhosLo, Protonix, Synthroid, TriCor. ASSESSMENT AND PLAN: 1. Status post decompensated congestive heart failure, now compensated. 2. Escherichia coli wound infection. 3. Chronic fatigue. 4. Non-insulin dependant diabetes mellitus. 5. Hypertension. 6. End-stage renal disease. 7. Coronary artery disease, congestive heart failure, paroxysmal atrial fibrillation. PLAN: 1. Stable dialysis. 2. 2 kilos ultrafiltration. 3. tomorrow. 4. Hold phosphate binder. Barbi Linares MD
[2017-09-24] MEDS: Multivitamin Vitamin B Complex (Nephro-Vite) Tab PO SCH (08:46)
--- NOTE | 2017-09-24 09:58 | PN ---
DATE: 09/23/2017 SUBJECTIVE: The patient is 82 years old, patient of Dr. Ascencio, sitting in bed, states she does not feel good, complained of shortness of breath, complained of back pain and knee pain, states appetite is poor. PHYSICAL EXAMINATION VITAL SIGNS: She is afebrile, pulse 85, respirations 20, blood pressure 109/55. LUNGS: Bilateral fair airflow, diffusely decreased breath sounds. HEART: S1 and S2 audible. ABDOMEN: Soft, nontender. No rebound. No guarding. NEUROLOGICAL: She is awake and alert, able to communicate. EXTREMITIES: Bilateral legs, no edema. Left groin has dressing. LABORATORY DATA: Chemistry: Blood sugar is 81. The left groin culture are growing E. coli. ASSESSMENT: 1. Generalized weakness and deconditioning. 2. Left inguinal abscess status post incision and drainage. 3. Wound culture positive for methicillin-resistant Staphylococcus aureus and Klebsiella. 4. Community-acquired pneumonia. 5. Non-insulin dependent diabetes mellitus. 6. Hypertension. 7. History of congestive heart failure. 8. End-stage renal disease, on hemodialysis. PLAN: Currently, the patient is on aspirin 81 daily. Local wound care is being done by surgical team. She is on isosorbide, metoprolol and meropenem. Continue on gabapentin at bedtime, amlodipine 5 mg daily, levothyroxine 50 mcg daily. We will continue above mentioned medication. Continue local wound care. We will start her on Xopenex t.i.d. for a day or two to see her response since she is complaining of shortness of breath. Tommy Maldonado MD
[2017-09-24] MEDS: Meropenem 500 MG in Sodium Chloride 0.9% 50 ML IVPB SCH (10:43)
[2017-09-24] MEDS: Pantoprazole 20 mg EC Tab PO SCH (10:48)
[2017-09-24] MEDS: Collagenase 250 Units/gm Ointment(30 gm) TOP SCH (11:00)
[2017-09-24] MEDS: POLYETHYLENE GLYCOL 3350 17 GM/Dose PACKET PO SCH ×2 (11:06→17:40)
--- NOTE | 2017-09-24 14:53 | CP.PCM.PN ---
Subjective - Date & Time of Evaluation Date of Evaluation: 09/24/17 Time of Evaluation: 12:40 - Subjective Subjective: No fevers, not in distress. Objective - Vital Signs/Intake and Output Vital Signs (last 24 hours): Temp Pulse Resp BP Pulse Ox 97.5 F L 89 20 95/50 L 98 09/24/17 06:00 09/24/17 08:00 09/24/17 06:00 09/24/17 08:00 09/24/17 06:00 Intake and Output: 09/24/17 09/24/17 06:59 18:59 Intake Total 650 Output Total 0 Balance 650 - Medications Medications: Current Medications Amlodipine Besylate (Norvasc) 5 mg PO DAILY [facility] Last Admin: 09/23/17 11:26 Dose: Not Given Aspirin (Aspirin Chewable) 81 mg PO 0800 [facility] Last Admin: 09/24/17 08:05 Dose: 81 mg Calcium Acetate (Phoslo) 667 mg PO WM [facility] Last Admin: 09/21/17 11:10 Dose: Not Given Collagenase (Santyl) 0 gm TOP DAILY [facility] Last Admin: 09/23/17 11:26 Dose: Not Given Docusate Sodium (Colace) 100 mg PO DAILY [facility] Last Admin: 09/23/17 11:19 Dose: 100 mg Fenofibrate (Tricor) 145 mg PO DAILY [facility] Last Admin: 09/23/17 11:25 Dose: 145 mg Gabapentin (Neurontin) 100 mg PO HS [facility] PRN Reason: Protocol Last Admin: 09/23/17 23:18 Dose: 100 mg Meropenem 500 mg/ Sodium (Chloride) 50 mls @ 100 mls/hr IVPB Q24H [facility] PRN Reason: Protocol Stop: 09/26/17 11:16 Last Admin: 09/23/17 11:27 Dose: 100 mls/hr Insulin Human Regular (Humulin R Low) 0 units SC ACHS [facility] PRN Reason: Protocol Last Admin: 09/24/17 07:59 Dose: Not Given Isosorbide Mononitrate (Imdur Er) 30 mg PO DAILY [facility] Last Admin: 09/23/17 11:27 Dose: 30 mg Levalbuterol HCl (Xopenex) 1.25 mg IH [id number] [facility] Last Admin: 09/24/17 07:42 Dose: 1.25 mg Levothyroxine Sodium (Synthroid) 50 mcg PO ACB [facility] Last Admin: 09/24/17 08:05 Dose: 50 mcg Lidocaine/Prilocaine (Emla) 0 gm TOP MOWEFRSA [facility] Metoprolol Tartrate (Lopressor) 25 mg PO BRKDIN [facility] Last Admin: 09/24/17 08:00 Dose: Not Given Pantoprazole Sodium (Protonix Ec Tab) 20 mg PO DAILY [facility] Last Admin: 09/23/17 11:25 Dose: 20 mg Polyethylene Glycol (Miralax) 17 gm PO BID [facility] Last Admin: 09/23/17 19:28 Dose: Not Given Vitamin B Complex/Vit C/Folic Acid (Nephro-Emiliano) 1 tab PO 0800 [facility] Last Admin: 09/24/17 08:46 Dose: 1 tab - Labs Labs: 09/21/17 10:30 09/21/17 10:30 PT 13.2 SECONDS (9.4-12.5) H 09/15/17 16:50 INR 1.15 (0.93-1.08) H 09/15/17 16:50 APTT 32.4 Seconds (25.1-36.5) 09/15/17 16:50 - Constitutional Appears: Chronically Ill - Head Exam Head Exam: NORMAL INSPECTION - ENT Exam ENT Exam: Mucous Membranes Moist - Neck Exam Neck Exam: absent: Meningismus - Respiratory Exam Respiratory Exam: Decreased Breath Sounds - Cardiovascular Exam Cardiovascular Exam: +S1, +S2 - GI/Abdominal Exam GI & Abdominal Exam: Soft. absent: Tenderness Assessment and Plan - Assessment and Plan (Free Text) Plan: Assessment history of left perineal abscess S/P I and D, grew MRSA and Klebsiella - now still with residual skin and skin structure infection, growing MSSA and E. coli history of sepsis due to E. 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 diff. associated diarrhea S/P severe sepsis with acute sigmoid diverticulitis and acute cholecystitis history of acute NSTEMI history of sepsis due to acute descending colon diverticulitis and bilateral lobe healthcare-associated pneumonia history of healthcare-associated pneumonia (right upper lobe, bilateral lower lobes) HTN DM CAD with chronic CHF ESRD on HD Plan on Merrem day 6 and will follow up further Surgery recommendations - target a short course of antibiotics (5-7 days) discussed with Dr. Ascencio
[2017-09-24 15:26] VITALS: BP 116/55; PULSE 94; O2SAT 100
--- NOTE | 2017-09-24 15:31 | CP.PCM.PN ---
Subjective - Date & Time of Evaluation Date of Evaluation: 09/24/17 Time of Evaluation: 11:00 - Subjective Subjective: The patient is an 82-year-old white female undergoing dialysis who has appeared to be fretful and depressed The patient is alert, oriented, seems quite anxious and unhappy over her situation. She perseverates over the fact that she is in the hospital has spending a lot of time in bed and a lot of time in the hospital and that this represents a recurrent demoralizing after which the patient is unhappy with. Laboratory Results - last 72 hr 09/21/17 09/21/17 09/22/17 15:45 20:56 06:46 POC Glucose (mg/dL) 169 H 115 H 110 09/22/17 09/22/17 09/22/17 11:32 16:35 21:28 POC Glucose (mg/dL) 73 153 H 118 H 09/23/17 09/23/17 09/23/17 06:39 11:24 16:06 POC Glucose (mg/dL) 105 81 137 H 09/23/17 09/24/17 09/24/17 21:31 06:33 11:07 POC Glucose (mg/dL) 143 H 140 H 158 H Objective - Vital Signs/Intake and Output Vital Signs (last 24 hours): Temp Pulse Resp BP Pulse Ox 97.5 F L 78 20 105/78 98 09/24/17 06:00 09/24/17 10:42 09/24/17 06:00 09/24/17 10:42 09/24/17 06:00 Intake and Output: 09/24/17 09/24/17 06:59 18:59 Intake Total 650 Output Total 0 Balance 650 - Medications Medications: Current Medications Amlodipine Besylate (Norvasc) 5 mg PO DAILY [facility] Last Admin: 09/24/17 10:42 Dose: Not Given Aspirin (Aspirin Chewable) 81 mg PO 0800 [facility] Last Admin: 09/24/17 08:05 Dose: 81 mg Calcium Acetate (Phoslo) 667 mg PO WM [facility] Last Admin: 09/21/17 11:10 Dose: Not Given Collagenase (Santyl) 0 gm TOP DAILY [facility] Last Admin: 09/24/17 11:00 Dose: Not Given Docusate Sodium (Colace) 100 mg PO DAILY [facility] Last Admin: 09/24/17 11:06 Dose: Not Given Fenofibrate (Tricor) 145 mg PO DAILY [facility] Last Admin: 09/24/17 10:42 Dose: 145 mg Gabapentin (Neurontin) 100 mg PO HS [facility] PRN Reason: Protocol Last Admin: 09/23/17 23:18 Dose: 100 mg Meropenem 500 mg/ Sodium (Chloride) 50 mls @ 100 mls/hr IVPB Q24H [facility] PRN Reason: Protocol Stop: 09/26/17 11:16 Last Admin: 09/24/17 10:43 Dose: 100 mls/hr Insulin Human Regular (Humulin R Low) 0 units SC ACHS [facility] PRN Reason: Protocol Last Admin: 09/24/17 11:14 Dose: 1 units Isosorbide Mononitrate (Imdur Er) 30 mg PO DAILY [facility] Last Admin: 09/24/17 10:42 Dose: 30 mg Levalbuterol HCl (Xopenex) 1.25 mg IH [id number] [facility] Last Admin: 09/24/17 13:10 Dose: 1.25 mg Levothyroxine Sodium (Synthroid) 50 mcg PO ACB [facility] Last Admin: 09/24/17 08:05 Dose: 50 mcg Lidocaine/Prilocaine (Emla) 0 gm TOP MOWEFRSA [facility] Metoprolol Tartrate (Lopressor) 25 mg PO BRKDIN [facility] Last Admin: 09/24/17 08:00 Dose: Not Given Pantoprazole Sodium (Protonix Ec Tab) 20 mg PO DAILY [facility] Last Admin: 09/24/17 10:48 Dose: 20 mg Polyethylene Glycol (Miralax) 17 gm PO BID [facility] Last Admin: 09/24/17 11:06 Dose: Not Given Vitamin B Complex/Vit C/Folic Acid (Nephro-Emiliano) 1 tab PO 0800 [facility] Last Admin: 09/24/17 08:46 Dose: 1 tab - Labs Labs: 09/21/17 10:30 09/21/17 10:30 PT 13.2 SECONDS (9.4-12.5) H 09/15/17 16:50 INR 1.15 (0.93-1.08) H 09/15/17 16:50 APTT 32.4 Seconds (25.1-36.5) 09/15/17 16:50 - Psychiatric Exam Psychiatric exam: Anxious, Depressed (Perseverating over her misery of having to be hospitalized recurrently and requiring dialysis) Assessment and Plan - Assessment and Plan (Free Text) Assessment: Patient needs encouragement, support and at times redirection.
--- NOTE | 2017-09-24 17:40 | CON ---
DATE: 09/24/2017 PULMONARY CONSULTATION REASON FOR CONSULTATION: Shortness of breath. REFERRING PHYSICIAN: Shavonne Ascencio MD. HISTORY OF PRESENT ILLNESS: History is obtained via extensive discussion with the nurse. I have also reviewed the chart at length, and discussed the case with the patient at length. The patient is a chronically ill 82-year-old female, with past medical history significant for recurrent congestive heart failure, coronary artery disease, myocardial infarction in the past, end-stage renal disease, chronic anemia, paroxysmal atrial fibrillation, who presented to [facility] - originally on 09/15/2017 - with main complaints of increasing shortness of breath at rest, dyspnea on exertion and intermittent left-sided chest discomfort for the previous 2 days. In the emergency room, the patient was noted to be in congestive heart failure. She was thus admitted for additional evaluation. Again, I did discuss the case with the nurse at length. The patient relates the history of being short of breath "at times." The patient is very comfortable and not short of breath at the present time. There is no history of cough or sputum production. Her chest discomfort has resolved. There is no history of coughing up of blood. There is no history of chest discomfort - made worse with deep respirations. There is no history of temperatures, chills or infectious exposure. There is no history of night sweats, weight loss or appetite change prior to the above events. No history of calf pains. No history of syncope or diaphoresis. No history of recent travel or trauma. REVIEW OF SYSTEMS: No history of nausea, vomiting or diarrhea. No new neurologic or musculoskeletal complaints. Rest of the review of systems is negative. ALLERGIES: TO CEFTRIAXONE. SOCIAL HISTORY: Negative for tobacco. Negative for alcohol. FAMILY HISTORY: No inheritable diseases. HOME MEDICATIONS: Include MiraLax, Protonix, Synthroid, Imdur, Norvasc, Mobic, Neurontin, TriCor, Colace, PhosLo, aspirin, insulin. PHYSICAL EXAMINATION: GENERAL: The patient appears comfortable this morning. She is not short of breath at rest. She is not using accessory muscles for breathing. VITAL SIGNS: Temperature 97.5, pulse 89, respirations 18, blood pressure 95/50. Oxygen saturation on nasal cannula is 98%. HEENT: Normocephalic, atraumatic. No JVD. CARDIOVASCULAR: Systolic ejection murmur at the lower left sternal border. Questionable S3 gallop. LUNGS: Minimal crackles at the bases. Otherwise clear. No rhonchi. No wheezing. EXTREMITIES: Mild edema. No cyanosis. No clubbing. Calves are nontender to palpation. GI: Abdomen is soft, nontender, nondistended. Bowel sounds are positive. SKIN: Reveals a left groin infection. No rashes. NEUROLOGIC: Limited at the present time. PERTINENT LABORATORY DATA: Chest x-ray was last done on 09/15/2017. There is a definite increase in pulmonary vascular congestion noted. CBC: White count 4.3, hemoglobin 10.3, hematocrit 32, platelets of 74,000. Complete metabolic profile: Potassium 3.4, chloride 95, BUN 23, creatinine 2.4, glucose 118, calcium 8, phosphorus 1.8. Rest of the metabolic profile is within normal limits. This metabolic profile was done on 09/21/2017. Initial B-type natriuretic peptide was more than 35,000. IMPRESSION: 1. Recurrent congestive heart failure. 2. End-stage renal disease. 3. Left groin infection. 4. Anemia. 5. Coronary artery disease. PLAN: The patient presented to [facility] - originally on 09/15/2017 - with main complaints of increasing shortness of breath at rest, dyspnea on exertion and intermittent left-sided chest pain for the previous 2 days. In the emergency room, the patient was noted to be in congestive heart failure. She was thus admitted for additional evaluation. I did review the laboratory data and chest x-ray done on 09/15/2017. Findings were certainly consistent with acute congestive heart failure. Again, I did discuss the case with the night nurse at length. The patient does complain of shortness of breath "at times." At the present time, she is very comfortable and not short of breath. On physical exam, there is no significant bronchospasm noted. In addition, there is no significant alveolar-arterial gradient. We can continue with the nebulizer treatments for now. The patient's sporadic shortness of breath is most likely due to her volume status. Certainly, she has improved clinically with adequate dialysis. Inputs by Cardiology and Renal are noted. I will discuss the above with Dr. Ascencio this morning. Thank you very much for this pulmonary consultation. Joni Perkins MD [facility] # [id number] MELANIE
--- NOTE | 2017-09-24 18:58 | PN ---
DATE: 09/24/2017 SUBJECTIVE: Patient is seen lying in bed. She reports she is not feeling well. She complains of pain in her abdomen. She did not complain of any chest pain at present. PHYSICAL EXAMINATION: GENERAL: An elderly lady lying in bed. VITAL SIGNS: Blood pressure 105/78, heart rate 78, respiratory rate 20, temperature 97.5. HEENT: Normocephalic, atraumatic, positive pallor. NECK: Supple, no JVD. LUNGS: Bilateral equal air entry, bilateral equal expansion, minimal basilar rales. CARDIAC: S1, S2. Regular rate and rhythm. No murmur, no rub. ABDOMEN: Soft, nondistended, nontender, bowel sounds present. EXTREMITIES: No lower extremity edema. INTAKE AND OUTPUT: Not charted. LABORATORY DATA: No new labs. MEDICATIONS: Aspirin, Colace, EMLA cream, insulin, Imdur, Lopressor, meropenem, MiraLax, Nephro-Emiliano, gabapentin, amlodipine, PhosLo, Protonix, Santyl, Synthroid, TriCor, Xopenex. ASSESSMENT: 1. Status post congestive heart failure, currently appears compensated. 2. Status post incision and drainage of left groin. 3. End-stage renal disease. 4. Noninsulin-dependent diabetes mellitus. 5. Hypertension. 6. Paroxysmal atrial fibrillation. 7. Anemia. 8. Secondary hyperparathyroidism. PLAN: 1. No objection to discharge. 2. Dialysis in the outpatient unit today. 3. Fluid restriction. 4. Strict renal diet. 5. Physical therapy at home. Barbi Linares MD
== END 2017-09-24 18:14 | disposition home or self-care (01) | DRG 291 ==
LOC: ED 16:22 → ERH 18:46 → 2RNO 20:58 → 5RNO 09-21 18:26
PROVIDERS: ADMIT Internal Medicine; ATTEND Internal Medicine
PROC: 5A1D70Z Performance of Urinary Filtration, Intermittent, Less than 6 Hours Per Day (ICD-10-PCS; principal; 2017-09-17)
PROC: 5A1D70Z Performance of Urinary Filtration, Intermittent, Less than 6 Hours Per Day (ICD-10-PCS; 2017-09-18)
PROC: 5A1D70Z Performance of Urinary Filtration, Intermittent, Less than 6 Hours Per Day (ICD-10-PCS; 2017-09-19)
PROC: 5A1D70Z Performance of Urinary Filtration, Intermittent, Less than 6 Hours Per Day (ICD-10-PCS; 2017-09-21)
PROC: 5A1D70Z Performance of Urinary Filtration, Intermittent, Less than 6 Hours Per Day (ICD-10-PCS; 2017-09-22)
DX: I13.2 Hypertensive heart and chronic kidney disease with heart failure and with stage 5 chronic kidney disease, or end stage renal disease (principal); I50.33 Acute on chronic diastolic (congestive) heart failure; N18.6 End stage renal disease; E87.1 Hypo-osmolality and hyponatremia; N25.81 Secondary hyperparathyroidism of renal origin; D63.1 Anemia in chronic kidney disease; D69.6 Thrombocytopenia, unspecified; E03.9 Hypothyroidism, unspecified; E11.22 Type 2 diabetes mellitus with diabetic chronic kidney disease; E78.5 Hyperlipidemia, unspecified; E87.5 Hyperkalemia; F03.90 Unspecified dementia, unspecified severity, without behavioral disturbance, psychotic disturbance, mood disturbance, and anxiety; F43.23 Adjustment disorder with mixed anxiety and depressed mood; I25.10 Atherosclerotic heart disease of native coronary artery without angina pectoris; I34.0 Nonrheumatic mitral (valve) insufficiency; I42.9 Cardiomyopathy, unspecified; I48.0 Paroxysmal atrial fibrillation; J44.9 Chronic obstructive pulmonary disease, unspecified; K21.9 Gastro-esophageal reflux disease without esophagitis; M06.9 Rheumatoid arthritis, unspecified; I25.2 Old myocardial infarction; Z79.1 Long term (current) use of non-steroidal anti-inflammatories (NSAID); Z79.899 Other long term (current) drug therapy; Z86.010 Personal history of colon polyps; Z87.01 Personal history of pneumonia (recurrent); Z87.81 Personal history of (healed) traumatic fracture; Z90.710 Acquired absence of both cervix and uterus; Z95.5 Presence of coronary angioplasty implant and graft; Z96.642 Presence of left artificial hip joint; Z99.2 Dependence on renal dialysis

== ENCOUNTER 2017-09-28 12:22 | Emergency (ER) | payer MEDICARE, OTHER ==
[2017-09-28 12:32] VITALS: BMI 23.0
[2017-09-28] MEDS ORDERED: Sodium Chloride 0.9% 250 ML IV STA (13:02)
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
--- NOTE | 2017-09-28 13:49 | RAD ---
HISTORY: fall, on the floor for hours, ? syncope COMPARISON: 09/15/2017 FINDINGS: LUNGS: Diffuse bilateral infiltrates are seen which could be secondary to pulmonary edema or pneumonia. Small pleural effusions are seen PLEURA: No significant pleural effusion identified, no pneumothorax apparent. CARDIOVASCULAR: Normal. OSSEOUS STRUCTURES: No significant abnormalities. VISUALIZED UPPER ABDOMEN: Normal. OTHER FINDINGS: None. IMPRESSION: Diffuse bilateral infiltrates are seen which could be secondary to pulmonary edema or pneumonia. Small pleural effusions are seen
[2017-09-28 13:51] LABS: BASO # 0.01 K/mm3 (0.0-2.0); BASO % 0.3 % (0.0-3.0); GRAN # 2.47 (1.4-6.5); GRAN % 72.5 % (50.0-68.0); HEMOGLOBIN 12.6 g/dL (12.0-16.0); LYMPH # 0.7 (1.2-3.4); LYMPH % 19.6 % (22.0-35.0); MEAN CELL VOLUME 96.5 fl (80.0-105.0); MEAN CORPUSCULAR HEMOGLOBIN 31.2 pg (25.0-35.0); MEAN CORPUSCULAR HGB CONC 32.3 g/dl (31.0-37.0); MEAN PLATELET VOLUME 9.5 fl (7.0-11.0); MONO # 0.3 (0.1-0.6); MONO % 7.6 % (1.0-6.0); RBC 4.04 10^6/uL (3.5-6.1); RED CELL DISTRIBUTION WIDTH 19.3 % (11.5-14.5); WHITE BLOOD COUNT 3.4 10^3/ul (4.5-11.0)
[2017-09-28 13:52] LABS: VENOUS BLOOD GAS BASE EXCESS 7.1 mmol/L (0.0-2.0); VENOUS BLOOD GAS PO2 32 mm/Hg (30-55); VENOUS BLOOD PH 7.39 (7.32-7.43)
[2017-09-28 14:01] LABS: INR 1.27 (0.93-1.08); PROTHROMBIN TIME 14.5 SECONDS (9.4-12.5)
[2017-09-28 14:02] LABS: PARTIAL THROMBOPLASTIN TIME 34.9 Seconds (25.1-36.5)
--- NOTE | 2017-09-28 14:10 | CT ---
PROCEDURE: CT HEAD WITHOUT CONTRAST. HISTORY: fall, syncope COMPARISON: 04/30/2017 TECHNIQUE: Axial computed tomography images were obtained through the head/brain without intravenous contrast. Radiation dose: Total exam DLP = 751 mGy-cm. This CT exam was performed using one or more of the following dose reduction techniques: Automated exposure control, adjustment of the mA and/or kV according to patient size, and/or use of iterative reconstruction technique. FINDINGS: HEMORRHAGE: No intracranial hemorrhage. BRAIN: No mass effect or edema. Mild atrophy. Mild microvascular changes VENTRICLES: Unremarkable. No hydrocephalus. CALVARIUM: Unremarkable. PARANASAL SINUSES: Unremarkable as visualized. No significant inflammatory changes. MASTOID AIR CELLS: Unremarkable as visualized. No inflammatory changes. OTHER FINDINGS: None. IMPRESSION: No acute intracranial findings
[2017-09-28 14:22] LABS: ALB/GLOB RATIO 0.7 (1.1-1.8); ALBUMIN 3.7 g/dL (3.0-4.8); CALCIUM 8.6 mg/dL (8.4-10.5)
[2017-09-28 14:30] LABS: TROPONIN I 0.05 ng/mL
[2017-09-28] MEDS ORDERED: Albuterol-Ipratrop 3 mg / 0.5 (3 ml) UD ONE (14:47)
--- NOTE | 2017-09-28 14:50 | RAD ---
PROCEDURE: Radiographs of the pelvis and bilateral hips HISTORY: fell off bed at home, on the floor until today COMPARISON: None. FINDINGS: BONES: Pelvis: Unremarkable. Right hip:Unremarkable. Left hip:Left hip prosthesis with no dislocation or fracture JOINTS: Right hip: Unremarkable. Left hip: Unremarkable. Sacroiliac Joints: Unremarkable. Pubic symphysis: Unremarkable. SOFT TISSUES: Normal. OTHER FINDINGS: None. IMPRESSION: Unremarkable radiographs of the hips and pelvis.
[2017-09-28] MEDS: Albuterol-Ipratrop 3 mg / 0.5 (3 ml) UD IH SCH ×3 (14:56→15:33)
[2017-09-28 15:26] VITALS: RESP 16
--- NOTE | 2017-09-28 16:00 | CP.PCM.CON ---
History of Present Illness - History of Present Illness History of Present Illness: Initial Nephrology Consultation Note Covering for Dr Garcia/Vijay/Joaquín: Assessment: Stable Fall at home severe sys CHF Diabetic chronic Kidney Disease (E11.22) Hypertensive Chronic Kidney Disease (I12.0) End stage renal disease (N18.6) dependence on hemodialysis (Z99.2) (MWF and sat ) via AVF Anemia (D64.9), Hyperphosphatemia (E83.39), Secondary Hyperparathyroidism (E21.1 ), HTN (I12.0) Plan: Will plan for HD today as ordered. Continue with Nephrovite 1 tab/day. plan for next HD tomorrow PRBC as needed for anemia. Not on HARRISON last Hb 12.6 Continue with phos binders home dose, phos level 5.7 BP control with meds as ordered. Glycemic control, Dialysis consistent diet Further work up/management as per primary team Dose meds/antibiotics (if needed) for ESRD status. Avoid fleets enema/magnesium based laxatives. CHF optimization fall precautions Thanks for allowing me to participate in care of your patient. Please call if any Qs. pt will be followed by Dr Garcia from tomorrow. Dr Mihir Elizondo Office: [phone] Chief Complaint; SOB and fall reason for consult: ESRD HPI: Pt is a 82 F with hx of ESRD on hemodialysis (MWF and sat) via AVF (Dr Yanes/Dr Linares), last dialysis wed, chronic anemia, hyperphosphatemia, secondary hyperparathyroidism, Diabetes Mellitus, hypertension, CHF presented to [facility] with c/o fall at home and SOB x 1 day. [facility]. renal consult for ESRD management pt c/o body aches and SOB. otherwise feels in usual health ROS: Cardiovascular: No chest pain. Pulmonary: c/o shortness of breath Gastrointestinal: denies abdominal pain no nausea. No vomiting. Genitourinary: No pain while urinating. Denies blood in urine. All other negative Physical Examination: General Appearance: in no acute respiratory distress, co-operative, chronically ill and debilitated appeating Vitals reviewed and noted as below Head; Atraumatic, normocephalic ENT: no ulcers no thrush. Tongue is midline. Oropharynx: no rash or ulcers. EYES: Pupils are equal, round and reactive to light accommodation. Eye muscles and extraocular movement intact. Sclera is anicteric. Neck; supple no lymphadenopathy, no thyromegaly or bruit Lungs: Normal respiratory rate/effort. Breath sounds bilateral equal and basal crackles Heart: Normal rate. s1s2 normal. No rub or gallop. Extremities: no edema. No varicose veins Neurological: Patient is alert, awake and oriented to person, place and time. No focal deficit. Strength bilateral appropriate and equal Skin: Warm and dry. Normal turgor. No rash. Palpitation: Normal elasticity for age Abdomen: Abdomen is soft. Bowel sounds +. There is no abdominal tenderness, no guarding/rigidity or organomegaly Psych: limited insight and normal affect/mood MSK: no joint tenderness or swelling. Digits and nails normal, no deformity : kidney or bladder not palpable Access: AVF Labs/imaging reviewed. Past medical history, past surgical history, family history, social history, allergy reviewed and noted as below Family Hx: no hx of CKD. Non contributory Past Patient History - Infectious Disease Hx of Infectious Diseases: None - Tetanus Immunizations Tetanus Immunization: Unknown - Past Medical History & Family History Past Medical History?: Yes - Past Social History Smoking Status: Never Smoked - CARDIAC Hx Congestive Heart Failure: Yes Hx Hypertension: Yes - PULMONARY Hx Chronic Obstructive Pulmonary Disease (COPD): Yes - NEUROLOGICAL Hx Neurological Disorder: Yes (numbnes/tingling left leg and ft) Hx Dizziness: Yes - HEENT Hx HEENT Problems: Yes Hx Cataracts: Yes (b/l sx) - RENAL Hx Chronic Kidney Disease: Yes Hx Dialysis: Yes (mwfs, left arm av shunt) Hx Renal Failure: Yes - ENDOCRINE/METABOLIC Hx Hypothyroidism: Yes - HEMATOLOGICAL/ONCOLOGICAL Hx Blood Disorders: Yes Hx Anemia: Yes - INTEGUMENTARY Hx Dermatological Problems: No Other/Comment: L arm shunt has dsg, excellent bruit at site - MUSCULOSKELETAL/RHEUMATOLOGICAL Hx Rheumatoid Arthritis: Yes (On HD) - GASTROINTESTINAL Hx Gastrointestinal Disorders: Yes (POOR APPETITE,GERD,DIVERTICULITIS,RECTAL BLEED. H/O C DIFF.) Other/Comment: CHOLELITHIASIS - GENITOURINARY/GYNECOLOGICAL Hx Genitourinary Disorders: Yes (VRE IN THE URINE.OLIGURIA.ESRD ON HD) - PSYCHIATRIC Hx Psychophysiologic Disorder: Yes Hx Anxiety: Yes Hx Depression: Yes Hx Substance Use: No - SURGICAL HISTORY Hx Coronary Stent: Yes Hx Hysterectomy: Yes Hx Orthopedic Surgery: Yes (left hip replacement) Other/Comment: desi av shunt - ANESTHESIA Hx Anesthesia: Yes Hx Anesthesia Reactions: No Hx Malignant Hyperthermia: No Meds Allergies/Adverse Reactions: Allergies Allergy/AdvReac Type Severity Reaction Status Date / Time ceftriaxone Allergy ITCHING Verified 09/15/17 16:28 Results - Vital Signs Recent Vital Signs: Last Vital Signs Temp 97.9 F 09/28/17 12:31 Pulse 92 H 09/28/17 15:00 Resp 16 09/28/17 15:00 BP 143/81 09/28/17 15:00 Pulse Ox 100 09/28/17 15:00 - Labs Result Diagrams: 09/28/17 13:30 09/28/17 13:30 Labs: Laboratory Results - last 24 hr 09/28/17 09/28/17 09/28/17 13:30 13:30 13:30 WBC 3.4 L D RBC 4.04 Hgb 12.6 D Hct 39.0 MCV 96.5 MCH 31.2 MCHC 32.3 RDW 19.3 H Plt Count 99 L MPV 9.5 Gran % 72.5 H Lymph % (Auto) 19.6 L Coal % (Auto) 7.6 H Eos % (Auto) 0.0 L Baso % (Auto) 0.3 Gran # 2.47 Lymph # (Auto) 0.7 L Coal # (Auto) 0.3 Eos # (Auto) 0.0 Baso # (Auto) 0.01 PT 14.5 H INR 1.27 H APTT 34.9 pO2 VBG pH VBG pCO2 VBG HCO3 VBG Total CO2 VBG O2 Sat (Calc) VBG Base Excess VBG Potassium Sodium 143 Chloride 98 Glucose Lactate FiO2 Potassium 4.9 Carbon Dioxide 29 Anion Gap 22 H BUN 52 H Creatinine 3.7 H Est GFR ( Amer) 14 Est GFR (Non-Af Amer) 12 Random Glucose 66 L Calcium 8.6 Phosphorus 5.1 H Magnesium 1.9 Total Bilirubin 1.0 AST 50 H D ALT 16 Alkaline Phosphatase 76 Lactate Dehydrogenase 639 Total Creatine Kinase 72 Troponin I 0.05 D NT-Pro-B Natriuret Pep [id number] H Total Protein 8.9 H Albumin 3.7 Globulin 5.2 Albumin/Globulin Ratio 0.7 L TSH 3rd Generation Venous Blood Potassium 09/28/17 09/28/17 13:30 13:30 WBC RBC Hgb Hct MCV MCH MCHC RDW Plt Count MPV Gran % Lymph % (Auto) Coal % (Auto) Eos % (Auto) Baso % (Auto) Gran # Lymph # (Auto) Coal # (Auto) Eos # (Auto) Baso # (Auto) PT INR APTT pO2 32 VBG pH 7.39 VBG pCO2 56.0 VBG HCO3 33.9 H VBG Total CO2 35.6 H VBG O2 Sat (Calc) 59.2 VBG Base Excess 7.1 H VBG Potassium 5.0 Sodium 138.0 Chloride 101.0 Glucose 64 L Lactate 1.6 FiO2 21.0 Potassium Carbon Dioxide Anion Gap BUN Creatinine Est GFR ( Amer) Est GFR (Non-Af Amer) Random Glucose Calcium Phosphorus Magnesium Total Bilirubin AST ALT Alkaline Phosphatase Lactate Dehydrogenase Total Creatine Kinase Troponin I NT-Pro-B Natriuret Pep Total Protein Albumin Globulin Albumin/Globulin Ratio TSH 3rd Generation 4.40 Venous Blood Potassium 5.0
[2017-09-28 20:07] VITALS: BP 123/77; PULSE 97; TEMP 98.1
[2017-09-28 20:19] VITALS: O2SAT 99
--- NOTE | 2017-09-28 21:22 | CARD ---
APPROVED REPORT EKG Measurement Heart [id number] <Conclusion> Sinus rhythm with 1st degree AV block with premature atrial complexes Pulmonary disease pattern Abnormal ECG
== END 2017-09-28 20:16 | disposition short-term general hospital (02) ==
LOC: ED 12:22
DX: Z04.3 Encounter for examination and observation following other accident (principal); W06.XXXA Fall from bed, initial encounter; Y92.003 Bedroom of unspecified non-institutional (private) residence as the place of occurrence of the external cause; I13.2 Hypertensive heart and chronic kidney disease with heart failure and with stage 5 chronic kidney disease, or end stage renal disease; I50.33 Acute on chronic diastolic (congestive) heart failure; N18.6 End stage renal disease; Z99.2 Dependence on renal dialysis; R55 Syncope and collapse; R53.1 Weakness; Z95.5 Presence of coronary angioplasty implant and graft
CPT/HCPCS: 70450; 71045; 73522; 80053; 82550; 82803; 83615; 83735; 83880; 84100; 84443; 84484; 85025; 85610; 85730; 87040; 93005; 94640; 99285; J7040

== ENCOUNTER 2018-01-04 10:29 | Inpatient (IN) | payer MEDICARE, MEDICAID ==
[2018-01-04] MEDS ORDERED: Vancomycin 1gm in NS 250ml 1 GM/250 ML BAG IVPB STA (10:43)
[2018-01-04] MEDS ORDERED: Aztreonam 2 Gm in NS 100mL 100 ML IVPB STA (10:43)
--- NOTE | 2018-01-04 10:54 | ED PDOC ---
Arrival/HPI - General Historian: Correction, EMS EM Caveat: Altered Mental Status - History of Present Illness Time/Duration: Prior to Arrival Symptom Onset: Sudden Symptom Course: Unchanged Severity Level: 6 Activities at Onset: Rest Context: Home <Champ James - Last Filed: 01/04/18 15:00> - Critical Care Critical Care Minutes: 30 minutes <Navi Figueroa - Last Filed: 01/09/18 13:28> - General Chief Complaint: Altered Mental Status Time Seen by Provider: 01/04/18 10:43 - History of Present Illness Narrative History of Present Illness (Text): 01/04/18 10:50 CC: AMS HPI: 82 year old female with Past medical history of Ischemic heart disease, hypertension, hypercholesterolemia, end-stage renal disease on HD, diabetes, div erticulosis, diverticulitis (based on previous documentation) who presents with altered mental status and reports of dyspnea, lethargy, and unresponsiveness to verbal stimuli. Patient is a resident at [facility]. Patient is on a MWF HD schedule and was set to go today. Remainder of history and ROS unobtainable due to inability to patient status. (Champ James) 01/04/18 10:50 CC: AMS HPI: 82 year old female with Past medical history of Ischemic heart disease, hypertension, hypercholesterolemia, end-stage renal disease on HD, diabetes, diverticulosis, diverticulitis (based on previous documentation) who presents with altered mental status and reports of dyspnea, lethargy, and unresponsiveness to verbal stimuli. Patient is a resident at [facility]. Patient is on a MWF HD schedule and was set to go today. Remainder of history and ROS unobtainable due to inability to patient status. (Navi Figueroa) Past Medical History - Provider Review Nursing Documentation Reviewed: Yes - Past History Past History: No Previous - Infectious Disease Hx of Infectious Diseases: None - Tetanus Immunization Tetanus Immunization: Unknown - Cardiac Hx Congestive Heart Failure: Yes Hx Hypertension: Yes - Pulmonary Hx Chronic Obstructive Pulmonary Disease (COPD): Yes Hx Pneumonia: Yes - Neurological Hx Neurological Disorder: Yes (numbnes/tingling left leg and ft) Hx Dizziness: Yes - HEENT Hx HEENT Disorder: Yes Hx Cataracts: Yes (b/l sx) - Renal Hx Renal Disorder: Yes Other/Comment: Left upper arm shunt - Endocrine/Metabolic Hx Hypothyroidism: Yes - Hematological/Oncological Hx Anemia: Yes - Integumentary Hx Dermatological Disorder: No Other/Comment: L arm shunt has dsg, excellent bruit at site - Musculoskeletal/Rheumatological Hx Arthritis: Yes Hx Fractures: Yes (left hip) Hx Rheumatoid Arthritis: Yes (On HD) - Gastrointestinal Hx Diverticulitis: Yes - Genitourinary/Gynecological Hx Genitourinary Disorders: Yes (VRE IN THE URINE.OLIGURIA.ESRD ON HD) - Psychiatric Hx Anxiety: Yes Hx Depression: Yes Hx Substance Use: No - Surgical History Hx Coronary Stent: Yes - Anesthesia Hx Anesthesia: Yes Hx Anesthesia Reactions: No Hx Malignant Hyperthermia: No - Suicidal Assessment Feels Threatened In Home Enviroment: No <Champ James - Last Filed: 01/04/18 15:00> Family/Social History - Physician Review Nursing Documentation Reviewed: Yes Family/Social History: Hypertension, Other (Heart Disease) Smoking Status: Never Smoked Hx Alcohol Use: No Hx Substance Use: No Hx Substance Use Treatment: No <Champ James - Last Filed: 01/04/18 15:00> Allergies/Home Meds <hCamp James - Last Filed: 01/04/18 15:00> <Navi Figueroa - Last Filed: 01/09/18 13:28> Allergies/Adverse Reactions: Allergies ceftriaxone Allergy (Verified 01/04/18 10:39) ITCHING Home Medications: Home Meds Medication Instructions Recorded Confirmed RX: Baclofen [Lioresal] 10 mg PO Q12 01/04/18 01/04/18 Review of Systems - Review of Systems Systems not reviewed;Unavailable: Altered Mental Status <Champ James - Last Filed: 01/04/18 15:00> Physical Exam Vital Signs Reviewed: Yes Temperature: Afebrile Blood Pressure: Hypertensive Pulse: Tachycardic Respiratory Rate: Tachypneic Appearance: Positive for: Ill-Appearing, Cachectic Pain Distress: Severe Mental Status: No: Alert and Oriented X 3 Finger Stick Blood Glucose: 212 - Systems Exam Head: Present: Atraumatic, Normocephalic Pupils: Present: PERRL Extroacular Muscles: Present: EOMI Conjunctiva: Present: Normal Mouth: Present: Moist Mucous Membranes Neck: Present: Normal Range of Motion Respiratory/Chest: Present: Clear to Auscultation, Accessory Muscle Use, Decreased Breath Sounds, Tachypneic. No: Respiratory Distress, Wheezes, Rales Cardiovascular: Present: Regular Rate and Rhythm, Normal S1, S2, Tachycardic Abdomen: Present: Normal Bowel Sounds. No: Tenderness, Distention, Peritoneal Signs, Rebound, Guarding Back: Present: Normal Inspection. No: CVA Tenderness Upper Extremity: Present: Normal Inspection Lower Extremity: Present: Neurovascularly Intact. No: CALF TENDERNESS Neurological: No: Speech Normal Psychiatric: Present: Alert (responds to verbal stimuli). No: Oriented x 3, Normal Insight, Normal Concentration <Cameronlujorge luisMarissaChamp - Last Filed: 01/04/18 15:00> Vital Signs Temp Pulse Resp BP Pulse Ox 01/04/18 15:15 97.6 F 72 20 115/60 100 01/04/18 15:14 97.6 F 72 20 115/60 100 01/04/18 14:10 70 18 110/55 L 100 01/04/18 10:42 97.6 F 102 H 28 H 161/80 H 100 Medical Decision Making <Cameronlujorge luisChamp - Last Filed: 01/04/18 15:00> <Navi Figueroa L - Last Filed: 01/09/18 13:28> ED Course and Treatment: 01/04/18 11:02 Impression: 82 F with past medical history of Ischemic heart disease, hypertension, hypercholesterolemia, end-stage renal disease on dialysis, diabetes, diverticulosis diverticulitis who presents with altered mental status. Currently meets SIRS criteria without a known cause. (Tachycardia, tachypnea) Plan: VBG Aztreonam and Vanc Labs Coag studies UA blood and urine cx Procal CXR EKG 01/04/18 11:36 Lactate 2.1 Meets Code Sepsis criteria. Unknown source of infection. Patient put on BiPAP. Call made to Dr. Linares regarding HD. Call made to Dr. Ascencio PCP regarding admission, and possible ICU admission. Ordered CT head without contrast. CXR Date of service: 01/04/2018 HISTORY: Sepsis Patient COMPARISON: 09/28/2017 FINDINGS: LUNGS: Interstitial congestion and bilateral pleural effusions PLEURA: No significant pleural effusion identified, no pneumothorax apparent. CARDIOVASCULAR: Mild cardiomegaly and vascular congestion OSSEOUS STRUCTURES: No significant abnormalities. VISUALIZED UPPER ABDOMEN: Normal. OTHER FINDINGS: None. IMPRESSION: Interstitial congestion and bilateral pleural effusions (ErikaMarissaChamp) 01/04/18 11:02 Impression: 82 F with past medical history of Ischemic heart disease, hypertension, hypercholesterolemia, end-stage renal disease on dialysis, diabetes, diverticulosis diverticulitis who presents with altered mental status. Currently meets SIRS criteria without a known cause. (Tachycardia, tachypnea) Plan: VBG Aztreonam and Vanc Labs Coag studies UA blood and urine cx Procal CXR EKG 01/04/18 11:36 Lactate 2.1 Meets Code Sepsis criteria. Unknown source of infection. Patient put on BiPAP. Call made to Dr. Linares regarding HD. Call made to Dr. Ascencio PCP regarding admission, and possible ICU admission. Ordered CT head without contrast. CXR Date of service: 01/04/2018 HISTORY: Sepsis Patient COMPARISON: 09/28/2017 FINDINGS: LUNGS: Interstitial congestion and bilateral pleural effusions PLEURA: No significant pleural effusion identified, no pneumothorax apparent. CARDIOVASCULAR: Mild cardiomegaly and vascular congestion OSSEOUS STRUCTURES: No significant abnormalities. VISUALIZED UPPER ABDOMEN: Normal. OTHER FINDINGS: None. IMPRESSION: Interstitial congestion and bilateral pleural effusions (CarolinaNavi L) - Lab Interpretations Microbiology Results: Microbiology Results 01/04/18 12:20 Blood Blood Culture - Final NO GROWTH AFTER 5 DAYS 01/04/18 12:20 Blood Gram Stain - Final TEST NOT PERFORMED 01/04/18 10:55 Blood Blood Culture - Final NO GROWTH AFTER 5 DAYS 01/04/18 10:55 Blood Gram Stain - Final TEST NOT PERFORMED 01/04/18 11:25 Urine Urine Culture - Final No Growth (<1,000 CFU/ML) Lab Results: 01/04/18 10:55 01/04/18 10:55 Lab Results 01/04/18 11:25: Urine Color Light brown, Urine Appearance Cloudy, Urine pH 8.0, Ur Specific [place] 1.020, Urine Protein >=300 H, Urine Glucose (UA) Negative, Urine Ketones Negative, Urine Blood Large H, Urine Nitrate Positive H, Urine Bilirubin Small H, Urine Urobilinogen 0.2, Ur Leukocyte Esterase Large H, Urine RBC Tntc, Urine WBC Tntc, Urine Bacteria Large 01/04/18 10:55: Sodium 140, Chloride 95 L, Potassium 4.7, Carbon Dioxide 35 H, Anion Gap 14, BUN 24 H, Creatinine 3.8 H, Est GFR ( Amer) 14, Est GFR (Non-Af Amer) 11, Random Glucose 164 H, Calcium 8.6, Phosphorus 4.9 H, Magnesium 2.0, Total Bilirubin 0.5, AST 38 H D, ALT 9, Alkaline Phosphatase 105, Troponin I 0.03 D, NT-Pro-B Natriuret Pep [id number] H, Total Protein 8.2, Albumin 3.3, Globulin 4.9, Albumin/Globulin Ratio 0.7 L 01/04/18 10:55: pO2 43, VBG pH 7.19 L*, VBG pCO2 92.0 H*, VBG HCO3 35.1 H, VBG Total CO2 37.9 H, VBG O2 Sat (Calc) 67.5 H, VBG Base Excess 3.7 H, VBG Potassium 4.5, Sodium 137.0, Chloride 98.0, Glucose 165 H, Lactate 2.1, FiO2 21.0, Venous Blood Potassium 4.5 01/04/18 10:55: PT 13.7 H, INR 1.19, APTT 29.1 01/04/18 10:55: Procalcitonin 1.18 H 01/04/18 10:55: WBC 8.4 D, RBC 3.38 L, Hgb 10.2 L D, Hct 33.6 L, MCV 99.4, MCH 30.2, MCHC 30.4 L, RDW 16.8 H, Plt Count 125, MPV 9.0, Gran % 81.6 H, Lymph % (Auto) 13.5 L, [place] % (Auto) 4.8, Eos % (Auto) 0.0 L, Baso % (Auto) 0.1, Gran # 6.82 H, Lymph # (Auto) 1.1 L, [place] # (Auto) 0.4, Eos # (Auto) 0.0, Baso # (Auto) 0.01 01/04/18 10:44: POC Glucose (mg/dL) 212 H - RAD Interpretation Radiology Orders: 01/04/18 10:43 CHEST PORTABLE [RAD] Stat 01/04/18 11:52 HEAD W/O CONTRAST [CT] Stat - Medication Orders Current Medication Orders: Albuterol/Ipratropium (Duoneb 3 Mg/0.5 Mg (3 Ml) Ud) 3 ml IH [id number] RUTHANN Last Admin: 01/09/18 07:39 Dose: Not Given Non-Admin Reason: Agitation Aspirin (Aspirin Chewable) 81 mg PO 0800 RUTHANN Last Admin: 01/09/18 12:27 Dose: Not Given Non-Admin Reason: Patient Refused Calcium Acetate (Phoslo) 667 mg PO BIDWM [facility] Last Admin: 01/09/18 08:48 Dose: Not Given Non-Admin Reason: Patient in Dialysis Dextrose (Dextrose 50% Inj) 0 ml IV STAT PRN; Protocol PRN Reason: Hypoglycemia Protocol Docusate Sodium (Colace) 100 mg PO BID RUTHANN Gabapentin (Neurontin) 100 mg PO HS [facility]; Protocol Last Admin: 01/08/18 22:20 Dose: 100 mg Behavioural Document 01/08/18 22:20 RR (Rec: 01/09/18 01:20 RR [id number] Maintenance Maintenance Dose Yes Re-Assess: Reassess Psych Meds Document 01/08/18 23:20 RR (Rec: 01/09/18 04:51 RR [id number]) Reassess Psych Med Effective Dextrose (Dextrose 5% In Water 1000 Ml) 1,000 mls @ 0 mls/hr IV .Q0M PRN; Protocol PRN Reason: Hypoglycemia Protocol Meropenem 500 mg/ Sodium (Chloride) 50 mls @ 100 mls/hr IVPB Q12 RUTHANN; Protocol Stop: 01/11/18 17:01 Last Admin: 01/09/18 12:34 Dose: Not Given Non-Admin Reason: Patient in Dialysis Vancomycin HCl (Vancomycin 1gm) 1 gm in 250 mls @ 167 mls/hr IVPB STAT STA; Protocol Stop: 01/09/18 14:44 Insulin Human Lispro (Humalog Low) 0 units SC Q6 RUTHANN; Protocol Last Admin: 01/09/18 12:34 Dose: Not Given Non-Admin Reason: Blood Sugar Parameter Levothyroxine Sodium (Synthroid) 50 mcg PO DAILY@0630 RUTHANN Last Admin: 01/09/18 07:05 Dose: Not Given Non-Admin Reason: Patient Lethargic Prednisone (Prednisone Tab) 20 mg PO DAILY [facility] Last Admin: 01/09/18 12:35 Dose: Not Given Non-Admin Reason: Patient Refused Quetiapine Fumarate (Seroquel) 12.5 mg PO HS RUTHANN; Protocol Last Admin: 01/08/18 22:19 Dose: 12.5 mg Behavioural Document 01/08/18 22:19 RR (Rec: 01/09/18 01:19 RR [id number]) Maintenance Maintenance Dose Yes Re-Assess: Reassess Psych Meds Document 01/08/18 23:19 RR (Rec: 01/09/18 04:51 RR [id number]) Reassess Psych Med Effective Vitamin A (Vitamin A & D Oint Ud Foilpak) 1 ea TOP BID PRN PRN Reason: Dry mouth Last Admin: 01/06/18 16:23 Dose: 1 ea Discontinued Medications Albuterol/Ipratropium (Duoneb 3 Mg/0.5 Mg (3 Ml) Ud) 3 ml IH Q6 RUTHANN Stop: 01/05/18 06:01 Last Admin: 01/05/18 08:18 Dose: 3 ml Albuterol/Ipratropium (Duoneb 3 Mg/0.5 Mg (3 Ml) Ud) 3 ml IH Q3 RUTHANN Last Admin: 01/07/18 00:00 Dose: Not Given Non-Admin Reason: Patient Refused Aztreonam (Azactam 2 Gm) 100 mls @ 100 mls/hr IVPB STAT STA; Protocol Stop: 01/04/18 11:42 Last Admin: 01/04/18 11:59 Dose: 100 mls/hr eMAR Start Stop Document 01/04/18 11:59 [facility] [place] [facility] (Rec: 01/04/18 11:59 [id number] Intravenous Solution Start Date 01/04/18 Start Time 11:59 End Date 01/04/18 End time 13:00 Total Infusion Time 61 Vancomycin HCl (Vancomycin 1gm) 1 gm in 250 mls @ 167 mls/hr IVPB STAT STA; Protocol Stop: 01/04/18 12:12 Last Admin: 01/04/18 13:17 Dose: 167 mls/hr eMAR Start Stop Document 01/04/18 13:17 [facility] [place] (Rec: 01/04/18 13:18 [id number] Intravenous Solution Start Date 01/04/18 Start Time 13:17 End Date 01/04/18 End time 14:50 Total Infusion Time 93 Doxycycline Hyclate 100 mg/ (Sodium Chloride) 100 mls @ 100 mls/hr IVPB Q12 RUTHANN; Protocol Last Admin: 01/05/18 21:10 Dose: 100 mls/hr eMAR Start Stop Document 01/05/18 21:10 B.P (Rec: 01/05/18 21:10 B.P [id number]) Intravenous Solution Start Date 01/05/18 Start Time 21:10 Methylprednisolone (Solu-Medrol) 40 mg IVP Q12 RUTHANN Last Admin: 01/04/18 21:08 Dose: 40 mg IVP Administration Document 01/04/18 21:08 JBO (Rec: 01/04/18 21:09 JBO [id number]) Charges for Administration # of IVP Administrations 1 Methylprednisolone (Solu-Medrol) 20 mg IVP Q12 RUTHANN Last Admin: 01/07/18 10:45 Dose: 20 mg Ondansetron HCl (Zofran Inj) 4 mg IVP STAT STA Stop: 01/04/18 11:14 Last Admin: 01/04/18 11:40 Dose: 4 mg IVP Administration Document 01/04/18 11:40 [facility] [place] (Rec: 01/04/18 11:40 [id number] Charges for Administration # of IVP Administrations 1 Pneumococcal Polyvalent Vaccine (Pneumovax 23 Vaccine) 0.5 ml IM .ONCE ONE Stop: 01/04/18 18:16 <Champ James - Last Filed: 01/04/18 15:00> - PA / NETWORK TECHNICAL ANALYST / Resident Statement / has reviewed & agrees with the documentation as recorded. / has examined the patient and agrees with the treatment plan. - Scribe Statement The provider has reviewed the documentation as recorded by the Scribe <Navi Figueroa - Last Filed: 01/09/18 13:28> - Scribe Statement Mary Marcus All medical record entries made by the Scribe were at my direction and per sonally dictated by me. I have reviewed the chart and agree that the record accurately reflects my personal performance of the history, physical exam, medical decision making, and the department course for this patient. I have also personally directed, reviewed, and agree with the discharge instructions and disposition. (Champ James) Mary Marcus All medical record entries made by the Scribe were at my direction and personally dictated by me. I have reviewed the chart and agree that the record accurately reflects my personal performance of the history, physical exam, medical decision making, and the department course for this patient. I have also personally directed, reviewed, and agree with the discharge instructions and disposition. (Navi Figueroa) Disposition/Present on Arrival - Present on Arrival Any Indicators Present on Arrival: No History of DVT/PE: No History of Uncontrolled Diabetes: No Urinary Catheter: No History of Decub. Ulcer: No History Surgical Site Infection Following: None - Disposition Have Diagnosis and Disposition been Completed?: Yes Disposition Time: 12:00 Patient Plan: Admission <Champ James - Last Filed: 01/04/18 15:00> <Navi Figueroa - Last Filed: 01/09/18 13:28> - Disposition Diagnosis: Sepsis, ESRD (end stage renal disease) on dialysis Disposition: HOSPITALIZED Patient Problems: Current Active Problems Problem Status Onset Sepsis Acute ESRD (end stage renal disease) on dialysis Chronic Condition: FAIR
[2018-01-04 11:20] LABS: VENOUS BLOOD GAS BASE EXCESS 3.7 mmol/L (0.0-2.0); VENOUS BLOOD GAS PO2 43 mm/Hg (30-55)
[2018-01-04 11:21] LABS: BASO # 0.01 K/mm3 (0.0-2.0); BASO % 0.1 % (0.0-3.0); GRAN # 6.82 (1.4-6.5); GRAN % 81.6 % (50.0-68.0); HEMOGLOBIN 10.2 g/dL (12.0-16.0); LYMPH # 1.1 (1.2-3.4); LYMPH % 13.5 % (22.0-35.0); MEAN CELL VOLUME 99.4 fl (80.0-105.0); MEAN CORPUSCULAR HEMOGLOBIN 30.2 pg (25.0-35.0); MEAN CORPUSCULAR HGB CONC 30.4 g/dl (31.0-37.0); MONO # 0.4 (0.1-0.6); MONO % 4.8 % (1.0-6.0); RBC 3.38 10^6/uL (3.5-6.1); RED CELL DISTRIBUTION WIDTH 16.8 % (11.5-14.5); WHITE BLOOD COUNT 8.4 10^3/ul (4.5-11.0)
[2018-01-04 11:28] LABS: VENOUS BLOOD PH 7.19 (7.32-7.43)
[2018-01-04 11:32] LABS: ALB/GLOB RATIO 0.7 (1.1-1.8); ALBUMIN 3.3 g/dL (3.0-4.8); CALCIUM 8.6 mg/dL (8.4-10.5)
[2018-01-04 11:33] LABS: INR 1.19; PARTIAL THROMBOPLASTIN TIME 29.1 Seconds (25.1-36.5); PROTHROMBIN TIME 13.7 SECONDS (9.4-12.5)
[2018-01-04 11:43] LABS: TROPONIN I 0.03 ng/mL
[2018-01-04 12:19] LABS: URINE BILIRUBIN SMALL (NEGATIVE); URINE BLOOD LARGE (NEGATIVE); URINE GLUCOSE (UA) NEGATIVE (NEGATIVE); URINE LEUKOCYTE ESTERASE LARGE Leu/uL (NEGATIVE); URINE PROTEIN >=300 mg/dL (<30 mg/dL); URINE UROBILINOGEN 0.2 E.U./dL (<1 E.U./dL)
[2018-01-04 12:27] LABS: URINE APPEARANCE CLOUDY (CLEAR); URINE COLOR LIGHT BROWN (YELLOW)
[2018-01-04 12:28] LABS: URINE BACTERIA LARGE (NEG); URINE RBC TNTC /hpf (0-2); URINE WBC TNTC /hpf (0-6)
--- NOTE | 2018-01-04 12:42 | RAD ---
Date of service: 01/04/2018 HISTORY: Sepsis Patient COMPARISON: 09/28/2017 FINDINGS: LUNGS: Interstitial congestion and bilateral pleural effusions PLEURA: No significant pleural effusion identified, no pneumothorax apparent. CARDIOVASCULAR: Mild cardiomegaly and vascular congestion OSSEOUS STRUCTURES: No significant abnormalities. VISUALIZED UPPER ABDOMEN: Normal. OTHER FINDINGS: None. IMPRESSION: Interstitial congestion and bilateral pleural effusions
[2018-01-04 13:15] LABS: ARTERIAL BLOOD GAS HCO3 37.8 mmol/L (21-28); ARTERIAL BLOOD GAS HEMOGLOBIN 8.7 g/dL (11.7-17.4); ARTERIAL BLOOD GAS O2 CAPACITY 12.3 mL/dl (16-24); ARTERIAL BLOOD GAS O2 CONTENT 12.3 ML/dl (15-23); ARTERIAL BLOOD GAS O2 SAT 99.8 % (95-98); ARTERIAL BLOOD GAS PCO2 75 mm/Hg (35-45); ARTERIAL BLOOD GAS PH 7.31 (7.35-7.45); ARTERIAL BLOOD GAS TCO2 40.1 mmol.L (22-28)
--- NOTE | 2018-01-04 13:54 | CP.PCM.CON ---
<Nayla Su - Last Filed: 01/04/18 15:09> History of Present Illness - History of Present Illness History of Present Illness: ICU consult note for Dr. Hicks Mrs. Uriarte is a 82 yr old female with PMH Ischemic heart disease, hypertension, hypercholesterolemia, end-stage renal disease on HD, diabetes, diverticulosis, diverticulitis, CHF who presents to [facility] from [facility] with SOB, lethargy and unresponsiveness. Per Patient family she has decided in code status DNR/ DNI. Family has not seen patient is several days and is unsure of recent events. Patient is on CPAP and poorly arousable upon inteview. No ROS was able to be elicited. PMH: HTN, HLD, COPD, CAD, DM, Diverticulosis/itis, pneumonia, possible past cardiac stents PSH: unknown Social: nonsmoker PMG: Shavonne Ascencio Review of Systems - Review of Systems Systems not reviewed;Unavailable: Acuity of Condition, Altered Mental Status Past Patient History - Infectious Disease Hx of Infectious Diseases: None - Tetanus Immunizations Tetanus Immunization: Unknown - Past Medical History & Family History Past Medical History?: Yes - Past Social History Smoking Status: Never Smoked - CARDIAC Hx Congestive Heart Failure: Yes Hx Hypertension: Yes - PULMONARY Hx Chronic Obstructive Pulmonary Disease (COPD): Yes Hx Pneumonia: Yes - NEUROLOGICAL Hx Neurological Disorder: Yes (numbnes/tingling left leg and ft) Hx Dizziness: Yes - HEENT Hx HEENT Problems: Yes Hx Cataracts: Yes (b/l sx) - RENAL Hx Chronic Kidney Disease: Yes Other/Comment: Left upper arm shunt - ENDOCRINE/METABOLIC Hx Hypothyroidism: Yes - HEMATOLOGICAL/ONCOLOGICAL Hx Anemia: Yes - INTEGUMENTARY Hx Dermatological Problems: No Other/Comment: L arm shunt has dsg, excellent bruit at site - MUSCULOSKELETAL/RHEUMATOLOGICAL Hx Arthritis: Yes Hx Fractures: Yes (left hip) Hx Rheumatoid Arthritis: Yes (On HD) - GASTROINTESTINAL Hx Diverticulitis: Yes - GENITOURINARY/GYNECOLOGICAL Hx Genitourinary Disorders: Yes (VRE IN THE URINE.OLIGURIA.ESRD ON HD) - PSYCHIATRIC Hx Anxiety: Yes Hx Depression: Yes Hx Substance Use: No - SURGICAL HISTORY Hx Coronary Stent: Yes - ANESTHESIA Hx Anesthesia: Yes Hx Anesthesia Reactions: No Hx Malignant Hyperthermia: No Meds Allergies/Adverse Reactions: Allergies Allergy/AdvReac Type Severity Reaction Status Date / Time ceftriaxone Allergy ITCHING Verified 01/04/18 10:39 - Medications Medications: Current Medications Albuterol/Ipratropium (Duoneb 3 Mg/0.5 Mg (3 Ml) Ud) 3 ml IH Q6 RUTHANN Stop: 01/05/18 06:01 Albuterol/Ipratropium (Duoneb 3 Mg/0.5 Mg (3 Ml) Ud) 3 ml IH Q3 RUTHANN Methylprednisolone (Solu-Medrol) 40 mg IVP Q12 RUTHANN Physical Exam - Constitutional Appears: Cachectic, Chronically Ill, Other (lethargic, poorly arousable) - Head Exam Head Exam: ATRAUMATIC, NORMAL INSPECTION - ENT Exam ENT Exam: Mucous Membranes Dry - Respiratory Exam Respiratory Exam: Rales (bilaterally), Wheezes (wheezes bilaterally, patient on BIPAP) - Cardiovascular Exam Cardiovascular Exam: REGULAR RHYTHM - GI/Abdominal Exam GI & Abdominal Exam: Soft. absent: Distended, Firm, Guarding, Tenderness - Extremities Exam Extremities exam: Negative for: calf tenderness, pedal edema, tenderness Additional comments: Kerlix and gauze dressings in place over the left foot and right ankle - Neurological Exam Neurological exam: Altered - Psychiatric Exam Additional comments: lethargic poorly arousable - Skin Skin Exam: Dry, Intact, Normal Color, Warm Results - Vital Signs Recent Vital Signs: Last Vital Signs Temp 97.6 F 01/04/18 10:42 Pulse 70 01/04/18 12:54 Resp 18 01/04/18 12:54 BP 110/55 L 01/04/18 12:54 Pulse Ox 100 01/04/18 12:54 - Labs Result Diagrams: 01/04/18 10:55 01/04/18 10:55 Labs: Laboratory Results - last 24 hr 01/04/18 13:10 pCO2 75 H* pO2 161.0 H HCO3 37.8 H ABG pH 7.31 L ABG Total CO2 40.1 H ABG O2 Saturation 99.8 H ABG O2 Content 12.3 L ABG Base Excess 9.8 H ABG Hemoglobin 8.7 L ABG Carboxyhemoglobin 1.8 H POC ABG HHb (Measured) 0.2 ABG Methemoglobin 0.6 ABG O2 Capacity 12.3 L Hgb O2 Saturation 97.3 FiO2 40.0 Assessment & Plan - Assessment and Plan (Free Text) Assessment: 82 y/o F with pmh HTN, HLD, DM, CHF, COPD, CAD, ESRD (HHD), diverticulitis presents with lethargy, respiratory depression and unresponsiveness from [facility]. On exam she is poorly arousable but saturating well on BIPAP. UA reveals likely UTI, WBC normal, afebrile, infectious disease consulted. CXR reveals bilateral effusions, vascular congestion consistent with CHF exacerbation. IN ED she recieved Aztreonam, and vancomycin. Patient will need HD today, nephrology consulted. Duonebs and solumedrol started. Plan: Neuro: - lethargic, poorly arousable - on BIPAP - likely underlying dementia Cardio: -pmh CAD, HTN, HLD, CHF -nontachycardic, normotensive - BNP [id number] - CXR: pleural effusions vascular congestion - will recieve HD today - maintain BP> 100/60 Pulm: - hx COPD and recent pneumonia admission - ABG on bipap pH 7.31/ CO2 75/ O2 63/ HCO3 38 - CXR pleural effusions bilaterally and vascular congestion - begin methylpred 40mg Q12 and duonebs - repeat CXR in AM - c/w Bipap - repeat ABG in am GI: - soft NT - no signs of GI distress - protonix for ppx renal: -Cr/BUN 3.8/24 - will get HD today - monitor K Heme: - hgb/hct - no active blled - will monitor ID: - afebrile, WBC 8 - UA reveals WBC, bacteria, + leuk esterase - recieved vanc and aztreonam in ED - ID consulted GIppx protonix DVT ppx SCDs - Date & Time Date: 01/04/18 Time: 13:12 <Joshua Hicks - Last Filed: 01/04/18 15:16> Meds - Medications Medications: Current Medications Albuterol/Ipratropium (Duoneb 3 Mg/0.5 Mg (3 Ml) Ud) 3 ml IH Q6 RUTHANN Stop: 01/05/18 06:01 Albuterol/Ipratropium (Duoneb 3 Mg/0.5 Mg (3 Ml) Ud) 3 ml IH Q3 RUTHANN Methylprednisolone (Solu-Medrol) 40 mg IVP Q12 RUTHANN Last Admin: 01/04/18 14:22 Dose: 40 mg Results - Vital Signs Recent Vital Signs: Last Vital Signs Temp 97.6 F 01/04/18 10:42 Pulse 70 01/04/18 12:54 Resp 18 01/04/18 12:54 BP 110/55 L 01/04/18 12:54 Pulse Ox 100 01/04/18 12:54 - Labs Result Diagrams: 01/04/18 10:55 01/04/18 10:55 Labs: Laboratory Results - last 24 hr 01/04/18 01/04/18 13:10 13:48 pCO2 75 H* pO2 161.0 H 117 H HCO3 37.8 H ABG pH 7.31 L ABG Total CO2 40.1 H ABG O2 Saturation 99.8 H ABG O2 Content 12.3 L ABG Base Excess 9.8 H ABG Hemoglobin 8.7 L ABG Carboxyhemoglobin 1.8 H POC ABG HHb (Measured) 0.2 ABG Methemoglobin 0.6 ABG O2 Capacity 12.3 L VBG pH 7.28 L VBG pCO2 73.0 H* VBG HCO3 34.3 H VBG O2 Sat (Calc) 98.8 H VBG Base Excess 5.1 H Hgb O2 Saturation 97.3 FiO2 40.0 Assessment & Plan - Assessment and Plan (Free Text) Plan: Patient seen and examined with resident, agree with note with following additions/exceptions: Patient is 82yo female with pmh HTN, HLD, DM, CHF, COPD, CAD, ESRD on HD, diverticulitis presents with lethargy, and AMS. Patient was given Abx in the ER , placed on BIPAP, after ABg revealed acute on chronic, resp acidosis. Currently the patient is drowsy, but arousable, afebrile, BP stable, comfortable in NAD. Labs, imaging, chart reviewed. CXR with pulm edema. ESRD on HD Acute on chronic resp acidosis UTI COPD exacerbation AMS Recommend: - cont with BIPAP, repeat ABG, dunebs PRN - Solumedrol IV - Pulmicort - Broad spectrum abx, Aztreonam, Vanco - panculture, UCx, BCx, Procal, Obtain ID Consult - HD as per renal, would benefit from HD today, given CXR findings - FS control - CT head without contrast - GI ppx - DVT ppx - Pt is DNR/DNI - Admit to MICU
[2018-01-04 13:58] LABS: VENOUS BLOOD GAS BASE EXCESS 5.1 mmol/L (0.0-2.0); VENOUS BLOOD GAS PO2 117 mm/Hg (30-55); VENOUS BLOOD PH 7.28 (7.32-7.43)
[2018-01-04] MEDS: MethylPREDNISolone 40 mg Vial IVP SCH ×2 (14:22→21:08)
--- NOTE | 2018-01-04 15:22 | CT ---
Date of service: 01/04/2018 PROCEDURE: CT HEAD WITHOUT CONTRAST. HISTORY: ams COMPARISON: Noncontrast head CT performed 09/28/17 TECHNIQUE: Axial computed tomography images were obtained through the head/brain without intravenous contrast. Radiation dose: Total exam DLP = 884.05 mGy-cm. This CT exam was performed using one or more of the following dose reduction techniques: Automated exposure control, adjustment of the mA and/or kV according to patient size, and/or use of iterative reconstruction technique. FINDINGS: Streak artifact obscures evaluation of the skullbase. HEMORRHAGE: No intracranial hemorrhage. BRAIN: Diffuse atrophy with prominence of the ventricles and sulci noted. No mass effect or edema. Dense intracranial atherosclerosis. Scattered periventricular and subcortical white matter hypodensities, which are nonspecific, but often seen with chronic microvascular ischemic disease. Please note that MRI with diffusion imaging is more sensitive in the detection of acute ischemic event. VENTRICLES: No hydrocephalus. CALVARIUM: Unremarkable. PARANASAL SINUSES: Unremarkable as visualized. No significant inflammatory changes. MASTOID AIR CELLS: Unremarkable as visualized. No inflammatory changes. OTHER FINDINGS: None. IMPRESSION: Generalized atrophy. Nonspecific white matter changes.
[2018-01-04] MEDS ORDERED: Dextrose 50% SYRINGE Inj (50 ml) IV PRN (15:39)
[2018-01-04 16:47] LABS: VENOUS BLOOD GAS BASE EXCESS 9.7 mmol/L (0.0-2.0); VENOUS BLOOD GAS PO2 163 mm/Hg (30-55); VENOUS BLOOD PH 7.36 (7.32-7.43)
--- NOTE | 2018-01-04 16:58 | PCM.SEPTIC ---
Sepsis Progress Note - Reassessment Type Date of Evaluation: 01/04/18 Time of Evaluation: 15:30 (starting hemodialysis) Reassessment Type: Non-invasive reassessment - Non Invasive Reassessment Were the most recent vital sign reviewed: Yes Vital Sign (Latest): Temp Pulse Resp BP Pulse Ox 97.5 F L 77 16 167/60 H 94 L 01/04/18 15:37 01/04/18 15:37 01/04/18 15:37 01/04/18 15:37 01/04/18 15:37 Cardiovascular: Yes: Regular Rate, Rhythm Respiratory: Yes: Rales, Other (on BiPap) Capillary Refill: Normal (Less than 2 sec) Pulses: Normal Radial, Normal Dorsalis Pedis, Normal Posterior Tibialis Skin: Normal Color, Warm, Dry
--- NOTE | 2018-01-04 17:10 | CP.PCM.CON ---
History of Present Illness - History of Present Illness History of Present Illness: 82 year old female with PMH of HTN, DM, CAD with chronic CHF, ESRD on HD was sent in to [facility] from the group home because of poor responsiveness to stimuli. The patient was supposed to get hemodialysis today but the patient was very lethargic. I spoke with Dr. Ascencio regarding the events that happened in the group home and in the ED. In the ED, she was noted to have high CO2 on blood gas. She was placed on BiPAP, and soon became more awake. The patient currently is in the ICU undergoing dialysis and the patient is still lethargic but is arousable by tactile stimuli. Full ROS is unobtainable because of the patient's mental status. Infectious diseases consult is requested to further evaluate and manage. Review of Systems - Review of Systems All systems: reviewed and no additional remarkable complaints except (as per HPI ) Past Patient History - Infectious Disease Hx of Infectious Diseases: None - Tetanus Immunizations Tetanus Immunization: Unknown - Past Medical History & Family History Past Medical History?: Yes - Past Social History Smoking Status: Never Smoked - CARDIAC Hx Congestive Heart Failure: Yes Hx Hypertension: Yes - PULMONARY Hx Chronic Obstructive Pulmonary Disease (COPD): Yes Hx Pneumonia: Yes - NEUROLOGICAL Hx Neurological Disorder: Yes (numbnes/tingling left leg and ft) Hx Dizziness: Yes - HEENT Hx HEENT Problems: Yes Hx Cataracts: Yes (b/l sx) - RENAL Hx Chronic Kidney Disease: Yes Other/Comment: Left upper arm shunt - ENDOCRINE/METABOLIC Hx Hypothyroidism: Yes - HEMATOLOGICAL/ONCOLOGICAL Hx Anemia: Yes - INTEGUMENTARY Hx Dermatological Problems: No Other/Comment: L arm shunt has dsg, excellent bruit at site - MUSCULOSKELETAL/RHEUMATOLOGICAL Hx Arthritis: Yes Hx Fractures: Yes (left hip) Hx Rheumatoid Arthritis: Yes (On HD) - GASTROINTESTINAL Hx Diverticulitis: Yes - GENITOURINARY/GYNECOLOGICAL Hx Genitourinary Disorders: Yes (VRE IN THE URINE.OLIGURIA.ESRD ON HD) - PSYCHIATRIC Hx Anxiety: Yes Hx Depression: Yes Hx Substance Use: No - SURGICAL HISTORY Hx Coronary Stent: Yes - ANESTHESIA Hx Anesthesia: Yes Hx Anesthesia Reactions: No Hx Malignant Hyperthermia: No Meds Allergies/Adverse Reactions: Allergies Allergy/AdvReac Type Severity Reaction Status Date / Time ceftriaxone Allergy ITCHING Verified 01/04/18 10:39 Physical Exam - Constitutional Appears: Chronically Ill, Other (lethargic but arousable by tactile stimuli) - Head Exam Head Exam: NORMAL INSPECTION - ENT Exam Additional comments: BiPAP mask in place - Neck Exam Neck exam: Negative for: Meningismus - Respiratory Exam Respiratory Exam: Decreased Breath Sounds - Cardiovascular Exam Cardiovascular Exam: +S1, +S2 - GI/Abdominal Exam GI & Abdominal Exam: Soft. absent: Tenderness - Extremities Exam Extremities exam: Negative for: pedal edema, tenderness Results - Vital Signs Recent Vital Signs: Last Vital Signs Temp 97.6 F 01/04/18 10:42 Pulse 70 01/04/18 12:54 Resp 18 01/04/18 12:54 BP 110/55 L 01/04/18 12:54 Pulse Ox 100 01/04/18 12:54 - Labs Result Diagrams: 01/04/18 10:55 01/04/18 10:55 Labs: Laboratory Results - last 24 hr 01/04/18 01/04/18 01/04/18 10:44 10:55 10:55 WBC 8.4 D RBC 3.38 L Hgb 10.2 L D Hct 33.6 L MCV 99.4 MCH 30.2 MCHC 30.4 L RDW 16.8 H Plt Count 125 MPV 9.0 Gran % 81.6 H Lymph % (Auto) 13.5 L [place] % (Auto) 4.8 Eos % (Auto) 0.0 L Baso % (Auto) 0.1 Gran # 6.82 H Lymph # (Auto) 1.1 L [place] # (Auto) 0.4 Eos # (Auto) 0.0 Baso # (Auto) 0.01 PT 13.7 H INR 1.19 APTT 29.1 pO2 VBG pH VBG pCO2 VBG HCO3 VBG Total CO2 VBG O2 Sat (Calc) VBG Base Excess VBG Potassium Sodium Chloride Glucose Lactate FiO2 Potassium Carbon Dioxide Anion Gap BUN Creatinine Est GFR ( Amer) Est GFR (Non-Af Amer) POC Glucose (mg/dL) 212 H Random Glucose Calcium Phosphorus Magnesium Total Bilirubin AST ALT Alkaline Phosphatase Troponin I Total Protein Albumin Globulin Albumin/Globulin Ratio Venous Blood Potassium Urine Color Urine Appearance Urine pH Ur Specific [place] Urine Protein Urine Glucose (UA) Urine Ketones Urine Blood Urine Nitrate Urine Bilirubin Urine Urobilinogen Ur Leukocyte Esterase Urine RBC Urine WBC Urine Bacteria 01/04/18 01/04/1818 10:55 10:55 11:25 WBC RBC Hgb Hct MCV MCH MCHC RDW Plt Count MPV Gran % Lymph % (Auto) [place] % (Auto) Eos % (Auto) Baso % (Auto) Gran # Lymph # (Auto) [place] # (Auto) Eos # (Auto) Baso # (Auto) PT INR APTT pO2 43 VBG pH 7.19 L* VBG pCO2 92.0 H* VBG HCO3 35.1 H VBG Total CO2 37.9 H VBG O2 Sat (Calc) 67.5 H VBG Base Excess 3.7 H VBG Potassium 4.5 Sodium 137.0 140 Chloride 98.0 95 L Glucose 165 H Lactate 2.1 FiO2 21.0 Potassium 4.7 Carbon Dioxide 35 H Anion Gap 14 BUN 24 H Creatinine 3.8 H Est GFR ( Amer) 14 Est GFR (Non-Af Amer) 11 POC Glucose (mg/dL) Random Glucose 164 H Calcium 8.6 Phosphorus 4.9 H Magnesium 2.0 Total Bilirubin 0.5 AST 38 H D ALT 9 Alkaline Phosphatase 105 Troponin I 0.03 D Total Protein 8.2 Albumin 3.3 Globulin 4.9 Albumin/Globulin Ratio 0.7 L Venous Blood Potassium 4.5 Urine Color Light brown Urine Appearance Cloudy Urine pH 8.0 Ur Specific [place] 1.020 Urine Protein >=300 H Urine Glucose (UA) Negative Urine Ketones Negative Urine Blood Large H Urine Nitrate Positive H Urine Bilirubin Small H Urine Urobilinogen 0.2 Ur Leukocyte Esterase Large H Urine RBC Tntc Urine WBC Tntc Urine Bacteria Large Assessment & Plan - Assessment and Plan (Free Text) Plan: Assessment systemic inflammatory response syndrome with encephalopathy, etiology to be determined, R/O CO2 narcosis with fluid overload, R/O severe sepsis from HCAP history of left perineal abscess S/P I and D, grew MRSA and Klebsiella - now still with residual skin and skin structure infection, growing MSSA and E. coli history of sepsis due to E. 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 diff. associated diarrhea S/P severe sepsis with acute sigmoid diverticulitis and acute cholecystitis history of acute NSTEMI history of sepsis due to acute descending colon diverticulitis and bilateral lobe healthcare-associated pneumonia history of healthcare-associated pneumonia (right upper lobe, bilateral lower lobes) HTN DM CAD with chronic CHF ESRD on HD Plan has been given a dose of IV Vancomycin and started Merrem and Doxycycline pending blood cx, urine cx, PCT; reviewed CXR which is more compatible with vascular congestion, but should get CXR repeated tomorrow will discuss with Dr. Ascencio will monitor clinically overall prognosis is poor patient is DNR and DNI
[2018-01-04 18:14] VITALS: BMI 24.9
[2018-01-04] MEDS ORDERED: Pneumococcal 23-Valent Vaccine IM ONE (18:15)
[2018-01-04 18:35] LABS: ARTERIAL BLOOD GAS HCO3 31.1 mmol/L (21-28); ARTERIAL BLOOD GAS HEMOGLOBIN 9.8 g/dL (11.7-17.4); ARTERIAL BLOOD GAS O2 CAPACITY 13.6 mL/dl (16-24); ARTERIAL BLOOD GAS O2 CONTENT 13.5 ML/dl (15-23); ARTERIAL BLOOD GAS O2 SAT 99.5 % (95-98); ARTERIAL BLOOD GAS PCO2 55 mm/Hg (35-45); ARTERIAL BLOOD GAS PH 7.36 (7.35-7.45); ARTERIAL BLOOD GAS TCO2 32.8 mmol.L (22-28)
[2018-01-04] MEDS: Meropenem 500 MG in Sodium Chloride 0.9% 50 ML IVPB SCH (18:52)
[2018-01-04] MEDS: Insulin Lispro (humaLOG) LOW Coverage SC SCH (18:52)
--- NOTE | 2018-01-04 19:25 | CON ---
Copied To: Barbi Linares MD Attending MD: Barbi Linares MD DATE: 01/04/2018 REASON FOR CONSULTATION: Respiratory failure, respiratory acidosis, and altered mental status. HISTORY OF PRESENT ILLNESS: An 82-year-old lady known to us from prior evaluations, outpatient hemodialysis. She was sent in from [facility] because of altered mental status. The patient is currently seen in the ICU. She is awake, but not following any commands, she is agitated. She just had a CT scan of her head. She is not responsive. She was scheduled for dialysis today. She had stable dialysis on Sunday. In the emergency room, she was found to be normotensive. She was also found to be short of breath. Her initial ABG showed pH of 7.1 with a pCO2 of 92. PAST MEDICAL AND SURGICAL HISTORY: Hypertension, hyperlipidemia, NIDDM, CAD, atrial fibrillation, diverticulosis, diverticulitis, multiple pneumonia, ESRD, and anemia of chronic kidney disease. FAMILY HISTORY: Noncontributory. SOCIAL HISTORY: No smoking, no alcohol use, no IV drug abuse. ALLERGIES: CEFTRIAXONE. MEDICATIONS: In the custodial included Crestor, Protonix, Synthroid, insulin, gabapentin, Pepcid, PhosLo, aspirin, and Tylenol. REVIEW OF SYSTEMS: Unavailable as the patient is unable to cooperate, she is not following any verbal commands. PHYSICAL EXAMINATION: GENERAL: Thinly built, cachectic-appearing elderly lady, lying in bed. VITAL SIGNS: Blood pressure 115/60, heart rate 72, respiratory rate 20, and temperature 97.6. HEENT: Normocephalic, atraumatic, positive pallor. NECK: Supple, no JVD. LUNGS: Bilateral rhonchi, bilaterally equal expansion, no rales appreciated. CARDIAC: S1 and S2, regular rate and rhythm, no murmur, no rub. ABDOMEN: Soft, nondistended, nontender, bowel sounds present. EXTREMITIES: No lower extremity edema, ulcer on the lateral aspect of the left heel. LABORATORY DATA: WBC 8.4, hemoglobin 10.2, hematocrit 34, and platelets 125. Sodium 140, potassium 4.7, chloride 95, CO2 of 35. BUN 24, creatinine 3.8. Glucose 164. Calcium 8.6, phosphorus 4.9, magnesium 2. AST 38, ALT 9. BNP 343,000. Albumin 3.3. ABG showing pH of 7.3, pCO2 of 75, pO2 of 161. Urine, light brown, cloudy, pH 8, specific gravity 1.020, protein greater than 300, blood large, nitrite positive, leukocyte esterase large. CT of the head; no intracranial hemorrhage, generalized atrophy. CURRENT MEDICATIONS: Doxycycline 100 every 12 hours, DuoNeb, insulin coverage, meropenem 500 every 12 hours, and Solu-Medrol 40 IV every 12 hours. ASSESSMENT: 1. Severe sepsis? 2. Altered mental status. 3. Urinary tract infection? 4. Respiratory failure/respiratory acidosis. 4. History of [id number] diabetes mellitus. 5. Hypertension. 6. Coronary artery disease/atrial fibrillation. 7. End-stage renal disease. 8. Diverticulosis/diverticulitis. PLAN: 1. Emergent dialysis. 2. CPAP. 3. Close monitoring in the ICU. 4. Agree with empiric antibiotics. 5. DNR/DNI noted. 6. Case discussed with ICU attending, ICU residents. Case discussed with dialysis nurse. Case discussed with Dr. Ascencio. More than 35 minutes spent in the care of this critically ill patient. Barbi Linares MD
[2018-01-04 19:33] LABS: CALCIUM 7.9 mg/dL (8.4-10.5)
[2018-01-04] MEDS: Albuterol-Ipratrop 3 mg / 0.5 (3 ml) UD IH SCH (20:15)
--- NOTE | 2018-01-04 20:55 | CARD ---
APPROVED REPORT Date of service: 01/04/2018 EKG Measurement Heart [id number] <Conclusion> Sinus rhythm with 1st degree AV block with premature atrial complexes with aberrant conduction Septal infarct, age undetermined Abnormal ECG
--- NOTE | 2018-01-04 21:04 | CARD ---
APPROVED REPORT Date of service: 01/04/2018 EKG Measurement Heart [id number] <Conclusion> Sinus tachycardia with 1st degree AV block Septal infarct, age undetermined ST & T wave abnormality, consider lateral ischemia Abnormal ECG
[2018-01-05] MEDS: Albuterol-Ipratrop 3 mg / 0.5 (3 ml) UD IH SCH ×4 (01:00→21:00)
[2018-01-05] MEDS: Insulin Lispro (humaLOG) LOW Coverage SC SCH ×3 (06:00→11:39)
[2018-01-05 06:15] LABS: GRAN # 6.37 (1.4-6.5); GRAN % 91.4 % (50.0-68.0); HEMOGLOBIN 10.7 g/dL (12.0-16.0); LYMPH # 0.5 (1.2-3.4); LYMPH % 7.7 % (22.0-35.0); MEAN CELL VOLUME 98.4 fl (80.0-105.0); MEAN CORPUSCULAR HEMOGLOBIN 28.8 pg (25.0-35.0); MEAN CORPUSCULAR HGB CONC 29.3 g/dl (31.0-37.0); MEAN PLATELET VOLUME 9.3 fl (7.0-11.0); MONO # 0.1 (0.1-0.6); MONO % 0.9 % (1.0-6.0); PLATELET COUNT 126 10^3/uL (120.0-450.0); RBC 3.71 10^6/uL (3.5-6.1); RED CELL DISTRIBUTION WIDTH 16.8 % (11.5-14.5)
[2018-01-05 06:20] LABS: INR 1.12; PARTIAL THROMBOPLASTIN TIME 30.1 Seconds (25.1-36.5); PROTHROMBIN TIME 12.9 SECONDS (9.4-12.5)
[2018-01-05 06:27] LABS: ALB/GLOB RATIO 0.7 (1.1-1.8); ALBUMIN 3.4 g/dL (3.0-4.8); CALCIUM 8.2 mg/dL (8.4-10.5)
--- NOTE | 2018-01-05 07:31 | HP ---
HISTORY OF PRESENT ILLNESS: An 82-year-old female who was referred to [facility] when she was found to be with an altered mental status at her rehab facility. She also had increased shortness of breath and lethargy and patient has a history of chronic kidney disease on dialysis four times a week, pleural effusion, pneumonia, hypothyroid disease, sepsis, hip surgery, diabetes mellitus, diverticulosis, diverticulitis, hypercholesterolemia, hyperlipidemia, hypertension, ischemic heart disease, history of myocardial infarction cholecystitis, respiratory failurediabetes.. SOCIAL HISTORY: She is a nonsmoker, nondrinker, nondrug user. She has a living will. She is a DNR/DNI. ALLERGIES: SHE HAS AN ALLERGY TO CEFTRIAXONE. HOME MEDICATIONS: Reported to be Ecotrin 81 mg daily, PhosLo 667 mg b.i.d., Procrit 4000 units IV every weekly, Pepcid 20 mg daily, Neurontin 100 mg daily, sliding insulin scale, Synthroid 50 mcg daily, Protonix 20 mg daily, Crestor 2.5 mg daily, Nephro-Emiliano one tablet daily, vitamin A and D ointment put topically p.r.n., baclofen 10 mg every 12. REVIEW OF SYSTEMS: Twelve systems are reviewed. Pertinent findings as stated in the physical exam. PHYSICAL EXAMINATION: GENERAL: The patient is on a stretcher in the emergency room, currently with a BiPAP unit on. VITAL SIGNS: She is reported to have a rectal temp of 97.6, pulse was 102, blood pressure was 161/80, respiratory rate was 28. She was on a BiPAP with oxygen saturation in the 100%. NECK: Supple. LUNGS: Show bibasilar rhonchi. HEART: S1, S2, with grade 3/6 systolic murmur at the left cardiac border. ABDOMEN: Soft, scaphoid with positive bowel sounds. EXTREMITIES: Show no evidence of edema. There are dressings on both feet. DIAGNOSTIC DATA: Her CAT scan of the head is reported as showing microvascular disease with atrophy. LABORATORY DATA: CBC showed WBC of 8.4, RBC 3.38, hemoglobin 10.2, hematocrit 33.6, platelet count 125. PT of 13.7, INR 1.19. PTT of 29.1. Blood gas showed a lactate of 2.1 venous. Her pCO2 is reported as 75, arterial. The chemistry showed sodium 140, potassium 4.7, chloride 95, CO2 of 35, BUN of 24, creatinine is 3.8. Random glucose is 164. Phosphorous is 4.9, calcium 8.6. AST is 38. BNP is 343,000. Procalcitonin is 1.18. Albumin is 3.3. ASSESSMENT: 1. Altered mental status. 2. Respiratory failure. 3. Sepsis. 4. Valvular heart disease. 5. Chronic kidney disease. 6. Hypothyroid disease. 7. Diabetes mellitus. PLAN: Given the clinical setting, current labs and the discussion with the emergency room, request was made for the patient to be evaluated for the intensive care unit by the hand stripper, Dr. Hicks. At the same time, a request has been made for Infectious Disease and Renal. Shavonne Ascencio MD MTDJose J
[2018-01-05 08:13] LABS: NEUTROPHIL 97 % (50.0-70.0); PLATELET ESTIMATE LOW (NORMAL)
[2018-01-05 08:21] LABS: MONOCYTE 0 % (1.0-6.0)
[2018-01-05 08:22] LABS: LYMPHOCYTE 3 % (22.0-35.0)
[2018-01-05] MEDS: Meropenem 500 MG in Sodium Chloride 0.9% 50 ML IVPB SCH ×2 (09:56→21:10)
[2018-01-05] MEDS: MethylPREDNISolone 40 mg Vial IVP SCH ×2 (09:57→21:11)
--- NOTE | 2018-01-05 10:30 | PN ---
DATE: 01/05/2018 SUBJECTIVE: The patient is in bed, in no acute distress, nontoxic. PHYSICAL EXAMINATION VITAL SIGNS: Temperature is 98, blood pressure is 140/50, respiratory rate of 18. HEENT: Unremarkable. NECK: Supple. LUNGS: Have decreased breath sounds. HEART: Normal S1 and S2. ABDOMEN: Soft. Nontender. LABORATORY DATA: Reveals a white count of 7, hemoglobin of 10, platelets of 126. Chemistries are noted. BUN of 22, creatinine of 2.1. ASSESSMENT AND PLAN: An 82-year-old with hypertension, diabetes, coronary artery disease, chronic congestive heart failure, end-stage renal disease, on hemodialysis, from a f[facility], admitted with systemic inflammatory response syndrome and encephalopathy and possible CO2 narcosis, fluid overload versus severe sepsis, healthcare-associated pneumonia in this patient who is currently on intermittent vancomycin, doxycycline, and meropenem. Cultures are pending and the patient's initial chest x-ray is reported to be from yesterday, evidence of interstitial congestion and bilateral effusions. We will follow with you. Jeromy Castellanos MD
--- NOTE | 2018-01-05 11:17 | CP.PCM.PN ---
Subjective - Date & Time of Evaluation Date of Evaluation: 01/05/18 Time of Evaluation: 08:00 - Subjective Subjective: Patient seen and examined at bedside, OFF BIPAP, in NAD, sleeping, but arousable. Objective - Vital Signs/Intake and Output Vital Signs (last 24 hours): Temp Pulse Resp BP Pulse Ox 98.2 F 76 43 H 144/57 L 100 01/05/18 04:00 01/05/18 06:50 01/05/18 06:50 01/05/18 06:00 01/05/18 06:50 Intake and Output: 01/05/18 01/05/18 06:59 18:59 Intake Total 100 Balance 100 - Medications Medications: Current Medications Albuterol/Ipratropium (Duoneb 3 Mg/0.5 Mg (3 Ml) Ud) 3 ml IH Q3 RUTHANN Aspirin (Aspirin Chewable) 81 mg PO 0800 RUTHANN Calcium Acetate (Phoslo) 667 mg PO BIDWM RUTHANN Dextrose (Dextrose 50% Inj) 0 ml IV STAT PRN; Protocol PRN Reason: Hypoglycemia Protocol Gabapentin (Neurontin) 100 mg PO HS RUTHANN PRN Reason: Protocol Dextrose (Dextrose 5% In Water 1000 Ml) 1,000 mls @ 0 mls/hr IV .Q0M PRN; Protocol; Per Protocol PRN Reason: Hypoglycemia Protocol Meropenem 500 mg/ Sodium (Chloride) 50 mls @ 100 mls/hr IVPB Q12 RUTHANN PRN Reason: Protocol Stop: 01/11/18 17:01 Last Admin: 01/05/18 09:56 Dose: 100 mls/hr Doxycycline Hyclate 100 mg/ (Sodium Chloride) 100 mls @ 100 mls/hr IVPB Q12 RUTHANN PRN Reason: Protocol Last Admin: 01/05/18 09:57 Dose: 100 mls/hr Insulin Human Lispro (Humalog Low) 0 units SC Q6 RUTHANN PRN Reason: Protocol Last Admin: 01/05/18 06:00 Dose: Not Given Levothyroxine Sodium (Synthroid) 50 mcg PO DAILY@0630 REPLACED BY [facility] Methylprednisolone (Solu-Medrol) 20 mg IVP Q12 REPLACED BY [facility] Last Admin: 01/05/18 09:57 Dose: 20 mg - Labs Labs: 01/05/18 05:00 01/05/18 05:00 PT 12.9 SECONDS (9.4-12.5) H 01/05/18 05:00 INR 1.12 01/05/18 05:00 APTT 30.1 Seconds (25.1-36.5) 01/05/18 05:00 - Constitutional Appears: Non-toxic, No Acute Distress, Cachectic, Chronically Ill - Head Exam Head Exam: NORMAL INSPECTION - ENT Exam ENT Exam: Mucous Membranes Moist - Respiratory Exam Respiratory Exam: Clear to Ausculation Bilateral, NORMAL BREATHING PATTERN - Cardiovascular Exam Cardiovascular Exam: REGULAR RHYTHM, +S1, +S2 - GI/Abdominal Exam GI & Abdominal Exam: Soft, Normal Bowel Sounds - Neurological Exam Neurological Exam: Awake - Skin Skin Exam: Erythema, Warm Assessment and Plan - Assessment and Plan (Free Text) Assessment: Patient is 82yo female with pmh HTN, HLD, DM, CHF, COPD, CAD, ESRD on HD, diverticulitis presented with lethargy, and AMS. Patient was started on Abx and placed on BIPAP, after ABG revealed acute on chronic, resp acidosis. Patient was weaned off BIPAP to 2LNC, sat 100%, awake, alert, speaking Swedish. Currently the patient afebrile, BP stable, comfortable in NAD Labs, imaging, chart reviewed. CXR with pulm edema. Patient had short course of HD yesterday due to BP instability. Possible HD today. CT head negative for acute findings ESRD on HD Acute on chronic resp acidosis UTI COPD exacerbation AMS Recommend: - cont with supp o2 as needed, repeat ABG as per Pulmonary, dunebs PRN - Solumedrol IV 20mg IV BID - Pulmicort - Broad spectrum abx, as per ID, cover for Urosepsis - follow up cultures, UCx, BCx, - HD as per renal - FS control - GI ppx - DVT ppx - Pt is DNR/DNI - Stable, transfer to Tele
--- NOTE | 2018-01-05 19:28 | CON ---
Copied To: Jamie Malone MD Attending MD: Jamie Malone MD DATE: 01/05/2018 PULMONARY CONSULTATION HISTORY OF PRESENT ILLNESS: Margo Uriarte is an 82-year-old woman transferred from the long-term/rehab facility after episode of altered mental status and shortness of breath. She became lethargic in the long-term and was being for evaluated and at the time of her transfer, she has a history of chronic kidney disease. She is on hemodialysis according to the chart four times weekly. She has a history of pleural effusions. Additional history includes recent pneumonia. She has had hypothyroid disease, sepsis, and diabetes mellitus with diverticular disease. The history has been gleaned from the chart and discussed at length with Dr. Shavonne Ascencio, her primary medical doctor. She also has a history of ischemic heart disease, having sustained a myocardial infarction in the past. SOCIAL HISTORY: The patient is a nonsmoker. She has a living will and is a DNR/DNI. FAMILY HISTORY: No inheritable diseases ALLERGIES: CEFTRIAXONE. OUTPATIENT MEDICATIONS: Include PhosLo, Procrit, Pepcid, Crestor, Protonix, and Neurontin. REVIEW OF SYSTEMS: Cannot be done. Case discussed with Dr. Ascencio and offers no additional history. All other systems negative. PHYSICAL EXAMINATION: GENERAL: The patient is lying in bed, having been on BiPAP last night, but resting comfortably with supplemental oxygen only this morning. She is poorly responsive. The RN reports that this has been her status since coming to the hospital. VITAL SIGNS: Show that she is afebrile with a pulse of 100, blood pressure 160/80, respiratory rate 22, supplemental oxygen shows an oxygen saturation of 96%. NECK: Supple. No jugular venous distention. No bruit. No lymphadenopathy. HEART: Regular rhythm. Systolic ejection murmur approximately grade 3/6 at the lower left sternal border. S1, S2 without gallop. LUNGS: Bilateral rhonchi and rales. No wheezing appreciated. ABDOMEN: Soft. Bowel sounds normoactive without mass, guarding, or rebound. EXTREMITIES: Reveal no clubbing, cyanosis, or edema. There are dressings on the feet. DIAGNOSTIC DATA: Chest x-ray is completely unintelligible, being closely under penetrated. It has not yet been repeated. LABORATORY DATA: Shows a white count of 8000, hemoglobin 10.2, and platelet count 125,000. Coagulation; PT 13.7. The last arterial blood gas done at 18:30 on 01/04/2018, shows a pH of 7.36, pCO2 of 55, and pO2 of 122. This is on 40% oxygen. It is unclear whether this was on BiPAP or not. Chemistries show a sodium of 138, potassium 4.8, chloride 93, CO2 of 31. BUN 22, creatinine 3.1. Random sugar 165. IMPRESSION: 1. Altered mental status. 2. Respiratory failure. 3. Sepsis. 4. Coronary artery disease/valvular heart disease. 5. Chronic kidney disease. 6. Diabetes mellitus. PLAN: We need to repeat the chest x-ray to make sure that there are no other pulmonary pathology noted. The first x-ray is unintelligible. An arterial blood gas needs to be done off BiPAP to see if further supportive measures are required, although the patient is a DNR/DNI. BiPAP has been considered to be appropriate for this patient by the primary medical physician. We will monitor closely from the pulmonary point of view. Pending further evaluation by other specialties. Case has been discussed with Dr. Ascencio and the soft metals engraver hand. Jamie Malone MD MTDD
--- NOTE | 2018-01-05 19:56 | PN ---
DATE: 01/05/2018 SUBJECTIVE: This is an 82-year-old female in the intensive care unit, [facility] with an altered mental status. PHYSICAL EXAMINATION: GENERAL: The patient is agitated, speaking in Nigerian, however. VITAL SIGNS: The patient has a temp of 98.2, pulse is 82, respiratory rate is 34, oxygen saturation of 95% on nasal cannula. HEART: Regular S1, S2 rhythm with grade 2/6 systolic murmur. LUNGS: Show diminished breath sounds at the bases. ABDOMEN: Soft, scaphoid with positive bowel sounds. EXTREMITIES: No evidence of edema. LABORATORY DATA: Shows a WBC of 7, RBC 3.71, hemoglobin 10.7, hematocrit 36.5, platelet count is 126. Chemistry shows normal electrolytes, BUN is 20 with creatinine of 3.1. Blood sugar is 165. The patient is on chronic dialysis. She is not able to complete her course of dialysis yesterday, possible dialysis today. She is receiving IV antibiotics per Infectious Disease. Blood cultures at 24 hours are negative to date. Urine culture is pending. She is on sliding insulin scale for her diabetes. She is on PhosLo replacement therapy, Solu-Medrol, Synthroid, and aspirin. She has a living will. She is a DNR/DNI. Continue current level of care with supportive therapy. She is being followed by Pulmonary, Infectious Disease and Renal. Family is aware of the patient's clinical status. Shavonne Ascencio MD
[2018-01-06] MEDS: Insulin Lispro (humaLOG) LOW Coverage SC SCH ×4 (01:00→18:15)
[2018-01-06] MEDS: Albuterol-Ipratrop 3 mg / 0.5 (3 ml) UD IH SCH ×7 (03:05→20:36)
[2018-01-06] MEDS: Levothyroxine 50 MCG TAB PO SCH (05:30)
[2018-01-06 06:25] LABS: INR 1.24; PARTIAL THROMBOPLASTIN TIME 29.2 Seconds (25.1-36.5); PROTHROMBIN TIME 14.3 SECONDS (9.4-12.5)
[2018-01-06 06:33] LABS: HEMOGLOBIN 9.5 g/dL (12.0-16.0); MEAN CELL VOLUME 97.3 fl (80.0-105.0); MEAN CORPUSCULAR HGB CONC 29.8 g/dl (31.0-37.0); RBC 3.28 10^6/uL (3.5-6.1); RED CELL DISTRIBUTION WIDTH 17.2 % (11.5-14.5); WHITE BLOOD COUNT 7.4 10^3/ul (4.5-11.0)
[2018-01-06 06:34] LABS: GRAN # 6.33 (1.4-6.5); GRAN % 85.7 % (50.0-68.0); LYMPH # 0.8 (1.2-3.4); LYMPH % 10.6 % (22.0-35.0); MEAN PLATELET VOLUME 8.7 fl (7.0-11.0); MONO # 0.3 (0.1-0.6); MONO % 3.7 % (1.0-6.0)
[2018-01-06 06:44] LABS: ALB/GLOB RATIO 0.8 (1.1-1.8); ALBUMIN 3.5 g/dL (3.0-4.8)
[2018-01-06] MEDS: Meropenem 500 MG in Sodium Chloride 0.9% 50 ML IVPB SCH ×2 (10:57→21:21)
[2018-01-06] MEDS: MethylPREDNISolone 40 mg Vial IVP SCH ×2 (10:57→21:22)
--- NOTE | 2018-01-06 12:32 | PN ---
DATE: 01/06/2018 SUBJECTIVE: The patient is in bed in 128, bed 4. The patient is seen earlier in [facility], bed 4. The patient has no fevers, no chills. PHYSICAL EXAMINATION: VITAL SIGNS: Temperature of 98, blood pressure is 140/50, respiratory rate of 18, heart rate of 77. HEENT: Unremarkable. NECK: Supple. LUNGS: Have decreased breath sounds. HEART: Normal S1, S2. ABDOMINAL: Soft, nontender. LABORATORY EXAMINATION: Reveals a white count of 7.4, hemoglobin of 9, platelets of 131. Coagulation is noted. Chemistries reveals a BUN of 43, creatinine of 3.8. Urinalysis is noted. Microbiology reveals the nares screen is negative. Urine culture is negative. Blood cultures are negative. Review of orders reveals the patient to be on IV doxycycline and meropenem. The patient is also on Solu-Medrol. The patient's procalcitonin is 1.26 in face of renal failure. Dr. Ascencio' note from yesterday is reviewed. ASSESSMENT AND PLAN: An 82-year-old female seen earlier today in [facility], bed 4 with history of diabetes and hypertension, coronary artery disease, end-stage renal disease on hemodialysis, congestive heart failure. The patient is from a snf with systemic inflammatory response syndrome and encephalopathy, possible CO2 narcosis, fluid overload versus severe sepsis with healthcare-associated pneumonia on intermittent vancomycin, doxycycline and meropenem. Chest x-ray is noted. Interstitial congestion. Methicillin-resistant Staphylococcus aureus screen is negative on meropenem and doxycycline day #3.. The patient did not have any fevers. We would complete 4 to 7 days of meropenem, today is day #3. We will discontinue the doxycycline. Jeromy Castellanos MD
--- NOTE | 2018-01-06 12:49 | PN ---
DATE: 01/06/2018 PULMONARY PROGRESS NOTE LOCATION: In the intensive care unit. SUBJECTIVE: The patient is clearly different now than she was yesterday. She is awake and alert, disoriented, screaming, carrying on with no signs of respiratory insufficiency. She has come out of her stuporous state and I cannot accurately evaluate her mental status or pulmonary status from her continuous yelling. She has no signs of dyspnea. She had refused the blood gas earlier. OBJECTIVE: VITAL SIGNS: Stable. Heart rate 100, respiratory rate appears to be 20, blood pressure reported at 160/70. GENERAL: Agitated, calling out, yelling. NECK: Supple. No jugular venous distention. CHEST: Has scattered rales and rhonchi. HEART: Regular rhythm, tachycardic. S1, S2. Cannot appreciate a murmur or gallop at this time. ABDOMEN: Soft. Bowel sounds normoactive. : Within normal limits EXTREMITIES: Reveal no clubbing, cyanosis or edema. NEUROLOGIC: As per manager process improvement. SKIN: Dry; intact ASSESSMENT AND PLAN: The patient will need further evaluation by manager process improvement and primary medical doctor. Once she is stable, she should have followup chest x-ray. Pulse oximetry appears to be stable. We will be able to better evaluate her on physical exam when she is more calm. We will follow closely with you as required. An adequate chest x-ray will be necessary to assess any further changes. Jamie Malone MD MTDD
--- NOTE | 2018-01-06 14:40 | CON ---
DATE: 01/06/2018 CHIEF COMPLAINT: Altered mental status. HISTORY OF PRESENT ILLNESS: This is an 82-year-old woman with history of hypertension, hyperlipidemia, diabetes, CHF, COPD, CAD, end-stage renal disease, on hemodialysis, who presented with lethargy and altered mental status, found to have uibcl-ob-utgvhwi respiratory acidosis, was on BiPAP, now off BiPAP, is currently been agitated and screaming. After me evaluating the patient and calming her down, she is doing much better, moving all extremities and her respiratory status is currently stable. She follows simple commands, moving all extremities, recall after 5 minutes is 0/3. She has poor attention span and slow thought process. SOCIAL HISTORY: No illicit drug use, smoking, EtOH abuse. ALLERGIES: NOTED FOR CEFTRIAXONE. PAST MEDICAL HISTORY: As above. FAMILY HISTORY: Noncontributory. REVIEW OF SYSTEMS: A 14-point review of systems is negative as per the HPI. LABORATORY DATA: Sodium is 139, potassium 5.2, chloride 95, carbon dioxide 30, BUN of 43, creatinine 3.8, and random glucose 151. PHYSICAL EXAMINATION: VITAL SIGNS: Afebrile, pulse rate 100, blood pressure of 144/58, 99% via nasal cannula. GENERAL: The patient is staying up in bed, in no acute distress. HEENT: Head is atraumatic, normocephalic. PERRLA. Extraocular muscles intact. NECK: Supple. No JVD, no adenopathy noted. LUNGS: Scattered rhonchi, otherwise, no acute abnormalities. HEART: S1, S2. Normal rate and rhythm. No murmurs, rubs, or gallops. ABDOMEN: Soft, nontender, normoactive bowel sounds present. EXTREMITIES: No clubbing. No cyanosis. Peripheral pulses are 2+ felt bilaterally. NEUROLOGIC: The patient is alert and oriented to person and place, not much to month or year. Recall after 5 minutes is 0/3. Poor attention span. Speech is fluent without any errors. Cranial nerves II through XII intact. Motor: Slightly increased tone, moves all extremities. No pronator drift seen. DTRs are 2+ throughout and 1 at both knees and ankles. Coordination: Rxchlv-ke-hswj intact. No dysmetria noted. Gait is deferred for now. ASSESSMENT AND PLAN: This is an 82-year-old woman with history of hypertension, hyperlipidemia, type 2 diabetes mellitus, congestive heart failure, chronic obstructive pulmonary disease, coronary artery disease, end-stage renal disease, on hemodialysis, diverticulitis, presenting with lethargy and altered mental status, found to have htzcp-rb-fzslwru respiratory acidosis and chronic obstructive pulmonary disease exacerbation, was on bilevel positive airway pressure, now off of bilevel positive airway pressure. CAT scan of head showed acute intracranial abnormalities. I was consulted for confusion as the patient is in a state of delirium from underlying ICU delirium in addition to doing it from chronic medical condition superimposed on mild cognitive impairment. RECOMMENDATIONS: At this time, we will recommend: 1. Continue with supplemental oxygen as needed. 2. Monitor electrolytes accordingly. 3. Delirium precautions. 4. Aspirin 81 mg for stroke prevention. 5. Gabapentin 100 mg p.o. ____ for neuropathic relief. 6. Seroquel 12.5 mg p.o. at bedtime for agitation. Once again, thank you for this consult. Michelet Hoffman MD
[2018-01-06] MEDS ORDERED: Vitamins A & D Oint UD Foilpak TOP PRN (16:00)
--- NOTE | 2018-01-06 19:17 | PN ---
DATE: 01/05/2018 SUBJECTIVE: The patient is seen lying in bed in the ICU. She is awake, she is arousable, but she is somewhat confused. Unclear what she is saying. Unclear if she recognizes me. She is recognizing her son. She is speaking to him in Sinhala. He says she is making sense, but she is saying things like she just woke up to say goodbye to everybody. She denies any pain. She denies any shortness of breath. PHYSICAL EXAMINATION: GENERAL: Elderly lady lying in bed in the ICU. VITAL SIGNS: Blood pressure 114/43, heart rate 99, respiratory rate 24, temperature 98.7. HEENT: Normocephalic, atraumatic, positive pallor. NECK: Supple, no JVD. LUNGS: Bilateral equal air entry, bilateral equal expansion, no rales. CARDIAC: S1,S2, regular rate rhythm, no murmur, no rub. ABDOMEN: Soft, nondistended, nontender, bowel sounds present. EXTREMITIES: No lower extremity edema. LABORATORY DATA: WBC 7.4, hemoglobin 9.5, hematocrit 32, platelets 131. Sodium 138, potassium 4, chloride 93, CO2 of 31, BUN 22, creatinine 3.1, glucose 165, calcium 8.2, phosphorus 5.8, magnesium 1.9, albumin 3.4. Cultures no growth so far. CURRENT MEDICATIONS: Aspirin, DuoNeb, insulin, meropenem 500 every 12 hours, Neurontin, PhosLo, Seroquel, Solu-Medrol, Synthroid, doxycycline 100 every 12 hours. ASSESSMENT: 1. Altered mental status, etiology unclear, sepsis?. 2. Respiratory acidosis, metabolic alkalemia. 3. Decompensated congestive heart failure. 4. Yrh-yaidnxd-uinbzrozd diabetes mellitus. 5. History of hypertension. 6. History of coronary artery disease. 7. History of diverticulosis/diverticulitis. PLAN: 1. Currently no indication for dialysis. 2. Altered mental status seems to be somewhat improved. 3. Electrolytes within normal limits. 4. The patient had urgent dialysis yesterday. 5. We will continue to monitor closely in the ICU. 6. Case discussed with son at bedside. 7. Case discussed with ICU staff. 8. Case discussed with dialysis staff. More than 35 minutes was spent in the care of this critically ill patient. Barbi Linares MD [facility] # [id number]
--- NOTE | 2018-01-06 22:48 | PN ---
DATE: 01/06/2018 FOLLOWUP NOTE SUBJECTIVE: The patient is seen in ICU 128, bed 4. She is talking irrelevantly, continuously. She is a little agitated. The content of the talk are not relevant. No fevers, no chills, rigors. No shortness of breath. No chest pain. No events overnight. REVIEW OF SYSTEMS: As per HPI. Rest of 12-point review of systems reviewed and negative. PHYSICAL EXAMINATION: VITAL SIGNS: Temperature 98, blood pressure 130/50, respiratory rate 18 per minute, heart rate is 75 per minute. HEENT: Pallor positive. NECK: No lymphadenopathy. CHEST: Decreased breath sounds bilateral. No crepitations. No rhonchi. HEART: S1, S2 normal. No murmur. No gallop. ABDOMEN: Soft, nontender. No hepatosplenomegaly. EXTREMITIES: No edema. CENTRAL NERVOUS SYSTEM: No focal sensorimotor deficit. A little agitated, talking irrelevantly. LABORATORY DATA: White count 7.4, hemoglobin 9.5, hematocrit 31.9, platelets 131. Sodium 139, potassium 5.2, creatinine 3.8. MEDICATIONS: DuoNeb every 6 hours p.r.n., Azactam, doxycycline every 12 hours, Solu-Medrol 40 mg every 12 hours, Zofran 4 mg p.r.n., vancomycin intermittently. ASSESSMENT: 1. Carbon dioxide narcosis. 2. End stage renal disease, on hemodialysis. 3. Chronic obstructive pulmonary disease. 4. Coronary artery disease. 5. Chronic kidney disease, stage IV. 6. Hyperkalemia. 7. Anemia, chronic. PLAN: Dr. Linares's note reviewed. She received emergent dialysis yesterday. According to her note, she does not need to continue dialysis. Altered mental status, she is taking irrelevantly, unstoppable. Neurology consultation of Dr. Hoffman appreciated. She has decompensated heart failure, coronary artery disease. Hemoglobin declined today, we will continue to monitor closely. Neurology recommended Seroquel 12.5 mg p.o. at bedtime for agitation. She will be transferred to regular floor once the bed is available. Discussed with the ICU team. Maxine Louise MD
[2018-01-07] MEDS: Insulin Lispro (humaLOG) LOW Coverage SC SCH ×4 (06:11→17:08)
[2018-01-07] MEDS: Levothyroxine 50 MCG TAB PO SCH (06:12)
[2018-01-07 06:44] LABS: GRAN # 4.8 (1.4-6.5); GRAN % 68.8 % (50.0-68.0); HEMOGLOBIN 9.8 g/dL (12.0-16.0); LYMPH # 1.6 (1.2-3.4); LYMPH % 22.9 % (22.0-35.0); MEAN CELL VOLUME 97.6 fl (80.0-105.0); MEAN CORPUSCULAR HEMOGLOBIN 29.8 pg (25.0-35.0); MEAN CORPUSCULAR HGB CONC 30.5 g/dl (31.0-37.0); MEAN PLATELET VOLUME 8.8 fl (7.0-11.0); MONO # 0.6 (0.1-0.6); MONO % 8.3 % (1.0-6.0); RBC 3.29 10^6/uL (3.5-6.1); RED CELL DISTRIBUTION WIDTH 17.5 % (11.5-14.5)
[2018-01-07 06:51] LABS: INR 1.18; PROTHROMBIN TIME 13.6 SECONDS (9.4-12.5)
[2018-01-07 06:54] LABS: ALB/GLOB RATIO 0.8 (1.1-1.8); ALBUMIN 3.4 g/dL (3.0-4.8); CALCIUM 7.6 mg/dL (8.4-10.5)
--- NOTE | 2018-01-07 07:59 | PN ---
DATE: 01/07/2018 PULMONARY NOTE SUBJECTIVE: The patient appears very comfortable this morning. She is not short of breath at rest. OBJECTIVE: VITAL SIGNS: Temperature is 98.4, pulse 76, respirations 18, blood pressure 119/53. Oxygen saturation on nasal cannula is 100%. HEENT: Normocephalic, atraumatic. No JVD. CARDIOVASCULAR: Systolic ejection murmur at the lower left sternal border. Positive S3 gallop. LUNGS: Crackles at both bases. Very minimal rhonchi. No wheezing. EXTREMITIES: Mild edema. No cyanosis, no clubbing. Calves are nontender to palpation. GI: Abdomen is soft, nontender and nondistended. Bowel sounds are positive. SKIN: No acute rash. NEUROLOGIC: Exam limited at the present time. PERTINENT LABORATORY DATA: Chest x-ray was done this morning and reviewed. The chest x-ray remains with moderately severe pulmonary vascular congestion and bilateral pleural effusions. IMPRESSION: 1. Acute congestive heart failure. 2. End-stage renal disease. 3. Chronic pleural effusions. 4. Anemia. 5. Mild bronchospasm. 6. Coronary artery disease. PLAN: The patient appears comfortable this morning. She is not short of breath at rest. I did discuss the case with the night nurse at length. The night nurse stated the patient had a very good night. I did review the chest x-ray as above. The chest x-ray remains with moderately severe pulmonary edema and chronic bilateral pleural effusions. Input by renal is noted. Hopefully, the patient will be dialyzed this morning. On physical exam, there is no significant bronchospasm. In addition, there is no significant alveolar-arterial gradient. The patient is on nebulizer treatments every 3 hours. I will change the nebulizer to every 6 hours. The patient is also on low-dose intravenous steroids. Clinical status of the patient appears improved - compared to the initial presentation. However, the future status/prognosis for this patient appears poor. I will discuss the above with the entire ICU team in the next few moments. I will also discuss the above with Dr. Ascencio later this morning. Joni Perkins MD [facility] # [id number] MTDD
--- NOTE | 2018-01-07 08:42 | RAD ---
Date of service: 01/07/2018 HISTORY: Follow-up COMPARISON: 01/04/2018 FINDINGS: LUNGS: Worsening pulmonary edema. PLEURA: Increasing pleural effusions. CARDIOVASCULAR: Cardiomegaly/worsening CHF. OSSEOUS STRUCTURES: No significant abnormalities. VISUALIZED UPPER ABDOMEN: Normal. OTHER FINDINGS: None. IMPRESSION: Progressive/worsening congestive heart failure with pulmonary edema and increasing bilateral pleural effusions.
[2018-01-07] MEDS: Albuterol-Ipratrop 3 mg / 0.5 (3 ml) UD IH SCH ×4 (08:51→19:40)
[2018-01-07] MEDS: Meropenem 500 MG in Sodium Chloride 0.9% 50 ML IVPB SCH ×2 (09:39→23:00)
[2018-01-07] MEDS: MethylPREDNISolone 40 mg Vial IVP SCH ×2 (10:45→23:04)
--- NOTE | 2018-01-07 12:16 | PN ---
DATE: 01/07/2018 NEUROLOGY FOLLOWUP CHIEF COMPLAINT: Followup for altered mental status. SUBJECTIVE: The patient was seen and examined at bedside. Much more quiet today. Mildly confused, but otherwise is doing well. No acute events overnight. Chest x-ray today shows some progressively worsening congestive heart failure with pulmonary edema and increasing bilateral pleural effusions. Respiratory on board. PAST MEDICAL HISTORY: History of COPD; hypertension; diabetes; CHF; CAD; end-stage renal disease, on hemodialysis. ALLERGIES: ALLERGIC TO CEFTRIAXONE. FAMILY HISTORY: Noncontributory. REVIEW OF SYSTEMS: Fourteen-point review of systems is negative as per the HPI. LABORATORY DATA: Sodium is 137, potassium 5, chloride 94, carbon dioxide of 31, BUN of 61, creatinine 4.2, random glucose of 127. PHYSICAL EXAMINATION: VITAL SIGNS: Temperature afebrile, pulse rate of 69, blood pressure of 104/56, respiratory rate of 12, oxygen saturation 100% on 3 L nasal cannula. GENERAL: The patient is lying in bed, in no acute distress. HEENT: Atraumatic, normocephalic. PERRLA. Extraocular muscles intact. NECK: Supple. No JVD, no adenopathy noted. LUNGS: Decreased breath sounds bilaterally. HEART: S1, S2. Normal rate and rhythm. No murmurs, rubs or gallops. ABDOMEN: Soft, nontender and nondistended. Bowel sounds are present. EXTREMITIES: No clubbing. No cyanosis. Peripheral pulses 2+ felt bilaterally. NEUROLOGIC: The patient is alert and oriented to person and place. Not much of month or year. Recall after 5 minutes is 0/3. Poor attention span, slow thought process. Speech is fluent without any errors. No aphasia noted. Cranial nerves II through XII are intact. Motor exam: Slightly increased tone throughout. Moves all extremities equally. No pronator drift seen. DTRs are 2+ throughout and 1 at both ankles and ankle. Toes are downgoing bilaterally. Coordination: [id number] intact. No dysmetria noted. Gait is deferred for now. ASSESSMENT AND PLAN: This is an 82-year-old woman with history of hypertension; hyperlipidemia; type 2 diabetes mellitus; congestive heart failure; chronic obstructive pulmonary disease; coronary artery disease; end-stage renal disease, on hemodialysis; diverticulitis; presented with lethargy; altered mental status and has acute on chronic respiratory acidosis and superimposed only on chronic obstructive pulmonary disease exacerbation, who is on bilevel positive airway pressure, now on bilevel positive airway pressure. CAT scan of the head showed no acute intracranial abnormality. Her chest x-ray shows worsening progressive congestive heart failure with pulmonary edema, increasing bilateral pleural effusions today. I was consulted for altered mental status. She has a state of delirium in addition to underlying chronic medical conditions superimposed on underlying cognitive impairment. At this time, I recommend, 1. Continue supplemental oxygen as needed. 2. Monitor electrolytes and correct accordingly. 3. Delirium precautions. 4. Keep her systolic blood pressure between 130s-140s and diastolic 70-80s and avoid hypoperfusion to the brain. 5. Aspirin 81 mg daily for stroke prevention. 6. Continue with gabapentin 100 mg p.o. at bedtime for neuropathic relief. 7. Continue with Seroquel 12.5 mg p.o. at bedtime for agitation. Once again, thank you for this followup. Michelet Hoffman MD
--- NOTE | 2018-01-07 12:17 | CP.PCM.PN ---
Subjective - Date & Time of Evaluation Date of Evaluation: 01/06/18 Time of Evaluation: 09:50 - Subjective Subjective: Patient is undergoing dialysis, no fevers, not in distress but still weak- looking. Objective - Vital Signs/Intake and Output Vital Signs (last 24 hours): Temp Pulse Resp BP Pulse Ox 97.8 F 115 H 38 H 108/60 96 01/06/18 16:00 01/06/18 21:30 01/06/18 21:30 01/06/18 20:00 01/06/18 21:30 Intake and Output: 01/06/18 01/07/18 18:59 06:59 Intake Total 250 Balance 250 - Medications Medications: Current Medications Albuterol/Ipratropium (Duoneb 3 Mg/0.5 Mg (3 Ml) Ud) 3 ml IH Q3 [facility] Last Admin: 01/06/18 20:36 Dose: Not Given Aspirin (Aspirin Chewable) 81 mg PO 0800 [facility] Last Admin: 01/06/18 10:56 Dose: Not Given Calcium Acetate (Phoslo) 667 mg PO BIDWM [facility] Last Admin: 01/06/18 18:15 Dose: Not Given Dextrose (Dextrose 50% Inj) 0 ml IV STAT PRN; Protocol PRN Reason: Hypoglycemia Protocol Gabapentin (Neurontin) 100 mg PO HS [facility] PRN Reason: Protocol Last Admin: 01/06/18 21:22 Dose: 100 mg Dextrose (Dextrose 5% In Water 1000 Ml) 1,000 mls @ 0 mls/hr IV .Q0M PRN; Protocol; Per Protocol PRN Reason: Hypoglycemia Protocol Meropenem 500 mg/ Sodium (Chloride) 50 mls @ 100 mls/hr IVPB Q12 [facility] PRN Reason: Protocol Stop: 01/11/18 17:01 Last Admin: 01/06/18 21:21 Dose: 100 mls/hr Insulin Human Lispro (Humalog Low) 0 units SC Q6 [facility] PRN Reason: Protocol Last Admin: 01/06/18 18:15 Dose: Not Given Levothyroxine Sodium (Synthroid) 50 mcg PO DAILY@0630 [facility] Last Admin: 01/06/18 05:30 Dose: Not Given Methylprednisolone (Solu-Medrol) 20 mg IVP Q12 [facility] Last Admin: 01/06/18 21:22 Dose: 20 mg Quetiapine Fumarate (Seroquel) 12.5 mg PO HS [facility] PRN Reason: Protocol Last Admin: 01/06/18 21:22 Dose: 12.5 mg Vitamin A (Vitamin A & D Oint Ud Foilpak) 1 ea TOP BID PRN PRN Reason: Dry mouth Last Admin: 01/06/18 16:23 Dose: 1 ea - Labs Labs: 01/06/18 05:00 01/06/18 05:00 PT 14.3 SECONDS (9.4-12.5) H 01/06/18 05:00 INR 1.24 01/06/18 05:00 APTT 29.2 Seconds (25.1-36.5) 01/06/18 05:00 - Constitutional Appears: Cachectic, Chronically Ill - Head Exam Head Exam: NORMAL INSPECTION - Neck Exam Neck Exam: absent: Meningismus - Respiratory Exam Respiratory Exam: Decreased Breath Sounds - Cardiovascular Exam Cardiovascular Exam: +S1, +S2 - GI/Abdominal Exam GI & Abdominal Exam: Soft. absent: Tenderness Assessment and Plan - Assessment and Plan (Free Text) Plan: Assessment systemic inflammatory response syndrome with encephalopathy, R/O CO2 narcosis with fluid overload, R/O severe sepsis from HCAP history of left perineal abscess S/P I and D, grew MRSA and Klebsiella - now still with residual skin and skin structure infection, growing MSSA and E. coli history of sepsis due to E. 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 diff. associated diarrhea S/P severe sepsis with acute sigmoid diverticulitis and acute cholecystitis history of acute NSTEMI history of sepsis due to acute descending colon diverticulitis and bilateral lobe healthcare-associated pneumonia history of healthcare-associated pneumonia (right upper lobe, bilateral lower lobes) HTN DM CAD with chronic CHF ESRD on HD Plan has been given a dose of IV Vancomycin and will continue Merrem day 3 to complete 4-7 days of therapy will continue to monitor clinically overall prognosis is poor patient is DNR and DNI
--- NOTE | 2018-01-07 14:58 | PN ---
Copied To: Barbi Linares MD Attending MD: Barbi Linares MD DATE: 01/07/2018 SUBJECTIVE: The patient is seen lying in bed. She is awake, she is alert. She is somewhat confused. She is not in any acute distress. PHYSICAL EXAMINATION: GENERAL: Elderly lady lying in bed. VITAL SIGNS: Blood pressure 147/46, heart rate 84, respiratory rate 20, and temperature 97.2. HEENT: Normocephalic, atraumatic, positive pallor. NECK: Supple, no JVD. LUNGS: Bilateral equal air entry, bilateral equal expansion, no rales. CARDIAC: S1 and S2, regular rate and rhythm, no murmur, no rub. ABDOMEN: Soft, nondistended, nontender, bowel sounds present. EXTREMITIES: No lower extremity edema. INTAKE AND OUTPUT: Not charted. LABORATORY DATA: WBC 7, hemoglobin 9.8, hematocrit 32, and platelets 105. Sodium 137, potassium 5, chloride 94, CO2 of 31. BUN 61, creatinine 4.2. Glucose 127. Calcium 7.6, phosphorus 5.8, magnesium 2, albumin 3.4. Cultures, no growth. CURRENT MEDICATIONS: Aspirin, DuoNeb, insulin, meropenem 500 every 12 hours, gabapentin, PhosLo, Seroquel, Solu-Medrol, and Synthroid. ASSESSMENT: 1. Altered mental status, much improved. 2. ?Sepsis, continue empiric antibiotics as per Infectious Disease recommendations. 3. End-stage renal disease, dialysis today. 4. Nrg-iqzjiro-swtghibjf diabetes mellitus. 5. Hypertension. 6. Coronary artery disease/congestive heart failure. 7. Hyperphosphatemia. PLAN: 1. Dialysis today, ultrafiltration about 2 kg. 2. Continue empiric antibiotics. 3. Continue phosphate binders. 4. Monitor fingersticks. 5. Physical therapy. Barbi Linares MD
--- NOTE | 2018-01-07 23:51 | PN ---
DATE: 01/07/2018 SUBJECTIVE: This 82-year-old female, currently in the Intensive Care Unit, on dialysis at this time. PHYSICAL EXAMINATION: VITAL SIGNS: Temp of 98.7, her blood pressure is 147/46, respiratory rate is 27, oxygen sat is 97% on 2 L of nasal oxygen. GENERAL: The patient is alert. She is oriented. At time, agitated. LUNGS: Diminished breath sounds. HEART: An irregular S1 and S2 rhythm. ABDOMEN: Soft with positive bowel sounds. EXTREMITIES: Show no evidence of edema. LABORATORY DATA: Her laboratory data shows WBC of 7, hemoglobin 9.8, hematocrit 32.1, platelet count 105. Chemistry shows predialysis potassium of 5, BUN is 61, creatinine is 4.2, random blood sugar is 127, phosphorus is 5.8, calcium is 7.6. ASSESSMENT AND PLAN: Her microbiological studies to date have negative MRSA screen, negative urine and negative blood cultures. She is currently on aspirin, IV dextrose, albuterol, insulin sliding scale, meropenem, Neurontin, PhosLo, Seroquel, Solu-Medrol and Synthroid and vitamin A and D ointment to her wounds at mouth area. She is receiving antibiotics for sepsis state and is being followed by Renal and Neurology. She had been having periods of bradyarrhythmia. She has a known cardiac history with myocardial infarctions. She has a living will. She is a DNR, DNI. We will continue current level of supportive care. Her chest x-ray showed worsening congestive heart failure with pulmonary edema and bilateral pleural effusions. We will get a Cardiology impression and continue current level of supportive care. Shavonne Ascencio MD
[2018-01-08] MEDS: Albuterol-Ipratrop 3 mg / 0.5 (3 ml) UD IH SCH ×4 (01:00→19:50)
--- NOTE | 2018-01-08 07:53 | PN ---
DATE: 01/08/2018 PULMONARY NOTE SUBJECTIVE: The patient appears comfortable this morning. She is not short of breath at rest. She is confused this morning. PHYSICAL EXAMINATION: VITAL SIGNS: Temperature is 97.2, pulse is 89, respirations 18, blood pressure 147/46. Oxygen saturation on nasal cannula is 97%. HEENT: Normocephalic, atraumatic. No JVD. CARDIOVASCULAR: Systolic ejection murmur at the lower left sternal border. Positive S3 gallop. LUNGS: Crackles at both bases. No rhonchi. No wheezing. EXTREMITIES: Mild edema. No cyanosis. No clubbing. Calves are nontender to palpation. GI: Abdomen is soft, nontender and nondistended. Bowel sounds are positive. SKIN: No acute rash. NEUROLOGIC: Limited at the present time. IMPRESSION: 1. Acute congestive heart failure. 2. End-stage renal disease. 3. Chronic pleural effusions. 4. Anemia. 5. Mild bronchospasm. 6. Coronary artery disease. PLAN: The patient appears comfortable this morning. She is not short of breath at rest. She is confused. I did discuss the case with the night nurse at length. The night nurse stated that the patient has been confused during her shift. On physical exam, her bronchospasm is certainly less. In addition, the alveolar-arterial gradient is also less. I will continue with the current nebulizer treatments and change to low-dose oral steroids this morning. I will also order aspiration precautions - given the above mental status change. Inputs by Infectious Disease and Renal are also noted. Clinical status of the patient is certainly improved - compared to the initial presentation. However, again, the future status/prognosis for this chronically ill, elderly patient does appear poor. I will discuss the above with Dr. Ascencio. Joni Perkins MD MTDJose J
[2018-01-08] MEDS: Meropenem 500 MG in Sodium Chloride 0.9% 50 ML IVPB SCH ×2 (11:05→21:57)
--- NOTE | 2018-01-08 12:37 | PN ---
DATE: 01/08/2018 SUBJECTIVE: The patient is seen lying in bed. She appears very cachectic. She is awake. She alert. She is talking a lot, but I am not understanding her. She denies any pain. PHYSICAL EXAMINATION: GENERAL: Elderly lady, lying in bed. VITAL SIGNS: Blood pressure 133/56, heart rate 55, respiratory rate 18-20, temperature 97.6. HEENT: Normocephalic, atraumatic, positive pallor. NECK: Supple, no JVD. LUNGS: Bilateral rhonchi, bilateral coarse crackles. CARDIAC: S1 and S2, regular rate and rhythm, no murmur, no rub. ABDOMEN: Soft, nondistended, nontender, bowel sounds present. EXTREMITIES: Ulcer of the right foot, ulcer of the left foot. LABORATORY DATA: WBC 7, hemoglobin 9.8, hematocrit 32, platelets 105. Sodium 137, potassium 5, chloride 94, CO2 of 31, BUN 61, creatinine 4.2, glucose 127, calcium 7.6, phosphorus 5.8, albumin 3.4. Cultures, no growth. Chest x-ray showing worsening congestive heart failure/pulmonary edema. MEDICATIONS: List reviewed. ASSESSMENT: 1. Coronary artery disease/congestive heart failure/paroxysmal atrial fibrillation. 2. Altered mental status. 3. ? sepsis. 4. End-stage renal disease. 5. Noninsulin-dependent diabetes mellitus. 6. Anemia of chronic kidney disease. 7. ? dementia. PLAN: 1. Ultrafiltration today, for one and a half hours to remove 1500 mL. 2. Continue empiric antibiotics. 3. Physical therapy. 4. Monitor fingersticks. Barbi Linares MD
[2018-01-08] MEDS: Insulin Lispro (humaLOG) LOW Coverage SC SCH ×2 (12:53→18:22)
--- NOTE | 2018-01-08 17:44 | CP.PCM.PN ---
Subjective - Date & Time of Evaluation Date of Evaluation: 01/08/18 Time of Evaluation: 17:25 - Subjective Subjective: Patient seen and evaluated in dialysis after being called by floor nurse. Patient says she is doing okay, just was having trouble breathing earlier today, where it was hard for her. No other complaints as this time. Patient denies chest pain, SOB, abdominal pain, vision change, dizziness or any other complaints at this time. Objective - Vital Signs/Intake and Output Vital Signs (last 24 hours): Temp Pulse Resp BP Pulse Ox 97.6 F 55 L 19 133/56 L 97 01/08/18 08:41 01/08/18 08:41 01/08/18 08:41 01/08/18 08:41 01/08/18 08:41 - Medications Medications: Current Medications Albuterol/Ipratropium (Duoneb 3 Mg/0.5 Mg (3 Ml) Ud) 3 ml IH [id number] [facility] Last Admin: 01/08/18 07:35 Dose: Not Given Aspirin (Aspirin Chewable) 81 mg PO 0800 [facility] Last Admin: 01/08/18 09:23 Dose: Not Given Calcium Acetate (Phoslo) 667 mg PO BIDWM [facility] Last Admin: 01/08/18 09:23 Dose: Not Given Dextrose (Dextrose 50% Inj) 0 ml IV STAT PRN; Protocol PRN Reason: Hypoglycemia Protocol Gabapentin (Neurontin) 100 mg PO HS [facility]; Protocol Last Admin: 01/06/18 21:22 Dose: 100 mg Dextrose (Dextrose 5% In Water 1000 Ml) 1,000 mls @ 0 mls/hr IV .Q0M PRN; Protocol PRN Reason: Hypoglycemia Protocol Meropenem 500 mg/ Sodium (Chloride) 50 mls @ 100 mls/hr IVPB Q12 [facility]; Protocol Stop: 01/11/18 17:01 Last Admin: 01/08/18 11:05 Dose: Not Given Insulin Human Lispro (Humalog Low) 0 units SC Q6 [facility]; Protocol Last Admin: 01/08/18 12:53 Dose: Not Given Levothyroxine Sodium (Synthroid) 50 mcg PO DAILY@0630 [facility] Last Admin: 01/07/18 06:12 Dose: 50 mcg Prednisone (Prednisone Tab) 20 mg PO DAILY [facility] Last Admin: 01/08/18 11:05 Dose: Not Given Quetiapine Fumarate (Seroquel) 12.5 mg PO HS [facility]; Protocol Last Admin: 01/06/18 21:22 Dose: 12.5 mg Vitamin A (Vitamin A & D Oint Ud Foilpak) 1 ea TOP BID PRN PRN Reason: Dry mouth Last Admin: 01/06/18 16:23 Dose: 1 ea - Labs Labs: 01/07/18 05:30 01/07/18 05:30 PT 13.6 SECONDS (9.4-12.5) H 01/07/18 05:30 INR 1.18 01/07/18 05:30 APTT 28.0 Seconds (25.1-36.5) 01/07/18 05:30 - Constitutional Appears: Non-toxic, No Acute Distress - Head Exam Head Exam: ATRAUMATIC, NORMAL INSPECTION, NORMOCEPHALIC - Eye Exam Eye Exam: Normal appearance - ENT Exam ENT Exam: Mucous Membranes Moist - Respiratory Exam Respiratory Exam: Decreased Breath Sounds, NORMAL BREATHING PATTERN - Cardiovascular Exam Cardiovascular Exam: Bradycardia - Extremities Exam Extremities Exam: absent: Pedal Edema - Neurological Exam Neurological Exam: Alert, Awake, Oriented x3 - Skin Skin Exam: Normal Color Assessment and Plan - Assessment and Plan (Free Text) Assessment: 82 year old female getting extra session of dialysis, with HR in the 40s. Patient is Dr. Ascencio patient. Plan: -Patient was assessed, asymptomatic -Rubbing Bed Operator Dr. Linares was made aware of low heart rate and said to continue dialysis treatment -spoke to Dr. Ascencio on phone, who agrees with plan of dialysis -continue to monitor patients vitals and symptoms -all further recs per primary Dr. Ascencio.
--- NOTE | 2018-01-08 21:13 | CP.PCM.PN ---
Subjective - Date & Time of Evaluation Date of Evaluation: 01/08/18 Time of Evaluation: 09:55 - Subjective Subjective: Still feeling weak, no fevers, with some confusion but not in distress. Objective - Vital Signs/Intake and Output Vital Signs (last 24 hours): Temp Pulse Resp BP Pulse Ox 98.6 F 87 18 146/56 L 99 01/08/18 18:50 01/08/18 18:50 01/08/18 18:50 01/08/18 18:50 01/08/18 18:50 Intake and Output: 01/08/18 01/09/18 18:59 06:59 Intake Total 600 Balance 600 - Medications Medications: Current Medications Albuterol/Ipratropium (Duoneb 3 Mg/0.5 Mg (3 Ml) Ud) 3 ml IH [id number] [facility] Last Admin: 01/08/18 19:50 Dose: 3 ml Aspirin (Aspirin Chewable) 81 mg PO 0800 [facility] Last Admin: 01/08/18 09:23 Dose: Not Given Calcium Acetate (Phoslo) 667 mg PO BIDWM [facility] Last Admin: 01/08/18 18:10 Dose: Not Given Dextrose (Dextrose 50% Inj) 0 ml IV STAT PRN; Protocol PRN Reason: Hypoglycemia Protocol Gabapentin (Neurontin) 100 mg PO HS [facility]; Protocol Last Admin: 01/06/18 21:22 Dose: 100 mg Dextrose (Dextrose 5% In Water 1000 Ml) 1,000 mls @ 0 mls/hr IV .Q0M PRN; Protocol PRN Reason: Hypoglycemia Protocol Meropenem 500 mg/ Sodium (Chloride) 50 mls @ 100 mls/hr IVPB Q12 [facility]; Protocol Stop: 01/11/18 17:01 Last Admin: 01/08/18 11:05 Dose: Not Given Insulin Human Lispro (Humalog Low) 0 units SC Q6 [facility]; Protocol Last Admin: 01/08/18 18:22 Dose: Not Given Levothyroxine Sodium (Synthroid) 50 mcg PO DAILY@0630 [facility] Last Admin: 01/07/18 06:12 Dose: 50 mcg Prednisone (Prednisone Tab) 20 mg PO DAILY [facility] Last Admin: 01/08/18 11:05 Dose: Not Given Quetiapine Fumarate (Seroquel) 12.5 mg PO HS [facility]; Protocol Last Admin: 01/06/18 21:22 Dose: 12.5 mg Vitamin A (Vitamin A & D Oint Ud Foilpak) 1 ea TOP BID PRN PRN Reason: Dry mouth Last Admin: 01/06/18 16:23 Dose: 1 ea - Labs Labs: 01/07/18 05:30 01/07/18 05:30 PT 13.6 SECONDS (9.4-12.5) H 01/07/18 05:30 INR 1.18 01/07/18 05:30 APTT 28.0 Seconds (25.1-36.5) 01/07/18 05:30 - Constitutional Appears: Chronically Ill - Head Exam Head Exam: NORMAL INSPECTION - ENT Exam ENT Exam: Mucous Membranes Moist - Neck Exam Neck Exam: absent: Meningismus - Respiratory Exam Respiratory Exam: Decreased Breath Sounds - Cardiovascular Exam Cardiovascular Exam: +S1, +S2 - GI/Abdominal Exam GI & Abdominal Exam: Soft. absent: Tenderness Assessment and Plan - Assessment and Plan (Free Text) Plan: Assessment systemic inflammatory response syndrome with encephalopathy, R/O CO2 narcosis with fluid overload, R/O severe sepsis from HCAP history of left perineal abscess S/P I and D, grew MRSA and Klebsiella - now still with residual skin and skin structure infection, growing MSSA and E. coli history of sepsis due to E. 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 diff. associated diarrhea S/P severe sepsis with acute sigmoid diverticulitis and acute cholecystitis history of acute NSTEMI history of sepsis due to acute descending colon diverticulitis and bilateral lobe healthcare-associated pneumonia history of healthcare-associated pneumonia (right upper lobe, bilateral lower lobes) HTN DM CAD with chronic CHF ESRD on HD Plan will continue Merrem day 4 to complete 4-7 days of therapy will continue to monitor clinically overall prognosis is poor patient is DNR and DNI discussed with Dr. Ascencio
--- NOTE | 2018-01-08 21:16 | PN ---
DATE: 01/08/2018 SUBJECTIVE: An 82-year-old female on the Remote Tele Unit. The patient has been admitted for altered mental status, sepsis, congestive heart failure, volume overload, chronic renal disease. PHYSICAL EXAMINATION VITAL SIGNS: She basically has a temperature of 97.6, pulse is 89, blood pressure is 133/56, oxygen sat is 97% on 2 liters of nasal cannula. GENERAL: The patient is alert, able to communicate to me to some extent, but appears to be agitated. LUNGS: Show bilateral rhonchi with diminished breath sounds. HEART: Irregular S1 and S2 rhythm. ABDOMEN: Soft with positive bowel sounds. EXTREMITIES: No evidence of edema. LABORATORY DATA: Her microbiological studies today are negative, blood and urine. The random blood sugar was 120. ASSESSMENT AND PLAN: She is receiving IV antibiotics, being followed by Infectious Disease. She is also receiving respiratory treatments, being followed by Pulmonary and she is on renal medications for her chronic renal disease. She is on p.o. prednisone by Pulmonary at this time. She has been seen by Neurology for her agitation and has been placed on Seroquel at bedtime and she is on Synthroid replacement therapy. She is also receiving Neurontin for peripheral neuropathy, insulin sliding scale for her diabetes and Ecotrin 81 mg daily for her atrial fibrillation. She has a living will. She is a DNR/DNI. She has a past medical history of acute diverticulitis with diverticulosis, acute cholecystitis with gallstones, hip surgery, carotid disease, non-ST myocardial infarctions, congestive heart failure, atrial fibrillation, now with delirium issues and cognitive behavior disorder. The patient is being given supportive care and we will review with consultants treatment plans and discuss with family disposition plans. Continue current level of supportive care with this patient with multiple medical issues. Shavonne Ascencio MD
[2018-01-09] MEDS: Insulin Lispro (humaLOG) LOW Coverage SC SCH ×4 (00:16→17:29)
[2018-01-09] MEDS: Albuterol-Ipratrop 3 mg / 0.5 (3 ml) UD IH SCH ×4 (02:01→20:52)
[2018-01-09 02:57] LABS: BASO # 0.01 K/mm3 (0.0-2.0); BASO % 0.1 % (0.0-3.0); GRAN # 17.72 (1.4-6.5); GRAN % 89.7 % (50.0-68.0); HEMOGLOBIN 9.9 g/dL (12.0-16.0); MEAN CELL VOLUME 97.4 fl (80.0-105.0); MEAN CORPUSCULAR HEMOGLOBIN 29.1 pg (25.0-35.0); MEAN CORPUSCULAR HGB CONC 29.9 g/dl (31.0-37.0); MEAN PLATELET VOLUME 8.5 fl (7.0-11.0); MONO % 5.2 % (1.0-6.0); PLATELET COUNT 77 10^3/uL (120.0-450.0); RED CELL DISTRIBUTION WIDTH 17.8 % (11.5-14.5); WHITE BLOOD COUNT 19.7 10^3/ul (4.5-11.0)
[2018-01-09 03:04] LABS: INR 1.27; PARTIAL THROMBOPLASTIN TIME 29.3 Seconds (25.1-36.5); PROTHROMBIN TIME 14.6 SECONDS (9.4-12.5)
[2018-01-09 03:11] LABS: ALB/GLOB RATIO 0.7 (1.1-1.8); ALBUMIN 2.7 g/dL (3.0-4.8); CALCIUM 7.6 mg/dL (8.4-10.5)
--- NOTE | 2018-01-09 04:21 | CP.PCM.PN ---
<Kelsea Evangelista - Last Filed: 01/09/18 04:54> Subjective - Date & Time of Evaluation Date of Evaluation: 01/09/18 Time of Evaluation: 04:18 - Subjective Subjective: NIGHT FLOAT PROGRESS NOTE Kelsea Evangelista D.O. PGY-1 82 year old female with PMH of HTN, DM, CAD with chronic CHF, ESRD on HD seen and examined at bedside. Resident was paged from nursing staff after pt was found with a new mobitz II av block, changed from previous 1st degree block. Pt was given seroquel 12.5mg last night. Upon interview, pt unable to respond to questions. Objective - Vital Signs/Intake and Output Vital Signs (last 24 hours): Temp Pulse Resp BP Pulse Ox 99.1 F 78 18 127/48 L 99 01/09/18 03:00 01/09/18 03:00 01/08/18 18:50 01/09/18 03:00 01/08/18 18:50 Intake and Output: 01/08/18 01/09/18 18:59 06:59 Intake Total 600 Balance 600 - Medications Medications: Current Medications Albuterol/Ipratropium (Duoneb 3 Mg/0.5 Mg (3 Ml) Ud) 3 ml IH [id number] RUTHANN Last Admin: 01/09/18 02:01 Dose: Not Given Aspirin (Aspirin Chewable) 81 mg PO 0800 RUTHANN Last Admin: 01/08/18 09:23 Dose: Not Given Calcium Acetate (Phoslo) 667 mg PO BIDWM RUTHANN Last Admin: 01/08/18 18:10 Dose: Not Given Dextrose (Dextrose 50% Inj) 0 ml IV STAT PRN; Protocol PRN Reason: Hypoglycemia Protocol Gabapentin (Neurontin) 100 mg PO HS RUTHANN; Protocol Last Admin: 01/08/18 22:20 Dose: 100 mg Dextrose (Dextrose 5% In Water 1000 Ml) 1,000 mls @ 0 mls/hr IV .Q0M PRN; Protocol PRN Reason: Hypoglycemia Protocol Meropenem 500 mg/ Sodium (Chloride) 50 mls @ 100 mls/hr IVPB Q12 RUTHANN; Protocol Stop: 01/11/18 17:01 Last Admin: 01/08/18 21:57 Dose: 100 mls/hr Insulin Human Lispro (Humalog Low) 0 units SC Q6 RUTHANN; Protocol Last Admin: 01/09/18 00:16 Dose: Not Given Levothyroxine Sodium (Synthroid) 50 mcg PO DAILY@0630 [facility] Last Admin: 01/07/18 06:12 Dose: 50 mcg Prednisone (Prednisone Tab) 20 mg PO DAILY [facility] Last Admin: 01/08/18 11:05 Dose: Not Given Quetiapine Fumarate (Seroquel) 12.5 mg PO HS [facility]; Protocol Last Admin: 01/08/18 22:19 Dose: 12.5 mg Vitamin A (Vitamin A & D Oint Ud Foilpak) 1 ea TOP BID PRN PRN Reason: Dry mouth Last Admin: 01/06/18 16:23 Dose: 1 ea - Labs Labs: 01/09/18 02:45 01/09/18 02:45 PT 14.6 SECONDS (9.4-12.5) H 01/09/18 02:45 INR 1.27 01/09/18 02:45 APTT 29.3 Seconds (25.1-36.5) 01/09/18 02:45 - Constitutional Appears: Cachectic, Chronically Ill - Head Exam Head Exam: NORMAL INSPECTION - Eye Exam Pupil Exam: PERRL - ENT Exam ENT Exam: Mucous Membranes Moist - Neck Exam Neck Exam: Normal Inspection - Respiratory Exam Respiratory Exam: Decreased Breath Sounds (bilater lower lung riggs). absent: Rales - Cardiovascular Exam Cardiovascular Exam: +S1, +S2 Additional comments: some missed beats noted - GI/Abdominal Exam GI & Abdominal Exam: Soft - Extremities Exam Extremities Exam: absent: Calf Tenderness, Pedal Edema - Back Exam Back Exam: NORMAL INSPECTION - Neurological Exam Neurological Exam: Altered - Skin Skin Exam: Dry, Intact, Warm Assessment and Plan - Assessment and Plan (Free Text) Assessment: 82 y/o F admitted for AMS. Resident paged due to increased confusion from pt and new arrhythmia on telemetry. EKG showed new mobitz II AV block. Pts WBC count increased from 7 to 19. CBC/CMP/ABG w/shock panel/Cxray/BNP/Troponins/Procalcitonin/Blood/Urine culture were ordered. Chest xray showed worsening bilateral pleural effusions. Lactic on ABG was 0.9, pH: 7.43. Dr. Ascencio was called at 0430 and aware of pt status. As per his request, Dr. Linares is to be contacted for pt to undergo hemodialysis. Dr Linares's service was called with no response. Plan: ESRD on HD HD per Dr. Toledo recs <Jenae Campos - Last Filed: 01/09/18 07:58> Objective - Vital Signs/Intake and Output Vital Signs (last 24 hours): Temp Pulse Resp BP Pulse Ox 99.1 F 87 18 127/48 L 99 01/09/18 03:00 01/09/18 06:00 01/08/18 18:50 01/09/18 03:00 01/08/18 18:50 - Medications Medications: Current Medications Albuterol/Ipratropium (Duoneb 3 Mg/0.5 Mg (3 Ml) Ud) 3 ml IH [id number] RUTHANN Last Admin: 01/09/18 07:39 Dose: Not Given Aspirin (Aspirin Chewable) 81 mg PO 0800 RUTHANN Last Admin: 01/08/18 09:23 Dose: Not Given Calcium Acetate (Phoslo) 667 mg PO BIDWM RUTHANN Last Admin: 01/08/18 18:10 Dose: Not Given Dextrose (Dextrose 50% Inj) 0 ml IV STAT PRN; Protocol PRN Reason: Hypoglycemia Protocol Gabapentin (Neurontin) 100 mg PO HS RUTHANN; Protocol Last Admin: 01/08/18 22:20 Dose: 100 mg Dextrose (Dextrose 5% In Water 1000 Ml) 1,000 mls @ 0 mls/hr IV .Q0M PRN; Protocol PRN Reason: Hypoglycemia Protocol Meropenem 500 mg/ Sodium (Chloride) 50 mls @ 100 mls/hr IVPB Q12 RUTHANN; Protocol Stop: 01/11/18 17:01 Last Admin: 01/08/18 21:57 Dose: 100 mls/hr Insulin Human Lispro (Humalog Low) 0 units SC Q6 RUTHANN; Protocol Last Admin: 01/09/18 07:05 Dose: Not Given Levothyroxine Sodium (Synthroid) 50 mcg PO DAILY@0630 R[facility]ANN Last Admin: 01/09/18 07:05 Dose: Not Given Prednisone (Prednisone Tab) 20 mg PO DAILY RUTHANN Last Admin: 01/08/18 11:05 Dose: Not Given Quetiapine Fumarate (Seroquel) 12.5 mg PO HS RUTHANN; Protocol Last Admin: 01/08/18 22:19 Dose: 12.5 mg Vitamin A (Vitamin A & D Oint Ud Foilpak) 1 ea TOP BID PRN PRN Reason: Dry mouth Last Admin: 01/06/18 16:23 Dose: 1 ea - Labs Labs: 01/09/18 02:45 01/09/18 02:45 PT 14.6 SECONDS (9.4-12.5) H 01/09/18 02:45 INR 1.27 01/09/18 02:45 APTT 29.3 Seconds (25.1-36.5) 01/09/18 02:45 Attending/Attestation - Attestation I have personally seen and examined this patient.: Yes I have fully participated in the care of the patient.: Yes I have reviewed all pertinent clinical information, including history, physical exam and plan: Yes Notes (Text): 01/09/18 07:50 Pt seen with the resident by the bedside. Case discussed in detail. IMP: fluid overload. Esrd on hemodialysis Plan As discussed with Dr Ascencio,Dr Linares was called. She did call back.jase ements are being made for pt to get dialysis shortly.
[2018-01-09 04:24] LABS: ARTERIAL BLOOD GAS HCO3 31.2 mmol/L (21-28); ARTERIAL BLOOD GAS O2 SAT 97.9 % (95-98); ARTERIAL BLOOD GAS PCO2 47 mm/Hg (35-45); ARTERIAL BLOOD GAS PH 7.43 (7.35-7.45); ARTERIAL BLOOD GAS TCO2 32.6 mmol.L (22-28)
[2018-01-09 04:27] LABS: BAND 1 % (0-2); NEUTROPHIL 90 % (50.0-70.0)
[2018-01-09 04:28] LABS: HYPOCHROMIA SLIGHT; LYMPHOCYTE 4 % (22.0-35.0); MONOCYTE 5 % (1.0-6.0); PLATELET ESTIMATE LOW (NORMAL)
[2018-01-09 04:29] LABS: ANISOCYTOSIS 2+
[2018-01-09 05:29] LABS: B-TYPE NATRIURETIC PEPTIDE > 175000 pg/mL (0-450); TROPONIN I 0.13 ng/mL
[2018-01-09] MEDS: Levothyroxine 50 MCG TAB PO SCH (07:05)
--- NOTE | 2018-01-09 07:44 | PN ---
DATE: 01/09/2018 SUBJECTIVE: The patient appears somewhat sleepy this morning. She is easily arousable. She is not short of breath at rest. PHYSICAL EXAMINATION: VITAL SIGNS: Temperature is 99.1, pulse 87, respirations 18, blood pressure 127/48. Oxygen saturation on nasal cannula is 97%. HEENT: Normocephalic, atraumatic. No JVD. CARDIOVASCULAR: Systolic ejection murmur at the lower left sternal border. Positive S3 gallop. LUNGS: Crackles at both bases. No rhonchi. No wheezing. EXTREMITIES: Mild edema. No cyanosis, no clubbing. Calves are nontender to palpation. GI: Abdomen is soft, nontender and nondistended. Bowel sounds are positive. SKIN: No acute rash. NEUROLOGIC: Exam limited at the present time. PERTINENT LABORATORY DATA: Chest x-ray was done last night and reviewed. It remains with moderately severe pulmonary edema and bilateral pleural effusions. Arterial blood gas was also done on nasal cannula. Results are: PH 7.43, pCO2 of 47, pO2 of 85. IMPRESSION: 1. Acute congestive heart failure. 2. End-stage renal disease. 3. Chronic pleural effusions. 4. Anemia. 5. Mild bronchospasm. 6. Coronary artery disease. PLAN: The patient appears somewhat sleepy this morning. She is easily arousable. She is not short of breath at rest. I did discuss the case with the night nurse at length. The night nurse stated that the patient did have a rough night. I did review the chest x-ray as above. Findings are noted. The patient is for repeat dialysis this morning. I have also reviewed the arterial blood gas. The arterial blood gas is very acceptable for this patient at this point in time. On physical exam, there is certainly less bronchospasm noted. I will continue the current nebulizer treatments and low-dose oral steroids (changed yesterday) for now. Inputs by Internal Medicine and Infectious Disease are also noted. Clinical status of this patient appears very guarded at this point in time. Her overall prognosis is poor. I will discuss the above with Dr. Ascencio. Joni Perkins MD [facility] # [id number] MTDD
--- NOTE | 2018-01-09 08:02 | RAD ---
Date of service: 01/09/2018 HISTORY: sepsis? COMPARISON: Portable chest 01/07/2018. FINDINGS: LUNGS: A bilateral basilar airspace disease is not excluded though not proven either. PLEURA: No interval change in [id number] bilateral pleural effusions. No pneumothorax bilaterally. CARDIOVASCULAR: Cardiac silhouette remains obscured by bilateral pleural effusions. Pulmonary vascular congestion borderline improved. OSSEOUS STRUCTURES: No significant abnormalities. VISUALIZED UPPER ABDOMEN: Normal. OTHER FINDINGS: None. IMPRESSION: Borderline pulmonary vascular congestion improvement. [id number] bilateral pleural effusions persist with underlying airspace disease not excluded.
[2018-01-09] MEDS: Meropenem 500 MG in Sodium Chloride 0.9% 50 ML IVPB SCH ×2 (12:34→21:49)
[2018-01-09] MEDS ORDERED: Vancomycin 1gm in NS 250ml 1 GM/250 ML BAG IVPB STA (13:15)
--- NOTE | 2018-01-09 13:38 | PN ---
DATE: 01/09/2018 SUBJECTIVE: The patient is in bed, in no acute distress, nontoxic. Was seen early this morning in room 363, bed 1. PHYSICAL EXAMINATION: VITAL SIGNS: Temperature is 98, blood pressure is 130/50, respiratory rate of 24. HEENT: Examination of HEENT is unremarkable. NECK: Supple. LUNGS: Have decreased breath sounds. HEART: Normal S1 and S2. ABDOMEN: Soft. LABORATORY DATA: Laboratory examination reveals the white count is up to 19,700, hemoglobin of 9. Differential on the 19,000 revealed 89% granulocytosis. Chemistries are noted. BUN of 27, creatinine of 2.3. Troponin is elevated at 0.13. BNP is elevated at 175,000. Urinalysis is noted. Microbiology is reviewed. Nares cultures are negative. Blood cultures are negative. Urine cultures are negative. Review of orders reveals the patient to be on meropenem. The patient is also on prednisone 20 mg a day, which was reordered yesterday by Dr. Perkins. ASSESSMENT AND PLAN: An 82-year-old female, seen earlier this morning in 363, bed 1 with systemic inflammatory response syndrome, encephalopathy, rule out carbon dioxide narcosis with fluid overload, rule out severe sepsis and healthcare-associated pneumonia, history of left perineal abscess and skin structure infection with methicillin-susceptible Staphylococcus aureus and Escherichia coli, history of sepsis due to Escherichia coli bacteremia with a history of acute left-sided diverticulitis as well, history of vancomycin-resistant Enterococcus in the urine, history of Clostridium difficile and history of status post severe sepsis, acute diverticulitis, acute cholecystitis and history of acute [id number] myocardial infarction. Currently, on meropenem, day #5. The patient on end-stage renal disease, now with leukocytosis of increase of 19,700 this morning with mild tachycardia with #1 is systemic inflammatory response syndrome. Repeat blood cultures have been ordered and the urine cultures have been ordered. Chest x-ray is done, which was read by Dr. Varela . Bilateral airspace disease not excluded, though not proven either versus congestion. Dr. Perkins's note from this morning is reviewed. Acute congestive heart failure, end-stage renal disease and chronic pleural effusion. We will give one dose of vancomycin pending her panculture results. We will follow the CBC and the white count. Jeromy Castellanos MD [facility] # [id number]
--- NOTE | 2018-01-09 20:10 | PN ---
DATE: 01/09/2018 SUBJECTIVE: An 82-year-old lady lying in bed in the dialysis unit. She complains of rectal pain. She complains of constipation. PHYSICAL EXAMINATION: GENERAL: Elderly lady, lying in bed. VITAL SIGNS: Blood pressure 122/49, heart rate 55, respiratory rate 22, temperature 98.9. HEENT: Normocephalic, atraumatic, positive pallor. NECK: Supple, no JVD. LUNGS: Bilateral equal air entry, bilateral equal expansion. CARDIAC: S1 and S2, regular rate and rhythm, no murmur, no rub. ABDOMEN: Soft, nondistended, nontender, bowel sounds present. EXTREMITIES: No lower extremity edema. LABORATORY DATA: WBC 19.7, hemoglobin 9.9, hematocrit 33, platelets 77. Sodium 140, potassium 3.6, chloride 100, CO2 of 30, BUN 27, creatinine 2.8, glucose 142, calcium 7.6, phosphorus 2.9, magnesium 1.8, troponin 0.13, BNP greater than 175,000, albumin 2.7. Cultures, negative. CURRENT MEDICATIONS: Aspirin, DuoNeb, insulin, meropenem, Neurontin, PhosLo, prednisone, Seroquel, Synthroid, Zofran, vancomycin 1 g. ASSESSMENT: 1. Decompensated congestive heart failure, bilateral pleural effusion. 2. Paroxysmal atrial fibrillation, congestive heart failure, cardiomyopathy. 3. Noninsulin-dependent diabetes mellitus. 4. Hypertension. 5. End stage renal disease. 6. Constipation/rectal pain. PLAN: 1. Stable dialysis, ultrafiltrate 1500 to 2000. 2. Anusol for rectal discomfort. 3. MiraLax for constipation. 4. Continue monitoring fingersticks. 5. Monitor heart rate. 6. Monitor white count. Barbi Linares MD
[2018-01-10] MEDS: Insulin Lispro (humaLOG) LOW Coverage SC SCH ×5 (00:13→18:05)
[2018-01-10] MEDS: Albuterol-Ipratrop 3 mg / 0.5 (3 ml) UD IH SCH ×4 (01:10→19:13)
--- NOTE | 2018-01-10 01:15 | CON ---
DATE: 01/09/2018 REQUESTING PHYSICIAN: Shavonne Ascencio MD REASON FOR CONSULTATION: Intermittent bradycardia. HISTORY OF PRESENT ILLNESS: This is an 82-year-old woman well known to us with a history of coronary artery disease status post remote infarct and PCI as well as mitral regurgitation who was admitted with altered mental status and worsening dyspnea. She was brought to the emergency room and appeared to be volume overloaded. Intensified dialysis had been given and she is clinically improved. She has been noted to have intermittent bradycardia and evaluation was requested. She is currently a DNR/DNI and is a permanent retirement resident. She has chronic renal failure, maintained on hemodialysis. She has had multiple admissions in the past for pneumonia, pleural effusions, myocardial fraction, respiratory failure, and diverticulitis. PAST MEDICAL HISTORY: Notable for the problems mentioned above. She has a history of hypothyroidism, prior hip surgery, moderate mitral regurgitation, prior cholecystitis and hyperlipidemia. CURRENT MEDICATIONS: Include aspirin, DuoNeb inhaler, insulin, meropenem, gabapentin, PhosLo, prednisone, Seroquel, Synthroid, and vancomycin. ALLERGIES: SHE HAS HAD A REACTION TO CEFTRIAXONE IN THE PAST. SOCIAL HISTORY: She does not smoke or drink. FAMILY HISTORY: She cannot recall. REVIEW OF SYSTEMS: A 10-point review of systems is limited, but otherwise unremarkable. PHYSICAL EXAMINATION GENERAL: She is seen lying in a stretcher in hemodialysis unit. She is comfortable lying flat. She is complaining of intermittent foot pain. VITAL SIGNS: Her blood pressure was 130/50 with a pulse of 90 and sinus, respirations were 16. She is afebrile. Telemetry monitoring reveals occasional short runs of wide complex tachycardia, no more than 5 beats. She has also had intermittent marked sinus bradycardia, first-degree AV block and Mobitz I block. HEENT: Temporal wasting noted. NECK: Supple. No JVP present. CHEST: Few scattered rhonchi heard. HEART: PMI displaced laterally with a 3/6 systolic murmur at the apex radiating to the axilla. ABDOMEN: Soft, nontender, normoactive bowel sounds. EXTREMITIES: No edema. SKIN: Warm and dry. PSYCHIATRIC: Somewhat agitated, but otherwise unremarkable. NEUROLOGICAL: Alert and oriented x3. No gross motor or sensory deficits noted. DIAGNOSTICS: White count is 19.7, hemoglobin and hematocrit 9.9 and 33.1 with a platelet count of 77,000. PT/PTT 14.6 and 29.3. Arterial blood gas 7.43, pCO2 of 47, pO2 of 85. Potassium 3.6, BUN and creatinine 27 and 2.8. Troponin 0.13. BNP is greater than 175,000. Chest x-ray reveals enlarged cardiac silhouette with bilateral congestive changes. Electrocardiogram reveals sinus tachycardia, first-degree AV block, prior anteroseptal myocardial infarction cannot be excluded, secondary ST-T changes are noted. IMPRESSION: 1. Intermittent bradycardia recorded on telemetry strips, appeared most consistent with supra-Hisian block at this time. No evidence of high-degree AV block has been exhibited. The patient remains hemodynamically stable and asymptomatic. 2. Known coronary artery disease status post remote percutaneous coronary intervention. 3. Moderate mitral regurgitation. 4. Chronic renal failure, on dialysis. RECOMMENDATIONS: Continuing the conservative medical management appears most appropriate at this time. Avoidance of vagotonic agents is advised given her intermittent bradycardia. If she were to exhibit evidence of high-grade AV block, consideration could be given to discussion with the patient and family regarding possible pacemaker implant, but this would likely not improve her quality of life or prolong her life to any significant degree. Thank you for this consultation. We will be happy to see her in the future as needed. Linus So MD MTDJose J
[2018-01-10] MEDS: Levothyroxine 50 MCG TAB PO SCH (06:10)
[2018-01-10 06:30] LABS: BASO # 0.01 K/mm3 (0.0-2.0); GRAN # 24.98 (1.4-6.5); GRAN % 89.4 % (50.0-68.0); HEMOGLOBIN 9.2 g/dL (12.0-16.0); LYMPH # 1.7 (1.2-3.4); MEAN CELL VOLUME 98.4 fl (80.0-105.0); MEAN CORPUSCULAR HEMOGLOBIN 29.1 pg (25.0-35.0); MEAN CORPUSCULAR HGB CONC 29.6 g/dl (31.0-37.0); MEAN PLATELET VOLUME 9.1 fl (7.0-11.0); MONO # 1.3 (0.1-0.6); MONO % 4.6 % (1.0-6.0); RBC 3.16 10^6/uL (3.5-6.1); RED CELL DISTRIBUTION WIDTH 17.9 % (11.5-14.5)
[2018-01-10 06:48] LABS: ALB/GLOB RATIO 0.7 (1.1-1.8); ALBUMIN 2.8 g/dL (3.0-4.8); CALCIUM 7.7 mg/dL (8.4-10.5)
--- NOTE | 2018-01-10 07:41 | PN ---
DATE: 01/10/2018 PULMONARY NOTE SUBJECTIVE: The patient appears comfortable this morning. She is not short of breath at rest. She is much more awake and alert this morning. PHYSICAL EXAMINATION: VITAL SIGNS: Temperature is 98.9, pulse 50, respirations 16-18, blood pressure 127/51. Oxygen saturation on nasal cannula is 92%-97%. HEENT: Normocephalic, atraumatic. No JVD. CARDIOVASCULAR: Systolic ejection murmur at the lower left sternal border. Positive S3 gallop. LUNGS: Crackles at both bases. No rhonchi. No wheezing. EXTREMITIES: Less edema. No cyanosis, no clubbing. Calves are nontender to palpation. GASTROINTESTINAL: Abdomen is soft, nontender, and nondistended. Bowel sounds are positive. SKIN: No acute rash. NEUROLOGIC: Limited at the present time. IMPRESSION: 1. Acute congestive heart failure. 2. End-stage renal disease. 3. Chronic pleural effusions. 4. Anemia. 5. Mild bronchospasm. 6. Coronary artery disease. 7. Sepsis syndrome. PLAN: The patient appears comfortable this morning. She is not short of breath at rest. She is a lot more awake and alert this morning - compared to yesterday. I did discuss the case with the night nurse at length. The night nurse did state that the patient had a better night. On physical exam, there is no significant bronchospasm noted. In addition, there is no significant alveolar-arterial gradient. I will continue with the current nebulizer treatments and decrease the oral steroids this morning. The patient is now on antibiotic therapy. Input by Infectious Disease is noted. Inputs by Renal and Cardiology are also noted. Clinical status of the patient is certainly improved - compared to yesterday. However, again, the future status/prognosis for this chronically ill, elderly patient does remain very guarded at best/poor. I will discuss the above with Dr. Ascencio. Joni Perkins MD MTDD
[2018-01-10] MEDS: Meropenem 500 MG in Sodium Chloride 0.9% 50 ML IVPB SCH ×2 (09:08→21:32)
[2018-01-10] MEDS: Hydrocortisone 2.5% Rectal Cream(30 gm) PR SCH ×2 (09:08→18:12)
[2018-01-10] MEDS ORDERED: POLYETHYLENE GLYCOL 3350 17 GM/Dose PACKET PO SCH (10:00)
--- NOTE | 2018-01-10 12:53 | PN ---
DATE: 01/10/2018 SUBJECTIVE: This 82-year-old female resting this morning comfortably. Nursing staff relates that there were no particular problems. PHYSICAL EXAMINATION: VITAL SIGNS: Her temperature is 98.8, her pulse is 50, her blood pressure is 133/95, her respiratory rate is 18. GENERAL: She is awake. She is alert. NECK: Supple. LUNGS: Diminished breath sounds at the bases with rhonchi. HEART: S1, S2, grade 2/6 systolic murmur. ABDOMEN: Soft with positive bowel sounds. EXTREMITIES: Show no evidence of edema. On the right foot, there were two areas of dried wounds. LABORATORY DATA: Chemistry shows a sodium 137, potassium 3.8, chloride 97, CO2 of 29. BUN is 20, creatinine is 2.5. Random blood sugar is 118. Albumin is 2.8. CBC: WBC is 28,000, RBC is 3.16, hemoglobin 9.2, hematocrit 31.1, and platelet count 88,000. MEDICATIONS: Currently, the patient is on Anusol, Ecotrin, DuoNeb, sliding insulin scale, meropenem, MiraLax, Neurontin, PhosLo, prednisone, Synthroid, vitamin A, and Zofran. The patient is also receiving intermittent vancomycin and Seroquel at bedtime. ASSESSMENT: 1. Leukocytosis, must rule out systemic infection, rule out Clostridium difficile, rule out urinary tract infection, sepsis. 2. Dry wounds on the right foot, Podiatry evaluation. 3. Chronic renal disease, on dialysis. 4. Insulin-dependent diabetes. 5. Arteriosclerotic heart disease. 6. Bradyarrhythmia. 7. Hyperlipidemia. 8. Respiratory insufficiency. 9. Respiratory failure. 10. Pleural effusions. PLAN: We will review with Infectious Disease. Stool for C. diff has been requested as well as cultures. Patient has a living will. She is a DNR/DNI. I discussed the case with nursing staff. Continue current level of supportive care. Family is aware of the patient's clinical status and guarded prognosis. Shavonne Ascencio MD
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
--- NOTE | 2018-01-10 14:47 | RAD ---
Date of service: 01/10/2018 PROCEDURE: Bilateral Feet Radiographs. HISTORY: left halux ulcer COMPARISON: None. FINDINGS: BONES: Extensive diffuse osteopenia suggests advanced osteoporosis. Clinically correlate further. No displaced fractures identified or destructive bony lesion. No definite periosteal reaction is appreciate including at the left hallux or cortical erosion to indicate osteomyelitis. MRI is available follow-up if clinically warranted. Vascular calcifications are identified at the anterior ankle and dorsal foot soft tissues bilaterally. Ulcer or scar seen at the mid to posterior right heel soft tissues as well. JOINTS: Degenerative cortical sclerosis and joint space narrowing seen throughout the forefoot midfoot and hindfoot joints without subluxation or dislocation SOFT TISSUES: Right Foot: Evident. Left Foot: Normal. OTHER FINDINGS: None. IMPRESSION: No definite radiographic pattern to suggest osteomyelitis at this time, bilaterally. No displaced fracture identified. Diffuse osteopenia appears prominent and may reflect advanced osteoporosis. Clinically correlate further. This can limit the identification of nondisplaced fractures. Diffuse degenerative changes bilaterally.
--- NOTE | 2018-01-10 15:13 | CARD ---
APPROVED REPORT Date of service: 01/09/2018 EKG Measurement Heart [id number] <Conclusion> Sinus bradycardia with second degree AVB and 2:1 conduction, heart rate 45 BPM. ASMI, old STTW changes c/w ischemia
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
--- NOTE | 2018-01-10 16:58 | PN ---
DATE: 01/10/2018 SUBJECTIVE: The patient is seen lying in bed. She is awake. She is alert. She reports feeling much better today. She complains of constipation. PHYSICAL EXAMINATION: GENERAL: Elderly lady lying in bed. VITAL SIGNS: Blood pressure 133/95, heart rate 48, respiratory rate 18, temperature 98.8. HEENT: Normocephalic, atraumatic, positive pallor. NECK: Supple, no JVD. LUNGS: Bilateral equal air entry, bilateral equal expansion, much reduced crackles today. CARDIAC: S1 and S2, regular rate and rhythm, no murmur, no rub. ABDOMEN: Soft, nondistended, nontender. Bowel sounds present. EXTREMITIES: No lower extremity edema. Ulcer on the left heel. INTAKE AND OUTPUT: Not charted. LABORATORY DATA AND IMAGING: WBC 28,000, hemoglobin 9.2, hematocrit 31, platelets 88. Sodium 137, potassium 3.8, chloride 97, CO2 29, BUN 20, creatinine 2.5, glucose 125, calcium 7.7, AST 28, ALT 14, albumin 2.8. Blood cultures no growth. X-ray of both feet, no definitive osteomyelitis, severe osteopenia and osteoporosis. CURRENT MEDICATIONS: Anusol, aspirin, meropenem 500 every 12, gabapentin, PhosLo, prednisone, Seroquel, Synthroid, Tylenol, Zofran. ASSESSMENT: 1. Severe leukocytosis, (?) secondary to prednisone. 2. Clinically does not appear to have any infection. 3. Paroxysmal atrial fibrillation/coronary artery disease/congestive heart failure. 4. Noninsulin-dependent diabetes mellitus. 5. Hypertension. 6. End-stage renal disease. 7. Anemia of chronic kidney disease. PLAN: 1. Taper off prednisone. 2. Follow up cultures. 3. Continue empiric antibiotics. 4. Dialysis tomorrow. 5. Physical therapy. Barbi Linares MD
[2018-01-10] MEDS: Mupirocin 2% Ointment 15 GM TUBE TOP SCH (18:12)
[2018-01-10] MEDS: Vancomycin 25 MG/ML PO SCH (21:32)
[2018-01-11] MEDS: Albuterol-Ipratrop 3 mg / 0.5 (3 ml) UD IH SCH ×4 (01:09→19:50)
--- NOTE | 2018-01-11 01:20 | PN ---
DATE: 01/10/2018 SUBJECTIVE: The patient is in bed, in no acute distress, nontoxic. The patient was seen earlier this morning, has questionable diarrhea. PHYSICAL EXAMINATION: VITAL SIGNS: Temperature is 98, blood pressure is 116/60, respiratory rate of 22, heart rate of 102. HEENT: Unremarkable. NECK: Supple. LUNGS: Have decreased breath sounds. HEART: Normal S1 and S2. ABDOMEN: Soft, nontender. No organomegaly. No rebound. No guarding. No masses. LABORATORY EXAMINATION: Reveals a white count of 28,000, hemoglobin of 9. Creatinine is 2.5. Urinalysis is noted. Microbiology reveals the patient's blood cultures are negative, nares are negative, urine cultures are negative. LFTs are normal. X-ray of the foot is noted. ASSESSMENT AND PLAN: An 82-year-old female, who was seen earlier today with systemic inflammatory response syndrome, encephalopathy, must rule out carbon dioxide narcosis, fluid overload, severe sepsis, healthcare-associated pneumonia, left perineal abscess, skin structure with sensitive Staph and Escherichia coli, history of sepsis, now has systemic inflammatory response syndrome with an increasing white count, with no clear evidence, questionable diarrhea and constipation. We will repeat pancultures, septic workup, and stool for clostridium difficile. The patient also is on prednisone 10 mg. We will also repeat x-ray. Dose of vancomycin was given yesterday. The patient is currently on meropenem. We will add p.o. vancomycin, pending pancultures, x-rays and clostridium difficile results. Jeromy Castellanos MD
[2018-01-11] MEDS: Insulin Lispro (humaLOG) LOW Coverage SC SCH ×4 (06:04→17:39)
[2018-01-11] MEDS ORDERED: Barium Sulfate Susp 2.1% w/v, 2.0% w/w 450 mL Bottle PO ONE (06:28)
[2018-01-11] MEDS: Levothyroxine 50 MCG TAB PO SCH (06:36)
[2018-01-11 06:43] LABS: BASO # 0.01 K/mm3 (0.0-2.0); GRAN # 21.67 (1.4-6.5); GRAN % 89.8 % (50.0-68.0); HEMOGLOBIN 9.8 g/dL (12.0-16.0); LYMPH # 1.4 (1.2-3.4); LYMPH % 5.6 % (22.0-35.0); MEAN CELL VOLUME 96.7 fl (80.0-105.0); MEAN CORPUSCULAR HEMOGLOBIN 29.5 pg (25.0-35.0); MEAN CORPUSCULAR HGB CONC 30.5 g/dl (31.0-37.0); MEAN PLATELET VOLUME 9.2 fl (7.0-11.0); MONO # 1.1 (0.1-0.6); MONO % 4.6 % (1.0-6.0); RBC 3.32 10^6/uL (3.5-6.1); RED CELL DISTRIBUTION WIDTH 18.1 % (11.5-14.5); WHITE BLOOD COUNT 24.2 10^3/ul (4.5-11.0)
[2018-01-11 06:53] LABS: ALB/GLOB RATIO 0.7 (1.1-1.8); ALBUMIN 2.6 g/dL (3.0-4.8); CALCIUM 7.8 mg/dL (8.4-10.5)
--- NOTE | 2018-01-11 08:13 | PN ---
DATE: 01/11/2018 PULMONARY NOTE SUBJECTIVE: The patient appears comfortable this morning. She is not short of breath at rest. She is awake and alert. PHYSICAL EXAMINATION: VITAL SIGNS: Temperature is 98.6, pulse 82, respirations 18, blood pressure 116/60. Oxygen saturation on nasal cannula is 96%. HEENT: Normocephalic, atraumatic. No JVD. CARDIOVASCULAR: Systolic ejection murmur at the lower left sternal border. Positive S3 gallop. LUNGS: Crackles at both bases. No rhonchi. No wheezing. EXTREMITIES: Less edema. No cyanosis. No clubbing. Calves are nontender to palpation. GI: Abdomen is soft, nontender and nondistended. Bowel sounds are positive. SKIN: No acute rash. NEUROLOGIC: Limited at the present time. IMPRESSION: 1. Acute congestive heart failure. 2. End-stage renal disease. 3. Chronic pleural effusions. 4. Anemia. 5. Mild bronchospasm. 6. Coronary artery disease. 7. Sepsis syndrome. PLAN: The patient appears comfortable this morning. She is not short of breath at rest. She is awake and alert. She does state to feeling better overall. I did discuss the case with the night nurse at length. The night nurse stated that the patient had a good night. On physical exam, there is certainly less bronchospasm noted. In addition, the alveolar-arterial gradient is also less. I will continue with the current nebulizer treatments and low-dose oral steroids (decreased yesterday) for now. The patient remains on antibiotic therapy - as per Infectious Disease. The temperatures have now resolved. The leukocytosis is decreased. Inputs by Renal and GI are also noted. Clinical status of the patient is definitely improved - compared to a few days ago. However, again, the future status/prognosis for this patient remains very guarded at best/poor. I will discuss the above with Dr. Ascencio. Joni Perkins MD MTDJose J
--- NOTE | 2018-01-11 08:14 | CP.PCM.PN ---
<Shashi Burns - Last Filed: 01/11/18 19:53> Subjective - Date & Time of Evaluation Date of Evaluation: 01/11/18 Time of Evaluation: 10:20 - Subjective Subjective: Podiatry Progress note for attending Dr. Rodriguez 82 y/o F patient seen and evaluated at the bed side for multiple b/l foot ulcers and left heel DTI. Patient states that she is having pain in her right foot at the ulcer site. Patient Denies any other pedal complaint at this time. She states that she had no overnight F/N/V/C or SOB. Objective - Vital Signs/Intake and Output Vital Signs (last 24 hours): Temp Pulse Resp BP Pulse Ox 98.6 F 82 22 116/60 96 01/10/18 17:28 01/11/18 06:00 01/10/18 17:28 01/10/18 17:28 01/10/18 17:28 Intake and Output: 01/11/18 01/11/18 06:59 18:59 Intake Total 340 Balance 340 - Medications Medications: Current Medications Acetaminophen (Tylenol 325mg Tab) 650 mg PO Q6 PRN PRN Reason: Pain, moderate (4-7) Last Admin: 01/11/18 06:35 Dose: 650 mg Albuterol/Ipratropium (Duoneb 3 Mg/0.5 Mg (3 Ml) Ud) 3 ml IH [id number] [facility] Last Admin: 01/11/18 07:51 Dose: 3 ml Aspirin (Aspirin Chewable) 81 mg PO 0800 [facility] Last Admin: 01/10/18 07:52 Dose: 81 mg Calcium Acetate (Phoslo) 667 mg PO BIDWM [facility] Last Admin: 01/10/18 17:58 Dose: 667 mg Dextrose (Dextrose 50% Inj) 0 ml IV STAT PRN; Protocol PRN Reason: Hypoglycemia Protocol Gabapentin (Neurontin) 100 mg PO HS [facility]; Protocol Last Admin: 01/10/18 21:32 Dose: 100 mg Hydrocortisone (Anusol-Hc) 5 gm [place] BID [facility] Last Admin: 01/10/18 18:12 Dose: 1 applic Dextrose (Dextrose 5% In Water 1000 Ml) 1,000 mls @ 0 mls/hr IV .Q0M PRN; Protocol PRN Reason: Hypoglycemia Protocol Meropenem 500 mg/ Sodium (Chloride) 50 mls @ 100 mls/hr IVPB Q12 [facility]; Protocol Stop: 01/11/18 17:01 Last Admin: 01/10/18 21:32 Dose: 100 mls/hr Insulin Human Lispro (Humalog Low) 0 units SC Q6 [facility]; Protocol Last Admin: 01/11/18 06:04 Dose: Not Given Levothyroxine Sodium (Synthroid) 50 mcg PO DAILY@0630 [facility] Last Admin: 01/11/18 06:36 Dose: 50 mcg Mupirocin (Bactroban Ointment) 1 gm TOP BID [facility] Last Admin: 01/10/18 18:12 Dose: 1 appl Ondansetron HCl (Zofran Inj) 4 mg IVP Q6H PRN PRN Reason: Nausea/Vomiting Prednisone (Prednisone Tab) 10 mg PO DAILY [facility] Last Admin: 01/10/18 09:07 Dose: 10 mg Quetiapine Fumarate (Seroquel) 12.5 mg PO HS [facility]; Protocol Last Admin: 01/10/18 21:31 Dose: 12.5 mg Vancomycin HCl (Vancocin 25 Mg/Ml (Oral Use)) 250 mg PO QID [facility]; Protocol Stop: 01/18/18 22:01 Last Admin: 01/10/18 21:32 Dose: 250 mg Vitamin A (Vitamin A & D Oint Ud Foilpak) 1 ea TOP BID PRN PRN Reason: Dry mouth Last Admin: 01/06/18 16:23 Dose: 1 ea - Labs Labs: 01/11/18 05:30 01/11/18 05:30 PT 14.6 SECONDS (9.4-12.5) H 01/09/18 02:45 INR 1.27 01/09/18 02:45 APTT 29.3 Seconds (25.1-36.5) 01/09/18 02:45 - Constitutional Appears: Non-toxic - Head Exam Head Exam: ATRAUMATIC - Extremities Exam Additional comments: B/l LE focused exam: Vasc: DP/PT faintly palpable 1/4 B/L. Cap refill < 3 sec in all digits. temp gradient warm to cool from proximal to distal b/l. No edema noted b/l. Neuro: Gross sensation intact, protective sensations diminished b/l. Derm: An ulcer measures [id number] noted in the lateral aspect of the right 5th MPJ. The ulcer has necrotic base 100% covered by dry black scab. No drainage, No malodor. No probing to bone, No undermining, no signs of active infection. Another ulcer measures [id number] noted in the dorsum of the1st left toe. The ulcer base is fibrous 100%. No drainage, No malodor. No probing to bone, No undermining, no signs of active infection. An abrasion covered by black scab noted in the anterior aspect of the right ankle. Deep tissue injury noted at the left heel (erythema and desquamation of the skin). MSK: Pain on palpating the right 5th MPJ monica-ulcerative area. Muscle power intact 4/5 in all groups B/L. Diffuse arthritic changes in all the foot and ankle joints b/l. - Neurological Exam Neurological Exam: Awake Assessment and Plan - Assessment and Plan (Free Text) Assessment: 82 y/o F patient seen and evaluated at the bedside for B/L foot ulcers and left heel deep tissue injury. Plan: Patient seen and evaluated at the bedside. Plan discussed in details with attending Dr. Rodriguez foot 3 views X-ray reviewed: No osteomyelitis, No fractures, Diffuse osteopenia. Chart, labs and vitals reviewed; Afebrile, WBCs 24.2. Both heels covered by optifoam. Patient right foot ulcer dressed using Bactroban, DSD and Kerlix. Patient to stay in the multipodus boot while in bed. podiatry will follow up the patient while in house. <Cassius Rodriguez - Last Filed: 01/12/18 09:49> Objective - Vital Signs/Intake and Output Vital Signs (last 24 hours): Temp Pulse Resp BP Pulse Ox 99.5 F 78 19 116/43 L 97 01/12/18 06:00 01/12/18 06:00 01/12/18 06:00 01/12/18 06:00 01/12/18 06:00 Intake and Output: 01/12/18 01/12/18 06:59 18:59 Intake Total 240 Balance 240 - Medications Medications: Current Medications Acetaminophen (Tylenol 325mg Tab) 650 mg PO Q6 PRN PRN Reason: Pain, moderate (4-7) Last Admin: 01/11/18 06:35 Dose: 650 mg Albuterol/Ipratropium (Duoneb 3 Mg/0.5 Mg (3 Ml) Ud) 3 ml IH [id number] [facility] Last Admin: 01/12/18 07:53 Dose: 3 ml Aspirin (Aspirin Chewable) 81 mg PO 0800 [facility] Last Admin: 01/11/18 17:43 Dose: 81 mg Calcium Acetate (Phoslo) 667 mg PO BIDWM [facility] Last Admin: 01/11/18 17:43 Dose: 667 mg Dextrose (Dextrose 50% Inj) 0 ml IV STAT PRN; Protocol PRN Reason: Hypoglycemia Protocol Gabapentin (Neurontin) 100 mg PO HS [facility]; Protocol Last Admin: 01/11/18 21:32 Dose: 100 mg Hydrocortisone (Anusol-Hc) 5 gm TX BID [facility] Last Admin: 01/11/18 17:45 Dose: 1 applic Dextrose (Dextrose 5% In Water 1000 Ml) 1,000 mls @ 0 mls/hr IV .Q0M PRN; Protocol PRN Reason: Hypoglycemia Protocol Insulin Human Lispro (Humalog Low) 0 units SC Q6 [facility]; Protocol Last Admin: 01/12/18 05:59 Dose: Not Given Levothyroxine Sodium (Synthroid) 50 mcg PO DAILY@0630 [facility] Last Admin: 01/12/18 05:43 Dose: 50 mcg Mupirocin (Bactroban Ointment) 1 gm TOP BID [facility] Last Admin: 01/11/18 17:45 Dose: 1 appl Ondansetron HCl (Zofran Inj) 4 mg IVP Q6H PRN PRN Reason: Nausea/Vomiting Prednisone (Prednisone Tab) 10 mg PO DAILY [facility] Last Admin: 01/11/18 09:17 Dose: 10 mg Quetiapine Fumarate (Seroquel) 12.5 mg PO HS [facility]; Protocol Last Admin: 01/11/18 21:33 Dose: 12.5 mg Vancomycin HCl (Vancocin 25 Mg/Ml (Oral Use)) 250 mg PO QID [facility]; Protocol Stop: 01/18/18 22:01 Last Admin: 01/11/18 21:39 Dose: 250 mg Vitamin A (Vitamin A & D Oint Ud Foilpak) 1 ea TOP BID PRN PRN Reason: Dry mouth Last Admin: 01/06/18 16:23 Dose: 1 ea - Labs Labs: 01/11/18 05:30 01/11/18 05:30 PT 14.6 SECONDS (9.4-12.5) H 01/09/18 02:45 INR 1.27 01/09/18 02:45 APTT 29.3 Seconds (25.1-36.5) 01/09/18 02:45 Attending/Attestation - Attestation I have personally seen and examined this patient.: Yes I have fully participated in the care of the patient.: Yes I have reviewed all pertinent clinical information, including history, physical exam and plan: Yes
[2018-01-11] MEDS: Meropenem 500 MG in Sodium Chloride 0.9% 50 ML IVPB SCH (09:15)
[2018-01-11] MEDS: Vancomycin 25 MG/ML PO SCH ×4 (09:15→21:39)
[2018-01-11] MEDS: Mupirocin 2% Ointment 15 GM TUBE TOP SCH ×2 (09:17→17:45)
[2018-01-11] MEDS: Hydrocortisone 2.5% Rectal Cream(30 gm) PR SCH ×2 (09:17→17:45)
--- NOTE | 2018-01-11 11:50 | CP.PCM.PN ---
<AyannalibiaMicah cottrell - Last Filed: 01/11/18 11:51> Subjective - Date & Time of Evaluation Date of Evaluation: 01/11/18 Time of Evaluation: 11:48 - Subjective Subjective: Tanner Armenta PGY 2 IM Resident - GI progress note Patient seen and examined. No acute events reported overnight. Patient indicates she has some pain with bowel movement. Denies nausea, vomiting, fever, chills. Objective - Vital Signs/Intake and Output Vital Signs (last 24 hours): Temp Pulse Resp BP Pulse Ox 98 F 73 20 107/34 L 99 01/11/18 04:00 01/11/18 10:00 01/11/18 04:00 01/11/18 04:00 01/11/18 04:00 Intake and Output: 01/11/18 01/11/18 06:59 18:59 Intake Total 340 Balance 340 - Medications Medications: Current Medications Acetaminophen (Tylenol 325mg Tab) 650 mg PO Q6 PRN PRN Reason: Pain, moderate (4-7) Last Admin: 01/11/18 06:35 Dose: 650 mg Albuterol/Ipratropium (Duoneb 3 Mg/0.5 Mg (3 Ml) Ud) 3 ml IH [id number] [facility] Last Admin: 01/11/18 07:51 Dose: 3 ml Aspirin (Aspirin Chewable) 81 mg PO 0800 [facility] Last Admin: 01/10/18 07:52 Dose: 81 mg Calcium Acetate (Phoslo) 667 mg PO BIDWM [facility] Last Admin: 01/11/18 08:49 Dose: 667 mg Dextrose (Dextrose 50% Inj) 0 ml IV STAT PRN; Protocol PRN Reason: Hypoglycemia Protocol Gabapentin (Neurontin) 100 mg PO HS [facility]; Protocol Last Admin: 01/10/18 21:32 Dose: 100 mg Hydrocortisone (Anusol-Hc) 5 gm [place] BID [facility] Last Admin: 01/11/18 09:17 Dose: 1 applic Dextrose (Dextrose 5% In Water 1000 Ml) 1,000 mls @ 0 mls/hr IV .Q0M PRN; Protocol PRN Reason: Hypoglycemia Protocol Meropenem 500 mg/ Sodium (Chloride) 50 mls @ 100 mls/hr IVPB Q12 [facility]; Protocol Stop: 01/11/18 17:01 Last Admin: 01/11/18 09:15 Dose: 100 mls/hr Insulin Human Lispro (Humalog Low) 0 units SC Q6 [facility]; Protocol Last Admin: 01/11/18 06:04 Dose: Not Given Levothyroxine Sodium (Synthroid) 50 mcg PO DAILY@0630 [facility] Last Admin: 01/11/18 06:36 Dose: 50 mcg Mupirocin (Bactroban Ointment) 1 gm TOP BID [facility] Last Admin: 01/11/18 09:17 Dose: 1 appl Ondansetron HCl (Zofran Inj) 4 mg IVP Q6H PRN PRN Reason: Nausea/Vomiting Prednisone (Prednisone Tab) 10 mg PO DAILY [facility] Last Admin: 01/11/18 09:17 Dose: 10 mg Quetiapine Fumarate (Seroquel) 12.5 mg PO HS [facility]; Protocol Last Admin: 01/10/18 21:31 Dose: 12.5 mg Vancomycin HCl (Vancocin 25 Mg/Ml (Oral Use)) 250 mg PO QID [facility]; Protocol Stop: 01/18/18 22:01 Last Admin: 01/11/18 09:15 Dose: 250 mg Vitamin A (Vitamin A & D Oint Ud Foilpak) 1 ea TOP BID PRN PRN Reason: Dry mouth Last Admin: 01/06/18 16:23 Dose: 1 ea - Labs Labs: 01/11/18 05:30 01/11/18 05:30 PT 14.6 SECONDS (9.4-12.5) H 01/09/18 02:45 INR 1.27 01/09/18 02:45 APTT 29.3 Seconds (25.1-36.5) 01/09/18 02:45 - Constitutional Appears: No Acute Distress, Older Than Stated Age, Chronically Ill - Head Exam Head Exam: ATRAUMATIC, NORMAL INSPECTION, NORMOCEPHALIC - Eye Exam Eye Exam: EOMI, PERRL - ENT Exam ENT Exam: Mucous Membranes Moist - Respiratory Exam Respiratory Exam: Clear to Ausculation Bilateral, NORMAL BREATHING PATTERN - Cardiovascular Exam Cardiovascular Exam: REGULAR RHYTHM, +S1, +S2 - GI/Abdominal Exam GI & Abdominal Exam: Soft, Tenderness (RUQ), Normal Bowel Sounds - Extremities Exam Extremities Exam: Full ROM - Neurological Exam Neurological Exam: Alert, Awake, Oriented x3 - Psychiatric Exam Psychiatric exam: Normal Affect, Normal Mood - Skin Skin Exam: Dry, Warm Assessment and Plan - Assessment and Plan (Free Text) Assessment: 82 year old female with past medical history of ischemic disease, HTN, HDL, ESRD on HD, DM2, diverticulosis, diverticulitis, CHF, hx of c. difficile with complaints of right sided abdominal pain and episode of diarrhea Plan: Abdominal Pain History of sepsis secondary to acute descending colon diverticulitis adn bilateral lob healthcare-associated pneumonia Hx of C. Diff associated Diarrhea S/P severe sepsis with acute sigmoid diverticulitis and acute cholecystitis HTN DM CAD with chronic CHF ESRD on HD - Patient with diarhea, c. diff pending - Continue PPI - Rectal discomfort with bm - Further recs per Dr. Theodore <Ysabel Theodore V - Last Filed: 01/12/18 22:22> Objective - Vital Signs/Intake and Output Vital Signs (last 24 hours): Temp Pulse Resp BP Pulse Ox 99.0 F 81 20 123/50 L 99 01/12/18 17:11 01/12/18 17:11 01/12/18 17:11 01/12/18 17:11 01/12/18 17:11 - Medications Medications: Current Medications Acetaminophen (Tylenol 325mg Tab) 650 mg PO Q6 PRN PRN Reason: Pain, moderate (4-7) Last Admin: 01/11/18 06:35 Dose: 650 mg Acetaminophen (Tylenol 325mg Tab) 650 mg PO Q6H PRN PRN Reason: Pain, moderate (4-7) Last Admin: 01/12/18 11:42 Dose: 650 mg Albuterol/Ipratropium (Duoneb 3 Mg/0.5 Mg (3 Ml) Ud) 3 ml IH [id number] [facility] Last Admin: 01/12/18 20:45 Dose: 3 ml Aspirin (Aspirin Chewable) 81 mg PO 0800 [facility] Last Admin: 01/12/18 09:48 Dose: 81 mg Calcium Acetate (Phoslo) 667 mg PO BIDWM [facility] Last Admin: 01/12/18 17:54 Dose: 667 mg Dextrose (Dextrose 50% Inj) 0 ml IV STAT PRN; Protocol PRN Reason: Hypoglycemia Protocol Gabapentin (Neurontin) 100 mg PO HS [facility]; Protocol Last Admin: 01/11/18 21:32 Dose: 100 mg Hydrocortisone (Anusol-Hc) 5 gm [place] BID [facility] Last Admin: 01/12/18 17:51 Dose: 1 applic Dextrose (Dextrose 5% In Water 1000 Ml) 1,000 mls @ 0 mls/hr IV .Q0M PRN; Protocol PRN Reason: Hypoglycemia Protocol Insulin Human Lispro (Humalog Low) 0 units SC Q6 [facility]; Protocol Last Admin: 01/12/18 18:16 Dose: 2 u Levothyroxine Sodium (Synthroid) 50 mcg PO DAILY@0630 [facility] Last Admin: 01/12/18 05:43 Dose: 50 mcg Mupirocin (Bactroban Ointment) 1 gm TOP BID [facility] Last Admin: 01/12/18 17:52 Dose: 1 appl Ondansetron HCl (Zofran Inj) 4 mg IVP Q6H PRN PRN Reason: Nausea/Vomiting Prednisone (Prednisone Tab) 10 mg PO DAILY [facility] Last Admin: 01/12/18 09:50 Dose: 10 mg Quetiapine Fumarate (Seroquel) 12.5 mg PO HS [facility]; Protocol Last Admin: 01/11/18 21:33 Dose: 12.5 mg Vancomycin HCl (Vancocin 25 Mg/Ml (Oral Use)) 250 mg PO QID [facility]; Protocol Stop: 01/18/18 22:01 Last Admin: 01/12/18 17:54 Dose: 250 mg Vitamin A (Vitamin A & D Oint Ud Foilpak) 1 ea TOP BID PRN PRN Reason: Dry mouth Last Admin: 01/06/18 16:23 Dose: 1 ea - Labs Labs: 01/12/18 11:30 01/12/18 11:30 PT 14.6 SECONDS (9.4-12.5) H 01/09/18 02:45 INR 1.27 01/09/18 02:45 APTT 29.3 Seconds (25.1-36.5) 01/09/18 02:45 Attending/Attestation - Attestation I have personally seen and examined this patient.: Yes I have fully participated in the care of the patient.: Yes I have reviewed all pertinent clinical information, including history, physical exam and plan: Yes Notes (Text): This is an addendum to GI followup report dictated by the [employer]. The patient was seen and evaluated earlier. Medical records, lab studies, imagings were reviewed. Last 24 hours events reviewed. Agreed with the above treatment plan as outlined in [employer] 's notes with the addition of the following Stool for C.dif positive on PO vanco Diarrhea is improving On examination abdomen soft mild tenderness in upper left quadrant area Continue PO vanco 01/12/18 22:19
--- NOTE | 2018-01-11 16:12 | PN ---
DATE: 01/11/2018 SUBJECTIVE: An 82-year-old female resting in bed this morning in the remote [facility] unit. The patient reported to have loose bowel movements. PHYSICAL EXAMINATION: VITAL SIGNS: Her temperature this morning is 98, her pulse is 82, her blood pressure is 107/34, oxygen sat is 99%. She is on 3 L of nasal oxygen. GENERAL: She is alert and oriented x3. LUNGS: Show bibasilar rhonchi. HEART: S1 and S2. ABDOMEN: Soft, positive bowel sounds. EXTREMITIES: Show no evidence of edema. There are dressings on her feet, being followed by Podiatry. LABORATORY DATA: WBC is 24.2, RBC is 3.32, hemoglobin 9.8, hematocrit 32.1, and platelet count is 87,000. Chemistry shows sodium 138, potassium 4.1, chloride 95. BUN is 36, creatinine is 3.4. Random blood sugar is 129. Calcium is 7.8. Albumin is 2.6. At this particular point in time, the patient has been placed on Anusol suppository. She is on Ecotrin. She is on topical Bactroban for wound care. She is on albuterol treatments for her COPD, sliding insulin scale for diabetes. She continues on meropenem by Infectious Disease. She is on Neurontin for neuropathy, PhosLo for her chronic renal disease, prednisone by Pulmonary for COPD, Seroquel by Neurology for agitation, Synthroid for hypothyroid disease, Tylenol for moderate pain. She has been placed on p.o. vancomycin for the loose stools. Stool for C. diff is pending. She is on vitamin A and B ointment. She has Zofran p.r.n. for nausea. She is being followed by Podiatry, Pulmonary, Infectious disease, GI, and Renal at this time. She has chronic renal disease with bilateral pleural effusions. She has a known history of ischemic heart disease with non-ST myocardial infarctions. She has peripheral vascular disease. She has osteopenia. She has a remote history of left hip surgery. She has carotid disease and hyperlipidemia. She has had community-acquired pneumonia. She has had sepsis. She has had C. diff. She has had acute diverticulitis. She has diverticulosis. She has had acute cholecystitis. She has gallstones. The patient has a living will. She is a DNR/DNI. I will await results of the C. diff study. Continue current level of care. She has a guarded prognosis. The family is aware and continues supportive care at this time. Shavonne Ascencio MD
--- NOTE | 2018-01-11 16:38 | CP.PCM.PN ---
Subjective - Date & Time of Evaluation Date of Evaluation: 01/11/18 Time of Evaluation: 10:05 - Subjective Subjective: Patient with diarrhea, no abdominal pain, no fevers. Objective - Vital Signs/Intake and Output Vital Signs (last 24 hours): Temp Pulse Resp BP Pulse Ox 98 F 73 20 107/34 L 99 01/11/18 04:00 01/11/18 10:00 01/11/18 04:00 01/11/18 04:00 01/11/18 04:00 Intake and Output: 01/11/18 01/11/18 06:59 18:59 Intake Total 340 Balance 340 - Medications Medications: Current Medications Acetaminophen (Tylenol 325mg Tab) 650 mg PO Q6 PRN PRN Reason: Pain, moderate (4-7) Last Admin: 01/11/18 06:35 Dose: 650 mg Albuterol/Ipratropium (Duoneb 3 Mg/0.5 Mg (3 Ml) Ud) 3 ml IH [id number] [facility] Last Admin: 01/11/18 13:29 Dose: Not Given Aspirin (Aspirin Chewable) 81 mg PO 0800 [facility] Last Admin: 01/10/18 07:52 Dose: 81 mg Calcium Acetate (Phoslo) 667 mg PO BIDWM [facility] Last Admin: 01/11/18 08:49 Dose: 667 mg Dextrose (Dextrose 50% Inj) 0 ml IV STAT PRN; Protocol PRN Reason: Hypoglycemia Protocol Gabapentin (Neurontin) 100 mg PO HS [facility]; Protocol Last Admin: 01/10/18 21:32 Dose: 100 mg Hydrocortisone (Anusol-Hc) 5 gm [place] BID [facility] Last Admin: 01/11/18 09:17 Dose: 1 applic Dextrose (Dextrose 5% In Water 1000 Ml) 1,000 mls @ 0 mls/hr IV .Q0M PRN; Protocol PRN Reason: Hypoglycemia Protocol Meropenem 500 mg/ Sodium (Chloride) 50 mls @ 100 mls/hr IVPB Q12 [facility]; Protocol Stop: 01/11/18 17:01 Last Admin: 01/11/18 09:15 Dose: 100 mls/hr Insulin Human Lispro (Humalog Low) 0 units SC Q6 [facility]; Protocol Last Admin: 01/11/18 12:35 Dose: 1 u Levothyroxine Sodium (Synthroid) 50 mcg PO DAILY@0630 [facility] Last Admin: 01/11/18 06:36 Dose: 50 mcg Mupirocin (Bactroban Ointment) 1 gm TOP BID [facility] Last Admin: 01/11/18 09:17 Dose: 1 appl Ondansetron HCl (Zofran Inj) 4 mg IVP Q6H PRN PRN Reason: Nausea/Vomiting Prednisone (Prednisone Tab) 10 mg PO DAILY [facility] Last Admin: 01/11/18 09:17 Dose: 10 mg Quetiapine Fumarate (Seroquel) 12.5 mg PO HS [facility]; Protocol Last Admin: 01/10/18 21:31 Dose: 12.5 mg Vancomycin HCl (Vancocin 25 Mg/Ml (Oral Use)) 250 mg PO QID [facility]; Protocol Stop: 01/18/18 22:01 Last Admin: 01/11/18 09:15 Dose: 250 mg Vitamin A (Vitamin A & D Oint Ud Foilpak) 1 ea TOP BID PRN PRN Reason: Dry mouth Last Admin: 01/06/18 16:23 Dose: 1 ea - Labs Labs: 01/11/18 05:30 01/11/18 05:30 PT 14.6 SECONDS (9.4-12.5) H 01/09/18 02:45 INR 1.27 01/09/18 02:45 APTT 29.3 Seconds (25.1-36.5) 01/09/18 02:45 - Constitutional Appears: Chronically Ill - Head Exam Head Exam: NORMAL INSPECTION - Respiratory Exam Respiratory Exam: Decreased Breath Sounds - Cardiovascular Exam Cardiovascular Exam: +S1, +S2 - GI/Abdominal Exam GI & Abdominal Exam: Soft. absent: Tenderness Assessment and Plan - Assessment and Plan (Free Text) Plan: Assessment systemic inflammatory response syndrome with encephalopathy, R/O CO2 narcosis with fluid overload, R/O severe sepsis from HCAP c. diff. associated diarrhea history of left perineal abscess S/P I and D, grew MRSA and Klebsiella - now still with residual skin and skin structure infection, growing MSSA and E. coli history of sepsis due to E. 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 diff. associated diarrhea S/P severe sepsis with acute sigmoid diverticulitis and acute cholecystitis history of acute NSTEMI history of sepsis due to acute descending colon diverticulitis and bilateral lobe healthcare-associated pneumonia history of healthcare-associated pneumonia (right upper lobe, bilateral lower lobes) HTN DM CAD with chronic CHF ESRD on HD Plan will continue Merrem day 7 to complete 7 days of therapy continue PO Vancomycin day 2 to complete 10 days of antibiotics - stool for C. diff. is positive overall prognosis is poor patient is DNR and DNI discussed with Dr. Ascencio
--- NOTE | 2018-01-11 19:53 | PN ---
DATE: 01/11/2018 SUBJECTIVE: Patient is seen lying in bed in the dialysis unit. She is awake, she is alert. She denies any pain. She denies any shortness of breath. PHYSICAL EXAMINATION: GENERAL: Elderly lady, laying in bed. VITAL SIGNS: Blood pressure 107/34, heart rate 82, respiratory rate 20, and temperature 98. NECK: Supple, no JVD. LUNGS: Bilateral equal air entry, bilateral equal expansion, bilateral crackles. CARDIAC: S1 and S2, regular rate and rhythm, positive murmur, no rub. ABDOMEN: Soft, nondistended, nontender, bowel sounds present. EXTREMITIES: No lower extremity edema. LABORATORY DATA: WBC 24, hemoglobin 9.8, hematocrit 32, and platelets 87. Sodium 136, potassium 4.1, chloride 95, CO2 of 32. BUN 36, creatinine 3.4. Glucose 129. Calcium 7.8, albumin 2.6, corrected calcium is 8.8. Blood cultures no growth. CURRENT MEDICATIONS: PhosLo, prednisone, Synthroid, Tylenol, meropenem 500 every 12 hours discontinued today. Patient received one week of medications, now on p.o. vancomycin. ASSESSMENT: 1. End-stage renal disease. 2. Sepsis. 3. Now with Clostridium difficile colitis? 4. Coronary artery disease. 5. Altered mental status, resolved. PLAN: 1. Stable dialysis. 2. Unable to ultrafiltrate because of hypotension and bradycardia. 3. Continue p.o. vancomycin as per ID recommendations. 4. Next dialysis will be on Sunday. Barbi Linares MD
[2018-01-12] MEDS: Albuterol-Ipratrop 3 mg / 0.5 (3 ml) UD IH SCH ×4 (01:41→20:45)
[2018-01-12] MEDS: Levothyroxine 50 MCG TAB PO SCH (05:43)
[2018-01-12] MEDS: Insulin Lispro (humaLOG) LOW Coverage SC SCH ×4 (05:59→18:16)
--- NOTE | 2018-01-12 08:04 | PN ---
DATE: 01/12/2018 PULMONARY NOTE SUBJECTIVE: The patient appears comfortable this morning. She is not short of breath at rest. PHYSICAL EXAMINATION: VITAL SIGNS: Temperature is 98.6, pulse 57, respirations 18, blood pressure 111/38. Oxygen saturation on nasal cannula is 100%. HEENT: Normocephalic, atraumatic. No JVD. CARDIOVASCULAR: Systolic ejection murmur at the lower left sternal border. Positive S3 gallop. LUNGS: Crackles at both bases. No rhonchi. No wheezing. EXTREMITIES: Less edema. No cyanosis. No clubbing. Calves are nontender to palpation. GI: Abdomen is soft, nontender and nondistended. Bowel sounds are positive. SKIN: No acute rash. NEUROLOGIC: Limited at the present time. IMPRESSION: 1. Acute congestive heart failure. 2. End-stage renal disease. 3. Chronic pleural effusions. 4. Anemia. 5. Mild bronchospasm. 6. Coronary artery disease. 7. Sepsis syndrome. PLAN: The patient appears comfortable this morning. She is not short of breath at rest. She is awake and alert. I did discuss the case with the night nurse at length. The night nurse stated that the patient had a very good night. The patient does state to feeling much better overall. On physical exam, there is certainly less bronchospasm noted. In addition, the alveolar-arterial gradient is much less. Oxygen saturation on nasal cannula is now 100%. I will continue with the current nebulizer treatments and low-dose oral steroids for now. The patient remains on antibiotic therapy - as per Infectious Disease. Temperatures have now resolved. The leukocytosis is improved/decreased. Clinical status of the patient is definitely improved - compared to a few days ago. However, again, the future status/prognosis for this patient remains poor. All are aware. I will discuss the above with Dr. Ascencio. Joni Perkins MD MELANIE
--- NOTE | 2018-01-12 09:33 | CARD ---
APPROVED REPORT Date of service: 01/11/2018 EKG Measurement Heart [id number] <Conclusion> Sinus bradycardia with 2nd degree AV block and 2:1 conduction ASMI, old STTW changes c/w ischemia No change
[2018-01-12] MEDS: Mupirocin 2% Ointment 15 GM TUBE TOP SCH ×2 (09:49→17:52)
[2018-01-12] MEDS: Hydrocortisone 2.5% Rectal Cream(30 gm) PR SCH ×2 (09:49→17:51)
--- NOTE | 2018-01-12 10:00 | CP.PCM.PN ---
Subjective - Date & Time of Evaluation Date of Evaluation: 01/12/18 Time of Evaluation: 09:57 - Subjective Subjective: Podiatry Progress note for attending Dr. Rodriguez 82 y/o F patient seen and evaluated at the bed side for multiple b/l foot ulcers and left heel DTI. Patient states that she is having pain in her right foot at the ulcer site. Patient Denies any other pedal complaint at this time. She states that she had no overnight F/N/V/C or SOB. Objective - Vital Signs/Intake and Output Vital Signs (last 24 hours): Temp Pulse Resp BP Pulse Ox 99.5 F 78 19 116/43 L 97 01/12/18 06:00 01/12/18 06:00 01/12/18 06:00 01/12/18 06:00 01/12/18 06:00 Intake and Output: 01/12/18 01/12/18 06:59 18:59 Intake Total 240 Balance 240 - Medications Medications: Current Medications Acetaminophen (Tylenol 325mg Tab) 650 mg PO Q6 PRN PRN Reason: Pain, moderate (4-7) Last Admin: 01/11/18 06:35 Dose: 650 mg Albuterol/Ipratropium (Duoneb 3 Mg/0.5 Mg (3 Ml) Ud) 3 ml IH [id number] [facility] Last Admin: 01/12/18 07:53 Dose: 3 ml Aspirin (Aspirin Chewable) 81 mg PO 0800 [facility] Last Admin: 01/12/18 09:48 Dose: 81 mg Calcium Acetate (Phoslo) 667 mg PO BIDWM [facility] Last Admin: 01/12/18 09:50 Dose: 667 mg Dextrose (Dextrose 50% Inj) 0 ml IV STAT PRN; Protocol PRN Reason: Hypoglycemia Protocol Gabapentin (Neurontin) 100 mg PO HS [facility]; Protocol Last Admin: 01/11/18 21:32 Dose: 100 mg Hydrocortisone (Anusol-Hc) 5 gm [place] BID [facility] Last Admin: 01/12/18 09:49 Dose: 1 applic Dextrose (Dextrose 5% In Water 1000 Ml) 1,000 mls @ 0 mls/hr IV .Q0M PRN; Protocol PRN Reason: Hypoglycemia Protocol Insulin Human Lispro (Humalog Low) 0 units SC Q6 [facility]; Protocol Last Admin: 01/12/18 05:59 Dose: Not Given Levothyroxine Sodium (Synthroid) 50 mcg PO DAILY@0630 [facility] Last Admin: 01/12/18 05:43 Dose: 50 mcg Mupirocin (Bactroban Ointment) 1 gm TOP BID [facility] Last Admin: 01/12/18 09:49 Dose: 1 appl Ondansetron HCl (Zofran Inj) 4 mg IVP Q6H PRN PRN Reason: Nausea/Vomiting Prednisone (Prednisone Tab) 10 mg PO DAILY [facility] Last Admin: 01/12/18 09:50 Dose: 10 mg Quetiapine Fumarate (Seroquel) 12.5 mg PO HS [facility]; Protocol Last Admin: 01/11/18 21:33 Dose: 12.5 mg Vancomycin HCl (Vancocin 25 Mg/Ml (Oral Use)) 250 mg PO QID [facility]; Protocol Stop: 01/18/18 22:01 Last Admin: 01/11/18 21:39 Dose: 250 mg Vitamin A (Vitamin A & D Oint Ud Foilpak) 1 ea TOP BID PRN PRN Reason: Dry mouth Last Admin: 01/06/18 16:23 Dose: 1 ea - Labs Labs: 01/11/18 05:30 01/11/18 05:30 PT 14.6 SECONDS (9.4-12.5) H 01/09/18 02:45 INR 1.27 01/09/18 02:45 APTT 29.3 Seconds (25.1-36.5) 01/09/18 02:45 - Constitutional Appears: Well, Non-toxic, No Acute Distress - Head Exam Head Exam: ATRAUMATIC, NORMOCEPHALIC - Extremities Exam Additional comments: B/l LE focused exam: Vasc: DP/PT faintly palpable 1/4 B/L. Cap refill < 3 sec in all digits. temp gradient warm to cool from proximal to distal b/l. No edema noted b/l. Neuro: Gross sensation intact, protective sensations diminished b/l. Derm: An ulcer measures [id number] noted in the lateral aspect of the right 5th MPJ. The ulcer has necrotic base 100% covered by dry black scab. No drainage, No malodor. No probing to bone, No undermining, no signs of active infection. Another ulcer measures [id number] noted in the dorsum of the1st left toe. The ulcer base is fibrous 100%. No drainage, No malodor. No probing to bone, No undermining, no signs of active infection. An abrasion covered by black scab noted in the anterior aspect of the right ankle. Deep tissue injury noted at the left heel (erythema and desquamation of the skin). MSK: Pain on palpating the right 5th MPJ monica-ulcerative area. Muscle power intact 4/5 in all groups B/L. Diffuse arthritic changes in all the foot and ankle joints b/l. - Neurological Exam Neurological Exam: Alert, Awake, Oriented x3 - Psychiatric Exam Psychiatric exam: Normal Affect, Normal Mood Assessment and Plan - Assessment and Plan (Free Text) Assessment: 82 y/o F patient seen and evaluated at the bedside for B/L foot ulcers and left heel deep tissue injury. Plan: Patient seen and evaluated at the bedside with Dr. Rodriguez X-ray reviewed: No osteomyelitis, No fractures, Diffuse osteopenia. Chart, labs and vitals reviewed; Afebrile, WBCs 24.2. Both heels covered by optifoam. Patient right foot ulcer dressed using Bactroban, DSD and Kerlix. Patient to stay in the multipodus boot while in bed. podiatry will follow up the patient while in house.
[2018-01-12 11:36] LABS: EOS % 0.1 % (1.5-5.0); GRAN # 14.71 (1.4-6.5); GRAN % 85.9 % (50.0-68.0); HEMOGLOBIN 8.4 g/dL (12.0-16.0); LYMPH # 1.4 (1.2-3.4); LYMPH % 8.2 % (22.0-35.0); MEAN CELL VOLUME 96.2 fl (80.0-105.0); MEAN CORPUSCULAR HEMOGLOBIN 29.3 pg (25.0-35.0); MEAN CORPUSCULAR HGB CONC 30.4 g/dl (31.0-37.0); MEAN PLATELET VOLUME 9.4 fl (7.0-11.0); MONO % 5.8 % (1.0-6.0); RBC 2.87 10^6/uL (3.5-6.1); RED CELL DISTRIBUTION WIDTH 17.9 % (11.5-14.5); WHITE BLOOD COUNT 17.1 10^3/ul (4.5-11.0)
[2018-01-12 11:52] LABS: ALB/GLOB RATIO 0.7 (1.1-1.8); ALBUMIN 2.4 g/dL (3.0-4.8); CALCIUM 7.4 mg/dL (8.4-10.5)
[2018-01-12] MEDS: Vancomycin 25 MG/ML PO SCH ×4 (11:57→23:18)
--- NOTE | 2018-01-12 12:45 | CP.PCM.PN ---
<Bossman Stanley - Last Filed: 01/12/18 12:50> Subjective - Date & Time of Evaluation Date of Evaluation: 01/12/18 Time of Evaluation: 08:00 - Subjective Subjective: PGY5 GI Follow up Pt seen and examined bedside still complaining of mild GI tenderness tolerating diet denies any fever, chills or diaphoresis ROS: 12 point ROS conducted neg other than above Objective - Vital Signs/Intake and Output Vital Signs (last 24 hours): Temp Pulse Resp BP Pulse Ox 99.5 F 78 19 116/43 L 97 01/12/18 06:00 01/12/18 06:00 01/12/18 06:00 01/12/18 06:00 01/12/18 06:00 Intake and Output: 01/12/18 01/12/18 06:59 18:59 Intake Total 240 Balance 240 - Medications Medications: Current Medications Acetaminophen (Tylenol 325mg Tab) 650 mg PO Q6 PRN PRN Reason: Pain, moderate (4-7) Last Admin: 01/11/18 06:35 Dose: 650 mg Acetaminophen (Tylenol 325mg Tab) 650 mg PO Q6H PRN PRN Reason: Pain, moderate (4-7) Last Admin: 01/12/18 11:42 Dose: 650 mg Albuterol/Ipratropium (Duoneb 3 Mg/0.5 Mg (3 Ml) Ud) 3 ml IH [id number] [facility] Last Admin: 01/12/18 07:53 Dose: 3 ml Aspirin (Aspirin Chewable) 81 mg PO 0800 [facility] Last Admin: 01/12/18 09:48 Dose: 81 mg Calcium Acetate (Phoslo) 667 mg PO BIDWM [facility] Last Admin: 01/12/18 09:50 Dose: 667 mg Dextrose (Dextrose 50% Inj) 0 ml IV STAT PRN; Protocol PRN Reason: Hypoglycemia Protocol Gabapentin (Neurontin) 100 mg PO HS [facility]; Protocol Last Admin: 01/11/18 21:32 Dose: 100 mg Hydrocortisone (Anusol-Hc) 5 gm [place] BID [facility] Last Admin: 01/12/18 09:49 Dose: 1 applic Dextrose (Dextrose 5% In Water 1000 Ml) 1,000 mls @ 0 mls/hr IV .Q0M PRN; Protocol PRN Reason: Hypoglycemia Protocol Insulin Human Lispro (Humalog Low) 0 units SC Q6 [facility]; Protocol Last Admin: 01/12/18 11:39 Dose: 1 u Levothyroxine Sodium (Synthroid) 50 mcg PO DAILY@0630 [facility] Last Admin: 01/12/18 05:43 Dose: 50 mcg Mupirocin (Bactroban Ointment) 1 gm TOP BID [facility] Last Admin: 01/12/18 09:49 Dose: 1 appl Ondansetron HCl (Zofran Inj) 4 mg IVP Q6H PRN PRN Reason: Nausea/Vomiting Prednisone (Prednisone Tab) 10 mg PO DAILY [facility] Last Admin: 01/12/18 09:50 Dose: 10 mg Quetiapine Fumarate (Seroquel) 12.5 mg PO HS [facility]; Protocol Last Admin: 01/11/18 21:33 Dose: 12.5 mg Vancomycin HCl (Vancocin 25 Mg/Ml (Oral Use)) 250 mg PO QID [facility]; Protocol Stop: 01/18/18 22:01 Last Admin: 01/12/18 11:57 Dose: 250 mg Vitamin A (Vitamin A & D Oint Ud Foilpak) 1 ea TOP BID PRN PRN Reason: Dry mouth Last Admin: 01/06/18 16:23 Dose: 1 ea - Labs Labs: 01/12/18 11:30 01/12/18 11:30 PT 14.6 SECONDS (9.4-12.5) H 01/09/18 02:45 INR 1.27 01/09/18 02:45 APTT 29.3 Seconds (25.1-36.5) 01/09/18 02:45 - Constitutional Appears: Well, No Acute Distress - Head Exam Head Exam: ATRAUMATIC, NORMOCEPHALIC - Eye Exam Eye Exam: Normal appearance - ENT Exam ENT Exam: Mucous Membranes Moist, Normal Exam - Neck Exam Neck Exam: Normal Inspection - Respiratory Exam Respiratory Exam: Clear to Ausculation Bilateral, NORMAL BREATHING PATTERN. absent: Rales, Rhonchi, Wheezes, Respiratory Distress - Cardiovascular Exam Cardiovascular Exam: REGULAR RHYTHM, +S1, +S2 - GI/Abdominal Exam GI & Abdominal Exam: Soft, Tenderness, Normal Bowel Sounds. absent: Firm, Guarding, Rigid - Extremities Exam Extremities Exam: absent: Joint Swelling, Pedal Edema - Neurological Exam Neurological Exam: Alert, Awake, Oriented x3 - Psychiatric Exam Psychiatric exam: Normal Affect, Normal Mood - Skin Skin Exam: Dry, Intact, Normal Color, Warm Assessment and Plan - Assessment and Plan (Free Text) Assessment: 82 year old female with past medical history of ischemic disease, HTN, HDL, ESRD on HD, DM2, diverticulosis, diverticulitis, CHF, hx of c. difficile with complaints of right sided abdominal pain and episode of diarrhea Plan: C. Diff Colitis History of sepsis secondary to acute descending colon diverticulitis adn bilateral lob healthcare-associated pneumonia Hx of C. Diff associated Diarrhea S/P severe sepsis with acute sigmoid diverticulitis and acute cholecystitis HTN DM CAD with chronic CHF ESRD on HD - switch to H2 leandro, due to increased c.diff incidence with PPI - Rectal discomfort with bm -started on Po vanco 250mg QID by ID, recommend also adding IV flagyl in the setting of severe C. Diff colitis -continue to monitor I/O D/W Dr. Theodore <Ysabel Theodore V - Last Filed: 01/12/18 22:26> Objective - Vital Signs/Intake and Output Vital Signs (last 24 hours): Temp Pulse Resp BP Pulse Ox 99.0 F 81 20 123/50 L 99 01/12/18 17:11 01/12/18 17:11 01/12/18 17:11 01/12/18 17:11 01/12/18 17:11 - Medications Medications: Current Medications Acetaminophen (Tylenol 325mg Tab) 650 mg PO Q6 PRN PRN Reason: Pain, moderate (4-7) Last Admin: 01/11/18 06:35 Dose: 650 mg Acetaminophen (Tylenol 325mg Tab) 650 mg PO Q6H PRN PRN Reason: Pain, moderate (4-7) Last Admin: 01/12/18 11:42 Dose: 650 mg Albuterol/Ipratropium (Duoneb 3 Mg/0.5 Mg (3 Ml) Ud) 3 ml IH [id number] [facility] Last Admin: 01/12/18 20:45 Dose: 3 ml Aspirin (Aspirin Chewable) 81 mg PO 0800 [facility] Last Admin: 01/12/18 09:48 Dose: 81 mg Calcium Acetate (Phoslo) 667 mg PO BIDWM [facility] Last Admin: 01/12/18 17:54 Dose: 667 mg Dextrose (Dextrose 50% Inj) 0 ml IV STAT PRN; Protocol PRN Reason: Hypoglycemia Protocol Gabapentin (Neurontin) 100 mg PO HS [facility]; Protocol Last Admin: 01/11/18 21:32 Dose: 100 mg Hydrocortisone (Anusol-Hc) 5 gm PA BID [facility] Last Admin: 01/12/18 17:51 Dose: 1 applic Dextrose (Dextrose 5% In Water 1000 Ml) 1,000 mls @ 0 mls/hr IV .Q0M PRN; Protocol PRN Reason: Hypoglycemia Protocol Insulin Human Lispro (Humalog Low) 0 units SC Q6 [facility]; Protocol Last Admin: 01/12/18 18:16 Dose: 2 u Levothyroxine Sodium (Synthroid) 50 mcg PO DAILY@0630 [facility] Last Admin: 01/12/18 05:43 Dose: 50 mcg Mupirocin (Bactroban Ointment) 1 gm TOP BID [facility] Last Admin: 01/12/18 17:52 Dose: 1 appl Ondansetron HCl (Zofran Inj) 4 mg IVP Q6H PRN PRN Reason: Nausea/Vomiting Prednisone (Prednisone Tab) 10 mg PO DAILY [facility] Last Admin: 01/12/18 09:50 Dose: 10 mg Quetiapine Fumarate (Seroquel) 12.5 mg PO HS [facility]; Protocol Last Admin: 01/11/18 21:33 Dose: 12.5 mg Vancomycin HCl (Vancocin 25 Mg/Ml (Oral Use)) 250 mg PO QID [facility]; Protocol Stop: 01/18/18 22:01 Last Admin: 01/12/18 17:54 Dose: 250 mg Vitamin A (Vitamin A & D Oint Ud Foilpak) 1 ea TOP BID PRN PRN Reason: Dry mouth Last Admin: 01/06/18 16:23 Dose: 1 ea - Labs Labs: 01/12/18 11:30 01/12/18 11:30 PT 14.6 SECONDS (9.4-12.5) H 01/09/18 02:45 INR 1.27 01/09/18 02:45 APTT 29.3 Seconds (25.1-36.5) 01/09/18 02:45 Attending/Attestation - Attestation I have personally seen and examined this patient.: Yes I have fully participated in the care of the patient.: Yes I have reviewed all pertinent clinical information, including history, physical exam and plan: Yes Notes (Text): This is an addendum to GI progress report dictated by the GI Fellow.The patient was seen and examined earlier. Medical records, lab studies, imagings were reviewed. Last 24 hours events reviewed. Agreed with the above treatment plan as outlined in GI Fellow 's notes with the addition of the following Tolerating the diet Recurrent C.diff History of diverticulitis Consider adding PO flagyl in addition if the clinical improvement is slow or worsening 01/12/18 22:23
--- NOTE | 2018-01-12 12:57 | CP.PCM.PN ---
Subjective - Date & Time of Evaluation Date of Evaluation: 01/12/18 Time of Evaluation: 12:20 - Subjective Subjective: Comfortable in bed, still with some loose stools, no vomiting. Objective - Vital Signs/Intake and Output Vital Signs (last 24 hours): Temp Pulse Resp BP Pulse Ox 99.5 F 78 19 116/43 L 97 01/12/18 06:00 01/12/18 06:00 01/12/18 06:00 01/12/18 06:00 01/12/18 06:00 Intake and Output: 01/12/18 01/12/18 06:59 18:59 Intake Total 240 Balance 240 - Medications Medications: Current Medications Acetaminophen (Tylenol 325mg Tab) 650 mg PO Q6 PRN PRN Reason: Pain, moderate (4-7) Last Admin: 01/11/18 06:35 Dose: 650 mg Acetaminophen (Tylenol 325mg Tab) 650 mg PO Q6H PRN PRN Reason: Pain, moderate (4-7) Last Admin: 01/12/18 11:42 Dose: 650 mg Albuterol/Ipratropium (Duoneb 3 Mg/0.5 Mg (3 Ml) Ud) 3 ml IH [id number] [facility] Last Admin: 01/12/18 07:53 Dose: 3 ml Aspirin (Aspirin Chewable) 81 mg PO 0800 [facility] Last Admin: 01/12/18 09:48 Dose: 81 mg Calcium Acetate (Phoslo) 667 mg PO BIDWM [facility] Last Admin: 01/12/18 09:50 Dose: 667 mg Dextrose (Dextrose 50% Inj) 0 ml IV STAT PRN; Protocol PRN Reason: Hypoglycemia Protocol Gabapentin (Neurontin) 100 mg PO HS [facility]; Protocol Last Admin: 01/11/18 21:32 Dose: 100 mg Hydrocortisone (Anusol-Hc) 5 gm [place] BID [facility] Last Admin: 01/12/18 09:49 Dose: 1 applic Dextrose (Dextrose 5% In Water 1000 Ml) 1,000 mls @ 0 mls/hr IV .Q0M PRN; Protocol PRN Reason: Hypoglycemia Protocol Insulin Human Lispro (Humalog Low) 0 units SC Q6 [facility]; Protocol Last Admin: 01/12/18 11:39 Dose: 1 u Levothyroxine Sodium (Synthroid) 50 mcg PO DAILY@0630 [facility] Last Admin: 01/12/18 05:43 Dose: 50 mcg Mupirocin (Bactroban Ointment) 1 gm TOP BID [facility] Last Admin: 01/12/18 09:49 Dose: 1 appl Ondansetron HCl (Zofran Inj) 4 mg IVP Q6H PRN PRN Reason: Nausea/Vomiting Prednisone (Prednisone Tab) 10 mg PO DAILY [facility] Last Admin: 01/12/18 09:50 Dose: 10 mg Quetiapine Fumarate (Seroquel) 12.5 mg PO HS [facility]; Protocol Last Admin: 01/11/18 21:33 Dose: 12.5 mg Vancomycin HCl (Vancocin 25 Mg/Ml (Oral Use)) 250 mg PO QID [facility]; Protocol Stop: 01/18/18 22:01 Last Admin: 01/12/18 11:57 Dose: 250 mg Vitamin A (Vitamin A & D Oint Ud Foilpak) 1 ea TOP BID PRN PRN Reason: Dry mouth Last Admin: 01/06/18 16:23 Dose: 1 ea - Labs Labs: 01/12/18 11:30 01/12/18 11:30 PT 14.6 SECONDS (9.4-12.5) H 01/09/18 02:45 INR 1.27 01/09/18 02:45 APTT 29.3 Seconds (25.1-36.5) 01/09/18 02:45 - Constitutional Appears: Cachectic, Chronically Ill - Head Exam Head Exam: NORMAL INSPECTION - Neck Exam Neck Exam: absent: Meningismus - Respiratory Exam Respiratory Exam: Decreased Breath Sounds - Cardiovascular Exam Cardiovascular Exam: +S1, +S2 - GI/Abdominal Exam GI & Abdominal Exam: Soft. absent: Tenderness Assessment and Plan - Assessment and Plan (Free Text) Plan: Assessment systemic inflammatory response syndrome with encephalopathy, R/O CO2 narcosis with fluid overload, S/P treatment for severe sepsis from HCAP c. diff. associated diarrhea history of left perineal abscess S/P I and D, grew MRSA and Klebsiella - now still with residual skin and skin structure infection, growing MSSA and E. coli history of sepsis due to E. 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 diff. associated diarrhea S/P severe sepsis with acute sigmoid diverticulitis and acute cholecystitis history of acute NSTEMI history of sepsis due to acute descending colon diverticulitis and bilateral lobe healthcare-associated pneumonia history of healthcare-associated pneumonia (right upper lobe, bilateral lower lobes) HTN DM CAD with chronic CHF ESRD on HD Plan completed 7 days of Merrem continue PO Vancomycin day 3 to complete 10 days of antibiotics - stool for C. diff. is positive overall prognosis is poor patient is DNR and DNI discussed with Dr. Ascencio
--- NOTE | 2018-01-12 13:55 | CT ---
Date of service: 01/11/2018 PROCEDURE: CT Chest, Abdomen and Pelvis without intravenous contrast HISTORY: r/o infiltrate COMPARISON: 08/29/2017 CT abdomen and pelvis TECHNIQUE: Radiation dose: Total exam DLP = 581.32 mGy-cm. This CT exam was performed using one or more of the following dose reduction techniques: Automated exposure control, adjustment of the mA and/or kV according to patient size, and/or use of iterative reconstruction technique. FINDINGS: CT CHEST WITHOUT CONTRAST: LUNGS: Compressive atelectasis affecting primarily both lower lobes. Less pronounced right middle lobe findings. Similar findings identified previously. MEDIASTINUM: Cardiomegaly. Findings likely represent congestive heart failure. LYMPH NODES: Unremarkable. PLEURA: Bilateral pleural effusions which have decreased slightly since the prior study. BONES: Unremarkable. OTHER FINDINGS: None. CT ABDOMEN AND PELVIS: LIVER: Unremarkable. No gross lesion or ductal dilatation. GALLBLADDER AND BILE DUCTS: Distended gallbladder. Cholelithiasis without CT evidence of acute cholecystitis. PANCREAS: Unremarkable. No gross lesion or ductal dilatation. SPLEEN: Unremarkable. ADRENALS: Unremarkable. No mass. KIDNEYS AND URETERS: Atrophic kidneys bilaterally. No masses or obstructing lesions identified. VASCULATURE: Unremarkable. No aortic aneurysm. BOWEL: Diverticulosis without an acute inflammatory component or other associated pathologic process. Thickening of the wall of the rectum and rectosigmoid region may represent a component of proctitis. APPENDIX: Normal appendix. PERITONEUM: Unremarkable. No free fluid. No free air. LYMPH NODES: Unremarkable. No enlarged lymph nodes. BLADDER: Unremarkable. REPRODUCTIVE: Unremarkable. BONES: No acute fracture. OTHER FINDINGS: Diffuse anasarca. IMPRESSION: THORAX: Persistent, large pleural effusions and compressive atelectasis. In the presence of cardiomegaly the findings are likely congestive heart failure. ABDOMEN AND PELVIS: Thickening of the wall of the rectosigmoid likely an acute inflammatory process/proctitis. Cholelithiasis without CT evidence of acute cholecystitis. Please note: The study was not interpreted at the time it was completed because the CT of the thorax was not at the time the initial study was completed (12:00). The abdomen thorax was not completed until 17:25.
--- NOTE | 2018-01-12 19:12 | PN ---
DATE: 01/12/2018 SUBJECTIVE: An 82-year-old female resting in bed this morning. The patient states that she is having pain in the lower rectal area and pain with her feet. Nursing staff relates that the patient is having loose bowel movements. PHYSICAL EXAMINATION: VITAL SIGNS: Temperature is 99.5 orally, pulse is 78, blood pressure is 116/43, respiratory rate is 19. GENERAL: The patient is alert, oriented x3. LUNGS: Show rhonchi with diminished breath sounds at the bases. HEART: Irregular S1, S2 rhythm with grade 3/6 systolic murmur. ABDOMEN: Soft, scaphoid. Positive bowel sounds. There is mild lower quadrant tenderness. No rebound appreciated. EXTREMITIES: Show no evidence of edema. Dressings were present from Podiatry. The patient was found to have a positive C. diff toxin, currently on p.o. vancomycin. She is also completing a course of meropenem. She is being followed by Infectious Disease, GI, Pulmonary and Renal. She has pending results of the CAT scan of the abdomen and pelvis. We will request laboratory data for followup. The patient has a history of community-acquired pneumonia, C difficile infection, VRE in the urine, non-ST myocardial infarctions, bradyarrhythmias, acute diverticulitis, pleural effusions, CHF, hypertension, diabetes mellitus, coronary artery disease and end-stage renal disease on dialysis. We will await above tests. Input from the individual consultants and continue conservative supportive care and comfort as the patient has a DNR/DNI living well. Shavonne Ascencio MD
[2018-01-13] MEDS: Albuterol-Ipratrop 3 mg / 0.5 (3 ml) UD IH SCH ×4 (02:45→21:00)
[2018-01-13] MEDS: Levothyroxine 50 MCG TAB PO SCH (06:50)
[2018-01-13] MEDS: Insulin Lispro (humaLOG) LOW Coverage SC SCH ×4 (06:57→17:23)
--- NOTE | 2018-01-13 08:46 | PN ---
DATE: 01/13/2018 PULMONARY NOTE DICTATION SUBJECTIVE: The patient appears comfortable this morning. She is not short of breath at rest. PHYSICAL EXAMINATION: VITAL SIGNS: Last temperature recorded is 99, pulse 82, respirations 18/20, blood pressure 123/50. Oxygen saturation on nasal cannula is 99%. HEENT: Normocephalic, atraumatic. No JVD. CARDIOVASCULAR: Systolic ejection murmur at the lower left sternal border. Positive S3 gallop. LUNGS: Decreased breath sounds with crackles at both bases. No rhonchi. No wheezing. EXTREMITIES: Less edema. No cyanosis, no clubbing. Calves are nontender to palpation. GI: Abdomen is soft, nontender and nondistended. Bowel sounds are positive. SKIN: No acute rash. NEUROLOGIC: Exam limited at the present time. PERTINENT LABORATORY DATA: CAT scan of the chest was done and reviewed. There are large bilateral pleural effusions noted, with adjacent compressive atelectasis. There is interstitial edema noted. Findings are consistent with congestive heart failure. IMPRESSION: 1. Acute congestive heart failure. 2. End-stage renal disease. 3. Chronic pleural effusions. 4. Anemia. 5. Mild bronchospasm. 6. Coronary artery disease. 7. Sepsis syndrome. PLAN: The patient appears comfortable this morning. She is not short of breath at rest. She is awake and alert. She does state to feeling much better overall. I did discuss case with the night nurse at length. The night nurse stated the patient had a very good night. On physical exam, there is certainly less bronchospasm noted. In addition, the alveolar-arterial gradient is also less. I will continue with the current nebulizer treatments and discontinue the oral steroids this morning. CAT scan of the chest was done yesterday. Findings are noted above. The pulmonary findings are not significantly changed from previous CAT scans. The patient remains on antibiotic therapy - as per Infectious Disease. Input by Dr. Blevins is noted. Clinical status of the patient is certainly improved - compared to a few days ago. However, again, unfortunately, the overall status/prognosis for this patient remains poor. I will discuss the above with the attending physician. Joni Perkins MD [facility] # [id number] MELANIE
[2018-01-13] MEDS: Vancomycin 25 MG/ML PO SCH ×4 (10:40→21:49)
[2018-01-13] MEDS: Mupirocin 2% Ointment 15 GM TUBE TOP SCH ×2 (10:42→17:50)
[2018-01-13] MEDS: Hydrocortisone 2.5% Rectal Cream(30 gm) PR SCH ×2 (10:42→17:51)
--- NOTE | 2018-01-13 10:47 | CP.PCM.PN ---
Subjective - Date & Time of Evaluation Date of Evaluation: 01/13/18 Time of Evaluation: 09:55 - Subjective Subjective: No fevers, not in distress, no abdominal pain, diarrhea is improving. Objective - Vital Signs/Intake and Output Vital Signs (last 24 hours): Temp Pulse Resp BP Pulse Ox 98.4 F 84 18 134/58 L 95 01/13/18 06:00 01/13/18 06:00 01/13/18 06:00 01/13/18 06:00 01/13/18 06:00 Intake and Output: 01/13/18 01/13/18 06:59 18:59 Intake Total 720 Output Total 0 Balance 720 - Medications Medications: Current Medications Acetaminophen (Tylenol 325mg Tab) 650 mg PO Q6 PRN PRN Reason: Pain, moderate (4-7) Last Admin: 01/11/18 06:35 Dose: 650 mg Acetaminophen (Tylenol 325mg Tab) 650 mg PO Q6H PRN PRN Reason: Pain, moderate (4-7) Last Admin: 01/12/18 11:42 Dose: 650 mg Albuterol/Ipratropium (Duoneb 3 Mg/0.5 Mg (3 Ml) Ud) 3 ml IH [id number] [facility] Last Admin: 01/13/18 08:33 Dose: 3 ml Aspirin (Aspirin Chewable) 81 mg PO 0800 [facility] Last Admin: 01/12/18 09:48 Dose: 81 mg Calcium Acetate (Phoslo) 667 mg PO BIDWM [facility] Last Admin: 01/12/18 17:54 Dose: 667 mg Dextrose (Dextrose 50% Inj) 0 ml IV STAT PRN; Protocol PRN Reason: Hypoglycemia Protocol Gabapentin (Neurontin) 100 mg PO HS [facility]; Protocol Last Admin: 01/12/18 23:18 Dose: 100 mg Hydrocortisone (Anusol-Hc) 5 gm KS BID [facility] Last Admin: 01/12/18 17:51 Dose: 1 applic Dextrose (Dextrose 5% In Water 1000 Ml) 1,000 mls @ 0 mls/hr IV .Q0M PRN; Protocol PRN Reason: Hypoglycemia Protocol Insulin Human Lispro (Humalog Low) 0 units SC Q6 [facility]; Protocol Last Admin: 01/13/18 06:57 Dose: Not Given Levothyroxine Sodium (Synthroid) 50 mcg PO DAILY@0630 [facility] Last Admin: 01/13/18 06:50 Dose: 50 mcg Mupirocin (Bactroban Ointment) 1 gm TOP BID [facility] Last Admin: 01/12/18 17:52 Dose: 1 appl Ondansetron HCl (Zofran Inj) 4 mg IVP Q6H PRN PRN Reason: Nausea/Vomiting Quetiapine Fumarate (Seroquel) 12.5 mg PO HS [facility]; Protocol Last Admin: 01/12/18 23:18 Dose: 12.5 mg Vancomycin HCl (Vancocin 25 Mg/Ml (Oral Use)) 250 mg PO QID [facility]; Protocol Stop: 01/18/18 22:01 Last Admin: 01/12/18 23:18 Dose: 250 mg Vitamin A (Vitamin A & D Oint Ud Foilpak) 1 ea TOP BID PRN PRN Reason: Dry mouth Last Admin: 01/06/18 16:23 Dose: 1 ea - Labs Labs: 01/12/18 11:30 01/12/18 11:30 PT 14.6 SECONDS (9.4-12.5) H 01/09/18 02:45 INR 1.27 01/09/18 02:45 APTT 29.3 Seconds (25.1-36.5) 01/09/18 02:45 - Constitutional Appears: No Acute Distress, Cachectic, Chronically Ill - Head Exam Head Exam: NORMAL INSPECTION - Respiratory Exam Respiratory Exam: Decreased Breath Sounds - Cardiovascular Exam Cardiovascular Exam: +S1, +S2 - GI/Abdominal Exam GI & Abdominal Exam: Soft. absent: Tenderness Assessment and Plan - Assessment and Plan (Free Text) Plan: Assessment systemic inflammatory response syndrome with encephalopathy, R/O CO2 narcosis with fluid overload, S/P treatment for severe sepsis from HCAP c. diff. associated diarrhea history of left perineal abscess S/P I and D, grew MRSA and Klebsiella - now still with residual skin and skin structure infection, growing MSSA and E. coli history of sepsis due to E. 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 diff. associated diarrhea S/P severe sepsis with acute sigmoid diverticulitis and acute cholecystitis history of acute NSTEMI history of sepsis due to acute descending colon diverticulitis and bilateral lo be healthcare-associated pneumonia history of healthcare-associated pneumonia (right upper lobe, bilateral lower lobes) HTN DM CAD with chronic CHF ESRD on HD Plan completed 7 days of Merrem continue PO Vancomycin day 4 to complete 10 days of antibiotics - stool for C. diff. is positive (antigen only, not toxin) overall prognosis is poor patient is DNR and DNI
[2018-01-13] MEDS ORDERED: Potassium Chloride 20 mEq ER Tab PO ONE (11:51)
--- NOTE | 2018-01-13 11:52 | CP.PCM.PN ---
<Basilio Bridges - Last Filed: 01/13/18 11:50> Subjective - Date & Time of Evaluation Date of Evaluation: 01/13/18 Time of Evaluation: 11:50 - Subjective Subjective: Podiatry Progress note for attending Dr. Rodriguez 82 y/o F patient seen and evaluated at the bed side for multiple b/l foot ulcers and left heel DTI. Patient states that she is having pain in her right foot at the ulcer site. Patient Denies any other pedal complaint at this time. She states that she had no overnight F/N/V/C or SOB. Objective - Vital Signs/Intake and Output Vital Signs (last 24 hours): Temp Pulse Resp BP Pulse Ox 98.4 F 84 18 134/58 L 95 01/13/18 06:00 01/13/18 06:00 01/13/18 06:00 01/13/18 06:00 01/13/18 06:00 Intake and Output: 01/13/18 01/13/18 06:59 18:59 Intake Total 720 Output Total 0 Balance 720 - Medications Medications: Current Medications Acetaminophen (Tylenol 325mg Tab) 650 mg PO Q6 PRN PRN Reason: Pain, moderate (4-7) Last Admin: 01/11/18 06:35 Dose: 650 mg Acetaminophen (Tylenol 325mg Tab) 650 mg PO Q6H PRN PRN Reason: Pain, moderate (4-7) Last Admin: 01/12/18 11:42 Dose: 650 mg Albuterol/Ipratropium (Duoneb 3 Mg/0.5 Mg (3 Ml) Ud) 3 ml IH [id number] [facility] Last Admin: 01/13/18 08:33 Dose: 3 ml Aspirin (Aspirin Chewable) 81 mg PO 0800 [facility] Last Admin: 01/13/18 10:39 Dose: 81 mg Calcium Acetate (Phoslo) 667 mg PO BIDWM [facility] Last Admin: 01/13/18 10:39 Dose: 667 mg Dextrose (Dextrose 50% Inj) 0 ml IV STAT PRN; Protocol PRN Reason: Hypoglycemia Protocol Gabapentin (Neurontin) 100 mg PO HS [facility]; Protocol Last Admin: 01/12/18 23:18 Dose: 100 mg Hydrocortisone (Anusol-Hc) 5 gm [place] BID [facility] Last Admin: 01/13/18 10:42 Dose: 1 applic Dextrose (Dextrose 5% In Water 1000 Ml) 1,000 mls @ 0 mls/hr IV .Q0M PRN; Protocol PRN Reason: Hypoglycemia Protocol Insulin Human Lispro (Humalog Low) 0 units SC Q6 [facility]; Protocol Last Admin: 01/13/18 06:57 Dose: Not Given Levothyroxine Sodium (Synthroid) 50 mcg PO DAILY@0630 [facility] Last Admin: 01/13/18 06:50 Dose: 50 mcg Mupirocin (Bactroban Ointment) 1 gm TOP BID [facility] Last Admin: 01/13/18 10:42 Dose: 1 appl Ondansetron HCl (Zofran Inj) 4 mg IVP Q6H PRN PRN Reason: Nausea/Vomiting Quetiapine Fumarate (Seroquel) 12.5 mg PO HS [facility]; Protocol Last Admin: 01/12/18 23:18 Dose: 12.5 mg Vancomycin HCl (Vancocin 25 Mg/Ml (Oral Use)) 250 mg PO QID [facility]; Protocol Stop: 01/18/18 22:01 Last Admin: 01/13/18 10:40 Dose: 250 mg Vitamin A (Vitamin A & D Oint Ud Foilpak) 1 ea TOP BID PRN PRN Reason: Dry mouth Last Admin: 01/06/18 16:23 Dose: 1 ea - Labs Labs: 01/12/18 11:30 01/12/18 11:30 PT 14.6 SECONDS (9.4-12.5) H 01/09/18 02:45 INR 1.27 01/09/18 02:45 APTT 29.3 Seconds (25.1-36.5) 01/09/18 02:45 - Constitutional Appears: Well, Non-toxic, No Acute Distress - Extremities Exam Additional comments: B/l LE focused exam: Vasc: DP/PT faintly palpable 1/4 B/L. Cap refill < 3 sec in all digits. temp gradient warm to cool from proximal to distal b/l. No edema noted b/l. Neuro: Gross sensation intact, protective sensations diminished b/l. Derm: An ulcer measures [id number] noted in the lateral aspect of the right 5th MPJ. The ulcer has necrotic base 100% covered by dry black scab. No drainage, No malodor. No probing to bone, No undermining, no signs of active infection. Another ulcer measures [id number] noted in the dorsum of the1st left toe. The ulcer base is fibrous 100%. No drainage, No malodor. No probing to bone, No undermining, no signs of active infection. An abrasion covered by black scab noted in the anterior aspect of the right ankle. Deep tissue injury noted at the left heel (erythema and desquamation of the skin). MSK: Pain on palpating the right 5th MPJ monica-ulcerative area. Muscle power intact 4/5 in all groups B/L. Diffuse arthritic changes in all the foot and ankle joints b/l. - Neurological Exam Neurological Exam: Alert, Awake, Oriented x3 - Psychiatric Exam Psychiatric exam: Normal Affect, Normal Mood Assessment and Plan - Assessment and Plan (Free Text) Assessment: 82 y/o F patient seen and evaluated at the bedside for B/L foot ulcers and left heel deep tissue injury. Plan: Patient seen and evaluated at the bedside with Dr. Rodriguez X-ray reviewed: No osteomyelitis, No fractures, Diffuse osteopenia. Chart, labs and vitals reviewed; Afebrile, WBCs 17.1. Both heels covered by optifoam. Patient right foot ulcer dressed using Bactroban, DSD and Kerlix. Patient instructed to continue to wear multipodus boots in bed as much as po ssible but can have them removed at some points throughout the day as she complains of pain while wearing them podiatry will follow up the patient while in house. <Cassius Rodriguez - Last Filed: 01/15/18 12:08> Objective - Vital Signs/Intake and Output Vital Signs (last 24 hours): Temp Pulse Resp BP Pulse Ox 99.1 F 63 20 160/68 H 93 L 01/14/18 18:00 01/14/18 18:00 01/14/18 18:00 01/14/18 18:00 01/14/18 18:00 - Labs Labs: 01/14/18 07:00 01/14/18 07:00 PT 14.6 SECONDS (9.4-12.5) H 01/09/18 02:45 INR 1.27 01/09/18 02:45 APTT 29.3 Seconds (25.1-36.5) 01/09/18 02:45 Attending/Attestation - Attestation I have personally seen and examined this patient.: Yes I have fully participated in the care of the patient.: Yes I have reviewed all pertinent clinical information, including history, physical exam and plan: Yes
--- NOTE | 2018-01-13 15:25 | PN ---
DATE: 01/13/2018 SUBJECTIVE: The patient is seen lying in bed. She is awake. She is alert. She is comfortable. She reports she has had no diarrhea today. PHYSICAL EXAMINATION GENERAL: Elderly lady lying in bed. VITAL SIGNS: Blood pressure 134/58, heart rate 84, respiratory rate 18, temperature 98.4. HEENT: Normocephalic, atraumatic, positive pallor. NECK: Supple, no JVD. LUNGS: Bilateral equal air entry, crackles in right side more than left. CARDIAC: S1 and S2, regular rate and rhythm, no murmur, no rub. ABDOMEN: Soft, nondistended, nontender, bowel sounds present. EXTREMITIES: No lower extremity edema. INTAKE AND OUTPUT: Not charted. LABORATORY DATA: WBC 17, hemoglobin 8.4, hematocrit 27.6, platelets 75. Potassium 3.2 yesterday. CURRENT MEDICATIONS: PhosLo, Synthroid, Tylenol, p.o. vancomycin 250 four times a day. ASSESSMENT: 1. Status post sepsis/altered mental status. 2. Clostridium difficile colitis? 3. Hypokalemia secondary to diarrhea. 4. End-stage renal disease, next dialysis tomorrow. 5. Coronary artery disease, paroxysmal atrial fibrillation, congestive heart failure. PLAN: 1. Continue p.o. vancomycin. 2. Dialysis tomorrow. 3. Replace potassium, 20 mEq of KCl today. Barbi Linares MD
--- NOTE | 2018-01-13 16:33 | CP.PCM.PN ---
<Bossman Stanley - Last Filed: 01/13/18 16:34> Subjective - Date & Time of Evaluation Date of Evaluation: 01/13/18 Time of Evaluation: 10:00 - Subjective Subjective: PGY5 GI follow-up Pt seen and examined bedside Denies any abd pain tolerates diet Denies any nausea, vomiting decrease BM, more formed ROS: 12 point ROS conducted, neg other than above Objective - Vital Signs/Intake and Output Vital Signs (last 24 hours): Temp Pulse Resp BP Pulse Ox 98.4 F 84 18 134/58 L 95 01/13/18 06:00 01/13/18 06:00 01/13/18 06:00 01/13/18 06:00 01/13/18 06:00 Intake and Output: 01/13/18 01/13/18 06:59 18:59 Intake Total 720 Output Total 0 Balance 720 - Medications Medications: Current Medications Acetaminophen (Tylenol 325mg Tab) 650 mg PO Q6 PRN PRN Reason: Pain, moderate (4-7) Last Admin: 01/11/18 06:35 Dose: 650 mg Acetaminophen (Tylenol 325mg Tab) 650 mg PO Q6H PRN PRN Reason: Pain, moderate (4-7) Last Admin: 01/12/18 11:42 Dose: 650 mg Albuterol/Ipratropium (Duoneb 3 Mg/0.5 Mg (3 Ml) Ud) 3 ml IH [id number] [facility] Last Admin: 01/13/18 13:40 Dose: 3 ml Aspirin (Aspirin Chewable) 81 mg PO 0800 [facility] Last Admin: 01/13/18 10:39 Dose: 81 mg Calcium Acetate (Phoslo) 667 mg PO BIDWM [facility] Last Admin: 01/13/18 10:39 Dose: 667 mg Darbepoetin Zack (Aranesp) 100 mcg IVP ONCE ONE Stop: 01/14/18 06:01 Dextrose (Dextrose 50% Inj) 0 ml IV STAT PRN; Protocol PRN Reason: Hypoglycemia Protocol Gabapentin (Neurontin) 100 mg PO HS [facility]; Protocol Last Admin: 01/12/18 23:18 Dose: 100 mg Hydrocortisone (Anusol-Hc) 5 gm KS BID [facility] Last Admin: 01/13/18 10:42 Dose: 1 applic Dextrose (Dextrose 5% In Water 1000 Ml) 1,000 mls @ 0 mls/hr IV .Q0M PRN; Protocol PRN Reason: Hypoglycemia Protocol Insulin Human Lispro (Humalog Low) 0 units SC Q6 [facility]; Protocol Last Admin: 01/13/18 12:11 Dose: 1 u Levothyroxine Sodium (Synthroid) 50 mcg PO DAILY@0630 [facility] Last Admin: 01/13/18 06:50 Dose: 50 mcg Mupirocin (Bactroban Ointment) 1 gm TOP BID [facility] Last Admin: 01/13/18 10:42 Dose: 1 appl Ondansetron HCl (Zofran Inj) 4 mg IVP Q6H PRN PRN Reason: Nausea/Vomiting Quetiapine Fumarate (Seroquel) 12.5 mg PO HS [facility]; Protocol Last Admin: 01/12/18 23:18 Dose: 12.5 mg Vancomycin HCl (Vancocin 25 Mg/Ml (Oral Use)) 250 mg PO QID [facility]; Protocol Stop: 01/18/18 22:01 Last Admin: 01/13/18 14:03 Dose: 250 mg Vitamin A (Vitamin A & D Oint Ud Foilpak) 1 ea TOP BID PRN PRN Reason: Dry mouth Last Admin: 01/06/18 16:23 Dose: 1 ea - Labs Labs: 01/12/18 11:30 01/12/18 11:30 PT 14.6 SECONDS (9.4-12.5) H 01/09/18 02:45 INR 1.27 01/09/18 02:45 APTT 29.3 Seconds (25.1-36.5) 01/09/18 02:45 - Constitutional Appears: Well, No Acute Distress - Head Exam Head Exam: ATRAUMATIC, NORMOCEPHALIC - Eye Exam Eye Exam: Normal appearance - ENT Exam ENT Exam: Mucous Membranes Moist, Normal Exam - Neck Exam Neck Exam: Normal Inspection - Respiratory Exam Respiratory Exam: Clear to Ausculation Bilateral, NORMAL BREATHING PATTERN. absent: Rales, Rhonchi, Wheezes, Respiratory Distress - Cardiovascular Exam Cardiovascular Exam: REGULAR RHYTHM, +S1, +S2 - GI/Abdominal Exam GI & Abdominal Exam: Soft, Normal Bowel Sounds. absent: Distended, Firm, Guarding, Rigid, Tenderness, Organomegaly, Rebound - Extremities Exam Extremities Exam: absent: Joint Swelling, Pedal Edema - Neurological Exam Neurological Exam: Alert, Awake, Oriented x3 - Psychiatric Exam Psychiatric exam: Normal Affect, Normal Mood - Skin Skin Exam: Dry, Intact, Normal Color, Warm Assessment and Plan - Assessment and Plan (Free Text) Assessment: 82 year old female with past medical history of ischemic disease, HTN, HDL, ESRD on HD, DM2, diverticulosis, diverticulitis, CHF, hx of c. difficile with complaints of right sided abdominal pain and episode of diarrhea Plan: C. Diff Colitis History of sepsis secondary to acute descending colon diverticulitis adn bilateral lob healthcare-associated pneumonia Hx of C. Diff associated Diarrhea S/P severe sepsis with acute sigmoid diverticulitis and acute cholecystitis HTN DM CAD with chronic CHF ESRD on HD - Rectal discomfort with bm -started on Po vanco 250mg QID by ID, recommend also adding IV flagyl if clinically worsens -continue to monitor I/O -diet as tolerated with assistance seen and D/W Dr. Theodore <Ysabel Theodore V - Last Filed: 01/13/18 23:20> Objective - Vital Signs/Intake and Output Vital Signs (last 24 hours): Temp Pulse Resp BP Pulse Ox 99.1 F 117 H 19 134/53 L 96 01/13/18 16:41 01/13/18 22:00 01/13/18 16:41 01/13/18 16:41 01/13/18 16:41 Intake and Output: 01/13/18 01/14/18 18:59 06:59 Intake Total 1060 Balance 1060 - Medications Medications: Current Medications Acetaminophen (Tylenol 325mg Tab) 650 mg PO Q6 PRN PRN Reason: Pain, moderate (4-7) Last Admin: 01/11/18 06:35 Dose: 650 mg Acetaminophen (Tylenol 325mg Tab) 650 mg PO Q6H PRN PRN Reason: Pain, moderate (4-7) Last Admin: 01/12/18 11:42 Dose: 650 mg Albuterol/Ipratropium (Duoneb 3 Mg/0.5 Mg (3 Ml) Ud) 3 ml IH [id number] [facility] Last Admin: 01/13/18 21:00 Dose: 3 ml Aspirin (Aspirin Chewable) 81 mg PO 0800 [facility] Last Admin: 01/13/18 10:39 Dose: 81 mg Calcium Acetate (Phoslo) 667 mg PO BIDWM [facility] Last Admin: 01/13/18 17:49 Dose: 667 mg Darbepoetin Zack (Aranesp) 100 mcg IVP ONCE ONE Stop: 01/14/18 06:01 Dextrose (Dextrose 50% Inj) 0 ml IV STAT PRN; Protocol PRN Reason: Hypoglycemia Protocol Gabapentin (Neurontin) 100 mg PO HS [facility]; Protocol Last Admin: 01/13/18 21:45 Dose: 100 mg Hydrocortisone (Anusol-Hc) 5 gm KS BID [facility] Last Admin: 01/13/18 17:51 Dose: 1 applic Dextrose (Dextrose 5% In Water 1000 Ml) 1,000 mls @ 0 mls/hr IV .Q0M PRN; Protocol PRN Reason: Hypoglycemia Protocol Insulin Human Lispro (Humalog Low) 0 units SC Q6 [facility]; Protocol Last Admin: 01/13/18 17:23 Dose: Not Given Levothyroxine Sodium (Synthroid) 50 mcg PO DAILY@0630 [facility] Last Admin: 01/13/18 06:50 Dose: 50 mcg Mupirocin (Bactroban Ointment) 1 gm TOP BID [facility] Last Admin: 01/13/18 17:50 Dose: 1 appl Ondansetron HCl (Zofran Inj) 4 mg IVP Q6H PRN PRN Reason: Nausea/Vomiting Quetiapine Fumarate (Seroquel) 12.5 mg PO HS [facility]; Protocol Last Admin: 01/13/18 21:45 Dose: 12.5 mg Vancomycin HCl (Vancocin 25 Mg/Ml (Oral Use)) 250 mg PO QID [facility]; Protocol Stop: 01/18/18 22:01 Last Admin: 01/13/18 21:49 Dose: 250 mg Vitamin A (Vitamin A & D Oint Ud Foilpak) 1 ea TOP BID PRN PRN Reason: Dry mouth Last Admin: 01/06/18 16:23 Dose: 1 ea - Labs Labs: 01/12/18 11:30 01/12/18 11:30 PT 14.6 SECONDS (9.4-12.5) H 01/09/18 02:45 INR 1.27 01/09/18 02:45 APTT 29.3 Seconds (25.1-36.5) 01/09/18 02:45 Attending/Attestation - Attestation I have personally seen and examined this patient.: Yes I have fully participated in the care of the patient.: Yes I have reviewed all pertinent clinical information, including history, physical exam and plan: Yes Notes (Text): This is an addendum to GI progress report dictated by the GI Fellow.The patient was seen and examined earlier. Medical records, lab studies, imagings were reviewed. Last 24 hours events reviewed. Agreed with the above treatment plan as outlined in GI Fellow 's notes with the addition of the following Feeling better Left upper quadrant discomfort has significantly improved No bowl movements today On examination abdomen soft no tenderness Reoccurrence C.diff Continue PO vanco Empiric low dose PPI Will sign off and re-consult as needed 01/13/18 23:17
--- NOTE | 2018-01-13 21:00 | PN ---
DATE: 01/13/[address] Ascencio. SUBJECTIVE: The patient is an 82 years old with a history of congestive heart failure, sepsis secondary to pneumonia and C. diff colitis. She also has a history of renal insufficiency, congestive heart failure and chronic pneumonia. The patient was seen and examined, lying in bed, seems very anxious and disoriented. PHYSICAL EXAMINATION VITAL SIGNS: She is afebrile, pulse 84, respirations 18, blood pressure 138/58. LUNGS: Bilateral fair airflow. No rhonchi or crackle; however, she has decreased breath sound at bases. HEART: S1 and S2 audible. No irregularity noted. ABDOMEN: Soft, nontender. No rebound. No guarding. No palpable hepatosplenomegaly. NEUROLOGIC: She is confused and disoriented. EXTREMITIES: Bilateral legs, no edema; however, she has ulcers on both feet that are wrapped by Podiatry team. LABORATORY DATA: WBC 17, hemoglobin 8.4, hematocrit 27.6, and platelets of 75. Her chemistry; blood sugar is 184. Her microbiology; she has positive C. diff on the specimen that was collected on 01/10/2018. However, her blood cultures are negative. She had CT scan of the abdomen and pelvis done on 01/11 that shows large pleural effusion, compressive atelectasis and also she has cholelithiasis without CT evidence of acute cholecystitis. ASSESSMENT: 1. End-stage renal disease, on hemodialysis. 2. Clostridium difficile colitis. 3. Hypertension. 4. Congestive heart failure. 5. Chronic anemia. 6. Mild dementia. PLAN: Currently, the patient is being followed by Podiatry team, followed by Wound Care. She is on aspirin 81 daily. She is getting nebulizer treatment. She is on p.o. vancomycin. The patient is DNR. Continue supportive care. Tommy Maldonado MD
[2018-01-14] MEDS ORDERED: Albuterol-Ipratrop 3 mg / 0.5 (3 ml) UD IH STA (00:40)
[2018-01-14] MEDS: Insulin Lispro (humaLOG) LOW Coverage SC SCH ×4 (01:40→17:38)
[2018-01-14] MEDS: Albuterol-Ipratrop 3 mg / 0.5 (3 ml) UD IH SCH ×3 (02:35→14:07)
[2018-01-14] MEDS: Levothyroxine 50 MCG TAB PO SCH (05:36)
[2018-01-14] MEDS ORDERED: Darbepoetin Alfa 100 mcg/ml Inj IVP ONE (06:00)
[2018-01-14 07:45] LABS: BASO # 0.01 K/mm3 (0.0-2.0); BASO % 0.1 % (0.0-3.0); EOS % 0.2 % (1.5-5.0); GRAN # 8.38 (1.4-6.5); GRAN % 82.1 % (50.0-68.0); HEMOGLOBIN 9.5 g/dL (12.0-16.0); LYMPH # 1.3 (1.2-3.4); LYMPH % 12.4 % (22.0-35.0); MEAN CELL VOLUME 94.2 fl (80.0-105.0); MEAN CORPUSCULAR HEMOGLOBIN 29.2 pg (25.0-35.0); MEAN PLATELET VOLUME 9.3 fl (7.0-11.0); MONO # 0.5 (0.1-0.6); MONO % 5.2 % (1.0-6.0); RBC 3.25 10^6/uL (3.5-6.1); RED CELL DISTRIBUTION WIDTH 17.4 % (11.5-14.5); WHITE BLOOD COUNT 10.2 10^3/ul (4.5-11.0)
[2018-01-14 08:18] LABS: ALB/GLOB RATIO 0.7 (1.1-1.8); ALBUMIN 2.6 g/dL (3.0-4.8); CALCIUM 7.7 mg/dL (8.4-10.5)
--- NOTE | 2018-01-14 08:32 | PN ---
DATE: 01/14/2018 PULMONARY NOTE DICTATION SUBJECTIVE: The patient appears comfortable this morning. She is not short of breath at rest. PHYSICAL EXAMINATION: VITAL SIGNS: Temperature is 98.4, pulse 84, respirations 18/20, blood pressure 141/75. Oxygen saturation on nasal cannula is 96%. HEENT: Normocephalic, atraumatic. No JVD. CARDIOVASCULAR: Systolic ejection murmur at the lower left sternal border. Positive S3 gallop. LUNGS: Decreased breath sounds at the bases with crackles. No rhonchi. No wheezing. EXTREMITIES: Less edema. No cyanosis, no clubbing. Calves are nontender to palpation. GI: Abdomen is soft, nontender and nondistended. Bowel sounds are positive. SKIN: No acute rash. NEUROLOGIC: Exam limited at the present time. IMPRESSION: 1. Acute congestive heart failure. 2. End-stage renal disease. 3. Chronic pleural effusions. 4. Anemia. 5. Mild bronchospasm. 6. Coronary artery disease. 7. Sepsis syndrome. PLAN: The patient appears comfortable this morning. She is not short of breath at rest. She does state to feeling much better overall. I did discuss the case with the night nurse at length. The night nurse stated the patient had a very good night. On physical exam, her bronchospasm continues to resolve. In addition, the alveolar-arterial gradient also continues to resolve. I will continue the current nebulizer treatments for now. Steroids were discontinued yesterday. Inputs by Renal, and GI are noted. Clinical status of the patient is certainly improved - compared to a few days ago. However, again, the future status/prognosis for this chronically ill patient does remain very guarded at best/poor. I will discuss the above with the attending physician. Joni Perkins MD [facility]
--- NOTE | 2018-01-14 08:39 | CP.PCM.PN ---
Subjective - Date & Time of Evaluation Date of Evaluation: 01/14/18 Time of Evaluation: 08:37 - Subjective Subjective: Tanner Armenta PGY2 IM Resident - GI Progress Note Objective - Vital Signs/Intake and Output Vital Signs (last 24 hours): Temp Pulse Resp BP Pulse Ox 98.4 F 84 22 141/75 96 01/14/18 00:00 01/14/18 05:56 01/14/18 00:00 01/14/18 00:00 01/14/18 00:00 Intake and Output: 01/14/18 01/14/18 06:59 18:59 Intake Total 1110 Balance 1110 - Medications Medications: Current Medications Acetaminophen (Tylenol 325mg Tab) 650 mg PO Q6 PRN PRN Reason: Pain, moderate (4-7) Last Admin: 01/11/18 06:35 Dose: 650 mg Acetaminophen (Tylenol 325mg Tab) 650 mg PO Q6H PRN PRN Reason: Pain, moderate (4-7) Last Admin: 01/12/18 11:42 Dose: 650 mg Albuterol/Ipratropium (Duoneb 3 Mg/0.5 Mg (3 Ml) Ud) 3 ml IH [id number] [facility]ANN Last Admin: 01/14/18 02:35 Dose: 3 ml Aspirin (Aspirin Chewable) 81 mg PO 0800 [facility] Last Admin: 01/13/18 10:39 Dose: 81 mg Calcium Acetate (Phoslo) 667 mg PO BIDWM R[facility]ANN Last Admin: 01/13/18 17:49 Dose: 667 mg Dextrose (Dextrose 50% Inj) 0 ml IV STAT PRN; Protocol PRN Reason: Hypoglycemia Protocol Gabapentin (Neurontin) 100 mg PO HS [facility]; Protocol Last Admin: 01/13/18 21:45 Dose: 100 mg Hydrocortisone (Anusol-Hc) 5 gm IN BID [facility] Last Admin: 01/13/18 17:51 Dose: 1 applic Dextrose (Dextrose 5% In Water 1000 Ml) 1,000 mls @ 0 mls/hr IV .Q0M PRN; Protocol PRN Reason: Hypoglycemia Protocol Insulin Human Lispro (Humalog Low) 0 units SC Q6 [facility]; Protocol Last Admin: 01/14/18 06:41 Dose: Not Given Levothyroxine Sodium (Synthroid) 50 mcg PO DAILY@0630 [facility] Last Admin: 01/14/18 05:36 Dose: 50 mcg Mupirocin (Bactroban Ointment) 1 gm TOP BID [facility] Last Admin: 01/13/18 17:50 Dose: 1 appl Ondansetron HCl (Zofran Inj) 4 mg IVP Q6H PRN PRN Reason: Nausea/Vomiting Quetiapine Fumarate (Seroquel) 12.5 mg PO HS R[facility]ANN; Protocol Last Admin: 01/13/18 21:45 Dose: 12.5 mg Vancomycin HCl (Vancocin 25 Mg/Ml (Oral Use)) 250 mg PO QID R[facility]ANN; Protocol Stop: 01/18/18 22:01 Last Admin: 01/13/18 21:49 Dose: 250 mg Vitamin A (Vitamin A & D Oint Ud Foilpak) 1 ea TOP BID PRN PRN Reason: Dry mouth Last Admin: 01/06/18 16:23 Dose: 1 ea - Labs Labs: 01/14/18 07:00 01/14/18 07:00 PT 14.6 SECONDS (9.4-12.5) H 01/09/18 02:45 INR 1.27 01/09/18 02:45 APTT 29.3 Seconds (25.1-36.5) 01/09/18 02:45 Assessment and Plan - Assessment and Plan (Free Text) Assessment: 82 year old female with past medical history of ischemic disease, HTN, HDL, ESRD on HD, DM2, diverticulosis, diverticulitis, CHF, hx of c. difficile with complaints of right sided abdominal pain and episode of diarrhea Plan: C. Diff Colitis History of sepsis secondary to acute descending colon diverticulitis and bilateral lobar healthcare-associated pneumonia Hx of C. Diff associated Diarrhea S/P severe sepsis with acute sigmoid diverticulitis and acute cholecystitis HTN DM CAD with chronic CHF ESRD on HD - Continue vanco 250mg QID by ID, recommend also adding IV flagyl if clinically worsens - Continue to monitor I/O - Diet as tolerated with assistance - Further recommendations per Dr. Theodore
[2018-01-14] MEDS: Vancomycin 25 MG/ML PO SCH ×3 (11:11→17:38)
--- NOTE | 2018-01-14 11:54 | CP.PCM.PN ---
Subjective - Date & Time of Evaluation Date of Evaluation: 01/14/18 Time of Evaluation: 11:50 - Subjective Subjective: Tanner Armenta PGY2 - IM Resident - GI Progress Note Patient seen this AM. No acute events reported overnight. Denies abdominal discomfort. Continues to report some pain with discomfort. Denies nausea, vomiting, fever, chills. 12 point ROS benign. Objective - Vital Signs/Intake and Output Vital Signs (last 24 hours): Temp Pulse Resp BP Pulse Ox 98.3 F 81 22 123/58 L 98 01/14/18 08:52 01/14/18 08:52 01/14/18 08:52 01/14/18 08:52 01/14/18 08:52 Intake and Output: 01/14/18 01/14/18 06:59 18:59 Intake Total 1110 Balance 1110 - Medications Medications: Current Medications Acetaminophen (Tylenol 325mg Tab) 650 mg PO Q6 PRN PRN Reason: Pain, moderate (4-7) Last Admin: 01/11/18 06:35 Dose: 650 mg Acetaminophen (Tylenol 325mg Tab) 650 mg PO Q6H PRN PRN Reason: Pain, moderate (4-7) Last Admin: 01/12/18 11:42 Dose: 650 mg Albuterol/Ipratropium (Duoneb 3 Mg/0.5 Mg (3 Ml) Ud) 3 ml IH [id number] [facility] Last Admin: 01/14/18 08:50 Dose: Not Given Aspirin (Aspirin Chewable) 81 mg PO 0800 [facility]ANN Last Admin: 01/13/18 10:39 Dose: 81 mg Calcium Acetate (Phoslo) 667 mg PO BIDWM R[facility]ANN Last Admin: 01/14/18 11:09 Dose: Not Given Dextrose (Dextrose 50% Inj) 0 ml IV STAT PRN; Protocol PRN Reason: Hypoglycemia Protocol Gabapentin (Neurontin) 100 mg PO HS R[facility]ANN; Protocol Last Admin: 01/13/18 21:45 Dose: 100 mg Hydrocortisone (Anusol-Hc) 5 gm ME BID R[facility]ANN Last Admin: 01/13/18 17:51 Dose: 1 applic Dextrose (Dextrose 5% In Water 1000 Ml) 1,000 mls @ 0 mls/hr IV .Q0M PRN; Protocol PRN Reason: Hypoglycemia Protocol Insulin Human Lispro (Humalog Low) 0 units SC Q6 R[facility]ANN; Protocol Last Admin: 01/14/18 06:41 Dose: Not Given Levothyroxine Sodium (Synthroid) 50 mcg PO DAILY@0630 [facility] Last Admin: 01/14/18 05:36 Dose: 50 mcg Mupirocin (Bactroban Ointment) 1 gm TOP BID [facility] Last Admin: 01/13/18 17:50 Dose: 1 appl Ondansetron HCl (Zofran Inj) 4 mg IVP Q6H PRN PRN Reason: Nausea/Vomiting Quetiapine Fumarate (Seroquel) 12.5 mg PO HS [facility]; Protocol Last Admin: 01/13/18 21:45 Dose: 12.5 mg Vancomycin HCl (Vancocin 25 Mg/Ml (Oral Use)) 250 mg PO QID [facility]; Protocol Stop: 01/18/18 22:01 Last Admin: 01/14/18 11:11 Dose: Not Given Vitamin A (Vitamin A & D Oint Ud Foilpak) 1 ea TOP BID PRN PRN Reason: Dry mouth Last Admin: 01/06/18 16:23 Dose: 1 ea - Labs Labs: 01/14/18 07:00 01/14/18 07:00 PT 14.6 SECONDS (9.4-12.5) H 01/09/18 02:45 INR 1.27 01/09/18 02:45 APTT 29.3 Seconds (25.1-36.5) 01/09/18 02:45 - Constitutional Appears: Non-toxic, No Acute Distress - Head Exam Head Exam: ATRAUMATIC, NORMAL INSPECTION, NORMOCEPHALIC - Eye Exam Eye Exam: EOMI, PERRL - ENT Exam ENT Exam: Mucous Membranes Moist - Respiratory Exam Respiratory Exam: Clear to Ausculation Bilateral, NORMAL BREATHING PATTERN - Cardiovascular Exam Cardiovascular Exam: REGULAR RHYTHM, +S1, +S2 - GI/Abdominal Exam GI & Abdominal Exam: Soft, Normal Bowel Sounds. absent: Guarding, Rigid, Tenderness - Extremities Exam Extremities Exam: absent: Calf Tenderness, Pedal Edema - Neurological Exam Neurological Exam: Alert, Awake, Oriented x3 - Psychiatric Exam Psychiatric exam: Normal Affect, Normal Mood - Skin Skin Exam: Dry, Warm Assessment and Plan - Assessment and Plan (Free Text) Assessment: 82 year old female with past medical history of ischemic disease, HTN, HDL, ESRD on HD, DM2, diverticulosis, diverticulitis, CHF, hx of c. difficile with complaints of right sided abdominal pain with episodic diarrhea that has since resolved Plan: C. Diff Colitis History of sepsis secondary to acute descending colon diverticulitis and bilateral lobe HCAP Hx of C. Diff associated Diarrhea HTN DM CAD with chronic CHF ESRD on HD - Rectal discomfort with bm continued - Continue PO vanco 250mg QID by ID - As per GI fellow consider adding IV flagyl if clinically worsens - continue to monitor I/O - diet as tolerated with assistance - Further recommendations per Dr. Theodore
[2018-01-14] MEDS: Hydrocortisone 2.5% Rectal Cream(30 gm) PR SCH ×2 (12:51→17:39)
[2018-01-14] MEDS: Mupirocin 2% Ointment 15 GM TUBE TOP SCH (12:52)
--- NOTE | 2018-01-14 13:49 | CP.PCM.PN ---
Subjective - Date & Time of Evaluation Date of Evaluation: 01/14/18 Time of Evaluation: 10:45 - Subjective Subjective: Diarrhea is improved, no abdominal pain currently, no fevers. Objective - Vital Signs/Intake and Output Vital Signs (last 24 hours): Temp Pulse Resp BP Pulse Ox 98.3 F 81 22 123/58 L 98 01/14/18 08:52 01/14/18 08:52 01/14/18 08:52 01/14/18 08:52 01/14/18 08:52 Intake and Output: 01/14/18 01/14/18 06:59 18:59 Intake Total 1110 Balance 1110 - Medications Medications: Current Medications Acetaminophen (Tylenol 325mg Tab) 650 mg PO Q6 PRN PRN Reason: Pain, moderate (4-7) Last Admin: 01/11/18 06:35 Dose: 650 mg Acetaminophen (Tylenol 325mg Tab) 650 mg PO Q6H PRN PRN Reason: Pain, moderate (4-7) Last Admin: 01/12/18 11:42 Dose: 650 mg Albuterol/Ipratropium (Duoneb 3 Mg/0.5 Mg (3 Ml) Ud) 3 ml IH [id number] [facility] Last Admin: 01/14/18 08:50 Dose: Not Given Aspirin (Aspirin Chewable) 81 mg PO 0800 [facility] Last Admin: 01/14/18 13:05 Dose: 81 mg Calcium Acetate (Phoslo) 667 mg PO BIDWM RUTHANN Last Admin: 01/14/18 11:09 Dose: Not Given Dextrose (Dextrose 50% Inj) 0 ml IV STAT PRN; Protocol PRN Reason: Hypoglycemia Protocol Gabapentin (Neurontin) 100 mg PO HS RUTHANN; Protocol Last Admin: 01/13/18 21:45 Dose: 100 mg Hydrocortisone (Anusol-Hc) 5 gm DC BID R[facility]ANN Last Admin: 01/14/18 12:51 Dose: Not Given Dextrose (Dextrose 5% In Water 1000 Ml) 1,000 mls @ 0 mls/hr IV .Q0M PRN; Protocol PRN Reason: Hypoglycemia Protocol Insulin Human Lispro (Humalog Low) 0 units SC Q6 R[facility]ANN; Protocol Last Admin: 01/14/18 12:52 Dose: Not Given Levothyroxine Sodium (Synthroid) 50 mcg PO DAILY@0630 [facility] Last Admin: 01/14/18 05:36 Dose: 50 mcg Mupirocin (Bactroban Ointment) 1 gm TOP BID [facility] Last Admin: 01/14/18 12:52 Dose: Not Given Ondansetron HCl (Zofran Inj) 4 mg IVP Q6H PRN PRN Reason: Nausea/Vomiting Quetiapine Fumarate (Seroquel) 12.5 mg PO HS [facility]; Protocol Last Admin: 01/13/18 21:45 Dose: 12.5 mg Vancomycin HCl (Vancocin 25 Mg/Ml (Oral Use)) 250 mg PO QID [facility]; Protocol Stop: 01/18/18 22:01 Last Admin: 01/14/18 13:06 Dose: 250 mg Vitamin A (Vitamin A & D Oint Ud Foilpak) 1 ea TOP BID PRN PRN Reason: Dry mouth Last Admin: 01/06/18 16:23 Dose: 1 ea - Labs Labs: 01/14/18 07:00 01/14/18 07:00 PT 14.6 SECONDS (9.4-12.5) H 01/09/18 02:45 INR 1.27 01/09/18 02:45 APTT 29.3 Seconds (25.1-36.5) 01/09/18 02:45 - Constitutional Appears: Cachectic, Chronically Ill - Head Exam Head Exam: NORMAL INSPECTION - Respiratory Exam Respiratory Exam: Decreased Breath Sounds - Cardiovascular Exam Cardiovascular Exam: +S1, +S2 - GI/Abdominal Exam GI & Abdominal Exam: Soft. absent: Tenderness Assessment and Plan - Assessment and Plan (Free Text) Plan: Assessment systemic inflammatory response syndrome with encephalopathy, R/O CO2 narcosis with fluid overload, S/P treatment for severe sepsis from HCAP c. diff. associated diarrhea, clinically improving history of left perineal abscess S/P I and D, grew MRSA and Klebsiella - now still with residual skin and skin structure infection, growing MSSA and E. coli history of sepsis due to E. 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 diff. associated diarrhea S/P severe sepsis with acute sigmoid diverticulitis and acute cholecystitis history of acute NSTEMI history of sepsis due to acute descending colon diverticulitis and bilateral lobe healthcare-associated pneumonia history of healthcare-associated pneumonia (right upper lobe, bilateral lower lobes) HTN DM CAD with chronic CHF ESRD on HD Plan completed 7 days of Merrem continue PO Vancomycin day 5 to complete 10 days of antibiotics - stool for C. diff. is positive (antigen only, not toxin) overall prognosis is poor patient is DNR and DNI discussed with Dr. Ascencio
--- NOTE | 2018-01-14 17:37 | CP.PCM.PN ---
Subjective - Date & Time of Evaluation Date of Evaluation: 01/14/18 Time of Evaluation: 17:32 - Subjective Subjective: Podiatry Progress note for Dr. Schaefer 82 yo female seen and evaluated for ulceration and DTI. Patient states that the ulceration on her right foot is causing her pain. Patient denies any other pedal complaints at this time. Patient continues to refuse wearing multipodus boots while in bed. Denies N/V/F/SOB/CP. Objective - Vital Signs/Intake and Output Vital Signs (last 24 hours): Temp Pulse Resp BP Pulse Ox 98.3 F 81 22 123/58 L 98 01/14/18 08:52 01/14/18 08:52 01/14/18 08:52 01/14/18 08:52 01/14/18 08:52 Intake and Output: 01/14/18 01/14/18 06:59 18:59 Intake Total 1110 Balance 1110 - Medications Medications: Current Medications Acetaminophen (Tylenol 325mg Tab) 650 mg PO Q6 PRN PRN Reason: Pain, moderate (4-7) Last Admin: 01/11/18 06:35 Dose: 650 mg Acetaminophen (Tylenol 325mg Tab) 650 mg PO Q6H PRN PRN Reason: Pain, moderate (4-7) Last Admin: 01/12/18 11:42 Dose: 650 mg Albuterol/Ipratropium (Duoneb 3 Mg/0.5 Mg (3 Ml) Ud) 3 ml IH [id number] Last Admin: 01/14/18 14:07 Dose: 3 ml Aspirin (Aspirin Chewable) 81 mg PO 0800 [facility] Last Admin: 01/14/18 13:05 Dose: 81 mg Calcium Acetate (Phoslo) 667 mg PO BIDWM [facility] Last Admin: 01/14/18 11:09 Dose: Not Given Dextrose (Dextrose 50% Inj) 0 ml IV STAT PRN; Protocol PRN Reason: Hypoglycemia Protocol Gabapentin (Neurontin) 100 mg PO HS [facility]; Protocol Last Admin: 01/13/18 21:45 Dose: 100 mg Hydrocortisone (Anusol-Hc) 5 gm OK BID [facility] Last Admin: 01/14/18 12:51 Dose: Not Given Dextrose (Dextrose 5% In Water 1000 Ml) 1,000 mls @ 0 mls/hr IV .Q0M PRN; Protocol PRN Reason: Hypoglycemia Protocol Insulin Human Lispro (Humalog Low) 0 units SC Q6 [facility]; Protocol Last Admin: 01/14/18 12:52 Dose: Not Given Levothyroxine Sodium (Synthroid) 50 mcg PO DAILY@0630 [facility] Last Admin: 01/14/18 05:36 Dose: 50 mcg Mupirocin (Bactroban Ointment) 1 gm TOP BID [facility] Last Admin: 01/14/18 12:52 Dose: Not Given Ondansetron HCl (Zofran Inj) 4 mg IVP Q6H PRN PRN Reason: Nausea/Vomiting Quetiapine Fumarate (Seroquel) 12.5 mg PO HS [facility]; Protocol Last Admin: 01/13/18 21:45 Dose: 12.5 mg Vancomycin HCl (Vancocin 25 Mg/Ml (Oral Use)) 250 mg PO QID [facility]; Protocol Stop: 01/18/18 22:01 Last Admin: 01/14/18 13:06 Dose: 250 mg Vitamin A (Vitamin A & D Oint Ud Foilpak) 1 ea TOP BID PRN PRN Reason: Dry mouth Last Admin: 01/06/18 16:23 Dose: 1 ea - Labs Labs: 01/14/18 07:00 01/14/18 07:00 PT 14.6 SECONDS (9.4-12.5) H 01/09/18 02:45 INR 1.27 01/09/18 02:45 APTT 29.3 Seconds (25.1-36.5) 01/09/18 02:45 - Constitutional Appears: Well, Non-toxic, No Acute Distress - Head Exam Head Exam: ATRAUMATIC, NORMOCEPHALIC - Extremities Exam Additional comments: Bilateral extremity focused exam: Vasc: DP/PT 1/4, Cap refill < 3 sec in all digits, temp gradient warm to cool from proximal to distal. No edema noted to bilateral lower extremities Neuro: Gross sensation intact to bilateral lower extremities Ortho: Tenderness to palpation of the necrotic 5th ulceration and anterior ankle ulceration. Derm: A stable necrotic ulcer measures [id number] noted in the lateral aspect of the right 5th MPJ. No drainage, No malodor. No probing to bone, No undermining, no signs of active infection. Friable skin noted to medial aspect of right hallux. A necrotic ulceration noted in the anterior aspect of the right ankle. Friable skin to bilateral heels. - Neurological Exam Neurological Exam: Alert, Awake - Psychiatric Exam Psychiatric exam: Normal Affect, Normal Mood Assessment and Plan - Assessment and Plan (Free Text) Assessment: 82 y/o F patient seen and evaluated at the bedside for foot ulcers and heel deep tissue injury. Plan: Patient seen and evaluated at the bedside with Dr. Carson Chart, labs and vitals reviewed; Afebrile, absent leukocytosis Right anterior ankle, 5th digit, and both heels covered with optifoam Patient instructed to continue to wear multipodus boots in bed as much as possible Podiatry will continue to follow while in house.
[2018-01-14 18:23] VITALS: BP 160/68; PULSE 63; RESP 20; TEMP 99.1; O2SAT 93
--- NOTE | 2018-01-14 23:29 | CP.PCM.PN ---
Subjective - Date & Time of Evaluation Date of Evaluation: 01/14/18 Time of Evaluation: 18:10 - Subjective Subjective: Feels better No abdominal pain now Says she had a good bowl movement yesterday Objective - Vital Signs/Intake and Output Vital Signs (last 24 hours): Temp Pulse Resp BP Pulse Ox 99.1 F 63 20 160/68 H 93 L 01/14/18 18:00 01/14/18 18:00 01/14/18 18:00 01/14/18 18:00 01/14/18 18:00 - Labs Labs: 01/14/18 07:00 01/14/18 07:00 PT 14.6 SECONDS (9.4-12.5) H 01/09/18 02:45 INR 1.27 01/09/18 02:45 APTT 29.3 Seconds (25.1-36.5) 01/09/18 02:45 - Constitutional Appears: No Acute Distress, Older Than Stated Age - Head Exam Head Exam: absent: ATRAUMATIC - Eye Exam Eye Exam: PERRL. absent: EOMI - ENT Exam ENT Exam: Mucous Membranes Moist, Normal Oropharynx - Neck Exam Neck Exam: Full ROM. absent: Lymphadenopathy - Respiratory Exam Respiratory Exam: NORMAL BREATHING PATTERN - Cardiovascular Exam Cardiovascular Exam: +S1, +S2. absent: JVD - GI/Abdominal Exam GI & Abdominal Exam: Soft. absent: Tenderness - Neurological Exam Neurological Exam: Awake, Oriented x3 Assessment and Plan - Assessment and Plan (Free Text) Assessment: Reoccurent C.diff History of diverticular colitis History of cholecystitis N stage ESRN on HD Complete 14 days course with kalpesh
--- NOTE | 2018-01-14 23:59 | PN ---
DATE: 01/14/2018 SUBJECTIVE: The patient is seen in the dialysis unit. She is awake. She is alert. She reports she had a bad night. She complains of pain. She complains of belly pain. She denies any chest pain. PHYSICAL EXAMINATION: GENERAL: Elderly lady lying in bed in the dialysis unit. VITAL SIGNS: Blood pressure 123/58, heart rate 41, respiratory rate 22, temperature 98.3. HEENT: Normocephalic, atraumatic, positive pallor. NECK: Supple, no JVD. LUNGS: Bilateral equal entry, bilateral equal expansion. CARDIAC: S1 and S2, regular rate and rhythm, no murmur, no rub. ABDOMEN: Soft, nondistended, nontender, bowel sounds present. EXTREMITIES: No lower extremity edema. INTAKE AND OUTPUT: Not charted. LABORATORY DATA: WBC 10, hemoglobin 9.5, hematocrit 30.6, platelets 109. Sodium 128, potassium 4.7, chloride 90, CO2 31, BUN 44, creatinine 3.9, glucose 114, calcium 7.7, albumin 2.6. MEDICATIONS: List reviewed. ASSESSMENT: 1. End stage renal disease. 2. Congestive heart failure, cardiomyopathy, coronary artery disease. 3. Status post sepsis. 4. Clostridium difficile colitis? 5. Status post altered mental status. PLAN: 1. Stable dialysis. 2. Continue antibiotics as per ID recommendations. 3. No objection to discharge. Barbi Linares MD
--- NOTE | 2018-01-26 17:38 | PQF ---
PROVIDER RESPONSE TEXT: Combined REVIEWER QUERY TEXT: CHF Acuity and Type Congestive Heart Failure is documented in the Medical Record. Please document the type and acuity (in cludes probable or suspected) Such as: Type: -- Systolic -- Diastolic -- Combined -- Other, please specify Acuity: -- Acute -- Chronic -- Acute on chronic -- Other, please specify Also please document the underlying cause of the CHF (includes probable or suspected) The patient's Clinical Indicators include: Medical record notes patient has decompensated CHF. Please specify type (systolic or diastolic) and a cuity (acute/chronic/acute on chronic) for this diagnosis. Query created by: Gisselle Bean on 01/07/2018 1:54 PM Electronically signed by: Shavonne Ascencio MD 01/26/2018 5:36 PM
--- NOTE | 2018-01-26 17:38 | PQF ---
PROVIDER RESPONSE TEXT: Acute REVIEWER QUERY TEXT: Respiratory Failure Acuity and Type Respiratory Failure is documented in the Medical Record. Please specify the type and acuity (includes suspected or probable) Such as: -- Acute respiratory failure - With hypoxia - With hypercapnia -- Chronic respiratory failure - With hypoxia - With hypercapnia -- Acute on chronic respiratory failure - With hypoxia - With hypercapnia -- Other, please specify The patient's Clinical Indicators include: Please specify type and acuity. Query created by: Gisselle Bean on 01/07/2018 1:55 PM Electronically signed by: Shavonne Ascencio MD 01/26/2018 5:36 PM
--- NOTE | 2018-01-27 17:08 | DS ---
SUMMARY: An 82-year-old female, resident of [facility] with chronic renal failure, on dialysis three times a week, admitted with abdominal pain, found to have C. diff colitis. She was also found to have some vascular insufficiency, followed by Podiatry. She was followed by Renal for her renal disease and followed by GI for her C. diff infection. She was followed by pulmonary for COPD. She was also seen by Cardiology for underlying history of ischemic heart disease, atherosclerotic heart disease, carotid disease, bradyarrhythmias, and paroxysmal atrial fibrillation. DISPOSITION: She was subsequently discharged back to [facility] to complete antibiotic therapy for her C. difficile colitis and will be followed as an outpatient. Shavonne Ascencio MD
== END 2018-01-14 20:11 | DRG 871 ==
LOC: ED 10:29 → ERH 12:56 → ICU 15:04 → 3RNO 01-07 12:52
PROVIDERS: ADMIT Internal Medicine; ATTEND Internal Medicine
PROC: 5A09357 Assistance with Respiratory Ventilation, Less than 24 Consecutive Hours, Continuous Positive Airway Pressure (ICD-10-PCS; principal; 2018-01-04)
PROC: 5A1D70Z Performance of Urinary Filtration, Intermittent, Less than 6 Hours Per Day (ICD-10-PCS; 2018-01-04)
PROC: 5A09457 Assistance with Respiratory Ventilation, 24-96 Consecutive Hours, Continuous Positive Airway Pressure (ICD-10-PCS; 2018-01-07)
PROC: 5A1D70Z Performance of Urinary Filtration, Intermittent, Less than 6 Hours Per Day (ICD-10-PCS; 2018-01-08)
PROC: 5A1D70Z Performance of Urinary Filtration, Intermittent, Less than 6 Hours Per Day (ICD-10-PCS; 2018-01-09)
DX: A41.9 Sepsis, unspecified organism (principal); N18.6 End stage renal disease; J18.9 Pneumonia, unspecified organism; J96.00 Acute respiratory failure, unspecified whether with hypoxia or hypercapnia; G93.40 Encephalopathy, unspecified; J44.1 Chronic obstructive pulmonary disease with (acute) exacerbation; I13.2 Hypertensive heart and chronic kidney disease with heart failure and with stage 5 chronic kidney disease, or end stage renal disease; I50.40 Unspecified combined systolic (congestive) and diastolic (congestive) heart failure; E87.4 Mixed disorder of acid-base balance; N39.0 Urinary tract infection, site not specified; A04.71 Enterocolitis due to Clostridium difficile, recurrent; I42.9 Cardiomyopathy, unspecified; R64 Cachexia; F05 Delirium due to known physiological condition; K57.92 Diverticulitis of intestine, part unspecified, without perforation or abscess without bleeding; L97.429 Non-pressure chronic ulcer of left heel and midfoot with unspecified severity; I25.10 Atherosclerotic heart disease of native coronary artery without angina pectoris; R65.20 Severe sepsis without septic shock; I48.0 Paroxysmal atrial fibrillation; E11.22 Type 2 diabetes mellitus with diabetic chronic kidney disease; E11.42 Type 2 diabetes mellitus with diabetic polyneuropathy; E11.51 Type 2 diabetes mellitus with diabetic peripheral angiopathy without gangrene; E03.9 Hypothyroidism, unspecified; E11.621 Type 2 diabetes mellitus with foot ulcer; L97.529 Non-pressure chronic ulcer of other part of left foot with unspecified severity; L97.519 Non-pressure chronic ulcer of other part of right foot with unspecified severity; D63.1 Anemia in chronic kidney disease; E87.5 Hyperkalemia; E87.6 Hypokalemia; Z66 Do not resuscitate; E78.00 Pure hypercholesterolemia, unspecified; K21.9 Gastro-esophageal reflux disease without esophagitis; I34.0 Nonrheumatic mitral (valve) insufficiency; M06.9 Rheumatoid arthritis, unspecified; E83.39 Other disorders of phosphorus metabolism; F03.90 Unspecified dementia, unspecified severity, without behavioral disturbance, psychotic disturbance, mood disturbance, and anxiety; Z96.642 Presence of left artificial hip joint; Z99.2 Dependence on renal dialysis; I25.2 Old myocardial infarction; Z79.4 Long term (current) use of insulin; Z95.5 Presence of coronary angioplasty implant and graft; Z79.82 Long term (current) use of aspirin; Z78.1 Physical restraint status

== ENCOUNTER 2018-01-15 20:21 | Inpatient (IN) | payer MEDICARE, MEDICAID ==
--- NOTE | 2018-01-15 20:48 | ED PDOC ---
Arrival/HPI - General Chief Complaint: GI Problem Time Seen by Provider: 01/15/18 20:25 Historian: Patient, [facility] - History of Present Illness Narrative History of Present Illness (Text): 01/15/18 20:47 Margo Uriarte is an 82 year old female, whose past medical history includes ESRD on hemodialysis 4 times a week, pleural effusion, hypothyroidism, diabetes, diverticulitis, hyperlipidemia, hypertension, DE, CHF, and CAD, who presents to the ED sent from retirement for rectal bleeding. As per retirement notes, patient has bright red bloody bowel movement earlier today. Patient was recently transferred to retirement yesterday from hospital. Patient denies any abdominal pain, nausea, vomiting, chest pain, back pain, dizziness, or any other complaints. PMD: Dr. Ascencio Symptom Onset: Gradual Symptom Course: Unchanged Activities at Onset: Light Context: Home (skilled nursing) Past Medical History - Provider Review Nursing Documentation Reviewed: Yes - Past History Past History: No Previous - Infectious Disease Hx of Infectious Diseases: None - Tetanus Immunization Tetanus Immunization: Unknown - Reproductive Menopause: Yes - Cardiac Hx Cardiac Disorders: Yes (carotid disease) Hx Angina: Yes Hx Congestive Heart Failure: Yes Hx Hypertension: Yes Hx Peripheral Vascular Disease: Yes Other/Comment: numbness tingling left leg left foot - Pulmonary Hx Respiratory Disorders: Yes Hx Chronic Obstructive Pulmonary Disease (COPD): Yes Hx Pneumonia: Yes - Neurological Hx Neurological Disorder: Yes (numbnes/tingling left leg and ft) Hx Dizziness: Yes - HEENT Hx HEENT Disorder: Yes Hx Cataracts: Yes (b/l sx) - Renal Hx Renal Disorder: Yes Hx Dialysis: Yes ([facility] m/w/f/[facility]) Date of Last Dialysis Treatment: 01/04/18 Other/Comment: Left upper arm shunt - Endocrine/Metabolic Hx Endocrine Disorders: Yes Hx Diabetes Mellitus Type 2: Yes Hx Hypothyroidism: Yes - Hematological/Oncological Hx Blood Disorders: Yes (sepsis) Hx Anemia: Yes - Integumentary Hx Dermatological Disorder: No Other/Comment: L arm shunt has dsg, excellent bruit at site, 1.5cm x 1.5cm scab to anterior right ankle and 1.5cm x 1.5cm scab to outer right foot, dry skin to both feet, dry thin skin with multiple skin discoloratins both arms, multiple age spots and moles to face, thick hard toenails, multiple skin discolorations ble and dry skin - Musculoskeletal/Rheumatological Hx Musculoskeletal Disorders: Yes (rheumatoid arthritis) Hx Arthritis: Yes Hx Back Pain: Yes Hx Falls: Yes (past) Hx Fractures: Yes (left hip) Hx Unsteady Gait: Yes (cane) - Gastrointestinal Hx Gastrointestinal Disorders: Yes (c diff 05/14/17) Hx Diverticulitis: Yes (& diverticulosis) Hx Gastroesophageal Reflux: Yes Other/Comment: poor appetite, abd pain, nausea, vomiting, gi bleed - Genitourinary/Gynecological Hx Genitourinary Disorders: Yes (VRE IN THE URINE.OLIGURIA.ESRD ON HD) - Psychiatric Hx Psychophysiologic Disorder: Yes Hx Anxiety: Yes Hx Depression: Yes Hx Substance Use: No - Surgical History Hx Cardiac Catheterization: Yes Hx Coronary Stent: Yes Other/Comment: left hip replacement, b/l cataract sxleft arm av shunt - Anesthesia Hx Anesthesia: Yes Hx Anesthesia Reactions: No Hx Malignant Hyperthermia: No - Suicidal Assessment Feels Threatened In Home Enviroment: No Family/Social History - Physician Review Nursing Documentation Reviewed: Yes Family/Social History: Unknown Family HX Smoking Status: Never Smoked Hx Alcohol Use: No Hx Substance Use: No Hx Substance Use Treatment: No Allergies/Home Meds Allergies/Adverse Reactions: Allergies ceftriaxone Allergy (Verified 01/04/18 10:39) ITCHING Home Medications: Home Meds Medication Instructions Recorded Confirmed Baclofen [Lioresal] 10 mg PO Q12 01/04/18 01/04/18 Review of Systems - Physician Review All systems were reviewed & negative as marked: Yes - Review of Systems Constitutional: Normal. absent: Fevers Eyes: Normal ENT: Normal Respiratory: Normal. absent: SOB, Cough Cardiovascular: Normal. absent: Chest Pain Gastrointestinal: Hematochezia. absent: Abdominal Pain, Vomiting Genitourinary Female: Normal Musculoskeletal: Normal. absent: Back Pain Skin: Normal Neurological: Normal. absent: Headache, Dizziness Endocrine: Normal Hemo/Lymphatic: Normal Psychiatric: Normal Physical Exam Vital Signs Reviewed: Yes Vital Signs Temp Pulse Resp BP Pulse Ox 01/15/18 20:22 98.6 F 85 20 141/59 L 95 Temperature: Afebrile Blood Pressure: Normal Pulse: Regular Respiratory Rate: Normal Appearance: Positive for: Well-Appearing, Non-Toxic, Comfortable Pain Distress: None Mental Status: Positive for: Alert and Oriented X 3 - Systems Exam Head: Present: Atraumatic, Normocephalic Pupils: Present: PERRL Extroacular Muscles: Present: EOMI Conjunctiva: Present: Normal Mouth: Present: Moist Mucous Membranes Neck: Present: Normal Range of Motion Respiratory/Chest: Present: Clear to Auscultation, Good Air Exchange. No: Respiratory Distress, Accessory Muscle Use Cardiovascular: Present: Regular Rate and Rhythm, Normal S1, S2. No: Murmurs Abdomen: No: Tenderness, Distention, Peritoneal Signs Rectal: Present: Other (Bright red blood around rectum, no active bleeding) Back: Present: Normal Inspection Upper Extremity: Present: Normal Inspection. No: Cyanosis, Edema Lower Extremity: Present: Normal Inspection. No: Edema Neurological: Present: GCS=15, CN II-XII Intact, Speech Normal Skin: Present: Warm, Dry, Normal Color. No: Rashes Psychiatric: Present: Alert, Oriented x 3, Normal Insight, Normal Concentration Medical Decision Making ED Course and Treatment: 01/15/18 20:47 Impression: 82 year old female sent from retirement for rectal bleeding today. Plan: -- EKG -- CXR -- Labs, blood type and screen, cardiac enzymes -- IV fluids -- Protonix --Reassess Prior Visits: Notes and results from previous visits were reviewed. On 01/04/2018, pt was seen in the ED for AMS, dyspnea, lethargy, and unresponsiveness. Pt was admitted to the hospital for further evaluation. Progress Notes: Reviewed EKG, a fib at 52 bpm. Incomplete LBBB. Non-specific ST/T wave changes. 01/15/18 22:07 CXR reviewed, shows bilateral pleural effusions which are chronic. 01/16/18 00:[address] Ascencio, who is aware and agrees with plan. Accepts pt in to his service. Pt will go to Telemetry observation for lower GI bleed. Requests Dr. Linares and Dr. Theodore - Lab Interpretations I have reviewed the lab results: Yes - RAD Interpretation Flexo Press Operator: ED Physician - EKG Interpretation Interpreted by ED Physician: Yes Type: 12 lead EKG - Scribe Statement The provider has reviewed the documentation as recorded by the Scribyoan Ortiz All medical record entries made by the Scribe were at my direction and per sonally dictated by me. I have reviewed the chart and agree that the record accurately reflects my personal performance of the history, physical exam, medical decision making, and the department course for this patient. I have also personally directed, reviewed, and agree with the discharge instructions and disposition. Disposition/Present on Arrival - Present on Arrival Any Indicators Present on Arrival: No History of DVT/PE: No History of Uncontrolled Diabetes: No Urinary Catheter: No History of Decub. Ulcer: No History Surgical Site Infection Following: None - Disposition Have Diagnosis and Disposition been Completed?: Yes Diagnosis: Lower GI bleed Disposition: HOSPITALIZED Disposition Time: 00:55 Condition: STABLE Referrals: Chaim Huston, [Primary Care Provider] - Follow up with primary Forms: [employer] (Fijian)
[2018-01-15] MEDS ORDERED: Sodium Chloride 0.9% 1,000 ML IV SCH (21:00)
[2018-01-15 21:40] LABS: HEMOGLOBIN 9.5 g/dL (12.0-16.0); MEAN CELL VOLUME 94.5 fl (80.0-105.0); MEAN CORPUSCULAR HEMOGLOBIN 29.2 pg (25.0-35.0); MEAN CORPUSCULAR HGB CONC 30.9 g/dl (31.0-37.0); MEAN PLATELET VOLUME 9.4 fl (7.0-11.0); RBC 3.25 10^6/uL (3.5-6.1); RED CELL DISTRIBUTION WIDTH 17.5 % (11.5-14.5); WHITE BLOOD COUNT 6.9 10^3/ul (4.5-11.0)
[2018-01-15 21:50] LABS: INR 1.13; PARTIAL THROMBOPLASTIN TIME 28.4 Seconds (25.1-36.5); PROTHROMBIN TIME 12.9 SECONDS (9.4-12.5)
[2018-01-15 21:59] LABS: ALB/GLOB RATIO 0.7 (1.1-1.8); ALBUMIN 2.9 g/dL (3.0-4.8); CALCIUM 8.2 mg/dL (8.4-10.5)
[2018-01-15 22:10] LABS: TROPONIN I 0.05 ng/mL
[2018-01-16] MEDS ORDERED: Sodium Chloride 0.9% 1,000 ML IV STA (00:52)
[2018-01-16 04:56] VITALS: BMI 22.2
[2018-01-16 07:16] LABS: HEMOGLOBIN 8.6 g/dL (12.0-16.0); MEAN CELL VOLUME 93.6 fl (80.0-105.0); MEAN CORPUSCULAR HEMOGLOBIN 28.8 pg (25.0-35.0); MEAN CORPUSCULAR HGB CONC 30.7 g/dl (31.0-37.0); MEAN PLATELET VOLUME 9.1 fl (7.0-11.0); RBC 2.99 10^6/uL (3.5-6.1); RED CELL DISTRIBUTION WIDTH 17.4 % (11.5-14.5); WHITE BLOOD COUNT 6.2 10^3/ul (4.5-11.0)
--- NOTE | 2018-01-16 10:11 | RAD ---
Date of service: 01/15/2018 HISTORY: MEDICAL CLEARANCE COMPARISON: 01/09/2018 FINDINGS: LUNGS: Bilateral infiltrates and moderate size effusion showing some improvement PLEURA: As above CARDIOVASCULAR: Moderate cardiomegaly OSSEOUS STRUCTURES: No significant abnormalities. VISUALIZED UPPER ABDOMEN: Normal. OTHER FINDINGS: None. IMPRESSION: Bilateral infiltrates and moderate size effusion showing some improvement
[2018-01-16 12:07] LABS: VENOUS BLOOD GAS BASE EXCESS 5.3 mmol/L (0.0-2.0); VENOUS BLOOD GAS PO2 69 mm/Hg (30-55); VENOUS BLOOD PH 7.38 (7.32-7.43)
--- NOTE | 2018-01-16 14:13 | CON ---
DATE: 01/16/2018 HISTORY OF PRESENT ILLNESS: Patient is seen and examined at bedside. This is an 82-year-old lady with history of severe left ventricular systolic dysfunction and end-stage renal disease, on hemodialysis who presented to [facility] after was found to have a rectal bleed from her half-way. The patient remained hemodynamically relatively stable in [facility] for diarrhea; however, was found to be slightly hypoxemic with oxygen saturation 89% on 2 liters nasal cannula. ICU consult was called for further management and monitoring. No nausea, no vomiting, no constipation. No chest pain, no shortness of breath. No abdominal pain as well. PAST MEDICAL HISTORY: Severe left ventricular systolic dysfunction and end-stage renal disease, on hemodialysis. ALLERGIES: CEFTRIAXONE. SOCIAL HISTORY: No alcohol, illicit drug abuse. No tobacco smoking. HOME MEDICATIONS: Ecotrin, PhosLo, Procrit, Pepcid, Neurontin, Synthroid, Protonix, Crestor, Nephro-Emiliano, vitamin A and D topical, baclofen. REVIEW OF SYSTEMS: The review of 12-organ system other than mentioned in history of present illness is negative. FAMILY HISTORY: Noncontributory. PHYSICAL EXAMINATION: VITAL SIGNS: Blood pressure 140/60, oxygen saturation 89% on 2 liters nasal cannula, heart rate 72, temperature 98.6. ENT: Head and neck atraumatic. LUNGS: Decreased breath sounds bilaterally. A few crackles bilaterally. HEART: Regular rate and rhythm. S1, S2 distant. ABDOMEN: Soft, nontender, nondistended. MUSCULOSKELETAL: No C/C/E. NEUROLOGICAL: The patient moves all extremities spontaneously. SKIN: Moist. PSYCHIATRIC: The patient is alert, awake and oriented x3. DATA: Labs: WBC 6.2, hemoglobin 8.6 down from 9.5, platelet count 158. Sodium 133, potassium 3.8, chloride 93, carbon dioxide 31, BUN 31, creatinine 3.1, glucose 142, AST 34, ALT 15, alkaline phosphatase 105. CPK 22. Troponin 0.05. INR 1.13. PTT 28.4. CURRENT MEDICATIONS: Normal saline at 40 mL/hour, Protonix 40 mg IV daily. DATA: Chest x-ray showed bilateral large pleural effusion. ASSESSMENT: This is an 82-year-old lady who presented with lower gastrointestinal bleed (BRBPR, the patient is known to have diverticulosis and hemorrhoids) in the setting of the maintaining hemodynamic stability. First troponin was negative and lactic acid level is pending. The patient does NOT appear to have end-organ dysfunction related to hemorrhage. Her renal function is impossible to assess as she has end-stage renal disease and is on dialysis. However, she is mentating well. She does not have any chest pain or signs of myocardial ischemia. Her skin is warm. At present time, we will proceed with GI bleeding scan, GI consult. Place two large bore peripheral IV, NPO. Mechanical DVT prophylaxis, GI prophylaxis. The patient will be transferred to ICU for further management and monitoring of respiratory status as she requires oxygen supplementation to maintain normoxemia. She does have bilateral large pleural effusion in the setting of end-stage renal disease as well as severe left ventricular systolic dysfunction, that will be looked into further. We will hold aspirin at present time. After-load reduction will be provided with Imdur and hydralazine if hemodynamics continue to be stable and cleared for PO by GI. Cardiology service consult will be beneficial as well. We will try to maintain euvolemia with dialysis. Addendum: trop is neg, lactic acid level is 0.8. GI bleeding scan is pending, HD is in progress ccm time 40 min Joe Seo MD MTDD
--- NOTE | 2018-01-16 15:26 | CP.PCM.CON ---
<Micah Armenta - Last Filed: 01/16/18 15:32> History of Present Illness - History of Present Illness History of Present Illness: Tanner Armenta PGY2 Internal Medicine Resident - Consult Note for GI service Dr. Theodore Consult reason: GI Bleed HPI: 82 year old female with past medical history of ischemic disease, HTN, HDL, ESRD on HD, DM2, hx of diverticulosis, hx of diverticulitis and systolic CHF secondary to left ventricular dysfunction who is admitted from [facility] with report of lower GI bleed. Patient reports having bowel movements with bright red blood per rectum. She denies chest pain, shortness of breath, significant abdominal discomfort, nausea, vomiting. She does report loose stool and reports of blood in her diapers. Patient evaluated in [facility] and found to have stable hemoglobin and hematocrit from previous discharge 2 days prior. Associated symptoms include weakness and fatigue for which patient reports nothing new. PMH: ischemic disease, HTN, HDL, ESRD on HD, DM2, hx of diverticulosis, hx of diverticulitis and CHF PSH: Denies PSH: Denies tobacco, ETOH, ID ALL: Ceftriaxone Meds: MAR Reviewed PMD: Dr. Shavonne ariza Review of Systems - Review of Systems All systems: reviewed and no additional remarkable complaints except Review of Systems: as mentioned in HPI Past Patient History - Infectious Disease Hx of Infectious Diseases: None - Tetanus Immunizations Tetanus Immunization: Unknown - Past Medical History & Family History Past Medical History?: Yes - Past Social History Smoking Status: Unknown If Ever Smoked - CARDIAC Hx Cardiac Disorders: Yes (carotid disease) Hx Angina: Yes Hx Congestive Heart Failure: Yes Hx Hypertension: Yes Hx Peripheral Vascular Disease: Yes Other/Comment: numbness tingling left leg left foot - PULMONARY Hx Respiratory Disorders: Yes Hx Chronic Obstructive Pulmonary Disease (COPD): Yes Hx Pneumonia: Yes - NEUROLOGICAL Hx Neurological Disorder: Yes (numbnes/tingling left leg and ft) Hx Dizziness: Yes - HEENT Hx HEENT Problems: Yes Hx Cataracts: Yes (b/l sx) - RENAL Hx Chronic Kidney Disease: Yes Hx Dialysis: Yes ([facility] m/w/f/sat) Other/Comment: Left upper arm shunt - ENDOCRINE/METABOLIC Hx Endocrine Disorders: Yes Hx Diabetes Mellitus Type 2: Yes Hx Hypothyroidism: Yes - HEMATOLOGICAL/ONCOLOGICAL Hx Blood Disorders: Yes (sepsis) Hx Anemia: Yes - INTEGUMENTARY Hx Dermatological Problems: No Other/Comment: L arm shunt has dsg, excellent bruit at site, 1.5cm x 1.5cm scab to anterior right ankle and 1.5cm x 1.5cm scab to outer right foot, dry skin to both feet, dry thin skin with multiple skin discoloratins both arms, multiple age spots and moles to face, thick hard toenails, multiple skin discolorations ble and dry skin covered with optifoam - MUSCULOSKELETAL/RHEUMATOLOGICAL Hx Musculoskeletal Disorders: Yes (rheumatoid arthritis) Hx Arthritis: Yes Hx Back Pain: Yes Hx Falls: Yes (past) Hx Fractures: Yes (left hip) Hx Unsteady Gait: Yes (cane) - GASTROINTESTINAL Hx Gastrointestinal Disorders: Yes (c diff 01/10/18) Hx Diverticulitis: Yes (& diverticulosis) Hx Gastroesophageal Reflux: Yes Other/Comment: poor appetite, abd pain, nausea, vomiting, gi bleed - GENITOURINARY/GYNECOLOGICAL Hx Genitourinary Disorders: Yes (VRE IN THE URINE.OLIGURIA.ESRD ON HD) - PSYCHIATRIC Hx Psychophysiologic Disorder: Yes Hx Anxiety: Yes Hx Depression: Yes Hx Substance Use: No - SURGICAL HISTORY Hx Cardiac Catheterization: Yes Hx Coronary Stent: Yes Other/Comment: left hip replacement, b/l cataract sxleft arm av shunt - ANESTHESIA Hx Anesthesia: Yes Hx Anesthesia Reactions: No Hx Malignant Hyperthermia: No Meds Allergies/Adverse Reactions: Allergies Allergy/AdvReac Type Severity Reaction Status Date / Time ceftriaxone Allergy ITCHING Verified 01/04/18 10:39 - Medications Medications: Current Medications Sodium Chloride (Sodium Chloride 0.9%) 1,000 mls @ 40 mls/hr IV .Q24H STA Stop: 01/17/18 00:51 Last Admin: 01/16/18 01:03 Dose: 40 mls/hr Meropenem 250 mg/ Sodium (Chloride) 100 mls @ 100 mls/hr IVPB Q12H [facility]; Protocol Stop: 01/25/18 14:01 Pantoprazole Sodium (Protonix Inj) 40 mg IVP DAILY [facility] Last Admin: 01/16/18 11:07 Dose: 40 mg Vancomycin HCl (Vancocin 25 Mg/Ml (Oral Use)) 250 mg PO QID [facility]; Protocol Stop: 01/25/18 18:01 Physical Exam - Constitutional Appears: Non-toxic, No Acute Distress, Older Than Stated Age, Chronically Ill - Head Exam Head Exam: ATRAUMATIC, NORMOCEPHALIC - Eye Exam Eye Exam: EOMI, PERRL - ENT Exam ENT Exam: Mucous Membranes Dry - Respiratory Exam Respiratory Exam: Clear to Auscultation Bilateral, NORMAL BREATHING PATTERN - Cardiovascular Exam Cardiovascular Exam: REGULAR RHYTHM, +S1, +S2 - GI/Abdominal Exam GI & Abdominal Exam: Normal Bowel Sounds, Soft, Tenderness (mild suprapubic tenderness ) - Rectal Exam Rectal Exam: Bloody Stool Additional comments: no masses, lesions, fissures, abscess appreciated Bright red blood per rectum - Extremities Exam Extremities exam: Negative for: calf tenderness - Neurological Exam Neurological exam: Alert, Oriented x3 - Psychiatric Exam Psychiatric exam: Normal Affect, Normal Mood - Skin Skin Exam: Dry, Intact Results - Vital Signs Recent Vital Signs: Last Vital Signs Temp 97.8 F 01/16/18 12:21 Pulse 60 01/16/18 12:21 Resp 22 01/16/18 12:21 BP 159/60 H 01/16/18 12:21 Pulse Ox 99 01/16/18 12:21 - Labs Result Diagrams: 01/16/18 06:30 01/15/18 21:20 Labs: Laboratory Results - last 24 hr 01/15/18 01/15/18 01/15/18 21:20 21:20 21:20 WBC 6.9 D RBC 3.25 L Hgb 9.5 L Hct 30.7 L MCV 94.5 MCH 29.2 MCHC 30.9 L RDW 17.5 H Plt Count 151 MPV 9.4 PT 12.9 H INR 1.13 APTT 28.4 pO2 VBG pH VBG pCO2 VBG HCO3 VBG Total CO2 VBG O2 Sat (Calc) VBG Base Excess VBG Potassium Glucose Lactate FiO2 Sodium 133 Potassium 3.8 Chloride 93 L Carbon Dioxide 31 Anion Gap 13 BUN 31 H Creatinine 3.1 H Est GFR ( Amer) 17 Est GFR (Non-Af Amer) 14 Random Glucose 142 H Calcium 8.2 L Total Bilirubin 0.6 AST 34 ALT 15 Alkaline Phosphatase 105 Lactate Dehydrogenase 320 L Total Creatine Kinase 22 L Troponin I 0.05 D Total Protein 6.8 Albumin 2.9 L Globulin 3.9 Albumin/Globulin Ratio 0.7 L Venous Blood Potassium Blood Type Antibody Screen Antibody Identification BBK History Checked 01/15/18 01/16/18 01/16/18 21:20 06:30 11:24 WBC 6.2 RBC 2.99 L Hgb 8.6 L Hct 28.0 L MCV 93.6 MCH 28.8 MCHC 30.7 L RDW 17.4 H Plt Count 158 MPV 9.1 PT INR APTT pO2 VBG pH VBG pCO2 VBG HCO3 VBG Total CO2 VBG O2 Sat (Calc) VBG Base Excess VBG Potassium Glucose Lactate FiO2 Sodium Potassium Chloride Carbon Dioxide Anion Gap BUN Creatinine Est GFR ( Amer) Est GFR (Non-Af Amer) Random Glucose Calcium Total Bilirubin AST ALT Alkaline Phosphatase Lactate Dehydrogenase Total Creatine Kinase Troponin I 0.05 Total Protein Albumin Globulin Albumin/Globulin Ratio Venous Blood Potassium Blood Type O POSITIVE Antibody Screen Positive Antibody Identification Anti M BBK History Checked Patient has bt 01/16/18 11:45 WBC RBC Hgb Hct MCV MCH MCHC RDW Plt Count MPV PT INR APTT pO2 69 H VBG pH 7.38 VBG pCO2 54.0 VBG HCO3 31.9 H VBG Total CO2 33.6 H VBG O2 Sat (Calc) 94.6 H VBG Base Excess 5.3 H VBG Potassium 4.1 Glucose 127 H Lactate 0.9 FiO2 21.0 Sodium 132.0 Potassium Chloride 99.0 Carbon Dioxide Anion Gap BUN Creatinine Est GFR ( Amer) Est GFR (Non-Af Amer) Random Glucose Calcium Total Bilirubin AST ALT Alkaline Phosphatase Lactate Dehydrogenase Total Creatine Kinase Troponin I Total Protein Albumin Globulin Albumin/Globulin Ratio Venous Blood Potassium 4.1 Blood Type Antibody Screen Antibody Identification BBK History Checked Assessment & Plan - Assessment and Plan (Free Text) Assessment: 82 year old female with past medical history of ischemic disease, HTN, HDL, ESRD on HD, DM2, hx of diverticulosis, hx of diverticulitis and CHF who is admitted from [place] [facility] with report of lower GI bleed Plan: Lower GI Bleed Hx of Divertiulosis/Diverticulitis Hx of C. Diff CAD CHF- systolic HTN DM2 ESRD on HD - Possibly bleeding secondary to colitis - H/H on admission similar to discharge 2 days prior - Repeat H/H shows drop in Hgb to 8.6 - Transfuse pRBC with goal Hgb >7 - Bleeding Scan - No plan for endoscopy at this time - Further recommendations per Dr. Theodore - Date & Time Date: 01/16/18 Time: 07:30 <Ysabel Theodore V - Last Filed: 01/16/18 23:15> Meds - Medications Medications: Current Medications Sodium Chloride (Sodium Chloride 0.9%) 1,000 mls @ 40 mls/hr IV .Q24H [facility] Stop: 01/17/18 00:51 Last Admin: 01/16/18 01:03 Dose: 40 mls/hr Meropenem 250 mg/ Sodium (Chloride) 100 mls @ 100 mls/hr IVPB Q12H [facility]; Protocol Stop: 01/25/18 14:01 Last Admin: 01/16/18 17:35 Dose: 100 mls/hr Pantoprazole Sodium (Protonix Inj) 40 mg IVP DAILY [facility] Last Admin: 01/16/18 11:07 Dose: 40 mg Vancomycin HCl (Vancocin 25 Mg/Ml (Oral Use)) 250 mg PO QID [facility]; Protocol Stop: 01/25/18 18:01 Last Admin: 01/16/18 23:03 Dose: 250 mg Results - Vital Signs Recent Vital Signs: Last Vital Signs Temp 97.5 F L 01/16/18 16:00 Pulse 43 L 01/16/18 18:00 Resp 32 H 01/16/18 18:00 BP 147/47 L 01/16/18 18:00 Pulse Ox 99 01/16/18 18:00 - Labs Result Diagrams: 01/16/18 20:50 01/16/18 16:04 Labs: Laboratory Results - last 24 hr 01/15/18 01/16/18 01/16/18 21:20 06:30 11:24 WBC 6.2 RBC 2.99 L Hgb 8.6 L Hct 28.0 L MCV 93.6 MCH 28.8 MCHC 30.7 L RDW 17.4 H Plt Count 158 MPV 9.1 Gran % Lymph % (Auto) [place] % (Auto) Eos % (Auto) Baso % (Auto) Gran # Lymph # (Auto) [place] # (Auto) Eos # (Auto) Baso # (Auto) Retic Count pO2 VBG pH VBG pCO2 VBG HCO3 VBG Total CO2 VBG O2 Sat (Calc) VBG Base Excess VBG Potassium Sodium Chloride Glucose Lactate FiO2 Potassium Carbon Dioxide Anion Gap BUN Creatinine Est GFR ( Amer) Est GFR (Non-Af Amer) Random Glucose Calcium Phosphorus Iron TIBC % Saturation Troponin I 0.05 Venous Blood Potassium Antibody Identification Anti M 01/16/18 01/16/18 01/16/18 11:45 16:04 20:50 WBC 5.9 RBC 2.81 L Hgb 8.3 L Hct 26.7 L MCV 95.0 MCH 29.5 MCHC 31.1 RDW 17.3 H Plt Count 143 MPV 8.6 Gran % 76.7 H Lymph % (Auto) 17.0 L [place] % (Auto) 6.1 H Eos % (Auto) 0.2 L Baso % (Auto) 0.0 Gran # 4.50 Lymph # (Auto) 1.0 L [place] # (Auto) 0.4 Eos # (Auto) 0.0 Baso # (Auto) 0.00 Retic Count 1.83 H pO2 69 H VBG pH 7.38 VBG pCO2 54.0 VBG HCO3 31.9 H VBG Total CO2 33.6 H VBG O2 Sat (Calc) 94.6 H VBG Base Excess 5.3 H VBG Potassium 4.1 Sodium 132.0 135 Chloride 99.0 98 Glucose 127 H Lactate 0.9 FiO2 21.0 Potassium 3.0 L Carbon Dioxide 32 Anion Gap 8 L BUN 12 Creatinine 1.3 H Est GFR ( Amer) 47 Est GFR (Non-Af Amer) 39 Random Glucose 99 Calcium 7.3 L Phosphorus 2.1 L Iron TIBC % Saturation Troponin I Venous Blood Potassium 4.1 Antibody Identification 01/16/18 20:50 WBC RBC Hgb Hct MCV MCH MCHC RDW Plt Count MPV Gran % Lymph % (Auto) [place] % (Auto) Eos % (Auto) Baso % (Auto) Gran # Lymph # (Auto) [place] # (Auto) Eos # (Auto) Baso # (Auto) Retic Count pO2 VBG pH VBG pCO2 VBG HCO3 VBG Total CO2 VBG O2 Sat (Calc) VBG Base Excess VBG Potassium Sodium Chloride Glucose Lactate FiO2 Potassium Carbon Dioxide Anion Gap BUN Creatinine Est GFR ( Amer) Est GFR (Non-Af Amer) Random Glucose Calcium Phosphorus Iron 31 L TIBC 147 L % Saturation 21 Troponin I Venous Blood Potassium Antibody Identification Attending/Attestation - Attestation I have personally seen and examined this patient.: Yes I have fully participated in the care of the patient.: Yes I have reviewed all pertinent clinical information: Yes Notes (Text): This is an addendum to GI progress report dictated by Starr Bowers APN.The patient was seen and examined earlier. Medical records, lab studies, imagings were reviewed. Last 24 hours events reviewed. Agreed with the above treatment plan as outlined in Starr Bowers APN's notes with the addition of the following This patient was recenly discharged from hospital History of C. difficie colitis History of recurrent diverticulitis Cholelithiasis End-stage renal disease on hemodialysis Patient also complains of left lower discomfort The likely cause for lower GI bleeding should include colitis, C. difficile colitis, diverticulosis, internal hemorrhoids Patient remained hemod stable with a stable compared to before Would recommend Follow-up hemoglobin hct Bleeding scan if active bleeding Clear liquid diet 01/16/18 23:12
[2018-01-16 16:22] LABS: CALCIUM 7.3 mg/dL (8.4-10.5)
--- NOTE | 2018-01-16 16:40 | CARD ---
APPROVED REPORT Date of service: 01/15/2018 EKG Measurement Heart [id number] <Conclusion> Atrial fibrillation with slow ventricular response Nonspecific ST and T wave abnormality, probably digitalis effect Abnormal ECG
[2018-01-16] MEDS: Vancomycin 25 MG/ML PO SCH ×2 (17:50→23:03)
--- NOTE | 2018-01-16 18:25 | CON ---
DATE: 01/16/2018 HISTORY OF PRESENT ILLNESS: An 82-year-old lady well known to me from recent followup. The patient was recently discharged from [facility]. She had been admitted with altered mental status, possible sepsis, and decompensated congestive heart failure. The patient was treated with IV antibiotics. She also had constipation during that admission. She was given MiraLax and Colace. Subsequently, she had diarrhea. She was found to have C. diff antigen positive. She was treated for C. diff colitis. She was discharged on Sunday to rehab. She was brought back yesterday with complaints of rectal bleeding. There was some bright red blood found on the diaper. Currently, the patient is seen in the ICU. She is awake, she is alert. She denies any abdominal pain. She denies any diarrhea or constipation. She denies any chest pain. She denies any palpitations. The patient was initially admitted to the medical floor, but this morning she was found to have blood in her diaper. ICU eval was requested and thus patient is in the ICU. PAST MEDICAL AND SURGICAL HISTORY: NIDDM, hypertension, CAD, paroxysmal AFib, ESRD, anemia of chronic kidney disease, decreased ejection fraction, cardiomyopathy, hyperphosphatemia, secondary hyperparathyroidism. FAMILY HISTORY: Noncontributory. SOCIAL HISTORY: No smoking, no alcohol use, no IV drug abuse. ALLERGIES: CEFTRIAXONE. MEDICATIONS: Meropenem 250 every 12 hours, Protonix 40, normal saline at 40, p.o. vancomycin 250 four times a day. Protonix 40 mg IV push given yesterday in the emergency room. REVIEW OF SYSTEMS: All systems are reviewed, pertinent positives as mentioned in the history of presenting illness, rest unremarkable. PHYSICAL EXAMINATION GENERAL: Elderly lady, lying in bed in the ICU. VITAL SIGNS: Blood pressure 159/60, heart rate 50, respiratory rate 22, and temperature 97.8. HEENT: Normocephalic, atraumatic, and positive pallor. NECK: Supple, no JVD. LUNGS: Bilateral equal air entry, bilateral equal expansion, no rales. CARDIAC: S1 and S2, regular rate and rhythm, no murmur, no rub. ABDOMEN: Soft, nondistended, nontender, bowel sounds present. EXTREMITIES: No lower extremity edema. LABORATORY DATA: WBC 6.2, hemoglobin 8.6, hematocrit 28, and platelets 158. Sodium 133, potassium 3.8, chloride 93, CO2 of 31. BUN 31, creatinine 3.1. Glucose 142. Calcium 8.2. AST 34, ALT 15. Albumin 2.9. Chest x-ray, some pulmonary vascular congestion, bilateral infiltrates, moderate effusion. ASSESSMENT: 1. Congestive heart failure, cardiomyopathy, pleural effusion, decreased ejection fraction. 2. Ajf-[id number]-lapvobwhv diabetes mellitus. 3. Hypertension. 4. End-stage renal disease. 5. Acute on chronic anemia. 6. Rectal bleeding. 7. History of diverticulosis and diverticulitis. 8. History of Clostridium difficile colitis. 9. Malnutrition. 10. Hypokalemia. PLAN: 1. The patient remains hemodynamically stable, despite lower GI bleed. Hemoglobin is somewhat lower. She came in with a hemoglobin of 9.1, today's hemoglobin is 8.6. We will continue to monitor closely. 2. Dialysis today without heparin. 3. Hold antihypertensives for now. 4. Agree with monitoring in the ICU setting. 5. GI evaluation. 6. Check labs. 7. P.r.n. transfusion if hemoglobin drops below 8. 8. Case discussed with Dr. Ascencio at length, case discussed with the patient at the bedside at length, case discussed with ICU residents, case discussed with dialysis staff. More than 35 minutes spent in the care of this critically ill patient. Barbi Linares MD
--- NOTE | 2018-01-16 19:42 | HP ---
HISTORY OF PRESENT ILLNESS: An 82-year-old female currently being admitted to [facility] after being transferred from [facility] with a history of rectal bleeding. PAST MEDICAL HISTORY: Chronic renal dialysis, C. difficile infection, proctitis, diverticulosis, diverticulitis, acute cholecystitis, cholelithiasis, left hip surgery, carotid disease, non-ST myocardial infarction, ischemic heart disease, cardiac arrhythmias with bradyarrhythmias, congestive heart failure, pleural effusion is bilateral, insulin-dependent diabetes, hyperlipidemia, history of pneumonia, history of C. diff. ALLERGIES: CEFTRIAXONE. HOME MEDICATIONS: Not documented in the system. We will review with halfway facility and nursing staff. REVIEW OF SYSTEMS: Ten systems are reviewed. Pertinent findings is that there is evidence of rectal bleeding. PHYSICAL EXAMINATION: VITAL SIGNS: The patient's temperature at this time is 98.6, pulse is 85, blood pressure is 141/59, respiratory rate is 20, oxygen saturation is 87% on 2 L of nasal oxygen. GENERAL: The patient is alert and oriented. NECK: Supple. LUNGS: Show diminished breath sounds at the bases with rhonchi. HEART: S1 and S2, grade 3/6 systolic murmur at the left cardiac border. ABDOMEN: Soft. Positive bowel sounds. EXTREMITIES: Show no evidence of edema. RECTAL: Has evidence of rectal bleed present at this time. LABORATORY DATA: WBC 6.9, RBC 3.25, hemoglobin 9.5, hematocrit 30.7, and platelet count 151. On admission this morning, the hemoglobin was 8.6, hematocrit was 28. PT is 12.9 with an INR of 1.13, PTT is 28.4. Chemistry shows sodium 133, potassium 3.8, chloride 93. BUN is 31, creatinine is 3.1. Random blood sugar 142. Calcium 8.2. AST, ALT, and alkaline phosphatase normal. LDH is 320. Troponin is 0.05. The albumin is 2.9. Electrocardiogram is reported as showing a rhythm, which is AFib with slow ventricular response, incomplete left bundle-branch block. Her chest x-ray is reported by Radiology to show bilateral infiltrates, moderate size effusion showing some improvement. IMPRESSION: An 82-year-old female with; 1. Rectal bleeding. 2. Chronic renal disease. 3. Bilateral pleural effusions. 4. Anemia. 5. History of Clostridium difficile. 6. History of proctitis. 7. Diverticulosis. 8. Hypoxia. 9. Atrial fibrillation. PLAN: We will request the patient to be evaluated by the intensive care unit. The patient will be typed and screened. Will get followups with Renal, GI, and Infectious Disease. The patient has a living will. She is a DNR/DNI. Shavonne Ascencio MD
[2018-01-16 21:14] LABS: IRON 31 ug/dL (45-180)
[2018-01-16 21:18] LABS: EOS % 0.2 % (1.5-5.0); GRAN % 76.7 % (50.0-68.0); HEMOGLOBIN 8.3 g/dL (12.0-16.0); MEAN CORPUSCULAR HEMOGLOBIN 29.5 pg (25.0-35.0); MEAN CORPUSCULAR HGB CONC 31.1 g/dl (31.0-37.0); MEAN PLATELET VOLUME 8.6 fl (7.0-11.0); MONO # 0.4 (0.1-0.6); MONO % 6.1 % (1.0-6.0); PLATELET COUNT 143 10^3/uL (120.0-450.0); RBC 2.81 10^6/uL (3.5-6.1); RED CELL DISTRIBUTION WIDTH 17.3 % (11.5-14.5); WHITE BLOOD COUNT 5.9 10^3/ul (4.5-11.0)
[2018-01-16] MEDS ORDERED: DOPamine 400mg/250ml D5W 0 MG/0 ML BAG IV ONE (21:19)
[2018-01-16 21:23] LABS: % IRON SATURATION 21 % (20-55); TOTAL IRON BINDING CAPACITY 147 ug/dL (265-497)
[2018-01-17] MEDS ORDERED: Albuterol-Ipratrop 3 mg / 0.5 (3 ml) UD IH STA (04:21)
[2018-01-17 07:40] LABS: ALB/GLOB RATIO 0.8 (1.1-1.8); ALBUMIN 2.4 g/dL (3.0-4.8); CALCIUM 7.4 mg/dL (8.4-10.5)
[2018-01-17 10:35] LABS: EOS % 0.1 % (1.5-5.0); GRAN # 6.72 (1.4-6.5); GRAN % 84.7 % (50.0-68.0); HEMOGLOBIN 8.2 g/dL (12.0-16.0); LYMPH # 0.7 (1.2-3.4); LYMPH % 8.8 % (22.0-35.0); MEAN CELL VOLUME 96.4 fl (80.0-105.0); MEAN CORPUSCULAR HEMOGLOBIN 29.6 pg (25.0-35.0); MEAN CORPUSCULAR HGB CONC 30.7 g/dl (31.0-37.0); MEAN PLATELET VOLUME 9.1 fl (7.0-11.0); MONO # 0.5 (0.1-0.6); MONO % 6.4 % (1.0-6.0); RBC 2.77 10^6/uL (3.5-6.1); RED CELL DISTRIBUTION WIDTH 17.4 % (11.5-14.5); WHITE BLOOD COUNT 7.9 10^3/ul (4.5-11.0)
--- NOTE | 2018-01-17 11:18 | NM ---
Date of service: 01/16/2018 PROCEDURE: Nuclear medicine gastrointestinal bleeding scan. HISTORY: lower gi bleed COMPARISON: None available. TECHNIQUE: 4ccof patient blood was withdrawn and mixed with 30.0mCi of technetium ultra tagged. Images of the abdomen and pelvis were obtained in the anterior and posterior projection at 1 min intervals over a period of 45 min. FINDINGS: No abnormal extravasation of tracer was observed throughout the exam to indicate active bleeding within or outside the gastrointestinal tract. Physiologic activity was seen in the heart, liver, spleen and blood vessels. IMPRESSION: No evidence of active gastrointestinal bleeding. Concordant results (preliminary interpretation) provided by [employer]. Procedure Completed: 20:07. Preliminary Report: Dictated and Authenticated: 21:08. Final Interpretation: 11:15.
--- NOTE | 2018-01-17 12:25 | CON ---
DATE: 01/17/2018 LOCATION: The patient was seen earlier today in the ICU. CHIEF COMPLAINT: Weakness times several days. HISTORY OF PRESENT ILLNESS: This is an 82-year-old female with a history of chronic renal failure, on hemodialysis; hypertension; diabetes; coronary artery disease; congestive heart failure and correction patient and who was recently discharged and readmitted now with GI bleed and Infectious Disease consultation requested. REVIEW OF SYSTEMS: Reveals there are low-grade fevers. No abdominal pain, diarrhea or constipation. No bright red blood per rectum. No melena. No chest pain. Review of system reveals 12-point review of systems performed. 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 PAST SURGICAL HISTORY: Significant for cardiac catheterization, cataract surgery, left hip replacement, hysterectomy. ALLERGIES: THE PATIENT IS ALLERGIC TO CEFTRIAXONE. MEDICATIONS AT HOME: Reviewed. PHYSICAL EXAMINATION: GENERAL: On exam, the patient is in bed, in no acute distress, nontoxic. VITAL SIGNS: Temperature of 98, blood pressure is 140/40, respiratory rate of 21, heart rate is 43 and it was 77 yesterday. HEENT: Examination of HEENT is unremarkable. NECK: Supple. LUNGS: Have decreased breath sounds. HEART: Normal S1, S2. ABDOMEN: Soft, nontender. LABORATORY DATA: Laboratory examination reveals a white count of 6.9. Chemistries are noted. BUN of 12. Creatinine today is 2.4. Microbiology is C. diff antigen was positive on 01/11/2018. Blood cultures had been negative in the past. ASSESSMENT AND PLAN: AN 82-year-old female, correction patient at one time and chronic renal failure, on hemodialysis; hypertension; diabetes; coronary artery disease; congestive heart failure and diverticulitis, now with acute anemia of gastrointestinal loss of anemia secondary to lower gastrointestinal bleed with a history of pseudomembranous colitis. We will treat with p.o. vancomycin. Blood cultures are pending. Nasal methicillin-resistant Staphylococcus aureus screen is pending. We will continue the p.o. vancomycin and follow closely with you. Case discussed with primary medical doctor and staff in the ICU. Jeromy Castellanos MD [facility] # [id number]
[2018-01-17] MEDS: Vancomycin 25 MG/ML PO SCH ×4 (12:57→22:28)
--- NOTE | 2018-01-17 14:34 | CP.CCUPN ---
Addendum entered and electronically signed by Cynthia Soto MD 01/17/18 15:52: ICU Attending: Patient is also being treated for CDiff prior to this admission on PO VANC CONT contact isolation as well as PO Vanc as per PCP Original Note: <Edmond Stanley - Last Filed: 01/17/18 14:04> CCU Subjective - Physician Review Subjective (Free Text): 01/17/18 14:05 Edmond Stanley DO PGY1 Internal Medicine Ethnic Studies Professor - ICU PRogress Note Pt. seen and evaluated at bedside; no acute events overnight; Yesterday afternoon patient did have one bloody BM however no further instances of active bleeding reported. Patient voicing no complaints this AM; Patient appears to be at mental baseline 12 system ROS is otherwise negative at this time. CCU Objective - Vital Signs / Intake & Output Vital Signs (Last 4 hours): Vital Signs Pulse Resp Pulse Ox 01/17/18 13:50 83 78 H 100 01/17/18 13:40 70 38 H 100 01/17/18 13:30 84 36 H 100 01/17/18 13:20 82 22 100 01/17/18 13:10 84 38 H 100 01/17/18 13:00 84 35 H 100 01/17/18 12:50 83 25 H 100 01/17/18 12:40 84 44 H 99 01/17/18 12:30 84 40 H 100 01/17/18 12:20 71 39 H 100 01/17/18 12:10 61 100 01/17/18 12:00 42 L 23 100 01/17/18 11:50 42 L 20 100 01/17/18 11:40 42 L 24 100 01/17/18 11:30 42 L 18 100 01/17/18 11:20 43 L 34 H 100 01/17/18 11:10 43 L 25 H 100 01/17/18 11:00 43 L 22 100 01/17/18 10:50 54 L 25 H 100 01/17/18 10:40 43 L 28 H 100 01/17/18 10:30 43 L 33 H 100 01/17/18 10:20 49 L 49 H 100 01/17/18 10:10 53 L 99 Intake and Output (Last 8hrs): Intake & Output 01/16/18 01/17/18 01/17/18 22:59 06:59 14:59 Intake Total 370 850 Output Total 1000 0 Balance -630 850 Weight 52.617 kg Intake: IV 320 850 IVF 320 Right Antecubital 850 Oral 50 0 Output: Urine 0 Urine, Voided 0 Stool 0 Other 1000 Other: # Bowel Movements 1 - Physical Exam Head: Positive for: Atraumatic, Normocephalic Pupils: Positive for: PERRL Extroacular Muscles: Positive for: EOMI Conjunctiva: Positive for: Normal Mouth: Positive for: Moist Mucous Membranes Neck: Positive for: Normal Range of Motion Respiratory/Chest: Positive for: Clear to Auscultation, Good Air Exchange. Negative for: Respiratory Distress, Accessory Muscle Use Cardiovascular: Positive for: Regular Rate and Rhythm, Normal S1, S2. Negative for: Murmurs Abdomen: Negative for: Tenderness, Distention, Peritoneal Signs Back: Positive for: Normal Inspection Upper Extremity: Positive for: Normal Inspection. Negative for: Cyanosis, Edema Lower Extremity: Positive for: Normal Inspection. Negative for: Edema Neurological: Positive for: GCS=15, CN II-XII Intact, Speech Normal Skin: Positive for: Warm, Dry, Normal Color. Negative for: Rashes Psychiatric: Positive for: Alert, Oriented x 3, Normal Insight, Normal Concentration - Medications Active Medications: Active Medications Generic Name Dose Route Start Last Admin Trade Name Freq PRN Reason Stop Dose Admin Pantoprazole Sodium 40 mg 01/16/18 10:00 01/17/18 12:55 Protonix Inj IVP 40 mg DAILY RUTHANN Administration Vancomycin HCl 250 mg 01/16/18 18:00 01/17/18 12:57 Vancocin 25 Mg/Ml (Oral Use) PO 01/25/18 18:01 250 mg QID RUTHANN Administration Protocol - Patient Studies Lab Studies: Lab Studies 01/17/18 01/17/18 01/17/18 Range/Units 10:30 08:05 07:44 WBC 7.9 D (4.5-11.0) 10^3/ul RBC 2.77 L (3.5-6.1) 10^6/uL Hgb 8.2 L (12.0-16.0) g/dL Hct 26.7 L (36.0-48.0) % MCV 96.4 (80.0-105.0) fl MCH 29.6 (25.0-35.0) pg MCHC 30.7 L (31.0-37.0) g/dl RDW 17.4 H (11.5-14.5) % Plt Count 146 (120.0-450.0) 10^3/uL MPV 9.1 (7.0-11.0) fl Gran % 84.7 H (50.0-68.0) % Lymph % (Auto) 8.8 L (22.0-35.0) % Antelope % (Auto) 6.4 H (1.0-6.0) % Eos % (Auto) 0.1 L (1.5-5.0) % Baso % (Auto) 0.0 (0.0-3.0) % Gran # 6.72 H (1.4-6.5) Lymph # (Auto) 0.7 L (1.2-3.4) Antelope # (Auto) 0.5 (0.1-0.6) Eos # (Auto) 0.0 (0.0-0.7) Baso # (Auto) 0.00 (0.0-2.0) K/mm3 Retic Count (0.5-1.5) % Sodium (132-148) mmol/L Potassium (3.6-5.0) mmol/L Chloride (98-107) mmol/L Carbon Dioxide (21-33) mmol/L Anion Gap (10-20) BUN (7-21) mg/dL Creatinine (0.7-1.2) mg/dl Est GFR ( Amer) Est GFR (Non-Af Amer) POC Glucose (mg/dL) 102 (65-110) mg/dL Random Glucose (70-110) mg/dL Calcium (8.4-10.5) mg/dL Phosphorus 4.0 (2.5-4.5) mg/dL Magnesium 1.9 (1.7-2.2) mg/dL Iron (45-180) ug/dL TIBC (265-497) ug/dL % Saturation (20-55) % Total Bilirubin (0.2-1.3) mg/dL AST (14-36) U/L ALT (7-56) U/L Alkaline Phosphatase (38-126) U/L Total Protein (5.8-8.3) g/dL Albumin (3.0-4.8) g/dL Globulin gm/dL Albumin/Globulin Ratio (1.1-1.8) 01/17/18 01/16/18 01/16/18 Range/Units 06:00 20:50 20:50 WBC 5.9 (4.5-11.0) 10^3/ul RBC 2.81 L (3.5-6.1) 10^6/uL Hgb 8.3 L (12.0-16.0) g/dL Hct 26.7 L (36.0-48.0) % MCV 95.0 (80.0-105.0) fl MCH 29.5 (25.0-35.0) pg MCHC 31.1 (31.0-37.0) g/dl RDW 17.3 H (11.5-14.5) % Plt Count 143 (120.0-450.0) 10^3/uL MPV 8.6 (7.0-11.0) fl Gran % 76.7 H (50.0-68.0) % Lymph % (Auto) 17.0 L (22.0-35.0) % Antelope % (Auto) 6.1 H (1.0-6.0) % Eos % (Auto) 0.2 L (1.5-5.0) % Baso % (Auto) 0.0 (0.0-3.0) % Gran # 4.50 (1.4-6.5) Lymph # (Auto) 1.0 L (1.2-3.4) Antelope # (Auto) 0.4 (0.1-0.6) Eos # (Auto) 0.0 (0.0-0.7) Baso # (Auto) 0.00 (0.0-2.0) K/mm3 Retic Count 1.83 H (0.5-1.5) % Sodium 138 (132-148) mmol/L Potassium 3.5 L (3.6-5.0) mmol/L Chloride 99 (98-107) mmol/L Carbon Dioxide 29 (21-33) mmol/L Anion Gap 14 (10-20) BUN 18 (7-21) mg/dL Creatinine 2.4 H (0.7-1.2) mg/dl Est GFR ( Amer) 23 Est GFR (Non-Af Amer) 19 POC Glucose (mg/dL) (65-110) mg/dL Random Glucose 99 (70-110) mg/dL Calcium 7.4 L (8.4-10.5) mg/dL Phosphorus (2.5-4.5) mg/dL Magnesium (1.7-2.2) mg/dL Iron 31 L (45-180) ug/dL TIBC 147 L (265-497) ug/dL % Saturation 21 (20-55) % Total Bilirubin 0.4 (0.2-1.3) mg/dL AST 20 (14-36) U/L ALT 18 (7-56) U/L Alkaline Phosphatase 78 (38-126) U/L Total Protein 5.7 L (5.8-8.3) g/dL Albumin 2.4 L (3.0-4.8) g/dL Globulin 3.2 gm/dL Albumin/Globulin Ratio 0.8 L (1.1-1.8) 01/16/18 Range/Units 16:04 WBC (4.5-11.0) 10^3/ul RBC (3.5-6.1) 10^6/uL Hgb (12.0-16.0) g/dL Hct (36.0-48.0) % MCV (80.0-105.0) fl MCH (25.0-35.0) pg MCHC (31.0-37.0) g/dl RDW (11.5-14.5) % Plt Count (120.0-450.0) 10^3/uL MPV (7.0-11.0) fl Gran % (50.0-68.0) % Lymph % (Auto) (22.0-35.0) % Antelope % (Auto) (1.0-6.0) % Eos % (Auto) (1.5-5.0) % Baso % (Auto) (0.0-3.0) % Gran # (1.4-6.5) Lymph # (Auto) (1.2-3.4) Antelope # (Auto) (0.1-0.6) Eos # (Auto) (0.0-0.7) Baso # (Auto) (0.0-2.0) K/mm3 Retic Count (0.5-1.5) % Sodium 135 (132-148) mmol/L Potassium 3.0 L (3.6-5.0) mmol/L Chloride 98 (98-107) mmol/L Carbon Dioxide 32 (21-33) mmol/L Anion Gap 8 L (10-20) BUN 12 (7-21) mg/dL Creatinine 1.3 H (0.7-1.2) mg/dl Est GFR ( Amer) 47 Est GFR (Non-Af Amer) 39 POC Glucose (mg/dL) (65-110) mg/dL Random Glucose 99 (70-110) mg/dL Calcium 7.3 L (8.4-10.5) mg/dL Phosphorus 2.1 L (2.5-4.5) mg/dL Magnesium (1.7-2.2) mg/dL Iron (45-180) ug/dL TIBC (265-497) ug/dL % Saturation (20-55) % Total Bilirubin (0.2-1.3) mg/dL AST (14-36) U/L ALT (7-56) U/L Alkaline Phosphatase (38-126) U/L Total Protein (5.8-8.3) g/dL Albumin (3.0-4.8) g/dL Globulin gm/dL Albumin/Globulin Ratio (1.1-1.8) Laboratory Results - last 24 hr 01/16/18 01/16/18 01/16/18 16:04 20:50 20:50 WBC 5.9 RBC 2.81 L Hgb 8.3 L Hct 26.7 L MCV 95.0 MCH 29.5 MCHC 31.1 RDW 17.3 H Plt Count 143 MPV 8.6 Gran % 76.7 H Lymph % (Auto) 17.0 L Antelope % (Auto) 6.1 H Eos % (Auto) 0.2 L Baso % (Auto) 0.0 Gran # 4.50 Lymph # (Auto) 1.0 L Antelope # (Auto) 0.4 Eos # (Auto) 0.0 Baso # (Auto) 0.00 Retic Count 1.83 H Sodium 135 Potassium 3.0 L Chloride 98 Carbon Dioxide 32 Anion Gap 8 L BUN 12 Creatinine 1.3 H Est GFR ( Amer) 47 Est GFR (Non-Af Amer) 39 POC Glucose (mg/dL) Random Glucose 99 Calcium 7.3 L Phosphorus 2.1 L Magnesium Iron 31 L TIBC 147 L % Saturation 21 Total Bilirubin AST ALT Alkaline Phosphatase Total Protein Albumin Globulin Albumin/Globulin Ratio 01/17/18 01/17/18 01/17/18 06:00 07:44 08:05 WBC RBC Hgb Hct MCV MCH MCHC RDW Plt Count MPV Gran % Lymph % (Auto) Antelope % (Auto) Eos % (Auto) Baso % (Auto) Gran # Lymph # (Auto) Antelope # (Auto) Eos # (Auto) Baso # (Auto) Retic Count Sodium 138 Potassium 3.5 L Chloride 99 Carbon Dioxide 29 Anion Gap 14 BUN 18 Creatinine 2.4 H Est GFR ( Amer) 23 Est GFR (Non-Af Amer) 19 POC Glucose (mg/dL) 102 Random Glucose 99 Calcium 7.4 L Phosphorus 4.0 Magnesium 1.9 Iron TIBC % Saturation Total Bilirubin 0.4 AST 20 ALT 18 Alkaline Phosphatase 78 Total Protein 5.7 L Albumin 2.4 L Globulin 3.2 Albumin/Globulin Ratio 0.8 L 01/17/18 10:30 WBC 7.9 D RBC 2.77 L Hgb 8.2 L Hct 26.7 L MCV 96.4 MCH 29.6 MCHC 30.7 L RDW 17.4 H Plt Count 146 MPV 9.1 Gran % 84.7 H Lymph % (Auto) 8.8 L Antelope % (Auto) 6.4 H Eos % (Auto) 0.1 L Baso % (Auto) 0.0 Gran # 6.72 H Lymph # (Auto) 0.7 L Antelope # (Auto) 0.5 Eos # (Auto) 0.0 Baso # (Auto) 0.00 Retic Count Sodium Potassium Chloride Carbon Dioxide Anion Gap BUN Creatinine Est GFR ( Amer) Est GFR (Non-Af Amer) POC Glucose (mg/dL) Random Glucose Calcium Phosphorus Magnesium Iron TIBC % Saturation Total Bilirubin AST ALT Alkaline Phosphatase Total Protein Albumin Globulin Albumin/Globulin Ratio Review of Systems - Review of Systems All systems: reviewed and no additional remarkable complaints except Review of Systems: as per HPI Critical Care Progress Note - Nutrition Nutrition: Nutrition Category Date Time Status Liquid Diet [DIET] Diets 01/17/18 Breakfast Ordered Assessment/Plan - Assessment and Plan (Free Text) Assessment: 82F [place] [facility] [place]/ a CC of lower GI Bleed reported as BRB AR; subsequently admitted to ICU for further monitoring and evaluation. NO further complaints of bleeding endorsed by patient, she has remained hemodynamically stable overnight and throughout ICU course GI: Bleeding most likely 2/2 CDIFF colitis vs internal hemorrhoids vs diverticulitis H/H 8.2 this AM GI Bleeding scan showed no bleed Maintain Hb >7 Transfuse as necessary; 2 units typed + crossed for patient at this time C/w Vancomycin as per ID for CDiff colitis Protonix IVP No plan for endoscopy/colonoscopy as per GI GI On board appreciate reccs Neuro: AAO2 Patient is at baseline Reorient as necessary Pulm: Maintain O2 Sat >95% O2 NC PRN Cardio: Patient is HD stable at this time Maintain Map >65 Nephro/: ESRD on HD Dialysis as per nephrology Maintain Euvolemia DISPO: Patient no longer requires ICU level management or monitoring at this time; patient is stable for further management on med/surg floor Patient seen, examined, discussed w/ attending Dr. Charles Stanley DO PGY1 Internal Medicine Ethnic Studies Professor - Date & Time Date: 01/17/18 Time: 14:34 <Cynthia Soto - Last Filed: 01/17/18 14:51> CCU Objective - Vital Signs / Intake & Output Vital Signs (Last 4 hours): Vital Signs Temp Pulse Resp Pulse Ox 01/17/18 13:50 83 78 H 100 01/17/18 13:40 70 38 H 100 01/17/18 13:30 84 36 H 100 01/17/18 13:20 82 22 100 01/17/18 13:10 84 38 H 100 01/17/18 13:00 84 35 H 100 01/17/18 12:50 83 25 H 100 01/17/18 12:40 84 44 H 99 01/17/18 12:30 84 40 H 100 01/17/18 12:20 71 39 H 100 01/17/18 12:10 61 100 01/17/18 12:00 98.2 F 42 L 23 100 01/17/18 11:50 42 L 20 100 01/17/18 11:40 42 L 24 100 01/17/18 11:30 42 L 18 100 10/04/18 11:20 43 L 34 H 100 10/04/18 11:10 43 L 25 H 100 01/17/18 11:00 43 L 22 100 Intake and Output (Last 8hrs): Intake & Output 01/16/18 01/17/18 01/17/18 22:59 06:59 14:59 Intake Total 370 850 Output Total 1000 0 Balance -630 850 Weight 52.617 kg Intake: IV 320 850 IVF 320 Right Antecubital 850 Oral 50 0 Output: Urine 0 Urine, Voided 0 Stool 0 Other 1000 Other: # Bowel Movements 1 - Medications Active Medications: Active Medications Generic Name Dose Route Start Last Admin Trade Name Freq PRN Reason Stop Dose Admin Pantoprazole Sodium 40 mg 01/16/18 10:00 01/17/18 12:55 Protonix Inj IVP 40 mg DAILY RUTHANN Administration Vancomycin HCl 250 mg 01/16/18 18:00 01/17/18 12:57 Vancocin 25 Mg/Ml (Oral Use) PO 01/25/18 18:01 250 mg QID RUTHANN Administration Protocol - Patient Studies Lab Studies: Lab Studies 01/17/18 01/17/18 01/17/18 Range/Units 10:30 08:05 07:44 WBC 7.9 D (4.5-11.0) 10^3/ul RBC 2.77 L (3.5-6.1) 10^6/uL Hgb 8.2 L (12.0-16.0) g/dL Hct 26.7 L (36.0-48.0) % MCV 96.4 (80.0-105.0) fl MCH 29.6 (25.0-35.0) pg MCHC 30.7 L (31.0-37.0) g/dl RDW 17.4 H (11.5-14.5) % Plt Count 146 (120.0-450.0) 10^3/uL MPV 9.1 (7.0-11.0) fl Gran % 84.7 H (50.0-68.0) % Lymph % (Auto) 8.8 L (22.0-35.0) % Antelope % (Auto) 6.4 H (1.0-6.0) % Eos % (Auto) 0.1 L (1.5-5.0) % Baso % (Auto) 0.0 (0.0-3.0) % Gran # 6.72 H (1.4-6.5) Lymph # (Auto) 0.7 L (1.2-3.4) Antelope # (Auto) 0.5 (0.1-0.6) Eos # (Auto) 0.0 (0.0-0.7) Baso # (Auto) 0.00 (0.0-2.0) K/mm3 Retic Count (0.5-1.5) % Sodium (132-148) mmol/L Potassium (3.6-5.0) mmol/L Chloride (98-107) mmol/L Carbon Dioxide (21-33) mmol/L Anion Gap (10-20) BUN (7-21) mg/dL Creatinine (0.7-1.2) mg/dl Est GFR ( Amer) Est GFR (Non-Af Amer) POC Glucose (mg/dL) 102 (65-110) mg/dL Random Glucose (70-110) mg/dL Calcium (8.4-10.5) mg/dL Phosphorus 4.0 (2.5-4.5) mg/dL Magnesium 1.9 (1.7-2.2) mg/dL Iron (45-180) ug/dL TIBC (265-497) ug/dL % Saturation (20-55) % Total Bilirubin (0.2-1.3) mg/dL AST (14-36) U/L ALT (7-56) U/L Alkaline Phosphatase (38-126) U/L Total Protein (5.8-8.3) g/dL Albumin (3.0-4.8) g/dL Globulin gm/dL Albumin/Globulin Ratio (1.1-1.8) 01/17/18 01/16/18 01/16/18 Range/Units 06:00 20:50 20:50 WBC 5.9 (4.5-11.0) 10^3/ul RBC 2.81 L (3.5-6.1) 10^6/uL Hgb 8.3 L (12.0-16.0) g/dL Hct 26.7 L (36.0-48.0) % MCV 95.0 (80.0-105.0) fl MCH 29.5 (25.0-35.0) pg MCHC 31.1 (31.0-37.0) g/dl RDW 17.3 H (11.5-14.5) % Plt Count 143 (120.0-450.0) 10^3/uL MPV 8.6 (7.0-11.0) fl Gran % 76.7 H (50.0-68.0) % Lymph % (Auto) 17.0 L (22.0-35.0) % Antelope % (Auto) 6.1 H (1.0-6.0) % Eos % (Auto) 0.2 L (1.5-5.0) % Baso % (Auto) 0.0 (0.0-3.0) % Gran # 4.50 (1.4-6.5) Lymph # (Auto) 1.0 L (1.2-3.4) Antelope # (Auto) 0.4 (0.1-0.6) Eos # (Auto) 0.0 (0.0-0.7) Baso # (Auto) 0.00 (0.0-2.0) K/mm3 Retic Count 1.83 H (0.5-1.5) % Sodium 138 (132-148) mmol/L Potassium 3.5 L (3.6-5.0) mmol/L Chloride 99 (98-107) mmol/L Carbon Dioxide 29 (21-33) mmol/L Anion Gap 14 (10-20) BUN 18 (7-21) mg/dL Creatinine 2.4 H (0.7-1.2) mg/dl Est GFR ( Amer) 23 Est GFR (Non-Af Amer) 19 POC Glucose (mg/dL) (65-110) mg/dL Random Glucose 99 (70-110) mg/dL Calcium 7.4 L (8.4-10.5) mg/dL Phosphorus (2.5-4.5) mg/dL Magnesium (1.7-2.2) mg/dL Iron 31 L (45-180) ug/dL TIBC 147 L (265-497) ug/dL % Saturation 21 (20-55) % Total Bilirubin 0.4 (0.2-1.3) mg/dL AST 20 (14-36) U/L ALT 18 (7-56) U/L Alkaline Phosphatase 78 (38-126) U/L Total Protein 5.7 L (5.8-8.3) g/dL Albumin 2.4 L (3.0-4.8) g/dL Globulin 3.2 gm/dL Albumin/Globulin Ratio 0.8 L (1.1-1.8) 01/16/18 Range/Units 16:04 WBC (4.5-11.0) 10^3/ul RBC (3.5-6.1) 10^6/uL Hgb (12.0-16.0) g/dL Hct (36.0-48.0) % MCV (80.0-105.0) fl MCH (25.0-35.0) pg MCHC (31.0-37.0) g/dl RDW (11.5-14.5) % Plt Count (120.0-450.0) 10^3/uL MPV (7.0-11.0) fl Gran % (50.0-68.0) % Lymph % (Auto) (22.0-35.0) % Antelope % (Auto) (1.0-6.0) % Eos % (Auto) (1.5-5.0) % Baso % (Auto) (0.0-3.0) % Gran # (1.4-6.5) Lymph # (Auto) (1.2-3.4) Antelope # (Auto) (0.1-0.6) Eos # (Auto) (0.0-0.7) Baso # (Auto) (0.0-2.0) K/mm3 Retic Count (0.5-1.5) % Sodium 135 (132-148) mmol/L Potassium 3.0 L (3.6-5.0) mmol/L Chloride 98 (98-107) mmol/L Carbon Dioxide 32 (21-33) mmol/L Anion Gap 8 L (10-20) BUN 12 (7-21) mg/dL Creatinine 1.3 H (0.7-1.2) mg/dl Est GFR ( Amer) 47 Est GFR (Non-Af Amer) 39 POC Glucose (mg/dL) (65-110) mg/dL Random Glucose 99 (70-110) mg/dL Calcium 7.3 L (8.4-10.5) mg/dL Phosphorus 2.1 L (2.5-4.5) mg/dL Magnesium (1.7-2.2) mg/dL Iron (45-180) ug/dL TIBC (265-497) ug/dL % Saturation (20-55) % Total Bilirubin (0.2-1.3) mg/dL AST (14-36) U/L ALT (7-56) U/L Alkaline Phosphatase (38-126) U/L Total Protein (5.8-8.3) g/dL Albumin (3.0-4.8) g/dL Globulin gm/dL Albumin/Globulin Ratio (1.1-1.8) Laboratory Results - last 24 hr 01/16/18 01/16/18 01/16/18 16:04 20:50 20:50 WBC 5.9 RBC 2.81 L Hgb 8.3 L Hct 26.7 L MCV 95.0 MCH 29.5 MCHC 31.1 RDW 17.3 H Plt Count 143 MPV 8.6 Gran % 76.7 H Lymph % (Auto) 17.0 L Antelope % (Auto) 6.1 H Eos % (Auto) 0.2 L Baso % (Auto) 0.0 Gran # 4.50 Lymph # (Auto) 1.0 L Antelope # (Auto) 0.4 Eos # (Auto) 0.0 Baso # (Auto) 0.00 Retic Count 1.83 H Sodium 135 Potassium 3.0 L Chloride 98 Carbon Dioxide 32 Anion Gap 8 L BUN 12 Creatinine 1.3 H Est GFR ( Amer) 47 Est GFR (Non-Af Amer) 39 POC Glucose (mg/dL) Random Glucose 99 Calcium 7.3 L Phosphorus 2.1 L Magnesium Iron 31 L TIBC 147 L % Saturation 21 Total Bilirubin AST ALT Alkaline Phosphatase Total Protein Albumin Globulin Albumin/Globulin Ratio 01/17/18 01/17/18 01/17/18 06:00 07:44 08:05 WBC RBC Hgb Hct MCV MCH MCHC RDW Plt Count MPV Gran % Lymph % (Auto) Antelope % (Auto) Eos % (Auto) Baso % (Auto) Gran # Lymph # (Auto) Antelope # (Auto) Eos # (Auto) Baso # (Auto) Retic Count Sodium 138 Potassium 3.5 L Chloride 99 Carbon Dioxide 29 Anion Gap 14 BUN 18 Creatinine 2.4 H Est GFR ( Amer) 23 Est GFR (Non-Af Amer) 19 POC Glucose (mg/dL) 102 Random Glucose 99 Calcium 7.4 L Phosphorus 4.0 Magnesium 1.9 Iron TIBC % Saturation Total Bilirubin 0.4 AST 20 ALT 18 Alkaline Phosphatase 78 Total Protein 5.7 L Albumin 2.4 L Globulin 3.2 Albumin/Globulin Ratio 0.8 L 01/17/18 10:30 WBC 7.9 D RBC 2.77 L Hgb 8.2 L Hct 26.7 L MCV 96.4 MCH 29.6 MCHC 30.7 L RDW 17.4 H Plt Count 146 MPV 9.1 Gran % 84.7 H Lymph % (Auto) 8.8 L Antelope % (Auto) 6.4 H Eos % (Auto) 0.1 L Baso % (Auto) 0.0 Gran # 6.72 H Lymph # (Auto) 0.7 L Antelope # (Auto) 0.5 Eos # (Auto) 0.0 Baso # (Auto) 0.00 Retic Count Sodium Potassium Chloride Carbon Dioxide Anion Gap BUN Creatinine Est GFR ( Amer) Est GFR (Non-Af Amer) POC Glucose (mg/dL) Random Glucose Calcium Phosphorus Magnesium Iron TIBC % Saturation Total Bilirubin AST ALT Alkaline Phosphatase Total Protein Albumin Globulin Albumin/Globulin Ratio Critical Care Progress Note - Nutrition Nutrition: Nutrition Category Date Time Status Liquid Diet [DIET] Diets 01/17/18 Breakfast Ordered Addendum Addendum: 01/17/18 14:51 ICU Attending Addendum: Patient seen and examined. Case reviewed on round with housestaff. Agree with resident note above with the following additions/exceptions: 82 F hx of HTN, CHF, ESRD on HD, DM2, and GI hx of diverticulosis / diverticulitis admitted to ICU for bright ed blood per rectum yesterday. Etiology unclear no bleeding scan neg no plan for scope by GI ?hemorroids HB stable hemodynamically stable Ok to transfer out of ICU Informed Dr. Ascencio rest of care above Cynthia Soto MD [employer]
--- NOTE | 2018-01-17 17:19 | CP.PCM.PN ---
<Micah Armenta - Last Filed: 01/17/18 17:16> Subjective - Date & Time of Evaluation Date of Evaluation: 01/17/18 Time of Evaluation: 08:45 - Subjective Subjective: GI progress Note for Dr. Theodore Patient seen and examined this AM. No acute events reported overnight. Patient is reported to have bloody bm yesterday PM. No abaominal complaints at this time. Objective - Vital Signs/Intake and Output Vital Signs (last 24 hours): Temp Pulse Resp BP Pulse Ox 98.2 F 83 78 H 148/88 100 01/17/18 12:00 01/17/18 13:50 01/17/18 13:50 01/17/18 09:01 01/17/18 13:50 Intake and Output: 01/17/18 01/17/18 06:59 18:59 Intake Total 850 Output Total 0 Balance 850 - Medications Medications: Current Medications Pantoprazole Sodium (Protonix Inj) 40 mg IVP DAILY RUTHANN Last Admin: 01/17/18 12:55 Dose: 40 mg Vancomycin HCl (Vancocin 25 Mg/Ml (Oral Use)) 250 mg PO QID RUTHANN; Protocol Stop: 01/25/18 18:01 Last Admin: 01/17/18 15:00 Dose: 250 mg - Labs Labs: 01/17/18 10:30 01/17/18 06:00 PT 12.9 SECONDS (9.4-12.5) H 01/15/18 21:20 INR 1.13 01/15/18 21:20 APTT 28.4 Seconds (25.1-36.5) 01/15/18 21:20 - Constitutional Appears: Non-toxic, Chronically Ill - Head Exam Head Exam: ATRAUMATIC, NORMOCEPHALIC - Eye Exam Eye Exam: EOMI, PERRL - ENT Exam ENT Exam: Mucous Membranes Moist - Respiratory Exam Respiratory Exam: Clear to Ausculation Bilateral, NORMAL BREATHING PATTERN - Cardiovascular Exam Cardiovascular Exam: REGULAR RHYTHM, +S1, +S2 - GI/Abdominal Exam GI & Abdominal Exam: Soft, Normal Bowel Sounds - Extremities Exam Extremities Exam: Full ROM - Neurological Exam Neurological Exam: Alert, Awake, Oriented x3 Neuro motor strength exam: Left Upper Extremity: 5, Right Upper Extremity: 5, Left Lower Extremity: 5, Right Lower Extremity: 5 - Psychiatric Exam Psychiatric exam: Normal Affect, Normal Mood - Skin Skin Exam: Dry, Intact Assessment and Plan - Assessment and Plan (Free Text) Assessment: 82 year old female with past medical history of ischemic disease, HTN, HDL, ESRD on HD, DM2, hx of diverticulosis, hx of diverticulitis and CHF who is admitted from [facility] with report of lower GI bleed Plan: Colitis likely secondary to c. difficile Lower GI Bleed Hx of Divertiulosis/Diverticulitis Hx of C. Diff CAD CHF- systolic HTN DM2 ESRD on HD - Possibly bleeding secondary to colitis - Repeat H/H is stable - Transfuse pRBC with goal Hgb >7 - Bleeding Scan is negative - Clear liquid diet - Consider discontinuation of merrem - No plan for endoscopy at this time - Further recommendations per Dr. Theodore <Ysabel Theodore V - Last Filed: 01/17/18 23:49> Objective - Vital Signs/Intake and Output Vital Signs (last 24 hours): Temp Pulse Resp BP Pulse Ox 98.2 F 83 78 H 148/88 100 01/17/18 12:00 01/17/18 13:50 01/17/18 13:50 01/17/18 09:01 01/17/18 13:50 Intake and Output: 01/17/18 01/18/18 18:59 06:59 Intake Total 350 Balance 350 - Medications Medications: Current Medications Pantoprazole Sodium (Protonix Inj) 40 mg IVP DAILY [facility] Last Admin: 01/17/18 12:55 Dose: 40 mg Vancomycin HCl (Vancocin 25 Mg/Ml (Oral Use)) 250 mg PO QID [facility]; Protocol Stop: 01/25/18 18:01 Last Admin: 01/17/18 22:28 Dose: 250 mg - Labs Labs: 01/17/18 10:30 01/17/18 06:00 PT 12.9 SECONDS (9.4-12.5) H 01/15/18 21:20 INR 1.13 01/15/18 21:20 APTT 28.4 Seconds (25.1-36.5) 01/15/18 21:20 Attending/Attestation - Attestation I have personally seen and examined this patient.: Yes I have fully participated in the care of the patient.: Yes I have reviewed all pertinent clinical information, including history, physical exam and plan: Yes Notes (Text): This is an addendum to GI followup report dictated by the Tile Roofer. The patient was seen and evaluated earlier. Medical records, lab studies, imagings were reviewed. Last 24 hours events reviewed. Agreed with the above treatment plan as outlined in Tile Roofer 's notes with the addition of the following Patient now transferred to ICU because of active GI bleeding in the floor Hb remains stable On examination she has mild tenderness in lower left quadrant area Would recommend stool for c.diff and followup hb No plan for endoscopy/colon evaluation now Would request CT no contrast of the abdomen and pelvis to further evaluate 01/17/18 23:49
--- NOTE | 2018-01-18 00:58 | PN ---
DATE: 01/17/2018 SUBJECTIVE: An 82-year-old female admitted to [facility] with the lower GI bleed, transferred to the intensive care unit where she could be monitored and receive dialysis. PHYSICAL EXAMINATION: GENERAL: She is alert, oriented x3. VITAL SIGNS: She has a temp of 98.2, her pulse is 61, blood pressure is 120/70. NECK: Supple. LUNGS: Show diminished breath sounds at the bases. HEART: In regular S1 S2 rhythm. ABDOMEN: Soft, scaphoid, positive bowel sounds. EXTREMITIES: No evidence of edema. LABORATORY DATA: Blood cultures of 24 hours are negative. Laboratory data shows a WBC of 7.9, RBC 2.77, hemoglobin 8.2, hematocrit 26.7, platelet count 146. Chemistry shows sodium 138, potassium 3.5, chloride 99, BUN of 18, creatinine of 2.4, calcium is 7.4. The patient had a bleeding scan performed, which is reported, showing no evidence of active bleeding. ASSESSMENT AND PLAN: She has been reported by the nurses of having no further rectal bleeding. Patient will continue her dialysis, being followed by Nephrology. She will be continued to be monitored because of her bradyarrhythmia history. She continues on her vancomycin for history of C. difficile, and continue current level of supportive care at this time. Shavonne Ascencio MD
[2018-01-18 08:25] LABS: BASO # 0.01 K/mm3 (0.0-2.0); BASO % 0.2 % (0.0-3.0); EOS % 0.2 % (1.5-5.0); GRAN # 3.52 (1.4-6.5); GRAN % 71.9 % (50.0-68.0); HEMOGLOBIN 7.1 g/dL (12.0-16.0); LYMPH % 21.2 % (22.0-35.0); MEAN CELL VOLUME 96.3 fl (80.0-105.0); MEAN CORPUSCULAR HEMOGLOBIN 29.3 pg (25.0-35.0); MEAN CORPUSCULAR HGB CONC 30.5 g/dl (31.0-37.0); MEAN PLATELET VOLUME 8.8 fl (7.0-11.0); MONO # 0.3 (0.1-0.6); MONO % 6.5 % (1.0-6.0); RBC 2.42 10^6/uL (3.5-6.1); RED CELL DISTRIBUTION WIDTH 17.2 % (11.5-14.5); WHITE BLOOD COUNT 4.9 10^3/ul (4.5-11.0)
[2018-01-18 08:37] LABS: ALB/GLOB RATIO 0.7 (1.1-1.8); ALBUMIN 2.5 g/dL (3.0-4.8); CALCIUM 7.5 mg/dL (8.4-10.5)
--- NOTE | 2018-01-18 09:06 | CT ---
Date of service: 01/18/2018 PROCEDURE: CT Abdomen and Pelvis without intravenous contrast HISTORY: evaluation of colitis, lower gi bleed COMPARISON: None. TECHNIQUE: Without contrast.. Contrast dose: Radiation dose: Total exam DLP = 408 mGy-cm. This CT exam was performed using one or more of the following dose reduction techniques: Automated exposure control, adjustment of the mA and/or kV according to patient size, and/or use of iterative reconstruction technique. FINDINGS: LOWER THORAX: Large bilateral pleural effusions and compressive atelectasis LIVER: Unremarkable. No gross lesion or ductal dilatation. GALLBLADDER AND BILE DUCTS: Small gallstone PANCREAS: Unremarkable. No gross lesion or ductal dilatation. SPLEEN: Unremarkable. ADRENALS: Unremarkable. No mass. KIDNEYS AND URETERS: Moderate atrophy of both kidneys VASCULATURE: Unremarkable. No aortic aneurysm. BOWEL: There is persistent mural thickening in the rectum consistent with colitis/proctitis. Perirectal inflammatory changes are also seen. Findings are unchanged APPENDIX: Unremarkable. Normal appendix. PERITONEUM: Unremarkable. No free fluid. No free air. LYMPH NODES: Unremarkable. No enlarged lymph nodes. BLADDER: Unremarkable. REPRODUCTIVE: Unremarkable. BONES: No acute fracture. OTHER FINDINGS: None. IMPRESSION: There is persistent mural thickening in the rectum consistent with colitis/proctitis. Perirectal inflammatory changes are also seen. Findings are unchanged Large bilateral pleural effusions and compressive atelectasis
[2018-01-18] MEDS: Vancomycin 25 MG/ML PO SCH ×4 (09:51→21:43)
--- NOTE | 2018-01-18 10:51 | CP.PCM.PN ---
<Alok Armentaophe - Last Filed: 01/18/18 16:13> Subjective - Date & Time of Evaluation Date of Evaluation: 01/18/18 Time of Evaluation: 10:48 - Subjective Subjective: GI PROGRESS NOTE - DR. THEODORE Patient seen and examined this AM. No acute events reported overnight. Continued reports of bloody bowel movements per nursing staff. Patient H/H has dropped, she is type and crossed. Objective - Vital Signs/Intake and Output Vital Signs (last 24 hours): Temp Pulse Resp BP Pulse Ox 97.6 F 78 20 134/51 L 100 01/18/18 06:00 01/18/18 06:00 01/18/18 06:00 01/18/18 06:00 01/18/18 06:00 Intake and Output: 01/18/18 01/18/18 06:59 18:59 Intake Total 120 Balance 120 - Medications Medications: Current Medications Pantoprazole Sodium (Protonix Inj) 40 mg IVP DAILY [facility] Last Admin: 01/18/18 09:51 Dose: 40 mg Vancomycin HCl (Vancocin 25 Mg/Ml (Oral Use)) 250 mg PO QID [facility]; Protocol Stop: 01/25/18 18:01 Last Admin: 01/18/18 09:51 Dose: 250 mg - Labs Labs: 01/18/18 08:00 01/18/18 08:00 PT 12.9 SECONDS (9.4-12.5) H 01/15/18 21:20 INR 1.13 01/15/18 21:20 APTT 28.4 Seconds (25.1-36.5) 01/15/18 21:20 - Constitutional Appears: No Acute Distress, Older Than Stated Age, Cachectic, Chronically Ill - Head Exam Head Exam: ATRAUMATIC, NORMAL INSPECTION, NORMOCEPHALIC - Eye Exam Eye Exam: EOMI, PERRL - ENT Exam ENT Exam: Mucous Membranes Moist - Respiratory Exam Respiratory Exam: Clear to Ausculation Bilateral, NORMAL BREATHING PATTERN - Cardiovascular Exam Cardiovascular Exam: REGULAR RHYTHM, +S1, +S2 - GI/Abdominal Exam GI & Abdominal Exam: Soft, Normal Bowel Sounds - Extremities Exam Extremities Exam: Calf Tenderness, Full ROM - Neurological Exam Neurological Exam: Alert, Awake, Oriented x3 - Psychiatric Exam Psychiatric exam: Normal Affect, Normal Mood - Skin Skin Exam: Dry, Intact Assessment and Plan - Assessment and Plan (Free Text) Assessment: 82 year old female with past medical history of ischemic disease, HTN, HDL, ESRD on HD, DM2, hx of diverticulosis, hx of diverticulitis and CHF who is [facility] from [facility] with report of lower GI bleed Plan: Colitis likely secondary to c. difficile Lower GI Bleed Hx of Divertiulosis/Diverticulitis Hx of C. Diff CAD CHF- systolic HTN DM2 ESRD on HD - Possibly bleeding secondary to colitis , ab/pelvis CT reviewed and appreciated - Repeat H/H shows decline, type and crossed 2 units - Transfuse pRBC with goal Hgb >7 - Bleeding Scan is negative - Clear liquid diet - No plan for endoscopy at this time - Further recommendations per Dr. Theodore <Ysabel Theodore V - Last Filed: 01/18/18 21:03> Objective - Vital Signs/Intake and Output Vital Signs (last 24 hours): Temp Pulse Resp BP Pulse Ox 97.4 F L 40 L 20 133/40 L 95 01/18/18 20:42 01/18/18 20:42 01/18/18 20:42 01/18/18 20:42 01/18/18 17:18 Intake and Output: 01/18/18 01/19/18 18:59 06:59 Intake Total 950 279 Balance 950 279 - Medications Medications: Current Medications Pantoprazole Sodium (Protonix Inj) 40 mg IVP DAILY [facility] Last Admin: 01/18/18 09:51 Dose: 40 mg Vancomycin HCl (Vancocin 25 Mg/Ml (Oral Use)) 250 mg PO QID [facility]; Protocol Stop: 01/25/18 18:01 Last Admin: 01/18/18 17:02 Dose: 250 mg - Labs Labs: 01/18/18 08:00 01/18/18 08:00 PT 12.9 SECONDS (9.4-12.5) H 01/15/18 21:20 INR 1.13 01/15/18 21:20 APTT 28.4 Seconds (25.1-36.5) 01/15/18 21:20 Attending/Attestation - Attestation I have personally seen and examined this patient.: Yes I have fully participated in the care of the patient.: Yes I have reviewed all pertinent clinical information, including history, physical exam and plan: Yes Notes (Text): This is an addendum to GI followup report dictated by the Crepe Machine Operator. The patient was seen and evaluated earlier. Medical records, lab studies, imagings were reviewed. Last 24 hours events reviewed. Agreed with the above treatment plan as outlined in Crepe Machine Operator 's notes with the addition of the following This patient denies any abdominal pain History of small amounts of bright red blood per rectum Bleeding scan done earlier was negative CT was reviewed again which showed significant thickening of the rectum extending up to sigmoid Stool for c.diff positive before On examination abdomen soft non tender The most likely cause of bleeding is from proctosigmoiditis In view of the extent of the inflammation, and local severity it is reasonable to add IV flagyl 500 q8 in addition to PO vancomycin We will discuss with ID 01/18/18 21:03
--- NOTE | 2018-01-18 13:25 | CP.PCM.PN ---
Subjective - Date & Time of Evaluation Date of Evaluation: 01/18/18 Time of Evaluation: 08:55 - Subjective Subjective: No fevers, not in distress, no abdominal pain, diarrhea is improved. No blood in the stool currently. Objective - Vital Signs/Intake and Output Vital Signs (last 24 hours): Temp Pulse Resp BP Pulse Ox 97.6 F 78 20 134/51 L 100 01/18/18 06:00 01/18/18 06:00 01/18/18 06:00 01/18/18 06:00 01/18/18 06:00 Intake and Output: 01/18/18 01/18/18 06:59 18:59 Intake Total 120 Balance 120 - Medications Medications: Current Medications Pantoprazole Sodium (Protonix Inj) [address] [facility] Last Admin: 01/18/18 09:51 Dose: 40 mg Vancomycin HCl (Vancocin 25 Mg/Ml (Oral Use)) 250 mg PO QID [facility]; Protocol Stop: 01/25/18 18:01 Last Admin: 01/18/18 09:51 Dose: 250 mg - Labs Labs: 01/18/18 08:00 01/18/18 08:00 PT 12.9 SECONDS (9.4-12.5) H 01/15/18 21:20 INR 1.13 01/15/18 21:20 APTT 28.4 Seconds (25.1-36.5) 01/15/18 21:20 - Constitutional Appears: Cachectic, Chronically Ill - Head Exam Head Exam: NORMAL INSPECTION - Neck Exam Neck Exam: absent: Meningismus - Respiratory Exam Respiratory Exam: Decreased Breath Sounds - Cardiovascular Exam Cardiovascular Exam: +S1, +S2 - GI/Abdominal Exam GI & Abdominal Exam: Soft. absent: Tenderness Assessment and Plan - Assessment and Plan (Free Text) Plan: Assessment c. diff. associated diarrhea, clinically improving lower GI bleed, etiology to be determined history of systemic inflammatory response syndrome with encephalopathy, R/O CO2 narcosis with fluid overload, S/P treatment for severe sepsis from HCAP history of left perineal abscess S/P I and D, grew MRSA and Klebsiella - now still with residual skin and skin structure infection, growing MSSA and E. coli history of sepsis due to E. 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 diff. associated diarrhea S/P severe sepsis with acute sigmoid diverticulitis and acute cholecystitis history of acute NSTEMI history of sepsis due to acute descending colon diverticulitis and bilateral lobe healthcare-associated pneumonia history of healthcare-associated pneumonia (right upper lobe, bilateral lower lobes) HTN DM CAD with chronic CHF ESRD on HD Plan continue PO Vancomycin day 9 to complete 10-14 days of antibiotics - stool for C. diff. is positive (antigen only, not toxin) overall prognosis is poor patient is DNR and DNI follow up further recommendations and plans of GI
--- NOTE | 2018-01-18 14:30 | PN ---
DATE: 01/18/2018 SUBJECTIVE: An 82-year-old female on dialysis 3 times a week. Nursing staff relates that the patient is still passing bright red blood per rectum with bowel movements. PHYSICAL EXAMINATION VITAL SIGNS: This morning showed a temperature of 97.6, pulse of 78, blood pressure is 134/51, respiratory rate is 20. GENERAL: The patient is alert and oriented. NECK: Supple. LUNGS: Show diminished breath sounds with dullness at the bases. HEART: S1 and S2 rhythm. ABDOMEN: Soft, scaphoid. Positive bowel sounds. EXTREMITIES: No evidence of edema. LABORATORY DATA: Shows a WBC of 4.9, RBC 2.42, hemoglobin 7.1, hematocrit 23.3, platelet count is 157. Chemistry shows a sodium of 137, potassium 4, chloride 99, BUN of 24, creatinine of 3.2, random blood sugar is 121. ASSESSMENT: 1. Rectal bleeding. 2. Suspected colitis. 3. History of Clostridium difficile, on vancomycin. 4. Anemia. 5. Chronic renal disease. 6. Chronic anemia with acute blood loss. 7. Atrial fibrillation, paroxysmal. 8. Arteriosclerotic heart disease. 9. Non-ST myocardial infarction history. 10. Bilateral pleural effusions. 11. History of congestive heart failure. PLAN: The patient is scheduled for dialysis today. We will review with Renal about transfusing the patient during dialysis. We will continue to monitor the patient's labs closely. Nurses have been instructed to monitor the patient's bowel movements in any evidence of bleeding and also, we will need to review the case with GI. She continues to be following by Neurology and Infectious Disease. Shavonne Ascencio MD
[2018-01-19] MEDS ORDERED: Levalbuterol 0.63 MG/3 ML Inhal Soln UD IH STA (04:03)
[2018-01-19 06:45] LABS: GRAN # 4.14 (1.4-6.5); HEMOGLOBIN 10.5 g/dL (12.0-16.0); LYMPH # 1.1 (1.2-3.4); LYMPH % 18.5 % (22.0-35.0); MEAN CELL VOLUME 95.1 fl (80.0-105.0); MEAN CORPUSCULAR HEMOGLOBIN 30.3 pg (25.0-35.0); MEAN CORPUSCULAR HGB CONC 31.8 g/dl (31.0-37.0); MEAN PLATELET VOLUME 8.9 fl (7.0-11.0); MONO # 0.6 (0.1-0.6); MONO % 10.5 % (1.0-6.0); RBC 3.47 10^6/uL (3.5-6.1); RED CELL DISTRIBUTION WIDTH 17.1 % (11.5-14.5); WHITE BLOOD COUNT 5.8 10^3/ul (4.5-11.0)
[2018-01-19 07:25] LABS: ALB/GLOB RATIO 0.7 (1.1-1.8); ALBUMIN 2.7 g/dL (3.0-4.8); CALCIUM 7.3 mg/dL (8.4-10.5)
--- NOTE | 2018-01-19 08:52 | PN ---
DATE: 01/19/2018 SUBJECTIVE: The patient is currently seen on 3R. She is lying comfortable in bed. She reports no further GI bleeding. She is status post receiving a total of 7 units of packed red blood cells for lower GI bleed. The patient had a negative bleeding scan. At present, there are no plans for a sigmoidoscopy or colonoscopy. MEDICATIONS: Medication list reviewed. The patient is currently on Protonix and oral vancomycin. OBJECTIVE: INTAKE AND OUTPUT: Intake 2369, output hemodialysis. VITAL SIGNS: Blood pressure 124/43, temperature 98.5, respiratory rate is 20 with a pulse of 41. HEENT: Exam shows her to be normocephalic, atraumatic. Conjunctivae are pink. Sclerae are nonicteric. NECK: Supple. No neck vein distention. CHEST: Clear to auscultation and percussion. No rales, rhonchi or wheezing. CARDIOVASCULAR: Shows a regular rate and rhythm with MR/TR. No S3, no S4, no rub. ABDOMEN: Soft. Bowel sounds normal. No rebound, guarding or masses. No left lower quadrant tenderness on palpation. EXTREMITIES: Show no lower extremity edema. Positive left upper extremity AV fistula. LABORATORY DATA AND IMAGING: CBC: White blood cell count today 5.8, hemoglobin post transfusion is up to 10.5. Platelet count is normal at 125,000. Chemistry showed normal chemistries. BUN today 15 with a creatinine of 2.1, this is with her having had dialysis yesterday. Glucose is 122. Calcium 7.3 with an albumin of 2.7. Calcium corrects to 8.3. Phosphorus level is normal at 4.1. The patient is currently not receiving binders. Magnesium level is 1.8. Liver enzymes are normal. Microbiology, all cultures are negative at 48 hours. ASSESSMENT: 1. End-stage renal disease. The patient will continue routine Sunday, Sunday, Sunday dialysis. Her next dialysis is scheduled for 01/21/2018. The patient will receive heparin free dialysis. The patient will be transfused on dialysis as necessary. 2. History of lower gastrointestinal bleeding, rectal bleeding. Negative bleeding scan. The patient seen by GI, felt to have possible proctitis with sigmoiditis. She remains on oral vancomycin therapy. There are no plans at present for a sigmoidoscopy or colonoscopy. 3. History of congestive heart failure, cardiomyopathy, low ejection fraction 25%. This appears to be stable. 4. History of hypertension. The patient is normotensive to hypotensive off medications. 5. History of [id number] diabetes mellitus. Glucose control is excellent. 6. Past history of pseudomembranous colitis. 7. History of pulmonary hypertension, stable. 8. History of secondary hyperparathyroidism. Calcium and phosphorus levels are acceptable. The patient is presently off binder therapy. PLAN: 1. Continue to monitor hemoglobin closely and transfuse on dialysis accordingly. 2. No dialysis treatments to be given with heparin. 3. Hold all blood pressure medications. 4. Close GI followup. 5. Discussed with Dr. Ascencio. Buck Yanes MD
--- NOTE | 2018-01-19 10:18 | PN ---
DATE: 01/18/2018 SUBJECTIVE: The patient is seen in the dialysis unit. She is awake. She is alert. She complains of back pain. She complains of dizziness. She denies any chest pain. She denies any shortness of breath. PHYSICAL EXAMINATION: GENERAL: Elderly lady seen in the dialysis unit. VITAL SIGNS: Blood pressure 134/51, heart rate 50, respiratory rate 20, temperature 97.4. HEENT: Normocephalic, atraumatic, positive pallor. NECK: Supple, no JVD. LUNGS: Bilateral equal air entry, bilateral equal expansion. CARDIAC: S1 and S2, regular rate and rhythm, no murmur, no rub. ABDOMEN: Soft, nondistended, nontender, bowel sounds present. EXTREMITIES: No lower extremity edema. INTAKE AND OUTPUT: Not charted. LABORATORY DATA: WBC 4.9, hemoglobin 7.1, hematocrit 23, platelets 157. Sodium 137, potassium 4, chloride 99, CO2 of 29, BUN 24, creatinine 3.2, glucose 121, calcium 7.5, phosphorus 4.8, magnesium 2. Blood cultures, no growth. Bleeding scan, no evidence of bleeding. MEDICATIONS: Protonix, vancomycin p.o. 250 four times daily. ASSESSMENT AND PLAN: 1. Rectal bleeding,? source, history of diverticulosis. 2. Significant anemia, hemoglobin has dropped from 9 to 7.3. 3. Non-insulin dependent diabetes mellitus. 4. Hypertension. 5. Coronary artery disease, paroxysmal atrial fibrillation, congestive heart failure. 5. Gastrointestinal blood loss. PLAN 1. Transfuse 2 units of blood during dialysis. 2. GI followup. 3. Continue p.o. vancomycin for recent C. diff colitis. Barbi Linares MD
[2018-01-19] MEDS: Vancomycin 25 MG/ML PO SCH ×4 (11:20→21:44)
--- NOTE | 2018-01-19 13:30 | CP.PCM.PN ---
<Juan Carlos Ortez - Last Filed: 01/19/18 13:31> Subjective - Date & Time of Evaluation Date of Evaluation: 01/19/18 Time of Evaluation: 13:24 - Subjective Subjective: Patient is doing well. Tolerating liquid diet. BMs have decreased. 2units pRBCs yesterday. Hb went from 7 to 10.5. Objective - Vital Signs/Intake and Output Vital Signs (last 24 hours): Temp Pulse Resp BP Pulse Ox 99.6 F 41 L 22 134/40 L 99 01/19/18 08:53 01/19/18 08:53 01/19/18 08:53 01/19/18 08:53 01/19/18 08:53 Intake and Output: 01/19/18 01/19/18 06:59 18:59 Intake Total 1419 Balance 1419 - Medications Medications: Current Medications Pantoprazole Sodium (Protonix Inj) 40 mg IVP DAILY [facility] Last Admin: 01/19/18 11:27 Dose: 40 mg Vancomycin HCl (Vancocin 25 Mg/Ml (Oral Use)) 250 mg PO QID [facility]; Protocol Stop: 01/25/18 18:01 Last Admin: 01/19/18 11:20 Dose: 250 mg - Labs Labs: 01/19/18 06:00 01/19/18 06:00 PT 12.9 SECONDS (9.4-12.5) H 01/15/18 21:20 INR 1.13 01/15/18 21:20 APTT 28.4 Seconds (25.1-36.5) 01/15/18 21:20 - Constitutional Appears: Non-toxic, No Acute Distress, Chronically Ill - Head Exam Head Exam: NORMAL INSPECTION - ENT Exam ENT Exam: Mucous Membranes Moist - Respiratory Exam Respiratory Exam: Clear to Ausculation Bilateral, NORMAL BREATHING PATTERN - Cardiovascular Exam Cardiovascular Exam: +S1, +S2 - GI/Abdominal Exam GI & Abdominal Exam: Soft, Normal Bowel Sounds. absent: Tenderness - Extremities Exam Extremities Exam: Normal Inspection - Neurological Exam Neurological Exam: Alert, Awake, CN II-XII Intact - Psychiatric Exam Psychiatric exam: Normal Affect, Normal Mood - Skin Skin Exam: Dry, Intact Assessment and Plan - Assessment and Plan (Free Text) Assessment: 82 year old female with past medical history of ischemic disease, HTN, HDL, ESRD on HD, DM2, hx of diverticulosis, hx of diverticulitis and CHF who is admitted from assisted with report of lower GI bleed Plan: Colitis likely secondary to c. difficile Lower GI Bleed Hx of Divertiulosis/Diverticulitis Hx of C. Diff CAD CHF- systolic HTN DM2 ESRD on HD - Possibly bleeding secondary to colitis , ab/pelvis CT reviewed and appreciated - s/p 2 units pRBCs 01/18/18. Continue to monitor Hb. - Transfuse pRBC with goal Hgb >7 - Bleeding Scan is negative - Full liquid diet - No plan for endoscopy at this time <Ysabel Theodore V - Last Filed: 01/19/18 20:52> Objective - Vital Signs/Intake and Output Vital Signs (last 24 hours): Temp Pulse Resp BP Pulse Ox 98.2 F 56 L 18 135/45 L 99 01/19/18 16:25 01/19/18 16:25 01/19/18 16:25 01/19/18 16:25 01/19/18 16:25 Intake and Output: 01/19/18 01/20/18 18:59 06:59 Intake Total 1140 Output Total 1 Balance 1139 - Medications Medications: Current Medications Metronidazole (Flagyl) 500 mg in 100 mls @ 100 mls/hr IVPB Q8 [facility]; Protocol Pantoprazole Sodium (Protonix Inj) 40 mg IVP DAILY [facility] Last Admin: 01/19/18 11:27 Dose: 40 mg Vancomycin HCl (Vancocin 25 Mg/Ml (Oral Use)) 125 mg PO QID [facility]; Protocol Last Admin: 01/19/18 18:13 Dose: 125 mg - Labs Labs: 01/19/18 06:00 01/19/18 06:00 PT 12.9 SECONDS (9.4-12.5) H 01/15/18 21:20 INR 1.13 01/15/18 21:20 APTT 28.4 Seconds (25.1-36.5) 01/15/18 21:20 Attending/Attestation - Attestation I have personally seen and examined this patient.: Yes I have fully participated in the care of the patient.: Yes I have reviewed all pertinent clinical information, including history, physical exam and plan: Yes Notes (Text): This is an addendum to GI progress report dictated by the GI Fellow.The patient was seen and examined earlier. Medical records, lab studies, imagings were reviewed. Last 24 hours events reviewed. Agreed with the above treatment plan as outlined in GI Fellow 's notes with the addition of the following Discussed with ID Will add IV flagyl in addition to PO vanco for this unfortunate lady with N stage renal disease on hemodialysis Severe c.diff colitis involving mainly rectum 01/19/18 20:52
--- NOTE | 2018-01-19 16:36 | CP.PCM.PN ---
Subjective - Date & Time of Evaluation Date of Evaluation: 01/19/18 Time of Evaluation: 13:30 - Subjective Subjective: No diarrhea, no fevers. Objective - Vital Signs/Intake and Output Vital Signs (last 24 hours): Temp Pulse Resp BP Pulse Ox 99.6 F 41 L 22 134/40 L 99 01/19/18 08:53 01/19/18 08:53 01/19/18 08:53 01/19/18 08:53 01/19/18 08:53 Intake and Output: 01/19/18 01/19/18 06:59 18:59 Intake Total 1419 Balance 1419 - Medications Medications: Current Medications Pantoprazole Sodium (Protonix Inj) 40 mg IVP DAILY [facility] Last Admin: 01/19/18 11:27 Dose: 40 mg Vancomycin HCl (Vancocin 25 Mg/Ml (Oral Use)) 250 mg PO QID [facility]; Protocol Stop: 01/25/18 18:01 Last Admin: 01/19/18 11:20 Dose: 250 mg - Labs Labs: 01/19/18 06:00 01/19/18 06:00 PT 12.9 SECONDS (9.4-12.5) H 01/15/18 21:20 INR 1.13 01/15/18 21:20 APTT 28.4 Seconds (25.1-36.5) 01/15/18 21:20 - Constitutional Appears: Chronically Ill - Head Exam Head Exam: NORMAL INSPECTION - Respiratory Exam Respiratory Exam: Decreased Breath Sounds - Cardiovascular Exam Cardiovascular Exam: +S1, +S2 - GI/Abdominal Exam GI & Abdominal Exam: Soft. absent: Tenderness Assessment and Plan - Assessment and Plan (Free Text) Plan: Assessment c. diff. associated diarrhea, clinically improving lower GI bleed, etiology to be determined history of systemic inflammatory response syndrome with encephalopathy, R/O CO2 narcosis with fluid overload, S/P treatment for severe sepsis from HCAP history of left perineal abscess S/P I and D, grew MRSA and Klebsiella - now still with residual skin and skin structure infection, growing MSSA and E. coli history of sepsis due to E. 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 diff. associated diarrhea S/P severe sepsis with acute sigmoid diverticulitis and acute cholecystitis history of acute NSTEMI history of sepsis due to acute descending colon diverticulitis and bilateral lobe healthcare-associated pneumonia history of healthcare-associated pneumonia (right upper lobe, bilateral lower lobes) HTN DM CAD with chronic CHF ESRD on HD Plan continue PO Vancomycin day 10 to complete 10-14 days of antibiotics - stool for C. diff. is positive (antigen only, not toxin) overall prognosis is poor patient is DNR and DNI follow up further recommendations and plans of GI
--- NOTE | 2018-01-19 17:08 | PN ---
DATE: 01/19/2018 SUBJECTIVE: An 82-year-old female on dialysis three times a week with a history of GI bleed and positive C. diff history and presumptive colitis, status post transfusion of 2 units of packed red blood cells. PHYSICAL EXAMINATION: VITAL SIGNS: Show a temperature of 99.6 orally, her pulse is 41, blood pressure is 134/40. LUNGS: Show bibasilar rales with rhonchi. HEART: S1, S2 rhythm. ABDOMEN: Soft with positive bowel sounds. EXTREMITIES: No evidence of edema. LABORATORY DATA: Showed WBC of 5.8, RBC 8.47, hemoglobin 10.5, hematocrit 33, and platelet count is 125. Chemistry shows a sodium of 136, potassium 3.6, chloride 99. The BUN is 15, creatinine is 2.1. Random blood sugar is 122. The patient is currently receiving dialysis. She is on Protonix IV for GI prophylaxis and vancomycin p.o. for her C. diff. She is being followed by Infectious Disease, Renal, and GI. We will continue the current level of supportive care. Follow up the patient's labs post transfusion. She has a living will. She is a DNR/DNI. Shavonne Ascencio MD
[2018-01-19] MEDS: metroNIDAZOLE IV 500 mg/100 ml 500 MG/100 ML BAG IVPB SCH (21:44)
[2018-01-20] MEDS: metroNIDAZOLE IV 500 mg/100 ml 500 MG/100 ML BAG IVPB SCH ×3 (05:24→21:51)
[2018-01-20 07:11] LABS: BASO # 0.01 K/mm3 (0.0-2.0); BASO % 0.2 % (0.0-3.0); EOS % 0.5 % (1.5-5.0); GRAN # 4.17 (1.4-6.5); GRAN % 73.7 % (50.0-68.0); HEMOGLOBIN 10.3 g/dL (12.0-16.0); LYMPH # 1.1 (1.2-3.4); LYMPH % 19.1 % (22.0-35.0); MEAN CELL VOLUME 96.3 fl (80.0-105.0); MEAN CORPUSCULAR HEMOGLOBIN 29.7 pg (25.0-35.0); MEAN CORPUSCULAR HGB CONC 30.8 g/dl (31.0-37.0); MEAN PLATELET VOLUME 8.6 fl (7.0-11.0); MONO # 0.4 (0.1-0.6); MONO % 6.5 % (1.0-6.0); RBC 3.47 10^6/uL (3.5-6.1); RED CELL DISTRIBUTION WIDTH 17.1 % (11.5-14.5); WHITE BLOOD COUNT 5.7 10^3/ul (4.5-11.0)
[2018-01-20 07:48] LABS: ALB/GLOB RATIO 0.7 (1.1-1.8); ALBUMIN 2.5 g/dL (3.0-4.8); CALCIUM 7.2 mg/dL (8.4-10.5)
[2018-01-20] MEDS: Vancomycin 25 MG/ML PO SCH ×4 (09:40→21:51)
--- NOTE | 2018-01-20 12:49 | PN ---
DATE: 01/20/2018 SUBJECTIVE: The patient is currently seen sitting up in bed on 3R. According to the nursing staff and the patient, she had two bloody bowel movements last night. Her hemoglobin is remaining stable at 10.3 this morning. She has received a total of 7 units of packed red blood cells. She had a negative bleeding scan. She is being treated for possible pseudomembranous colitis with oral antibiotic therapy, vancomycin and IV Flagyl. At present, there are no plans for a sigmoidoscopy or colonoscopy. MEDICATIONS: Medication list reviewed. The patient is on Flagyl, Protonix, and vancomycin. PHYSICAL EXAMINATION: INTAKE AND OUTPUT: Intake is 1460, output is not charted. VITAL SIGNS: Blood pressure 129/50, temperature 98, respiratory rate 20 with a pulse of 78, pulse ox is 100%. HEENT: Shows her to be normocephalic, atraumatic. Conjunctivae remain pink. Sclerae are nonicteric. NECK: Supple. No neck vein distention. CHEST: Clear to auscultation and percussion with no rales, rhonchi, or wheezing. CARDIOVASCULAR: Shows a regular rate and rhythm with MR/TR. No S3, no S4, no rub. ABDOMEN: Soft. Bowel sounds normal. No rebound, guarding, or masses. No left lower quadrant tenderness on palpation. EXTREMITIES: Show no lower extremity edema. She does have an AV fistula, left upper extremity. Positive thrill. Positive bruit. LABORATORY DATA AND IMAGING: CBC today: White blood cell count 5.7, hemoglobin 10.3 with a platelet count of 106,000. Chemistry showed normal electrolytes today, BUN 21 with a creatinine of 3. Calcium is 7.2 with an albumin of 2.5, corrects to 8.4. Phosphorus 4.9. Magnesium 1.8. Liver enzymes are normal. Albumin is 2.5. Microbiology, blood cultures are negative at 3 days. As per Infectious Disease note, the patient did have a positive antigen for C. diff but negative toxin. ASSESSMENT: 1. End-stage renal disease. The patient will continue Sunday, Sunday, Sunday dialysis. Next dialysis is scheduled for tomorrow, 01/21/2018. She will continue receiving no heparin in dialysis because of her gastrointestinal bleeding. 2. History of lower gastrointestinal tract bleeding with possible proctitis/sigmoiditis. Possible pseudomembranous colitis. She will continue on oral vancomycin and IV Flagyl therapy under the guidance of GI and Infectious Disease. No plans for colonoscopy or sigmoidoscopy at this point in time. 3. History of congestive heart failure with valvular heart disease, ejection fraction was low at 25%. Hemodynamics appeared to be stable. 4. History of hypertension. She is normotensive on blood pressure medication. 5. History of dlv-vuttxzw-vbzokunru diabetes mellitus. Glucose control is excellent. 6. History of pseudomembranous colitis with possible recurrence. The patient will continue Flagyl and vancomycin therapy as noted above. 7. History of pulmonary hypertension, stable. 8. History of secondary hyperparathyroidism, currently stable. Phosphorus is trending higher. I will restart the patient on binder therapy, will start PhosLo 667 mg three times a day with meals. 9. Do not resuscitate/do not intubated noted. PLAN: 1, Hemodialysis tomorrow. No heparin. 2. Continue GI and ID followup. 3. Restart binder therapy and continue all dietary restrictions. 4. Continue to monitor hemoglobin closely in light of her continued GI bleeding. Buck Yanes MD
--- NOTE | 2018-01-20 13:17 | RAD ---
Date of service: 01/20/2018 HISTORY: shortness of breath COMPARISON: 01/15/2018 FINDINGS: LUNGS: Vascular congestion with perihilar edema PLEURA: Moderate to large bilateral pleural effusions. CARDIOVASCULAR: Cardiomegaly OSSEOUS STRUCTURES: No significant abnormalities. VISUALIZED UPPER ABDOMEN: Normal. OTHER FINDINGS: None. IMPRESSION: Vascular congestion with perihilar edema and moderate to large bilateral pleural effusions. Findings are unchanged
--- NOTE | 2018-01-20 13:45 | CP.PCM.PN ---
<Juan Carlos Ortez - Last Filed: 01/20/18 13:41> Subjective - Date & Time of Evaluation Date of Evaluation: 01/20/18 Time of Evaluation: 13:42 - Subjective Subjective: Complains of SOB. Discussed with nursing to have chest Xray. She had 2 formed, bloody BM last night. Objective - Vital Signs/Intake and Output Vital Signs (last 24 hours): Temp Pulse Resp BP Pulse Ox 98 F 78 20 129/50 L 100 01/20/18 08:43 01/20/18 08:43 01/20/18 08:43 01/20/18 08:43 01/20/18 08:43 Intake and Output: 01/20/18 01/20/18 06:59 18:59 Intake Total 320 Balance 320 - Medications Medications: Current Medications Calcium Acetate (Phoslo) 667 mg PO WM [facility] Metronidazole (Flagyl) 500 mg in 100 mls @ 100 mls/hr IVPB Q8 [facility]; Protocol Last Admin: 01/20/18 05:24 Dose: 100 mls/hr Pantoprazole Sodium (Protonix Inj) 40 mg IVP DAILY [facility] Last Admin: 01/20/18 09:42 Dose: 40 mg Vancomycin HCl (Vancocin 25 Mg/Ml (Oral Use)) 125 mg PO QID [facility]; Protocol Last Admin: 01/20/18 09:40 Dose: 25 mg - Labs Labs: 01/20/18 06:30 01/20/18 06:30 PT 12.9 SECONDS (9.4-12.5) H 01/15/18 21:20 INR 1.13 01/15/18 21:20 APTT 28.4 Seconds (25.1-36.5) 01/15/18 21:20 - Constitutional Appears: No Acute Distress - Head Exam Head Exam: NORMAL INSPECTION - ENT Exam ENT Exam: Mucous Membranes Moist - Neck Exam Neck Exam: Normal Inspection - Respiratory Exam Respiratory Exam: Rales. absent: Respiratory Distress, NORMAL BREATHING PATTERN - Cardiovascular Exam Cardiovascular Exam: REGULAR RHYTHM, +S1, +S2 - GI/Abdominal Exam GI & Abdominal Exam: Soft, Normal Bowel Sounds. absent: Tenderness - Extremities Exam Extremities Exam: Normal Inspection - Psychiatric Exam Psychiatric exam: Normal Affect, Normal Mood - Skin Skin Exam: Dry, Intact Assessment and Plan - Assessment and Plan (Free Text) Assessment: 82 year old female with past medical history of ischemic disease, HTN, HDL, ESRD on HD, DM2, hx of diverticulosis, hx of diverticulitis and CHF who is admitted from longterm with report of lower GI bleed Plan: Colitis likely secondary to c. difficile Lower GI Bleed Hx of Divertiulosis/Diverticulitis Hx of C. Diff CAD CHF- systolic HTN DM2 ESRD on HD SOB - Possibly bleeding secondary to colitis , ab/pelvis CT reviewed and appreciated - s/p 2 units pRBCs 01/18/18. Continue to monitor Hb. - Transfuse pRBC with goal Hgb >7 - Bleeding Scan is negative - Full liquid diet - No plan for endoscopy at this time - Chest xray for SOB and crackles on exam, defer to primary for further management. <Ysabel Theodore V - Last Filed: 01/20/18 21:30> Objective - Vital Signs/Intake and Output Vital Signs (last 24 hours): Temp Pulse Resp BP Pulse Ox 97.6 F 76 20 130/81 93 L 01/20/18 17:06 01/20/18 17:06 01/20/18 17:06 01/20/18 17:06 01/20/18 17:06 Intake and Output: 01/20/18 01/21/18 18:59 06:59 Intake Total 960 Balance 960 - Medications Medications: Current Medications Calcium Acetate (Phoslo) 667 mg PO WM [facility] Last Admin: 01/20/18 17:55 Dose: 667 mg Metronidazole (Flagyl) 500 mg in 100 mls @ 100 mls/hr IVPB Q8 [facility]; Protocol Last Admin: 01/20/18 15:21 Dose: 100 mls/hr Pantoprazole Sodium (Protonix Inj) 40 mg IVP DAILY [facility] Last Admin: 01/20/18 09:42 Dose: 40 mg Vancomycin HCl (Vancocin 25 Mg/Ml (Oral Use)) 125 mg PO QID [facility]; Protocol Last Admin: 01/20/18 17:41 Dose: 25 mg - Labs Labs: 01/20/18 06:30 01/20/18 06:30 PT 12.9 SECONDS (9.4-12.5) H 01/15/18 21:20 INR 1.13 01/15/18 21:20 APTT 28.4 Seconds (25.1-36.5) 01/15/18 21:20 Attending/Attestation - Attestation I have personally seen and examined this patient.: Yes I have fully participated in the care of the patient.: Yes I have reviewed all pertinent clinical information, including history, physical exam and plan: Yes Notes (Text): This is an addendum to GI progress report dictated by the GI Fellow.The patient was seen and examined earlier. Medical records, lab studies, imagings were reviewed. Last 24 hours events reviewed. Agreed with the above treatment plan as outlined in GI Fellow 's notes with the addition of the following Patient is on PO vanco and IV flagyl On liquid diet No significant bleeding per rectum Followup HCT 01/20/18 21:29
--- NOTE | 2018-01-20 14:25 | PN ---
DATE: 01/20/2018 SUBJECTIVE: An 82-year-old female resting in bed this morning. Nursing staff relates that there were no problems during the night. PHYSICAL EXAMINATION: VITAL SIGNS: Her temperature is 98, her blood pressure is 129/50, her pulse is 78, her respiratory rate is 20. GENERAL: She is alert and oriented. NECK: Supple. LUNGS: Show diminished breath sounds at the bases with rhonchi. HEART: Has an S1, S2 irregular rhythm. ABDOMEN: Soft with positive bowel sounds. EXTREMITIES: Show evidence of edema. LABORATORY DATA: Shows a WBC of 5.7, RBC 3.47, hemoglobin 10.3, hematocrit 33.4, platelet count is 106. Chemistry shows normal electrolytes. Her BUN is 21 and creatinine is 3. The phosphorus is 4.9. Magnesium is 1.8. The albumin is 2.5. The patient has been placed on IV Flagyl by GI in conjunction with p.o. vancomycin by Infectious Disease to treat C. difficile affecting mainly the rectum. She has had bloody bowel movements, presumably secondary to the C. diff infection and local colitis and she is status post 2 units of packed red blood cells. She continues on her PhosLo and her Protonix at this time. She has episodes of bradyarrhythmia. Cardiology has recommended conservative management. She has a history of kym-imlksag-morspryin diabetes. Her sugar is 102, was 98 this morning. She has a known history of valvular heart disease, non-ST myocardial infarctions, congestive heart failure, bilateral pleural effusions, chronic dialysis, chronic renal failure, chronic anemia, hyperlipidemia. Continue current level of supportive care. She has a living will. She is a DNR/DNI. Shavonne Ascencio MD
--- NOTE | 2018-01-20 15:02 | CP.PCM.PN ---
Subjective - Date & Time of Evaluation Date of Evaluation: 01/20/18 Time of Evaluation: 11:00 - Subjective Subjective: Comfortable in bed, no fevers, not in distress. No diarrhea currently. Objective - Vital Signs/Intake and Output Vital Signs (last 24 hours): Temp Pulse Resp BP Pulse Ox 98 F 78 20 129/50 L 100 01/20/18 08:43 01/20/18 08:43 01/20/18 08:43 01/20/18 08:43 01/20/18 08:43 Intake and Output: 01/20/18 01/20/18 06:59 18:59 Intake Total 320 Balance 320 - Medications Medications: Current Medications Metronidazole (Flagyl) 500 mg in 100 mls @ 100 mls/hr IVPB Q8 [facility]; Protocol Last Admin: 01/20/18 05:24 Dose: 100 mls/hr Pantoprazole Sodium (Protonix Inj) 40 mg IVP DAILY [facility] Last Admin: 01/19/18 11:27 Dose: 40 mg Vancomycin HCl (Vancocin 25 Mg/Ml (Oral Use)) 125 mg PO QID [facility]; Protocol Last Admin: 01/19/18 21:44 Dose: 125 mg - Labs Labs: 01/20/18 06:30 01/20/18 06:30 PT 12.9 SECONDS (9.4-12.5) H 01/15/18 21:20 INR 1.13 01/15/18 21:20 APTT 28.4 Seconds (25.1-36.5) 01/15/18 21:20 - Constitutional Appears: Chronically Ill - Head Exam Head Exam: NORMAL INSPECTION - Respiratory Exam Respiratory Exam: Decreased Breath Sounds - Cardiovascular Exam Cardiovascular Exam: +S1, +S2 - GI/Abdominal Exam GI & Abdominal Exam: Soft. absent: Tenderness Assessment and Plan - Assessment and Plan (Free Text) Plan: Assessment c. diff. associated diarrhea, clinically improving lower GI bleed, etiology to be determined history of systemic inflammatory response syndrome with encephalopathy, R/O CO2 narcosis with fluid overload, S/P treatment for severe sepsis from HCAP history of left perineal abscess S/P I and D, grew MRSA and Klebsiella - now still with residual skin and skin structure infection, growing MSSA and E. coli history of sepsis due to E. 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 diff. associated diarrhea S/P severe sepsis with acute sigmoid diverticulitis and acute cholecystitis history of acute NSTEMI history of sepsis due to acute descending colon diverticulitis and bilateral lobe healthcare-associated pneumonia history of healthcare-associated pneumonia (right upper lobe, bilateral lower lo bes) HTN DM CAD with chronic CHF ESRD on HD Plan continue PO Vancomycin day 11 with IV Flagyl (As discussed with Dr. Theodore since there is a lot of inflammation in the rectal area) to complete 10-14 days of antibiotics - stool for C. diff. is positive (antigen only, not toxin) overall prognosis is poor patient is DNR and DNI
[2018-01-21] MEDS: metroNIDAZOLE IV 500 mg/100 ml 500 MG/100 ML BAG IVPB SCH ×3 (05:12→21:55)
[2018-01-21 09:17] LABS: EOS % 0.3 % (1.5-5.0); GRAN # 6.05 (1.4-6.5); GRAN % 79.5 % (50.0-68.0); HEMOGLOBIN 10.8 g/dL (12.0-16.0); LYMPH # 1.2 (1.2-3.4); LYMPH % 15.2 % (22.0-35.0); MEAN CELL VOLUME 95.3 fl (80.0-105.0); MEAN CORPUSCULAR HEMOGLOBIN 29.8 pg (25.0-35.0); MEAN CORPUSCULAR HGB CONC 31.2 g/dl (31.0-37.0); MEAN PLATELET VOLUME 8.9 fl (7.0-11.0); MONO # 0.4 (0.1-0.6); RBC 3.63 10^6/uL (3.5-6.1); RED CELL DISTRIBUTION WIDTH 16.6 % (11.5-14.5); WHITE BLOOD COUNT 7.6 10^3/ul (4.5-11.0)
[2018-01-21] MEDS: Vancomycin 25 MG/ML PO SCH ×4 (09:35→21:55)
[2018-01-21 09:45] LABS: ALB/GLOB RATIO 0.6 (1.1-1.8); ALBUMIN 2.4 g/dL (3.0-4.8); CALCIUM 7.1 mg/dL (8.4-10.5)
--- NOTE | 2018-01-21 10:31 | PN ---
DATE: 01/21/2018 SUBJECTIVE: An 82-year-old female, receiving IV antibiotics by Infectious Disease for C. difficile infection. PHYSICAL EXAMINATION: VITAL SIGNS: She has a temp of 97.9, pulse is 71, blood pressure is 131/54, respiratory rate is 20, oxygen sat is 100%. GENERAL: She is alert and oriented. LUNGS: Show diminished breath sounds at the bases. HEART: An S1 and S2 rhythm. ABDOMEN: Soft, scaphoid, positive bowel sounds. EXTREMITIES: Show no evidence of edema. ASSESSMENT AND PLAN: The patient is scheduled for dialysis today. She has chronic renal disease. She has chronic anemia. She has hyperlipidemia. She is being followed by Nephrology and Infectious Disease and GI. The patient's chest x-ray shows vascular congestion with perihilar edema, moderate to large bilateral pleural effusions, unchanged findings. We will continue current level of care and follow recommendations by consultants. Shavonne Ascencio MD
--- NOTE | 2018-01-21 13:43 | CP.PCM.PN ---
<Micah Armenta - Last Filed: 01/21/18 13:39> Subjective - Date & Time of Evaluation Date of Evaluation: 01/21/18 Time of Evaluation: 13:40 - Subjective Subjective: Patient seen and examined. No acute events reported. patient with continued formed bloody bowel movements. Patient H/H stable Objective - Vital Signs/Intake and Output Vital Signs (last 24 hours): Temp Pulse Resp BP Pulse Ox 97.9 F 71 20 131/54 L 100 01/21/18 08:58 01/21/18 08:58 01/21/18 08:58 01/21/18 08:58 01/21/18 08:58 Intake and Output: 01/21/18 01/21/18 06:59 18:59 Intake Total 320 Balance 320 - Medications Medications: Current Medications Calcium Acetate (Phoslo) 667 mg PO WM [facility] Last Admin: 01/21/18 11:39 Dose: Not Given Metronidazole (Flagyl) 500 mg in 100 mls @ 100 mls/hr IVPB Q8 [facility]; Protocol Last Admin: 01/21/18 05:12 Dose: 100 mls/hr Pantoprazole Sodium (Protonix Inj) 40 mg IVP DAILY [facility] Last Admin: 01/21/18 09:35 Dose: 40 mg Vancomycin HCl (Vancocin 25 Mg/Ml (Oral Use)) 125 mg PO QID [facility]; Protocol Last Admin: 01/21/18 09:35 Dose: 125 mg - Labs Labs: 01/21/18 09:00 01/21/18 09:00 PT 12.9 SECONDS (9.4-12.5) H 01/15/18 21:20 INR 1.13 01/15/18 21:20 APTT 28.4 Seconds (25.1-36.5) 01/15/18 21:20 - Constitutional Appears: No Acute Distress, Chronically Ill - Head Exam Head Exam: ATRAUMATIC, NORMOCEPHALIC - Eye Exam Eye Exam: EOMI, PERRL Additional comments: conjunctival pallor - ENT Exam ENT Exam: Mucous Membranes Moist - Neck Exam Neck Exam: Full ROM - Respiratory Exam Respiratory Exam: Rales, NORMAL BREATHING PATTERN - Cardiovascular Exam Cardiovascular Exam: REGULAR RHYTHM - GI/Abdominal Exam GI & Abdominal Exam: Soft, Normal Bowel Sounds. absent: Tenderness - Extremities Exam Extremities Exam: Normal Inspection - Neurological Exam Neurological Exam: Alert, Awake Neuro motor strength exam: Left Upper Extremity: 5, Right Upper Extremity: 5, Left Lower Extremity: 5, Right Lower Extremity: 5 - Psychiatric Exam Psychiatric exam: Normal Affect, Normal Mood - Skin Skin Exam: Dry, Intact Assessment and Plan - Assessment and Plan (Free Text) Assessment: 82 year old female with past medical history of ischemic disease, HTN, HDL, ESRD on HD, DM2, hx of diverticulosis, hx of diverticulitis and CHF who is [facility] with report of lower GI bleed. Patient with continued bloody BM in the setting of stable H/H Plan: Colitis likely secondary to c. difficile Lower GI Bleed Hx of Divertiulosis/Diverticulitis Hx of C. Diff CAD CHF- systolic HTN DM2 ESRD on HD - Lower GI bleeding likely secondary to colitis, ab/pelvis CT reviewed and a ppreciated - s/p 2 units pRBCs 01/18/18. Continue to monitor Hb. - Transfuse pRBC with goal Hgb >7 - Bleeding Scan is negative - Diet advanced to soft diet - No plan for endoscopy at this time - Continue PO vanco and IV flagyl as per primary - Further recommendations per Dr. Theodore <Ysabel Theodore V - Last Filed: 01/21/18 19:31> Objective - Vital Signs/Intake and Output Vital Signs (last 24 hours): Temp Pulse Resp BP Pulse Ox 97.2 F L 49 L 18 144/40 L 94 L 01/21/18 17:49 01/21/18 17:49 01/21/18 17:49 01/21/18 17:49 01/21/18 17:49 Intake and Output: 01/21/18 01/22/18 18:59 06:59 Intake Total 840 Balance 840 - Medications Medications: Current Medications Calcium Acetate (Phoslo) 667 mg PO WM [facility] Last Admin: 01/21/18 17:13 Dose: 667 mg Metronidazole (Flagyl) 500 mg in 100 mls @ 100 mls/hr IVPB Q8 [facility]; Protocol Last Admin: 01/21/18 13:40 Dose: Not Given Pantoprazole Sodium (Protonix Inj) 40 mg IVP DAILY [facility] Last Admin: 01/21/18 09:35 Dose: 40 mg Vancomycin HCl (Vancocin 25 Mg/Ml (Oral Use)) 125 mg PO QID [facility]; Protocol Last Admin: 01/21/18 17:14 Dose: 125 mg - Labs Labs: 01/21/18 09:00 01/21/18 09:00 PT 12.9 SECONDS (9.4-12.5) H 01/15/18 21:20 INR 1.13 01/15/18 21:20 APTT 28.4 Seconds (25.1-36.5) 01/15/18 21:20 Attending/Attestation - Attestation I have personally seen and examined this patient.: Yes I have fully participated in the care of the patient.: Yes I have reviewed all pertinent clinical information, including history, physical exam and plan: Yes Notes (Text): This is an addendum to GI followup report dictated by the [employer]. The patient was seen and evaluated earlier. Medical records, lab studies, imagings were reviewed. Last 24 hours events reviewed. Agreed with the above treatment plan as outlined in [employer]er 's notes with the addition of the following Presently on IV flagyl and PO vanco Significant proctosigmoiditis secondary to c.diff Will advance the diet to puree food 01/21/18 19:30
--- NOTE | 2018-01-21 17:21 | PN ---
DATE: 01/21/2018 SUBJECTIVE: The patient is currently seen completing hemodialysis, 1.5 liters of fluid being removed. According to the staff in hemodialysis and the nursing staff on 3R, the patient has had no further GI bleeding over the last 18-24 hours. The patient is being treated for possible pseudomembranous colitis. Her hemoglobin has remained stable. She had a negative bleeding scan. She is status post a total of 2 units of packed red blood cells. At present, there are no plans for a sigmoidoscopy or colonoscopy. The patient remains on Flagyl and vancomycin therapy. MEDICATIONS: Medication list reviewed. The patient is currently on Flagyl, PhosLo, Protonix, and oral vancomycin. PHYSICAL EXAMINATION: INTAKE AND OUTPUT. Intake 1280, output not charted. VITAL SIGNS: Blood pressure is 131/54, temperature 97.9, respiratory rate 20 with a pulse of 71. HEENT: Shows her to be normocephalic, atraumatic. Conjunctivae remain pink. Sclerae nonicteric. NECK: Supple. No neck vein distention. CHEST: Clear to auscultation and percussion with no rales, rhonchi, or wheezing. CARDIOVASCULAR: Shows a regular rate and rhythm with MR/TR. No S3, no S4, no rub. ABDOMEN: Soft. Bowel sounds normal. No rebound, guarding, or masses. No lower quadrant tenderness on palpation. EXTREMITIES: Show no lower extremity edema. Cannulated left upper extremity AV fistula. LABORATORY DATA AND IMAGING: CBC today: White blood cell count 7.6, hemoglobin improved to 10.8 with a platelet count of 90,000. Chemistries today showed normal electrolytes. BUN 29 with a creatinine of 3.7. Calcium is 7.1. Albumin 2.4, calcium corrects to 8.4. Phosphorus is 5.3 with a magnesium of 1.8. Liver enzymes are normal. Albumin again is 2.4. Microbiology: All cultures are negative at 4 days. Blood bank, the patient has received a total of 2 units of packed red blood cells. ASSESSMENT: 1. End-stage renal disease. The patient will continue Sunday, Sunday, Sunday dialysis. The patient is currently a resident at [facility] and upon discharge will likely return to [facility]. The patient is receiving no heparin on dialysis because of her gastrointestinal bleeding. 2. History of lower tract gastrointestinal bleeding with possible proctitis/sigmoid inflammation. Possible pseudomembranous colitis. The patient apparently had a positive antigen for Clostridium difficile, but negative toxin as per Infectious Disease note. The patient will continue conservative medical therapy. No plans for colonoscopy or sigmoidoscopy. 3. History of congestive heart failure with valvular heart disease, mitral regurgitation/tricuspid regurgitation. Ejection fraction 25%. 4. Hemodynamics during present hospitalization appear to be stable. 5. History of hypertension. The patient is normotensive off blood pressure medications. 6. Past history of pseudomembranous colitis with possible recurrence. The patient will complete course of Flagyl and vancomycin as noted above by ID. 7. History of pulmonary hypertension, stable. 8. History of secondary hyperparathyroidism. Phosphorus level slightly higher at 5.3 with a calcium of 7.1. The patient will continue binder therapy with PhosLo and a renal diet. 9. Do not resuscitate/do not intubate noted. PLAN: 1. Continue hemodialysis three times a week. 2. Continue to monitor hemoglobin on a regular basis. 3. Continue ID and GI followup. 4. Anticipate that once stabilize, the patient will likely be transferred back to [facility] and she will receive dialysis at their facility. Buck Yanes MD
[2018-01-21 17:52] VITALS: RESP 18
--- NOTE | 2018-01-21 21:15 | CP.PCM.PN ---
Subjective - Date & Time of Evaluation Date of Evaluation: 01/21/18 Time of Evaluation: 11:05 - Subjective Subjective: No diarrhea, no fevers, no abdominal pain, no nausea. Objective - Vital Signs/Intake and Output Vital Signs (last 24 hours): Temp Pulse Resp BP Pulse Ox 97.2 F L 49 L 18 144/40 L 94 L 01/21/18 17:49 01/21/18 17:49 01/21/18 17:49 01/21/18 17:49 01/21/18 17:49 Intake and Output: 01/21/18 01/22/18 18:59 06:59 Intake Total 840 Balance 840 - Medications Medications: Current Medications Calcium Acetate (Phoslo) 667 mg PO WM [facility] Last Admin: 01/21/18 17:13 Dose: 667 mg Metronidazole (Flagyl) 500 mg in 100 mls @ 100 mls/hr IVPB Q8 RUTHANN; Protocol Last Admin: 01/21/18 13:40 Dose: Not Given Pantoprazole Sodium (Protonix Inj) 40 mg IVP DAILY [facility] Last Admin: 01/21/18 09:35 Dose: 40 mg Vancomycin HCl (Vancocin 25 Mg/Ml (Oral Use)) 125 mg PO QID [facility]; Protocol Last Admin: 01/21/18 17:14 Dose: 125 mg - Labs Labs: 01/21/18 09:00 01/21/18 09:00 PT 12.9 SECONDS (9.4-12.5) H 01/15/18 21:20 INR 1.13 01/15/18 21:20 APTT 28.4 Seconds (25.1-36.5) 01/15/18 21:20 - Constitutional Appears: No Acute Distress, Cachectic, Chronically Ill - Head Exam Head Exam: NORMAL INSPECTION - Respiratory Exam Respiratory Exam: Decreased Breath Sounds - Cardiovascular Exam Cardiovascular Exam: +S1, +S2 - GI/Abdominal Exam GI & Abdominal Exam: Soft. absent: Tenderness Assessment and Plan - Assessment and Plan (Free Text) Plan: Assessment c. diff. associated diarrhea, clinically improving lower GI bleed, etiology to be determined history of systemic inflammatory response syndrome with encephalopathy, R/O CO2 narcosis with fluid overload, S/P treatment for severe sepsis from HCAP history of left perineal abscess S/P I and D, grew MRSA and Klebsiella - now still with residual skin and skin structure infection, growing MSSA and E. coli history of sepsis due to E. 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 diff. associated diarrhea S/P severe sepsis with acute sigmoid diverticulitis and acute cholecystitis history of acute NSTEMI history of sepsis due to acute descending colon diverticulitis and bilateral lobe healthcare-associated pneumonia history of healthcare-associated pneumonia (right upper lobe, bilateral lower l obes) HTN DM CAD with chronic CHF ESRD on HD Plan continue PO Vancomycin day 12 with IV Flagyl (As discussed with Dr. Theodore since there is a lot of inflammation in the rectal area) to complete 10-14 days of antibiotics - stool for C. diff. is positive (antigen only, not toxin) overall prognosis is poor patient is DNR and DNI
[2018-01-22] MEDS: metroNIDAZOLE IV 500 mg/100 ml 500 MG/100 ML BAG IVPB SCH ×3 (05:09→17:03)
[2018-01-22 07:14] LABS: GRAN # 4.18 (1.4-6.5); HEMOGLOBIN 10.2 g/dL (12.0-16.0); LYMPH # 0.9 (1.2-3.4); LYMPH % 16.9 % (22.0-35.0); MEAN CELL VOLUME 94.6 fl (80.0-105.0); MEAN CORPUSCULAR HEMOGLOBIN 29.1 pg (25.0-35.0); MEAN CORPUSCULAR HGB CONC 30.8 g/dl (31.0-37.0); MEAN PLATELET VOLUME 8.6 fl (7.0-11.0); MONO # 0.3 (0.1-0.6); MONO % 6.1 % (1.0-6.0); RBC 3.5 10^6/uL (3.5-6.1); RED CELL DISTRIBUTION WIDTH 16.8 % (11.5-14.5); WHITE BLOOD COUNT 5.4 10^3/ul (4.5-11.0)
[2018-01-22 07:25] LABS: ALB/GLOB RATIO 0.6 (1.1-1.8); ALBUMIN 2.4 g/dL (3.0-4.8); CALCIUM 7.4 mg/dL (8.4-10.5)
[2018-01-22] MEDS: Vancomycin 25 MG/ML PO SCH ×3 (10:06→17:42)
--- NOTE | 2018-01-22 12:46 | CP.PCM.PN ---
Subjective - Date & Time of Evaluation Date of Evaluation: 01/22/18 Time of Evaluation: 11:45 - Subjective Subjective: Afebrile, no fevers, not in distress. No abdominal pain, no diarrhea. Objective - Vital Signs/Intake and Output Vital Signs (last 24 hours): Temp Pulse Resp BP Pulse Ox 98.3 F 44 L 18 142/45 L 100 01/22/18 09:14 01/22/18 09:14 01/22/18 09:14 01/22/18 09:14 01/22/18 09:14 Intake and Output: 01/22/18 01/22/18 06:59 18:59 Intake Total 1060 Output Total 0 Balance 1060 - Medications Medications: Current Medications Calcium Acetate (Phoslo) 667 mg PO WM [facility] Last Admin: 01/21/18 17:13 Dose: 667 mg Metronidazole (Flagyl) 500 mg in 100 mls @ 100 mls/hr IVPB Q8 RUTHANN; Protocol Last Admin: 01/22/18 05:09 Dose: 100 mls/hr Pantoprazole Sodium (Protonix Inj) 40 mg IVP DAILY [facility] Last Admin: 01/21/18 09:35 Dose: 40 mg Vancomycin HCl (Vancocin 25 Mg/Ml (Oral Use)) 125 mg PO QID [facility]ANN; Protocol Last Admin: 01/21/18 21:55 Dose: 125 mg - Labs Labs: 01/22/18 06:50 01/22/18 06:50 PT 12.9 SECONDS (9.4-12.5) H 01/15/18 21:20 INR 1.13 01/15/18 21:20 APTT 28.4 Seconds (25.1-36.5) 01/15/18 21:20 - Constitutional Appears: No Acute Distress, Cachectic, Chronically Ill - Head Exam Head Exam: NORMAL INSPECTION - Respiratory Exam Respiratory Exam: Decreased Breath Sounds - Cardiovascular Exam Cardiovascular Exam: +S1, +S2 - GI/Abdominal Exam GI & Abdominal Exam: Soft. absent: Tenderness Assessment and Plan - Assessment and Plan (Free Text) Plan: Assessment c. diff. associated diarrhea, clinically improving lower GI bleed, etiology to be determined history of systemic inflammatory response syndrome with encephalopathy, R/O CO2 narcosis with fluid overload, S/P treatment for severe sepsis from HCAP history of left perineal abscess S/P I and D, grew MRSA and Klebsiella - now still with residual skin and skin structure infection, growing MSSA and E. coli history of sepsis due to E. 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 diff. associated diarrhea S/P severe sepsis with acute sigmoid diverticulitis and acute cholecystitis history of acute NSTEMI history of sepsis due to acute descending colon diverticulitis and bilateral lobe healthcare-associated pneumonia history of healthcare-associated pneumonia (right upper lobe, bilateral lower lobes) HTN DM CAD with chronic CHF ESRD on HD Plan continue PO Vancomycin day 13 with IV Flagyl (As discussed with Dr. Theodore since there is a lot of inflammation in the rectal area) to complete 14 days of antibiotics - stool for C. diff. is positive (antigen only, not toxin) overall prognosis is poor patient is DNR and DNI
--- NOTE | 2018-01-22 13:58 | PN ---
DATE: 01/22/2018 SUBJECTIVE: An 82-year-old female resting in bed this morning. Nursing staff relates that there were no particular problems. The patient had dialysis yesterday. She is status post 2 units of packed red blood cells. She has a history of current C difficile infection with proctosigmoiditis and bloody bowel movements. VITAL SIGNS: GENERAL: She is awake and alert and oriented. VITAL SIGNS: She has a temperature of 97.2, pulses 70 and her blood pressure is 144/40. LUNGS: Show diminished breath sounds at the bases with rhonchi. HEART: S1, S2. ABDOMEN: Soft with positive bowel sounds. EXTREMITIES: Show no evidence of edema. ASSESSMENT AND PLAN: The patient is receiving IV antibiotics by Infectious Disease and Flagyl with vancomycin, also being followed by Gastrointestinal. She is on intravenous proton pump inhibitors and she is on PhosLo. She will continue her on intravenous antibiotics as per the recommendations of Infectious Disease. Her platelet count is dropped and will follow up her CBC and platelet count. Her hemoglobin is now 10.2 and . She continued to be followed by Gastrointestinal, Infectious Disease and Renal. She has a living will. She is a DNR/DNI. Shavonne Ascencio MD
--- NOTE | 2018-01-22 16:50 | PN ---
DATE: 01/22/2018 SUBJECTIVE: The patient is currently seen with her son in the room. She has no complaints. She has no further GI bleeding. She states her bowels have returned to normal. No abdominal pain. She tolerated yesterday's dialysis well, 1.5 L of fluid removed. The patient is status post a total of 2 units of packed red blood cells for her GI bleeding. Her hemoglobin is stable in the 10 to 11 range. The patient is possibly going to be discharged later today back to [facility] where she lives. MEDICATIONS: Medication list reviewed. The patient is currently on IV Flagyl, PhosLo, Protonix, and oral vancomycin. OBJECTIVE: INTAKE/OUTPUT: Intake is 1280, output is 1500 with dialysis. VITAL SIGNS: Blood pressure 142/45, temperature 98.3, respiratory rate 18 with a pulse of 44. HEENT: Exam shows her to be normocephalic, atraumatic. Conjunctivae are pink. Sclerae nonicteric. NECK: Supple. No neck vein distention. CHEST: Clear to auscultation and percussion. No rales, rhonchi, or wheezing. CARDIOVASCULAR: Shows a regular rate and rhythm with MR/TR. No S3, no S4, no rub. ABDOMEN: Soft. Bowel sounds normal. No rebound, guarding, or masses. No lower quadrant tenderness on palpation. EXTREMITIES: Show no lower extremity edema. She has a left upper extremity AV fistula. Positive thrill. Positive bruit. LABORATORY DATA AND IMAGING: CBC: White blood cell count today 5.4, hemoglobin stable 10.2, and platelet count is 77,000. Chemistry showed normal electrolytes today. BUN 17, creatinine 2.6, this being the day post dialysis. Calcium level was 7.4. Phosphorus is improved at 4.2. Magnesium is 1.8. Liver enzymes are normal. Albumin remains low at 2.4. Microbiology: Blood cultures are negative at 5 days. Repeat C. diff studies were not sent during present hospitalization. ASSESSMENT: 1. End-stage renal disease. The patient will continue Sunday, Sunday, and Sunday dialysis. Should she be discharged home back to [facility] later today. She will receive dialysis at [facility] tomorrow. 2. Status post lower gastrointestinal bleeding secondary to possible pseudomembranous colitis, proctitis, and sigmoid inflammation. This has resolved. No plans for colonoscopy or sigmoidoscopy. 3. History of congestive heart failure with valvular heart disease, mitral regurgitation/tricuspid regurgitation. Ejection fraction is 25%. 4. Hemodynamics are stable post gastrointestinal bleeding. 5. History of hypertension. Patient remains normotensive off blood pressure medications. 6. History of recent pseudomembranous colitis. The patient will continue appropriate antibiotic therapy under the advice and guidance of Infectious Disease and GI. It might be difficult for her to receive IV Flagyl in the intermediate. Perhaps discharge home on oral vancomycin alone. 7. Pulmonary hypertension, stable. 8. History of secondary hyperparathyroidism. Calcium and phosphorus levels are controlled. The patient will continue binder therapy and a renal diet. 9. Do not resuscitate/do not intubate noted. PLAN: 1. Discussed with staff on . Possible discharge home later today. 2. Discharge plan with Infectious Disease and GI regarding continuation of antibiotic therapy for C. diff colitis. 3. Next hemodialysis will be likely in the outpatient setting in [facility] tomorrow on 01/23/2018. Buck Yanes MD
[2018-01-22 18:46] VITALS: BP 130/40; PULSE 46; TEMP 98.2; O2SAT 98
== END 2018-01-22 19:49 | DRG 371 ==
LOC: ED 20:21 → ERH 01-16 00:49 → 2RSO 01-16 02:00 → OBSVTOIN 01-16 11:01 → ICU 01-16 11:28 → 3RSO 01-17 15:54
PROVIDERS: ADMIT Internal Medicine; ATTEND Internal Medicine
PROC: 5A1D70Z Performance of Urinary Filtration, Intermittent, Less than 6 Hours Per Day (ICD-10-PCS; principal; 2018-01-16)
PROC: 5A1D70Z Performance of Urinary Filtration, Intermittent, Less than 6 Hours Per Day (ICD-10-PCS; 2018-01-18)
PROC: 30233N1 Transfusion of Nonautologous Red Blood Cells into Peripheral Vein, Percutaneous Approach (ICD-10-PCS; 2018-01-18)
PROC: 5A1D70Z Performance of Urinary Filtration, Intermittent, Less than 6 Hours Per Day (ICD-10-PCS; 2018-01-21)
DX: A04.72 Enterocolitis due to Clostridium difficile, not specified as recurrent (principal); N18.6 End stage renal disease; K92.2 Gastrointestinal hemorrhage, unspecified; I50.22 Chronic systolic (congestive) heart failure; I13.2 Hypertensive heart and chronic kidney disease with heart failure and with stage 5 chronic kidney disease, or end stage renal disease; N25.81 Secondary hyperparathyroidism of renal origin; I42.9 Cardiomyopathy, unspecified; E46 Unspecified protein-calorie malnutrition; K92.1 Melena; D62 Acute posthemorrhagic anemia; E11.51 Type 2 diabetes mellitus with diabetic peripheral angiopathy without gangrene; J44.9 Chronic obstructive pulmonary disease, unspecified; Z87.01 Personal history of pneumonia (recurrent); Z99.2 Dependence on renal dialysis; M06.9 Rheumatoid arthritis, unspecified; E11.22 Type 2 diabetes mellitus with diabetic chronic kidney disease; K57.90 Diverticulosis of intestine, part unspecified, without perforation or abscess without bleeding; I25.10 Atherosclerotic heart disease of native coronary artery without angina pectoris; R09.02 Hypoxemia; E03.9 Hypothyroidism, unspecified; I48.0 Paroxysmal atrial fibrillation; D63.1 Anemia in chronic kidney disease; E87.6 Hypokalemia; I49.8 Other specified cardiac arrhythmias; K64.9 Unspecified hemorrhoids; E11.59 Type 2 diabetes mellitus with other circulatory complications; E78.5 Hyperlipidemia, unspecified; I08.1 Rheumatic disorders of both mitral and tricuspid valves; I25.2 Old myocardial infarction; I27.20 Pulmonary hypertension, unspecified; K21.9 Gastro-esophageal reflux disease without esophagitis; K59.00 Constipation, unspecified; K80.20 Calculus of gallbladder without cholecystitis without obstruction; I44.7 Left bundle-branch block, unspecified; Z66 Do not resuscitate; Z79.4 Long term (current) use of insulin; Z86.19 Personal history of other infectious and parasitic diseases; Z90.710 Acquired absence of both cervix and uterus; Z95.5 Presence of coronary angioplasty implant and graft; Z96.642 Presence of left artificial hip joint; Z98.42 Cataract extraction status, left eye; Z98.41 Cataract extraction status, right eye

== ENCOUNTER 2018-01-31 20:19 | Emergency (ER) | payer MEDICARE, MEDICAID ==
[2018-01-31 20:28] VITALS: BMI 22.6
[2018-01-31 20:32] VITALS: RESP 18; TEMP 98
--- NOTE | 2018-01-31 21:39 | ED PDOC ---
Arrival/HPI - General Chief Complaint: Abnormal Labs Time Seen by Provider: 01/31/18 21:16 Historian: Custodial - History of Present Illness Narrative History of Present Illness (Text): 01/31/18 21:30 A 82 year old female, whose past medical history includes CHF, end stage renal disease, hypertension, diabetes, Dialysis, and heart dialysis, presents to the emergency department sent by long-term for hemoglobin count of 6.4. Patient's ros and hpi is limited due to patient being a poor historian, however, nurse was able to ask a few questions Patient denies any fever, chills, shortness of breath, chest pain, diarrhea, nausea, vomiting, urinary symptoms, back pain, neck pain, headache, dizziness, or any other complaints. PMD: Dr. Huston Time/Duration: Other (earlier today) Symptom Onset: Gradual Symptom Course: Unchanged Activities at Onset: Light Context: Other (residential) Past Medical History - Provider Review Nursing Documentation Reviewed: Yes - Past History Past History: No Previous - Infectious Disease Hx of Infectious Diseases: None - Tetanus Immunization Tetanus Immunization: Unknown - Cardiac Hx Cardiac Disorders: Yes (carotid disease) Hx Angina: Yes Hx Congestive Heart Failure: Yes Hx Hypertension: Yes Hx Peripheral Vascular Disease: Yes Other/Comment: numbness tingling left leg left foot - Pulmonary Hx Respiratory Disorders: Yes Hx Chronic Obstructive Pulmonary Disease (COPD): Yes Hx Pneumonia: Yes - Neurological Hx Neurological Disorder: Yes (numbnes/tingling left leg and ft) Hx Dizziness: Yes - HEENT Hx HEENT Disorder: Yes Hx Cataracts: Yes (b/l sx) - Renal Hx Renal Disorder: Yes Hx Dialysis: Yes ([facility] m/w/f/sat) Other/Comment: Left upper arm shunt - Endocrine/Metabolic Hx Endocrine Disorders: Yes Hx Diabetes Mellitus Type 2: Yes Hx Hypothyroidism: Yes - Hematological/Oncological Hx Blood Disorders: Yes (sepsis) Hx Anemia: Yes - Integumentary Hx Dermatological Disorder: No Other/Comment: L arm shunt has dsg, excellent bruit at site, 1.5cm x 1.5cm scab to anterior right ankle and 1.5cm x 1.5cm scab to outer right foot, dry skin to both feet, dry thin skin with multiple skin discoloratins both arms, multiple age spots and moles to face, thick hard toenails, multiple skin discolorations ble and dry skin covered with optifoam - Musculoskeletal/Rheumatological Hx Musculoskeletal Disorders: Yes (rheumatoid arthritis) Hx Arthritis: Yes Hx Back Pain: Yes Hx Falls: Yes (past) Hx Fractures: Yes (left hip) Hx Unsteady Gait: Yes (cane) - Gastrointestinal Hx Gastrointestinal Disorders: Yes (c diff 01/10/18) Hx Diverticulitis: Yes (& diverticulosis) Hx Gastroesophageal Reflux: Yes Other/Comment: poor appetite, abd pain, nausea, vomiting, gi bleed - Genitourinary/Gynecological Hx Genitourinary Disorders: Yes (VRE IN THE URINE.[email or web address].ESRD ON HD) - Psychiatric Hx Psychophysiologic Disorder: Yes Hx Anxiety: Yes Hx Depression: Yes Hx Substance Use: No - Surgical History Hx Cardiac Catheterization: Yes Hx Coronary Stent: Yes Other/Comment: left hip replacement, b/l cataract sxleft arm av shunt - Anesthesia Hx Anesthesia: Yes Hx Anesthesia Reactions: No Hx Malignant Hyperthermia: No - Suicidal Assessment Feels Threatened In Home Enviroment: No Family/Social History - Physician Review Nursing Documentation Reviewed: Yes Family/Social History: Unknown Family HX Smoking Status: Unknown If Ever Smoked Hx Alcohol Use: No Hx Substance Use: No Hx Substance Use Treatment: No Allergies/Home Meds Allergies/Adverse Reactions: Allergies ceftriaxone Allergy (Verified 01/04/18 10:39) ITCHING Review of Systems - Physician Review All systems were reviewed & negative as marked: Yes - Review of Systems Constitutional: absent: Fevers, Night Sweats Respiratory: absent: SOB Cardiovascular: absent: Chest Pain Gastrointestinal: absent: Diarrhea, Nausea, Vomiting Genitourinary Female: absent: Urine Output Changes Musculoskeletal: absent: Back Pain, Neck Pain Neurological: absent: Headache, Dizziness Physical Exam Vital Signs Reviewed: Yes Vital Signs Temp Pulse Resp BP Pulse Ox 01/31/18 20:28 98 F 45 L 18 131/45 L 100 Temperature: Afebrile Blood Pressure: Hypotensive Pulse: Bradycardic Respiratory Rate: Normal Appearance: Positive for: Well-Appearing, Non-Toxic, Comfortable Pain Distress: None Mental Status: Positive for: Alert and Oriented X 3 - Systems Exam Head: Present: Atraumatic, Normocephalic Pupils: Present: PERRL Extroacular Muscles: Present: EOMI Conjunctiva: Present: Normal. No: Icteric, Other (no pallor) Mouth: Present: Moist Mucous Membranes Neck: Present: Normal Range of Motion Respiratory/Chest: Present: Clear to Auscultation, Good Air Exchange. No: Respiratory Distress, Accessory Muscle Use Cardiovascular: Present: Regular Rate and Rhythm, Normal S1, S2. No: Murmurs Abdomen: No: Tenderness, Distention, Peritoneal Signs Back: Present: Normal Inspection Upper Extremity: Present: Other (+left AV shunt w/+ thrill) Lower Extremity: Present: Edema (+1 edema bilaterally), Normal ROM. No: CALF TENDERNESS, Tenderness Neurological: Present: GCS=15, CN II-XII Intact, Speech Normal Skin: Present: Warm, Dry, Normal Color. No: Rashes Psychiatric: Present: Alert, Oriented x 3, Normal Insight, Normal Concentration Medical Decision Making ED Course and Treatment: 01/31/18 21:35 Impression: 82 year old presenting to the emergency department for low hemoglobin count. Plan: -- Type and screen -- EKG -- Labs -- Chest X-ray -- Reassess and disposition Prior Visits: Notes and results from previous visits were reviewed. Progress Notes: 01/31/18 23:[address] Shavonne Ascencio, primary care doctor, who was informed of patient's BNP of 2300, hemoglobin count of 9.2, CHF on Chest X-ray and guaiac is negative. Dr. Ascencio provides patient has chronic bilateral effusions, diffusion w/proctitis and rectal bleeding and patient was on antibiotics in long-term. Dr. Ascencio will call Dr. Huston to see if he will admit overnight or send patient to long-term. 01/31/18 23:[address] Huston who advises since patient's hemoglobin is 9.2, patient can be discharged and returned to long-term. - Scribe Statement The provider has reviewed the documentation as recorded by the Kyle Marcus All medical record entries made by the Scribe were at my direction and personally dictated by me. I have reviewed the chart and agree that the record accurately reflects my personal performance of the history, physical exam, medical decision making, and the department course for this patient. I have also personally directed, reviewed, and agree with the discharge instructions and disposition. Disposition/Present on Arrival - Present on Arrival Any Indicators Present on Arrival: Yes History of DVT/PE: No History of Uncontrolled Diabetes: No Urinary Catheter: No History of Decub. Ulcer: Yes History Surgical Site Infection Following: None - Disposition Have Diagnosis and Disposition been Completed?: Yes Diagnosis: Anemia, ESRD (end stage renal disease) on dialysis, Congestive heart failure Disposition: HOME/ ROUTINE Disposition Time: 23:47 Patient Plan: Discharge Condition: STABLE Discharge Instructions (ExitCare): Anemia of Chronic Disease (DC), End Stage Kidney Disease (DC), Heart Failure (ED) Referrals: Chaim Huston DO [Primary Care Provider] - Follow up with primary Forms: [employer] (Kinyarwanda)
[2018-01-31 22:09] LABS: EOS % 0.7 % (1.5-5.0); GRAN # 3.14 (1.4-6.5); GRAN % 68.9 % (50.0-68.0); HEMOGLOBIN 9.2 g/dL (12.0-16.0); LYMPH % 22.9 % (22.0-35.0); MEAN CORPUSCULAR HEMOGLOBIN 30.4 pg (25.0-35.0); MEAN CORPUSCULAR HGB CONC 30.7 g/dl (31.0-37.0); MEAN PLATELET VOLUME 10.2 fl (7.0-11.0); MONO # 0.3 (0.1-0.6); MONO % 7.5 % (1.0-6.0); RBC 3.03 10^6/uL (3.5-6.1); RED CELL DISTRIBUTION WIDTH 17.9 % (11.5-14.5); WHITE BLOOD COUNT 4.6 10^3/ul (4.5-11.0)
[2018-01-31 22:15] LABS: INR 1.13; PARTIAL THROMBOPLASTIN TIME 34.5 Seconds (25.1-36.5); PROTHROMBIN TIME 12.9 SECONDS (9.4-12.5)
[2018-01-31 22:27] LABS: ALB/GLOB RATIO 0.6 (1.1-1.8); ALBUMIN 2.8 g/dL (3.0-4.8); ALT/SGPT 16 U/L (7-56); AST/SGOT 19 U/L (14-36); BLOOD UREA NITROGEN 22 mg/dL (7-21); CALCIUM 7.6 mg/dL (8.4-10.5); GFR NON-AFRICAN AMERICAN 14
[2018-01-31 23:17] LABS: B-TYPE NATRIURETIC PEPTIDE 235000 pg/mL (0-450)
[2018-02-01 00:01] VITALS: BP 128/40; PULSE 67
[2018-02-01 01:25] VITALS: O2SAT 96
--- NOTE | 2018-02-01 10:08 | RAD ---
Date of service: 01/31/2018 HISTORY: chf COMPARISON: 01/20/2018 FINDINGS: LUNGS: There is pulmonary edema with large bilateral pleural effusions. Findings are unchanged PLEURA: No significant pleural effusion identified, no pneumothorax apparent. CARDIOVASCULAR: Aortic calcifications are seen Moderate cardiomegaly OSSEOUS STRUCTURES: No significant abnormalities. VISUALIZED UPPER ABDOMEN: Normal. OTHER FINDINGS: None. IMPRESSION: There is pulmonary edema with large bilateral pleural effusions. Findings are unchanged
--- NOTE | 2018-02-01 10:10 | CARD ---
APPROVED REPORT Date of service: 01/31/2018 EKG Measurement Heart [id number] MD [id number] <Conclusion> Sinus rhythm with 1st degree AV block with premature atrial complexes with aberrant conduction Anterior infarct, age undetermined ST & T wave abnormality, consider lateral ischemia Abnormal ECG
== END 2018-02-01 01:23 | disposition home or self-care (01) ==
LOC: ED 20:19
DX: D64.9 Anemia, unspecified (principal); I12.0 Hypertensive chronic kidney disease with stage 5 chronic kidney disease or end stage renal disease; N18.6 End stage renal disease; Z99.2 Dependence on renal dialysis; I50.9 Heart failure, unspecified; E11.9 Type 2 diabetes mellitus without complications; E03.9 Hypothyroidism, unspecified; J44.9 Chronic obstructive pulmonary disease, unspecified